=== PATIENT | female | born 1995 | race Caucasian/White ===

== ENCOUNTER 2022-11-15 11:16 | Outpatient (OUT) | payer OTHER, SELFPAY ==
--- NOTE | 2022-11-15 11:20 | US_ITS ---
The [address] [address] Patient Name: KRISSY LOPEZ MRN: [id number] date: 1995 Sex: F Assigned Patient Location: US Current Patient Location: US Accession/Order Number: [id number] Exam Date: 11/15/2022 11:25 Report Date: 11/19/2022 07:22 At the request of: MARY MARIE Procedure: US pelvis w/ transvaginal EXAMINATION: US pelvis w/ transvaginal HISTORY: Patient desires Z31.9 COMPARISON: No relevant comparison available. FINDINGS: The uterus is normal in size, contour and myometrial echotexture measuring 9.7 x 5.0 x 5.8 cm. Anteverted. No focal myometrial mass The endometrium measures 7 mm. Multiple dilated vessels identified in the left adnexa The right ovary measures 3.1 x 2.2 x 2.7 cm. Normal color and Doppler flow. Multiple subcentimeter areas of anechoic echogenicity distributed peripherally. Area of hypoechogenicity measuring 1.9 cm possibly a functional cyst The left ovary measures 3.2 x 2.7 x 1.9 cm. Normal color and Doppler flow. Multiple subcentimeter areas of anechoic echogenicity US/US pelvis w/ transvaginal IMPRESSION: Dilated left periuterine vessels consider uterine vein reflux/pelvic congestion syndrome Polycystic ovarian morphology Electronically authenticated by: HAMMAD FRAZIER Date: 11/19/2022 07:22
[2022-11-15 13:14] LABS: Estimated Average Glucose 97 mg/dL
[2022-11-15 13:21] LABS: Basophils Percent Auto 0.6 % (0.2-2.0); Eosinophils Absolute Auto 0.3 10^3/uL (0.0-0.7); Eosinophils Percent Auto 4.6 % (0.9-7.0); Hematocrit 36.5 % (36.0-48.0); Hemoglobin 12.1 g/dL (12.0-16.0); Immature Granulocytes Abs Auto 0.01 10^3/uL (0.00-0.03); Immature Granulocytes Pct Auto 0.2 % (0.0-0.5); Lymphocytes Absolute Auto 1.5 10^3/uL (1.2-3.8); Lymphocytes Percent Auto 28.2 % (20.5-60.0); Mean Corpuscular HGB Conc 33.2 g/dL (29.9-35.2); Mean Corpuscular Hemoglobin 27.3 pg (26.7-34.0); Mean Corpuscular Volume 82.4 fL (81.0-99.0); Mean Platelet Volume 9.9 fL (9.5-13.5); Monocytes Absolute Auto 0.7 10^3/uL (0.3-0.8); Monocytes Percent Auto 12.2 % (1.7-12.0); Neutrophils Absolute Auto 2.9 10^3/uL (1.4-6.5); Neutrophils Percent Auto 54.2 % (43.0-75.0); Platelet Count 286 10^3/uL (150-450); Red Blood Count 4.43 10^6/uL (4.20-5.40); Red Cell Distribution Width 13.2 % (11.0-15.0); White Blood Count 5.4 10^3/uL (4.0-11.0)
[2022-11-15 13:29] LABS: Free T4 0.84 ng/dL (0.76-1.46)
[2022-11-15 13:33] LABS: Thyroid Stimulating Hormone 4.621 uIU/mL (0.358-3.740)
[2022-11-17 12:07] LABS: Protein C-Functional 68 % (73-180); Protein S, Free 73 % (61-136); Protein S, Total 65 % (60-150)
== END 2022-11-15 11:17 | disposition home or self-care (01) ==
LOC: US 11:16
PROVIDERS: PCP Family Medicine; Visit Provider Obstetrics & Gynecology
DX: Z31.9 Encounter for procreative management, unspecified (principal)
CPT/HCPCS: 36415; 76830; 76856; 81241; 83036; 84155; 84439; 84443; 85025; 85300; 85301; 85303; 85305; 85306; 85613; 86146; 86147

== ENCOUNTER 2022-11-28 11:00 | Outpatient (RCR) | payer OTHER, SELFPAY ==
[2022-11-28 11:36] LABS: HCG Quantitative 572 mIU/mL
== END 2022-12-02 23:59 | disposition home or self-care (01) ==
LOC: LAB 11:00
PROVIDERS: PCP Family Medicine; Visit Provider Obstetrics & Gynecology
DX: N92.6 Irregular menstruation, unspecified (principal)
CPT/HCPCS: 36415; 84702

== ENCOUNTER 2022-12-04 12:17 | Outpatient (RCR) | payer OTHER, SELFPAY ==
[2022-12-04 13:48] LABS: HCG Quantitative 6386 mIU/mL
== END 2023-01-02 17:50 | disposition home or self-care (01) ==
LOC: LAB 12:17
PROVIDERS: PCP Family Medicine; Visit Provider Obstetrics & Gynecology
DX: Z01.419 Encounter for gynecological examination (general) (routine) without abnormal findings (principal); N92.6 Irregular menstruation, unspecified
CPT/HCPCS: 36415; 84702; G0145

== ENCOUNTER 2022-12-04 21:09 | Outpatient (REF) | payer OTHER, SELFPAY ==
[2022-12-10 15:10] LABS: Age Gdln ACOG Testing Note (.); IGP, rfx Aptima HPV ASCU Note (.)
== END 2022-12-04 21:10 | disposition home or self-care (01) ==
LOC: LAB 21:09
PROVIDERS: PCP Family Medicine; Visit Provider Obstetrics & Gynecology
DX: Z01.419 Encounter for gynecological examination (general) (routine) without abnormal findings (principal)
CPT/HCPCS: G0145

== ENCOUNTER 2023-01-03 11:14 | Outpatient (OUT) | payer OTHER, SELFPAY ==
--- NOTE | 2023-01-03 11:17 | US_ITS ---
[address] [address] Patient Name: KRISSY LOPEZ MRN: [id number] date: 1995 Sex: F Assigned Patient Location: US Current Patient Location: Accession/Order Number: [id number] Exam Date: 01/03/2023 11:34 Report Date: 01/04/2023 09:05 At the request of: MARY MARIE Procedure: US OB transvaginal PROCEDURE: US OB transvaginal HISTORY: Missed menses N92.6 COMPARISON: None. TECHNIQUE: Transabdominal sonographic examination was performed for obstetrical and evaluation. FINDINGS: Heart Rate: 175.3 bpm Number: 1.0 Gestational sac: 3.99 cm, 9 weeks 2 days CRL: 2.2 cm, 9 weeks 4 days Yolk sac: 3.8 mm The uterus is normal, anteverted The ovaries are normal in appearance Cervix: 4.1 cm, closed GESTATIONAL AGE: Clinical Age (by LMP): 9 weeks 6 days Clinical ADNE: 08/02/2023 Ultrasound Age: 9 weeks 4 days Ultrasound ADEN: 08/04/2023 US/US OB transvaginal IMPRESSION: Viable yepez intrauterine gestation measuring 9 weeks 4 days *Reference: [facility] Practice Guideline for the performance of Obstetric Ultrasound Examinations, February 02, 2007. Electronically authenticated by: HAMMAD FRAZIER Date: 01/04/2023 09:05
== END 2023-01-03 11:15 | disposition home or self-care (01) ==
LOC: US 11:14
PROVIDERS: PCP Family Medicine; Visit Provider Obstetrics & Gynecology
DX: Z34.91 Encounter for supervision of normal pregnancy, unspecified, first trimester (principal); N92.6 Irregular menstruation, unspecified
CPT/HCPCS: 76817

== ENCOUNTER 2023-02-05 09:29 | Outpatient (OUT) | payer OTHER, SELFPAY ==
[2023-02-05 09:59] LABS: BOX Test Sent Out Y
[2023-02-05 10:01] LABS: Basophils Percent Auto 0.4 % (0.2-2.0); Eosinophils Absolute Auto 0.2 10^3/uL (0.0-0.7); Eosinophils Percent Auto 2.8 % (0.9-7.0); Hematocrit 31.3 % (36.0-48.0); Hemoglobin 10.2 g/dL (12.0-16.0); Immature Granulocytes Abs Auto 0.02 10^3/uL (0.00-0.03); Immature Granulocytes Pct Auto 0.3 % (0.0-0.5); Lymphocytes Absolute Auto 1.5 10^3/uL (1.2-3.8); Lymphocytes Percent Auto 22.3 % (20.5-60.0); Mean Corpuscular HGB Conc 32.6 g/dL (29.9-35.2); Mean Platelet Volume 9.5 fL (9.5-13.5); Monocytes Absolute Auto 0.7 10^3/uL (0.3-0.8); Monocytes Percent Auto 10.9 % (1.7-12.0); Neutrophils Absolute Auto 4.2 10^3/uL (1.4-6.5); Neutrophils Percent Auto 63.3 % (43.0-75.0); Platelet Count 277 10^3/uL (150-450); Red Blood Count 3.64 10^6/uL (4.20-5.40); Red Cell Distribution Width 12.8 % (11.0-15.0); White Blood Count 6.7 10^3/uL (4.0-11.0)
[2023-02-05 10:15] LABS: Estimated Average Glucose 85 mg/dL; Glycohemoglobin A1C 4.6 % (4.5-6.2)
[2023-02-05 11:11] LABS: Thyroid Stimulating Hormone 6.722 uIU/mL (0.358-3.740)
[2023-02-06 06:09] LABS: HBsAg Screen Negative (Negative); HCV Ab Non Reactive (Non Reactive); HIV Ab/p24 Ag Screen Non Reactive (Non Reactive)
[2023-02-06 08:12] LABS: Rubella Antibodies, IgG 1.39 index (Immune >0.99)
[2023-02-06 12:09] LABS: Rapid Plasma Reagin, Quant Non Reactive titer (NonRea<1:1)
== END 2023-02-05 09:30 | disposition home or self-care (01) ==
LOC: LAB 09:30
PROVIDERS: PCP Family Medicine; Visit Provider Obstetrics & Gynecology
DX: Z34.80 Encounter for supervision of other normal pregnancy, unspecified trimester (principal)
CPT/HCPCS: 36415; 83036; 84443; 85025; 86592; 86762; 86803; 86850; 86900; 86901; 87086; 87340; 87389

== ENCOUNTER 2023-03-19 08:30 | Outpatient (OUT) | payer OTHER, SELFPAY ==
--- NOTE | 2023-03-19 08:33 | US_ITS ---
[address] [address] Patient Name: KRISSY LOPEZ MRN: [id number] date: 1995 Sex: F Assigned Patient Location: US Current Patient Location: CARD Accession/Order Number: [id number] Exam Date: 03/19/2023 08:34 Report Date: 03/19/2023 22:23 At the request of: MARY MARIE Procedure: US OB cervical length EXAMINATION: US OB anatomy, US OB cervical length HISTORY: ANATOMY COMPARISON: No relevant comparison available. TECHNIQUE: Transabdominal sonographic examination was performed for obstetrical and evaluation. FINDINGS: Number: 1 Heart Rate: 151.0 bpm H.B. /min Amniotic Fluid Volume: Subjectively normal Placental Location: ANT/FUND with lower margin 4.9 cm from os. Cervix Length: 6.4 cm; closed. ANATOMY: Normal Structures -cerebellum, choroid plexus, cisterna magna, lateral cerebral ventricles, orbits, midline falx, hard palate, four-chamber heart, RVOT, LVOT, stomach, kidneys, bladder, umbilical cord insertion into abdomen, three-vessel cord, cervical spine, thoracic spine, lumbar spine, sacral spine, right upper extremity, left upper extremity, right lower extremity, left lower extremity. SUBOPTIMALLY SEEN: None ABNORMALITIES: None BIOMETRY: BPD: 4.7 cm 20 weeks 1 days HC: 18.5 cm 20 weeks 6 days AC: 15.9 cm 21 weeks 0 days FL: 3.5 cm 21 weeks 1 days EFW:392.6 grams; ; 84% FL/AC: 22.2 FL/BPD: 74.9 HC/AC: 1.2 GESTATIONAL AGE: Age by EDC: 20 weeks 2 days ADEN by EDC: 08/04/2023 Age by current US: 20 weeks 6 days ADEN by current US: 07/31/2023 US/US OB cervical length IMPRESSION: 1. Single live intrauterine with growth detailed above. 2. Cisterna magna is borderline prominent, 7 mm. Electronically authenticated by: ERNST MURPHY Date: 03/19/2023 22:23
--- NOTE | 2023-03-19 08:33 | US_ITS ---
[address] [address] Patient Name: KRISSY LOPEZ MRN: [id number] date: 1995 Sex: F Assigned Patient Location: US Current Patient Location: CARD Accession/Order Number: [id number] Exam Date: 03/19/2023 08:34 Report Date: 03/19/2023 22:23 At the request of: MARY MARIE Procedure: US OB anatomy EXAMINATION: US OB anatomy, US OB cervical length HISTORY: ANATOMY COMPARISON: No relevant comparison available. TECHNIQUE: Transabdominal sonographic examination was performed for obstetrical and evaluation. FINDINGS: Number: 1 Heart Rate: 151.0 bpm H.B. /min Amniotic Fluid Volume: Subjectively normal Placental Location: ANT/FUND with lower margin 4.9 cm from os. Cervix Length: 6.4 cm; closed. ANATOMY: Normal Structures -cerebellum, choroid plexus, cisterna magna, lateral cerebral ventricles, orbits, midline falx, hard palate, four-chamber heart, RVOT, LVOT, stomach, kidneys, bladder, umbilical cord insertion into abdomen, three-vessel cord, cervical spine, thoracic spine, lumbar spine, sacral spine, right upper extremity, left upper extremity, right lower extremity, left lower extremity. SUBOPTIMALLY SEEN: None ABNORMALITIES: None BIOMETRY: BPD: 4.7 cm 20 weeks 1 days HC: 18.5 cm 20 weeks 6 days AC: 15.9 cm 21 weeks 0 days FL: 3.5 cm 21 weeks 1 days EFW:392.6 grams; ; 84% FL/AC: 22.2 FL/BPD: 74.9 HC/AC: 1.2 GESTATIONAL AGE: Age by EDC: 20 weeks 2 days ADEN by EDC: 08/04/2023 Age by current US: 20 weeks 6 days ADEN by current US: 07/31/2023 US/US OB anatomy IMPRESSION: 1. Single live intrauterine with growth detailed above. 2. Cisterna magna is borderline prominent, 7 mm. Electronically authenticated by: ERNST MURPHY Date: 03/19/2023 22:23
== END 2023-03-19 08:31 | disposition home or self-care (01) ==
LOC: US 08:31
PROVIDERS: PCP Family Medicine; Visit Provider Obstetrics & Gynecology
DX: O28.3 Abnormal ultrasonic finding on antenatal screening of mother (principal); Z3A.20 20 weeks gestation of pregnancy
CPT/HCPCS: 76805; 76817

== ENCOUNTER 2023-03-19 10:36 | Outpatient (OUT) | payer OTHER, SELFPAY ==
[2023-03-22 00:07] LABS: AFP Value 58.8 ng/mL (.); Gest. Age on Collection Date 20.3 weeks (.); Gestat. Age Based On As provided (.); Insulin Dep Diabetes No (.); Maternal Age At EDD 27.8 yr (.); OSBR Risk 1 IN See interpretation. (.); Results Report (.)
== END 2023-03-19 10:37 | disposition home or self-care (01) ==
LOC: LAB 10:36
PROVIDERS: PCP Family Medicine; Visit Provider Obstetrics & Gynecology
DX: Z34.92 Encounter for supervision of normal pregnancy, unspecified, second trimester (principal)
CPT/HCPCS: 36415; 82105

== ENCOUNTER 2023-03-19 10:36 | Outpatient (REF) | payer OTHER, SELFPAY ==
[2023-03-19 11:18] LABS: Thyroid Stimulating Hormone 3.369 uIU/mL (0.358-3.740)
== END 2023-03-19 10:37 | disposition home or self-care (01) ==
LOC: LAB 10:36
PROVIDERS: PCP Family Medicine; Visit Provider Physician Assistant
DX: E03.9 Hypothyroidism, unspecified (principal)
CPT/HCPCS: 36415; 84443

== ENCOUNTER 2023-03-19 12:27 | Outpatient (OUT) | payer OTHER, SELFPAY ==
--- NOTE | 2023-03-19 | ECG_ITS ---
The [facility] Test Date: 2023-03-19 Pat Name: KRISSY LOPEZ Department: Room: - Gender: Female Process Chemist: : 1995 Requested By: MARY MARIE Order Number: [id number] Reading MD: JEIMY MIMS Measurements Intervals [place] Rate: 99 P: 70 AR: 145 QRS: 71 QRSD: 91 T: 70 QT: 342 QTc: 439 Interpretive Statements SINUS RHYTHM POSSIBLE RIGHT VENTRICULAR CONDUCTION DELAY [RSR (QR) IN V1/V2] No previous ECG available for comparison Electronically Signed On 03-20-2023 6:56:48 EST by JEIMY MIMS
== END 2023-03-19 12:28 | disposition home or self-care (01) ==
LOC: CARD 12:28
PROVIDERS: PCP Family Medicine; Visit Provider Obstetrics & Gynecology
DX: Z34.92 Encounter for supervision of normal pregnancy, unspecified, second trimester (principal); O28.3 Abnormal ultrasonic finding on antenatal screening of mother; Z3A.20 20 weeks gestation of pregnancy; O99.282 Endocrine, nutritional and metabolic diseases complicating pregnancy, second trimester; E03.9 Hypothyroidism, unspecified; R00.2 Palpitations
CPT/HCPCS: 36415; 76805; 76817; 82105; 84443; 93005

== ENCOUNTER 2023-04-23 09:03 | Outpatient (OUT) | payer OTHER, SELFPAY ==
--- NOTE | 2023-04-23 09:08 | US_ITS ---
[address] [address] Patient Name: KRISSY LOPEZ MRN: [id number] date: 1995 Sex: F Assigned Patient Location: US Current Patient Location: LAB Accession/Order Number: [id number] Exam Date: 04/23/2023 09:09 Report Date: 04/23/2023 11:05 At the request of: MARY MARIE Procedure: US OB limited EXAMINATION: US OB limited HISTORY: PROMINENT CISTERNA MAGNA COMPARISON: No relevant comparison available. FINDINGS: Placenta: anterior Amniotic fluid: subjectively normal Cisterna Magna: 4.7 mm Heart rate: 155 bpm US/US OB limited IMPRESSION: Normal cisterna magna measuring 4.7mm Electronically authenticated by: HAMMAD FRAZIER Date: 04/23/2023 11:05
--- OUTSIDE RECORDS SUMMARY | 2023-04-23 09:31 | XMS_ITS | CCD ---
Author Name Unknown Address [facility] [address] [place] [address] Organization [employer] Care Team Providers Care Rubber Heel [employer] Sole Press Tender Name Role Phone FRANK, DR HERNANDEZ Admitting Unavailable FRANK, DR HERNANDEZ Attending Unavailable KARMA, DR LIZABETH Kauffman Primary Care Unavail able FRAKN, DR HERNANDEZ Admitting Unavailable FRANK, DR HERNANDEZ Attending Unavailable KARMA, DR LIZABETH Kauffman Primary Care Unavail able FRANK, DR HERNANDEZ Consulting Unavailable FRANK, DR HERNANDEZ Admitting Unavailable FRANK, DR HERNANDEZ Attending Unavailable KARMA, DR LIZABETH Kauffman Primary Care Unavail able FRANK, DR HERNANDEZ Consulting Unavailable FRANK, DR HERNANDEZ Admitting Unavailable FRANK, DR HERNANDEZ Attending Unavailable KARMA, DR LIZABETH Kauffman Primary Care Unavail able FRANK, DR HERNANDEZ Consulting Unavailable FRANK, DR HERNANDEZ Admitting Unavailable FRANK, DR HERNANDEZ Attending Unavailable KARMA, DR LIZABETH Kauffman Primary Care Unavail able FRANK, DR HERNANDEZ Consulting Unavailable FRANK, DR HERNANDEZ Admitting Unavailable FRANK, DR HERNANDEZ Attending Unavailable KARMA, DR LIZABETH Kauffman Primary Care Unavail able FRANK, DR HERNANDEZ Consulting Unavailable FRANK, DR HERNANDEZ Procedure Practitioner Unavailab TIM Bull Admitting Unavailable TIM YADAV Attending Unavailable KARMA, DR LIZABETH Kauffman Primary Care Unavail able TIM YADAV Consulting Unavailable FRANK, DR HERNANDEZ Admitting Unavailable FRANK, DR HERNANDEZ Attending Unavailable KARMA, DR LIZABETH Kauffman Primary Care Unavail able ALEXANDER GREER Attending Unavaila eusebio LAWLER, YOMAIRA GUILLEN Attending YOMAIRA Salvador Admitting UnavailYOMAIRA Ingram Attending UnavailYOMAIRA Ingram Consulting Unavailab JERRY Babin Attending Unavailable JERRY WALLS Attending Unavailable MARY MARIE Attending Unavailable Allergies Allergy Classification Reported Allergen(s) Allergy Type Date of Onset Reaction(s) Facility (2 sources) Latex; Translations: [LATEX] Drug allergy (disorder) 6 [facility] Repository (2 sources) Leucine; Translations: [NICKEL] Drug Allergy 7 [facility] Repository (2 sources) Penicillins; Translations: [PENICILLINS] Drug allergy (disorder) 7 [facility] Repository (1 source) Shellfish Drug allergy (disorder) 7 [facility] Repository (1 source) Iodine; Translations: [IODINE] Drug Allergy 3 [facility] Repository (1 source) SHELLFISH CONTAINING PRODUCTS; Translations: [SHELLFISH CONTAINING PRODUCTS] Propensity to adverse reactions to drug (disorder) 3 [facility] Repository (1 source) VENOM-HONEY BEE; Translations: [VENOM-HONEY BEE] Propensity to adverse reactions to drug (disorder) 3 [facility] Repository Problems Active Problems Problem Classification Problem Date Documented Date Episodic/Chronic Acute and chronic tonsillitis (2 sources) Chronic tonsillitis; Translations: [Chronic tonsillitis] Onset: 08-29-2022 Chronic Mood disorders (1 source) Mood disorders; Translations: [DEPRESSION UNSPECIFIED] Onset: 08-30-2021 Other nervous system disorders (2 sources) Other acute postprocedural pain; Translations: [Other acute postprocedural pain] Onset: 11-19-2022 Episodic Other screening for suspected conditions (not mental disorders or infectious disease) (13 sources) Encounter for screening for malignant neoplasm of cervix; Translations: [Abnormal cytological findings in specimens from other female genital organs] Onset: 06-19-2021 Episodic Residual codes; unclassified (2 sources) Acquired absence of other organs; Translations: [Acquired absence of other organs] Onset: 12-10-2022 Episodic Unclassified (1 source) CONTACT W/AND (SUSP) EXPOS COVID-19; Translations: [CONTACT W/AND (SUSP) EXPOS COVID-19] Onset: 08-30-2021 Viral infection (1 source) Herpesviral infection of urogenital system, unspecified; Translations: [HERPESVIRAL INF UROGENITAL SYS UNS] Onset: 08-30-2021 Chronic Past or Other Problems Problem Classification Problem Date Documented Date Episodic/Chronic Acute and chronic tonsillitis (4 sources) Peritonsillar abscess; Translations: [Acute tonsillitis, unspecified] Onset: 08-08-2022 Episodic Cancer of cervix (1 source) Low grade squamous intraepithelial lesion on cytologic smear of cervix (LGSIL); Translations: [LGSIL ON CYTOLOGIC SMEAR OF CERVIX] Onset: 11-15-2021 Episodic Other complications of ; puerperium affecting management of mother (3 sources) Other infections with a predominantly sexual mode of transmission complicating childbirth; Translations: [OTH INF SEXL TRNSMS COMP CHILDBIRTH] Onset: 08-19-2021 Episodic Other complications of ; puerperium affecting management of mother (1 source) Other mental disorders complicating childbirth; Translations: [OTH MENTAL D/O COMP CHILDBIRTH] Onset: 08-30-2021 Episodic Other complications of (4 sources) Other specified related conditions, third trimester; Translations: [OTH SPEC PREG RELATED COND 3RD TRI] Onset: 06-28-2021 Episodic Other and delivery including normal (9 sources) Encounter for care and examination of lactating mother; Translations: [Encounter for routine follow-up] Onset: 08-27-2021 Episodic Other skin disorders (2 sources) Localized swelling, mass and lump, neck; Translations: [Localized swelling, mass and lump, neck] Onset: 08-19-2022 Episodic Residual codes; unclassified (1 source) 38 weeks gestation of ; Translations: [38 WEEKS GESTATION OF ] Onset: 08-30-2021 Episodic Residual codes; unclassified (1 source) 31 weeks gestation of ; Translations: [31 WEEKS GESTATION OF ] Onset: 07-03-2021 Episodic Residual codes; unclassified (2 sources) Other specified postprocedural states; Translations: [Other specified postprocedural states] Onset: 08-29-2022 Episodic Results Test Name Value Interpretation Reference Range Facil ity HCG, Urineon 11-19-2022 Beta HCG ( test) Ql (U) Negative Normal [facility] Comment on above: Order Comment: The c alculated GFR uses the (IDMS)-traceable creatinine MDRD equation and is reported in mL/min/1.73 square meters. This formula is not recommended for use with individuals with unstable creatinine concentrations, extremes in muscle mass and/or body size, or alternative diets and may not be suitable for all patient populations. Testing performed at [facility], [address] [place] [id number] Result Comment: Note : This test provides only a presumptive diagnosis for . If the HCG result is inconsistent with clinical evidence, results should be confirmed with an alternative method, such as a quantitative HCG. Basic Metabolic Profileon ANIO 11 mmol/L Low 12-20 [facility] Comment on above: Order Comment: Testi ng performed at [facility], [address] [place] [address] [id number] Calcium [Mass/Vol] 9.5 mg/dL Normal 8.4-10.2 [facility] Comment on above: Order Comment: Testi ng performed at [facility], [address] [place] [address] 48601 Chloride [Moles/Vol] 107 mmol/L Normal 98-107 [facility] Comment on above: Order Comment: Testi ng performed at [facility], [address] [place] [address] 78407 CO2 [Moles/Vol] 23.0 mmol/L Normal 22.0-30.0 [facility] Comment on above: Order Comment: Testi ng performed at [facility], [address] [place] [address] 39130 Creatinine [Mass/Vol] 0.7 mg/dL Normal 0.6-1.2 [facility] Comment on above: Order Comment: Testi ng performed at [facility], [address] [place] [address] Glucose [Mass/Vol] 118 mg/dL High 74-106 [facility] Comment on above: Order Comment: Testi ng performed at [facility], [address] [place] [address] Potassium [Moles/Vol] 4.1 mmol/L Normal 3.3-4.9 [facility] Comment on above: Order Comment: Testi ng performed at [facility], [address] [place] [address] Sodium [Moles/Vol] 137 mmol/L Normal 137-145 [facility] Comment on above: Order Comment: Testi ng performed at [facility], [address] [place] [address] 61666 Urea nitrogen [Mass/Vol] 14 mg/dL Normal 8-19 [facility] Comment on above: Order Comment: Testi ng performed at [facility], [address] [place] [address] 46495 CBC w/Auto Diffon 08-19-2022 Basophils (Bld) [#/Vol] 0.04 10*3/uL Normal 0.00-0.10 [facility] Comment on above: Order Comment: Immature Gran parameters reflect the combination of Metas, Myelos, and Promyelocytes and should be used in conjunction with other current indicators for the diagnosis of infection/inflammation. Bands are not included in the Immature Gran parameters. They are included with the Neutrophil parameters. Nucleated RBCs are counted separately from the WBCs. Corrected WBC is no longer indicated. Testing performed at [facility], [address] [place] [address] [id number] Eosinophils (Bld) [#/Vol] 0.05 10*3/uL Normal 0.00-0.4 0 [facility] Comment on above: Order Comment: Immature Gran parameters reflect the combination of Metas, Myelos, and Promyelocytes and should be used in conjunction with other current indicators for the diagnosis of infection/inflammation. Bands are not included in the Immature Gran parameters. They are included with the Neutrophil parameters. Nucleated RBCs are counted separately from the WBCs. Corrected WBC is no longer indicated. Testing performed at [facility], [facility], [facility] [place] [address] Erythrocyte distribution wid th (RBC) [Ratio] 13.3 % Normal 11.7-14.4 [facility] Comment on above: Order Comment: Immature Gran parameters reflect the combination of Metas, Myelos, and Promyelocytes and should be used in conjunction with other current indicators for the diagnosis of infection/inflammation. Bands are not included in the Immature Gran parameters. They are included with the Neutrophil parameters. Nucleated RBCs are counted separately from the WBCs. Corrected WBC is no longer indicated. Testing performed at [facility], [address] [place] [phone] Hematocrit (Bld) [Volume fraction] 36.1 % Normal 34.1-44.9 [facility] Comment on above: Order Comment: Immature Gran parameters reflect the combination of Metas, Myelos, and Promyelocytes and should be used in conjunction with other current indicators for the diagnosis of infection/inflammation. Bands are not included in the Immature Gran parameters. They are included with the Neutrophil parameters. Nucleated RBCs are counted separately from the WBCs. Corrected WBC is no longer indicated. Testing performed at [facility], [address] [place] [address] 41656 Hemoglobin (Bld) [Mass/Vol] 12.0 g/dL Normal 11.2-15. 7 [facility] Comment on above: Order Comment: Immature Gran parameters reflect the combination of Metas, Myelos, and Promyelocytes and should be used in conjunction with other current indicators for the diagnosis of infection/inflammation. Bands are not included in the Immature Gran parameters. They are included with the Neutrophil parameters. Nucleated RBCs are counted separately from the WBCs. Corrected WBC is no longer indicated. Testing performed at [facility], [address] [place] [address] [id number] IG % (B) 0.6 % High 0.0-0.4 [facility] Comment on above: Order Comment: Immature Gran parameters reflect the combination of Metas, Myelos, and Promyelocytes and should be used in conjunction with other current indicators for the diagnosis of infection/inflammation. Bands are not included in the Immature Gran parameters. They are included with the Neutrophil parameters. Nucleated RBCs are counted separately from the WBCs. Corrected WBC is no longer indicated. Testing performed at [facility], [address] [place] [address] [id number] IG# (B) 0.14 10*3/uL High 0.00-0.00 [facility] Comment on above: Order Comment: Immature Gran parameters reflect the combination of Metas, Myelos, and Promyelocytes and should be used in conjunction with other current indicators for the diagnosis of infection/inflammation. Bands are not included in the Immature Gran parameters. They are included with the Neutrophil parameters. Nucleated RBCs are counted separately from the WBCs. Corrected WBC is no longer indicated. Testing performed at [facility], [address] [place] [address] [id number] Lymphocytes (Bld) [#/Vol] 0.81 10*3/uL Low 1.20-3.7 0 [facility] Comment on above: Order Comment: Immature Gran parameters reflect the combination of Metas, Myelos, and Promyelocytes and should be used in conjunction with other current indicators for the diagnosis of infection/inflammation. Bands are not included in the Immature Gran parameters. They are included with the Neutrophil parameters. Nucleated RBCs are counted separately from the WBCs. Corrected WBC is no longer indicated. Testing performed at [facility], [address] [place] [address] [phone] MCH (RBC) [Entitic mass] 28.5 pg Normal 25.6-32.2 [facility] Comment on above: Order Comment: Immature Gran parameters reflect the combination of Metas, Myelos, and Promyelocytes and should be used in conjunction with other current indicators for the diagnosis of infection/inflammation. Bands are not included in the Immature Gran parameters. They are included with the Neutrophil parameters. Nucleated RBCs are counted separately from the WBCs. Corrected WBC is no longer indicated. Testing performed at [facility], [address] [place] [address] [phone] MCHC (RBC) [Mass/Vol] 33.2 g/dL Normal 32.2-35.5 [facility] Comment on above: Order Comment: Immature Gran parameters reflect the combination of Metas, Myelos, and Promyelocytes and should be used in conjunction with other current indicators for the diagnosis of infection/inflammation. Bands are not included in the Immature Gran parameters. They are included with the Neutrophil parameters. Nucleated RBCs are counted separately from the WBCs. Corrected WBC is no longer indicated. Testing performed at [facility], [address] [place] [address] [phone] MCV (RBC) [Entitic vol] 85.7 fL Normal 79.4-94.8 [facility] Comment on above: Order Comment: Immature Gran parameters reflect the combination of Metas, Myelos, and Promyelocytes and should be used in conjunction with other current indicators for the diagnosis of infection/inflammation. Bands are not included in the Immature Gran parameters. They are included with the Neutrophil parameters. Nucleated RBCs are counted separately from the WBCs. Corrected WBC is no longer indicated. Testing performed at [facility], [address] [place] [address] [id number] Monocytes (Bld) [#/Vol] 1.81 10*3/uL High 0.20-0.90 [facility] Comment on above: Order Comment: Immature Gran parameters reflect the combination of Metas, Myelos, and Promyelocytes and should be used in conjunction with other current indicators for the diagnosis of infection/inflammation. Bands are not included in the Immature Gran parameters. They are included with the Neutrophil parameters. Nucleated RBCs are counted separately from the WBCs. Corrected WBC is no longer indicated. Testing performed at [facility], [address] [place] [address] [phone] Neutrophils (Bld) [#/Vol] 20.04 10*3/uL High 1.60-6. 10 [facility] Comment on above: Order Comment: Immature Gran parameters reflect the combination of Metas, Myelos, and Promyelocytes and should be used in conjunction with other current indicators for the diagnosis of infection/inflammation. Bands are not included in the Immature Gran parameters. They are included with the Neutrophil parameters. Nucleated RBCs are counted separately from the WBCs. Corrected WBC is no longer indicated. Testing performed at [facility], [address] [place] [address] [phone] NRBC % (B) 0.0 /100{WBC} Normal 0.0-0.2 [facility] Comment on above: Order Comment: Immature Gran parameters reflect the combination of Metas, Myelos, and Promyelocytes and should be used in conjunction with other current indicators for the diagnosis of infection/inflammation. Bands are not included in the Immature Gran parameters. They are included with the Neutrophil parameters. Nucleated RBCs are counted separately from the WBCs. Corrected WBC is no longer indicated. Testing performed at [facility], [address] [place] [address] [id number] NRBC# (B) 0.00 10*3/uL Normal 0.00-0.00 [facility] Comment on above: Order Comment: Immature Gran parameters reflect the combination of Metas, Myelos, and Promyelocytes and should be used in conjunction with other current indicators for the diagnosis of infection/inflammation. Bands are not included in the Immature Gran parameters. They are included with the Neutrophil parameters. Nucleated RBCs are counted separately from the WBCs. Corrected WBC is no longer indicated. Testing performed at [facility], [address] [place] [address] [id number] Platelet mean volume (Bld) [Entitic vol] 9.9 fL Normal 9.4-12.3 [facility] Comment on above: Order Comment: Immature Gran parameters reflect the combination of Metas, Myelos, and Promyelocytes and should be used in conjunction with other current indicators for the diagnosis of infection/inflammation. Bands are not included in the Immature Gran parameters. They are included with the Neutrophil parameters. Nucleated RBCs are counted separately from the WBCs. Corrected WBC is no longer indicated. Testing performed at [facility], [address] [place] [address] [phone] Platelets (Bld) [#/Vol] 267 10*3/uL Normal 182-369 [facility] Comment on above: Order Comment: Immature Gran parameters reflect the combination of Metas, Myelos, and Promyelocytes and should be used in conjunction with other current indicators for the diagnosis of infection/inflammation. Bands are not included in the Immature Gran parameters. They are included with the Neutrophil parameters. Nucleated RBCs are counted separately from the WBCs. Corrected WBC is no longer indicated. Testing performed at [facility], [address] [place] [address] [id number] RBC (Bld) [#/Vol] 4.21 10*6/uL Normal 3.93-5.22 [facility] Comment on above: Order Comment: Immature Gran parameters reflect the combination of Metas, Myelos, and Promyelocytes and should be used in conjunction with other current indicators for the diagnosis of infection/inflammation. Bands are not included in the Immature Gran parameters. They are included with the Neutrophil parameters. Nucleated RBCs are counted separately from the WBCs. Corrected WBC is no longer indicated. Testing performed at [facility], [address] [place] [address] [id number] RDW-SD (B) 41.1 fL Normal 36.4-46.3 [facility] Comment on above: Order Comment: Immature Gran parameters reflect the combination of Metas, Myelos, and Promyelocytes and should be used in conjunction with other current indicators for the diagnosis of infection/inflammation. Bands are not included in the Immature Gran parameters. They are included with the Neutrophil parameters. Nucleated RBCs are counted separately from the WBCs. Corrected WBC is no longer indicated. Testing performed at [facility], [address] [place] [address] [phone] WBC (Bld) [#/Vol] 22.9 10*3/uL High 4.0-10.0 [facility] Comment on above: Order Comment: Immature Gran parameters reflect the combination of Metas, Myelos, and Promyelocytes and should be used in conjunction with other current indicators for the diagnosis of infection/inflammation. Bands are not included in the Immature Gran parameters. They are included with the Neutrophil parameters. Nucleated RBCs are counted separately from the WBCs. Corrected WBC is no longer indicated. Testing performed at [facility], [address] [place] [id number] NECK WITHOUT CONTRASTon 0 08-19-2022 CT NECK WITHOUT CONTRAST Patient Name: KRISSY LOPEZ Patient Patient : 1995 Examination: CT NECK WITHOUT CONTRAST Date of Exam: 08/19/2022 12:59 PM Ordering Provider: JERRY WALLS MD Comparison: 08/08/2022 Relevant Clinical Information: Recent dental procedure July 13, recent oral infections. Additional History: Neck swelling CONTRAST: None. TECHNIQUE: Axial imaging of the neck without intravenous contrast. Sagittal and coronal reformat reformats were performed. This CT exam was performed using one or more of the following dose reduction techniques: automated exposure control, adjustment of the mA and/or kV according to patient size, or use of iterative reconstruction technique. DISCUSSION: Examination is significantly limited without IV contrast. Again seen is marked enlargement of the right pharyngeal tonsil which is diffusely hypodense. There appears to be a focal lesion or collection within the tonsil which is centrally hypodense and shows a rim of soft tissue which measures approximately 22 x 18 mm (image 46, series 2). This has increased since recent prior study and results in mass effect upon the airway which also appears progressed. There are multiple prominent lymph nodes throughout the neck bilaterally, with a right jugulodigastric node measuring at least 15 mm in short axis (image 55, series 2). Index left jugulodigastric node measures at least 11 mm in short axis (image 51, series 2), not significantly changed. Submandibular and parotid glands are unremarkable for noncontrast technique. Globes, extraocular muscles, and retro-orbital spaces are preserved. Mild mucosal thickening of the right maxillary sinus. IMPRESSION: 1. Limited study without IV contrast. 2. Progressive asymmetric enlargement/thickening of the right pharyngeal tonsil with findings concerning for abscess versus phlegmon centrally. This is increased in size since recent prior and results in increased mass effect on the airway. 3. Bilateral cervical lymphadenopathy which may be reactive. Clinical correlation and follow-up recommended. 4. Other findings as above. Professional Interpretation by Radiology This report was generated entirely using voice recognition software. If you have any questions or concerns, please contact the facility radiology department. Electronically Signed By: Shu Salinas MD On: 08/19/2022 1:25 PM Normal [facility] EST Glomerular Filtration Ra jude 08-19-2022 EAGFR (B) >60 Normal >60 [facility] Comment on above: Order Comment: The c alculated GFR uses the (IDMS)-traceable creatinine MDRD equation and is reported in mL/min/1.73 square meters. This formula is not recommended for use with individuals with unstable creatinine concentrations, extremes in muscle mass and/or body size, or alternative diets and may not be suitable for all patient populations. Testing performed at [facility], [address] [place] [address] [id number] Result Comment: The reported eGFR is based on a non- patient, for Americans multiply the result by 1.212. HCG, Serumon 08-19-2022 HCGS Negative Normal [facility] Comment on above: Order Comment: Testi ng performed at [facility], [address] [place] [address] Result Comment: Note : This test provides only a presumptive diagnosis for . If the HCG result is inconsistent with clinical evidence, results should be confirmed with an alternative method, such as a quantitative HCG. Man Diffon 08-19-2022 Eos, Diff 2 % Normal 0-6 [facility] Comment on above: Order Comment: Testi ng performed at [facility], [address] [place] [address] Lymphocytes/100 WBC (Bld) 3 % Low 20-53 [facility] Comment on above: Order Comment: Testi ng performed at [facility], [address] [place] [address] [place], Diff 6 % Normal 5-12 [facility] Comment on above: Order Comment: Testi ng performed at [facility], [facility]ly [facility], [facility] [place] [address] Segs. Diff 89 % High 34-70 [facility] Comment on above: Order Comment: Testi ng performed at [facility], [address] [place] [address] Slide Scan Normal Normal Normal [facility] Comment on above: Order Comment: Testi ng performed at [facility], [address] [place] [address] Basic Metabolic Profileon ANIO 12 mmol/L Normal 12-20 [facility] Comment on above: Order Comment: Testi ng performed at [facility], [address] [place] [address] Calcium [Mass/Vol] 9.1 mg/dL Normal 8.4-10.2 [facility] Comment on above: Order Comment: Testi ng performed at [facility], [address] [place] [address] Chloride [Moles/Vol] 106 mmol/L Normal 98-107 [facility] Comment on above: Order Comment: [facility] [address] [place] [address] CO2 [Moles/Vol] 27.0 mmol/L Normal 22.0-30.0 [facility] Comment on above: Order Comment: [facility], [address] [place] [address] Creatinine [Mass/Vol] 0.6 mg/dL Normal 0.6-1.2 [facility] Comment on above: Order Comment: Testi ng performed at [facility], [address] [place] [address] Glucose [Mass/Vol] 95 mg/dL Normal 74-106 [facility] Comment on above: Order Comment: [facility], [facility], [facility] [place] [address] Potassium [Moles/Vol] 4.1 mmol/L Normal 3.3-4.9 [facility] Comment on above: Order Comment: [facility], [address] [place] [address] Sodium [Moles/Vol] 141 mmol/L Normal 137-145 [facility] Comment on above: Order Comment: [facility], [facility], [facility] [place] [address] Urea nitrogen [Mass/Vol] 9 mg/dL Normal 8-19 [facility] Comment on above: Order Comment: [facility], [address] [place] [address] CBC w/Auto Diffon 08-08-2022 Basophils (Bld) [#/Vol] 0.04 10*3/uL Normal 0.00-0.10 [facility] Comment on above: Order Comment: Immature Gran parameters reflect the combination of Metas, Myelos, and Promyelocytes and should be used in conjunction with other current indicators for the diagnosis of infection/inflammation. Bands are not included in the Immature Gran parameters. They are included with the Neutrophil parameters. Nucleated RBCs are counted separately from the WBCs. Corrected WBC is no longer indicated. Testing performed at [facility], [address] [place] [id number] Basophils/100 WBC (Bld) 0.4 % Normal 0.1-1.2 [facility] Comment on above: Order Comment: Immature Gran parameters reflect the combination of Metas, Myelos, and Promyelocytes and should be used in conjunction with other current indicators for the diagnosis of infection/inflammation. Bands are not included in the Immature Gran parameters. They are included with the Neutrophil parameters. Nucleated RBCs are counted separately from the WBCs. Corrected WBC is no longer indicated. Testing performed at [facility], [address] [place] [phone] Eosinophils (Bld) [#/Vol] 0.21 10*3/uL Normal 0.00-0.4 0 [facility] Comment on above: Order Comment: Immature Gran parameters reflect the combination of Metas, Myelos, and Promyelocytes and should be used in conjunction with other current indicators for the diagnosis of infection/inflammation. Bands are not included in the Immature Gran parameters. They are included with the Neutrophil parameters. Nucleated RBCs are counted separately from the WBCs. Corrected WBC is no longer indicated. Testing performed at [facility], [address] [place] [address] Eosinophils/100 WBC (Bld) 2.1 % Normal 0.7-5.8 [facility] Comment on above: Order Comment: Immature Gran parameters reflect the combination of Metas, Myelos, and Promyelocytes and should be used in conjunction with other current indicators for the diagnosis of infection/inflammation. Bands are not included in the Immature Gran parameters. They are included with the Neutrophil parameters. Nucleated RBCs are counted separately from the WBCs. Corrected WBC is no longer indicated. Testing performed at [facility], [address] [place] [address] Erythrocyte distribution wid th (RBC) [Ratio] 12.9 % Normal 11.7-14.4 [facility] Comment on above: Order Comment: Immature Gran parameters reflect the combination of Metas, Myelos, and Promyelocytes and should be used in conjunction with other current indicators for the diagnosis of infection/inflammation. Bands are not included in the Immature Gran parameters. They are included with the Neutrophil parameters. Nucleated RBCs are counted separately from the WBCs. Corrected WBC is no longer indicated. Testing performed at [facility], [address] [place] [address] Hematocrit (Bld) [Volume fraction] 35.4 % Normal 34.1-44.9 [facility] Comment on above: Order Comment: Immature Gran parameters reflect the combination of Metas, Myelos, and Promyelocytes and should be used in conjunction with other current indicators for the diagnosis of infection/inflammation. Bands are not included in the Immature Gran parameters. They are included with the Neutrophil parameters. Nucleated RBCs are counted separately from the WBCs. Corrected WBC is no longer indicated. Testing performed at [facility], [address] [place] [address] Hemoglobin (Bld) [Mass/Vol] 11.2 g/dL Normal 11.2-15. 7 [facility] Comment on above: Order Comment: Immature Gran parameters reflect the combination of Metas, Myelos, and Promyelocytes and should be used in conjunction with other current indicators for the diagnosis of infection/inflammation. Bands are not included in the Immature Gran parameters. They are included with the Neutrophil parameters. Nucleated RBCs are counted separately from the WBCs. Corrected WBC is no longer indicated. Testing performed at [facility], [address] [place] [address] IG % (B) 0.4 % Normal 0.0-0.4 [facility] Comment on above: Order Comment: Immature Gran parameters reflect the combination of Metas, Myelos, and Promyelocytes and should be used in conjunction with other current indicators for the diagnosis of infection/inflammation. Bands are not included in the Immature Gran parameters. They are included with the Neutrophil parameters. Nucleated RBCs are counted separately from the WBCs. Corrected WBC is no longer indicated. Testing performed at [facility], [address] [place] [id number] IG# (B) 0.04 10*3/uL High 0.00-0.00 [facility] Comment on above: Order Comment: Immature Gran parameters reflect the combination of Metas, Myelos, and Promyelocytes and should be used in conjunction with other current indicators for the diagnosis of infection/inflammation. Bands are not included in the Immature Gran parameters. They are included with the Neutrophil parameters. Nucleated RBCs are counted separately from the WBCs. Corrected WBC is no longer indicated. Testing performed at [facility], [address] [place] [address] Lymphocytes (Bld) [#/Vol] 1.60 10*3/uL Normal 1.20-3.7 0 [facility] Comment on above: Order Comment: Immature Gran parameters reflect the combination of Metas, Myelos, and Promyelocytes and should be used in conjunction with other current indicators for the diagnosis of infection/inflammation. Bands are not included in the Immature Gran parameters. They are included with the Neutrophil parameters. Nucleated RBCs are counted separately from the WBCs. Corrected WBC is no longer indicated. Testing performed at [facility], [address] [place] [address] Lymphocytes/100 WBC (Bld) 16.3 % Low 19.3-51.7 [facility] Comment on above: Order Comment: Immature Gran parameters reflect the combination of Metas, Myelos, and Promyelocytes and should be used in conjunction with other current indicators for the diagnosis of infection/inflammation. Bands are not included in the Immature Gran parameters. They are included with the Neutrophil parameters. Nucleated RBCs are counted separately from the WBCs. Corrected WBC is no longer indicated. Testing performed at [facility], [address] [place] [address] MCH (RBC) [Entitic mass] 27.7 pg Normal 25.6-32.2 [facility] Comment on above: Order Comment: Immature Gran parameters reflect the combination of Metas, Myelos, and Promyelocytes and should be used in conjunction with other current indicators for the diagnosis of infection/inflammation. Bands are not included in the Immature Gran parameters. They are included with the Neutrophil parameters. Nucleated RBCs are counted separately from the WBCs. Corrected WBC is no longer indicated. Testing performed at [facility], [address] [place] [address] MCHC (RBC) [Mass/Vol] 31.6 g/dL Low 32.2-35.5 [facility] Comment on above: Order Comment: Immature Gran parameters reflect the combination of Metas, Myelos, and Promyelocytes and should be used in conjunction with other current indicators for the diagnosis of infection/inflammation. Bands are not included in the Immature Gran parameters. They are included with the Neutrophil parameters. Nucleated RBCs are counted separately from the WBCs. Corrected WBC is no longer indicated. Testing performed at [facility], [address] [place] [address] MCV (RBC) [Entitic vol] 87.4 fL Normal 79.4-94.8 [facility] Comment on above: Order Comment: Immature Gran parameters reflect the combination of Metas, Myelos, and Promyelocytes and should be used in conjunction with other current indicators for the diagnosis of infection/inflammation. Bands are not included in the Immature Gran parameters. They are included with the Neutrophil parameters. Nucleated RBCs are counted separately from the WBCs. Corrected WBC is no longer indicated. Testing performed at [facility], [address] [place] [address] Monocytes (Bld) [#/Vol] 0.88 10*3/uL Normal 0.20-0.90 [facility] Comment on above: Order Comment: Immature Gran parameters reflect the combination of Metas, Myelos, and Promyelocytes and should be used in conjunction with other current indicators for the diagnosis of infection/inflammation. Bands are not included in the Immature Gran parameters. They are included with the Neutrophil parameters. Nucleated RBCs are counted separately from the WBCs. Corrected WBC is no longer indicated. Testing performed at [facility], [address] [place] [address] Monocytes/100 WBC (Bld) 8.9 % Normal 4.7-12.5 [facility] Comment on above: Order Comment: Immature Gran parameters reflect the combination of Metas, Myelos, and Promyelocytes and should be used in conjunction with other current indicators for the diagnosis of infection/inflammation. Bands are not included in the Immature Gran parameters. They are included with the Neutrophil parameters. Nucleated RBCs are counted separately from the WBCs. Corrected WBC is no longer indicated. Testing performed at [facility], [address] [place] [address] Neutrophils (Bld) [#/Vol] 7.07 10*3/uL High 1.60-6.1 0 [facility] Comment on above: Order Comment: Immature Gran parameters reflect the combination of Metas, Myelos, and Promyelocytes and should be used in conjunction with other current indicators for the diagnosis of infection/inflammation. Bands are not included in the Immature Gran parameters. They are included with the Neutrophil parameters. Nucleated RBCs are counted separately from the WBCs. Corrected WBC is no longer indicated. Testing performed at [facility], [address] [place] [address] Neutrophils/100 WBC (Bld) 71.9 % High 34.0-71.1 [facility] Comment on above: Order Comment: Immature Gran parameters reflect the combination of Metas, Myelos, and Promyelocytes and should be used in conjunction with other current indicators for the diagnosis of infection/inflammation. Bands are not included in the Immature Gran parameters. They are included with the Neutrophil parameters. Nucleated RBCs are counted separately from the WBCs. Corrected WBC is no longer indicated. Testing performed at [facility], [address] [place] [phone] NRBC % (B) 0.0 /100{WBC} Normal 0.0-0.2 [facility] Comment on above: Order Comment: Immature Gran parameters reflect the combination of Metas, Myelos, and Promyelocytes and should be used in conjunction with other current indicators for the diagnosis of infection/inflammation. Bands are not included in the Immature Gran parameters. They are included with the Neutrophil parameters. Nucleated RBCs are counted separately from the WBCs. Corrected WBC is no longer indicated. Testing performed at [facility], [address] [place] [phone] NRBC# (B) 0.00 10*3/uL Normal 0.00-0.00 [facility] Comment on above: Order Comment: Immature Gran parameters reflect the combination of Metas, Myelos, and Promyelocytes and should be used in conjunction with other current indicators for the diagnosis of infection/inflammation. Bands are not included in the Immature Gran parameters. They are included with the Neutrophil parameters. Nucleated RBCs are counted separately from the WBCs. Corrected WBC is no longer indicated. Testing performed at [facility], [address] [place] [id number] Platelet mean volume (Bld) [Entitic vol] 9.2 fL Low 9.4-12.3 [facility] Comment on above: Order Comment: Immature Gran parameters reflect the combination of Metas, Myelos, and Promyelocytes and should be used in conjunction with other current indicators for the diagnosis of infection/inflammation. Bands are not included in the Immature Gran parameters. They are included with the Neutrophil parameters. Nucleated RBCs are counted separately from the WBCs. Corrected WBC is no longer indicated. Testing performed at [facility], [address] [place] [id number] Platelets (Bld) [#/Vol] 315 10*3/uL Normal 182-369 [facility] Comment on above: Order Comment: Immature Gran parameters reflect the combination of Metas, Myelos, and Promyelocytes and should be used in conjunction with other current indicators for the diagnosis of infection/inflammation. Bands are not included in the Immature Gran parameters. They are included with the Neutrophil parameters. Nucleated RBCs are counted separately from the WBCs. Corrected WBC is no longer indicated. Testing performed at [facility], [address] [place] [id number] RBC (Bld) [#/Vol] 4.05 10*6/uL Normal 3.93-5.22 [facility] Comment on above: Order Comment: Immature Gran parameters reflect the combination of Metas, Myelos, and Promyelocytes and should be used in conjunction with other current indicators for the diagnosis of infection/inflammation. Bands are not included in the Immature Gran parameters. They are included with the Neutrophil parameters. Nucleated RBCs are counted separately from the WBCs. Corrected WBC is no longer indicated. Testing performed at [facility], [address] [place] [address]32 RDW-SD (B) 41.0 fL Normal 36.4-46.3 [facility] Comment on above: Order Comment: Immature Gran parameters reflect the combination of Metas, Myelos, and Promyelocytes and should be used in conjunction with other current indicators for the diagnosis of infection/inflammation. Bands are not included in the Immature Gran parameters. They are included with the Neutrophil parameters. Nucleated RBCs are counted separately from the WBCs. Corrected WBC is no longer indicated. Testing performed at [facility], [address] [place] [phone] WBC (Bld) [#/Vol] 9.8 10*3/uL Normal 4.0-10.0 [facility] Comment on above: Order Comment: Immature Gran parameters reflect the combination of Metas, Myelos, and Promyelocytes and should be used in conjunction with other current indicators for the diagnosis of infection/inflammation. Bands are not included in the Immature Gran parameters. They are included with the Neutrophil parameters. Nucleated RBCs are counted separately from the WBCs. Corrected WBC is no longer indicated. Testing performed at [facility], [address] [place] [id number] NECK WITHOUT CONTRASTon 0 08-08-2022 CT NECK WITHOUT CONTRAST Patient Name: KRISSY LOPEZ Patient Patient : 1995 Examination: CT NECK WITHOUT CONTRAST Date of Exam: 08/08/2022 3:05 PM Ordering Provider: JERRY WALLS MD Comparison: None Relevant Clinical Information: right sided swelling x 4 days Additional History: Tonsillitis CONTRAST: None. TECHNIQUE: Axial imaging of the neck without intravenous contrast. Sagittal and coronal reformat reformats were performed. This CT exam was performed using one or more of the following dose reduction techniques: automated exposure control, adjustment of the mA and/or kV according to patient size, or use of iterative reconstruction technique. DISCUSSION: Pharynx: There is asymmetric enlargement of right pharyngeal tonsil. There is an area of decreased attenuation within the right pharyngeal tonsil measuring 16 mm in diameter on axial image 34. Findings could represents phlegmon or developing abscess at this level. Evaluation is limited in the absence of intravenous contrast. There is some parapharyngeal edema as well. Larynx: Unremarkable. Proximal trachea: Unremarkable. Neck spaces: There is some loss of fat plane within the right parapharyngeal region which may be related to parapharyngeal edema. Thyroid gland: Normal. Lymph nodes: There are multiple bilateral cervical lymph nodes. Lymph nodes measure up to 11 mm in short axis on the right side. Lymph nodes measure up to 11 mm in short axis on the left side. Findings likely are present reactive adenopathy. Bones: Normal for age. Lung: Unremarkable visualized. Intracranial: Partially visualized intracranial contents and skull base unremarkable. Orbits: Unremarkable. Paranasal sinuses and mastoids: Clear. Vessels: Not well evaluated in the absence of intravenous contrast IMPRESSION: 1. Examination is limited in the absence of intravenous contrast. 2. There is asymmetric enlargement of the right pharyngeal tonsil. Within the region of the right pharyngeal tonsil there is an area of decreased attenuation measuring up to 16 mm in size. Findings may represent phlegmon or developing abscess in this region. This is not well evaluated in the absence of intravenous contrast. 3. Bilateral cervical adenopathy, likely reactive change. Professional Interpretation by Radiology This report was generated entirely using voice recognition software. If you have any questions or concerns, please contact the facility radiology department. Electronically Signed By: Agustin Schultz MD On: 08/08/2022 4:07 PM Normal [facility] EST Glomerular Filtration Ra jude 08-08-2022 EAGFR (B) >60 Normal >60 [facility] Comment on above: Order Comment: The c alculated GFR uses the (IDMS)-traceable creatinine MDRD equation and is reported in mL/min/1.73 square meters. This formula is not recommended for use with individuals with unstable creatinine concentrations, extremes in muscle mass and/or body size, or alternative diets and may not be suitable for all patient populations. Testing performed at [facility], [address] [place] [address] Result Comment: The reported eGFR is based on a non- patient, for Americans multiply the result by 1.212. Pap IG, rfx Aptima HPV, rfx 16/18,45on 06-11-2022 . . Normal [facility] Comment on above: Result Comment: Perf ormed at: WB Performed By: #### P APHR2A #### [facility] [address] [place] [address] Dr. [facility] DIAGNOSIS: Comment Normal [facility] Comment on above: Result Comment: NEGA TIVE FOR INTRAEPITHELIAL LESION OR MALIGNANCY. Performed at: WB Performed By: #### P APHR2A #### [facility] [address] [place] [address] Dr. Jose [facility] HPV Aptima Negative Normal Negative [facility] Comment on above: Result Comment: This nucleic acid amplification test detects fourteen high-risk HPV types (16,18,31,33,35,39,45,51,52,56,58,59,66,68) without differentiation. Performed at: =G Performed By: #### P APHR2A #### [facility] [address] [address] [address] [facility] HPV Genotype Reflex Comment Normal [facility] Comment on above: Result Comment: Crit erbarbie not met, HPV Genotype not performed. Performed at: WB Performed By: #### P APHR2A #### [facility] [address] [address] [address] Jose [facility] Methodology: Comment Normal [facility] Comment on above: Result Comment: This liquid based ThinPrep(R) pap test was screened with the use of an image guided system. Performed at: WB Performed By: #### P APHR2A #### [facility] [address] [address] [address] Jose [facility] Note: Comment Normal [facility] Comment on above: Result Comment: The Pap smear is a screening test designed to aid in the detection of premalignant and malignant conditions of the uterine cervix. It is not a diagnostic procedure and should not be used as the sole means of detecting cervical cancer. Both false-positive and false-negative reports do occur. . Performed at: WB Performed By: #### P APHR2A #### [facility] [address] [address] [address] Jose [facility] Performed by: Comment Normal [facility] Comment on above: Result Comment: Koffi Hutchinson, Plastics Patternmaker (ASCP) Performed at: WB Performed By: #### P APHR2A #### [facility] [address] [address] [address] [facility] Specimen adequacy: Comment Normal [facility] Comment on above: Result Comment: Sati sfactory for evaluation. Endocervical and/or squamous metaplastic cells (endocervical component) are present. Performed at: WB Performed By: #### P APHR2A #### [facility] [address] [place] [address] Dr. Jose [facility]as [facility] PAP ACOG PANEL 2: 21 to 29on 11-20-2021 . . Normal [facility] Comment on above: Performed By: #### [id number] #### [facility] [address] [place] [address] Dr. Jose [facility]as [facility] Age Gdln ACOG Testing - Normal [facility] Comment on above: Performed By: #### [id number] #### [facility] [address] [place] [address] Dr. Jose Elias Strong DIAGNOSIS: Comment Normal [facility] Comment on above: Result Comment: NEGA TIVE FOR INTRAEPITHELIAL LESION OR MALIGNANCY. REACTIVE CELLULAR CHANGES AND/OR REPAIR ARE PRESENT. Performed By: #### [id number] #### [facility] [address] [place] [address] Dr. Jose Elias Strong Electronically signed by: Comment Normal [facility] Comment on above: Result Comment: Melinda Patel MD, Pathologist Performed By: #### [id number] #### [facility] [address] [place] [address] Dr. Jose Elias Strong Methodology: Comment [facility] Comment on above: Result Comment: This liquid based ThinPrep(R) pap test was screened with the use of an image guided system. Performed By: #### [id number] #### [facility] [address] [place] [address] Dr. Jose Elias Strong Note: Comment Normal [facility] Comment on above: Result Comment: The Pap smear is a screening test designed to aid in the detection of premalignant and malignant conditions of the uterine cervix. It is not a diagnostic procedure and should not be used as the sole means of detecting cervical cancer. Both false-positive and false-negative reports do occur. . Performed By: #### [id number] #### [facility] [address] [place] [address] Dr. Jose Elias Strong Performed by: Comment Normal [facility] Comment on above: Result Comment: Lilian [employer] (ASCP) Performed By: #### [id number] #### [facility] [address] [place] [address] Dr. Jose Elias Strong Reflex Criteria: Comment Normal [facility] Comment on above: Result Comment: The HPV DNA reflex criteria were not met with this specimen result therefore, no HPV testing was performed. . Performed By: #### [id number] #### [facility] [address] [place] [address] Dr. Jose Elias Strong Specimen adequacy: Comment Normal [facility] Comment on above: Result Comment: Sati sfactory for evaluation. Endocervical and/or squamous metaplastic cells (endocervical component) are present. Performed By: #### [id number] #### [facility] [address] [place] [address] Dr. Jose Elias Strong CBC W MANUAL DIFFon 08-21-19 22 ANISOCYTOSIS 1+ Normal [facility] Comment on above: Performed By: #### T NS #### [facility] [address] [place] [address] Dr. Jose Elias Strong ATYPICAL LYMPH # Normal [facility] Comment on above: Performed By: #### T NS #### [facility] [address] [place] [address] Dr. Jose Elias Strong ATYPICAL LYMPH % Normal [facility] Comment on above: Performed By: #### T NS #### [facility] [address] [place] [address] Dr. Jose Elias Strong BAND # 0.2 103/ul Normal 0.0-0.3 [facility] Comment on above: Performed By: #### T NS #### [facility] [address] [place] [address] Dr. Jose Elias Strong BAND % 1 % Normal 0-5 [facility] Comment on above: Performed By: #### T NS #### [facility] [address] [place] [address] Dr. Jose Elias Strong BASOM # 0.00 103/ul Normal 0.00-0.10 [facility] Comment on above: Performed By: #### T NS #### [facility] [address] [place] [address] Dr. Jose Elias Strong BASOM % 0.0 % Critically low 0.2-2.0 [facility] Comment on above: Performed By: #### T NS #### [facility] [address] [place] [address] Dr. Jose Elias Strong BLAST # Normal [facility] Comment on above: Performed By: #### T NS #### [facility] [address] [place] [address] Dr. Jose Elias Strong BLAST % Normal [facility] Comment on above: Performed By: #### T NS #### [facility] [address] [place] [address] Dr. Jose Elias Strong CORRECTED WBC Normal 4.0-11.0 [facility] Comment on above: Performed By: #### T NS #### [facility] [address] [place] [address] Dr. Jose Elias Strong EOS # 0.00 103/ul Normal 0.00-0.70 [facility] Comment on above: Performed By: #### T NS #### [facility] [address] [place] [address] Dr. Jose Elias Strong EOS% 0.0 % Critically low 0.9-7.0 [facility] Comment on above: Performed By: #### T NS #### [facility] [address] [place] [address] Dr. Jose Elias Strong HCT 27.5 % Critically low 36.0-48.0 [facility] Comment on above: Performed By: #### T NS #### [facility] [address] [place] [address] Dr. Jose Elias Strong HGB 8.1 g/dl Critically low 12.0-16.0 [facility] Comment on above: Performed By: #### T NS #### [facility] [address] [place] [address] Dr. Jose Elias Strong LYMPHM # 1.62 103/ul Normal 1.20-3.80 [facility] Comment on above: Performed By: #### T NS #### [facility] [address] [address] [address] Jose Elias Strong LYMPHM% 9.0 % Critically low 20.5-60.0 [facility] Comment on above: Performed By: #### T NS #### [facility] [address] [address] [address] Jose Elias Strong MCH 22.2 pg Critically low 26.7-34.0 [facility] Comment on above: Performed By: #### T NS #### [facility] [address] [address] [address] Jose Elias Strong MCHC 29.5 g/dl Critically low 29.9-35.2 [facility] Comment on above: Performed By: #### T NS #### [facility] [address] [place] [address] Dr. Jose Elias Strong MCV 75.3 fL Critically low 81.0-99.0 [facility] Comment on above: Performed By: #### T NS #### [facility] [address] [place] [address] Dr. Jose Elias Strong METAMYELOCYTE # Normal [facility] Comment on above: Performed By: #### T NS #### [facility] [address] [place] [address] Dr. Jose Elias Strong METAMYELOCYTE % Normal [facility] Comment on above: Performed By: #### T NS #### [facility] [address] [address] [address] Jose Elias Strong MONOM# 1.62 103/ul Critically high 0.30-0.80 [facility] Comment on above: Performed By: #### T NS #### [facility] [address] [place] [address] Dr. Jose Elias Strong MONOM% 9.0 % Normal 1.7-12.0 [facility] Comment on above: Performed By: #### T NS #### [facility] [address] [place] [address] Dr. Jose Elias Strong MPV 9.6 fL Normal 9.5-13.5 [facility] Comment on above: Performed By: #### T NS #### [facility] [address] [place] [address] Dr. Jose Elias Strong MYELOCYTE # Normal [facility] Comment on above: Performed By: #### T NS #### [facility] [address] [place] [address] Dr. Jose Elias Strong MYELOCYTE % Normal [facility] Comment on above: Performed By: #### T NS #### [facility] [address] [place] [address] Dr. Jose Elias Strong NRBC Normal [facility] Comment on above: Performed By: #### T NS #### [facility] [address] [place] [address] Dr. Jose Elias Strong PLT 308 103/ul Normal 150-450 [facility] Comment on above: Performed By: #### T NS #### [facility] [address] [place] [address] Dr. Jose Elias Strong RBC 3.65 106/ul Critically low 4.20-5.40 [facility] Comment on above: Performed By: #### T NS #### [facility] [address] [place] [address] Dr. Jose Elias Strong RDW 15.7 % Critically high 11.0-15.0 [facility] Comment on above: Performed By: #### T NS #### [facility] [address] [place] [address] Dr. Jose Elias Strong SEG # 14.58 103/ul Critically high 1.40-6.50 [facility] Comment on above: Performed By: #### T NS #### [facility] [address] [place] [address] Dr. Jose Elias Strong SEG % 81.0 % Critically high 43.0-75.0 [facility] Comment on above: Performed By: #### T NS #### [facility] [address] [place] [address] Dr. Jose Elias Strong WBC 18.0 103/ul Critically high 4.0-11.0 [facility] Comment on above: Performed By: #### T NS #### [facility] [address] [place] [address] Dr. Jose Elias Strong DRUG SCREEN RAPID (URINE)on 08-20-2021 AMP Negative Normal NEGATIVE [facility] Comment on above: Performed By: #### T NS #### [facility] [address] [place] [address] Dr. Jose Elias Strong BAR Negative Normal NEGATIVE [facility] Comment on above: Performed By: #### T NS #### [facility] [address] [place] [address] Dr. Jose Elias Strong BUP Negative Normal NEGATIVE [facility] Comment on above: Performed By: #### T NS #### [facility] [address] [place] [address] Dr. Jose Elias Strong BZO Negative Normal NEGATIVE [facility] Comment on above: Performed By: #### T NS #### [facility] [address] [place] [address] Dr. Jose Elias Strong PAXTON Negative Normal NEGATIVE [facility] Comment on above: Performed By: #### T NS #### [facility] [address] [place] [address] Dr. Jose Elias Strong CUT-OFFS SEE BELOW Normal [facility] Comment on above: Result Comment: AMP (Amphetamine): 500ng/mL, BAR (Barbituates): 200 ng/mL, BZO (Benzodiazepines): 150 ng/mL, BUP (Buprenorphine): 10 ng/mL, PAXTON (Cocaine): 150 ng/mL, mAMP (Methamphetamine): 500 ng/mL, MTD (Methadone): 200 ng/mL, OPI (Opiates): 100 ng/mL, OXY (Oxycodone): 100 ng/mL, PCP (Phencyclidine): 25 ng/mL, PPX (Propoxyphene): 300 ng/mL, THC (Cannabinoids): 50 ng/mL, TCA (Trycyclic Antidepressants): 300 ng/mL Performed By: #### T NS #### [facility] [address] [place] [address] Dr. Jose Elias Strong DRUG CUT HEADER DRUG CLASS TEST SYST EM CUT-OFF CONCENTRATIONS ARE FOLLOWS: Normal [facility] Comment on above: Performed By: #### T NS #### [facility] [address] [place] [address] Dr. Jose Elias Strong mAMP Negative Normal NEGATIVE [facility] Comment on above: Performed By: #### T NS #### [facility] [address] [place] [address] Dr. Jose Elias Strong MTD Negative Normal NEGATIVE [facility] Comment on above: Performed By: #### T NS #### [facility] [address] [place] [address] Dr. Jose Elias Strong OPI Negative Normal NEGATIVE [facility] Comment on above: Performed By: #### T NS #### [facility] [address] [place] [address] Dr. Jose Elias Strong OXY Negative Normal NEGATIVE [facility] Comment on above: Performed By: #### T NS #### [facility] [address] [place] [address] Dr. Jose Elias Strong PCP Negative Normal NEGATIVE [facility] Comment on above: Performed By: #### T NS #### [facility] [address] [place] [address] Dr. Jose Elias Strong PPX Negative Normal NEGATIVE [facility] Comment on above: Performed By: #### T NS #### [facility] [address] [place] [address] Dr. Jose Elias Strong TCA Negative Normal NEGATIVE [facility] Comment on above: Performed By: #### T NS #### [facility] [address] [place] [address] Dr. Jose Elias Strong THC Negative Normal NEGATIVE [facility] Comment on above: Performed By: #### T NS #### [facility] [address] [place] [address] Dr. Jose Elias Strong UA (CLEAN/CATCH) BLOW MOLDER/MICRO I F IND.on 08-20-2021 Bilirubin Ql (U) Negative Normal NEGATIVE [facility] Comment on above: Performed By: #### U MICRO, UACSIND #### [facility] [address] [address] [address] Jose Elias Strong Clarity (U) SL CLOUDY Abnormal CLEAR [facility] Comment on above: Performed By: #### U MICRO, UACSIND #### [facility] [address] [address] [address] Jose Elias Strong Color (U) RED Abnormal YELLOW [facility] Comment on above: Performed By: #### U MICRO, UACSIND #### [facility] [address] [address] [address] Jose Elias Strong Glucose Ql (U) Negative Normal NEGATIVE [facility] Comment on above: Performed By: #### U MICRO, UACSIND #### [facility] [address] [place] [address] Dr. Jose Elias Strong Hemoglobin Ql (U) LARGE Abnormal NEGATIVE [facility] Comment on above: Performed By: #### U MICRO, UACSIND #### [facility] [address] [place] [address] Dr. Jose Elias Strong Ketones Ql (U) 15 mg/dl Abnormal NEGATIVE [facility] Comment on above: Performed By: #### U MICRO, UACSIND #### [facility] [address] [place] [address] Dr. Jose Elias Strong LEUKOCYTES TRACE Abnormal NEGATIVE [facility] Comment on above: Performed By: #### U MICRO, UACSIND #### [facility] [address] [place] [address] Dr. Jose Elias Strong Nitrite Ql (U) Negative Normal NEGATIVE [facility] Comment on above: Performed By: #### U MICRO, UACSIND #### [facility] [address] [place] [address] Dr. Jose Elias Strong pH (U) 7.0 [pH] Normal 5-9 [facility] Comment on above: Performed By: #### U MICRO, UACSIND #### [facility] [address] [address] [address] Jose Elias Strong SPEC GRAVITY 1.020 Normal 1.005-<=1.025 [facility] Comment on above: Performed By: #### U MICRO, UACSIND #### [facility] [address] [place] [address] Dr. Jose Elias Strong UA PROTEIN 30 mg/dl Abnormal NEGATIVE/ TRACE [facility] Comment on above: Performed By: #### U MICRO, UACSIND #### [facility] [address] [place] [address] Dr. Jose Elias Strong UR MICRO IND INDICATED Normal [facility] Comment on above: Performed By: #### U MICRO, UACSIND #### [facility] [address] [place] [address] Dr. Jose Elias Strong Urobilinogen Qn (U) 0.2 {Mago'U}/dL Normal 0.2 - 1. 0 [facility] Comment on above: Performed By: #### U MICRO, UACSIND #### [facility] [address] [place] [address] Dr. Jose Elias Strong URINE MICROSCOPIC ONLYon BACTERIA NONE SEEN Normal NONE SEEN [facility] Comment on above: Performed By: #### U MICRO, UACSIND #### [facility] [address] [place] [address] Dr. Jose Elias Strong Bacteria identified Cx Nom (U) NOT INDICATED Normal [facility] Comment on above: Performed By: #### U MICRO, UACSIND #### [facility] [address] [place] [address] Dr. Jose Elias Strong CAST NONE SEEN Normal NONE SEEN [facility] Comment on above: Performed By: #### U MICRO, UACSIND #### [facility] [address] [place] [address] Dr. Jose Elias Strong Crystals LM Nom (Urine sed) NONE SEEN Normal NONE SEE N [facility] Comment on above: Performed By: #### U MICRO, UACSIND #### [facility] [address] [place] [address] Dr. Jose Elias Strong Epithelial cells LM Ql (Urin e sed) NONE SEEN Normal NONE SEEN /RARE [facility]ital Comment on above: Performed By: #### U MICRO, UACSIND #### [facility] [address] [place] [address] Dr. Jose Elias Strong MUCOUS NONE SEEN Normal NONE SEEN [facility] Comment on above: Performed By: #### U MICRO, UACSIND #### [facility] [address] [place] [address] Dr. Jose Elias Strong RBC (U) [#/Vol] /uL Abnormal 0-2 [facility] Comment on above: Performed By: #### U MICRO, UACSIND #### [facility] [address] [place] [address] Dr. Jose Elias Strong WBC 0-2 Abnormal NONE SEEN [facility] Comment on above: Performed By: #### U MICRO, UACSIND #### [facility] [address] [place] [address] Dr. Jose Elias tSrong CBC AUTO DIFFon 08-19-2021 BASO # 0.0 103/ul Normal 0.0-0.1 [facility] Comment on above: Performed By: #### T NS #### [facility] [address] [place] [address] Dr. Jose Elias Strong Basophils/100 WBC (Bld) 0.2 % Normal 0.2-2.0 [facility] Comment on above: Performed By: #### T NS #### [facility] [address] [place] [address] Dr. Jose Elias Strong EO # 0.1 103/ul Normal 0.0-0.7 [facility] Comment on above: Performed By: #### T NS #### [facility] [address] [place] [address] Dr. Jose Elias Strong Eosinophils/100 WBC (Bld) 0.7 % Critically low 0.9-7. 0 [facility] Comment on above: Performed By: #### T NS #### [facility] [address] [place] [address] Dr. Jose Elias Strong Erythrocyte distribution wid th (RBC) [Ratio] 15.9 % Critically high 11.0-15.0 [facility] Comment on above: Performed By: #### T NS #### [facility] [address] [place] [address] Dr. Jose Elias Strong Hematocrit (Bld) [Volume fraction] 32.4 % Critically low 36.0-48.0 [facility] Comment on above: Performed By: #### T NS #### [facility] [address] [place] [address] Dr. Jose Elias Strong Hemoglobin (Bld) [Mass/Vol] 9.7 g/dL Critically low 12.0 -16.0 [facility] Comment on above: Performed By: #### T NS #### [facility] [address] [place] [address] Dr. Jose Elias Strong IG # 0.19 10e3/ul Critically high 0.00-0.03 [facility] Comment on above: Performed By: #### T NS #### [facility] [address] [place] [address] Dr. Jose Elias Strong IG % 1.4 % Critically high 0.0-0.5 [facility] Comment on above: Performed By: #### T NS #### [facility] [address] [place] [address] Dr. Jose Elias Strong LYMPH # 1.9 103/ul Normal 1.2-3.8 [facility] Comment on above: Performed By: #### T NS #### [facility] [address] [place] [address] Dr. Jose Elias Strong Lymphocytes/100 WBC (Bld) 14.4 % Critically low 20.5-6 0.0 [facility] Comment on above: Performed By: #### T NS #### [facility] [address] [place] [address] Dr. Jose Elias Strong MANUAL DIFF REQ NO Normal [facility] Comment on above: Performed By: #### T NS #### [facility] [address] [place] [address] Dr. Jose Elias Strong MCH (RBC) [Entitic mass] 22.3 pg Critically low 26.7-34 .0 [facility] Comment on above: Performed By: #### T NS #### [facility] [address] [address] [address] Jose Elias Strong MCHC (RBC) [Mass/Vol] 29.9 g/dL Normal 29.9-35.2 [facility] Comment on above: Performed By: #### T NS #### [facility] [address] [address] [address] Jose Elias Strong MCV (RBC) [Entitic vol] 74.5 fL Critically low 81.0-99. 0 [facility] Comment on above: Performed By: #### T NS #### [facility] [address] [place] [address] Dr. Jose Elias Strong MONO # 1.4 103/ul Critically high 0.3-0.8 [facility] Comment on above: Performed By: #### T NS #### [facility] [address] [place] [address] Dr. Jose Elias Strong Monocytes/100 WBC (Bld) 10.1 % Normal 1.7-12.0 [facility] Comment on above: Performed By: #### T NS #### [facility] [address] [place] [address] Dr. Jose Elias Strong NEUT # 9.8 103/ul Critically high 1.4-6.5 [facility] Comment on above: Performed By: #### T NS #### [facility] [address] [place] [address] Dr. Jose Elias Strong Neutrophils/100 WBC (Bld) 73.2 % Normal 43.0-75.0 [facility] Comment on above: Performed By: #### T NS #### [facility] [address] [place] [address] Dr. Jose Elias Strong Platelet mean volume (Bld) [ Entitic vol] 10.0 fL Normal 9.5-13.5 The [facility] Comment on above: Performed By: #### T NS #### [facility] [address] [address] [address] Jose Elias Strong PLT 337 103/ul Normal 150-450 The [facility]ital Comment on above: Performed By: #### T NS #### [facility] [address] [address] [address] Jose Elias Strong RBC 4.35 106/ul Normal 4.20-5.40 [facility] Comment on above: Performed By: #### T NS #### [facility] [address] [address] [address] Jose Elias Strong WBC 13.4 103/ul Critically high 4.0-11.0 The [facility] Comment on above: Performed By: #### T NS #### [facility] [address] [address] [address] Jose Elias Strong Covid-19 PCR (CVDTBH)on 08-03 SARS-CoV-2 (COVID-19) RNA HOUSTON+probe Ql (Unsp spec) Not detected Normal NOT DETECTED The [facility] Comment on above: Result Comment: When diagnostic testing is negative, the possibility of a false negative should be considered in the context of a patient's recent exposures and the presence of clinical signs and symptoms consistent with SARS-CoV-2. This test is not yet approved or cleared by the [place] FDA. When there are no FDA-approved or cleared tests available, and other criteria are met, FDA can make tests available under an emergency access mechanism called an Emergency Use Authorization (EUA). The EUA for this test is supported by the [place] of Health and Human Service's declaration that circumstances exist to justify the emergency use of in vitro diagnostics for the detection and/or diagnosis of the virus that causes COVID-19. This EUA will remain in effect for the duration of the COVID-19 declaration justifying emergency of IVDs, unless it is terminated or revoked by the FDA (after which the test may no longer be used). Performed By: #### C VDTBH #### [facility] [address] [place] [address] Dr. Jose Elias Strong TYPE AND SCREENon 08-19-2021 TYPE AND SCREEN Negative Normal [facility] Comment on above: Performed By: #### T NS #### [facility] [address] [place] [address] Dr. Jose Elias Strong GROUP B STREP CULTUREon 07-05 S. agalactiae Ag Ql (Unsp spec) Culture Observations: NEGATIVE FOR GROUP B STREPTOCOCCUS. Normal [facility] Comment on above: Performed By: #### G BSCX #### [facility] [address] [place] [address] Dr. Jose Elias Strong UA (CLEAN/CATCH) BLOW MOLDER/MICRO I F IND.on 06-28-2021 Bilirubin Ql (U) Negative Normal NEGATIVE The [facility] Comment on above: Performed By: #### U ACSIND, UMICRO #### [facility] [address] [place] [address] Dr. Jose Elias Strong Clarity (U) CLEAR Normal CLEAR [facility] Comment on above: Performed By: #### U ACSIND, UMICRO #### [facility] [address] [place] [address] Dr. Jose Elias Strong Color (U) LT. YELLOW Normal YELLOW [facility] Comment on above: Performed By: #### U ACSIND, UMICRO #### [facility] [address] [place] [address] Dr. Jose Elias Strong Glucose Ql (U) Negative Normal NEGATIVE The [facility] Comment on above: Performed By: #### U ACSIND, UMICRO #### [facility] [address] [place] [address] Dr. Jose Elias Strong Hemoglobin Ql (U) Negative Normal NEGATIVE [facility] Comment on above: Performed By: #### U ACSIND, UMICRO #### [facility] [address] [place] [address] Dr. Jose Elias Strong Ketones Ql (U) Negative Normal NEGATIVE [facility] Comment on above: Performed By: #### U ACSIND, UMICRO #### [facility] [address] [place] [address] Dr. Jose Elias Strong LEUKOCYTES TRACE Abnormal NEGATIVE [facility] Comment on above: Performed By: #### U ACSIND, UMICRO #### [facility] [address] [address] [address] Jose Elias Strong Nitrite Ql (U) Negative Normal NEGATIVE [facility] Comment on above: Performed By: #### U ACSMICHAEL, UMICRO #### [facility] [address] [address] [address] Jose Elias Strong pH (U) 6.5 [pH] Normal 5-9 [facility] Comment on above: Performed By: #### U ACSMICHAEL, UMICRO #### [facility] [address] [address] [address] Jose Elias Strong SPEC GRAVITY 1.015 Normal 1.005-<=1.025 [facility] Comment on above: Performed By: #### U ACSMICHAEL, UMICRO #### [facility] [address] [place] [address] Dr. Jose Elias Strong UA PROTEIN Negative Normal NEGATIVE/ TRACE [facility] Comment on above: Performed By: #### U ACSMICHAEL UMICRO #### [facility] [address] [address] [address] Jose Elias Strong UR MICRO IND INDICATED Normal [facility] Comment on above: Performed By: #### U LAURENT UMICRO #### [facility] [address] [address] [address] Jose Elias Strong Urobilinogen Qn (U) 0.2 {Mago'U}/dL Normal 0.2 - 1. 0 [facility] Comment on above: Performed By: #### U ACSMICHAEL, UMICRO #### [facility] [address] [address] [address] Jose Elias Strong URINE MICROSCOPIC ONLYon AMORPHOUS CRYSTALS FEW Normal The [facility] Comment on above: Performed By: #### U ACSMICHAEL, UMICRO #### [facility] [address] [address] [address] Jose Elias Strong BACTERIA TRACE Abnormal NONE SEEN [facility] Comment on above: Performed By: #### U ACSMICHAEL UMICRO #### [facility] [address] [place] [address] Dr. Jose Elias Strong Bacteria identified Cx Nom (U) NOT INDICATED Normal [facility] Comment on above: Performed By: #### U ACSMICHAEL, UMICRO #### [facility] [address] [place] [address] Dr. Jose Elias Strong CAST NONE SEEN Normal NONE SEEN [facility] Comment on above: Performed By: #### U ACSMICHAEL, UMICRO #### [facility] [address] [place] [address] Dr. Jose Elias Strong Crystals LM Nom (Urine sed) SEEN Abnormal NONE SEE N [facility] Comment on above: Performed By: #### U ACSMICHAEL UMICRO #### [facility] [address] [place] [address] Dr. Jose Elias Strong Epithelial cells LM Ql (Urine sed) RARE Normal N ONE SEEN /RARE [facility] Comment on above: Performed By: #### U ACSMICHAEL UMICRO #### [facility] [address] [place] [address] Dr. Jose Elias Strong MUCOUS TRACE Abnormal NONE SEEN [facility] Comment on above: Performed By: #### U LAURENT ICRO #### [facility] [address] [place] [address] Dr. Jose Elias Strong RBC 0-2 Normal 0-2 [facility] Comment on above: Performed By: #### U LAURENT UMICRO #### [facility] [address] [place] [address] Dr. Jose Elias Strong WBC 2-5 Abnormal NONE SEEN [facility] Comment on above: Performed By: #### U LAURENT UMICRO #### [facility] [address] [place] [address] Dr. Jose Elias Strong CBC AUTO DIFFon 06-19-2021 BASO # 0.0 103/ul Normal 0.0-0.1 [facility] Comment on above: Performed By: #### C BC #### [facility] [address] [place] [address] Dr. Jose Elias Strong Basophils/100 WBC (Bld) 0.3 % Normal 0.2-2.0 [facility] Comment on above: Performed By: #### C BC #### [facility] [address] [place] [address] Dr. Jose Elias Strong EO # 0.2 103/ul Normal 0.0-0.7 [facility] ostal Comment on above: Performed By: #### C BC #### [facility] [address] [place] [address] Dr. Jose Elias Strong Eosinophils/100 WBC (Bld) 2.0 % Normal 0.9-7.0 [facility] Comment on above: Performed By: #### C BC #### [facility] [address] [place] [address] Dr. Jose Elias Strong Erythrocyte distribution wid th (RBC) [Ratio] 13.6 % Normal 11.0-15.0 [facility] Comment on above: Performed By: #### C BC #### [facility] [address] [place] [address] Dr. Jose Elias Strong Hematocrit (Bld) [Volume fraction] 29.4 % Critically low 36.0-48.0 [facility] Comment on above: Performed By: #### C BC #### [facility] [address] [place] [address] Dr. Jose Elias Strong Hemoglobin (Bld) [Mass/Vol] 9.5 g/dL Critically low 12.0 -16.0 [facility] Comment on above: Performed By: #### C BC #### [facility] [address] [place] [address] Dr. Jose Elias Strong IG # 0.14 10e3/ul Critically high 0.00-0.03 [facility] Comment on above: Performed By: #### C BC #### [facility] [address] [place] [address] Dr. Jose Elias Strong IG % 1.4 % Critically high 0.0-0.5 [facility] Comment on above: Performed By: #### C BC #### [facility] [address] [address] [address] Jose Elias Srtong LYMPH # 1.6 103/ul Normal 1.2-3.8 The [facility] Comment on above: Performed By: #### C BC #### [facility] [address] [place] [address] Dr. Jose Elias Strong Lymphocytes/100 WBC (Bld) 15.5 % Critically low 20.5-6 0.0 [facility] Comment on above: Performed By: #### C BC #### [facility] [address] [place] [address] Dr. Jose Elias Strong MANUAL DIFF REQ NO Normal [facility] Comment on above: Performed By: #### C BC #### [facility] [address] [place] [address] Dr. Jose Elias Strong MCH (RBC) [Entitic mass] 26.8 pg Normal 26.7-34.0 [facility] Comment on above: Performed By: #### C BC #### [facility] [address] [place] [address] Dr. Jose Elias Strong MCHC (RBC) [Mass/Vol] 32.3 g/dL Normal 29.9-35.2 [facility] Comment on above: Performed By: #### C BC #### [facility] [address] [place] [address] Dr. Jose Elias Strong MCV (RBC) [Entitic vol] 82.8 fL Normal 81.0-99.0 [facility] Comment on above: Performed By: #### C BC #### [facility] [address] [place] [address] Dr. Jose Elias Strong MONO # 1.2 103/ul Critically high 0.3-0.8 [facility] Comment on above: Performed By: #### C BC #### [facility] [address] [place] [address] Dr. Jose Elisa Strong Monocytes/100 WBC (Bld) 12.2 % Critically high 1.7-12. 0 [facility] Comment on above: Performed By: #### C BC #### [facility] [address] [address] [address] Jose Elias Strong NEUT # 7.0 103/ul Critically high 1.4-6.5 [facility] Comment on above: Performed By: #### C BC #### [facility] [address] [address] [address] Jose Elias Strong Neutrophils/100 WBC (Bld) 68.6 % Normal 43.0-75.0 [facility] Comment on above: Performed By: #### C BC #### [facility] [address] [address] [address] Jose Elias Strong Platelet mean volume (Bld) [Entitic vol] 9.1 fL Critically low 9.5-13.5 [facility] Comment on above: Performed By: #### C BC #### [facility] [address] [address] [address] Jose Elias Strong PLT 309 103/ul Normal 150-450 [facility] Comment on above: Performed By: #### C BC #### [facility] [address] [address] [address] Jose Elias Strong RBC 3.55 106/ul Critically low 4.20-5.40 [facility] Comment on above: Performed By: #### C BC #### [facility] [address] [address] [address] Jose Elias Strong WBC 10.1 103/ul Normal 4.0-11.0 [facility] Comment on above: Performed By: #### C BC #### [facility] [address] [address] [address] Jose Elias Strong GLYCOHEMOGLOBIN A1Con 2021 ADA RECOMMENDATION ADA THERAPEUTIC TARG ET 6.0 - 7.0 ACTION SUGGESTED > 7.0 Normal [facility] Comment on above: Performed By: #### T NS #### [facility] [address] [place] [address] Dr. Jose Elias Strong Glucose [Mass/Vol] 97 mg/dL Normal [facility] Comment on above: Performed By: #### T NS #### [facility] [address] [address] [address] Jose Elias Strong HbA1c (Bld) [Mass fraction] 5.0 % Normal <=6.0 [facility] Comment on above: Performed By: #### T NS #### [facility] [address] [address] [address] Jose Elias Strong Consenton 10-24-2020 Consent [id number] :127 [facility] In office Testingon 10-25-19 21 In office Testing [id number]:127 [facility] Registrationon 10-24-2020 Registration [id number] CD:127 [facility] Registration [id number] CD:127 [facility] Encounters Encounter Date Encounter Type Care Provider Facility Start: 03-19-2023 End: 03-19-2023 ambulatory MARY MARIE Not Available Start: 12-10-[address] [facility] Start: 11-19-2022 End: 11-19-2022 ambulatory YOMAIRA [facility] Start: 10-28-2022 End: 10-29-[address] [facility] Start: 08-29-2022 ambulatory YOMAIRA [facility] Start: 08-19-2022 End: 08-19-2022 Emergency department patient visit YOMAIRA [facility] Start: 08-08-2022 End: 08-08-2022 Emergency department patient visit JERRY WALLS [facility] Start: 06-04-2022 End: 06-04-[address] MARY MARIE Facility:[facility] Start: 11-14-2021 End: 11-14-[address] MARY MARIE Facility:[facility] Start: 09-05-2021 End: 09-17-[address] MARY MARIE Facility:[facility] Start: 08-27-2021 End: 08-27-[address] MARY MARIE Facility:[facility] Start: 08-19-2021 End: 08-21-2021 Evaluation and management of inpatient DR MARY MARIE Facility:[facility] Start: 08-01-2021 End: 08-01-[address] MARY MARIE Facility:[facility] Start: 06-28-2021 End: 06-28-2021 ambulatory TIM YADAV Facility:[facility] Start: 06-19-2021 End: 06-20-[address] MARY MARIE Facility:[facility] Procedures Date Procedure Procedure Detail Performing Clinician Start: 08-19-2021 Delivery of Products of Conception, External Approach DR MARY MARIE Payers Date Payer Category Payer Medicaid [id number] 1995 Unknown [id number] 2.16.84 0.1.855040.3.579.2.593 1995 Unknown [id number] 2.16.84 0.1.902334.3.579.2.593 1995 Unknown [id number] 2.16.84 0.1.092810.3.579.2.593 1995 Unknown [id number] 2.16.84 0.1.965873.3.579.2.593 1995 Unknown [id number] 2.16.84 0.1.787786.3.579.2.593 1995 Unknown [id number] 2.16.84 0.1.905235.3.579.2.593 1995 Unknown [id number] 2.16.84 0.1.264184.3.579.2.593 1995 Unknown [id number] 2.16.84 0.1.341152.3.579.2.593 1995 Unknown [id number] 2.16.84 0.1.597410.3.579.2.1213 1995 Unknown [id number] 2.16.84 0.1.679522.3.579.2.1212 1995 Unknown [id number] 2.16.84 0.1.566005.3.579.2.1212 1995 Unknown [id number] 2.16.840 .1.482913.3.579.2.1212 1995 Unknown [id number] 2.16.840 .1.477628.3.579.2.1212 1995 Unknown [id number] 2.16.840 .1.865247.3.579.2.1212 1995 Unknown [id number] 2.16.840. 1.528978.3.579.2.1259 1959 Unknown [id number] Summary Purpose Family History No Family History Records FoundNo Family History Records FoundNo Family History Records FoundNo Family History Records Found Advance Directives No Advanced Directives Records FoundNo Advanced Directives Records FoundNo Advanced Directives Records FoundNo Advanced Directives Records Found Additional Source Comments INFORMATION SOURCE (unrecogn ized section and content) DATE CREATED AUTHOR 10/25/2020 [facility] DATE CREATED AUTHOR AUTHOR'S ORGANIZ ATION 06/11/2022 [facility] DATE CREATED AUTHOR AUTHOR'S ORGANIZ ATION 12/16/2022 [facility] DATE CREATED AUTHOR AUTHOR'S ORGANIZ ATION 03/20/2023 [facility] FOR RECORDS PERTAINING TO PATIENTS WHO ARE OR HAVE BEEN ENROLLED IN A CHEMICAL DEPENDENCY/SUBSTANCEABUSE PROGRAM, SOME INFORMATION MAY BE OMITTED. This clinical summary was aggregated from multiple sources. Caution should be exercised in using it in the provision of clinical care. This summary normalizes information from multiple sources, and as a consequence, information in this document may materially change the coding, format and clinical context of patient data. In addition, data may be omitted in some cases. CLINICAL DECISIONS SHOULD BE BASED ON THE PRIMARY CLINICAL RECORDS. [facility] [employer] [facility]. provides no warranty or guarantee of the accuracy or completeness of information in this document.
== END 2023-04-23 09:04 | disposition home or self-care (01) ==
LOC: US 09:03
PROVIDERS: PCP Family Medicine; Visit Provider Obstetrics & Gynecology
DX: Z34.92 Encounter for supervision of normal pregnancy, unspecified, second trimester (principal); Z36.2 Encounter for other antenatal screening follow-up
CPT/HCPCS: 36415; 76815; 82950; 85025

== ENCOUNTER 2023-04-23 10:46 | Outpatient (OUT) | payer OTHER, SELFPAY ==
--- OUTSIDE RECORDS SUMMARY | 2023-04-23 11:03 | XMS_ITS | CCD ---
Author Name Unknown Address [facility]ly [facility], [facility] [address] [place] [address] Organization [facility] Care Team Providers Care Nurse Office Name Role Phone FRANK, DR HERNANDEZ Admitting Unavailable FRANK, DR HERNANDEZ Attending Unavailable KARMA, DR LIZABETH Kauffman Primary [facility] Unavail able FRANK, DR HERNANDEZ Admitting Unavailable FRANK, DR [...] Translations: [LATEX] Drug allergy (disorder) 6 [facility] Repository (2 sources) Leucine; Translations: [NICKEL] Drug Allergy 7 [facility] Repository (2 sources) Penicillins; Translations: [PENICILLINS] Drug allergy (disorder) 7 [facility] Repository (1 source) Shellfish Drug allergy (disorder) 7 [facility] Repository (1 source) Iodine; Translations: [IODINE] Drug Allergy 3 [facility] Repository (1 source) SHELLFISH CONTAINING PRODUCTS; Translations: [SHELLFISH CONTAINING PRODUCTS] Propensity to adverse reactions to drug (disorder) 3 [facility] Repository (1 source) VENOM-HONEY BEE; Translations: [VENOM-HONEY BEE] Propensity to adverse reactions to drug (disorder) 3 [facility] Repository Problems Active Problems Problem Classification Problem [...] HCG ( test) Ql (U) Negative Normal [facility] Comment on above: Order Comment: The c alculated GFR uses the (IDMS)-traceable creatinine MDRD equation and is reported in mL/min/1.73 square meters. This formula is not recommended for use with individuals with unstable creatinine concentrations, extremes in muscle mass and/or body size, or alternative diets and may not be suitable for all patient populations. Testing performed at [facility], [address] [place] [address] [id number] Result Comment: Note : This test provides only a presumptive diagnosis for . If the HCG result is inconsistent with clinical evidence, results should be confirmed with an alternative method, such as a quantitative HCG. Basic Metabolic Profileon ANIO 11 mmol/L Low 12-20 [facility] Comment on above: Order Comment: Testi ng performed at [facility], [address] [place] [address] 04060 Calcium [Mass/Vol] 9.5 mg/dL Normal 8.4-10.2 [facility] Comment on above: Order Comment: Testi ng performed at [facility], [address] [place] [address] 55186 Chloride [Moles/Vol] 107 mmol/L Normal 98-107 [facility] Comment on above: Order Comment: Testi ng performed at [facility], [address] [place] [address] 16257 CO2 [Moles/Vol] 23.0 mmol/L Normal 22.0-30.0 [facility] Comment on above: Order Comment: Testi ng performed at [facility], [address] [place] [address] 12673 Creatinine [Mass/Vol] 0.7 mg/dL Normal 0.6-1.2 [facility] Comment on above: Order Comment: Testi ng performed at [facility], [address] [place] [address] Glucose [Mass/Vol] 118 mg/dL High 74-106 [facility] Comment on above: Order Comment: Testi ng performed at [facility], [address] [place] [address] Potassium [Moles/Vol] 4.1 mmol/L Normal 3.3-4.9 [facility] Comment on above: Order Comment: Testi ng performed at [facility], [address] [place] [address] Sodium [Moles/Vol] 137 mmol/L Normal 137-145 [facility] Comment on above: Order Comment: Testi ng performed at [facility], [address] [place] [address] 34346 Urea nitrogen [Mass/Vol] 14 mg/dL Normal 8-19 [facility] Comment on above: Order Comment: Testi ng performed at [facility], [address] [place] [address] 70400 CBC w/Auto Diffon 08-19-2022 Basophils (Bld) [#/Vol] 0.04 10*3/uL Normal 0.00-0.10 [facility] Comment on above: Order Comment: [...] is no longer indicated. Testing performed at [facility], [address] [place] [address] 97168 Eosinophils (Bld) [#/Vol] 0.05 10*3/uL Normal 0.00-0.4 0 [facility] Comment on above: Order Comment: [...] is no longer indicated. Testing performed at [facility], [place] [address] Erythrocyte distribution wid th (RBC) [Ratio] 13.3 % Normal 11.7-14.4 [facility] Comment on above: Order Comment: Immature Gran [...] is no longer indicated. Testing performed at [facility], [address] [place] [address] 02673 Hematocrit (Bld) [Volume fraction] 36.1 % Normal 34.1-44.9 [facility] Comment on above: Order Comment: Immature Gran [...] is no longer indicated. Testing performed at [facility], [address] [place] [address] 73583 Hemoglobin (Bld) [Mass/Vol] 12.0 g/dL Normal 11.2-15. 7 [facility] Comment on above: Order Comment: [...] is no longer indicated. Testing performed at [facility], [address] [place] [address] 03047 IG % (B) 0.6 % High 0.0-0.4 [facility] Comment on above: Order Comment: Immature [...] is no longer indicated. Testing performed at [facility], [address] [place] [address] 24630 IG# (B) 0.14 10*3/uL High 0.00-0.00 [facility] Comment on above: Order Comment: Immature [...] is no longer indicated. Testing performed at [facility], [address] [place] [address] 73170 Lymphocytes (Bld) [#/Vol] 0.81 10*3/uL Low 1.20-3.7 0 [facility] Comment on above: Order Comment: [...] is no longer indicated. Testing performed at [facility], [address] [place] [address] 59667 MCH (RBC) [Entitic mass] 28.5 pg Normal 25.6-32.2 [facility] Comment on above: Order Comment: [...] is no longer indicated. Testing performed at [facility], [address] [place] [address] 49715 MCHC (RBC) [Mass/Vol] 33.2 g/dL Normal 32.2-35.5 [facility] Comment on above: Order Comment: [...] is no longer indicated. Testing performed at [facility], [address] [place] [address] 11038 MCV (RBC) [Entitic vol] 85.7 fL Normal 79.4-94.8 [facility] Comment on above: Order Comment: [...] is no longer indicated. Testing performed at [facility], [address] [place] [address] 06149 Monocytes (Bld) [#/Vol] 1.81 10*3/uL High 0.20-0.90 [facility] Comment on above: Order Comment: [...] is no longer indicated. Testing performed at [facility], [address] [place] [address] 64800 Neutrophils (Bld) [#/Vol] 20.04 10*3/uL High 1.60-6. 10 [facility] Comment on above: Order Comment: [...] is no longer indicated. Testing performed at [facility], [address] [place] [address] 14002 NRBC % (B) 0.0 /100{WBC} Normal 0.0-0.2 [facility] Comment on above: Order Comment: Immature [...] is no longer indicated. Testing performed at [facility], [address] [place] [address] 92277 NRBC# (B) 0.00 10*3/uL Normal 0.00-0.00 [facility] Comment on above: Order Comment: Immature [...] is no longer indicated. Testing performed at [facility], [address] [place] [address] 24924 Platelet mean volume (Bld) [Entitic vol] 9.9 fL Normal 9.4-12.3 [facility] Comment on above: Order Comment: Immature Gran [...] is no longer indicated. Testing performed at [facility], [address] [place] [address] 10601 Platelets (Bld) [#/Vol] 267 10*3/uL Normal 182-369 [facility] Comment on above: Order Comment: [...] is no longer indicated. Testing performed at [facility], [address] [place] [address] 88993 RBC (Bld) [#/Vol] 4.21 10*6/uL Normal 3.93-5.22 [facility] Comment on above: Order Comment: Immature Gran [...] is no longer indicated. Testing performed at [facility], [address] [place] [address] 61838 RDW-SD (B) 41.1 fL Normal 36.4-46.3 [facility] Comment on above: Order Comment: Immature [...] is no longer indicated. Testing performed at [facility], [address] [place] [address] 85153 WBC (Bld) [#/Vol] 22.9 10*3/uL High 4.0-10.0 [facility] Comment on above: Order Comment: Immature Gran [...] is no longer indicated. Testing performed at [facility], [address] [place] [address] NECK WITHOUT CONTRASTon 0 08-19-2022 CT [...] 08/19/2022 1:25 PM Normal [facility] EST Glomerular Filtration Ra jude 08-19-2022 EAGFR (B) >60 Normal >60 [facility] Comment on above: Order Comment: The c alculated GFR uses the (IDMS)-traceable creatinine MDRD equation and is reported in mL/min/1.73 square meters. This formula is not recommended for use with individuals with unstable creatinine concentrations, extremes in muscle mass and/or body size, or alternative diets and may not be suitable for all patient populations. Testing performed at [facility], [address] [place] [address] 98820 Result Comment: The reported eGFR is based on a non- patient, for Americans multiply the result by 1.212. HCG, Serumon 08-19-2022 HCGS Negative Normal [facility] Comment on above: Order Comment: Testi ng performed at [facility], [address] [place] [place] [address] Result Comment: Note : This test provides only a presumptive diagnosis for . If the HCG result is inconsistent with clinical evidence, results should be confirmed with an alternative method, such as a quantitative HCG. Man Diffon 08-19-2022 Eos, Diff 2 % Normal 0-6 [facility] Comment on above: Order Comment: Testi ng performed at [facility], [address] [place] [address] Lymphocytes/100 WBC (Bld) 3 % Low 20-53 [facility] Comment on above: Order Comment: Testi ng performed at [facility], [address] [place] [address] [place], Diff 6 % Normal 5-12 [facility] Comment on above: Order Comment: Testi ng performed at [facility], [place] [address] Segs. Diff 89 % High 34-70 [facility] Comment on above: Order Comment: Testi ng performed at [facility], [address] [place] [place] [address] Slide Scan Normal Normal Normal [facility] Comment on above: Order Comment: Testi ng performed at [facility], [address] [facility] [place] [address] Basic Metabolic Profileon ANIO 12 mmol/L Normal 12-20 [facility] Comment on above: Order Comment: Testi ng performed at [facility], [address] [place] [address] Calcium [Mass/Vol] 9.1 mg/dL Normal 8.4-10.2 [facility] Comment on above: Order Comment: Testi ng performed at [facility], [address] [facility] [place] [address] Chloride [Moles/Vol] 106 mmol/L Normal 98-107 [facility] Comment on above: Order Comment: [facility], [address] [place] [address] CO2 [Moles/Vol] 27.0 mmol/L Normal 22.0-30.0 [facility] Comment on above: Order Comment: [facility], [address] [place] [address] Creatinine [Mass/Vol] 0.6 mg/dL Normal 0.6-1.2 [facility] Comment on above: Order Comment: Testi ng performed at [facility], [address] [place] [address] Glucose [Mass/Vol] 95 mg/dL Normal 74-106 [facility] Comment on above: Order Comment: [facility], [place] [address] Potassium [Moles/Vol] 4.1 mmol/L Normal 3.3-4.9 [facility] Comment on above: Order Comment: [facility], [address] [place] [address] Sodium [Moles/Vol] 141 mmol/L Normal 137-145 [facility] Comment on above: Order Comment: [facility] ng [facility], [place] [address] Urea nitrogen [Mass/Vol] 9 mg/dL Normal 8-19 [facility] Comment on above: Order Comment: [facility] ng [facility], [address] [place] [address] CBC w/Auto Diffon 08-08-2022 Basophils (Bld) [#/Vol] 0.04 10*3/uL Normal 0.00-0.10 [facility] Comment on above: Order Comment: [...] is no longer indicated. Testing performed at [facility], [address] [place] [address] 13911 Basophils/100 WBC (Bld) 0.4 % Normal 0.1-1.2 [facility] Comment on above: Order Comment: [...] is no longer indicated. Testing performed at [facility], [address] [place] [address] 56611 Eosinophils (Bld) [#/Vol] 0.21 10*3/uL Normal 0.00-0.4 0 [facility] Comment on above: Order Comment: [...] is no longer indicated. Testing performed at [facility], [address] [place] [address] 84134 Eosinophils/100 WBC (Bld) 2.1 % Normal 0.7-5.8 [facility] Comment on above: Order Comment: [...] is no longer indicated. Testing performed at [facility], [address] [place] [address] 93991 Erythrocyte distribution wid th (RBC) [Ratio] 12.9 % Normal 11.7-14.4 [facility] Comment on above: Order Comment: Immature Gran [...] is no longer indicated. Testing performed at [facility], [address] [place] [address] 35218 Hematocrit (Bld) [Volume fraction] 35.4 % Normal 34.1-44.9 [facility] Comment on above: Order Comment: Immature Gran [...] is no longer indicated. Testing performed at [facility], [address] [place] [address] 17377 Hemoglobin (Bld) [Mass/Vol] 11.2 g/dL Normal 11.2-15. 7 [facility] Comment on above: Order Comment: [...] is no longer indicated. Testing performed at [facility], [address] [place] [address] 36798 IG % (B) 0.4 % Normal 0.0-0.4 [facility] Comment on above: Order Comment: Immature [...] is no longer indicated. Testing performed at [facility], [address] [place] [address] 84361 IG# (B) 0.04 10*3/uL High 0.00-0.00 [facility] Comment on above: Order Comment: Immature [...] is no longer indicated. Testing performed at [facility], [address] [place] [address] 66424 Lymphocytes (Bld) [#/Vol] 1.60 10*3/uL Normal 1.20-3.7 0 [facility] Comment on above: Order Comment: [...] is no longer indicated. Testing performed at [facility], [address] [place] [address] 47884 Lymphocytes/100 WBC (Bld) 16.3 % Low 19.3-51.7 [facility] Comment on above: Order Comment: [...] is no longer indicated. Testing performed at [facility], [address] [place] [address] 57953 MCH (RBC) [Entitic mass] 27.7 pg Normal 25.6-32.2 [facility] Comment on above: Order Comment: [...] is no longer indicated. Testing performed at [facility], [address] [place] [address] 90863 MCHC (RBC) [Mass/Vol] 31.6 g/dL Low 32.2-35.5 [facility] Comment on above: Order Comment: [...] is no longer indicated. Testing performed at [facility], [address] [place] [address] 10364 MCV (RBC) [Entitic vol] 87.4 fL Normal 79.4-94.8 [facility] Comment on above: Order Comment: [...] is no longer indicated. Testing performed at [facility], [address] [place] [address] 72701 Monocytes (Bld) [#/Vol] 0.88 10*3/uL Normal 0.20-0.90 [facility] Comment on above: Order Comment: [...] is no longer indicated. Testing performed at [facility], [address] [place] [address] 61527 Monocytes/100 WBC (Bld) 8.9 % Normal 4.7-12.5 [facility] Comment on above: Order Comment: [...] is no longer indicated. Testing performed at [facility], [address] [place] [address] 62685 Neutrophils (Bld) [#/Vol] 7.07 10*3/uL High 1.60-6.1 0 [facility] Comment on above: Order Comment: [...] is no longer indicated. Testing performed at [facility], [address] [place] [address] 37111 Neutrophils/100 WBC (Bld) 71.9 % High 34.0-71.1 [facility] Comment on above: Order Comment: [...] is no longer indicated. Testing performed at [facility], [address] [place] [address] 84109 NRBC % (B) 0.0 /100{WBC} Normal 0.0-0.2 [facility] Comment on above: Order Comment: Immature [...] is no longer indicated. Testing performed at [facility], [address] [place] [address] 19899 NRBC# (B) 0.00 10*3/uL Normal 0.00-0.00 [facility] Comment on above: Order Comment: Immature [...] is no longer indicated. Testing performed at [facility], [address] [place] [address] 61236 Platelet mean volume (Bld) [Entitic vol] 9.2 fL Low 9.4-12.3 [facility] Comment on above: Order Comment: Immature Gran [...] is no longer indicated. Testing performed at [facility], [address] [place] [address] 57642 Platelets (Bld) [#/Vol] 315 10*3/uL Normal 182-369 [facility] Comment on above: Order Comment: [...] is no longer indicated. Testing performed at [facility], [address] [place] [address] 98877 RBC (Bld) [#/Vol] 4.05 10*6/uL Normal 3.93-5.22 [facility] Comment on above: Order Comment: Immature Gran [...] is no longer indicated. Testing performed at [facility], [address] [place] [address] 19771 RDW-SD (B) 41.0 fL Normal 36.4-46.3 [facility] Comment on above: Order Comment: Immature [...] is no longer indicated. Testing performed at [facility], [address] [place] [address] 91212 WBC (Bld) [#/Vol] 9.8 10*3/uL Normal 4.0-10.0 [facility] Comment on above: Order Comment: [...] is no longer indicated. Testing performed at [facility], [address] [place] [address] NECK WITHOUT CONTRASTon 0 08-08-2022 CT [...] Schultz MD On: 08/08/2022 4:07 PM Normal [facility] EST Glomerular Filtration Ra jude 08-08-2022 EAGFR (B) >60 Normal >60 [facility] Comment on above: Order Comment: The c alculated GFR uses the (IDMS)-traceable creatinine MDRD equation and is reported in mL/min/1.73 square meters. This formula is not recommended for use with individuals with unstable creatinine concentrations, extremes in muscle mass and/or body size, or alternative diets and may not be suitable for all patient populations. Testing performed at [facility], [address] [place] [address] Result Comment: The reported eGFR is based on a non- patient, for Americans multiply the result by 1.212. Pap IG, rfx Aptima HPV, rfx 16/18,45on 06-11-2022 . . Normal [facility]spital Comment on above: Result Comment: Perf ormed at: WB Performed By: #### P APHR2A #### [facility] [address] [place] [address] Dr. [facility] DIAGNOSIS: Comment Normal [facility] Comment on above: Result Comment: NEGA TIVE FOR INTRAEPITHELIAL LESION OR MALIGNANCY. Performed at: WB Performed By: #### P APHR2A #### [facility] [address] [place] [address] Dr. [facility] HPV Aptima Negative Normal Negative [facility] Comment on above: Result Comment: This nucleic acid amplification test detects fourteen high-risk HPV types (16,18,31,33,35,39,45,51,52,56,58,59,66,68) without differentiation. Performed at: =G Performed By: #### P APHR2A #### [facility] [address] [address] [address] [facility] HPV Genotype Reflex Comment Normal [facility] Comment on above: Result Comment: Crit erbarbie not met, HPV Genotype not performed. Performed at: WB Performed By: #### P APHR2A #### [facility] [address] [address] [address] [facility] Methodology: Comment Normal [facility] Comment on above: Result Comment: This liquid based ThinPrep(R) pap test was screened with the use of an image guided system. Performed at: WB Performed By: #### P APHR2A #### [facility] [address] [address] [address] [facility] Note: Comment Normal [facility] Comment on above: Result Comment: The Pap smear is a screening test designed to aid in the detection of premalignant and malignant conditions of the uterine cervix. It is not a diagnostic procedure and should not be used as the sole means of detecting cervical cancer. Both false-positive and false-negative reports do occur. . Performed at: WB Performed By: #### P APHR2A #### [facility] [address] [address] [address] [facility] Performed by: Comment Normal [facility] Comment on above: Result Comment: Koffi Hutchinson, Basin Cleaner (ASCP) Performed at: WB Performed By: #### P APHR2A #### [facility] [address] [address] [address] [facility] Specimen adequacy: Comment Normal [facility] Comment on above: Result Comment: Sati sfactory for evaluation. Endocervical and/or squamous metaplastic cells (endocervical component) are present. Performed at: WB Performed By: #### P APHR2A #### [facility] [address] [place] [address] Dr. [facility] PAP ACOG PANEL 2: 21 to 29on 11-20-2021 . . Normal [facility] Comment on above: Performed By: #### [id number] #### [facility] [address] [place] [address] Dr. Jose [facility] Age Gdln ACOG Testing - Normal [facility] Comment on above: Performed By: #### [id number] #### [facility] [address] [place] [address] Dr. [facility] DIAGNOSIS: Comment Normal [facility] Comment on above: Result Comment: NEGA TIVE FOR INTRAEPITHELIAL LESION OR MALIGNANCY. REACTIVE CELLULAR CHANGES AND/OR REPAIR ARE PRESENT. Performed By: #### [id number] #### [facility] [address] [place] [address] Dr. [facility] Electronically signed by: Comment Normal [place] [facility] Comment on above: Result Comment: Melinda Patel MD, Pathologist Performed By: #### [id number] #### [facility] [address] [place] [address] Dr. Jose Elias Strong Methodology: Comment [facility] Comment on above: Result Comment: This liquid based ThinPrep(R) pap test was screened with the use of an image guided system. Performed By: #### [id number] #### [facility] [address] [place] [address] Dr. Jose Elias Strong Note: Comment Normal [facility] Comment on above: Result Comment: The Pap smear is a screening test designed to aid in the detection of premalignant and malignant conditions of the uterine cervix. It is not a diagnostic procedure and should not be used as the sole means of detecting cervical cancer. Both false-positive and false-negative reports do occur. . Performed By: #### [id number] #### [facility] [address] [place] [address] Dr. Jose Elias Strong Performed by: Comment Normal [facility] Comment on above: Result Comment: Lilian Romero Basin Cleaner (ASCP) Performed By: #### [id number] #### [facility] [address] [place] [address] Dr. Jose Elias Strong Reflex Criteria: Comment Normal [facility] Comment on above: Result Comment: The HPV DNA reflex criteria were not met with this specimen result therefore, no HPV testing was performed. . Performed By: #### [id number] #### [facility] [address] [place] [address] Dr. Jose Elias Strong Specimen adequacy: Comment Normal [facility] Comment on above: Result Comment: Sati sfactory for evaluation. Endocervical and/or squamous metaplastic cells (endocervical component) are present. Performed By: #### [id number] #### [facility] [address] [place] [address] Dr. Jose Elias Strong CBC W MANUAL DIFFon 08-21-19 22 ANISOCYTOSIS 1+ Normal [facility] Comment on above: Performed By: #### T NS #### [facility] [address] [place] [address] Dr. Jose Elias Strong ATYPICAL LYMPH # Normal [facility] Comment on above: Performed By: #### T NS #### [facility] [address] [place] [address] Dr. Jose Elias Strong ATYPICAL LYMPH % Normal [facility] Comment on above: Performed By: #### T NS #### [facility] [address] [place] [address] Dr. Jose Elias Strong BAND # 0.2 103/ul Normal 0.0-0.3 [facility] Comment on above: Performed By: #### T NS #### [facility] [address] [place] [address] Dr. Jose Elias Strong BAND % 1 % Normal 0-5 [facility] Comment on above: Performed By: #### T NS #### [facility] [address] [place] [address] Dr. Jose Elias Strong BASOM # 0.00 103/ul Normal 0.00-0.10 [facility] Comment on above: Performed By: #### T NS #### [facility] [address] [place] [address] Dr. Jose Elias Strong BASOM % 0.0 % Critically low 0.2-2.0 [facility] Comment on above: Performed By: #### T NS #### [facility] [address] [place] [address] Dr. Jose Elias Strong BLAST # Normal [facility] Comment on above: Performed By: #### T NS #### [facility] [address] [place] [address] Dr. Jose Elias Strong BLAST % Normal [facility] Comment on above: Performed By: #### T NS #### [facility] [address] [place] [address] Dr. Jose Elias Strong CORRECTED WBC Normal 4.0-11.0 [facility] Comment on above: Performed By: #### T NS #### [facility] [address] [place] [address] Dr. Jose Elias Strong EOS # 0.00 103/ul Normal 0.00-0.70 [facility] Comment on above: Performed By: #### T NS #### [facility] [address] [place] [address] Dr. Jose Elias Strong EOS% 0.0 % Critically low 0.9-7.0 [facility] Comment on above: Performed By: #### T NS #### [facility] [address] [place] [address] Dr. Jose Elias Strong HCT 27.5 % Critically low 36.0-48.0 [facility] Comment on above: Performed By: #### T NS #### [facility] [address] [place] [address] Dr. Jose Elias Strong HGB 8.1 g/dl Critically low 12.0-16.0 [facility] Comment on above: Performed By: #### T NS #### [facility] [address] [place] [address] Dr. Jose Elias Strong LYMPHM # 1.62 103/ul Normal 1.20-3.80 [facility] Comment on above: Performed By: #### T NS #### [facility] [address] [address] [address] Jose Elias Strong LYMPHM% 9.0 % Critically low 20.5-60.0 [facility] Comment on above: Performed By: #### T NS #### [facility] [address] [address] [address] Jose Elias Strong MCH 22.2 pg Critically low 26.7-34.0 [facility] Comment on above: Performed By: #### T NS #### [facility] [address] [address] [address] Jose Elias Strong MCHC 29.5 g/dl Critically low 29.9-35.2 [facility] Comment on above: Performed By: #### T NS #### [facility] [address] [place] [address] Dr. Jose Elias Strong MCV 75.3 fL Critically low 81.0-99.0 [facility] Comment on above: Performed By: #### T NS #### [facility] [address] [place] [address] Dr. Jose Elias Strong METAMYELOCYTE # Normal [facility] Comment on above: Performed By: #### T NS #### [facility] [address] [place] [address] Dr. Jose Elias Strong METAMYELOCYTE % Normal [facility] Comment on above: Performed By: #### T NS #### [facility] [address] [address] [address] Jose Elias Strong MONOM# 1.62 103/ul Critically high 0.30-0.80 [facility] Comment on above: Performed By: #### T NS #### [facility] [address] [place] [address] Dr. Jose Elias Strong MONOM% 9.0 % Normal 1.7-12.0 [facility] Comment on above: Performed By: #### T NS #### [facility] [address] [place] [address] Dr. Jose Elias Strong MPV 9.6 fL Normal 9.5-13.5 [facility] Comment on above: Performed By: #### T NS #### [facility] [address] [place] [address] Dr. Jose Elias Strong MYELOCYTE # Normal [facility] Comment on above: Performed By: #### T NS #### [facility] [address] [place] [address] Dr. Jose Elias Strong MYELOCYTE % Normal [facility] Comment on above: Performed By: #### T NS #### [facility] [address] [place] [address] Dr. Jose Elias Strong NRBC Normal [facility] Comment on above: Performed By: #### T NS #### [facility] [address] [place] [address] Dr. Jose Elias Strong PLT 308 103/ul Normal 150-450 [facility] Comment on above: Performed By: #### T NS #### [facility] [address] [place] [address] Dr. Jose Elias Strong RBC 3.65 106/ul Critically low 4.20-5.40 [facility] Comment on above: Performed By: #### T NS #### [facility] [address] [place] [address] Dr. Jose Elias Strong RDW 15.7 % Critically high 11.0-15.0 [facility] Comment on above: Performed By: #### T NS #### [facility] [address] [place] [address] Dr. Jose Elias Strong SEG # 14.58 103/ul Critically high 1.40-6.50 [facility] Comment on above: Performed By: #### T NS #### [facility] [address] [place] [address] Dr. Jose Elias Strong SEG % 81.0 % Critically high 43.0-75.0 [facility] Comment on above: Performed By: #### T NS #### [facility] [address] [place] [address] Dr. Jose Elias Strong WBC 18.0 103/ul Critically high 4.0-11.0 [facility] Comment on above: Performed By: #### T NS #### [facility] [address] [place] [address] Dr. Jose Elias Strong DRUG SCREEN RAPID (URINE)on 08-20-2021 AMP Negative Normal NEGATIVE [facility] Comment on above: Performed By: #### T NS #### [facility] [address] [place] [address] Dr. Jose Elias Strong BAR Negative Normal NEGATIVE [facility] Comment on above: Performed By: #### T NS #### [facility] [address] [place] [address] Dr. Jose Elias Strong BUP Negative Normal NEGATIVE [facility] Comment on above: Performed By: #### T NS #### [facility] [address] [place] [address] Dr. Jose Elias Strong BZO Negative Normal NEGATIVE [facility] Comment on above: Performed By: #### T NS #### [facility] [address] [place] [address] Dr. Jose Elias Strong PAXTON Negative Normal NEGATIVE [facility] Comment on above: Performed By: #### T NS #### [facility] [address] [place] [address] Dr. Jose Elias Strong CUT-OFFS SEE BELOW Normal [facility] Comment on above: Result Comment: [...] ng/mL Performed By: #### T NS #### [facility] [address] [place] [address] Dr. Jose Elias Strong DRUG CUT HEADER DRUG CLASS TEST SYST EM CUT-OFF CONCENTRATIONS ARE FOLLOWS: Normal [facility] Comment on above: Performed By: #### T NS #### [facility] [address] [place] [address] Dr. Jose Elias Strong mAMP Negative Normal NEGATIVE [facility] Comment on above: Performed By: #### T NS #### [facility] [address] [place] [address] Dr. Jose Elias Strong MTD Negative Normal NEGATIVE [facility] Comment on above: Performed By: #### T NS #### [facility] [address] [place] [address] Dr. Jose Elias Strong OPI Negative Normal NEGATIVE [facility] Comment on above: Performed By: #### T NS #### [facility] [address] [place] [address] Dr. Jose Elias Strogn OXY Negative Normal NEGATIVE [facility] Comment on above: Performed By: #### T NS #### [facility] [address] [place] [address] Dr. Jose Elias Strong PCP Negative Normal NEGATIVE [facility] Comment on above: Performed By: #### T NS #### [facility] [address] [place] [address] Dr. Jose Elias Strong PPX Negative Normal NEGATIVE [facility] Comment on above: Performed By: #### T NS #### [facility] [address] [place] [address] Dr. Jose Elias Strong TCA Negative Normal NEGATIVE [facility] Comment on above: Performed By: #### T NS #### [facility] [address] [place] [address] Dr. Jose Elias Strong THC Negative Normal NEGATIVE [facility] Comment on above: Performed By: #### T NS #### [facility] [address] [place] [address] Dr. 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 Jose Elias Strong Clarity (U) SL CLOUDY Abnormal CLEAR [facility] Comment on above: Performed By: #### U MICRO, UACSIND #### [facility] [address] [address] [address] Jose Elias Strong Color (U) RED Abnormal YELLOW [facility] Comment on above: Performed By: #### U MICRO, UACSIND #### [facility] [address] [address] [address] Jose Elias Strong Glucose Ql (U) Negative Normal NEGATIVE [facility] Comment on above: Performed By: #### U MICRO, UACSIND #### [facility] [address] [place] [address] Dr. Jose Elias Strong Hemoglobin Ql (U) LARGE Abnormal NEGATIVE [facility] Comment on above: Performed By: #### U MICRO, UACSIND #### [facility] [address] [place] [address] Dr. Jose Elias Strong Ketones Ql (U) 15 mg/dl Abnormal NEGATIVE [facility] Comment on above: Performed By: #### U MICRO, UACSIND #### [facility] [address] [place] [address] Dr. Jose Elias Strong LEUKOCYTES TRACE Abnormal NEGATIVE [facility] Comment on above: Performed By: #### U MICRO, UACSIND #### [facility] [address] [place] [address] Dr. Jose Elias Strong Nitrite Ql (U) Negative Normal NEGATIVE [facility] Comment on above: Performed By: #### U MICRO, UACSIND #### [facility] [address] [place] [address] Dr. Jose Elias Strong pH (U) 7.0 [pH] Normal 5-9 [facility] Comment on above: Performed By: #### U MICRO, UACSIND #### [facility] [address] [address] [address] Jose Elias Strong SPEC GRAVITY 1.020 Normal 1.005-<=1.025 [facility] Comment on above: Performed By: #### U MICRO, UACSIND #### [facility] [address] [place] [address] Dr. Jose Elias Strong UA PROTEIN 30 mg/dl Abnormal NEGATIVE/ TRACE [facility] Comment on above: Performed By: #### U MICRO, UACSIND #### [facility] [address] [place] [address] Dr. Jose Elias Strong UR MICRO IND INDICATED Normal [facility] Comment on above: Performed By: #### U MICRO, UACSIND #### [facility] [address] [place] [address] Dr. Jose Elias Strong Urobilinogen Qn (U) 0.2 {Mago'U}/dL Normal 0.2 - 1. 0 [facility] Comment on above: Performed By: #### U MICRO, UACSIND #### [facility] [address] [place] [address] Dr. Jose Elias Strong URINE MICROSCOPIC ONLYon BACTERIA NONE SEEN Normal NONE SEEN [facility] Comment on above: Performed By: #### U MICRO, UACSIND #### [facility] [address] [place] [address] Dr. Jose Elias Strong Bacteria identified Cx Nom (U) NOT INDICATED Normal [facility] Comment on above: Performed By: #### U MICRO, UACSIND #### [facility] [address] [place] [address] Dr. Jose Elias Strong CAST NONE SEEN Normal NONE SEEN [facility] Comment on above: Performed By: #### U MICRO, UACSIND #### [facility] [address] [place] [address] Dr. Jose Elias Strong Crystals LM Nom (Urine sed) NONE SEEN Normal NONE SEE N [facility] Comment on above: Performed By: #### U MICRO, UACSIND #### [facility] [address] [place] [address] Dr. Jose Elias Strong Epithelial cells LM Ql (Urin e sed) NONE SEEN Normal NONE SEEN /RARE [facility] Comment on above: Performed By: #### U MICRO, UACSIND #### [facility] [address] [place] [address] Dr. Jose Elias Strong MUCOUS NONE SEEN Normal NONE SEEN [facility] Comment on above: Performed By: #### U MICRO, UACSIND #### [facility] [address] [place] [address] Dr. Jose Elias Strong RBC (U) [#/Vol] /uL Abnormal 0-2 [facility] Comment on above: Performed By: #### U MICRO, UACSIND #### [facility] [address] [place] [address] Dr. Jose Elias Strong WBC 0-2 Abnormal NONE SEEN [facility] Comment on above: Performed By: #### U MICRO, UACSIND #### [facility] [address] [place] [address] Dr. Jose Elias Strong CBC AUTO DIFFon 08-19-2021 BASO # 0.0 103/ul Normal 0.0-0.1 [facility] Comment on above: Performed By: #### T NS #### [facility] [address] [place] [address] Dr. Jose Elias Strong Basophils/100 WBC (Bld) 0.2 % Normal 0.2-2.0 [facility] Comment on above: Performed By: #### T NS #### [facility] [address] [place] [address] Dr. Jose Elias Strong EO # 0.1 103/ul Normal 0.0-0.7 [facility] Comment on above: Performed By: #### T NS #### [facility] [address] [place] [address] Dr. Jose Elias Strong Eosinophils/100 WBC (Bld) 0.7 % Critically low 0.9-7. 0 [facility] Comment on above: Performed By: #### T NS #### [facility] [address] [place] [address] Dr. Jose Elias Strong Erythrocyte distribution wid th (RBC) [Ratio] 15.9 % Critically high 11.0-15.[address] [facility] Comment on above: Performed By: #### T NS #### [facility] [address] [place] [address] Dr. Jose Elias Strong Hematocrit (Bld) [Volume fraction] 32.4 % Critically low 36.0-48.[address] [facility] Comment on above: Performed By: #### T NS #### [facility] [address] [place] [address] Dr. Jose Elias Strong Hemoglobin (Bld) [Mass/Vol] 9.7 g/dL Critically low 12.0 -16.0 [facility] Comment on above: Performed By: #### T NS #### [facility] [address] [place] [address] Dr. Jose Elias Strong IG # 0.19 10e3/ul Critically high 0.00-0.03 [facility] Comment on above: Performed By: #### T NS #### [facility] [address] [place] [address] Dr. Jose Elias Strong IG % 1.4 % Critically high 0.0-0.5 [facility] Comment on above: Performed By: #### T NS #### [facility] [address] [place] [address] Dr. Jose Elias Strong LYMPH # 1.9 103/ul Normal 1.2-3.8 [facility] Comment on above: Performed By: #### T NS #### [facility] [address] [place] [address] Dr. Jose Elias Strong Lymphocytes/100 WBC (Bld) 14.4 % Critically low 20.5-6 0.0 [facility] Comment on above: Performed By: #### T NS #### [facility] [address] [place] [address] Dr. Jose Elias Strong MANUAL DIFF REQ NO Normal [facility] Comment on above: Performed By: #### T NS #### [facility] [address] [place] [address] Dr. Jose Elias Strong MCH (RBC) [Entitic mass] 22.3 pg Critically low 26.7-34 .0 [facility] Comment on above: Performed By: #### T NS #### [facility] [address] [address] [address] Jose Elias Strong MCHC (RBC) [Mass/Vol] 29.9 g/dL Normal 29.9-35.2 [facility] Comment on above: Performed By: #### T NS #### [facility] [address] [address] [address] Jose Elias Strong MCV (RBC) [Entitic vol] 74.5 fL Critically low 81.0-99. 0 [facility] Comment on above: Performed By: #### T NS #### [facility] [address] [place] [address] Dr. Jose Elias Strong MONO # 1.4 103/ul Critically high 0.3-0.8 [facility] Comment on above: Performed By: #### T NS #### [facility] [address] [place] [address] Dr. Jose Elias Strong Monocytes/100 WBC (Bld) 10.1 % Normal 1.7-12.0 [facility] Comment on above: Performed By: #### T NS #### [facility] [address] [place] [address] Dr. Jose Elias Strong NEUT # 9.8 103/ul Critically high 1.4-6.5 [facility] Comment on above: Performed By: #### T NS #### [facility] [address] [place] [address] Dr. Jose Elias Strong Neutrophils/100 WBC (Bld) 73.2 % Normal 43.0-75.0 [facility] Comment on above: Performed By: #### T NS #### [facility] [address] [place] [address] Dr. Jose Elias Strong Platelet mean volume (Bld) [ Entitic vol] 10.0 fL Normal 9.5-13.[address] [facility] Comment on above: Performed By: #### T NS #### [facility] [address] [address] [address] Jose Elias Strong PLT 337 103/ul Normal 150-450 [facility] Comment on above: Performed By: #### T NS #### [facility] [address] [address] [address] Jose Elias Strong RBC 4.35 106/ul Normal 4.20-5.40 [facility] Comment on above: Performed By: #### T NS #### [facility] [address] [address] [address] Jose Elias Strong WBC 13.4 103/ul Critically high 4.0-11.0 [facility] Comment on above: Performed By: #### T NS #### [facility] [address] [address] [address] Jose Elias Strong Covid-19 PCR (CVDTBH)on 08-03 SARS-CoV-2 (COVID-19) RNA [place]+probe Ql (Unsp spec) Not detected Normal NOT DETECTED [facility] Comment on above: Result Comment: When [...] for this test is supported by the [place] of Health and Human Service's declaration that [...] used). Performed By: #### C VDTBH #### [facility] [address] [place] [address] Dr. Jose Elias Strong TYPE AND SCREENon 08-19-2021 TYPE AND SCREEN Negative Normal [facility] Comment on above: Performed By: #### T NS #### [facility] [address] [place] [address] Dr. Jose Elias Strong GROUP B STREP CULTUREon 07-05 S. agalactiae Ag Ql (Unsp spec) Culture Observations: NEGATIVE FOR GROUP B STREPTOCOCCUS. Normal The [facility] [place] [facility] Comment on above: Performed By: #### G BSCX #### [facility] [address] [place] [address] Dr. Jose Elias Strong UA (CLEAN/CATCH) PL[employer] FLOOR AUTOMATION MANAGER/MICRO I F IND.on 06-28-2021 Bilirubin Ql (U) Negative Normal NEGATIVE [facility] Comment on above: Performed By: #### U ACSIND, UMICRO #### [facility] [address] [place] [address] Dr. Jose Elias Strong Clarity (U) CLEAR Normal CLEAR [facility] Comment on above: Performed By: #### U ACSIND, UMICRO #### [facility] [address] [place] [address] Dr. Jose Elias Strong Color (U) LT. YELLOW Normal YELLOW [facility] Comment on above: Performed By: #### U ACSIND, UMICRO #### [facility] [address] [place] [address] Dr. Jose Elias Strong Glucose Ql (U) Negative Normal NEGATIVE [facility] Comment on above: Performed By: #### U ACSIND, UMICRO #### [facility] [address] [place] [address] Dr. Jose Elias Strong Hemoglobin Ql (U) Negative Normal NEGATIVE [facility] Comment on above: Performed By: #### U ACSIND, UMICRO #### [facility] [address] [place] [address] Dr. Jose Elias Strong Ketones Ql (U) Negative Normal NEGATIVE [facility] Comment on above: Performed By: #### U ACSIND, UMICRO #### [facility] [address] [place] [address] Dr. Jose Elias Strong LEUKOCYTES TRACE Abnormal NEGATIVE [facility] Comment on above: Performed By: #### U ACSIND, UMICRO #### [facility] [address] [address] [address] Jose Elias Strong Nitrite Ql (U) Negative Normal NEGATIVE [facility] Comment on above: Performed By: #### U ACSMICHAEL, UMICRO #### [facility] [address] [address] [address] Jose Elias Strong pH (U) 6.5 [pH] Normal 5-9 [facility] Comment on above: Performed By: #### U ACSMICHAEL, UMICRO #### [facility] [address] [address] [address] Jose Elias Strong SPEC GRAVITY 1.015 Normal 1.005-<=1.025 [facility] Comment on above: Performed By: #### U ACSMICHAEL, UMICRO #### [facility] [address] [place] [address] Dr. Jose Elias Strong UA PROTEIN Negative Normal NEGATIVE/ TRACE [facility] Comment on above: Performed By: #### U ACSMICHAEL UMICRO #### [facility] [address] [address] [address] Jose Elias Strong UR MICRO IND INDICATED Normal [facility] Comment on above: Performed By: #### U LAURENT UMICRO #### [facility] [address] [address] [address] Jose Elias Strong Urobilinogen Qn (U) 0.2 {Mago'U}/dL Normal 0.2 - 1. 0 [facility] Comment on above: Performed By: #### U ACSMICHAEL, UMICRO #### [facility] [address] [address] [address] Jose Elias Strong URINE MICROSCOPIC ONLYon AMORPHOUS CRYSTALS FEW Normal [facility] Comment on above: Performed By: #### U ACSMICHAEL, UMICRO #### [facility] [address] [address] [address] Jose Elias Strong BACTERIA TRACE Abnormal NONE SEEN [facility] Comment on above: Performed By: #### U ACSMICHAEL UMICRO #### [facility] [address] [place] [address] Dr. Jose Elias Strong Bacteria identified Cx Nom (U) NOT INDICATED Normal [facility] Comment on above: Performed By: #### U ACSMICHAEL, UMICRO #### [facility] [address] [place] [address] Dr. Jose Elias Strong CAST NONE SEEN Normal NONE SEEN [facility] Comment on above: Performed By: #### U ACSMICHAEL, UMICRO #### [facility] [address] [place] [address] Dr. Jose Elias tSrong Crystals LM Nom (Urine sed) SEEN Abnormal NONE SEE N [facility] Comment on above: Performed By: #### U ACSMICHAEL UMICRO #### [facility] [address] [place] [address] Dr. Jose Elias Strong Epithelial cells LM Ql (Urine sed) RARE Normal N ONE SEEN /RARE [facility] Comment on above: Performed By: #### U ACSMICHAEL UMICRO #### [facility] [address] [place] [address] Dr. Jose Elias Strong MUCOUS TRACE Abnormal NONE SEEN [facility] Comment on above: Performed By: #### U LAURENT ICRO #### [facility] [address] [place] [address] Dr. Jose Elias Strong RBC 0-2 Normal 0-2 [facility] Comment on above: Performed By: #### U LAURENT UMICRO #### [facility] [address] [place] [address] Dr. Jose Elias Strong WBC 2-5 Abnormal NONE SEEN [facility] Comment on above: Performed By: #### U LAURENT UMICRO #### [facility] [address] [place] [address] Dr. Jose Elias Strong CBC AUTO DIFFon 06-19-2021 BASO # 0.0 103/ul Normal 0.0-0.1 [facility] Comment on above: Performed By: #### C BC #### [facility] [address] [place] [address] Dr. Jose Elias Strong Basophils/100 WBC (Bld) 0.3 % Normal 0.2-2.0 [facility] Comment on above: Performed By: #### C BC #### [facility] [address] [place] [address] Dr. Jose Elias Strong EO # 0.2 103/ul Normal 0.0-0.7 [facility] Comment on above: Performed By: #### C BC #### [facility] [address] [place] [address] Dr. Jose Elias Strong Eosinophils/100 WBC (Bld) 2.0 % Normal 0.9-7.0 [facility] Comment on above: Performed By: #### C BC #### [facility] [address] [place] [address] Dr. Jose Elias Strong Erythrocyte distribution wid th (RBC) [Ratio] 13.6 % Normal 11.0-15.[address] [facility] Comment on above: Performed By: #### C BC #### [facility] [address] [place] [address] Dr. Jose Elias Strong Hematocrit (Bld) [Volume fraction] 29.4 % Critically low 36.0-48.[address] [facility] Comment on above: Performed By: #### C BC #### [facility] [address] [place] [address] Dr. Jose Elias Strong Hemoglobin (Bld) [Mass/Vol] 9.5 g/dL Critically low 12.0 -16.0 [facility] Comment on above: Performed By: #### C BC #### [facility] [address] [place] [address] Dr. Jose Elias Strong IG # 0.14 10e3/ul Critically high 0.00-0.03 [facility] Comment on above: Performed By: #### C BC #### [facility] [address] [place] [address] Dr. Jose Elias Strong IG % 1.4 % Critically high 0.0-0.5 [facility] Comment on above: Performed By: #### C BC #### [facility] [address] [address] [address] Jose Elias Strong LYMPH # 1.6 103/ul Normal 1.2-3.8 [facility] Comment on above: Performed By: #### C BC #### [facility] [address] [place] [address] Dr. Jose Elias Strong Lymphocytes/100 WBC (Bld) 15.5 % Critically low 20.5-6 0.0 [facility] Comment on above: Performed By: #### C BC #### [facility] [address] [place] [address] Dr. Jose Elias Strong MANUAL DIFF REQ NO Normal [facility] Comment on above: Performed By: #### C BC #### [facility] [address] [place] [address] Dr. Jose Elias Strong MCH (RBC) [Entitic mass] 26.8 pg Normal 26.7-34.0 [facility] Comment on above: Performed By: #### C BC #### [facility] [address] [place] [address] Dr. Jose Elias Strong MCHC (RBC) [Mass/Vol] 32.3 g/dL Normal 29.9-35.2 [facility] Comment on above: Performed By: #### C BC #### [facility] [address] [place] [address] Dr. Jose Elias Strong MCV (RBC) [Entitic vol] 82.8 fL Normal 81.0-99.0 [facility] Comment on above: Performed By: #### C BC #### [facility] [address] [place] [address] Dr. Jose Elias Strong MONO # 1.2 103/ul Critically high 0.3-0.8 [facility] Comment on above: Performed By: #### C BC #### [facility] [address] [place] [address] Dr. Jose Elias Strong Monocytes/100 WBC (Bld) 12.2 % Critically high 1.7-12. 0 [facility] Comment on above: Performed By: #### C BC #### [facility] [address] [address] [address] Jose Elias Strong NEUT # 7.0 103/ul Critically high 1.4-6.5 [facility] Comment on above: Performed By: #### C BC #### [facility] [address] [address] [address] Jose Elias Strong Neutrophils/100 WBC (Bld) 68.6 % Normal 43.0-75.0 [facility] Comment on above: Performed By: #### C BC #### [facility] [address] [address] [address] Jose Elias Strong Platelet mean volume (Bld) [Entitic vol] 9.1 fL Critically low 9.5-13.[address] [facility] Comment on above: Performed By: #### C BC #### [facility] [address] [address] [address] Jose Elias Strong PLT 309 103/ul Normal 150-450 [facility] Comment on above: Performed By: #### C BC #### [facility] [address] [address] [address] Jose Elias Strong RBC 3.55 106/ul Critically low 4.20-5.40 [facility] Comment on above: Performed By: #### C BC #### [facility] [address] [address] [address] Jose Elias Strong WBC 10.1 103/ul Normal 4.0-11.0 [facility] Comment on above: Performed By: #### C BC #### [facility] [address] [address] [address] Jose Elias Strong GLYCOHEMOGLOBIN A1Con 2021 ADA RECOMMENDATION ADA THERAPEUTIC TARG ET 6.0 - 7.0 ACTION SUGGESTED > 7.0 Normal [facility] Comment on above: Performed By: #### T NS #### [facility] [address] [place] [address] Dr. Jose Elias Strong Glucose [Mass/Vol] 97 mg/dL Normal [facility] Comment on above: Performed By: #### T NS #### [facility] [address] [address] [address] Jose Elias Strong HbA1c (Bld) [Mass fraction] 5.0 % Normal <=6.0 [facility] Comment on above: Performed By: #### T NS #### [facility] [address] [address] [address] Jose Elias Strong [place] 10-24-2020 Consent [id number] :127 [facility] In office Testingon 10-25-19 21 In office Testing [id number]:127 [facility] Registrationon 10-24-2020 Registration [id number] CD:127 [facility] Registration [id number] CD:127 [facility] Encounters Encounter Date Encounter Type Care Provider Facility Start: 03-19-2023 End: 03-19-2023 ambulatory MARY MARIE Not Available Start: 12-10-2022 ambulatory ALEXANDER Myers [facility] Start: 11-19-2022 End: 11-19-2022 ambulatory YOMAIRA [facility] Start: 10-28-2022 End: 10-29-2022 ambulatory ALEXANDER [facility] Start: 08-29-2022 ambulatory YOMAIRA [facility] Start: 08-19-2022 End: 08-19-2022 Emergency department patient visit YOMAIRA [facility] Start: 08-08-2022 End: 08-08-2022 Emergency department patient visit JERRY WALLS [facility] Start: 06-04-2022 End: 06-04-[address] MARY [...] MARIE Payers Date Payer Category Payer Medicaid [id number] 1995 Unknown [id number] 2.16.84 [id number] 1995 Unknown [id number] 2.16.84 0.1.907380.3.579.2.593 1995 Unknown [id number] 2.16.84 0.1.180147.3.579.2.593 1995 Unknown [id number] 2.16.84 0.1.241248.3.579.2.593 1995 Unknown [id number] 2.16.84 0.1.909831.3.579.2.593 1995 Unknown [id number] 2.16.84 0.1.049631.3.579.2.593 1995 Unknown [id number] 2.16.84 0.1.426039.3.579.2.593 1995 Unknown [id number] 2.16.84 0.1.824840.3.579.2.593 1995 Unknown [id number] 2.16.84 0.1.223510.3.579.2.1213 1995 Unknown [id number] 2.16.84 0.1.241628.3.579.2.1212 1995 Unknown [id number] 2.16.84 0.1.092105.3.579.2.1212 1995 Unknown [id number] 2.16.840 .1.724004.3.579.2.1212 1995 Unknown [id number] 2.16.840 .1.240036.3.579.2.1212 1995 Unknown [id number] 2.16.840 .1.981021.3.579.2.1212 1995 Unknown [id number] 2.16.840. 1.047315.3.579.2.1259 1959 Unknown [id number] Summary Purpose Family History No Family History Records FoundNo Family History Records FoundNo Family History Records FoundNo Family History Records Found Advance Directives No Advanced Directives Records FoundNo Advanced Directives Records FoundNo Advanced Directives Records FoundNo Advanced Directives Records Found Additional Source Comments INFORMATION SOURCE (unrecogn ized section and content) DATE CREATED AUTHOR 10/25/2020 [facility] DATE CREATED AUTHOR AUTHOR'S ORGANIZ ATION 06/11/[address] [facility] DATE CREATED AUTHOR AUTHOR'S ORGANIZ ATION 12/16/2022 [facility] DATE CREATED AUTHOR AUTHOR'S ORGANIZ ATION 03/20/2023 [facility] FOR RECORDS PERTAINING TO PATIENTS WHO ARE [...] BE BASED ON THE PRIMARY CLINICAL RECORDS. [facility] [employer] provides no warranty or guarantee of the accuracy or completeness of information in this document.
[2023-04-23 12:17] LABS: Glucose 1 Hour 127 mg/dL
[2023-04-23 12:25] LABS: Basophils Absolute Auto 0.1 10^3/uL (0.0-0.1); Basophils Percent Auto 0.4 % (0.2-2.0); Eosinophils Absolute Auto 0.2 10^3/uL (0.0-0.7); Eosinophils Percent Auto 1.8 % (0.9-7.0); Hemoglobin 8.3 g/dL (12.0-16.0); Immature Granulocytes Abs Auto 0.19 10^3/uL (0.00-0.03); Immature Granulocytes Pct Auto 1.7 % (0.0-0.5); Lymphocytes Absolute Auto 1.5 10^3/uL (1.2-3.8); Lymphocytes Percent Auto 12.9 % (20.5-60.0); Mean Corpuscular HGB Conc 29.6 g/dL (29.9-35.2); Mean Corpuscular Hemoglobin 24.5 pg (26.7-34.0); Mean Corpuscular Volume 82.6 fL (81.0-99.0); Mean Platelet Volume 9.4 fL (9.5-13.5); Monocytes Absolute Auto 0.9 10^3/uL (0.3-0.8); Monocytes Percent Auto 7.6 % (1.7-12.0); Neutrophils Absolute Auto 8.5 10^3/uL (1.4-6.5); Neutrophils Percent Auto 75.6 % (43.0-75.0); Platelet Count 282 10^3/uL (150-450); Red Blood Count 3.39 10^6/uL (4.20-5.40); White Blood Count 11.2 10^3/uL (4.0-11.0)
== END 2023-04-23 10:47 | disposition home or self-care (01) ==
LOC: LAB 10:49
PROVIDERS: PCP Family Medicine; Visit Provider Obstetrics & Gynecology
DX: Z34.92 Encounter for supervision of normal pregnancy, unspecified, second trimester (principal)
CPT/HCPCS: 36415; 82950; 85025

== ENCOUNTER 2023-04-30 07:42 | Outpatient (RCR) | payer OTHER, SELFPAY ==
[2023-04-30 14:55] VITALS: BP 116/74; PULSE 108; RESP 18; TEMP 37.2; O2SAT 96
--- NOTE | 2023-04-30 15:26 | PC.NURSE ---
Patient is here for injectafer, she denies any complaints. IV has good blood return and she is tolerating infusion well.
--- NOTE | 2023-04-30 15:44 | PC.NURSE ---
Patient tolerated infusion well without any s/s of reaction. IV was discontinued, and patient was discharged home ambulatory.
== END 2023-04-30 16:00 | disposition home or self-care (01) ==
LOC: INF 07:42
PROVIDERS: PCP Family Medicine; Visit Provider Obstetrics & Gynecology
DX: O99.019 Anemia complicating pregnancy, unspecified trimester (principal); D64.9 Anemia, unspecified; Z3A.00 Weeks of gestation of pregnancy not specified
CPT/HCPCS: 96365; J1439

== ENCOUNTER 2023-05-07 07:29 | Outpatient (RCR) | payer OTHER, SELFPAY ==
[2023-05-07 13:45] VITALS: BP 100/68; PULSE 104; RESP 16; TEMP 36.7; O2SAT 98
[2023-05-07] MEDS: FERRIC CARBOXYMALTOSE 750 MG in 0.9 % SODIUM CHLORIDE 250 ML 1060 MG IV (14:07)
== END 2023-06-04 23:59 | disposition home or self-care (01) ==
LOC: INF 07:29
PROVIDERS: PCP Family Medicine; Visit Provider Family Medicine
DX: O99.019 Anemia complicating pregnancy, unspecified trimester (principal); D64.9 Anemia, unspecified; Z3A.00 Weeks of gestation of pregnancy not specified
CPT/HCPCS: 96365; J1439

== ENCOUNTER 2023-06-03 07:20 | Outpatient (OUT) | payer OTHER, SELFPAY ==
--- OUTSIDE RECORDS SUMMARY | 2023-06-03 07:25 | XMS_ITS | CCD ---
Author Name Unknown Address [facility] [address] [place] [address] Organization [facility] Care Team Providers Care Airveyor Operator Name Role Phone FRANK, DR HERNANDEZ Admitting [...] FRANK, DR HERNANDEZ Attending Unavailable KARMA, DR LIZABEHT Kauffman [facility] Unavail able FRANK, DR [...] LAWLER, YOMAIRA GUILLEN Attending YOMAIRA Salvador Admitting Unavailab YOMAIRA Rocha Attending Unavailab YOMAIRA Rocha Consulting Unavailab adeline WALLS, ANAS Attending Unavailable ALZTJ, ANAS Attending Unavailable FRANK, MARY Attending Unavailable ROCIO, SHIVA Attending Unavailable FRANK, MARY Attending Unavailable Allergies Allergy Classification Reported Allergen(s) Allergy Type Date of Onset Reaction(s) Facility (2 sources) Latex; Translations: [LATEX] Drug allergy (disorder) 6 [facility] Repository (2 sources) Leucine; Translations: [NICKEL] Drug Allergy 7 [facility] Rep[facility] (2 sources) Penicillins; Translations: [PENICILLINS] Drug allergy (disorder) 7 [facility] Rep[facility] (1 source) Shellfish Drug allergy (disorder) 7 [facility] Rep[facility] (1 source) Iodine; Translations: [IODINE] Drug Allergy [address] [facility] Repository (1 source) SHELLFISH CONTAINING PRODUCTS; Translations: [SHELLFISH CONTAINING PRODUCTS] Propensity to adverse reactions to drug (disorder) [address] [facility] Repository (1 source) VENOM-HONEY BEE; Translations: [VENOM-HONEY BEE] Propensity to adverse reactions to drug (disorder) [address] [facility] Repository Problems Active Problems Problem [...] Results Test Name Value Interpretation Reference Range Facility HCG, Urineon 11-19-2022 Beta HCG ( test) Ql (U) Negative Normal [facility] Comment on above: Order Comment: The c alculated GFR uses the (IDMS)-traceable creatinine MDRD equation and is reported in mL/min/1.73 square meters. This formula is not recommended for use with individuals with unstable creatinine concentrations, extremes in muscle mass and/or body size, or alternative diets and may not be suitable for all patient populations. Testing performed at [facility], [address] [place] [address] 16478 Result Comment: Note : This test provides only a presumptive diagnosis for . If the HCG result is inconsistent with clinical evidence, results should be confirmed with an alternative method, such as a quantitative HCG. Basic Metabolic Profileon ANIO 11 mmol/L Low 12-[address] [facility] Comment on above: Order Comment: Testi ng performed at [facility], [address] [place] [address] 72753 Calcium [Mass/Vol] 9.5 mg/dL Normal 8.4-10.2 [facility] Comment on above: Order Comment: Testi ng performed at [facility], [address] [place] [address] 28784 Chloride [Moles/Vol] 107 mmol/L Normal 98-107 [facility] Comment on above: Order Comment: Testi ng performed at [facility], [address] [place] [address] 90026 CO2 [Moles/Vol] 23.0 mmol/L Normal 22.0-30.0 [facility] Comment on above: Order Comment: Testi ng performed at [facility], [address] [place] [address] 73801 Creatinine [Mass/Vol] 0.7 mg/dL Normal 0.6-1.[address] [facility] Comment on above: Order Comment: Testi ng performed at [facility], [address] [place] [address] Glucose [Mass/Vol] 118 mg/dL High 74-106 [facility] Comment on above: Order Comment: Testi ng performed at [facility], [address] [place] [address] 02755 Potassium [Moles/Vol] 4.1 mmol/L Normal 3.3-4.[address] [facility] Comment on above: Order Comment: Testi ng performed at [facility], [address] [place] [address] 01638 Sodium [Moles/Vol] 137 mmol/L Normal 137-145 [facility] Comment on above: Order Comment: Testi ng performed at [facility], [address] [place] [address] 92820 Urea nitrogen [Mass/Vol] 14 mg/dL Normal 8-[address] [facility] Comment on above: Order Comment: Testi ng performed at [facility], [address] [place] [address] 21495 CBC w/Auto Diffon 08-19-2022 Basophils (Bld) [#/Vol] 0.04 10*3/uL Normal 0.00-0.[address] [facility] Comment on above: Order Comment: [...] is no longer indicated. Testing performed at [facility], [address] [place] [address] 36597 Eosinophils (Bld) [#/Vol] 0.05 10*3/uL Normal 0.00-0.[address] [facility] Comment on above: Order Comment: [...] is no longer indicated. Testing performed at [facility], [address] [place] [address] 95257 Erythrocyte distribution width (RBC) [Ratio] 13.3 % Normal 11.7-14.[address] [facility] Comment on above: Order Comment: [...] is no longer indicated. Testing performed at [facility], [address] [place], [place] [id number] Hematocrit (Bld) [Volume fraction] 36.1 % Normal 34.1-44.[address] [facility] Comment on above: Order Comment: [...] is no longer indicated. Testing performed at [facility], [address] [place] [address] 47317 Hemoglobin (Bld) [Mass/Vol] 12.0 g/dL Normal 11.2-15.[address] [facility] Comment on above: Order Comment: [...] is no longer indicated. Testing performed at [facility], [address] [place] [address] 65544 IG % (B) 0.6 % High 0.0-0.[address] [facility] Comment on above: Order Comment: [...] is no longer indicated. Testing performed at [facility], [address] [place] [address] 12444 IG# (B) 0.14 10*3/uL High 0.00-0.[address] [facility] Comment on above: Order Comment: [...] is no longer indicated. Testing performed at [facility], [address] [place] [address] 31367 Lymphocytes (Bld) [#/Vol] 0.81 10*3/uL Low 1.20-3.[address] [facility] Comment on above: Order Comment: [...] is no longer indicated. Testing performed at [facility], [address] [place] [address] 89672 MCH (RBC) [Entitic mass] 28.5 pg Normal 25.6-32.[address] [facility] Comment on above: Order Comment: [...] is no longer indicated. Testing performed at [facility], [address] [place] [address] 95205 MCHC (RBC) [Mass/Vol] 33.2 g/dL Normal 32.2-35.[address] [facility] Comment on above: Order Comment: [...] is no longer indicated. Testing performed at [facility], [address] [place] [address] 48340 MCV (RBC) [Entitic vol] 85.7 fL Normal 79.4-94.[address] [facility] Comment on above: Order Comment: [...] is no longer indicated. Testing performed at [facility], [address] [place] [address] 99900 Monocytes (Bld) [#/Vol] 1.81 10*3/uL High 0.20-0.[address] [facility] Comment on above: Order Comment: [...] is no longer indicated. Testing performed at [facility], [address] [place] [address] 22552 Neutrophils (Bld) [#/Vol] 20.04 10*3/uL High 1.60-6.[address] [facility] Comment on above: Order Comment: [...] is no longer indicated. Testing performed at [facility], [address] [place] [address] 47686 NRBC % (B) 0.0 /100{WBC} Normal 0.0-0.[address] [facility] Comment on above: Order Comment: [...] is no longer indicated. Testing performed at [facility], [address] [place] [address] 94248 NRBC# (B) 0.00 10*3/uL Normal 0.00-0.[address] [facility] Comment on above: Order Comment: [...] is no longer indicated. Testing performed at [facility], [address] [place] [address] 36824 Platelet mean volume (Bld) [Entitic vol] 9.9 fL Normal 9.4-12.[address] [facility] Comment on above: Order Comment: [...] is no longer indicated. Testing performed at [facility], [address] [place] [address] 40109 Platelets (Bld) [#/Vol] 267 10*3/uL Normal 182-[address] [facility] Comment on above: Order Comment: [...] is no longer indicated. Testing performed at [facility], [address] [place] [address] 16733 RBC (Bld) [#/Vol] 4.21 10*6/uL Normal 3.93-5.22 [facility] Comment on above: Order Comment: Immature Gran [...] is no longer indicated. Testing performed at [facility], [address] [place] [address] 55761 RDW-SD (B) 41.1 fL Normal 36.4-46.[address] [facility] Comment on above: Order Comment: [...] is no longer indicated. Testing performed at [facility], [address] [place] [address] 82345 WBC (Bld) [#/Vol] 22.9 10*3/uL High 4.0-10.0 [facility] Comment on above: Order Comment: Immature Gran [...] is no longer indicated. Testing performed at [facility], [address] [place] [address] NECK WITHOUT CONTRASTon 0 08-19-2022 CT [...] study without IV contrast. 2. Progressive asymmetric enlargement/thickenin g of the right pharyngeal tonsil with findings [...] [place] MD On: 08/19/2022 1:[address] [facility] EST Glomerular Filtration Ra jude 08-19-2022 EAGFR (B) >60 Normal >[address] [facility] Comment on above: Order Comment: The c alculated GFR uses the (IDMS)-traceable creatinine MDRD equation and is reported in mL/min/1.73 square meters. This formula is not recommended for use with individuals with unstable creatinine concentrations, extremes in muscle mass and/or body size, or alternative diets and may not be suitable for all patient populations. Testing performed at [facility], [address] [place] [address] 09121 Result Comment: The reported eGFR is based on a non- patient, for Americans multiply the result by 1.212. HCG, Serumon 08-19-2022 HCGS Negative Normal [facility] Comment on above: Order Comment: Testi ng performed at [facility], [address] [place] [address] Result Comment: Note : This test provides only a presumptive diagnosis for . If the HCG result is inconsistent with clinical evidence, results should be confirmed with an alternative method, such as a quantitative HCG. Man Diffon 08-19-2022 Eos, Diff 2 % Normal 0-[address] [facility] Comment on above: Order Comment: Testi ng performed at [facility], [facility] [place] [address] Lymphocytes/100 WBC (Bld) 3 % Low 20-[address] [facility] Comment on above: Order Comment: Testi ng performed at [facility], [address] [place] [address] 30251 [place], Diff 6 % Normal 5-[address] [facility] Comment on above: Order Comment: Testi ng performed at [facility], [address] [place] [address] 24169 Segs. Diff 89 % High 34-[address] [facility] Comment on above: Order Comment: Testi ng performed at [facility], [address] [place] [address], [place] [address] Slide Scan Normal Normal Normal [facility] Comment on above: Order Comment: Testi ng performed at [facility], [facility] [place] [address] Basic Metabolic Profileon ANIO 12 mmol/L Normal 12-[address] [facility] Comment on above: Order Comment: Testi ng performed at [facility], [facility] [place] [address] Calcium [Mass/Vol] 9.1 mg/dL Normal 8.4-10.2 [facility] Comment on above: Order Comment: Testi ng performed at [facility], [address] [place] [address] Chloride [Moles/Vol] 106 mmol/L Normal 98-107 [facility] Comment on above: Order Comment: Testi ng performed at [facility], [facility] [place] [address] CO2 [Moles/Vol] 27.0 mmol/L Normal 22.0-30.0 [facility] Comment on above: Order Comment: [facility], [address] [place] [address] 74056 Creatinine [Mass/Vol] 0.6 mg/dL Normal 0.6-1.[address] [facility] Comment on above: Order Comment: Testi ng performed at [facility], [address] [place] [address] 09782 Glucose [Mass/Vol] 95 mg/dL Normal 74-106 [facility] Comment on above: Order Comment: Testi ng performed at [facility], [address] [place] [address] 43731 Potassium [Moles/Vol] 4.1 mmol/L Normal 3.3-4.[address] [facility] Comment on above: Order Comment: Testi ng performed at [facility], [address] [place] [address] 03198 Sodium [Moles/Vol] 141 mmol/L Normal 137-145 [facility] Comment on above: Order Comment: Testi ng performed at [facility], [address] [place] [address] 72446 Urea nitrogen [Mass/Vol] 9 mg/dL Normal 8-[address] [facility] Comment on above: Order Comment: Testi ng performed at [facility], [address] [place] [address] 37789 CBC w/Auto Diffon 08-08-2022 Basophils (Bld) [#/Vol] 0.04 10*3/uL Normal 0.00-0.[address] [facility] Comment on above: Order Comment: [...] is no longer indicated. Testing performed at [facility], [address] [place] [address] 94924 Basophils/100 WBC (Bld) 0.4 % Normal 0.1-1.[address] [facility] Comment on above: Order Comment: [...] is no longer indicated. Testing performed at [facility], [address] [place] [address] 44874 Eosinophils (Bld) [#/Vol] 0.21 10*3/uL Normal 0.00-0.[address] [facility] Comment on above: Order Comment: [...] is no longer indicated. Testing performed at [facility], [address] [place] [address] 62497 Eosinophils/100 WBC (Bld) 2.1 % Normal 0.7-5.[address] [facility] Comment on above: Order Comment: [...] is no longer indicated. Testing performed at [facility], [address] [place] [address] 08977 Erythrocyte distribution width (RBC) [Ratio] 12.9 % Normal 11.7-14.[address] [facility] Comment on above: Order Comment: [...] is no longer indicated. Testing performed at [facility] [employer], [address] [place] [address] 90219 Hematocrit (Bld) [Volume fraction] 35.4 % Normal 34.1-44.[address] [facility] Comment on above: Order Comment: [...] is no longer indicated. Testing performed at [facility], [address] [place] [address] Hemoglobin (Bld) [Mass/Vol] 11.2 g/dL Normal 11.2-15.[address] [facility] Comment on above: Order Comment: [...] is no longer indicated. Testing performed at [facility], [address] [place], [place] [phone] IG % (B) 0.4 % Normal 0.0-0.[address] [facility] Comment on above: Order Comment: [...] is no longer indicated. Testing performed at [facility], [address] [place], [place] [phone] IG# (B) 0.04 10*3/uL High 0.00-0.[address] [facility] Comment on above: Order Comment: [...] is no longer indicated. Testing performed at [facility], [address] [place] [address] 80972 Lymphocytes (Bld) [#/Vol] 1.60 10*3/uL Normal 1.20-3.[address] [facility] Comment on above: Order Comment: [...] is no longer indicated. Testing performed at [facility], [address] [place] [address] 99994 Lymphocytes/100 WBC (Bld) 16.3 % Low 19.3-51.[address] [facility] Comment on above: Order Comment: [...] is no longer indicated. Testing performed at [facility], [address] [place] [address] 02700 MCH (RBC) [Entitic mass] 27.7 pg Normal 25.6-32.[address] [facility] Comment on above: Order Comment: [...] is no longer indicated. Testing performed at [facility], [address] [place] [address] 19990 MCHC (RBC) [Mass/Vol] 31.6 g/dL Low 32.2-35.[address] [facility] Comment on above: Order Comment: [...] is no longer indicated. Testing performed at [facility], [address] [place] [address] 39145 MCV (RBC) [Entitic vol] 87.4 fL Normal 79.4-94.[address] [facility] Comment on above: Order Comment: [...] is no longer indicated. Testing performed at [facility], [address] [place] [address] 61457 Monocytes (Bld) [#/Vol] 0.88 10*3/uL Normal 0.20-0.[address] [facility] Comment on above: Order Comment: [...] is no longer indicated. Testing performed at [facility], [address] [place] [address] 94286 Monocytes/100 WBC (Bld) 8.9 % Normal 4.7-12.[address] [facility] Comment on above: Order Comment: [...] is no longer indicated. Testing performed at [facility], [address] [place] [address] 90557 Neutrophils (Bld) [#/Vol] 7.07 10*3/uL High 1.60-6.[address] [facility] Comment on above: Order Comment: [...] is no longer indicated. Testing performed at [facility], [address] [place] [address] 90632 Neutrophils/100 WBC (Bld) 71.9 % High 34.0-71.[address] [facility] Comment on above: Order Comment: [...] is no longer indicated. Testing performed at [facility], [address] [place] [address] 45013 NRBC % (B) 0.0 /100{WBC} Normal 0.0-0.[address] [facility] Comment on above: Order Comment: [...] is no longer indicated. Testing performed at [facility], [address] [place] [address] 95495 NRBC# (B) 0.00 10*3/uL Normal 0.00-0.[address] [facility] Comment on above: Order Comment: [...] is no longer indicated. Testing performed at [facility], [address] [place] [address] 65427 Platelet mean volume (Bld) [Entitic vol] 9.2 fL Low 9.4-12.[address] [facility] Comment on above: Order Comment: [...] is no longer indicated. Testing performed at [facility], [address] [place] [address] 77193 Platelets (Bld) [#/Vol] 315 10*3/uL Normal 182-[address] [facility] Comment on above: Order Comment: [...] is no longer indicated. Testing performed at [facility], [address] [place] [address] 19544 RBC (Bld) [#/Vol] 4.05 10*6/uL Normal 3.93-5.22 [facility] Comment on above: Order Comment: Immature Gran [...] is no longer indicated. Testing performed at [facility], [address] [place] [address] 08307 RDW-SD (B) 41.0 fL Normal 36.4-46.[address] [facility] Comment on above: Order Comment: [...] is no longer indicated. Testing performed at [facility], [address] [place] [address] 58493 WBC (Bld) [#/Vol] 9.8 10*3/uL Normal 4.0-10.0 [facility] Comment on above: Order Comment: Immature [...] is no longer indicated. Testing performed at [facility], [address] [place] [address] NECK WITHOUT CONTRASTon 0 08-08-2022 CT [...] Schultz MD On: 08/08/2022 4:[address] [facility] EST Glomerular Filtration Ra jude 08-08-2022 EAGFR (B) >60 Normal >[address] [facility] Comment on above: Order Comment: The c alculated GFR uses the (IDMS)-traceable creatinine MDRD equation and is reported in mL/min/1.73 square meters. This formula is not recommended for use with individuals with unstable creatinine concentrations, extremes in muscle mass and/or body size, or alternative diets and may not be suitable for all patient populations. Testing performed at [facility], [address] [place] [address] Result Comment: The reported eGFR is based on a non- patient, for Americans multiply the result by 1.212. Pap IG, rfx Aptima HPV, rfx 16/18,45on 06-11-2022 . . Normal [facility] Comment on above: Result Comment: Perf ormed at: WB Performed By: #### P APHR2A #### [facility] [address] [place] [address] Dr. Jose Elias Strong DIAGNOSIS: Comment Normal [facility] Comment on above: Result Comment: NEGA TIVE FOR INTRAEPITHELIAL LESION OR MALIGNANCY. Performed at: WB Performed By: #### P APHR2A #### [facility] [address] [address] [address] Jose Elias [facility] HPV Aptima Negative Normal Negative [facility] Comment on above: Result Comment: This nucleic acid amplification test detects fourteen high-risk HPV types (16,18,31,33,35,39,45,51,52,56,58,59,66,68) without differentiation. Performed at: =G Performed By: #### P APHR2A #### [facility] [address] [address] [address] Jose [facility] HPV Genotype Reflex Comment Normal [facility] Comment on above: Result Comment: Crit erbarbie not met, HPV Genotype not performed. Performed at: WB Performed By: #### P APHR2A #### [facility] [address] [address] [address] Jose [facility]as [facility] Methodology: Comment Normal [facility] Comment on above: Result Comment: This liquid based ThinPrep(R) pap test was screened with the use of an image guided system. Performed at: WB Performed By: #### P APHR2A #### [facility] [address] [place] [address] Dr. Jose Elias [facility] Note: Comment Normal [facility] Comment on above: Result Comment: The [...] WB Performed By: #### P APHR2A #### [facility] [address] [place] [address] Dr. Jose Elias [facility] Performed by: Comment Normal [facility] Comment on above: Result Comment: Koffi Hutchinson, Lpc (ASCP) Performed at: WB Performed By: #### P APHR2A #### [facility] [address] [place] [address] Dr. Jose Elias [facility] Specimen adequacy: Comment Normal [facility] Comment on above: Result Comment: Sati sfactory for evaluation. Endocervical and/or squamous metaplastic cells (endocervical component) are present. Performed at: WB Performed By: #### P APHR2A #### [facility] [address] [place] [address] Dr. Jose [facility]as [facility] PAP ACOG PANEL 2: 21 to 29on 11-20-2021 . . Normal [facility] Comment on above: Performed By: #### [id number] #### [facility] [address] [place] [address] Dr. Jose Elias Strong Age Gdln ACOG Testing 21-29 Normal [facility] Comment on above: Performed By: #### [id number] #### [facility] [address] [place] [address] Dr. Jose Elias Strong DIAGNOSIS: Comment [facility] Comment on above: Result Comment: NEGA TIVE FOR INTRAEPITHELIAL LESION OR MALIGNANCY. REACTIVE CELLULAR CHANGES AND/OR REPAIR ARE PRESENT. Performed By: #### [id number] #### [facility] [address] [place] [address] Dr. Jose Elias Strong Electronically signed by: Comment Normal [facility] [facility] Comment on above: Result Comment: Melinda Patel MD, Pathologist Performed By: #### [id number] #### [facility] [address] [place] [address] Dr. Jose Elias Strong Methodology: Comment [facility] Comment on above: Result Comment: This liquid based ThinPrep(R) pap test was screened with the use of an image guided system. Performed By: #### [id number] #### [facility] [address] [place] [address] Dr. Jose Elias Strong Note: Comment [facility] Comment on above: Result Comment: The Pap smear is a screening test designed to aid in the detection of premalignant and malignant conditions of the uterine cervix. It is not a diagnostic procedure and should not be used as the sole means of detecting cervical cancer. Both false-positive and false-negative reports do occur. . Performed By: #### [id number] #### [facility] [address] [place] [address] Dr. Jose Elias Strong Performed by: Comment Normal [facility] Comment on above: Result Comment: Lilian Romero Lpc (ASCP) Performed By: #### [id number] #### [facility] [address] [place] [address] Dr. Jose Elias Strong Reflex Criteria: Comment [facility] Comment on above: Result Comment: The HPV DNA reflex criteria were not met with this specimen result therefore, no HPV testing was performed. . Performed By: #### [id number] #### [facility] [address] [place] [address] Dr. Jose Elias Strogn Specimen adequacy: Comment Normal [facility] Comment on above: Result Comment: Sati sfactory for evaluation. Endocervical and/or squamous metaplastic cells (endocervical component) are present. Performed By: #### [id number] #### [facility] [address] [place] [address] Dr. Jose Elias Strong CBC W MANUAL DIFFon 08-21-19 22 ANISOCYTOSIS 1+ Normal [facility] Comment on above: Performed By: #### T NS #### [facility] [address] [place] [address] Dr. Jose Elias Strong ATYPICAL LYMPH # Normal [facility] Comment on above: Performed By: #### T NS #### [facility] [address] [place] [address] Dr. Jose Elias Strong ATYPICAL LYMPH % Normal [facility] Comment on above: Performed By: #### T NS #### [facility] [address] [place] [address] Dr. Jose Elias Strong BAND # 0.2 103/ul Normal 0.0-0.3 [facility] Comment on above: Performed By: #### T NS #### [facility] [address] [place] [address] Dr. Jose Elias Strong BAND % 1 % Normal 0-5 [facility] Comment on above: Performed By: #### T NS #### [facility] [address] [place] [address] Dr. Jose Elias Strong BASOM # 0.00 103/ul Normal 0.00-0.10 [facility] Comment on above: Performed By: #### T NS #### [facility] [address] [place] [address] Dr. Jose Elias Strong BASOM % 0.0 % Critically low 0.2-2.0 [facility] Comment on above: Performed By: #### T NS #### [facility] [address] [place] [address] Dr. Jose Elias Strong BLAST # Normal [facility] Comment on above: Performed By: #### T NS #### [facility] [address] [place] [address] Dr. Jose Elias Strong BLAST % Normal [facility] Comment on above: Performed By: #### T NS #### [facility] [address] [place] [address] Dr. Jose Elias Strong CORRECTED WBC Normal 4.0-11.0 [facility] Comment on above: Performed By: #### T NS #### [facility] [address] [place] [address] Dr. Jose Elias Strong EOS # 0.00 103/ul Normal 0.00-0.70 [facility] Comment on above: Performed By: #### T NS #### [facility] [address] [place] [address] Dr. Jose Elias Strong EOS% 0.0 % Critically low 0.9-7.0 [facility] Comment on above: Performed By: #### T NS #### [facility] [address] [place] [address] Dr. Jose Elias Strong HCT 27.5 % Critically low 36.0-48.0 [facility] Comment on above: Performed By: #### T NS #### [facility] [address] [place] [address] Dr. Jose Elias Strong HGB 8.1 g/dl Critically low 12.0-16.0 [facility] Comment on above: Performed By: #### T NS #### [facility] [address] [place] [address] Dr. Jose Elias Strong LYMPHM # 1.62 103/ul Normal 1.20-3.80 [facility] Comment on above: Performed By: #### T NS #### [facility] [address] [place] [address] Dr. Jose Elias Strong LYMPHM% 9.0 % Critically low 20.5-60.0 [facility] Comment on above: Performed By: #### T NS #### [facility] [address] [place] [address] Dr. Jose Elias Strong MCH 22.2 pg Critically low 26.7-34.0 [facility] Comment on above: Performed By: #### T NS #### [facility] [address] [address] [address] Jose Elias Strong MCHC 29.5 g/dl Critically low 29.9-35.2 [facility] Comment on above: Performed By: #### T NS #### [facility] [address] [address] [address] Jose Elias Strong MCV 75.3 fL Critically low 81.0-99.0 [facility] Comment on above: Performed By: #### T NS #### [facility] [address] [place] [address] Dr. Jose Elias Strong METAMYELOCYTE # Normal [facility] Comment on above: Performed By: #### T NS #### [facility] [address] [place] [address] Dr. Jose Elias Strong METAMYELOCYTE % Normal [facility] Comment on above: Performed By: #### T NS #### [facility] [address] [place] [address] Dr. Jose Elias Strong MONOM# 1.62 103/ul Critically high 0.30-0.80 [facility] Comment on above: Performed By: #### T NS #### [facility] [address] [place] [address] Dr. Jose Elias Strong MONOM% 9.0 % Normal 1.7-12.0 [facility] Comment on above: Performed By: #### T NS #### [facility] [address] [place] [address] Dr. Jose Elias Strong MPV 9.6 fL Normal 9.5-13.5 [facility] Comment on above: Performed By: #### T NS #### [facility] [address] [place] [address] Dr. Jose Elias Strong MYELOCYTE # Normal [facility] Comment on above: Performed By: #### T NS #### [facility] [address] [place] [address] Dr. Jose Elias Strong MYELOCYTE % Normal [facility] Comment on above: Performed By: #### T NS #### [facility] [address] [address] [address] Jose Elias Strong NRBC Normal [facility] Comment on above: Performed By: #### T NS #### [facility] [address] [address] [address] Jose Elias Strong PLT 308 103/ul Normal 150-450 [facility] Comment on above: Performed By: #### T NS #### [facility] [address] [address] [address] Jose Elias Strong RBC 3.65 106/ul Critically low 4.20-5.40 [facility] Comment on above: Performed By: #### T NS #### [facility] [address] [address] [address] Jose Elias Strong RDW 15.7 % Critically high 11.0-15.0 [facility] Comment on above: Performed By: #### T NS #### [facility] [address] [address] [address] Jose Elias Strong SEG # 14.58 103/ul Critically high 1.40-6.50 [facility] Comment on above: Performed By: #### T NS #### [facility] [address] [address] [address] Jose Elias Strong SEG % 81.0 % Critically high 43.0-75.0 [facility] Comment on above: Performed By: #### T NS #### [facility] [address] [address] [address] Jose Elias Strong WBC 18.0 103/ul Critically high 4.0-11.0 [facility] Comment on above: Performed By: #### T NS #### [facility] [address] [address] [address] Jose Elias Strong DRUG SCREEN RAPID (URINE)on 08-20-2021 AMP Negative Normal NEGATIVE [facility] Comment on above: Performed By: #### T NS #### [facility] [address] [address] [address] Jose Elias Strong BAR Negative Normal NEGATIVE [facility] Comment on above: Performed By: #### T NS #### [facility] [address] [place] [address] Dr. Jose Elias Strong BUP Negative Normal NEGATIVE [facility] Comment on above: Performed By: #### T NS #### [facility] [address] [place] [address] Dr. Jose Elias Strong BZO Negative Normal NEGATIVE [facility] Comment on above: Performed By: #### T NS #### [facility] [address] [place] [address] Dr. Jose Elias Strong PAXTON Negative Normal NEGATIVE [facility] Comment on above: Performed By: #### T NS #### [facility] [address] [place] [address] Dr. Jose Elias Strong CUT-OFFS SEE BELOW Normal [facility] Comment on above: Result Comment: AMP (Amphetamine): 500ng/mL, BAR (Barbituates): 200 ng/mL, BZO (Benzodiazepines): 150 ng/mL, BUP (Buprenorphine): 10 ng/mL, PAXTON (Cocaine): 150 ng/mL, mAMP (Methamphetamine): 500 ng/mL, MTD (Methadone): 200 ng/mL, OPI (Opiates): 100 ng/mL, OXY (Oxycodone): 100 ng/mL, PCP (Phencyclidine): 25 ng/mL, PPX (Propoxyphene): 300 ng/mL, THC (Cannabinoids): 50 ng/mL, TCA (Trycyclic Antidepressants): 300 ng/mL Performed By: #### T NS #### [facility] [address] [place] [address] Dr. Jose Elias Strong DRUG CUT HEADER DRUG CLASS TEST SYSTEM CUT-OFF CONCENTRATIONS ARE FOLLOWS: Normal [facility] Comment on above: Performed By: #### T NS #### [facility] [address] [place] [address] Dr. Jose Elias Strong mAMP Negative Normal NEGATIVE [facility] Comment on above: Performed By: #### T NS #### [facility] [address] [place] [address] Dr. Jose Elias Strong MTD Negative Normal NEGATIVE [facility] Comment on above: Performed By: #### T NS #### [facility] [address] [place] [address] Dr. Jose Elias Strong OPI Negative Normal NEGATIVE [facility] Comment on above: Performed By: #### T NS #### [facility] [address] [place] [address] Dr. Jose Elias Strong OXY Negative Normal NEGATIVE [facility] Comment on above: Performed By: #### T NS #### [facility] [address] [place] [address] Dr. Jose Elias Strong PCP Negative Normal NEGATIVE [facility] Comment on above: Performed By: #### T NS #### [facility] [address] [place] [address] Dr. Jose Elias Strong PPX Negative Normal NEGATIVE [facility] Comment on above: Performed By: #### T NS #### [facility] [address] [place] [address] Dr. Jose Elias Strong TCA Negative Normal NEGATIVE [facility] Comment on above: Performed By: #### T NS #### [facility] [address] [place] [address] Dr. Jose Elias Strong THC Negative Normal NEGATIVE [facility] Comment on above: Performed By: #### T NS #### [facility] [address] [place] [address] Dr. Jose Elias Strong UA (CLEAN/CATCH) SOFTWARE PRODUCT SPECIALIST/MICRO I F IND.on 08-20-2021 Bilirubin Ql (U) Negative Normal NEGATIVE [facility] Comment on above: Performed By: #### U MICRO, UACSIND #### [facility] [address] [place] [address] Dr. Jose Elias Strong Clarity (U) SL CLOUDY Abnormal CLEAR [facility] Comment on above: Performed By: #### U MICRO, UACSIND #### [facility] [address] [place] [address] Dr. Jose Elias Strong Color (U) RED Abnormal YELLOW [facility] Comment on above: Performed By: #### U MICRO, UACSIND #### [facility] [address] [place] [address] Dr. Jose Elias Strong Glucose Ql (U) Negative Normal NEGATIVE [facility] Comment on above: Performed By: #### U MICRO, UACSIND #### [facility] [address] [address] [address] Jose Elias Strong Hemoglobin Ql (U) LARGE Abnormal NEGATIVE [facility] Comment on above: Performed By: #### U MICRO, UACSIND #### [facility] [address] [address] [address] Jose Elias Strong Ketones Ql (U) 15 mg/dl Abnormal NEGATIVE [facility] Comment on above: Performed By: #### U MICRO, UACSIND #### [facility] [address] [address] [address] Jose Elias Strong LEUKOCYTES TRACE Abnormal NEGATIVE [facility] Comment on above: Performed By: #### U MICRO, UACSIND #### [facility] [address] [place] [address] Dr. Jose Elias Strong Nitrite Ql (U) Negative Normal NEGATIVE [facility] Comment on above: Performed By: #### U MICRO, UACSIND #### [facility] [address] [place] [address] Dr. Jose Elias Strong pH (U) 7.0 [pH] Normal 5-9 [facility] Comment on above: Performed By: #### U MICRO, UACSIND #### [facility] [address] [address] [address] Jose Elias Strong SPEC GRAVITY 1.020 Normal 1.005-<=1.025 [facility] Comment on above: Performed By: #### U MICRO, UACSIND #### [facility] [address] [address] [address] Jose Elias Strong UA PROTEIN 30 mg/dl Abnormal NEGATIVE/ TRACE [facility] Comment on above: Performed By: #### U MICRO, UACSIND #### [facility] [address] [place] [address] Dr. Jose Elias Strong UR MICRO IND INDICATED Normal [facility] Comment on above: Performed By: #### U MICRO, UACSIND #### [facility] [address] [address] [address] Jose Elias Strong Urobilinogen Qn (U) 0.2 {Mago'U}/dL Normal 0.2 - 1. 0 [facility] Comment on above: Performed By: #### U MICRO, UACSIND #### [facility] [address] [address] [address] Jose Elias Strong URINE MICROSCOPIC ONLYon BACTERIA NONE SEEN Normal NONE SEEN [facility] Comment on above: Performed By: #### U MICRO, UACSIND #### [facility] [address] [address] [address] Jose Elias Strong Bacteria identified Cx Nom (U) NOT INDICATED Normal [facility] Comment on above: Performed By: #### U MICRO, UACSIND #### [facility] [address] [address] [address] Jose Elias Strong CAST NONE SEEN Normal NONE SEEN [facility] Comment on above: Performed By: #### U MICRO, UACSIND #### [facility] [address] [address] [address] Jose Elias Strong Crystals LM Nom (Urine sed) NONE SEEN Normal NONE SEEN [facility] Comment on above: Performed By: #### U MICRO, UACSIND #### [facility] [address] [address] [address] Jose Elias Strong Epithelial cells LM Ql (Urine sed) NONE SEEN Normal NONE SEEN /RARE [facility] Comment on above: Performed By: #### U MICRO, UACSIND #### [facility] [address] [address] [address] Jose Elias Strong MUCOUS NONE SEEN Normal NONE SEEN [facility] Comment on above: Performed By: #### U MICRO, UACSIND #### [facility] [address] [address] [address] Jose Elias Strong RBC (U) [#/Vol] /uL Abnormal 0-2 [facility] Comment on above: Performed By: #### U MICRO, UACSIND #### [facility] [address] [address] [address] Jose Elias Strong WBC 0-2 Abnormal NONE SEEN [facility] Comment on above: Performed By: #### U MICRO, UACSIND #### [facility] [address] [place] [address] Dr. Jose Elias Strong CBC AUTO DIFFon 08-19-2021 BASO # 0.0 103/ul Normal 0.0-0.1 [facility] Comment on above: Performed By: #### T NS #### [facility] [address] [place] [address] Dr. Jose Elias Strong Basophils/100 WBC (Bld) 0.2 % Normal 0.2-2.0 [facility] Comment on above: Performed By: #### T NS #### [facility] [address] [place] [address] Dr. Jose Elias Strong EO # 0.1 103/ul Normal 0.0-0.7 [facility] Comment on above: Performed By: #### T NS #### [facility] [address] [place] [address] Dr. Jose Elias Strong Eosinophils/100 WBC (Bld) 0.7 % Critically low 0.9-7.0 [facility] Comment on above: Performed By: #### T NS #### [facility] [address] [place] [address] Dr. Jose Elias Strong Erythrocyte distribution width (RBC) [Ratio] 15.9 % Critically high 11.0-15.0 [facility] Comment on above: Performed By: #### T NS #### [facility] [address] [place] [address] Dr. Jose Elias Strong Hematocrit (Bld) [Volume fraction] 32.4 % Critically low 36.0-48.0 [facility] Comment on above: Performed By: #### T NS #### [facility] [address] [place] [address] Dr. Jose Elias Strong Hemoglobin (Bld) [Mass/Vol] 9.7 g/dL Critically low 12.0-16.0 [facility] Comment on above: Performed By: #### T NS #### [facility] [address] [place] [address] Dr. Jose Elias Strong IG # 0.19 10e3/ul Critically high 0.00-0.03 [facility] Comment on above: Performed By: #### T NS #### [facility] [address] [address] [address] Jose Elias Strong IG % 1.4 % Critically high 0.0-0.5 [facility] Comment on above: Performed By: #### T NS #### [facility] [address] [address] [address] Jose Elias Strong LYMPH # 1.9 103/ul Normal 1.2-3.8 [facility] Comment on above: Performed By: #### T NS #### [facility] [address] [place] [address] Dr. Jose Elias Strong Lymphocytes/100 WBC (Bld) 14.4 % Critically low 20.5-60.0 [facility] Comment on above: Performed By: #### T NS #### [facility] [address] [place] [address] Dr. Jose Elias Strong MANUAL DIFF REQ NO Normal [facility] Comment on above: Performed By: #### T NS #### [facility] [address] [place] [address] Dr. Jose Elias Strong MCH (RBC) [Entitic mass] 22.3 pg Critically low 26.7-34.0 [facility] Comment on above: Performed By: #### T NS #### [facility] [address] [place] [address] Dr. Jose Elias Strong MCHC (RBC) [Mass/Vol] 29.9 g/dL Normal 29.9-35.2 [facility] Comment on above: Performed By: #### T NS #### [facility] [address] [place] [address] Dr. Jose Elias Strong MCV (RBC) [Entitic vol] 74.5 fL Critically low 81.0-99.0 [facility] Comment on above: Performed By: #### T NS #### [facility] [address] [place] [address] Dr. Jose Elias Strong MONO # 1.4 103/ul Critically high 0.3-0.8 [facility] Comment on above: Performed By: #### T NS #### [facility] [address] [place] [address] Dr. Jose Elias Strong Monocytes/100 WBC (Bld) 10.1 % Normal 1.7-12.0 [facility] Comment on above: Performed By: #### T NS #### [facility] [address] [place] [address] Dr. Jose Elias Strong NEUT # 9.8 103/ul Critically high 1.4-6.5 [facility] Comment on above: Performed By: #### T NS #### [facility] [address] [place] [address] Dr. Jose Elias Strong Neutrophils/100 WBC (Bld) 73.2 % Normal 43.0-75.0 [facility] Comment on above: Performed By: #### T NS #### [facility] [address] [place] [address] Dr. Jose Elias Strong Platelet mean volume (Bld) [Entitic vol] 10.0 fL Normal 9.5-13.5 [facility] Comment on above: Performed By: #### T NS #### [facility] [address] [place] [address] Dr. Jose Elias Strong PLT 337 103/ul Normal 150-450 [facility] Comment on above: Performed By: #### T NS #### [facility] [address] [place] [address] Dr. Jose Elias Srtong RBC 4.35 106/ul Normal 4.20-5.40 [facility] Comment on above: Performed By: #### T NS #### [facility] [address] [place] [address] Dr. Jose Elias Strong WBC 13.4 103/ul Critically high 4.0-11.0 [facility] Comment on above: Performed By: #### T NS #### [facility] [address] [place] [address] Dr. Jose Elias Strong Covid-19 PCR ([facility])on 08-03 SARS-CoV-2 (COVID-19) RNA [place]+probe Ql (Unsp spec) Not detected Normal NOT DETECTED [facility] Comment on above: Result Comment: [...] for this test is supported by the [place] of [employer] and Human Service's declaration that [...] used). Performed By: #### C VDTBH #### [facility] [address] [place] [address] Dr. Jose Elias Strong TYPE AND SCREENon 08-19-2021 TYPE AND SCREEN Negative Normal [facility] Comment on above: Performed By: #### T NS #### [facility] [address] [place] [address] Dr. Jose Elias Strong GROUP B STREP CULTUREon 07-05 S. agalactiae Ag Ql (Unsp spec) Culture Observations: NEGATIVE FOR GROUP B STREPTOCOCCUS. Normal [facility] Comment on above: Performed By: #### G BSCX #### [facility] [address] [place] [address] Dr. Jose Elias Strong UA (CLEAN/CATCH) SOFTWARE PRODUCT SPECIALIST/MICRO I F IND.on 06-28-2021 Bilirubin Ql (U) Negative Normal NEGATIVE [facility] Comment on above: Performed By: #### U ACSIND UMICRO #### [facility] [address] [place] [address] Dr. Jose Elias Strong Clarity (U) CLEAR Normal CLEAR [facility] Comment on above: Performed By: #### U ACSIND, UMICRO #### [facility] [address] [address] [address] Jose Elias Strong Color (U) LT. YELLOW Normal YELLOW [facility] Comment on above: Performed By: #### U ACSIND, UMICRO #### [facility] [address] [address] [address] Jose Elias Strong Glucose Ql (U) Negative Normal NEGATIVE [facility] Comment on above: Performed By: #### U ACSIND, UMICRO #### [facility] [address] [address] [address] Jose Elias Strong Hemoglobin Ql (U) Negative Normal NEGATIVE [facility] Comment on above: Performed By: #### U ACSIND, UMICRO #### [facility] [address] [place] [address] Dr. Jose Elias Strong Ketones Ql (U) Negative Normal NEGATIVE [facility] Comment on above: Performed By: #### U ACSIND, UMICRO #### [facility] [address] [address] [address] Jose Elias Strong LEUKOCYTES TRACE Abnormal NEGATIVE [facility] Comment on above: Performed By: #### U ACSIND, UMICRO #### [facility] [address] [address] [address] Jose Elias Strong Nitrite Ql (U) Negative Normal NEGATIVE [facility] Comment on above: Performed By: #### U ACSIND, UMICRO #### [facility] [address] [address] [address] Jose Elias Strong pH (U) 6.5 [pH] Normal 5-9 [facility] Comment on above: Performed By: #### U ACSIND, UMICRO #### [facility] [address] [address] [address] Jose Elias Strong SPEC GRAVITY 1.015 Normal 1.005-<=1.025 [facility] Comment on above: Performed By: #### U ACSIND, UMICRO #### [facility] [address] [address] [address] Jose Elias Strong UA PROTEIN Negative Normal NEGATIVE/ TRACE [facility] Comment on above: Performed By: #### U ACSIND, UMICRO #### [facility] [address] [address] [address] Jose Elias Strong UR MICRO IND INDICATED Normal [facility] Comment on above: Performed By: #### U ACSIND, UMICRO #### [facility] [address] [address] [address] Jose Elias Strong Urobilinogen Qn (U) 0.2 {Mago'U}/dL Normal 0.2 - 1. 0 [facility] Comment on above: Performed By: #### U ACSIND, UMICRO #### [facility] [address] [address] [address] Jose Elias Strong URINE MICROSCOPIC ONLYon AMORPHOUS CRYSTALS FEW Normal [facility] Comment on above: Performed By: #### U ACSIND, UMICRO #### [facility] [address] [place] [address] Dr. Jose Elias Strong BACTERIA TRACE Abnormal NONE SEEN [facility] Comment on above: Performed By: #### U ACSIND, UMICRO #### [facility] [address] [place] [address] Dr. Jose Elias Strong Bacteria identified Cx Nom (U) NOT INDICATED Normal [facility] Comment on above: Performed By: #### U ACSIND, UMICRO #### [facility] [address] [place] [address] Dr. Jose Elias Strong CAST NONE SEEN Normal NONE SEEN [facility] Comment on above: Performed By: #### U ACSIND, UMICRO #### [facility] [address] [place] [address] Dr. Jose Elias Strong Crystals LM Nom (Urine sed) SEEN Abnormal NONE SEEN [facility] Comment on above: Performed By: #### U ACSIND, UMICRO #### [facility] [address] [place] [address] Dr. Jose Elias Strong Epithelial cells LM Ql (Urine sed) RARE Normal NONE SEEN /RARE [facility] Comment on above: Performed By: #### U ACSIND, UMICRO #### [facility] [address] [place] [address] Dr. Jose Elias Strong MUCOUS TRACE Abnormal NONE SEEN [facility] Comment on above: Performed By: #### U LAURENT LEDYRO #### [facility] [address] [place] [address] Dr. Jose Elias Strong RBC 0-2 Normal 0-2 [facility] Comment on above: Performed By: #### U BRODIE MANCILLARO #### [facility] [address] [place] [address] Dr. Jose Elias Strong WBC 2-5 Abnormal NONE SEEN [facility] Comment on above: Performed By: #### [facility] #### [facility] [address] [place] [address] Dr. Jose Elias Strong CBC AUTO DIFFon 06-19-2021 BASO # 0.0 103/ul Normal 0.0-0.1 [facility] Comment on above: Performed By: #### C BC #### [facility] [address] [place] [address] Dr. Jose Elias Strong Basophils/100 WBC (Bld) 0.3 % Normal 0.2-2.0 [facility] Comment on above: Performed By: #### C BC #### [facility] [address] [place] [address] Dr. Jose Elias Strong EO # 0.2 103/ul Normal 0.0-0.7 [facility] Comment on above: Performed By: #### C BC #### [facility] [address] [place] [address] Dr. Jose Elias Strong Eosinophils/100 WBC (Bld) 2.0 % Normal 0.9-7.0 [facility] Comment on above: Performed By: #### C BC #### [facility] [address] [place] [address] Dr. Jose Elias Strong Erythrocyte distribution width (RBC) [Ratio] 13.6 % Normal 11.0-15.0 [facility] Comment on above: Performed By: #### C BC #### [facility] [address] [place] [address] Dr. Jose Elias Strong Hematocrit (Bld) [Volume fraction] 29.4 % Critically low 36.0-48.0 [facility] Comment on above: Performed By: #### C BC #### [facility] [address] [place] [address] Dr. Jose Elias Strong Hemoglobin (Bld) [Mass/Vol] 9.5 g/dL Critically low 12.0-16.0 [facility] Comment on above: Performed By: #### C BC #### [facility] [address] [place] [address] Dr. Jose Elias Strong IG # 0.14 10e3/ul Critically high 0.00-0.03 [facility] Comment on above: Performed By: #### C BC #### [facility] [address] [place] [address] Dr. Jose Elias Strong IG % 1.4 % Critically high 0.0-0.5 [facility] Comment on above: Performed By: #### C BC #### [facility] [address] [place] [address] Dr. Jose Elias Strong LYMPH # 1.6 103/ul Normal 1.2-3.8 [facility] Comment on above: Performed By: #### C BC #### [facility] [address] [place] [address] Dr. Jose Elias Strong Lymphocytes/100 WBC (Bld) 15.5 % Critically low 20.5-60.0 [facility] Comment on above: Performed By: #### C BC #### [facility] [address] [place] [address] Dr. Jose Elias Strong MANUAL DIFF REQ NO Normal [facility] Comment on above: Performed By: #### C BC #### [facility] [address] [place] [address] Dr. Jose Elias Strong MCH (RBC) [Entitic mass] 26.8 pg Normal 26.7-34.0 [facility] Comment on above: Performed By: #### C BC #### [facility] [address] [place] [address] Dr. Jose Elias Strong MCHC (RBC) [Mass/Vol] 32.3 g/dL Normal 29.9-35.2 [facility] Comment on above: Performed By: #### C BC #### [facility] [address] [address] [address] Jose Elias Strong MCV (RBC) [Entitic vol] 82.8 fL Normal 81.0-99.0 [facility] Comment on above: Performed By: #### C BC #### [facility] [address] [address] [address] Jose Elias Strong MONO # 1.2 103/ul Critically high 0.3-0.8 [facility] Comment on above: Performed By: #### C BC #### [facility] [address] [place] [address] Dr. Jose Elias Strong Monocytes/100 WBC (Bld) 12.2 % Critically high 1.7-12.0 [facility] Comment on above: Performed By: #### C BC #### [facility] [address] [place] [address] Dr. Jose Elias Strong NEUT # 7.0 103/ul Critically high 1.4-6.5 [facility] Comment on above: Performed By: #### C BC #### [facility] [address] [place] [address] Dr. Jose Elias Strong Neutrophils/100 WBC (Bld) 68.6 % Normal 43.0-75.0 [facility] Comment on above: Performed By: #### C BC #### [facility] [address] [address] [address] Jose Elias Strong Platelet mean volume (Bld) [Entitic vol] 9.1 fL Critically low 9.5-13.5 [facility] Comment on above: Performed By: #### C BC #### [facility] [address] [place] [address] Dr. Jose Elias Strong PLT 309 103/ul Normal 150-450 [facility] Comment on above: Performed By: #### C BC #### [facility] [address] [place] [address] Dr. Jose Elias Strong RBC 3.55 106/ul Critically low 4.20-5.40 [facility] Comment on above: Performed By: #### C BC #### [facility] [address] [address] [address] Jose Elias Strong WBC 10.1 103/ul Normal 4.0-11.0 [facility] Comment on above: Performed By: #### C BC #### [facility] [address] [address] [address] Jose Elias Strong GLYCOHEMOGLOBIN A1Con 2021 ADA RECOMMENDATION ADA THERAPEUTIC TARGET 6.0 - 7.0 ACTION SUGGESTED > 7.0 Normal [facility] Comment on above: Performed By: #### T NS #### [facility] [address] [place] [address] Dr. Jose Elias Strong Glucose [Mass/Vol] 97 mg/dL Normal [facility] Comment on above: Performed By: #### T NS #### [facility] [address] [address] [address] Jose Elias Strong HbA1c (Bld) [Mass fraction] 5.0 % Normal <=6.0 [facility] Comment on above: Performed By: #### T NS #### [facility] [address] [place] [address] Dr. Jose Elias Strong Consenton 10-24-2020 Consent [id number] .00CD:127 Normal [facility] In office Testingon 10-25-19 21 In office Testing [id number]# 1.00CD:127 Normal [facility] Registrationon 10-24-2020 Registration [id number] .00CD:127 Normal [facility] Registration [id number] .00CD:127 Normal [facility] Encounters Encounter Date Encounter Type Care Provider Facility Start: 05-29-2023 End: 05-29-2023 ambulatory SHIVA CHAN Not Available Start: 04-23-2023 End: 04-23-2023 ambulatory MARY MARIE Not Available Start: 03-19-2023 End: 03-19-2023 ambulatory MARY MARIE Not Available Start: 12-10-2022 ambulatory ALEXANDER [facility] Start: 11-19-2022 End: 11-19-2022 ambulatory YOMAIRA [facility] Start: 10-28-2022 End: 10-29-2022 ambulatory ALEXANDER [facility] Start: 08-29-2022 ambulatory YOMAIRA GUILLEN [facility] Start: 08-19-2022 End: 08-19-2022 Emergency department patient visit YOMAIRA GUILLEN [facility] Start: 08-08-2022 End: 08-08-2022 Emergency department patient visit JERRY WALLS [facility] Start: 06-04-2022 End: 06-04-2022 ambulatory [...] MARIE Payers Date Payer Category Payer Medicaid [id number] 1995 Unknown [id number] 2.16.84 [id number] 1995 Unknown [id number] 2.16.84 0.1.747784.3.579.2.593 1995 Unknown [id number] 2.16.84 0.1.845450.3.579.2.593 1995 Unknown [id number] 2.16.84 0.1.918048.3.579.2.593 1995 Unknown [id number] 2.16.84 0.1.986702.3.579.2.593 1995 Unknown [id number] 2.16.84 0.1.307103.3.579.2.593 1995 Unknown [id number] 2.16.84 0.1.576158.3.579.2.593 1995 Unknown [id number] 2.16.84 0.1.465558.3.579.2.593 1995 Unknown [id number] 2.16.84 0.1.626007.3.579.2.1213 1995 Unknown [id number] 2.16.84 0.1.381070.3.579.2.1212 1995 Unknown [id number] 2.16.84 0.1.553773.3.579.2.1213 1995 Unknown [id number] 2.16.840 .1.838226.3.579.2.1212 1995 Unknown [id number] 2.16.840 .1.901499.3.579.2.1212 1995 Unknown [id number] 2.16.840 .1.482030.3.579.2.1212 1995 Unknown [id number] 2.16.84 0.1.715296.3.579.2.9 1995 Unknown [id number] 2.16.840 .1.232185.3.579.2.9 1995 Unknown [id number] 2.16.840. 1.616206.3.579.2.1259 1959 Unknown [id number] Summary Purpose Family History No Family History Records FoundNo Family History Records FoundNo Family History Records FoundNo Family History Records Found Advance Directives No Advanced Directives Records FoundNo Advanced Directives Records FoundNo Advanced Directives Records FoundNo Advanced Directives Records Found Additional Source Comments INFORMATION SOURCE (unrecogn ized section and content) DATE CREATED AUTHOR 10/25/2020 [facility] DATE CREATED AUTHOR AUTHOR'S ORGANIZ ATION 06/11/2022 [facility] DATE CREATED AUTHOR AUTHOR'S ORGANIZ ATION 12/16/2022 [facility] DATE CREATED AUTHOR AUTHOR'S ORGANIZ ATION 05/31/2023 [facility] FOR RECORDS PERTAINING TO PATIENTS WHO ARE [...] BE BASED ON THE PRIMARY CLINICAL RECORDS. [employer] provides no warranty or guarantee of the accuracy or completeness of information in this document.
--- NOTE | 2023-06-03 11:03 | US_ITS ---
[address] [address] Patient Name: KRISSY LOPEZ MRN: [id number] date: 1995 Sex: F Assigned Patient Location: [facility] Current Patient Location: [facility] Accession/Order Number: [id number] Exam Date: 06/03/2023 11:08 Report Date: 06/03/2023 11:51 At the request of: SHIVA CHAN Procedure: US OB BPP w non-stress EXAMINATION: US OB BPP w non-stress HISTORY: Excessive growth COMPARISON: No relevant comparison available. TECHNIQUE: Ultrasound biophysical profile was performed in the radiology department. non-reactive stress testing was performed by nursing staff in the birthing center. FINDINGS: BREATHING MOVEMENTS: 2.0 GROSS BODY MOVEMENTS: 2.0 TONE: 2.0 QUALITATIVE AMNIOTIC FLUID VOLUME: 2.0 PRESENTATION: CEPHALIC HEART RATE: 159.8 bpm H.B./min AMNIOTIC FLUID VOLUME: 24.2 cm cm GESTATIONAL AGE: 31 weeks 1 days CONCLUSION: Total biophysical profile score: 8.0 Electronically authenticated by: HAMMAD FRAZIER Date: 06/03/2023 11:51
[2023-06-03 11:35] VITALS: BP 107/64; PULSE 97
--- OUTSIDE RECORDS SUMMARY | 2023-06-06 08:02 | XMS_ITS | CCD ---
Author Name Unknown Address [facility] [address] [place] [address] Organization [facility] Care Team Providers Care Fleet Sales Associate Name Role Phone FRANK, DR HERNANDEZ Admitting [...] Translations: [LATEX] Drug allergy (disorder) 6 [facility] Repository (2 sources) Leucine; Translations: [NICKEL] Drug Allergy 7 [facility] (2 sources) Penicillins; Translations: [PENICILLINS] Drug allergy (disorder) 7 [facility] Repository (1 source) Shellfish Drug allergy (disorder) 7 [facility] Rep[facility] (1 source) Iodine; Translations: [IODINE] Drug Allergy 3 [facility] Repository (1 source) SHELLFISH CONTAINING PRODUCTS; Translations: [SHELLFISH CONTAINING PRODUCTS] Propensity to adverse reactions to drug (disorder) 3 [facility] Rep[facility] (1 source) VENOM-HONEY BEE; Translations: [VENOM-HONEY BEE] Propensity to adverse reactions to drug (disorder) 3 [facility] Problems Active Problems Problem Classification [...] HCG ( test) Ql (U) Negative Normal [facility] Comment on above: Order Comment: The c alculated GFR uses the (IDMS)-traceable creatinine MDRD equation and is reported in mL/min/1.73 square meters. This formula is not recommended for use with individuals with unstable creatinine concentrations, extremes in muscle mass and/or body size, or alternative diets and may not be suitable for all patient populations. Testing performed at [facility], [address] [place] [address] 00758 Result Comment: Note : This test provides only a presumptive diagnosis for . If the HCG result is inconsistent with clinical evidence, results should be confirmed with an alternative method, such as a quantitative HCG. Basic Metabolic Profileon ANIO 11 mmol/L Low 12-20 [facility] Comment on above: Order Comment: Testi ng performed at [facility], [address] [place] [address] 88231 Calcium [Mass/Vol] 9.5 mg/dL Normal 8.4-10.2 [facility] Comment on above: Order Comment: Testi ng performed at [facility], [address] [place] [address] 79854 Chloride [Moles/Vol] 107 mmol/L Normal 98-107 [facility] Comment on above: Order Comment: Testi ng performed at [facility], [address] [place] [address] 88059 CO2 [Moles/Vol] 23.0 mmol/L Normal 22.0-30.0 [facility] Comment on above: Order Comment: Testi ng performed at [facility], [address] [place] [address] 40235 Creatinine [Mass/Vol] 0.7 mg/dL Normal 0.6-1.2 [facility] Comment on above: Order Comment: Testi ng performed at [facility], [address] [place] [address] Glucose [Mass/Vol] 118 mg/dL High 74-106 [facility] Comment on above: Order Comment: Testi ng performed at [facility], [address] [place] [address] 43372 Potassium [Moles/Vol] 4.1 mmol/L Normal 3.3-4.9 [facility] Comment on above: Order Comment: Testi ng performed at [facility], [address] [place] [address] 37146 Sodium [Moles/Vol] 137 mmol/L Normal 137-145 [facility] Comment on above: Order Comment: Testi ng performed at [facility], [address] [place] [address] 51612 Urea nitrogen [Mass/Vol] 14 mg/dL Normal 8-19 [facility] Comment on above: Order Comment: Testi ng performed at [facility], [address] [place] [address] 38291 CBC w/Auto Diffon 08-19-2022 Basophils (Bld) [#/Vol] 0.04 10*3/uL Normal 0.00-0.10 [facility] Comment on above: Order [...] is no longer indicated. Testing performed at [facility], [address] [place] [address] 34514 Eosinophils (Bld) [#/Vol] 0.05 10*3/uL Normal 0.00-0.40 [facility] Comment on above: Order [...] is no longer indicated. Testing performed at [facility], [address] [place] [address] 46343 Erythrocyte distribution width (RBC) [Ratio] 13.3 % Normal 11.7-14.4 [facility] Comment on above: Order [...] is no longer indicated. Testing performed at [facility], [address] [place], [place] [id number] Hematocrit (Bld) [Volume fraction] 36.1 % Normal 34.1-44.9 [facility] Comment on above: Order [...] is no longer indicated. Testing performed at [facility], [address] [place] [address] 80312 Hemoglobin (Bld) [Mass/Vol] 12.0 g/dL Normal 11.2-15.7 [facility] Comment on above: Order [...] is no longer indicated. Testing performed at [facility], [address] [place] [address] 76882 IG % (B) 0.6 % High 0.0-0.4 [facility] Comment on above: Order [...] is no longer indicated. Testing performed at [facility], [address] [place] [address] 30001 IG# (B) 0.14 10*3/uL High 0.00-0.00 [facility] [...] is no longer indicated. Testing performed at [facility], [address] [place] [address] 17349 Lymphocytes (Bld) [#/Vol] 0.81 10*3/uL Low 1.20-3.70 [facility] Comment on above: Order [...] is no longer indicated. Testing performed at [facility], [address] [place] [address] 36796 MCH (RBC) [Entitic mass] 28.5 pg Normal 25.6-32.2 [facility] Comment on above: Order [...] is no longer indicated. Testing performed at [facility], [address] [place] [address] 21285 MCHC (RBC) [Mass/Vol] 33.2 g/dL Normal 32.2-35.5 [facility] Comment on above: Order [...] is no longer indicated. Testing performed at [facility], [address] [place] [address] 16877 MCV (RBC) [Entitic vol] 85.7 fL Normal 79.4-94.8 [facility] Comment on above: Order [...] is no longer indicated. Testing performed at [facility], [address] [place] [address] 52314 Monocytes (Bld) [#/Vol] 1.81 10*3/uL High 0.20-0.90 [facility] Comment on above: Order [...] is no longer indicated. Testing performed at [facility], [address] [place] [address] 77134 Neutrophils (Bld) [#/Vol] 20.04 10*3/uL High 1.60-6.10 [facility] Comment on above: Order [...] is no longer indicated. Testing performed at [facility], [address] [place] [address] 15455 NRBC % (B) 0.0 /100{WBC} Normal 0.0-0.2 [facility] Comment on above: Order [...] is no longer indicated. Testing performed at [facility], [address] [place] [address] 11106 NRBC# (B) 0.00 10*3/uL Normal 0.00-0.00 [facility] [...] is no longer indicated. Testing performed at [facility], [address] [place] [address] 96403 Platelet mean volume (Bld) [Entitic vol] 9.9 fL Normal 9.4-12.3 [facility] Comment on above: Order [...] is no longer indicated. Testing performed at [facility], [address] [place] [address] 69533 Platelets (Bld) [#/Vol] 267 10*3/uL Normal 182-369 [facility] Comment on above: Order [...] is no longer indicated. Testing performed at [facility], [address] [place] [address] 62962 RBC (Bld) [#/Vol] 4.21 10*6/uL Normal 3.93-5.22 [facility] Comment on above: Order Comment: Immature Gran [...] is no longer indicated. Testing performed at [facility], [address] [place] [address] 09545 RDW-SD (B) 41.1 fL Normal 36.4-46.3 [facility] Comment on above: Order [...] is no longer indicated. Testing performed at [facility], [address] [place] [address] 94139 WBC (Bld) [#/Vol] 22.9 10*3/uL High 4.0-10.0 [facility] Comment on above: Order Comment: Immature Gran [...] is no longer indicated. Testing performed at [facility], [address] [place] [address] NECK WITHOUT CONTRASTon 0 08-19-2022 CT [...] Salinas MD On: 08/19/2022 1:25 PM Normal [facility] EST Glomerular Filtration Ra jude 08-19-2022 EAGFR (B) >60 Normal >60 [facility] Comment on above: Order Comment: The c alculated GFR uses the (IDMS)-traceable creatinine MDRD equation and is reported in mL/min/1.73 square meters. This formula is not recommended for use with individuals with unstable creatinine concentrations, extremes in muscle mass and/or body size, or alternative diets and may not be suitable for all patient populations. Testing performed at [facility], [address] [place] [address] 02511 Result Comment: The reported eGFR is based on a non- patient, for Americans multiply the result by 1.212. HCG, Serumon 08-19-2022 HCGS Negative Normal [facility] Comment on above: Order Comment: Testi ng performed at [facility], [address] [place] [address] Result Comment: Note : This test provides only a presumptive diagnosis for . If the HCG result is inconsistent with clinical evidence, results should be confirmed with an alternative method, such as a quantitative HCG. Man Diffon 08-19-2022 Eos, Diff 2 % Normal 0-6 [facility] Comment on above: Order Comment: Testi ng performed at [facility], [facility] [place] [address] Lymphocytes/100 WBC (Bld) 3 % Low 20-53 [facility] Comment on above: Order Comment: Testi ng performed at [facility], [address] [place] [address] 56223 [place], Diff 6 % Normal 5-12 [facility] Comment on above: Order Comment: Testi ng performed at [facility], [address] [place] [address] 72394 Segs. Diff 89 % High 34-70 [facility] Comment on above: Order Comment: Testi ng performed at [facility], [address] [place] [address], [place] [address] Slide Scan Normal Normal Normal [facility] Comment on above: Order Comment: Testi ng performed at [facility], [facility] [place] [address] Basic Metabolic Profileon ANIO 12 mmol/L Normal 12-20 [facility] Comment on above: Order Comment: Testi ng performed at [facility], [facility] [place] [address] Calcium [Mass/Vol] 9.1 mg/dL Normal 8.4-10.2 [facility] Comment on above: Order Comment: Testi ng performed at [facility], [address] [place] [address] Chloride [Moles/Vol] 106 mmol/L Normal 98-107 [facility] Comment on above: Order Comment: Testi ng performed at [facility], [facility] [place] [address] CO2 [Moles/Vol] 27.0 mmol/L Normal 22.0-30.0 [facility] Comment on above: Order Comment: [facility], [address] [place] [address] 23830 Creatinine [Mass/Vol] 0.6 mg/dL Normal 0.6-1.2 [facility] Comment on above: Order Comment: Testi ng performed at [facility], [address] [place] [address] 22645 Glucose [Mass/Vol] 95 mg/dL Normal 74-106 [facility] Comment on above: Order Comment: Testi ng performed at [facility], [address] [place] [address] 04729 Potassium [Moles/Vol] 4.1 mmol/L Normal 3.3-4.9 [facility] Comment on above: Order Comment: Testi ng performed at [facility], [address] [place] [address] 08393 Sodium [Moles/Vol] 141 mmol/L Normal 137-145 [facility] Comment on above: Order Comment: Testi ng performed at [facility], [address] [place] [address] 65714 Urea nitrogen [Mass/Vol] 9 mg/dL Normal 8-19 [facility] Comment on above: Order Comment: Testi ng performed at [facility], [address] [place] [address] 58140 CBC w/Auto Diffon 08-08-2022 Basophils (Bld) [#/Vol] 0.04 10*3/uL Normal 0.00-0.10 [facility] Comment on above: Order [...] is no longer indicated. Testing performed at [facility], [address] [place] [address] 41518 Basophils/100 WBC (Bld) 0.4 % Normal 0.1-1.2 [facility] Comment on above: Order [...] is no longer indicated. Testing performed at [facility], [address] [place] [address] 85460 Eosinophils (Bld) [#/Vol] 0.21 10*3/uL Normal 0.00-0.40 [facility] Comment on above: Order [...] is no longer indicated. Testing performed at [facility], [address] [place] [address] 33594 Eosinophils/100 WBC (Bld) 2.1 % Normal 0.7-5.8 [facility] Comment on above: Order [...] is no longer indicated. Testing performed at [facility], [address] [place] [address] 53187 Erythrocyte distribution width (RBC) [Ratio] 12.9 % Normal 11.7-14.4 [facility] Comment on above: Order [...] is no longer indicated. Testing performed at [facility], [address] [place] [address] 08101 Hematocrit (Bld) [Volume fraction] 35.4 % Normal 34.1-44.9 [facility] Comment on above: Order [...] is no longer indicated. Testing performed at [facility], [address] [place] [address] Hemoglobin (Bld) [Mass/Vol] 11.2 g/dL Normal 11.2-15.7 [facility] Comment on above: Order [...] is no longer indicated. Testing performed at [facility], [address] [place], [place] [phone] IG % (B) 0.4 % Normal 0.0-0.4 [facility] Comment on above: Order [...] is no longer indicated. Testing performed at [facility], [address] [place], [place] [phone] IG# (B) 0.04 10*3/uL High 0.00-0.00 [facility] [...] is no longer indicated. Testing performed at [facility], [address] [place] [address] 40432 Lymphocytes (Bld) [#/Vol] 1.60 10*3/uL Normal 1.20-3.70 [facility] Comment on above: Order [...] is no longer indicated. Testing performed at [facility], [address] [place] [address] 62724 Lymphocytes/100 WBC (Bld) 16.3 % Low 19.3-51.7 [facility] Comment on above: Order [...] is no longer indicated. Testing performed at [facility], [address] [place] [address] 26333 MCH (RBC) [Entitic mass] 27.7 pg Normal 25.6-32.2 [facility] Comment on above: Order [...] is no longer indicated. Testing performed at [facility], [address] [place] [address] 82060 MCHC (RBC) [Mass/Vol] 31.6 g/dL Low 32.2-35.5 [facility] Comment on above: Order [...] is no longer indicated. Testing performed at [facility], [address] [place] [address] 31810 MCV (RBC) [Entitic vol] 87.4 fL Normal 79.4-94.8 [facility] Comment on above: Order [...] is no longer indicated. Testing performed at [facility], [address] [place] [address] 55857 Monocytes (Bld) [#/Vol] 0.88 10*3/uL Normal 0.20-0.90 [facility] Comment on above: Order [...] is no longer indicated. Testing performed at [facility], [address] [place] [address] 96326 Monocytes/100 WBC (Bld) 8.9 % Normal 4.7-12.5 [facility] Comment on above: Order [...] is no longer indicated. Testing performed at [facility], [address] [place] [address] 66756 Neutrophils (Bld) [#/Vol] 7.07 10*3/uL High 1.60-6.10 [facility] Comment on above: Order [...] is no longer indicated. Testing performed at [facility], [address] [place] [address] 21124 Neutrophils/100 WBC (Bld) 71.9 % High 34.0-71.1 [facility] Comment on above: Order [...] is no longer indicated. Testing performed at [facility], [address] [place] [address] 88719 NRBC % (B) 0.0 /100{WBC} Normal 0.0-0.2 [facility] Comment on above: Order [...] is no longer indicated. Testing performed at [facility], [address] [place] [address] 97230 NRBC# (B) 0.00 10*3/uL Normal 0.00-0.00 [facility] [...] is no longer indicated. Testing performed at [facility], [address] [place] [address] 82804 Platelet mean volume (Bld) [Entitic vol] 9.2 fL Low 9.4-12.3 [facility] Comment on above: Order [...] is no longer indicated. Testing performed at [facility], [address] [place] [address] 77452 Platelets (Bld) [#/Vol] 315 10*3/uL Normal 182-369 [facility] Comment on above: Order [...] is no longer indicated. Testing performed at [facility], [address] [place] [address] 50286 RBC (Bld) [#/Vol] 4.05 10*6/uL Normal 3.93-5.22 [facility] Comment on above: Order Comment: Immature Gran [...] is no longer indicated. Testing performed at [facility], [address] [place] [address] 24977 RDW-SD (B) 41.0 fL Normal 36.4-46.3 [facility] Comment on above: Order [...] is no longer indicated. Testing performed at [facility], [address] [place] [address] 52359 WBC (Bld) [#/Vol] 9.8 10*3/uL Normal 4.0-10.0 [facility] Comment on [...] is no longer indicated. Testing performed at [facility], [address] [place] [address] NECK WITHOUT CONTRASTon 0 08-08-2022 CT [...] Schultz MD On: 08/08/2022 4:07 PM Normal [facility] EST Glomerular Filtration Ra jude 08-08-2022 EAGFR (B) >60 Normal >60 [facility] Comment on above: Order Comment: The c alculated GFR uses the (IDMS)-traceable creatinine MDRD equation and is reported in mL/min/1.73 square meters. This formula is not recommended for use with individuals with unstable creatinine concentrations, extremes in muscle mass and/or body size, or alternative diets and may not be suitable for all patient populations. Testing performed at [facility], [address] [place] [address] Result Comment: The reported eGFR is based on a non- patient, for Americans multiply the result by 1.212. Pap IG, rfx Aptima HPV, rfx 16/18,45on 06-11-2022 . . Normal [facility] Comment on above: Result Comment: Perf ormed at: WB Performed By: #### P [id number] #### [facility] [address] [place] [address] Dr. Jose [facility] DIAGNOSIS: Comment Normal [facility] Comment on above: Result Comment: NEGA TIVE FOR INTRAEPITHELIAL LESION OR MALIGNANCY. Performed at: WB Performed By: #### P APHR2A #### [facility] [address] [address] [address] Jose [facility] HPV Aptima Negative Normal Negative [facility] Comment on above: Result Comment: This nucleic acid amplification test detects fourteen high-risk HPV types (16,18,31,33,35,39,45,51,52,56,58,59,66,68) without differentiation. Performed at: =G Performed By: #### P APHR2A #### [facility] [address] [address] [address] Jose [facility]as [facility] HPV Genotype Reflex Comment Normal [facility] Comment on above: Result Comment: Crit erbarbie not met, HPV Genotype not performed. Performed at: WB Performed By: #### P APHR2A #### [facility] [address] [address] [address] Jose Elias Strong Methodology: Comment Normal [facility] Comment on above: Result Comment: This liquid based ThinPrep(R) pap test was screened with the use of an image guided system. Performed at: WB Performed By: #### P APHR2A #### [facility] [address] [place] [address] Dr. Jose Elias Strong Note: Comment Normal [facility] Comment on above: Result Comment: The [...] WB Performed By: #### P APHR2A #### [facility] [address] [place] [address] Dr. Jose Elias Strong Performed by: Comment Normal [facility] Comment on above: Result Comment: Koffi Hutchinson, [employer] Member (ASCP) Performed at: WB Performed By: #### P APHR2A #### [facility] [address] [place] [address] Dr. Jose Elias Strong Specimen adequacy: Comment Normal [facility] Comment on above: Result Comment: Sati sfactory for evaluation. Endocervical and/or squamous metaplastic cells (endocervical component) are present. Performed at: WB Performed By: #### P APHR2A #### [facility] [address] [place] [address] Dr. Jose Elias Strong PAP ACOG PANEL 2: 21 to 29on 11-20-2021 . . Normal [facility] Comment on above: Performed By: #### [id number] #### [facility] [address] [place] [address] Dr. Jose Elias Strong Age Gdln ACOG Testing 21-[address] [facility] Comment on above: Performed By: #### [id number] #### [facility] [address] [place] [address] Dr. Jose Elias Strong DIAGNOSIS: Comment [facility] Comment on above: Result Comment: NEGA TIVE FOR INTRAEPITHELIAL LESION OR MALIGNANCY. REACTIVE CELLULAR CHANGES AND/OR REPAIR ARE PRESENT. Performed By: #### [id number] #### [facility] [address] [place] [address] Dr. Jose Elias Strong Electronically signed by: Comment Normal [facility] Comment on above: Result Comment: Melinda Patel MD, Pathologist Performed By: #### [id number] #### [facility] [address] [place] [address] Dr. Jose Elias Strong Methodology: Comment [facility] Comment on above: Result Comment: This liquid based ThinPrep(R) pap test was screened with the use of an image guided system. Performed By: #### [id number] #### [facility] [address] [place] [address] Dr. Jose Elias Strong Note: Comment [facility] Comment on above: Result Comment: The Pap smear is a screening test designed to aid in the detection of premalignant and malignant conditions of the uterine cervix. It is not a diagnostic procedure and should not be used as the sole means of detecting cervical cancer. Both false-positive and false-negative reports do occur. . Performed By: #### [id number] #### [facility] [address] [place] [address] Dr. Jose Elias Strong Performed by: Comment Normal [facility] Comment on above: Result Comment: Lilian Romero [employer] Member (ASCP) Performed By: #### [id number] #### [facility] [address] [place] [address] Dr. Jose Elias Strong Reflex Criteria: Comment [facility] Comment on above: Result Comment: The HPV DNA reflex criteria were not met with this specimen result therefore, no HPV testing was performed. . Performed By: #### [id number] #### [facility] [address] [place] [address] Dr. Jose Elias Strong Specimen adequacy: Comment Normal [facility] Comment on above: Result Comment: Sati sfactory for evaluation. Endocervical and/or squamous metaplastic cells (endocervical component) are present. Performed By: #### [id number] #### [facility] [address] [place] [address] Dr. Jose Elias Strong CBC W MANUAL DIFFon 08-21-19 22 ANISOCYTOSIS 1+ Normal [facility] Comment on above: Performed By: #### T NS #### [facility] [address] [place] [address] Dr. Jose Elias Strong ATYPICAL LYMPH # Normal [facility] Comment on above: Performed By: #### T NS #### [facility] [address] [place] [address] Dr. Jose Elias Strong ATYPICAL LYMPH % Normal [facility] Comment on above: Performed By: #### T NS #### [facility] [address] [place] [address] Dr. Jose Elias Strong BAND # 0.2 103/ul Normal 0.0-0.[address] [facility] Comment on above: Performed By: #### T NS #### [facility] [address] [place] [address] Dr. Jose Elias Strong BAND % 1 % Normal 0-[address] [facility] Comment on above: Performed By: #### T NS #### [facility] [address] [place] [address] Dr. Jose Elias Strong BASOM # 0.00 103/ul Normal 0.00-0.[address] [facility] Comment on above: Performed By: #### T NS #### [facility] [address] [place] [address] Dr. Jose Elias Strong BASOM % 0.0 % Critically low 0.2-2.0 [facility] Comment on above: Performed By: #### T NS #### [facility] [address] [place] [address] Dr. Jose Elias Strong BLAST # Normal [facility] Comment on above: Performed By: #### T NS #### [facility] [address] [place] [address] Dr. Jose Elias Strong BLAST % Normal [facility] Comment on above: Performed By: #### T NS #### [facility] [address] [place] [address] Dr. Jose Elias Strong CORRECTED WBC Normal 4.0-11.[address] [facility] Comment on above: Performed By: #### T NS #### [facility] [address] [place] [address] Dr. Jose Elias Strong EOS # 0.00 103/ul Normal 0.00-0.[address] [facility] Comment on above: Performed By: #### T NS #### [facility] [address] [place] [address] Dr. Jose Elias Strong EOS% 0.0 % Critically low 0.9-7.0 [facility] Comment on above: Performed By: #### T NS #### [facility] [address] [place] [address] Dr. Jose Elias Strong HCT 27.5 % Critically low 36.0-48.0 [facility] Comment on above: Performed By: #### T NS #### [facility] [address] [place] [address] Dr. Jose Elias Strong HGB 8.1 g/dl Critically low 12.0-16.0 [facility] Comment on above: Performed By: #### T NS #### [facility] [address] [place] [address] Dr. Jose Elias Strong LYMPHM # 1.62 103/ul Normal 1.20-3.[address] [facility] Comment on above: Performed By: #### T NS #### [facility] [address] [place] [address] Dr. Jose Elias Strong LYMPHM% 9.0 % Critically low 20.5-60.0 [facility] Comment on above: Performed By: #### T NS #### [facility] [address] [place] [address] Dr. Jose Elias Strong MCH 22.2 pg Critically low 26.7-34.0 [facility] Comment on above: Performed By: #### T NS #### [facility] [address] [address] [address] Jose Elias Strong MCHC 29.5 g/dl Critically low 29.9-35.2 [facility] Comment on above: Performed By: #### T NS #### [facility] [address] [address] [address] Jose Elias Strong MCV 75.3 fL Critically low 81.0-99.0 [facility] Comment on above: Performed By: #### T NS #### [facility] [address] [place] [address] Dr. Jose Elias Strong METAMYELOCYTE # Normal [facility] Comment on above: Performed By: #### T NS #### [facility] [address] [place] [address] Dr. Jose Elias Strong METAMYELOCYTE % Normal [facility] Comment on above: Performed By: #### T NS #### [facility] [address] [place] [address] Dr. Jose Elias Strong MONOM# 1.62 103/ul Critically high 0.30-0.80 [facility] Comment on above: Performed By: #### T NS #### [facility] [address] [place] [address] Dr. Jose Elias Strong MONOM% 9.0 % Normal 1.7-12.[address] [facility] Comment on above: Performed By: #### T NS #### [facility] [address] [place] [address] Dr. Jose Elias Strong MPV 9.6 fL Normal 9.5-13.[address] [facility] Comment on above: Performed By: #### T NS #### [facility] [address] [place] [address] Dr. Jose Elias Strong MYELOCYTE # Normal [facility] Comment on above: Performed By: #### T NS #### [facility] [address] [place] [address] Dr. Jose Elias Strong MYELOCYTE % Normal [facility] Comment on above: Performed By: #### T NS #### [facility] [address] [address] [address] Jose Elias Strong NRBC Normal [facility] Comment on above: Performed By: #### T NS #### [facility] [address] [address] [address] Jose Elias Strong PLT 308 103/ul Normal 150-[address] [facility] Comment on above: Performed By: #### T NS #### [facility] [address] [address] [address] Jose Elias Strong RBC 3.65 106/ul Critically low 4.20-5.40 [facility] Comment on above: Performed By: #### T NS #### [facility] [address] [address] [address] Jose Elias Strong RDW 15.7 % Critically high 11.0-15.0 [facility] Comment on above: Performed By: #### T NS #### [facility] [address] [address] [address] Jose Elias Strong SEG # 14.58 103/ul Critically high 1.40-6.50 [facility] Comment on above: Performed By: #### T NS #### [facility] [address] [address] [address] Jose Elias Strong SEG % 81.0 % Critically high 43.0-75.0 [facility] Comment on above: Performed By: #### T NS #### [facility] [address] [address] [address] Jose Elias Strong WBC 18.0 103/ul Critically high 4.0-11.0 [facility] Comment on above: Performed By: #### T NS #### [facility] [address] [address] [address] Jose Elias Strong DRUG SCREEN RAPID (URINE)on 08-20-2021 AMP Negative Normal NEGATIVE [facility] Comment on above: Performed By: #### T NS #### [facility] [address] [address] [address] Jose Elias Strong BAR Negative Normal NEGATIVE [facility] Comment on above: Performed By: #### T NS #### [facility] [address] [place] [address] Dr. Jose Elias Strong BUP Negative Normal NEGATIVE [facility] Comment on above: Performed By: #### T NS #### [facility] [address] [place] [address] Dr. Jose Elias Strong BZO Negative Normal NEGATIVE [facility] Comment on above: Performed By: #### T NS #### [facility] [address] [place] [address] Dr. Jose Elias Strong PAXTON Negative Normal NEGATIVE [facility] Comment on above: Performed By: #### T NS #### [facility] [address] [place] [address] Dr. Jose Elias Strong CUT-OFFS SEE BELOW Normal [facility] Comment on above: Result Comment: AMP [...] ng/mL Performed By: #### T NS #### [facility] [address] [place] [address] Dr. Jose Elias Strong DRUG CUT HEADER DRUG CLASS TEST SYSTEM CUT-OFF CONCENTRATIONS ARE FOLLOWS: Normal [facility] Comment on above: Performed By: #### T NS #### [facility] [address] [place] [address] Dr. Jose Elias Strong mAMP Negative Normal NEGATIVE [facility] Comment on above: Performed By: #### T NS #### [facility] [address] [place] [address] Dr. Jose Elias Strong MTD Negative Normal NEGATIVE [facility] Comment on above: Performed By: #### T NS #### [facility] [address] [place] [address] Dr. Jose Elias Strong OPI Negative Normal NEGATIVE [facility] Comment on above: Performed By: #### T NS #### [facility] [address] [place] [address] Dr. Jose Elias Strong OXY Negative Normal NEGATIVE [facility] Comment on above: Performed By: #### T NS #### [facility] [address] [place] [address] Dr. Jose Elias Strong PCP Negative Normal NEGATIVE [facility] Comment on above: Performed By: #### T NS #### [facility] [address] [place] [address] Dr. Jose Elias Strong PPX Negative Normal NEGATIVE [facility] Comment on above: Performed By: #### T NS #### [facility] [address] [place] [address] Dr. Jose Elias Strong TCA Negative Normal NEGATIVE [facility] Comment on above: Performed By: #### T NS #### [facility] [address] [place] [address] Dr. Jose Elias Strong THC Negative Normal NEGATIVE [facility] Comment on above: Performed By: #### T NS #### [facility] [address] [place] [address] Dr. Jose Elias Strong UA (CLEAN/CATCH) CUTTING AND SPLICING SUPERVISOR/MICRO I F IND.on 08-20-2021 Bilirubin Ql (U) Negative Normal NEGATIVE [facility] Comment on above: Performed By: #### U MICRO, UACSIND #### [facility] [address] [place] [address] Dr. Jose Elias Strong Clarity (U) SL CLOUDY Abnormal CLEAR [facility] Comment on above: Performed By: #### U MICRO, UACSIND #### [facility] [address] [place] [address] Dr. Jose Elias Strong Color (U) RED Abnormal YELLOW [facility] Comment on above: Performed By: #### U MICRO, UACSIND #### [facility] [address] [place] [address] Dr. Jose Elias Strong Glucose Ql (U) Negative Normal NEGATIVE [facility] Comment on above: Performed By: #### U MICRO, UACSIND #### [facility] [address] [address] [address] Jose Elias Strong Hemoglobin Ql (U) LARGE Abnormal NEGATIVE [facility] Comment on above: Performed By: #### U MICRO, UACSIND #### [facility] [address] [address] [address] Jose Elias Strong Ketones Ql (U) 15 mg/dl Abnormal NEGATIVE [facility] Comment on above: Performed By: #### U MICRO, UACSIND #### [facility] [address] [address] [address] Jose Elias Strong LEUKOCYTES TRACE Abnormal NEGATIVE [facility] Comment on above: Performed By: #### U MICRO, UACSIND #### [facility] [address] [place] [address] Dr. Jose Elias Strong Nitrite Ql (U) Negative Normal NEGATIVE [facility] Comment on above: Performed By: #### U MICRO, UACSIND #### [facility] [address] [place] [address] Dr. Jose Elias Strong pH (U) 7.0 [pH] Normal 5-[address] [facility] Comment on above: Performed By: #### U MICRO, UACSIND #### [facility] [address] [address] [address] Jose Elias Strong SPEC GRAVITY 1.020 Normal 1.005-<=1.025 [facility] Comment on above: Performed By: #### U MICRO, UACSIND #### [facility] [address] [address] [address] Jose Elias Strong UA PROTEIN 30 mg/dl Abnormal NEGATIVE/ TRACE [facility] Comment on above: Performed By: #### U MICRO, UACSIND #### [facility] [address] [place] [address] Dr. Jose Elias Strong UR MICRO IND INDICATED Normal [facility] Comment on above: Performed By: #### U MICRO, UACSIND #### [facility] [address] [address] [address] Jose Elias Strong Urobilinogen Qn (U) 0.2 {Mago'U}/dL Normal 0.2 - 1. 0 [facility] Comment on above: Performed By: #### U MICRO, UACSIND #### [facility] [address] [address] [address] Jose Elias Strong URINE MICROSCOPIC ONLYon BACTERIA NONE SEEN Normal NONE SEEN [facility] Comment on above: Performed By: #### U MICRO, UACSIND #### [facility] [address] [address] [address] Jose Elias Strong Bacteria identified Cx Nom (U) NOT INDICATED Normal [facility] Comment on above: Performed By: #### U MICRO, UACSIND #### [facility] [address] [address] [address] Jose Elias Strong CAST NONE SEEN Normal NONE SEEN [facility] Comment on above: Performed By: #### U MICRO, UACSIND #### [facility] [address] [address] [address] Jose Elias Strong Crystals LM Nom (Urine sed) NONE SEEN Normal NONE SEEN [facility] Comment on above: Performed By: #### U MICRO, UACSIND #### [facility] [address] [address] [address] Jose Elias Strong Epithelial cells LM Ql (Urine sed) NONE SEEN Normal NONE SEEN /RARE [facility] Comment on above: Performed By: #### U MICRO, UACSIND #### [facility] [address] [address] [address] Jose Elias Strong MUCOUS NONE SEEN Normal NONE SEEN [facility] Comment on above: Performed By: #### U MICRO, UACSIND #### [facility] [address] [address] [address] Jose Elias Strong RBC (U) [#/Vol] /uL Abnormal 0-2 [facility] Comment on above: Performed By: #### U MICRO, UACSIND #### [facility] [address] [address] [address] Jose Elias Strong WBC 0-2 Abnormal NONE SEEN [facility] Comment on above: Performed By: #### U MICRO, UACSIND #### [facility] [address] [place] [address] Dr. Jose Elias Strong CBC AUTO DIFFon 08-19-2021 BASO # 0.0 103/ul Normal 0.0-0.[address] [facility] Comment on above: Performed By: #### T NS #### [facility] [address] [place] [address] Dr. Jose Elias Strong Basophils/100 WBC (Bld) 0.2 % Normal 0.2-2.[address] [facility] Comment on above: Performed By: #### T NS #### [facility] [address] [place] [address] Dr. Jose Elias Strong EO # 0.1 103/ul Normal 0.0-0.[address] [facility] Comment on above: Performed By: #### T NS #### [facility] [address] [place] [address] Dr. Jose Elias Strong Eosinophils/100 WBC (Bld) 0.7 % Critically low 0.9-7.[address] [facility] Comment on above: Performed By: #### T NS #### [facility] [address] [place] [address] Dr. Jose Elias Strong Erythrocyte distribution width (RBC) [Ratio] 15.9 % Critically high 11.0-15.[address] [facility] Comment on above: Performed By: #### T NS #### [facility] [address] [place] [address] Dr. Jose Elias Strong Hematocrit (Bld) [Volume fraction] 32.4 % Critically low 36.0-48.[address] [facility] Comment on above: Performed By: #### T NS #### [facility] [address] [place] [address] Dr. Jose Elias Strong Hemoglobin (Bld) [Mass/Vol] 9.7 g/dL Critically low 12.0-16.[address] [facility] Comment on above: Performed By: #### T NS #### [facility] [address] [place] [address] Dr. Jose Elias Strong IG # 0.19 10e3/ul Critically high 0.00-0.03 [facility] Comment on above: Performed By: #### T NS #### [facility] [address] [address] [address] Jose Elias Strong IG % 1.4 % Critically high 0.0-0.5 [facility] Comment on above: Performed By: #### T NS #### [facility] [address] [address] [address] Jose Elias Strong LYMPH # 1.9 103/ul Normal 1.2-3.[address] [facility] Comment on above: Performed By: #### T NS #### [facility] [address] [place] [address] Dr. Jose Elias Strong Lymphocytes/100 WBC (Bld) 14.4 % Critically low 20.5-60.[address] [facility] Comment on above: Performed By: #### T NS #### [facility] [address] [place] [address] Dr. Jose Elias Strong MANUAL DIFF REQ NO Normal [facility] Comment on above: Performed By: #### T NS #### [facility] [address] [place] [address] Dr. Jose Elias Strong MCH (RBC) [Entitic mass] 22.3 pg Critically low 26.7-34.[address] [facility] Comment on above: Performed By: #### T NS #### [facility] [address] [place] [address] Dr. Jose Elias Strogn MCHC (RBC) [Mass/Vol] 29.9 g/dL Normal 29.9-35.[address] [facility] Comment on above: Performed By: #### T NS #### [facility] [address] [place] [address] Dr. Jose Elias Strong MCV (RBC) [Entitic vol] 74.5 fL Critically low 81.0-99.[address] [facility] Comment on above: Performed By: #### T NS #### [facility] [address] [place] [address] Dr. Jose Elias Strong MONO # 1.4 103/ul Critically high 0.3-0.8 [facility] Comment on above: Performed By: #### T NS #### [facility] [address] [place] [address] Dr. Jose Elias Strong Monocytes/100 WBC (Bld) 10.1 % Normal 1.7-12.[address] [facility] Comment on above: Performed By: #### T NS #### [facility] [address] [place] [address] Dr. Jose Elias Strong NEUT # 9.8 103/ul Critically high 1.4-6.5 [facility] Comment on above: Performed By: #### T NS #### [facility] [address] [place] [address] Dr. Jose Elias Strong Neutrophils/100 WBC (Bld) 73.2 % Normal 43.0-75.[address] [facility] Comment on above: Performed By: #### T NS #### [facility] [address] [place] [address] Dr. Jose Elias Strong Platelet mean volume (Bld) [Entitic vol] 10.0 fL Normal 9.5-13.[address] [facility] Comment on above: Performed By: #### T NS #### [facility] [address] [place] [address] Dr. Jose Elias Strong PLT 337 103/ul Normal 150-450 [facility] Comment on above: Performed By: #### T NS #### [facility] [address] [place] [address] Dr. Jose Elias Strong RBC 4.35 106/ul Normal 4.20-5.40 [facility] Comment on above: Performed By: #### T NS #### [facility] [address] [place] [address] Dr. Jose Elias Strong WBC 13.4 103/ul Critically high 4.0-11.0 [facility] Comment on above: Performed By: #### T NS #### [facility] [address] [place] [address] Dr. Jose Elias Strong Covid-19 PCR ([facility])on 08-03 SARS-CoV-2 (COVID-19) RNA [place]+probe Ql (Unsp spec) Not detected Normal NOT DETECTED [facility] Comment on above: Result Comment: When diagnostic [...] for this test is supported by the [place] of Health and Human Service's declaration that [...] used). Performed By: #### C VDTBH #### [facility] [address] [place] [address] Dr. Jose Elias Strong TYPE AND SCREENon 08-19-2021 TYPE AND SCREEN Negative Normal [facility] Comment on above: Performed By: #### T NS #### [facility] [address] [place] [address] Dr. Jose Elias Strong GROUP B STREP CULTUREon 07-05 S. agalactiae Ag Ql (Unsp spec) Culture Observations: NEGATIVE FOR GROUP B STREPTOCOCCUS. Normal [facility] Comment on above: Performed By: #### G BSCX #### [facility] [address] [place] [address] Dr. Jose Elias Strong UA (CLEAN/CATCH) CUTTING AND SPLICING SUPERVISOR/MICRO I F IND.on 06-28-2021 Bilirubin Ql (U) Negative Normal NEGATIVE [facility] Comment on above: Performed By: #### U ACSIND UMICRO #### [facility] [address] [place] [address] Dr. Jose Elias Strong Clarity (U) CLEAR Normal CLEAR [facility] Comment on above: Performed By: #### U ACSIND, UMICRO #### [facility] [address] [address] [address] Jose Elias Strong Color (U) LT. YELLOW Normal YELLOW [facility] Comment on above: Performed By: #### U ACSIND, UMICRO #### [facility] [address] [address] [address] Jose Elias Strong Glucose Ql (U) Negative Normal NEGATIVE [facility] Comment on above: Performed By: #### U ACSIND, UMICRO #### [facility] [address] [address] [address] Jose Elias Strong Hemoglobin Ql (U) Negative Normal NEGATIVE [facility] Comment on above: Performed By: #### U ACSIND, UMICRO #### [facility] [address] [place] [address] Dr. Jose Elias Strong Ketones Ql (U) Negative Normal NEGATIVE [facility] Comment on above: Performed By: #### U ACSIND, UMICRO #### [facility] [address] [address] [address] Jose Elias Strong LEUKOCYTES TRACE Abnormal NEGATIVE [facility] Comment on above: Performed By: #### U ACSIND, UMICRO #### [facility] [address] [address] [address] Jose Elias Strong Nitrite Ql (U) Negative Normal NEGATIVE [facility] Comment on above: Performed By: #### U ACSIND, UMICRO #### [facility] [address] [address] [address] Jose Elias Strong pH (U) 6.5 [pH] Normal 5-[address] [facility] Comment on above: Performed By: #### U ACSIND, UMICRO #### [facility] [address] [address] [address] Jose Elias Strong SPEC GRAVITY 1.015 Normal 1.005-<=1.025 [facility] Comment on above: Performed By: #### U ACSIND, UMICRO #### [facility] [address] [address] [address] Jose Elias Strong UA PROTEIN Negative Normal NEGATIVE/ TRACE [facility] Comment on above: Performed By: #### U ACSIND, UMICRO #### [facility] [address] [address] [address] Jose Elias Strong UR MICRO IND INDICATED Normal [facility] Comment on above: Performed By: #### U ACSIND, UMICRO #### [facility] [address] [address] [address] Jose Elias Strong Urobilinogen Qn (U) 0.2 {Mago'U}/dL Normal 0.2 - 1. [address] [facility] Comment on above: Performed By: #### U ACSIND, UMICRO #### [facility] [address] [address] [address] Jose Elias Strong URINE MICROSCOPIC ONLYon AMORPHOUS CRYSTALS FEW Normal [facility] Comment on above: Performed By: #### U ACSIND, UMICRO #### [facility] [address] [place] [address] Dr. Jose Elias Strong BACTERIA TRACE Abnormal NONE SEEN [facility] Comment on above: Performed By: #### U ACSIND, UMICRO #### [facility] [address] [place] [address] Dr. Jose Elias Strong Bacteria identified Cx Nom (U) NOT INDICATED Normal [facility] Comment on above: Performed By: #### U ACSIND, UMICRO #### [facility] [address] [place] [address] Dr. Jose Elias Strong CAST NONE SEEN Normal NONE SEEN [facility] Comment on above: Performed By: #### U ACSIND, UMICRO #### [facility] [address] [place] [address] Dr. Jose Elias Strong Crystals LM Nom (Urine sed) SEEN Abnormal NONE SEEN [facility] Comment on above: Performed By: #### U ACSIND, UMICRO #### [facility] [address] [place] [address] Dr. Jose Elias Strong Epithelial cells LM Ql (Urine sed) RARE Normal NONE SEEN /RARE [facility] Comment on above: Performed By: #### U ACSIND, UMICRO #### [facility] [address] [place] [address] Dr. Jose Elias Strong MUCOUS TRACE Abnormal NONE SEEN [facility] Comment on above: Performed By: #### U LAURENT LEDYRO #### [facility] [address] [place] [address] Dr. Jose Elias Strong RBC 0-2 Normal 0-[address] [facility] Comment on above: Performed By: #### U BRODIE MANCILLARO #### [facility] [address] [place] [address] Dr. Jose Elias Strong WBC 2-5 Abnormal NONE SEEN [facility] Comment on above: Performed By: #### [facility] #### [facility] [address] [place] [address] Dr. Jose Elias Strong CBC AUTO DIFFon 06-19-2021 BASO # 0.0 103/ul Normal 0.0-0.[address] [facility] Comment on above: Performed By: #### C BC #### [facility] [address] [place] [address] Dr. Jose Elias Strong Basophils/100 WBC (Bld) 0.3 % Normal 0.2-2.[address] [facility] Comment on above: Performed By: #### C BC #### [facility] [address] [place] [address] Dr. Jose Elias Strong EO # 0.2 103/ul Normal 0.0-0.[address] [facility] Comment on above: Performed By: #### C BC #### [facility] [address] [place] [address] Dr. Jose Elias Strong Eosinophils/100 WBC (Bld) 2.0 % Normal 0.9-7.[address] [facility] Comment on above: Performed By: #### C BC #### [facility] [address] [place] [address] Dr. Jose Elias Strong Erythrocyte distribution width (RBC) [Ratio] 13.6 % Normal 11.0-15.[address] [facility] Comment on above: Performed By: #### C BC #### [facility] [address] [place] [address] Dr. Jose Elias Strong Hematocrit (Bld) [Volume fraction] 29.4 % Critically low 36.0-48.[address] [facility] Comment on above: Performed By: #### C BC #### [facility] [address] [place] [address] Dr. Jose Elias Strong Hemoglobin (Bld) [Mass/Vol] 9.5 g/dL Critically low 12.0-16.0 [facility] Comment on above: Performed By: #### C BC #### [facility] [address] [place] [address] Dr. Jose Elias Strong IG # 0.14 10e3/ul Critically high 0.00-0.03 [facility] Comment on above: Performed By: #### C BC #### [facility] [address] [place] [address] Dr. Jose Elias Strong IG % 1.4 % Critically high 0.0-0.5 [facility] Comment on above: Performed By: #### C BC #### [facility] [address] [place] [address] Dr. Jose Elias Strong LYMPH # 1.6 103/ul Normal 1.2-3.[address] [facility] Comment on above: Performed By: #### C BC #### [facility] [address] [place] [address] Dr. Jose Elias Strong Lymphocytes/100 WBC (Bld) 15.5 % Critically low 20.5-60.0 [facility] Comment on above: Performed By: #### C BC #### [facility] [address] [place] [address] Dr. Jose Elias Strong MANUAL DIFF REQ NO Normal [facility] Comment on above: Performed By: #### C BC #### [facility] [address] [place] [address] Dr. Jose Elias Strong MCH (RBC) [Entitic mass] 26.8 pg Normal 26.7-34.[address] [facility] Comment on above: Performed By: #### C BC #### [facility] [address] [place] [address] Dr. Jose Elias Strong MCHC (RBC) [Mass/Vol] 32.3 g/dL Normal 29.9-35.[address] [facility] Comment on above: Performed By: #### C BC #### [facility] [address] [address] [address] Jose Elias Strong MCV (RBC) [Entitic vol] 82.8 fL Normal 81.0-99.[address] [facility] Comment on above: Performed By: #### C BC #### [facility] [address] [address] [address] Jose Elias Strong MONO # 1.2 103/ul Critically high 0.3-0.8 [facility] Comment on above: Performed By: #### C BC #### [facility] [address] [place] [address] Dr. Jose Elias Strong Monocytes/100 WBC (Bld) 12.2 % Critically high 1.7-12.[address] [facility] Comment on above: Performed By: #### C BC #### [facility] [address] [place] [address] Dr. Jose Elias Strong NEUT # 7.0 103/ul Critically high 1.4-6.5 [facility] Comment on above: Performed By: #### C BC #### [facility] [address] [place] [address] Dr. Jose Elias Strong Neutrophils/100 WBC (Bld) 68.6 % Normal 43.0-75.[address] [facility] Comment on above: Performed By: #### C BC #### [facility] [address] [address] [address] Jose Elias Strong Platelet mean volume (Bld) [Entitic vol] 9.1 fL Critically low 9.5-13.5 [facility] Comment on above: Performed By: #### C BC #### [facility] [address] [place] [address] Dr. Jose Elias Strong PLT 309 103/ul Normal 150-450 [facility] Comment on above: Performed By: #### C BC #### [facility] [address] [place] [address] Dr. Jose Elias Strong RBC 3.55 106/ul Critically low 4.20-5.40 [facility] Comment on above: Performed By: #### C BC #### [facility] [address] [address] [address] Jose Elias Strong WBC 10.1 103/ul Normal 4.0-11.[address] [facility] Comment on above: Performed By: #### C BC #### [facility] [address] [address] [address] Jose Elias Strong GLYCOHEMOGLOBIN A1Con 2021 ADA RECOMMENDATION ADA THERAPEUTIC TARGET 6.0 - 7.0 ACTION SUGGESTED > 7.[address] [facility] Comment on above: Performed By: #### T NS #### [facility] [address] [place] [address] Dr. Jose Elias Strong Glucose [Mass/Vol] 97 mg/dL Normal [facility] Comment on above: Performed By: #### T NS #### [facility] [address] [address] [address] Jose Elias Strong HbA1c (Bld) [Mass fraction] 5.0 % Normal <=6.[address] [facility] Comment on above: Performed By: #### T NS #### [facility] [address] [place] [address] Dr. Jose Elias Strong Consenton 10-24-2020 Consent [id number] .00CD:127 Normal [facility] In office Testingon 10-25-19 21 In office Testing [id number]# 1.00CD:127 Normal [facility] Registrationon 10-24-2020 Registration [id number] .00CD:127 Normal [facility] Registration [id number] .00CD:127 Normal [facility] Encounters Encounter Date Encounter Type Care Provider Facility Start: 05-29-2023 End: 05-29-2023 ambulatory SHIVA CHAN Not Available Start: 04-23-2023 End: 04-23-2023 ambulatory MARY MARIE Not Available Start: 03-19-2023 End: 03-19-2023 ambulatory MARY MARIE Not Available Start: 12-10-2022 ambulatory ALEXANDER Myers [facility] Start: 11-19-2022 End: 11-19-2022 ambulatory YOMAIRA [facility] Start: 10-28-2022 End: 10-29-2022 ambulatory ALEXANDER [facility] Start: 08-29-2022 ambulatory [facility]A [facility] Start: 08-19-2022 End: 08-19-2022 Emergency department patient visit YOMAIRA GUILLEN [facility] Start: 08-08-2022 End: 08-08-2022 Emergency department patient visit JERRY WALLS [facility] Start: 06-04-2022 End: 06-04-[address] [...] MARIE Payers Date Payer Category Payer Medicaid [id number] 1995 Unknown [id number] 2.16.84 0.1.686851.3.579.2.593 1995 Unknown [id number] 2.16.84 0.1.020248.3.579.2.593 1995 Unknown [id number] 2.16.84 0.1.128911.3.579.2.593 1995 Unknown [id number] 2.16.84 0.1.460192.3.579.2.593 1995 Unknown [id number] 2.16.84 0.1.631811.3.579.2.593 1995 Unknown [id number] 2.16.84 0.1.810436.3.579.2.593 1995 Unknown [id number] 2.16.84 0.1.340795.3.579.2.593 1995 Unknown [id number] 2.16.84 0.1.465513.3.579.2.593 1995 Unknown [id number] 2.16.84 0.1.175299.3.579.2.1213 1995 Unknown [id number] 2.16.84 0.1.868515.3.579.2.1212 1995 Unknown [id number] 2.16.84 0.1.943683.3.579.2.1213 1995 Unknown [id number] 2.16.840 .1.158715.3.579.2.1212 1995 Unknown [id number] 2.16.840 .1.620490.3.579.2.1212 1995 Unknown [id number] 2.16.840 .1.571542.3.579.2.1212 1995 Unknown [id number] 2.16.84 0.1.224539.3.579.2.9 1995 Unknown [id number] 2.16.840 .1.083075.3.579.2.9 1995 Unknown [id number] 2.16.840. 1.469517.3.579.2.1259 1959 Unknown [id number] Summary Purpose Family History No Family History Records FoundNo Family History Records FoundNo Family History Records FoundNo Family History Records Found Advance Directives No Advanced Directives Records FoundNo Advanced Directives Records FoundNo Advanced Directives Records FoundNo Advanced Directives Records Found Additional Source Comments INFORMATION SOURCE (unrecogn ized section and content) DATE CREATED AUTHOR 10/25/2020 [facility] DATE CREATED AUTHOR AUTHOR'S ORGANIZ ATION 06/11/2022 [facility] DATE CREATED AUTHOR AUTHOR'S ORGANIZ ATION 12/16/2022 [facility] DATE CREATED AUTHOR AUTHOR'S ORGANIZ ATION 05/31/2023 [facility] FOR RECORDS PERTAINING TO PATIENTS WHO ARE [...] BE BASED ON THE PRIMARY CLINICAL RECORDS. [employer] provides no warranty or guarantee of the accuracy or completeness of information in this document.
== END 2023-06-03 12:15 | disposition home or self-care (01) ==
LOC: US 07:23 → FBC 11:02
PROVIDERS: PCP Family Medicine; Visit Provider Physician Assistant
DX: O36.63X1 Maternal care for excessive fetal growth, third trimester, fetus 1 (principal); Z3A.31 31 weeks gestation of pregnancy
CPT/HCPCS: 76818

== ENCOUNTER 2023-06-10 07:14 | Outpatient (OUT) | payer OTHER, SELFPAY ==
--- OUTSIDE RECORDS SUMMARY | 2023-06-10 07:17 | XMS_ITS | CCD ---
Author Name Unknown Address [facility] [address] [place] [address] Organization [facility] Care Team Providers Care Accounting Policy Consultant Name Role Phone FRANK, DR HERNANDEZ Admitting Unavailable FRANK, DR HERNANDEZ Attending Unavailable KARMA, DR LIZABETH Kauffman Primary [facility] Unavail able FRANK, DR HENRANDEZ Admitting Unavailable FRANK, DR HERNANDEZ Attending Unavailable [...] Translations: [LATEX] Drug allergy (disorder) 6 [facility] (2 sources) Leucine; Translations: [NICKEL] Drug Allergy 7 [facility] (2 sources) Penicillins; Translations: [PENICILLINS] Drug allergy (disorder) 7 [facility] (1 source) Shellfish Drug allergy (disorder) 7 [facility] (1 source) Iodine; Translations: [IODINE] [...] for all patient populations. Testing performed at [facility] [employer], [address] [place] [address] 16763 Result Comment: Note : This test provides only a presumptive diagnosis for . If the HCG result is inconsistent with clinical evidence, results should be confirmed with an alternative method, such as a quantitative HCG. Basic Metabolic Profileon ANIO 11 mmol/L Low 12-20 [facility] Comment on above: Order Comment: Testi ng performed at [facility], [address] [place] [address] 88058 Calcium [Mass/Vol] 9.5 mg/dL Normal 8.4-10.2 [facility] Comment on above: Order Comment: Testi ng performed at [facility], [address] [place] [address] 43777 Chloride [Moles/Vol] 107 mmol/L Normal 98-107 [facility] Comment on above: Order Comment: Testi ng performed at [facility], [address] [place] [address] 63595 CO2 [Moles/Vol] 23.0 mmol/L Normal 22.0-30.0 [facility] Comment on above: Order Comment: Testi ng performed at [facility], [address] [place] [address] 74343 Creatinine [Mass/Vol] 0.7 mg/dL Normal 0.6-1.2 [facility] Comment on above: Order Comment: Testi ng performed at [facility], [address] [place] [address] Glucose [Mass/Vol] 118 mg/dL High 74-106 [facility] Comment on above: Order Comment: Testi ng performed at [facility], [address] [place] [address] 75290 Potassium [Moles/Vol] 4.1 mmol/L Normal 3.3-4.9 [facility] Comment on above: Order Comment: Testi ng performed at [facility], [address] [place] [address] 26296 Sodium [Moles/Vol] 137 mmol/L Normal 137-145 [facility] Comment on above: Order Comment: Testi ng performed at [facility], [address] [place] [address] 09799 Urea nitrogen [Mass/Vol] 14 mg/dL Normal 8-19 [facility] Comment on above: Order Comment: Testi ng performed at [facility], [address] [place] [address] 69009 CBC w/Auto Diffon 08-19-2022 Basophils (Bld) [#/Vol] [...] is no longer indicated. Testing performed at [facility], [address] [place] [address] 47344 Eosinophils (Bld) [#/Vol] 0.05 10*3/uL Normal 0.00-0.40 [...] is no longer indicated. Testing performed at [facility], [address] [place] [address] 07338 Erythrocyte distribution width (RBC) [Ratio] 13.3 % [...] is no longer indicated. Testing performed at [facility], [address] [place], [place] [id number] Hematocrit (Bld) [Volume fraction] 36.1 % Normal [...] is no longer indicated. Testing performed at [facility], [address] [place] [address] 17596 Hemoglobin (Bld) [Mass/Vol] 12.0 g/dL Normal 11.2-15.7 [...] is no longer indicated. Testing performed at [facility], [address] [place] [address] 83123 IG % (B) 0.6 % High 0.0-0.4 [...] is no longer indicated. Testing performed at [facility], [address] [place] [address] 91487 IG# (B) 0.14 10*3/uL High 0.00-0.00 [facility] [...] is no longer indicated. Testing performed at [facility], [address] [place] [address] 40066 Lymphocytes (Bld) [#/Vol] 0.81 10*3/uL Low 1.20-3.70 [...] is no longer indicated. Testing performed at [facility], [address] [place] [address] 36382 MCH (RBC) [Entitic mass] 28.5 pg Normal [...] is no longer indicated. Testing performed at [facility] [facility], [address] [place] [address] 77674 MCHC (RBC) [Mass/Vol] 33.2 g/dL Normal 32.2-35.5 [...] is no longer indicated. Testing performed at [facility], [address] [place] [address] 25240 MCV (RBC) [Entitic vol] 85.7 fL Normal [...] is no longer indicated. Testing performed at [facility], [address] [place] [address] 54469 Monocytes (Bld) [#/Vol] 1.81 10*3/uL High 0.20-0.90 [...] is no longer indicated. Testing performed at [facility], [address] [place] [address] 28024 Neutrophils (Bld) [#/Vol] 20.04 10*3/uL High 1.60-6.10 [...] is no longer indicated. Testing performed at [facility], [address] [place] [address] 69612 NRBC % (B) 0.0 /100{WBC} Normal 0.0-0.2 [...] is no longer indicated. Testing performed at [facility], [address] [place] [address] 54254 NRBC# (B) 0.00 10*3/uL Normal 0.00-0.00 [facility] [...] is no longer indicated. Testing performed at [facility], [address] [place] [address] 10010 Platelet mean volume (Bld) [Entitic vol] 9.9 [...] is no longer indicated. Testing performed at [facility], [address] [place] [address] 80768 Platelets (Bld) [#/Vol] 267 10*3/uL Normal 182-369 [...] is no longer indicated. Testing performed at [facility], [address] [place] [address] 29652 RBC (Bld) [#/Vol] 4.21 10*6/uL Normal 3.93-5.22 [facility] Comment on above: Order Comment: [...] is no longer indicated. Testing performed at [facility], [address] [place] [address] 04187 RDW-SD (B) 41.1 fL Normal 36.4-46.3 [facility] [...] is no longer indicated. Testing performed at [facility], [address] [place] [address] 14114 WBC (Bld) [#/Vol] 22.9 10*3/uL High 4.0-10.0 [facility] Comment on above: Order Comment: [...] is no longer indicated. Testing performed at [facility], [address] [place] [address] NECK WITHOUT CONTRASTon 0 08-19-2022 CT [...] for all patient populations. Testing performed at [facility], [address] [place] [address] 50885 Result Comment: The reported eGFR is based on a non- patient, for Americans multiply the result by 1.212. HCG, Serumon 08-19-2022 HCGS Negative Normal [facility] Comment on above: Order Comment: Testi ng performed at [facility], [address] [place] [address] Result Comment: Note : This test provides only a presumptive diagnosis for . If the HCG result is inconsistent with clinical evidence, results should be confirmed with an alternative method, such as a quantitative HCG. Man Diffon 08-19-2022 Eos, Diff 2 % Normal 0-6 [facility] Comment on above: Order Comment: Testi ng performed at [facility], [facility] [place] [address] Lymphocytes/100 WBC (Bld) 3 % Low 20-53 [facility] Comment on above: Order Comment: Testi ng performed at [facility], [address] [place] [address] 89199 [place], Diff 6 % Normal 5-12 [facility] Comment on above: Order Comment: Testi ng performed at [facility], [address] [place] [address] 37927 Segs. Diff 89 % High 34-70 [facility] Comment on above: Order Comment: Testi ng performed at [facility], [address] [place] [address], [place] [address] Slide Scan Normal Normal Normal [facility] Comment on above: Order Comment: Testi ng performed at [facility], [facility] [place] [address] Basic Metabolic Profileon ANIO 12 mmol/L Normal 12-20 [facility] Comment on above: Order Comment: Testi ng performed at [facility], [facility] [place] [address] Calcium [Mass/Vol] 9.1 mg/dL Normal 8.4-10.2 [facility] Comment on above: Order Comment: Testi ng performed at [facility], [address] [place] [address] Chloride [Moles/Vol] 106 mmol/L Normal 98-107 [facility] Comment on above: Order Comment: Testi ng performed at [facility], [facility] [place] [address] CO2 [Moles/Vol] 27.0 mmol/L Normal 22.0-30.0 [facility] Comment on above: Order Comment: Testi ng performed at [facility], [address] [place] [address] 17922 Creatinine [Mass/Vol] 0.6 mg/dL Normal 0.6-1.2 [facility] Comment on above: Order Comment: Testi ng performed at [facility], [address] [place] [address] 21691 Glucose [Mass/Vol] 95 mg/dL Normal 74-106 [facility] Comment on above: Order Comment: Testi ng performed at [facility], [address] [place] [address] 74598 Potassium [Moles/Vol] 4.1 mmol/L Normal 3.3-4.9 [facility] Comment on above: Order Comment: Testi ng performed at [facility], [address] [place] [address] 67662 Sodium [Moles/Vol] 141 mmol/L Normal 137-145 [facility] Comment on above: Order Comment: Testi ng performed at [facility], [address] [place] [address] 06032 Urea nitrogen [Mass/Vol] 9 mg/dL Normal 8-19 [facility] Comment on above: Order Comment: Testi ng performed at [facility], [address] [place] [address] 20809 CBC w/Auto Diffon 08-08-2022 Basophils (Bld) [#/Vol] [...] is no longer indicated. Testing performed at [facility], [address] [place] [address] 74188 Basophils/100 WBC (Bld) 0.4 % Normal 0.1-1.2 [...] is no longer indicated. Testing performed at [facility], [address] [place] [address] 77141 Eosinophils (Bld) [#/Vol] 0.21 10*3/uL Normal 0.00-0.40 [...] is no longer indicated. Testing performed at [facility], [address] [place] [address] 08934 Eosinophils/100 WBC (Bld) 2.1 % Normal 0.7-5.8 [...] is no longer indicated. Testing performed at [facility], [address] [place] [address] 74291 Erythrocyte distribution width (RBC) [Ratio] 12.9 % [...] is no longer indicated. Testing performed at [facility], [address] [place] [address] 89364 Hematocrit (Bld) [Volume fraction] 35.4 % Normal [...] is no longer indicated. Testing performed at [facility], [address] [place] [address] Hemoglobin (Bld) [Mass/Vol] 11.2 g/dL Normal 11.2-15.7 [...] is no longer indicated. Testing performed at [facility], [address] [place], [place] [phone] IG % (B) 0.4 % Normal 0.0-0.4 [...] is no longer indicated. Testing performed at [facility], [address] [place], [place] [phone] IG# (B) 0.04 10*3/uL High 0.00-0.00 [facility] [...] is no longer indicated. Testing performed at [facility], [address] [place] [address] 74405 Lymphocytes (Bld) [#/Vol] 1.60 10*3/uL Normal 1.20-3.70 [...] is no longer indicated. Testing performed at [facility], [address] [place] [address] 51034 Lymphocytes/100 WBC (Bld) 16.3 % Low 19.3-51.7 [...] is no longer indicated. Testing performed at [facility], [address] [place] [address] 76725 MCH (RBC) [Entitic mass] 27.7 pg Normal [...] is no longer indicated. Testing performed at [facility], [address] [place] [address] 69324 MCHC (RBC) [Mass/Vol] 31.6 g/dL Low 32.2-35.5 [...] is no longer indicated. Testing performed at [facility], [address] [place] [address] 16590 MCV (RBC) [Entitic vol] 87.4 fL Normal [...] is no longer indicated. Testing performed at [facility], [address] [place] [address] 99619 Monocytes (Bld) [#/Vol] 0.88 10*3/uL Normal 0.20-0.90 [...] is no longer indicated. Testing performed at [facility], [address] [place] [address] 57091 Monocytes/100 WBC (Bld) 8.9 % Normal 4.7-12.5 [...] is no longer indicated. Testing performed at [facility], [address] [place] [address] 80210 Neutrophils (Bld) [#/Vol] 7.07 10*3/uL High 1.60-6.10 [...] is no longer indicated. Testing performed at [facility], [address] [place] [address] 16014 Neutrophils/100 WBC (Bld) 71.9 % High 34.0-71.1 [...] is no longer indicated. Testing performed at [facility], [address] [place] [address] 14784 NRBC % (B) 0.0 /100{WBC} Normal 0.0-0.2 [...] is no longer indicated. Testing performed at [facility], [address] [place] [address] 87203 NRBC# (B) 0.00 10*3/uL Normal 0.00-0.00 [facility] [...] is no longer indicated. Testing performed at [facility], [address] [place] [address] 04283 Platelet mean volume (Bld) [Entitic vol] 9.2 [...] is no longer indicated. Testing performed at [facility], [address] [place] [address] 59888 Platelets (Bld) [#/Vol] 315 10*3/uL Normal 182-369 [...] is no longer indicated. Testing performed at [facility], [address] [place] [address] 97000 RBC (Bld) [#/Vol] 4.05 10*6/uL Normal 3.93-5.22 [facility] Comment on above: Order Comment: [...] is no longer indicated. Testing performed at [facility], [address] [place] [address] 20681 RDW-SD (B) 41.0 fL Normal 36.4-46.3 [facility] [...] is no longer indicated. Testing performed at [facility], [address] [place] [address] 67909 WBC (Bld) [#/Vol] 9.8 10*3/uL Normal 4.0-10.0 [facility] Comment on above: Order Comment: Immature [...] is no longer indicated. Testing performed at [facility], [address] [place] [address] NECK WITHOUT CONTRASTon 0 08-08-2022 CT [...] for all patient populations. Testing performed at [facility], [address] [place] [address] Result Comment: The reported eGFR is based on a non- patient, for Americans multiply the result by 1.212. Pap IG, rfx Aptima HPV, rfx 16/18,45on 06-11-2022 . . Normal [facility] Comment on above: Result Comment: Perf ormed at: WB Performed By: #### P [id number] #### [facility] [address] [place] [address] Dr. Jose [facility]as Strong DIAGNOSIS: Comment Normal [facility] Comment on above: Result Comment: NEGA TIVE FOR INTRAEPITHELIAL LESION OR MALIGNANCY. Performed at: WB Performed By: #### P APHR2A #### [facility] [address] [address] [address] Jose Elias Strong HPV Aptima Negative Normal Negative [facility] Comment on above: Result Comment: This nucleic acid amplification test detects fourteen high-risk HPV types (16,18,31,33,35,39,45,51,52,56,58,59,66,68) without differentiation. Performed at: =G Performed By: #### P APHR2A #### [facility] [address] [address] [address] Jose [facility]as [facility] HPV Genotype Reflex Comment Normal [facility] Comment on above: Result Comment: Crit erbarbie not met, HPV Genotype not performed. Performed at: WB Performed By: #### P APHR2A #### [facility] [address] [address] [address] Jose Elias Strong Methodology: Comment Normal [facility] Comment on above: Result Comment: This liquid based ThinPrep(R) pap test was screened with the use of an image guided system. Performed at: WB Performed By: #### P APHR2A #### [facility] [address] [place] [address] Dr. Jose Elias Strong Note: Comment Normal [facility] Comment on above: Result Comment: The Pap smear is a screening test designed to aid in the detection of premalignant and malignant conditions of the uterine cervix. It is not a diagnostic procedure and should not be used as the sole means of detecting cervical cancer. Both false-positive and false-negative reports do occur. . Performed at: WB Performed By: #### P APHR2A #### [facility] [address] [place] [address] Dr. Jose Elias Strong Performed by: Comment Normal [facility] Comment on above: Result Comment: Koffi Huthcinson, Oceanology Teacher (ASCP) Performed at: WB Performed By: #### P APHR2A #### [facility] [address] [place] [address] Dr. Jose Elias Strong Specimen adequacy: Comment Normal [facility] Comment on above: Result Comment: Sati sfactory for evaluation. Endocervical and/or squamous metaplastic cells (endocervical component) are present. Performed at: WB Performed By: #### P APHR2A #### [facility] [address] [place] [address] Dr. Jose Elias Strong PAP ACOG PANEL 2: 21 to 29on 11-20-2021 . . Normal [facility] Comment on above: Performed By: #### [id number] #### [facility] [address] [place] [address] Dr. Jose Elias Strong Age Gdln ACOG Testing 21-29 Normal [facility] Comment on above: Performed By: #### [id number] #### [facility] [address] [place] [address] Dr. Jose Elias Strong DIAGNOSIS: Comment [facility] Comment on above: Result Comment: NEGA TIVE FOR INTRAEPITHELIAL LESION OR MALIGNANCY. REACTIVE CELLULAR CHANGES AND/OR REPAIR ARE PRESENT. Performed By: #### [id number] #### [facility] [address] [place] [address] Dr. Jose Elias Strong Electronically signed by: Comment Normal [facility] Comment on above: Result Comment: Melinda Patel MD, Pathologist Performed By: #### [id number] #### [facility] [address] [place] [address] Dr. Jose Elias Strong Methodology: Comment [facility] Comment on above: Result Comment: This liquid based ThinPrep(R) pap test was screened with the use of an image guided system. Performed By: #### [id number] #### [facility] [address] [place] [address] Dr. Jose Elias Strong Note: Comment [facility] Comment on above: Result Comment: The Pap smear is a screening test designed to aid in the detection of premalignant and malignant conditions of the uterine cervix. It is not a diagnostic procedure and should not be used as the sole means of detecting cervical cancer. Both false-positive and false-negative reports do occur. . Performed By: #### [id number] #### [facility] [address] [place] [address] Dr. Jose Elias Strong Performed by: Comment Normal [facility] Comment on above: Result Comment: Lilian Romero Oceanology Teacher (ASCP) Performed By: #### [id number] #### [facility] [address] [place] [address] Dr. Jose Elias Strong Reflex Criteria: Comment [facility] Comment on above: Result Comment: The HPV DNA reflex criteria were not met with this specimen result therefore, no HPV testing was performed. . Performed By: #### [id number] #### [facility] [address] [place] [address] Dr. Jose Elias Strong Specimen adequacy: Comment Normal [facility] Comment on above: Result Comment: Sati sfactory for evaluation. Endocervical and/or squamous metaplastic cells (endocervical component) are present. Performed By: #### [id number] #### [facility] [address] [place] [address] Dr. Jose Elias Strong CBC W MANUAL DIFFon 08-21-19 22 ANISOCYTOSIS 1+ Normal [facility] Comment on above: Performed By: #### T NS #### [facility] [address] [place] [address] Dr. Jose Elias Strong ATYPICAL LYMPH # Normal [facility] Comment on above: Performed By: #### T NS #### [facility] [address] [place] [address] Dr. Jose Elias Strong ATYPICAL LYMPH % Normal [facility] Comment on above: Performed By: #### T NS #### [facility] [address] [place] [address] Dr. Jose Elias Strong BAND # 0.2 103/ul Normal 0.0-0.3 [facility] Comment on above: Performed By: #### T NS #### [facility] [address] [place] [address] Dr. Jose Elias [facility] BAND % 1 % Normal 0-5 [facility] Comment on above: Performed By: #### T NS #### [facility] [address] [place] [address] Dr. Jose Elias Strong BASOM # 0.00 103/ul Normal 0.00-0.10 [facility] Comment on above: Performed By: #### T NS #### [facility] [address] [place] [address] Dr. Jose Elias Strong BASOM % 0.0 % Critically low 0.2-2.0 [facility] Comment on above: Performed By: #### T NS #### [facility] [address] [place] [address] Dr. Jose Elias Strong BLAST # Normal [facility] Comment on above: Performed By: #### T NS #### [facility] [address] [place] [address] Dr. Jose Elias Strong BLAST % Normal [facility] Comment on above: Performed By: #### T NS #### [facility] [address] [place] [address] Dr. Jose Elias Strong CORRECTED WBC Normal 4.0-11.0 [facility] Comment on above: Performed By: #### T NS #### [facility] [address] [place] [address] Dr. Jose Elias Strong EOS # 0.00 103/ul Normal 0.00-0.70 [facility] Comment on above: Performed By: #### T NS #### [facility] [address] [place] [address] Dr. Jose Elias Strong EOS% 0.0 % Critically low 0.9-7.0 [facility] Comment on above: Performed By: #### T NS #### [facility] [address] [place] [address] Dr. Jose Elias Strong HCT 27.5 % Critically low 36.0-48.0 [facility] Comment on above: Performed By: #### T NS #### [facility] [address] [place] [address] Dr. Jose Elias Strong HGB 8.1 g/dl Critically low 12.0-16.0 [facility] Comment on above: Performed By: #### T NS #### [facility] [address] [place] [address] Dr. Jose Elias Strong LYMPHM # 1.62 103/ul Normal 1.20-3.80 [facility] [facility] Comment on above: Performed By: #### T NS #### [facility] [address] [place] [address] Dr. Jose Elias Strong LYMPHM% 9.0 % Critically low 20.5-60.0 [facility] Comment on above: Performed By: #### T NS #### [facility] [address] [place] [address] Dr. Jose Elias Strong MCH 22.2 pg Critically low 26.7-34.0 [facility] Comment on above: Performed By: #### T NS #### [facility] [address] [address] [address] Jose Elias Strong MCHC 29.5 g/dl Critically low 29.9-35.2 [facility] Comment on above: Performed By: #### T NS #### [facility] [address] [address] [address] Jose Elias Strong MCV 75.3 fL Critically low 81.0-99.0 [facility] Comment on above: Performed By: #### T NS #### [facility] [address] [place] [address] Dr. Jose Elias Strong METAMYELOCYTE # Normal [facility] Comment on above: Performed By: #### T NS #### [facility] [address] [place] [address] Dr. Jose Elias Strong METAMYELOCYTE % Normal [facility] Comment on above: Performed By: #### T NS #### [facility] [address] [place] [address] Dr. Jose Elias Strong MONOM# 1.62 103/ul Critically high 0.30-0.80 [facility] Comment on above: Performed By: #### T NS #### [facility] [address] [place] [address] Dr. Jose Elias Strong MONOM% 9.0 % Normal 1.7-12.0 [facility] Comment on above: Performed By: #### T NS #### [facility] [address] [place] [address] Dr. Jose Elias Strong MPV 9.6 fL Normal 9.5-13.5 [facility] Comment on above: Performed By: #### T NS #### [facility] [address] [place] [address] Dr. Jose Elias Strong MYELOCYTE # Normal [facility] Comment on above: Performed By: #### T NS #### [facility] [address] [place] [address] Dr. Jose Elias Strong MYELOCYTE % Normal [facility] Comment on above: Performed By: #### T NS #### [facility] [address] [address] [address] Jose Elias Strong NRBC Normal [facility] Comment on above: Performed By: #### T NS #### [facility] [address] [address] [address] Jose Elias Strong PLT 308 103/ul Normal 150-450 [facility] Comment on above: Performed By: #### T NS #### [facility] [address] [address] [address] Jose Elias Strong RBC 3.65 106/ul Critically low 4.20-5.40 [facility] Comment on above: Performed By: #### T NS #### [facility] [address] [address] [address] Jose Elias Strong RDW 15.7 % Critically high 11.0-15.0 [facility] Comment on above: Performed By: #### T NS #### [facility] [address] [address] [address] Jose Elias Strong SEG # 14.58 103/ul Critically high 1.40-6.50 [facility] Comment on above: Performed By: #### T NS #### [facility] [address] [address] [address] Jose Elias Strong SEG % 81.0 % Critically high 43.0-75.0 [facility] Comment on above: Performed By: #### T NS #### [facility] [address] [address] [address] Jose Elias Strong WBC 18.0 103/ul Critically high 4.0-11.0 [facility] Comment on above: Performed By: #### T NS #### [facility] [address] [address] [address] Jose Elias Strong DRUG SCREEN RAPID (URINE)on 08-20-2021 AMP Negative Normal NEGATIVE [facility] Comment on above: Performed By: #### T NS #### [facility] [address] [address] [address] Jose Elias Strong BAR Negative Normal NEGATIVE [facility] Comment on above: Performed By: #### T NS #### [facility] [address] [place] [address] Dr. Jose Elias Strong BUP Negative Normal NEGATIVE [facility] Comment on above: Performed By: #### T NS #### [facility] [address] [place] [address] Dr. Jose Elias Strong BZO Negative Normal NEGATIVE [facility] Comment on above: Performed By: #### T NS #### [facility] [address] [place] [address] Dr. Jose Elias Strong PAXTON Negative Normal NEGATIVE [facility] Comment on above: Performed By: #### T NS #### [facility] [address] [place] [address] Dr. Jose Elias Strong CUT-OFFS SEE BELOW Normal [facility] Comment on above: Result Comment: AMP (Amphetamine): 500ng/mL, BAR (Barbituates): 200 ng/mL, BZO (Benzodiazepines): 150 ng/mL, BUP (Buprenorphine): 10 ng/mL, PAXTON (Cocaine): 150 ng/mL, mAMP (Methamphetamine): 500 ng/mL, MTD (Methadone): 200 ng/mL, OPI (Opiates): 100 ng/mL, OXY (Oxycodone): 100 ng/mL, PCP (Phencyclidine): 25 ng/mL, PPX (Propoxyphene): 300 ng/mL, THC (Cannabinoids): 50 ng/mL, TCA (Trycyclic Antidepressants): 300 ng/mL Performed By: #### T NS #### [facility] [address] [place] [address] Dr. Jose Elias Strong DRUG CUT HEADER DRUG CLASS TEST SYSTEM CUT-OFF CONCENTRATIONS ARE FOLLOWS: Normal [facility] Comment on above: Performed By: #### T NS #### [facility] [address] [place] [address] Dr. Jose Elias Strong mAMP Negative Normal NEGATIVE [facility] Comment on above: Performed By: #### T NS #### [facility] [address] [place] [address] Dr. Jose Elias Strong MTD Negative Normal NEGATIVE [facility] Comment on above: Performed By: #### T NS #### [facility] [address] [place] [address] Dr. Jose Elias Strong OPI Negative Normal NEGATIVE [facility] Comment on above: Performed By: #### T NS #### [facility] [address] [place] [address] Dr. Jose Elias Strong OXY Negative Normal NEGATIVE [facility] Comment on above: Performed By: #### T NS #### [facility] [address] [place] [address] Dr. Jose Elias Strong PCP Negative Normal NEGATIVE [facility] Comment on above: Performed By: #### T NS #### [facility] [address] [place] [address] Dr. Jose Elias Strong PPX Negative Normal NEGATIVE [facility] Comment on above: Performed By: #### T NS #### [facility] [address] [place] [address] Dr. Jose Elias Strong TCA Negative Normal NEGATIVE [facility] Comment on above: Performed By: #### T NS #### [facility] [address] [place] [address] Dr. Jose Elias Strong THC Negative Normal NEGATIVE [facility] Comment on above: Performed By: #### T NS #### [facility] [address] [place] [address] Dr. Jose Elias Strong UA (CLEAN/CATCH) ENGINEER SOILS/MICRO I F IND.on 08-20-2021 Bilirubin Ql (U) Negative Normal NEGATIVE [facility] Comment on above: Performed By: #### U MICRO, UACSIND #### [facility] [address] [place] [address] Dr. Jose Elias Strong Clarity (U) SL CLOUDY Abnormal CLEAR [facility] Comment on above: Performed By: #### U MICRO, UACSIND #### [facility] [address] [place] [address] Dr. Jose Elias Strong Color (U) RED Abnormal YELLOW [facility] Comment on above: Performed By: #### U MICRO, UACSIND #### [facility] [address] [place] [address] Dr. Jose Elias Strong Glucose Ql (U) Negative Normal NEGATIVE [facility] Comment on above: Performed By: #### U MICRO, UACSIND #### [facility] [address] [address] [address] Jose Elias Strong Hemoglobin Ql (U) LARGE Abnormal NEGATIVE [facility] Comment on above: Performed By: #### U MICRO, UACSIND #### [facility] [address] [address] [address] Jose Elias Strong Ketones Ql (U) 15 mg/dl Abnormal NEGATIVE [facility] Comment on above: Performed By: #### U MICRO, UACSIND #### [facility] [address] [address] [address] Jose Elias Strong LEUKOCYTES TRACE Abnormal NEGATIVE [facility] Comment on above: Performed By: #### U MICRO, UACSIND #### [facility] [address] [place] [address] Dr. Jose Elias Strong Nitrite Ql (U) Negative Normal NEGATIVE [facility] Comment on above: Performed By: #### U MICRO, UACSIND #### [facility] [address] [place] [address] Dr. Jose Elias Strong pH (U) 7.0 [pH] Normal 5-9 [facility] Comment on above: Performed By: #### U MICRO, UACSIND #### [facility] [address] [address] [address] Jose Elias Strong SPEC GRAVITY 1.020 Normal 1.005-<=1.025 [facility] Comment on above: Performed By: #### U MICRO, UACSIND #### [facility] [address] [address] [address] Jose Elias Strong UA PROTEIN 30 mg/dl Abnormal NEGATIVE/ TRACE [facility] Comment on above: Performed By: #### U MICRO, UACSIND #### [facility] [address] [place] [address] Dr. Jose Elias Strong UR MICRO IND INDICATED Normal [facility] Comment on above: Performed By: #### U MICRO, UACSIND #### [facility] [address] [address] [address] Jose Elias Strong Urobilinogen Qn (U) 0.2 {Mago'U}/dL Normal 0.2 - 1. 0 [facility] Comment on above: Performed By: #### U MICRO, UACSIND #### [facility] [address] [address] [address] Jose Elias Strong URINE MICROSCOPIC ONLYon BACTERIA NONE SEEN Normal NONE SEEN [facility] Comment on above: Performed By: #### U MICRO, UACSIND #### [facility] [address] [address] [address] Jose Elias Strong Bacteria identified Cx Nom (U) NOT INDICATED Normal [facility] Comment on above: Performed By: #### U MICRO, UACSIND #### [facility] [address] [address] [address] Jose Elias Strong CAST NONE SEEN Normal NONE SEEN [facility] Comment on above: Performed By: #### U MICRO, UACSIND #### [facility] [address] [address] [address] Jose Elias Strong Crystals LM Nom (Urine sed) NONE SEEN Normal NONE SEEN [facility] Comment on above: Performed By: #### U MICRO, UACSIND #### [facility] [address] [address] [address] Jose Elias Strong Epithelial cells LM Ql (Urine sed) NONE SEEN Normal NONE SEEN /RARE [facility] Comment on above: Performed By: #### U MICRO, UACSIND #### [facility] [address] [address] [address] Jose Elias Strong MUCOUS NONE SEEN Normal NONE SEEN [facility] Comment on above: Performed By: #### U MICRO, UACSIND #### [facility] [address] [address] [address] Jose Elias Strong RBC (U) [#/Vol] /uL Abnormal 0-2 [facility] Comment on above: Performed By: #### U MICRO, UACSIND #### [facility] [address] [address] [address] Jose Elias Strong WBC 0-2 Abnormal NONE SEEN [facility] Comment on above: Performed By: #### U MICRO, UACSIND #### [facility] [address] [place] [address] Dr. Jose Elias Strong CBC AUTO DIFFon 08-19-2021 BASO # 0.0 103/ul Normal 0.0-0.1 [facility] Comment on above: Performed By: #### T NS #### [facility] [address] [place] [address] Dr. Jose Elias Strong Basophils/100 WBC (Bld) 0.2 % Normal 0.2-2.0 [facility] Comment on above: Performed By: #### T NS #### [facility] [address] [place] [address] Dr. Jose Elias Strong EO # 0.1 103/ul Normal 0.0-0.7 [facility] Comment on above: Performed By: #### T NS #### [facility] [address] [place] [address] Dr. Jose Elias Strong Eosinophils/100 WBC (Bld) 0.7 % Critically low 0.9-7.0 [facility] Comment on above: Performed By: #### T NS #### [facility] [address] [place] [address] Dr. Jose Elias Strong Erythrocyte distribution width (RBC) [Ratio] 15.9 % Critically high 11.0-15.0 [facility] Comment on above: Performed By: #### T NS #### [facility] [address] [place] [address] Dr. Jose Elias Strong Hematocrit (Bld) [Volume fraction] 32.4 % Critically low 36.0-48.0 [facility] Comment on above: Performed By: #### T NS #### [facility] [address] [place] [address] Dr. Jose Elias Strong Hemoglobin (Bld) [Mass/Vol] 9.7 g/dL Critically low 12.0-16.0 [facility] Comment on above: Performed By: #### T NS #### [facility] [address] [place] [address] Dr. Jose Elias Strong IG # 0.19 10e3/ul Critically high 0.00-0.03 [facility] Comment on above: Performed By: #### T NS #### [facility] [address] [address] [address] Jose Elias Strong IG % 1.4 % Critically high 0.0-0.5 [facility] Comment on above: Performed By: #### T NS #### [facility] [address] [address] [address] Jose Elias Strong LYMPH # 1.9 103/ul Normal 1.2-3.8 [facility] Comment on above: Performed By: #### T NS #### [facility] [address] [place] [address] Dr. Jose Elias Strong Lymphocytes/100 WBC (Bld) 14.4 % Critically low 20.5-60.0 [facility] Comment on above: Performed By: #### T NS #### [facility] [address] [place] [address] Dr. Jose Elias Strong MANUAL DIFF REQ NO Normal [facility] Comment on above: Performed By: #### T NS #### [facility] [address] [place] [address] Dr. Jose Elias Strong MCH (RBC) [Entitic mass] 22.3 pg Critically low 26.7-34.0 [facility] Comment on above: Performed By: #### T NS #### [facility] [address] [place] [address] Dr. Jose Elias Strong MCHC (RBC) [Mass/Vol] 29.9 g/dL Normal 29.9-35.2 [facility] Comment on above: Performed By: #### T NS #### [facility] [address] [place] [address] Dr. Jose Elias Strong MCV (RBC) [Entitic vol] 74.5 fL Critically low 81.0-99.0 [facility] Comment on above: Performed By: #### T NS #### [facility] [address] [place] [address] Dr. Jose Elias Strong MONO # 1.4 103/ul Critically high 0.3-0.8 [facility] Comment on above: Performed By: #### T NS #### [facility] [address] [place] [address] Dr. Jose Elias Strong Monocytes/100 WBC (Bld) 10.1 % Normal 1.7-12.0 [facility] Comment on above: Performed By: #### T NS #### [facility] [address] [place] [address] Dr. Jose Elias Strong NEUT # 9.8 103/ul Critically high 1.4-6.5 [facility] Comment on above: Performed By: #### T NS #### [facility] [address] [place] [address] Dr. Jose Elias Strong Neutrophils/100 WBC (Bld) 73.2 % Normal 43.0-75.0 [facility] Comment on above: Performed By: #### T NS #### [facility] [address] [place] [address] Dr. Jose Elias Strong Platelet mean volume (Bld) [Entitic vol] 10.0 fL Normal 9.5-13.5 [facility] Comment on above: Performed By: #### T NS #### [facility] [address] [place] [address] Dr. Jose Elias Strong PLT 337 103/ul Normal 150-450 [facility] Comment on above: Performed By: #### T NS #### [facility] [address] [place] [address] Dr. Jose Elias Strong RBC 4.35 106/ul Normal 4.20-5.40 [facility] Comment on above: Performed By: #### T NS #### [facility] [address] [place] [address] Dr. Jose Elias Strong WBC 13.4 103/ul Critically high 4.0-11.0 [facility] Comment on above: Performed By: #### T NS #### [facility] [address] [place] [address] Dr. Jose Elias Strong Covid-19 PCR ([facility])on 08-03 SARS-CoV-2 (COVID-19) RNA [place]+probe Ql (Unsp spec) Not detected Normal NOT DETECTED [facility] Comment on above: Result Comment: When [...] for this test is supported by the [place] of Health and Human Service's declaration that [...] used). Performed By: #### C VDTBH #### [facility] [address] [place] [address] Dr. Jose Elias Strong TYPE AND SCREENon 08-19-2021 TYPE AND SCREEN Negative Normal [facility] Comment on above: Performed By: #### T NS #### [facility] [address] [place] [address] Dr. Jose Elais Strong GROUP B STREP CULTUREon 07-05 S. agalactiae Ag Ql (Unsp spec) Culture Observations: NEGATIVE FOR GROUP B STREPTOCOCCUS. Normal [facility] Comment on above: Performed By: #### G BSCX #### [facility] [address] [place] [address] Dr. Jose Elias Strong UA (CLEAN/CATCH) ENGINEER SOILS/MICRO I F IND.on 06-28-2021 Bilirubin Ql (U) Negative Normal NEGATIVE [facility] Comment on above: Performed By: #### U ACSIND UMICRO #### [facility] [address] [place] [address] Dr. Jose Elias Strong Clarity (U) CLEAR Normal CLEAR [facility] Comment on above: Performed By: #### U ACSIND, UMICRO #### [facility] [address] [address] [address] Jose Elias Strong Color (U) LT. YELLOW Normal YELLOW [facility] Comment on above: Performed By: #### U ACSIND, UMICRO #### [facility] [address] [address] [address] Jose Elias Strong Glucose Ql (U) Negative Normal NEGATIVE [facility] Comment on above: Performed By: #### U ACSIND, UMICRO #### [facility] [address] [address] [address] Jose Elias Strong Hemoglobin Ql (U) Negative Normal NEGATIVE [facility] Comment on above: Performed By: #### U ACSIND, UMICRO #### [facility] [address] [place] [address] Dr. Jose Elias Strong Ketones Ql (U) Negative Normal NEGATIVE [facility] Comment on above: Performed By: #### U ACSIND, UMICRO #### [facility] [address] [address] [address] Jose Elias Strong LEUKOCYTES TRACE Abnormal NEGATIVE [facility] Comment on above: Performed By: #### U ACSIND, UMICRO #### [facility] [address] [address] [address] Jose Elias Strong Nitrite Ql (U) Negative Normal NEGATIVE [facility] Comment on above: Performed By: #### U ACSIND, UMICRO #### [facility] [address] [address] [address] Jose Elias Strong pH (U) 6.5 [pH] Normal 5-9 [facility] Comment on above: Performed By: #### U ACSIND, UMICRO #### [facility] [address] [address] [address] Jose Elias Strong SPEC GRAVITY 1.015 Normal 1.005-<=1.025 [facility] Comment on above: Performed By: #### U ACSIND, UMICRO #### [facility] [address] [address] [address] Jose Elias Strong UA PROTEIN Negative Normal NEGATIVE/ TRACE [facility] Comment on above: Performed By: #### U ACSIND, UMICRO #### [facility] [address] [address] [address] Jose Elias Strong UR MICRO IND INDICATED Normal [facility] Comment on above: Performed By: #### U ACSIND, UMICRO #### [facility] [address] [address] [address] Jose Elias Strong Urobilinogen Qn (U) 0.2 {Mago'U}/dL Normal 0.2 - 1. 0 [facility] Comment on above: Performed By: #### U ACSIND, UMICRO #### [facility] [address] [address] [address] Jose Elias Strong URINE MICROSCOPIC ONLYon AMORPHOUS CRYSTALS FEW Normal [facility] Comment on above: Performed By: #### U ACSIND, UMICRO #### [facility] [address] [place] [address] Dr. Jose Elias Strong BACTERIA TRACE Abnormal NONE SEEN [facility] Comment on above: Performed By: #### U ACSIND, UMICRO #### [facility] [address] [place] [address] Dr. Jose Elias Strong Bacteria identified Cx Nom (U) NOT INDICATED Normal [facility] Comment on above: Performed By: #### U ACSIND, UMICRO #### [facility] [address] [place] [address] Dr. Jose Elias Strong CAST NONE SEEN Normal NONE SEEN [facility] Comment on above: Performed By: #### U ACSIND, UMICRO #### [facility] [address] [place] [address] Dr. Jose Elias Strong Crystals LM Nom (Urine sed) SEEN Abnormal NONE SEEN [facility] Comment on above: Performed By: #### U ACSIND, UMICRO #### [facility] [address] [place] [address] Dr. Jose Elias Strong Epithelial cells LM Ql (Urine sed) RARE Normal NONE SEEN /RARE [facility] Comment on above: Performed By: #### U ACSIND, UMICRO #### [facility] [address] [place] [address] Dr. Jose Elias Strong MUCOUS TRACE Abnormal NONE SEEN [facility] Comment on above: Performed By: #### U LAURENT LEDYRO #### [facility] [address] [place] [address] Dr. Jose Elias Strong RBC 0-2 Normal 0-2 [facility] Comment on above: Performed By: #### U BRODIE MANCILLARO #### [facility] [address] [place] [address] Dr. Jose Elias Strong WBC 2-5 Abnormal NONE SEEN [facility] Comment on above: Performed By: #### [facility] #### [facility] [address] [place] [address] Dr. Jose Elias Strong CBC AUTO DIFFon 06-19-2021 BASO # 0.0 103/ul Normal 0.0-0.1 [facility] Comment on above: Performed By: #### C BC #### [facility] [address] [place] [address] Dr. Jose Elias Strong Basophils/100 WBC (Bld) 0.3 % Normal 0.2-2.0 [facility] Comment on above: Performed By: #### C BC #### [facility] [address] [place] [address] Dr. Jose Elias Strong EO # 0.2 103/ul Normal 0.0-0.7 [facility] Comment on above: Performed By: #### C BC #### [facility] [address] [place] [address] Dr. Jose Elias Strong Eosinophils/100 WBC (Bld) 2.0 % Normal 0.9-7.0 [facility] Comment on above: Performed By: #### C BC #### [facility] [address] [place] [address] Dr. Jose Elias Strong Erythrocyte distribution width (RBC) [Ratio] 13.6 % Normal 11.0-15.0 [facility] [facility] Comment on above: Performed By: #### C BC #### [facility] [address] [place] [address] Dr. Jose Elias Strong Hematocrit (Bld) [Volume fraction] 29.4 % Critically low 36.0-48.0 [facility] Comment on above: Performed By: #### C BC #### [facility] [address] [place] [address] Dr. Jose Elias Strong Hemoglobin (Bld) [Mass/Vol] 9.5 g/dL Critically low 12.0-16.0 [facility] Comment on above: Performed By: #### C BC #### [facility] [address] [place] [address] Dr. Jose Elias Strong IG # 0.14 10e3/ul Critically high 0.00-0.03 [facility] Comment on above: Performed By: #### C BC #### [facility] [address] [place] [address] Dr. Jose Elias Strong IG % 1.4 % Critically high 0.0-0.5 [facility] Comment on above: Performed By: #### C BC #### [facility] [address] [place] [address] Dr. Jose Elias Strong LYMPH # 1.6 103/ul Normal 1.2-3.8 [facility] Comment on above: Performed By: #### C BC #### [facility] [address] [place] [address] Dr. Jose Elias Strong Lymphocytes/100 WBC (Bld) 15.5 % Critically low 20.5-60.0 [facility] Comment on above: Performed By: #### C BC #### [facility] [address] [place] [address] Dr. Jose Elias Strong MANUAL DIFF REQ NO Normal [facility] Comment on above: Performed By: #### C BC #### [facility] [address] [place] [address] Dr. Jose Elias Strong MCH (RBC) [Entitic mass] 26.8 pg Normal 26.7-34.0 [facility] Comment on above: Performed By: #### C BC #### [facility] [address] [place] [address] Dr. Jose Elias Strong MCHC (RBC) [Mass/Vol] 32.3 g/dL Normal 29.9-35.2 [facility] Comment on above: Performed By: #### C BC #### [facility] [address] [address] [address] Jose Elias Strong MCV (RBC) [Entitic vol] 82.8 fL Normal 81.0-99.0 [facility] Comment on above: Performed By: #### C BC #### [facility] [address] [address] [address] Jose Elias Strong MONO # 1.2 103/ul Critically high 0.3-0.8 [facility] Comment on above: Performed By: #### C BC #### [facility] [address] [place] [address] Dr. Jose Elias Strong Monocytes/100 WBC (Bld) 12.2 % Critically high 1.7-12.0 [facility] Comment on above: Performed By: #### C BC #### [facility] [address] [place] [address] Dr. Jose Elias Strong NEUT # 7.0 103/ul Critically high 1.4-6.5 [facility] Comment on above: Performed By: #### C BC #### [facility] [address] [place] [address] Dr. Jose Elias Strong Neutrophils/100 WBC (Bld) 68.6 % Normal 43.0-75.0 [facility] Comment on above: Performed By: #### C BC #### [facility] [address] [address] [address] Jose Elias Strong Platelet mean volume (Bld) [Entitic vol] 9.1 fL Critically low 9.5-13.5 [facility] Comment on above: Performed By: #### C BC #### [facility] [address] [place] [address] Dr. Jose Elias Strong PLT 309 103/ul Normal 150-450 [facility] Comment on above: Performed By: #### C BC #### [facility] [address] [place] [address] Dr. Jose Elias Strong RBC 3.55 106/ul Critically low 4.20-5.40 [facility] Comment on above: Performed By: #### C BC #### [facility] [address] [address] [address] Jose Elias Strong WBC 10.1 103/ul Normal 4.0-11.0 [facility] Comment on above: Performed By: #### C BC #### [facility] [address] [address] [address] Jose Elias Strong GLYCOHEMOGLOBIN A1Con 2021 ADA RECOMMENDATION ADA THERAPEUTIC TARGET 6.0 - 7.0 ACTION SUGGESTED > 7.0 Normal [facility] Comment on above: Performed By: #### T NS #### [facility] [address] [place] [address] Dr. Jose Elias Strong Glucose [Mass/Vol] 97 mg/dL Normal [facility] Comment on above: Performed By: #### T NS #### [facility] [address] [address] [address] Jose Elias Strong HbA1c (Bld) [Mass fraction] 5.0 % Normal <=6.0 [facility] Comment on above: Performed By: #### T NS #### [facility] [address] [place] [address] Dr. Jose Elias Strong Consenton 10-24-2020 Consent [id number] .00CD:127 Normal [facility] In office Testingon 10-25-19 21 In office Testing [id number]# 1.00CD:127 Normal [facility] Registrationon 10-24-2020 Registration [id number]#1 .00CD:127 Normal [facility] Registration [id number]#1 .00CD:127 Normal [facility] Encounters Encounter Date Encounter Type Care Provider Facility Start: 05-29-2023 End: 05-29-2023 ambulatory SHIVA CHAN Not Available Start: 04-23-2023 End: 04-23-2023 ambulatory MARY MARIE Not Available Start: 03-19-2023 End: 03-19-2023 ambulatory MARY MARIE Not Available Start: 12-10-2022 ambulatory ALEXANDER Myers [facility] Start: 11-19-2022 End: 11-19-2022 ambulatory YOMAIRA [facility] Start: 10-28-2022 End: 10-29-2022 ambulatory ALEXANDER [facility] Start: 08-29-2022 ambulatory YOMAIRA GUILLEN [facility] Start: 08-19-2022 End: 08-19-2022 Emergency department patient visit YOMAIRA GUILLEN [facility] Start: 08-08-2022 End: 08-08-2022 Emergency department [...] MARIE Payers Date Payer Category Payer Medicaid [id number] 1995 Unknown [id number] 2.16.84 0.1.881418.3.579.2.593 1995 Unknown [id number] 2.16.84 0.1.723473.3.579.2.593 1995 Unknown [id number] 2.16.84 0.1.832021.3.579.2.593 1995 Unknown [id number] 2.16.84 0.1.985576.3.579.2.593 1995 Unknown [id number] 2.16.84 0.1.307594.3.579.2.593 1995 Unknown [id number] 2.16.84 0.1.728711.3.579.2.593 1995 Unknown [id number] 2.16.84 0.1.691435.3.579.2.593 1995 Unknown [id number] 2.16.84 0.1.494428.3.579.2.593 1995 Unknown [id number] 2.16.84 0.1.206441.3.579.2.1213 1995 Unknown [id number] 2.16.84 0.1.069285.3.579.2.1212 1995 Unknown [id number] 2.16.84 0.1.563185.3.579.2.1213 1995 Unknown [id number] 2.16.840 .1.317640.3.579.2.1212 1995 Unknown [id number] 2.16.840 .1.943956.3.579.2.1212 1995 Unknown [id number] 2.16.840 .1.568710.3.579.2.1212 1995 Unknown [id number] 2.16.84 0.1.609016.3.579.2.9 1995 Unknown [id number] 2.16.840 .1.097843.3.579.2.9 1995 Unknown [id number] 2.16.840. 1.029955.3.579.2.1259 1959 Unknown [id number] Summary Purpose Family History No Family History Records FoundNo Family History Records FoundNo Family History Records FoundNo Family History Records Found Advance Directives No Advanced Directives Records FoundNo Advanced Directives Records FoundNo Advanced Directives Records FoundNo Advanced Directives Records Found Additional Source Comments INFORMATION SOURCE (unrecogn ized section and content) DATE CREATED AUTHOR 10/25/2020 [facility] DATE CREATED AUTHOR AUTHOR'S ORGANIZ ATION 06/11/2022 [facility] DATE CREATED AUTHOR AUTHOR'S ORGANIZ ATION 12/16/2022 [facility] DATE CREATED AUTHOR AUTHOR'S ORGANIZ ATION 05/31/2023 [facility] FOR RECORDS PERTAINING TO PATIENTS [...] BE BASED ON THE PRIMARY CLINICAL RECORDS. [employer] provides no warranty or guarantee of the accuracy or completeness of information in this document.
--- NOTE | 2023-06-10 11:20 | US_ITS ---
[address] [address] Patient Name: KRISSY LOPEZ MRN: [facility]:[id number] date: 1995 Sex: F Assigned Patient Location: [facility] Current Patient Location: [facility] Accession/Order Number: [id number] Exam Date: 06/10/2023 11:21 Report Date: 06/10/2023 11:52 At the request of: MARY MARIE Procedure: US OB BPP w non-stress EXAMINATION: US OB BPP w non-stress HISTORY: EXCESSIVE GROWTH O36.63X1 COMPARISON: Ultrasound OB biophysical 06/03/2023 TECHNIQUE: Ultrasound biophysical profile was performed in the radiology department. BREATHING MOVEMENTS: 2.0 GROSS BODY MOVEMENTS: 2.0 TONE: 2.0 QUALITATIVE AMNIOTIC FLUID VOLUME: 2.0 PRESENTATION: BREECH HEART RATE: 150.8 bpm bpm. AMNIOTIC FLUID VOLUME: 27.2 cm (normal range <27.0 cm) GESTATIONAL AGE: 32 weeks 1 days CONCLUSION: 1. Total biophysical profile score 8.0. 2. Polyhydramnios. Electronically authenticated by: ERNST MURPHY Date: 06/10/2023 11:52
[2023-06-10 11:40] VITALS: BP 115/65; PULSE 90
--- NOTE | 2023-06-10 12:24 | PC.NURSE ---
dr cohen calls in and updated on ctx pattern and EZEKIEL
== END 2023-06-10 12:49 | disposition home or self-care (01) ==
LOC: US 07:16 → FBC 11:19
PROVIDERS: PCP Family Medicine; Visit Provider Obstetrics & Gynecology
DX: O36.63X1 Maternal care for excessive fetal growth, third trimester, fetus 1 (principal); Z3A.32 32 weeks gestation of pregnancy
CPT/HCPCS: 76818

== ENCOUNTER 2023-06-12 10:59 | Outpatient (OUT) | payer OTHER, SELFPAY ==
--- NOTE | 2023-06-12 10:28 | US_ITS ---
[address] [address] Patient Name: KRISSY LOPEZ MRN: [id number] date: 1995 Sex: F Assigned Patient Location: US Current Patient Location: [place] Accession/Order Number: [id number] Exam Date: 06/12/2023 10:29 Report Date: 06/12/2023 11:40 At the request of: SHIVA CHAN Procedure: US OB growth EXAMINATION: US OB growth HISTORY: SGA COMPARISON: No relevant comparison available. FINDINGS: Heart Rate: 151.0 bpm Amniotic Fluid Volume: 26.7 cm , polyhydramnios Number: 1.0 Position: CEPHALIC Maximum Vertical Pocket: 8.4 cm cm 5.5 cm cm 7.3 cm cm 5.4 cm cm BIOMETRY: BPD: 8.7 cm cm; 35 weeks 0 days; 96% HC: 31.8 cmcm; 35 weeks 6 days , 92% AC: 31.8 cm cm; 35 weeks 5 days, >97% FL: 6.5 cm cm; 33 weeks 3 days; 66.6 % % EFW: 2581.6 grams, 5lb 11oz, > 97% FL/AC: 20.4 FL/BPD: 74.9 HC/AC: 1.0 GESTATIONAL AGE: Age by EDC: 32 weeks 3 days ADEN by EDC: 08/04/2019 Age by US: 35 weeks 0 days ADEN by US: 07/17/23 US/US OB growth IMPRESSION: Large for gestational age, estimated weight 97th percentile Polyhydramnios Electronically authenticated by: HAMMAD FRAZIER Date: 06/12/2023 11:40
--- OUTSIDE RECORDS SUMMARY | 2023-06-16 11:01 | XMS_ITS | CCD ---
Author Name Unknown Address [facility] [address] [place] [address] Organization [facility] Care Team Providers Care Plant Utility Person Name Role Phone FRANK, DR HERNANDEZ Admitting [...] Attending Unavaila eusebio LAWLER, YOMAIRA GUILLEN Attending UnavailYOMAIRA Ingram Admitting Unavailab YMOAIRA Rocha Attending Unavailab YOMAIRA Rocha Consulting Unavailab le ALZTJ, ANAS Attending Unavailable ALZUHAILI, ANAS Attending Unavailable FRANK, MARY Attending Unavailable ROCIO SHIVA Attending Unavailable FRANK, MARY Attending Unavailable FRANK, MARY Attending Unavailable Allergies Allergy Classification Reported Allergen(s) Allergy Type Date of Onset Reaction(s) Facility (2 sources) Latex; Translations: [LATEX] Drug allergy (disorder) 6 [facility] Repository (2 sources) Leucine; Translations: [NICKEL] Drug Allergy 7 [facility] Repository (2 sources) Penicillins; Translations: [PENICILLINS] Drug allergy (disorder) 7 [facility] Repository (1 source) Shellfish Drug allergy (disorder) 7 [facility] Repository (1 source) Iodine; Translations: [IODINE] Drug Allergy 3 [facility] Repository (1 source) SHELLFISH CONTAINING PRODUCTS; Translations: [SHELLFISH CONTAINING PRODUCTS] Propensity to adverse reactions to drug (disorder) 3 [facility] Repository (1 source) VENOM-HONEY BEE; Translations: [VENOM-HONEY BEE] Propensity to adverse reactions to drug (disorder) 3 [facility] Repository Problems Active Problems Problem [...] sexual mode of transmission complicating childbirth; Translations: [OT INF SEXL TRNSMS COMP CHILDBIRTH] Onset: 08-19-2021 Episodic Other complications of ; puerperium affecting management of mother (1 source) Other mental disorders complicating childbirth; Translations: [OT MENTAL D/O COMP CHILDBIRTH] Onset: 08-30-2021 Episodic [...] HCG ( test) Ql (U) Negative Normal [facility] Comment on above: Order Comment: The c alculated GFR uses the (IDMS)-traceable creatinine MDRD equation and is reported in mL/min/1.73 square meters. This formula is not recommended for use with individuals with unstable creatinine concentrations, extremes in muscle mass and/or body size, or alternative diets and may not be suitable for all patient populations. Testing performed at [facility] [employer], [address] [place] [address] 78116 Result Comment: Note : This test provides only a presumptive diagnosis for . If the HCG result is inconsistent with clinical evidence, results should be confirmed with an alternative method, such as a quantitative HCG. Basic Metabolic Profileon ANIO 11 mmol/L Low 12-20 [facility] Comment on above: Order Comment: Testi ng performed at [facility], [address] [place] [address] 24237 Calcium [Mass/Vol] 9.5 mg/dL Normal 8.4-10.2 [facility] Comment on above: Order Comment: Testi ng performed at [facility], [address] [place] [address] 49999 Chloride [Moles/Vol] 107 mmol/L Normal 98-107 [facility] Comment on above: Order Comment: Testi ng performed at [facility], [address] [place] [address] 72157 CO2 [Moles/Vol] 23.0 mmol/L Normal 22.0-30.0 [facility] Comment on above: Order Comment: Testi ng performed at [facility], [address] [place] [address] 74441 Creatinine [Mass/Vol] 0.7 mg/dL Normal 0.6-1.2 [facility] Comment on above: Order Comment: Testi ng performed at [facility], [address] [place] [address] 73938 Glucose [Mass/Vol] 118 mg/dL High 74-106 [facility] Comment on above: Order Comment: Testi ng performed at [facility], [address] [place] [address] 69837 Potassium [Moles/Vol] 4.1 mmol/L Normal 3.3-4.9 [facility] Comment on above: Order Comment: Testi ng performed at [facility], [address] [place] [address] 45800 Sodium [Moles/Vol] 137 mmol/L Normal 137-145 [facility] Comment on above: Order Comment: Testi ng performed at [facility], [address] [place] [address] 94919 Urea nitrogen [Mass/Vol] 14 mg/dL Normal 8-19 [facility] Comment on above: Order Comment: Testi ng performed at [facility], [address] [place] [address] 72795 CBC w/Auto Diffon 08-19-2022 Basophils (Bld) [#/Vol] 0.04 10*3/uL Normal 0.00-0.10 [facility] Comment on above: Order Comment: [...] is no longer indicated. Testing performed at [facility], [address] [place] [address] 09678 Eosinophils (Bld) [#/Vol] 0.05 10*3/uL Normal 0.00-0.40 [facility] Comment on above: Order Comment: [...] is no longer indicated. Testing performed at [facility], [address] [place] [address] 06718 Erythrocyte distribution width (RBC) [Ratio] 13.3 % Normal 11.7-14.4 [facility] Comment on above: Order Comment: [...] is no longer indicated. Testing performed at [facility], [address] [place], [place] [id number] Hematocrit (Bld) [Volume fraction] 36.1 % Normal 34.1-44.9 [facility] Comment on above: Order Comment: [...] is no longer indicated. Testing performed at [facility], [address] [place] [address] 97073 Hemoglobin (Bld) [Mass/Vol] 12.0 g/dL Normal 11.2-15.7 [facility] Comment on above: Order Comment: [...] is no longer indicated. Testing performed at [facility], [address] [place] [address] 50235 IG % (B) 0.6 % High 0.0-0.4 [facility] Comment on above: Order Comment: [...] is no longer indicated. Testing performed at [facility] [employer], [address] [place] [address] 61924 IG# (B) 0.14 10*3/uL High 0.00-0.00 [facility] Comment on above: Order Comment: [...] is no longer indicated. Testing performed at [facility], [address] [place], [place] [phone] Lymphocytes (Bld) [#/Vol] 0.81 10*3/uL Low 1.20-3.70 [facility] Comment on above: Order Comment: [...] is no longer indicated. Testing performed at [facility], [address] [place] [address] 57582 MCH (RBC) [Entitic mass] 28.5 pg Normal 25.6-32.2 [facility] Comment on above: Order Comment: [...] is no longer indicated. Testing performed at [facility], [address] [place] [address] 76740 MCHC (RBC) [Mass/Vol] 33.2 g/dL Normal 32.2-35.5 [facility] Comment on above: Order Comment: [...] is no longer indicated. Testing performed at [facility], [address] [place] [address] 43367 MCV (RBC) [Entitic vol] 85.7 fL Normal 79.4-94.8 [facility] Comment on above: Order Comment: [...] is no longer indicated. Testing performed at [facility], [address] [place] [address] 22607 Monocytes (Bld) [#/Vol] 1.81 10*3/uL High 0.20-0.90 [facility] Comment on above: Order Comment: [...] is no longer indicated. Testing performed at [facility], [address] [place] [address] 55893 Neutrophils (Bld) [#/Vol] 20.04 10*3/uL High 1.60-6.10 [facility] Comment on above: Order Comment: [...] is no longer indicated. Testing performed at [facility], [address] [place] [address] 51906 NRBC % (B) 0.0 /100{WBC} Normal 0.0-0.2 [facility] Comment on above: Order Comment: [...] is no longer indicated. Testing performed at [facility], [address] [place] [address] 77449 NRBC# (B) 0.00 10*3/uL Normal 0.00-0.00 [facility] Comment on above: Order Comment: [...] is no longer indicated. Testing performed at [facility], [address] [place] [address] 70961 Platelet mean volume (Bld) [Entitic vol] 9.9 fL Normal 9.4-12.3 [facility] Comment on above: Order Comment: [...] is no longer indicated. Testing performed at [facility], [address] [place] [address] 93613 Platelets (Bld) [#/Vol] 267 10*3/uL Normal 182-369 [facility] Comment on above: Order Comment: [...] is no longer indicated. Testing performed at [facility], [address] [place] [address] 72245 RBC (Bld) [#/Vol] 4.21 10*6/uL Normal 3.93-5.22 [facility] Comment on above: Order Comment: [...] is no longer indicated. Testing performed at [facility], [address] [place] [address] 21901 RDW-SD (B) 41.1 fL Normal 36.4-46.3 [facility] Comment on above: Order Comment: [...] is no longer indicated. Testing performed at [facility], [address] [place], [place] [phone] WBC (Bld) [#/Vol] 22.9 10*3/uL High 4.0-10.0 [facility] Comment on above: Order Comment: [...] is no longer indicated. Testing performed at [facility], [address] [place] [address] NECK WITHOUT CONTRASTon 0 08-19-2022 CT [...] Salinas MD On: 08/19/2022 1:25 PM Normal [facility] EST Glomerular Filtration Ra jude 08-19-2022 EAGFR (B) >60 Normal >60 [facility] Comment on above: Order Comment: The c alculated GFR uses the (IDMS)-traceable creatinine MDRD equation and is reported in mL/min/1.73 square meters. This formula is not recommended for use with individuals with unstable creatinine concentrations, extremes in muscle mass and/or body size, or alternative diets and may not be suitable for all patient populations. Testing performed at [facility], [address] [place] [address] 96448 Result Comment: The reported eGFR is based on a non- patient, for Americans multiply the result by 1.212. HCG, Serumon 08-19-2022 HCGS Negative Normal [facility] Comment on above: Order Comment: Testi ng performed at [facility], [address] [place] [address] Result Comment: Note : This test provides only a presumptive diagnosis for . If the HCG result is inconsistent with clinical evidence, results should be confirmed with an alternative method, such as a quantitative HCG. Man Diffon 08-19-2022 Eos, Diff 2 % Normal 0-6 [facility] Comment on above: Order Comment: Testi ng performed at [facility], [address] [place] [address], [place] [address] Lymphocytes/100 WBC (Bld) 3 % Low 20-53 [facility] Comment on above: Order Comment: Testi ng performed at [facility], [address] [place] [address] Duval, Diff 6 % Normal 5-12 [facility] Comment on above: Order Comment: Testi ng performed at [facility], [address] [place] [address] 71325 Segs. Diff 89 % High 34-70 [facility] Comment on above: Order Comment: Testi ng performed at [facility], [address] [place] [address] Slide Scan Normal Normal Normal [facility] Comment on above: Order Comment: Testi ng performed at [facility], [address] [place] [address] Basic Metabolic Profileon ANIO 12 mmol/L Normal 12-20 [facility] Comment on above: Order Comment: Testi ng performed at [facility], [facility] [place] [address] Calcium [Mass/Vol] 9.1 mg/dL Normal 8.4-10.2 [facility] Comment on above: Order Comment: Testi ng performed at [facility], [address] [place] [address] Chloride [Moles/Vol] 106 mmol/L Normal 98-107 [facility] Comment on above: Order Comment: Testi ng performed at [facility], [place] [address] CO2 [Moles/Vol] 27.0 mmol/L Normal 22.0-30.0 [facility] Comment on above: Order Comment: [facility], [address] [place] [address] 94445 Creatinine [Mass/Vol] 0.6 mg/dL Normal 0.6-1.2 [facility] Comment on above: Order Comment: Test[facility] performed [facility], [address] [place] [address] 17544 Glucose [Mass/Vol] 95 mg/dL Normal 74-106 [facility] Comment on above: Order Comment: Testi ng performed at [facility], [address] [place] [address] 72758 Potassium [Moles/Vol] 4.1 mmol/L Normal 3.3-4.9 [facility] Comment on above: Order Comment: Testi ng performed [facility], [address] [place] [address] 07114 Sodium [Moles/Vol] 141 mmol/L Normal 137-145 [facility] Comment on above: Order Comment: Testi ng performed at [facility], [address] [place] [address] 69778 Urea nitrogen [Mass/Vol] 9 mg/dL Normal 8-19 [facility] Comment on above: Order Comment: Testi ng performed [facility], [address] [place] [address] 78754 CBC w/Auto Diffon 08-08-2022 Basophils (Bld) [#/Vol] 0.04 10*3/uL Normal 0.00-0.10 [facility] Comment on above: Order Comment: [...] Testing performed [facility], [address] [place] [address] 78839 Basophils/100 WBC (Bld) 0.4 % Normal 0.1-1.2 [facility] Comment on above: Order Comment: [...] is no longer indicated. Testing performed at [facility], [address] [place] [address] 78693 Eosinophils (Bld) [#/Vol] 0.21 10*3/uL Normal 0.00-0.40 [facility] Comment on above: Order Comment: [...] is no longer indicated. Testing performed at [facility], [address] [place] [address] 53004 Eosinophils/100 WBC (Bld) 2.1 % Normal 0.7-5.8 [facility] Comment on above: Order Comment: [...] is no longer indicated. Testing performed at [facility] [employer], [address] [place] [address] 14846 Erythrocyte distribution width (RBC) [Ratio] 12.9 % Normal 11.7-14.4 [facility] Comment on above: Order Comment: [...] is no longer indicated. [facility], [address] [place] [address] 97836 Hematocrit (Bld) [Volume fraction] 35.4 % Normal 34.1-44.9 [facility] Comment on above: Order Comment: [...] is no longer indicated. Testing performed at [facility], [address] [place] [address] 15821 Hemoglobin (Bld) [Mass/Vol] 11.2 g/dL Normal 11.2-15.7 [facility] Comment on above: Order Comment: [...] is no longer indicated. Testing performed at [facility], [address] [place] [address] 05222 IG % (B) 0.4 % Normal 0.0-0.4 [facility] Comment on above: Order Comment: [...] is no longer indicated. Testing performed at [facility], [address] [place] [address] 34283 IG# (B) 0.04 10*3/uL High 0.00-0.00 [facility] Comment on above: Order Comment: [...] is no longer indicated. Testing performed at [facility], [address] [place] [address] 47349 Lymphocytes (Bld) [#/Vol] 1.60 10*3/uL Normal 1.20-3.70 [facility] Comment on above: Order Comment: [...] is no longer indicated. Testing performed at [facility], [address] [place] [address] 49045 Lymphocytes/100 WBC (Bld) 16.3 % Low 19.3-51.7 [facility] Comment on above: Order Comment: [...] is no longer indicated. Testing performed at [facility], [address] [place] [address] 79247 MCH (RBC) [Entitic mass] 27.7 pg Normal 25.6-32.2 [facility] Comment on above: Order Comment: [...] is no longer indicated. Testing performed at [facility], [address] [place] [address] 11283 MCHC (RBC) [Mass/Vol] 31.6 g/dL Low 32.2-35.5 [facility] Comment on above: Order Comment: [...] is no longer indicated. Testing performed at [facility], [address] [place] [address] 58216 MCV (RBC) [Entitic vol] 87.4 fL Normal 79.4-94.8 [facility] Comment on above: Order Comment: [...] is no longer indicated. Testing performed at [facility], [address] [place] [address] 84982 Monocytes (Bld) [#/Vol] 0.88 10*3/uL Normal 0.20-0.90 [facility] Comment on above: Order Comment: [...] is no longer indicated. Testing performed at [facility], [address] [place] [address] 27314 Monocytes/100 WBC (Bld) 8.9 % Normal 4.7-12.5 [facility] Comment on above: Order Comment: [...] is no longer indicated. Testing performed at [facility], [address] [place] [address] 93011 Neutrophils (Bld) [#/Vol] 7.07 10*3/uL High 1.60-6.10 [facility] Comment on above: Order Comment: [...] is no longer indicated. Testing performed at [facility], [address] [place] [address] 90237 Neutrophils/100 WBC (Bld) 71.9 % High 34.0-71.1 [facility] Comment on above: Order Comment: [...] is no longer indicated. Testing performed at [facility], [address] [place] [address] 54454 NRBC % (B) 0.0 /100{WBC} Normal 0.0-0.2 [facility] Comment on above: Order Comment: [...] is no longer indicated. Testing performed at [facility], [address] [place] [address] 13341 NRBC# (B) 0.00 10*3/uL Normal 0.00-0.00 [facility] Comment on above: Order Comment: [...] is no longer indicated. Testing performed at [facility], [address] [place] [address] 73621 Platelet mean volume (Bld) [Entitic vol] 9.2 fL Low 9.4-12.3 [facility] Comment on above: Order Comment: [...] is no longer indicated. Testing performed at [facility], [address] [place] [address] 36742 Platelets (Bld) [#/Vol] 315 10*3/uL Normal 182-369 [facility] Comment on above: Order Comment: [...] is no longer indicated. Testing performed at [facility], [address] [place] [address] 82041 RBC (Bld) [#/Vol] 4.05 10*6/uL Normal 3.93-5.22 [facility] Comment on above: Order Comment: [...] is no longer indicated. Testing performed at [facility], [address] [place] [address] 87476 RDW-SD (B) 41.0 fL Normal 36.4-46.3 [facility] Comment on above: Order Comment: [...] is no longer indicated. Testing performed at [facility], [address] [place] [address] 64652 WBC (Bld) [#/Vol] 9.8 10*3/uL Normal 4.0-10.0 [facility] Comment on above: Order Comment: Immature Gran [...] is no longer indicated. Testing performed at [facility], [address] [place] [address] NECK WITHOUT CONTRASTon 0 08-08-2022 CT [...] Schultz MD On: 08/08/2022 4:07 PM Normal [facility] EST Glomerular Filtration Ra jude 08-08-2022 EAGFR (B) >60 Normal >60 [facility] Comment on above: Order Comment: The c alculated GFR uses the (IDMS)-traceable creatinine MDRD equation and is reported in mL/min/1.73 square meters. This formula is not recommended for use with individuals with unstable creatinine concentrations, extremes in muscle mass and/or body size, or alternative diets and may not be suitable for all patient populations. Testing performed at [facility], [address] [place] [address] Result Comment: The reported eGFR is based on a non- patient, for Americans multiply the result by 1.212. Pap IG, rfx Aptima HPV, rfx 16/18,45on 06-11-2022 . . Normal [facility] Comment on above: Result Comment: Perf ormed at: WB Performed By: #### P APHR2A #### [facility] [address] [place] [address] Dr. Jose Elias Strong DIAGNOSIS: Comment Normal [facility] Comment on above: Result Comment: NEGA TIVE FOR INTRAEPITHELIAL LESION OR MALIGNANCY. Performed at: WB Performed By: #### P APHR2A #### [facility] [address] [address] [address] Jose Elias Strong HPV Aptima Negative Normal Negative [facility] Comment on above: Result Comment: This nucleic acid amplification test detects fourteen high-risk HPV types (16,18,31,33,35,39,45,51,52,56,58,59,66,68) without differentiation. Performed at: =G Performed By: #### P APHR2A #### [facility] [address] [place] [address] Dr. JoseE lias Strong HPV Genotype Reflex Comment Normal [facility] Comment on above: Result Comment: Crit eria not met, HPV Genotype not performed. Performed at: WB Performed By: #### P APHR2A #### [facility] [address] [place] [address] Dr. Jose Elias Strong Methodology: Comment [facility] Comment on above: Result Comment: This liquid based ThinPrep(R) pap test was screened with the use of an image guided system. Performed at: WB Performed By: #### P APHR2A #### [facility] [address] [place] [address] Dr. Jose Elias Strong Note: Comment [facility] Comment on above: Result Comment: [...] WB Performed By: #### P APHR2A #### [facility] [address] [place] [address] Dr. Jose Elias Strong Performed by: Comment Normal [facility] Comment on above: Result Comment: Koffi Hutchinson, Commercial Announcer (ASCP) Performed at: WB Performed By: #### P APHR2A #### [facility] [address] [place] [address] Dr. Jose Elias Strong Specimen adequacy: Comment Normal [facility] Comment on above: Result Comment: Sati sfactory for evaluation. Endocervical and/or squamous metaplastic cells (endocervical component) are present. Performed at: WB Performed By: #### P APHR2A #### [facility] [address] [place] [address] Dr. Jose Elias Strong PAP ACOG PANEL 2: 21 to 29on 11-20-2021 . . Normal [facility] Comment on above: Performed By: #### [id number] #### [facility] [address] [place] [address] Dr. Jose Elias Strong Age Gdln ACOG Testing 21-29 Normal [facility] Comment on above: Performed By: #### [id number] #### [facility] [address] [address] [address] Jose Elias Strong DIAGNOSIS: Comment [facility] Comment on above: Result Comment: NEGA TIVE FOR INTRAEPITHELIAL LESION OR MALIGNANCY. REACTIVE CELLULAR CHANGES AND/OR REPAIR ARE PRESENT. Performed By: #### [id number] #### [facility] [address] [address] [address] Jose Elias Strong Electronically signed by: Comment Normal [facility] Comment on above: Result Comment: Melinda Patel MD, Pathologist Performed By: #### [id number] #### [facility] [address] [place] [address] Dr. Jose Elias Strong Methodology: Comment [facility] Comment on above: Result Comment: This liquid based ThinPrep(R) pap test was screened with the use of an image guided system. Performed By: #### [id number] #### [facility] [address] [place] [address] Dr. Jose Elias Strong Note: Comment [facility] Comment on above: Result Comment: The Pap smear is a screening test designed to aid in the detection of premalignant and malignant conditions of the uterine cervix. It is not a diagnostic procedure and should not be used as the sole means of detecting cervical cancer. Both false-positive and false-negative reports do occur. . Performed By: #### [id number] #### [facility] [address] [place] [address] Dr. Jose Elias Strong Performed by: Comment Normal [facility] Comment on above: Result Comment: Lilian Romero Commercial Announcer (ASCP) Performed By: #### [id number] #### [facility] [address] [place] [address] Dr. Jose Elias Strong Reflex Criteria: Comment [facility] Comment on above: Result Comment: The HPV DNA reflex criteria were not met with this specimen result therefore, no HPV testing was performed. . Performed By: #### [id number] #### [facility] [address] [place] [address] Dr. Jose Elias Strong Specimen adequacy: Comment Normal [facility] Comment on above: Result Comment: Sati sfactory for evaluation. Endocervical and/or squamous metaplastic cells (endocervical component) are present. Performed By: #### [id number] #### [facility] [address] [place] [address] Dr. Jose Elias Strong CBC W MANUAL DIFFon 08-21-19 22 ANISOCYTOSIS 1+ Normal [facility] Comment on above: Performed By: #### T NS #### [facility] [address] [place] [address] Dr. Jose Elias Strong ATYPICAL LYMPH # Normal [facility] Comment on above: Performed By: #### T NS #### [facility] [address] [place] [address] Dr. Jose Elias Strong ATYPICAL LYMPH % Normal [facility] Comment on above: Performed By: #### T NS #### [facility] [address] [place] [address] Dr. Jose Elias Strong BAND # 0.2 103/ul Normal 0.0-0.3 [facility] Comment on above: Performed By: #### T NS #### [facility] [address] [place] [address] Dr. Jose Elias Strong BAND % 1 % Normal 0-5 [facility] Comment on above: Performed By: #### T NS #### [facility] [address] [place] [address] Dr. Jose Elias Strong BASOM # 0.00 103/ul Normal 0.00-0.10 [facility] Comment on above: Performed By: #### T NS #### [facility] [address] [place] [address] Dr. Jose Elias Strong BASOM % 0.0 % Critically low 0.2-2.0 [facility] Comment on above: Performed By: #### T NS #### [facility] [address] [place] [address] Dr. Jose Elias Strong BLAST # Normal [facility] Comment on above: Performed By: #### T NS #### [facility] [address] [address] [address] Jose Elias Strong BLAST % Normal [facility] Comment on above: Performed By: #### T NS #### [facility] [address] [place] [address] Dr. Jose Elias Strong CORRECTED WBC Normal 4.0-11.0 [facility] Comment on above: Performed By: #### T NS #### [facility] [address] [place] [address] Dr. Jose Elias Strong EOS # 0.00 103/ul Normal 0.00-0.70 [facility] Comment on above: Performed By: #### T NS #### [facility] [address] [place] [address] Dr. Jose Elias Strong EOS% 0.0 % Critically low 0.9-7.0 [facility] Comment on above: Performed By: #### T NS #### [facility] [address] [place] [address] Dr. Jose Elias Strong HCT 27.5 % Critically low 36.0-48.0 [facility] Comment on above: Performed By: #### T NS #### [facility] [address] [place] [address] Dr. Jose Elias Strong HGB 8.1 g/dl Critically low 12.0-16.0 [facility] Comment on above: Performed By: #### T NS #### [facility] [address] [place] [address] Dr. Jose Elias Strong LYMPHM # 1.62 103/ul Normal 1.20-3.80 [facility] Comment on above: Performed By: #### T NS #### [facility] [address] [place] [address] Dr. Jose Elias Strong LYMPHM% 9.0 % Critically low 20.5-60.0 [facility] Comment on above: Performed By: #### T NS #### [facility] [address] [place] [address] Dr. Jose Elias Strong MCH 22.2 pg Critically low 26.7-34.0 [facility] Comment on above: Performed By: #### T NS #### [facility] [address] [place] [address] Dr. Jose Elias Strong MCHC 29.5 g/dl Critically low 29.9-35.2 [facility] Comment on above: Performed By: #### T NS #### [facility] [address] [place] [address] Dr. Jose Elias Strong MCV 75.3 fL Critically low 81.0-99.0 [facility] Comment on above: Performed By: #### T NS #### [facility] [address] [place] [address] Dr. Jose Elias Strong METAMYELOCYTE # Normal [facility] Comment on above: Performed By: #### T NS #### [facility] [address] [place] [address] Dr. Jose Elias Strong METAMYELOCYTE % Normal [facility] Comment on above: Performed By: #### T NS #### [facility] [address] [place] [address] Dr. Jose Elias Strong MONOM# 1.62 103/ul Critically high 0.30-0.80 [facility] Comment on above: Performed By: #### T NS #### [facility] [address] [place] [address] Dr. Jose Elias Strong MONOM% 9.0 % Normal 1.7-12.0 [facility] Comment on above: Performed By: #### T NS #### [facility] [address] [place] [address] Dr. Jose Elias Strong MPV 9.6 fL Normal 9.5-13.5 [facility] Comment on above: Performed By: #### T NS #### [facility] [address] [place] [address] Dr. Jose Elias Strong MYELOCYTE # Normal [facility] Comment on above: Performed By: #### T NS #### [facility] [address] [place] [address] Dr. Jose Elias Strong MYELOCYTE % Normal [facility] Comment on above: Performed By: #### T NS #### [facility] [address] [address] [address] Jose Elias Strong NRBC Normal [facility] Comment on above: Performed By: #### T NS #### [facility] [address] [address] [address] Jose Elias Strong PLT 308 103/ul Normal 150-450 [facility] Comment on above: Performed By: #### T NS #### [facility] [address] [address] [address] Jose Elias Strong RBC 3.65 106/ul Critically low 4.20-5.40 [facility] Comment on above: Performed By: #### T NS #### [facility] [address] [address] [address] Jose Elias Strong RDW 15.7 % Critically high 11.0-15.0 [facility] Comment on above: Performed By: #### T NS #### [facility] [address] [address] [address] Jose Elias Strong SEG # 14.58 103/ul Critically high 1.40-6.50 [facility] Comment on above: Performed By: #### T NS #### [facility] [address] [address] [address] Jose Elias Strong SEG % 81.0 % Critically high 43.0-75.0 [facility] Comment on above: Performed By: #### T NS #### [facility] [address] [address] [address] Jose Elias Strong WBC 18.0 103/ul Critically high 4.0-11.0 [facility] Comment on above: Performed By: #### T NS #### [facility] [address] [address] [address] Jose Elias Strong DRUG SCREEN RAPID (URINE)on 08-20-2021 AMP Negative Normal NEGATIVE [facility] Comment on above: Performed By: #### T NS #### [facility] [address] [address] [address] Jose Elias Strong BAR Negative Normal NEGATIVE [facility] Comment on above: Performed By: #### T NS #### [facility] [address] [place] [address] Dr. Jose Elias Strong BUP Negative Normal NEGATIVE [facility] Comment on above: Performed By: #### T NS #### [facility] [address] [place] [address] Dr. Jose Elias Strong BZO Negative Normal NEGATIVE [facility] Comment on above: Performed By: #### T NS #### [facility] [address] [place] [address] Dr. Jose Elias Strong PAXTON Negative Normal NEGATIVE [facility] Comment on above: Performed By: #### T NS #### [facility] [address] [place] [address] Dr. Jose Elias Strong CUT-OFFS SEE BELOW Normal [facility] Comment on above: Result Comment: AMP [...] ng/mL Performed By: #### T NS #### [facility] [address] [place] [address] Dr. Jose Elias Strong DRUG CUT HEADER DRUG CLASS TEST SYSTEM CUT-OFF CONCENTRATIONS ARE FOLLOWS: Normal [facility] Comment on above: Performed By: #### T NS #### [facility] [address] [place] [address] Dr. Jose Elias Strong mAMP Negative Normal NEGATIVE [facility] Comment on above: Performed By: #### T NS #### [facility] [address] [place] [address] Dr. Jose Elias Strong MTD Negative Normal NEGATIVE [facility] Comment on above: Performed By: #### T NS #### [facility] [address] [address] [address] Jose Elias Strong OPI Negative Normal NEGATIVE [facility] Comment on above: Performed By: #### T NS #### [facility] [address] [place] [address] Dr. Jose Elias Strong OXY Negative Normal NEGATIVE [facility] Comment on above: Performed By: #### T NS #### [facility] [address] [place] [address] Dr. Jose Elias Strong PCP Negative Normal NEGATIVE [facility] Comment on above: Performed By: #### T NS #### [facility] [address] [place] [address] Dr. Jose Elias Strong PPX Negative Normal NEGATIVE [facility] Comment on above: Performed By: #### T NS #### [facility] [address] [place] [address] Dr. Jose Elias Strong TCA Negative Normal NEGATIVE [facility] Comment on above: Performed By: #### T NS #### [facility] [address] [place] [address] Dr. Jose Elias Strong THC Negative Normal NEGATIVE [facility] Comment on above: Performed By: #### T NS #### [facility] [address] [place] [address] Dr. Jose Elias Strong UA (CLEAN/CATCH) ORDER ANALYST/MICRO I F IND.on 08-20-2021 Bilirubin Ql (U) Negative Normal NEGATIVE [facility] Comment on above: Performed By: #### U MICRO, UACSIND #### [facility] [address] [place] [address] Dr. Jose Elias Strong Clarity (U) SL CLOUDY Abnormal CLEAR [facility] Comment on above: Performed By: #### U MICRO, UACSIND #### [facility] [address] [place] [address] Dr. Jose Elias Strong Color (U) RED Abnormal YELLOW [facility] Comment on above: Performed By: #### U MICRO, UACSIND #### [facility] [address] [place] [address] Dr. Jose Elias Strong Glucose Ql (U) Negative Normal NEGATIVE [facility] Comment on above: Performed By: #### U MICRO, UACSIND #### [facility] [address] [address] [address] Jose Elias Strong Hemoglobin Ql (U) LARGE Abnormal NEGATIVE [facility] Comment on above: Performed By: #### U MICRO, UACSIND #### [facility] [address] [address] [address] Jose Elias Strong Ketones Ql (U) 15 mg/dl Abnormal NEGATIVE [facility] Comment on above: Performed By: #### U MICRO, UACSIND #### [facility] [address] [address] [address] Jose Elias Strong LEUKOCYTES TRACE Abnormal NEGATIVE [facility] Comment on above: Performed By: #### U MICRO, UACSIND #### [facility] [address] [address] [address] Jose Elias Strong Nitrite Ql (U) Negative Normal NEGATIVE [facility] Comment on above: Performed By: #### U MICRO, UACSIND #### [facility] [address] [address] [address] Jose Elias Strong pH (U) 7.0 [pH] Normal 5-9 [facility] Comment on above: Performed By: #### U MICRO, UACSIND #### [facility] [address] [address] [address] Jose Elias Strong SPEC GRAVITY 1.020 Normal 1.005-<=1.025 [facility] Comment on above: Performed By: #### U MICRO, UACSIND #### [facility] [address] [address] [address] Jose Elias Strong UA PROTEIN 30 mg/dl Abnormal NEGATIVE/ TRACE [facility] Comment on above: Performed By: #### U MICRO, UACSIND #### [facility] [address] [address] [address] Jose Elias Strong UR MICRO IND INDICATED Normal [facility] Comment on above: Performed By: #### U MICRO, UACSIND #### [facility] [address] [address] [address] Jose Elias Strong Urobilinogen Qn (U) 0.2 {Mago'U}/dL Normal 0.2 - 1. 0 [facility] Comment on above: Performed By: #### U MICRO, UACSIND #### [facility] [address] [place] [address] Dr. Jose Elias Strong URINE MICROSCOPIC ONLYon BACTERIA NONE SEEN Normal NONE SEEN The [facility] Comment on above: Performed By: #### U MICRO, UACSIND #### [facility] [address] [place] [address] Dr. Jose Elias Strong Bacteria identified Cx Nom (U) NOT INDICATED Normal [facility] Comment on above: Performed By: #### U MICRO, UACSIND #### [facility] [address] [place] [address] Dr. Jose Elias Strong CAST NONE SEEN Normal NONE SEEN [facility] Comment on above: Performed By: #### U MICRO, UACSIND #### [facility] [address] [place] [address] Dr. Jose Elias Strong Crystals LM Nom (Urine sed) NONE SEEN Normal NONE SEEN [facility] Comment on above: Performed By: #### U MICRO, UACSIND #### [facility] [address] [place] [address] Dr. Jose Elias Strong Epithelial cells LM Ql (Urine sed) NONE SEEN Normal NONE SEEN /RARE [facility] Comment on above: Performed By: #### U MICRO, UACSIND #### [facility] [address] [place] [address] Dr. Jose Elias Strong MUCOUS NONE SEEN Normal NONE SEEN [facility] Comment on above: Performed By: #### U MICRO, UACSIND #### [facility] [address] [place] [address] Dr. Jose Elias Strong RBC (U) [#/Vol] /uL Abnormal 0-2 [facility] Comment on above: Performed By: #### U MICRO, UACSIND #### [facility] [address] [place] [address] Dr. Jose Elias Strong WBC 0-2 Abnormal NONE SEEN The [facility] Comment on above: Performed By: #### U MICRO, UACSIND #### [facility] [address] [place] [address] Dr. Jose Elias Strong CBC AUTO DIFFon 08-19-2021 BASO # 0.0 103/ul Normal 0.0-0.1 [facility] Comment on above: Performed By: #### T NS #### [facility] [address] [place] [address] Dr. Jose Elias Strong Basophils/100 WBC (Bld) 0.2 % Normal 0.2-2.0 [facility] Comment on above: Performed By: #### T NS #### [facility] [address] [place] [address] Dr. Jose Elias Strong EO # 0.1 103/ul Normal 0.0-0.7 [facility] Comment on above: Performed By: #### T NS #### [facility] [address] [place] [address] Dr. Jose Elias Strong Eosinophils/100 WBC (Bld) 0.7 % Critically low 0.9-7.0 [facility] Comment on above: Performed By: #### T NS #### [facility] [address] [place] [address] Dr. Jose Elias Strong Erythrocyte distribution width (RBC) [Ratio] 15.9 % Critically high 11.0-15.0 [facility] Comment on above: Performed By: #### T NS #### [facility] [address] [place] [address] Dr. Jose Elias Strong Hematocrit (Bld) [Volume fraction] 32.4 % Critically low 36.0-48.0 [facility] Comment on above: Performed By: #### T NS #### [facility] [address] [place] [address] Dr. Jose lEias Strong Hemoglobin (Bld) [Mass/Vol] 9.7 g/dL Critically low 12.0-16.0 [facility] Comment on above: Performed By: #### T NS #### [facility] [address] [place], [place] [id number] Dr. Jose Elias Strong IG # 0.19 10e3/ul Critically high 0.00-0.03 [facility] Comment on above: Performed By: #### T NS #### [facility] [address] [place] [address] Dr. Jose Elias Strong IG % 1.4 % Critically high 0.0-0.5 [facility] Comment on above: Performed By: #### T NS #### [facility] [address] [place] [address] Dr. Jose Elias Strong LYMPH # 1.9 103/ul Normal 1.2-3.8 [facility] Comment on above: Performed By: #### T NS #### [facility] [address] [place] [address] Dr. Jose Elias Strong Lymphocytes/100 WBC (Bld) 14.4 % Critically low 20.5-60.0 [facility] Comment on above: Performed By: #### T NS #### [facility] [address] [place] [address] Dr. Jose Elias Strong MANUAL DIFF REQ NO Normal [facility] Comment on above: Performed By: #### T NS #### [facility] [address] [place] [address] Dr. Jose Elias Strong MCH (RBC) [Entitic mass] 22.3 pg Critically low 26.7-34.0 [facility] Comment on above: Performed By: #### T NS #### [facility] [address] [place] [address] Dr. Jose Elias Strong MCHC (RBC) [Mass/Vol] 29.9 g/dL Normal 29.9-35.2 [facility] Comment on above: Performed By: #### T NS #### [facility] [address] [place] [address] Dr. Jose Elias Strong MCV (RBC) [Entitic vol] 74.5 fL Critically low 81.0-99.0 [facility] Comment on above: Performed By: #### T NS #### [facility] [address] [place] [address] Dr. Jose Elias Strong MONO # 1.4 103/ul Critically high 0.3-0.8 [facility] Comment on above: Performed By: #### T NS #### [facility] [address] [place] [address] Dr. Jose Elias Strong Monocytes/100 WBC (Bld) 10.1 % Normal 1.7-12.0 [facility] Comment on above: Performed By: #### T NS #### [facility] [address] [place] [address] Dr. Jose Elias Strong NEUT # 9.8 103/ul Critically high 1.4-6.5 [facility] Comment on above: Performed By: #### T NS #### [facility] [address] [place] [address] Dr. Jose Elias Strong Neutrophils/100 WBC (Bld) 73.2 % Normal 43.0-75.0 [facility] Comment on above: Performed By: #### T NS #### [facility] [address] [place] [address] Dr. Jose Elias Strong Platelet mean volume (Bld) [Entitic vol] 10.0 fL Normal 9.5-13.5 [facility] Comment on above: Performed By: #### T NS #### [facility] [address] [place] [address] Dr. Jose Elias Strong PLT 337 103/ul Normal 150-450 [facility] Comment on above: Performed By: #### T NS #### [facility] [address] [place] [address] Dr. Jose Elias Strong RBC 4.35 106/ul Normal 4.20-5.40 [facility] Comment on above: Performed By: #### T NS #### [facility] [address] [place] [address] Dr. Jose Elias Strong WBC 13.4 103/ul Critically high 4.0-11.0 [facility] Comment on above: Performed By: #### T NS #### [facility] [address] [place] [address] Dr. Jose Elias Strong [facility]on 08-03 SARS-CoV-2 (COVID-19) RNA [place]+probe Ql (Unsp spec) Not detected Normal NOT DETECTED [facility] Comment on above: Result Comment: When [...] for this test is supported by the [place] of [employer] and Human Service's declaration that [...] used). Performed By: #### C VDTBH #### [facility] [address] [place] [address] Dr. Jose Elias Strong TYPE AND SCREENon 08-19-2021 TYPE AND SCREEN Negative Normal [facility] Comment on above: Performed By: #### T NS #### [facility] [address] [place] [address] Dr. Jose Elias Strong GROUP B STREP CULTUREon 07-05 S. agalactiae Ag Ql (Unsp spec) Culture Observations: NEGATIVE FOR GROUP B STREPTOCOCCUS. Normal [facility] Comment on above: Performed By: #### G BSCX #### [facility] [facility] [address] [place] [address] Dr. Jose Elias Strong UA (CLEAN/CATCH) ORDER ANALYST/MICRO I F IND.on 06-28-2021 Bilirubin Ql (U) Negative Normal NEGATIVE [facility] Comment on above: Performed By: #### U ACSIND, UMICRO #### [facility] [address] [place] [address] Dr. Jose Elias Strong Clarity (U) CLEAR Normal CLEAR [facility] Comment on above: Performed By: #### U ACSIND, UMICRO #### [facility] [address] [address] [address] Jose Elias Strong Color (U) LT. YELLOW Normal YELLOW [facility] Comment on above: Performed By: #### U ACSIND, UMICRO #### [facility] [address] [address] [address] Jose Elias Strong Glucose Ql (U) Negative Normal NEGATIVE The [facility] Comment on above: Performed By: #### U ACSIND, UMICRO #### [facility] [address] [address] [address] Jose Elias Strong Hemoglobin Ql (U) Negative Normal NEGATIVE [facility] Comment on above: Performed By: #### U ACSIND, UMICRO #### [facility] [address] [place] [address] Dr. Jose Elias Strong Ketones Ql (U) Negative Normal NEGATIVE [facility] Comment on above: Performed By: #### U ACSIND, UMICRO #### [facility] [address] [place] [address] Dr. Jose Elias Strong LEUKOCYTES TRACE Abnormal NEGATIVE [facility] Comment on above: Performed By: #### U ACSIND, UMICRO #### [facility] [address] [address] [address] Jose Elias Strong Nitrite Ql (U) Negative Normal NEGATIVE [facility] Comment on above: Performed By: #### U ACSIND, UMICRO #### [facility] [address] [address] [address] Jose Elias Strong pH (U) 6.5 [pH] Normal 5-9 [facility] Comment on above: Performed By: #### U ACSIND, UMICRO #### [facility] [address] [address] [address] Jose Elias Strong SPEC GRAVITY 1.015 Normal 1.005-<=1.025 [facility] Comment on above: Performed By: #### U ACSIND, UMICRO #### [facility] [address] [address] [address] Jose Elias Strong UA PROTEIN Negative Normal NEGATIVE/ TRACE The [facility] Comment on above: Performed By: #### U ACSIND, UMICRO #### [facility] [address] [place] [address] Dr. Jose Elias Strong UR MICRO IND INDICATED Normal [facility] Comment on above: Performed By: #### U ACSIND, UMICRO #### [facility] [address] [address] [address] Jose Elias Strong Urobilinogen Qn (U) 0.2 {Mago'U}/dL Normal 0.2 - 1. 0 [facility] Comment on above: Performed By: #### U ACSIND, UMICRO #### [facility] [address] [place] [address] Dr. Jose Elias Strong URINE MICROSCOPIC ONLYon AMORPHOUS CRYSTALS FEW Normal [facility] Comment on above: Performed By: #### U ACSIND, UMICRO #### [facility] [address] [place] [address] Dr. Jose Elias Strong BACTERIA TRACE Abnormal NONE SEEN [facility] Comment on above: Performed By: #### U ACSIND, UMICRO #### [facility] [address] [place] [address] Dr. Jose Elias Strong Bacteria identified Cx Nom (U) NOT INDICATED Normal [facility] Comment on above: Performed By: #### U ACSIND, UMICRO #### [facility] [address] [place] [address] Dr. Jose Elias Strong CAST NONE SEEN Normal NONE SEEN The [facility] Comment on above: Performed By: #### U ACSIND, UMICRO #### [facility] [address] [place] [address] Dr. Jose Elias Strong Crystals LM Nom (Urine sed) SEEN Abnormal NONE SEEN [facility] Comment on above: Performed By: #### U ACSIND, UMICRO #### [facility] [address] [place] [address] Dr. Jose Elias Strong Epithelial cells LM Ql (Urine sed) RARE Normal NONE SEEN /RARE The [facility] Comment on above: Performed By: #### U ACSIND, UMICRO #### [facility] [address] [place] [address] Dr. Jose Elias Strong MUCOUS TRACE Abnormal NONE SEEN The [facility] Comment on above: Performed By: #### U LAURENT ICRO #### [facility] [address] [place] [address] Dr. Jose Elias Strong RBC 0-2 Normal 0-2 [facility] Comment on above: Performed By: #### U LAURENT LEDYRO #### [facility] [address] [place] [address] Dr. Jose Elias Strong WBC 2-5 Abnormal NONE SEEN [facility] Comment on above: Performed By: #### [facility] #### [facility] [address] [place] [address] Dr. Jose Elias Strong CBC AUTO DIFFon 06-19-2021 BASO # 0.0 103/ul Normal 0.0-0.1 [facility] Comment on above: Performed By: #### C BC #### [facility] [address] [place] [address] Dr. Jose Elias Strong Basophils/100 WBC (Bld) 0.3 % Normal 0.2-2.0 [facility] Comment on above: Performed By: #### C BC #### [facility] [address] [place] [address] Dr. Jose Elias Strong EO # 0.2 103/ul Normal 0.0-0.7 [facility] Comment on above: Performed By: #### C BC #### [facility] [address] [place] [address] Dr. Jose Elias Strong Eosinophils/100 WBC (Bld) 2.0 % Normal 0.9-7.0 [facility] Comment on above: Performed By: #### C BC #### [facility] [address] [place] [address] Dr. Jose Elias Strong Erythrocyte distribution width (RBC) [Ratio] 13.6 % Normal 11.0-15.0 [facility] Comment on above: Performed By: #### C BC #### [facility] [address] [place] [address] Dr. Jose Elias Strong Hematocrit (Bld) [Volume fraction] 29.4 % Critically low 36.0-48.0 [facility] Comment on above: Performed By: #### C BC #### [facility] [address] [place] [address] Dr. Jose Elias Strong Hemoglobin (Bld) [Mass/Vol] 9.5 g/dL Critically low 12.0-16.0 [facility] Comment on above: Performed By: #### C BC #### [facility] [address] [place] [address] Dr. Jose Elias Strong IG # 0.14 10e3/ul Critically high 0.00-0.03 [facility] Comment on above: Performed By: #### C BC #### [facility] [address] [place] [address] Dr. Jose Elias Strong IG % 1.4 % Critically high 0.0-0.5 [facility] Comment on above: Performed By: #### C BC #### [facility] [address] [place] [address] Dr. Jose Elias Strong LYMPH # 1.6 103/ul Normal 1.2-3.8 [facility] Comment on above: Performed By: #### C BC #### [facility] [address] [place] [address] Dr. Jose Elias Strong Lymphocytes/100 WBC (Bld) 15.5 % Critically low 20.5-60.0 [facility] Comment on above: Performed By: #### C BC #### [facility] [address] [place] [address] Dr. Jose Elias Strong MANUAL DIFF REQ NO Normal [facility] Comment on above: Performed By: #### C BC #### [facility] [address] [place] [address] Dr. Jose Elias Strong MCH (RBC) [Entitic mass] 26.8 pg Normal 26.7-34.0 [facility] Comment on above: Performed By: #### C BC #### [facility] [address] [place] [address] Dr. Jose Elias Strong MCHC (RBC) [Mass/Vol] 32.3 g/dL Normal 29.9-35.2 [facility] Comment on above: Performed By: #### C BC #### [facility] [address] [address] [address] Jose Elias Strong MCV (RBC) [Entitic vol] 82.8 fL Normal 81.0-99.0 [facility] Comment on above: Performed By: #### C BC #### [facility] [address] [address] [address] Jose Elias Strong MONO # 1.2 103/ul Critically high 0.3-0.8 [facility] Comment on above: Performed By: #### C BC #### [facility] [address] [place] [address] Dr. Jose Elias Strong Monocytes/100 WBC (Bld) 12.2 % Critically high 1.7-12.0 [facility] Comment on above: Performed By: #### C BC #### [facility] [address] [place] [address] Dr. Jose Elias Strong NEUT # 7.0 103/ul Critically high 1.4-6.5 [facility] Comment on above: Performed By: #### C BC #### [facility] [address] [place] [address] Dr. Jose Elias Strong Neutrophils/100 WBC (Bld) 68.6 % Normal 43.0-75.0 [facility] Comment on above: Performed By: #### C BC #### [facility] [address] [place] [address] Dr. Jose Elias Strong Platelet mean volume (Bld) [Entitic vol] 9.1 fL Critically low 9.5-13.5 [facility] Comment on above: Performed By: #### C BC #### [facility] [address] [place] [address] Dr. Jose Elias Strong PLT 309 103/ul Normal 150-450 [facility] Comment on above: Performed By: #### C BC #### [facility] [address] [place] [address] Dr. Jose Elias Strong RBC 3.55 106/ul Critically low 4.20-5.40 [facility] Comment on above: Performed By: #### C BC #### [facility] [address] [address] [address] Jose Elias Strong WBC 10.1 103/ul Normal 4.0-11.0 [facility] Comment on above: Performed By: #### C BC #### [facility] [address] [address] [address] Jose Elias Strong GLYCOHEMOGLOBIN A1Con 2021 ADA RECOMMENDATION ADA THERAPEUTIC TARGET 6.0 - 7.0 ACTION SUGGESTED > 7.0 Normal [facility] Comment on above: Performed By: #### T NS #### [facility] [address] [place] [address] Dr. Jose Elias Strong Glucose [Mass/Vol] 97 mg/dL Normal [facility] Comment on above: Performed By: #### T NS #### [facility] [address] [address] [address] Jose Elias Strong HbA1c (Bld) [Mass fraction] 5.0 % Normal <=6.0 [facility] Comment on above: Performed By: #### T NS #### [facility] [address] [address] [address] Jose Elias Strong Consenton 10-24-2020 Consent [id number] .00CD:127 Normal [facility] In office Testingon 10-25-19 21 In office Testing [id number]# 1.00CD:127 Normal [facility] Registrationon 10-24-2020 Registration [id number] .00CD:127 [facility] Registration [id number] .00CD:127 [facility] Encounters Encounter Date Encounter Type Care Provider Facility Start: 06-12-2023 End: 06-12-2023 ambulatory MARY FRANK Not Available Start: 05-29-2023 End: 05-29-2023 ambulatory SHIVA CHAN Not Available Start: 04-23-2023 End: 04-23-2023 ambulatory MARY MARIE Not Available Start: 03-19-2023 End: 03-19-2023 ambulatory MARY MARIE Not Available Start: 12-10-2022 ambulatory [facility] Start: 11-19-2022 End: 11-19-2022 ambulatory YOMAIRA MINDY [facility] Start: 10-28-2022 End: 10-29-2022 ambulatory [facility] Start: 08-29-2022 ambulatory YOMAIRA MINDY [facility] Start: 08-19-2022 End: 08-19-2022 Emergency department patient visit Y[facility]IRA MINDY [facility] Start: 08-08-2022 End: 08-08-2022 [facility] Start: 06-04-2022 End: 06-04-[address] [...] MARIE Payers Date Payer Category Payer Medicaid [id number] 1995 Unknown [id number] 2.16.84 0.1.871107.3.579.2.593 1995 Unknown [id number] 2.16.84 0.1.563239.3.579.2.593 1995 Unknown [id number] 2.16.84 0.1.468268.3.579.2.593 1995 Unknown [id number] 2.16.84 0.1.160113.3.579.2.593 1995 Unknown [id number] 2.16.84 0.1.123899.3.579.2.593 1995 Unknown [id number] 2.16.84 0.1.835791.3.579.2.593 1995 Unknown [id number] 2.16.84 0.1.467510.3.579.2.593 1995 Unknown [id number] 2.16.84 0.1.092830.3.579.2.593 1995 Unknown [id number] 2.16.84 0.1.464467.3.579.2.1213 1995 Unknown [id number] 2.16.84 0.1.953579.3.579.2.1213 1995 Unknown [id number] 2.16.84 0.1.419553.3.579.2.121 1995 Unknown [id number] 2.16.840 .1.504402.3.579.2.121 1995 Unknown [id number] 2.16.840 .1.319974.3.579.2.1212 1995 Unknown [id number] 2.16.840 .1.958829.3.579.2.1212 1995 Unknown [id number] 2.16.84 0.1.660985.3.579.2.1259 1995 Unknown [id number] 2.16.84 0.1.424731.3.579.2.1259 1995 Unknown [id number] 2.16.840 .1.785221.3.579.2.1259 1995 Unknown [id number] 2.16.840. 1.133093.3.579.2.1259 1959 Unknown [id number] Summary Purpose Family History No Family History Records FoundNo Family History Records FoundNo Family History Records FoundNo Family History Records Found Advance Directives No Advanced Directives Records FoundNo Advanced Directives Records FoundNo Advanced Directives Records FoundNo Advanced Directives Records Found Additional Source Comments INFORMATION SOURCE (unrecogn ized section and content) DATE CREATED AUTHOR 10/25/2020 [facility] DATE CREATED AUTHOR AUTHOR'S ORGANIZ ATION 06/11/[address] [facility] DATE CREATED AUTHOR AUTHOR'S ORGANIZ ATION 12/16/2022 [facility] DATE CREATED AUTHOR AUTHOR'S ORGANIZ ATION 06/13/2023 [facility] FOR RECORDS PERTAINING TO PATIENTS WHO [...] BE BASED ON THE PRIMARY CLINICAL RECORDS. [employer] provides no warranty or guarantee of the accuracy or completeness of information in this document.
== END 2023-06-12 11:00 | disposition home or self-care (01) ==
LOC: US 06-16 10:59
PROVIDERS: PCP Family Medicine; Visit Provider Physician Assistant
DX: O36.63X1 Maternal care for excessive fetal growth, third trimester, fetus 1 (principal); Z3A.32 32 weeks gestation of pregnancy
CPT/HCPCS: 76816

== ENCOUNTER 2023-06-13 07:25 | Outpatient (OUT) | payer OTHER, SELFPAY ==
--- OUTSIDE RECORDS SUMMARY | 2023-06-13 07:28 | XMS_ITS | CCD ---
Author Name Unknown Address [facility] [address] [place] [address] Organization [facility] Care Team Providers Care Customer Marketing Assistant Name Role Phone FRANK, DR HERNANDEZ Admitting [...] Translations: [LATEX] Drug allergy (disorder) 6 [facility] Repository (2 sources) Leucine; Translations: [NICKEL] Drug Allergy 7 [facility] Repository (2 sources) Penicillins; Translations: [PENICILLINS] Drug allergy (disorder) 7 [facility] Repository (1 source) Shellfish Drug allergy (disorder) 7 [facility] Repository (1 source) Iodine; Translations: [IODINE] Drug Allergy 3 [facility] Repository (1 source) SHELLFISH CONTAINING PRODUCTS; Translations: [SHELLFISH CONTAINING PRODUCTS] Propensity to adverse reactions to drug (disorder) 3 [facility] Repository (1 source) VENOM-HONEY BEE; Translations: [VENOM-HONEY BEE] Propensity to adverse reactions to drug (disorder) 3 [facility] Repository Problems Active Problems Problem [...] HCG ( test) Ql (U) Negative Normal [facility] Comment on above: Order Comment: The c alculated GFR uses the (IDMS)-traceable creatinine MDRD equation and is reported in mL/min/1.73 square meters. This formula is not recommended for use with individuals with unstable creatinine concentrations, extremes in muscle mass and/or body size, or alternative diets and may not be suitable for all patient populations. Testing performed at [facility] [employer], [address] [place] [address] 96003 Result Comment: Note : This test provides only a presumptive diagnosis for . If the HCG result is inconsistent with clinical evidence, results should be confirmed with an alternative method, such as a quantitative HCG. Basic Metabolic Profileon ANIO 11 mmol/L Low 12-20 [facility] Comment on above: Order Comment: Testi ng performed at [facility], [address] [place] [address] 03860 Calcium [Mass/Vol] 9.5 mg/dL Normal 8.4-10.2 [facility] Comment on above: Order Comment: Testi ng performed at [facility], [address] [place] [address] 13745 Chloride [Moles/Vol] 107 mmol/L Normal 98-107 [facility] Comment on above: Order Comment: Testi ng performed at [facility], [address] [place] [address] 47426 CO2 [Moles/Vol] 23.0 mmol/L Normal 22.0-30.0 [facility] Comment on above: Order Comment: Testi ng performed at [facility], [address] [place] [address] 42624 Creatinine [Mass/Vol] 0.7 mg/dL Normal 0.6-1.2 [facility] Comment on above: Order Comment: Testi ng performed at [facility], [address] [place] [address] Glucose [Mass/Vol] 118 mg/dL High 74-106 [facility] Comment on above: Order Comment: Testi ng performed at [facility], [address] [place] [address] 10077 Potassium [Moles/Vol] 4.1 mmol/L Normal 3.3-4.9 [facility] Comment on above: Order Comment: Testi ng performed at [facility], [address] [place] [address] 71587 Sodium [Moles/Vol] 137 mmol/L Normal 137-145 [facility] Comment on above: Order Comment: Testi ng performed at [facility], [address] [place] [address] 53396 Urea nitrogen [Mass/Vol] 14 mg/dL Normal 8-19 [facility] Comment on above: Order Comment: Testi ng performed at [facility], [address] [place] [address] 54398 CBC w/Auto Diffon 08-19-2022 Basophils (Bld) [#/Vol] 0.04 10*3/uL Normal 0.00-0.10 [facility] Comment on above: [...] is no longer indicated. Testing performed at [facility], [address] [place] [address] 95659 Eosinophils (Bld) [#/Vol] 0.05 10*3/uL Normal 0.00-0.40 [facility] Comment on above: [...] is no longer indicated. Testing performed at [facility], [address] [place] [address] 72376 Erythrocyte distribution width (RBC) [Ratio] 13.3 % Normal 11.7-14.4 [facility] Comment on above: [...] no longer indicated. Testing performed at [facility], [address] [place], [place] [phone] Hematocrit (Bld) [Volume fraction] 36.1 % Normal 34.1-44.9 [facility] Comment on above: [...] no longer indicated. Testing performed at [facility], [address] [place] [address] 50048 Hemoglobin (Bld) [Mass/Vol] 12.0 g/dL Normal 11.2-15.7 [facility] Comment on above: [...] no longer indicated. Testing performed at [facility], [address] [place] [address] 28884 IG % (B) 0.6 % High 0.0-0.4 [facility] Comment on above: [...] no longer indicated. Testing performed at [facility], [address] [place] [address] 68087 IG# (B) 0.14 10*3/uL High 0.00-0.00 [facility] Comment on above: [...] no longer indicated. Testing performed at [facility], [address] [place] [address] 13948 Lymphocytes (Bld) [#/Vol] 0.81 10*3/uL Low 1.20-3.70 [facility] Comment on above: [...] no longer indicated. Testing performed at [facility], [address] [place] [address] 65728 MCH (RBC) [Entitic mass] 28.5 pg Normal 25.6-32.2 [facility] Comment on above: [...] is no longer indicated. Testing performed at [facility] [employer], [address] [place] [address] 87809 MCHC (RBC) [Mass/Vol] 33.2 g/dL Normal 32.2-35.5 [facility] Comment on above: [...] no longer indicated. Testing performed at [facility], [address] [place] [address] 67796 MCV (RBC) [Entitic vol] 85.7 fL Normal 79.4-94.8 [facility] Comment on above: [...] no longer indicated. Testing performed at [facility], [address] [place] [address] 94903 Monocytes (Bld) [#/Vol] 1.81 10*3/uL High 0.20-0.90 [facility] Comment on above: [...] no longer indicated. Testing performed at [facility], [address] [place] [address] 68785 Neutrophils (Bld) [#/Vol] 20.04 10*3/uL High 1.60-6.10 [facility] Comment on above: [...] no longer indicated. Testing performed at [facility], [address] [place] [address] 73794 NRBC % (B) 0.0 /100{WBC} Normal 0.0-0.2 [facility] Comment on above: [...] no longer indicated. Testing performed at [facility], [address] [place] [address] 72236 NRBC# (B) 0.00 10*3/uL Normal 0.00-0.00 [facility] Comment on above: [...] no longer indicated. Testing performed at [facility], [address] [place] [address] 38754 Platelet mean volume (Bld) [Entitic vol] 9.9 fL Normal 9.4-12.3 [facility] Comment on above: [...] no longer indicated. Testing performed at [facility], [address] [place] [address] 96019 Platelets (Bld) [#/Vol] 267 10*3/uL Normal 182-369 [facility] Comment on above: [...] is no longer indicated. Testing performed at [facility], [address] [place] [address] 13204 RBC (Bld) [#/Vol] 4.21 10*6/uL Normal 3.93-5.22 [facility] Comment on above: Order Comment: Immature [...] no longer indicated. Testing performed at [facility], [address] [place] [address] 18022 RDW-SD (B) 41.1 fL Normal 36.4-46.3 [facility] Comment on above: [...] no longer indicated. Testing performed at [facility], [address] [place] [address] 44373 WBC (Bld) [#/Vol] 22.9 10*3/uL High 4.0-10.0 [facility] Comment on above: Order Comment: Immature [...] no longer indicated. Testing performed at [facility], [address] [place] [address] NECK WITHOUT CONTRASTon 0 08-19-2022 CT [...] Salinas MD On: 08/19/2022 1:25 PM Normal [facility] EST Glomerular Filtration Ra jude 08-19-2022 EAGFR (B) >60 Normal >60 [facility] Comment on above: Order Comment: The c alculated GFR uses the (IDMS)-traceable creatinine MDRD equation and is reported in mL/min/1.73 square meters. This formula is not recommended for use with individuals with unstable creatinine concentrations, extremes in muscle mass and/or body size, or alternative diets and may not be suitable for all patient populations. Testing performed at [facility], [address] [place] [address] 45438 Result Comment: The reported eGFR is based on a non- patient, for Americans multiply the result by 1.212. HCG, Serumon 08-19-2022 HCGS Negative Normal [facility] Comment on above: Order Comment: Testi ng performed at [facility], [address] [place] [address] Result Comment: Note : This test provides only a presumptive diagnosis for . If the HCG result is inconsistent with clinical evidence, results should be confirmed with an alternative method, such as a quantitative HCG. Man Diffon 08-19-2022 Eos, Diff 2 % Normal 0-6 [facility] Comment on above: Order Comment: Testi ng performed at [facility], [facility] [place] [address] Lymphocytes/100 WBC (Bld) 3 % Low 20-53 [facility] Comment on above: Order Comment: Testi ng performed at [facility], [address] [place] [address] 99448 [place], Diff 6 % Normal 5-12 [facility] Comment on above: Order Comment: Testi ng performed at [facility], [address] [place] [address] 64848 Segs. Diff 89 % High 34-70 [facility] Comment on above: Order Comment: Testi ng performed at [facility], [address] [place] [address], [place] [address] Slide Scan Normal Normal Normal [facility] Comment on above: Order Comment: Testi ng performed at [facility], [facility] [place] [address] Basic Metabolic Profileon ANIO 12 mmol/L Normal 12-20 [facility] Comment on above: Order Comment: Testi ng performed at [facility], [facility] [place] [address] Calcium [Mass/Vol] 9.1 mg/dL Normal 8.4-10.2 [facility] Comment on above: Order Comment: Testi ng performed at [facility], [address] [place] [address] Chloride [Moles/Vol] 106 mmol/L Normal 98-107 [facility] Comment on above: Order Comment: Testi ng performed at [facility], [facility] [place] [address] CO2 [Moles/Vol] 27.0 mmol/L Normal 22.0-30.0 [facility] Comment on above: Order Comment: Testi ng performed [facility], [address] [place] [address] 38226 Creatinine [Mass/Vol] 0.6 mg/dL Normal 0.6-1.2 [facility] Comment on above: Order Comment: Testi ng performed at [facility], [address] [place] [address] 03020 Glucose [Mass/Vol] 95 mg/dL Normal 74-106 [facility] Comment on above: Order Comment: Testi ng performed at [facility], [address] [place] [address] 23274 Potassium [Moles/Vol] 4.1 mmol/L Normal 3.3-4.9 [facility] Comment on above: Order Comment: Testi ng performed at [facility], [address] [place] [address] 07249 Sodium [Moles/Vol] 141 mmol/L Normal 137-145 [facility] Comment on above: Order Comment: Testi ng performed at [facility], [address] [place] [address] 60274 Urea nitrogen [Mass/Vol] 9 mg/dL Normal 8-19 [facility] Comment on above: Order Comment: Testi ng performed at [facility], [address] [place] [address] 04599 CBC w/Auto Diffon 08-08-2022 Basophils (Bld) [#/Vol] 0.04 10*3/uL Normal 0.00-0.10 [facility] Comment on above: [...] is no longer indicated. Testing performed at [facility], [address] [place] [address] 80718 Basophils/100 WBC (Bld) 0.4 % Normal 0.1-1.2 [facility] Comment on above: [...] no longer indicated. Testing performed at [facility], [address] [place] [address] 68843 Eosinophils (Bld) [#/Vol] 0.21 10*3/uL Normal 0.00-0.40 [facility] Comment on above: [...] no longer indicated. Testing performed at [facility], [address] [place] [address] 55641 Eosinophils/100 WBC (Bld) 2.1 % Normal 0.7-5.8 [facility] Comment on above: [...] no longer indicated. Testing performed at [facility], [address] [place] [address] 40838 Erythrocyte distribution width (RBC) [Ratio] 12.9 % Normal 11.7-14.4 [facility] Comment on above: [...] is no longer indicated. Testing performed at [facility] [employer], [address] [place] [address] 46393 Hematocrit (Bld) [Volume fraction] 35.4 % Normal 34.1-44.9 [facility] Comment on above: [...] no longer indicated. Testing performed at [facility], [address] [place] [address] Hemoglobin (Bld) [Mass/Vol] 11.2 g/dL Normal 11.2-15.7 [facility] Comment on above: [...] no longer indicated. Testing performed at [facility], [address] [place], [place] [phone] IG % (B) 0.4 % Normal 0.0-0.4 [facility] Comment on above: [...] no longer indicated. Testing performed at [facility], [address] [place], [place] [phone] IG# (B) 0.04 10*3/uL High 0.00-0.00 [facility] Comment on above: [...] no longer indicated. Testing performed at [facility], [address] [place] [address] 45762 Lymphocytes (Bld) [#/Vol] 1.60 10*3/uL Normal 1.20-3.70 [facility] Comment on above: [...] no longer indicated. Testing performed at [facility], [address] [place] [address] 80574 Lymphocytes/100 WBC (Bld) 16.3 % Low 19.3-51.7 [facility] Comment on above: [...] is no longer indicated. Testing performed at [facility], [address] [place] [address] 79102 MCH (RBC) [Entitic mass] 27.7 pg Normal 25.6-32.2 [facility] Comment on above: [...] is no longer indicated. Testing performed at [facility], [address] [place] [address] 84664 MCHC (RBC) [Mass/Vol] 31.6 g/dL Low 32.2-35.5 [facility] Comment on above: [...] is no longer indicated. Testing performed at [facility], [address] [place] [address] 39368 MCV (RBC) [Entitic vol] 87.4 fL Normal 79.4-94.8 [facility] Comment on above: [...] no longer indicated. Testing performed at [facility], [address] [place] [address] 67497 Monocytes (Bld) [#/Vol] 0.88 10*3/uL Normal 0.20-0.90 [facility] Comment on above: [...] no longer indicated. Testing performed at [facility], [address] [place] [address] 03782 Monocytes/100 WBC (Bld) 8.9 % Normal 4.7-12.5 [facility] Comment on above: [...] is no longer indicated. Testing performed at [facility], [address] [place] [address] 35913 Neutrophils (Bld) [#/Vol] 7.07 10*3/uL High 1.60-6.10 [facility] Comment on above: [...] no longer indicated. Testing performed at [facility], [address] [place] [address] 93379 Neutrophils/100 WBC (Bld) 71.9 % High 34.0-71.1 [facility] Comment on above: [...] no longer indicated. Testing performed at [facility], [address] [place] [address] 85039 NRBC % (B) 0.0 /100{WBC} Normal 0.0-0.2 [facility] Comment on above: [...] no longer indicated. Testing performed at [facility], [address] [place] [address] 26378 NRBC# (B) 0.00 10*3/uL Normal 0.00-0.00 [facility] Comment on above: [...] no longer indicated. Testing performed at [facility], [address] [place] [address] 01700 Platelet mean volume (Bld) [Entitic vol] 9.2 fL Low 9.4-12.3 [facility] Comment on above: [...] no longer indicated. Testing performed at [facility], [address] [place] [address] 06647 Platelets (Bld) [#/Vol] 315 10*3/uL Normal 182-369 [facility] Comment on above: [...] no longer indicated. Testing performed at [facility], [address] [place] [address] 07514 RBC (Bld) [#/Vol] 4.05 10*6/uL Normal 3.93-5.22 [facility] Comment on above: Order Comment: Immature [...] no longer indicated. Testing performed at [facility], [address] [place] [address] 23467 RDW-SD (B) 41.0 fL Normal 36.4-46.3 [facility] Comment on above: [...] is no longer indicated. Testing performed at [facility], [address] [place] [address] 86742 WBC (Bld) [#/Vol] 9.8 10*3/uL Normal 4.0-10.0 [facility] Comment on above: Order Comment: [...] no longer indicated. Testing performed at [facility], [address] [place] [address] NECK WITHOUT CONTRASTon 0 08-08-2022 CT [...] Schultz MD On: 08/08/2022 4:07 PM Normal [facility] EST Glomerular Filtration Ra jude 08-08-2022 EAGFR (B) >60 Normal >60 [facility] Comment on above: Order Comment: The c alculated GFR uses the (IDMS)-traceable creatinine MDRD equation and is reported in mL/min/1.73 square meters. This formula is not recommended for use with individuals with unstable creatinine concentrations, extremes in muscle mass and/or body size, or alternative diets and may not be suitable for all patient populations. Testing performed at [facility], [address] [place] [address] Result Comment: The reported eGFR is based on a non- patient, for Americans multiply the result by 1.212. Pap IG, rfx Aptima HPV, rfx 16/18,45on 06-11-2022 . . Normal [facility] Comment on above: Result Comment: Perf ormed at: WB Performed By: #### P [id number] #### [facility] [address] [place] [address] Dr. [facility] DIAGNOSIS: Comment Normal [facility] Comment on above: Result Comment: NEGA TIVE FOR INTRAEPITHELIAL LESION OR MALIGNANCY. Performed at: WB Performed By: #### P APHR2A #### [facility] [address] [address] [address] Jose [facility] HPV Aptima Negative Normal Negative [facility] Comment on above: Result Comment: This nucleic acid amplification test detects fourteen high-risk HPV types (16,18,31,33,35,39,45,51,52,56,58,59,66,68) without differentiation. Performed at: =G Performed By: #### P [id number] #### [facility] [address] [address] [address] Jose [facility] HPV Genotype Reflex Comment Normal [facility] Comment on above: Result Comment: Crit erbarbie not met, HPV Genotype not performed. Performed at: WB Performed By: #### P [id number] #### [facility] [address] [address] [address] Jose [facility]as Strong Methodology: Comment Normal [facility] Comment on above: Result Comment: This liquid based ThinPrep(R) pap test was screened with the use of an image guided system. Performed at: WB Performed By: #### P APHR2A #### [facility] [address] [place] [address] Dr. Jose [facility]as Strong Note: Comment Normal [facility] Comment on above: Result Comment: The Pap smear is a screening test designed to aid in the detection of premalignant and malignant conditions of the uterine cervix. It is not a diagnostic procedure and should not be used as the sole means of detecting cervical cancer. Both false-positive and false-negative reports do occur. . Performed at: WB Performed By: #### P [id number] #### [facility] [address] [place] [address] Dr. Jose Elias Strong Performed by: Comment Normal [facility] Comment on above: Result Comment: Koffi Hutchinson, Confidential Secretary (ASCP) Performed at: WB Performed By: #### P [id number] #### [facility] [address] [place] [address] Dr. Jose [facility]as Strong Specimen adequacy: Comment Normal [facility] Comment on above: Result Comment: Sati sfactory for evaluation. Endocervical and/or squamous metaplastic cells (endocervical component) are present. Performed at: WB Performed By: #### P APHR2A #### [facility] [address] [place] [address] Dr. Jose Elias Strong PAP ACOG PANEL 2: 21 to 29on 11-20-2021 . . Normal [facility] Comment on above: Performed By: #### [id number] #### [facility] [address] [place] [address] Dr. Jose [facility]as Strong Age Gdln ACOG Testing 21-[address] [facility] Comment on above: Performed By: #### [id number] #### [facility] [address] [place] [address] Dr. Jose Elias Strong DIAGNOSIS: Comment [facility] Comment on above: Result Comment: NEGA TIVE FOR INTRAEPITHELIAL LESION OR MALIGNANCY. REACTIVE CELLULAR CHANGES AND/OR REPAIR ARE PRESENT. Performed By: #### [id number] #### [facility] [address] [place] [address] Dr. Jose Elias Strong Electronically signed by: Comment Normal [facility] Comment on above: Result Comment: Melinda Patel MD, Pathologist Performed By: #### [id number] #### [facility] [address] [place] [address] Dr. Jose Elias Strong Methodology: Comment [facility] Comment on above: Result Comment: This liquid based ThinPrep(R) pap test was screened with the use of an image guided system. Performed By: #### [id number] #### [facility] [address] [place] [address] Dr. Jose Elias Strong Note: Comment [facility] Comment on above: Result Comment: The Pap smear is a screening test designed to aid in the detection of premalignant and malignant conditions of the uterine cervix. It is not a diagnostic procedure and should not be used as the sole means of detecting cervical cancer. Both false-positive and false-negative reports do occur. . Performed By: #### [id number] #### [facility] [address] [place] [address] Dr. Jose Elias Strong Performed by: Comment Normal [facility] Comment on above: Result Comment: Lilian Romero Confidential Secretary (ASCP) Performed By: #### [id number] #### [facility] [address] [place] [address] Dr. Jose Elias Strong Reflex Criteria: Comment [facility] Comment on above: Result Comment: The HPV DNA reflex criteria were not met with this specimen result therefore, no HPV testing was performed. . Performed By: #### [id number] #### [facility] [address] [place] [address] Dr. Jose Elias Strong Specimen adequacy: Comment Normal [facility] Comment on above: Result Comment: Sati sfactory for evaluation. Endocervical and/or squamous metaplastic cells (endocervical component) are present. Performed By: #### [id number] #### [facility] [address] [place] [address] Dr. Jose Elias Strong CBC W MANUAL DIFFon 08-21-19 22 ANISOCYTOSIS 1+ Normal [facility] Comment on above: Performed By: #### T NS #### [facility] [address] [place] [address] Dr. Jose Elias Strong ATYPICAL LYMPH # Normal [facility] Comment on above: Performed By: #### T NS #### [facility] [address] [place] [address] Dr. Jose Elias Strong ATYPICAL LYMPH % Normal [facility] Comment on above: Performed By: #### T NS #### [facility] [address] [place] [address] Dr. Jose Elias Strong BAND # 0.2 103/ul Normal 0.0-0.[address] [facility] Comment on above: Performed By: #### T NS #### [facility] [address] [place] [address] Dr. Jose Elias Strong BAND % 1 % Normal 0-[address] [facility] Comment on above: Performed By: #### T NS #### [facility] [address] [place] [address] Dr. Jose Elias Strong BASOM # 0.00 103/ul Normal 0.00-0.[address] [facility] Comment on above: Performed By: #### T NS #### [facility] [address] [place] [address] Dr. Jose Elias Strong BASOM % 0.0 % Critically low 0.2-2.0 [facility] Comment on above: Performed By: #### T NS #### [facility] [address] [place] [address] Dr. Jose Elias Strong BLAST # Normal [facility] Comment on above: Performed By: #### T NS #### [facility] [address] [place] [address] Dr. Jose Elias Strong BLAST % Normal [facility] Comment on above: Performed By: #### T NS #### [facility] [address] [place] [address] Dr. Jose Elias Strong CORRECTED WBC Normal 4.0-11.0 [facility] Comment on above: Performed By: #### T NS #### [facility] [address] [place] [address] Dr. Jose Elias Strong EOS # 0.00 103/ul Normal 0.00-0.[address] [facility] Comment on above: Performed By: #### T NS #### [facility] [address] [place] [address] Dr. Jose Elias Strong EOS% 0.0 % Critically low 0.9-7.0 [facility] Comment on above: Performed By: #### T NS #### [facility] [address] [place] [address] Dr. Jose Elias Strong HCT 27.5 % Critically low 36.0-48.0 [facility] Comment on above: Performed By: #### T NS #### [facility] [address] [place] [address] Dr. Jose Elias Strong HGB 8.1 g/dl Critically low 12.0-16.0 [facility] Comment on above: Performed By: #### T NS #### [facility] [address] [place] [address] Dr. Jose Elias Strong LYMPHM # 1.62 103/ul Normal 1.20-3.[address] [facility] Comment on above: Performed By: #### T NS #### [facility] [address] [place] [address] Dr. Jose Elias Strong LYMPHM% 9.0 % Critically low 20.5-60.0 [facility] Comment on above: Performed By: #### T NS #### [facility] [address] [place] [address] Dr. Jose Elias Strong MCH 22.2 pg Critically low 26.7-34.0 [facility] Comment on above: Performed By: #### T NS #### [facility] [address] [address] [address] Jose Elias Strong MCHC 29.5 g/dl Critically low 29.9-35.2 [facility] Comment on above: Performed By: #### T NS #### [facility] [address] [address] [address] Jose Elias Strong MCV 75.3 fL Critically low 81.0-99.0 [facility] Comment on above: Performed By: #### T NS #### [facility] [address] [place] [address] Dr. Jose Elias Strong METAMYELOCYTE # Normal [facility] Comment on above: Performed By: #### T NS #### [facility] [address] [place] [address] Dr. Jose Elias Strong METAMYELOCYTE % Normal [facility] Comment on above: Performed By: #### T NS #### [facility] [address] [place] [address] Dr. Jose Elias Strong MONOM# 1.62 103/ul Critically high 0.30-0.80 [facility] Comment on above: Performed By: #### T NS #### [facility] [address] [place] [address] Dr. Jose Elias Strong MONOM% 9.0 % Normal 1.7-12.[address] [facility] Comment on above: Performed By: #### T NS #### [facility] [address] [place] [address] Dr. Jose Elias Strong MPV 9.6 fL Normal 9.5-13.[address] [facility] Comment on above: Performed By: #### T NS #### [facility] [address] [place] [address] Dr. Jose Elias Strong MYELOCYTE # Normal [facility] Comment on above: Performed By: #### T NS #### [facility] [address] [place] [address] Dr. Jose Elias Strong MYELOCYTE % Normal [facility] Comment on above: Performed By: #### T NS #### [facility] [address] [address] [address] Jose Elias Strong NRBC Normal [facility] Comment on above: Performed By: #### T NS #### [facility] [address] [address] [address] Jose Elias Strong PLT 308 103/ul Normal 150-[address] [facility] Comment on above: Performed By: #### T NS #### [facility] [address] [address] [address] Jose Elias Strong RBC 3.65 106/ul Critically low 4.20-5.40 [facility] Comment on above: Performed By: #### T NS #### [facility] [address] [address] [address] Jose Elias Strong RDW 15.7 % Critically high 11.0-15.0 [facility] Comment on above: Performed By: #### T NS #### [facility] [address] [address] [address] Jose Elias Strong SEG # 14.58 103/ul Critically high 1.40-6.50 [facility] Comment on above: Performed By: #### T NS #### [facility] [address] [address] [address] Jose Elias Strong SEG % 81.0 % Critically high 43.0-75.0 [facility] Comment on above: Performed By: #### T NS #### [facility] [address] [address] [address] Jose Elias Strong WBC 18.0 103/ul Critically high 4.0-11.0 [facility] Comment on above: Performed By: #### T NS #### [facility] [address] [address] [address] Jose Elias Strong DRUG SCREEN RAPID (URINE)on 08-20-2021 AMP Negative Normal NEGATIVE [facility] Comment on above: Performed By: #### T NS #### [facility] [address] [address] [address] Jose Elias Strong BAR Negative Normal NEGATIVE [facility] Comment on above: Performed By: #### T NS #### [facility] [address] [place] [address] Dr. Jose Elias Strong BUP Negative Normal NEGATIVE [facility] Comment on above: Performed By: #### T NS #### [facility] [address] [place] [address] Dr. Jose Elias Strong BZO Negative Normal NEGATIVE [facility] Comment on above: Performed By: #### T NS #### [facility] [address] [place] [address] Dr. Jose Elias Strong PAXTON Negative Normal NEGATIVE [facility] Comment on above: Performed By: #### T NS #### [facility] [address] [place] [address] Dr. Jose Elias Strong CUT-OFFS SEE BELOW Normal [facility] Comment on above: Result Comment: AMP (Amphetamine): 500ng/mL, BAR (Barbituates): 200 ng/mL, BZO (Benzodiazepines): 150 ng/mL, BUP (Buprenorphine): 10 ng/mL, PAXTON (Cocaine): 150 ng/mL, mAMP (Methamphetamine): 500 ng/mL, MTD (Methadone): 200 ng/mL, OPI (Opiates): 100 ng/mL, OXY (Oxycodone): 100 ng/mL, PCP (Phencyclidine): 25 ng/mL, PPX (Propoxyphene): 300 ng/mL, THC (Cannabinoids): 50 ng/mL, TCA (Trycyclic Antidepressants): 300 ng/mL Performed By: #### T NS #### [facility] [address] [place] [address] Dr. Jose Elias Strong DRUG CUT HEADER DRUG CLASS TEST SYSTEM CUT-OFF CONCENTRATIONS ARE FOLLOWS: Normal [facility] Comment on above: Performed By: #### T NS #### [facility] [address] [place] [address] Dr. Jose Elias Strong mAMP Negative Normal NEGATIVE [facility] Comment on above: Performed By: #### T NS #### [facility] [address] [place] [address] Dr. Jose Elias Strong MTD Negative Normal NEGATIVE [facility] Comment on above: Performed By: #### T NS #### [facility] [address] [place] [address] Dr. Jose Elias Strong OPI Negative Normal NEGATIVE [facility] Comment on above: Performed By: #### T NS #### [facility] [address] [place] [address] Dr. Jose Elias Strong OXY Negative Normal NEGATIVE [facility] Comment on above: Performed By: #### T NS #### [facility] [address] [place] [address] Dr. Jose Elias Strong PCP Negative Normal NEGATIVE [facility] Comment on above: Performed By: #### T NS #### [facility] [address] [place] [address] Dr. Jose Elias Strong PPX Negative Normal NEGATIVE [facility] Comment on above: Performed By: #### T NS #### [facility] [address] [place] [address] Dr. Jose Elias Strong TCA Negative Normal NEGATIVE [facility] Comment on above: Performed By: #### T NS #### [facility] [address] [place] [address] Dr. Jose Elias Strong THC Negative Normal NEGATIVE [facility] Comment on above: Performed By: #### T NS #### [facility] [address] [place] [address] Dr. Jose Elias Strong UA (CLEAN/CATCH) WAREHOUSE INCENTIVE SELECTOR/MICRO I F IND.on 08-20-2021 Bilirubin Ql (U) Negative Normal NEGATIVE [facility] Comment on above: Performed By: #### U MICRO, UACSIND #### [facility] [address] [place] [address] Dr. Jose Elias Strong Clarity (U) SL CLOUDY Abnormal CLEAR [facility] Comment on above: Performed By: #### U MICRO, UACSIND #### [facility] [address] [place] [address] Dr. Jose Elias Strong Color (U) RED Abnormal YELLOW [facility] Comment on above: Performed By: #### U MICRO, UACSIND #### [facility] [address] [place] [address] Dr. Jose Elias Strong Glucose Ql (U) Negative Normal NEGATIVE [facility] Comment on above: Performed By: #### U MICRO, UACSIND #### [facility] [address] [address] [address] Jose Elias Strong Hemoglobin Ql (U) LARGE Abnormal NEGATIVE [facility] Comment on above: Performed By: #### U MICRO, UACSIND #### [facility] [address] [address] [address] Jose Elias Strong Ketones Ql (U) 15 mg/dl Abnormal NEGATIVE [facility] Comment on above: Performed By: #### U MICRO, UACSIND #### [facility] [address] [address] [address] Jose Elias Strong LEUKOCYTES TRACE Abnormal NEGATIVE [facility] Comment on above: Performed By: #### U MICRO, UACSIND #### [facility] [address] [place] [address] Dr. Jose Elias Strong Nitrite Ql (U) Negative Normal NEGATIVE [facility] Comment on above: Performed By: #### U MICRO, UACSIND #### [facility] [address] [place] [address] Dr. Jose Elias Strong pH (U) 7.0 [pH] Normal 5-[address] [facility] Comment on above: Performed By: #### U MICRO, UACSIND #### [facility] [address] [address] [address] Jose Elias Strong SPEC GRAVITY 1.020 Normal 1.005-<=1.025 [facility] Comment on above: Performed By: #### U MICRO, UACSIND #### [facility] [address] [address] [address] Jose Elias Strong UA PROTEIN 30 mg/dl Abnormal NEGATIVE/ TRACE [facility] Comment on above: Performed By: #### U MICRO, UACSIND #### [facility] [address] [place] [address] Dr. Jose Elias Strong UR MICRO IND INDICATED Normal [facility] Comment on above: Performed By: #### U MICRO, UACSIND #### [facility] [address] [address] [address] Jose Elias Strong Urobilinogen Qn (U) 0.2 {Mago'U}/dL Normal 0.2 - 1. 0 [facility] Comment on above: Performed By: #### U MICRO, UACSIND #### [facility] [address] [address] [address] Jose Elias Strong URINE MICROSCOPIC ONLYon BACTERIA NONE SEEN Normal NONE SEEN [facility] Comment on above: Performed By: #### U MICRO, UACSIND #### [facility] [address] [address] [address] Jose Elias Strong Bacteria identified Cx Nom (U) NOT INDICATED Normal [facility] Comment on above: Performed By: #### U MICRO, UACSIND #### [facility] [address] [address] [address] Jose Elias Strong CAST NONE SEEN Normal NONE SEEN [facility] Comment on above: Performed By: #### U MICRO, UACSIND #### [facility] [address] [address] [address] Jose Elias Strong Crystals LM Nom (Urine sed) NONE SEEN Normal NONE SEEN [facility] Comment on above: Performed By: #### U MICRO, UACSIND #### [facility] [address] [address] [address] Jose Elias Strong Epithelial cells LM Ql (Urine sed) NONE SEEN Normal NONE SEEN /RARE [facility] Comment on above: Performed By: #### U MICRO, UACSIND #### [facility] [address] [address] [address] Jose Elias Strong MUCOUS NONE SEEN Normal NONE SEEN [facility] Comment on above: Performed By: #### U MICRO, UACSIND #### [facility] [address] [address] [address] Jose Elias Strong RBC (U) [#/Vol] /uL Abnormal 0-2 [facility] Comment on above: Performed By: #### U MICRO, UACSIND #### [facility] [address] [address] [address] Jose Elias Strong WBC 0-2 Abnormal NONE SEEN [facility] Comment on above: Performed By: #### U MICRO, UACSIND #### [facility] [address] [place] [address] Dr. Jose Elias Strong CBC AUTO DIFFon 08-19-2021 BASO # 0.0 103/ul Normal 0.0-0.[address] [facility] Comment on above: Performed By: #### T NS #### [facility] [address] [place] [address] Dr. Jose Elias Strong Basophils/100 WBC (Bld) 0.2 % Normal 0.2-2.[address] [facility] Comment on above: Performed By: #### T NS #### [facility] [address] [place] [address] Dr. Jose Elias Strong EO # 0.1 103/ul Normal 0.0-0.[address] [facility] Comment on above: Performed By: #### T NS #### [facility] [address] [place] [address] Dr. Jose Elias Strong Eosinophils/100 WBC (Bld) 0.7 % Critically low 0.9-7.[address] [facility] Comment on above: Performed By: #### T NS #### [facility] [address] [place] [address] Dr. Jose Elias Strong Erythrocyte distribution width (RBC) [Ratio] 15.9 % Critically high 11.0-15.[address] [facility] Comment on above: Performed By: #### T NS #### [facility] [address] [place] [address] Dr. Jose Elias Strong Hematocrit (Bld) [Volume fraction] 32.4 % Critically low 36.0-48.[address] [facility] Comment on above: Performed By: #### T NS #### [facility] [address] [place] [address] Dr. Jose Elias Strong Hemoglobin (Bld) [Mass/Vol] 9.7 g/dL Critically low 12.0-16.[address] [facility] Comment on above: Performed By: #### T NS #### [facility] [address] [place] [address] Dr. Jose Elias Strong IG # 0.19 10e3/ul Critically high 0.00-0.03 [facility] Comment on above: Performed By: #### T NS #### [facility] [address] [address] [address] Jose Elias Strong IG % 1.4 % Critically high 0.0-0.5 [facility] Comment on above: Performed By: #### T NS #### [facility] [address] [address] [address] Jose Elias Strong LYMPH # 1.9 103/ul Normal 1.2-3.[address] [facility] Comment on above: Performed By: #### T NS #### [facility] [address] [place] [address] Dr. Jose Elias Strong Lymphocytes/100 WBC (Bld) 14.4 % Critically low 20.5-60.[address] [facility] Comment on above: Performed By: #### T NS #### [facility] [address] [place] [address] Dr. Jose Elias Strong MANUAL DIFF REQ NO Normal [facility] Comment on above: Performed By: #### T NS #### [facility] [address] [place] [address] Dr. Jose Elias Strong MCH (RBC) [Entitic mass] 22.3 pg Critically low 26.7-34.[address] [facility] Comment on above: Performed By: #### T NS #### [facility] [address] [place] [address] Dr. Jose Elias Strong MCHC (RBC) [Mass/Vol] 29.9 g/dL Normal 29.9-35.[address] [facility] Comment on above: Performed By: #### T NS #### [facility] [address] [place] [address] Dr. Jose Elias Strong MCV (RBC) [Entitic vol] 74.5 fL Critically low 81.0-99.[address] [facility] Comment on above: Performed By: #### T NS #### [facility] [address] [place] [address] Dr. Jose Elias Strong MONO # 1.4 103/ul Critically high 0.3-0.8 [facility] Comment on above: Performed By: #### T NS #### [facility] [address] [place] [address] Dr. Jose Elias Strong Monocytes/100 WBC (Bld) 10.1 % Normal 1.7-12.[address] [facility] Comment on above: Performed By: #### T NS #### [facility] [address] [place] [address] Dr. Jose Elias Strong NEUT # 9.8 103/ul Critically high 1.4-6.5 [facility] Comment on above: Performed By: #### T NS #### [facility] [address] [place] [address] Dr. Jose Elias Strong Neutrophils/100 WBC (Bld) 73.2 % Normal 43.0-75.[address] [facility] Comment on above: Performed By: #### T NS #### [facility] [address] [place] [address] Dr. Jose Elias Strong Platelet mean volume (Bld) [Entitic vol] 10.0 fL Normal 9.5-13.[address] [facility] Comment on above: Performed By: #### T NS #### [facility] [address] [place] [address] Dr. Jose Elias Strong PLT 337 103/ul Normal 150-450 [facility] Comment on above: Performed By: #### T NS #### [facility] [address] [place] [address] Dr. Jose Elias Strong RBC 4.35 106/ul Normal 4.20-5.40 [facility] Comment on above: Performed By: #### T NS #### [facility] [address] [place] [address] Dr. Jose Elias Strong WBC 13.4 103/ul Critically high 4.0-11.0 [facility] Comment on above: Performed By: #### T NS #### [facility] [address] [place] [address] Dr. Jose Elias Strong Covid-19 PCR ([facility])on 08-03 SARS-CoV-2 (COVID-19) RNA [place]+probe Ql (Unsp spec) Not detected Normal NOT DETECTED [facility] Comment on above: Result Comment: When diagnostic [...] for this test is supported by the [place] of Health and Human Service's declaration that [...] used). Performed By: #### C VDTBH #### [facility] [address] [place] [address] Dr. Jose Elias Strong TYPE AND SCREENon 08-19-2021 TYPE AND SCREEN Negative Normal [facility] Comment on above: Performed By: #### T NS #### [facility] [address] [place] [address] Dr. Jose Elias Strong GROUP B STREP CULTUREon 07-05 S. agalactiae Ag Ql (Unsp spec) Culture Observations: NEGATIVE FOR GROUP B STREPTOCOCCUS. Normal [facility] Comment on above: Performed By: #### G BSCX #### [facility] [address] [place] [address] Dr. Jose Elias Strong UA (CLEAN/CATCH) WAREHOUSE INCENTIVE SELECTOR/MICRO I F IND.on 06-28-2021 Bilirubin Ql (U) Negative Normal NEGATIVE [facility] Comment on above: Performed By: #### U ACSIND UMICRO #### [facility] [address] [place] [address] Dr. Jose Elias Strong Clarity (U) CLEAR Normal CLEAR [facility] Comment on above: Performed By: #### U ACSIND, UMICRO #### [facility] [address] [address] [address] Jose Elias Strong Color (U) LT. YELLOW Normal YELLOW [facility] Comment on above: Performed By: #### U ACSIND, UMICRO #### [facility] [address] [address] [address] Jose Elias Strong Glucose Ql (U) Negative Normal NEGATIVE [facility] Comment on above: Performed By: #### U ACSIND, UMICRO #### [facility] [address] [address] [address] Jose Elias Strong Hemoglobin Ql (U) Negative Normal NEGATIVE [facility] Comment on above: Performed By: #### U ACSIND, UMICRO #### [facility] [address] [place] [address] Dr. Jose Elias Strong Ketones Ql (U) Negative Normal NEGATIVE [facility] Comment on above: Performed By: #### U ACSIND, UMICRO #### [facility] [address] [address] [address] Jose Elias Strong LEUKOCYTES TRACE Abnormal NEGATIVE [facility] Comment on above: Performed By: #### U ACSIND, UMICRO #### [facility] [address] [address] [address] Jose Elias Strong Nitrite Ql (U) Negative Normal NEGATIVE [facility] Comment on above: Performed By: #### U ACSIND, UMICRO #### [facility] [address] [address] [address] Jose Elias Strong pH (U) 6.5 [pH] Normal 5-[address] [facility] Comment on above: Performed By: #### U ACSIND, UMICRO #### [facility] [address] [address] [address] Jose Elias Strong SPEC GRAVITY 1.015 Normal 1.005-<=1.025 [facility] Comment on above: Performed By: #### U ACSIND, UMICRO #### [facility] [address] [address] [address] Jose Elias Strong UA PROTEIN Negative Normal NEGATIVE/ TRACE [facility] Comment on above: Performed By: #### U ACSIND, UMICRO #### [facility] [address] [address] [address] Jose Elias Strong UR MICRO IND INDICATED Normal [facility] Comment on above: Performed By: #### U ACSIND, UMICRO #### [facility] [address] [address] [address] Jose Elias Strong Urobilinogen Qn (U) 0.2 {Mago'U}/dL Normal 0.2 - 1. [address] [facility] Comment on above: Performed By: #### U ACSIND, UMICRO #### [facility] [address] [address] [address] Jose Elias Strong URINE MICROSCOPIC ONLYon AMORPHOUS CRYSTALS FEW Normal [facility] Comment on above: Performed By: #### U ACSIND, UMICRO #### [facility] [address] [place] [address] Dr. Jose Elias Strong BACTERIA TRACE Abnormal NONE SEEN [facility] Comment on above: Performed By: #### U ACSIND, UMICRO #### [facility] [address] [place] [address] Dr. Jose Elias Strong Bacteria identified Cx Nom (U) NOT INDICATED Normal [facility] Comment on above: Performed By: #### U ACSIND, UMICRO #### [facility] [address] [place] [address] Dr. Jose Elias Strong CAST NONE SEEN Normal NONE SEEN [facility] Comment on above: Performed By: #### U ACSIND, UMICRO #### [facility] [address] [place] [address] Dr. Jose Elias Strong Crystals LM Nom (Urine sed) SEEN Abnormal NONE SEEN [facility] Comment on above: Performed By: #### U ACSIND, UMICRO #### [facility] [address] [place] [address] Dr. Jose Elias Strong Epithelial cells LM Ql (Urine sed) RARE Normal NONE SEEN /RARE [facility] Comment on above: Performed By: #### U ACSIND, UMICRO #### [facility] [address] [place] [address] Dr. Jose Elias Strong MUCOUS TRACE Abnormal NONE SEEN [facility] Comment on above: Performed By: #### U LAURENT LEDYRO #### [facility] [address] [place] [address] Dr. Jose Elias Strong RBC 0-2 Normal 0-[address] [facility] Comment on above: Performed By: #### U BRODIE MANCILLARO #### [facility] [address] [place] [address] Dr. Jose Elias Strong WBC 2-5 Abnormal NONE SEEN [facility] Comment on above: Performed By: #### U [facility] #### [facility] [address] [place] [address] Dr. Jose Elias Strong CBC AUTO DIFFon 06-19-2021 BASO # 0.0 103/ul Normal 0.0-0.[address] [facility] Comment on above: Performed By: #### C BC #### [facility] [address] [place] [address] Dr. Jose Elias Strong Basophils/100 WBC (Bld) 0.3 % Normal 0.2-2.[address] [facility] Comment on above: Performed By: #### C BC #### [facility] [address] [place] [address] Dr. Jose Elias Strong EO # 0.2 103/ul Normal 0.0-0.[address] [facility] Comment on above: Performed By: #### C BC #### [facility] [address] [place] [address] Dr. Jose Elias Strong Eosinophils/100 WBC (Bld) 2.0 % Normal 0.9-7.[address] [facility] Comment on above: Performed By: #### C BC #### [facility] [address] [place] [address] Dr. Jose Elias Strong Erythrocyte distribution width (RBC) [Ratio] 13.6 % Normal 11.0-15.[address] [facility] Comment on above: Performed By: #### C BC #### [facility] [address] [place] [address] Dr. Jose Elias Strong Hematocrit (Bld) [Volume fraction] 29.4 % Critically low 36.0-48.[address] [facility] Comment on above: Performed By: #### C BC #### [facility] [address] [place] [address] Dr. Jose Elias Strong Hemoglobin (Bld) [Mass/Vol] 9.5 g/dL Critically low 12.0-16.0 [facility] Comment on above: Performed By: #### C BC #### [facility] [address] [place] [address] Dr. Jose Elias Strong IG # 0.14 10e3/ul Critically high 0.00-0.03 [facility] Comment on above: Performed By: #### C BC #### [facility] [address] [place] [address] Dr. Jose Elias Strong IG % 1.4 % Critically high 0.0-0.5 [facility] Comment on above: Performed By: #### C BC #### [facility] [address] [place] [address] Dr. Jose Elias Strong LYMPH # 1.6 103/ul Normal 1.2-3.[address] [facility] Comment on above: Performed By: #### C BC #### [facility] [address] [place] [address] Dr. Jose Elias Strong Lymphocytes/100 WBC (Bld) 15.5 % Critically low 20.5-60.0 [facility] Comment on above: Performed By: #### C BC #### [facility] [address] [place] [address] Dr. Jose Elias Strong MANUAL DIFF REQ NO Normal [facility] Comment on above: Performed By: #### C BC #### [facility] [address] [place] [address] Dr. Jose Elias Strong MCH (RBC) [Entitic mass] 26.8 pg Normal 26.7-34.[address] [facility] Comment on above: Performed By: #### C BC #### [facility] [address] [place] [address] Dr. Jose Elias Strong MCHC (RBC) [Mass/Vol] 32.3 g/dL Normal 29.9-35.[address] [facility] Comment on above: Performed By: #### C BC #### [facility] [address] [address] [address] Jose Elias Strong MCV (RBC) [Entitic vol] 82.8 fL Normal 81.0-99.[address] [facility] Comment on above: Performed By: #### C BC #### [facility] [address] [address] [address] Jose Elias Strong MONO # 1.2 103/ul Critically high 0.3-0.8 [facility] Comment on above: Performed By: #### C BC #### [facility] [address] [place] [address] Dr. Jose Elias Strong Monocytes/100 WBC (Bld) 12.2 % Critically high 1.7-12.[address] [facility] Comment on above: Performed By: #### C BC #### [facility] [address] [place] [address] Dr. Jose Elias Strong NEUT # 7.0 103/ul Critically high 1.4-6.5 [facility] Comment on above: Performed By: #### C BC #### [facility] [address] [place] [address] Dr. Jose Elias Strong Neutrophils/100 WBC (Bld) 68.6 % Normal 43.0-75.[address] [facility] Comment on above: Performed By: #### C BC #### [facility] [address] [address] [address] Jose Elias Strong Platelet mean volume (Bld) [Entitic vol] 9.1 fL Critically low 9.5-13.5 [facility] Comment on above: Performed By: #### C BC #### [facility] [address] [place] [address] Dr. Jose Elias Strong PLT 309 103/ul Normal 150-450 [facility] Comment on above: Performed By: #### C BC #### [facility] [address] [place] [address] Dr. Jose Elias Strong RBC 3.55 106/ul Critically low 4.20-5.40 [facility] Comment on above: Performed By: #### C BC #### [facility] [address] [address] [address] Jose Elias Strong WBC 10.1 103/ul Normal 4.0-11.[address] [facility] Comment on above: Performed By: #### C BC #### [facility] [address] [address] [address] Jose Elias Strong GLYCOHEMOGLOBIN A1Con 2021 ADA RECOMMENDATION ADA THERAPEUTIC TARGET 6.0 - 7.0 ACTION SUGGESTED > 7.[address] [facility] Comment on above: Performed By: #### T NS #### [facility] [address] [place] [address] Dr. Jose Elias Strong Glucose [Mass/Vol] 97 mg/dL Normal [facility] Comment on above: Performed By: #### T NS #### [facility] [address] [address] [address] Jose Elias Strong HbA1c (Bld) [Mass fraction] 5.0 % Normal <=6.[address] [facility] Comment on above: Performed By: #### T NS #### [facility] [address] [place] [address] Dr. Jose Elias Strong Consenton 10-24-2020 Consent [id number] .00CD:127 Normal [facility] In office Testingon 10-25-19 21 In office Testing [id number] 1.00CD:127 Normal [facility] Registrationon 10-24-2020 Registration [id number] .00CD:127 Normal [facility] Registration [id number] .00CD:127 Normal [facility] Encounters Encounter Date Encounter Type Care Provider Facility Start: 05-29-2023 End: 05-29-2023 ambulatory SHIVA CHAN Not Available Start: 04-23-2023 End: 04-23-2023 ambulatory MARY MARIE Not Available Start: 03-19-2023 End: 03-19-2023 ambulatory MARY MARIE Not Available Start: 12-10-2022 ambulatory [facility] Start: 11-19-2022 End: 11-19-2022 ambulatory Y[facility]IRA [facility] Start: 10-28-2022 End: 10-29-2022 ambulatory [facility] Start: 08-29-2022 ambulatory [facility]IRA [facility] Start: 08-19-2022 End: 08-19-2022 Emergency department patient visit YOMAIRA GUILLEN [facility] Start: 08-08-2022 End: 08-08-2022 Emergency department patient visit JERRY WALLS [facility] Start: 06-04-2022 End: 06-04-2022 ambulatory [...] MARIE Payers Date Payer Category Payer Medicaid [id number] 1995 Unknown [id number] 2.16.84 0.1.112050.3.579.2.593 1995 Unknown [id number] 2.16.84 0.1.442077.3.579.2.593 1995 Unknown [id number] 2.16.84 0.1.221807.3.579.2.593 1995 Unknown [id number] 2.16.84 0.1.136416.3.579.2.593 1995 Unknown [id number] 2.16.84 0.1.609531.3.579.2.593 1995 Unknown [id number] 2.16.84 0.1.983207.3.579.2.593 1995 Unknown [id number] 2.16.84 0.1.404300.3.579.2.593 1995 Unknown [id number] 2.16.84 0.1.900176.3.579.2.593 1995 Unknown [id number] 2.16.84 0.1.976836.3.579.2.1213 1995 Unknown [id number] 2.16.84 0.1.144498.3.579.2.1212 1995 Unknown [id number] 2.16.84 0.1.805999.3.579.2.1213 1995 Unknown [id number] 2.16.840 .1.935446.3.579.2.1212 1995 Unknown [id number] 2.16.840 .1.563425.3.579.2.1212 1995 Unknown [id number] 2.16.840 .1.393896.3.579.2.1212 1995 Unknown [id number] 2.16.84 0.1.388188.3.579.2.9 1995 Unknown [id number] 2.16.840 .1.033070.3.579.2.9 1995 Unknown [id number] 2.16.840. 1.259024.3.579.2.1259 1959 Unknown [id number] Summary Purpose Family History No Family History Records FoundNo Family History Records FoundNo Family History Records FoundNo Family History Records Found Advance Directives No Advanced Directives Records FoundNo Advanced Directives Records FoundNo Advanced Directives Records FoundNo Advanced Directives Records Found Additional Source Comments INFORMATION SOURCE (unrecogn ized section and content) DATE CREATED AUTHOR [facility] DATE CREATED AUTHOR AUTHOR'S ORGANIZ ATION 06/11/2022 [facility] DATE CREATED AUTHOR AUTHOR'S ORGANIZ ATION 12/16/2022 [facility] DATE CREATED AUTHOR AUTHOR'S ORGANIZ ATION 05/31/2023 [facility] FOR RECORDS PERTAINING TO PATIENTS [...] BE BASED ON THE PRIMARY CLINICAL RECORDS. [employer] provides no warranty or guarantee of the accuracy or completeness of information in this document.
[2023-06-13 21:07] VITALS: BP 114/64; PULSE 84
== END 2023-06-13 21:09 | disposition home or self-care (01) ==
LOC: FBCO 07:25 → FBC 20:08
PROVIDERS: PCP Family Medicine; Visit Provider Obstetrics & Gynecology
DX: O36.60X1 Maternal care for excessive fetal growth, unspecified trimester, fetus 1 (principal); N92.6 Irregular menstruation, unspecified
CPT/HCPCS: 59025

== ENCOUNTER 2023-06-17 07:05 | Outpatient (OUT) | payer OTHER, SELFPAY ==
--- NOTE | 2023-06-17 | US_ITS ---
[address] [address] Patient Name: KRISSY LOPEZ MRN: [id number] date: 1995 Sex: F Assigned Patient Location: US Current Patient Location: US Accession/Order Number: [id number] Exam Date: 06/17/2023 11:30 Report Date: 06/17/2023 12:30 At the request of: MARY MARIE Procedure: US OB BPP w non-stress EXAMINATION: US OB BPP w non-stress HISTORY: EXCESSIVE GROWTH COMPARISON: No relevant comparison available. TECHNIQUE: Ultrasound biophysical profile was performed in the radiology department. FINDINGS: BREATHING MOVEMENTS: 2.0 GROSS BODY MOVEMENTS: 2.0 TONE: 2.0 QUALITATIVE AMNIOTIC FLUID VOLUME: 2.0 PRESENTATION: TRANS RT HEART RATE: 148.4 bpm H.B./min AMNIOTIC FLUID VOLUME: 24.4 cm cm GESTATIONAL AGE: 33 weeks 1 days CONCLUSION: Total biophysical profile score: 8.0 Electronically authenticated by: HAMMAD FRAZIER Date: 06/17/2023 12:30
--- OUTSIDE RECORDS SUMMARY | 2023-06-17 07:16 | XMS_ITS | CCD ---
Author Name Unknown Address [address] [place] [address] Organization [facility] Care Team Providers Care Call Center Professional Name Role Phone VENKAT, DR HERNANDEZ Admitting Unavailable VENKAT, DR HERNANDEZ Attending Unavailable KARMA, DR LIZABETH Kauffman Primary Care Unavail able VENKAT, DR HERNANDEZ Admitting Unavailable VENKAT, DR HERNANDEZ Attending Unavailable KARMA, DR LIZABETH Kauffman Primary Care Unavail able VENKAT, DR HERNANDEZ Consulting Unavailable VENKAT, DR HERNANDEZ Admitting Unavailable VENKAT, DR HERNANDEZ Attending Unavailable KARMA, DR LIZABETH Kauffman Primary Care Unavail able VENKAT, DR HERNANDEZ Consulting Unavailable VENKAT, DR HERNANDEZ Admitting Unavailable VENKAT, DR HERNANDEZ Attending Unavailable KARMA, DR LIZABETH Kauffman Primary Care Unavail able VENKAT, DR HERNANDEZ Consulting Unavailable VENKAT, DR HERNANDEZ Admitting Unavailable VENKAT, DR HERNANDEZ Attending Unavailable KARMA, DR LIZABETH Kauffman Primary Care Unavail able VENKAT, DR HERNANDEZ Consulting Unavailable VENKAT, DR HERNANDEZ Admitting Unavailable VENKAT, DR HERNANDEZ Attending Unavailable KARMA, DR LIZABETH Kauffman Primary Care Unavail able VENKAT, DR HERNANDEZ Consulting Unavailable VENKAT, DR HERNANDEZ Procedure Practitioner Unavailab TIM Bull Admitting Unavailable TIM YADAV Attending Unavailable KARMA, DR LIZABETH Kauffman Primary Care Unavail able TIM YADAV Consulting Unavailable VENKAT, DR HERNANDEZ Admitting Unavailable VENKAT, DR HERNANDEZ Attending Unavailable KARMA, DR LIZABETH Kauffman Primary Care Unavail able ALEXANDER GREER Attending Unavaila ble NOSANOV, YOMAIRA GUILLEN Attending Unavailab le NOSANOV, YOMAIRA GUILLEN Admitting Unavailab le NOSANOV, YOMAIRA GUILLEN Attending Unavailab le NOSANOV, YOMAIRA GUILLEN Consulting Unavailab le ALZUHAILI, ANAS Attending Unavailable ALZUHAILI, ANAS Attending Unavailable VENKAT, MARY Attending Unavailable ROCIO, ERIKA Attending Unavailable VENKAT, MARY Attending Unavailable VENKAT, MARY Attending Unavailable Unavailable Primary Care Provider Unavailabl e Allergies Allergy Classification Reported Allergen(s) Allergy Type Date of Onset Reaction(s) Facility (2 sources) Latex; Translations: [LATEX] Drug allergy (disorder) 6 [facility]ository (2 sources) Leucine; Translations: [NICKEL] Drug Allergy 7 [facility] (2 sources) Penicillins; Translations: [PENICILLINS] Drug allergy (disorder) 7 [facility] (1 source) Shellfish Drug allergy (disorder) 7 [facility] (2 sources) Iodine; Translations: [IODINE] Drug Allergy 3 [facility] Repository (1 source) SHELLFISH CONTAINING PRODUCTS; Translations: [SHELLFISH CONTAINING PRODUCTS] Propensity to adverse reactions to drug (disorder) 3 [facility] Repository (1 source) VENOM-HONEY BEE; Translations: [VENOM-HONEY BEE] Propensity to adverse reactions to drug (disorder) 3 [facility] Repository (1 source) Amoxicillin Drug Allergy 3 Unknown [facility] (1 source) Bee pollen Allergy to substance 3 Unknown [facility] (1 source) Honey bee venom Propensity to adverse reactions 3 [facility] (1 source) Latex Allergy to substance 3 Unknown [facility] (1 source) nickel sulfate Drug Allergy 3 [facility] (1 source) Penicillin G Drug Allergy 3 Unknown [facility] (1 source) Shellfish-Derive d Products Drug Allergy 3 Unknown [facility] Medications Current Medications Medication Drug Class(es) Dates Sig (Normalized) Sig (Original) [id number] 200 actuat albuterol 0.09 mg/actuat metered dose inhaler (1 source) beta2-Adrenergic Agonist Start: 09-02-2022 take 2 puff(s) by mouth every four hours Ventolin HFA 108 (90 Base) MCG/ACT inhaler inhale 2 puffs by mouth and INTO THE LUNGS every 4 hours if needed 0 09/02/2022 Active citalopram 40 mg oral tablet (2 sources) Serotonin Reuptake Inhibitor Start: 03-07-2023 take 1 tablet by mouth in the morning citalopram (CeleXA) 40 MG tablet Take 40 mg by mouth in the morning. 0 03/07/2023 Active Start: 01-22-2023 End: 01-22-2024 take 1 tablet by mouth in the morning citalopram (CeleXA) 20 MG tablet Indications: Anxiety, generalized (CMS/HCC) Take 1 tablet (20 mg) by mouth in the morning. 30 tablet 11 01/22/2023 01/22/2024 Active 60 actuat fluticasone propionate 0.1 mg/actuat / salmeterol 0.05 mg/actuat dry powder inhaler (1 source) Corticosteroid, beta2-Adrenergic Agonist Start: 10-03-2022 take 1 puff(s) by mouth once daily Advair Diskus 100-50 MCG/ACT aerosol powder inhale 1 puff by mouth and INTO THE LUNGS once daily Rinse mouth after use 0 10/03/2022 Active levothyroxine sodium 0.025 mg oral tablet (1 source) l-Thyroxine Start: 02-06-2023 End: 02-06-2024 take 1 tablet by mouth before mealtime levothyroxine (Synthroid) 25 MCG tablet Indications: Hypothyroidism (acquired) (CMS/HCC) Take 1 tablet (25 mcg) by mouth in the morning. Take before meals. 30 tablet 11 02/06/2023 02/06/2024 Active multivitamin () 27-0.8 MG tablet (1 source) Start: 12-04-2022 take 1 tablet by mouth in the morning multivitamin () 27-0.8 MG tablet Take 1 tablet by mouth in the morning. 0 12/04/2022 Active Vit-Fe Fumarate-FA ( Plus/Iron) 27-1 MG tablet (1 source) Start: 12-04-2022 End: 12-04-2023 take 1 tablet by mouth in the morning Vit-Fe Fumarate-FA ( Plus/Iron) 27-1 MG tablet Indications: Missed menses Take 1 tablet by mouth in the morning. 30 tablet 0 12/04/2022 12/04/2023 Active Problems Active Problems Problem Classification Problem Date Documented Date Episodic/Chronic Acute and chronic tonsillitis (2 sources) Chronic tonsillitis; Translations: [Chronic tonsillitis] Onset: 08-29-2022 Chronic Asthma (1 source) Exacerbation of asthma; Translations: [Unspecified asthma, uncomplicated] Onset: 12-03-2022 12-03-2022 Chronic Mood disorders (1 source) Mood disorders; Translations: [DEPRESSION UNSPECIFIED] Onset: 08-30-2021 Other nervous system disorders (2 sources) Other acute postprocedural pain; Translations: [Other acute postprocedural pain] Onset: 11-19-2022 Episodic Other and delivery including normal (10 sources) Encounter for care and examination of lactating mother; Translations: [Encounter for routine follow-up] Onset: 08-27-2021 Episodic Residual codes; unclassified (2 sources) Acquired absence of other organs; Translations: [Acquired absence of other organs] Onset: 12-10-2022 Episodic Schizophrenia and other psychotic disorders (1 source) Schizoaffective disorder; Translations: [Schizoaffective disorder, unspecified] Onset: 12-03-2022 12-03-2022 Chronic Unclassified (1 source) CONTACT W/AND (SUSP) EXPOS [...] sexual mode of transmission complicating childbirth; Translations: [[facility] INF SEXL TRNSMS COMP CHILDBIRTH] Onset: 08-19-2021 Episodic Other complications of ; puerperium affecting management of mother (1 source) Other mental disorders complicating childbirth; Translations: [[facility] MENTAL D/O COMP CHILDBIRTH] Onset: 08-30-2021 Episodic Other complications of (4 sources) Other specified related conditions, third trimester; Translations: [[facility] SPEC PREG RELATED COND 3RD TRI] Onset: 06-28-2021 Episodic Other screening for suspected conditions (not mental disorders or infectious disease) (14 sources) Encounter for screening for malignant neoplasm of cervix; Translations: [Abnormal cytological findings in specimens from other female genital organs] Onset: 06-19-2021 Episodic Other skin disorders (2 sources) Localized swelling, mass and lump, neck; Translations: [Localized swelling, mass and lump, neck] Onset: 08-19-2022 Episodic Other skin disorders (1 source) Neck swelling; Translations: [Localized swelling, mass and lump, neck] Onset: 08-19-2022 12-03-2022 Episodic Residual codes; unclassified (1 source) 38 [...] Test Name Value Interpretation Reference Range Facility Urinalysis macro (dipstick) panel (U)on 06-12-2023 Bilirubin, UA Negative Negative - 4(70) +++ mg/dL [facility] Blood, UA Negative Negative - 50 Yovany/mcL [facility] Clarity, UA Clear [facility] Color, UA Yellow [facility] Glucose, UA Negative Negative - 2000(110) ++++ mg/dL [facility] Interpretation and review of laboratory results Abnormal [facility] Ketones, UA Negative Negative - 160(16) ++++ mg/dL [facility] Leukocytes, UA Positive Negative - 500+++ Jamey/mcL [facility] Nitrite, UA Negative Negative - Positive [facility] pH, UA 5.5 5 - 9 [facility] Protein, UA Positive Negative - 2000(20) ++++ mg/dL [facility] Spec Grav, UA 1.020 1 - 1.03 [facility] Urobilinogen, UA 1.0 0.2 - 12 mg/dL [facility] HCG, Urineon 11-19-2022 Beta HCG ( test) Ql (U) Negative Normal [facility] Comment on above: Order Comment: The c alculated GFR uses the (IDMS)-traceable creatinine MDRD equation and is reported in mL/min/1.73 square meters. This formula is not recommended for use with individuals with unstable creatinine concentrations, extremes in muscle mass and/or body size, or alternative diets and may not be suitable for all patient populations. Testing performed at [facility], [address] [place] [address] [id number] Result Comment: Note : This test provides only a presumptive diagnosis for . If the HCG result is inconsistent with clinical evidence, results should be confirmed with an alternative method, such as a quantitative HCG. Basic Metabolic Profileon ANIO 11 mmol/L Low 12-20 [facility] Comment on above: Order Comment: Testi ng performed at [facility], [address] [place] [address] 44777 Calcium [Mass/Vol] 9.5 mg/dL Normal 8.4-10.2 [facility] Comment on above: Order Comment: Testi ng performed at [facility], [address] [place] [address] 37512 Chloride [Moles/Vol] 107 mmol/L Normal 98-107 [facility] Comment on above: Order Comment: Testi ng performed at [facility], [address] [place] [address] 56694 CO2 [Moles/Vol] 23.0 mmol/L Normal 22.0-30.0 [facility] Comment on above: Order Comment: Testi ng performed at [facility], [address] [place] [address] 16218 Creatinine [Mass/Vol] 0.7 mg/dL Normal 0.6-1.2 [facility] Comment on above: Order Comment: Testi ng performed at [facility], [address] [place] [address] 39944 Glucose [Mass/Vol] 118 mg/dL High 74-106 [facility] Comment on above: Order Comment: Testi ng performed at [facility], [address] [place] [address] 22993 Potassium [Moles/Vol] 4.1 mmol/L Normal 3.3-4.9 [facility] Comment on above: Order Comment: Testi ng performed at [facility], [address] [place] [address] 53207 Sodium [Moles/Vol] 137 mmol/L Normal 137-145 [facility] Comment on above: Order Comment: Testi ng performed at [facility], [address] [place] [address] 08601 Urea nitrogen [Mass/Vol] 14 mg/dL Normal 8-19 [facility] Comment on above: Order Comment: Testi ng performed at [facility], [address] [place] [address] 70723 CBC w/Auto Diffon 08-19-2022 Basophils (Bld) [#/Vol] 0.04 10*3/uL Normal 0.00-0.10 [facility] Comment on above: Order Comment: [...] is no longer indicated. Testing performed at [facility], [address] [place] [address] 13620 Eosinophils (Bld) [#/Vol] 0.05 10*3/uL Normal 0.00-0.40 [facility] Comment on above: Order Comment: [...] is no longer indicated. Testing performed at [facility], [address] [place] [address] 24786 Erythrocyte distribution width (RBC) [Ratio] 13.3 % Normal 11.7-14.4 [facility] Comment on above: Order Comment: [...] is no longer indicated. Testing performed at [facility], [address] [place] [address] 19186 Hematocrit (Bld) [Volume fraction] 36.1 % Normal 34.1-44.9 [facility] Comment on above: Order Comment: [...] is no longer indicated. Testing performed at [facility], [address] [place] [address] 10080 Hemoglobin (Bld) [Mass/Vol] 12.0 g/dL Normal 11.2-15.7 [facility] Comment on above: Order Comment: [...] is no longer indicated. Testing performed at [facility], [address] [place] [address] 78449 IG % (B) 0.6 % High 0.0-0.4 [facility] Comment on above: Order Comment: [...] is no longer indicated. Testing performed at [facility], [address] [place] [address] 42352 IG# (B) 0.14 10*3/uL High 0.00-0.00 [facility] Comment on above: Order Comment: [...] is no longer indicated. Testing performed at [facility], [address] [place] [address] 49920 Lymphocytes (Bld) [#/Vol] 0.81 10*3/uL Low 1.20-3.70 [facility] Comment on above: Order Comment: [...] is no longer indicated. Testing performed at [facility], [address] [place] [address] 51285 MCH (RBC) [Entitic mass] 28.5 pg Normal 25.6-32.2 [facility] Comment on above: Order Comment: [...] is no longer indicated. Testing performed at [facility], [address] [place] [address] 88952 MCHC (RBC) [Mass/Vol] 33.2 g/dL Normal 32.2-35.5 [facility] Comment on above: Order Comment: [...] is no longer indicated. Testing performed at [facility], [address] [place] [address] 50467 MCV (RBC) [Entitic vol] 85.7 fL Normal 79.4-94.8 [facility] Comment on above: Order Comment: [...] is no longer indicated. Testing performed at [facility], [address] [place] [address] 91951 Monocytes (Bld) [#/Vol] 1.81 10*3/uL High 0.20-0.90 [facility] Comment on above: Order Comment: [...] is no longer indicated. Testing performed at [facility], [address] [place] [address] 73165 Neutrophils (Bld) [#/Vol] 20.04 10*3/uL High 1.60-6.10 [facility] Comment on above: Order Comment: [...] is no longer indicated. Testing performed at [facility], [address] [place] [address] 66595 NRBC % (B) 0.0 /100{WBC} Normal 0.0-0.2 [facility] Comment on above: Order Comment: [...] is no longer indicated. Testing performed at [facility], [address] [place] [address] 11328 NRBC# (B) 0.00 10*3/uL Normal 0.00-0.00 [facility] Comment on above: Order Comment: [...] is no longer indicated. Testing performed at [facility], [address] [place] [address] 22677 Platelet mean volume (Bld) [Entitic vol] 9.9 fL Normal 9.4-12.3 [facility] Comment on above: Order Comment: [...] is no longer indicated. Testing performed at [facility], [address] [place] [address] 00589 Platelets (Bld) [#/Vol] 267 10*3/uL Normal 182-369 [facility] Comment on above: Order Comment: [...] is no longer indicated. Testing performed at [facility], [address] [place] [address] 73643 RBC (Bld) [#/Vol] 4.21 10*6/uL Normal 3.93-5.22 [facility] Comment on above: Order Comment: [...] is no longer indicated. Testing performed at [facility], [address] [place] [address] 55991 RDW-SD (B) 41.1 fL Normal 36.4-46.3 [facility] Comment on above: Order Comment: [...] is no longer indicated. Testing performed at [facility], [address] [place] [address] 57178 WBC (Bld) [#/Vol] 22.9 10*3/uL High 4.0-10.0 [facility] Comment on above: Order Comment: [...] is no longer indicated. Testing performed at [facility], [address] [place] [address] NECK WITHOUT CONTRASTon 0 08-19-2022 CT NECK WITHOUT CONTRAST Patient Name: JOJO HACKETT Patient Patient : 1995 Examination: CT NECK [...] Salinas MD On: 08/19/2022 1:25 PM Normal [facility] EST Glomerular Filtration Ra jude 08-19-2022 EAGFR (B) >60 Normal >60 [facility] Comment on above: Order Comment: The c alculated GFR uses the (IDMS)-traceable creatinine MDRD equation and is reported in mL/min/1.73 square meters. This formula is not recommended for use with individuals with unstable creatinine concentrations, extremes in muscle mass and/or body size, or alternative diets and may not be suitable for all patient populations. Testing performed at [facility], [address] [place] [address] Result Comment: The reported eGFR is based on a non- patient, for Americans multiply the result by 1.212. HCG, Serumon 08-19-2022 HCGS Negative Normal [facility] Comment on above: Order Comment: Testi ng performed at [facility], [address] [place] [address] Result Comment: Note : This test provides only a presumptive diagnosis for . If the HCG result is inconsistent with clinical evidence, results should be confirmed with an alternative method, such as a quantitative HCG. Man Diffon 08-19-2022 Eos, Diff 2 % Normal 0-6 [facility] Comment on above: Order Comment: Testi ng performed at [facility], [place] [address] Lymphocytes/100 WBC (Bld) 3 % Low 20-53 [facility] Comment on above: Order Comment: Testi ng performed at [facility], [address] [place] [address] Hughes, Diff 6 % Normal 5-12 [facility] Comment on above: Order Comment: Testi ng performed at [facility], [address] [place] [address] Segs. Diff 89 % High 34-70 [facility] Comment on above: Order Comment: Testi ng performed at [facility], [address] [place] [address] Slide Scan Normal Normal Normal [facility] Comment on above: Order Comment: Testi ng performed at [facility], [address] [facility] [place] [place] [address] Basic Metabolic Profileon ANIO 12 mmol/L Normal 12-20 [facility] Comment on above: Order Comment: Testi ng performed at [facility], [address] [facility] [place] [address] Calcium [Mass/Vol] 9.1 mg/dL Normal 8.4-10.2 [facility] Comment on above: Order Comment: [facility], [address] [place] [address] Chloride [Moles/Vol] 106 mmol/L Normal 98-107 [facility] Comment on above: Order Comment: [facility], [address] [place] [address] CO2 [Moles/Vol] 27.0 mmol/L Normal 22.0-30.0 [facility] Comment on above: Order Comment: [facility], [address] [place] [address] Creatinine [Mass/Vol] 0.6 mg/dL Normal 0.6-1.2 [facility] Comment on above: Order Comment: Testi ng performed at [facility], [address] [place] [address] Glucose [Mass/Vol] 95 mg/dL Normal 74-106 [facility] Comment on above: Order Comment: [facility], [address] [place] [address] Potassium [Moles/Vol] 4.1 mmol/L Normal 3.3-4.9 [facility] Comment on above: Order Comment: Testi ng performed at [facility], [address] [place] [address] Sodium [Moles/Vol] 141 mmol/L Normal 137-145 [facility] Comment on above: Order Comment: Testi ng performed at [facility], [address] [place] [address] Urea nitrogen [Mass/Vol] 9 mg/dL Normal 8-19 [facility] Comment on above: Order Comment: Testi ng performed at [facility], [address] [place] [address] CBC w/Auto Diffon 08-08-2022 Basophils (Bld) [#/Vol] 0.04 10*3/uL Normal 0.00-0.10 [facility] Comment on above: Order Comment: [...] is no longer indicated. Testing performed at [facility], [address] [place] [address] 63083 Basophils/100 WBC (Bld) 0.4 % Normal 0.1-1.2 [facility] Comment on above: Order Comment: [...] is no longer indicated. Testing performed at [facility], [address] [place] [address] 24291 Eosinophils (Bld) [#/Vol] 0.21 10*3/uL Normal 0.00-0.40 [facility] Comment on above: Order Comment: [...] is no longer indicated. Testing performed at [facility], [address] [place] [address] 30239 Eosinophils/100 WBC (Bld) 2.1 % Normal 0.7-5.8 [facility] Comment on above: Order Comment: [...] is no longer indicated. Testing performed at [facility], [address] [place] [address] 62630 Erythrocyte distribution width (RBC) [Ratio] 12.9 % Normal 11.7-14.4 [facility] Comment on above: Order Comment: [...] is no longer indicated. Testing performed at [facility], [address] [place] [address] 20219 Hematocrit (Bld) [Volume fraction] 35.4 % Normal 34.1-44.9 [facility] Comment on above: Order Comment: [...] is no longer indicated. Testing performed at [facility], [address] [place] [address] 52805 Hemoglobin (Bld) [Mass/Vol] 11.2 g/dL Normal 11.2-15.7 [facility] Comment on above: Order Comment: [...] is no longer indicated. Testing performed at [facility], [address] [place] [address] 26496 IG % (B) 0.4 % Normal 0.0-0.4 [facility] Comment on above: Order Comment: [...] is no longer indicated. Testing performed at [facility], [address] [place] [address] 79659 IG# (B) 0.04 10*3/uL High 0.00-0.00 [facility] Comment on above: Order Comment: [...] is no longer indicated. Testing performed at [facility], [address] [place] [address] 66365 Lymphocytes (Bld) [#/Vol] 1.60 10*3/uL Normal 1.20-3.70 [facility] Comment on above: Order Comment: [...] is no longer indicated. Testing performed at [facility], [address] [place] [address] 77970 Lymphocytes/100 WBC (Bld) 16.3 % Low 19.3-51.7 [facility] Comment on above: Order Comment: [...] is no longer indicated. Testing performed at [facility], [address] [place] [address] 42611 MCH (RBC) [Entitic mass] 27.7 pg Normal 25.6-32.2 [facility] Comment on above: Order Comment: [...] is no longer indicated. Testing performed at [facility], [address] [place] [address] 41804 MCHC (RBC) [Mass/Vol] 31.6 g/dL Low 32.2-35.5 [facility] Comment on above: Order Comment: [...] is no longer indicated. Testing performed at [facility], [address] [place] [address] [id number] MCV (RBC) [Entitic vol] 87.4 fL Normal 79.4-94.8 [facility] Comment on above: Order Comment: [...] is no longer indicated. Testing performed at [facility], [address] [place] [address] 37669 Monocytes (Bld) [#/Vol] 0.88 10*3/uL Normal 0.20-0.90 [facility] Comment on above: Order Comment: [...] is no longer indicated. Testing performed at [address] [address] Monocytes/100 WBC (Bld) 8.9 % Normal 4.7-12.5 [facility] Comment on above: Order Comment: [...] is no longer indicated. Testing performed at [facility], [address] [place] [address] 91259 Neutrophils (Bld) [#/Vol] 7.07 10*3/uL High 1.60-6.10 [facility] Comment on above: Order Comment: [...] is no longer indicated. Testing performed at [facility], [address] [place] [address] 76735 Neutrophils/100 WBC (Bld) 71.9 % High 34.0-71.1 [facility] Comment on above: Order Comment: [...] is no longer indicated. Testing performed at [facility], [address] [place] [address] 41815 NRBC % (B) 0.0 /100{WBC} Normal 0.0-0.2 [facility] Comment on above: Order Comment: [...] is no longer indicated. Testing performed at [facility], [address] [place] [address] 85948 NRBC# (B) 0.00 10*3/uL Normal 0.00-0.00 [facility] Comment on above: Order Comment: [...] is no longer indicated. Testing performed at [facility], [address] [place] [address] 83312 Platelet mean volume (Bld) [Entitic vol] 9.2 fL Low 9.4-12.3 [facility] Comment on above: Order Comment: [...] is no longer indicated. Testing performed at [facility], [address] [place] [address] 73839 Platelets (Bld) [#/Vol] 315 10*3/uL Normal 182-369 [facility] Comment on above: Order Comment: [...] is no longer indicated. Testing performed at [facility], [address] [place] [address] 40148 RBC (Bld) [#/Vol] 4.05 10*6/uL Normal 3.93-5.22 [facility] Comment on above: Order Comment: [...] is no longer indicated. Testing performed at [facility], [address] [place] [address] 83863 RDW-SD (B) 41.0 fL Normal 36.4-46.3 [facility] Comment on above: Order Comment: [...] is no longer indicated. Testing performed at [facility], [address] [place] [address] 34496 WBC (Bld) [#/Vol] 9.8 10*3/uL Normal 4.0-10.0 [facility] Comment on above: Order Comment: Immature [...] is no longer indicated. Testing performed at [facility], [address] [place] [address] NECK WITHOUT CONTRASTon 0 08-08-2022 CT NECK WITHOUT CONTRAST Patient Name: JOJO HACKETT Patient Patient : 1995 Examination: CT NECK [...] Schultz MD On: 08/08/2022 4:07 PM Normal [facility] EST Glomerular Filtration Ra jude 08-08-2022 EAGFR (B) >60 Normal >60 [facility] Comment on above: Order Comment: The c alculated GFR uses the (IDMS)-traceable creatinine MDRD equation and is reported in mL/min/1.73 square meters. This formula is not recommended for use with individuals with unstable creatinine concentrations, extremes in muscle mass and/or body size, or alternative diets and may not be suitable for all patient populations. Testing performed at [facility], [address] [place] [address] 0[address] Result Comment: The reported eGFR is based on a non- patient, for Americans multiply the result by 1.212. Pap IG, rfx Aptima HPV, rfx 16/18,45on 06-11-2022 . . Normal [facility] Comment on above: Result Comment: Perf ormed at: WB Performed By: #### P APHR2A #### [facility] [address] [address] [address] Jose Elias Strong DIAGNOSIS: Comment Normal [facility] Comment on above: Result Comment: NEGA TIVE FOR INTRAEPITHELIAL LESION OR MALIGNANCY. Performed at: WB Performed By: #### P APHR2A #### [facility] [address] [address] [address] Jose Elias Strong HPV Aptima Negative Normal Negative [facility] Comment on above: Result Comment: This nucleic acid amplification test detects fourteen high-risk HPV types (16,18,31,33,35,39,45,51,52,56,58,59,66,68) without differentiation. Performed at: =G Performed By: #### P APHR2A #### [facility] [address] [address] [address] Jose Elias Strong HPV Genotype Reflex Comment Normal [facility] Comment on above: Result Comment: Crit eria not met, HPV Genotype not performed. Performed at: WB Performed By: #### P APHR2A #### [facility] [address] [address] [address] Jose Elias Strong Methodology: Comment Normal [facility] Comment on above: Result Comment: This liquid based ThinPrep(R) pap test was screened with the use of an image guided system. Performed at: WB Performed By: #### P APHR2A #### [facility] [address] [address] [address] Jose Elias Strong Note: Comment Normal [facility] Comment on above: Result Comment: [...] WB Performed By: #### P APHR2A #### [facility] [address] [address] [address] Jose Elias Strong Performed by: Comment Normal [facility] Comment on above: Result Comment: Koffi Hutchinson, Lawn Sprinkler Servicer (ASCP) Performed at: WB Performed By: #### P APHR2A #### [facility] [address] [address] [address] Jose Elias Strong Specimen adequacy: Comment Normal [facility] Comment on above: Result Comment: Sati sfactory for evaluation. Endocervical and/or squamous metaplastic cells (endocervical component) are present. Performed at: WB Performed By: #### P APHR2A #### [facility] [address] [place] [address] Dr. Jose Elias Strong PAP ACOG PANEL 2: 21 to 29on 11-20-2021 . . Normal [facility] Comment on above: Performed By: #### [id number] #### [facility] [address] [place] [address] Dr. Jose Elias Strong Age Gdln ACOG Testing - Normal [facility] Comment on above: Performed By: #### [id number] #### [facility] [address] [place] [address] Dr. Jose Elias Strong DIAGNOSIS: Comment [facility] Comment on above: Result Comment: NEGA TIVE FOR INTRAEPITHELIAL LESION OR MALIGNANCY. REACTIVE CELLULAR CHANGES AND/OR REPAIR ARE PRESENT. Performed By: #### [id number] #### [facility] [address] [place] [address] Dr. Jose Elias Strong Electronically signed by: Comment Normal [facility] Comment on above: Result Comment: Melinda Patel MD, Pathologist Performed By: #### [id number] #### [facility] [address] [place] [address] Dr. Jose Elias Strong Methodology: Comment [facility] Comment on above: Result Comment: This liquid based ThinPrep(R) pap test was screened with the use of an image guided system. Performed By: #### [id number] #### [facility] [address] [place] [address] Dr. Jose Elias Strong Note: Comment [facility] Comment on above: Result Comment: The Pap smear is a screening test designed to aid in the detection of premalignant and malignant conditions of the uterine cervix. It is not a diagnostic procedure and should not be used as the sole means of detecting cervical cancer. Both false-positive and false-negative reports do occur. . Performed By: #### [id number] #### [facility] [address] [place] [address] Dr. Jose Elias Strong Performed by: Comment Normal [facility] Comment on above: Result Comment: Bruc e Den Romero, Lawn Sprinkler Servicer (ASCP) Performed By: #### [id number] #### [facility] [address] [place] [address] Dr. Jose Elias Strong Reflex Criteria: Comment Normal [facility] Comment on above: Result Comment: The HPV DNA reflex criteria were not met with this specimen result therefore, no HPV testing was performed. . Performed By: #### [id number] #### [facility] [address] [place] [address] Dr. Jose Elias Strong Specimen adequacy: Comment Normal [facility] Comment on above: Result Comment: Sati sfactory for evaluation. Endocervical and/or squamous metaplastic cells (endocervical component) are present. Performed By: #### [id number] #### [facility] [address] [place] [address] Dr. Jose Elias Strong CBC W MANUAL DIFFon 08-21-19 22 ANISOCYTOSIS 1+ Normal [facility] Comment on above: Performed By: #### T NS #### [facility] [address] [place] [address] Dr. Jose Elias Strong ATYPICAL LYMPH # Normal [facility] Comment on above: Performed By: #### T NS #### [facility] [address] [place] [address] Dr. Jose Elias Strong ATYPICAL LYMPH % Normal [facility] Comment on above: Performed By: #### T NS #### [facility] [address] [place] [address] Dr. Jose Elias Strong BAND # 0.2 103/ul Normal 0.0-0.3 [facility] Comment on above: Performed By: #### T NS #### [facility] [address] [place] [address] Dr. Jose Elias Strong BAND % 1 % Normal 0-5 [facility] Comment on above: Performed By: #### T NS #### [facility] [address] [place] [address] Dr. Jose Elias Strong BASOM # 0.00 103/ul Normal 0.00-0.10 [facility] Comment on above: Performed By: #### T NS #### [facility] [address] [address] [address] Jose Elias Strong BASOM % 0.0 % Critically low 0.2-2.0 [facility] Comment on above: Performed By: #### T NS #### [facility] [address] [address] [address] Jose Elias Strong BLAST # Normal [facility] Comment on above: Performed By: #### T NS #### [facility] [address] [address] [address] Jose Elias Strong BLAST % Normal [facility] Comment on above: Performed By: #### T NS #### [facility] [address] [address] [address] Jose Elias Strong CORRECTED WBC Normal 4.0-11.0 [facility] Comment on above: Performed By: #### T NS #### [facility] [address] [place] [address] Dr. Jose Elias Strong EOS # 0.00 103/ul Normal 0.00-0.70 [facility] Comment on above: Performed By: #### T NS #### [facility] [address] [address] [address] Jose Elias Strong EOS% 0.0 % Critically low 0.9-7.0 [facility] Comment on above: Performed By: #### T NS #### [facility] [address] [place] [address] Dr. Jose Elias Strong HCT 27.5 % Critically low 36.0-48.0 [facility] Comment on above: Performed By: #### T NS #### [facility] [address] [place] [address] Dr. Jose Elias Strong HGB 8.1 g/dl Critically low 12.0-16.0 [facility] Comment on above: Performed By: #### T NS #### [facility] [address] [place] [address] Dr. Jose Elias Strong LYMPHM # 1.62 103/ul Normal 1.20-3.80 [facility] Comment on above: Performed By: #### T NS #### [facility] [address] [address] [address] Jose Elias Strong LYMPHM% 9.0 % Critically low 20.5-60.0 [facility] Comment on above: Performed By: #### T NS #### [facility] [address] [place] [address] Dr. Jose Elias Strong MCH 22.2 pg Critically low 26.7-34.0 [facility] Comment on above: Performed By: #### T NS #### [facility] [address] [place] [address] Dr. Jose Elias Strong MCHC 29.5 g/dl Critically low 29.9-35.2 [facility] Comment on above: Performed By: #### T NS #### [facility] [address] [place] [address] Dr. Jose Elias Strong MCV 75.3 fL Critically low 81.0-99.0 [facility] Comment on above: Performed By: #### T NS #### [facility] [address] [place] [address] Dr. Jose Elias Strong METAMYELOCYTE # Normal [facility] Comment on above: Performed By: #### T NS #### [facility] [address] [place] [address] Dr. Jose Elias Strong METAMYELOCYTE % Normal [facility] Comment on above: Performed By: #### T NS #### [facility] [address] [place] [address] Dr. Jose Elias Strong MONOM# 1.62 103/ul Critically high 0.30-0.80 [facility] Comment on above: Performed By: #### T NS #### [facility] [address] [place] [address] Dr. Jose Elias Strong MONOM% 9.0 % Normal 1.7-12.0 [facility] Comment on above: Performed By: #### T NS #### [facility] [address] [place] [address] Dr. Jose Elias Strong MPV 9.6 fL Normal 9.5-13.5 [facility] Comment on above: Performed By: #### T NS #### [facility] [address] [address] [address] Jose Elias Strong MYELOCYTE # Normal [facility] Comment on above: Performed By: #### T NS #### [facility] [address] [address] [address] Jose Elias Strong MYELOCYTE % Normal [facility] Comment on above: Performed By: #### T NS #### [facility] [address] [address] [address] Jose Elias Strong NRBC Normal [facility] Comment on above: Performed By: #### T NS #### [facility] [address] [address] [address] Jose Elias Strong PLT 308 103/ul Normal 150-450 [facility] Comment on above: Performed By: #### T NS #### [facility] [address] [address] [address] Jose Elias Strong RBC 3.65 106/ul Critically low 4.20-5.40 [facility] Comment on above: Performed By: #### T NS #### [facility] [address] [address] [address] Jose Elias Strong RDW 15.7 % Critically high 11.0-15.0 [facility] Comment on above: Performed By: #### T NS #### [facility] [address] [address] [address] Jose Elias Strong SEG # 14.58 103/ul Critically high 1.40-6.50 [facility] Comment on above: Performed By: #### T NS #### [facility] [address] [address] [address] Jose Elias Strong SEG % 81.0 % Critically high 43.0-75.0 [facility] Comment on above: Performed By: #### T NS #### [facility] [address] [address] [address] Jose Elias Strong WBC 18.0 103/ul Critically high 4.0-11.0 [facility] Comment on above: Performed By: #### T NS #### [facility] [address] [address] [address] Jose Elias Strong DRUG SCREEN RAPID (URINE)on 08-20-2021 AMP Negative Normal NEGATIVE [facility] Comment on above: Performed By: #### T NS #### [facility] [address] [address] [address] Jose Elias Strong BAR Negative Normal NEGATIVE [facility] Comment on above: Performed By: #### T NS #### [facility] [address] [address] [address] Jose Elias Strong BUP Negative Normal NEGATIVE [facility] Comment on above: Performed By: #### T NS #### [facility] [address] [place] [address] Dr. Jose Elias Strong BZO Negative Normal NEGATIVE [facility] Comment on above: Performed By: #### T NS #### [facility] [address] [place] [address] Dr. Jose Elias Strong PAXTON Negative Normal NEGATIVE [facility] Comment on above: Performed By: #### T NS #### [facility] [address] [place] [address] Dr. Jose Elias Strong CUT-OFFS SEE BELOW Normal [facility] Comment on above: Result Comment: [...] ng/mL Performed By: #### T NS #### [facility] [address] [place] [address] Dr. Jose Elias Strong DRUG CUT HEADER DRUG CLASS TEST SYSTEM CUT-OFF CONCENTRATIONS ARE FOLLOWS: Normal [facility] Comment on above: Performed By: #### T NS #### [facility] [address] [place] [address] Dr. Jose Elias Strong mAMP Negative Normal NEGATIVE [facility] Comment on above: Performed By: #### T NS #### [facility] [address] [place] [address] Dr. Jose Elias Strong MTD Negative Normal NEGATIVE [facility] Comment on above: Performed By: #### T NS #### [facility] [address] [place] [address] Dr. Jose Elias Strong OPI Negative Normal NEGATIVE [facility] Comment on above: Performed By: #### T NS #### [facility] [address] [place] [address] Dr. Jose Elias Strong OXY Negative Normal NEGATIVE [facility] Comment on above: Performed By: #### T NS #### [facility] [address] [place] [address] Dr. Jose Elias Strong PCP Negative Normal NEGATIVE [facility] Comment on above: Performed By: #### T NS #### [facility] [address] [place] [address] Dr. Jose Elias Strong PPX Negative Normal NEGATIVE [facility] Comment on above: Performed By: #### T NS #### [facility] [address] [place] [address] Dr. Jose Elias Strong TCA Negative Normal NEGATIVE [facility] Comment on above: Performed By: #### T NS #### [facility] [address] [place] [address] Dr. Jose Elias Strong THC Negative Normal NEGATIVE [facility] Comment on above: Performed By: #### T NS #### [facility] [address] [place] [address] Dr. Jose Elias Strong UA (CLEAN/CATCH) IT ADMINISTRATIVE ASSISTANT/MICRO I F IND.on 08-20-2021 Bilirubin Ql (U) Negative Normal NEGATIVE [facility] Comment on above: Performed By: #### U MICRO, UACSIND #### [facility] [address] [place] [address] Dr. Jose Elias Strong Clarity (U) SL CLOUDY Abnormal CLEAR [facility] Comment on above: Performed By: #### U MICRO, UACSIND #### [facility] [address] [address] [address] Jose Elias Strong Color (U) RED Abnormal YELLOW [facility] Comment on above: Performed By: #### U MICRO, UACSIND #### [facility] [address] [address] [address] Jose Elias Strong Glucose Ql (U) Negative Normal NEGATIVE [facility] Comment on above: Performed By: #### U MICRO, UACSIND #### [facility] [address] [address] [address] Jose Elias Strong Hemoglobin Ql (U) LARGE Abnormal NEGATIVE [facility] Comment on above: Performed By: #### U MICRO, UACSIND #### [facility] [address] [address] [address] Jose Elias Strong Ketones Ql (U) 15 mg/dl Abnormal NEGATIVE [facility] Comment on above: Performed By: #### U MICRO, UACSIND #### [facility] [address] [address] [address] Jose Elias Strong LEUKOCYTES TRACE Abnormal NEGATIVE [facility] Comment on above: Performed By: #### U MICRO, UACSIND #### [facility] [address] [address] [address] Jose Elias Strong Nitrite Ql (U) Negative Normal NEGATIVE [facility] Comment on above: Performed By: #### U MICRO, UACSIND #### [facility] [address] [address] [address] Jose Elias Strong pH (U) 7.0 [pH] Normal 5-9 [facility] Comment on above: Performed By: #### U MICRO, UACSIND #### [facility] [address] [address] [address] Jose Elias Strong SPEC GRAVITY 1.020 Normal 1.005-<=1.025 [facility] Comment on above: Performed By: #### U MICRO, UACSIND #### [facility] [address] [address] [address] Jose Elias Strong UA PROTEIN 30 mg/dl Abnormal NEGATIVE/ TRACE [facility] Comment on above: Performed By: #### U MICRO, UACSIND #### [facility] [address] [place] [address] Dr. Jose Elias Strong UR MICRO IND INDICATED Normal [facility] Comment on above: Performed By: #### U MICRO, UACSIND #### [facility] [address] [place] [address] Dr. Jose Elias Strong Urobilinogen Qn (U) 0.2 {Mago'U}/dL Normal 0.2 - 1. 0 [facility] Comment on above: Performed By: #### U MICRO, UACSIND #### [facility] [address] [place] [address] Dr. Jose Elias Strong URINE MICROSCOPIC ONLYon BACTERIA NONE SEEN Normal NONE SEEN [facility] Comment on above: Performed By: #### U MICRO, UACSIND #### [facility] [address] [place] [address] Dr. Jose Elias Strong Bacteria identified Cx Nom (U) NOT INDICATED Normal [facility] Comment on above: Performed By: #### U MICRO, UACSIND #### [facility] [address] [place] [address] Dr. Jose Elias Strong CAST NONE SEEN Normal NONE SEEN [facility] Comment on above: Performed By: #### U MICRO, UACSIND #### [facility] [address] [place] [address] Dr. Jose Elias Strong Crystals LM Nom (Urine sed) NONE SEEN Normal NONE SEEN [facility] Comment on above: Performed By: #### U MICRO, UACSIND #### [facility] [address] [place] [address] Dr. Jose Elias Strong Epithelial cells LM Ql (Urine sed) NONE SEEN Normal NONE SEEN /RARE [facility] Comment on above: Performed By: #### U MICRO, UACSIND #### [facility] [address] [place] [address] Dr. Jose Elias Strong MUCOUS NONE SEEN Normal NONE SEEN [facility] Comment on above: Performed By: #### U MICRO, UACSIND #### [facility] [address] [address] [address] Jose Elias Strong RBC (U) [#/Vol] /uL Abnormal 0-2 [facility] Comment on above: Performed By: #### U MICRO, UACSIND #### [facility] [address] [address] [address] Jose Elias Strong WBC 0-2 Abnormal NONE SEEN [facility] Comment on above: Performed By: #### U MICRO, UACSIND #### [facility] [address] [address] [address] Jose Elias Strong CBC AUTO DIFFon 08-19-2021 BASO # 0.0 103/ul Normal 0.0-0.1 [facility] Comment on above: Performed By: #### T NS #### [facility] [address] [address] [address] Jose Elias Strong Basophils/100 WBC (Bld) 0.2 % Normal 0.2-2.0 [facility] Comment on above: Performed By: #### T NS #### [facility] [address] [address] [address] Jose Elias Strong EO # 0.1 103/ul Normal 0.0-0.7 [facility] Comment on above: Performed By: #### T NS #### [facility] [address] [address] [address] Jose Elias Strong Eosinophils/100 WBC (Bld) 0.7 % Critically low 0.9-7.0 [facility] Comment on above: Performed By: #### T NS #### [facility] [address] [address] [address] Jose Elias Strong Erythrocyte distribution width (RBC) [Ratio] 15.9 % Critically high 11.0-15.0 [facility] Comment on above: Performed By: #### T NS #### [facility] [address] [address] [address] Jose Elias Strong Hematocrit (Bld) [Volume fraction] 32.4 % Critically low 36.0-48.0 [facility] Comment on above: Performed By: #### T NS #### [facility] [address] [address] [address] Jose Elias Strong Hemoglobin (Bld) [Mass/Vol] 9.7 g/dL Critically low 12.0-16.0 [facility] [facility] Comment on above: Performed By: #### T NS #### [facility] [address] [place] [address] Dr. Jose Elias Strong IG # 0.19 10e3/ul Critically high 0.00-0.03 [facility] Comment on above: Performed By: #### T NS #### [facility] [address] [place] [address] Dr. Jose Elias Strong IG % 1.4 % Critically high 0.0-0.5 [facility] Comment on above: Performed By: #### T NS #### [facility] [address] [place] [address] Dr. Jose Elias Strong LYMPH # 1.9 103/ul Normal 1.2-3.8 [facility] Comment on above: Performed By: #### T NS #### [facility] [address] [place] [address] Dr. Jose Elias Strong Lymphocytes/100 WBC (Bld) 14.4 % Critically low 20.5-60.0 [facility] Comment on above: Performed By: #### T NS #### [facility] [address] [place] [address] Dr. Jose Elias Strong MANUAL DIFF REQ NO Normal [facility] Comment on above: Performed By: #### T NS #### [facility] [address] [place] [address] Dr. Jose Elias Strong MCH (RBC) [Entitic mass] 22.3 pg Critically low 26.7-34.0 [facility] Comment on above: Performed By: #### T NS #### [facility] [address] [place] [address] Dr. Jose Elias Strong MCHC (RBC) [Mass/Vol] 29.9 g/dL Normal 29.9-35.2 [facility] Comment on above: Performed By: #### T NS #### [facility] [address] [address] [address] Jose Elias Strong MCV (RBC) [Entitic vol] 74.5 fL Critically low 81.0-99.0 [facility] Comment on above: Performed By: #### T NS #### [facility] [address] [address] [address] Jose Elias Strong MONO # 1.4 103/ul Critically high 0.3-0.8 [facility] Comment on above: Performed By: #### T NS #### [facility] [address] [place] [address] Dr. Jose Elias Strong Monocytes/100 WBC (Bld) 10.1 % Normal 1.7-12.0 [facility] Comment on above: Performed By: #### T NS #### [facility] [address] [place] [address] Dr. Jose Elias Strong NEUT # 9.8 103/ul Critically high 1.4-6.5 [facility] Comment on above: Performed By: #### T NS #### [facility] [address] [place] [address] Dr. Jose Elias Strong Neutrophils/100 WBC (Bld) 73.2 % Normal 43.0-75.0 [facility] Comment on above: Performed By: #### T NS #### [facility] [address] [place] [address] Dr. Jose Elias Strong Platelet mean volume (Bld) [Entitic vol] 10.0 fL Normal 9.5-13.5 [facility] Comment on above: Performed By: #### T NS #### [facility] [address] [place] [address] Dr. Jose Elias Strong PLT 337 103/ul Normal 150-450 [facility] Comment on above: Performed By: #### T NS #### [facility] [address] [place] [address] Dr. Jose Elias Strong RBC 4.35 106/ul Normal 4.20-5.40 [facility] Comment on above: Performed By: #### T NS #### [facility] [address] [address] [address] Jose Elias Strong WBC 13.4 103/ul Critically high 4.0-11.0 [facility] Comment on above: Performed By: #### T NS #### [facility] [address] [place] [address] Dr. Jose Elias Strong Covid-19 PCR (CVDTB)on 08-03 SARS-CoV-2 (COVID-19) RNA [place]STON+probe Ql (Unsp spec) Not detected Normal NOT DETECTED [facility] Comment on above: Result Comment: When [...] for this test is supported by the [place] of Health and Human Service's declaration that [...] used). Performed By: #### C VDTBH #### [facility] [address] [place] [address] Dr. Jose Elias Strong TYPE AND SCREENon 08-19-2021 TYPE AND SCREEN Negative Normal [facility] Comment on above: Performed By: #### T NS #### [facility] [address] [place] [address] Dr. Jose Elias Strong GROUP B STREP CULTUREon 07-05 S. agalactiae Ag Ql (Unsp spec) Culture Observations: NEGATIVE FOR GROUP B STREPTOCOCCUS. Normal [facility] Comment on above: Performed By: #### G BSCX #### [facility] [address] [place] [address] Dr. Jose Elias Strong UA (CLEAN/CATCH) IT ADMINISTRATIVE ASSISTANT/MICRO I F IND.on 06-28-2021 Bilirubin Ql (U) Negative Normal NEGATIVE [facility] Comment on above: Performed By: #### U ACSIND, UMICRO #### [facility] [address] [address] [address] Jose Elias Strong Clarity (U) CLEAR Normal CLEAR [facility] Comment on above: Performed By: #### U ACSIND, UMICRO #### [facility] [address] [address] [address] Jose Elias Strong Color (U) LT. YELLOW Normal YELLOW [facility] Comment on above: Performed By: #### U ACSIND, UMICRO #### [facility] [address] [place] [address] Dr. Jose Elias Strong Glucose Ql (U) Negative Normal NEGATIVE [facility] Comment on above: Performed By: #### U ACSIND, UMICRO #### [facility] [address] [place] [address] Dr. Jose Elias Strong Hemoglobin Ql (U) Negative Normal NEGATIVE [facility] Comment on above: Performed By: #### U ACSIND, UMICRO #### [facility] [address] [place] [address] Dr. Jose Elias Strong Ketones Ql (U) Negative Normal NEGATIVE [facility] Comment on above: Performed By: #### U ACSIND, UMICRO #### [facility] [address] [place] [address] Dr. Jose Elias Strong LEUKOCYTES TRACE Abnormal NEGATIVE [facility] Comment on above: Performed By: #### U ACSIND, UMICRO #### [facility] [address] [place] [address] Dr. Jose Elias Strong Nitrite Ql (U) Negative Normal NEGATIVE [facility] Comment on above: Performed By: #### U ACSIND, UMICRO #### [facility] [address] [place] [address] Dr. Jose Elias Strong pH (U) 6.5 [pH] Normal 5-9 [facility] Comment on above: Performed By: #### U ACSIND, UMICRO #### [facility] [address] [address] [address] Jose Elias Strong SPEC GRAVITY 1.015 Normal 1.005-<=1.025 [facility] Comment on above: Performed By: #### U ACSMICHAEL UMICRO #### [facility] [address] [address] [address] Jose Elias Strong UA PROTEIN Negative Normal NEGATIVE/ TRACE [facility] Comment on above: Performed By: #### U ACSMICHAEL UMICRO #### [facility] [address] [place] [address] Dr. Jose Elias Strong UR MICRO IND INDICATED Normal [facility] Comment on above: Performed By: #### U ACSMICHAEL UMICRO #### [facility] [address] [place] [address] Dr. Jose Elias Strong Urobilinogen Qn (U) 0.2 {Mago'U}/dL Normal 0.2 - 1. 0 [facility] Comment on above: Performed By: #### U ACSMICHAEL UMICRO #### [facility] [address] [place] [address] Dr. Jose Elias Strong URINE MICROSCOPIC ONLYon AMORPHOUS CRYSTALS FEW Normal [facility] Comment on above: Performed By: #### U ACSMICHAEL UMICRO #### [facility] [address] [place] [address] Dr. Jose Elias Strong BACTERIA TRACE Abnormal NONE SEEN [facility] Comment on above: Performed By: #### U ACSMICHAEL UMICRO #### [facility] [address] [place] [address] Dr. Jose Elias Strong Bacteria identified Cx Nom (U) NOT INDICATED Normal [facility] Comment on above: Performed By: #### U ACSMICHAEL UMICRO #### [facility] [address] [place] [address] Dr. Jose Elias Strong CAST NONE SEEN Normal NONE SEEN [facility] Comment on above: Performed By: #### U ACSMICHAEL UMICRO #### [facility] [address] [place] [address] Dr. Jose Elias Strong Crystals LM Nom (Urine sed) SEEN Abnormal NONE SEEN [facility] Comment on above: Performed By: #### U ACSIND, UMICRO #### [facility] [address] [place] [address] Dr. Jose Elias Strong Epithelial cells LM Ql (Urine sed) RARE Normal NONE SEEN /RARE [facility] Comment on above: Performed By: #### U ACSIND, UMICRO #### [facility] [address] [place] [address] Dr. JoseE lias Strong MUCOUS TRACE Abnormal NONE SEEN [facility] Comment on above: Performed By: #### U ACSIND, UMICRO #### [facility] [address] [place] [address] Dr. Jose Elias Strong RBC 0-2 Normal 0-2 [facility] Comment on above: Performed By: #### U ACSMICHAEL, UMICRO #### [facility] [address] [place] [address] Dr. Jose Elias Strong WBC 2-5 Abnormal NONE SEEN [facility] Comment on above: Performed By: #### U ACSMICHAEL, UMICRO #### [facility] [address] [place] [address] Dr. Jose Elias Strong CBC AUTO DIFFon 06-19-2021 BASO # 0.0 103/ul Normal 0.0-0.1 [facility] Comment on above: Performed By: #### C BC #### [facility] [address] [place] [address] Dr. Jose Elias Strong Basophils/100 WBC (Bld) 0.3 % Normal 0.2-2.0 [facility] Comment on above: Performed By: #### C BC #### [facility] [address] [place] [address] Dr. Jose Elias Strong EO # 0.2 103/ul Normal 0.0-0.7 [facility] Comment on above: Performed By: #### C BC #### [facility] [address] [place] [address] Dr. Jose Elias Strong Eosinophils/100 WBC (Bld) 2.0 % Normal 0.9-7.0 [facility] Comment on above: Performed By: #### C BC #### [facility] [address] [address] [address] Jose Elias Strong Erythrocyte distribution width (RBC) [Ratio] 13.6 % Normal 11.0-15.0 [facility] Comment on above: Performed By: #### C BC #### [facility] [address] [place] [address] Dr. Jose Elias Strong Hematocrit (Bld) [Volume fraction] 29.4 % Critically low 36.0-48.0 [facility] Comment on above: Performed By: #### C BC #### [facility] [address] [place] [address] Dr. Jose Elias Strong Hemoglobin (Bld) [Mass/Vol] 9.5 g/dL Critically low 12.0-16.0 [facility] Comment on above: Performed By: #### C BC #### [facility] [address] [place] [address] Dr. Jose Elias Strong IG # 0.14 10e3/ul Critically high 0.00-0.03 [facility] Comment on above: Performed By: #### C BC #### [facility] [address] [place] [address] Dr. Jose Elias Strong IG % 1.4 % Critically high 0.0-0.5 [facility] Comment on above: Performed By: #### C BC #### [facility] [address] [place] [address] Dr. Jose Elias Strong LYMPH # 1.6 103/ul Normal 1.2-3.8 [facility] Comment on above: Performed By: #### C BC #### [facility] [address] [place] [address] Dr. Jose Elias Strong Lymphocytes/100 WBC (Bld) 15.5 % Critically low 20.5-60.0 [facility] Comment on above: Performed By: #### C BC #### [facility] [address] [place] [address] Dr. Jose Elias Strong MANUAL DIFF REQ NO Normal [facility] Comment on above: Performed By: #### C BC #### [facility] [address] [address] [address] Jose Elias Strong MCH (RBC) [Entitic mass] 26.8 pg Normal 26.7-34.0 [facility] Comment on above: Performed By: #### C BC #### [facility] [address] [address] [address] Jose Elias Strong MCHC (RBC) [Mass/Vol] 32.3 g/dL Normal 29.9-35.2 [facility] Comment on above: Performed By: #### C BC #### [facility] [address] [address] [address] Jose Elias Strong MCV (RBC) [Entitic vol] 82.8 fL Normal 81.0-99.0 [facility] Comment on above: Performed By: #### C BC #### [facility] [address] [place] [address] Dr. Jose Elias Strong MONO # 1.2 103/ul Critically high 0.3-0.8 [facility] Comment on above: Performed By: #### C BC #### [facility] [address] [address] [address] Jose Elias Strong Monocytes/100 WBC (Bld) 12.2 % Critically high 1.7-12.0 [facility] Comment on above: Performed By: #### C BC #### [facility] [address] [place] [address] Dr. Jose Elias Strong NEUT # 7.0 103/ul Critically high 1.4-6.5 [facility] Comment on above: Performed By: #### C BC #### [facility] [address] [place] [address] Dr. Jose Elias Strong Neutrophils/100 WBC (Bld) 68.6 % Normal 43.0-75.0 [facility] Comment on above: Performed By: #### C BC #### [facility] [address] [place] [address] Dr. Jose Elias Strong Platelet mean volume (Bld) [Entitic vol] 9.1 fL Critically low 9.5-13.5 [facility] Comment on above: Performed By: #### C BC #### [facility] [address] [address] [address] Jose Elias Strong PLT 309 103/ul Normal 150-450 [facility] Comment on above: Performed By: #### C BC #### [facility] [address] [address] [address] Jose Elias Strong RBC 3.55 106/ul Critically low 4.20-5.40 [facility] Comment on above: Performed By: #### C BC #### [facility] [address] [address] [address] Jose Elias Strong WBC 10.1 103/ul Normal 4.0-11.0 [facility] Comment on above: Performed By: #### C BC #### [facility] [address] [address] [address] Jose Elias Strong GLYCOHEMOGLOBIN A1Con 2021 ADA RECOMMENDATION ADA THERAPEUTIC TARGET 6.0 - 7.0 ACTION SUGGESTED > 7.0 Normal [facility] Comment on above: Performed By: #### T NS #### [facility] [address] [address] [address] Jose Elias Strong Glucose [Mass/Vol] 97 mg/dL Normal [facility] Comment on above: Performed By: #### T NS #### [facility] [address] [address] [address] Jose Elias Strong HbA1c (Bld) [Mass fraction] 5.0 % Normal <=6.0 [facility] Comment on above: Performed By: #### T NS #### [facility] [address] [address] [address] Jose Elias Strong Consenton 10-24-2020 Consent [id number] .[id number]:127 Normal [facility] In office Testingon 10-25-19 21 In office Testing [id number] 1.00CD:127 Normal [facility] Registrationon 10-24-2020 Registration [id number] .00CD:127 [facility] Registration [id number] .00CD:127 [facility] Vital Signs Date Time Vital Sign Value Performing Clinician Leslie garrett 06-12-2023 11:020500 Body mass index (BMI) [Ratio] 30.26 kg/m2 Mary Venkat DO Work Phone: [facility] 06-12-2023 11:02-050 Body weight 77.47 kg Mary Venkat DO Work Phone: [facility] 06-12-2023 11:02-0500 Diastolic blood pressure 70 mm[Hg] Mary Venkat DO Work Phone: [facility] 06-12-2023 11:02-0500 Systolic blood pressure 118 mm[Hg] Mary Venkat DO Work Phone: [facility] Encounters Encounter Date Encounter Type Care Provider Facility Start: 06-12-2023 End: 06-12-2023 ambulatory MARY VENKAT Not Available Start: 06-12-2023 End: 06-12-2023 Office outpatient visit 15 minutes Mary Venkat DO Work Phone: [facility] Comment on above: Third trimester preg jun Start: 05-29-2023 End: 05-29-2023 ambulatory ERIKA CHAN Not Available Start: 04-23-2023 End: 04-23-2023 ambulatory MARY VENKAT Not Available Start: 03-19-2023 End: 03-19-2023 ambulatory MARY VENKAT Not Available Start: 12-10-2022 ambulatory ALEXANDER Myers [facility] Start: 11-19-2022 End: 11-19-2022 ambulatory YOMAIRA LAWLER [facility] Start: 10-28-2022 End: 10-29-20[facility] Start: 08-29-2022 ambulatory YOMAIRA LAWLER [facility] Start: 08-19-2022 End: 08-19-2022 Emergency department patient visit YOMAIRA LAWLER [facility] Start: 08-08-2022 End: 08-08-2022 Emergency department patient visit JERRY WALLS [facility] Start: 06-04-2022 End: 06-04-[address] MARY ROBLEDO Facility: Start: 11-14-2021 End: 11-14-[address] MARY ROBLEDO Facility: Start: 09-05-2021 End: 09-17-[address] MARY ROBLEDO Facility: Start: 08-27-2021 End: 08-27-[address] MARY ROBLEDO Facility: Start: 08-19-2021 End: 08-21-2021 Evaluation and management of inpatient DR MARY ROBLEDO Facility:[facility] Start: 08-01-2021 End: 08-01-[address] MARY ROBLEDO Facility: Start: 06-28-2021 End: 06-28-2021 ambulatory TIM LEIF Facility:[facility] Start: 06-19-2021 End: 06-20-[address] AMRY ROBLEDO Facility:[facility] Procedures Date Procedure Procedure Detail Performing Clinician Start: 06-12-2023 Urnls dip stick/tabl et rgnt non-auto w/o micrscp Mary Robledo DO Work Phone: Start: 08-19-2021 Delivery of Products of Conception, External Approach DR MARY ROBLEDO Plan of Treatment Date Care Activity Detail Author Start: 06-24-2023 End: 06-24-2023 Patient encounter procedure 06/24/2023 1:00 PM EST Routine [facility] [address] [place] [id number] Erika Chan PA [address] [place] [address] [facility] Payers Date Payer Category Payer Medicaid [id number] 2022 Medicaid [employer] [place] [id number] 2022-Present [address] [place] [address] [id number] 1995 Unknown [id number] [id number] 1995 Unknown [id number] 2.16.840.1.863277.3.579.2.593 1995 Unknown [id number] 2.16.840.1.385871.3.579.2.593 1995 Unknown [id number] 2.16.840.1.767099.3.579.2.593 1995 Unknown [id number] 2.16.840.1.012415.3.579.2.593 1995 Unknown [id number] 2.16.840.1.096387.3.579.2.593 1995 Unknown [id number] 2.16.840.1.529595.3.579.2.593 1995 Unknown [id number] 2.16.840.1.174005.3.579.2.593 1995 Unknown [id number] 2.16.840.1.290240.3.579.2.121 1995 Unknown [id number] 2.16.840.1.142427.3.579.2.1212 1995 Unknown [id number] 2.16.840.1.809227.3.579.2.121 1995 Unknown [id number] 2.16.840.1.095853.3.579.2.1212 1995 Unknown [id number] 2.16.840.1.738038.3.579.2.1212 1995 Unknown [id number] 2.16.840.1.077510.3.579.2.1213 1995 Unknown [id number] 2.16.840.1.948367.3.579.2.9 1995 Unknown [id number] 2.16.840.1.586146.3.579.2.9 1995 Unknown [id number] 2.16.840.1.823837.3.579.2.9 1995 Unknown [id number] 2.16.840.1.171969.3.579.2.1259 1959 Unknown [id number] Social History Date Type Detail Facility Start: 10-21-2022 Tobacco smoking stat [facility] Never smoked tobacco [facility] Start: 10-21-2022 Tobacco use and exposure Smoke less tobacco non-user [facility] Start: 06-12-2023 Alcohol intake Lifetime non-d deborah (finding) [facility] Start: 10-21-2022 History of Social function [facility] Start: 10-21-2022 Tobacco use panel [facility] Start: 11-11-2022 [facility] Start: 1995 Sex Assigned At Female [facility] Start: 10-20-2022 Gender identity Identifies as female gender (finding) [facility] Start: 10-20-2022 Sexual orientation Bisexual (finding ) [facility] History of Present illness Narrative 06-12-2023 Mary Robledo DO - 06/12/2023 10:40 AM EST Note Date & Type Note Facility 06-12-2023 History of Presen t illness Narrative Reason for Appointment: Patient ID: Jojo Hackett is a 27 y.o. female who presents for Routine Visit Patient presents today for Return OB appointment. Current Medications: has a current medication list which includes the following prescription(s): advair diskus, citalopram, citalopram, levothyroxine, multivitamin, plus/iron, and ventolin hfa. Medical History: Active Ambulatory Problems Diagnosis Date Noted Acute asthma ([facility]) 12/03/2022 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 12/03/2022 Neck swelling 08/19/2022 Schizoaffective disorder ([facility]) 12/03/2022 Resolved Ambulatory Problems Diagnosis Date Noted No Resolved Ambulatory Problems Past Medical History: Diagnosis Date BMI 24.0-24.9, adult Depot contraception Encounter for IUD insertion Encounter for Papanicolaou cervical smear to confirm findings of recent normal smear following initial abnormal smear Intrauterine device surveillance Schizo-affective psychosis ([facility]) Urine test negative Family History Problem Relation Name Age of Onset Heart disease Mother Mental illness Mother COPD Mother Multiple sclerosis Mother Multiple sclerosis Maternal Grandmother Social History Tobacco Use Smoking status: Never Smokeless tobacco: Never Substance Use Topics Alcohol use: Never Drug use: Never Past Surgical History: Procedure Laterality Date PAP SMEAR 11/14/2021 negative TONSILLECTOMY 11/19/2022 Allergies Allergen Reactions Bee Venom Hives Iodine Hives Nickel Hives Amoxicillin Unknown Bee Pollen Unknown Latex Unknown Penicillin G Unknown Shellfish-Derived Products Unknown Review of Systems: Review of Systems Constitutional: Negative. HENT: Negative. Eyes: Negative. Respiratory: Negative. Cardiovascular: Negative. Gastrointestinal: Negative. Genitourinary: Negative. Musculoskeletal: Negative. Skin: Negative. Neurological: Negative. All other systems reviewed and are negative. Hematological: Negative. Endocrine: Negative. Allergic/Immunologic: Negative. Objective Physical Exam Constitutional: Appearance: Normal appearance. She is well-developed. Cardiovascular: Rate and Rhythm: Normal rate and regular rhythm. Pulmonary: Effort: Pulmonary effort is normal. Breath sounds: Normal breath sounds. Abdominal: General: Bowel sounds are normal. There is no distension. Palpations: Abdomen is soft. Tenderness: There is no abdominal tenderness. There is no guarding or rebound. Musculoskeletal: General: No swelling. Normal range of motion. Right lower leg: No edema. Left lower leg: No edema. Neurological: Mental Status: She is alert and oriented to person, place, and time. Skin: General: Skin is warm and dry. Psychiatric: Mood and Affect: Mood normal. Behavior: Behavior normal. Vitals and nursing note reviewed. Exam conducted with a application release manager present. Vitals: Estimated body mass index is 30.26 kg/m as calculated from the following: Height as of 06/04/22: 5' 3 . Weight as of this encounter: 170 lb 12.8 oz. BP: 118/70 Patient's last menstrual period was 11/25/2022. Assessment/Plan Encounter Diagnosis Name Primary? Third trimester Patient presents today for a routine obstetrics appointment. Patient is currently 33w0d . Patient states she is doing well but has complaints of being tired due to current . Patient has verbalizes frequent movement. labor precautions was discussed/given and patient was instructed to perform kick counts three times a day. Follow Up: Patient is to return to office in 2 week for routine OB appointment. Documented by Mary Robledo DO on behalf of: Mary Robledo DO documented in this encounter [facility] Evaluation note Note Date & Type Note Facility Evaluation note Diagnosis Third trimester state, incidental documented in this encounter [facility] Summary Purpose Family History No Family History Records FoundNo Family History Records FoundNo Family History Records FoundNo Family History Records Found Advance Directives No Advanced Directives Records FoundNo Advanced Directives Records FoundNo Advanced Directives Records FoundNo Advanced Directives Records Found Additional Source Comments INFORMATION SOURCE (unrecogn ized section and content) DATE CREATED AUTHOR 10/25/2020 [facility] DATE CREATED AUTHOR AUTHOR'S ORGANIZ ATION 06/11/2022 [facility] DATE CREATED AUTHOR AUTHOR'S ORGANIZ ATION 12/16/2022 [facility] DATE CREATED AUTHOR AUTHOR'S ORGANIZ ATION 06/13/[address] [facility] EPIC Reason for Visit (unrecogniz ed section and content) Reason Comments Routine Visit FOR RECORDS PERTAINING TO PATIENTS WHO ARE [...] BE BASED ON THE PRIMARY CLINICAL RECORDS. [employer] provides no warranty or guarantee of the accuracy or completeness of information in this document.
== END 2023-06-17 12:35 | disposition home or self-care (01) ==
LOC: US 07:11 → FBC 12:10
PROVIDERS: PCP Family Medicine; Visit Provider Obstetrics & Gynecology
DX: O36.63X1 Maternal care for excessive fetal growth, third trimester, fetus 1 (principal); Z3A.33 33 weeks gestation of pregnancy
CPT/HCPCS: 76818

== ENCOUNTER 2023-06-20 07:45 | Outpatient (OUT) | payer OTHER, SELFPAY ==
--- OUTSIDE RECORDS SUMMARY | 2023-06-20 07:48 | XMS_ITS | CCD ---
Author Name Unknown Address [address] [place] [address] Organization [facility] Care Team Providers Care Coat Joiner Name Role Phone VENKAT, DR HERNANDEZ Admitting [...] Translations: [LATEX] Drug allergy (disorder) 6 [facility] Repository (2 sources) Leucine; Translations: [NICKEL] Drug Allergy 7 [facility] Repository (2 sources) Penicillins; Translations: [PENICILLINS] Drug allergy (disorder) 7 [facility] Repository (1 source) Shellfish Drug allergy (disorder) 7 [facility] Repository (2 sources) Iodine; Translations: [IODINE] Drug Allergy 3 [facility] Repository (1 source) SHELLFISH CONTAINING PRODUCTS; Translations: [SHELLFISH CONTAINING PRODUCTS] Propensity to adverse reactions to drug (disorder) 3 [facility] Repository (1 source) VENOM-HONEY BEE; Translations: [VENOM-HONEY BEE] Propensity to adverse reactions to drug (disorder) 3 [facility] Repository (1 source) Amoxicillin Drug Allergy 3 Unknown [facility] Healthcare (1 source) Bee pollen Allergy to substance 3 Unknown [facility] Healthcare (1 source) Honey bee venom Propensity to adverse reactions 3 [facility] Healthcare (1 source) Latex Allergy to substance 3 Unknown [facility] Healthcare (1 source) nickel sulfate Drug Allergy 3 [facility] Healthcare (1 source) Penicillin G Drug Allergy 3 Unknown [facility] (1 source) Shellfish-Derive d Products Drug Allergy 3 Unknown [facility] Healthcare Medications Current Medications Medication Drug Class(es) Dates Sig (Normalized) Sig (Original) [id number] 200 actuat albuterol 0.09 mg/actuat metered dose [...] sexual mode of transmission complicating childbirth; Translations: [[facility] INF SEXL TRNSMS COMP CHILDBIRTH] Onset: 08-19-2021 Episodic Other complications of ; puerperium affecting management of mother (1 source) Other mental disorders complicating childbirth; Translations: [[facility] MENTAL D/O COMP CHILDBIRTH] Onset: 08-30-2021 Episodic Other complications of (4 sources) Other specified related conditions, third trimester; Translations: [[facility] SPEC PREG RELATED COND 3RD TRI] Onset: [...] UA Negative Negative - 4(70) +++ mg/dL [facility] Blood, UA Negative Negative - 50 Yovany/mcL [facility] Clarity, UA Clear [facility] Color, UA Yellow [facility] Glucose, UA Negative Negative - 2000(110) ++++ mg/dL [facility] Interpretation and review of laboratory results Abnormal [facility] Ketones, UA Negative Negative - 160(16) ++++ mg/dL [facility] Leukocytes, UA Positive Negative - 500+++ Jamey/mcL [facility] Nitrite, UA Negative Negative - Positive [facility] pH, UA 5.5 5 - 9 [facility] Protein, UA Positive Negative - 2000(20) ++++ mg/dL [facility] Spec Grav, UA 1.020 1 - 1.03 [facility] Urobilinogen, UA 1.0 0.2 - 12 mg/dL [facility] HCG, Urineon 11-19-2022 Beta HCG ( test) Ql (U) Negative Normal [facility] Comment on above: Order Comment: The c alculated GFR uses the (IDMS)-traceable creatinine MDRD equation and is reported in mL/min/1.73 square meters. This formula is not recommended for use with individuals with unstable creatinine concentrations, extremes in muscle mass and/or body size, or alternative diets and may not be suitable for all patient populations. Testing performed at [facility] Elias [facility], [address] [place] [address] [id number] Result Comment: Note : This test provides only a presumptive diagnosis for . If the HCG result is inconsistent with clinical evidence, results should be confirmed with an alternative method, such as a quantitative HCG. Basic Metabolic Profileon ANIO 11 mmol/L Low 12-20 [facility] Comment on above: Order Comment: Testi ng performed at [facility], [address] [place] [address] 50818 Calcium [Mass/Vol] 9.5 mg/dL Normal 8.4-10.2 [facility] Comment on above: Order Comment: Testi ng performed at [facility], [address] [place] [address] 26850 Chloride [Moles/Vol] 107 mmol/L Normal 98-107 [facility] Comment on above: Order Comment: Testi ng performed at [facility], [address] [place] [address] 82481 CO2 [Moles/Vol] 23.0 mmol/L Normal 22.0-30.0 [facility] Comment on above: Order Comment: Testi ng performed at [facility], [address] [place] [address] 70515 Creatinine [Mass/Vol] 0.7 mg/dL Normal 0.6-1.2 [facility] Comment on above: Order Comment: Testi ng performed at [facility], [address] [place] [address] 58062 Glucose [Mass/Vol] 118 mg/dL High 74-106 [facility] Comment on above: Order Comment: Testi ng performed at [facility], [address] [place] [address] 60129 Potassium [Moles/Vol] 4.1 mmol/L Normal 3.3-4.9 [facility] Comment on above: Order Comment: Testi ng performed at [facility], [address] [place] [address] 30419 Sodium [Moles/Vol] 137 mmol/L Normal 137-145 [facility] Comment on above: Order Comment: Testi ng performed at [facility], [address] [place] [address] 72220 Urea nitrogen [Mass/Vol] 14 mg/dL Normal 8-19 [facility] Comment on above: Order Comment: Testi ng performed at [facility], [address] [place] [address] 00209 CBC w/Auto Diffon 08-19-2022 Basophils (Bld) [#/Vol] 0.04 10*3/uL Normal 0.00-0.10 [facility] Comment on above: Order Comment: [...] is no longer indicated. Testing performed at [facility], [address] [place] [address] 54122 Eosinophils (Bld) [#/Vol] 0.05 10*3/uL Normal 0.00-0.40 [facility] Comment on above: Order Comment: [...] is no longer indicated. Testing performed at [facility], [address] [place] [address] 69242 Erythrocyte distribution width (RBC) [Ratio] 13.3 % Normal 11.7-14.4 [facility] Comment on above: Order Comment: [...] is no longer indicated. Testing performed at [facility], [address] [place] [address] 80434 Hematocrit (Bld) [Volume fraction] 36.1 % Normal 34.1-44.9 [facility] Comment on above: Order Comment: [...] is no longer indicated. Testing performed at [facility], [address] [place] [address] 46394 Hemoglobin (Bld) [Mass/Vol] 12.0 g/dL Normal 11.2-15.7 [facility] Comment on above: Order Comment: [...] is no longer indicated. Testing performed at [facility], [address] [place] [address] 12293 IG % (B) 0.6 % High 0.0-0.4 [facility] Comment on above: Order Comment: [...] is no longer indicated. Testing performed at [facility], [address] [place] [address] 38156 IG# (B) 0.14 10*3/uL High 0.00-0.00 [facility] Comment on above: Order Comment: [...] is no longer indicated. Testing performed at [facility], [address] [place] [address] 45117 Lymphocytes (Bld) [#/Vol] 0.81 10*3/uL Low 1.20-3.70 [facility] Comment on above: Order Comment: [...] is no longer indicated. Testing performed at [facility], [address] [place] [address] 15692 MCH (RBC) [Entitic mass] 28.5 pg Normal 25.6-32.2 [facility] Comment on above: Order Comment: [...] is no longer indicated. Testing performed at [facility], [address] [place] [address] 23435 MCHC (RBC) [Mass/Vol] 33.2 g/dL Normal 32.2-35.5 [facility] Comment on above: Order Comment: [...] is no longer indicated. Testing performed at [facility], [address] [place] [address] 98986 MCV (RBC) [Entitic vol] 85.7 fL Normal 79.4-94.8 [facility] Comment on above: Order Comment: [...] is no longer indicated. Testing performed at [facility], [address] [place] [address] 50869 Monocytes (Bld) [#/Vol] 1.81 10*3/uL High 0.20-0.90 [facility] Comment on above: Order Comment: [...] is no longer indicated. Testing performed at [facility], [address] [place] [address] 32902 Neutrophils (Bld) [#/Vol] 20.04 10*3/uL High 1.60-6.10 [facility] Comment on above: Order Comment: [...] is no longer indicated. Testing performed at [facility], [address] [place] [address] 89561 NRBC % (B) 0.0 /100{WBC} Normal 0.0-0.2 [facility] Comment on above: Order Comment: [...] is no longer indicated. Testing performed at [facility], [address] [place] [address] 46924 NRBC# (B) 0.00 10*3/uL Normal 0.00-0.00 [facility] Comment on above: Order Comment: [...] is no longer indicated. Testing performed at [facility], [address] [place] [address] 15146 Platelet mean volume (Bld) [Entitic vol] 9.9 fL Normal 9.4-12.3 [facility] Comment on above: Order Comment: [...] is no longer indicated. Testing performed at [facility], [address] [place] [address] 38919 Platelets (Bld) [#/Vol] 267 10*3/uL Normal 182-369 [facility] Comment on above: Order Comment: [...] is no longer indicated. Testing performed at [facility], [address] [place] [address] 43179 RBC (Bld) [#/Vol] 4.21 10*6/uL Normal 3.93-5.22 [facility] Comment on above: Order Comment: Immature [...] is no longer indicated. Testing performed at [facility], [address] [place] [address] 00184 RDW-SD (B) 41.1 fL Normal 36.4-46.3 [facility] Comment on above: Order Comment: [...] is no longer indicated. Testing performed at [facility], [address] [place] [address] 27638 WBC (Bld) [#/Vol] 22.9 10*3/uL High 4.0-10.0 [facility] Comment on above: Order Comment: Immature [...] is no longer indicated. Testing performed at [facility], [address] [place] [address] NECK WITHOUT CONTRASTon 0 08-19-2022 CT [...] Salinas MD On: 08/19/2022 1:25 PM Normal [facility] EST Glomerular Filtration Ra jude 08-19-2022 EAGFR (B) >60 Normal >60 [facility] Comment on above: Order Comment: The c alculated GFR uses the (IDMS)-traceable creatinine MDRD equation and is reported in mL/min/1.73 square meters. This formula is not recommended for use with individuals with unstable creatinine concentrations, extremes in muscle mass and/or body size, or alternative diets and may not be suitable for all patient populations. Testing performed at [facility], [address] [place] [address] Result Comment: The reported eGFR is based on a non- patient, for Americans multiply the result by 1.212. HCG, Serumon 08-19-2022 HCGS Negative Normal [facility] Comment on above: Order Comment: Testi ng performed at [facility], [address] [place] [address] Result Comment: Note : This test provides only a presumptive diagnosis for . If the HCG result is inconsistent with clinical evidence, results should be confirmed with an alternative method, such as a quantitative HCG. Man Diffon 08-19-2022 Eos, Diff 2 % Normal 0-6 [facility] Comment on above: Order Comment: Testi ng performed at [facility], [facility] [place] [address] Lymphocytes/100 WBC (Bld) 3 % Low 20-53 [facility] Comment on above: Order Comment: Testi ng performed at [facility], [address] [place] [address] Kay, Diff 6 % Normal 5-12 [facility] Comment on above: Order Comment: Testi ng performed at [facility], [address] [place] [place] [address] Segs. Diff 89 % High 34-70 [facility] Comment on above: Order Comment: Testi ng performed at [facility], [address] [place] [address] Slide Scan Normal Normal Normal [facility] Comment on above: Order Comment: Testi ng performed at [facility], [address] [facility] [place] [address] Basic Metabolic Profileon ANIO 12 mmol/L Normal 12-20 [facility] Comment on above: Order Comment: Testi ng performed at [facility], [address] [place] [place] [address] Calcium [Mass/Vol] 9.1 mg/dL Normal 8.4-10.2 [facility] Comment on above: Order Comment: [facility], [address] [place] [address] Chloride [Moles/Vol] 106 mmol/L Normal 98-107 [facility] Comment on above: Order Comment: Testi ng [facility], [address] [place] [address] CO2 [Moles/Vol] 27.0 mmol/L Normal 22.0-30.0 [facility] Comment on above: Order Comment: Testi ng performed at [facility], [address] [place] [address] Creatinine [Mass/Vol] 0.6 mg/dL Normal 0.6-1.2 [facility] Comment on above: Order Comment: Testi ng performed at [facility], [address] [place] [address] Glucose [Mass/Vol] 95 mg/dL Normal 74-106 [facility] Comment on above: Order Comment: Testi ng performed at [facility], [address] [place] [address] Potassium [Moles/Vol] 4.1 mmol/L Normal 3.3-4.9 [facility] Comment on above: Order Comment: Testi ng performed at [facility], [address] [place] [address] Sodium [Moles/Vol] 141 mmol/L Normal 137-145 [facility] Comment on above: Order Comment: Testi ng performed at [facility], [address] [place] [address] Urea nitrogen [Mass/Vol] 9 mg/dL Normal 8-19 [facility] Comment on above: Order Comment: Testi ng performed at [facility], [address] [place] [address] CBC w/Auto Diffon 08-08-2022 Basophils (Bld) [#/Vol] 0.04 10*3/uL Normal 0.00-0.10 [facility] Comment on above: Order Comment: [...] is no longer indicated. Testing performed at [facility], [address] [place] [address] 05291 Basophils/100 WBC (Bld) 0.4 % Normal 0.1-1.2 [facility] Comment on above: Order Comment: [...] is no longer indicated. Testing performed at [facility], [address] [place] [address] 26930 Eosinophils (Bld) [#/Vol] 0.21 10*3/uL Normal 0.00-0.40 [facility] Comment on above: Order Comment: [...] is no longer indicated. Testing performed at [facility], [address] [place] [address] 60269 Eosinophils/100 WBC (Bld) 2.1 % Normal 0.7-5.8 [facility] Comment on above: Order Comment: [...] is no longer indicated. Testing performed at [facility], [address] [place] [address] 74159 Erythrocyte distribution width (RBC) [Ratio] 12.9 % Normal 11.7-14.4 [facility] Comment on above: Order Comment: [...] is no longer indicated. Testing performed at [facility], [address] [place] [address] 73646 Hematocrit (Bld) [Volume fraction] 35.4 % Normal 34.1-44.9 [facility] Comment on above: Order Comment: [...] is no longer indicated. Testing performed at [facility], [address] [place] [address] 21350 Hemoglobin (Bld) [Mass/Vol] 11.2 g/dL Normal 11.2-15.7 [facility] Comment on above: Order Comment: [...] is no longer indicated. Testing performed at [facility], [address] [place] [address] 19579 IG % (B) 0.4 % Normal 0.0-0.4 [facility] Comment on above: Order Comment: [...] is no longer indicated. Testing performed at [facility], [address] [place] [address] 90766 IG# (B) 0.04 10*3/uL High 0.00-0.00 [facility] Comment on above: Order Comment: [...] is no longer indicated. Testing performed at [facility], [address] [place] [address] 72540 Lymphocytes (Bld) [#/Vol] 1.60 10*3/uL Normal 1.20-3.70 [facility] Comment on above: Order Comment: [...] is no longer indicated. Testing performed at [facility], [address] [place] [address] 22598 Lymphocytes/100 WBC (Bld) 16.3 % Low 19.3-51.7 [facility] Comment on above: Order Comment: [...] is no longer indicated. Testing performed at [facility], [address] [place] [address] 91698 MCH (RBC) [Entitic mass] 27.7 pg Normal 25.6-32.2 [facility] Comment on above: Order Comment: [...] is no longer indicated. Testing performed at [facility], [address] [place] [address] 80069 MCHC (RBC) [Mass/Vol] 31.6 g/dL Low 32.2-35.5 [facility] Comment on above: Order Comment: [...] is no longer indicated. Testing performed at [facility], [address] [place] [address] 80118 MCV (RBC) [Entitic vol] 87.4 fL Normal 79.4-94.8 [facility] Comment on above: Order Comment: [...] is no longer indicated. Testing performed at [facility], [address] [place] [address] 02421 Monocytes (Bld) [#/Vol] 0.88 10*3/uL Normal 0.20-0.90 [facility] Comment on above: Order Comment: [...] is no longer indicated. Testing performed at [address] [address] Monocytes/100 WBC (Bld) 8.9 % Normal 4.7-12.5 [facility] Comment on above: Order Comment: [...] is no longer indicated. Testing performed at [facility], [address] [place] [address] 43333 Neutrophils (Bld) [#/Vol] 7.07 10*3/uL High 1.60-6.10 [facility] Comment on above: Order Comment: [...] is no longer indicated. Testing performed at [facility], [address] [place] [address] 09278 Neutrophils/100 WBC (Bld) 71.9 % High 34.0-71.1 [facility] Comment on above: Order Comment: [...] is no longer indicated. Testing performed at [facility], [address] [place] [address] 59567 NRBC % (B) 0.0 /100{WBC} Normal 0.0-0.2 [facility] Comment on above: Order Comment: [...] is no longer indicated. Testing performed at [facility], [address] [place] [address] 23065 NRBC# (B) 0.00 10*3/uL Normal 0.00-0.00 [facility] Comment on above: Order Comment: [...] is no longer indicated. Testing performed at [facility], [address] [place] [address] 85232 Platelet mean volume (Bld) [Entitic vol] 9.2 fL Low 9.4-12.3 [facility] Comment on above: Order Comment: [...] is no longer indicated. Testing performed at [facility], [address] [place] [address] 34827 Platelets (Bld) [#/Vol] 315 10*3/uL Normal 182-369 [facility] Comment on above: Order Comment: [...] is no longer indicated. Testing performed at [facility], [address] [place] [address] 76599 RBC (Bld) [#/Vol] 4.05 10*6/uL Normal 3.93-5.22 [facility] Comment on above: Order Comment: Immature [...] is no longer indicated. Testing performed at [facility], [address] [place] [address] 24209 RDW-SD (B) 41.0 fL Normal 36.4-46.3 [facility] Comment on above: Order Comment: [...] is no longer indicated. Testing performed at [facility], [address] [place] [address] 78006 WBC (Bld) [#/Vol] 9.8 10*3/uL Normal 4.0-10.0 [facility] Comment on above: Order Comment: Immature [...] is no longer indicated. Testing performed at [facility], [address] [place] [address] NECK WITHOUT CONTRASTon 0 08-08-2022 CT [...] Schultz MD On: 08/08/2022 4:07 PM Normal [facility] EST Glomerular Filtration Ra jude 08-08-2022 EAGFR (B) >60 Normal >60 [facility] Comment on above: Order Comment: The c alculated GFR uses the (IDMS)-traceable creatinine MDRD equation and is reported in mL/min/1.73 square meters. This formula is not recommended for use with individuals with unstable creatinine concentrations, extremes in muscle mass and/or body size, or alternative diets and may not be suitable for all patient populations. Testing performed at [facility], [address] [place] [address] 85037 Result Comment: The reported eGFR is based on a non- patient, for Americans multiply the result by 1.212. Pap IG, rfx Aptima HPV, rfx 16/18,45on 06-11-2022 . . Normal [facility] Comment on above: Result Comment: Perf ormed at: WB Performed By: #### P APHR2A #### [facility] [address] [address] [address] Jose Elias Strong DIAGNOSIS: Comment Normal [facility] Comment on above: Result Comment: NEGA TIVE FOR INTRAEPITHELIAL LESION OR MALIGNANCY. Performed at: WB Performed By: #### P APHR2A #### [facility] [address] [address] [address] Jose Elias [facility] HPV Aptima Negative Normal Negative [facility] Comment on above: Result Comment: This nucleic acid amplification test detects fourteen high-risk HPV types (16,18,31,33,35,39,45,51,52,56,58,59,66,68) without differentiation. Performed at: =G Performed By: #### P APHR2A #### [facility] [address] [address] [address] Jose [facility]as [facility] HPV Genotype Reflex Comment Normal [facility] Comment on above: Result Comment: Crit eria not met, HPV Genotype not performed. Performed at: WB Performed By: #### P APHR2A #### [facility] [address] [address] [address] Jose Elias Strong Methodology: Comment Normal [facility] Comment on above: Result Comment: This liquid based ThinPrep(R) pap test was screened with the use of an image guided system. Performed at: WB Performed By: #### P APHR2A #### [facility] [address] [address] [address] Jose Elias Strong Note: Comment Normal [facility] Comment on above: Result Comment: The Pap smear is a screening test designed to aid in the detection of premalignant and malignant conditions of the uterine cervix. It is not a diagnostic procedure and should not be used as the sole means of detecting cervical cancer. Both false-positive and false-negative reports do occur. . Performed at: WB Performed By: #### P APHR2A #### [facility] [address] [address] [address] Jose Elias Strong Performed by: Comment Normal [facility] Comment on above: Result Comment: Koffi Hutchinson, Put In Beat Adjuster (ASCP) Performed at: WB Performed By: #### P APHR2A #### [facility] [address] [address] [address] Jose Elias Strong Specimen adequacy: Comment Normal [facility] Comment on above: Result Comment: Sati sfactory for evaluation. Endocervical and/or squamous metaplastic cells (endocervical component) are present. Performed at: [facility] Performed By: #### P [id number] #### [facility] [address] [place] [address] Dr. Jose Elias Strong PAP ACOG PANEL 2: 21 to 29on 11-20-2021 . . Normal [facility] Comment on above: Performed By: #### [id number] #### [facility] [address] [place] [address] Dr. Jose Elias Strong Age Gdln ACOG Testing - Normal [facility] Comment on above: Performed By: #### [id number] #### [facility] [address] [place] [address] Dr. Jose Elias Strong DIAGNOSIS: Comment [facility] Comment on above: Result Comment: NEGA TIVE FOR INTRAEPITHELIAL LESION OR MALIGNANCY. REACTIVE CELLULAR CHANGES AND/OR REPAIR ARE PRESENT. Performed By: #### [id number] #### [facility] [address] [place] [address] Dr. Jose Elias Strong Electronically signed by: Comment Normal [facility] Comment on above: Result Comment: Melinda Patel MD, Pathologist Performed By: #### [id number] #### [facility] [address] [place] [address] Dr. Jose Elias Strong Methodology: Comment [facility] Comment on above: Result Comment: This liquid based ThinPrep(R) pap test was screened with the use of an image guided system. Performed By: #### [id number] #### [facility] [address] [place] [address] Dr. Jose Elias Strong Note: Comment [facility] Comment on above: Result Comment: The Pap smear is a screening test designed to aid in the detection of premalignant and malignant conditions of the uterine cervix. It is not a diagnostic procedure and should not be used as the sole means of detecting cervical cancer. Both false-positive and false-negative reports do occur. . Performed By: #### [id number] #### [facility] [address] [place] [address] Dr. Jose Elias Strong Performed by: Comment Normal [facility] Comment on above: Result Comment: Bruc e Den Romero, Put In Beat Adjuster (ASCP) Performed By: #### [id number] #### [facility] [address] [place] [address] Dr. Jose Elias Strong Reflex Criteria: Comment Normal [facility] Comment on above: Result Comment: The HPV DNA reflex criteria were not met with this specimen result therefore, no HPV testing was performed. . Performed By: #### [id number] #### [facility] [address] [place] [address] Dr. Jose Elias Strong Specimen adequacy: Comment Normal [facility] Comment on above: Result Comment: Sati sfactory for evaluation. Endocervical and/or squamous metaplastic cells (endocervical component) are present. Performed By: #### [id number] #### [facility] [address] [place] [address] Dr. Jose Elias Strong CBC W MANUAL DIFFon 08-21-19 22 ANISOCYTOSIS 1+ Normal [facility] Comment on above: Performed By: #### T NS #### [facility] [address] [place] [address] Dr. Jose Elias Strong ATYPICAL LYMPH # Normal [facility] Comment on above: Performed By: #### T NS #### [facility] [address] [place] [address] Dr. Jose Elias Strong ATYPICAL LYMPH % Normal [facility] Comment on above: Performed By: #### T NS #### [facility] [address] [place] [address] Dr. Jose Elias Strong BAND # 0.2 103/ul Normal 0.0-0.3 [facility] Comment on above: Performed By: #### T NS #### [facility] [address] [place] [address] Dr. Jose Elias Strong BAND % 1 % Normal 0-5 [facility] Comment on above: Performed By: #### T NS #### [facility] [address] [place] [address] Dr. Jose Elias Strong BASOM # 0.00 103/ul Normal 0.00-0.10 [facility] Comment on above: Performed By: #### T NS #### [facility] [address] [address] [address] Jose Elias Strong BASOM % 0.0 % Critically low 0.2-2.0 [facility] Comment on above: Performed By: #### T NS #### [facility] [address] [address] [address] Jose Elias Strong BLAST # Normal [facility] Comment on above: Performed By: #### T NS #### [facility] [address] [address] [address] Jose Elias Strong BLAST % Normal [facility] Comment on above: Performed By: #### T NS #### [facility] [address] [address] [address] Jose Elias Strong CORRECTED WBC Normal 4.0-11.0 [facility] Comment on above: Performed By: #### T NS #### [facility] [address] [place] [address] Dr. Jose Elias Strong EOS # 0.00 103/ul Normal 0.00-0.70 [facility] Comment on above: Performed By: #### T NS #### [facility] [address] [address] [address] Jose Elias Strong EOS% 0.0 % Critically low 0.9-7.0 [facility] Comment on above: Performed By: #### T NS #### [facility] [address] [place] [address] Dr. Jose Elias Strong HCT 27.5 % Critically low 36.0-48.0 [facility] Comment on above: Performed By: #### T NS #### [facility] [address] [place] [address] Dr. Jose Elias Strong HGB 8.1 g/dl Critically low 12.0-16.0 [facility] Comment on above: Performed By: #### T NS #### [facility] [address] [place] [address] Dr. Jose Elias Strong LYMPHM # 1.62 103/ul Normal 1.20-3.80 [facility] Comment on above: Performed By: #### T NS #### [facility] [address] [address] [address] Jose Elias Strong LYMPHM% 9.0 % Critically low 20.5-60.0 [facility] Comment on above: Performed By: #### T NS #### [facility] [address] [place] [address] Dr. Jose Elias Strong MCH 22.2 pg Critically low 26.7-34.0 [facility] Comment on above: Performed By: #### T NS #### [facility] [address] [place] [address] Dr. Jose Elias Strong MCHC 29.5 g/dl Critically low 29.9-35.2 [facility] Comment on above: Performed By: #### T NS #### [facility] [address] [place] [address] Dr. Jose Elias Strong MCV 75.3 fL Critically low 81.0-99.0 [facility] Comment on above: Performed By: #### T NS #### [facility] [address] [place] [address] Dr. Jose Elias Strong METAMYELOCYTE # Normal [facility] Comment on above: Performed By: #### T NS #### [facility] [address] [place] [address] Dr. Jose Elias Strong METAMYELOCYTE % Normal [facility] Comment on above: Performed By: #### T NS #### [facility] [address] [place] [address] Dr. Jose Elias Strong MONOM# 1.62 103/ul Critically high 0.30-0.80 [facility] Comment on above: Performed By: #### T NS #### [facility] [address] [place] [address] Dr. Jose Elias Strong MONOM% 9.0 % Normal 1.7-12.0 [facility] Comment on above: Performed By: #### T NS #### [facility] [address] [place] [address] Dr. Jose Elias Strong MPV 9.6 fL Normal 9.5-13.5 [facility] Comment on above: Performed By: #### T NS #### [facility] [address] [address] [address] Jose Elias Strong MYELOCYTE # Normal [facility] Comment on above: Performed By: #### T NS #### [facility] [address] [address] [address] Jose Elias Strong MYELOCYTE % Normal [facility] Comment on above: Performed By: #### T NS #### [facility] [address] [address] [address] Jose Elias Strong NRBC Normal [facility] Comment on above: Performed By: #### T NS #### [facility] [address] [address] [address] Jose Elias Strong PLT 308 103/ul Normal 150-450 [facility] Comment on above: Performed By: #### T NS #### [facility] [address] [address] [address] Jose Elias Strong RBC 3.65 106/ul Critically low 4.20-5.40 [facility] Comment on above: Performed By: #### T NS #### [facility] [address] [address] [address] Jose Elias Strong RDW 15.7 % Critically high 11.0-15.0 [facility] Comment on above: Performed By: #### T NS #### [facility] [address] [address] [address] Jose Elias Strong SEG # 14.58 103/ul Critically high 1.40-6.50 [facility] Comment on above: Performed By: #### T NS #### [facility] [address] [address] [address] Jose Elias Strong SEG % 81.0 % Critically high 43.0-75.0 [facility] Comment on above: Performed By: #### T NS #### [facility] [address] [address] [address] Jose Elias Strong WBC 18.0 103/ul Critically high 4.0-11.0 [facility] Comment on above: Performed By: #### T NS #### [facility] [address] [address] [address] Jose Elias Strong DRUG SCREEN RAPID (URINE)on 08-20-2021 AMP Negative Normal NEGATIVE [facility] Comment on above: Performed By: #### T NS #### [facility] [address] [address] [address] Jose Elias Strong BAR Negative Normal NEGATIVE [facility] Comment on above: Performed By: #### T NS #### [facility] [address] [address] [address] Jose Elias Strong BUP Negative Normal NEGATIVE [facility] Comment on above: Performed By: #### T NS #### [facility] [address] [place] [address] Dr. Jose Elias Strong BZO Negative Normal NEGATIVE [facility] Comment on above: Performed By: #### T NS #### [facility] [address] [place] [address] Dr. Jose Elias Strong PAXTON Negative Normal NEGATIVE [facility] Comment on above: Performed By: #### T NS #### [facility] [address] [place] [address] Dr. Jose Elias Strong CUT-OFFS SEE BELOW Normal [facility] Comment on above: Result Comment: AMP (Amphetamine): 500ng/mL, BAR (Barbituates): 200 ng/mL, BZO (Benzodiazepines): 150 ng/mL, BUP (Buprenorphine): 10 ng/mL, PAXTON (Cocaine): 150 ng/mL, mAMP (Methamphetamine): 500 ng/mL, MTD (Methadone): 200 ng/mL, OPI (Opiates): 100 ng/mL, OXY (Oxycodone): 100 ng/mL, PCP (Phencyclidine): 25 ng/mL, PPX (Propoxyphene): 300 ng/mL, THC (Cannabinoids): 50 ng/mL, TCA (Trycyclic Antidepressants): 300 ng/mL Performed By: #### T NS #### [facility] [address] [place] [address] Dr. Jose Elias Strong DRUG CUT HEADER DRUG CLASS TEST SYSTEM CUT-OFF CONCENTRATIONS ARE FOLLOWS: Normal [facility] Comment on above: Performed By: #### T NS #### [facility] [address] [place] [address] Dr. Jose Elias Strong mAMP Negative Normal NEGATIVE [facility] Comment on above: Performed By: #### T NS #### [facility] [address] [place] [address] Dr. Jose Elias Strong MTD Negative Normal NEGATIVE [facility] Comment on above: Performed By: #### T NS #### [facility] [address] [place] [address] Dr. Jose Elias Strong OPI Negative Normal NEGATIVE [facility] Comment on above: Performed By: #### T NS #### [facility] [address] [place] [address] Dr. Jose Elias Strong OXY Negative Normal NEGATIVE [facility] Comment on above: Performed By: #### T NS #### [facility] [address] [place] [address] Dr. Jose Elias Strong PCP Negative Normal NEGATIVE [facility] Comment on above: Performed By: #### T NS #### [facility] [address] [place] [address] Dr. Jose Elias Strong PPX Negative Normal NEGATIVE [facility] Comment on above: Performed By: #### T NS #### [facility] [address] [place] [address] Dr. Jose Elias Strong TCA Negative Normal NEGATIVE [facility] Comment on above: Performed By: #### T NS #### [facility] [address] [place] [address] Dr. Jose Elias Strong THC Negative Normal NEGATIVE [facility] Comment on above: Performed By: #### T NS #### [facility] [address] [place] [address] Dr. Jose Elias Strong UA (CLEAN/CATCH) ACID DUMPER/MICRO I F IND.on 08-20-2021 Bilirubin Ql (U) Negative Normal NEGATIVE [facility] Comment on above: Performed By: #### U MICRO, UACSIND #### [facility] [address] [place] [address] Dr. Jose Elias Strong Clarity (U) SL CLOUDY Abnormal CLEAR [facility] Comment on above: Performed By: #### U MICRO, UACSIND #### [facility] [address] [address] [address] Jose Elias Strong Color (U) RED Abnormal YELLOW [facility] Comment on above: Performed By: #### U MICRO, UACSIND #### [facility] [address] [address] [address] Jose Elias Strong Glucose Ql (U) Negative Normal NEGATIVE [facility] Comment on above: Performed By: #### U MICRO, UACSIND #### [facility] [address] [address] [address] Jose Elias Strong Hemoglobin Ql (U) LARGE Abnormal NEGATIVE [facility] Comment on above: Performed By: #### U MICRO, UACSIND #### [facility] [address] [address] [address] Jose Elias Strong Ketones Ql (U) 15 mg/dl Abnormal NEGATIVE [facility] Comment on above: Performed By: #### U MICRO, UACSIND #### [facility] [address] [address] [address] Jose Elias Strong LEUKOCYTES TRACE Abnormal NEGATIVE [facility] Comment on above: Performed By: #### U MICRO, UACSIND #### [facility] [address] [address] [address] Jose Elias Strong Nitrite Ql (U) Negative Normal NEGATIVE [facility] Comment on above: Performed By: #### U MICRO, UACSIND #### [facility] [address] [address] [address] Jose Elias Strong pH (U) 7.0 [pH] Normal 5-9 [facility] Comment on above: Performed By: #### U MICRO, UACSIND #### [facility] [address] [address] [address] Jose Elias Strong SPEC GRAVITY 1.020 Normal 1.005-<=1.025 [facility] Comment on above: Performed By: #### U MICRO, UACSIND #### [facility] [address] [address] [address] Jose Elias Strong UA PROTEIN 30 mg/dl Abnormal NEGATIVE/ TRACE [facility] Comment on above: Performed By: #### U MICRO, UACSIND #### [facility] [address] [place] [address] Dr. Jose Elias Strong UR MICRO IND INDICATED Normal [facility] Comment on above: Performed By: #### U MICRO, UACSIND #### [facility] [address] [place] [address] Dr. Jose Elias Strong Urobilinogen Qn (U) 0.2 {Mago'U}/dL Normal 0.2 - 1. 0 [facility] Comment on above: Performed By: #### U MICRO, UACSIND #### [facility] [address] [place] [address] Dr. Jose Elias Strong URINE MICROSCOPIC ONLYon BACTERIA NONE SEEN Normal NONE SEEN [facility] Comment on above: Performed By: #### U MICRO, UACSIND #### [facility] [address] [place] [address] Dr. Jose Elias Strong Bacteria identified Cx Nom (U) NOT INDICATED Normal [facility] Comment on above: Performed By: #### U MICRO, UACSIND #### [facility] [address] [place] [address] Dr. Jose Elias Strong CAST NONE SEEN Normal NONE SEEN [facility] Comment on above: Performed By: #### U MICRO, UACSIND #### [facility] [address] [place] [address] Dr. Jose Elias Strong Crystals LM Nom (Urine sed) NONE SEEN Normal NONE SEEN [facility] Comment on above: Performed By: #### U MICRO, UACSIND #### [facility] [address] [place] [address] Dr. Jose Elias Strong Epithelial cells LM Ql (Urine sed) NONE SEEN Normal NONE SEEN /RARE [facility] Comment on above: Performed By: #### U MICRO, UACSIND #### [facility] [address] [place] [address] Dr. Jose Elias Strong MUCOUS NONE SEEN Normal NONE SEEN [facility] Comment on above: Performed By: #### U MICRO, UACSIND #### [facility] [address] [address] [address] Jose Elias Strong RBC (U) [#/Vol] /uL Abnormal 0-2 [facility] Comment on above: Performed By: #### U MICRO, UACSIND #### [facility] [address] [address] [address] Jose Elias Strong WBC 0-2 Abnormal NONE SEEN [facility] Comment on above: Performed By: #### U MICRO, UACSIND #### [facility] [address] [address] [address] Jose Elias Strong CBC AUTO DIFFon 08-19-2021 BASO # 0.0 103/ul Normal 0.0-0.1 [facility] Comment on above: Performed By: #### T NS #### [facility] [address] [address] [address] Jose Elias Strong Basophils/100 WBC (Bld) 0.2 % Normal 0.2-2.0 [facility] Comment on above: Performed By: #### T NS #### [facility] [address] [address] [address] Jose Elias Strong EO # 0.1 103/ul Normal 0.0-0.7 [facility] Comment on above: Performed By: #### T NS #### [facility] [address] [address] [address] Jose Elias Strong Eosinophils/100 WBC (Bld) 0.7 % Critically low 0.9-7.0 [facility] Comment on above: Performed By: #### T NS #### [facility] [address] [address] [address] Jose Elias Strong Erythrocyte distribution width (RBC) [Ratio] 15.9 % Critically high 11.0-15.0 [facility] Comment on above: Performed By: #### T NS #### [facility] [address] [address] [address] Jose Elias Strong Hematocrit (Bld) [Volume fraction] 32.4 % Critically low 36.0-48.0 [facility] Comment on above: Performed By: #### T NS #### [facility] [address] [address] [address] Jose Elias Strong Hemoglobin (Bld) [Mass/Vol] 9.7 g/dL Critically low 12.0-16.0 [facility] Comment on above: Performed By: #### T NS #### [facility] [address] [place] [address] Dr. Jose Elias Strong IG # 0.19 10e3/ul Critically high 0.00-0.03 [facility] Comment on above: Performed By: #### T NS #### [facility] [address] [place] [address] Dr. Jose Elias Strong IG % 1.4 % Critically high 0.0-0.5 [facility] Comment on above: Performed By: #### T NS #### [facility] [address] [place] [address] Dr. Jose Elias Strong LYMPH # 1.9 103/ul Normal 1.2-3.8 [facility] Comment on above: Performed By: #### T NS #### [facility] [address] [place] [address] Dr. Jose Elias Strong Lymphocytes/100 WBC (Bld) 14.4 % Critically low 20.5-60.0 [facility] Comment on above: Performed By: #### T NS #### [facility] [address] [place] [address] Dr. Jose Elias Strong MANUAL DIFF REQ NO Normal [facility] Comment on above: Performed By: #### T NS #### [facility] [address] [place] [address] Dr. Jose Elias Strong MCH (RBC) [Entitic mass] 22.3 pg Critically low 26.7-34.0 [facility] Comment on above: Performed By: #### T NS #### [facility] [address] [place] [address] Dr. Jose Elias Strong MCHC (RBC) [Mass/Vol] 29.9 g/dL Normal 29.9-35.2 [facility] Comment on above: Performed By: #### T NS #### [facility] [address] [address] [address] Jose Elias Strong MCV (RBC) [Entitic vol] 74.5 fL Critically low 81.0-99.0 [facility] Comment on above: Performed By: #### T NS #### [facility] [address] [address] [address] Jose Elias Strong MONO # 1.4 103/ul Critically high 0.3-0.8 [facility] Comment on above: Performed By: #### T NS #### [facility] [address] [place] [address] Dr. Jose Elias Strong Monocytes/100 WBC (Bld) 10.1 % Normal 1.7-12.0 [facility] Comment on above: Performed By: #### T NS #### [facility] [address] [place] [address] Dr. Jose Elias Strong NEUT # 9.8 103/ul Critically high 1.4-6.5 [facility] Comment on above: Performed By: #### T NS #### [facility] [address] [place] [address] Dr. Jose Elias Strong Neutrophils/100 WBC (Bld) 73.2 % Normal 43.0-75.0 [facility] Comment on above: Performed By: #### T NS #### [facility] [address] [place] [address] Dr. Jose Elias Strong Platelet mean volume (Bld) [Entitic vol] 10.0 fL Normal 9.5-13.5 [facility] Comment on above: Performed By: #### T NS #### [facility] [address] [place] [address] Dr. Jose Elias Strong PLT 337 103/ul Normal 150-450 [facility] Comment on above: Performed By: #### T NS #### [facility] [address] [place] [address] Dr. Jose Elias Strong RBC 4.35 106/ul Normal 4.20-5.40 [facility] Comment on above: Performed By: #### T NS #### [facility] Laboratory [address] [address] [address] Jose Elias Strong WBC 13.4 103/ul Critically high 4.0-11.0 [facility] Comment on above: Performed By: #### T NS #### [facility] [address] [place] [address] Dr. Jose Elias Strong Covid-19 PCR (CVDTB)on 08-03 SARS-CoV-2 (COVID-19) RNA [place]+probe Ql (Unsp spec) Not detected Normal NOT DETECTED [facility] Comment on above: Result Comment: When [...] for this test is supported by the [place] of Health and Human Service's declaration that [...] used). Performed By: #### C VDTBH #### [facility] [address] [place] [address] Dr. Jose Elias Strong TYPE AND SCREENon 08-19-2021 TYPE AND SCREEN Negative Normal [facility] Comment on above: Performed By: #### T NS #### [facility] [address] [place] [address] Dr. Jose Elias Strong GROUP B STREP CULTUREon 07-05 S. agalactiae Ag Ql (Unsp spec) Culture Observations: NEGATIVE FOR GROUP B STREPTOCOCCUS. Normal [facility] Comment on above: Performed By: #### G BSCX #### [facility] [address] [place] [address] Dr. Jose Elias Strong UA (CLEAN/CATCH) ACID DUMPER/MICRO I F IND.on 06-28-2021 Bilirubin Ql (U) Negative Normal NEGATIVE [facility] Comment on above: Performed By: #### U ACSIND, UMICRO #### [facility] [address] [address] [address] Jose Elias Strong Clarity (U) CLEAR Normal CLEAR [facility] Comment on above: Performed By: #### U ACSIND, UMICRO #### [facility] [address] [address] [address] Jose Elias Strong Color (U) LT. YELLOW Normal YELLOW [facility] Comment on above: Performed By: #### U ACSIND, UMICRO #### [facility] [address] [place] [address] Dr. Jose Elias Strong Glucose Ql (U) Negative Normal NEGATIVE [facility] Comment on above: Performed By: #### U ACSIND, UMICRO #### [facility] [address] [place] [address] Dr. Jose Elias Strong Hemoglobin Ql (U) Negative Normal NEGATIVE [facility] Comment on above: Performed By: #### U ACSIND, UMICRO #### [facility] [address] [place] [address] Dr. Jose Elias Strong Ketones Ql (U) Negative Normal NEGATIVE [facility] Comment on above: Performed By: #### U ACSIND, UMICRO #### [facility] [address] [place] [address] Dr. Jose Elias Strong LEUKOCYTES TRACE Abnormal NEGATIVE [facility] Comment on above: Performed By: #### U ACSIND, UMICRO #### [facility] [address] [place] [address] Dr. Jose Elias Strong Nitrite Ql (U) Negative Normal NEGATIVE [facility] Comment on above: Performed By: #### U ACSIND, UMICRO #### [facility] [address] [place] [address] Dr. Jose Elias Strong pH (U) 6.5 [pH] Normal 5-9 [facility] Comment on above: Performed By: #### U ACSIND, UMICRO #### [facility] [address] [address] [address] Jose Elias Strong SPEC GRAVITY 1.015 Normal 1.005-<=1.025 [facility] Comment on above: Performed By: #### U ACSMICHAEL UMICRO #### [facility] [address] [address] [address] Jose Elias Strong UA PROTEIN Negative Normal NEGATIVE/ TRACE [facility] Comment on above: Performed By: #### U ACSMICHAEL UMICRO #### [facility] [address] [place] [address] Dr. Jose Elias Strong UR MICRO IND INDICATED Normal [facility] Comment on above: Performed By: #### U ACSMICHAEL UMICRO #### [facility] [address] [place] [address] Dr. Jose Elias Strong Urobilinogen Qn (U) 0.2 {Mago'U}/dL Normal 0.2 - 1. 0 [facility] Comment on above: Performed By: #### U ACSMICHAEL UMICRO #### [facility] [address] [place] [address] Dr. Jose Elias Strong URINE MICROSCOPIC ONLYon AMORPHOUS CRYSTALS FEW Normal [facility] Comment on above: Performed By: #### U ACSMICHAEL UMICRO #### [facility] [address] [place] [address] Dr. Jose Elias Strong BACTERIA TRACE Abnormal NONE SEEN [facility] Comment on above: Performed By: #### U ACSMICHAEL UMICRO #### [facility] [address] [place] [address] Dr. Jose Elias Strong Bacteria identified Cx Nom (U) NOT INDICATED Normal [facility] Comment on above: Performed By: #### U ACSMICHAEL UMICRO #### [facility] [address] [place] [address] Dr. Jose Elias Strong CAST NONE SEEN Normal NONE SEEN [facility] Comment on above: Performed By: #### U ACSMICHAEL UMICRO #### [facility] [address] [place] [address] Dr. Jose Elias Strong Crystals LM Nom (Urine sed) SEEN Abnormal NONE SEEN [facility] Comment on above: Performed By: #### U ACSIND, UMICRO #### [facility] [address] [place] [address] Dr. Jose Elias Strong Epithelial cells LM Ql (Urine sed) RARE Normal NONE SEEN /RARE [facility] Comment on above: Performed By: #### U ACSIND, UMICRO #### [facility] [address] [place] [address] Dr. Jose Elias Strong MUCOUS TRACE Abnormal NONE SEEN [facility] Comment on above: Performed By: #### U ACSIND, UMICRO #### [facility] [address] [place] [address] Dr. Jose Elias Strong RBC 0-2 Normal 0-2 [facility] Comment on above: Performed By: #### U ACSMICHAEL, UMICRO #### [facility] [address] [place] [address] Dr. Jose Elias Strong WBC 2-5 Abnormal NONE SEEN [facility] Comment on above: Performed By: #### U ACSMICHAEL, UMICRO #### [facility] [address] [place] [address] Dr. Jose Elias Strong CBC AUTO DIFFon 06-19-2021 BASO # 0.0 103/ul Normal 0.0-0.1 [facility] Comment on above: Performed By: #### C BC #### [facility] [address] [place] [address] Dr. Jose Elias Strong Basophils/100 WBC (Bld) 0.3 % Normal 0.2-2.0 [facility] Comment on above: Performed By: #### C BC #### [facility] [address] [place] [address] Dr. JoseE lias Strong EO # 0.2 103/ul Normal 0.0-0.7 [facility] Comment on above: Performed By: #### C BC #### [facility] [address] [place] [address] Dr. Jose Elias Strong Eosinophils/100 WBC (Bld) 2.0 % Normal 0.9-7.0 [facility] Comment on above: Performed By: #### C BC #### [facility] [address] [address] [address] Jose Elias Strong Erythrocyte distribution width (RBC) [Ratio] 13.6 % Normal 11.0-15.0 [facility] Comment on above: Performed By: #### C BC #### [facility] [address] [place] [address] Dr. Jose Elias Strong Hematocrit (Bld) [Volume fraction] 29.4 % Critically low 36.0-48.0 [facility] Comment on above: Performed By: #### C BC #### [facility] [address] [place] [address] Dr. Jose Elias Strong Hemoglobin (Bld) [Mass/Vol] 9.5 g/dL Critically low 12.0-16.0 [facility] Comment on above: Performed By: #### C BC #### [facility] [address] [place] [address] Dr. Jose Elias Strong IG # 0.14 10e3/ul Critically high 0.00-0.03 [facility] Comment on above: Performed By: #### C BC #### [facility] [address] [place] [address] Dr. Jose Elias Strong IG % 1.4 % Critically high 0.0-0.5 [facility] Comment on above: Performed By: #### C BC #### [facility] [address] [place] [address] Dr. Jose Elias Strong LYMPH # 1.6 103/ul Normal 1.2-3.8 [facility] Comment on above: Performed By: #### C BC #### [facility] [address] [place] [address] Dr. Jose Elias Strong Lymphocytes/100 WBC (Bld) 15.5 % Critically low 20.5-60.0 [facility] Comment on above: Performed By: #### C BC #### [facility] [address] [place] [address] Dr. Jose Elias Strong MANUAL DIFF REQ NO Normal [facility] Comment on above: Performed By: #### C BC #### [facility] [address] [address] [address] Jose Elias Strong MCH (RBC) [Entitic mass] 26.8 pg Normal 26.7-34.0 [facility] Comment on above: Performed By: #### C BC #### [facility] [address] [address] [address] Jose Elias Strong MCHC (RBC) [Mass/Vol] 32.3 g/dL Normal 29.9-35.2 [facility] Comment on above: Performed By: #### C BC #### [facility] [address] [address] [address] Jose Elias Strong MCV (RBC) [Entitic vol] 82.8 fL Normal 81.0-99.0 [facility] Comment on above: Performed By: #### C BC #### [facility] [address] [place] [address] Dr. Jose Elias Strong MONO # 1.2 103/ul Critically high 0.3-0.8 [facility] Comment on above: Performed By: #### C BC #### [facility] [address] [address] [address] Jose Elias Strong Monocytes/100 WBC (Bld) 12.2 % Critically high 1.7-12.0 [facility] Comment on above: Performed By: #### C BC #### [facility] [address] [place] [address] Dr. Jose Elias Strong NEUT # 7.0 103/ul Critically high 1.4-6.5 [facility] Comment on above: Performed By: #### C BC #### [facility] [address] [place] [address] Dr. Jose Elias Strong Neutrophils/100 WBC (Bld) 68.6 % Normal 43.0-75.0 [facility] Comment on above: Performed By: #### C BC #### [facility] [address] [place] [address] Dr. Jose Elias Strong Platelet mean volume (Bld) [Entitic vol] 9.1 fL Critically low 9.5-13.5 [facility] Comment on above: Performed By: #### C BC #### [facility] [address] [address] [address] Jose Elias Strong PLT 309 103/ul Normal 150-450 [facility] Comment on above: Performed By: #### C BC #### [facility] [address] [address] [address] Jose Elias Strong RBC 3.55 106/ul Critically low 4.20-5.40 [facility] Comment on above: Performed By: #### C BC #### [facility] [address] [address] [address] Jose Elias Strong WBC 10.1 103/ul Normal 4.0-11.0 [facility] Comment on above: Performed By: #### C BC #### [facility] [address] [address] [address] Jose Elias Strong GLYCOHEMOGLOBIN A1Con 2021 ADA RECOMMENDATION ADA THERAPEUTIC TARGET 6.0 - 7.0 ACTION SUGGESTED > 7.0 Normal [facility] Comment on above: Performed By: #### T NS #### [facility] [address] [address] [address] Jose Elias Strong Glucose [Mass/Vol] 97 mg/dL Normal [facility] Comment on above: Performed By: #### T NS #### [facility] [address] [address] [address] Jose Elias Strong HbA1c (Bld) [Mass fraction] 5.0 % Normal <=6.0 [facility] Comment on above: Performed By: #### T NS #### [facility] [address] [address] [address] Jose Elias Strong Consenton 10-24-2020 Consent [id number] .00CD:127 Normal [facility] In office Testingon 10-25-19 21 In office Testing [id number] 1.00CD:127 Normal [facility] Registrationon 10-24-2020 Registration [id number] .00CD:127 [facility] Registration [id number] .00CD:127 [facility] Vital Signs Date Time Vital Sign Value Performing Clinician Leslie garrett 06-12-2023 11:020500 Body mass index (BMI) [Ratio] 30.26 kg/m2 Mary Venkat DO Work Phone: [facility] 06-12-2023 11:02-050 Body weight 77.47 kg Mary Venkat DO Work Phone: [facility] 06-12-2023 11:02-0500 Diastolic blood pressure 70 mm[Hg] Mary Venkat DO Work Phone: [facility] 06-12-2023 11:02-0500 Systolic blood pressure 118 mm[Hg] Mary Venkat DO Work Phone: [facility] Encounters Encounter Date Encounter Type Care Provider Facility Start: 06-12-2023 End: 06-12-2023 ambulatory MARY VENKAT Not Available Start: 06-12-2023 End: 06-12-2023 Office outpatient visit 15 minutes Mary Venkat DO Work Phone: [facility] Comment on above: Third trimester preg jun Start: 05-29-2023 End: 05-29-2023 ambulatory ERIKA CHAN Not Available Start: 04-23-2023 End: 04-23-2023 ambulatory MARY VENKAT Not Available Start: 03-19-2023 End: 03-19-2023 ambulatory MARY VENKAT Not Available Start: 12-10-2022 ambulatory ALEXANDER Myers [facility] Start: 11-19-2022 End: 11-19-2022 ambulatory YOMAIRA LAWLER [facility] Start: 10-28-2022 End: 10-29-20[facility] Start: 08-29-2022 ambulatory YOMAIRA LAWLER [facility] Start: 08-19-2022 End: 08-19-2022 Emergency department patient visit YOMAIRA LAWLER [facility] Start: 08-08-2022 End: 08-08-2022 Emergency department patient visit JERRY WALLS [facility] Start: 06-04-2022 End: 06-04-2022 ambulatory [...] Start: 06-19-2021 End: 06-20-[address] MARY ROBLEDO Facility:[facility] Procedures Date Procedure Procedure Detail Performing Clinician Start: 06-12-2023 Urnls dip stick/tabl et rgnt non-auto w/o micrscp Mary Robledo DO Work Phone: Start: 08-19-2021 Delivery of Products of Conception, External Approach DR MARY ROBLEDO Plan of Treatment Date Care Activity Detail Author Start: 06-24-2023 End: 06-24-2023 Patient encounter procedure 06/24/2023 1:00 PM EST Routine [facility] [address] [place] [id number] Erika Chan PA [address] [place] [address] [facility] Payers Date Payer Category Payer Medicaid [id number] 2022 Medicaid [employer] [place] [id number] 2022-Present [address] [place] [address] [id number] 1995 Unknown [id number] 2.16.840.1.002299.3.579.2.593 1995 Unknown [id number] 2.16.840.1.487982.3.579.2.593 1995 Unknown [id number] 2.16.840.1.979856.3.579.2.593 1995 Unknown [id number] 2.16.840.1.962642.3.579.2.593 1995 Unknown [id number] 2.16.840.1.244542.3.579.2.593 1995 Unknown [id number] 2.16.840.1.822394.3.579.2.593 1995 Unknown [id number] 2.16.840.1.128123.3.579.2.593 1995 Unknown [id number] 2.16.840.1.215707.3.579.2.593 1995 Unknown [id number] 2.16.840.1.683596.3.579.2.121 1995 Unknown [id number] 2.16.840.1.953910.3.579.2.1212 1995 Unknown [id number] 2.16.840.1.920982.3.579.2.121 1995 Unknown [id number] 2.16.840.1.577066.3.579.2.1212 1995 Unknown [id number] 2.16.840.1.241667.3.579.2.1212 1995 Unknown [id number] 2.16.840.1.625951.3.579.2.1213 1995 Unknown [id number] 2.16.840.1.736487.3.579.2.9 1995 Unknown [id number] 2.16.840.1.621350.3.579.2.9 1995 Unknown [id number] 2.16.840.1.755597.3.579.2.9 1995 Unknown [id number] 2.16.840.1.427411.3.579.2.1259 1959 Unknown [id number] Social History Date Type Detail Facility Start: 10-21-2022 Tobacco smoking stat [facility] Never smoked tobacco [facility] Start: 10-21-2022 [...] Ambulatory Problems Diagnosis Date Noted Acute asthma ([facility]) 12/03/2022 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 12/03/2022 Neck swelling 08/19/2022 Schizoaffective disorder ([facility]) 12/03/2022 Resolved Ambulatory Problems Diagnosis Date Noted No Resolved Ambulatory Problems Past Medical History: Diagnosis Date BMI 24.0-24.9, adult Depot contraception Encounter for IUD insertion Encounter for Papanicolaou cervical smear to confirm findings of recent normal smear following initial abnormal smear Intrauterine device surveillance Schizo-affective psychosis ([facility]) Urine test negative Family History Problem Relation [...] nursing note reviewed. Exam conducted with a associate professor of law present. Vitals: Estimated body mass index is [...] section and content) DATE CREATED AUTHOR 10/25/2020 [facility] DATE CREATED AUTHOR AUTHOR'S ORGANIZ ATION 06/11/2022 [facility] DATE CREATED AUTHOR AUTHOR'S ORGANIZ ATION 12/16/2022 [facility] DATE CREATED AUTHOR AUTHOR'S ORGANIZ ATION 06/13/2023 [facility] EPIC Reason for Visit [...] BE BASED ON THE PRIMARY CLINICAL RECORDS. [employer] provides no warranty or guarantee of the accuracy or completeness of information in this document.
[2023-06-20 16:53] VITALS: BP 114/69; PULSE 97
== END 2023-06-20 17:30 | disposition home or self-care (01) ==
LOC: FBCO 07:45 → FBC 16:48
PROVIDERS: PCP Family Medicine; Visit Provider Obstetrics & Gynecology
DX: O36.63X1 Maternal care for excessive fetal growth, third trimester, fetus 1 (principal)
CPT/HCPCS: 59025

== ENCOUNTER 2023-06-24 07:48 | Outpatient (OUT) | payer OTHER, SELFPAY ==
--- NOTE | 2023-06-24 | US_ITS ---
[address] [address] Patient Name: KRISSY LOPEZ MRN: [id number] date: 1995 Sex: F Assigned Patient Location: [facility] Current Patient Location: Accession/Order Number: [id number] Exam Date: 06/24/2023 11:20 Report Date: 06/24/2023 12:07 At the request of: MARY MARIE Procedure: US OB BPP w non-stress EXAMINATION: US OB BPP w non-stress HISTORY: EXCESSIVE GROWTH [id number] COMPARISON: Ultrasound OB biophysical 06/17/2023 TECHNIQUE: Ultrasound biophysical profile was performed in the radiology department. BREATHING MOVEMENTS: 2.0 GROSS BODY MOVEMENTS: 2.0 TONE: 2.0 QUALITATIVE AMNIOTIC FLUID VOLUME: 2.0 PRESENTATION: TRANSVERSE HEART RATE: 135.0 bpm bpm. AMNIOTIC FLUID VOLUME: 27.1 cm (95th percentile is 24.8 cm) GESTATIONAL AGE: 34 weeks 1 days CONCLUSION: 1. Total biophysical profile score 8.0. 2. Polyhydramnios. Electronically authenticated by: ERNST MURPHY Date: 06/24/2023 12:07
--- OUTSIDE RECORDS SUMMARY | 2023-06-24 07:52 | XMS_ITS | CCD ---
Author Name Unknown Address [address] [facility] [address] [facility] [address] [place] [address] Organization [facility] Care Team Providers Care Rehabilitation Case Coordinator Name Role Phone VENKAT, DR HERNANDEZ Admitting [...] Translations: [LATEX] Drug allergy (disorder) [address] [facility] Repository (2 sources) Leucine; Translations: [NICKEL] Drug Allergy [address] [facility] Repository (2 sources) Penicillins; Translations: [PENICILLINS] Drug allergy (disorder) [address] [facility] Repository (1 source) Shellfish Drug allergy (disorder) [address] [facility] Repository (2 sources) Iodine; Translations: [IODINE] Drug Allergy 3 [facility] Repository (1 source) SHELLFISH CONTAINING PRODUCTS; Translations: [SHELLFISH CONTAINING PRODUCTS] Propensity to adverse reactions to drug (disorder) 3 [facility] Repository (1 source) VENOM-HONEY BEE; Translations: [VENOM-HONEY BEE] Propensity to adverse reactions to drug (disorder) 3 [facility] Repository (1 source) Amoxicillin Drug Allergy 3 Unknown [facility] (1 source) Bee pollen Allergy to substance 3 Unknown [facility] (1 source) Honey bee venom Propensity to adverse reactions 3 [facility] (1 source) Latex Allergy to substance 3 Unknown [facility] (1 source) nickel sulfate Drug Allergy 3 [facility] (1 source) Penicillin G Drug Allergy 3 Unknown [facility] (1 source) Shellfish-Derive d Products Drug Allergy 3 Unknown [facility] Medications Current Medications Medication Drug Class(es) Dates Sig (Normalized) Sig (Original) [id number] 200 actuat albuterol 0.09 mg/actuat metered dose [...] sexual mode of transmission complicating childbirth; Translations: [[facility] INF SEXL TRNSMS COMP CHILDBIRTH] Onset: 08-19-2021 Episodic Other complications of ; puerperium affecting management of mother (1 source) Other mental disorders complicating childbirth; Translations: [[facility] MENTAL D/O COMP CHILDBIRTH] Onset: 08-30-2021 Episodic Other complications of (4 sources) Other specified related conditions, third trimester; Translations: [[facility] SPEC PREG RELATED COND 3RD TRI] Onset: [...] UA Negative Negative - 4(70) +++ mg/dL [facility] Blood, UA Negative Negative - 50 Yovany/mcL [facility] Clarity, UA Clear [facility] Color, UA Yellow [facility] Glucose, UA Negative Negative - 2000(110) ++++ mg/dL [facility] Interpretation and review of laboratory results Abnormal [facility] Ketones, UA Negative Negative - 160(16) ++++ mg/dL [facility] Leukocytes, UA Positive Negative - 500+++ Jamey/mcL [facility] Nitrite, UA Negative Negative - Positive [facility] pH, UA 5.5 5 - 9 [facility] Protein, UA Positive Negative - 2000(20) ++++ mg/dL [facility] Spec Grav, UA 1.020 1 - 1.03 [facility] Urobilinogen, UA 1.0 0.2 - 12 mg/dL [facility] HCG, Urineon 11-19-2022 Beta HCG ( test) Ql (U) Negative Normal [facility] Comment on above: Order Comment: The c alculated GFR uses the (IDMS)-traceable creatinine MDRD equation and is reported in mL/min/1.73 square meters. This formula is not recommended for use with individuals with unstable creatinine concentrations, extremes in muscle mass and/or body size, or alternative diets and may not be suitable for all patient populations. Testing performed at [facility] Jose Elias [facility], [address] [place] [address] 05071 Result Comment: Note : This test provides only a presumptive diagnosis for . If the HCG result is inconsistent with clinical evidence, results should be confirmed with an alternative method, such as a quantitative HCG. Basic Metabolic Profileon ANIO 11 mmol/L Low 12-20 [facility] Comment on above: Order Comment: Testi ng performed at [facility], [address] [place] [address] 98592 Calcium [Mass/Vol] 9.5 mg/dL Normal 8.4-10.2 [facility] Comment on above: Order Comment: Testi ng performed at [facility], [address] [place] [address] 62557 Chloride [Moles/Vol] 107 mmol/L Normal 98-107 [facility] Comment on above: Order Comment: Testi ng performed at [facility], [address] [place] [address] 72877 CO2 [Moles/Vol] 23.0 mmol/L Normal 22.0-30.0 [facility] Comment on above: Order Comment: Testi ng performed at [facility], [address] [place] [address] 35642 Creatinine [Mass/Vol] 0.7 mg/dL Normal 0.6-1.2 [facility] Comment on above: Order Comment: Testi ng performed at [facility], [address] [place] [address] 35654 Glucose [Mass/Vol] 118 mg/dL High 74-106 [facility] Comment on above: Order Comment: Testi ng performed at [facility], [address] [place] [address] 07959 Potassium [Moles/Vol] 4.1 mmol/L Normal 3.3-4.9 [facility] Comment on above: Order Comment: Testi ng performed at [facility], [address] [place] [address] 13745 Sodium [Moles/Vol] 137 mmol/L Normal 137-145 [facility] Comment on above: Order Comment: Testi ng performed at [facility], [address] [place] [address] 67362 Urea nitrogen [Mass/Vol] 14 mg/dL Normal 8-19 [facility] Comment on above: Order Comment: Testi ng performed at [facility], [address] [place] [address] 11924 CBC w/Auto Diffon 08-19-2022 Basophils (Bld) [#/Vol] 0.04 10*3/uL Normal 0.00-0.10 [facility] Comment on above: Order Comment: Immature [...] is no longer indicated. Testing performed at [facility], [address] [place] [address] 09055 Eosinophils (Bld) [#/Vol] 0.05 10*3/uL Normal 0.00-0.40 [facility] Comment on above: Order Comment: Immature [...] is no longer indicated. Testing performed at [facility], [address] [place] [address] 07289 Erythrocyte distribution width (RBC) [Ratio] 13.3 % Normal 11.7-14.4 [facility] Comment on above: Order Comment: Immature [...] is no longer indicated. Testing performed at [facility], [address] [place] [address] 50233 Hematocrit (Bld) [Volume fraction] 36.1 % Normal 34.1-44.9 [facility] Comment on above: Order Comment: Immature [...] is no longer indicated. Testing performed at [facility], [address] [place] [address] 06688 Hemoglobin (Bld) [Mass/Vol] 12.0 g/dL Normal 11.2-15.7 [facility] Comment on above: Order Comment: Immature [...] is no longer indicated. Testing performed at [facility], [address] [place] [address] 74324 IG % (B) 0.6 % High 0.0-0.4 [facility] Comment on above: Order Comment: Immature [...] is no longer indicated. Testing performed at [facility], [address] [place] [address] 32952 IG# (B) 0.14 10*3/uL High 0.00-0.00 [facility] Comment on above: Order Comment: Immature [...] is no longer indicated. Testing performed at [facility], [address] [place] [address] 54269 Lymphocytes (Bld) [#/Vol] 0.81 10*3/uL Low 1.20-3.70 [facility] Comment on above: Order Comment: Immature [...] is no longer indicated. Testing performed at [facility], [address] [place] [address] 66121 MCH (RBC) [Entitic mass] 28.5 pg Normal 25.6-32.2 [facility] Comment on above: Order Comment: Immature [...] is no longer indicated. Testing performed at [facility], [address] [place] [address] 94040 MCHC (RBC) [Mass/Vol] 33.2 g/dL Normal 32.2-35.5 [facility] Comment on above: Order Comment: Immature [...] is no longer indicated. Testing performed at [facility], [address] [place] [address] 29530 MCV (RBC) [Entitic vol] 85.7 fL Normal 79.4-94.8 [facility] Comment on above: Order Comment: Immature [...] is no longer indicated. Testing performed at [facility], [address] [place] [address] 24508 Monocytes (Bld) [#/Vol] 1.81 10*3/uL High 0.20-0.90 [facility] Comment on above: Order Comment: Immature [...] is no longer indicated. Testing performed at [facility], [address] [place] [address] 92428 Neutrophils (Bld) [#/Vol] 20.04 10*3/uL High 1.60-6.10 [facility] Comment on above: Order Comment: Immature [...] is no longer indicated. Testing performed at [facility], [address] [place] [address] 39792 NRBC % (B) 0.0 /100{WBC} Normal 0.0-0.2 [facility] Comment on above: Order Comment: Immature [...] is no longer indicated. Testing performed at [facility], [address] [place] [address] 83070 NRBC# (B) 0.00 10*3/uL Normal 0.00-0.00 [facility] Comment on above: Order Comment: Immature [...] is no longer indicated. Testing performed at [facility], [address] [place] [address] 64930 Platelet mean volume (Bld) [Entitic vol] 9.9 fL Normal 9.4-12.3 [facility] Comment on above: Order Comment: Immature [...] is no longer indicated. Testing performed at [facility], [address] [place] [address] 75623 Platelets (Bld) [#/Vol] 267 10*3/uL Normal 182-369 [facility] Comment on above: Order Comment: Immature [...] is no longer indicated. Testing performed at [facility], [address] [place] [address] 54431 RBC (Bld) [#/Vol] 4.21 10*6/uL Normal 3.93-5.22 [facility] Comment on above: [...] is no longer indicated. Testing performed at [facility], [address] [place] [address] 13563 RDW-SD (B) 41.1 fL Normal 36.4-46.3 [facility] Comment on above: Order Comment: Immature [...] is no longer indicated. Testing performed at [facility], [address] [place] [address] 83091 WBC (Bld) [#/Vol] 22.9 10*3/uL High 4.0-10.0 [facility] Comment on [...] is no longer indicated. Testing performed at [facility], [address] [place] [address] NECK WITHOUT CONTRASTon 0 08-19-2022 CT [...] Salinas MD On: 08/19/2022 1:25 PM Normal [facility] EST Glomerular Filtration Ra jude 08-19-2022 EAGFR (B) >60 Normal >60 [facility] Comment on above: Order Comment: The c alculated GFR uses the (IDMS)-traceable creatinine MDRD equation and is reported in mL/min/1.73 square meters. This formula is not recommended for use with individuals with unstable creatinine concentrations, extremes in muscle mass and/or body size, or alternative diets and may not be suitable for all patient populations. Testing performed at [facility], [address] [place] [address] Result Comment: The reported eGFR is based on a non- patient, for Americans multiply the result by 1.212. HCG, Serumon 08-19-2022 HCGS Negative Normal [facility] Comment on above: Order Comment: Testi ng performed at [facility], [address] [place] [address] Result Comment: Note : This test provides only a presumptive diagnosis for . If the HCG result is inconsistent with clinical evidence, results should be confirmed with an alternative method, such as a quantitative HCG. Man Diffon 08-19-2022 Eos, Diff 2 % Normal 0-6 [facility] Comment on above: Order Comment: Testi ng performed at [facility], [facility] [place] [address] Lymphocytes/100 WBC (Bld) 3 % Low 20-53 [facility] Comment on above: Order Comment: Testi ng performed at [facility], [address] [place] [address] [place], Diff 6 % Normal 5-12 [facility] Comment on above: Order Comment: Testi ng performed at [facility], [address] [facility] [place] [address] Segs. Diff 89 % High 34-70 [facility] Comment on above: Order Comment: Testi ng performed at [facility], [address] [place] [address] Slide Scan Normal Normal Normal [facility] Comment on above: Order Comment: Testi ng performed at [facility], [address] [place] [address] Basic Metabolic Profileon ANIO 12 mmol/L Normal 12-20 [facility] Comment on above: Order Comment: Testi ng performed at [facility], [address] [place] [address] Calcium [Mass/Vol] 9.1 mg/dL Normal 8.4-10.2 [facility] Comment on above: Order Comment: [facility], [address] [place] [address] Chloride [Moles/Vol] 106 mmol/L Normal 98-107 [facility] Comment on above: Order Comment: Testi ng performed at [facility], [address] [place] [address] CO2 [Moles/Vol] 27.0 mmol/L Normal 22.0-30.0 [facility] Comment on above: Order Comment: Testi ng performed at [facility], [address] [place] [address] Creatinine [Mass/Vol] 0.6 mg/dL Normal 0.6-1.2 [facility] Comment on above: Order Comment: Testi ng performed at [facility], [address] [place] [address] Glucose [Mass/Vol] 95 mg/dL Normal 74-106 [facility] Comment on above: Order Comment: Testi ng performed at [facility], [address] [place] [address] Potassium [Moles/Vol] 4.1 mmol/L Normal 3.3-4.9 [facility] Comment on above: Order Comment: Testi ng performed at [facility], [address] [place] [address] Sodium [Moles/Vol] 141 mmol/L Normal 137-145 [facility] Comment on above: Order Comment: Testi ng performed at [facility], [address] [place] [address] Urea nitrogen [Mass/Vol] 9 mg/dL Normal 8-19 [facility] Comment on above: Order Comment: Testi ng performed at [facility], [address] [place] [address] CBC w/Auto Diffon 08-08-2022 Basophils (Bld) [#/Vol] 0.04 10*3/uL Normal 0.00-0.10 [facility] Comment on above: Order Comment: Immature [...] is no longer indicated. Testing performed at [facility], [address] [place] [address] 48868 Basophils/100 WBC (Bld) 0.4 % Normal 0.1-1.2 [facility] Comment on above: Order Comment: Immature [...] is no longer indicated. Testing performed at [facility], [address] [place] [address] 10221 Eosinophils (Bld) [#/Vol] 0.21 10*3/uL Normal 0.00-0.40 [facility] Comment on above: Order Comment: Immature [...] is no longer indicated. Testing performed at [facility], [address] [place] [address] 39223 Eosinophils/100 WBC (Bld) 2.1 % Normal 0.7-5.8 [facility] Comment on above: Order Comment: Immature [...] is no longer indicated. Testing performed at [facility], [address] [place] [address] 80763 Erythrocyte distribution width (RBC) [Ratio] 12.9 % Normal 11.7-14.4 [facility] Comment on above: Order Comment: Immature [...] is no longer indicated. Testing performed at [facility], [address] [place] [address] 81668 Hematocrit (Bld) [Volume fraction] 35.4 % Normal 34.1-44.9 [facility] Comment on above: Order Comment: Immature [...] is no longer indicated. Testing performed at [facility], [address] [place] [address] 33547 Hemoglobin (Bld) [Mass/Vol] 11.2 g/dL Normal 11.2-15.7 [facility] Comment on above: Order Comment: Immature [...] is no longer indicated. Testing performed at [facility], [address] [place] [address] 87309 IG % (B) 0.4 % Normal 0.0-0.4 [facility] Comment on above: Order Comment: Immature [...] is no longer indicated. Testing performed at [facility], [address] [place] [address] 03827 IG# (B) 0.04 10*3/uL High 0.00-0.00 [facility] Comment on above: Order Comment: Immature [...] is no longer indicated. Testing performed at [facility], [address] [place] [address] 32580 Lymphocytes (Bld) [#/Vol] 1.60 10*3/uL Normal 1.20-3.70 [facility] Comment on above: Order Comment: Immature [...] is no longer indicated. Testing performed at [facility], [address] [place] [address] 18003 Lymphocytes/100 WBC (Bld) 16.3 % Low 19.3-51.7 [facility] Comment on above: Order Comment: Immature [...] is no longer indicated. Testing performed at [facility], [address] [place] [address] 92143 MCH (RBC) [Entitic mass] 27.7 pg Normal 25.6-32.2 [facility] Comment on above: Order Comment: Immature [...] is no longer indicated. Testing performed at [facility], [address] [place] [address] 50473 MCHC (RBC) [Mass/Vol] 31.6 g/dL Low 32.2-35.5 [facility] Comment on above: Order Comment: Immature [...] is no longer indicated. Testing performed at [facility], [address] [place] [address] 80763 MCV (RBC) [Entitic vol] 87.4 fL Normal 79.4-94.8 [facility] Comment on above: Order Comment: Immature [...] is no longer indicated. Testing performed at [facility], [address] [place] [address] 11331 Monocytes (Bld) [#/Vol] 0.88 10*3/uL Normal 0.20-0.90 [facility] Comment on above: Order Comment: Immature [...] is no longer indicated. Testing performed at [address] [address] Monocytes/100 WBC (Bld) 8.9 % Normal 4.7-12.5 [facility] Comment on above: Order Comment: Immature [...] is no longer indicated. Testing performed at [facility], [address] [place] [address] 73134 Neutrophils (Bld) [#/Vol] 7.07 10*3/uL High 1.60-6.10 [facility] Comment on above: Order Comment: Immature [...] is no longer indicated. Testing performed at [facility], [address] [place] [address] 90350 Neutrophils/100 WBC (Bld) 71.9 % High 34.0-71.1 [facility] Comment on above: Order Comment: Immature [...] is no longer indicated. Testing performed at [facility], [address] [place] [address] 79546 NRBC % (B) 0.0 /100{WBC} Normal 0.0-0.2 [facility] Comment on above: Order Comment: Immature [...] is no longer indicated. Testing performed at [facility], [address] [place] [address] 71463 NRBC# (B) 0.00 10*3/uL Normal 0.00-0.00 [facility] Comment on above: Order Comment: Immature [...] is no longer indicated. Testing performed at [facility], [address] [place] [address] 41343 Platelet mean volume (Bld) [Entitic vol] 9.2 fL Low 9.4-12.3 [facility] Comment on above: Order Comment: Immature [...] is no longer indicated. Testing performed at [facility], [address] [place] [address] 27250 Platelets (Bld) [#/Vol] 315 10*3/uL Normal 182-369 [facility] Comment on above: Order Comment: Immature [...] is no longer indicated. Testing performed at [facility], [address] [place] [address] 55008 RBC (Bld) [#/Vol] 4.05 10*6/uL Normal 3.93-5.22 [facility] Comment on above: [...] is no longer indicated. Testing performed at [facility], [address] [place] [address] 50276 RDW-SD (B) 41.0 fL Normal 36.4-46.3 [facility] Comment on above: Order Comment: Immature [...] is no longer indicated. Testing performed at [facility], [address] [place] [address] 92682 WBC (Bld) [#/Vol] 9.8 10*3/uL Normal 4.0-10.0 [facility] Comment on above: Order Comment: [...] is no longer indicated. Testing performed at [facility], [address] [place] [address] NECK WITHOUT CONTRASTon 0 08-08-2022 CT [...] Schultz MD On: 08/08/2022 4:07 PM Normal [facility] EST Glomerular Filtration Ra jude 08-08-2022 EAGFR (B) >60 Normal >60 [facility] Comment on above: Order Comment: The c alculated GFR uses the (IDMS)-traceable creatinine MDRD equation and is reported in mL/min/1.73 square meters. This formula is not recommended for use with individuals with unstable creatinine concentrations, extremes in muscle mass and/or body size, or alternative diets and may not be suitable for all patient populations. Testing performed at [facility], [address] [place] [address] 85754 Result Comment: The reported eGFR is based on a non- patient, for Americans multiply the result by 1.212. Pap IG, rfx Aptima HPV, rfx 16/18,45on 06-11-2022 . . Normal [facility] Comment on above: Result Comment: Perf ormed at: WB Performed By: #### P APHR2A #### [facility] [address] [address] [address] Jose Elias Strong DIAGNOSIS: Comment Normal [facility] Comment on above: Result Comment: NEGA TIVE FOR INTRAEPITHELIAL LESION OR MALIGNANCY. Performed at: WB Performed By: #### P APHR2A #### [facility] [address] [address] [address] Jose Elias Strong HPV Aptima Negative Normal Negative [facility] Comment on above: Result Comment: This nucleic acid amplification test detects fourteen high-risk HPV types (16,18,31,33,35,39,45,51,52,56,58,59,66,68) without differentiation. Performed at: =G Performed By: #### P APHR2A #### [facility] [address] [address] [address] Jose Elias Strong HPV Genotype Reflex Comment Normal [facility] Comment on above: Result Comment: Crit eria not met, HPV Genotype not performed. Performed at: WB Performed By: #### P APHR2A #### [facility] [address] [address] [address] Jose Elias Strong Methodology: Comment Normal [facility] Comment on above: Result Comment: This liquid based ThinPrep(R) pap test was screened with the use of an image guided system. Performed at: WB Performed By: #### P APHR2A #### [facility] [address] [address] [address] Jose Elias Strong Note: Comment Normal [facility] Comment on above: Result [...] WB Performed By: #### P APHR2A #### [facility] [address] [address] [address] Jose Elias Strong Performed by: Comment Normal [facility] Comment on above: Result Comment: Koffi Hutchinson, Hopper Attendant (ASCP) Performed at: WB Performed By: #### P APHR2A #### [facility] [address] [address] [address] Jose Elias Strong Specimen adequacy: Comment Normal [place] Comment on above: Result Comment: Sati sfactory for evaluation. Endocervical and/or squamous metaplastic cells (endocervical component) are present. Performed at: WB Performed By: #### P APHR2A #### [facility] [address] [place] [address] Dr. Jose Elias Strong PAP ACOG PANEL 2: 21 to 29on 11-20-2021 . . Normal [facility] Comment on above: Performed By: #### [id number] #### [facility] [address] [place] [address] Dr. Jose Elias Strong Age Gdln ACOG Testing - Normal [facility] Comment on above: Performed By: #### [id number] #### [facility] [address] [place] [address] Dr. Jose Elias Strong DIAGNOSIS: Comment [place] [facility] Comment on above: Result Comment: NEGA TIVE FOR INTRAEPITHELIAL LESION OR MALIGNANCY. REACTIVE CELLULAR CHANGES AND/OR REPAIR ARE PRESENT. Performed By: #### [id number] #### [facility] [address] [place] [address] Dr. Jose Elias Strong Electronically signed by: Comment Normal [facility] Comment on above: Result Comment: Melinda Patel MD, Pathologist Performed By: #### [id number] #### [facility] [address] [place] [address] Dr. Jose Elias Strong Methodology: Comment [facility] Comment on above: Result Comment: This liquid based ThinPrep(R) pap test was screened with the use of an image guided system. Performed By: #### [id number] #### [facility] [address] [place] [address] Dr. Jose Elias Strong Note: Comment [facility] Comment on above: Result Comment: The Pap smear is a screening test designed to aid in the detection of premalignant and malignant conditions of the uterine cervix. It is not a diagnostic procedure and should not be used as the sole means of detecting cervical cancer. Both false-positive and false-negative reports do occur. . Performed By: #### [id number] #### [facility] [address] [place] [address] Dr. Jose Elias Strong Performed by: Comment Normal [facility] Comment on above: Result Comment: Bruc e Den Romero, Hopper Attendant (ASCP) Performed By: #### [id number] #### [facility] [address] [place] [address] Dr. Jose Elias Strong Reflex Criteria: Comment Normal [facility] Comment on above: Result Comment: The HPV DNA reflex criteria were not met with this specimen result therefore, no HPV testing was performed. . Performed By: #### [id number] #### [facility] [address] [place] [address] Dr. Jose Elias Strong Specimen adequacy: Comment Normal [facility] Comment on above: Result Comment: Sati sfactory for evaluation. Endocervical and/or squamous metaplastic cells (endocervical component) are present. Performed By: #### [id number] #### [facility] [address] [place] [address] Dr. Jose Elias Strong CBC W MANUAL DIFFon 08-21-19 22 ANISOCYTOSIS 1+ Normal [facility] Comment on above: Performed By: #### T NS #### [facility] [address] [place] [address] Dr. Jose Elias Strong ATYPICAL LYMPH # Normal [facility] Comment on above: Performed By: #### T NS #### [facility] [address] [place] [address] Dr. Jose Elias Strong ATYPICAL LYMPH % Normal [facility] Comment on above: Performed By: #### T NS #### [facility] [address] [place] [address] Dr. Jose Elias Strong BAND # 0.2 103/ul Normal 0.0-0.3 [facility] Comment on above: Performed By: #### T NS #### [facility] [address] [place] [address] Dr. Jose Elias Strong BAND % 1 % Normal 0-[address] [facility] Comment on above: Performed By: #### T NS #### [facility] [address] [place] [address] Dr. Jose Elias Strong BASOM # 0.00 103/ul Normal 0.00-0.10 [facility] Comment on above: Performed By: #### T NS #### [facility] [address] [address] [address] Jose Elias Strong BASOM % 0.0 % Critically low 0.2-2.0 [facility] Comment on above: Performed By: #### T NS #### [facility] [address] [address] [address] Jose Elias Strong BLAST # Normal [facility] Comment on above: Performed By: #### T NS #### [facility] [address] [address] [address] Jose Elias Strong BLAST % Normal [facility] Comment on above: Performed By: #### T NS #### [facility] [address] [address] [address] Jose Elias Strong CORRECTED WBC Normal 4.0-11.0 [facility] Comment on above: Performed By: #### T NS #### [facility] [address] [place] [address] Dr. Jose Elias Strong EOS # 0.00 103/ul Normal 0.00-0.70 [facility] Comment on above: Performed By: #### T NS #### [facility] [address] [address] [address] Jose Elias Strong EOS% 0.0 % Critically low 0.9-7.0 [facility] Comment on above: Performed By: #### T NS #### [facility] [address] [place] [address] Dr. Jose Elias Strong HCT 27.5 % Critically low 36.0-48.0 [facility] Comment on above: Performed By: #### T NS #### [facility] [address] [place] [address] Dr. Jose Elias Strong HGB 8.1 g/dl Critically low 12.0-16.0 [facility] Comment on above: Performed By: #### T NS #### [facility] [address] [place] [address] Dr. Jose Elias Strong LYMPHM # 1.62 103/ul Normal 1.20-3.80 [facility] Comment on above: Performed By: #### T NS #### [facility] [address] [address] [address] Jose Elias Strong LYMPHM% 9.0 % Critically low 20.5-60.0 [facility] Comment on above: Performed By: #### T NS #### [facility] [address] [place] [address] Dr. Jose Elias Strong MCH 22.2 pg Critically low 26.7-34.0 [facility] Comment on above: Performed By: #### T NS #### [facility] [address] [place] [address] Dr. Jose Elias Strong MCHC 29.5 g/dl Critically low 29.9-35.2 [facility] Comment on above: Performed By: #### T NS #### [facility] [address] [place] [address] Dr. Jose Elias Strong MCV 75.3 fL Critically low 81.0-99.0 [facility] Comment on above: Performed By: #### T NS #### [facility] [address] [place] [address] Dr. Jose Elias Strong METAMYELOCYTE # Normal [facility] Comment on above: Performed By: #### T NS #### [facility] [address] [place] [address] Dr. Jose Elias Strong METAMYELOCYTE % Normal [facility] Comment on above: Performed By: #### T NS #### [facility] [address] [place] [address] Dr. Jose Elias Strong MONOM# 1.62 103/ul Critically high 0.30-0.80 [facility] Comment on above: Performed By: #### T NS #### [facility] [address] [place] [address] Dr. Jose Elias Strong MONOM% 9.0 % Normal 1.7-12.0 [facility] Comment on above: Performed By: #### T NS #### [facility] [address] [place] [address] Dr. Jose Elias Strong MPV 9.6 fL Normal 9.5-13.5 [facility] Comment on above: Performed By: #### T NS #### [facility] [address] [address] [address] Jose Elias Strong MYELOCYTE # Normal [facility] Comment on above: Performed By: #### T NS #### [facility] [address] [address] [address] Jose Elias Strong MYELOCYTE % Normal [facility] Comment on above: Performed By: #### T NS #### [facility] [address] [address] [address] Jose Elias Strong NRBC Normal [facility] Comment on above: Performed By: #### T NS #### [facility] [address] [address] [address] Jose Elias Strong PLT 308 103/ul Normal 150-450 [facility] Comment on above: Performed By: #### T NS #### [facility] [address] [address] [address] Jose Elias Strong RBC 3.65 106/ul Critically low 4.20-5.40 [facility] Comment on above: Performed By: #### T NS #### [facility] [address] [address] [address] Jose Elias Strong RDW 15.7 % Critically high 11.0-15.0 [facility] Comment on above: Performed By: #### T NS #### [facility] [address] [address] [address] Jose Elias Strong SEG # 14.58 103/ul Critically high 1.40-6.50 [facility] Comment on above: Performed By: #### T NS #### [facility] [address] [address] [address] Jose Elias Strong SEG % 81.0 % Critically high 43.0-75.0 [facility] Comment on above: Performed By: #### T NS #### [facility] [address] [address] [address] Jose Elias Strong WBC 18.0 103/ul Critically high 4.0-11.0 [facility] Comment on above: Performed By: #### T NS #### [facility] [address] [address] [address] Jose Elias Strong DRUG SCREEN RAPID (URINE)on 08-20-2021 AMP Negative Normal NEGATIVE [facility] Comment on above: Performed By: #### T NS #### [facility] [address] [address] [address] Jose Elias Strong BAR Negative Normal NEGATIVE [facility] Comment on above: Performed By: #### T NS #### [facility] [address] [address] [address] Jose Elias Strong BUP Negative Normal NEGATIVE [facility] Comment on above: Performed By: #### T NS #### [facility] [address] [place] [address] Dr. Jose Elias Strong BZO Negative Normal NEGATIVE [facility] Comment on above: Performed By: #### T NS #### [facility] [address] [place] [address] Dr. Jose Elias Strong PAXTON Negative Normal NEGATIVE [facility] Comment on above: Performed By: #### T NS #### [facility] [address] [place] [address] Dr. Jose Elias Strong CUT-OFFS SEE BELOW Normal [facility] Comment on above: Result [...] ng/mL Performed By: #### T NS #### [facility] [address] [place] [address] Dr. Jose Elias Strong DRUG CUT HEADER DRUG CLASS TEST SYSTEM CUT-OFF CONCENTRATIONS ARE FOLLOWS: Normal [facility] Comment on above: Performed By: #### T NS #### [facility] [address] [place] [address] Dr. Jose Elias Strong mAMP Negative Normal NEGATIVE [facility] Comment on above: Performed By: #### T NS #### [facility] [address] [place] [address] Dr. Jose Elias Strong MTD Negative Normal NEGATIVE [facility] Comment on above: Performed By: #### T NS #### [facility] [address] [place] [address] Dr. Jose Elias Strong OPI Negative Normal NEGATIVE [facility] Comment on above: Performed By: #### T NS #### [facility] [address] [place] [address] Dr. Jose Elias Strong OXY Negative Normal NEGATIVE [facility] Comment on above: Performed By: #### T NS #### [facility] [address] [place] [address] Dr. Jose Elias Strong PCP Negative Normal NEGATIVE [facility] Comment on above: Performed By: #### T NS #### [facility] [address] [place] [address] Dr. Jose Elias Strong PPX Negative Normal NEGATIVE [facility] Comment on above: Performed By: #### T NS #### [facility] [address] [place] [address] Dr. Jose Elias Strong TCA Negative Normal NEGATIVE [facility] Comment on above: Performed By: #### T NS #### [facility] [address] [place] [address] Dr. Jose Elias Strong THC Negative Normal NEGATIVE [facility] Comment on above: Performed By: #### T NS #### [facility] [address] [place] [address] Dr. Jose Elias Strong UA (CLEAN/CATCH) BACKEND TESTER/MICRO I F IND.on 08-20-2021 Bilirubin Ql (U) Negative Normal NEGATIVE [facility] Comment on above: Performed By: #### U MICRO, UACSIND #### [facility] [address] [place] [address] Dr. Jose Elias Strong Clarity (U) SL CLOUDY Abnormal CLEAR [facility] Comment on above: Performed By: #### U MICRO, UACSIND #### [facility] [address] [address] [address] Jose Elias Strong Color (U) RED Abnormal YELLOW [facility] Comment on above: Performed By: #### U MICRO, UACSIND #### [facility] [address] [address] [address] Jose Elias Strong Glucose Ql (U) Negative Normal NEGATIVE [facility] Comment on above: Performed By: #### U MICRO, UACSIND #### [facility] [address] [address] [address] Jose Elias Strong Hemoglobin Ql (U) LARGE Abnormal NEGATIVE [facility] Comment on above: Performed By: #### U MICRO, UACSIND #### [facility] [address] [address] [address] Jose Elias Strong Ketones Ql (U) 15 mg/dl Abnormal NEGATIVE [facility] Comment on above: Performed By: #### U MICRO, UACSIND #### [facility] [address] [address] [address] Jose Elias Strong LEUKOCYTES TRACE Abnormal NEGATIVE [facility] Comment on above: Performed By: #### U MICRO, UACSIND #### [facility] [address] [address] [address] Jose Elias Strong Nitrite Ql (U) Negative Normal NEGATIVE [facility] Comment on above: Performed By: #### U MICRO, UACSIND #### [facility] [address] [address] [address] Jose Elias Strong pH (U) 7.0 [pH] Normal 5-9 [facility] Comment on above: Performed By: #### U MICRO, UACSIND #### [facility] [address] [address] [address] Jose Elias Strong SPEC GRAVITY 1.020 Normal 1.005-<=1.025 [facility] Comment on above: Performed By: #### U MICRO, UACSIND #### [facility] [address] [address] [address] Jose Elias Strong UA PROTEIN 30 mg/dl Abnormal NEGATIVE/ TRACE [facility] Comment on above: Performed By: #### U MICRO, UACSIND #### [facility] [address] [place] [address] Dr. Jose Elias Strong UR MICRO IND INDICATED Normal [facility] Comment on above: Performed By: #### U MICRO, UACSIND #### [facility] [address] [place] [address] Dr. Jose Elias Strong Urobilinogen Qn (U) 0.2 {Mago'U}/dL Normal 0.2 - 1. [address] [facility] Comment on above: Performed By: #### U MICRO, UACSIND #### [facility] [address] [place] [address] Dr. Jose Elias Strong URINE MICROSCOPIC ONLYon BACTERIA NONE SEEN Normal NONE SEEN [facility] Comment on above: Performed By: #### U MICRO, UACSIND #### [facility] [address] [place] [address] Dr. Jose Elias Strong Bacteria identified Cx Nom (U) NOT INDICATED Normal [facility] Comment on above: Performed By: #### U MICRO, UACSIND #### [facility] [address] [place] [address] Dr. Jose Elias Strong CAST NONE SEEN Normal NONE SEEN [facility] Comment on above: Performed By: #### U MICRO, UACSIND #### [facility] [address] [place] [address] Dr. Jose Elias Strong Crystals LM Nom (Urine sed) NONE SEEN Normal NONE SEEN [facility] Comment on above: Performed By: #### U MICRO, UACSIND #### [facility] [address] [place] [address] Dr. Jose Elias Strong Epithelial cells LM Ql (Urine sed) NONE SEEN Normal NONE SEEN /RARE [facility] Comment on above: Performed By: #### U MICRO, UACSIND #### [facility] [address] [place] [address] Dr. Jose Elias Strong MUCOUS NONE SEEN Normal NONE SEEN [facility] Comment on above: Performed By: #### U MICRO, UACSIND #### [facility] [address] [address] [address] Jose Elias Strong RBC (U) [#/Vol] /uL Abnormal 0-2 [facility] Comment on above: Performed By: #### U MICRO, UACSIND #### [facility] [address] [address] [address] Jose Elias Strong WBC 0-2 Abnormal NONE SEEN [facility] Comment on above: Performed By: #### U MICRO, UACSIND #### [facility] [address] [address] [address] Jose Elias Strong CBC AUTO DIFFon 08-19-2021 BASO # 0.0 103/ul Normal 0.0-0.1 [facility] Comment on above: Performed By: #### T NS #### [facility] [address] [address] [address] Jose Elias Strong Basophils/100 WBC (Bld) 0.2 % Normal 0.2-2.0 [facility] Comment on above: Performed By: #### T NS #### [facility] [address] [address] [address] Jose Elias Strong EO # 0.1 103/ul Normal 0.0-0.7 [facility] Comment on above: Performed By: #### T NS #### [facility] [address] [address] [address] Jose Elias Strong Eosinophils/100 WBC (Bld) 0.7 % Critically low 0.9-7.[address] [facility] Comment on above: Performed By: #### T NS #### [facility] [address] [address] [address] Jose Elias Strong Erythrocyte distribution width (RBC) [Ratio] 15.9 % Critically high 11.0-15.[address] [facility] Comment on above: Performed By: #### T NS #### [facility] [address] [address] [address] Jose Elias Strong Hematocrit (Bld) [Volume fraction] 32.4 % Critically low 36.0-48.0 [facility] Comment on above: Performed By: #### T NS #### [facility] [address] [address] [address] Jose Elias Strong Hemoglobin (Bld) [Mass/Vol] 9.7 g/dL Critically low 12.0-16.0 [facility] Comment on above: Performed By: #### T NS #### [facility] [address] [place] [address] Dr. Jose Elias Strong IG # 0.19 10e3/ul Critically high 0.00-0.03 [facility] Comment on above: Performed By: #### T NS #### [facility] [address] [place] [address] Dr. Jose Elias Strong IG % 1.4 % Critically high 0.0-0.5 [facility] Comment on above: Performed By: #### T NS #### [facility] [address] [place] [address] Dr. Jose Elias Strong LYMPH # 1.9 103/ul Normal 1.2-3.[address] [facility] Comment on above: Performed By: #### T NS #### [facility] [address] [place] [address] Dr. Jose Elias Strong Lymphocytes/100 WBC (Bld) 14.4 % Critically low 20.5-60.0 [facility] Comment on above: Performed By: #### T NS #### [facility] [address] [place] [address] Dr. Jose Elias Strong MANUAL DIFF REQ NO Normal [facility] Comment on above: Performed By: #### T NS #### [facility] [address] [place] [address] Dr. Jose Elias Strong MCH (RBC) [Entitic mass] 22.3 pg Critically low 26.7-34.[address] [facility] Comment on above: Performed By: #### T NS #### [facility] [address] [place] [address] Dr. Jose Elias Strong MCHC (RBC) [Mass/Vol] 29.9 g/dL Normal 29.9-35.[address] [facility] Comment on above: Performed By: #### T NS #### [facility] [address] [address] [address] Jose Elias Strong MCV (RBC) [Entitic vol] 74.5 fL Critically low 81.0-99.0 [facility] Comment on above: Performed By: #### T NS #### [facility] [address] [address] [address] Jose Elias Strong MONO # 1.4 103/ul Critically high 0.3-0.8 [facility] Comment on above: Performed By: #### T NS #### [facility] [address] [place] [address] Dr. Jose Elias Strong Monocytes/100 WBC (Bld) 10.1 % Normal 1.7-12.0 [facility] Comment on above: Performed By: #### T NS #### [facility] [address] [place] [address] Dr. Jose Elias Strong NEUT # 9.8 103/ul Critically high 1.4-6.5 [facility] Comment on above: Performed By: #### T NS #### [facility] [address] [place] [address] Dr. Jose Elias Strong Neutrophils/100 WBC (Bld) 73.2 % Normal 43.0-75.0 [facility] Comment on above: Performed By: #### T NS #### [facility] [address] [place] [address] Dr. Jose Elias Strong Platelet mean volume (Bld) [Entitic vol] 10.0 fL Normal 9.5-13.[address] [facility] Comment on above: Performed By: #### T NS #### [facility] [address] [place] [address] Dr. Jose Elias Strong PLT 337 103/ul Normal 150-[address] [facility] Comment on above: Performed By: #### T NS #### [facility] [address] [place] [address] Dr. Jose Elias Strong RBC 4.35 106/ul Normal 4.20-5.[address] [facility] Comment on above: Performed By: #### T NS #### [facility] [address] [address] [address] Jose Elias Strong WBC 13.4 103/ul Critically high 4.0-11.0 [facility] Comment on above: Performed By: #### T NS #### [facility] [address] [place] [address] Dr. Jose Elias Strong Covid-19 PCR (CVDTB)on 08-03 SARS-CoV-2 (COVID-19) RNA [place]+probe Ql (Unsp spec) Not detected Normal NOT DETECTED [facility] Comment on above: Result Comment: When [...] for this test is supported by the [place] of [employer] and Human Service's declaration that [...] used). Performed By: #### C VDTBH #### [facility] [address] [place] [address] Dr. Jose Elias Strong TYPE AND SCREENon 08-19-2021 TYPE AND SCREEN Negative Normal [facility] Comment on above: Performed By: #### T NS #### [facility] [address] [place] [address] Dr. Jose Elias Strong GROUP B STREP CULTUREon 07-05 S. agalactiae Ag Ql (Unsp spec) Culture Observations: NEGATIVE FOR GROUP B STREPTOCOCCUS. Normal [facility] Comment on above: Performed By: #### G BSCX #### [facility] [address] [place] [address] Dr. Jose Elias Strong UA (CLEAN/CATCH) BACKEND TESTER/MICRO I F IND.on 06-28-2021 Bilirubin Ql (U) Negative Normal NEGATIVE [facility] Comment on above: Performed By: #### U ACSIND, UMICRO #### [facility] [address] [address] [address] Jose Elias Strong Clarity (U) CLEAR Normal CLEAR [facility] Comment on above: Performed By: #### U ACSIND, UMICRO #### [facility] [address] [address] [address] Jose Elias Strong Color (U) LT. YELLOW Normal YELLOW [facility] Comment on above: Performed By: #### U ACSIND, UMICRO #### [facility] [address] [place] [address] Dr. Jose Elias Strong Glucose Ql (U) Negative Normal NEGATIVE [facility] Comment on above: Performed By: #### U ACSIND, UMICRO #### [facility] [address] [place] [address] Dr. Jose Elias Strong Hemoglobin Ql (U) Negative Normal NEGATIVE [facility] Comment on above: Performed By: #### U ACSIND, UMICRO #### [facility] [address] [place] [address] Dr. Jose Elias Strong Ketones Ql (U) Negative Normal NEGATIVE [facility] Comment on above: Performed By: #### U ACSIND, UMICRO #### [facility] [address] [place] [address] Dr. Jose Elias Strong LEUKOCYTES TRACE Abnormal NEGATIVE [facility] Comment on above: Performed By: #### U ACSIND, UMICRO #### [facility] [address] [place] [address] Dr. Jose Elias Strong Nitrite Ql (U) Negative Normal NEGATIVE [facility] Comment on above: Performed By: #### U ACSIND, UMICRO #### [facility] [address] [place] [address] Dr. Jose Elias Strong pH (U) 6.5 [pH] Normal 5-9 [facility] Comment on above: Performed By: #### U ACSIND, UMICRO #### [facility] [address] [address] [address] Jose Elias Strong SPEC GRAVITY 1.015 Normal 1.005-<=1.025 [facility] Comment on above: Performed By: #### U ACSMICHAEL UMICRO #### [facility] [address] [address] [address] Jose Elias Strong UA PROTEIN Negative Normal NEGATIVE/ TRACE [facility] Comment on above: Performed By: #### U ACSMICHAEL UMICRO #### [facility] [address] [place] [address] Dr. Jose Elias Strong UR MICRO IND INDICATED Normal [facility] Comment on above: Performed By: #### U ACSMICHAEL UMICRO #### [facility] [address] [place] [address] Dr. Jose Elias Strong Urobilinogen Qn (U) 0.2 {Mago'U}/dL Normal 0.2 - 1. [address] [facility] Comment on above: Performed By: #### U ACSMICHAEL UMICRO #### [facility] [address] [place] [address] Dr. Jose Elias Strong URINE MICROSCOPIC ONLYon AMORPHOUS CRYSTALS FEW Normal [facility] Comment on above: Performed By: #### U ACSMICHAEL UMICRO #### [facility] [address] [place] [address] Dr. Jose Elias Strong BACTERIA TRACE Abnormal NONE SEEN [facility] Comment on above: Performed By: #### U ACSMICHAEL UMICRO #### [facility] [address] [place] [address] Dr. Jose Elias Strong Bacteria identified Cx Nom (U) NOT INDICATED Normal [facility] Comment on above: Performed By: #### U ACSMICHAEL UMICRO #### [facility] [address] [place] [address] Dr. Jose Elias Strong CAST NONE SEEN Normal NONE SEEN [facility] Comment on above: Performed By: #### U ACSMICHAEL UMICRO #### [facility] [address] [place] [address] Dr. Jose Elias Strong Crystals LM Nom (Urine sed) SEEN Abnormal NONE SEEN [facility] Comment on above: Performed By: #### U ACSIND, UMICRO #### [facility] [address] [place] [address] Dr. Jose Elias Strong Epithelial cells LM Ql (Urine sed) RARE Normal NONE SEEN /RARE [facility] Comment on above: Performed By: #### U ACSIND, UMICRO #### [facility] [address] [place] [address] Dr. Jose Elias Strong MUCOUS TRACE Abnormal NONE SEEN [facility] Comment on above: Performed By: #### U ACSIND, UMICRO #### [facility] [address] [place] [address] Dr. Jose Elias Strong RBC 0-2 Normal 0-2 [facility] Comment on above: Performed By: #### U ACSMICHAEL, UMICRO #### [facility] [address] [place] [address] Dr. Jose Elias Strong WBC 2-5 Abnormal NONE SEEN [facility] Comment on above: Performed By: #### U ACSMICHAEL, UMICRO #### [facility] [address] [place] [address] Dr. Jose Elias Strong CBC AUTO DIFFon 06-19-2021 BASO # 0.0 103/ul Normal 0.0-0.1 [facility] Comment on above: Performed By: #### C BC #### [facility] [address] [place] [address] Dr. Jose Elias Strong Basophils/100 WBC (Bld) 0.3 % Normal 0.2-2.[address] [facility] Comment on above: Performed By: #### C BC #### [facility] [address] [place] [address] Dr. Jose Elias Strong EO # 0.2 103/ul Normal 0.0-0.[address] [facility] Comment on above: Performed By: #### C BC #### [facility] [address] [place] [address] Dr. Jose Elias Strong Eosinophils/100 WBC (Bld) 2.0 % Normal 0.9-7.[address] [facility] Comment on above: Performed By: #### C BC #### [facility] [address] [address] [address] Jose Elias Strong Erythrocyte distribution width (RBC) [Ratio] 13.6 % Normal 11.0-15.0 [facility] Comment on above: Performed By: #### C BC #### [facility] [address] [place] [address] Dr. Jose Elias Strong Hematocrit (Bld) [Volume fraction] 29.4 % Critically low 36.0-48.0 [facility] Comment on above: Performed By: #### C BC #### [facility] [address] [place] [address] Dr. Jose Elias Strong Hemoglobin (Bld) [Mass/Vol] 9.5 g/dL Critically low 12.0-16.0 [facility] Comment on above: Performed By: #### C BC #### [facility] [address] [place] [address] Dr. Jose Elias Strong IG # 0.14 10e3/ul Critically high 0.00-0.03 [facility] Comment on above: Performed By: #### C BC #### [facility] [address] [place] [address] Dr. Jose Elias Strong IG % 1.4 % Critically high 0.0-0.5 [facility] Comment on above: Performed By: #### C BC #### [facility] [address] [place] [address] Dr. Jose Elias Strong LYMPH # 1.6 103/ul Normal 1.2-3.8 [facility] Comment on above: Performed By: #### C BC #### [facility] [address] [place] [address] Dr. Jose Elias Strong Lymphocytes/100 WBC (Bld) 15.5 % Critically low 20.5-60.0 [facility] Comment on above: Performed By: #### C BC #### [facility] [address] [place] [address] Dr. Jose Elias Strong MANUAL DIFF REQ NO Normal [facility] Comment on above: Performed By: #### C BC #### [facility] [address] [address] [address] Jose Elias Strong MCH (RBC) [Entitic mass] 26.8 pg Normal 26.7-34.0 [facility] Comment on above: Performed By: #### C BC #### [facility] [address] [address] [address] Jose Elias Strong MCHC (RBC) [Mass/Vol] 32.3 g/dL Normal 29.9-35.[address] [facility] Comment on above: Performed By: #### C BC #### [facility] [address] [address] [address] Jose Elias Strong MCV (RBC) [Entitic vol] 82.8 fL Normal 81.0-99.[address] [facility] Comment on above: Performed By: #### C BC #### [facility] [address] [place] [address] Dr. Jose Elias Strong MONO # 1.2 103/ul Critically high 0.3-0.8 [facility] Comment on above: Performed By: #### C BC #### [facility] [address] [address] [address] Jose Elias Strong Monocytes/100 WBC (Bld) 12.2 % Critically high 1.7-12.0 [facility] Comment on above: Performed By: #### C BC #### [facility] [address] [place] [address] Dr. Jose Elias Strong NEUT # 7.0 103/ul Critically high 1.4-6.5 [facility] Comment on above: Performed By: #### C BC #### [facility] [address] [place] [address] Dr. Jose Elias Strong Neutrophils/100 WBC (Bld) 68.6 % Normal 43.0-75.[address] [facility] Comment on above: Performed By: #### C BC #### [facility] [address] [place] [address] Dr. Jose Elias Strong Platelet mean volume (Bld) [Entitic vol] 9.1 fL Critically low 9.5-13.[address] [facility] Comment on above: Performed By: #### C BC #### [facility] [address] [address] [address] Jose Elias Strong PLT 309 103/ul Normal 150-450 [facility] Comment on above: Performed By: #### C BC #### [facility] [address] [address] [address] Jose Elias Strong RBC 3.55 106/ul Critically low 4.20-5.40 [facility] Comment on above: Performed By: #### C BC #### [facility] [address] [address] [address] Jose Elias Strong WBC 10.1 103/ul Normal 4.0-11.0 [facility] Comment on above: Performed By: #### C BC #### [facility] [address] [address] [address] Jose Elias Strong GLYCOHEMOGLOBIN A1Con 2021 ADA RECOMMENDATION ADA THERAPEUTIC TARGET 6.0 - 7.0 ACTION SUGGESTED > 7.0 Normal [facility] Comment on above: Performed By: #### T NS #### [facility] [address] [address] [address] Jose Elias Strong Glucose [Mass/Vol] 97 mg/dL Normal [place] Comment on above: Performed By: #### T NS #### [facility] [address] [address] [address] Jose Elias Strong HbA1c (Bld) [Mass fraction] 5.0 % Normal <=6.0 [facility] Comment on above: Performed By: #### T NS #### [facility] [address] [address] [address] Jose Elias Strong Consenton 10-24-2020 Consent [id number] .00CD:127 Normal [facility] In office Testingon 10-25-19 21 In office Testing [id number]# 1.00CD:127 Normal [facility] Registrationon 10-24-2020 Registration [id number] .00CD:127 [facility] Registration [id number] .00CD:127 [facility] Vital Signs Date Time Vital Sign Value Performing Clinician Leslie garrett 06-12-2023 11:020500 Body mass index (BMI) [Ratio] 30.26 kg/m2 Mary Venkat DO Work Phone: [facility] 06-12-2023 11:02-050 Body weight 77.47 kg Mary Venkat DO Work Phone: [facility] 06-12-2023 11:02-0500 Diastolic blood pressure 70 mm[Hg] Mary Venkat DO Work Phone: [facility] 06-12-2023 11:02-0500 Systolic blood pressure 118 mm[Hg] Mary Venkat DO Work Phone: [facility] Encounters Encounter Date Encounter Type Care Provider Facility Start: 06-12-2023 End: 06-12-2023 ambulatory MARY VENKAT Not Available Start: 06-12-2023 End: 06-12-2023 Office outpatient visit 15 minutes Mary Venkat DO Work Phone: [facility] Comment on above: Third trimester preg jun Start: 05-29-2023 End: 05-29-2023 ambulatory ERIKA CHAN Not Available Start: 04-23-2023 End: 04-23-2023 ambulatory MARY VENKAT Not Available Start: 03-19-2023 End: 03-19-2023 ambulatory MARY VENKAT Not Available Start: 12-10-[address] [facility] Start: 11-19-2022 End: 11-19-2022 ambulatory YOMAIRA LAWLER [facility] Start: 10-28-2022 End: 10-29-2022 [facility] Start: 08-29-2022 ambulatory YOMAIRA LAWLER [facility] Start: 08-19-2022 End: 08-19-2022 Emergency department patient visit YOMAIRA LAWLER [facility] Start: 08-08-2022 End: 08-08-2022 Emergency department patient visit JERRY WALLS [facility] Start: 06-04-2022 End: 06-04-[address] [...] Routine [facility] [address] [place] [id number] Erika Chan PA [address] [place] [address] [facility] Payers Date Payer Category Payer Medicaid [id number] 2022 Medicaid [employer] [place] [id number] 2022-Present [address] [place] [address] [id number] 1995 Unknown [id number] 2.16.840.1.199190.3.579.2.593 1995 Unknown [id number] 2.16.840.1.665842.3.579.2.593 1995 Unknown [id number] 2.16.840.1.926315.3.579.2.593 1995 Unknown [id number] 2.16.840.1.461459.3.579.2.593 1995 Unknown [id number] 2.16.840.1.975991.3.579.2.593 1995 Unknown [id number] 2.16.840.1.019501.3.579.2.593 1995 Unknown [id number] 2.16.840.1.818224.3.579.2.593 1995 Unknown [id number] 2.16.840.1.341582.3.579.2.593 1995 Unknown [id number] 2.16.840.1.944022.3.579.2.121 1995 Unknown [id number] 2.16.840.1.989879.3.579.2.1212 1995 Unknown [id number] 2.16.840.1.276694.3.579.2.121 1995 Unknown [id number] 2.16.840.1.783009.3.579.2.1212 1995 Unknown [id number] 2.16.840.1.350565.3.579.2.1212 1995 Unknown [id number] 2.16.840.1.114845.3.579.2.1213 1995 Unknown [id number] 2.16.840.1.459754.3.579.2.9 1995 Unknown [id number] 2.16.840.1.856470.3.579.2.9 1995 Unknown [id number] 2.16.840.1.269483.3.579.2.9 1995 Unknown [id number] 2.16.840.1.287587.3.579.2.1259 1959 Unknown [id number] Social History Date Type Detail Facility Start: 10-21-[address] [facility] Never smoked tobacco [facility] Start: [...] Ambulatory Problems Diagnosis Date Noted Acute asthma ([facility]) 12/03/2022 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 12/03/2022 Neck swelling 08/19/2022 Schizoaffective disorder ([facility]) 12/03/2022 Resolved Ambulatory Problems Diagnosis Date Noted No Resolved Ambulatory Problems Past Medical History: Diagnosis Date BMI 24.0-24.9, adult Depot contraception Encounter for IUD insertion Encounter for Papanicolaou cervical smear to confirm findings of recent normal smear following initial abnormal smear Intrauterine device surveillance Schizo-affective psychosis ([facility]) Urine test negative Family History Problem Relation [...] nursing note reviewed. Exam conducted with a medical professionals present. Vitals: Estimated body mass index is [...] section and content) DATE CREATED AUTHOR 10/25/2020 [facility] DATE CREATED AUTHOR AUTHOR'S ORGANIZ ATION 06/11/2022 [facility] DATE CREATED AUTHOR AUTHOR'S ORGANIZ ATION 12/16/2022 [facility] DATE CREATED AUTHOR AUTHOR'S ORGANIZ ATION 06/13/2023 [facility] EPIC Reason for Visit [...] BE BASED ON THE PRIMARY CLINICAL RECORDS. [employer] provides no warranty or guarantee of the accuracy or completeness of information in this document.
[2023-06-24 11:06] VITALS: BP 106/58; PULSE 97
== END 2023-06-24 11:51 | disposition home or self-care (01) ==
LOC: US 07:48 → FBC 11:02
PROVIDERS: PCP Family Medicine; Visit Provider Obstetrics & Gynecology
DX: O36.63X1 Maternal care for excessive fetal growth, third trimester, fetus 1 (principal); Z3A.34 34 weeks gestation of pregnancy
CPT/HCPCS: 76818

== ENCOUNTER 2023-06-27 08:03 | Outpatient (OUT) | payer OTHER, SELFPAY ==
--- OUTSIDE RECORDS SUMMARY | 2023-06-27 08:07 | XMS_ITS | CCD ---
Author Name Unknown Address [address] [facility] [address] [place] [address] Organization [facility] Care Team Providers Care Marriage Counselor Minister Name Role Phone VENKAT, DR HERNANDEZ Admitting [...] Unavail able VENKAT, DR HERNANDEZ Consulting Unavailable VENAKT, DR HERNANDEZ Admitting Unavailable VENKAT, DR HERNANDEZ [...] Translations: [LATEX] Drug allergy (disorder) 6 [facility] (2 sources) Leucine; Translations: [NICKEL] Drug Allergy 7 [facility] (2 sources) Penicillins; Translations: [PENICILLINS] Drug allergy (disorder) 7 [facility] (1 source) Shellfish Drug allergy (disorder) 7 [facility] (2 sources) Iodine; Translations: [IODINE] Drug Allergy 3 [facility] Repository (1 source) SHELLFISH CONTAINING PRODUCTS; Translations: [SHELLFISH CONTAINING PRODUCTS] Propensity to adverse reactions to drug (disorder) 3 [facility] Repository (1 source) VENOM-HONEY BEE; Translations: [VENOM-HONEY BEE] Propensity to adverse reactions to drug (disorder) 3 [facility] Repository (1 source) Amoxicillin Drug Allergy 3 Unknown [facility] Healthcare (1 source) Bee pollen Allergy to substance 3 Unknown [facility] (1 source) Honey bee venom Propensity to adverse reactions 3 [facility] (1 source) Latex Allergy to substance 3 Unknown [facility] (1 source) nickel sulfate Drug Allergy 3 [facility] (1 source) Penicillin G Drug Allergy 3 Unknown [facility] (1 source) Shellfish-Derive d Products Drug Allergy 3 Unknown [facility] Medications Current Medications Medication Drug Class(es) Dates Sig (Normalized) Sig (Original) [id number] actuat albuterol 0.09 mg/actuat metered dose [...] sexual mode of transmission complicating childbirth; Translations: [[facility] INF SEXL TRNSMS COMP CHILDBIRTH] Onset: 08-19-2021 Episodic Other complications of ; puerperium affecting management of mother (1 source) Other mental disorders complicating childbirth; Translations: [[facility] MENTAL D/O COMP CHILDBIRTH] Onset: 08-30-2021 Episodic Other complications of (4 sources) Other specified related conditions, third trimester; Translations: [[facility] SPEC PREG RELATED COND 3RD TRI] [...] UA Negative Negative - 4(70) +++ mg/dL [facility] Blood, UA Negative Negative - 50 Yovany/mcL [facility] Clarity, UA Clear [facility] Color, UA Yellow [facility] Glucose, UA Negative Negative - 2000(110) ++++ mg/dL [facility] Interpretation and review of laboratory results Abnormal [facility] Ketones, UA Negative Negative - 160(16) ++++ mg/dL [facility] Leukocytes, UA Positive Negative - 500+++ Jamey/mcL [facility] Nitrite, UA Negative Negative - Positive [facility] pH, UA 5.5 5 - 9 [facility] Protein, UA Positive Negative - 2000(20) ++++ mg/dL [facility] Spec Grav, UA 1.020 1 - 1.03 [facility] Urobilinogen, UA 1.0 0.2 - 12 mg/dL [facility] HCG, Urineon 11-19-2022 Beta HCG ( test) Ql (U) Negative Normal [facility] Comment on above: Order Comment: The c alculated GFR uses the (IDMS)-traceable creatinine MDRD equation and is reported in mL/min/1.73 square meters. This formula is not recommended for use with individuals with unstable creatinine concentrations, extremes in muscle mass and/or body size, or alternative diets and may not be suitable for all patient populations. Testing performed at [facility] Jose Elias [facility], [address] [place] [phone] Result Comment: Note : This test provides only a presumptive diagnosis for . If the HCG result is inconsistent with clinical evidence, results should be confirmed with an alternative method, such as a quantitative HCG. Basic Metabolic Profileon ANIO 11 mmol/L Low 12-20 [facility] Comment on above: Order Comment: Testi ng performed at [facility], [address] [place] [address] 66916 Calcium [Mass/Vol] 9.5 mg/dL Normal 8.4-10.2 [facility] Comment on above: Order Comment: Testi ng performed at [facility], [address] [place] [address] 99545 Chloride [Moles/Vol] 107 mmol/L Normal 98-107 [facility] Comment on above: Order Comment: Testi ng performed at [facility], [address] [place] [address] 89483 CO2 [Moles/Vol] 23.0 mmol/L Normal 22.0-30.0 [facility] Comment on above: Order Comment: Testi ng performed at [facility], [address] [place] [address] 29274 Creatinine [Mass/Vol] 0.7 mg/dL Normal 0.6-1.2 [facility] Comment on above: Order Comment: Testi ng performed at [facility], [address] [place] [address] 84687 Glucose [Mass/Vol] 118 mg/dL High 74-106 [facility] Comment on above: Order Comment: Testi ng performed at [facility], [address] [place] [address] 90480 Potassium [Moles/Vol] 4.1 mmol/L Normal 3.3-4.9 [facility] Comment on above: Order Comment: Testi ng performed at [facility], [address] [place] [address] 92014 Sodium [Moles/Vol] 137 mmol/L Normal 137-145 [facility] Comment on above: Order Comment: Testi ng performed at [facility], [address] [place] [address] 13334 Urea nitrogen [Mass/Vol] 14 mg/dL Normal 8-19 [facility] Comment on above: Order Comment: Testi ng performed at [facility], [address] [place] [address] 04019 CBC w/Auto Diffon 08-19-2022 Basophils (Bld) [#/Vol] 0.04 10*3/uL Normal 0.00-0.10 [facility] Comment on above: Order Comment: [...] is no longer indicated. Testing performed at [facility], [address] [place] [address] 73840 Eosinophils (Bld) [#/Vol] 0.05 10*3/uL Normal 0.00-0.40 [facility] Comment on above: Order Comment: [...] no longer indicated. Testing performed at [facility], [address] [place] [address] 47537 Erythrocyte distribution width (RBC) [Ratio] 13.3 % Normal 11.7-14.4 [facility] Comment on above: Order Comment: [...] no longer indicated. Testing performed at [facility], [address] [place] [address] 91663 Hematocrit (Bld) [Volume fraction] 36.1 % Normal 34.1-44.9 [facility] Comment on above: Order Comment: [...] no longer indicated. Testing performed at [facility], [address] [place] [address] 00128 Hemoglobin (Bld) [Mass/Vol] 12.0 g/dL Normal 11.2-15.7 [facility] Comment on above: Order Comment: [...] is no longer indicated. Testing performed at [facility], [address] [place] [address] 04000 IG % (B) 0.6 % High 0.0-0.4 [facility] Comment on above: Order Comment: [...] no longer indicated. Testing performed at [facility], [address] [place] [address] 84180 IG# (B) 0.14 10*3/uL High 0.00-0.00 [facility] Comment on above: Order Comment: [...] no longer indicated. Testing performed at [facility], [address] [place] [address] 48174 Lymphocytes (Bld) [#/Vol] 0.81 10*3/uL Low 1.20-3.70 [facility] Comment on above: Order Comment: [...] no longer indicated. Testing performed at [facility], [address] [place] [address] 98609 MCH (RBC) [Entitic mass] 28.5 pg Normal 25.6-32.2 [facility] Comment on above: Order Comment: [...] no longer indicated. Testing performed at [facility], [address] [place] [address] 93243 MCHC (RBC) [Mass/Vol] 33.2 g/dL Normal 32.2-35.5 [facility] Comment on above: Order Comment: [...] no longer indicated. Testing performed at [facility], [address] [place] [address] 51863 MCV (RBC) [Entitic vol] 85.7 fL Normal 79.4-94.8 [facility] Comment on above: Order Comment: [...] no longer indicated. Testing performed at [facility], [address] [place] [address] 32796 Monocytes (Bld) [#/Vol] 1.81 10*3/uL High 0.20-0.90 [facility] Comment on above: Order Comment: [...] is no longer indicated. Testing performed at [facility], [address] [place] [address] 48175 Neutrophils (Bld) [#/Vol] 20.04 10*3/uL High 1.60-6.10 [facility] Comment on above: Order Comment: [...] is no longer indicated. Testing performed at [facility], [address] [place] [address] 83079 NRBC % (B) 0.0 /100{WBC} Normal 0.0-0.2 [facility] Comment on above: Order Comment: [...] no longer indicated. Testing performed at [facility], [address] [place] [address] 39035 NRBC# (B) 0.00 10*3/uL Normal 0.00-0.00 [facility] Comment on above: Order Comment: [...] no longer indicated. Testing performed at [facility], [address] [place] [address] 66490 Platelet mean volume (Bld) [Entitic vol] 9.9 fL Normal 9.4-12.3 [facility] Comment on above: Order Comment: [...] no longer indicated. Testing performed at [facility], [address] [place] [address] 20105 Platelets (Bld) [#/Vol] 267 10*3/uL Normal 182-369 [facility] Comment on above: Order Comment: [...] is no longer indicated. Testing performed at [facility], [address] [place] [address] 18317 RBC (Bld) [#/Vol] 4.21 10*6/uL Normal 3.93-5.22 [facility] Comment on above: Order [...] no longer indicated. Testing performed at [facility], [address] [place] [address] 84032 RDW-SD (B) 41.1 fL Normal 36.4-46.3 [facility] Comment on above: Order Comment: [...] is no longer indicated. Testing performed at [facility], [address] [place] [address] 91262 WBC (Bld) [#/Vol] 22.9 10*3/uL High 4.0-10.0 [facility] Comment on above: Order [...] is no longer indicated. Testing performed at [facility], [address] [place] [address] NECK WITHOUT CONTRASTon 0 08-19-2022 CT [...] Salinas MD On: 08/19/2022 1:25 PM Normal [facility] EST Glomerular Filtration Ra jude 08-19-2022 EAGFR (B) >60 Normal >60 [facility] Comment on above: Order Comment: The c alculated GFR uses the (IDMS)-traceable creatinine MDRD equation and is reported in mL/min/1.73 square meters. This formula is not recommended for use with individuals with unstable creatinine concentrations, extremes in muscle mass and/or body size, or alternative diets and may not be suitable for all patient populations. Testing performed at [facility], [address] [place] [address] Result Comment: The reported eGFR is based on a non- patient, for Americans multiply the result by 1.212. HCG, Serumon 08-19-2022 HCGS Negative Normal [facility] Comment on above: Order Comment: Testi ng performed at [facility], [address] [place] [address] Result Comment: Note : This test provides only a presumptive diagnosis for . If the HCG result is inconsistent with clinical evidence, results should be confirmed with an alternative method, such as a quantitative HCG. Man Diffon 08-19-2022 Eos, Diff 2 % Normal 0-6 [facility] Comment on above: Order Comment: Testi ng performed at [facility], [facility] [place] [address] Lymphocytes/100 WBC (Bld) 3 % Low 20-53 [facility] Comment on above: Order Comment: Testi ng performed at [facility], [address] [place] [address] Christian, Diff 6 % Normal 5-12 [facility] Comment on above: Order Comment: Testi ng performed at [facility], [address] [facility] [place] [address] Segs. Diff 89 % High 34-70 [facility] Comment on above: Order Comment: Testi ng performed at [facility], [address] [place] [address] Slide Scan Normal Normal Normal [facility] Comment on above: Order Comment: Testi ng performed at [facility], [address] [place] [address] Basic Metabolic Profileon ANIO 12 mmol/L Normal 12-20 [facility] Comment on above: Order Comment: Testi ng performed at [facility], [address] [place] [address] Calcium [Mass/Vol] 9.1 mg/dL Normal 8.4-10.2 [facility] Comment on above: Order Comment: [facility], [address] [place] [address] Chloride [Moles/Vol] 106 mmol/L Normal 98-107 [facility] Comment on above: Order Comment: [facility], [address] [place] [address] CO2 [Moles/Vol] 27.0 mmol/L Normal 22.0-30.0 [facility] Comment on above: Order Comment: [facility], [address] [place] [address] Creatinine [Mass/Vol] 0.6 mg/dL Normal 0.6-1.2 [facility] Comment on above: Order Comment: Testi ng performed at [facility], [address] [place] [address] Glucose [Mass/Vol] 95 mg/dL Normal 74-106 [facility] Comment on above: Order Comment: [facility], [address] [place] [address] Potassium [Moles/Vol] 4.1 mmol/L Normal 3.3-4.9 [facility] Comment on above: Order Comment: Testi ng performed at [facility], [address] [place] [address] Sodium [Moles/Vol] 141 mmol/L Normal 137-145 [facility] Comment on above: Order Comment: Testi ng performed at [facility], [address] [place] [address] Urea nitrogen [Mass/Vol] 9 mg/dL Normal 8-19 [facility] Comment on above: Order Comment: Testi ng performed at [facility], [address] [place] [address] CBC w/Auto Diffon 08-08-2022 Basophils (Bld) [#/Vol] 0.04 10*3/uL Normal 0.00-0.10 [facility] Comment on above: Order Comment: [...] is no longer indicated. Testing performed at [facility], [address] [place] [address] 26534 Basophils/100 WBC (Bld) 0.4 % Normal 0.1-1.2 [facility] Comment on above: Order Comment: [...] no longer indicated. Testing performed at [facility], [address] [place] [address] 07086 Eosinophils (Bld) [#/Vol] 0.21 10*3/uL Normal 0.00-0.40 [facility] Comment on above: Order Comment: [...] no longer indicated. Testing performed at [facility], [address] [place] [address] 06883 Eosinophils/100 WBC (Bld) 2.1 % Normal 0.7-5.8 [facility] Comment on above: Order Comment: [...] is no longer indicated. Testing performed at [facility], [address] [place] [address] 66102 Erythrocyte distribution width (RBC) [Ratio] 12.9 % Normal 11.7-14.4 [facility] Comment on above: Order Comment: [...] no longer indicated. Testing performed at [facility], [address] [place] [address] 57702 Hematocrit (Bld) [Volume fraction] 35.4 % Normal 34.1-44.9 [facility] Comment on above: Order Comment: [...] no longer indicated. Testing performed at [facility], [address] [place] [address] 35420 Hemoglobin (Bld) [Mass/Vol] 11.2 g/dL Normal 11.2-15.7 [facility] Comment on above: Order Comment: [...] no longer indicated. Testing performed at [facility], [address] [place] [address] 48482 IG % (B) 0.4 % Normal 0.0-0.4 [facility] Comment on above: Order Comment: [...] no longer indicated. Testing performed at [facility], [address] [place] [address] 48949 IG# (B) 0.04 10*3/uL High 0.00-0.00 [facility] Comment on above: Order Comment: [...] no longer indicated. Testing performed at [facility], [address] [place] [address] 99436 Lymphocytes (Bld) [#/Vol] 1.60 10*3/uL Normal 1.20-3.70 [facility] Comment on above: Order Comment: [...] no longer indicated. Testing performed at [facility], [address] [place] [address] 81049 Lymphocytes/100 WBC (Bld) 16.3 % Low 19.3-51.7 [facility] Comment on above: Order Comment: [...] no longer indicated. Testing performed at [facility], [address] [place] [address] 74122 MCH (RBC) [Entitic mass] 27.7 pg Normal 25.6-32.2 [facility] Comment on above: Order Comment: [...] no longer indicated. Testing performed at [facility], [address] [place] [address] 31118 MCHC (RBC) [Mass/Vol] 31.6 g/dL Low 32.2-35.5 [facility] Comment on above: Order Comment: [...] no longer indicated. Testing performed at [facility], [address] [place] [address] 98953 MCV (RBC) [Entitic vol] 87.4 fL Normal 79.4-94.8 [facility] Comment on above: Order Comment: [...] no longer indicated. Testing performed at [facility], [address] [place] [address] 12075 Monocytes (Bld) [#/Vol] 0.88 10*3/uL Normal 0.20-0.90 [facility] Comment on above: Order Comment: [...] is no longer indicated. Testing performed at [address] [address] Monocytes/100 WBC (Bld) 8.9 % Normal 4.7-12.5 [facility] Comment on above: Order Comment: [...] no longer indicated. Testing performed at [facility], [address] [place] [address] 79906 Neutrophils (Bld) [#/Vol] 7.07 10*3/uL High 1.60-6.10 [facility] Comment on above: Order Comment: [...] no longer indicated. Testing performed at [facility], [address] [place] [address] 09732 Neutrophils/100 WBC (Bld) 71.9 % High 34.0-71.1 [facility] Comment on above: Order Comment: [...] no longer indicated. Testing performed at [facility], [address] [place] [address] 32671 NRBC % (B) 0.0 /100{WBC} Normal 0.0-0.2 [facility] Comment on above: Order Comment: [...] is no longer indicated. Testing performed at [facility], [address] [place] [address] 43381 NRBC# (B) 0.00 10*3/uL Normal 0.00-0.00 [facility] Comment on above: Order Comment: [...] no longer indicated. Testing performed at [facility], [address] [place] [address] 96417 Platelet mean volume (Bld) [Entitic vol] 9.2 fL Low 9.4-12.3 [facility] Comment on above: Order Comment: [...] no longer indicated. Testing performed at [facility], [address] [place] [address] 79770 Platelets (Bld) [#/Vol] 315 10*3/uL Normal 182-369 [facility] Comment on above: Order Comment: [...] no longer indicated. Testing performed at [facility], [address] [place] [address] 91044 RBC (Bld) [#/Vol] 4.05 10*6/uL Normal 3.93-5.22 [facility] Comment on above: Order [...] no longer indicated. Testing performed at [facility], [address] [place] [address] 46228 RDW-SD (B) 41.0 fL Normal 36.4-46.3 [facility] Comment on above: Order Comment: [...] no longer indicated. Testing performed at [facility], [address] [place] [address] 01820 WBC (Bld) [#/Vol] 9.8 10*3/uL Normal 4.0-10.0 [facility] Comment on above: Order Comment: [...] no longer indicated. Testing performed at [facility], [address] [place] [address] NECK WITHOUT CONTRASTon 0 08-08-2022 CT [...] Schultz MD On: 08/08/2022 4:07 PM Normal [facility] EST Glomerular Filtration Ra jude 08-08-2022 EAGFR (B) >60 Normal >60 [facility] Comment on above: Order Comment: The c alculated GFR uses the (IDMS)-traceable creatinine MDRD equation and is reported in mL/min/1.73 square meters. This formula is not recommended for use with individuals with unstable creatinine concentrations, extremes in muscle mass and/or body size, or alternative diets and may not be suitable for all patient populations. Testing performed at [facility], [address] [place] [address] 79817 Result Comment: The reported eGFR is based on a non- patient, for Americans multiply the result by 1.212. Pap IG, rfx Aptima HPV, rfx 16/18,45on 06-11-2022 . . Normal [facility] Comment on above: Result Comment: Perf ormed at: WB Performed By: #### P APHR2A #### Laboratory [address] [address] [address] Jose Elias Strong DIAGNOSIS: Comment Normal [facility] Comment on above: Result Comment: NEGA TIVE FOR INTRAEPITHELIAL LESION OR MALIGNANCY. Performed at: WB Performed By: #### P APHR2A #### Laboratory [address] [address] [address] Jose Elias Strong HPV Aptima Negative Normal Negative [facility] Comment on above: Result Comment: This nucleic acid amplification test detects fourteen high-risk HPV types (16,18,31,33,35,39,45,51,52,56,58,59,66,68) without differentiation. Performed at: =G Performed By: #### P APHR2A #### Laboratory [address] [address] [address] Jose Elias Strong HPV Genotype Reflex Comment Normal [facility] Comment on above: Result Comment: Crit eria not met, HPV Genotype not performed. Performed at: WB Performed By: #### P APHR2A #### Laboratory [address] [address] [address] Jose Elias Strong Methodology: Comment Normal [facility] Comment on above: Result Comment: This liquid based ThinPrep(R) pap test was screened with the use of an image guided system. Performed at: WB Performed By: #### P APHR2A #### Laboratory [address] [address] [address] Jose Elias Strong Note: Comment Normal [facility] Comment on above: Result Comment: [...] WB Performed By: #### P APHR2A #### Laboratory [address] [address] [address] Jose Elias Strong Performed by: Comment Normal [facility] Comment on above: Result Comment: Koffi Hutchinson, Home Therapy Clinician (ASCP) Performed at: WB Performed By: #### P APHR2A #### Laboratory [address] [address] [address] Jose Elias Strong Specimen adequacy: Comment Normal [facility] Comment on above: Result Comment: Sati sfactory for evaluation. Endocervical and/or squamous metaplastic cells (endocervical component) are present. Performed at: WB Performed By: #### P APHR2A #### Laboratory [address] [place] [address] Dr. Jose Elias Strong PAP ACOG PANEL 2: 21 to 29on 11-20-2021 . . Normal [facility] Comment on above: Performed By: #### [id number] #### Laboratory [address] [place] [address] Dr. Jose Elias Strong Age Gdln ACOG Testing - Normal [facility] Comment on above: Performed By: #### [id number] #### Laboratory [address] [place] [address] Dr. Jose Elias Strong DIAGNOSIS: Comment [facility] Comment on above: Result Comment: NEGA TIVE FOR INTRAEPITHELIAL LESION OR MALIGNANCY. REACTIVE CELLULAR CHANGES AND/OR REPAIR ARE PRESENT. Performed By: #### [id number] #### Laboratory [address] [place] [address] Dr. Jose Elias Strong Electronically signed by: Comment Normal [facility] Comment on above: Result Comment: Melinda Patel MD, Pathologist Performed By: #### [id number] #### Laboratory [address] [place] [address] Dr. Jose Elias Strong Methodology: Comment [facility] Comment on above: Result Comment: This liquid based ThinPrep(R) pap test was screened with the use of an image guided system. Performed By: #### [id number] #### Laboratory [address] [place] [address] Dr. Jose Elias Strong Note: Comment [facility] Comment on above: Result Comment: The Pap smear is a screening test designed to aid in the detection of premalignant and malignant conditions of the uterine cervix. It is not a diagnostic procedure and should not be used as the sole means of detecting cervical cancer. Both false-positive and false-negative reports do occur. . Performed By: #### [id number] #### Laboratory [address] [place] [address] Dr. Jose Elias Strong Performed by: Comment Normal [facility] Comment on above: Result Comment: Bruc e Den Romero, Home Therapy Clinician (ASCP) Performed By: #### [id number] #### Laboratory [address] [place] [address] Dr. Jose Elias Strong Reflex Criteria: Comment Normal [facility] Comment on above: Result Comment: The HPV DNA reflex criteria were not met with this specimen result therefore, no HPV testing was performed. . Performed By: #### [id number] #### Laboratory [address] [place] [address] Dr. Jose Elias Strong Specimen adequacy: Comment Normal [facility] Comment on above: Result Comment: Sati sfactory for evaluation. Endocervical and/or squamous metaplastic cells (endocervical component) are present. Performed By: #### [id number] #### Laboratory [address] [place] [address] Dr. Jose Elias Strong CBC W MANUAL DIFFon 08-21-19 22 ANISOCYTOSIS 1+ Normal [facility] Comment on above: Performed By: #### T NS #### Laboratory [address] [place] [address] Dr. Jose Elias Strong ATYPICAL LYMPH # Normal [facility] Comment on above: Performed By: #### T NS #### Laboratory [address] [place] [address] Dr. Jose Elias Strong ATYPICAL LYMPH % Normal [facility] Comment on above: Performed By: #### T NS #### Laboratory [address] [place] [address] Dr. Jose Elias Strong BAND # 0.2 103/ul Normal 0.0-0.[address] [facility] Comment on above: Performed By: #### T NS #### Laboratory [address] [place] [address] Dr. Jose Elias Strong BAND % 1 % Normal 0-5 The Comment on above: Performed By: #### T NS #### Laboratory [address] [place] [address] Dr. Jose Elias Strong BASOM # 0.00 103/ul Normal 0.00-0.[address] [facility] Comment on above: Performed By: #### T NS #### Laboratory [address] [address] [address] Jose Elias Strong BASOM % 0.0 % Critically low 0.2-2.0 [facility] Comment on above: Performed By: #### T NS #### Laboratory [address] [address] [address] Jose Elias Strong BLAST # Normal [facility] Comment on above: Performed By: #### T NS #### Laboratory [address] [address] [address] Jose Elias Strong BLAST % Normal [facility] Comment on above: Performed By: #### T NS #### Laboratory [address] [address] [address] Jose Elias Strong CORRECTED WBC Normal 4.0-11.0 [facility] Comment on above: Performed By: #### T NS #### Laboratory [address] [place] [address] Dr. Jose Elias Strong EOS # 0.00 103/ul Normal 0.00-0.[address] [facility] Comment on above: Performed By: #### T NS #### Laboratory [address] [address] [address] Jose Elias Strong EOS% 0.0 % Critically low 0.9-7.0 [facility] Comment on above: Performed By: #### T NS #### Laboratory [address] [place] [address] Dr. Jose Elias Strong HCT 27.5 % Critically low 36.0-48.0 [facility] Comment on above: Performed By: #### T NS #### Laboratory [address] [place] [address] Dr. Jose Elias Strong HGB 8.1 g/dl Critically low 12.0-16.0 [facility] Comment on above: Performed By: #### T NS #### Laboratory [address] [place] [address] Dr. Jose Elias Strong LYMPHM # 1.62 103/ul Normal 1.20-3.[address] [facility] Comment on above: Performed By: #### T NS #### Laboratory [address] [address] [address] Jose Elias Strong LYMPHM% 9.0 % Critically low 20.5-60.0 [facility] Comment on above: Performed By: #### T NS #### Laboratory [address] [place] [address] Dr. Jose Elias Strong MCH 22.2 pg Critically low 26.7-34.0 [facility] Comment on above: Performed By: #### T NS #### Laboratory [address] [place] [address] Dr. Jose Elias Strong MCHC 29.5 g/dl Critically low 29.9-35.2 [facility] Comment on above: Performed By: #### T NS #### Laboratory [address] [place] [address] Dr. Jose Elias Strong MCV 75.3 fL Critically low 81.0-99.0 [facility] Comment on above: Performed By: #### T NS #### Laboratory [address] [place] [address] Dr. Jose Elias Strong METAMYELOCYTE # Normal [facility] Comment on above: Performed By: #### T NS #### Laboratory [address] [place] [address] Dr. Jose Elias Strong METAMYELOCYTE % Normal [facility] Comment on above: Performed By: #### T NS #### Laboratory [address] [place] [address] Dr. Jose Elias Strong MONOM# 1.62 103/ul Critically high 0.30-0.80 [facility] Comment on above: Performed By: #### T NS #### Laboratory [address] [place] [address] Dr. Jose Elias Strong MONOM% 9.0 % Normal 1.7-12.[address] [facility] Comment on above: Performed By: #### T NS #### Laboratory [address] [place] [address] Dr. Jose Elias Strong MPV 9.6 fL Normal 9.5-13.[address] [facility] Comment on above: Performed By: #### T NS #### Laboratory [address] [address] [address] Jose Elias Strong MYELOCYTE # Normal [facility] Comment on above: Performed By: #### T NS #### Laboratory [address] [address] [address] Jose Elias Strong MYELOCYTE % Normal [facility] Comment on above: Performed By: #### T NS #### Laboratory [address] [address] [address] Jose Elias Strong NRBC Normal [facility] Comment on above: Performed By: #### T NS #### Laboratory [address] [address] [address] Jose Elias Strong PLT 308 103/ul Normal 150-[address] [facility] Comment on above: Performed By: #### T NS #### Laboratory [address] [address] [address] Jose Elias Strong RBC 3.65 106/ul Critically low 4.20-5.40 [facility] Comment on above: Performed By: #### T NS #### Laboratory [address] [address] [address] Jose Elias Strong RDW 15.7 % Critically high 11.0-15.0 [facility] Comment on above: Performed By: #### T NS #### Laboratory [address] [address] [address] Jose Elias Strong SEG # 14.58 103/ul Critically high 1.40-6.50 [facility] Comment on above: Performed By: #### T NS #### Laboratory [address] [address] [address] Jose Elias Strong SEG % 81.0 % Critically high 43.0-75.0 [facility] Comment on above: Performed By: #### T NS #### Laboratory [address] [address] [address] Jose Elias Strong WBC 18.0 103/ul Critically high 4.0-11.0 [facility] Comment on above: Performed By: #### T NS #### Laboratory [address] [address] [address] Jose Elias Strong DRUG SCREEN RAPID (URINE)on 08-20-2021 AMP Negative Normal NEGATIVE [facility] Comment on above: Performed By: #### T NS #### Laboratory [address] [address] [address] Jose Elias Strong BAR Negative Normal NEGATIVE [facility] Comment on above: Performed By: #### T NS #### Laboratory [address] [address] [address] Jose Elias Strong BUP Negative Normal NEGATIVE [facility] Comment on above: Performed By: #### T NS #### Laboratory [address] [place] [address] Dr. Jose Elias Strong BZO Negative Normal NEGATIVE [facility] Comment on above: Performed By: #### T NS #### Laboratory [address] [place] [address] Dr. Jose Elias Strong PAXTON Negative Normal NEGATIVE [facility] Comment on above: Performed By: #### T NS #### Laboratory [address] [place] [address] Dr. Jose Elias Strong CUT-OFFS SEE BELOW Normal [facility] Comment on above: Result Comment: [...] ng/mL Performed By: #### T NS #### Laboratory [address] [place] [address] Dr. Jose Elias Strong DRUG CUT HEADER DRUG CLASS TEST SYSTEM CUT-OFF CONCENTRATIONS ARE FOLLOWS: Normal [facility] Comment on above: Performed By: #### T NS #### Laboratory [address] [place] [address] Dr. Jose Elias Strong mAMP Negative Normal NEGATIVE [facility] Comment on above: Performed By: #### T NS #### Laboratory [address] [place] [address] Dr. Jose Elias Strong MTD Negative Normal NEGATIVE [facility] Comment on above: Performed By: #### T NS #### Laboratory [address] [place] [address] Dr. Jose Elias Strong OPI Negative Normal NEGATIVE [facility] Comment on above: Performed By: #### T NS #### Laboratory [address] [place] [address] Dr. Jose Elias Strong OXY Negative Normal NEGATIVE [facility] Comment on above: Performed By: #### T NS #### Laboratory [address] [place] [address] Dr. Jose Elias Strong PCP Negative Normal NEGATIVE [facility] Comment on above: Performed By: #### T NS #### Laboratory [address] [place] [address] Dr. Jose Elias Strong PPX Negative Normal NEGATIVE [facility] Comment on above: Performed By: #### T NS #### Laboratory [address] [place] [address] Dr. Jose Elias Strong TCA Negative Normal NEGATIVE [facility] Comment on above: Performed By: #### T NS #### Laboratory [address] [place] [address] Dr. Jose Elias Strong THC Negative Normal NEGATIVE [facility] Comment on above: Performed By: #### T NS #### Laboratory [address] [place] [address] Dr. Jose Elias Strong UA (CLEAN/CATCH) PLANT ENGINEER/MICRO I F IND.on 08-20-2021 Bilirubin Ql (U) Negative Normal NEGATIVE [facility] Comment on above: Performed By: #### U MICRO, UACSIND #### Laboratory [address] [place] [address] Dr. Jose Elias Strong Clarity (U) SL CLOUDY Abnormal CLEAR [facility] Comment on above: Performed By: #### U MICRO, UACSIND #### Laboratory [address] [address] [address] Jose Elias Strong Color (U) RED Abnormal YELLOW The Comment on above: Performed By: #### U MICRO, UACSIND #### Laboratory [address] [address] [address] Jose Elias Strong Glucose Ql (U) Negative Normal NEGATIVE [facility] Comment on above: Performed By: #### U MICRO, UACSIND #### Laboratory [address] [address] [address] Jose Elias Strong Hemoglobin Ql (U) LARGE Abnormal NEGATIVE [facility] Comment on above: Performed By: #### U MICRO, UACSIND #### Laboratory [address] [address] [address] Jose Elias Strong Ketones Ql (U) 15 mg/dl Abnormal NEGATIVE [facility] Comment on above: Performed By: #### U MICRO, UACSIND #### Laboratory [address] [address] [address] Jose Elias Strong LEUKOCYTES TRACE Abnormal NEGATIVE [facility] Comment on above: Performed By: #### U MICRO, UACSIND #### Laboratory [address] [address] [address] Jose Elias Strong Nitrite Ql (U) Negative Normal NEGATIVE [facility] Comment on above: Performed By: #### U MICRO, UACSIND #### Laboratory [address] [address] [address] Jose Elias Strong pH (U) 7.0 [pH] Normal 5-[address] [facility] Comment on above: Performed By: #### U MICRO, UACSIND #### Laboratory [address] [address] [address] Jose Elias Strong SPEC GRAVITY 1.020 Normal 1.005-<=1.025 [facility] Comment on above: Performed By: #### U MICRO, UACSIND #### Laboratory [address] [address] [address] Jose Elias Strong UA PROTEIN 30 mg/dl Abnormal NEGATIVE/ TRACE The Comment on above: Performed By: #### U MICRO, UACSIND #### Laboratory [address] [place] [address] Dr. Jose Elias Strong UR MICRO IND INDICATED Normal The Comment on above: Performed By: #### U MICRO, UACSIND #### Laboratory [address] [place] [address] Dr. Jose Elias Strong Urobilinogen Qn (U) 0.2 {Maog'U}/dL Normal 0.2 - 1. 0 The Comment on above: Performed By: #### U MICRO, UACSIND #### Laboratory [address] [place] [address] Dr. Jose Elias Strong URINE MICROSCOPIC ONLYon BACTERIA NONE SEEN Normal NONE SEEN [facility] Comment on above: Performed By: #### U MICRO, UACSIND #### Laboratory [address] [place] [address] Dr. Jose Elias Strong Bacteria identified Cx Nom (U) NOT INDICATED Normal The Comment on above: Performed By: #### U MICRO, UACSIND #### Laboratory [address] [place] [address] Dr. Jose Elias Strong CAST NONE SEEN Normal NONE SEEN The Comment on above: Performed By: #### U MICRO, UACSIND #### Laboratory [address] [place] [address] Dr. Jose Elias Strong Crystals LM Nom (Urine sed) NONE SEEN Normal NONE SEEN The Comment on above: Performed By: #### U MICRO, UACSIND #### Laboratory [address] [place] [address] Dr. Jose Elias Strong Epithelial cells LM Ql (Urine sed) NONE SEEN Normal NONE SEEN /RARE The Comment on above: Performed By: #### U MICRO, UACSIND #### Laboratory [address] [place] [address] Dr. Jose Elias Strong MUCOUS NONE SEEN Normal NONE SEEN The Comment on above: Performed By: #### U MICRO, UACSIND #### Laboratory [address] [address] [address] Jose Elias Strong RBC (U) [#/Vol] /uL Abnormal 0-2 [facility] Comment on above: Performed By: #### U MICRO, UACSIND #### Laboratory [address] [address] [address] Jose Elias Strong WBC 0-2 Abnormal NONE SEEN The Comment on above: Performed By: #### U MICRO, UACSIND #### Laboratory [address] [address] [address] Jose Elias Strong CBC AUTO DIFFon 08-19-2021 BASO # 0.0 103/ul Normal 0.0-0.[address] [facility] Comment on above: Performed By: #### T NS #### Laboratory [address] [address] [address] Jose Elias Strong Basophils/100 WBC (Bld) 0.2 % Normal 0.2-2.[address] [facility] Comment on above: Performed By: #### T NS #### Laboratory [address] [address] [address] Jose Elias Strong EO # 0.1 103/ul Normal 0.0-0.[address] [facility] Comment on above: Performed By: #### T NS #### Laboratory [address] [address] [address] Jose Elias Strong Eosinophils/100 WBC (Bld) 0.7 % Critically low 0.9-7.0 The Comment on above: Performed By: #### T NS #### Laboratory [address] [address] [address] Jose Elias Strong Erythrocyte distribution width (RBC) [Ratio] 15.9 % Critically high 11.0-15.0 The Comment on above: Performed By: #### T NS #### Laboratory [address] [address] [address] Jose Elias Strong Hematocrit (Bld) [Volume fraction] 32.4 % Critically low 36.0-48.[address] [facility] Comment on above: Performed By: #### T NS #### Laboratory [address] [address] [address] Jose Elias Strong Hemoglobin (Bld) [Mass/Vol] 9.7 g/dL Critically low 12.0-16.[address] [facility] Comment on above: Performed By: #### T NS #### Laboratory [address] [place] [address] Dr. Jose Elias Strong IG # 0.19 10e3/ul Critically high 0.00-0.03 [facility] Comment on above: Performed By: #### T NS #### Laboratory [address] [place] [address] Dr. Jose Elias Strong IG % 1.4 % Critically high 0.0-0.5 [facility] Comment on above: Performed By: #### T NS #### Laboratory [address] [place] [address] Dr. Jose Elias Strong LYMPH # 1.9 103/ul Normal 1.2-3.8 The Comment on above: Performed By: #### T NS #### Laboratory [address] [place] [address] Dr. Jose Elias Strong Lymphocytes/100 WBC (Bld) 14.4 % Critically low 20.5-60.[address] [facility] Comment on above: Performed By: #### T NS #### Laboratory [address] [place] [address] Dr. Jose Elias Strong MANUAL DIFF REQ NO Normal [facility] Comment on above: Performed By: #### T NS #### Laboratory [address] [place] [address] Dr. Jose Elias Strong MCH (RBC) [Entitic mass] 22.3 pg Critically low 26.7-34.0 The Comment on above: Performed By: #### T NS #### Laboratory [address] [place] [address] Dr. Jose Elias Strong MCHC (RBC) [Mass/Vol] 29.9 g/dL Normal 29.9-35.2 The Comment on above: Performed By: #### T NS #### Laboratory [address] [address] [address] Jose Elias Strong MCV (RBC) [Entitic vol] 74.5 fL Critically low 81.0-99.[address] [facility] Comment on above: Performed By: #### T NS #### Laboratory [address] [address] [address] Jose Elias Strong MONO # 1.4 103/ul Critically high 0.3-0.8 [facility] Comment on above: Performed By: #### T NS #### Laboratory [address] [place] [address] Dr. Jose Elias Strong Monocytes/100 WBC (Bld) 10.1 % Normal 1.7-12.[address] [facility] Comment on above: Performed By: #### T NS #### Laboratory [address] [place] [address] Dr. Jose Elias Strong NEUT # 9.8 103/ul Critically high 1.4-6.5 [facility] Comment on above: Performed By: #### T NS #### Laboratory [address] [place] [address] Dr. Jose Elias Strong Neutrophils/100 WBC (Bld) 73.2 % Normal 43.0-75.[address] [facility] Comment on above: Performed By: #### T NS #### Laboratory [address] [place] [address] Dr. Jose Elias Strong Platelet mean volume (Bld) [Entitic vol] 10.0 fL Normal 9.5-13.5 The Comment on above: Performed By: #### T NS #### Laboratory [address] [place] [address] Dr. Jose Elias Strong PLT 337 103/ul Normal 150-450 The Comment on above: Performed By: #### T NS #### Laboratory [address] [place] [address] Dr. Jose Elias Strong RBC 4.35 106/ul Normal 4.20-5.40 The Comment on above: Performed By: #### T NS #### Laboratory [address] [address] [address] Jose Elias Strong WBC 13.4 103/ul Critically high 4.0-11.0 [facility] Comment on above: Performed By: #### T NS #### Laboratory [address] [place] [address] Dr. Jose Elias Strong Covid-19 PCR (CVDTB)on 08-03 SARS-CoV-2 (COVID-19) RNA [place]+probe Ql (Unsp spec) Not detected Normal NOT DETECTED The Comment on above: Result Comment: When diagnostic [...] for this test is supported by the [place] of [employer] and Human Service's declaration that [...] used). Performed By: #### C VDTBH #### Laboratory [address] [place] [address] Dr. Jose Elias Strong TYPE AND SCREENon 08-19-2021 TYPE AND SCREEN Negative Normal [facility] Comment on above: Performed By: #### T NS #### Laboratory [address] [place] [address] Dr. Jose Elias Strong GROUP B STREP CULTUREon 07-05 S. agalactiae Ag Ql (Unsp spec) Culture Observations: NEGATIVE FOR GROUP B STREPTOCOCCUS. Normal The Comment on above: Performed By: #### G BSCX #### Laboratory [address] [place] [address] Dr. Jose Elias Strong UA (CLEAN/CATCH) PLANT ENGINEER/MICRO I F IND.on 06-28-2021 Bilirubin Ql (U) Negative Normal NEGATIVE [facility] Comment on above: Performed By: #### U ACSIND, UMICRO #### Laboratory [address] [address] [address] Jose Elias Strong Clarity (U) CLEAR Normal CLEAR The Comment on above: Performed By: #### U ACSIND, UMICRO #### Laboratory [address] [address] [address] Jose Elias Strong Color (U) LT. YELLOW Normal YELLOW [facility] Comment on above: Performed By: #### U ACSIND, UMICRO #### Laboratory [address] [place] [address] Dr. Jose Elias Strong Glucose Ql (U) Negative Normal NEGATIVE [facility] Comment on above: Performed By: #### U ACSIND, UMICRO #### Laboratory [address] [place] [address] Dr. Jose Elias Strong Hemoglobin Ql (U) Negative Normal NEGATIVE [facility] Comment on above: Performed By: #### U ACSIND, UMICRO #### Laboratory [address] [place] [address] Dr. Jose Elias Strong Ketones Ql (U) Negative Normal NEGATIVE [facility] Comment on above: Performed By: #### U ACSIND, UMICRO #### Laboratory [address] [place] [address] Dr. Jose Elias Strong LEUKOCYTES TRACE Abnormal NEGATIVE The Comment on above: Performed By: #### U ACSIND, UMICRO #### Laboratory [address] [place] [address] Dr. Jose Elias Strong Nitrite Ql (U) Negative Normal NEGATIVE [facility] Comment on above: Performed By: #### U ACSIND, UMICRO #### Laboratory [address] [place] [address] Dr. Jose Elias Strong pH (U) 6.5 [pH] Normal 5-[address] [facility] Comment on above: Performed By: #### U ACSIND, UMICRO #### Laboratory [address] [address] [address] Jose Elias Strong SPEC GRAVITY 1.015 Normal 1.005-<=1.025 [facility] Comment on above: Performed By: #### U ACSMICHAEL UMICRO #### Laboratory [address] [address] [address] Jose Elias Strong UA PROTEIN Negative Normal NEGATIVE/ TRACE The Comment on above: Performed By: #### U ACSMICHAEL UMICRO #### Laboratory [address] [place] [address] Dr. Jose Elias Strong UR MICRO IND INDICATED Normal The Comment on above: Performed By: #### U ACSMICHAEL UMICRO #### Laboratory [address] [place] [address] Dr. Jose lEias Strong Urobilinogen Qn (U) 0.2 {Mago'U}/dL Normal 0.2 - 1. 0 The Comment on above: Performed By: #### U ACSMICHAEL UMICRO #### Laboratory [address] [place] [address] Dr. Jose Elias Strong URINE MICROSCOPIC ONLYon AMORPHOUS CRYSTALS FEW Normal [facility] Comment on above: Performed By: #### U ACSMICHAEL UMICRO #### Laboratory [address] [place] [address] Dr. Jose Elias Strong BACTERIA TRACE Abnormal NONE SEEN [facility] Comment on above: Performed By: #### U ACSMICHAEL UMICRO #### Laboratory [address] [place] [address] Dr. Jose Elias Strong Bacteria identified Cx Nom (U) NOT INDICATED Normal The Comment on above: Performed By: #### U ACSMICHAEL UMICRO #### Laboratory [address] [place] [address] Dr. Jose Elias Strong CAST NONE SEEN Normal NONE SEEN [facility] Comment on above: Performed By: #### U ACSMICHAEL UMICRO #### Laboratory [address] [place] [address] Dr. Jose Elias Strong Crystals LM Nom (Urine sed) SEEN Abnormal NONE SEEN The Comment on above: Performed By: #### U ACSIND, UMICRO #### Laboratory [address] [place] [address] Dr. Jose Elias Strong Epithelial cells LM Ql (Urine sed) RARE Normal NONE SEEN /RARE The Comment on above: Performed By: #### U ACSIND, UMICRO #### Laboratory [address] [place] [address] Dr. Jose Elias Strong MUCOUS TRACE Abnormal NONE SEEN The Comment on above: Performed By: #### U ACSIND, UMICRO #### Laboratory [address] [place] [address] Dr. Jose Elias Strong RBC 0-2 Normal 0-[address] [facility] Comment on above: Performed By: #### U ACSMICHAEL, UMICRO #### Laboratory [address] [place] [address] Dr. Jose Elias Strong WBC 2-5 Abnormal NONE SEEN The Comment on above: Performed By: #### U ACSMICHAEL, UMICRO #### Laboratory [address] [place] [address] Dr. Jose Elias Strogn CBC AUTO DIFFon 06-19-2021 BASO # 0.0 103/ul Normal 0.0-0.[address] [facility] Comment on above: Performed By: #### C BC #### Laboratory [address] [place] [address] Dr. Jose Elias Strong Basophils/100 WBC (Bld) 0.3 % Normal 0.2-2.0 The Comment on above: Performed By: #### C BC #### Laboratory [address] [place] [address] Dr. Jose Elias Strong EO # 0.2 103/ul Normal 0.0-0.7 The Comment on above: Performed By: #### C BC #### Laboratory [address] [place] [address] Dr. Jose Elias Strong Eosinophils/100 WBC (Bld) 2.0 % Normal 0.9-7.0 The Comment on above: Performed By: #### C BC #### Laboratory [address] [address] [address] Jose Elias Strong Erythrocyte distribution width (RBC) [Ratio] 13.6 % Normal 11.0-15.[address] [facility] Comment on above: Performed By: #### C BC #### Laboratory [address] [place] [address] Dr. Jose Elias Strong Hematocrit (Bld) [Volume fraction] 29.4 % Critically low 36.0-48.[address] [facility] Comment on above: Performed By: #### C BC #### Laboratory [address] [place] [address] Dr. Jose Elias Strong Hemoglobin (Bld) [Mass/Vol] 9.5 g/dL Critically low 12.0-16.[address] [facility] Comment on above: Performed By: #### C BC #### Laboratory [address] [place] [address] Dr. Jose Elias Strong IG # 0.14 10e3/ul Critically high 0.00-0.03 [facility] Comment on above: Performed By: #### C BC #### Laboratory [address] [place] [address] Dr. Jose Elias Strong IG % 1.4 % Critically high 0.0-0.5 [facility] Comment on above: Performed By: #### C BC #### Laboratory [address] [place] [address] Dr. Jose Elias Strong LYMPH # 1.6 103/ul Normal 1.2-3.[address] [facility] Comment on above: Performed By: #### C BC #### Laboratory [address] [place] [address] Dr. Jose Elias Strong Lymphocytes/100 WBC (Bld) 15.5 % Critically low 20.5-60.[address] [facility] Comment on above: Performed By: #### C BC #### Laboratory [address] [place] [address] Dr. Jose Elias Strong MANUAL DIFF REQ NO Normal [facility] Comment on above: Performed By: #### C BC #### Laboratory [address] [address] [address] Jose Elias Strong MCH (RBC) [Entitic mass] 26.8 pg Normal 26.7-34.[address] [facility] Comment on above: Performed By: #### C BC #### Laboratory [address] [address] [address] Jose Elias Strong MCHC (RBC) [Mass/Vol] 32.3 g/dL Normal 29.9-35.2 The Comment on above: Performed By: #### C BC #### Laboratory [address] [address] [address] Jose Elias Strong MCV (RBC) [Entitic vol] 82.8 fL Normal 81.0-99.0 The Comment on above: Performed By: #### C BC #### Laboratory [address] [place] [address] Dr. Jose Elias Strong MONO # 1.2 103/ul Critically high 0.3-0.8 [facility] Comment on above: Performed By: #### C BC #### Laboratory [address] [address] [address] Jose Elias Strong Monocytes/100 WBC (Bld) 12.2 % Critically high 1.7-12.[address] [facility] Comment on above: Performed By: #### C BC #### Laboratory [address] [place] [address] Dr. Jose Elias Strong NEUT # 7.0 103/ul Critically high 1.4-6.5 [facility] Comment on above: Performed By: #### C BC #### Laboratory [address] [place] [address] Dr. Jose Elias Strong Neutrophils/100 WBC (Bld) 68.6 % Normal 43.0-75.0 The Comment on above: Performed By: #### C BC #### Laboratory [address] [place] [address] Dr. Jose Elias Strong Platelet mean volume (Bld) [Entitic vol] 9.1 fL Critically low 9.5-13.5 The Comment on above: Performed By: #### C BC #### Laboratory [address] [address] [address] Jose Elias Strong PLT 309 103/ul Normal 150-[address] [facility] Comment on above: Performed By: #### C BC #### Laboratory [address] [address] [address] Jose Elias Strong RBC 3.55 106/ul Critically low 4.20-5.40 [facility] Comment on above: Performed By: #### C BC #### Laboratory [address] [address] [address] Jose Elias Strong WBC 10.1 103/ul Normal 4.0-11.[address] [facility] Comment on above: Performed By: #### C BC #### Laboratory [address] [address] [address] Jose Elias Strong GLYCOHEMOGLOBIN A1Con 2021 ADA RECOMMENDATION ADA THERAPEUTIC TARGET 6.0 - 7.0 ACTION SUGGESTED > 7.[address] [facility] Comment on above: Performed By: #### T NS #### Laboratory [address] [address] [address] Jose Elias Strong Glucose [Mass/Vol] 97 mg/dL Normal [facility] Comment on above: Performed By: #### T NS #### Laboratory [address] [address] [address] Jose Elias Strong HbA1c (Bld) [Mass fraction] 5.0 % Normal <=6.[address] [facility] Comment on above: Performed By: #### T NS #### Laboratory [address] [address] [address] Jose Elias Strong Consenton 10-24-2020 Consent [id number] .00CD:127 Normal [facility] In office Testingon 10-25-19 21 In office Testing [id number] 1.00CD:127 Normal [facility] Registrationon 10-24-2020 Registration [id number] .00CD:[address] [facility] Registration [id number] .00CD:[address] [facility] Vital Signs Date Time Vital Sign Value Performing Clinician Leslie garrett 06-12-2023 11:020500 Body mass index (BMI) [Ratio] 30.26 kg/m2 Mary Venkat DO Work Phone: [facility] 06-12-2023 11:02-050 Body weight 77.47 kg Mary Venkat DO Work Phone: [facility] 06-12-2023 11:02-0500 Diastolic blood pressure 70 mm[Hg] Mary Venkat DO Work Phone: [facility] 06-12-2023 11:02-0500 Systolic blood pressure 118 mm[Hg] Mary Venkat DO Work Phone: [facility] Encounters Encounter Date Encounter Type Care Provider Facility Start: 06-12-2023 End: 06-12-2023 ambulatory MARY VENKAT Not Available Start: 06-12-2023 End: 06-12-2023 Office outpatient visit 15 minutes Mary Venkat DO Work Phone: [facility] Comment on above: Third trimester preg jun Start: 05-29-2023 End: 05-29-2023 ambulatory ERIKA CHAN Not Available Start: 04-23-2023 End: 04-23-2023 ambulatory MARY VENKAT Not Available Start: 03-19-2023 End: 03-19-2023 ambulatory MARY VENKAT Not Available Start: 12-10-2022 ambulatory ALEXANDER Myers [facility] Start: 11-19-2022 End: 11-19-2022 ambulatory YOMAIRA LAWLER [facility] Start: 10-28-2022 End: 10-29[facility]: 08-29-2022 ambulatory Y[facility]IRA LAWLER [facility] Start: 08-19-2022 End: 08-19-2022 Emergency department patient visit YOMAIRA LAWLER [facility] Start: 08-08-2022 End: 08-08-2022 Emergency department patient visit JERRY WALLS [facility] Start: 06-04-2022 End: 06-04-2022 ambulatory [...] Routine [facility] [address] [place] [id number] Erika Chan PA [address] [place] [address] [facility] Payers Date Payer Category Payer Medicaid [id number] 2022 Medicaid [employer] [place] [id number] 2022-Present [address] [place] [address] [id number] 1995 Unknown [id number] 2.16.840.1.974494.3.579.2.593 1995 Unknown [id number] 2.16.840.1.065235.3.579.2.593 1995 Unknown [id number] 2.16.840.1.720340.3.579.2.593 1995 Unknown [id number] 2.16.840.1.012464.3.579.2.593 1995 Unknown [id number] 2.16.840.1.347249.3.579.2.593 1995 Unknown [id number] 2.16.840.1.344633.3.579.2.593 1995 Unknown [id number] 2.16.840.1.647232.3.579.2.593 1995 Unknown [id number] 2.16.840.1.149548.3.579.2.593 1995 Unknown [id number] 2.16.840.1.967346.3.579.2.121 1995 Unknown [id number] 2.16.840.1.353898.3.579.2.1212 1995 Unknown [id number] 2.16.840.1.697246.3.579.2.121 1995 Unknown [id number] 2.16.840.1.718936.3.579.2.1212 1995 Unknown [id number] 2.16.840.1.796647.3.579.2.1212 1995 Unknown [id number] 2.16.840.1.548950.3.579.2.1213 1995 Unknown [id number] 2.16.840.1.296085.3.579.2.9 1995 Unknown [id number] 2.16.840.1.412655.3.579.2.9 1995 Unknown [id number] 2.16.840.1.075487.3.579.2.9 1995 Unknown [id number] 2.16.840.1.380689.3.579.2.1259 1959 Unknown [id number] Social History Date Type Detail Facility Start: 10-21-2022 Tobacco smoking stat [facility] Never smoked tobacco [facility] Start: [...] Ambulatory Problems Diagnosis Date Noted Acute asthma ([facility]) 12/03/2022 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 12/03/2022 Neck swelling 08/19/2022 Schizoaffective disorder ([facility]) 12/03/2022 Resolved Ambulatory Problems Diagnosis Date Noted No Resolved Ambulatory Problems Past Medical History: Diagnosis Date BMI 24.0-24.9, adult Depot contraception Encounter for IUD insertion Encounter for Papanicolaou cervical smear to confirm findings of recent normal smear following initial abnormal smear Intrauterine device surveillance Schizo-affective psychosis ([facility]) Urine test negative Family History Problem Relation [...] nursing note reviewed. Exam conducted with a music therapy teacher present. Vitals: Estimated body mass index is [...] section and content) DATE CREATED AUTHOR 10/25/2020 [facility] DATE CREATED AUTHOR AUTHOR'S ORGANIZ ATION 06/11/2022 [facility] DATE CREATED AUTHOR AUTHOR'S ORGANIZ ATION 12/16/2022 [facility] DATE CREATED AUTHOR AUTHOR'S ORGANIZ ATION 06/13/2023 [facility] EPIC Reason for Visit [...] BE BASED ON THE PRIMARY CLINICAL RECORDS. [employer] provides no warranty or guarantee of the accuracy or completeness of information in this document.
[2023-06-27 19:04] VITALS: BP 97/60; PULSE 95
--- OUTSIDE RECORDS SUMMARY | 2023-07-04 07:43 | XMS_ITS | CCD ---
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 Name Role Phone VENKAT, DR HERNANDEZ Admitting [...] Unavail able ALEXANDER GREER Attending Unavaila ble NOSANODaniel, YOMAIRA GUILLEN Attending Unavailab le NOSANOV, YOMAIRA GUILLEN Admitting Unavailab le NOSANOV, YOMAIRA GUILLEN Attending Unavailab le NOSANOV, YOMAIRA GUILLEN Consulting Unavailab le ALZUHAILI, ANAS Attending Unavailable ALZUHAILI, ANAS Attending Unavailable Unavailable Primary Care Provider Unavailabl e VENKAT, MARY Attending Unavailable ROCIO, ERIKA Attending Unavailable VENKAT, MARY Attending Unavailable ROCIO, ERIKA Attending Unavailable VENKAT, MARY Attending Unavailable Allergies Allergy Classification Reported Allergen(s) Allergy Type Date of Onset Reaction(s) Facility (2 sources) Latex; Translations: [LATEX] Drug allergy (disorder) 6 [facility] Repository (2 sources) Leucine; Translations: [NICKEL] Drug Allergy 7 [facility] (2 sources) Penicillins; Translations: [PENICILLINS] Drug allergy (disorder) 7 [facility] Repository (1 source) Shellfish Drug allergy (disorder) 7 [facility] (2 sources) Iodine; Translations: [IODINE] Drug Allergy 3 [facility] Repository (1 source) SHELLFISH CONTAINING PRODUCTS; Translations: [SHELLFISH CONTAINING PRODUCTS] Propensity to adverse reactions to drug (disorder) 3 [facility] Repository (1 source) VENOM-HONEY BEE; Translations: [VENOM-HONEY BEE] Propensity to adverse reactions to drug (disorder) 3 [facility]ository (1 source) Amoxicillin Drug Allergy 3 Unknown [facility] (1 source) Bee pollen Allergy to substance 3 Unknown [facility] (1 source) Honey bee venom Propensity to adverse reactions 3 [facility] (1 source) Latex Allergy to substance 3 Unknown [facility] (1 source) nickel sulfate Drug Allergy 3 [facility] (1 source) Penicillin G Drug Allergy 3 Unknown [facility] (1 source) Shellfish-Derive d Products Drug Allergy 3 Unknown [facility] Medications Current Medications Medication Drug Class(es) Dates Sig (Normalized) Sig (Original) [id number] 200 actuat albuterol 0.09 mg/actuat metered dose [...] sexual mode of transmission complicating childbirth; Translations: [[facility] INF SEXL TRNSMS COMP CHILDBIRTH] Onset: 08-19-2021 Episodic Other complications of ; puerperium affecting management of mother (1 source) Other mental disorders complicating childbirth; Translations: [[facility] MENTAL D/O COMP CHILDBIRTH] Onset: 08-30-2021 Episodic Other complications of (4 sources) Other specified related conditions, third trimester; Translations: [[facility] SPEC PREG RELATED COND 3RD TRI] [...] UA Negative Negative - 4(70) +++ mg/dL [facility] Blood, UA Negative Negative - 50 Yovany/mcL [facility] Clarity, UA Clear [facility] Color, UA Yellow [facility] Glucose, UA Negative Negative - 2000(110) ++++ mg/dL [facility] Interpretation and review of laboratory results Abnormal [facility] Ketones, UA Negative Negative - 160(16) ++++ mg/dL [facility] Leukocytes, UA Positive Negative - 500+++ Jamey/mcL [facility] Nitrite, UA Negative Negative - Positive [facility] pH, UA 5.5 5 - 9 [facility] Protein, UA Positive Negative - 2000(20) ++++ mg/dL [facility] Spec Grav, UA 1.020 1 - 1.03 [facility] Urobilinogen, UA 1.0 0.2 - 12 mg/dL [facility] HCG, Urineon 11-19-2022 Beta HCG ( test) [...] for all patient populations. Testing performed at [facility], [address] [place] [address] 79123 Result Comment: Note : This test provides only a presumptive diagnosis for . If the HCG result is inconsistent with clinical evidence, results should be confirmed with an alternative method, such as a quantitative HCG. Basic Metabolic Profileon ANIO 11 mmol/L Low 12-20 [facility] Comment on above: Order Comment: Testi ng performed at [facility], [address] [place] [address] 82369 Calcium [Mass/Vol] 9.5 mg/dL Normal 8.4-10.2 [facility] Comment on above: Order Comment: Testi ng performed at [facility], [address] [place] [address] 65698 Chloride [Moles/Vol] 107 mmol/L Normal 98-107 [facility] Comment on above: Order Comment: Testi ng performed at [facility], [address] [place] [address] 43665 CO2 [Moles/Vol] 23.0 mmol/L Normal 22.0-30.0 [facility] Comment on above: Order Comment: Testi ng performed at [facility], [address] [place] [address] 20652 Creatinine [Mass/Vol] 0.7 mg/dL Normal 0.6-1.2 [facility] Comment on above: Order Comment: Testi ng performed at [facility], [address] [place] [address] 75034 Glucose [Mass/Vol] 118 mg/dL High 74-106 [facility] Comment on above: Order Comment: Testi ng performed at [facility], [address] [place] [address] 30959 Potassium [Moles/Vol] 4.1 mmol/L Normal 3.3-4.9 [facility] Comment on above: Order Comment: Testi ng performed at [facility], [address] [place] [address] 69060 Sodium [Moles/Vol] 137 mmol/L Normal 137-145 [facility] Comment on above: Order Comment: Testi ng performed at [facility], [address] [place] [address] 57626 Urea nitrogen [Mass/Vol] 14 mg/dL Normal 8-19 [facility] Comment on above: Order Comment: Testi ng performed at [facility], [address] [place] [address] 82040 CBC w/Auto Diffon 08-19-2022 Basophils (Bld) [#/Vol] [...] is no longer indicated. Testing performed at [facility], [address] [place] [address] 55487 Eosinophils (Bld) [#/Vol] 0.05 10*3/uL Normal 0.00-0.40 [...] is no longer indicated. Testing performed at [facility], [address] [place] [address] 81394 Erythrocyte distribution width (RBC) [Ratio] 13.3 % [...] is no longer indicated. Testing performed at [facility], [address] [place] [address] 44330 Hematocrit (Bld) [Volume fraction] 36.1 % Normal [...] no longer indicated. Testing performed at [facility], [address] [place] [address] 12274 Hemoglobin (Bld) [Mass/Vol] 12.0 g/dL Normal 11.2-15.7 [...] is no longer indicated. Testing performed at [facility], [address] [place] [address] 81859 IG % (B) 0.6 % High 0.0-0.4 [...] no longer indicated. Testing performed at [facility], [address] [place] [address] 74429 IG# (B) 0.14 10*3/uL High 0.00-0.00 [facility] [...] no longer indicated. Testing performed at [facility], [address] [place], [place] [phone] Lymphocytes (Bld) [#/Vol] 0.81 10*3/uL Low 1.20-3.70 [...] no longer indicated. Testing performed at [facility], [address] [place] [address] 70014 MCH (RBC) [Entitic mass] 28.5 pg Normal [...] no longer indicated. Testing performed at [facility], [address] [place] [address] 80961 MCHC (RBC) [Mass/Vol] 33.2 g/dL Normal 32.2-35.5 [...] no longer indicated. Testing performed at [facility], [address] [place] [address] 58365 MCV (RBC) [Entitic vol] 85.7 fL Normal [...] no longer indicated. Testing performed at [facility], [address] [place] [address] 26778 Monocytes (Bld) [#/Vol] 1.81 10*3/uL High 0.20-0.90 [...] is no longer indicated. Testing performed at [facility], [address] [place] [address] 43813 Neutrophils (Bld) [#/Vol] 20.04 10*3/uL High 1.60-6.10 [...] is no longer indicated. Testing performed at [facility], [address] [place] [address] 09399 NRBC % (B) 0.0 /100{WBC} Normal 0.0-0.2 [...] no longer indicated. Testing performed at [facility], [address] [place] [address] 24355 NRBC# (B) 0.00 10*3/uL Normal 0.00-0.00 [facility] [...] no longer indicated. Testing performed at [facility], [address] [place] [address] 71125 Platelet mean volume (Bld) [Entitic vol] 9.9 [...] no longer indicated. Testing performed at [facility], [address] [place] [address] 36922 Platelets (Bld) [#/Vol] 267 10*3/uL Normal 182-369 [...] is no longer indicated. Testing performed at [facility], [address] [place] [address] 32818 RBC (Bld) [#/Vol] 4.21 10*6/uL Normal 3.93-5.22 [facility] Comment on above: Order Comment: Immature Gran [...] no longer indicated. Testing performed at [facility], [address] [place] [address] 36734 RDW-SD (B) 41.1 fL Normal 36.4-46.3 [facility] [...] is no longer indicated. Testing performed at [facility], [address] [place] [address] 63258 WBC (Bld) [#/Vol] 22.9 10*3/uL High 4.0-10.0 [facility] Comment on above: Order Comment: Immature Gran [...] is no longer indicated. Testing performed at [facility], [address] [place] [address] NECK WITHOUT CONTRASTon 0 08-19-2022 CT [...] all patient populations. Testing performed at [facility], [address] [place] [address] 50465 Result Comment: The reported eGFR is based on a non- patient, for Americans multiply the result by 1.212. HCG, Serumon 08-19-2022 HCGS Negative Normal [facility] Comment on above: Order Comment: Testi ng performed at [facility], [address] [place] [address] 63700 Result Comment: Note : This test provides only a presumptive diagnosis for . If the HCG result is inconsistent with clinical evidence, results should be confirmed with an alternative method, such as a quantitative HCG. Man Diffon 08-19-2022 Eos, Diff 2 % Normal 0-6 [facility] Comment on above: Order Comment: Testi ng performed at [facility], [address] [place] [address] 51763 Lymphocytes/100 WBC (Bld) 3 % Low 20-53 [facility] Comment on above: Order Comment: Testi ng performed at [facility], [address] [place] [address] 92816 [place], Diff 6 % Normal 5-12 [facility] Comment on above: Order Comment: Testi ng performed at [facility], [address] [place] [address] 49351 Segs. Diff 89 % High 34-70 [facility] Comment on above: Order Comment: Testi ng performed at [facility], [place] [address] Slide Scan Normal Normal Normal [facility] Comment on above: Order Comment: Testi ng performed at [facility], [address] [place] [address] Basic Metabolic Profileon ANIO 12 mmol/L Normal 12-20 [facility] Comment on above: Order Comment: Testi ng performed at [facility], [place] [address] Calcium [Mass/Vol] 9.1 mg/dL Normal 8.4-10.2 [facility] Comment on above: Order Comment: [facility], [address] [place] [address] Chloride [Moles/Vol] 106 mmol/L Normal 98-107 [facility] Comment on above: Order Comment: [facility], [address] [place] [address] CO2 [Moles/Vol] 27.0 mmol/L Normal 22.0-30.0 [facility] Comment on above: Order Comment: Testi ng performed at [facility], [place] [address] Creatinine [Mass/Vol] 0.6 mg/dL Normal 0.6-1.2 [facility] Comment on above: Order Comment: Testi ng performed at [facility], [place] [address] Glucose [Mass/Vol] 95 mg/dL Normal 74-106 [facility] Comment on above: Order Comment: Testi ng performed at [facility], [address] [place] [address] Potassium [Moles/Vol] 4.1 mmol/L Normal 3.3-4.9 [facility] Comment on above: Order Comment: Testi ng performed at [facility], [address] [place] [address] Sodium [Moles/Vol] 141 mmol/L Normal 137-145 [facility] Comment on above: Order Comment: Testi ng performed at [facility], [place] [address] Urea nitrogen [Mass/Vol] 9 mg/dL Normal 8-19 [facility] Comment on above: Order Comment: Testi ng performed at [facility], [address] [place] [address] CBC w/Auto Diffon 08-08-2022 Basophils (Bld) [#/Vol] [...] is no longer indicated. Testing performed at [facility], [address] [place] [address] 67648 Basophils/100 WBC (Bld) 0.4 % Normal 0.1-1.2 [...] no longer indicated. Testing performed at [facility], [address] [place] [address] 27331 Eosinophils (Bld) [#/Vol] 0.21 10*3/uL Normal 0.00-0.40 [...] no longer indicated. Testing performed at [facility], [address] [place] [address] 80345 Eosinophils/100 WBC (Bld) 2.1 % Normal 0.7-5.8 [...] is no longer indicated. Testing performed at [facility], [address] [place] [address] 64630 Erythrocyte distribution width (RBC) [Ratio] 12.9 % [...] no longer indicated. Testing performed at [facility], [address] [place] [address] Hematocrit (Bld) [Volume fraction] 35.4 % Normal [...] no longer indicated. Testing performed at [facility], [address] [place], [place] [address] Hemoglobin (Bld) [Mass/Vol] 11.2 g/dL Normal 11.2-15.7 [...] no longer indicated. Testing performed at [facility], [address] [place] [address] 97280 IG % (B) 0.4 % Normal 0.0-0.4 [...] no longer indicated. Testing performed at [facility], [address] [place] [address] 20560 IG# (B) 0.04 10*3/uL High 0.00-0.00 [facility] [...] no longer indicated. Testing performed at [facility], [address] [place] [address] 60636 Lymphocytes (Bld) [#/Vol] 1.60 10*3/uL Normal 1.20-3.70 [...] no longer indicated. Testing performed at [facility], [address] [place] [address] 51313 Lymphocytes/100 WBC (Bld) 16.3 % Low 19.3-51.7 [...] is no longer indicated. Testing performed at [facility], [address] [place] [address] 64441 MCH (RBC) [Entitic mass] 27.7 pg Normal [...] is no longer indicated. Testing performed at [facility], [address] [place] [address] 20276 MCHC (RBC) [Mass/Vol] 31.6 g/dL Low 32.2-35.5 [...] no longer indicated. Testing performed at [facility], [address] [place] [address] 77779 MCV (RBC) [Entitic vol] 87.4 fL Normal [...] no longer indicated. Testing performed at [facility], [address] [place] [address] 80439 Monocytes (Bld) [#/Vol] 0.88 10*3/uL Normal 0.20-0.90 [...] no longer indicated. Testing performed at [facility], [address] [place] [address] 66822 Monocytes/100 WBC (Bld) 8.9 % Normal 4.7-12.5 [...] is no longer indicated. Testing performed at [facility], [address] [place] [address] 01958 Neutrophils (Bld) [#/Vol] 7.07 10*3/uL High 1.60-6.10 [...] no longer indicated. Testing performed at [facility], [address] [place] [address] 58729 Neutrophils/100 WBC (Bld) 71.9 % High 34.0-71.1 [...] no longer indicated. Testing performed at [facility], [address] [place] [address] 52009 NRBC % (B) 0.0 /100{WBC} Normal 0.0-0.2 [...] is no longer indicated. Testing performed at [facility], [address] [place] [address] 78185 NRBC# (B) 0.00 10*3/uL Normal 0.00-0.00 [facility] [...] no longer indicated. Testing performed at [facility], [address] [place] [address] 59298 Platelet mean volume (Bld) [Entitic vol] 9.2 [...] no longer indicated. Testing performed at [facility], [address] [place] [address] 97510 Platelets (Bld) [#/Vol] 315 10*3/uL Normal 182-369 [...] no longer indicated. Testing performed at [facility], [address] [place] [address] 11074 RBC (Bld) [#/Vol] 4.05 10*6/uL Normal 3.93-5.22 [facility] Comment on above: Order Comment: Immature Gran [...] no longer indicated. Testing performed at [facility], [address] [place] [address] 38718 RDW-SD (B) 41.0 fL Normal 36.4-46.3 [facility] [...] no longer indicated. Testing performed at [facility], [address] [place] [address] 98676 WBC (Bld) [#/Vol] 9.8 10*3/uL Normal 4.0-10.0 [facility] Comment on above: Order Comment: [...] no longer indicated. Testing performed at [facility], [address] [place] [address] NECK WITHOUT CONTRASTon 0 08-08-2022 CT [...] all patient populations. Testing performed at [facility], [address] [place] [address] 54537 Result Comment: The reported eGFR is based on a non- patient, for Americans multiply the result by 1.212. Pap IG, rfx Aptima HPV, rfx 16/18,45on 06-11-2022 . . Normal [facility] Comment on above: Result Comment: Perf ormed at: WB Performed By: #### P APHR2A #### [facility] [address] [place], [place] [address] Dr. [facility] DIAGNOSIS: Comment Normal [facility] Comment on above: Result Comment: NEGA TIVE FOR INTRAEPITHELIAL LESION OR MALIGNANCY. Performed at: WB Performed By: #### P APHR2A #### [facility] [address] [place] [address] Dr. [facility] HPV Aptima Negative Normal Negative [facility] Comment on above: Result Comment: This nucleic acid amplification test detects fourteen high-risk HPV types (16,18,31,33,35,39,45,51,52,56,58,59,66,68) without differentiation. Performed at: =G Performed By: #### P APHR2A #### [facility] [address] [place] [address] [address] [facility] HPV Genotype Reflex Comment Normal [facility] Comment on above: Result Comment: Crit eria not met, HPV Genotype not performed. Performed at: WB Performed By: #### P APHR2A #### [facility] [address] [place] [address] Dr. Jose [facility] Methodology: Comment Normal [facility] Comment on above: Result Comment: This liquid based ThinPrep(R) pap test was screened with the use of an image guided system. Performed at: WB Performed By: #### P APHR2A #### [facility] [address] [place] [address] Dr. Jose [facility]as [facility] Note: Comment Normal [facility] Comment on above: Result Comment: The [...] WB Performed By: #### P APHR2A #### [facility] [address] [place] [address] Dr. Jose [facility]as [facility] Performed by: Comment Normal [facility] Comment on above: Result Comment: Koffi Hutchinson, Specialty Therapist (ASCP) Performed at: WB Performed By: #### P APHR2A #### [facility] [address] [place] [address] Dr. [facility] Specimen adequacy: Comment Normal [facility] Comment on above: Result Comment: Sati sfactory for evaluation. Endocervical and/or squamous metaplastic cells (endocervical component) are present. Performed at: WB Performed By: #### P APHR2A #### [facility] [address] [place] [address] Dr. Jose [facility] PAP ACOG PANEL 2: 21 to 29on 11-20-2021 . . Normal [facility] Comment on above: Performed By: #### [id number] #### [facility] [address] [place] [address] Dr. Jose [facility]as Strong Age Gdln ACOG Testing - [facility] Comment on above: Performed By: #### [id number] #### [facility] [address] [place] [address] Dr. Jose [facility] DIAGNOSIS: Comment [facility] Comment on above: Result Comment: NEGA TIVE FOR INTRAEPITHELIAL LESION OR MALIGNANCY. REACTIVE CELLULAR CHANGES AND/OR REPAIR ARE PRESENT. Performed By: #### [id number] #### [facility] [address] [place] [address] Dr. Jose [facility]as [facility] Electronically signed by: Comment Normal [facility] Comment on above: Result Comment: Melinda Patel MD, Pathologist Performed By: #### [id number] #### [facility] [address] [place] [address] Dr. Jose [facility]as [facility] Methodology: Comment [facility] Comment on above: Result Comment: This liquid based ThinPrep(R) pap test was screened with the use of an image guided system. Performed By: #### [id number] #### [facility] [address] [place] [address] Dr. Jose Elias Strong Note: Comment [facility] Comment on above: Result Comment: The Pap smear is a screening test designed to aid in the detection of premalignant and malignant conditions of the uterine cervix. It is not a diagnostic procedure and should not be used as the sole means of detecting cervical cancer. Both false-positive and false-negative reports do occur. . Performed By: #### [id number] #### [facility] [address] [place] [address] Dr. Jose Elias Strong Performed by: Comment Normal [facility] Comment on above: Result Comment: Bruc e Den Romero, Specialty Therapist (ASCP) Performed By: #### [id number] #### [facility] [address] [place] [address] Dr. Jose Elias [facility] Reflex Criteria: Comment Normal [facility] Comment on above: Result Comment: The HPV DNA reflex criteria were not met with this specimen result therefore, no HPV testing was performed. . Performed By: #### [id number] #### [facility] [address] [place] [address] Dr. Jose Elias Strong Specimen adequacy: Comment Normal [facility] Comment on above: Result Comment: Sati sfactory for evaluation. Endocervical and/or squamous metaplastic cells (endocervical component) are present. Performed By: #### 4 [id number] #### [facility] [address] [place] [address] Dr. Jose [facility]as [facility] CBC W MANUAL DIFFon 08-21-19 22 ANISOCYTOSIS 1+ Normal [facility] Comment on above: Performed By: #### T NS #### [facility] [address] [place] [address] Dr. Jose [facility] ATYPICAL LYMPH # Normal [facility] Comment on above: Performed By: #### T NS #### [facility] [address] [place] [address] Dr. Jose Elias [facility] ATYPICAL LYMPH % Normal [facility] Comment on above: Performed By: #### T NS #### [facility] [address] [place] [address] Dr. Jose [facility]as [facility] BAND # 0.2 103/ul Normal 0.0-0.3 [facility] Comment on above: Performed By: #### T NS #### [facility] Laboratory [address] [place] [address] Dr. Jose Elias Strong BAND % 1 % Normal 0-5 [facility] Comment on above: Performed By: #### T NS #### [facility] [address] [place] [address] Dr. Jose Elias Strong BASOM # 0.00 103/ul Normal 0.00-0.10 [facility] Comment on above: Performed By: #### T NS #### [facility] [address] [place] [address] Dr. Jose Elias Strong BASOM % 0.0 % Critically low 0.2-2.0 [facility] Comment on above: Performed By: #### T NS #### [facility] [address] [place] [address] Dr. Jose Elias Strong BLAST # Normal [facility] Comment on above: Performed By: #### T NS #### [facility] [address] [address] [address] Jose Elias Strong BLAST % Normal [facility] Comment on above: Performed By: #### T NS #### [facility] [address] [place] [address] Dr. Jose Elias Strong CORRECTED WBC Normal 4.0-11.0 [facility] Comment on above: Performed By: #### T NS #### [facility] [address] [place] [address] Dr. Jose Elias Strong EOS # 0.00 103/ul Normal 0.00-0.70 [facility] Comment on above: Performed By: #### T NS #### [facility] [address] [place] [address] Dr. Jose Elias Strong EOS% 0.0 % Critically low 0.9-7.0 [facility] Comment on above: Performed By: #### T NS #### [facility] [address] [place] [address] Dr. Jose Elias Strong HCT 27.5 % Critically low 36.0-48.0 [facility] Comment on above: Performed By: #### T NS #### [facility] [address] [place] [address] Dr. Jose Elias Strong HGB 8.1 g/dl Critically low 12.0-16.0 [facility] Comment on above: Performed By: #### T NS #### [facility] [address] [place] [address] Dr. Jose Elias Strong LYMPHM # 1.62 103/ul Normal 1.20-3.80 [facility] Comment on above: Performed By: #### T NS #### [facility] [address] [address] [address] Jose Elias Strong LYMPHM% 9.0 % Critically low 20.5-60.0 [facility] Comment on above: Performed By: #### T NS #### [facility] [address] [address] [address] Jose Elias Strong MCH 22.2 pg Critically low 26.7-34.0 [facility] Comment on above: Performed By: #### T NS #### [facility] [address] [address] [address] Jose Elias Strong MCHC 29.5 g/dl Critically low 29.9-35.2 [facility] Comment on above: Performed By: #### T NS #### [facility] [address] [place] [address] Dr. Jose Elias Strong MCV 75.3 fL Critically low 81.0-99.0 [facility] Comment on above: Performed By: #### T NS #### [facility] [address] [place] [address] Dr. Jose Elias Strong METAMYELOCYTE # Normal [facility] Comment on above: Performed By: #### T NS #### [facility] [address] [place] [address] Dr. Jose Elias Strong METAMYELOCYTE % Normal [facility] Comment on above: Performed By: #### T NS #### [facility] [address] [address] [address] Jose Elias Strong MONOM# 1.62 103/ul Critically high 0.30-0.80 [facility] Comment on above: Performed By: #### T NS #### [facility] [address] [address] [address] Jose Elias Strong MONOM% 9.0 % Normal 1.7-12.0 [facility] Comment on above: Performed By: #### T NS #### [facility] [address] [place] [address] Dr. Jose Elias Strong MPV 9.6 fL Normal 9.5-13.5 [facility] Comment on above: Performed By: #### T NS #### [facility] [address] [address] [address] Jose Elias Strong MYELOCYTE # Normal [facility] Comment on above: Performed By: #### T NS #### [facility] [address] [address] [address] Jose Elias Strong MYELOCYTE % Normal [facility] Comment on above: Performed By: #### T NS #### [facility] [address] [address] [address] Jose Elias Strong NRBC Normal [facility] Comment on above: Performed By: #### T NS #### [facility] [address] [address] [address] Jose Elias Strong PLT 308 103/ul Normal 150-450 [facility] Comment on above: Performed By: #### T NS #### [facility] [address] [address] [address] Jose Elias Strong RBC 3.65 106/ul Critically low 4.20-5.40 [facility] Comment on above: Performed By: #### T NS #### [facility] [address] [address] [address] Jose Elias Strong RDW 15.7 % Critically high 11.0-15.0 [facility] Comment on above: Performed By: #### T NS #### [facility] [address] [address] [address] Jose Elias Strogn SEG # 14.58 103/ul Critically high 1.40-6.50 [facility] Comment on above: Performed By: #### T NS #### [facility] [address] [address] [address] Jose Elias Strong SEG % 81.0 % Critically high 43.0-75.0 [facility] Comment on above: Performed By: #### T NS #### [facility] [address] [address] [address] Jose Elias Strong WBC 18.0 103/ul Critically high 4.0-11.0 [facility] Comment on above: Performed By: #### T NS #### [facility] [address] [address] [address] Jose Elias Strong DRUG SCREEN RAPID (URINE)on 08-20-2021 AMP Negative Normal NEGATIVE [facility] Comment on above: Performed By: #### T NS #### [facility] [address] [address] [address] Jose Elias Strong BAR Negative Normal NEGATIVE [facility] Comment on above: Performed By: #### T NS #### [facility] [address] [address] [address] Jose Elias Strong BUP Negative Normal NEGATIVE [facility] Comment on above: Performed By: #### T NS #### [facility] [address] [place] [address] Dr. Jose Elias Strong BZO Negative Normal NEGATIVE [facility] Comment on above: Performed By: #### T NS #### [facility] [address] [place] [address] Dr. Jose Elias Strong PAXTON Negative Normal NEGATIVE [facility] Comment on above: Performed By: #### T NS #### [facility] [address] [place] [address] Dr. Jose Elias Strong CUT-OFFS SEE BELOW Normal [facility] Comment on above: Result Comment: AMP [...] ng/mL Performed By: #### T NS #### [facility] [address] [place] [address] Dr. Jose Elias Strong DRUG CUT HEADER DRUG CLASS TEST SYSTEM CUT-OFF CONCENTRATIONS ARE FOLLOWS: Normal [facility] Comment on above: Performed By: #### T NS #### [facility] [address] [address] [address] Jose Elias Strong mAMP Negative Normal NEGATIVE [facility] Comment on above: Performed By: #### T NS #### [facility] [address] [address] [address] Jose Elias Strong MTD Negative Normal NEGATIVE [facility] Comment on above: Performed By: #### T NS #### [facility] [address] [address] [address] Jose Elias Strong OPI Negative Normal NEGATIVE [facility] Comment on above: Performed By: #### T NS #### [facility] [address] [place] [address] Dr. Jose Elias Strong OXY Negative Normal NEGATIVE [facility] Comment on above: Performed By: #### T NS #### [facility] [address] [place] [address] Dr. Jose Elias Strong PCP Negative Normal NEGATIVE [facility] Comment on above: Performed By: #### T NS #### [facility] [address] [address] [address] Jose Elias Strong PPX Negative Normal NEGATIVE [facility] Comment on above: Performed By: #### T NS #### [facility] [address] [place] [address] Dr. Jose Elias Strong TCA Negative Normal NEGATIVE [facility] Comment on above: Performed By: #### T NS #### [facility] [address] [place] [address] Dr. Jose Elias Strong THC Negative Normal NEGATIVE [facility] Comment on above: Performed By: #### T NS #### [facility] [address] [place] [address] Dr. Jose Elias Strong UA (CLEAN/CATCH) DOCTOR OF MEDICINE/MICRO I F IND.on 08-20-2021 Bilirubin Ql (U) Negative Normal NEGATIVE [facility] Comment on above: Performed By: #### U MICRO, UACSIND #### [facility] [address] [place] [address] Dr. Jose Elias Strong Clarity (U) SL CLOUDY Abnormal CLEAR [facility] Comment on above: Performed By: #### U MICRO, UACSIND #### [facility] [address] [address] [address] Jose Elias Strong Color (U) RED Abnormal YELLOW [facility] Comment on above: Performed By: #### U MICRO, UACSIND #### [facility] [address] [address] [address] Jose Elias Strong Glucose Ql (U) Negative Normal NEGATIVE [facility] Comment on above: Performed By: #### U MICRO, UACSIND #### [facility] [address] [address] [address] Jose Elias Strong Hemoglobin Ql (U) LARGE Abnormal NEGATIVE [facility] Comment on above: Performed By: #### U MICRO, UACSIND #### [facility] [address] [place] [address] Dr. Jose Elias Strong Ketones Ql (U) 15 mg/dl Abnormal NEGATIVE [facility] Comment on above: Performed By: #### U MICRO, UACSIND #### [facility] [address] [place] [address] Dr. Jose Elias Strong LEUKOCYTES TRACE Abnormal NEGATIVE [facility] Comment on above: Performed By: #### U MICRO, UACSIND #### [facility] [address] [place] [address] Dr. Jose Elias Strong Nitrite Ql (U) Negative Normal NEGATIVE [facility] Comment on above: Performed By: #### U MICRO, UACSIND #### [facility] [address] [address] [address] Jose Elias Strong pH (U) 7.0 [pH] Normal 5-9 [facility] Comment on above: Performed By: #### U MICRO, UACSIND #### [facility] [address] [place] [address] Dr. Jose Elias Strong SPEC GRAVITY 1.020 Normal 1.005-<=1.025 [facility] Comment on above: Performed By: #### U MICRO, UACSIND #### [facility] [address] [place] [address] Dr. Jose Elias Strong UA PROTEIN 30 mg/dl Abnormal NEGATIVE/ TRACE [facility] Comment on above: Performed By: #### U MICRO, UACSIND #### [facility] [address] [place] [address] Dr. Jose Elias Strong UR MICRO IND INDICATED Normal [facility] Comment on above: Performed By: #### U MICRO, UACSIND #### [facility] [address] [place] [address] Dr. Jose Elias Strong Urobilinogen Qn (U) 0.2 {Mago'U}/dL Normal 0.2 - 1. 0 [facility] Comment on above: Performed By: #### U MICRO, UACSIND #### [facility] [address] [place] [address] Dr. Jose Elias Strong URINE MICROSCOPIC ONLYon BACTERIA NONE SEEN Normal NONE SEEN [facility] Comment on above: Performed By: #### U MICRO, UACSIND #### [facility] [address] [place] [address] Dr. Jose Elias Strong Bacteria identified Cx Nom (U) NOT INDICATED Normal [facility] Comment on above: Performed By: #### U MICRO, UACSIND #### [facility] [address] [place] [address] Dr. Jose Elias Strong CAST NONE SEEN Normal NONE SEEN [facility] Comment on above: Performed By: #### U MICRO, UACSIND #### [facility] [address] [place] [address] Dr. Jose Elias Strong Crystals LM Nom (Urine sed) NONE SEEN Normal NONE SEEN [facility] Comment on above: Performed By: #### U MICRO, UACSIND #### [facility] [address] [place] [address] Dr. Jose Elias Strong Epithelial cells LM Ql (Urine sed) NONE SEEN Normal NONE SEEN /RARE [facility] Comment on above: Performed By: #### U MICRO, UACSIND #### [facility] [address] [place] [address] Dr. Jose Elias Strong MUCOUS NONE SEEN Normal NONE SEEN [facility] Comment on above: Performed By: #### U MICRO, UACSIND #### [facility] [address] [address] [address] Jose Elias Strong RBC (U) [#/Vol] /uL Abnormal 0-2 [facility] Comment on above: Performed By: #### U MICRO, UACSIND #### [facility] [address] [address] [address] Jose Elias Strong WBC 0-2 Abnormal NONE SEEN [facility] Comment on above: Performed By: #### U MICRO, UACSIND #### [facility] [address] [address] [address] Jose Elias Strong CBC AUTO DIFFon 08-19-2021 BASO # 0.0 103/ul Normal 0.0-0.1 [facility] Comment on above: Performed By: #### T NS #### [facility] [address] [place] [address] Dr. Jose Elias Strong Basophils/100 WBC (Bld) 0.2 % Normal 0.2-2.0 [facility] Comment on above: Performed By: #### T NS #### [facility] [address] [address] [address] Jose Elias Strong EO # 0.1 103/ul Normal 0.0-0.7 [facility] Comment on above: Performed By: #### T NS #### [facility] [address] [place] [address] Dr. Jose Elias Strong Eosinophils/100 WBC (Bld) 0.7 % Critically low 0.9-7.0 [facility] Comment on above: Performed By: #### T NS #### [facility] [address] [address] [address] Jose Elias Strong Erythrocyte distribution width (RBC) [Ratio] 15.9 % Critically high 11.0-15.0 [facility] Comment on above: Performed By: #### T NS #### [facility] [address] [place] [address] Dr. Jose Elias Strong Hematocrit (Bld) [Volume fraction] 32.4 % Critically low 36.0-48.0 [facility] Comment on above: Performed By: #### T NS #### [facility] [address] [address] [address] Jose Elias Strong Hemoglobin (Bld) [Mass/Vol] 9.7 g/dL Critically low 12.0-16.0 [facility] Comment on above: Performed By: #### T NS #### [facility] [address] [address] [address] Jose Elias Strong IG # 0.19 10e3/ul Critically high 0.00-0.03 [facility] Comment on above: Performed By: #### T NS #### [facility] [address] [address] [address] Jose Elias Strong IG % 1.4 % Critically high 0.0-0.5 [facility] Comment on above: Performed By: #### T NS #### [facility] [address] [address] [address] Jose Elias Strong LYMPH # 1.9 103/ul Normal 1.2-3.8 [facility] Comment on above: Performed By: #### T NS #### [facility] [address] [place] [address] Dr. Jose Elias Strong Lymphocytes/100 WBC (Bld) 14.4 % Critically low 20.5-60.0 [facility] Comment on above: Performed By: #### T NS #### [facility] [address] [place] [address] Dr. Jose Elias Strong MANUAL DIFF REQ NO Normal [facility] Comment on above: Performed By: #### T NS #### [facility] [address] [address] [address] Jose Elias Strong MCH (RBC) [Entitic mass] 22.3 pg Critically low 26.7-34.0 [facility] Comment on above: Performed By: #### T NS #### [facility] [address] [address] [address] Jose Elias Strong MCHC (RBC) [Mass/Vol] 29.9 g/dL Normal 29.9-35.2 [facility] Comment on above: Performed By: #### T NS #### [facility] [address] [address] [address] Jose Elias Strong MCV (RBC) [Entitic vol] 74.5 fL Critically low 81.0-99.0 [facility] Comment on above: Performed By: #### T NS #### [facility] [address] [address] [address] Jose Elias Strong MONO # 1.4 103/ul Critically high 0.3-0.8 [facility] Comment on above: Performed By: #### T NS #### [facility] [address] [address] [address] Jose Elias Strong Monocytes/100 WBC (Bld) 10.1 % Normal 1.7-12.0 [facility] Comment on above: Performed By: #### T NS #### [facility] [address] [place] [address] Dr. Jose Elias Strong NEUT # 9.8 103/ul Critically high 1.4-6.5 [facility] Comment on above: Performed By: #### T NS #### [facility] [address] [place] [address] Dr. Jose Elias Strong Neutrophils/100 WBC (Bld) 73.2 % Normal 43.0-75.0 [facility] Comment on above: Performed By: #### T NS #### [facility] [address] [place] [address] Dr. Jose Elias Strong Platelet mean volume (Bld) [Entitic vol] 10.0 fL Normal 9.5-13.5 [facility] Comment on above: Performed By: #### T NS #### [facility] [address] [place] [address] Dr. Jose Elias Strong PLT 337 103/ul Normal 150-450 [facility] Comment on above: Performed By: #### T NS #### [facility] [address] [place] [address] Dr. Jose Elias Strong RBC 4.35 106/ul Normal 4.20-5.40 [facility] Comment on above: Performed By: #### T NS #### [facility] [address] [place] [address] Dr. Jose Elias Strong WBC 13.4 103/ul Critically high 4.0-11.0 [facility] Comment on above: Performed By: #### T NS #### [facility] [address] [place] [address] Dr. Jose Elias Strong Covid-19 PCR ([facility])on 08-03 SARS-CoV-2 (COVID-19) RNA [place]+probe Ql (Unsp spec) Not detected Normal NOT DETECTED [facility] Comment on above: Result Comment: [...] for this test is supported by the [place] of Health and Human Service's declaration that [...] used). Performed By: #### C VDTBH #### [facility] [address] [place] [address] Dr. Jose Elias Strong TYPE AND SCREENon 08-19-2021 TYPE AND SCREEN Negative Normal [facility] Comment on above: Performed By: #### T NS #### [facility] [address] [place] [address] Dr. Jose Elias Strong GROUP B STREP CULTUREon 07-05 S. agalactiae Ag Ql (Unsp spec) Culture Observations: NEGATIVE FOR GROUP B STREPTOCOCCUS. Normal [facility] Comment on above: Performed By: #### G BSCX #### [facility] [address] [place] [address] Dr. Jose Elias Strong UA (CLEAN/CATCH) DOCTOR OF MEDICINE/MICRO I F IND.on 06-28-2021 Bilirubin Ql (U) Negative Normal NEGATIVE [facility] Comment on above: Performed By: #### U ACSIND, UMICRO #### [facility] [address] [place] [address] Dr. Jose Elias Strong Clarity (U) CLEAR Normal CLEAR [facility] Comment on above: Performed By: #### U ACSIND, UMICRO #### [facility] [address] [address] [address] Jose Elias Strong Color (U) LT. YELLOW Normal YELLOW [facility] Comment on above: Performed By: #### U ACSIND, UMICRO #### [facility] [address] [place] [address] Dr. Jose Elias Strong Glucose Ql (U) Negative Normal NEGATIVE [facility] Comment on above: Performed By: #### U ACSIND, UMICRO #### [facility] [address] [place] [address] Dr. Jose Elias Strong Hemoglobin Ql (U) Negative Normal NEGATIVE [facility] Comment on above: Performed By: #### U ACSIND, UMICRO #### [facility] [address] [place] [address] Dr. Jose Elias Strong Ketones Ql (U) Negative Normal NEGATIVE [facility] Comment on above: Performed By: #### U ACSIND, UMICRO #### [facility] [address] [address] [address] Jose Elias Strong LEUKOCYTES TRACE Abnormal NEGATIVE [facility] Comment on above: Performed By: #### U ACSIND, UMICRO #### [facility] [address] [place] [address] Dr. Jose Elias Strong Nitrite Ql (U) Negative Normal NEGATIVE [facility] Comment on above: Performed By: #### U ACSIND, UMICRO #### [facility] [address] [place] [address] Dr. Jose Elias Strong pH (U) 6.5 [pH] Normal 5-9 [facility] Comment on above: Performed By: #### U ACSIND, UMICRO #### [facility] [address] [address] [address] Jose Elias Strong SPEC GRAVITY 1.015 Normal 1.005-<=1.025 [facility] Comment on above: Performed By: #### U ACSIND, UMICRO #### [facility] [address] [address] [address] Jose Elias Strong UA PROTEIN Negative Normal NEGATIVE/ TRACE [facility] Comment on above: Performed By: #### U ACSIND, UMICRO #### [facility] [address] [address] [address] Jose Elias Strong UR MICRO IND INDICATED Normal [facility] Comment on above: Performed By: #### U ACSIND, UMICRO #### [facility] [address] [place] [address] Dr. Jose Elias Strong Urobilinogen Qn (U) 0.2 {Mago'U}/dL Normal 0.2 - 1. 0 [facility] Comment on above: Performed By: #### U ACSIND, UMICRO #### [facility] [address] [place] [address] Dr. Jose Elias Strong URINE MICROSCOPIC ONLYon AMORPHOUS CRYSTALS FEW Normal [facility] Comment on above: Performed By: #### U ACSIND, UMICRO #### [facility] [address] [place] [address] Dr. Jose Elias Strong BACTERIA TRACE Abnormal NONE SEEN [facility] Comment on above: Performed By: #### U ACSIND, UMICRO #### [facility] [address] [place] [address] Dr. Jose Elias Strong Bacteria identified Cx Nom (U) NOT INDICATED Normal [facility] Comment on above: Performed By: #### U ACSIND, UMICRO #### [facility] [address] [address] [address] Jose Elias Strong CAST NONE SEEN Normal NONE SEEN [facility] Comment on above: Performed By: #### U ACSIND, UMICRO #### [facility] [address] [address] [address] Jose Elias Strong Crystals LM Nom (Urine sed) SEEN Abnormal NONE SEEN [facility] Comment on above: Performed By: #### U ACSIND, UMICRO #### [facility] [address] [place] [address] Dr. Jose Elias Strong Epithelial cells LM Ql (Urine sed) RARE Normal NONE SEEN /RARE [facility] Comment on above: Performed By: #### U ACSIND, UMICRO #### [facility] [address] [place] [address] Dr. Jose Elias Strong MUCOUS TRACE Abnormal NONE SEEN [facility] Comment on above: Performed By: #### U ACSIND, UMICRO #### [facility] [address] [place] [address] Dr. Jose Elias Strong RBC 0-2 Normal 0-2 [facility] [facility] Comment on above: Performed By: #### U ACSMICHAEL, UMICRO #### [facility] [address] [place] [address] Dr. Jose Elias Strong WBC 2-5 Abnormal NONE SEEN [facility] Comment on above: Performed By: #### U ACSMICHAEL, UMICRO #### [facility] [address] [place] [address] Dr. Jose Elias Strong CBC AUTO DIFFon 06-19-2021 BASO # 0.0 103/ul Normal 0.0-0.1 [facility] Comment on above: Performed By: #### C BC #### [facility] [address] [place] [address] Dr. Jose Elias Strong Basophils/100 WBC (Bld) 0.3 % Normal 0.2-2.0 [facility] Comment on above: Performed By: #### C BC #### [facility] [address] [place] [address] Dr. Jose Elias Strong EO # 0.2 103/ul Normal 0.0-0.7 [facility] Comment on above: Performed By: #### C BC #### [facility] [address] [place] [address] Dr. Jose Elias Strong Eosinophils/100 WBC (Bld) 2.0 % Normal 0.9-7.0 [facility] Comment on above: Performed By: #### C BC #### [facility] [address] [place] [address] Dr. Jose Elias Strong Erythrocyte distribution width (RBC) [Ratio] 13.6 % Normal 11.0-15.0 [facility] Comment on above: Performed By: #### C BC #### [facility] [address] [place] [address] Dr. Jose Elias Strong Hematocrit (Bld) [Volume fraction] 29.4 % Critically low 36.0-48.0 [facility] Comment on above: Performed By: #### C BC #### [facility] [address] [place] [address] Dr. Jose Elias Storng Hemoglobin (Bld) [Mass/Vol] 9.5 g/dL Critically low 12.0-16.0 [facility] Comment on above: Performed By: #### C BC #### [facility] [address] [place] [address] Dr. Jose Elias Strong IG # 0.14 10e3/ul Critically high 0.00-0.03 [facility] Comment on above: Performed By: #### C BC #### [facility] [address] [place] [address] Dr. Jose Elias Strong IG % 1.4 % Critically high 0.0-0.5 [facility] Comment on above: Performed By: #### C BC #### [facility] [address] [place] [address] Dr. Jose Elias Strong LYMPH # 1.6 103/ul Normal 1.2-3.8 [facility] Comment on above: Performed By: #### C BC #### [facility] [address] [place] [address] Dr. Jose Elias Strong Lymphocytes/100 WBC (Bld) 15.5 % Critically low 20.5-60.0 [facility] Comment on above: Performed By: #### C BC #### [facility] [address] [place] [address] Dr. Jose Elias Strong MANUAL DIFF REQ NO Normal [facility] Comment on above: Performed By: #### C BC #### [facility] [address] [address] [address] Jose Elias Strong MCH (RBC) [Entitic mass] 26.8 pg Normal 26.7-34.0 [facility] Comment on above: Performed By: #### C BC #### [facility] [address] [address] [address] Jose Elias Strong MCHC (RBC) [Mass/Vol] 32.3 g/dL Normal 29.9-35.2 [facility] Comment on above: Performed By: #### C BC #### [facility] [address] [address] [address] Jose Elias Strong MCV (RBC) [Entitic vol] 82.8 fL Normal 81.0-99.0 [facility] Comment on above: Performed By: #### C BC #### [facility] [address] [place] [address] Dr. Jose Elias Strong MONO # 1.2 103/ul Critically high 0.3-0.8 [facility] Comment on above: Performed By: #### C BC #### [facility] [address] [address] [address] Jose Elias Strong Monocytes/100 WBC (Bld) 12.2 % Critically high 1.7-12.0 [facility] Comment on above: Performed By: #### C BC #### [facility] [address] [address] [address] Jose Elias Strong NEUT # 7.0 103/ul Critically high 1.4-6.5 [facility] Comment on above: Performed By: #### C BC #### [facility] [address] [address] [address] Jose Elias Strong Neutrophils/100 WBC (Bld) 68.6 % Normal 43.0-75.0 [facility] Comment on above: Performed By: #### C BC #### [facility] [address] [place] [address] Dr. Jose Elias Strong Platelet mean volume (Bld) [Entitic vol] 9.1 fL Critically low 9.5-13.5 [facility] Comment on above: Performed By: #### C BC #### [facility] [address] [address] [address] Jose Elias Strong PLT 309 103/ul Normal 150-450 [facility] Comment on above: Performed By: #### C BC #### [facility] [address] [address] [address] Jose Elias Strong RBC 3.55 106/ul Critically low 4.20-5.40 [facility] Comment on above: Performed By: #### C BC #### [facility] [address] [address] [address] Jose Elias Strong WBC 10.1 103/ul Normal 4.0-11.0 [facility] Comment on above: Performed By: #### C BC #### [facility] [address] [address] [address] Jose Elias Strong GLYCOHEMOGLOBIN A1Con 2021 ADA RECOMMENDATION ADA THERAPEUTIC TARGET 6.0 - 7.0 ACTION SUGGESTED > 7.0 Normal [facility] Comment on above: Performed By: #### T NS #### [facility] [address] [address] [address] Jose Elias Strong Glucose [Mass/Vol] 97 mg/dL Normal [facility] Comment on above: Performed By: #### T NS #### [facility] [address] [address] [address] Jose Elias Strong HbA1c (Bld) [Mass fraction] 5.0 % Normal <=6.0 [facility] Comment on above: Performed By: #### T NS #### [facility] [address] [address] [address] Jose Elias Strong Consenton 10-24-2020 Consent [id number] .00CD:127 Normal [facility] In office Testingon 10-25-19 In office Testing [id number]# 1.00CD:127 Normal [facility] Registrationon 10-24-2020 Registration [id number] .00CD:127 [facility] Registration [id number] .00CD:127 [facility] Vital Signs Date Time Vital Sign Value Performing Clinician Leslie garrett 06-12-2023 11:02-0500 Body mass index (BMI) [Ratio] 30.26 kg/m2 Mary Venkat DO Work Phone: [facility] 06-12-2023 11:02-050 Body weight 77.47 kg Mary Venkat DO Work Phone: [facility] 06-12-2023 11:02-0500 Diastolic blood pressure 70 mm[Hg] Mary Venkat DO Work Phone: [facility] 06-12-2023 11:02-0500 Systolic blood pressure 118 mm[Hg] Mary Venkat DO Work Phone: [facility] Encounters Encounter Date Encounter Type Care Provider Facility Start: 06-24-2023 End: 06-24-2023 ambulatory ERIKA ROCIO Not Available Start: 06-12-2023 End: 06-12-2023 ambulatory MARY VENKAT Not Available Start: 06-12-2023 End: 06-12-2023 Office outpatient visit 15 minutes Mary Venkat DO Work Phone: [facility] Comment on above: Third trimester preg jun Start: 05-29-2023 End: 05-29-2023 ambulatory ERIKA ROCIO Not Available Start: 04-23-2023 End: 04-23-2023 ambulatory MARY VENKAT Not Available Start: 03-19-2023 End: 03-19-2023 ambulatory MARY VENKAT Not Available Start: 12-10-2022 ambulatory [facility] Start: 11-19-2022 End: 11-19-2022 ambulatory YOMAIRA LAWLER [facility] Start: 10-28-2022 End: 10-29-2022 ambulatory [facility] Start: 08-29-2022 ambulatory YOMAIRA LAWLER [facility] Start: 08-19-2022 End: 08-19-2022 Emergency department patient visit YOMAIRA LAWLER [facility] Start: 08-08-2022 End: 08-08-2022 Emergency department [...] 08-01-2021 End: 08-01-[address] MARY ROBLEDO Facility:[facility] Start: 06-28-2021 End: 06-28-2021 ambulatory TIM LEIF Facility:[facility] Start: 06-19-2021 End: 06-20-[address] MARY ROBLEDO Facility: Procedures Date Procedure Procedure Detail Performing Clinician Start: 06-12-2023 Urnls dip stick/tabl et rgnt non-auto w/o micrscp Mary Robledo DO Work Phone: Start: 08-19-2021 Delivery of Products of Conception, External Approach DR MARY ROBLEDO Plan of Treatment Date Care Activity Detail Author Start: 06-24-2023 End: 06-24-2023 Patient encounter procedure 06/24/2023 1:00 PM EST Routine [facility] [address] [place] [id number] Erika Keith PA [address] [place] [address] [facility] Payers Date Payer Category Payer Medicaid [id number] 2022 Medicaid [employer] [place] [id number] 2022-Present [address] [place] [address] [id number] 1995 Unknown [id number] 2.16.840.1.641401.3.579.2.593 1995 Unknown [id number] 2.16.840.1.568551.3.579.2.593 1995 Unknown [id number] 2.16.840.1.671636.3.579.2.593 1995 Unknown [id number] 2.16.840.1.674428.3.579.2.593 1995 Unknown [id number] 2.16.840.1.484823.3.579.2.593 1995 Unknown [id number] 2.16.840.1.727003.3.579.2.593 1995 Unknown [id number] 2.16.840.1.495428.3.579.2.593 1995 Unknown [id number] 2.16.840.1.508169.3.579.2.593 1995 Unknown [id number] 2.16.840.1.922013.3.579.2.121 1995 Unknown [id number] 2.16.840.1.744883.3.579.2.121 1995 Unknown [id number] 2.16.840.1.630054.3.579.2.121 1995 Unknown [id number] 2.16.840.1.875517.3.579.2.1213 1995 Unknown [id number] 2.16.840.1.438618.3.579.2.1212 1995 Unknown [id number] 2.16.840.1.519654.3.579.2.1212 1995 Unknown [id number] 2.16.840.1.032310.3.579.2.1258 1995 Unknown [id number] 2.16.840.1.528557.3.579.2.1258 1995 Unknown [id number] 2.16.840.1.622154.3.579.2.1258 1995 Unknown [id number] 2.16.840.1.946761.3.579.2.1258 1995 Unknown [id number] 2.16.840.1.575502.3.579.2.9 1959 Unknown [id number] Social History Date Type Detail Facility Start: 10-21-2022 Tobacco smoking stat [facility] Never smoked tobacco [facility] [...] Ambulatory Problems Diagnosis Date Noted Acute asthma ([facility]) 12/03/2022 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 12/03/2022 Neck swelling 08/19/2022 Schizoaffective disorder ([facility]) 12/03/2022 Resolved Ambulatory Problems Diagnosis Date Noted No Resolved Ambulatory Problems Past Medical History: Diagnosis Date BMI 24.0-24.9, adult Depot contraception Encounter for IUD insertion Encounter for Papanicolaou cervical smear to confirm findings of recent normal smear following initial abnormal smear Intrauterine device surveillance Schizo-affective psychosis ([facility]) Urine test negative Family History Problem Relation [...] nursing note reviewed. Exam conducted with a filling station equipment mechanic present. Vitals: Estimated body mass index is [...] DATE CREATED AUTHOR 10/25/2020 [facility] DATE CREATED AUTHOR AUTHOR'S ORGANIZ ATION 06/11/2022 [facility] DATE CREATED AUTHOR AUTHOR'S ORGANIZ ATION 12/16/2022 [facility] [place] [facility] DATE CREATED AUTHOR AUTHOR'S ORGANIZ ATION 07/01/2023 [facility] EPIC Reason for Visit (unrecogniz ed [...] BE BASED ON THE PRIMARY CLINICAL RECORDS. [facility] [employer] [facility] provides no warranty or guarantee of the accuracy or completeness of information in this document.
== END 2023-06-27 19:39 | disposition home or self-care (01) ==
LOC: FBCO 08:05 → FBC 19:02
PROVIDERS: PCP Family Medicine; Visit Provider Obstetrics & Gynecology
DX: O36.63X0 Maternal care for excessive fetal growth, third trimester, not applicable or unspecified (principal)
CPT/HCPCS: 59025

== ENCOUNTER 2023-07-01 07:00 | Outpatient (OUT) | payer OTHER, SELFPAY ==
--- NOTE | 2023-07-01 | US_ITS ---
[address] [address] Patient Name: KRISSY LOPEZ MRN: [facility]:[id number] date: 1995 Sex: F Assigned Patient Location: [facility] Current Patient Location: [facility] Accession/Order Number: [id number] Exam Date: 07/01/2023 11:46 Report Date: 07/01/2023 12:10 At the request of: MARY MARIE Procedure: US OB BPP w non-stress EXAMINATION: US OB BPP w non-stress HISTORY: EXCESSIVE GROWTH COMPARISON: No relevant comparison available. TECHNIQUE: Ultrasound biophysical profile was performed in the radiology department. FINDINGS: BREATHING MOVEMENTS: 2.0 GROSS BODY MOVEMENTS: 2.0 TONE: 2.0 QUALITATIVE AMNIOTIC FLUID VOLUME: 2.0 PRESENTATION: TRANSVERSE HEART RATE: 136.4 bpm H.B./min AMNIOTIC FLUID VOLUME: 30.7 cm cm GESTATIONAL AGE: 35 weeks 1 days CONCLUSION: Total biophysical profile score: 8.0 Polyhydramnios Electronically authenticated by: HAMMAD FRAZIER Date: 07/01/2023 12:10
--- OUTSIDE RECORDS SUMMARY | 2023-07-01 07:02 | XMS_ITS | CCD ---
Author Name Unknown Address [address] [place] [address] Organization [facility] Care Team Providers Care Management Supervisor Name Role Phone VENKAT, DR HERNANDEZ Admitting [...] [LATEX] Drug allergy (disorder) 6 [facility] (2 sources) Leucine; Translations: [NICKEL] Drug Allergy 7 [facility] (2 sources) Penicillins; Translations: [PENICILLINS] Drug allergy (disorder) 7 [facility] (1 source) Shellfish Drug allergy (disorder) 7 [facility] (2 sources) Iodine; Translations: [IODINE] Drug Allergy 3 [facility] Repository (1 source) SHELLFISH CONTAINING PRODUCTS; Translations: [SHELLFISH CONTAINING PRODUCTS] Propensity to adverse reactions to drug (disorder) 3 [facility] Repository (1 source) VENOM-HONEY BEE; Translations: [VENOM-HONEY BEE] Propensity to adverse reactions to drug (disorder) 3 [facility] Repository (1 source) Amoxicillin Drug Allergy 3 Unknown [facility] (1 source) Bee pollen Allergy to substance 3 Unknown [facility] (1 source) Honey bee venom Propensity to adverse reactions 3 [facility] (1 source) Latex Allergy to substance 3 Unknown [facility] (1 source) nickel sulfate Drug Allergy 3 [facility] (1 source) Penicillin G Drug Allergy [address] [facility] (1 source) Shellfish-Derive d Products Drug Allergy 3 Unknown [facility] Medications Current Medications Medication Drug Class(es) Dates Sig (Normalized) Sig (Original) [id number] 200 actuat albuterol 0.09 mg/actuat metered dose [...] sexual mode of transmission complicating childbirth; Translations: [[facility] INF SEXL TRNSMS COMP CHILDBIRTH] Onset: 08-19-2021 Episodic Other complications of ; puerperium affecting management of mother (1 source) Other mental disorders complicating childbirth; Translations: [[facility] MENTAL D/O COMP CHILDBIRTH] Onset: 08-30-2021 Episodic Other complications of (4 sources) Other specified related conditions, third trimester; Translations: [[facility] SPEC PREG RELATED COND 3RD TRI] [...] UA Negative Negative - 4(70) +++ mg/dL [facility] Blood, UA Negative Negative - 50 Yovany/mcL [facility] Clarity, UA Clear [facility] Color, UA Yellow [facility] Glucose, UA Negative Negative - 2000(110) ++++ mg/dL [facility] Interpretation and review of laboratory results Abnormal [facility] Ketones, UA Negative Negative - 160(16) ++++ mg/dL [facility] Leukocytes, UA Positive Negative - 500+++ Jamey/mcL [facility] Nitrite, UA Negative Negative - Positive [facility] pH, UA 5.5 5 - 9 [facility] Protein, UA Positive Negative - 2000(20) ++++ mg/dL [facility] Spec Grav, UA 1.020 1 - 1.03 [facility] Urobilinogen, UA 1.0 0.2 - 12 mg/dL [facility] HCG, Urineon 11-19-2022 Beta HCG ( test) Ql (U) Negative Normal [facility] Comment on above: Order Comment: The c alculated GFR uses the (IDMS)-traceable creatinine MDRD equation and is reported in mL/min/1.73 square meters. This formula is not recommended for use with individuals with unstable creatinine concentrations, extremes in muscle mass and/or body size, or alternative diets and may not be suitable for all patient populations. Testing performed at [facility] Jose Elias [facility], [address] [place] [address]3951 Result Comment: Note : This test provides only a presumptive diagnosis for . If the HCG result is inconsistent with clinical evidence, results should be confirmed with an alternative method, such as a quantitative HCG. Basic Metabolic Profileon ANIO 11 mmol/L Low 12-20 [facility] Comment on above: Order Comment: Testi ng performed at [facility], [address] [place] [address] 11248 Calcium [Mass/Vol] 9.5 mg/dL Normal 8.4-10.2 [facility] Comment on above: Order Comment: Testi ng performed at [facility], [address] [place] [address] 41621 Chloride [Moles/Vol] 107 mmol/L Normal 98-107 [facility] Comment on above: Order Comment: Testi ng performed at [facility], [address] [place] [address] 49295 CO2 [Moles/Vol] 23.0 mmol/L Normal 22.0-30.0 [facility] Comment on above: Order Comment: Testi ng performed at [facility], [address] [place] [address] 83033 Creatinine [Mass/Vol] 0.7 mg/dL Normal 0.6-1.2 [facility] Comment on above: Order Comment: Testi ng performed at [facility], [address] [place] [address] 12224 Glucose [Mass/Vol] 118 mg/dL High 74-106 [facility] Comment on above: Order Comment: Testi ng performed at [facility], [address] [place] [address] 17160 Potassium [Moles/Vol] 4.1 mmol/L Normal 3.3-4.9 [facility] Comment on above: Order Comment: Testi ng performed at [facility], [address] [place] [address] 53500 Sodium [Moles/Vol] 137 mmol/L Normal 137-145 [facility] Comment on above: Order Comment: Testi ng performed at [facility], [address] [place] [address] 23530 Urea nitrogen [Mass/Vol] 14 mg/dL Normal 8-19 [facility] Comment on above: Order Comment: Testi ng performed at [facility], [address] [place] [address] 39079 CBC w/Auto Diffon 08-19-2022 Basophils (Bld) [#/Vol] 0.04 10*3/uL Normal 0.00-0.10 [facility] Comment on above: Order [...] is no longer indicated. Testing performed at [facility], [address] [place] [address] 50532 Eosinophils (Bld) [#/Vol] 0.05 10*3/uL Normal 0.00-0.40 [facility] Comment on above: Order [...] is no longer indicated. Testing performed at [facility], [address] [place] [address] 09352 Erythrocyte distribution width (RBC) [Ratio] 13.3 % Normal 11.7-14.4 [facility] Comment on above: Order [...] is no longer indicated. Testing performed at [facility], [address] [place] [address] 57575 Hematocrit (Bld) [Volume fraction] 36.1 % Normal 34.1-44.9 [facility] Comment on above: Order [...] is no longer indicated. Testing performed at [facility], [address] [place] [address] 53958 Hemoglobin (Bld) [Mass/Vol] 12.0 g/dL Normal 11.2-15.7 [facility] Comment on above: Order [...] is no longer indicated. Testing performed at [facility], [address] [place] [address] 54530 IG % (B) 0.6 % High 0.0-0.4 [facility] Comment on above: Order [...] is no longer indicated. Testing performed at [facility], [address] [place] [address] 25628 IG# (B) 0.14 10*3/uL High 0.00-0.00 [facility] Comment on above: Order [...] is no longer indicated. Testing performed at [facility], [address] [place] [address] 03954 Lymphocytes (Bld) [#/Vol] 0.81 10*3/uL Low 1.20-3.70 [facility] Comment on above: Order [...] is no longer indicated. Testing performed at [facility], [address] [place] [address] 56987 MCH (RBC) [Entitic mass] 28.5 pg Normal 25.6-32.2 [facility] Comment on above: Order [...] is no longer indicated. Testing performed at [facility], [address] [place] [address] 59484 MCHC (RBC) [Mass/Vol] 33.2 g/dL Normal 32.2-35.5 [facility] Comment on above: Order [...] is no longer indicated. Testing performed at [facility], [address] [place] [address] 59248 MCV (RBC) [Entitic vol] 85.7 fL Normal 79.4-94.8 [facility] Comment on above: Order [...] is no longer indicated. Testing performed at [facility], [address] [place] [address] 22299 Monocytes (Bld) [#/Vol] 1.81 10*3/uL High 0.20-0.90 [facility] Comment on above: Order [...] is no longer indicated. Testing performed at [facility], [address] [place] [address] 38523 Neutrophils (Bld) [#/Vol] 20.04 10*3/uL High 1.60-6.10 [facility] Comment on above: Order [...] is no longer indicated. Testing performed at [facility], [address] [place] [address] 19989 NRBC % (B) 0.0 /100{WBC} Normal 0.0-0.2 [facility] Comment on above: Order [...] is no longer indicated. Testing performed at [facility], [address] [place] [address] 13081 NRBC# (B) 0.00 10*3/uL Normal 0.00-0.00 [facility] Comment on above: Order [...] is no longer indicated. Testing performed at [facility], [address] [place] [address] 56133 Platelet mean volume (Bld) [Entitic vol] 9.9 fL Normal 9.4-12.3 [facility] Comment on above: Order [...] is no longer indicated. Testing performed at [facility], [address] [place] [address] 05540 Platelets (Bld) [#/Vol] 267 10*3/uL Normal 182-369 [facility] Comment on above: Order [...] is no longer indicated. Testing performed at [facility], [address] [place] [address] 80910 RBC (Bld) [#/Vol] 4.21 10*6/uL Normal 3.93-5.22 [facility] Comment on above: [...] is no longer indicated. Testing performed at [facility], [address] [place] [address] 53237 RDW-SD (B) 41.1 fL Normal 36.4-46.3 [facility] Comment on above: Order [...] is no longer indicated. Testing performed at [facility], [address] [place] [address] 05343 WBC (Bld) [#/Vol] 22.9 10*3/uL High 4.0-10.0 [facility] Comment on above: [...] is no longer indicated. Testing performed at [facility], [address] [place] [address] NECK WITHOUT CONTRASTon 0 08-19-2022 CT [...] Salinas MD On: 08/19/2022 1:25 PM Normal [facility] EST Glomerular Filtration Ra jude 08-19-2022 EAGFR (B) >60 Normal >60 [facility] Comment on above: Order Comment: The c alculated GFR uses the (IDMS)-traceable creatinine MDRD equation and is reported in mL/min/1.73 square meters. This formula is not recommended for use with individuals with unstable creatinine concentrations, extremes in muscle mass and/or body size, or alternative diets and may not be suitable for all patient populations. Testing performed at [facility], [address] [place] [address] Result Comment: The reported eGFR is based on a non- patient, for Americans multiply the result by 1.212. HCG, Serumon 08-19-2022 HCGS Negative Normal [facility] Comment on above: Order Comment: Testi ng performed at [facility], [address] [place] [address] Result Comment: Note : This test provides only a presumptive diagnosis for . If the HCG result is inconsistent with clinical evidence, results should be confirmed with an alternative method, such as a quantitative HCG. Man Diffon 08-19-2022 Eos, Diff 2 % Normal 0-6 [facility] Comment on above: Order Comment: Testi ng performed at [facility], [place] [address] Lymphocytes/100 WBC (Bld) 3 % Low 20-53 [facility] Comment on above: Order Comment: Testi ng performed at [facility], [address] [place] [address] [place], Diff 6 % Normal 5-12 [facility] Comment on above: Order Comment: Testi ng performed at [facility], [address] [place] [address] Segs. Diff 89 % High 34-70 [facility] Comment on above: Order Comment: Testi ng performed at [facility], [address] [place] [address] Slide Scan Normal Normal Normal [facility] Comment on above: Order Comment: Testi ng performed at [facility], [address] [place] [address] Basic Metabolic Profileon ANIO 12 mmol/L Normal 12-20 [facility] Comment on above: Order Comment: Testi ng performed at [facility], [address] [place] [address] Calcium [Mass/Vol] 9.1 mg/dL Normal 8.4-10.2 [facility] Comment on above: Order Comment: [facility], [address] [place] [address] Chloride [Moles/Vol] 106 mmol/L Normal 98-107 [facility] Comment on above: Order Comment: Testi ng [facility], [address] [place] [address] CO2 [Moles/Vol] 27.0 mmol/L Normal 22.0-30.0 [facility] Comment on above: Order Comment: Testi ng [facility] at [facility], [address] [place] [address] Creatinine [Mass/Vol] 0.6 mg/dL Normal 0.6-1.2 [facility] Comment on above: Order Comment: Testi ng performed at [facility], [address] [place] [address] Glucose [Mass/Vol] 95 mg/dL Normal 74-106 [facility] Comment on above: Order Comment: Test[facility], [address] [place] [address] Potassium [Moles/Vol] 4.1 mmol/L Normal 3.3-4.9 [facility] Comment on above: Order Comment: Testi ng performed at [facility], [address] [place] [address] Sodium [Moles/Vol] 141 mmol/L Normal 137-145 [facility] Comment on above: Order Comment: Testi ng performed at [facility], [address] [place] [address] Urea nitrogen [Mass/Vol] 9 mg/dL Normal 8-19 [facility] Comment on above: Order Comment: Testi ng performed at [facility], [address] [place] [address] CBC w/Auto Diffon 08-08-2022 Basophils (Bld) [#/Vol] 0.04 10*3/uL Normal 0.00-0.10 [facility] Comment on above: Order [...] is no longer indicated. Testing performed at [facility], [address] [place] [address] 22497 Basophils/100 WBC (Bld) 0.4 % Normal 0.1-1.2 [facility] Comment on above: Order [...] is no longer indicated. Testing performed at [facility], [address] [place] [address] 71407 Eosinophils (Bld) [#/Vol] 0.21 10*3/uL Normal 0.00-0.40 [facility] Comment on above: Order [...] is no longer indicated. Testing performed at [facility], [address] [place] [address] 43092 Eosinophils/100 WBC (Bld) 2.1 % Normal 0.7-5.8 [facility] Comment on above: Order [...] is no longer indicated. Testing performed at [facility], [address] [place] [address] 99597 Erythrocyte distribution width (RBC) [Ratio] 12.9 % Normal 11.7-14.4 [facility] Comment on above: Order [...] is no longer indicated. Testing performed at [facility], [address] [place] [address] 96152 Hematocrit (Bld) [Volume fraction] 35.4 % Normal 34.1-44.9 [facility] Comment on above: Order [...] is no longer indicated. Testing performed at [facility], [address] [place] [address] 03640 Hemoglobin (Bld) [Mass/Vol] 11.2 g/dL Normal 11.2-15.7 [facility] Comment on above: Order [...] is no longer indicated. Testing performed at [facility], [address] [place] [address] 41987 IG % (B) 0.4 % Normal 0.0-0.4 [facility] Comment on above: Order [...] is no longer indicated. Testing performed at [facility], [address] [place] [address] 91681 IG# (B) 0.04 10*3/uL High 0.00-0.00 [facility] Comment on above: Order [...] is no longer indicated. Testing performed at [facility], [address] [place] [address] 13073 Lymphocytes (Bld) [#/Vol] 1.60 10*3/uL Normal 1.20-3.70 [facility] Comment on above: Order [...] is no longer indicated. Testing performed at [facility], [address] [place] [address] 89832 Lymphocytes/100 WBC (Bld) 16.3 % Low 19.3-51.7 [facility] Comment on above: Order [...] is no longer indicated. Testing performed at [facility], [address] [place] [address] 14066 MCH (RBC) [Entitic mass] 27.7 pg Normal 25.6-32.2 [facility] Comment on above: Order [...] is no longer indicated. Testing performed at [facility], [address] [place] [address] 57013 MCHC (RBC) [Mass/Vol] 31.6 g/dL Low 32.2-35.5 [facility] Comment on above: Order [...] is no longer indicated. Testing performed at [facility], [address] [place] [address] 89403 MCV (RBC) [Entitic vol] 87.4 fL Normal 79.4-94.8 [facility] Comment on above: Order [...] is no longer indicated. Testing performed at [facility], [address] [place] [address] 60554 Monocytes (Bld) [#/Vol] 0.88 10*3/uL Normal 0.20-0.90 [facility] Comment on above: Order [...] is no longer indicated. Testing performed at [address] [address] Monocytes/100 WBC (Bld) 8.9 % Normal 4.7-12.5 [facility] Comment on above: Order [...] is no longer indicated. Testing performed at [facility], [address] [place] [address] 48499 Neutrophils (Bld) [#/Vol] 7.07 10*3/uL High 1.60-6.10 [facility] Comment on above: Order [...] is no longer indicated. Testing performed at [facility], [address] [place] [address] 34463 Neutrophils/100 WBC (Bld) 71.9 % High 34.0-71.1 [facility] Comment on above: Order [...] is no longer indicated. Testing performed at [facility], [address] [place] [address] 48234 NRBC % (B) 0.0 /100{WBC} Normal 0.0-0.2 [facility] Comment on above: Order [...] is no longer indicated. Testing performed at [facility], [address] [place] [address] 78131 NRBC# (B) 0.00 10*3/uL Normal 0.00-0.00 [facility] Comment on above: Order [...] is no longer indicated. Testing performed at [facility], [address] [place] [address] 90882 Platelet mean volume (Bld) [Entitic vol] 9.2 fL Low 9.4-12.3 [facility] Comment on above: Order [...] is no longer indicated. Testing performed at [facility], [address] [place] [address] 18307 Platelets (Bld) [#/Vol] 315 10*3/uL Normal 182-369 [facility] Comment on above: Order [...] is no longer indicated. Testing performed at [facility], [address] [place] [address] 94909 RBC (Bld) [#/Vol] 4.05 10*6/uL Normal 3.93-5.22 [facility] Comment on above: [...] is no longer indicated. Testing performed at [facility], [address] [place] [address] 15601 RDW-SD (B) 41.0 fL Normal 36.4-46.3 [facility] Comment on above: Order [...] is no longer indicated. Testing performed at [facility], [address] [place] [address] 87423 WBC (Bld) [#/Vol] 9.8 10*3/uL Normal 4.0-10.0 [facility] Comment on above: Order Comment: [...] is no longer indicated. Testing performed at [facility], [address] [place] [address] NECK WITHOUT CONTRASTon 0 08-08-2022 CT [...] Schultz MD On: 08/08/2022 4:07 PM Normal [facility] EST Glomerular Filtration Ra jude 08-08-2022 EAGFR (B) >60 Normal >60 [facility] Comment on above: Order Comment: The c alculated GFR uses the (IDMS)-traceable creatinine MDRD equation and is reported in mL/min/1.73 square meters. This formula is not recommended for use with individuals with unstable creatinine concentrations, extremes in muscle mass and/or body size, or alternative diets and may not be suitable for all patient populations. Testing performed at [facility], [address] [place] [address] 90918 Result Comment: The reported eGFR is based on a non- patient, for Americans multiply the result by 1.212. Pap IG, rfx Aptima HPV, rfx 16/18,45on 06-11-2022 . . Normal [facility] Comment on above: Result Comment: Perf ormed at: WB Performed By: #### P APHR2A #### [facility] [address] [address] [address] Jose Elias Strong DIAGNOSIS: Comment Normal [facility] Comment on above: Result Comment: NEGA TIVE FOR INTRAEPITHELIAL LESION OR MALIGNANCY. Performed at: WB Performed By: #### P APHR2A #### [facility] [address] [address] [address] Jose Elias Strong HPV Aptima Negative Normal Negative [facility] Comment on above: Result Comment: This nucleic acid amplification test detects fourteen high-risk HPV types (16,18,31,33,35,39,45,51,52,56,58,59,66,68) without differentiation. Performed at: =G Performed By: #### P APHR2A #### [facility] [address] [address] [address] Jose Elias Strong HPV Genotype Reflex Comment Normal [facility] Comment on above: Result Comment: Crit eria not met, HPV Genotype not performed. Performed at: WB Performed By: #### P APHR2A #### [facility] [address] [address] [address] Jose Elias Strong Methodology: Comment Normal [facility] Comment on above: Result Comment: This liquid based ThinPrep(R) pap test was screened with the use of an image guided system. Performed at: WB Performed By: #### P [id number] #### [facility] [address] [address] [address] Jose Elias Strong Note: Comment Normal [facility] Comment on above: Result Comment: The [...] Performed By: #### P APHR2A #### [facility] [address] [address] [address] Jose Elias Strong Performed by: Comment Normal [facility] Comment on above: Result Comment: Koffi Hutchinson, Contract Lead (ASCP) Performed at: WB Performed By: #### P APHR2A #### [facility] [address] [address] [address] Jose Elias Strong Specimen adequacy: Comment Normal [facility] Comment on above: Result Comment: Sati sfactory for evaluation. Endocervical and/or squamous metaplastic cells (endocervical component) are present. Performed at: WB Performed By: #### P APHR2A #### [facility] [address] [place] [address] Dr. Jose Elias Strong PAP ACOG PANEL 2: 21 to 29on 11-20-2021 . . Normal [facility] Comment on above: Performed By: #### [id number] #### [facility] [address] [place] [address] Dr. Jose Elias Strong Age Gdln ACOG Testing - Normal [facility] Comment on above: Performed By: #### [id number] #### [facility] [address] [place] [address] Dr. Jose Elias Strong DIAGNOSIS: Comment [facility] Comment on above: Result Comment: NEGA TIVE FOR INTRAEPITHELIAL LESION OR MALIGNANCY. REACTIVE CELLULAR CHANGES AND/OR REPAIR ARE PRESENT. Performed By: #### [id number] #### [facility] [address] [place] [address] Dr. Jose Elias Strong Electronically signed by: Comment Normal [facility] Comment on above: Result Comment: Melinda Patel MD, Pathologist Performed By: #### [id number] #### [facility] [address] [place] [address] Dr. Jose Elias Strong Methodology: Comment [facility] Comment on above: Result Comment: This liquid based ThinPrep(R) pap test was screened with the use of an image guided system. Performed By: #### [id number] #### [facility] [address] [place] [address] Dr. Jose Elias Strong Note: Comment [facility] Comment on above: Result Comment: The Pap smear is a screening test designed to aid in the detection of premalignant and malignant conditions of the uterine cervix. It is not a diagnostic procedure and should not be used as the sole means of detecting cervical cancer. Both false-positive and false-negative reports do occur. . Performed By: #### [id number] #### [facility] [address] [place] [address] Dr. Jose Elias Strong Performed by: Comment Normal [facility] Comment on above: Result Comment: Bruc e Den Romero, Contract Lead (ASCP) Performed By: #### [id number] #### [facility] [address] [place] [address] Dr. Jose Elias Strong Reflex Criteria: Comment Normal [facility] Comment on above: Result Comment: The HPV DNA reflex criteria were not met with this specimen result therefore, no HPV testing was performed. . Performed By: #### [id number] #### [facility] [address] [place] [address] Dr. Jose Elias Strong Specimen adequacy: Comment Normal [facility] Comment on above: Result Comment: Sati sfactory for evaluation. Endocervical and/or squamous metaplastic cells (endocervical component) are present. Performed By: #### [id number] #### [facility] [address] [place] [address] Dr. Jose Elias Strong CBC W MANUAL DIFFon 08-21-19 22 ANISOCYTOSIS 1+ Normal [facility] Comment on above: Performed By: #### T NS #### [facility] [address] [place] [address] Dr. Jose Elias Strong ATYPICAL LYMPH # Normal [facility] Comment on above: Performed By: #### T NS #### [facility] [address] [place] [address] Dr. Jose Elias Strong ATYPICAL LYMPH % Normal [facility] Comment on above: Performed By: #### T NS #### [facility] [address] [place] [address] Dr. Jose Elias Strong BAND # 0.2 103/ul Normal 0.0-0.3 [facility] Comment on above: Performed By: #### T NS #### [facility] [address] [place] [address] Dr. Jose Elias Strong BAND % 1 % Normal 0-5 [facility] Comment on above: Performed By: #### T NS #### [facility] [address] [place] [address] Dr. Jose Elias Strong BASOM # 0.00 103/ul Normal 0.00-0.10 [facility] Comment on above: Performed By: #### T NS #### [facility] [address] [address] [address] Jose Elias Strong BASOM % 0.0 % Critically low 0.2-2.0 [facility] Comment on above: Performed By: #### T NS #### [facility] [address] [address] [address] Jose Elias Strong BLAST # Normal [facility] Comment on above: Performed By: #### T NS #### [facility] [address] [address] [address] Jose Elias Strong BLAST % Normal [facility] Comment on above: Performed By: #### T NS #### [facility] [address] [address] [address] Jose Elias Strong CORRECTED WBC Normal 4.0-11.0 [facility] Comment on above: Performed By: #### T NS #### [facility] [address] [place] [address] Dr. Jose Elias Strong EOS # 0.00 103/ul Normal 0.00-0.70 [facility] Comment on above: Performed By: #### T NS #### [facility] [address] [address] [address] Jose Elias Strong EOS% 0.0 % Critically low 0.9-7.0 [facility] Comment on above: Performed By: #### T NS #### [facility] [address] [place] [address] Dr. Jose Elias Strong HCT 27.5 % Critically low 36.0-48.0 [facility] Comment on above: Performed By: #### T NS #### [facility] [address] [place] [address] Dr. Jose Elias Strong HGB 8.1 g/dl Critically low 12.0-16.0 [facility] Comment on above: Performed By: #### T NS #### [facility] [address] [place] [address] Dr. Jose Elias Strong LYMPHM # 1.62 103/ul Normal 1.20-3.80 [facility] Comment on above: Performed By: #### T NS #### [facility] [address] [address] [address] Jose Elias Strong LYMPHM% 9.0 % Critically low 20.5-60.0 [facility] Comment on above: Performed By: #### T NS #### [facility] [address] [place] [address] Dr. Jose Elias Strong MCH 22.2 pg Critically low 26.7-34.0 [facility] Comment on above: Performed By: #### T NS #### [facility] [address] [place] [address] Dr. Jose Elias Strong MCHC 29.5 g/dl Critically low 29.9-35.2 [facility] Comment on above: Performed By: #### T NS #### [facility] [address] [place] [address] Dr. Jose Elias Strong MCV 75.3 fL Critically low 81.0-99.0 [facility] Comment on above: Performed By: #### T NS #### [facility] [address] [place] [address] Dr. Jose Elias Strong METAMYELOCYTE # Normal [facility] Comment on above: Performed By: #### T NS #### [facility] [address] [place] [address] Dr. Jose Elias Strong METAMYELOCYTE % Normal [facility] Comment on above: Performed By: #### T NS #### [facility] [address] [place] [address] Dr. Jose Elias Strong MONOM# 1.62 103/ul Critically high 0.30-0.80 [facility] Comment on above: Performed By: #### T NS #### [facility] [address] [place] [address] Dr. Jose Elias Strong MONOM% 9.0 % Normal 1.7-12.0 [facility] Comment on above: Performed By: #### T NS #### [facility] [address] [place] [address] Dr. Jose Elias Strong MPV 9.6 fL Normal 9.5-13.5 [facility] Comment on above: Performed By: #### T NS #### [facility] [address] [address] [address] Jose Elias Strong MYELOCYTE # Normal [facility] Comment on above: Performed By: #### T NS #### [facility] [address] [address] [address] Jose Elias Strong MYELOCYTE % Normal [facility] Comment on above: Performed By: #### T NS #### [facility] [address] [address] [address] Jose Elias Strong NRBC Normal [facility] Comment on above: Performed By: #### T NS #### [facility] [address] [address] [address] Jose Elias Strong PLT 308 103/ul Normal 150-450 [facility] Comment on above: Performed By: #### T NS #### [facility] [address] [address] [address] Jose Elias Strong RBC 3.65 106/ul Critically low 4.20-5.40 [facility] Comment on above: Performed By: #### T NS #### [facility] [address] [address] [address] Jose Elias Strong RDW 15.7 % Critically high 11.0-15.0 [facility] Comment on above: Performed By: #### T NS #### [facility] [address] [address] [address] Jose Elias Strong SEG # 14.58 103/ul Critically high 1.40-6.50 [facility] Comment on above: Performed By: #### T NS #### [facility] [address] [address] [address] Jose Elias Strong SEG % 81.0 % Critically high 43.0-75.0 [facility] Comment on above: Performed By: #### T NS #### [facility] [address] [address] [address] Jose Elias Strong WBC 18.0 103/ul Critically high 4.0-11.0 [facility] Comment on above: Performed By: #### T NS #### [facility] [address] [address] [address] Jose Elias Strong DRUG SCREEN RAPID (URINE)on 08-20-2021 AMP Negative Normal NEGATIVE [facility] Comment on above: Performed By: #### T NS #### [facility] [address] [address] [address] Jose Elias Strong BAR Negative Normal NEGATIVE [facility] Comment on above: Performed By: #### T NS #### [facility] [address] [address] [address] Jose Elias Strong BUP Negative Normal NEGATIVE [facility] Comment on above: Performed By: #### T NS #### [facility] [address] [place] [address] Dr. Jose Elias Strong BZO Negative Normal NEGATIVE [facility] Comment on above: Performed By: #### T NS #### [facility] [address] [place] [address] Dr. Jose Elias Strong PAXTON Negative Normal NEGATIVE [facility] Comment on above: Performed By: #### T NS #### [facility] [address] [place] [address] Dr. Jose Elias Strong CUT-OFFS SEE BELOW Normal [facility] Comment on above: Result Comment: AMP [...] Performed By: #### T NS #### [facility] [address] [place] [address] Dr. Jose Elias Strong DRUG CUT HEADER DRUG CLASS TEST SYSTEM CUT-OFF CONCENTRATIONS ARE FOLLOWS: Normal [facility] Comment on above: Performed By: #### T NS #### [facility] [address] [place] [address] Dr. Jose Elias Strong mAMP Negative Normal NEGATIVE [facility] Comment on above: Performed By: #### T NS #### [facility] [address] [place] [address] Dr. Jose Elias Strong MTD Negative Normal NEGATIVE [facility] Comment on above: Performed By: #### T NS #### [facility] [address] [place] [address] Dr. Jose Elias Strong OPI Negative Normal NEGATIVE [facility] Comment on above: Performed By: #### T NS #### [facility] [address] [place] [address] Dr. Jose Elias Strong OXY Negative Normal NEGATIVE [facility] Comment on above: Performed By: #### T NS #### [facility] [address] [place] [address] Dr. Jose Elias Strong PCP Negative Normal NEGATIVE [facility] Comment on above: Performed By: #### T NS #### [facility] [address] [place] [address] Dr. Jose Elias Strong PPX Negative Normal NEGATIVE [facility] Comment on above: Performed By: #### T NS #### [facility] [address] [place] [address] Dr. Jose Elias Strong TCA Negative Normal NEGATIVE [facility] Comment on above: Performed By: #### T NS #### [facility] [address] [place] [address] Dr. Jose Elias Strong THC Negative Normal NEGATIVE [facility] Comment on above: Performed By: #### T NS #### [facility] [address] [place] [address] Dr. Jose Elias Strong UA (CLEAN/CATCH) COMMERCIAL HVAC TECHNICIAN/MICRO I F IND.on 08-20-2021 Bilirubin Ql (U) Negative Normal NEGATIVE [facility] Comment on above: Performed By: #### U MICRO, UACSIND #### [facility] [address] [place] [address] Dr. Jose Elias Strong Clarity (U) SL CLOUDY Abnormal CLEAR [facility] Comment on above: Performed By: #### U MICRO, UACSIND #### [facility] [address] [address] [address] Jose Elias Strong Color (U) RED Abnormal YELLOW [facility] Comment on above: Performed By: #### U MICRO, UACSIND #### [facility] [address] [address] [address] Jose Elias Strong Glucose Ql (U) Negative Normal NEGATIVE [facility] Comment on above: Performed By: #### U MICRO, UACSIND #### [facility] [address] [address] [address] Jose Elias Strong Hemoglobin Ql (U) LARGE Abnormal NEGATIVE [facility] Comment on above: Performed By: #### U MICRO, UACSIND #### [facility] [address] [address] [address] Jose Elias Strong Ketones Ql (U) 15 mg/dl Abnormal NEGATIVE [facility] Comment on above: Performed By: #### U MICRO, UACSIND #### [facility] [address] [address] [address] Jose Elias Strong LEUKOCYTES TRACE Abnormal NEGATIVE [facility] Comment on above: Performed By: #### U MICRO, UACSIND #### [facility] [address] [address] [address] Jose Elias Strong Nitrite Ql (U) Negative Normal NEGATIVE [facility] Comment on above: Performed By: #### U MICRO, UACSIND #### [facility] [address] [address] [address] Jose Elias Strong pH (U) 7.0 [pH] Normal 5-9 [facility] Comment on above: Performed By: #### U MICRO, UACSIND #### [facility] [address] [address] [address] Jose Elias Strong SPEC GRAVITY 1.020 Normal 1.005-<=1.025 [facility] Comment on above: Performed By: #### U MICRO, UACSIND #### [facility] [address] [address] [address] Jose Elias Strong UA PROTEIN 30 mg/dl Abnormal NEGATIVE/ TRACE [facility] Comment on above: Performed By: #### U MICRO, UACSIND #### [facility] [address] [place] [address] Dr. Jose Elias Strong UR MICRO IND INDICATED Normal [facility] Comment on above: Performed By: #### U MICRO, UACSIND #### [facility] [address] [place] [address] Dr. Jose Elias Strong Urobilinogen Qn (U) 0.2 {Mago'U}/dL Normal 0.2 - 1. 0 [facility] Comment on above: Performed By: #### U MICRO, UACSIND #### [facility] [address] [place] [address] Dr. Jose Elias Strong URINE MICROSCOPIC ONLYon BACTERIA NONE SEEN Normal NONE SEEN [facility] Comment on above: Performed By: #### U MICRO, UACSIND #### [facility] [address] [place] [address] Dr. Jose Elias Strong Bacteria identified Cx Nom (U) NOT INDICATED Normal [facility] Comment on above: Performed By: #### U MICRO, UACSIND #### [facility] [address] [place] [address] Dr. Jose Elias Strong CAST NONE SEEN Normal NONE SEEN [facility] Comment on above: Performed By: #### U MICRO, UACSIND #### [facility] [address] [place] [address] Dr. Jose Elias Strong Crystals LM Nom (Urine sed) NONE SEEN Normal NONE SEEN [facility] Comment on above: Performed By: #### U MICRO, UACSIND #### [facility] [address] [place] [address] Dr. Jose Elias Strong Epithelial cells LM Ql (Urine sed) NONE SEEN Normal NONE SEEN /RARE [facility] Comment on above: Performed By: #### U MICRO, UACSIND #### [facility] [address] [place] [address] Dr. Jose Elias Strong MUCOUS NONE SEEN Normal NONE SEEN [facility] Comment on above: Performed By: #### U MICRO, UACSIND #### [facility] [address] [address] [address] Jose Elias Strong RBC (U) [#/Vol] /uL Abnormal 0-2 [facility] Comment on above: Performed By: #### U MICRO, UACSIND #### [facility] [address] [address] [address] Jose Elias Strong WBC 0-2 Abnormal NONE SEEN [facility] Comment on above: Performed By: #### U MICRO, UACSIND #### [facility] [address] [address] [address] Jose Elias Strong CBC AUTO DIFFon 08-19-2021 BASO # 0.0 103/ul Normal 0.0-0.1 [facility] Comment on above: Performed By: #### T NS #### [facility] [address] [address] [address] Jose Elias Strong Basophils/100 WBC (Bld) 0.2 % Normal 0.2-2.0 [facility] Comment on above: Performed By: #### T NS #### [facility] [address] [address] [address] Jose Elias Strong EO # 0.1 103/ul Normal 0.0-0.7 [facility] Comment on above: Performed By: #### T NS #### [facility] [address] [address] [address] Jose Elias Strong Eosinophils/100 WBC (Bld) 0.7 % Critically low 0.9-7.0 [facility] Comment on above: Performed By: #### T NS #### [facility] [address] [address] [address] Jose Elias Strong Erythrocyte distribution width (RBC) [Ratio] 15.9 % Critically high 11.0-15.0 [facility] Comment on above: Performed By: #### T NS #### [facility] [address] [address] [address] Jose Elias Strong Hematocrit (Bld) [Volume fraction] 32.4 % Critically low 36.0-48.0 [facility] Comment on above: Performed By: #### T NS #### [facility] [address] [address] [address] Jose Elias Strong Hemoglobin (Bld) [Mass/Vol] 9.7 g/dL Critically low 12.0-16.0 [facility] Comment on above: Performed By: #### T NS #### [facility] [address] [place] [address] Dr. Jose Elias Strong IG # 0.19 10e3/ul Critically high 0.00-0.03 [facility] Comment on above: Performed By: #### T NS #### [facility] [address] [place] [address] Dr. Jose Elias Strong IG % 1.4 % Critically high 0.0-0.5 [facility] Comment on above: Performed By: #### T NS #### [facility] [address] [place] [address] Dr. Jose Elias Strong LYMPH # 1.9 103/ul Normal 1.2-3.8 [facility] Comment on above: Performed By: #### T NS #### [facility] [address] [place] [address] Dr. Jose Elias Strong Lymphocytes/100 WBC (Bld) 14.4 % Critically low 20.5-60.0 [facility] Comment on above: Performed By: #### T NS #### [facility] [address] [place] [address] Dr. Jose Elias Strong MANUAL DIFF REQ NO Normal [facility] Comment on above: Performed By: #### T NS #### [facility] [address] [place] [address] Dr. Jose Elias Strong MCH (RBC) [Entitic mass] 22.3 pg Critically low 26.7-34.0 [facility] Comment on above: Performed By: #### T NS #### [facility] [address] [place] [address] Dr. Jose Elias Strong MCHC (RBC) [Mass/Vol] 29.9 g/dL Normal 29.9-35.2 [facility] Comment on above: Performed By: #### T NS #### [facility] [address] [address] [address] Jose Elias Strong MCV (RBC) [Entitic vol] 74.5 fL Critically low 81.0-99.0 [facility] Comment on above: Performed By: #### T NS #### [facility] [address] [address] [address] Jose Elias Strong MONO # 1.4 103/ul Critically high 0.3-0.8 [facility] Comment on above: Performed By: #### T NS #### [facility] [address] [place] [address] Dr. Jose Elias Strong Monocytes/100 WBC (Bld) 10.1 % Normal 1.7-12.0 [facility] Comment on above: Performed By: #### T NS #### [facility] [address] [place] [address] Dr. Jose Elias Strong NEUT # 9.8 103/ul Critically high 1.4-6.5 [facility] Comment on above: Performed By: #### T NS #### [facility] [address] [place] [address] Dr. Jsoe Elias Strong Neutrophils/100 WBC (Bld) 73.2 % Normal 43.0-75.0 [facility] Comment on above: Performed By: #### T NS #### [facility] [address] [place] [address] Dr. Jose Elias Strong Platelet mean volume (Bld) [Entitic vol] 10.0 fL Normal 9.5-13.5 [facility] Comment on above: Performed By: #### T NS #### [facility] [address] [place] [address] Dr. Jose Elias Strong PLT 337 103/ul Normal 150-450 [facility] Comment on above: Performed By: #### T NS #### [facility] [address] [place] [address] Dr. Jose Elias Strong RBC 4.35 106/ul Normal 4.20-5.40 [facility] Comment on above: Performed By: #### T NS #### [facility] [address] [address] [address] Jose Elias Strong WBC 13.4 103/ul Critically high 4.0-11.0 [facility] Comment on above: Performed By: #### T NS #### [facility] [address] [place] [address] Dr. Jose Elias Strong Covid-19 PCR (CVDTB)on 08-03 SARS-CoV-2 (COVID-19) RNA [place]+probe Ql (Unsp spec) Not detected Normal NOT DETECTED [facility] Comment on above: Result Comment: [...] for this test is supported by the [place] of [employer] and Human Service's declaration that [...] Performed By: #### C VDTBH #### [facility] [address] [place] [address] Dr. Jose Elias Strong TYPE AND SCREENon 08-19-2021 TYPE AND SCREEN Negative Normal [facility] Comment on above: Performed By: #### T NS #### [facility] [address] [place] [address] Dr. Jose Elias Strong GROUP B STREP CULTUREon 07-05 S. agalactiae Ag Ql (Unsp spec) Culture Observations: NEGATIVE FOR GROUP B STREPTOCOCCUS. Normal [facility] Comment on above: Performed By: #### G BSCX #### [facility] [address] [place] [address] Dr. Jose Elias Strong UA (CLEAN/CATCH) COMMERCIAL HVAC TECHNICIAN/MICRO I F IND.on 06-28-2021 Bilirubin Ql (U) Negative Normal NEGATIVE [facility] Comment on above: Performed By: #### U ACSIND, UMICRO #### [facility] [address] [address] [address] Jose Elias Strong Clarity (U) CLEAR Normal CLEAR [facility] Comment on above: Performed By: #### U ACSIND, UMICRO #### [facility] [address] [address] [address] Jose Elias Strong Color (U) LT. YELLOW Normal YELLOW [facility] Comment on above: Performed By: #### U ACSIND, UMICRO #### [facility] [address] [place] [address] Dr. Jose Elias Strong Glucose Ql (U) Negative Normal NEGATIVE [facility] Comment on above: Performed By: #### U ACSIND, UMICRO #### [facility] [address] [place] [address] Dr. Jose Elias Strong Hemoglobin Ql (U) Negative Normal NEGATIVE [facility] Comment on above: Performed By: #### U ACSIND, UMICRO #### [facility] [address] [place] [address] Dr. Jose Elias Strong Ketones Ql (U) Negative Normal NEGATIVE [facility] Comment on above: Performed By: #### U ACSIND, UMICRO #### [facility] [address] [place] [address] Dr. Jose Elias Strong LEUKOCYTES TRACE Abnormal NEGATIVE [facility] Comment on above: Performed By: #### U ACSIND, UMICRO #### [facility] [address] [place] [address] Dr. Jose Elias Strong Nitrite Ql (U) Negative Normal NEGATIVE [facility] Comment on above: Performed By: #### U ACSIND, UMICRO #### [facility] [address] [place] [address] Dr. Jose Elias Strong pH (U) 6.5 [pH] Normal 5-9 [facility] Comment on above: Performed By: #### U ACSIND, UMICRO #### [facility] [address] [address] [address] Jose Elias Strong SPEC GRAVITY 1.015 Normal 1.005-<=1.025 [facility] Comment on above: Performed By: #### U ACSMICHAEL UMICRO #### [facility] [address] [address] [address] Jose Elias Strong UA PROTEIN Negative Normal NEGATIVE/ TRACE [facility] Comment on above: Performed By: #### U ACSMICHAEL UMICRO #### [facility] [address] [place] [address] Dr. Jose Elias Strong UR MICRO IND INDICATED Normal [facility] Comment on above: Performed By: #### U ACSMICHAEL UMICRO #### [facility] [address] [place] [address] Dr. Jose Elias Strong Urobilinogen Qn (U) 0.2 {Mago'U}/dL Normal 0.2 - 1. 0 [facility] Comment on above: Performed By: #### U ACSMICHAEL UMICRO #### [facility] [address] [place] [address] Dr. Jose Elias Strong URINE MICROSCOPIC ONLYon AMORPHOUS CRYSTALS FEW Normal [facility] Comment on above: Performed By: #### U ACSMICHAEL UMICRO #### [facility] [address] [place] [address] Dr. Jose Elias Strong BACTERIA TRACE Abnormal NONE SEEN [facility] Comment on above: Performed By: #### U ACSMICHAEL UMICRO #### [facility] [address] [place] [address] Dr. Jose Elias Strong Bacteria identified Cx Nom (U) NOT INDICATED Normal [facility] Comment on above: Performed By: #### U ACSMICHAEL UMICRO #### [facility] [address] [place] [address] Dr. Jose Elias Strong CAST NONE SEEN Normal NONE SEEN [facility] Comment on above: Performed By: #### U ACSMICHAEL UMICRO #### [facility] [address] [place] [address] Dr. Jose Elias Strong Crystals LM Nom (Urine sed) SEEN Abnormal NONE SEEN [facility] Comment on above: Performed By: #### U ACSIND, UMICRO #### [facility] [address] [place] [address] Dr. Jose Elias Strong Epithelial cells LM Ql (Urine sed) RARE Normal NONE SEEN /RARE [facility] Comment on above: Performed By: #### U ACSIND, UMICRO #### [facility] [address] [place] [address] Dr. Jose Elias Strong MUCOUS TRACE Abnormal NONE SEEN [facility] Comment on above: Performed By: #### U ACSIND, UMICRO #### [facility] [address] [place] [address] Dr. Jose Elias Strong RBC 0-2 Normal 0-2 [facility] Comment on above: Performed By: #### U ACSMICHAEL, UMICRO #### [facility] [address] [place] [address] Dr. Jose Elias Strong WBC 2-5 Abnormal NONE SEEN [facility] Comment on above: Performed By: #### U ACSMICHAEL, UMICRO #### [facility] [address] [place] [address] Dr. Jose Elias Strong CBC AUTO DIFFon 06-19-2021 BASO # 0.0 103/ul Normal 0.0-0.1 [facility] Comment on above: Performed By: #### C BC #### [facility] [address] [place] [address] Dr. Jose Elias Strong Basophils/100 WBC (Bld) 0.3 % Normal 0.2-2.0 [facility] Comment on above: Performed By: #### C BC #### [facility] [address] [place] [address] Dr. Jose Elias Strong EO # 0.2 103/ul Normal 0.0-0.7 [facility] Comment on above: Performed By: #### C BC #### [facility] [address] [place] [address] Dr. Jose Elias Strong Eosinophils/100 WBC (Bld) 2.0 % Normal 0.9-7.0 [facility] Comment on above: Performed By: #### C BC #### [facility] [address] [address] [address] Jose Elias Strong Erythrocyte distribution width (RBC) [Ratio] 13.6 % Normal 11.0-15.0 [facility] Comment on above: Performed By: #### C BC #### [facility] [address] [place] [address] Dr. Jose Elias Strong Hematocrit (Bld) [Volume fraction] 29.4 % Critically low 36.0-48.0 [facility] Comment on above: Performed By: #### C BC #### [facility] [address] [place] [address] Dr. Jose Elias Strong Hemoglobin (Bld) [Mass/Vol] 9.5 g/dL Critically low 12.0-16.0 [facility] Comment on above: Performed By: #### C BC #### [facility] [address] [place] [address] Dr. Jose Elias Strong IG # 0.14 10e3/ul Critically high 0.00-0.03 [facility] Comment on above: Performed By: #### C BC #### [facility] [address] [place] [address] Dr. Jose Elias Strong IG % 1.4 % Critically high 0.0-0.5 [facility] Comment on above: Performed By: #### C BC #### [facility] [address] [place] [address] Dr. Jose Elias Strong LYMPH # 1.6 103/ul Normal 1.2-3.8 [facility] Comment on above: Performed By: #### C BC #### [facility] [address] [place] [address] Dr. Jose Elias Strong Lymphocytes/100 WBC (Bld) 15.5 % Critically low 20.5-60.0 [facility] Comment on above: Performed By: #### C BC #### [facility] [address] [place] [address] Dr. Jose Elias Strong MANUAL DIFF REQ NO Normal [facility] Comment on above: Performed By: #### C BC #### [facility] [address] [address] [address] Jose Elias Strong MCH (RBC) [Entitic mass] 26.8 pg Normal 26.7-34.0 [facility] Comment on above: Performed By: #### C BC #### [facility] [address] [address] [address] Jose Elias Strong MCHC (RBC) [Mass/Vol] 32.3 g/dL Normal 29.9-35.2 [facility] Comment on above: Performed By: #### C BC #### [facility] [address] [address] [address] Jose Elias Strong MCV (RBC) [Entitic vol] 82.8 fL Normal 81.0-99.0 [facility] Comment on above: Performed By: #### C BC #### [facility] [address] [place] [address] Dr. Jose Elias Strong MONO # 1.2 103/ul Critically high 0.3-0.8 [facility] Comment on above: Performed By: #### C BC #### [facility] [address] [address] [address] Jose Elias Strong Monocytes/100 WBC (Bld) 12.2 % Critically high 1.7-12.0 [facility] Comment on above: Performed By: #### C BC #### [facility] [address] [place] [address] Dr. Jose Elias Strong NEUT # 7.0 103/ul Critically high 1.4-6.5 [facility] Comment on above: Performed By: #### C BC #### [facility] [address] [place] [address] Dr. Jose Elias Strong Neutrophils/100 WBC (Bld) 68.6 % Normal 43.0-75.0 [facility] Comment on above: Performed By: #### C BC #### [facility] [address] [place] [address] Dr. Jose Elias Strong Platelet mean volume (Bld) [Entitic vol] 9.1 fL Critically low 9.5-13.5 [facility] Comment on above: Performed By: #### C BC #### [facility] [address] [address] [address] Jose Elias Strong PLT 309 103/ul Normal 150-450 [facility] Comment on above: Performed By: #### C BC #### [facility] [address] [address] [address] Jose Elias Strong RBC 3.55 106/ul Critically low 4.20-5.40 [facility] Comment on above: Performed By: #### C BC #### [facility] [address] [address] [address] Jose Elias Strong WBC 10.1 103/ul Normal 4.0-11.0 [facility] Comment on above: Performed By: #### C BC #### [facility] [address] [address] [address] Jose Elias Strong GLYCOHEMOGLOBIN A1Con 2021 ADA RECOMMENDATION ADA THERAPEUTIC TARGET 6.0 - 7.0 ACTION SUGGESTED > 7.0 Normal [facility] Comment on above: Performed By: #### T NS #### [facility] [address] [address] [address] Jose Elias Strong Glucose [Mass/Vol] 97 mg/dL Normal [facility] Comment on above: Performed By: #### T NS #### [facility] [address] [address] [address] Jose Elias Strong HbA1c (Bld) [Mass fraction] 5.0 % Normal <=6.0 [facility] Comment on above: Performed By: #### T NS #### [facility] [address] [address] [address] Jose Elias Strong Consenton 10-24-2020 Consent [id number] .00CD:127 Normal [facility] In office Testingon 10-25-19 21 In office Testing [id number] 1.00CD:127 Normal [facility] Registrationon 10-24-2020 Registration [id number] .00CD:127 [facility] Registration [id number] .00CD:127 [facility] Vital Signs Date Time Vital Sign Value Performing Clinician Leslie garrett 06-12-2023 11:020500 Body mass index (BMI) [Ratio] 30.26 kg/m2 Mary Venkat DO Work Phone: [facility] 06-12-2023 11:02-050 Body weight 77.47 kg Mary Venkat DO Work Phone: [facility] 06-12-2023 11:02-0500 Diastolic blood pressure 70 mm[Hg] Mary Venkat DO Work Phone: [facility] 06-12-2023 11:02-0500 Systolic blood pressure 118 mm[Hg] Mary Venkat DO Work Phone: [facility] Encounters Encounter Date Encounter Type Care Provider Facility Start: 06-12-2023 End: 06-12-2023 ambulatory MARY VENKAT Not Available Start: 06-12-2023 End: 06-12-2023 Office outpatient visit 15 minutes Mary Venkat DO Work Phone: [facility] Comment on above: Third trimester preg jun Start: 05-29-2023 End: 05-29-2023 ambulatory ERIKA CHAN Not Available Start: 04-23-2023 End: 04-23-2023 ambulatory MARY VENKAT Not Available Start: 03-19-2023 End: 03-19-2023 ambulatory MARY VENKAT Not Available Start: 12-10-2022 ambulatory ALEXANDER Myers [facility] Start: 11-19-2022 End: 11-19-2022 ambulatory YOMAIRA LAWLER [facility] Start: 10-28-2022 End: 10-29[facility]: 08-29-[facility]22 amb[facility] Start: 08-19-2022 End: 08-19-2022 Emergency department patient visit YOMAIRA LAWLER [facility] Start: 08-08-2022 End: 08-08-2022 Emergency department patient visit JERRY WALLS [facility] Start: 06-04-2022 End: 06-04-2022 ambulatory [...] Routine [facility] [address] [place] [id number] Erika Chan PA [address] [place] [address] [facility] Payers Date Payer Category Payer Medicaid [id number] 2022 Medicaid [employer] [place] [id number] 2022-Present [address] [place] [address] [id number] 1995 Unknown [id number] 2.16.840.1.380715.3.579.2.593 1995 Unknown [id number] 2.16.840.1.877915.3.579.2.593 1995 Unknown [id number] 2.16.840.1.998001.3.579.2.593 1995 Unknown [id number] 2.16.840.1.043641.3.579.2.593 1995 Unknown [id number] 2.16.840.1.592452.3.579.2.593 1995 Unknown [id number] 2.16.840.1.254885.3.579.2.593 1995 Unknown [id number] 2.16.840.1.804502.3.579.2.593 1995 Unknown [id number] 2.16.840.1.400753.3.579.2.593 1995 Unknown [id number] 2.16.840.1.119319.3.579.2.121 1995 Unknown [id number] 2.16.840.1.563956.3.579.2.1212 1995 Unknown [id number] 2.16.840.1.936237.3.579.2.121 1995 Unknown [id number] 2.16.840.1.869519.3.579.2.1212 1995 Unknown [id number] 2.16.840.1.671982.3.579.2.1212 1995 Unknown [id number] 2.16.840.1.551742.3.579.2.1213 1995 Unknown [id number] 2.16.840.1.320352.3.579.2.9 1995 Unknown [id number] 2.16.840.1.654863.3.579.2.9 1995 Unknown [id number] 2.16.840.1.179056.3.579.2.9 1995 Unknown [id number] 2.16.840.1.069969.3.579.2.1259 1959 Unknown [id number] Social History Date Type Detail Facility Start: 10-21-2022 Tobacco smoking stat [facility] Never smoked tobacco [facility] Start: 10-21-2022 [...] Ambulatory Problems Diagnosis Date Noted Acute asthma ([facility]) 12/03/2022 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 12/03/2022 Neck swelling 08/19/2022 Schizoaffective disorder ([facility]) 12/03/2022 Resolved Ambulatory Problems Diagnosis Date Noted No Resolved Ambulatory Problems Past Medical History: Diagnosis Date BMI 24.0-24.9, adult Depot contraception Encounter for IUD insertion Encounter for Papanicolaou cervical smear to confirm findings of recent normal smear following initial abnormal smear Intrauterine device surveillance Schizo-affective psychosis ([facility]) Urine test negative Family History Problem Relation [...] nursing note reviewed. Exam conducted with a photolith operator present. Vitals: Estimated body mass index is [...] section and content) DATE CREATED AUTHOR 10/25/2020 [facility] DATE CREATED AUTHOR AUTHOR'S ORGANIZ ATION 06/11/2022 [facility] DATE CREATED AUTHOR AUTHOR'S ORGANIZ ATION 12/16/2022 [facility] DATE CREATED AUTHOR AUTHOR'S ORGANIZ ATION 06/13/2023 [facility] EPIC Reason for Visit (unrecogniz [...] BE BASED ON THE PRIMARY CLINICAL RECORDS. [employer] provides no warranty or guarantee of the accuracy or completeness of information in this document.
[2023-07-01 12:07] VITALS: BP 102/63; PULSE 94
== END 2023-07-01 13:00 | disposition home or self-care (01) ==
LOC: US 07:00 → FBC 11:33
PROVIDERS: PCP Family Medicine; Visit Provider Obstetrics & Gynecology
DX: O36.63X0 Maternal care for excessive fetal growth, third trimester, not applicable or unspecified (principal); Z3A.35 35 weeks gestation of pregnancy
CPT/HCPCS: 76818

== ENCOUNTER 2023-07-08 07:40 | Outpatient (OUT) | payer OTHER, SELFPAY ==
--- OUTSIDE RECORDS SUMMARY | 2023-07-08 08:14 | XMS_ITS | CCD ---
Author Name Unknown Address [address] [place] [address] Organization [facility] Care Team Providers Care Rampman Name Role Phone VENKAT, DR HERNANDEZ Admitting [...] [facility] Unavail able VENKAT, DR EHRNANDEZ Consulting Unavailable VENKAT, DR HERNANDEZ Admitting Unavailable [...] Translations: [LATEX] Drug allergy (disorder) 6 [facility] Repository (2 sources) Leucine; Translations: [NICKEL] Drug Allergy 7 [facility] Rep[facility] (2 sources) Penicillins; Translations: [PENICILLINS] Drug allergy (disorder) 7 [facility] Repository (1 source) Shellfish Drug allergy (disorder) 7 [facility] Repository (2 sources) Iodine; Translations: [IODINE] Drug Allergy 3 [facility] Repository (1 source) SHELLFISH CONTAINING PRODUCTS; Translations: [SHELLFISH CONTAINING PRODUCTS] Propensity to adverse reactions to drug (disorder) 3 [facility] Repository (1 source) VENOM-HONEY BEE; Translations: [VENOM-HONEY BEE] Propensity to adverse reactions to drug (disorder) 3 [facility] Repository (1 source) Amoxicillin Drug Allergy 3 Unknown [facility] (1 source) Bee pollen Allergy to substance 3 Unknown [facility] (1 source) Honey bee venom Propensity to adverse reactions 3 [facility] (1 source) Latex Allergy to substance 3 Unknown [facility] (1 source) nickel sulfate Drug Allergy 3 [facility] (1 source) Penicillin G Drug Allergy 3 Unknown [facility] (1 source) Shellfish-Derive d Products Drug Allergy 3 Unknown [facility] Medications Current Medications Medication Drug Class(es) Dates Sig (Normalized) Sig (Original) [id number] 200 actuat albuterol 0.09 mg/actuat metered dose [...] sexual mode of transmission complicating childbirth; Translations: [[facility] INF SEXL TRNSMS COMP CHILDBIRTH] Onset: 08-19-2021 Episodic Other complications of ; puerperium affecting management of mother (1 source) Other mental disorders complicating childbirth; Translations: [[facility] MENTAL D/O COMP CHILDBIRTH] Onset: 08-30-2021 Episodic Other complications of (4 sources) Other specified related conditions, third trimester; Translations: [[facility] SPEC PREG RELATED COND 3RD TRI] Onset: [...] Negative Negative - 4(70) +++ mg/dL [facility] Blood, UA Negative Negative - 50 Yovany/mcL [facility] Clarity, UA Clear [facility] Color, UA Yellow [facility] Glucose, UA Negative Negative - 2000(110) ++++ mg/dL [facility] Interpretation and review of laboratory results Abnormal [facility] Ketones, UA Negative Negative - 160(16) ++++ mg/dL [facility] Leukocytes, UA Positive Negative - 500+++ Jamey/mcL [facility] Nitrite, UA Negative Negative - Positive [facility] pH, UA 5.5 5 - 9 [facility] Protein, UA Positive Negative - 2000(20) ++++ mg/dL [facility] Spec Grav, UA 1.020 1 - 1.03 [facility] Urobilinogen, UA 1.0 0.2 - 12 mg/dL [facility] HCG, Urineon 11-19-2022 Beta HCG ( test) Ql (U) Negative Normal [facility] Comment on above: Order Comment: The c alculated GFR uses the (IDMS)-traceable creatinine MDRD equation and is reported in mL/min/1.73 square meters. This formula is not recommended for use with individuals with unstable creatinine concentrations, extremes in muscle mass and/or body size, or alternative diets and may not be suitable for all patient populations. Testing performed at [facility], [address] [place] [address] 65927 Result Comment: Note : This test provides only a presumptive diagnosis for . If the HCG result is inconsistent with clinical evidence, results should be confirmed with an alternative method, such as a quantitative HCG. Basic Metabolic Profileon ANIO 11 mmol/L Low 12-20 [facility] Comment on above: Order Comment: Testi ng performed at [facility], [address] [place] [address] 80524 Calcium [Mass/Vol] 9.5 mg/dL Normal 8.4-10.2 [facility] Comment on above: Order Comment: Testi ng performed at [facility], [address] [place] [address] 67102 Chloride [Moles/Vol] 107 mmol/L Normal 98-107 [facility] Comment on above: Order Comment: Testi ng performed at [facility], [address] [place] [address] 68100 CO2 [Moles/Vol] 23.0 mmol/L Normal 22.0-30.0 [facility] Comment on above: Order Comment: Testi ng performed at [facility], [address] [place] [address] 92585 Creatinine [Mass/Vol] 0.7 mg/dL Normal 0.6-1.2 [facility] Comment on above: Order Comment: Testi ng performed at [facility], [address] [place] [address] 45978 Glucose [Mass/Vol] 118 mg/dL High 74-106 [facility] Comment on above: Order Comment: Testi ng performed at [facility], [address] [place] [address] 91526 Potassium [Moles/Vol] 4.1 mmol/L Normal 3.3-4.9 [facility] Comment on above: Order Comment: Testi ng performed at [facility], [address] [place] [address] 11506 Sodium [Moles/Vol] 137 mmol/L Normal 137-145 [facility] Comment on above: Order Comment: Testi ng performed at [facility], [address] [place] [address] 18333 Urea nitrogen [Mass/Vol] 14 mg/dL Normal 8-19 [facility] Comment on above: Order Comment: Testi ng performed at [facility], [address] [place] [address] 77908 CBC w/Auto Diffon 08-19-2022 Basophils (Bld) [#/Vol] 0.04 10*3/uL Normal 0.00-0.10 [facility] Comment on above: Order Comment: [...] no longer indicated. Testing performed at [facility], [address] [place] [address] 32039 Eosinophils (Bld) [#/Vol] 0.05 10*3/uL Normal 0.00-0.40 [facility] Comment on above: Order Comment: [...] no longer indicated. Testing performed at [facility], [address] [place] [address] 77414 Erythrocyte distribution width (RBC) [Ratio] 13.3 % Normal 11.7-14.4 [facility] Comment on above: Order Comment: [...] no longer indicated. Testing performed at [facility], [address] [place] [address] 41024 Hematocrit (Bld) [Volume fraction] 36.1 % Normal 34.1-44.9 [facility] Comment on above: Order Comment: [...] longer indicated. Testing performed at [facility], [address] [place] [address] 76916 Hemoglobin (Bld) [Mass/Vol] 12.0 g/dL Normal 11.2-15.7 [facility] Comment on above: Order Comment: [...] no longer indicated. Testing performed at [facility], [address] [place] [address] 47336 IG % (B) 0.6 % High 0.0-0.4 [...] longer indicated. Testing performed at [facility], [address] [place] [address] 35616 IG# (B) 0.14 10*3/uL High 0.00-0.00 [facility] Comment on above: Order Comment: [...] longer indicated. Testing performed at [facility], [address] [place], [place] [phone] Lymphocytes (Bld) [#/Vol] 0.81 10*3/uL Low 1.20-3.70 [facility] Comment on above: Order Comment: [...] longer indicated. Testing performed at [facility], [address] [place] [address] 65488 MCH (RBC) [Entitic mass] 28.5 pg Normal 25.6-32.2 [facility] Comment on above: Order Comment: [...] longer indicated. Testing performed at [facility], [address] [place] [address] 54042 MCHC (RBC) [Mass/Vol] 33.2 g/dL Normal 32.2-35.5 [facility] Comment on above: Order Comment: [...] longer indicated. Testing performed at [facility], [address] [place] [address] 51753 MCV (RBC) [Entitic vol] 85.7 fL Normal 79.4-94.8 [facility] Comment on above: Order Comment: [...] longer indicated. Testing performed at [facility], [address] [place] [address] 87255 Monocytes (Bld) [#/Vol] 1.81 10*3/uL High 0.20-0.90 [facility] Comment on above: Order Comment: [...] no longer indicated. Testing performed at [facility], [address] [place] [address] 04883 Neutrophils (Bld) [#/Vol] 20.04 10*3/uL High 1.60-6.10 [facility] Comment on above: Order Comment: [...] no longer indicated. Testing performed at [facility], [address] [place] [address] 26040 NRBC % (B) 0.0 /100{WBC} Normal 0.0-0.2 [facility] Comment on above: Order Comment: [...] longer indicated. Testing performed at [facility], [address] [place] [address] 41798 NRBC# (B) 0.00 10*3/uL Normal 0.00-0.00 [facility] Comment on above: Order Comment: [...] longer indicated. Testing performed at [facility], [address] [place] [address] 22726 Platelet mean volume (Bld) [Entitic vol] 9.9 fL Normal 9.4-12.3 [facility] Comment on above: Order Comment: [...] longer indicated. Testing performed at [facility], [address] [place] [address] 73158 Platelets (Bld) [#/Vol] 267 10*3/uL Normal 182-369 [facility] Comment on above: Order Comment: [...] no longer indicated. Testing performed at [facility], [address] [place] [address] 50912 RBC (Bld) [#/Vol] 4.21 10*6/uL Normal 3.93-5.22 [...] longer indicated. Testing performed at [facility], [address] [place] [address] 10514 RDW-SD (B) 41.1 fL Normal 36.4-46.3 [facility] [...] no longer indicated. Testing performed at [facility], [address] [place] [address] 55258 WBC (Bld) [#/Vol] 22.9 10*3/uL High 4.0-10.0 [...] no longer indicated. Testing performed at [facility], [address] [place] [address] NECK WITHOUT CONTRASTon 0 08-19-2022 CT [...] facility radiology department. Electronically Signed By: Shu Slainas MD On: 08/19/2022 1:25 PM Normal [facility] EST Glomerular Filtration Ra jude 08-19-2022 EAGFR (B) >60 Normal >60 [facility] [...] patient populations. Testing performed at [facility], [address] [place] [address] 31683 Result Comment: The reported eGFR is based on a non- patient, for Americans multiply the result by 1.212. HCG, Serumon 08-19-2022 HCGS Negative Normal [facility] Comment on above: Order Comment: Testi ng performed at [facility], [address] [place] [address] 70018 Result Comment: Note : This test provides only a presumptive diagnosis for . If the HCG result is inconsistent with clinical evidence, results should be confirmed with an alternative method, such as a quantitative HCG. Man Diffon 08-19-2022 Eos, Diff 2 % Normal 0-6 [facility] Comment on above: Order Comment: Testi ng performed at [facility], [address] [place] [address] 05357 Lymphocytes/100 WBC (Bld) 3 % Low 20-53 [facility] Comment on above: Order Comment: Testi ng performed at [facility], [address] [place] [address] 47299 Dewey, Diff 6 % Normal 5-12 [facility] Comment on above: Order Comment: Testi ng performed at [facility], [address] [place] [address] 46353 Segs. Diff 89 % High 34-70 [facility] Comment on above: Order Comment: Testi ng performed at [facility], [place] [place] [address] Slide Scan Normal Normal Normal [facility] Comment on above: Order Comment: Testi ng performed at [facility], [address] [place] [address] Basic Metabolic Profileon ANIO 12 mmol/L Normal 12-20 [facility] Comment on above: Order Comment: Testi ng performed at [facility], [place] [address] Calcium [Mass/Vol] 9.1 mg/dL Normal 8.4-10.2 [facility] Comment on above: Order Comment: [facility], [address] [place] [address] Chloride [Moles/Vol] 106 mmol/L Normal 98-107 [facility] Comment on above: Order Comment: [facility], [address] [place] [address] CO2 [Moles/Vol] 27.0 mmol/L Normal 22.0-30.0 [facility] Comment on above: Order Comment: Testi ng performed at [facility], [place] [place] [address] Creatinine [Mass/Vol] 0.6 mg/dL Normal 0.6-1.2 [facility] Comment on above: Order Comment: Testi ng performed at [facility], [place] [place] [address] Glucose [Mass/Vol] 95 mg/dL Normal 74-106 [facility] Comment on above: Order Comment: Testi ng performed at [facility], [address] [place] [address] Potassium [Moles/Vol] 4.1 mmol/L Normal 3.3-4.9 [facility] Comment on above: Order Comment: Testi ng performed at [facility], [address] [place] [address] Sodium [Moles/Vol] 141 mmol/L Normal 137-145 [facility] Comment on above: Order Comment: Testi ng performed at [facility], [place] [place] [address] Urea nitrogen [Mass/Vol] 9 mg/dL Normal 8-19 [facility] Comment on above: Order Comment: Testi ng performed at [facility], [address] [place] [address] CBC w/Auto Diffon 08-08-2022 Basophils (Bld) [#/Vol] 0.04 10*3/uL Normal 0.00-0.10 [facility] Comment on above: Order Comment: [...] no longer indicated. Testing performed at [facility], [address] [place] [address] 04763 Basophils/100 WBC (Bld) 0.4 % Normal 0.1-1.2 [facility] Comment on above: Order Comment: [...] longer indicated. Testing performed at [facility], [address] [place] [address] 67735 Eosinophils (Bld) [#/Vol] 0.21 10*3/uL Normal 0.00-0.40 [facility] Comment on above: Order Comment: [...] longer indicated. Testing performed at [facility], [address] [place] [address] 22520 Eosinophils/100 WBC (Bld) 2.1 % Normal 0.7-5.8 [facility] Comment on above: Order Comment: [...] no longer indicated. Testing performed at [facility], [address] [place] [address] 90554 Erythrocyte distribution width (RBC) [Ratio] 12.9 % Normal 11.7-14.4 [facility] Comment on above: Order Comment: [...] longer indicated. Testing performed at [facility], [address] [place] [address] Hematocrit (Bld) [Volume fraction] 35.4 % Normal 34.1-44.9 [facility] Comment on above: Order Comment: [...] longer indicated. Testing performed at [facility], [address] [place], [place] [address] Hemoglobin (Bld) [Mass/Vol] 11.2 g/dL Normal 11.2-15.7 [facility] Comment on above: Order Comment: [...] longer indicated. Testing performed at [facility], [address] [place] [address] 86859 IG % (B) 0.4 % Normal 0.0-0.4 [...] longer indicated. Testing performed at [facility], [address] [place] [address] 19644 IG# (B) 0.04 10*3/uL High 0.00-0.00 [facility] Comment on above: Order Comment: [...] longer indicated. Testing performed at [facility], [address] [place] [address] 96447 Lymphocytes (Bld) [#/Vol] 1.60 10*3/uL Normal 1.20-3.70 [facility] Comment on above: Order Comment: [...] longer indicated. Testing performed at [facility], [address] [place] [address] 77302 Lymphocytes/100 WBC (Bld) 16.3 % Low 19.3-51.7 [facility] Comment on above: Order Comment: [...] no longer indicated. Testing performed at [facility], [address] [place] [address] 37164 MCH (RBC) [Entitic mass] 27.7 pg Normal 25.6-32.2 [facility] Comment on above: Order Comment: [...] no longer indicated. Testing performed at [facility], [address] [place] [address] 53346 MCHC (RBC) [Mass/Vol] 31.6 g/dL Low 32.2-35.5 [facility] Comment on above: Order Comment: [...] longer indicated. Testing performed at [facility], [address] [place] [address] 49302 MCV (RBC) [Entitic vol] 87.4 fL Normal 79.4-94.8 [facility] Comment on above: Order Comment: [...] longer indicated. Testing performed at [facility], [address] [place] [address] 76121 Monocytes (Bld) [#/Vol] 0.88 10*3/uL Normal 0.20-0.90 [facility] Comment on above: Order Comment: [...] longer indicated. Testing performed at [facility], [address] [place] [address] 72879 Monocytes/100 WBC (Bld) 8.9 % Normal 4.7-12.5 [facility] Comment on above: Order Comment: [...] no longer indicated. Testing performed at [facility], [address] [place] [address] 71382 Neutrophils (Bld) [#/Vol] 7.07 10*3/uL High 1.60-6.10 [facility] Comment on above: Order Comment: [...] longer indicated. Testing performed at [facility], [address] [place] [address] 76917 Neutrophils/100 WBC (Bld) 71.9 % High 34.0-71.1 [facility] Comment on above: Order Comment: [...] longer indicated. Testing performed at [facility], [address] [place] [address] 34628 NRBC % (B) 0.0 /100{WBC} Normal 0.0-0.2 [facility] Comment on above: Order Comment: [...] no longer indicated. Testing performed at [facility], [address] [place] [address] 97583 NRBC# (B) 0.00 10*3/uL Normal 0.00-0.00 [facility] Comment on above: Order Comment: [...] longer indicated. Testing performed at [facility], [address] [place] [address] 52842 Platelet mean volume (Bld) [Entitic vol] 9.2 fL Low 9.4-12.3 [facility] Comment on above: Order Comment: [...] longer indicated. Testing performed at [facility], [address] [place] [address] 13292 Platelets (Bld) [#/Vol] 315 10*3/uL Normal 182-369 [facility] Comment on above: Order Comment: [...] longer indicated. Testing performed at [facility], [address] [place] [address] 77688 RBC (Bld) [#/Vol] 4.05 10*6/uL Normal 3.93-5.22 [...] longer indicated. Testing performed at [facility], [address] [place] [address] 62079 RDW-SD (B) 41.0 fL Normal 36.4-46.3 [facility] [...] longer indicated. Testing performed at [facility], [address] [place] [address] 25873 WBC (Bld) [#/Vol] 9.8 10*3/uL Normal 4.0-10.0 [facility] Comment on above: Order [...] longer indicated. Testing performed at [facility], [address] [place] [address] NECK WITHOUT CONTRASTon 0 08-08-2022 CT [...] Schultz MD On: 08/08/2022 4:07 PM Normal [facility] EST Glomerular Filtration Ra jude 08-08-2022 [...] patient populations. Testing performed at [facility], [address] [place] [address] 87528 Result Comment: The reported eGFR is based on a non- patient, for Americans multiply the result by 1.212. Pap IG, rfx Aptima HPV, rfx 16/18,45on 06-11-2022 . . Normal [facility] Comment on above: Result Comment: Perf ormed at: WB Performed By: #### P [id number] #### [facility] [address] [place], [place] [address] Dr. [facility] DIAGNOSIS: Comment Normal [facility] Comment on above: Result Comment: NEGA TIVE FOR INTRAEPITHELIAL LESION OR MALIGNANCY. Performed at: WB Performed By: #### P [id number] #### [facility] [address] [place] [address] Dr. [facility] HPV Aptima Negative Normal Negative [facility] Comment on above: Result Comment: This nucleic acid amplification test detects fourteen high-risk HPV types (16,18,31,33,35,39,45,51,52,56,58,59,66,68) without differentiation. Performed at: =G Performed By: #### P [id number] #### [facility] [address] [place] [address] [address] [facility] HPV Genotype Reflex Comment Normal [facility] Comment on above: Result Comment: Crit eria not met, HPV Genotype not performed. Performed at: WB Performed By: #### P [id number] #### [facility] [address] [place] [address] Dr. [facility] Methodology: Comment Normal [facility] Comment on above: Result Comment: This liquid based ThinPrep(R) pap test was screened with the use of an image guided system. Performed at: WB Performed By: #### P [id number] #### [facility] [address] [place] [address] Dr. [facility] Note: Comment Normal [facility] Comment on above: Result Comment: The [...] WB Performed By: #### P [id number] #### [facility] [address] [place] [address] Dr. [facility] Performed by: Comment Normal [facility] Comment on above: Result Comment: Koffi Hutchinson, Tester Operator (ASCP) Performed at: WB Performed By: #### P [id number] #### [facility] [address] [place] [address] Dr. [facility] Specimen adequacy: Comment Normal [facility] Comment on above: Result Comment: Sati sfactory for evaluation. Endocervical and/or squamous metaplastic cells (endocervical component) are present. Performed at: WB Performed By: #### P APHR2A #### [facility] [address] [place] [address] Dr. [facility] PAP ACOG PANEL 2: 21 to 29on 11-20-2021 . . Normal [facility] Comment on above: Performed By: #### [id number] #### [facility] [address] [place] [address] Dr. Jose [facility] Strong Age Gdln ACOG Testing - [facility] Comment on above: Performed By: #### [id number] #### [facility] [address] [place] [address] Dr. [facility] DIAGNOSIS: Comment [facility] Comment on above: Result Comment: NEGA TIVE FOR INTRAEPITHELIAL LESION OR MALIGNANCY. REACTIVE CELLULAR CHANGES AND/OR REPAIR ARE PRESENT. Performed By: #### [id number] #### [facility] [address] [place] [address] Dr. [facility] Electronically signed by: Comment Normal [facility] Comment on above: Result Comment: Melinda Patel MD, Pathologist Performed By: #### [id number] #### [facility] [address] [place] [address] Dr. [facility] Methodology: Comment [facility] Comment on above: Result Comment: This liquid based ThinPrep(R) pap test was screened with the use of an image guided system. Performed By: #### [id number] #### [facility] [address] [place] [address] Dr. [facility] Note: Comment [facility] [...] do occur. . Performed By: #### [id number] #### [facility] [address] [place] [address] Dr. [facility] Performed by: Comment Normal [facility] Comment on above: Result Comment: Bruc e Den Romero, Tester Operator (ASCP) Performed By: #### [id number] #### [facility] [address] [place] [address] Dr. Jose Elias Strong Reflex Criteria: Comment Normal [facility] Comment on above: Result Comment: The HPV DNA reflex criteria were not met with this specimen result therefore, no HPV testing was performed. . Performed By: #### [id number] #### [facility] [address] [place] [address] Dr. Jose Elias Strong Specimen adequacy: Comment Normal [facility] Comment on above: Result Comment: Sati sfactory for evaluation. Endocervical and/or squamous metaplastic cells (endocervical component) are present. Performed By: #### [id number] #### [facility] [address] [place] [address] Dr. Jose Elias Strong CBC W MANUAL DIFFon 08-21-19 22 ANISOCYTOSIS 1+ Normal [facility] Comment on above: Performed By: #### T NS #### [facility] [address] [place] [address] Dr. Jose Elias Strong ATYPICAL LYMPH # Normal [facility] Comment on above: Performed By: #### T NS #### [facility] [address] [place] [address] Dr. Jose Elias Strong ATYPICAL LYMPH % Normal [facility] Comment on above: Performed By: #### T NS #### [facility] [address] [place] [address] Dr. Jose Elias Strong BAND # 0.2 103/ul Normal 0.0-0.3 [facility] Comment on above: Performed By: #### T NS #### [facility] [address] [place] [address] Dr. Jose Elias Strong BAND % 1 % Normal 0-5 [facility] Comment on above: Performed By: #### T NS #### [facility] [address] [place] [address] Dr. Jose Elias Strong BASOM # 0.00 103/ul Normal 0.00-0.10 [facility] Comment on above: Performed By: #### T NS #### [facility] [address] [place] [address] Dr. Jose Elias Strong BASOM % 0.0 % Critically low 0.2-2.0 [facility] Comment on above: Performed By: #### T NS #### [facility] [address] [place] [address] Dr. Jose Elias Strong BLAST # Normal [facility] Comment on above: Performed By: #### T NS #### [facility] [address] [address] [address] Jose Elias Strong BLAST % Normal [facility] Comment on above: Performed By: #### T NS #### [facility] [address] [place] [address] Dr. Jose Elias Strong CORRECTED WBC Normal 4.0-11.0 [facility] Comment on above: Performed By: #### T NS #### [facility] [address] [place] [address] Dr. Jose Elias Strong EOS # 0.00 103/ul Normal 0.00-0.70 [facility] Comment on above: Performed By: #### T NS #### [facility] [address] [place] [address] Dr. Jose Elias Strong EOS% 0.0 % Critically low 0.9-7.0 [facility] Comment on above: Performed By: #### T NS #### [facility] [address] [place] [address] Dr. Jose Elias Strong HCT 27.5 % Critically low 36.0-48.0 [facility] Comment on above: Performed By: #### T NS #### [facility] [address] [place] [address] Dr. Jose Elias Strong HGB 8.1 g/dl Critically low 12.0-16.0 [facility] Comment on above: Performed By: #### T NS #### [facility] [address] [place] [address] Dr. Jose Elias Strong LYMPHM # 1.62 103/ul Normal 1.20-3.80 [facility] Comment on above: Performed By: #### T NS #### [facility] [address] [address] [address] Jose Elias Strong LYMPHM% 9.0 % Critically low 20.5-60.0 [facility] Comment on above: Performed By: #### T NS #### [facility] [address] [address] [address] Jose Elias Strong MCH 22.2 pg Critically low 26.7-34.0 [facility] Comment on above: Performed By: #### T NS #### [facility] [address] [address] [address] Jose Elias Strong MCHC 29.5 g/dl Critically low 29.9-35.2 [facility] Comment on above: Performed By: #### T NS #### [facility] [address] [place] [address] Dr. Jose Elias Strong MCV 75.3 fL Critically low 81.0-99.0 [facility] Comment on above: Performed By: #### T NS #### [facility] [address] [place] [address] Dr. Jose Elias Strong METAMYELOCYTE # Normal [facility] Comment on above: Performed By: #### T NS #### [facility] [address] [place] [address] Dr. Jose Elias Strong METAMYELOCYTE % Normal [facility] Comment on above: Performed By: #### T NS #### [facility] [address] [address] [address] Jose Elias Strong MONOM# 1.62 103/ul Critically high 0.30-0.80 [facility] Comment on above: Performed By: #### T NS #### [facility] [address] [address] [address] Jose Elias Strong MONOM% 9.0 % Normal 1.7-12.0 [facility] Comment on above: Performed By: #### T NS #### [facility] [address] [place] [address] Dr. Jose Elias Strong MPV 9.6 fL Normal 9.5-13.5 [facility] Comment on above: Performed By: #### T NS #### [facility] [address] [address] [address] Jose Elias Strong MYELOCYTE # Normal [facility] Comment on above: Performed By: #### T NS #### [facility] [address] [address] [address] Jose Elias Strong MYELOCYTE % Normal [facility] Comment on above: Performed By: #### T NS #### [facility] [address] [address] [address] Jose Elias Strong NRBC Normal [facility] Comment on above: Performed By: #### T NS #### [facility] [address] [address] [address] Jose Elias Strong PLT 308 103/ul Normal 150-450 [facility] Comment on above: Performed By: #### T NS #### [facility] [address] [address] [address] Jose Elias Strong RBC 3.65 106/ul Critically low 4.20-5.40 [facility] Comment on above: Performed By: #### T NS #### [facility] [address] [address] [address] Jose Elias Strong RDW 15.7 % Critically high 11.0-15.0 [facility] Comment on above: Performed By: #### T NS #### [facility] [address] [address] [address] Jose Elias Strong SEG # 14.58 103/ul Critically high 1.40-6.50 [facility] Comment on above: Performed By: #### T NS #### [facility] [address] [address] [address] Jose Elias Strong SEG % 81.0 % Critically high 43.0-75.0 [facility] Comment on above: Performed By: #### T NS #### [facility] [address] [address] [address] Jose Elias Strong WBC 18.0 103/ul Critically high 4.0-11.0 [facility] Comment on above: Performed By: #### T NS #### [facility] [address] [address] [address] Jose Elias Strong DRUG SCREEN RAPID (URINE)on 08-20-2021 AMP Negative Normal NEGATIVE [facility] Comment on above: Performed By: #### T NS #### [facility] [address] [address] [address] Jose Elias Strong BAR Negative Normal NEGATIVE [facility] Comment on above: Performed By: #### T NS #### [facility] [address] [address] [address] Jose Elias Strong BUP Negative Normal NEGATIVE [facility] Comment on above: Performed By: #### T NS #### [facility] [address] [place] [address] Dr. Jose Elias Strong BZO Negative Normal NEGATIVE [facility] Comment on above: Performed By: #### T NS #### [facility] [address] [place] [address] Dr. Jose Elias Strong PAXTON Negative Normal NEGATIVE [facility] Comment on above: Performed By: #### T NS #### [facility] [address] [place] [address] Dr. Jose Elias Strong CUT-OFFS SEE BELOW Normal [facility] Comment on above: Result Comment: AMP [...] ng/mL Performed By: #### T NS #### [facility] [address] [place] [address] Dr. Jose Elias Strong DRUG CUT HEADER DRUG CLASS TEST SYSTEM CUT-OFF CONCENTRATIONS ARE FOLLOWS: Normal [facility] Comment on above: Performed By: #### T NS #### [facility] [address] [address] [address] Jose Elias Strong mAMP Negative Normal NEGATIVE [facility] Comment on above: Performed By: #### T NS #### [facility] [address] [address] [address] Jose Elias Strong MTD Negative Normal NEGATIVE [facility] Comment on above: Performed By: #### T NS #### [facility] [address] [address] [address] Jose Elias Strong OPI Negative Normal NEGATIVE [facility] Comment on above: Performed By: #### T NS #### [facility] [address] [place] [address] Dr. Jose Elias Strong OXY Negative Normal NEGATIVE [facility] Comment on above: Performed By: #### T NS #### [facility] [address] [place] [address] Dr. Jose Elias Strong PCP Negative Normal NEGATIVE [facility] Comment on above: Performed By: #### T NS #### [facility] [address] [address] [address] Jose Elias Strong PPX Negative Normal NEGATIVE [facility] Comment on above: Performed By: #### T NS #### [facility] [address] [place] [address] Dr. Jose Elias Strong TCA Negative Normal NEGATIVE [facility] Comment on above: Performed By: #### T NS #### [facility] [address] [place] [address] Dr. Jose Elias Strong THC Negative Normal NEGATIVE [facility] Comment on above: Performed By: #### T NS #### [facility] [address] [place] [address] Dr. Jose Elias Strong UA (CLEAN/CATCH) SMELTING ENGINEER/MICRO I F IND.on 08-20-2021 Bilirubin Ql (U) Negative Normal NEGATIVE [facility] Comment on above: Performed By: #### U MICRO, UACSIND #### [facility] [address] [place] [address] Dr. Jose Elias Strong Clarity (U) SL CLOUDY Abnormal CLEAR [facility] Comment on above: Performed By: #### U MICRO, UACSIND #### [facility] [address] [address] [address] Jose Elias Strong Color (U) RED Abnormal YELLOW [facility] Comment on above: Performed By: #### U MICRO, UACSIND #### [facility] [address] [address] [address] Jose Elias Strong Glucose Ql (U) Negative Normal NEGATIVE [facility] Comment on above: Performed By: #### U MICRO, UACSIND #### [facility] [address] [address] [address] Jose Elias Strong Hemoglobin Ql (U) LARGE Abnormal NEGATIVE [facility] Comment on above: Performed By: #### U MICRO, UACSIND #### [facility] [address] [place] [address] Dr. Jose Elias Strong Ketones Ql (U) 15 mg/dl Abnormal NEGATIVE [facility] Comment on above: Performed By: #### U MICRO, UACSIND #### [facility] [address] [place] [address] Dr. Jose Elias Strong LEUKOCYTES TRACE Abnormal NEGATIVE [facility] Comment on above: Performed By: #### U MICRO, UACSIND #### [facility] [address] [place] [address] Dr. Jose Elias Strong Nitrite Ql (U) Negative Normal NEGATIVE [facility] Comment on above: Performed By: #### U MICRO, UACSIND #### [facility] [address] [address] [address] Jose Elias Strong pH (U) 7.0 [pH] Normal 5-9 [facility] Comment on above: Performed By: #### U MICRO, UACSIND #### [facility] [address] [place] [address] Dr. Jose Elias Strong SPEC GRAVITY 1.020 Normal 1.005-<=1.025 [facility] Comment on above: Performed By: #### U MICRO, UACSIND #### [facility] [address] [place] [address] Dr. Jose Elias Strong UA PROTEIN 30 mg/dl Abnormal NEGATIVE/ TRACE [facility] Comment on above: Performed By: #### U MICRO, UACSIND #### [facility] [address] [place] [address] Dr. Jose Elias Strong UR MICRO IND INDICATED Normal [facility] Comment on above: Performed By: #### U MICRO, UACSIND #### [facility] [address] [place] [address] Dr. Jose Elias Strong Urobilinogen Qn (U) 0.2 {Mago'U}/dL Normal 0.2 - 1. 0 [facility] Comment on above: Performed By: #### U MICRO, UACSIND #### [facility] [address] [place] [address] Dr. Jose Elias Strong URINE MICROSCOPIC ONLYon BACTERIA NONE SEEN Normal NONE SEEN [facility] Comment on above: Performed By: #### U MICRO, UACSIND #### [facility] [address] [place] [address] Dr. Jose Elias Strong Bacteria identified Cx Nom (U) NOT INDICATED Normal [facility] Comment on above: Performed By: #### U MICRO, UACSIND #### [facility] [address] [place] [address] Dr. Jose Elias Strong CAST NONE SEEN Normal NONE SEEN [facility] Comment on above: Performed By: #### U MICRO, UACSIND #### [facility] [address] [place] [address] Dr. Jose Elias Strong Crystals LM Nom (Urine sed) NONE SEEN Normal NONE SEEN [facility] Comment on above: Performed By: #### U MICRO, UACSIND #### [facility] [address] [place] [address] Dr. Jose Elias Strong Epithelial cells LM Ql (Urine sed) NONE SEEN Normal NONE SEEN /RARE [facility] Comment on above: Performed By: #### U MICRO, UACSIND #### [facility] [address] [place] [address] Dr. Jose Elias Strong MUCOUS NONE SEEN Normal NONE SEEN [facility] Comment on above: Performed By: #### U MICRO, UACSIND #### [facility] [address] [address] [address] Jose Elias Strong RBC (U) [#/Vol] /uL Abnormal 0-2 [facility] Comment on above: Performed By: #### U MICRO, UACSIND #### [facility] [address] [address] [address] Jose Elias Strong WBC 0-2 Abnormal NONE SEEN [facility] Comment on above: Performed By: #### U MICRO, UACSIND #### [facility] [address] [address] [address] Jose Elias Strong CBC AUTO DIFFon 08-19-2021 BASO # 0.0 103/ul Normal 0.0-0.1 [facility] Comment on above: Performed By: #### T NS #### [facility] [address] [place] [address] Dr. Jose Elias Strong Basophils/100 WBC (Bld) 0.2 % Normal 0.2-2.0 [facility] Comment on above: Performed By: #### T NS #### [facility] [address] [address] [address] Jose Elias Strong EO # 0.1 103/ul Normal 0.0-0.7 [facility] Comment on above: Performed By: #### T NS #### [facility] [address] [place] [address] Dr. Jose Elias Strong Eosinophils/100 WBC (Bld) 0.7 % Critically low 0.9-7.0 [facility] Comment on above: Performed By: #### T NS #### [facility] [address] [address] [address] Jose Elias Strong Erythrocyte distribution width (RBC) [Ratio] 15.9 % Critically high 11.0-15.0 [facility] Comment on above: Performed By: #### T NS #### [facility] [address] [place] [address] Dr. Jose Elias Strong Hematocrit (Bld) [Volume fraction] 32.4 % Critically low 36.0-48.0 [facility] Comment on above: Performed By: #### T NS #### [facility] [address] [address] [address] Jose Elias Strong Hemoglobin (Bld) [Mass/Vol] 9.7 g/dL Critically low 12.0-16.0 [facility] Comment on above: Performed By: #### T NS #### [facility] [address] [address] [address] Jose Elias Strong IG # 0.19 10e3/ul Critically high 0.00-0.03 [facility] Comment on above: Performed By: #### T NS #### [facility] [address] [address] [address] Jose Elias Strong IG % 1.4 % Critically high 0.0-0.5 [facility] Comment on above: Performed By: #### T NS #### [facility] [address] [address] [address] Jose Elias Strong LYMPH # 1.9 103/ul Normal 1.2-3.8 [facility] Comment on above: Performed By: #### T NS #### [facility] [address] [place] [address] Dr. Jose Elias Strong Lymphocytes/100 WBC (Bld) 14.4 % Critically low 20.5-60.0 [facility] Comment on above: Performed By: #### T NS #### [facility] [address] [place] [address] Dr. Jose Elias Strong MANUAL DIFF REQ NO Normal [facility] Comment on above: Performed By: #### T NS #### [facility] [address] [address] [address] Jose Elias Strong MCH (RBC) [Entitic mass] 22.3 pg Critically low 26.7-34.0 [facility] Comment on above: Performed By: #### T NS #### [facility] [address] [address] [address] Jose Elias Strong MCHC (RBC) [Mass/Vol] 29.9 g/dL Normal 29.9-35.2 [facility] Comment on above: Performed By: #### T NS #### [facility] [address] [address] [address] Jose Elias Strong MCV (RBC) [Entitic vol] 74.5 fL Critically low 81.0-99.0 [facility] Comment on above: Performed By: #### T NS #### [facility] [address] [address] [address] Jose Elias Strong MONO # 1.4 103/ul Critically high 0.3-0.8 [facility] Comment on above: Performed By: #### T NS #### [facility] [address] [address] [address] Jose Elias Strong Monocytes/100 WBC (Bld) 10.1 % Normal 1.7-12.0 [facility] Comment on above: Performed By: #### T NS #### [facility] [address] [place] [address] Dr. Jose Elias Strong NEUT # 9.8 103/ul Critically high 1.4-6.5 [facility] Comment on above: Performed By: #### T NS #### [facility] [address] [place] [address] Dr. Jose Elias Strong Neutrophils/100 WBC (Bld) 73.2 % Normal 43.0-75.0 [facility] Comment on above: Performed By: #### T NS #### [facility] [address] [place] [address] Dr. Jose Elias Strong Platelet mean volume (Bld) [Entitic vol] 10.0 fL Normal 9.5-13.5 [facility] Comment on above: Performed By: #### T NS #### [facility] [address] [place] [address] Dr. Jose Elias Strong PLT 337 103/ul Normal 150-450 [facility] Comment on above: Performed By: #### T NS #### [facility] [address] [place] [address] Dr. Jose Elias Strong RBC 4.35 106/ul Normal 4.20-5.40 [facility] Comment on above: Performed By: #### T NS #### [facility] [address] [place] [address] Dr. Jose Elias Strong WBC 13.4 103/ul Critically high 4.0-11.0 [facility] Comment on above: Performed By: #### T NS #### [facility] [address] [place] [address] Dr. Jose Elias Strong Covid-19 PCR ([facility])on 08-03 SARS-CoV-2 (COVID-19) RNA [place]+probe Ql (Unsp spec) Not detected Normal NOT DETECTED [facility] Comment on above: Result [...] for this test is supported by the [place] and [employer]'s declaration that [...] used). Performed By: #### C VDTBH #### [facility] [address] [place] [address] Dr. Jose Elias Strong TYPE AND SCREENon 08-19-2021 TYPE AND SCREEN Negative Normal [facility] Comment on above: Performed By: #### T NS #### [facility] [address] [place] [address] Dr. Jose Elias Strong GROUP B STREP CULTUREon 07-05 S. agalactiae Ag Ql (Unsp spec) Culture Observations: NEGATIVE FOR GROUP B STREPTOCOCCUS. Normal [facility] Comment on above: Performed By: #### G BSCX #### [facility] [address] [place] [address] Dr. Jose Elias Strong UA (CLEAN/CATCH) SMELTING ENGINEER/MICRO I F IND.on 06-28-2021 Bilirubin Ql (U) Negative Normal NEGATIVE [facility] Comment on above: Performed By: #### U ACSIND, UMICRO #### [facility] [address] [place] [address] Dr. Jose Elias Strong Clarity (U) CLEAR Normal CLEAR [facility] Comment on above: Performed By: #### U ACSIND, UMICRO #### [facility] [address] [address] [address] Jose Elias Strong Color (U) LT. YELLOW Normal YELLOW The [facility] Comment on above: Performed By: #### U ACSIND, UMICRO #### [facility] [address] [place] [address] Dr. Jose Elias Strong Glucose Ql (U) Negative Normal NEGATIVE The [facility] Comment on above: Performed By: #### U ACSIND, UMICRO #### [facility] [address] [place] [address] Dr. Jose Elias Strong Hemoglobin Ql (U) Negative Normal NEGATIVE [facility] Comment on above: Performed By: #### U ACSIND, UMICRO #### [facility] [address] [place] [address] Dr. Jose Elias Strong Ketones Ql (U) Negative Normal NEGATIVE The [facility] Comment on above: Performed By: #### U ACSIND, UMICRO #### [facility] [address] [address] [address] Jose Elias Strong LEUKOCYTES TRACE Abnormal NEGATIVE The [facility] Comment on above: Performed By: #### U ACSIND, UMICRO #### [facility] [address] [place] [address] Dr. Jose Elias Strong Nitrite Ql (U) Negative Normal NEGATIVE The [facility] Comment on above: Performed By: #### U ACSIND, UMICRO #### [facility] [address] [place] [address] Dr. Jose Elias Strong pH (U) 6.5 [pH] Normal 5-9 The [facility] Comment on above: Performed By: #### U ACSIND, UMICRO #### [facility] [address] [address] [address] Jose Elias Strong SPEC GRAVITY 1.015 Normal 1.005-<=1.025 The [facility] Comment on above: Performed By: #### U ACSIND, UMICRO #### [facility] [address] [address] [address] Jose Elias Strong UA PROTEIN Negative Normal NEGATIVE/ TRACE The [facility] Comment on above: Performed By: #### U ACSIND, UMICRO #### [facility] [address] [address] [address] Jose Elias Strong UR MICRO IND INDICATED Normal The [facility] Comment on above: Performed By: #### U ACSIND, UMICRO #### [facility] [address] [place] [address] Dr. Jose Elias Strong Urobilinogen Qn (U) 0.2 {Mago'U}/dL Normal 0.2 - 1. 0 [facility] Comment on above: Performed By: #### U ACSIND, UMICRO #### [facility] [address] [place] [address] Dr. Jose Elias Strong URINE MICROSCOPIC ONLYon AMORPHOUS CRYSTALS FEW Normal The [facility] Comment on above: Performed By: #### U ACSIND, UMICRO #### [facility] [address] [place] [address] Dr. Jose Elias Strong BACTERIA TRACE Abnormal NONE SEEN The [facility] Comment on above: Performed By: #### U ACSIND, UMICRO #### [facility] [address] [place] [address] Dr. Jose Elias Strong Bacteria identified Cx Nom (U) NOT INDICATED Normal The [facility] Comment on above: Performed By: #### U ACSIND, UMICRO #### [facility] [address] [address] [address] Jose Elias Strong CAST NONE SEEN Normal NONE SEEN [facility] Comment on above: Performed By: #### U ACSIND, UMICRO #### [facility] [address] [address] [address] Jose Elias Strong Crystals LM Nom (Urine sed) SEEN Abnormal NONE SEEN The [facility] Comment on above: Performed By: #### U ACSIND, UMICRO #### [facility] [address] [place] [address] Dr. Jose Elias Strong Epithelial cells LM Ql (Urine sed) RARE Normal NONE SEEN /RARE The [facility] Comment on above: Performed By: #### U ACSIND, UMICRO #### [facility] [address] [place] [address] Dr. Jose Elias Strong MUCOUS TRACE Abnormal NONE SEEN The [facility] Comment on above: Performed By: #### U ACSIND, UMICRO #### [facility] [address] [place] [address] Dr. Jose Elias Strong RBC 0-2 Normal 0-2 [facility] Comment on above: Performed By: #### U ACSMICHAEL, UMICRO #### [facility] [address] [place] [address] Dr. Jose Elias Strong WBC 2-5 Abnormal NONE SEEN The [facility] Comment on above: Performed By: #### U ACSMICHAEL, UMICRO #### [facility] [address] [place] [address] Dr. Jose Elias Strong CBC AUTO DIFFon 06-19-2021 BASO # 0.0 103/ul Normal 0.0-0.1 [facility] Comment on above: Performed By: #### C BC #### [facility] [address] [place] [address] Dr. Jose Elias Strong Basophils/100 WBC (Bld) 0.3 % Normal 0.2-2.0 The [facility] Comment on above: Performed By: #### C BC #### [facility] [address] [place] [address] Dr. Jose Elias Strong EO # 0.2 103/ul Normal 0.0-0.7 The [facility] Comment on above: Performed By: #### C BC #### [facility] [address] [place] [address] Dr. Jose Elias Strong Eosinophils/100 WBC (Bld) 2.0 % Normal 0.9-7.0 The [facility] Comment on above: Performed By: #### C BC #### [facility] [address] [place] [address] Dr. Jose Elias Strong Erythrocyte distribution width (RBC) [Ratio] 13.6 % Normal 11.0-15.0 [facility] Comment on above: Performed By: #### C BC #### [facility] [address] [place] [address] Dr. Jose Elias Strong Hematocrit (Bld) [Volume fraction] 29.4 % Critically low 36.0-48.0 [facility] Comment on above: Performed By: #### C BC #### [facility] [address] [place] [address] Dr. Jose Elias Strong Hemoglobin (Bld) [Mass/Vol] 9.5 g/dL Critically low 12.0-16.0 [facility] Comment on above: Performed By: #### C BC #### [facility] [address] [place] [address] Dr. Jose Elias Strong IG # 0.14 10e3/ul Critically high 0.00-0.03 [facility] Comment on above: Performed By: #### C BC #### [facility] [address] [place] [address] Dr. Jose Elias Strong IG % 1.4 % Critically high 0.0-0.5 [facility] Comment on above: Performed By: #### C BC #### [facility] [address] [place] [address] Dr. Jose Elias Strong LYMPH # 1.6 103/ul Normal 1.2-3.8 [facility] Comment on above: Performed By: #### C BC #### [facility] [address] [place] [address] Dr. Jose Elias Strong Lymphocytes/100 WBC (Bld) 15.5 % Critically low 20.5-60.0 [facility] Comment on above: Performed By: #### C BC #### [facility] [address] [place] [address] Dr. Jose Elias Strong MANUAL DIFF REQ NO Normal [facility] Comment on above: Performed By: #### C BC #### [facility] [address] [address] [address] Jose Elias Strong MCH (RBC) [Entitic mass] 26.8 pg Normal 26.7-34.0 [facility] Comment on above: Performed By: #### C BC #### [facility] [address] [address] [address] Jose Elias Strong MCHC (RBC) [Mass/Vol] 32.3 g/dL Normal 29.9-35.2 [facility] Comment on above: Performed By: #### C BC #### [facility] [address] [address] [address] Jose Elias Strong MCV (RBC) [Entitic vol] 82.8 fL Normal 81.0-99.0 [facility] Comment on above: Performed By: #### C BC #### [facility] [address] [place] [address] Dr. Jose Elias Strong MONO # 1.2 103/ul Critically high 0.3-0.8 [facility] Comment on above: Performed By: #### C BC #### [facility] [address] [address] [address] Jose Elias Strong Monocytes/100 WBC (Bld) 12.2 % Critically high 1.7-12.0 [facility] Comment on above: Performed By: #### C BC #### [facility] [address] [address] [address] Jose Elias Strong NEUT # 7.0 103/ul Critically high 1.4-6.5 [facility] Comment on above: Performed By: #### C BC #### [facility] [address] [address] [address] Jose Elias Strong Neutrophils/100 WBC (Bld) 68.6 % Normal 43.0-75.0 [facility] Comment on above: Performed By: #### C BC #### [facility] [address] [place] [address] Dr. Jose Elias Strong Platelet mean volume (Bld) [Entitic vol] 9.1 fL Critically low 9.5-13.5 [facility] Comment on above: Performed By: #### C BC #### [facility] [address] [address] [address] Jose Elias Strong PLT 309 103/ul Normal 150-450 [facility] Comment on above: Performed By: #### C BC #### [facility] [address] [address] [address] Jose Elias Strong RBC 3.55 106/ul Critically low 4.20-5.40 [facility] Comment on above: Performed By: #### C BC #### [facility] [address] [address] [address] Jose Elias Strong WBC 10.1 103/ul Normal 4.0-11.0 [facility] Comment on above: Performed By: #### C BC #### [facility] [address] [address] [address] Jose Elias Strong GLYCOHEMOGLOBIN A1Con 2021 ADA RECOMMENDATION ADA THERAPEUTIC TARGET 6.0 - 7.0 ACTION SUGGESTED > 7.0 Normal [facility] Comment on above: Performed By: #### T NS #### [facility] [address] [address] [address] Jose Elias Strong Glucose [Mass/Vol] 97 mg/dL Normal [facility] Comment on above: Performed By: #### T NS #### [facility] [address] [address] [address] Jose Elias Strong HbA1c (Bld) [Mass fraction] 5.0 % Normal <=6.0 [facility] Comment on above: Performed By: #### T NS #### [facility] [address] [address] [address] Jose Elias Strong Consenton 10-24-2020 Consent [id number] .00CD:127 Normal [facility] In office Testingon 10-25-19 In office Testing [id number] 1.00CD:127 Normal [facility] Registrationon 10-24-2020 Registration [id number] .00CD:127 [facility] Registration [id number] .00CD:127 [facility] Vital Signs Date Time Vital Sign Value Performing Clinician Leslie garrett 06-12-2023 11:02-0500 Body mass index (BMI) [Ratio] 30.26 kg/m2 Mary Venkat DO Work Phone: [facility] 06-12-2023 11:02-050 Body weight 77.47 kg Mary Venkat DO Work Phone: [facility] 06-12-2023 11:02-0500 Diastolic blood pressure 70 mm[Hg] Mary Venkat DO Work Phone: [facility] 06-12-2023 11:02-0500 Systolic blood pressure 118 mm[Hg] Mary Venkat DO Work Phone: [facility] Encounters Encounter Date Encounter Type Care Provider Facility Start: 06-24-2023 End: 06-24-2023 ambulatory ERIKA ROCIO Not Available Start: 06-12-2023 End: 06-12-2023 ambulatory MARY VENKAT Not Available Start: 06-12-2023 End: 06-12-2023 Office outpatient visit 15 minutes Mary Venkat DO Work Phone: [facility] Comment on above: Third trimester preg jun Start: 05-29-2023 End: 05-29-2023 ambulatory ERIKA ROCIO Not Available Start: 04-23-2023 End: 04-23-2023 ambulatory MARY VENKAT Not Available Start: 03-19-2023 End: 03-19-2023 ambulatory MARY VENKAT Not Available Start: 12-10-2022 ambulatory ALEXANDER Lucia [facility] Start: 11-19-2022 End: 11-19-2022 ambulatory YOMAIRA LAWLER [facility] Start: 10-28-2022 End: 10-29-2022 ambulatory ALEXANDER [facility] Start: 08-29-2022 ambulatory YOMAIRA LAWLER [facility] Start: 08-19-2022 End: 08-19-2022 Emergency department patient visit YOMAIRA LAWLER [facility] Start: 08-08-2022 End: 08-08-2022 Emergency department patient visit JERRY WALLS [facility] Start: 06-04-2022 End: 06-04-[address] [...] Routine [facility] [address] [place] [id number] Erika Keith PA [address] [place] [address] [facility] Payers Date Payer Category Payer Medicaid [id number] 2022 Medicaid [employer] [place] [id number] 2022-Present [address] [place] [address] [id number] 1995 Unknown [id number] 2.16.840.1.944989.3.579.2.593 1995 Unknown [id number] 2.16.840.1.007477.3.579.2.593 1995 Unknown [id number] 2.16.840.1.255397.3.579.2.593 1995 Unknown [id number] 2.16.840.1.247762.3.579.2.593 1995 Unknown [id number] 2.16.840.1.768262.3.579.2.593 1995 Unknown [id number] 2.16.840.1.031177.3.579.2.593 1995 Unknown [id number] 2.16.840.1.326619.3.579.2.593 1995 Unknown [id number] 2.16.840.1.186973.3.579.2.593 1995 Unknown [id number] 2.16.840.1.498839.3.579.2.121 1995 Unknown [id number] 2.16.840.1.807198.3.579.2.121 1995 Unknown [id number] 2.16.840.1.889745.3.579.2.121 1995 Unknown [id number] 2.16.840.1.371098.3.579.2.1213 1995 Unknown [id number] 2.16.840.1.976432.3.579.2.1212 1995 Unknown [id number] 2.16.840.1.369441.3.579.2.1212 1995 Unknown [id number] 2.16.840.1.358579.3.579.2.1258 1995 Unknown [id number] 2.16.840.1.066891.3.579.2.1258 1995 Unknown [id number] 2.16.840.1.249267.3.579.2.1258 1995 Unknown [id number] 2.16.840.1.442086.3.579.2.1258 1995 Unknown [id number] 2.16.840.1.994993.3.579.2.9 1959 Unknown [id number] Social History Date Type Detail Facility Start: 10-21-2022 Tobacco smoking stat [facility] Never smoked tobacco [facility] Start: [...] Ambulatory Problems Diagnosis Date Noted Acute asthma (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) 12/03/2022 Resolved Ambulatory Problems Diagnosis Date Noted No Resolved Ambulatory Problems Past Medical History: Diagnosis Date BMI 24.0-24.9, adult Depot contraception Encounter for IUD insertion Encounter for Papanicolaou cervical smear to confirm findings of recent normal smear following initial abnormal smear Intrauterine device surveillance Schizo-affective psychosis ([facility]) Urine test negative Family History Problem [...] nursing note reviewed. Exam conducted with a woodworking belt sander present. Vitals: Estimated body mass index is [...] section and content) DATE CREATED AUTHOR 10/25/2020 [facility] DATE CREATED AUTHOR AUTHOR'S ORGANIZ ATION 06/11/2022 [facility] DATE CREATED AUTHOR AUTHOR'S ORGANIZ ATION 12/16/2022 [facility] DATE CREATED AUTHOR AUTHOR'S ORGANIZ ATION 07/01/2023 [facility] EPIC Reason for Visit (unrecogniz ed [...] BE BASED ON THE PRIMARY CLINICAL RECORDS. [facility] [employer] [facility]. provides no warranty or guarantee of the accuracy or completeness of information in this document.
[2023-07-08 11:28] VITALS: BP 115/80; PULSE 114
--- OUTSIDE RECORDS SUMMARY | 2023-07-15 07:40 | XMS_ITS | CCD ---
Author Name Unknown Address [address] [place] [address] Organization [facility] Care Team Providers Care Plugger Name Role Phone VENKAT, DR HERNANDEZ Admitting [...] Translations: [LATEX] Drug allergy (disorder) 6 [facility] Repository (2 sources) Leucine; Translations: [NICKEL] Drug Allergy 7 [facility] Repository (2 sources) Penicillins; Translations: [PENICILLINS] Drug allergy (disorder) 7 [facility] Repository (1 source) Shellfish Drug allergy (disorder) 7 [facility] Repository (2 sources) Iodine; Translations: [IODINE] Drug Allergy 3 [facility] Repository (1 source) SHELLFISH CONTAINING PRODUCTS; Translations: [SHELLFISH CONTAINING PRODUCTS] Propensity to adverse reactions to drug (disorder) 3 [facility] Repository (1 source) VENOM-HONEY BEE; Translations: [VENOM-HONEY BEE] Propensity to adverse reactions to drug (disorder) 3 [facility] Repository (1 source) Amoxicillin Drug Allergy 3 Unknown [facility] (1 source) Bee pollen Allergy to substance 3 Unknown [facility] (1 source) Honey bee venom Propensity to adverse reactions 3 [facility] (1 source) Latex Allergy to substance 3 Unknown [facility] (1 source) nickel sulfate Drug Allergy 3 [facility] (1 source) Penicillin G Drug Allergy 3 Unknown [facility] (1 source) Shellfish-Derive d Products Drug Allergy 3 Unknown [facility] Medications Current Medications Medication Drug Class(es) Dates Sig (Normalized) Sig (Original) [id number] 200 actuat albuterol 0.09 mg/actuat metered dose [...] sexual mode of transmission complicating childbirth; Translations: [[facility] INF SEXL TRNSMS COMP CHILDBIRTH] Onset: 08-19-2021 Episodic Other complications of ; puerperium affecting management of mother (1 source) Other mental disorders complicating childbirth; Translations: [[facility] MENTAL D/O COMP CHILDBIRTH] Onset: 08-30-2021 Episodic Other complications of (4 sources) Other specified related conditions, third trimester; Translations: [[facility] SPEC PREG RELATED COND 3RD TRI] [...] UA Negative Negative - 4(70) +++ mg/dL [facility] Blood, UA Negative Negative - 50 Yovany/mcL [facility] Clarity, UA Clear [facility] Color, UA Yellow [facility] Glucose, UA Negative Negative - 2000(110) ++++ mg/dL [facility] Interpretation and review of laboratory results Abnormal [facility] Ketones, UA Negative Negative - 160(16) ++++ mg/dL [facility] Leukocytes, UA Positive Negative - 500+++ Jamey/mcL [facility] Nitrite, UA Negative Negative - Positive [facility] pH, UA 5.5 5 - 9 [facility] Protein, UA Positive Negative - 2000(20) ++++ mg/dL [facility] Spec Grav, UA 1.020 1 - 1.03 [facility] Urobilinogen, UA 1.0 0.2 - 12 mg/dL [facility] HCG, Urineon 11-19-2022 Beta HCG ( test) Ql (U) Negative Normal [facility] Comment on above: Order Comment: The c alculated GFR uses the (IDMS)-traceable creatinine MDRD equation and is reported in mL/min/1.73 square meters. This formula is not recommended for use with individuals with unstable creatinine concentrations, extremes in muscle mass and/or body size, or alternative diets and may not be suitable for all patient populations. Testing performed at [facility], [address] [place] [address] 15757 Result Comment: Note : This test provides only a presumptive diagnosis for . If the HCG result is inconsistent with clinical evidence, results should be confirmed with an alternative method, such as a quantitative HCG. Basic Metabolic Profileon ANIO 11 mmol/L Low 12-20 [facility] Comment on above: Order Comment: Testi ng performed at [facility], [address] [place] [address] 80229 Calcium [Mass/Vol] 9.5 mg/dL Normal 8.4-10.2 [facility] Comment on above: Order Comment: Testi ng performed at [facility], [address] [place] [address] 28745 Chloride [Moles/Vol] 107 mmol/L Normal 98-107 [facility] Comment on above: Order Comment: Testi ng performed at [facility], [address] [place] [address] 96208 CO2 [Moles/Vol] 23.0 mmol/L Normal 22.0-30.0 [facility] Comment on above: Order Comment: Testi ng performed at [facility], [address] [place] [address] 85969 Creatinine [Mass/Vol] 0.7 mg/dL Normal 0.6-1.2 [facility] Comment on above: Order Comment: Testi ng performed at [facility], [address] [place] [address] 94854 Glucose [Mass/Vol] 118 mg/dL High 74-106 [facility] Comment on above: Order Comment: Testi ng performed at [facility], [address] [place] [address] 53129 Potassium [Moles/Vol] 4.1 mmol/L Normal 3.3-4.9 [facility] Comment on above: Order Comment: Testi ng performed at [facility], [address] [place] [address] 19111 Sodium [Moles/Vol] 137 mmol/L Normal 137-145 [facility] Comment on above: Order Comment: Testi ng performed at [facility], [address] [place] [address] 49868 Urea nitrogen [Mass/Vol] 14 mg/dL Normal 8-19 [facility] Comment on above: Order Comment: Testi ng performed at [facility], [address] [place] [address] 14300 CBC w/Auto Diffon 08-19-2022 Basophils (Bld) [#/Vol] 0.04 10*3/uL Normal 0.00-0.10 [facility] Comment on above: [...] is no longer indicated. Testing performed at [facility], [address] [place] [address] 62404 Eosinophils (Bld) [#/Vol] 0.05 10*3/uL Normal 0.00-0.40 [facility] Comment on above: [...] is no longer indicated. Testing performed at [facility], [address] [place] [address] 48829 Erythrocyte distribution width (RBC) [Ratio] 13.3 % Normal 11.7-14.4 [facility] Comment on above: [...] is no longer indicated. Testing performed at [facility], [address] [place] [address] [phone] Hematocrit (Bld) [Volume fraction] 36.1 % Normal 34.1-44.9 [facility] Comment on above: [...] is no longer indicated. Testing performed at [facility], [address] [place] [address] 57182 Hemoglobin (Bld) [Mass/Vol] 12.0 g/dL Normal 11.2-15.7 [facility] Comment on above: [...] is no longer indicated. Testing performed at [facility], [address] [place] [address] 72783 IG % (B) 0.6 % High 0.0-0.4 [facility] Comment on above: [...] is no longer indicated. Testing performed at [facility], [address] [place] [address] 08475 IG# (B) 0.14 10*3/uL High 0.00-0.00 [facility] Comment on above: [...] is no longer indicated. Testing performed at [facility], [address] [place], [place] [phone] Lymphocytes (Bld) [#/Vol] 0.81 10*3/uL Low 1.20-3.70 [facility] Comment on above: [...] is no longer indicated. Testing performed at [facility], [address] [place] [address] 62099 MCH (RBC) [Entitic mass] 28.5 pg Normal 25.6-32.2 [facility] Comment on above: [...] is no longer indicated. Testing performed at [facility], [address] [place] [address] 50079 MCHC (RBC) [Mass/Vol] 33.2 g/dL Normal 32.2-35.5 [facility] Comment on above: [...] is no longer indicated. Testing performed at [facility], [address] [place] [address] 61627 MCV (RBC) [Entitic vol] 85.7 fL Normal 79.4-94.8 [facility] Comment on above: [...] is no longer indicated. Testing performed at [facility], [address] [place] [address] 13273 Monocytes (Bld) [#/Vol] 1.81 10*3/uL High 0.20-0.90 [facility] Comment on above: [...] is no longer indicated. Testing performed at [facility], [address] [place] [address] 86617 Neutrophils (Bld) [#/Vol] 20.04 10*3/uL High 1.60-6.10 [facility] Comment on above: [...] is no longer indicated. Testing performed at [facility], [address] [place] [address] 78372 NRBC % (B) 0.0 /100{WBC} Normal 0.0-0.2 [facility] Comment on above: [...] is no longer indicated. Testing performed at [facility], [address] [place] [address] 28858 NRBC# (B) 0.00 10*3/uL Normal 0.00-0.00 [facility] Comment on above: [...] is no longer indicated. Testing performed at [facility], [address] [place] [address] 18002 Platelet mean volume (Bld) [Entitic vol] 9.9 fL Normal 9.4-12.3 [facility] Comment on above: [...] is no longer indicated. Testing performed at [facility], [address] [place] [address] 02686 Platelets (Bld) [#/Vol] 267 10*3/uL Normal 182-369 [facility] Comment on above: [...] is no longer indicated. Testing performed at [facility], [address] [place] [address] 23718 RBC (Bld) [#/Vol] 4.21 10*6/uL Normal 3.93-5.22 [facility] Comment on above: Order Comment: [...] is no longer indicated. Testing performed at [facility], [address] [place] [address] 75359 RDW-SD (B) 41.1 fL Normal 36.4-46.3 [facility] Comment on above: [...] is no longer indicated. Testing performed at [facility], [address] [place] [address] 60696 WBC (Bld) [#/Vol] 22.9 10*3/uL High 4.0-10.0 [facility] Comment on above: Order Comment: [...] is no longer indicated. Testing performed at [facility], [address] [place] [address] NECK WITHOUT CONTRASTon 0 08-19-2022 CT [...] [place] MD On: 08/19/2022 1:[address] [facility] EST Glomerular Filtration Ra jude 08-19-2022 EAGFR (B) >60 Normal >60 [facility] Comment on above: Order Comment: The c alculated GFR uses the (IDMS)-traceable creatinine MDRD equation and is reported in mL/min/1.73 square meters. This formula is not recommended for use with individuals with unstable creatinine concentrations, extremes in muscle mass and/or body size, or alternative diets and may not be suitable for all patient populations. Testing performed at [facility], [address] [place] [address] 61157 Result Comment: The reported eGFR is based on a non- patient, for Americans multiply the result by 1.212. HCG, Serumon 08-19-[address] [facility] Comment on above: Order Comment: Testi ng performed at [facility], [address] [place] [address] 19402 Result Comment: Note : This test provides only a presumptive diagnosis for . If the HCG result is inconsistent with clinical evidence, results should be confirmed with an alternative method, such as a quantitative HCG. Man Diffon 08-19-2022 Eos, Diff 2 % Normal 0-6 [facility] Comment on above: Order Comment: Testi ng performed at [facility], [address] [place] [address] 26402 Lymphocytes/100 WBC (Bld) 3 % Low 20-53 [facility] Comment on above: Order Comment: Testi ng performed at [facility], [address] [place] [address] 60831 Jerome, Diff 6 % Normal 5-12 [facility] Comment on above: Order Comment: Testi ng performed at [facility], [address] [place] [address] 54489 Segs. Diff 89 % High 34-70 [facility] Comment on above: Order Comment: Testi ng performed at [facility], [place] [address] Slide Scan Normal Normal Normal [facility] Comment on above: Order Comment: Testi ng performed at [facility], [address] [place] [address] Basic Metabolic Profileon ANIO 12 mmol/L Normal 12-20 [facility] Comment on above: Order Comment: Testi ng performed at [facility], [place] [address] Calcium [Mass/Vol] 9.1 mg/dL Normal 8.4-10.2 [facility] Comment on above: Order Comment: Testi ng performed at [facility], [address] [place] [address] Chloride [Moles/Vol] 106 mmol/L Normal 98-107 [facility] Comment on above: Order Comment: Testi ng performed at [facility], [address] [place] [address] CO2 [Moles/Vol] 27.0 mmol/L Normal 22.0-30.0 [facility] Comment on above: Order Comment: Testi ng performed at [facility], [place] [address] Creatinine [Mass/Vol] 0.6 mg/dL Normal 0.6-1.2 [facility] Comment on above: Order Comment: Testi ng performed at [facility], [place] [address] Glucose [Mass/Vol] 95 mg/dL Normal 74-106 [facility] Comment on above: Order Comment: Testi ng performed at [facility], [address] [place] [address] Potassium [Moles/Vol] 4.1 mmol/L Normal 3.3-4.9 [facility] Comment on above: Order Comment: Testi ng performed at [facility], [address] [place] [address] Sodium [Moles/Vol] 141 mmol/L Normal 137-145 [facility] Comment on above: Order Comment: Testi ng performed at [facility], [place] [address] Urea nitrogen [Mass/Vol] 9 mg/dL Normal 8-19 [facility] Comment on above: Order Comment: Testi ng performed at [facility], [address] [place] [address] CBC w/Auto Diffon 08-08-2022 Basophils (Bld) [#/Vol] 0.04 10*3/uL Normal 0.00-0.10 [facility] Comment on above: [...] is no longer indicated. Testing performed at [facility], [address] [place] [address] 65744 Basophils/100 WBC (Bld) 0.4 % Normal 0.1-1.2 [facility] Comment on above: [...] is no longer indicated. Testing performed at [facility], [address] [place] [address] 26104 Eosinophils (Bld) [#/Vol] 0.21 10*3/uL Normal 0.00-0.40 [facility] Comment on above: [...] is no longer indicated. Testing performed at [facility], [address] [place] [address] 94098 Eosinophils/100 WBC (Bld) 2.1 % Normal 0.7-5.8 [facility] Comment on above: [...] is no longer indicated. Testing performed at [facility], [address] [place] [address] 28128 Erythrocyte distribution width (RBC) [Ratio] 12.9 % Normal 11.7-14.4 [facility] Comment on above: [...] is no longer indicated. Testing performed at [facility], [address] [place] [address] Hematocrit (Bld) [Volume fraction] 35.4 % Normal 34.1-44.9 [facility] Comment on above: [...] is no longer indicated. Testing performed at [facility], [address] [place], [place] [phone] Hemoglobin (Bld) [Mass/Vol] 11.2 g/dL Normal 11.2-15.7 [facility] Comment on above: [...] is no longer indicated. Testing performed at [facility], [address] [place] [address] 75186 IG % (B) 0.4 % Normal 0.0-0.4 [facility] Comment on above: [...] is no longer indicated. Testing performed at [facility], [address] [place] [address] 03784 IG# (B) 0.04 10*3/uL High 0.00-0.00 [facility] Comment on above: [...] is no longer indicated. Testing performed at [facility], [address] [place] [address] 57242 Lymphocytes (Bld) [#/Vol] 1.60 10*3/uL Normal 1.20-3.70 [facility] Comment on above: [...] is no longer indicated. Testing performed at [facility], [address] [place] [address] 44261 Lymphocytes/100 WBC (Bld) 16.3 % Low 19.3-51.7 [facility] Comment on above: [...] is no longer indicated. Testing performed at [facility], [address] [place] [address] 83808 MCH (RBC) [Entitic mass] 27.7 pg Normal 25.6-32.2 [facility] Comment on above: [...] is no longer indicated. Testing performed at [facility], [address] [place] [address] 53357 MCHC (RBC) [Mass/Vol] 31.6 g/dL Low 32.2-35.5 [facility] Comment on above: [...] is no longer indicated. Testing performed at [facility], [address] [place] [address] 51992 MCV (RBC) [Entitic vol] 87.4 fL Normal 79.4-94.8 [facility] Comment on above: [...] is no longer indicated. Testing performed at [facility], [address] [place] [address] 93958 Monocytes (Bld) [#/Vol] 0.88 10*3/uL Normal 0.20-0.90 [facility] Comment on above: [...] is no longer indicated. Testing performed at [facility], [address] [place] [address] 99383 Monocytes/100 WBC (Bld) 8.9 % Normal 4.7-12.5 [facility] Comment on above: [...] is no longer indicated. Testing performed at [facility], [address] [place] [address] 87701 Neutrophils (Bld) [#/Vol] 7.07 10*3/uL High 1.60-6.10 [facility] Comment on above: [...] is no longer indicated. Testing performed at [facility], [address] [place] [address] 83266 Neutrophils/100 WBC (Bld) 71.9 % High 34.0-71.1 [facility] Comment on above: [...] is no longer indicated. Testing performed at [facility], [address] [place] [address] 31714 NRBC % (B) 0.0 /100{WBC} Normal 0.0-0.2 [facility] Comment on above: [...] is no longer indicated. Testing performed at [facility], [address] [place] [address] 26293 NRBC# (B) 0.00 10*3/uL Normal 0.00-0.00 [facility] Comment on above: [...] is no longer indicated. Testing performed at [facility], [address] [place] [address] 20420 Platelet mean volume (Bld) [Entitic vol] 9.2 fL Low 9.4-12.3 [facility] Comment on above: [...] is no longer indicated. Testing performed at [facility], [address] [place] [address] 27161 Platelets (Bld) [#/Vol] 315 10*3/uL Normal 182-369 [facility] Comment on above: [...] is no longer indicated. Testing performed at [facility], [address] [place] [address] 90303 RBC (Bld) [#/Vol] 4.05 10*6/uL Normal 3.93-5.22 [facility] Comment on above: Order Comment: [...] is no longer indicated. Testing performed at [facility], [address] [place] [address] 17312 RDW-SD (B) 41.0 fL Normal 36.4-46.3 [facility] Comment on above: [...] is no longer indicated. Testing performed at [facility], [address] [place] [address] 13665 WBC (Bld) [#/Vol] 9.8 10*3/uL Normal 4.0-10.0 [facility] Comment on above: Order Comment: Immature [...] is no longer indicated. Testing performed at [facility], [address] [place] [address] NECK WITHOUT CONTRASTon 0 08-08-2022 CT [...] [place] MD On: 08/08/2022 4:[address] [facility] EST Glomerular Filtration Ra jude 08-08-2022 EAGFR (B) >60 Normal >60 [facility] Comment on above: Order Comment: The c alculated GFR uses the (IDMS)-traceable creatinine MDRD equation and is reported in mL/min/1.73 square meters. This formula is not recommended for use with individuals with unstable creatinine concentrations, extremes in muscle mass and/or body size, or alternative diets and may not be suitable for all patient populations. Testing performed at [facility], [address] [place] [address] 27808 Result Comment: The reported eGFR is based on a non- patient, for Americans multiply the result by 1.212. Pap IG, rfx Aptima HPV, rfx 16/18,45on 06-11-2022 . . Normal [facility] Comment on above: Result Comment: Perf ormed at: WB Performed By: #### P [id number] #### [facility] [address] [place], [place] [address] Dr. [facility] DIAGNOSIS: Comment Normal [facility] Comment on above: Result Comment: NEGA TIVE FOR INTRAEPITHELIAL LESION OR MALIGNANCY. Performed at: WB Performed By: #### P APHR2A #### [facility] [address] [place] [address] Dr. [facility] HPV Aptima Negative Normal Negative [facility] Comment on above: Result Comment: This nucleic acid amplification test detects fourteen high-risk HPV types (16,18,31,33,35,39,45,51,52,56,58,59,66,68) without differentiation. Performed at: =G Performed By: #### P APHR2A #### [facility] [address] [place] [address] [address] [facility] HPV Genotype Reflex Comment Normal [facility] Comment on above: Result Comment: Crit eria not met, HPV Genotype not performed. Performed at: WB Performed By: #### P APHR2A #### [facility] [address] [place] [address] Dr. Jose [facility] Methodology: Comment Normal [facility] Comment on above: Result Comment: This liquid based ThinPrep(R) pap test was screened with the use of an image guided system. Performed at: WB Performed By: #### P APHR2A #### [facility] [address] [place] [address] Dr. Jose [facility] Note: Comment Normal [facility] [...] WB Performed By: #### P APHR2A #### [facility] [address] [place] [address] Dr. Jose [facility] Performed by: Comment Normal [facility] Comment on above: Result Comment: Koffi Hutchinson, Talent Manager (ASCP) Performed at: WB Performed By: #### P APHR2A #### [facility] [address] [place] [address] Dr. [facility] Specimen adequacy: Comment Normal [facility] Comment on above: Result Comment: Sati sfactory for evaluation. Endocervical and/or squamous metaplastic cells (endocervical component) are present. Performed at: WB Performed By: #### P APHR2A #### [facility] [address] [place] [address] Dr. [facility] PAP ACOG PANEL 2: 21 to 29on 11-20-2021 . . Normal [facility] Comment on above: Performed By: #### [id number] #### [facility] [address] [place] [address] Dr. Jose [facility] Strong Age Gdln ACOG Testing - [facility] Comment on above: Performed By: #### [id number] #### [facility] [facility] [address] [place] [address] Dr. Jose Elias Strong DIAGNOSIS: Comment [facility] Comment on above: Result Comment: NEGA TIVE FOR INTRAEPITHELIAL LESION OR MALIGNANCY. REACTIVE CELLULAR CHANGES AND/OR REPAIR ARE PRESENT. Performed By: #### [id number] #### [facility] [address] [place] [address] Dr. Jose Elias Strong Electronically signed by: Comment Normal [facility] Comment on above: Result Comment: Melinda Patel MD, Pathologist Performed By: #### [id number] #### [facility] [address] [place] [address] Dr. Jose Elias Strong Methodology: Comment [facility] Comment on above: Result Comment: This liquid based ThinPrep(R) pap test was screened with the use of an image guided system. Performed By: #### [id number] #### [facility] [address] [place] [address] Dr. Jose Elias Strong Note: Comment [facility] Comment on above: Result Comment: The Pap smear is a screening test designed to aid in the detection of premalignant and malignant conditions of the uterine cervix. It is not a diagnostic procedure and should not be used as the sole means of detecting cervical cancer. Both false-positive and false-negative reports do occur. . Performed By: #### [id number] #### [facility] [address] [place] [address] Dr. Jose Elias Strong Performed by: Comment Normal [facility] Comment on above: Result Comment: Bruc e Den Romero, Talent Manager (ASCP) Performed By: #### [id number] #### [facility] [address] [place] [address] Dr. Jose Elias Strong Reflex Criteria: Comment Normal [facility] Comment on above: Result Comment: The HPV DNA reflex criteria were not met with this specimen result therefore, no HPV testing was performed. . Performed By: #### [id number] #### [facility] [address] [place] [address] Dr. Jose Elias Strong Specimen adequacy: Comment Normal [facility] Comment on above: Result Comment: Sati sfactory for evaluation. Endocervical and/or squamous metaplastic cells (endocervical component) are present. Performed By: #### [id number] #### [facility] [address] [place] [address] Dr. Jose Elias Strong CBC W MANUAL DIFFon 08-21-19 22 ANISOCYTOSIS 1+ Normal [facility] Comment on above: Performed By: #### T NS #### [facility] [address] [place] [address] Dr. Jose Elias Strong ATYPICAL LYMPH # Normal [facility] Comment on above: Performed By: #### T NS #### [facility] [address] [place] [address] Dr. Jose Elias Strong ATYPICAL LYMPH % Normal [facility] Comment on above: Performed By: #### T NS #### [facility] [address] [place] [address] Dr. Jose Elias Strong BAND # 0.2 103/ul Normal 0.0-0.3 [facility] Comment on above: Performed By: #### T NS #### [facility] [address] [place] [address] Dr. Jose Elias Strong BAND % 1 % Normal 0-5 [facility] Comment on above: Performed By: #### T NS #### [facility] [address] [place] [address] Dr. Jose Elias Strong BASOM # 0.00 103/ul Normal 0.00-0.10 [facility] Comment on above: Performed By: #### T NS #### [facility] [address] [place] [address] Dr. Jose Elias Strong BASOM % 0.0 % Critically low 0.2-2.0 [facility] Comment on above: Performed By: #### T NS #### [facility] [address] [place] [address] Dr. Jose Elias Strong BLAST # Normal [facility] Comment on above: Performed By: #### T NS #### [facility] [address] [address] [address] Jose Elias Strong BLAST % Normal [facility] Comment on above: Performed By: #### T NS #### [facility] [address] [place] [address] Dr. Jose Elias Strong CORRECTED WBC Normal 4.0-11.0 [facility] Comment on above: Performed By: #### T NS #### [facility] [address] [place] [address] Dr. Jose Elias Strong EOS # 0.00 103/ul Normal 0.00-0.70 [facility] Comment on above: Performed By: #### T NS #### [facility] [address] [place] [address] Dr. Jose Elias Strong EOS% 0.0 % Critically low 0.9-7.0 [facility] Comment on above: Performed By: #### T NS #### [facility] [address] [place] [address] Dr. Jose Elias Strong HCT 27.5 % Critically low 36.0-48.0 [facility] Comment on above: Performed By: #### T NS #### [facility] [address] [place] [address] Dr. Jose Elias Strong HGB 8.1 g/dl Critically low 12.0-16.0 [facility] Comment on above: Performed By: #### T NS #### [facility] [address] [place] [address] Dr. Jose Elias Strong LYMPHM # 1.62 103/ul Normal 1.20-3.80 [facility] Comment on above: Performed By: #### T NS #### [facility] [address] [address] [address] Jose Elias Strong LYMPHM% 9.0 % Critically low 20.5-60.0 [facility] Comment on above: Performed By: #### T NS #### [facility] [address] [address] [address] Jose Elias Strong MCH 22.2 pg Critically low 26.7-34.0 [facility] Comment on above: Performed By: #### T NS #### [facility] [address] [address] [address] Jose Elias Strong MCHC 29.5 g/dl Critically low 29.9-35.2 [facility] Comment on above: Performed By: #### T NS #### [facility] [address] [place] [address] Dr. Jose Elias Strong MCV 75.3 fL Critically low 81.0-99.0 [facility] Comment on above: Performed By: #### T NS #### [facility] [address] [place] [address] Dr. Jose Elias Strong METAMYELOCYTE # Normal [facility] Comment on above: Performed By: #### T NS #### [facility] [address] [place] [address] Dr. Jose Elias Strong METAMYELOCYTE % Normal [facility] Comment on above: Performed By: #### T NS #### [facility] [address] [address] [address] Jose Elias Strong MONOM# 1.62 103/ul Critically high 0.30-0.80 [facility] Comment on above: Performed By: #### T NS #### [facility] [address] [address] [address] Jose Elias Strong MONOM% 9.0 % Normal 1.7-12.0 [facility] Comment on above: Performed By: #### T NS #### [facility] [address] [place] [address] Dr. Jose Elias Strong MPV 9.6 fL Normal 9.5-13.5 [facility] Comment on above: Performed By: #### T NS #### [facility] [address] [address] [address] Jose Elias Strong MYELOCYTE # Normal [facility] Comment on above: Performed By: #### T NS #### [facility] [address] [address] [address] Jose Elias Strong MYELOCYTE % Normal [facility] Comment on above: Performed By: #### T NS #### [facility] [address] [address] [address] Jose Elias Strong NRBC Normal [facility] Comment on above: Performed By: #### T NS #### [facility] [address] [address] [address] Jose Elias Strong PLT 308 103/ul Normal 150-450 [facility] Comment on above: Performed By: #### T NS #### [facility] [address] [address] [address] Jose Elias Strong RBC 3.65 106/ul Critically low 4.20-5.40 [facility] Comment on above: Performed By: #### T NS #### [facility] [address] [address] [address] Jose Elias Strong RDW 15.7 % Critically high 11.0-15.0 [facility] Comment on above: Performed By: #### T NS #### [facility] [address] [address] [address] Jose Elias Strong SEG # 14.58 103/ul Critically high 1.40-6.50 [facility] Comment on above: Performed By: #### T NS #### [facility] [address] [address] [address] Jose Elias Strong SEG % 81.0 % Critically high 43.0-75.0 [facility] Comment on above: Performed By: #### T NS #### [facility] [address] [address] [address] Jose Elias Strong WBC 18.0 103/ul Critically high 4.0-11.0 [facility] Comment on above: Performed By: #### T NS #### [facility] [address] [address] [address] Jose Elias Strong DRUG SCREEN RAPID (URINE)on 08-20-2021 AMP Negative Normal NEGATIVE [facility] Comment on above: Performed By: #### T NS #### [facility] [address] [address] [address] Jose Elias Strong BAR Negative Normal NEGATIVE [facility] Comment on above: Performed By: #### T NS #### [facility] [address] [address] [address] Jose Elias Strong BUP Negative Normal NEGATIVE [facility] Comment on above: Performed By: #### T NS #### [facility] [address] [place] [address] Dr. Jose Elias Strong BZO Negative Normal NEGATIVE [facility] Comment on above: Performed By: #### T NS #### [facility] [address] [place] [address] Dr. Jose Elias Strong PAXTON Negative Normal NEGATIVE [facility] Comment on above: Performed By: #### T NS #### [facility] [address] [place] [address] Dr. Jose Elias Strong CUT-OFFS SEE BELOW Normal [facility] Comment [...] ng/mL Performed By: #### T NS #### [facility] [address] [place] [address] Dr. Jose Elias Strong DRUG CUT HEADER DRUG CLASS TEST SYSTEM CUT-OFF CONCENTRATIONS ARE FOLLOWS: Normal [facility] Comment on above: Performed By: #### T NS #### [facility] [address] [address] [address] Jose Elias Strong mAMP Negative Normal NEGATIVE [facility] Comment on above: Performed By: #### T NS #### [facility] [address] [address] [address] Jose Elias Strong MTD Negative Normal NEGATIVE [facility] Comment on above: Performed By: #### T NS #### [facility] [address] [address] [address] Jose Elias Strong OPI Negative Normal NEGATIVE [facility] Comment on above: Performed By: #### T NS #### [facility] [address] [place] [address] Dr. Jose Elias Strong OXY Negative Normal NEGATIVE [facility] Comment on above: Performed By: #### T NS #### [facility] [address] [place] [address] Dr. Jose Elias Strong PCP Negative Normal NEGATIVE [facility] Comment on above: Performed By: #### T NS #### [facility] [address] [address] [address] Jose Elias Strong PPX Negative Normal NEGATIVE [facility] Comment on above: Performed By: #### T NS #### [facility] [address] [place] [address] Dr. Jose Elias Strong TCA Negative Normal NEGATIVE [facility] Comment on above: Performed By: #### T NS #### [facility] [address] [place] [address] Dr. Jose Elias Strong THC Negative Normal NEGATIVE [facility] Comment on above: Performed By: #### T NS #### [facility] [address] [place] [address] Dr. Jose Elias Strong UA (CLEAN/CATCH) PRODUCT DEVELOPMENT/MICRO I F IND.on 08-20-2021 Bilirubin Ql (U) Negative Normal NEGATIVE [facility] Comment on above: Performed By: #### U MICRO, UACSIND #### [facility] [address] [place] [address] Dr. Jose Elias Strong Clarity (U) SL CLOUDY Abnormal CLEAR [facility] Comment on above: Performed By: #### U MICRO, UACSIND #### [facility] [address] [address] [address] Jose Elias Strong Color (U) RED Abnormal YELLOW [facility] Comment on above: Performed By: #### U MICRO, UACSIND #### [facility] [address] [address] [address] Jose Elias Strong Glucose Ql (U) Negative Normal NEGATIVE [facility] Comment on above: Performed By: #### U MICRO, UACSIND #### [facility] [address] [address] [address] Jose Elias Strong Hemoglobin Ql (U) LARGE Abnormal NEGATIVE [facility] Comment on above: Performed By: #### U MICRO, UACSIND #### [facility] [address] [place] [address] Dr. Jose Elias Strong Ketones Ql (U) 15 mg/dl Abnormal NEGATIVE [facility] Comment on above: Performed By: #### U MICRO, UACSIND #### [facility] [address] [place] [address] Dr. Jose Elias Strong LEUKOCYTES TRACE Abnormal NEGATIVE [facility] Comment on above: Performed By: #### U MICRO, UACSIND #### [facility] [address] [place] [address] Dr. Jose Elias Strong Nitrite Ql (U) Negative Normal NEGATIVE [facility] Comment on above: Performed By: #### U MICRO, UACSIND #### [facility] [address] [address] [address] Jose Elias Strong pH (U) 7.0 [pH] Normal 5-9 [facility] Comment on above: Performed By: #### U MICRO, UACSIND #### [facility] [address] [place] [address] Dr. Jose Elias Strong SPEC GRAVITY 1.020 Normal 1.005-<=1.025 [facility] Comment on above: Performed By: #### U MICRO, UACSIND #### [facility] [address] [place] [address] Dr. Jose Elias Strong UA PROTEIN 30 mg/dl Abnormal NEGATIVE/ TRACE [facility] Comment on above: Performed By: #### U MICRO, UACSIND #### [facility] [address] [place] [address] Dr. Jose Elias Strong UR MICRO IND INDICATED Normal [facility] Comment on above: Performed By: #### U MICRO, UACSIND #### [facility] [address] [place] [address] Dr. Jose Elias Strong Urobilinogen Qn (U) 0.2 {Mago'U}/dL Normal 0.2 - 1. 0 [facility] Comment on above: Performed By: #### U MICRO, UACSIND #### [facility] [address] [place] [address] Dr. Jose Elias Strong URINE MICROSCOPIC ONLYon BACTERIA NONE SEEN Normal NONE SEEN [facility] Comment on above: Performed By: #### U MICRO, UACSIND #### [facility] [address] [place] [address] Dr. Jose Elias Strong Bacteria identified Cx Nom (U) NOT INDICATED Normal [facility] Comment on above: Performed By: #### U MICRO, UACSIND #### [facility] [address] [place] [address] Dr. Jose Elias Strong CAST NONE SEEN Normal NONE SEEN [facility] Comment on above: Performed By: #### U MICRO, UACSIND #### [facility] [address] [place] [address] Dr. Jose Elias Strong Crystals LM Nom (Urine sed) NONE SEEN Normal NONE SEEN [facility] Comment on above: Performed By: #### U MICRO, UACSIND #### [facility] [address] [place] [address] Dr. Jose Elias Strong Epithelial cells LM Ql (Urine sed) NONE SEEN Normal NONE SEEN /RARE [facility] Comment on above: Performed By: #### U MICRO, UACSIND #### [facility] [address] [place] [address] Dr. Jose Elias Strong MUCOUS NONE SEEN Normal NONE SEEN [facility] Comment on above: Performed By: #### U MICRO, UACSIND #### [facility] [address] [address] [address] Jose Elias Strong RBC (U) [#/Vol] /uL Abnormal 0-2 [facility] Comment on above: Performed By: #### U MICRO, UACSIND #### [facility] [address] [address] [address] Jose Elias Strong WBC 0-2 Abnormal NONE SEEN [facility] Comment on above: Performed By: #### U MICRO, UACSIND #### [facility] [address] [address] [address] Jose Elias Strong CBC AUTO DIFFon 08-19-2021 BASO # 0.0 103/ul Normal 0.0-0.1 [facility] Comment on above: Performed By: #### T NS #### [facility] [address] [place] [address] Dr. Jose Elias Strong Basophils/100 WBC (Bld) 0.2 % Normal 0.2-2.0 [facility] Comment on above: Performed By: #### T NS #### [facility] [address] [address] [address] Jose Elias Strong EO # 0.1 103/ul Normal 0.0-0.7 [facility] Comment on above: Performed By: #### T NS #### [facility] [address] [place] [address] Dr. Jose Elias Strong Eosinophils/100 WBC (Bld) 0.7 % Critically low 0.9-7.0 [facility] Comment on above: Performed By: #### T NS #### [facility] [address] [address] [address] Jose Elias Strong Erythrocyte distribution width (RBC) [Ratio] 15.9 % Critically high 11.0-15.0 [facility] Comment on above: Performed By: #### T NS #### [facility] [address] [place] [address] Dr. Jose Elias Strong Hematocrit (Bld) [Volume fraction] 32.4 % Critically low 36.0-48.0 [facility] Comment on above: Performed By: #### T NS #### [facility] [address] [address] [address] Jose Elias Strong Hemoglobin (Bld) [Mass/Vol] 9.7 g/dL Critically low 12.0-16.0 [facility] Comment on above: Performed By: #### T NS #### [facility] [address] [address] [address] Jose Elias Strong IG # 0.19 10e3/ul Critically high 0.00-0.03 [facility] Comment on above: Performed By: #### T NS #### [facility] [address] [address] [address] Jose Elias Strong IG % 1.4 % Critically high 0.0-0.5 [facility] Comment on above: Performed By: #### T NS #### [facility] [address] [address] [address] Jose Elias Strong LYMPH # 1.9 103/ul Normal 1.2-3.8 [facility] Comment on above: Performed By: #### T NS #### [facility] [address] [place] [address] Dr. Jose Elias Strong Lymphocytes/100 WBC (Bld) 14.4 % Critically low 20.5-60.0 [facility] Comment on above: Performed By: #### T NS #### [facility] [address] [place] [address] Dr. Jose Elias Strong MANUAL DIFF REQ NO Normal [facility] Comment on above: Performed By: #### T NS #### [facility] [address] [address] [address] Jose Elias Strong MCH (RBC) [Entitic mass] 22.3 pg Critically low 26.7-34.0 [facility] Comment on above: Performed By: #### T NS #### [facility] [address] [address] [address] Jose Elias Strong MCHC (RBC) [Mass/Vol] 29.9 g/dL Normal 29.9-35.2 [facility] Comment on above: Performed By: #### T NS #### [facility] [address] [address] [address] Jose Elias Strong MCV (RBC) [Entitic vol] 74.5 fL Critically low 81.0-99.0 [facility] Comment on above: Performed By: #### T NS #### [facility] [address] [address] [address] Jose Elias Strong MONO # 1.4 103/ul Critically high 0.3-0.8 [facility] Comment on above: Performed By: #### T NS #### [facility] [address] [address] [address] Jose Elias Strong Monocytes/100 WBC (Bld) 10.1 % Normal 1.7-12.0 [facility] Comment on above: Performed By: #### T NS #### [facility] [address] [place] [address] Dr. Jose Elias Strong NEUT # 9.8 103/ul Critically high 1.4-6.5 [facility] Comment on above: Performed By: #### T NS #### [facility] [address] [place] [address] Dr. Jose Elias Strong Neutrophils/100 WBC (Bld) 73.2 % Normal 43.0-75.0 [facility] Comment on above: Performed By: #### T NS #### [facility] [address] [place] [address] Dr. Jose Elias Strong Platelet mean volume (Bld) [Entitic vol] 10.0 fL Normal 9.5-13.5 [facility] Comment on above: Performed By: #### T NS #### [facility] [address] [place] [address] Dr. Jose Elias Strong PLT 337 103/ul Normal 150-450 [facility] Comment on above: Performed By: #### T NS #### [facility] [address] [place] [address] Dr. Jose Elias Strong RBC 4.35 106/ul Normal 4.20-5.40 [facility] Comment on above: Performed By: #### T NS #### [facility] [address] [place] [address] Dr. Jose Elias Strong WBC 13.4 103/ul Critically high 4.0-11.0 [facility] Comment on above: Performed By: #### T NS #### [facility] [address] [place] [address] Dr. Jose Elias Strong Covid-19 PCR ([facility])on 08-03 SARS-CoV-2 (COVID-19) RNA [place]STON+probe Ql (Unsp spec) Not detected Normal NOT DETECTED The [facility] Comment on above: Result Comment: When diagnostic [...] for this test is supported by the [place] of Health and Human Service's declaration that [...] used). Performed By: #### C VDTBH #### [facility] [address] [place] [address] Dr. Jose Elias Strong TYPE AND SCREENon 08-19-2021 TYPE AND SCREEN Negative Normal [facility] Comment on above: Performed By: #### T NS #### [facility] [address] [place] [address] Dr. Jose Elias Strong GROUP B STREP CULTUREon 07-05 S. agalactiae Ag Ql (Unsp spec) Culture Observations: NEGATIVE FOR GROUP B STREPTOCOCCUS. Normal The [facility] Comment on above: Performed By: #### G BSCX #### [facility] [address] [place] [address] Dr. Jose Elias Strong UA (CLEAN/CATCH) PRODUCT DEVELOPMENT/MICRO I F IND.on 06-28-2021 Bilirubin Ql (U) Negative Normal NEGATIVE [facility] Comment on above: Performed By: #### U ACSIND, UMICRO #### [facility] [address] [place] [address] Dr. Jose Elias Strong Clarity (U) CLEAR Normal CLEAR The [facility] Comment on above: Performed By: #### U ACSIND, UMICRO #### [facility] [address] [address] [address] Jose Elias Strong Color (U) LT. YELLOW Normal YELLOW The [facility] Comment on above: Performed By: #### U ACSIND, UMICRO #### [facility] [address] [place] [address] Dr. Jose Elias Strong Glucose Ql (U) Negative Normal NEGATIVE The [facility] Comment on above: Performed By: #### U ACSIND, UMICRO #### [facility] [address] [place] [address] Dr. Jose Elias Strong Hemoglobin Ql (U) Negative Normal NEGATIVE [facility] Comment on above: Performed By: #### U ACSIND, UMICRO #### [facility] [address] [place] [address] Dr. Jose Elias Strong Ketones Ql (U) Negative Normal NEGATIVE The [facility] Comment on above: Performed By: #### U ACSIND, UMICRO #### [facility] [address] [address] [address] Jose Elias Strong LEUKOCYTES TRACE Abnormal NEGATIVE The [facility] Comment on above: Performed By: #### U ACSIND, UMICRO #### [facility] [address] [place] [address] Dr. Jose Elias Strong Nitrite Ql (U) Negative Normal NEGATIVE The [facility] Comment on above: Performed By: #### U ACSIND, UMICRO #### [facility] [address] [place] [address] Dr. Jose Elias Strong pH (U) 6.5 [pH] Normal 5-9 The [facility] Comment on above: Performed By: #### U ACSIND, UMICRO #### [facility] [address] [address] [address] Jose Elias Strong SPEC GRAVITY 1.015 Normal 1.005-<=1.025 [facility] Comment on above: Performed By: #### U ACSIND, UMICRO #### [facility] [address] [address] [address] Jose Elias Strong UA PROTEIN Negative Normal NEGATIVE/ TRACE The [facility] Comment on above: Performed By: #### U ACSIND, UMICRO #### [facility] [address] [address] [address] Jose Elias Strong UR MICRO IND INDICATED Normal The [facility] Comment on above: Performed By: #### U ACSIND, UMICRO #### [facility] [address] [place] [address] Dr. Jose Elias Strong Urobilinogen Qn (U) 0.2 {Mago'U}/dL Normal 0.2 - 1. 0 [facility] Comment on above: Performed By: #### U ACSIND, UMICRO #### [facility] [address] [place] [address] Dr. Jose Elias Strong URINE MICROSCOPIC ONLYon AMORPHOUS CRYSTALS FEW Normal The [facility] Comment on above: Performed By: #### U ACSIND, UMICRO #### [facility] [address] [place] [address] Dr. Jose Elias Strong BACTERIA TRACE Abnormal NONE SEEN The [facility] Comment on above: Performed By: #### U ACSIND, UMICRO #### [facility] [address] [place] [address] Dr. Jose Elias Strong Bacteria identified Cx Nom (U) NOT INDICATED Normal The [facility] Comment on above: Performed By: #### U ACSIND, UMICRO #### [facility] [address] [address] [address] Jose Elias Strong CAST NONE SEEN Normal NONE SEEN [facility] Comment on above: Performed By: #### U ACSIND, UMICRO #### [facility] [address] [address] [address] Jose Elias Strong Crystals LM Nom (Urine sed) SEEN Abnormal NONE SEEN The [facility] Comment on above: Performed By: #### U ACSIND, UMICRO #### [facility] [address] [place] [address] Dr. Jose Elias Strong Epithelial cells LM Ql (Urine sed) RARE Normal NONE SEEN /RARE The [facility] Comment on above: Performed By: #### U ACSIND, UMICRO #### [facility] [address] [place] [address] Dr. Jose Elias Strong MUCOUS TRACE Abnormal NONE SEEN The [facility] Comment on above: Performed By: #### U ACSIND, UMICRO #### [facility] [address] [place] [address] Dr. Jose Elias Strong RBC 0-2 Normal 0-2 [facility] Comment on above: Performed By: #### U ACSMICHAEL, UMICRO #### [facility] [address] [place] [address] Dr. Jose Elias Strong WBC 2-5 Abnormal NONE SEEN The [facility] Comment on above: Performed By: #### U ACSMICHAEL, UMICRO #### [facility] [address] [place] [address] Dr. Jose Elias Strong CBC AUTO DIFFon 06-19-2021 BASO # 0.0 103/ul Normal 0.0-0.1 [facility] Comment on above: Performed By: #### C BC #### [facility] [address] [place] [address] Dr. Jose Elias Strong Basophils/100 WBC (Bld) 0.3 % Normal 0.2-2.0 The [facility] Comment on above: Performed By: #### C BC #### [facility] [address] [place] [address] Dr. Jose Elias Strong EO # 0.2 103/ul Normal 0.0-0.7 The [facility] Comment on above: Performed By: #### C BC #### [facility] [address] [place] [address] Dr. Jose Elias Strong Eosinophils/100 WBC (Bld) 2.0 % Normal 0.9-7.0 The [facility] Comment on above: Performed By: #### C BC #### [facility] [address] [place] [address] Dr. Jose Elias Strong Erythrocyte distribution width (RBC) [Ratio] 13.6 % Normal 11.0-15.0 [facility] Comment on above: Performed By: #### C BC #### [facility] [address] [place] [address] Dr. Jose Elias Strong Hematocrit (Bld) [Volume fraction] 29.4 % Critically low 36.0-48.0 [facility] Comment on above: Performed By: #### C BC #### [facility] [address] [place] [address] Dr. Jose Elias Strong Hemoglobin (Bld) [Mass/Vol] 9.5 g/dL Critically low 12.0-16.0 [facility] Comment on above: Performed By: #### C BC #### [facility] [address] [place] [address] Dr. Jose Elias Strong IG # 0.14 10e3/ul Critically high 0.00-0.03 [facility] Comment on above: Performed By: #### C BC #### [facility] [address] [place] [address] Dr. Jose Elias Strong IG % 1.4 % Critically high 0.0-0.5 [facility] Comment on above: Performed By: #### C BC #### [facility] [address] [place] [address] Dr. Jose Elias Strong LYMPH # 1.6 103/ul Normal 1.2-3.8 [facility] Comment on above: Performed By: #### C BC #### [facility] [address] [place] [address] Dr. Jose Elias Strong Lymphocytes/100 WBC (Bld) 15.5 % Critically low 20.5-60.0 [facility] Comment on above: Performed By: #### C BC #### [facility] [address] [place] [address] Dr. Jose Elias Strong MANUAL DIFF REQ NO Normal [facility] Comment on above: Performed By: #### C BC #### [facility] [address] [address] [address] Jose Eilas Strong MCH (RBC) [Entitic mass] 26.8 pg Normal 26.7-34.0 [facility] Comment on above: Performed By: #### C BC #### [facility] [address] [address] [address] Jose Elias Strong MCHC (RBC) [Mass/Vol] 32.3 g/dL Normal 29.9-35.2 [facility] Comment on above: Performed By: #### C BC #### [facility] [address] [address] [address] Jose Elias Strong MCV (RBC) [Entitic vol] 82.8 fL Normal 81.0-99.0 [facility] Comment on above: Performed By: #### C BC #### [facility] [address] [place] [address] Dr. Jose Elias Strong MONO # 1.2 103/ul Critically high 0.3-0.8 [facility] Comment on above: Performed By: #### C BC #### [facility] [address] [address] [address] Jose Elias Strong Monocytes/100 WBC (Bld) 12.2 % Critically high 1.7-12.0 [facility] Comment on above: Performed By: #### C BC #### [facility] [address] [address] [address] Jose Elias Strong NEUT # 7.0 103/ul Critically high 1.4-6.5 [facility] Comment on above: Performed By: #### C BC #### [facility] [address] [address] [address] Jose Elias Strong Neutrophils/100 WBC (Bld) 68.6 % Normal 43.0-75.0 [facility] Comment on above: Performed By: #### C BC #### [facility] [address] [place] [address] Dr. Jose Elias Strong Platelet mean volume (Bld) [Entitic vol] 9.1 fL Critically low 9.5-13.5 [facility] Comment on above: Performed By: #### C BC #### [facility] [address] [address] [address] Jose Elias Strong PLT 309 103/ul Normal 150-450 [facility] Comment on above: Performed By: #### C BC #### [facility] [address] [address] [address] Jose Elias Strong RBC 3.55 106/ul Critically low 4.20-5.40 [facility] Comment on above: Performed By: #### C BC #### [facility] [address] [address] [address] Jose Elias Strong WBC 10.1 103/ul Normal 4.0-11.0 [facility] Comment on above: Performed By: #### C BC #### [facility] [address] [address] [address] Jose Elias Strong GLYCOHEMOGLOBIN A1Con 2021 ADA RECOMMENDATION ADA THERAPEUTIC TARGET 6.0 - 7.0 ACTION SUGGESTED > 7.0 Normal [facility] Comment on above: Performed By: #### T NS #### [facility] [address] [address] [address] Jose Elias Storng Glucose [Mass/Vol] 97 mg/dL Normal [facility] Comment on above: Performed By: #### T NS #### [facility] [address] [address] [address] Jose Elias Strong HbA1c (Bld) [Mass fraction] 5.0 % Normal <=6.0 [facility] Comment on above: Performed By: #### T NS #### [facility] [address] [address] [address] Jose Elias Strong Consenton 10-24-2020 Consent [id number] .00CD:127 Normal [facility] In office Testingon 10-25-19 In office Testing [id number] 1.00CD:127 Normal [facility] Registrationon 10-24-2020 Registration [id number] .00CD:127 [facility] Registration [id number] .00CD:127 [facility] Vital Signs Date Time Vital Sign Value Performing Clinician Leslie garrett 06-12-2023 11:02-0500 Body mass index (BMI) [Ratio] 30.26 kg/m2 Mary Venkat DO Work Phone: [facility] 06-12-2023 11:02-050 Body weight 77.47 kg Mary Venkat DO Work Phone: [facility] 06-12-2023 11:02-0500 Diastolic blood pressure 70 mm[Hg] Mary Venkat DO Work Phone: [facility] 06-12-2023 11:02-0500 Systolic blood pressure 118 mm[Hg] Mary Venkat DO Work Phone: [facility] Encounters Encounter Date Encounter Type Care Provider Facility Start: 06-24-2023 End: 06-24-2023 ambulatory ERIKA ROCIO Not Available Start: 06-12-2023 End: 06-12-2023 ambulatory MARY VENKAT Not Available Start: 06-12-2023 End: 06-12-2023 Office outpatient visit 15 minutes Mary Venkat DO Work Phone: [facility] Comment on above: Third trimester preg jun Start: 05-29-2023 End: 05-29-2023 ambulatory ERIKA ROCIO Not Available Start: 04-23-2023 End: 04-23-2023 ambulatory MARY VENKAT Not Available Start: 03-19-2023 End: 03-19-2023 ambulatory MARY VENKAT Not Available Start: 12-10-2022 ambulatory ALEXANDER Lucia [facility] Start: 11-19-2022 End: 11-19-2022 ambulatory YOMAIRA LAWLER [facility] Start: 10-28-2022 End: 10-29-2022 ambulatory ALEXANDER [facility] Start: 08-29-2022 ambulatory YOMAIRA LAWLER [facility] Start: 08-19-2022 End: 08-19-2022 Emergency department patient visit YOMAIRA LAWLER [facility] Start: 08-08-2022 End: 08-08-2022 Emergency department patient visit JERRY WALLS [facility] Start: 06-04-2022 End: 06-04-[address] [...] Routine [facility] [address] [place] [id number] Erika Keith PA [address] [place] [address] [facility] Payers Date Payer Category Payer Medicaid [id number] 2022 Medicaid [employer] [place] [id number] 2022-Present [address] [place] [address] [id number] 1995 Unknown [id number] [id number]3 1995 Unknown [id number] 2.16.840.1.573557.3.579.2.593 1995 Unknown [id number] 2.16.840.1.395926.3.579.2.593 1995 Unknown [id number] 2.16.840.1.831169.3.579.2.593 1995 Unknown [id number] 2.16.840.1.968962.3.579.2.593 1995 Unknown [id number] 2.16.840.1.598847.3.579.2.593 1995 Unknown [id number] 2.16.840.1.640435.3.579.2.593 1995 Unknown [id number] 2.16.840.1.010212.3.579.2.593 1995 Unknown [id number] 2.16.840.1.207051.3.579.2.121 1995 Unknown [id number] 2.16.840.1.621803.3.579.2.121 1995 Unknown [id number] 2.16.840.1.797397.3.579.2.121 1995 Unknown [id number] 2.16.840.1.733879.3.579.2.1213 1995 Unknown [id number] 2.16.840.1.171082.3.579.2.1212 1995 Unknown [id number] 2.16.840.1.428770.3.579.2.1212 1995 Unknown [id number] 2.16.840.1.543956.3.579.2.1258 1995 Unknown [id number] 2.16.840.1.718974.3.579.2.1258 1995 Unknown [id number] 2.16.840.1.426086.3.579.2.1258 1995 Unknown [id number] 2.16.840.1.961190.3.579.2.1258 1995 Unknown [id number] 2.16.840.1.235246.3.579.2.9 1959 Unknown [id number] Social History Date Type Detail Facility Start: 10-21-2022 Tobacco smoking stat [facility] Never smoked tobacco [facility] Start: 10-21-2022 [...] Ambulatory Problems Diagnosis Date Noted Acute asthma ([facility]) 12/03/2022 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 12/03/2022 Neck swelling 08/19/2022 Schizoaffective disorder ([facility]) 12/03/2022 Resolved Ambulatory Problems Diagnosis Date Noted No Resolved Ambulatory Problems Past Medical History: Diagnosis Date BMI 24.0-24.9, adult Depot contraception Encounter for IUD insertion Encounter for Papanicolaou cervical smear to confirm findings of recent normal smear following initial abnormal smear Intrauterine device surveillance Schizo-affective psychosis ([facility]) Urine test negative [...] nursing note reviewed. Exam conducted with a powder core tester present. Vitals: Estimated body mass index is [...] section and content) DATE CREATED AUTHOR 10/25/2020 [facility] DATE CREATED AUTHOR AUTHOR'S ORGANIZ ATION 06/11/2022 [facility] DATE CREATED AUTHOR AUTHOR'S ORGANIZ ATION 12/16/2022 [facility] DATE CREATED AUTHOR AUTHOR'S ORGANIZ ATION 07/01/2023 [facility] EPIC Reason for Visit (unrecogniz ed [...] PRIMARY CLINICAL RECORDS. [facility] [employer] [facility]. provides no warranty or guarantee of the accuracy or completeness of information in this document.
== END 2023-07-08 12:00 | disposition home or self-care (01) ==
LOC: US 08:11 → FBC 11:25
PROVIDERS: PCP Family Medicine; Visit Provider Obstetrics & Gynecology
DX: O36.63X0 Maternal care for excessive fetal growth, third trimester, not applicable or unspecified (principal); Z3A.00 Weeks of gestation of pregnancy not specified

== ENCOUNTER 2023-07-08 10:03 | Outpatient (OUT) | payer OTHER, SELFPAY ==
--- NOTE | 2023-07-08 10:06 | US_ITS ---
[address] [address] Patient Name: KRISSY LOPEZ MRN: [id number] date: 1995 Sex: F Assigned Patient Location: [facility] Current Patient Location: [facility] Accession/Order Number: [id number] Exam Date: 07/08/2023 10:07 Report Date: 07/08/2023 10:53 At the request of: MARY MARIE Procedure: US OB growth EXAMINATION: US OB growth HISTORY: LGA COMPARISON: 06/12/2023 FINDINGS: Heart Rate: 147.0 bpm Amniotic Fluid Volume: 24.7 cm , polyhydramnios Number: 1.0 Position: Transverse lie Maximum Vertical Pocket: 11.3 cm cm 1.6 cm cm 5.1 cm cm 6.7 cm cm BIOMETRY: BPD: 9.5 cm cm; 38 weeks 6 days; >97% HC: 33.9 cmcm; 39 weeks 0 days , 86% AC: 36.5 cm cm; 40 weeks 3 days, >97% FL: 7.2 cm cm; 37 weeks 0 days; 69.0 % % EFW: 3764.8 grams, 8 lbs. 5 oz., >97% FL/AC: 19.8 FL/BPD: 76.0 HC/AC: 0.9 GESTATIONAL AGE: Age by EDC: 36 weeks 1 days ADEN by EDC: 08/04/2023 Age by US: 38 weeks 6 days ADEN by US: 07/16/2023 US/US OB growth IMPRESSION: Large for gestational age Polyhydramnios Electronically authenticated by: AHMMAD FRAZIER Date: 07/08/2023 10:53
--- OUTSIDE RECORDS SUMMARY | 2023-07-08 10:07 | XMS_ITS | CCD ---
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 Name Role Phone VENKAT, DR HERNANDEZ Admitting [...] Translations: [LATEX] Drug allergy (disorder) 6 [facility] (2 sources) Leucine; Translations: [NICKEL] Drug Allergy 7 [facility] (2 sources) Penicillins; Translations: [PENICILLINS] Drug allergy (disorder) 7 [facility] (1 source) Shellfish Drug allergy (disorder) 7 [facility] (2 sources) Iodine; Translations: [IODINE] Drug Allergy 3 [facility] (1 source) SHELLFISH CONTAINING PRODUCTS; Translations: [SHELLFISH CONTAINING PRODUCTS] Propensity to adverse reactions to drug (disorder) 3 [facility] (1 source) VENOM-HONEY BEE; Translations: [VENOM-HONEY BEE] Propensity to adverse reactions to drug (disorder) 3 [facility] (1 source) Amoxicillin Drug Allergy 3 Unknown [facility] (1 source) Bee pollen Allergy to substance 3 Unknown [facility] (1 source) Honey bee venom Propensity to adverse reactions [address] [facility] (1 source) Latex Allergy to substance 3 Unknown [facility] (1 source) nickel sulfate Drug Allergy [address] [facility] (1 source) Penicillin G Drug Allergy 3 Unknown [facility] (1 source) Shellfish-Derive d Products Drug Allergy 3 Unknown [facility] Medications Current Medications Medication Drug Class(es) Dates Sig (Normalized) Sig (Original) [id number] 200 actuat albuterol 0.09 mg/actuat metered dose [...] sexual mode of transmission complicating childbirth; Translations: [[facility] INF SEXL TRNSMS COMP CHILDBIRTH] Onset: 08-19-2021 Episodic Other complications of ; puerperium affecting management of mother (1 source) Other mental disorders complicating childbirth; Translations: [[facility] MENTAL D/O COMP CHILDBIRTH] Onset: 08-30-2021 Episodic Other complications of (4 sources) Other specified related conditions, third trimester; Translations: [[facility] SPEC PREG RELATED COND 3RD TRI] [...] UA Negative Negative - 4(70) +++ mg/dL [facility] Blood, UA Negative Negative - 50 Yovany/mcL [facility] Clarity, UA Clear [facility] Color, UA Yellow [facility] Glucose, UA Negative Negative - 2000(110) ++++ mg/dL [facility] Interpretation and review of laboratory results Abnormal [facility] Ketones, UA Negative Negative - 160(16) ++++ mg/dL [facility] Leukocytes, UA Positive Negative - 500+++ Jamey/mcL [facility] Nitrite, UA Negative Negative - Positive [facility] pH, UA 5.5 5 - 9 [facility] Protein, UA Positive Negative - 2000(20) ++++ mg/dL [facility] Spec Grav, UA 1.020 1 - 1.03 [facility] Urobilinogen, UA 1.0 0.2 - 12 mg/dL [facility] HCG, Urineon 11-19-2022 Beta HCG ( test) Ql (U) Negative Normal [facility] Comment on above: Order Comment: The c alculated GFR uses the (IDMS)-traceable creatinine MDRD equation and is reported in mL/min/1.73 square meters. This formula is not recommended for use with individuals with unstable creatinine concentrations, extremes in muscle mass and/or body size, or alternative diets and may not be suitable for all patient populations. Testing performed at [facility], [address] [place] [address] 23681 Result Comment: Note : This test provides only a presumptive diagnosis for . If the HCG result is inconsistent with clinical evidence, results should be confirmed with an alternative method, such as a quantitative HCG. Basic Metabolic Profileon ANIO 11 mmol/L Low 12-20 [facility] Comment on above: Order Comment: Testi ng performed at [facility], [address] [place] [address] 24348 Calcium [Mass/Vol] 9.5 mg/dL Normal 8.4-10.2 [facility] Comment on above: Order Comment: Testi ng performed at [facility], [address] [place] [address] 57885 Chloride [Moles/Vol] 107 mmol/L Normal 98-107 [facility] Comment on above: Order Comment: Testi ng performed at [facility], [address] [place] [address] 32104 CO2 [Moles/Vol] 23.0 mmol/L Normal 22.0-30.0 [facility] Comment on above: Order Comment: Testi ng performed at [facility], [address] [place] [address] 85316 Creatinine [Mass/Vol] 0.7 mg/dL Normal 0.6-1.2 [facility] Comment on above: Order Comment: Testi ng performed at [facility], [address] [place] [address] 95704 Glucose [Mass/Vol] 118 mg/dL High 74-106 [facility] Comment on above: Order Comment: Testi ng performed at [facility], [address] [place] [address] 79975 Potassium [Moles/Vol] 4.1 mmol/L Normal 3.3-4.9 [facility] Comment on above: Order Comment: Testi ng performed at [facility], [address] [place] [address] 25154 Sodium [Moles/Vol] 137 mmol/L Normal 137-145 [facility] Comment on above: Order Comment: Testi ng performed at [facility], [address] [place] [address] 85613 Urea nitrogen [Mass/Vol] 14 mg/dL Normal 8-19 [facility] Comment on above: Order Comment: Testi ng performed at [facility], [address] [place] [address] 83144 CBC w/Auto Diffon 08-19-2022 Basophils (Bld) [#/Vol] 0.04 10*3/uL Normal 0.00-0.10 [facility] Comment on above: Order Comment: [...] is no longer indicated. Testing performed at [facility], [address] [place] [address] 80107 Eosinophils (Bld) [#/Vol] 0.05 10*3/uL Normal 0.00-0.40 [facility] Comment on above: Order Comment: [...] is no longer indicated. Testing performed at [facility], [address] [place] [address] 39526 Erythrocyte distribution width (RBC) [Ratio] 13.3 % Normal 11.7-14.4 [facility] Comment on above: Order Comment: [...] is no longer indicated. Testing performed at [facility], [address] [place] [address] 62600 Hematocrit (Bld) [Volume fraction] 36.1 % Normal 34.1-44.9 [facility] Comment on above: Order Comment: [...] no longer indicated. Testing performed at [facility], [address] [place] [address] 02141 Hemoglobin (Bld) [Mass/Vol] 12.0 g/dL Normal 11.2-15.7 [facility] Comment on above: Order Comment: [...] is no longer indicated. Testing performed at [facility], [address] [place] [address] 41458 IG % (B) 0.6 % High 0.0-0.4 [facility] Comment on above: Order Comment: [...] no longer indicated. Testing performed at [facility], [address] [place] [address] 23027 IG# (B) 0.14 10*3/uL High 0.00-0.00 [facility] Comment on above: Order Comment: [...] no longer indicated. Testing performed at [facility], [address] [place], [place] [phone] Lymphocytes (Bld) [#/Vol] 0.81 10*3/uL Low 1.20-3.70 [facility] Comment on above: Order Comment: [...] no longer indicated. Testing performed at [facility], [address] [place] [address] 12283 MCH (RBC) [Entitic mass] 28.5 pg Normal 25.6-32.2 [facility] Comment on above: Order Comment: [...] no longer indicated. Testing performed at [facility], [address] [place] [address] 97113 MCHC (RBC) [Mass/Vol] 33.2 g/dL Normal 32.2-35.5 [facility] Comment on above: Order Comment: [...] no longer indicated. Testing performed at [facility], [address] [place] [address] 48303 MCV (RBC) [Entitic vol] 85.7 fL Normal 79.4-94.8 [facility] Comment on above: Order Comment: [...] no longer indicated. Testing performed at [facility], [address] [place] [address] 46743 Monocytes (Bld) [#/Vol] 1.81 10*3/uL High 0.20-0.90 [facility] Comment on above: Order Comment: [...] is no longer indicated. Testing performed at [facility], [address] [place] [address] 25481 Neutrophils (Bld) [#/Vol] 20.04 10*3/uL High 1.60-6.10 [facility] Comment on above: Order Comment: [...] is no longer indicated. Testing performed at [facility], [address] [place] [address] 68089 NRBC % (B) 0.0 /100{WBC} Normal 0.0-0.2 [facility] Comment on above: Order Comment: [...] no longer indicated. Testing performed at [facility], [address] [place] [address] 33402 NRBC# (B) 0.00 10*3/uL Normal 0.00-0.00 [facility] Comment on above: Order Comment: [...] no longer indicated. Testing performed at [facility], [address] [place] [address] 27598 Platelet mean volume (Bld) [Entitic vol] 9.9 fL Normal 9.4-12.3 [facility] Comment on above: Order Comment: [...] no longer indicated. Testing performed at [facility], [address] [place] [address] 22868 Platelets (Bld) [#/Vol] 267 10*3/uL Normal 182-369 [facility] Comment on above: Order Comment: [...] is no longer indicated. Testing performed at [facility], [address] [place] [address] 54416 RBC (Bld) [#/Vol] 4.21 10*6/uL Normal 3.93-5.22 [facility] Comment on above: Order Comment: [...] no longer indicated. Testing performed at [facility], [address] [place] [address] 87232 RDW-SD (B) 41.1 fL Normal 36.4-46.3 [facility] Comment on above: Order Comment: [...] is no longer indicated. Testing performed at [facility], [address] [place] [address] 36358 WBC (Bld) [#/Vol] 22.9 10*3/uL High 4.0-10.0 [facility] Comment on above: Order Comment: [...] is no longer indicated. Testing performed at [facility], [address] [place] [address] NECK WITHOUT CONTRASTon 0 08-19-2022 CT [...] Salinas MD On: 08/19/2022 1:25 PM Normal [facility] EST Glomerular Filtration Ra jude 08-19-2022 EAGFR (B) >60 Normal >60 [facility] Comment on above: Order Comment: The c alculated GFR uses the (IDMS)-traceable creatinine MDRD equation and is reported in mL/min/1.73 square meters. This formula is not recommended for use with individuals with unstable creatinine concentrations, extremes in muscle mass and/or body size, or alternative diets and may not be suitable for all patient populations. Testing performed at [facility], [address] [place] [address] 45680 Result Comment: The reported eGFR is based on a non- patient, for Americans multiply the result by 1.212. HCG, Serumon 08-19-2022 HCGS Negative Normal [facility] Comment on above: Order Comment: Testi ng performed at [facility], [address] [place] [address] 39654 Result Comment: Note : This test provides only a presumptive diagnosis for . If the HCG result is inconsistent with clinical evidence, results should be confirmed with an alternative method, such as a quantitative HCG. Man Diffon 08-19-2022 Eos, Diff 2 % Normal 0-6 [facility] Comment on above: Order Comment: Testi ng performed at [facility], [address] [place] [address] 68483 Lymphocytes/100 WBC (Bld) 3 % Low 20-53 [facility] Comment on above: Order Comment: Testi ng performed at [facility], [address] [place] [address] 50440 Frederick, Diff 6 % Normal 5-12 [facility] Comment on above: Order Comment: Testi ng performed at [facility], [address] [place] [address] 32418 Segs. Diff 89 % High 34-70 [facility] Comment on above: Order Comment: Testi ng performed at [facility], [facility] [place] [address] Slide Scan Normal Normal Normal [facility] Comment on above: Order Comment: Testi ng performed at [facility], [address] [place] [address] Basic Metabolic Profileon ANIO 12 mmol/L Normal 12-20 [facility] Comment on above: Order Comment: Testi ng performed at [facility], [facility] [place] [address] Calcium [Mass/Vol] 9.1 mg/dL Normal 8.4-10.2 [facility] Comment on above: Order Comment: [facility], [address] [place] [address] Chloride [Moles/Vol] 106 mmol/L Normal 98-107 [facility] Comment on above: Order Comment: [facility], [address] [place] [address] CO2 [Moles/Vol] 27.0 mmol/L Normal 22.0-30.0 [facility] Comment on above: Order Comment: Testi ng performed at [facility], [facility] [place] [address] Creatinine [Mass/Vol] 0.6 mg/dL Normal 0.6-1.2 [facility] Comment on above: Order Comment: Testi ng performed at [facility], [facility] [place] [address] Glucose [Mass/Vol] 95 mg/dL Normal 74-106 [facility] Comment on above: Order Comment: Testi ng performed at [facility], [address] [place] [address] Potassium [Moles/Vol] 4.1 mmol/L Normal 3.3-4.9 [facility] Comment on above: Order Comment: Testi ng performed at [facility], [address] [place] [address] Sodium [Moles/Vol] 141 mmol/L Normal 137-145 [facility] Comment on above: Order Comment: Testi ng performed at [facility], [facility] [place] [address] Urea nitrogen [Mass/Vol] 9 mg/dL Normal 8-19 [facility] Comment on above: Order Comment: Testi ng performed at [facility], [address] [place] [address] CBC w/Auto Diffon 08-08-2022 Basophils (Bld) [#/Vol] 0.04 10*3/uL Normal 0.00-0.10 [facility] Comment on above: Order Comment: [...] is no longer indicated. Testing performed at [facility], [address] [place] [address] 32892 Basophils/100 WBC (Bld) 0.4 % Normal 0.1-1.2 [facility] Comment on above: Order Comment: [...] no longer indicated. Testing performed at [facility], [address] [place] [address] 21399 Eosinophils (Bld) [#/Vol] 0.21 10*3/uL Normal 0.00-0.40 [facility] Comment on above: Order Comment: [...] no longer indicated. Testing performed at [facility], [address] [place] [address] 12292 Eosinophils/100 WBC (Bld) 2.1 % Normal 0.7-5.8 [facility] Comment on above: Order Comment: [...] is no longer indicated. Testing performed at [facility], [address] [place] [address] 27465 Erythrocyte distribution width (RBC) [Ratio] 12.9 % Normal 11.7-14.4 [facility] Comment on above: Order Comment: [...] no longer indicated. Testing performed at [facility], [address] [place] [address] Hematocrit (Bld) [Volume fraction] 35.4 % Normal 34.1-44.9 [facility] Comment on above: Order Comment: [...] no longer indicated. Testing performed at [facility], [address] [place], [place] [phone] Hemoglobin (Bld) [Mass/Vol] 11.2 g/dL Normal 11.2-15.7 [facility] Comment on above: Order Comment: [...] no longer indicated. Testing performed at [facility], [address] [place] [address] 27228 IG % (B) 0.4 % Normal 0.0-0.4 [facility] Comment on above: Order Comment: [...] no longer indicated. Testing performed at [facility], [address] [place] [address] 48020 IG# (B) 0.04 10*3/uL High 0.00-0.00 [facility] Comment on above: Order Comment: [...] no longer indicated. Testing performed at [facility], [address] [place] [address] 03610 Lymphocytes (Bld) [#/Vol] 1.60 10*3/uL Normal 1.20-3.70 [facility] Comment on above: Order Comment: [...] no longer indicated. Testing performed at [facility], [address] [place] [address] 71930 Lymphocytes/100 WBC (Bld) 16.3 % Low 19.3-51.7 [facility] Comment on above: Order Comment: [...] is no longer indicated. Testing performed at [facility], [address] [place] [address] 91979 MCH (RBC) [Entitic mass] 27.7 pg Normal 25.6-32.2 [facility] Comment on above: Order Comment: [...] is no longer indicated. Testing performed at [facility], [address] [place] [address] 27776 MCHC (RBC) [Mass/Vol] 31.6 g/dL Low 32.2-35.5 [facility] Comment on above: Order Comment: [...] no longer indicated. Testing performed at [facility], [address] [place] [address] 92676 MCV (RBC) [Entitic vol] 87.4 fL Normal 79.4-94.8 [facility] Comment on above: Order Comment: [...] no longer indicated. Testing performed at [facility], [address] [place] [address] 69660 Monocytes (Bld) [#/Vol] 0.88 10*3/uL Normal 0.20-0.90 [facility] Comment on above: Order Comment: [...] no longer indicated. Testing performed at [facility], [address] [place] [address] 80619 Monocytes/100 WBC (Bld) 8.9 % Normal 4.7-12.5 [facility] Comment on above: Order Comment: [...] is no longer indicated. Testing performed at [facility], [address] [place] [address] 29501 Neutrophils (Bld) [#/Vol] 7.07 10*3/uL High 1.60-6.10 [facility] Comment on above: Order Comment: [...] no longer indicated. Testing performed at [facility], [address] [place] [address] 96431 Neutrophils/100 WBC (Bld) 71.9 % High 34.0-71.1 [facility] Comment on above: Order Comment: [...] no longer indicated. Testing performed at [facility], [address] [place] [address] 82510 NRBC % (B) 0.0 /100{WBC} Normal 0.0-0.2 [facility] Comment on above: Order Comment: [...] is no longer indicated. Testing performed at [facility], [address] [place] [address] 01158 NRBC# (B) 0.00 10*3/uL Normal 0.00-0.00 [facility] Comment on above: Order Comment: [...] no longer indicated. Testing performed at [facility], [address] [place] [address] 05036 Platelet mean volume (Bld) [Entitic vol] 9.2 fL Low 9.4-12.3 [facility] Comment on above: Order Comment: [...] no longer indicated. Testing performed at [facility], [address] [place] [address] 49504 Platelets (Bld) [#/Vol] 315 10*3/uL Normal 182-369 [facility] Comment on above: Order Comment: [...] no longer indicated. Testing performed at [facility], [address] [place] [address] 16150 RBC (Bld) [#/Vol] 4.05 10*6/uL Normal 3.93-5.22 [facility] Comment on above: Order Comment: [...] no longer indicated. Testing performed at [facility], [address] [place] [address] 58386 RDW-SD (B) 41.0 fL Normal 36.4-46.3 [facility] Comment on above: Order Comment: [...] no longer indicated. Testing performed at [facility], [address] [place] [address] 31234 WBC (Bld) [#/Vol] 9.8 10*3/uL Normal 4.0-10.0 [facility] Comment on above: Order Comment: [...] no longer indicated. Testing performed at [facility], [address] [place] [address] NECK WITHOUT CONTRASTon 0 08-08-2022 CT [...] Schultz MD On: 08/08/2022 4:07 PM Normal [facility] EST Glomerular Filtration Ra jude 08-08-2022 EAGFR (B) >60 Normal >60 [facility] Comment on above: Order Comment: The c alculated GFR uses the (IDMS)-traceable creatinine MDRD equation and is reported in mL/min/1.73 square meters. This formula is not recommended for use with individuals with unstable creatinine concentrations, extremes in muscle mass and/or body size, or alternative diets and may not be suitable for all patient populations. Testing performed at [facility], [address] [place] [address] 38891 Result Comment: The reported eGFR is based on a non- patient, for Americans multiply the result by 1.212. Pap IG, rfx Aptima HPV, rfx 16/18,45on 06-11-2022 . . Normal [facility] Comment on above: Result Comment: Perf ormed at: WB Performed By: #### P APHR2A #### [facility] [address] [place], [place] [address] Dr. [facility] DIAGNOSIS: Comment Normal [facility] Comment on above: Result Comment: NEGA TIVE FOR INTRAEPITHELIAL LESION OR MALIGNANCY. Performed at: WB Performed By: #### P APHR2A #### [facility] [address] [place] [address] Dr. [facility] HPV Aptima Negative Normal Negative [facility] Comment on above: Result Comment: This nucleic acid amplification test detects fourteen high-risk HPV types (16,18,31,33,35,39,45,51,52,56,58,59,66,68) without differentiation. Performed at: =G Performed By: #### P APHR2A #### [facility] [address] [place] [address] [address] [facility] HPV Genotype Reflex Comment Normal [facility] Comment on above: Result Comment: Crit eria not met, HPV Genotype not performed. Performed at: WB Performed By: #### P APHR2A #### [facility] [address] [place] [address] Dr. [facility] Methodology: Comment Normal [facility] Comment on above: Result Comment: This liquid based ThinPrep(R) pap test was screened with the use of an image guided system. Performed at: WB Performed By: #### P APHR2A #### [facility] [address] [place] [address] Dr. [facility] Note: Comment Normal [facility] Comment [...] WB Performed By: #### P APHR2A #### [facility] [address] [place] [address] Dr. Jose [facility] Performed by: Comment Normal [facility] Comment on above: Result Comment: Koffi Hutchinson, Dining Room Maid (ASCP) Performed at: WB Performed By: #### P APHR2A #### [facility] [address] [place] [address] Dr. [facility] Specimen adequacy: Comment Normal [facility] Comment on above: Result Comment: Sati sfactory for evaluation. Endocervical and/or squamous metaplastic cells (endocervical component) are present. Performed at: WB Performed By: #### P APHR2A #### [facility] [address] [place] [address] Dr. Jose [facility] PAP ACOG PANEL 2: 21 to 29on 11-20-2021 . . Normal [facility] Comment on above: Performed By: #### [id number] #### [facility] [address] [place] [address] Dr. Jose Elias Strong Age Gdln ACOG Testing - [facility] Comment on above: Performed By: #### [id number] #### [facility] [address] [place] [address] Dr. Jose Elias Strong DIAGNOSIS: Comment [facility] Comment on above: Result Comment: NEGA TIVE FOR INTRAEPITHELIAL LESION OR MALIGNANCY. REACTIVE CELLULAR CHANGES AND/OR REPAIR ARE PRESENT. Performed By: #### [id number] #### [facility] [address] [place] [address] Dr. Jose Elias Strong Electronically signed by: Comment Normal [facility] Comment on above: Result Comment: Melinda Patel MD, Pathologist Performed By: #### [id number] #### [facility] [address] [place] [address] Dr. Jose Elias Strong Methodology: Comment [facility] Comment on above: Result Comment: This liquid based ThinPrep(R) pap test was screened with the use of an image guided system. Performed By: #### [id number] #### [facility] [address] [place] [address] Dr. Jose Elias Strong Note: Comment [facility] Comment on above: Result Comment: The Pap smear is a screening test designed to aid in the detection of premalignant and malignant conditions of the uterine cervix. It is not a diagnostic procedure and should not be used as the sole means of detecting cervical cancer. Both false-positive and false-negative reports do occur. . Performed By: #### [id number] #### [facility] [address] [place] [address] Dr. Jose Elias Strong Performed by: Comment Normal [facility] Comment on above: Result Comment: Bruc e Den Romero, Dining Room Maid (ASCP) Performed By: #### [id number] #### [facility] [address] [place] [address] Dr. Jose Elias Strong Reflex Criteria: Comment Normal [facility] Comment on above: Result Comment: The HPV DNA reflex criteria were not met with this specimen result therefore, no HPV testing was performed. . Performed By: #### [id number] #### [facility] [address] [place] [address] Dr. Jose Elias Strong Specimen adequacy: Comment Normal [facility] Comment on above: Result Comment: Sati sfactory for evaluation. Endocervical and/or squamous metaplastic cells (endocervical component) are present. Performed By: #### [id number] #### [facility] [address] [place] [address] Dr. Jose Elias Strong CBC W MANUAL DIFFon 08-21-19 22 ANISOCYTOSIS 1+ Normal [facility] Comment on above: Performed By: #### T NS #### [facility] [address] [place] [address] Dr. Jose Elias Strong ATYPICAL LYMPH # Normal [facility] Comment on above: Performed By: #### T NS #### [facility] [address] [place] [address] Dr. Jose Elias Strong ATYPICAL LYMPH % Normal [facility] Comment on above: Performed By: #### T NS #### [facility] [address] [place] [address] Dr. Jose Elias Strong BAND # 0.2 103/ul Normal 0.0-0.3 [facility] Comment on above: Performed By: #### T NS #### [facility] [address] [place] [address] Dr. Jose Elias Strong BAND % 1 % Normal 0-5 [facility] Comment on above: Performed By: #### T NS #### [facility] [address] [place] [address] Dr. Jose Elias Strong BASOM # 0.00 103/ul Normal 0.00-0.10 [facility] Comment on above: Performed By: #### T NS #### [facility] [address] [place] [address] Dr. Jose Elias Strong BASOM % 0.0 % Critically low 0.2-2.0 [facility] Comment on above: Performed By: #### T NS #### [facility] [address] [place] [address] Dr. Jose Elias Strong BLAST # Normal [facility] Comment on above: Performed By: #### T NS #### [facility] [address] [address] [address] Jose Elias Strong BLAST % Normal [facility] Comment on above: Performed By: #### T NS #### [facility] [address] [place] [address] Dr. Jose Elias Strong CORRECTED WBC Normal 4.0-11.0 [facility] Comment on above: Performed By: #### T NS #### [facility] [address] [place] [address] Dr. Jose Elias Strong EOS # 0.00 103/ul Normal 0.00-0.70 [facility] Comment on above: Performed By: #### T NS #### [facility] [address] [place] [address] Dr. Jose Elias Strong EOS% 0.0 % Critically low 0.9-7.0 [facility] Comment on above: Performed By: #### T NS #### [facility] [address] [place] [address] Dr. Jose Elias Strong HCT 27.5 % Critically low 36.0-48.0 [facility] Comment on above: Performed By: #### T NS #### [facility] [address] [place] [address] Dr. Jose Elias Strong HGB 8.1 g/dl Critically low 12.0-16.0 [facility] Comment on above: Performed By: #### T NS #### [facility] [address] [place] [address] Dr. Jose Elias Strong LYMPHM # 1.62 103/ul Normal 1.20-3.80 [facility] Comment on above: Performed By: #### T NS #### [facility] [address] [address] [address] Jose Elias Strong LYMPHM% 9.0 % Critically low 20.5-60.0 [facility] Comment on above: Performed By: #### T NS #### [facility] [address] [address] [address] Jose Elias Strong MCH 22.2 pg Critically low 26.7-34.0 [facility] Comment on above: Performed By: #### T NS #### [facility] [address] [address] [address] Jose Elias Strong MCHC 29.5 g/dl Critically low 29.9-35.2 [facility] Comment on above: Performed By: #### T NS #### [facility] [address] [place] [address] Dr. Jose Elias Strong MCV 75.3 fL Critically low 81.0-99.0 [facility] Comment on above: Performed By: #### T NS #### [facility] [address] [place] [address] Dr. Jose Elias Strong METAMYELOCYTE # Normal [facility] Comment on above: Performed By: #### T NS #### [facility] [address] [place] [address] Dr. Jose Elias Strong METAMYELOCYTE % Normal [facility] Comment on above: Performed By: #### T NS #### [facility] [address] [address] [address] Jose Elias Strong MONOM# 1.62 103/ul Critically high 0.30-0.80 [facility] Comment on above: Performed By: #### T NS #### [facility] [address] [address] [address] Jose Elias Strong MONOM% 9.0 % Normal 1.7-12.0 [facility] Comment on above: Performed By: #### T NS #### [facility] [address] [place] [address] Dr. Jose Elias Strong MPV 9.6 fL Normal 9.5-13.5 [facility] Comment on above: Performed By: #### T NS #### [facility] [address] [address] [address] Jose Elias Strong MYELOCYTE # Normal [facility] Comment on above: Performed By: #### T NS #### [facility] [address] [address] [address] Jose Elias Strong MYELOCYTE % Normal [facility] Comment on above: Performed By: #### T NS #### [facility] [address] [address] [address] Jose Elias Strong NRBC Normal [facility] Comment on above: Performed By: #### T NS #### [facility] [address] [address] [address] Jose Elias Strong PLT 308 103/ul Normal 150-450 [facility] Comment on above: Performed By: #### T NS #### [facility] [address] [address] [address] Jose Elias Strong RBC 3.65 106/ul Critically low 4.20-5.40 [facility] Comment on above: Performed By: #### T NS #### [facility] [address] [address] [address] Jose Elias Strong RDW 15.7 % Critically high 11.0-15.0 [facility] Comment on above: Performed By: #### T NS #### [facility] [address] [address] [address] Jose Elias Strong SEG # 14.58 103/ul Critically high 1.40-6.50 [facility] Comment on above: Performed By: #### T NS #### [facility] [address] [address] [address] Jose Elias Strong SEG % 81.0 % Critically high 43.0-75.0 [facility] Comment on above: Performed By: #### T NS #### [facility] [address] [address] [address] Jose Elias Strong WBC 18.0 103/ul Critically high 4.0-11.0 [facility] Comment on above: Performed By: #### T NS #### [facility] [address] [address] [address] Jose Elias Strong DRUG SCREEN RAPID (URINE)on 08-20-2021 AMP Negative Normal NEGATIVE [facility] Comment on above: Performed By: #### T NS #### [facility] [address] [address] [address] Jose Elias Strong BAR Negative Normal NEGATIVE [facility] Comment on above: Performed By: #### T NS #### [facility] [address] [address] [address] Jose Elias Strong BUP Negative Normal NEGATIVE [facility] Comment on above: Performed By: #### T NS #### [facility] [address] [place] [address] Dr. Jose Elias Strong BZO Negative Normal NEGATIVE [facility] Comment on above: Performed By: #### T NS #### [facility] [address] [place] [address] Dr. Jose Elias Strong PAXTON Negative Normal NEGATIVE [facility] Comment on above: Performed By: #### T NS #### [facility] [address] [place] [address] Dr. Jose Elias Strong CUT-OFFS SEE BELOW Normal [facility] Comment on above: Result Comment: AMP [...] ng/mL Performed By: #### T NS #### [facility] [address] [place] [address] Dr. Jose Elias Strong DRUG CUT HEADER DRUG CLASS TEST SYSTEM CUT-OFF CONCENTRATIONS ARE FOLLOWS: Normal [facility] Comment on above: Performed By: #### T NS #### [facility] [address] [address] [address] Jose Elias Strong mAMP Negative Normal NEGATIVE [facility] Comment on above: Performed By: #### T NS #### [facility] [address] [address] [address] Jose Elias Strong MTD Negative Normal NEGATIVE [facility] Comment on above: Performed By: #### T NS #### [facility] [address] [address] [address] Jose Elias Strong OPI Negative Normal NEGATIVE [facility] Comment on above: Performed By: #### T NS #### [facility] [address] [place] [address] Dr. Jose Elias Strong OXY Negative Normal NEGATIVE [facility] Comment on above: Performed By: #### T NS #### [facility] [address] [place] [address] Dr. Jose Elias Strong PCP Negative Normal NEGATIVE [facility] Comment on above: Performed By: #### T NS #### [facility] [address] [address] [address] Jose Elias Strong PPX Negative Normal NEGATIVE [facility] Comment on above: Performed By: #### T NS #### [facility] [address] [place] [address] Dr. Jose Elias Strong TCA Negative Normal NEGATIVE [facility] Comment on above: Performed By: #### T NS #### [facility] [address] [place] [address] Dr. Jose Elias Strong THC Negative Normal NEGATIVE [facility] Comment on above: Performed By: #### T NS #### [facility] [address] [place] [address] Dr. Jose Elias Strong UA (CLEAN/CATCH) TYPEWRITER ASSEMBLY AND PARTS INSPECTOR/MICRO I F IND.on 08-20-2021 Bilirubin Ql (U) Negative Normal NEGATIVE [facility] Comment on above: Performed By: #### U MICRO, UACSIND #### [facility] [address] [place] [address] Dr. Jose Elias Strong Clarity (U) SL CLOUDY Abnormal CLEAR [facility] Comment on above: Performed By: #### U MICRO, UACSIND #### [facility] [address] [address] [address] Jose Elias Strong Color (U) RED Abnormal YELLOW [facility] Comment on above: Performed By: #### U MICRO, UACSIND #### [facility] [address] [address] [address] Jose Elias Strong Glucose Ql (U) Negative Normal NEGATIVE [facility] Comment on above: Performed By: #### U MICRO, UACSIND #### [facility] [address] [address] [address] Jose Elias Strong Hemoglobin Ql (U) LARGE Abnormal NEGATIVE [facility] Comment on above: Performed By: #### U MICRO, UACSIND #### [facility] [address] [place] [address] Dr. Jose Elias Strong Ketones Ql (U) 15 mg/dl Abnormal NEGATIVE [facility] Comment on above: Performed By: #### U MICRO, UACSIND #### [facility] [address] [place] [address] Dr. Jose Elias Strong LEUKOCYTES TRACE Abnormal NEGATIVE [facility] Comment on above: Performed By: #### U MICRO, UACSIND #### [facility] [address] [place] [address] Dr. Jose Elias Strong Nitrite Ql (U) Negative Normal NEGATIVE [facility] Comment on above: Performed By: #### U MICRO, UACSIND #### [facility] [address] [address] [address] Jose Elias Strong pH (U) 7.0 [pH] Normal 5-9 [facility] Comment on above: Performed By: #### U MICRO, UACSIND #### [facility] [address] [place] [address] Dr. Jose Elias Strong SPEC GRAVITY 1.020 Normal 1.005-<=1.025 [facility] Comment on above: Performed By: #### U MICRO, UACSIND #### [facility] [address] [place] [address] Dr. Jose Elias Strong UA PROTEIN 30 mg/dl Abnormal NEGATIVE/ TRACE [facility] Comment on above: Performed By: #### U MICRO, UACSIND #### [facility] [address] [place] [address] Dr. Jose Elias Strong UR MICRO IND INDICATED Normal [facility] Comment on above: Performed By: #### U MICRO, UACSIND #### [facility] [address] [place] [address] Dr. Jose Elias Strong Urobilinogen Qn (U) 0.2 {Mago'U}/dL Normal 0.2 - 1. 0 [facility] Comment on above: Performed By: #### U MICRO, UACSIND #### [facility] [address] [place] [address] Dr. Jose Elias Strong URINE MICROSCOPIC ONLYon BACTERIA NONE SEEN Normal NONE SEEN [facility] Comment on above: Performed By: #### U MICRO, UACSIND #### [facility] [address] [place] [address] Dr. Jose Elias Strong Bacteria identified Cx Nom (U) NOT INDICATED Normal [facility] Comment on above: Performed By: #### U MICRO, UACSIND #### [facility] [address] [place] [address] Dr. Jose Elias Strong CAST NONE SEEN Normal NONE SEEN [facility] Comment on above: Performed By: #### U MICRO, UACSIND #### [facility] [address] [place] [address] Dr. Jose Elias Strong Crystals LM Nom (Urine sed) NONE SEEN Normal NONE SEEN [facility] Comment on above: Performed By: #### U MICRO, UACSIND #### [facility] [address] [place] [address] Dr. Jose Elias Strong Epithelial cells LM Ql (Urine sed) NONE SEEN Normal NONE SEEN /RARE [facility] Comment on above: Performed By: #### U MICRO, UACSIND #### [facility] [address] [place] [address] Dr. Jose Elias Strong MUCOUS NONE SEEN Normal NONE SEEN [facility] Comment on above: Performed By: #### U MICRO, UACSIND #### [facility] [address] [address] [address] Jose Elias Strong RBC (U) [#/Vol] /uL Abnormal 0-2 [facility] Comment on above: Performed By: #### U MICRO, UACSIND #### [facility] [address] [address] [address] Jose Elias Strong WBC 0-2 Abnormal NONE SEEN [facility] Comment on above: Performed By: #### U MICRO, UACSIND #### [facility] [address] [address] [address] Jose Elias Strong CBC AUTO DIFFon 08-19-2021 BASO # 0.0 103/ul Normal 0.0-0.1 [facility] Comment on above: Performed By: #### T NS #### [facility] [address] [place] [address] Dr. Jose Elias Strong Basophils/100 WBC (Bld) 0.2 % Normal 0.2-2.0 [facility] Comment on above: Performed By: #### T NS #### [facility] [address] [address] [address] Jose Elias Strong EO # 0.1 103/ul Normal 0.0-0.7 [facility] Comment on above: Performed By: #### T NS #### [facility] [address] [place] [address] Dr. Jose Elias Strong Eosinophils/100 WBC (Bld) 0.7 % Critically low 0.9-7.0 [facility] Comment on above: Performed By: #### T NS #### [facility] [address] [address] [address] Jose Elias Strong Erythrocyte distribution width (RBC) [Ratio] 15.9 % Critically high 11.0-15.0 [facility] Comment on above: Performed By: #### T NS #### [facility] [address] [place] [address] Dr. Jose Elias Strong Hematocrit (Bld) [Volume fraction] 32.4 % Critically low 36.0-48.0 [facility] Comment on above: Performed By: #### T NS #### [facility] [address] [address] [address] Jose Elias Strong Hemoglobin (Bld) [Mass/Vol] 9.7 g/dL Critically low 12.0-16.0 [facility] Comment on above: Performed By: #### T NS #### [facility] [address] [address] [address] Jose Elias Strong IG # 0.19 10e3/ul Critically high 0.00-0.03 [facility] Comment on above: Performed By: #### T NS #### [facility] [address] [address] [address] Jose Elias Strong IG % 1.4 % Critically high 0.0-0.5 [facility] Comment on above: Performed By: #### T NS #### [facility] [address] [address] [address] Jose Elias Strong LYMPH # 1.9 103/ul Normal 1.2-3.8 [facility] Comment on above: Performed By: #### T NS #### [facility] [address] [place] [address] Dr. Jose Elias Strong Lymphocytes/100 WBC (Bld) 14.4 % Critically low 20.5-60.0 [facility] Comment on above: Performed By: #### T NS #### [facility] [address] [place] [address] Dr. Jose Elias Strong MANUAL DIFF REQ NO Normal [facility] Comment on above: Performed By: #### T NS #### [facility] [address] [address] [address] Jose Elias Strong MCH (RBC) [Entitic mass] 22.3 pg Critically low 26.7-34.0 [facility] Comment on above: Performed By: #### T NS #### [facility] [address] [address] [address] Jose Elias Strong MCHC (RBC) [Mass/Vol] 29.9 g/dL Normal 29.9-35.2 [facility] Comment on above: Performed By: #### T NS #### [facility] [address] [address] [address] Jose Elias Strong MCV (RBC) [Entitic vol] 74.5 fL Critically low 81.0-99.0 [facility] Comment on above: Performed By: #### T NS #### [facility] [address] [address] [address] Jose Elias Strong MONO # 1.4 103/ul Critically high 0.3-0.8 [facility] Comment on above: Performed By: #### T NS #### [facility] [address] [address] [address] Jose Elias Strong Monocytes/100 WBC (Bld) 10.1 % Normal 1.7-12.0 [facility] Comment on above: Performed By: #### T NS #### [facility] [address] [place] [address] Dr. Jose Elias Strong NEUT # 9.8 103/ul Critically high 1.4-6.5 [facility] Comment on above: Performed By: #### T NS #### [facility] [address] [place] [address] Dr. Jose Elias Strong Neutrophils/100 WBC (Bld) 73.2 % Normal 43.0-75.0 [facility] Comment on above: Performed By: #### T NS #### [facility] [address] [place] [address] Dr. Jose Elias Strong Platelet mean volume (Bld) [Entitic vol] 10.0 fL Normal 9.5-13.5 [facility] Comment on above: Performed By: #### T NS #### [facility] [address] [place] [address] Dr. Jose Elias Strong PLT 337 103/ul Normal 150-450 [facility] Comment on above: Performed By: #### T NS #### [facility] [address] [place] [address] Dr. Jose Elias Strong RBC 4.35 106/ul Normal 4.20-5.40 [facility] Comment on above: Performed By: #### T NS #### [facility] [address] [place] [address] Dr. Jose Elias Strong WBC 13.4 103/ul Critically high 4.0-11.0 [facility] Comment on above: Performed By: #### T NS #### [facility] [address] [place] [address] Dr. Jose Elias Strong Covid-19 PCR ([facility])on 08-03 SARS-CoV-2 (COVID-19) RNA [place]+probe Ql (Unsp spec) Not detected Normal NOT DETECTED [facility] Comment on above: Result Comment: When diagnostic [...] for this test is supported by the [place] of Health and Human Service's declaration that [...] used). Performed By: #### C VDTBH #### [facility] [address] [place] [address] Dr. Jose Elias Strong TYPE AND SCREENon 08-19-2021 TYPE AND SCREEN Negative Normal [facility] Comment on above: Performed By: #### T NS #### [facility] [address] [place] [address] Dr. Jose Elias Strong GROUP B STREP CULTUREon 07-05 S. agalactiae Ag Ql (Unsp spec) Culture Observations: NEGATIVE FOR GROUP B STREPTOCOCCUS. Normal [facility] Comment on above: Performed By: #### G BSCX #### [facility] [address] [place] [address] Dr. Jose Elias Strong UA (CLEAN/CATCH) TYPEWRITER ASSEMBLY AND PARTS INSPECTOR/MICRO I F IND.on 06-28-2021 Bilirubin Ql (U) Negative Normal NEGATIVE [facility] Comment on above: Performed By: #### U ACSIND, UMICRO #### [facility] [address] [place] [address] Dr. Jose Elias Strong Clarity (U) CLEAR Normal CLEAR [facility] Comment on above: Performed By: #### U ACSIND, UMICRO #### [facility] [address] [address] [address] Jose Elias Strong Color (U) LT. YELLOW Normal YELLOW [facility] Comment on above: Performed By: #### U ACSIND, UMICRO #### [facility] [address] [place] [address] Dr. Jose Elias Strong Glucose Ql (U) Negative Normal NEGATIVE [facility] Comment on above: Performed By: #### U ACSIND, UMICRO #### [facility] [address] [place] [address] Dr. Jose Elias Strong Hemoglobin Ql (U) Negative Normal NEGATIVE [facility] Comment on above: Performed By: #### U ACSIND, UMICRO #### [facility] [address] [place] [address] Dr. Jose Elias Strong Ketones Ql (U) Negative Normal NEGATIVE [facility] Comment on above: Performed By: #### U ACSIND, UMICRO #### [facility] [address] [address] [address] Jose Elias Strong LEUKOCYTES TRACE Abnormal NEGATIVE [facility] Comment on above: Performed By: #### U ACSIND, UMICRO #### [facility] [address] [place] [address] Dr. Jose Elias Strong Nitrite Ql (U) Negative Normal NEGATIVE [facility] [facility] Comment on above: Performed By: #### U ACSIND, UMICRO #### [facility] [address] [place] [address] Dr. Jose Elias Strong pH (U) 6.5 [pH] Normal 5-9 [facility] Comment on above: Performed By: #### U ACSIND, UMICRO #### [facility] [address] [address] [address] Jose Elias Strong SPEC GRAVITY 1.015 Normal 1.005-<=1.025 [facility] Comment on above: Performed By: #### U ACSIND, UMICRO #### [facility] [address] [address] [address] Jose Elias Strong UA PROTEIN Negative Normal NEGATIVE/ TRACE [facility] Comment on above: Performed By: #### U ACSIND, UMICRO #### [facility] [address] [address] [address] Jose Elias Strong UR MICRO IND INDICATED Normal [facility] Comment on above: Performed By: #### U ACSIND, UMICRO #### [facility] [address] [place] [address] Dr. Jose Elias Strong Urobilinogen Qn (U) 0.2 {Mago'U}/dL Normal 0.2 - 1. 0 [facility] Comment on above: Performed By: #### U ACSIND, UMICRO #### [facility] [address] [place] [address] Dr. Jose Elias Strong URINE MICROSCOPIC ONLYon AMORPHOUS CRYSTALS FEW Normal [facility] Comment on above: Performed By: #### U ACSIND, UMICRO #### [facility] [address] [place] [address] Dr. Jose Elias Strong BACTERIA TRACE Abnormal NONE SEEN [facility] Comment on above: Performed By: #### U ACSIND, UMICRO #### [facility] [address] [place] [address] Dr. Jose Elias Strong Bacteria identified Cx Nom (U) NOT INDICATED Normal [facility] Comment on above: Performed By: #### U ACSIND, UMICRO #### [facility] [address] [address] [address] Jose Elias Strong CAST NONE SEEN Normal NONE SEEN [facility] Comment on above: Performed By: #### U ACSIND, UMICRO #### [facility] [address] [address] [address] Jose Elias Strong Crystals LM Nom (Urine sed) SEEN Abnormal NONE SEEN [facility] Comment on above: Performed By: #### U ACSIND, UMICRO #### [facility] [address] [place] [address] Dr. Jose Elias Strong Epithelial cells LM Ql (Urine sed) RARE Normal NONE SEEN /RARE [facility] Comment on above: Performed By: #### U ACSIND, UMICRO #### [facility] [address] [place] [address] Dr. Jose Elias Strong MUCOUS TRACE Abnormal NONE SEEN [facility] Comment on above: Performed By: #### U ACSIND, UMICRO #### [facility] [address] [place] [address] Dr. Jose Elias Strong RBC 0-2 Normal 0-2 [facility] Comment on above: Performed By: #### U ACSMICHAEL, UMICRO #### [facility] [address] [place] [address] Dr. Jose Elias Strong WBC 2-5 Abnormal NONE SEEN [facility] Comment on above: Performed By: #### U ACSMICHAEL, UMICRO #### [facility] [address] [place] [address] Dr. Jose Elias Strong CBC AUTO DIFFon 06-19-2021 BASO # 0.0 103/ul Normal 0.0-0.1 [facility] Comment on above: Performed By: #### C BC #### [facility] [address] [place] [address] Dr. Jose Elias Strong Basophils/100 WBC (Bld) 0.3 % Normal 0.2-2.0 [facility] Comment on above: Performed By: #### C BC #### [facility] [address] [place] [address] Dr. Jose Elias Strong EO # 0.2 103/ul Normal 0.0-0.7 [facility] Comment on above: Performed By: #### C BC #### [facility] [address] [place] [address] Dr. Jose Elias Strong Eosinophils/100 WBC (Bld) 2.0 % Normal 0.9-7.0 [facility] Comment on above: Performed By: #### C BC #### [facility] [address] [place] [address] Dr. Jose Elias Strong Erythrocyte distribution width (RBC) [Ratio] 13.6 % Normal 11.0-15.0 [facility] Comment on above: Performed By: #### C BC #### [facility] [address] [place] [address] Dr. Jose Elias Strong Hematocrit (Bld) [Volume fraction] 29.4 % Critically low 36.0-48.0 [facility] Comment on above: Performed By: #### C BC #### [facility] [address] [place] [address] Dr. Jose Elias Strong Hemoglobin (Bld) [Mass/Vol] 9.5 g/dL Critically low 12.0-16.0 [facility] Comment on above: Performed By: #### C BC #### [facility] [address] [place] [address] Dr. Jose Elias Strong IG # 0.14 10e3/ul Critically high 0.00-0.03 [facility] Comment on above: Performed By: #### C BC #### [facility] [address] [place] [address] Dr. Jose Elias Strong IG % 1.4 % Critically high 0.0-0.5 [facility] Comment on above: Performed By: #### C BC #### [facility] [address] [place] [address] Dr. Jose Elias Strong LYMPH # 1.6 103/ul Normal 1.2-3.8 [facility] Comment on above: Performed By: #### C BC #### [facility] [address] [place] [address] Dr. Jose Elias Strong Lymphocytes/100 WBC (Bld) 15.5 % Critically low 20.5-60.0 [facility] Comment on above: Performed By: #### C BC #### [facility] [address] [place] [address] Dr. Jose Elias Strong MANUAL DIFF REQ NO Normal [facility] Comment on above: Performed By: #### C BC #### [facility] [address] [address] [address] Jose Elias Strong MCH (RBC) [Entitic mass] 26.8 pg Normal 26.7-34.0 [facility] Comment on above: Performed By: #### C BC #### [facility] [address] [address] [address] Jose Elias Strong MCHC (RBC) [Mass/Vol] 32.3 g/dL Normal 29.9-35.2 [facility] Comment on above: Performed By: #### C BC #### [facility] [address] [address] [address] Jose Elias Strong MCV (RBC) [Entitic vol] 82.8 fL Normal 81.0-99.0 [facility] Comment on above: Performed By: #### C BC #### [facility] [address] [place] [address] Dr. Jose Elias Strong MONO # 1.2 103/ul Critically high 0.3-0.8 [facility] Comment on above: Performed By: #### C BC #### [facility] [address] [address] [address] Jose Elias Strong Monocytes/100 WBC (Bld) 12.2 % Critically high 1.7-12.0 [facility] Comment on above: Performed By: #### C BC #### [facility] [address] [address] [address] Jose Elias Strong NEUT # 7.0 103/ul Critically high 1.4-6.5 [facility] Comment on above: Performed By: #### C BC #### [facility] [address] [address] [address] Jose Elias Strong Neutrophils/100 WBC (Bld) 68.6 % Normal 43.0-75.0 [facility] Comment on above: Performed By: #### C BC #### [facility] [address] [place] [address] Dr. Jose Elias Strong Platelet mean volume (Bld) [Entitic vol] 9.1 fL Critically low 9.5-13.5 [facility] Comment on above: Performed By: #### C BC #### [facility] [address] [address] [address] Jose Elias Strong PLT 309 103/ul Normal 150-450 [facility] Comment on above: Performed By: #### C BC #### [facility] [address] [address] [address] Jose Elias Strong RBC 3.55 106/ul Critically low 4.20-5.40 [facility] Comment on above: Performed By: #### C BC #### [facility] [address] [address] [address] Jose Elias Strong WBC 10.1 103/ul Normal 4.0-11.0 [facility] Comment on above: Performed By: #### C BC #### [facility] [address] [address] [address] Jose Elias Strong GLYCOHEMOGLOBIN A1Con 2021 ADA RECOMMENDATION ADA THERAPEUTIC TARGET 6.0 - 7.0 ACTION SUGGESTED > 7.0 Normal [facility] Comment on above: Performed By: #### T NS #### [facility] [address] [address] [address] Jose Elias Strong Glucose [Mass/Vol] 97 mg/dL Normal [facility] Comment on above: Performed By: #### T NS #### [facility] [address] [address] [address] Jose Elias Strong HbA1c (Bld) [Mass fraction] 5.0 % Normal <=6.0 [facility] Comment on above: Performed By: #### T NS #### [facility] [address] [address] [address] Jose Elias Strong Consenton 10-24-2020 Consent [id number] .00CD:127 Normal [facility] In office Testingon 10-25-19 In office Testing [id number] 1.00CD:127 Normal [facility] Registrationon 10-24-2020 Registration [id number] .00CD:127 [facility] Registration [id number] .00CD:127 [facility] Vital Signs Date Time Vital Sign Value Performing Clinician Leslie garrett 06-12-2023 11:02-0500 Body mass index (BMI) [Ratio] 30.26 kg/m2 Mary Venkat DO Work Phone: [facility] 06-12-2023 11:02-050 Body weight 77.47 kg Mary Venkat DO Work Phone: [facility] 06-12-2023 11:02-0500 Diastolic blood pressure 70 mm[Hg] Mary Venkat DO Work Phone: [facility] 06-12-2023 11:02-0500 Systolic blood pressure 118 mm[Hg] Mary Venkat DO Work Phone: [facility] Encounters Encounter Date Encounter Type Care Provider Facility Start: 06-24-2023 End: 06-24-2023 ambulatory ERIKA ROCIO Not Available Start: 06-12-2023 End: 06-12-2023 ambulatory MARY VENKAT Not Available Start: 06-12-2023 End: 06-12-2023 Office outpatient visit 15 minutes Mary Venkat DO Work Phone: [facility] Comment on above: Third trimester preg jun Start: 05-29-2023 End: 05-29-2023 ambulatory ERIKA ROCIO Not Available Start: 04-23-2023 End: 04-23-2023 ambulatory MARY VENKAT Not Available Start: 03-19-2023 End: 03-19-2023 ambulatory MARY VENKAT Not Available Start: 12-10-2022 ambulatory ALEXANDER Lucia [facility] Start: 11-19-2022 End: 11-19-2022 ambulatory YOMAIRA LAWLER [facility] Start: 10-28-2022 End: 10-29-2022 ambulatory ALEXANDER [facility] Start: 08-29-2022 ambulatory YOMAIRA LAWLER [facility] Start: 08-19-2022 End: 08-19-2022 Emergency department patient visit YOMAIRA LAWLER [facility] Start: 08-08-2022 End: 08-08-2022 Emergency department patient visit JERRY WALLS [facility] Start: 06-04-2022 End: 06-04-2022 ambulatory [...] Routine [facility] [address] [place] [id number] Erika Keith PA [address] [place] [address] [facility] Payers Date Payer Category Payer Medicaid [id number] 2022 Medicaid [employer] [place] [id number] 2022-Present [address] [place] [address] [id number] 1995 Unknown [id number] 2.16.840.1.183625.3.579.2.593 1995 Unknown [id number] 2.16.840.1.830535.3.579.2.593 1995 Unknown [id number] 2.16.840.1.947542.3.579.2.593 1995 Unknown [id number] 2.16.840.1.723958.3.579.2.593 1995 Unknown [id number] 2.16.840.1.383321.3.579.2.593 1995 Unknown [id number] 2.16.840.1.935370.3.579.2.593 1995 Unknown [id number] 2.16.840.1.579427.3.579.2.593 1995 Unknown [id number] 2.16.840.1.119811.3.579.2.593 1995 Unknown [id number] 2.16.840.1.679932.3.579.2.121 1995 Unknown [id number] 2.16.840.1.079318.3.579.2.121 1995 Unknown [id number] 2.16.840.1.668882.3.579.2.121 1995 Unknown [id number] 2.16.840.1.970845.3.579.2.1213 1995 Unknown [id number] 2.16.840.1.432050.3.579.2.1212 1995 Unknown [id number] 2.16.840.1.122939.3.579.2.1212 1995 Unknown [id number] 2.16.840.1.399426.3.579.2.1258 1995 Unknown [id number] 2.16.840.1.473037.3.579.2.1258 1995 Unknown [id number] 2.16.840.1.299582.3.579.2.1258 1995 Unknown [id number] 2.16.840.1.942900.3.579.2.1258 1995 Unknown [id number] 2.16.840.1.649382.3.579.2.9 1959 Unknown [id number] Social History Date Type Detail Facility Start: 10-21-2022 Tobacco smoking stat [facility] Never smoked tobacco [facility] [...] Ambulatory Problems Diagnosis Date Noted Acute asthma ([facility]) 12/03/2022 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 12/03/2022 Neck swelling 08/19/2022 Schizoaffective disorder ([facility]) 12/03/2022 Resolved Ambulatory Problems Diagnosis Date Noted No Resolved Ambulatory Problems Past Medical History: Diagnosis Date BMI 24.0-24.9, adult Depot contraception Encounter for IUD insertion Encounter for Papanicolaou cervical smear to confirm findings of recent normal smear following initial abnormal smear Intrauterine device surveillance Schizo-affective psychosis ([facility]) Urine test [...] nursing note reviewed. Exam conducted with a paving stone installer present. Vitals: Estimated body mass index is [...] content) DATE CREATED AUTHOR 10/25/2020 [facility] DATE CREATED AUTHOR AUTHOR'S ORGANIZ ATION 06/11/2022 [facility] DATE CREATED AUTHOR AUTHOR'S ORGANIZ ATION 12/16/2022 [facility] DATE CREATED AUTHOR AUTHOR'S ORGANIZ ATION 07/01/2023 [facility] EPIC Reason for Visit (unrecogniz ed [...] BE BASED ON THE PRIMARY CLINICAL RECORDS. [facility] [employer] [facility]. provides no warranty or guarantee of the accuracy or completeness of information in this document.
--- NOTE | 2023-07-08 11:00 | US_ITS ---
[address] [address] Patient Name: KRISSY LOPEZ MRN: [id number] date: 1995 Sex: F Assigned Patient Location: [facility] Current Patient Location: [facility] Accession/Order Number: [id number] Exam Date: 07/08/2023 10:07 Report Date: 07/08/2023 10:56 At the request of: MARY MARIE Procedure: US OB BPP w non-stress EXAMINATION: US OB BPP w non-stress HISTORY: LGA COMPARISON: No relevant comparison available. TECHNIQUE: Ultrasound biophysical profile was performed in the radiology department. non-reactive stress testing was performed by nursing staff in the birthing center. FINDINGS: BREATHING MOVEMENTS: 2 GROSS BODY MOVEMENTS: 2 TONE: 2 QUALITATIVE AMNIOTIC FLUID VOLUME: 2 PRESENTATION: TRANSVERSE HEART RATE: 147.0 bpm H.B./min AMNIOTIC FLUID VOLUME: 24.7 cm cm GESTATIONAL AGE: 36 weeks 1 days Polyhydramnios CONCLUSION: Total biophysical profile score: 8/8 Electronically authenticated by: HAMMAD FRAZIER Date: 07/08/2023 10:56
== END 2023-07-08 10:04 | disposition home or self-care (01) ==
LOC: NOMS 10:04
PROVIDERS: PCP Family Medicine; Visit Provider Obstetrics & Gynecology
DX: O36.63X0 Maternal care for excessive fetal growth, third trimester, not applicable or unspecified (principal); Z3A.38 38 weeks gestation of pregnancy; O40.3XX0 Polyhydramnios, third trimester, not applicable or unspecified
CPT/HCPCS: 76816; 76818; 87081

== ENCOUNTER 2023-07-08 19:51 | Outpatient (REF) | payer OTHER, SELFPAY ==
--- OUTSIDE RECORDS SUMMARY | 2023-07-08 20:03 | XMS_ITS | CCD ---
Author Name Unknown Address [address] [place] [address] Organization [facility] Care Team Providers Care Registry Nurse Name Role Phone VENKAT, DR HERNANDEZ Admitting [...] [LATEX] Drug allergy (disorder) 6 [facility] Repository (2 sources) Leucine; Translations: [NICKEL] Drug Allergy 7 [facility] Repository (2 sources) Penicillins; Translations: [PENICILLINS] Drug allergy (disorder) 7 [facility] Repository (1 source) Shellfish Drug allergy (disorder) 7 [facility] Repository (2 sources) Iodine; Translations: [IODINE] Drug Allergy 3 [facility] Repository (1 source) SHELLFISH CONTAINING PRODUCTS; Translations: [SHELLFISH CONTAINING PRODUCTS] Propensity to adverse reactions to drug (disorder) 3 [facility] Repository (1 source) VENOM-HONEY BEE; Translations: [VENOM-HONEY BEE] Propensity to adverse reactions to drug (disorder) 3 [facility] Repository (1 source) Amoxicillin Drug Allergy 3 Unknown [facility] (1 source) Bee pollen Allergy to substance 3 Unknown [facility] (1 source) Honey bee venom Propensity to adverse reactions [address] [facility] (1 source) Latex Allergy to substance 3 Unknown [facility] (1 source) nickel sulfate Drug Allergy [address] [facility] (1 source) Penicillin G Drug Allergy 3 Unknown [facility] (1 source) Shellfish-Derive d Products Drug Allergy 3 Unknown [facility] Medications Current Medications Medication Drug Class(es) Dates Sig (Normalized) Sig (Original) [id number] 200 actuat albuterol 0.09 mg/actuat metered dose [...] sexual mode of transmission complicating childbirth; Translations: [[facility] INF SEXL TRNSMS COMP CHILDBIRTH] Onset: 08-19-2021 Episodic Other complications of ; puerperium affecting management of mother (1 source) Other mental disorders complicating childbirth; Translations: [[facility] MENTAL D/O COMP CHILDBIRTH] Onset: 08-30-2021 Episodic Other complications of (4 sources) Other specified related conditions, third trimester; Translations: [[facility] SPEC PREG RELATED COND 3RD TRI] [...] UA Negative Negative - 4(70) +++ mg/dL [facility] Blood, UA Negative Negative - 50 Yovany/mcL [facility] Clarity, UA Clear [facility] Color, UA Yellow [facility] Glucose, UA Negative Negative - 2000(110) ++++ mg/dL [facility] Interpretation and review of laboratory results Abnormal [facility] Ketones, UA Negative Negative - 160(16) ++++ mg/dL [facility] Leukocytes, UA Positive Negative - 500+++ Jamey/mcL [facility] Nitrite, UA Negative Negative - Positive [facility] pH, UA 5.5 5 - 9 [facility] Protein, UA Positive Negative - 2000(20) ++++ mg/dL [facility] Spec Grav, UA 1.020 1 - 1.03 [facility] Urobilinogen, UA 1.0 0.2 - 12 mg/dL [facility] HCG, Urineon 11-19-2022 Beta HCG ( test) [...] for all patient populations. Testing performed at [facility], [address] [place] [address] 63895 Result Comment: Note : This test provides only a presumptive diagnosis for . If the HCG result is inconsistent with clinical evidence, results should be confirmed with an alternative method, such as a quantitative HCG. Basic Metabolic Profileon ANIO 11 mmol/L Low 12-20 [facility] Comment on above: Order Comment: Testi ng performed at [facility], [address] [place] [address] 35743 Calcium [Mass/Vol] 9.5 mg/dL Normal 8.4-10.2 [facility] Comment on above: Order Comment: Testi ng performed at [facility], [address] [place] [address] 67066 Chloride [Moles/Vol] 107 mmol/L Normal 98-107 [facility] Comment on above: Order Comment: Testi ng performed at [facility], [address] [place] [address] 72393 CO2 [Moles/Vol] 23.0 mmol/L Normal 22.0-30.0 [facility] Comment on above: Order Comment: Testi ng performed at [facility], [address] [place] [address] 92057 Creatinine [Mass/Vol] 0.7 mg/dL Normal 0.6-1.2 [facility] Comment on above: Order Comment: Testi ng performed at [facility], [address] [place] [address] 33929 Glucose [Mass/Vol] 118 mg/dL High 74-106 [facility] Comment on above: Order Comment: Testi ng performed at [facility], [address] [place] [address] 93042 Potassium [Moles/Vol] 4.1 mmol/L Normal 3.3-4.9 [facility] Comment on above: Order Comment: Testi ng performed at [facility], [address] [place] [address] 43027 Sodium [Moles/Vol] 137 mmol/L Normal 137-145 [facility] Comment on above: Order Comment: Testi ng performed at [facility], [address] [place] [address] 45997 Urea nitrogen [Mass/Vol] 14 mg/dL Normal 8-19 [facility] Comment on above: Order Comment: Testi ng performed at [facility], [address] [place] [address] 28187 CBC w/Auto Diffon 08-19-2022 Basophils (Bld) [#/Vol] [...] no longer indicated. Testing performed at [facility], [address] [place] [address] 03721 Eosinophils (Bld) [#/Vol] 0.05 10*3/uL Normal 0.00-0.40 [...] no longer indicated. Testing performed at [facility], [address] [place] [address] 28396 Erythrocyte distribution width (RBC) [Ratio] 13.3 % [...] no longer indicated. Testing performed at [facility], [address] [place] [address] 01294 Hematocrit (Bld) [Volume fraction] 36.1 % Normal [...] is no longer indicated. Testing performed at [facility], [address] [place] [address] 94520 Hemoglobin (Bld) [Mass/Vol] 12.0 g/dL Normal 11.2-15.7 [...] no longer indicated. Testing performed at [facility], [address] [place] [address] 27907 IG % (B) 0.6 % High 0.0-0.4 [...] is no longer indicated. Testing performed at [facility], [address] [place] [address] 45542 IG# (B) 0.14 10*3/uL High 0.00-0.00 [facility] [...] is no longer indicated. Testing performed at [facility], [address] [place], [place] [address] Lymphocytes (Bld) [#/Vol] 0.81 10*3/uL Low 1.20-3.70 [...] is no longer indicated. Testing performed at [facility], [address] [place] [address] 36395 MCH (RBC) [Entitic mass] 28.5 pg Normal [...] is no longer indicated. Testing performed at [facility], [address] [place] [address] 96065 MCHC (RBC) [Mass/Vol] 33.2 g/dL Normal 32.2-35.5 [...] is no longer indicated. Testing performed at [facility], [address] [place] [address] 85432 MCV (RBC) [Entitic vol] 85.7 fL Normal [...] is no longer indicated. Testing performed at [facility], [address] [place] [address] 58698 Monocytes (Bld) [#/Vol] 1.81 10*3/uL High 0.20-0.90 [...] no longer indicated. Testing performed at [facility], [address] [place] [address] 84766 Neutrophils (Bld) [#/Vol] 20.04 10*3/uL High 1.60-6.10 [...] no longer indicated. Testing performed at [facility], [address] [place] [address] 14058 NRBC % (B) 0.0 /100{WBC} Normal 0.0-0.2 [...] is no longer indicated. Testing performed at [facility], [address] [place] [address] 65146 NRBC# (B) 0.00 10*3/uL Normal 0.00-0.00 [facility] [...] is no longer indicated. Testing performed at [facility], [address] [place] [address] 92342 Platelet mean volume (Bld) [Entitic vol] 9.9 [...] is no longer indicated. Testing performed at [facility], [address] [place] [address] 11246 Platelets (Bld) [#/Vol] 267 10*3/uL Normal 182-369 [...] no longer indicated. Testing performed at [facility], [address] [place] [address] 66958 RBC (Bld) [#/Vol] 4.21 10*6/uL Normal 3.93-5.22 [facility] Comment on above: Order Comment: Immature [...] is no longer indicated. Testing performed at [facility], [address] [place] [address] 36340 RDW-SD (B) 41.1 fL Normal 36.4-46.3 [facility] [...] no longer indicated. Testing performed at [facility], [address] [place] [address] 33377 WBC (Bld) [#/Vol] 22.9 10*3/uL High 4.0-10.0 [facility] Comment on above: Order Comment: Immature [...] no longer indicated. Testing performed at [facility], [address] [place] [address] NECK WITHOUT CONTRASTon 0 08-19-2022 CT [...] for all patient populations. Testing performed at [facility], [address] [place] [address] 94953 Result Comment: The reported eGFR is based on a non- patient, for Americans multiply the result by 1.212. HCG, Serumon 08-19-2022 HCGS Negative Normal [facility] Comment on above: Order Comment: Testi ng performed at [facility], [address] [place] [address] 32428 Result Comment: Note : This test provides only a presumptive diagnosis for . If the HCG result is inconsistent with clinical evidence, results should be confirmed with an alternative method, such as a quantitative HCG. Man Diffon 08-19-2022 Eos, Diff 2 % Normal 0-6 [facility] Comment on above: Order Comment: Testi ng performed at [facility], [address] [place] [address] 83283 Lymphocytes/100 WBC (Bld) 3 % Low 20-53 [facility] Comment on above: Order Comment: Testi ng performed at [facility], [address] [place] [address] 08702 [place], Diff 6 % Normal 5-12 [facility] Comment on above: Order Comment: Testi ng performed at [facility], [address] [place] [address] 09610 Segs. Diff 89 % High 34-70 [facility] Comment on above: Order Comment: Testi ng performed at [facility], [facility] [place] [address] Slide Scan Normal Normal Normal [facility] Comment on above: Order Comment: Testi ng performed at [facility], [address] [place] [address] Basic Metabolic Profileon ANIO 12 mmol/L Normal 12-20 [facility] Comment on above: Order Comment: Testi ng performed at [facility], [facility] [place] [address] Calcium [Mass/Vol] 9.1 mg/dL Normal 8.4-10.2 [facility] Comment on above: Order Comment: Testi ng [facility] at [facility], [address] [place] [address] Chloride [Moles/Vol] 106 mmol/L Normal 98-107 [facility] Comment on above: Order Comment: [facility], [address] [place] [address] CO2 [Moles/Vol] 27.0 mmol/L Normal 22.0-30.0 [facility] Comment on above: Order Comment: Testi ng performed at [facility], [facility] [place] [address] Creatinine [Mass/Vol] 0.6 mg/dL Normal 0.6-1.2 [facility] Comment on above: Order Comment: Testi ng performed at [facility], [facility] [place] [address] Glucose [Mass/Vol] 95 mg/dL Normal 74-106 [facility] Comment on above: Order Comment: Testi ng performed at [facility], [address] [place] [address] Potassium [Moles/Vol] 4.1 mmol/L Normal 3.3-4.9 [facility] Comment on above: Order Comment: Testi ng performed at [facility], [address] [place] [address] Sodium [Moles/Vol] 141 mmol/L Normal 137-145 [facility] Comment on above: Order Comment: Testi ng performed at [facility], [facility] [place] [address] Urea nitrogen [Mass/Vol] 9 mg/dL Normal 8-19 [facility] Comment on above: Order Comment: Testi ng performed at [facility], [address] [place] [address] CBC w/Auto Diffon 08-08-2022 Basophils (Bld) [#/Vol] [...] no longer indicated. Testing performed at [facility], [address] [place] [address] 94068 Basophils/100 WBC (Bld) 0.4 % Normal 0.1-1.2 [...] is no longer indicated. Testing performed at [facility], [address] [place] [address] 92347 Eosinophils (Bld) [#/Vol] 0.21 10*3/uL Normal 0.00-0.40 [...] is no longer indicated. Testing performed at [facility], [address] [place] [address] 71051 Eosinophils/100 WBC (Bld) 2.1 % Normal 0.7-5.8 [...] no longer indicated. Testing performed at [facility], [address] [place] [address] 24498 Erythrocyte distribution width (RBC) [Ratio] 12.9 % [...] is no longer indicated. Testing performed at [facility], [address] [place] [address] Hematocrit (Bld) [Volume fraction] 35.4 % Normal [...] is no longer indicated. Testing performed at [facility], [address] [place], [place] [address] Hemoglobin (Bld) [Mass/Vol] 11.2 g/dL Normal 11.2-15.7 [...] is no longer indicated. Testing performed at [facility], [address] [place] [address] 42815 IG % (B) 0.4 % Normal 0.0-0.4 [...] is no longer indicated. Testing performed at [facility], [address] [place] [address] 79661 IG# (B) 0.04 10*3/uL High 0.00-0.00 [facility] [...] is no longer indicated. Testing performed at [facility], [address] [place] [address] 82730 Lymphocytes (Bld) [#/Vol] 1.60 10*3/uL Normal 1.20-3.70 [...] is no longer indicated. Testing performed at [facility], [address] [place] [address] 75761 Lymphocytes/100 WBC (Bld) 16.3 % Low 19.3-51.7 [...] no longer indicated. Testing performed at [facility], [address] [place] [address] 92314 MCH (RBC) [Entitic mass] 27.7 pg Normal [...] no longer indicated. Testing performed at [facility], [address] [place] [address] 05714 MCHC (RBC) [Mass/Vol] 31.6 g/dL Low 32.2-35.5 [...] is no longer indicated. Testing performed at [facility], [address] [place] [address] 82762 MCV (RBC) [Entitic vol] 87.4 fL Normal [...] is no longer indicated. Testing performed at [facility], [address] [place] [address] 87207 Monocytes (Bld) [#/Vol] 0.88 10*3/uL Normal 0.20-0.90 [...] is no longer indicated. Testing performed at [facility], [address] [place] [address] 46859 Monocytes/100 WBC (Bld) 8.9 % Normal 4.7-12.5 [...] no longer indicated. Testing performed at [facility], [address] [place] [address] 90993 Neutrophils (Bld) [#/Vol] 7.07 10*3/uL High 1.60-6.10 [...] is no longer indicated. Testing performed at [facility], [address] [place] [address] 70512 Neutrophils/100 WBC (Bld) 71.9 % High 34.0-71.1 [...] is no longer indicated. Testing performed at [facility], [address] [place] [address] 11339 NRBC % (B) 0.0 /100{WBC} Normal 0.0-0.2 [...] no longer indicated. Testing performed at [facility], [address] [place] [address] 58185 NRBC# (B) 0.00 10*3/uL Normal 0.00-0.00 [facility] [...] is no longer indicated. Testing performed at [facility], [address] [place] [address] 54096 Platelet mean volume (Bld) [Entitic vol] 9.2 [...] is no longer indicated. Testing performed at [facility], [address] [place] [address] 58859 Platelets (Bld) [#/Vol] 315 10*3/uL Normal 182-369 [...] is no longer indicated. Testing performed at [facility], [address] [place] [address] 34085 RBC (Bld) [#/Vol] 4.05 10*6/uL Normal 3.93-5.22 [facility] Comment on above: Order Comment: Immature [...] is no longer indicated. Testing performed at [facility], [address] [place] [address] 23927 RDW-SD (B) 41.0 fL Normal 36.4-46.3 [facility] [...] is no longer indicated. Testing performed at [facility], [address] [place] [address] 21734 WBC (Bld) [#/Vol] 9.8 10*3/uL Normal 4.0-10.0 [facility] Comment on above: Order Comment: Immature [...] is no longer indicated. Testing performed at [facility], [address] [place] [address] NECK WITHOUT CONTRASTon 0 08-08-2022 CT [...] for all patient populations. Testing performed at [facility], [address] [place] [address] 86568 Result Comment: The reported eGFR is based on a non- patient, for Americans multiply the result by 1.212. Pap IG, rfx Aptima HPV, rfx 16/18,45on 06-11-2022 . . Normal [facility] Comment on above: Result Comment: Perf ormed at: WB Performed By: #### P APHR2A #### [facility] [address] [place], [place] [address] Dr. [facility] DIAGNOSIS: Comment Normal [facility] Comment on above: Result Comment: NEGA TIVE FOR INTRAEPITHELIAL LESION OR MALIGNANCY. Performed at: WB Performed By: #### P APHR2A #### [facility] [address] [place] [address] Dr. [facility] HPV Aptima Negative Normal Negative [facility] Comment on above: Result Comment: This nucleic acid amplification test detects fourteen high-risk HPV types (16,18,31,33,35,39,45,51,52,56,58,59,66,68) without differentiation. Performed at: =G Performed By: #### P APHR2A #### [facility] [address] [place] [address] [address] [facility] HPV Genotype Reflex Comment Normal [facility] Comment on above: Result Comment: Crit eria not met, HPV Genotype not performed. Performed at: WB Performed By: #### P APHR2A #### [facility] [address] [place] [address] Dr. [facility] Methodology: Comment Normal [facility] Comment on above: Result Comment: This liquid based ThinPrep(R) pap test was screened with the use of an image guided system. Performed at: WB Performed By: #### P APHR2A #### [facility] [address] [place] [address] Dr. [facility] Note: Comment Normal [facility] Comment on above: Result Comment: The [...] Performed By: #### P APHR2A #### [facility] [address] [place] [address] Dr. [facility] Performed by: Comment Normal [facility] Comment on above: Result Comment: Koffi Hutchinson, Employee Health Nurse (ASCP) Performed at: WB Performed By: #### P APHR2A #### [facility] [address] [place] [address] Dr. [facility] Specimen adequacy: Comment Normal [facility] Comment on above: Result Comment: Sati sfactory for evaluation. Endocervical and/or squamous metaplastic cells (endocervical component) are present. Performed at: WB Performed By: #### P APHR2A #### [facility] [address] [place] [address] Dr. [facility] PAP ACOG PANEL 2: 21 to 29on 11-20-2021 . . Normal [facility] Comment on above: Performed By: #### [id number] #### [facility] [address] [place] [address] Dr. [facility] Age Gdln ACOG Testing - [facility] Comment on above: Performed By: #### [id number] #### [facility] [address] [place] [address] Dr. [facility] DIAGNOSIS: Comment [facility] Comment on above: Result Comment: NEGA TIVE FOR INTRAEPITHELIAL LESION OR MALIGNANCY. REACTIVE CELLULAR CHANGES AND/OR REPAIR ARE PRESENT. Performed By: #### [id number] #### [facility] [address] [place] [address] Dr. [facility] Electronically signed by: Comment Normal [facility] Comment on above: Result Comment: Melinda Patel MD, Pathologist Performed By: #### [id number] #### [facility] [address] [place] [address] Dr. [facility] Methodology: Comment [facility] Comment on above: Result Comment: This liquid based ThinPrep(R) pap test was screened with the use of an image guided system. Performed By: #### [id number] #### [facility] [address] [place] [address] Dr. [facility] Note: Comment [facility] Comment on above: Result Comment: The Pap smear is a screening test designed to aid in the detection of premalignant and malignant conditions of the uterine cervix. It is not a diagnostic procedure and should not be used as the sole means of detecting cervical cancer. Both false-positive and false-negative reports do occur. . Performed By: #### [id number] #### [facility] [address] [place] [address] Dr. [facility] Performed by: Comment Normal [facility] Comment on above: Result Comment: Bruc e Den Romero, Employee Health Nurse (ASCP) Performed By: #### [id number] #### [facility] [address] [place] [address] Dr. [facility] Reflex Criteria: Comment Normal [facility] Comment on above: Result Comment: The HPV DNA reflex criteria were not met with this specimen result therefore, no HPV testing was performed. . Performed By: #### [id number] #### [facility] [address] [place] [address] Dr. [facility] Specimen adequacy: Comment Normal [facility] Comment on above: Result Comment: Sati sfactory for evaluation. Endocervical and/or squamous metaplastic cells (endocervical component) are present. Performed By: #### [id number] #### [facility] [address] [place] [address] Dr. [facility] CBC W MANUAL DIFFon 08-21-19 22 ANISOCYTOSIS 1+ Normal [facility] Comment on above: Performed By: #### T NS #### [facility] [address] [place] [address] Dr. [facility] ATYPICAL LYMPH # Normal [facility] Comment on above: Performed By: #### T NS #### [facility] [address] [place] [address] Dr. [facility] ATYPICAL LYMPH % Normal [facility] Comment on above: Performed By: #### T NS #### [facility] [address] [place] [address] Dr. [facility] BAND # 0.2 103/ul Normal 0.0-0.3 [facility] Comment on above: Performed By: #### T NS #### [facility] [address] [place] [address] Dr. [facility] BAND % 1 % Normal 0-5 [facility] Comment on above: Performed By: #### T NS #### [facility] [address] [place] [address] Dr. Jose [facility] BASOM # 0.00 103/ul Normal 0.00-0.10 [facility] Comment on above: Performed By: #### T NS #### [facility] [facility] [address] [place] [address] Dr. Jose Elias Strong BASOM % 0.0 % Critically low 0.2-2.0 [facility] Comment on above: Performed By: #### T NS #### [facility] [address] [place] [address] Dr. Jose Elias Strong BLAST # Normal [facility] Comment on above: Performed By: #### T NS #### [facility] [address] [address] [address] Jose Elias Strong BLAST % Normal [facility] Comment on above: Performed By: #### T NS #### [facility] [address] [place] [address] Dr. Jose Elias Strong CORRECTED WBC Normal 4.0-11.0 [facility] Comment on above: Performed By: #### T NS #### [facility] [address] [place] [address] Dr. Jose Elias Strong EOS # 0.00 103/ul Normal 0.00-0.70 [facility] Comment on above: Performed By: #### T NS #### [facility] [address] [place] [address] Dr. Jose Elias Strong EOS% 0.0 % Critically low 0.9-7.0 [facility] Comment on above: Performed By: #### T NS #### [facility] [address] [place] [address] Dr. Jose Elias Strong HCT 27.5 % Critically low 36.0-48.0 [facility] Comment on above: Performed By: #### T NS #### [facility] [address] [place] [address] Dr. Jose Elias Strong HGB 8.1 g/dl Critically low 12.0-16.0 [facility] Comment on above: Performed By: #### T NS #### [facility] [address] [place] [address] Dr. Jose Elias Strong LYMPHM # 1.62 103/ul Normal 1.20-3.80 [facility] Comment on above: Performed By: #### T NS #### [facility] [address] [address] [address] Jose Elias Strong LYMPHM% 9.0 % Critically low 20.5-60.0 [facility] Comment on above: Performed By: #### T NS #### [facility] [address] [address] [address] Jose Elias Strong MCH 22.2 pg Critically low 26.7-34.0 [facility] Comment on above: Performed By: #### T NS #### [facility] [address] [address] [address] Jose Elias Strong MCHC 29.5 g/dl Critically low 29.9-35.2 [facility] Comment on above: Performed By: #### T NS #### [facility] [address] [place] [address] Dr. Jose Elias Strong MCV 75.3 fL Critically low 81.0-99.0 [facility] Comment on above: Performed By: #### T NS #### [facility] [address] [place] [address] Dr. Jose Elias Srtong METAMYELOCYTE # Normal [facility] Comment on above: Performed By: #### T NS #### [facility] [address] [place] [address] Dr. Jose Elias Strong METAMYELOCYTE % Normal [facility] Comment on above: Performed By: #### T NS #### [facility] [address] [address] [address] Jose Elias Strong MONOM# 1.62 103/ul Critically high 0.30-0.80 [facility] Comment on above: Performed By: #### T NS #### [facility] [address] [address] [address] Jose Elias Strong MONOM% 9.0 % Normal 1.7-12.0 [facility] Comment on above: Performed By: #### T NS #### [facility] [address] [place] [address] Dr. Jose Elias Strong MPV 9.6 fL Normal 9.5-13.5 [facility] Comment on above: Performed By: #### T NS #### [facility] [address] [address] [address] Jose Elias Strong MYELOCYTE # Normal [facility] Comment on above: Performed By: #### T NS #### [facility] [address] [address] [address] Jose Elias Strong MYELOCYTE % Normal [facility] Comment on above: Performed By: #### T NS #### [facility] [address] [address] [address] Jose Elias Strong NRBC Normal [facility] Comment on above: Performed By: #### T NS #### [facility] [address] [address] [address] Jose Elias Strong PLT 308 103/ul Normal 150-450 [facility] Comment on above: Performed By: #### T NS #### [facility] [address] [address] [address] Jose Elias Strong RBC 3.65 106/ul Critically low 4.20-5.40 [facility] Comment on above: Performed By: #### T NS #### [facility] [address] [address] [address] Jose Elias Strong RDW 15.7 % Critically high 11.0-15.0 [facility] Comment on above: Performed By: #### T NS #### [facility] [address] [address] [address] Jose Elias Strong SEG # 14.58 103/ul Critically high 1.40-6.50 [facility] Comment on above: Performed By: #### T NS #### [facility] [address] [address] [address] Jose Elias Strong SEG % 81.0 % Critically high 43.0-75.0 [facility] Comment on above: Performed By: #### T NS #### [facility] [address] [address] [address] Jose Elias Strong WBC 18.0 103/ul Critically high 4.0-11.0 [facility] Comment on above: Performed By: #### T NS #### [facility] [address] [address] [address] Jose Elias Strong DRUG SCREEN RAPID (URINE)on 08-20-2021 AMP Negative Normal NEGATIVE [facility] Comment on above: Performed By: #### T NS #### [facility] [address] [address] [address] Jose Elias Strong BAR Negative Normal NEGATIVE [facility] Comment on above: Performed By: #### T NS #### [facility] [address] [address] [address] Jose Elias Strong BUP Negative Normal NEGATIVE [facility] Comment on above: Performed By: #### T NS #### [facility] [address] [place] [address] Dr. Jose Elias Strong BZO Negative Normal NEGATIVE [facility] Comment on above: Performed By: #### T NS #### [facility] [address] [place] [address] Dr. Jose Elias Strong PAXTON Negative Normal NEGATIVE [facility] Comment on above: Performed By: #### T NS #### [facility] [address] [place] [address] Dr. Jose Elias Strong CUT-OFFS SEE BELOW Normal [facility] Comment on above: Result Comment: AMP [...] Performed By: #### T NS #### [facility] [address] [place] [address] Dr. Jose Elias Strong DRUG CUT HEADER DRUG CLASS TEST SYSTEM CUT-OFF CONCENTRATIONS ARE FOLLOWS: Normal [facility] Comment on above: Performed By: #### T NS #### [facility] [address] [address] [address] Jose Elias Strong mAMP Negative Normal NEGATIVE [facility] Comment on above: Performed By: #### T NS #### [facility] [address] [address] [address] Jose Elias Strong MTD Negative Normal NEGATIVE [facility] Comment on above: Performed By: #### T NS #### [facility] [address] [address] [address] Jose Elias Strong OPI Negative Normal NEGATIVE [facility] Comment on above: Performed By: #### T NS #### [facility] [address] [place] [address] Dr. Jose Elias Strong OXY Negative Normal NEGATIVE [facility] Comment on above: Performed By: #### T NS #### [facility] [address] [place] [address] Dr. Jose Elias Strong PCP Negative Normal NEGATIVE [facility] Comment on above: Performed By: #### T NS #### [facility] [address] [address] [address] Jose Elias Strong PPX Negative Normal NEGATIVE [facility] Comment on above: Performed By: #### T NS #### [facility] [address] [place] [address] Dr. Jose Elias Strong TCA Negative Normal NEGATIVE [facility] Comment on above: Performed By: #### T NS #### [facility] [address] [place] [address] Dr. Jose Elias Strong THC Negative Normal NEGATIVE [facility] Comment on above: Performed By: #### T NS #### [facility] [address] [place] [address] Dr. Jose Elias Strnog UA (CLEAN/CATCH) PHARMACY ORDER ENTRY TECHNICIAN/MICRO I F IND.on 08-20-2021 Bilirubin Ql (U) Negative Normal NEGATIVE [facility] Comment on above: Performed By: #### U MICRO, UACSIND #### [facility] [address] [place] [address] Dr. Jose Elias Strong Clarity (U) SL CLOUDY Abnormal CLEAR [facility] Comment on above: Performed By: #### U MICRO, UACSIND #### [facility] [address] [address] [address] Jose Elias Strong Color (U) RED Abnormal YELLOW [facility] Comment on above: Performed By: #### U MICRO, UACSIND #### [facility] [address] [address] [address] Jose lEias Strong Glucose Ql (U) Negative Normal NEGATIVE [facility] Comment on above: Performed By: #### U MICRO, UACSIND #### [facility] [address] [address] [address] Jose Elias Strong Hemoglobin Ql (U) LARGE Abnormal NEGATIVE [facility] Comment on above: Performed By: #### U MICRO, UACSIND #### [facility] [address] [place] [address] Dr. Jose Elias Strong Ketones Ql (U) 15 mg/dl Abnormal NEGATIVE [facility] Comment on above: Performed By: #### U MICRO, UACSIND #### [facility] [address] [place] [address] Dr. Jose Elias Strong LEUKOCYTES TRACE Abnormal NEGATIVE [facility] Comment on above: Performed By: #### U MICRO, UACSIND #### [facility] [address] [place] [address] Dr. Jose Elias Strong Nitrite Ql (U) Negative Normal NEGATIVE [facility] Comment on above: Performed By: #### U MICRO, UACSIND #### [facility] [address] [address] [address] Jose Elias Strong pH (U) 7.0 [pH] Normal 5-9 [facility] Comment on above: Performed By: #### U MICRO, UACSIND #### [facility] [address] [place] [address] Dr. Jose Elias Strong SPEC GRAVITY 1.020 Normal 1.005-<=1.025 [facility] Comment on above: Performed By: #### U MICRO, UACSIND #### [facility] [address] [place] [address] Dr. Jose Elias Strong UA PROTEIN 30 mg/dl Abnormal NEGATIVE/ TRACE [facility] Comment on above: Performed By: #### U MICRO, UACSIND #### [facility] [address] [place] [address] Dr. Jose Elias Strong UR MICRO IND INDICATED Normal [facility] Comment on above: Performed By: #### U MICRO, UACSIND #### [facility] [address] [place] [address] Dr. Jose Elias Strong Urobilinogen Qn (U) 0.2 {Mago'U}/dL Normal 0.2 - 1. 0 [facility] Comment on above: Performed By: #### U MICRO, UACSIND #### [facility] [address] [place] [address] Dr. Jose Elias Strong URINE MICROSCOPIC ONLYon BACTERIA NONE SEEN Normal NONE SEEN [facility] Comment on above: Performed By: #### U MICRO, UACSIND #### [facility] [address] [place] [address] Dr. Jose Elias Strong Bacteria identified Cx Nom (U) NOT INDICATED Normal [facility] Comment on above: Performed By: #### U MICRO, UACSIND #### [facility] [address] [place] [address] Dr. Jose Elias Strong CAST NONE SEEN Normal NONE SEEN [facility] Comment on above: Performed By: #### U MICRO, UACSIND #### [facility] [address] [place] [address] Dr. Jose Elias Strong Crystals LM Nom (Urine sed) NONE SEEN Normal NONE SEEN [facility] Comment on above: Performed By: #### U MICRO, UACSIND #### [facility] [address] [place] [address] Dr. Jose Elias Strong Epithelial cells LM Ql (Urine sed) NONE SEEN Normal NONE SEEN /RARE [facility] Comment on above: Performed By: #### U MICRO, UACSIND #### [facility] [address] [place] [address] Dr. Jose Elias Strong MUCOUS NONE SEEN Normal NONE SEEN [facility] Comment on above: Performed By: #### U MICRO, UACSIND #### [facility] [address] [address] [address] Jose Elias Strong RBC (U) [#/Vol] /uL Abnormal 0-2 [facility] Comment on above: Performed By: #### U MICRO, UACSIND #### [facility] [address] [address] [address] Jose Elias Strong WBC 0-2 Abnormal NONE SEEN [facility] Comment on above: Performed By: #### U MICRO, UACSIND #### [facility] [address] [address] [address] Jose Elias Strong CBC AUTO DIFFon 08-19-2021 BASO # 0.0 103/ul Normal 0.0-0.1 [facility] Comment on above: Performed By: #### T NS #### [facility] [address] [place] [address] Dr. Jose Elias Strong Basophils/100 WBC (Bld) 0.2 % Normal 0.2-2.0 [facility] Comment on above: Performed By: #### T NS #### [facility] [address] [address] [address] Jose Elias Strong EO # 0.1 103/ul Normal 0.0-0.7 [facility] Comment on above: Performed By: #### T NS #### [facility] [address] [place] [address] Dr. Jose Elias Strong Eosinophils/100 WBC (Bld) 0.7 % Critically low 0.9-7.0 [facility] Comment on above: Performed By: #### T NS #### [facility] [address] [address] [address] Jose Elias Strong Erythrocyte distribution width (RBC) [Ratio] 15.9 % Critically high 11.0-15.0 [facility] Comment on above: Performed By: #### T NS #### [facility] [address] [place] [address] Dr. Jose Elias Strong Hematocrit (Bld) [Volume fraction] 32.4 % Critically low 36.0-48.0 [facility] Comment on above: Performed By: #### T NS #### [facility] [address] [address] [address] Jose Elias Strong Hemoglobin (Bld) [Mass/Vol] 9.7 g/dL Critically low 12.0-16.0 [facility] Comment on above: Performed By: #### T NS #### [facility] [address] [address] [address] Jose Elias Strong IG # 0.19 10e3/ul Critically high 0.00-0.03 [facility] Comment on above: Performed By: #### T NS #### [facility] [address] [address] [address] Jose Elias Strong IG % 1.4 % Critically high 0.0-0.5 [facility] Comment on above: Performed By: #### T NS #### [facility] [address] [address] [address] Jose Elias Strong LYMPH # 1.9 103/ul Normal 1.2-3.8 [facility] Comment on above: Performed By: #### T NS #### [facility] [address] [place] [address] Dr. Jose Elias Strong Lymphocytes/100 WBC (Bld) 14.4 % Critically low 20.5-60.0 [facility] Comment on above: Performed By: #### T NS #### [facility] [address] [place] [address] Dr. Jose Elias Strong MANUAL DIFF REQ NO Normal [facility] Comment on above: Performed By: #### T NS #### [facility] [address] [address] [address] Jose Elias Strong MCH (RBC) [Entitic mass] 22.3 pg Critically low 26.7-34.0 [facility] Comment on above: Performed By: #### T NS #### [facility] [address] [address] [address] Jose Elias Strong MCHC (RBC) [Mass/Vol] 29.9 g/dL Normal 29.9-35.2 [facility] Comment on above: Performed By: #### T NS #### [facility] [address] [address] [address] Jose Elias Strong MCV (RBC) [Entitic vol] 74.5 fL Critically low 81.0-99.0 [facility] Comment on above: Performed By: #### T NS #### [facility] [address] [address] [address] Jose Elias Strong MONO # 1.4 103/ul Critically high 0.3-0.8 [facility] Comment on above: Performed By: #### T NS #### [facility] [address] [address] [address] Jose Elias Strong Monocytes/100 WBC (Bld) 10.1 % Normal 1.7-12.0 [facility] Comment on above: Performed By: #### T NS #### [facility] [address] [place] [address] Dr. Jose Elias Strong NEUT # 9.8 103/ul Critically high 1.4-6.5 [facility] Comment on above: Performed By: #### T NS #### [facility] [address] [place] [address] Dr. Jose Elias Strong Neutrophils/100 WBC (Bld) 73.2 % Normal 43.0-75.0 [facility] Comment on above: Performed By: #### T NS #### [facility] [address] [place] [address] Dr. Jose Elias Strong Platelet mean volume (Bld) [Entitic vol] 10.0 fL Normal 9.5-13.5 [facility] Comment on above: Performed By: #### T NS #### [facility] [address] [place] [address] Dr. Jose Elias Strong PLT 337 103/ul Normal 150-450 [facility] Comment on above: Performed By: #### T NS #### [facility] [address] [place] [address] Dr. Jose Elias Strong RBC 4.35 106/ul Normal 4.20-5.40 [facility] Comment on above: Performed By: #### T NS #### [facility] [address] [place] [address] Dr. Jose Elias Strong WBC 13.4 103/ul Critically high 4.0-11.0 [facility] Comment on above: Performed By: #### T NS #### [facility] [address] [place] [address] Dr. Jose Elias Strong Covid-19 PCR ([facility])on 08-03 SARS-CoV-2 (COVID-19) RNA [place]+probe Ql (Unsp spec) Not detected Normal NOT DETECTED [facility] Comment on above: Result Comment: When [...] for this test is supported by the [place] of Health and Human Service's declaration that [...] Performed By: #### C VDTBH #### [facility] [address] [place] [address] Dr. Jose Elias Strong TYPE AND SCREENon 08-19-2021 TYPE AND SCREEN Negative Normal [facility] Comment on above: Performed By: #### T NS #### [facility] [address] [place] [address] Dr. Jose Elias Strong GROUP B STREP CULTUREon 07-05 S. agalactiae Ag Ql (Unsp spec) Culture Observations: NEGATIVE FOR GROUP B STREPTOCOCCUS. Normal [facility] Comment on above: Performed By: #### G BSCX #### [facility] [address] [place] [address] Dr. Jose Elias Strong UA (CLEAN/CATCH) PHARMACY ORDER ENTRY TECHNICIAN/MICRO I F IND.on 06-28-2021 Bilirubin Ql (U) Negative Normal NEGATIVE [facility] Comment on above: Performed By: #### U ACSIND, UMICRO #### [facility] [address] [place] [address] Dr. Jose Elias Strong Clarity (U) CLEAR Normal CLEAR [facility] Comment on above: Performed By: #### U ACSIND, UMICRO #### [facility] [address] [address] [address] Jose Elias Strong Color (U) LT. YELLOW Normal YELLOW [facility] Comment on above: Performed By: #### U ACSIND, UMICRO #### [facility] [address] [place] [address] Dr. Jose Elias Strong Glucose Ql (U) Negative Normal NEGATIVE [facility] Comment on above: Performed By: #### U ACSIND, UMICRO #### [facility] [address] [place] [address] Dr. Jose Elias Strong Hemoglobin Ql (U) Negative Normal NEGATIVE [facility] Comment on above: Performed By: #### U ACSIND, UMICRO #### [facility] [address] [place] [address] Dr. Jose Elias Strong Ketones Ql (U) Negative Normal NEGATIVE [facility] Comment on above: Performed By: #### U ACSIND, UMICRO #### [facility] [address] [address] [address] Jose Elias Strong LEUKOCYTES TRACE Abnormal NEGATIVE [facility] Comment on above: Performed By: #### U ACSIND, UMICRO #### [facility] [address] [place] [address] Dr. Jose Elias Strong Nitrite Ql (U) Negative Normal NEGATIVE [facility] Comment on above: Performed By: #### U ACSIND, UMICRO #### [facility] [address] [place] [address] Dr. Jose Elias Strong pH (U) 6.5 [pH] Normal 5-9 [facility] Comment on above: Performed By: #### U ACSIND, UMICRO #### [facility] [address] [address] [address] Jose Elias Strong SPEC GRAVITY 1.015 Normal 1.005-<=1.025 [facility] Comment on above: Performed By: #### U ACSIND, UMICRO #### [facility] [address] [address] [address] Jose Elias Strong UA PROTEIN Negative Normal NEGATIVE/ TRACE [facility] Comment on above: Performed By: #### U ACSIND, UMICRO #### [facility] [address] [address] [address] Jose Elias Strong UR MICRO IND INDICATED Normal [facility] Comment on above: Performed By: #### U ACSIND, UMICRO #### [facility] [address] [place] [address] Dr. Jose Elias Strong Urobilinogen Qn (U) 0.2 {Mago'U}/dL Normal 0.2 - 1. 0 [facility] Comment on above: Performed By: #### U ACSIND, UMICRO #### [facility] [address] [place] [address] Dr. Jose Elias Strong URINE MICROSCOPIC ONLYon AMORPHOUS CRYSTALS FEW Normal [facility] Comment on above: Performed By: #### U ACSIND, UMICRO #### [facility] [address] [place] [address] Dr. Jose Elias Strong BACTERIA TRACE Abnormal NONE SEEN [facility] Comment on above: Performed By: #### U ACSIND, UMICRO #### [facility] [address] [place] [address] Dr. Jose Elias Strong Bacteria identified Cx Nom (U) NOT INDICATED Normal [facility] Comment on above: Performed By: #### U ACSIND, UMICRO #### [facility] [address] [address] [address] Jose Elias Strong CAST NONE SEEN Normal NONE SEEN [facility] Comment on above: Performed By: #### U ACSIND, UMICRO #### [facility] [address] [address] [address] Jose Elias Strong Crystals LM Nom (Urine sed) SEEN Abnormal NONE SEEN [facility] Comment on above: Performed By: #### U ACSIND, UMICRO #### [facility] [address] [place] [address] Dr. Jose Elias Strong Epithelial cells LM Ql (Urine sed) RARE Normal NONE SEEN /RARE [facility] Comment on above: Performed By: #### U ACSIND, UMICRO #### [facility] [address] [place] [address] Dr. Jose Elias Strong MUCOUS TRACE Abnormal NONE SEEN [facility] Comment on above: Performed By: #### U ACSIND, UMICRO #### [facility] [address] [place] [address] Dr. Jose Elias Strong RBC 0-2 Normal 0-2 [facility] Comment on above: Performed By: #### U ACSMICHAEL, UMICRO #### [facility] [address] [place] [address] Dr. Jose Elias Strong WBC 2-5 Abnormal NONE SEEN [facility] Comment on above: Performed By: #### U ACSMICHAEL, UMICRO #### [facility] [address] [place] [address] Dr. Jose Elias Strong CBC AUTO DIFFon 06-19-2021 BASO # 0.0 103/ul Normal 0.0-0.1 [facility] Comment on above: Performed By: #### C BC #### [facility] [address] [place] [address] Dr. Jose Elias Strong Basophils/100 WBC (Bld) 0.3 % Normal 0.2-2.0 [facility] Comment on above: Performed By: #### C BC #### [facility] [address] [place] [address] Dr. Jose Elias Strong EO # 0.2 103/ul Normal 0.0-0.7 [facility] Comment on above: Performed By: #### C BC #### [facility] [address] [place] [address] Dr. Jose Elias Strong Eosinophils/100 WBC (Bld) 2.0 % Normal 0.9-7.0 [facility] Comment on above: Performed By: #### C BC #### [facility] [address] [place] [address] Dr. Jose Elias tSrong Erythrocyte distribution width (RBC) [Ratio] 13.6 % Normal 11.0-15.0 [facility] Comment on above: Performed By: #### C BC #### [facility] [address] [place] [address] Dr. Jose Elias Strong Hematocrit (Bld) [Volume fraction] 29.4 % Critically low 36.0-48.0 [facility] Comment on above: Performed By: #### C BC #### [facility] [address] [place] [address] Dr. Jose Elias Strong Hemoglobin (Bld) [Mass/Vol] 9.5 g/dL Critically low 12.0-16.0 [facility] Comment on above: Performed By: #### C BC #### [facility] [address] [place] [address] Dr. Jose Elias Strong IG # 0.14 10e3/ul Critically high 0.00-0.03 [facility] Comment on above: Performed By: #### C BC #### [facility] [address] [place] [address] Dr. Jose Elias Strong IG % 1.4 % Critically high 0.0-0.5 [facility] Comment on above: Performed By: #### C BC #### [facility] [address] [place] [address] Dr. Jose Elias Strong LYMPH # 1.6 103/ul Normal 1.2-3.8 [facility] Comment on above: Performed By: #### C BC #### [facility] [address] [place] [address] Dr. Jose Elias Strong Lymphocytes/100 WBC (Bld) 15.5 % Critically low 20.5-60.0 [facility] Comment on above: Performed By: #### C BC #### [facility] [address] [place] [address] Dr. Jose Elias Strong MANUAL DIFF REQ NO Normal [facility] Comment on above: Performed By: #### C BC #### [facility] [address] [address] [address] Jose Elias Strong MCH (RBC) [Entitic mass] 26.8 pg Normal 26.7-34.0 [facility] Comment on above: Performed By: #### C BC #### [facility] [address] [address] [address] Jose Elias Strong MCHC (RBC) [Mass/Vol] 32.3 g/dL Normal 29.9-35.2 [facility] Comment on above: Performed By: #### C BC #### [facility] [address] [address] [address] Jose Elias Strong MCV (RBC) [Entitic vol] 82.8 fL Normal 81.0-99.0 [facility] Comment on above: Performed By: #### C BC #### [facility] [address] [place] [address] Dr. Jose Elias Strong MONO # 1.2 103/ul Critically high 0.3-0.8 [facility] Comment on above: Performed By: #### C BC #### [facility] [address] [address] [address] Jose Elias Strong Monocytes/100 WBC (Bld) 12.2 % Critically high 1.7-12.0 [facility] Comment on above: Performed By: #### C BC #### [facility] [address] [address] [address] Jose Elias Strong NEUT # 7.0 103/ul Critically high 1.4-6.5 [facility] Comment on above: Performed By: #### C BC #### [facility] [address] [address] [address] Jose Elias Strong Neutrophils/100 WBC (Bld) 68.6 % Normal 43.0-75.0 [facility] Comment on above: Performed By: #### C BC #### [facility] [address] [place] [address] Dr. Jose Elias Strong Platelet mean volume (Bld) [Entitic vol] 9.1 fL Critically low 9.5-13.5 [facility] Comment on above: Performed By: #### C BC #### [facility] [address] [address] [address] Jose Elias Strong PLT 309 103/ul Normal 150-450 [facility] Comment on above: Performed By: #### C BC #### [facility] [address] [address] [address] Jose Elias Strong RBC 3.55 106/ul Critically low 4.20-5.40 [facility] Comment on above: Performed By: #### C BC #### [facility] [address] [address] [address] Jose Elias Strong WBC 10.1 103/ul Normal 4.0-11.0 [facility] Comment on above: Performed By: #### C BC #### [facility] [address] [address] [address] Jose Elias Strong GLYCOHEMOGLOBIN A1Con 2021 ADA RECOMMENDATION ADA THERAPEUTIC TARGET 6.0 - 7.0 ACTION SUGGESTED > 7.0 Normal [facility] Comment on above: Performed By: #### T NS #### [facility] [address] [address] [address] Jose Elias Strong Glucose [Mass/Vol] 97 mg/dL Normal [facility] Comment on above: Performed By: #### T NS #### [facility] [address] [address] [address] Jose Elias Strong HbA1c (Bld) [Mass fraction] 5.0 % Normal <=6.0 [facility] Comment on above: Performed By: #### T NS #### [facility] [address] [address] [address] Jose Elias Strong Consenton 10-24-2020 Consent [id number] .00CD:127 Normal [facility] In office Testingon 10-25-19 In office Testing [id number] 1.00CD:127 Normal [facility] Registrationon 10-24-2020 Registration [id number] .00CD:127 [facility] Registration [id number] .00CD:127 [facility] Vital Signs Date Time Vital Sign Value Performing Clinician Leslie garrett 06-12-2023 11:02-0500 Body mass index (BMI) [Ratio] 30.26 kg/m2 Mary Venkat DO Work Phone: [facility] 06-12-2023 11:02-050 Body weight 77.47 kg Mary Venkat DO Work Phone: [facility] 06-12-2023 11:02-0500 Diastolic blood pressure 70 mm[Hg] Mary Venkat DO Work Phone: [facility] 06-12-2023 11:02-0500 Systolic blood pressure 118 mm[Hg] Mary Venkat DO Work Phone: [facility] Encounters Encounter Date Encounter Type Care Provider Facility Start: 06-24-2023 End: 06-24-2023 ambulatory ERIKA ROCIO Not Available Start: 06-12-2023 End: 06-12-2023 ambulatory MARY VENKAT Not Available Start: 06-12-2023 End: 06-12-2023 Office outpatient visit 15 minutes Mary Venkat DO Work Phone: [facility] Comment on above: Third trimester preg jun Start: 05-29-2023 End: 05-29-2023 ambulatory ERIKA ROCIO Not Available Start: 04-23-2023 End: 04-23-2023 ambulatory MARY VENKAT Not Available Start: 03-19-2023 End: 03-19-2023 ambulatory MARY VENKAT Not Available Start: 12-10-2022 ambulatory ALEXANDER Lucia [facility] Start: 11-19-2022 End: 11-19-2022 ambulatory YOMAIRA LAWLER [facility] Start: 10-28-2022 End: 10-29-2022 ambulatory ALEXANDER [facility] Start: 08-29-2022 ambulatory YOMAIRA LAWLER [facility] Start: 08-19-2022 End: 08-19-2022 Emergency [...] [facility] [address] [place] [id number] Erika Keith PA [address] [place] [address] [facility] Payers Date Payer Category Payer Medicaid [id number] 2022 Medicaid [employer] [place] [id number] 2022-Present [address] [place] [address] [id number] 1995 Unknown [id number] 2.16.840.1.405669.3.579.2.593 1995 Unknown [id number] 2.16.840.1.189413.3.579.2.593 1995 Unknown [id number] 2.16.840.1.798480.3.579.2.593 1995 Unknown [id number] 2.16.840.1.146426.3.579.2.593 1995 Unknown [id number] 2.16.840.1.376275.3.579.2.593 1995 Unknown [id number] 2.16.840.1.637885.3.579.2.593 1995 Unknown [id number] 2.16.840.1.289067.3.579.2.593 1995 Unknown [id number] 2.16.840.1.456405.3.579.2.593 1995 Unknown [id number] 2.16.840.1.372279.3.579.2.121 1995 Unknown [id number] 2.16.840.1.647043.3.579.2.121 1995 Unknown [id number] 2.16.840.1.970093.3.579.2.121 1995 Unknown [id number] 2.16.840.1.327801.3.579.2.1213 1995 Unknown [id number] 2.16.840.1.289644.3.579.2.1212 1995 Unknown [id number] 2.16.840.1.792424.3.579.2.1212 1995 Unknown [id number] 2.16.840.1.195487.3.579.2.1258 1995 Unknown [id number] 2.16.840.1.877803.3.579.2.1258 1995 Unknown [id number] 2.16.840.1.308903.3.579.2.1258 1995 Unknown [id number] 2.16.840.1.037975.3.579.2.1258 1995 Unknown [id number] 2.16.840.1.303110.3.579.2.9 1959 Unknown [id number] Social History Date Type Detail Facility Start: 10-21-2022 Tobacco smoking stat [facility] Never smoked tobacco [facility] [...] Acute asthma ([facility]) 12/03/2022 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 12/03/2022 Neck swelling 08/19/2022 Schizoaffective disorder ([facility]) 12/03/2022 Resolved Ambulatory Problems Diagnosis Date Noted No Resolved Ambulatory Problems Past Medical History: Diagnosis Date BMI 24.0-24.9, adult Depot contraception Encounter for IUD insertion Encounter for Papanicolaou cervical smear to confirm findings of recent normal smear following initial abnormal smear Intrauterine device surveillance Schizo-affective psychosis ([facility]) Urine test negative Family History Problem Relation [...] nursing note reviewed. Exam conducted with a corporate concierge present. Vitals: Estimated body mass index is [...] section and content) DATE CREATED AUTHOR 10/25/2020 [facility] DATE CREATED AUTHOR AUTHOR'S ORGANIZ ATION 06/11/2022 [facility] DATE CREATED AUTHOR AUTHOR'S ORGANIZ ATION 12/16/2022 [facility] DATE CREATED AUTHOR AUTHOR'S ORGANIZ ATION 07/01/2023 [facility] EPIC Reason for Visit (unrecogniz ed [...] BE BASED ON THE PRIMARY CLINICAL RECORDS. [facility] [employer] [facility]. provides no warranty or guarantee of the accuracy or completeness of information in this document.
== END 2023-07-08 19:52 | disposition home or self-care (01) ==
LOC: LAB 19:51
PROVIDERS: PCP Family Medicine; Visit Provider Obstetrics & Gynecology
DX: Z34.93 Encounter for supervision of normal pregnancy, unspecified, third trimester (principal)
CPT/HCPCS: 87081

== ENCOUNTER 2023-07-11 07:25 | Outpatient (OUT) | payer OTHER, SELFPAY ==
--- OUTSIDE RECORDS SUMMARY | 2023-07-11 07:35 | XMS_ITS | CCD ---
Author Name Unknown Address [address] [facility] [facility], [place] [address] [place] [address] Organization [facility] Care Team Providers Care Fern Cutter Name Role Phone VENKAT, DR HERNANDEZ Admitting Unavailable VENKAT, DR HERNANDEZ Attending Unavailable KARMA, DR LIZABETH Kauffman Primary Care Unavail able VENKAT, DR HERNANDEZ Admitting Unavailable VENKAT, DR HERNANDEZ Attending Unavailable KARMA, DR LIZABETH Kauffman Primary Care Unavail able VENKAT, DR HERNANDEZ Consulting Unavailable VENKAT, DR HERNANDEZ Admitting Unavailable VENKAT, DR HERNANDEZ Attending Unavailable KARMA, DR LIZABETH Kauffman Primary Care Unavail able EVNKAT, DR HERNANDEZ Consulting Unavailable VENKAT, DR HERNANDEZ [...] Attending Unavailable ROCIO, ERIKA Attending Unavailable VENKAT, AMRY Attending Unavailable Allergies Allergy Classification Reported Allergen(s) Allergy Type Date of Onset Reaction(s) Facility (2 sources) Latex; Translations: [LATEX] Drug allergy (disorder) 6 [facility] Repository (2 sources) Leucine; Translations: [NICKEL] Drug Allergy 7 [facility] Repository (2 sources) Penicillins; Translations: [PENICILLINS] Drug allergy (disorder) 7 [facility] Repository (1 source) Shellfish Drug allergy (disorder) 7 [facility] Repository (2 sources) Iodine; Translations: [IODINE] Drug Allergy 3 [facility] Repository (1 source) SHELLFISH CONTAINING PRODUCTS; Translations: [SHELLFISH CONTAINING PRODUCTS] Propensity to adverse reactions to drug (disorder) 3 [facility] Repository (1 source) VENOM-HONEY BEE; Translations: [VENOM-HONEY BEE] Propensity to adverse reactions to drug (disorder) 3 [facility] Repository (1 source) Amoxicillin Drug Allergy 3 Unknown [facility] Healthcare (1 source) Bee pollen Allergy to substance 3 Unknown [facility] Healthcare (1 source) Honey bee venom Propensity to adverse reactions 3 [facility] (1 source) Latex Allergy to substance 3 Unknown [facility] Healthcare (1 source) nickel sulfate Drug Allergy 3 [facility] (1 source) Penicillin G Drug Allergy 3 Unknown [facility] Healthcare (1 source) Shellfish-Derive d Products Drug Allergy 3 Unknown [facility] Medications Current Medications Medication Drug Class(es) Dates Sig (Normalized) Sig (Original) [id number] 200 actuat albuterol 0.09 mg/actuat metered dose [...] sexual mode of transmission complicating childbirth; Translations: [[facility] INF SEXL TRNSMS COMP CHILDBIRTH] Onset: 08-19-2021 Episodic Other complications of ; puerperium affecting management of mother (1 source) Other mental disorders complicating childbirth; Translations: [[facility] MENTAL D/O COMP CHILDBIRTH] Onset: 08-30-2021 Episodic Other complications of (4 sources) Other specified related conditions, third trimester; Translations: [[facility] SPEC PREG RELATED COND 3RD TRI] Onset: [...] UA Negative Negative - 4(70) +++ mg/dL [facility] Blood, UA Negative Negative - 50 Yovany/mcL [facility] Clarity, UA Clear [facility] Color, UA Yellow [facility] Glucose, UA Negative Negative - 2000(110) ++++ mg/dL [facility] Interpretation and review of laboratory results Abnormal [facility] Ketones, UA Negative Negative - 160(16) ++++ mg/dL [facility] Leukocytes, UA Positive Negative - 500+++ Jamey/mcL [facility] Nitrite, UA Negative Negative - Positive [facility] pH, UA 5.5 5 - 9 [facility] Protein, UA Positive Negative - 2000(20) ++++ mg/dL [facility] Spec Grav, UA 1.020 1 - 1.03 [facility] Urobilinogen, UA 1.0 0.2 - 12 mg/dL [facility] HCG, Urineon 11-19-2022 Beta HCG ( [...] for all patient populations. Testing performed at [facility], [address] [place] [address] 11371 Result Comment: Note : This test provides only a presumptive diagnosis for . If the HCG result is inconsistent with clinical evidence, results should be confirmed with an alternative method, such as a quantitative HCG. Basic Metabolic Profileon ANIO 11 mmol/L Low 12-20 [facility] Comment on above: Order Comment: Testi ng performed at [facility], [address] [place] [address] 04896 Calcium [Mass/Vol] 9.5 mg/dL Normal 8.4-10.2 [facility] Comment on above: Order Comment: Testi ng performed at [facility], [address] [place] [address] 15134 Chloride [Moles/Vol] 107 mmol/L Normal 98-107 [facility] Comment on above: Order Comment: Testi ng performed at [facility], [address] [place] [address] 68657 CO2 [Moles/Vol] 23.0 mmol/L Normal 22.0-30.0 [facility] Comment on above: Order Comment: Testi ng performed at [facility], [address] [place] [address] 62634 Creatinine [Mass/Vol] 0.7 mg/dL Normal 0.6-1.2 [facility] Comment on above: Order Comment: Testi ng performed at [facility], [address] [place] [address] 19547 Glucose [Mass/Vol] 118 mg/dL High 74-106 [facility] Comment on above: Order Comment: Testi ng performed at [facility], [address] [place] [address] 02378 Potassium [Moles/Vol] 4.1 mmol/L Normal 3.3-4.9 [facility] Comment on above: Order Comment: Testi ng performed at [facility], [address] [place] [address] 26720 Sodium [Moles/Vol] 137 mmol/L Normal 137-145 [facility] Comment on above: Order Comment: Testi ng performed at [facility], [address] [place] [address] 58833 Urea nitrogen [Mass/Vol] 14 mg/dL Normal 8-19 [facility] Comment on above: Order Comment: Testi ng performed at [facility], [address] [place] [address] 23199 CBC w/Auto Diffon 08-19-2022 Basophils (Bld) [#/Vol] [...] is no longer indicated. Testing performed at [facility], [address] [place] [address] 47835 Eosinophils (Bld) [#/Vol] 0.05 10*3/uL Normal 0.00-0.40 [...] is no longer indicated. Testing performed at [facility], [address] [place] [address] 75863 Erythrocyte distribution width (RBC) [Ratio] 13.3 % [...] is no longer indicated. Testing performed at [facility], [address] [place] [address] 82074 Hematocrit (Bld) [Volume fraction] 36.1 % Normal [...] is no longer indicated. Testing performed at [facility], [address] [place] [address] 55213 Hemoglobin (Bld) [Mass/Vol] 12.0 g/dL Normal 11.2-15.7 [...] is no longer indicated. Testing performed at [facility], [address] [place] [address] 19737 IG % (B) 0.6 % High 0.0-0.4 [...] is no longer indicated. Testing performed at [facility], [address] [place] [address] 46832 IG# (B) 0.14 10*3/uL High 0.00-0.00 [facility] [...] is no longer indicated. Testing performed at [facility], [address] [place], [place] [phone] Lymphocytes (Bld) [#/Vol] 0.81 10*3/uL Low 1.20-3.70 [...] is no longer indicated. Testing performed at [facility], [address] [place] [address] 88982 MCH (RBC) [Entitic mass] 28.5 pg Normal [...] is no longer indicated. Testing performed at [facility], [address] [place] [address] 57429 MCHC (RBC) [Mass/Vol] 33.2 g/dL Normal 32.2-35.5 [...] is no longer indicated. Testing performed at [facility], [address] [place] [address] 63390 MCV (RBC) [Entitic vol] 85.7 fL Normal [...] is no longer indicated. Testing performed at [facility], [address] [place] [address] 59883 Monocytes (Bld) [#/Vol] 1.81 10*3/uL High 0.20-0.90 [...] is no longer indicated. Testing performed at [facility], [address] [place] [address] 42372 Neutrophils (Bld) [#/Vol] 20.04 10*3/uL High 1.60-6.10 [...] is no longer indicated. Testing performed at [facility], [address] [place] [address] 21534 NRBC % (B) 0.0 /100{WBC} Normal 0.0-0.2 [...] is no longer indicated. Testing performed at [facility], [address] [place] [address] 15036 NRBC# (B) 0.00 10*3/uL Normal 0.00-0.00 [facility] [...] is no longer indicated. Testing performed at [facility], [address] [place] [address] 41817 Platelet mean volume (Bld) [Entitic vol] 9.9 [...] is no longer indicated. Testing performed at [facility], [address] [place] [address] 73114 Platelets (Bld) [#/Vol] 267 10*3/uL Normal 182-369 [...] is no longer indicated. Testing performed at [facility], [address] [place] [address] 30885 RBC (Bld) [#/Vol] 4.21 10*6/uL Normal 3.93-5.22 [facility] Comment on above: Order Comment: Immature [...] is no longer indicated. Testing performed at [facility], [address] [place] [address] 98262 RDW-SD (B) 41.1 fL Normal 36.4-46.3 [facility] [...] is no longer indicated. Testing performed at [facility], [address] [place] [address] 64834 WBC (Bld) [#/Vol] 22.9 10*3/uL High 4.0-10.0 [facility] Comment on above: Order Comment: Immature [...] is no longer indicated. Testing performed at [facility], [address] [place] [address] NECK WITHOUT CONTRASTon 0 08-19-2022 CT [...] for all patient populations. Testing performed at [facility], [address] [place] [address] 71755 Result Comment: The reported eGFR is based on a non- patient, for Americans multiply the result by 1.212. HCG, Serumon 08-19-2022 HCGS Negative Normal [facility] Comment on above: Order Comment: Testi ng performed at [facility], [address] [place] [address] 03146 Result Comment: Note : This test provides only a presumptive diagnosis for . If the HCG result is inconsistent with clinical evidence, results should be confirmed with an alternative method, such as a quantitative HCG. Man Diffon 08-19-2022 Eos, Diff 2 % Normal 0-6 [facility] Comment on above: Order Comment: Testi ng performed at [facility], [address] [place] [address] 87589 Lymphocytes/100 WBC (Bld) 3 % Low 20-53 [facility] Comment on above: Order Comment: Testi ng performed at [facility], [address] [place] [address] 67408 [place], Diff 6 % Normal 5-12 [facility] Comment on above: Order Comment: Testi ng performed at [facility], [address] [place] [address] 04803 Segs. Diff 89 % High 34-70 [facility] Comment on above: Order Comment: Testi ng performed at [facility], [place] [address] Slide Scan Normal Normal Normal [facility] Comment on above: Order Comment: Testi ng performed at [facility], [address] [place] [address] Basic Metabolic Profileon ANIO 12 mmol/L Normal 12-20 [facility] Comment on above: Order Comment: Testi ng performed at [facility], [place] [address] Calcium [Mass/Vol] 9.1 mg/dL Normal 8.4-10.2 [facility] Comment on above: Order Comment: Testi ng performed at [facility], [address] [place] [address] Chloride [Moles/Vol] 106 mmol/L Normal 98-107 [facility] Comment on above: Order Comment: Testi ng performed at [facility], [address] [place] [address] CO2 [Moles/Vol] 27.0 mmol/L Normal 22.0-30.0 [facility] Comment on above: Order Comment: Testi ng performed at [facility], [place] [address] Creatinine [Mass/Vol] 0.6 mg/dL Normal 0.6-1.2 [facility] Comment on above: Order Comment: Testi ng performed at [facility], [place] [address] Glucose [Mass/Vol] 95 mg/dL Normal 74-106 [facility] Comment on above: Order Comment: Testi ng performed at [facility], [address] [place] [address] Potassium [Moles/Vol] 4.1 mmol/L Normal 3.3-4.9 [facility] Comment on above: Order Comment: Testi ng performed at [facility], [address] [place] [address] Sodium [Moles/Vol] 141 mmol/L Normal 137-145 [facility] Comment on above: Order Comment: Testi ng performed at [facility], [place] [address] Urea nitrogen [Mass/Vol] 9 mg/dL Normal 8-19 [facility] Comment on above: Order Comment: Testi ng performed at [facility], [address] [place] [address] CBC w/Auto Diffon 08-08-2022 Basophils (Bld) [#/Vol] [...] is no longer indicated. Testing performed at [facility], [address] [place] [address] 05744 Basophils/100 WBC (Bld) 0.4 % Normal 0.1-1.2 [...] is no longer indicated. Testing performed at [facility], [address] [place] [address] 00601 Eosinophils (Bld) [#/Vol] 0.21 10*3/uL Normal 0.00-0.40 [...] is no longer indicated. Testing performed at [facility], [address] [place] [address] 35699 Eosinophils/100 WBC (Bld) 2.1 % Normal 0.7-5.8 [...] is no longer indicated. Testing performed at [facility], [address] [place] [address] 45394 Erythrocyte distribution width (RBC) [Ratio] 12.9 % [...] is no longer indicated. Testing performed at [facility], [address] [place] [address] Hematocrit (Bld) [Volume fraction] 35.4 % Normal [...] is no longer indicated. Testing performed at [facility], [address] [place], [place] [phone] Hemoglobin (Bld) [Mass/Vol] 11.2 g/dL Normal 11.2-15.7 [...] is no longer indicated. Testing performed at [facility], [address] [place] [address] 28960 IG % (B) 0.4 % Normal 0.0-0.4 [...] is no longer indicated. Testing performed at [facility], [address] [place] [address] 52378 IG# (B) 0.04 10*3/uL High 0.00-0.00 [facility] [...] is no longer indicated. Testing performed at [facility], [address] [place] [address] 81409 Lymphocytes (Bld) [#/Vol] 1.60 10*3/uL Normal 1.20-3.70 [...] is no longer indicated. Testing performed at [facility], [address] [place] [address] 93434 Lymphocytes/100 WBC (Bld) 16.3 % Low 19.3-51.7 [...] is no longer indicated. Testing performed at [facility], [address] [place] [address] 51161 MCH (RBC) [Entitic mass] 27.7 pg Normal [...] is no longer indicated. Testing performed at [facility], [address] [place] [address] 75224 MCHC (RBC) [Mass/Vol] 31.6 g/dL Low 32.2-35.5 [...] is no longer indicated. Testing performed at [facility], [address] [place] [address] 23212 MCV (RBC) [Entitic vol] 87.4 fL Normal [...] is no longer indicated. Testing performed at [facility], [address] [place] [address] 71665 Monocytes (Bld) [#/Vol] 0.88 10*3/uL Normal 0.20-0.90 [...] is no longer indicated. Testing performed at [facility], [address] [place] [address] 10941 Monocytes/100 WBC (Bld) 8.9 % Normal 4.7-12.5 [...] is no longer indicated. Testing performed at [facility], [address] [place] [address] 56417 Neutrophils (Bld) [#/Vol] 7.07 10*3/uL High 1.60-6.10 [...] is no longer indicated. Testing performed at [facility], [address] [place] [address] 52302 Neutrophils/100 WBC (Bld) 71.9 % High 34.0-71.1 [...] is no longer indicated. Testing performed at [facility], [address] [place] [address] 67311 NRBC % (B) 0.0 /100{WBC} Normal 0.0-0.2 [...] is no longer indicated. Testing performed at [facility], [address] [place] [address] 78206 NRBC# (B) 0.00 10*3/uL Normal 0.00-0.00 [facility] [...] is no longer indicated. Testing performed at [facility], [address] [place] [address] 25407 Platelet mean volume (Bld) [Entitic vol] 9.2 [...] is no longer indicated. Testing performed at [facility], [address] [place] [address] 03892 Platelets (Bld) [#/Vol] 315 10*3/uL Normal 182-369 [...] is no longer indicated. Testing performed at [facility], [address] [place] [address] 33103 RBC (Bld) [#/Vol] 4.05 10*6/uL Normal 3.93-5.22 [facility] Comment on above: Order Comment: Immature [...] is no longer indicated. Testing performed at [facility], [address] [place] [address] 92457 RDW-SD (B) 41.0 fL Normal 36.4-46.3 [facility] [...] is no longer indicated. Testing performed at [facility], [address] [place] [address] 92051 WBC (Bld) [#/Vol] 9.8 10*3/uL Normal 4.0-10.0 [facility] Comment on above: [...] is no longer indicated. Testing performed at [facility], [address] [place] [address] NECK WITHOUT CONTRASTon 0 08-08-2022 CT [...] for all patient populations. Testing performed at [facility], [address] [place] [address] 67315 Result Comment: The reported eGFR is based on a non- patient, for Americans multiply the result by 1.212. Pap IG, rfx Aptima HPV, rfx 16/18,45on 06-11-2022 . . Normal [facility] Comment on above: Result Comment: Perf ormed at: WB Performed By: #### P [id number] #### [facility] [address] [place], [place] [address] Dr. [facility] DIAGNOSIS: Comment Normal [facility] Comment on above: Result Comment: NEGA TIVE FOR INTRAEPITHELIAL LESION OR MALIGNANCY. Performed at: WB Performed By: #### P APHR2A #### [facility] [address] [place] [address] Dr. [facility] HPV Aptima Negative Normal Negative [facility] Comment on above: Result Comment: This nucleic acid amplification test detects fourteen high-risk HPV types (16,18,31,33,35,39,45,51,52,56,58,59,66,68) without differentiation. Performed at: =G Performed By: #### P APHR2A #### [facility] [address] [place] [address] [address] [facility] HPV Genotype Reflex Comment Normal [facility] Comment on above: Result Comment: Crit eria not met, HPV Genotype not performed. Performed at: WB Performed By: #### P APHR2A #### [facility] [address] [place] [address] Dr. [facility] Methodology: Comment Normal [facility] Comment on above: Result Comment: This liquid based ThinPrep(R) pap test was screened with the use of an image guided system. Performed at: WB Performed By: #### P APHR2A #### [facility] [address] [place] [address] Dr. [facility] Note: Comment Normal [facility] Comment on above: Result Comment: The [...] WB Performed By: #### P APHR2A #### [facility] [address] [place] [address] Dr. [facility] Performed by: Comment Normal [facility] Comment on above: Result Comment: Koffi Hutchinson, Field Reporter (ASCP) Performed at: WB Performed By: #### P APHR2A #### [facility] [address] [place] [address] Dr. [facility] Specimen adequacy: Comment Normal [facility] Comment on above: Result Comment: Sati sfactory for evaluation. Endocervical and/or squamous metaplastic cells (endocervical component) are present. Performed at: WB Performed By: #### P APHR2A #### [facility] [address] [place] [address] Dr. [facility] PAP ACOG PANEL 2: 21 to 29on 11-20-2021 . . Normal [facility] Comment on above: Performed By: #### [id number] #### [facility] [address] [place] [address] Dr. [facility] Age Gdln ACOG Testing - [facility] [place] [facility] Comment on above: Performed By: #### [id number] #### [facility] [address] [place] [address] Dr. [facility] DIAGNOSIS: Comment [facility] [place] [facility] Comment on above: Result Comment: NEGA TIVE FOR INTRAEPITHELIAL LESION OR MALIGNANCY. REACTIVE CELLULAR CHANGES AND/OR REPAIR ARE PRESENT. Performed By: #### [id number] #### [facility] [address] [place] [address] Dr. [facility] Electronically signed by: Comment Normal [facility] Comment on above: Result Comment: Melinda Patel MD, Pathologist Performed By: #### [id number] #### [facility] [address] [place] [address] Dr. [facility] Methodology: Comment [facility] [place] [facility] Comment on above: Result Comment: This liquid based ThinPrep(R) pap test was screened with the use of an image guided system. Performed By: #### [id number] #### [facility] [address] [place] [address] Dr. [facility] Note: Comment [facility] [place] [facility] Comment on above: Result Comment: The Pap smear is a screening test designed to aid in the detection of premalignant and malignant conditions of the uterine cervix. It is not a diagnostic procedure and should not be used as the sole means of detecting cervical cancer. Both false-positive and false-negative reports do occur. . Performed By: #### 4 [id number] #### [facility] [address] [place] [address] Dr. [facility] Performed by: Comment Normal [facility] Comment on above: Result Comment: Bruc e Den Romero, Field Reporter (ASCP) Performed By: #### [id number] #### [facility] [address] [place] [address] Dr. [facility] Reflex Criteria: Comment Normal [facility] Comment on above: Result Comment: The HPV DNA reflex criteria were not met with this specimen result therefore, no HPV testing was performed. . Performed By: #### [id number] #### [facility] [address] [place] [address] Dr. [facility] Specimen adequacy: Comment Normal [facility] Comment on above: Result Comment: Sati sfactory for evaluation. Endocervical and/or squamous metaplastic cells (endocervical component) are present. Performed By: #### 4 [id number] #### [facility] [address] [place] [address] Dr. [facility] CBC W MANUAL DIFFon 08-21-19 22 ANISOCYTOSIS 1+ Normal [facility] Comment on above: Performed By: #### T NS #### [facility] [address] [place] [address] Dr. [facility] ATYPICAL LYMPH # Normal [facility] Comment on above: Performed By: #### T NS #### [facility] [address] [place] [address] Dr. Jose Elias Strong ATYPICAL LYMPH % Normal [facility] Comment on above: Performed By: #### T NS #### [facility] [address] [place] [address] Dr. Jose Elias Strong BAND # 0.2 103/ul Normal 0.0-0.3 [facility] Comment on above: Performed By: #### T NS #### [facility] [address] [place] [address] Dr. Jose Elias Strong BAND % 1 % Normal 0-5 [facility] Comment on above: Performed By: #### T NS #### [facility] [address] [place] [address] Dr. Jose Elias Strong BASOM # 0.00 103/ul Normal 0.00-0.10 [facility] Comment on above: Performed By: #### T NS #### [facility] [address] [place] [address] Dr. Jose Elias Strong BASOM % 0.0 % Critically low 0.2-2.0 [facility] Comment on above: Performed By: #### T NS #### [facility] [address] [place] [address] Dr. Jose Elias Strong BLAST # Normal [facility] Comment on above: Performed By: #### T NS #### [facility] [address] [address] [address] Jose Elias Strong BLAST % Normal [facility] Comment on above: Performed By: #### T NS #### [facility] [address] [place] [address] Dr. Jose Elias Strong CORRECTED WBC Normal 4.0-11.0 [facility] Comment on above: Performed By: #### T NS #### [facility] [address] [place] [address] Dr. Jose Elias Strong EOS # 0.00 103/ul Normal 0.00-0.70 [facility] Comment on above: Performed By: #### T NS #### [facility] [address] [place] [address] Dr. Jose Elias Strong EOS% 0.0 % Critically low 0.9-7.0 [facility] Comment on above: Performed By: #### T NS #### [facility] [address] [place] [address] Dr. Jose Elias Strong HCT 27.5 % Critically low 36.0-48.0 [facility] Comment on above: Performed By: #### T NS #### [facility] [address] [place] [address] Dr. Jose Elias Strong HGB 8.1 g/dl Critically low 12.0-16.0 [facility] Comment on above: Performed By: #### T NS #### [facility] [address] [place] [address] Dr. Jose Elias Strong LYMPHM # 1.62 103/ul Normal 1.20-3.80 [facility] Comment on above: Performed By: #### T NS #### [facility] [address] [address] [address] Jose Elias Strong LYMPHM% 9.0 % Critically low 20.5-60.0 [facility] Comment on above: Performed By: #### T NS #### [facility] [address] [address] [address] Jose Elias Strong MCH 22.2 pg Critically low 26.7-34.0 [facility] Comment on above: Performed By: #### T NS #### [facility] [address] [address] [address] Jose Elias Strong MCHC 29.5 g/dl Critically low 29.9-35.2 [facility] Comment on above: Performed By: #### T NS #### [facility] [address] [place] [address] Dr. Jose Elias Strong MCV 75.3 fL Critically low 81.0-99.0 [facility] Comment on above: Performed By: #### T NS #### [facility] [address] [place] [address] Dr. Jose Elias Strong METAMYELOCYTE # Normal [facility] Comment on above: Performed By: #### T NS #### [facility] [address] [place] [address] Dr. Jose Elias Strong METAMYELOCYTE % Normal [facility] Comment on above: Performed By: #### T NS #### [facility] [address] [address] [address] Jose Elias Strong MONOM# 1.62 103/ul Critically high 0.30-0.80 [facility] Comment on above: Performed By: #### T NS #### [facility] [address] [address] [address] Jose Elias Strong MONOM% 9.0 % Normal 1.7-12.0 [facility] Comment on above: Performed By: #### T NS #### [facility] [address] [place] [address] Dr. Jose Elias Strong MPV 9.6 fL Normal 9.5-13.5 [facility] Comment on above: Performed By: #### T NS #### [facility] [address] [address] [address] Jose Elias Strong MYELOCYTE # Normal [facility] Comment on above: Performed By: #### T NS #### [facility] [address] [address] [address] Jose Elias Strong MYELOCYTE % Normal [facility] Comment on above: Performed By: #### T NS #### [facility] [address] [address] [address] Jose Elias Strong NRBC Normal [facility] Comment on above: Performed By: #### T NS #### [facility] [address] [address] [address] Jose Elias Strong PLT 308 103/ul Normal 150-450 [facility] Comment on above: Performed By: #### T NS #### [facility] [address] [address] [address] Jose Elias Strong RBC 3.65 106/ul Critically low 4.20-5.40 [facility] Comment on above: Performed By: #### T NS #### [facility] [address] [address] [address] Jose Elias Strong RDW 15.7 % Critically high 11.0-15.0 [facility] Comment on above: Performed By: #### T NS #### [facility] [address] [address] [address] Jose Elias Strong SEG # 14.58 103/ul Critically high 1.40-6.50 [facility] Comment on above: Performed By: #### T NS #### [facility] [address] [address] [address] Jose Elias Strong SEG % 81.0 % Critically high 43.0-75.0 [facility] Comment on above: Performed By: #### T NS #### [facility] [address] [address] [address] Jose Elias Strong WBC 18.0 103/ul Critically high 4.0-11.0 [facility] Comment on above: Performed By: #### T NS #### [facility] [address] [address] [address] Jose Elias Strong DRUG SCREEN RAPID (URINE)on 08-20-2021 AMP Negative Normal NEGATIVE [facility] Comment on above: Performed By: #### T NS #### [facility] [address] [address] [address] Jose Elias Strong BAR Negative Normal NEGATIVE [facility] Comment on above: Performed By: #### T NS #### [facility] [address] [address] [address] Jose Elias Strong BUP Negative Normal NEGATIVE [facility] Comment on above: Performed By: #### T NS #### [facility] [address] [place] [address] Dr. Jose Elias Strong BZO Negative Normal NEGATIVE [facility] Comment on above: Performed By: #### T NS #### [facility] [address] [place] [address] Dr. Jose Elias Strong PAXTON Negative Normal NEGATIVE [facility] Comment on above: Performed By: #### T NS #### [facility] [address] [place] [address] Dr. Jose Elias Strong CUT-OFFS SEE BELOW Normal [facility] Comment on above: Result Comment: AMP [...] ng/mL Performed By: #### T NS #### [facility] [address] [place] [address] Dr. Jose Elias Strong DRUG CUT HEADER DRUG CLASS TEST SYSTEM CUT-OFF CONCENTRATIONS ARE FOLLOWS: Normal [facility] Comment on above: Performed By: #### T NS #### [facility] [address] [address] [address] Jose Elias Strong mAMP Negative Normal NEGATIVE [facility] Comment on above: Performed By: #### T NS #### [facility] [address] [address] [address] Jose Elias Strong MTD Negative Normal NEGATIVE [facility] Comment on above: Performed By: #### T NS #### [facility] [address] [address] [address] Jose Elias Strong OPI Negative Normal NEGATIVE [facility] Comment on above: Performed By: #### T NS #### [facility] [address] [place] [address] Dr. Jose Elias Strong OXY Negative Normal NEGATIVE [facility] Comment on above: Performed By: #### T NS #### [facility] [address] [place] [address] Dr. Jose Elias Strong PCP Negative Normal NEGATIVE [facility] Comment on above: Performed By: #### T NS #### [facility] [address] [address] [address] Jose Elias Strong PPX Negative Normal NEGATIVE [facility] Comment on above: Performed By: #### T NS #### [facility] [address] [place] [address] Dr. Jose Elias Strong TCA Negative Normal NEGATIVE [facility] Comment on above: Performed By: #### T NS #### [facility] [address] [place] [address] Dr. Jose Elias Strong THC Negative Normal NEGATIVE [facility] Comment on above: Performed By: #### T NS #### [facility] [address] [place] [address] Dr. Jose Elais Strong UA (CLEAN/CATCH) R[employer] CROSSING SUPERVISOR/MICRO I F IND.on 08-20-2021 Bilirubin Ql (U) Negative Normal NEGATIVE [facility] Comment on above: Performed By: #### U MICRO, UACSIND #### [facility] [address] [place] [address] Dr. Jose Elias Strong Clarity (U) SL CLOUDY Abnormal CLEAR [facility] Comment on above: Performed By: #### U MICRO, UACSIND #### [facility] [address] [address] [address] Jose Elias Strong Color (U) RED Abnormal YELLOW [facility] Comment on above: Performed By: #### U MICRO, UACSIND #### [facility] [address] [address] [address] Jose Elias Strong Glucose Ql (U) Negative Normal NEGATIVE [facility] Comment on above: Performed By: #### U MICRO, UACSIND #### [facility] [address] [address] [address] Jose Elias Strong Hemoglobin Ql (U) LARGE Abnormal NEGATIVE [facility] Comment on above: Performed By: #### U MICRO, UACSIND #### [facility] [address] [place] [address] Dr. Jose Elias Strong Ketones Ql (U) 15 mg/dl Abnormal NEGATIVE [facility] Comment on above: Performed By: #### U MICRO, UACSIND #### [facility] [address] [place] [address] Dr. Jose Elias Strong LEUKOCYTES TRACE Abnormal NEGATIVE [facility] Comment on above: Performed By: #### U MICRO, UACSIND #### [facility] [address] [place] [address] Dr. Jose Elias Strong Nitrite Ql (U) Negative Normal NEGATIVE [facility] Comment on above: Performed By: #### U MICRO, UACSIND #### [facility] [address] [address] [address] Jose Elias Strong pH (U) 7.0 [pH] Normal 5-9 [facility] Comment on above: Performed By: #### U MICRO, UACSIND #### [facility] [address] [place] [address] Dr. Jose Elias Strong SPEC GRAVITY 1.020 Normal 1.005-<=1.025 [facility] Comment on above: Performed By: #### U MICRO, UACSIND #### [facility] [address] [place] [address] Dr. Jose Elias Strong UA PROTEIN 30 mg/dl Abnormal NEGATIVE/ TRACE [facility] Comment on above: Performed By: #### U MICRO, UACSIND #### [facility] [address] [place] [address] Dr. Jose Elias Strong UR MICRO IND INDICATED Normal [facility] Comment on above: Performed By: #### U MICRO, UACSIND #### [facility] [address] [place] [address] Dr. Jose Elias Strong Urobilinogen Qn (U) 0.2 {Mago'U}/dL Normal 0.2 - 1. 0 [facility] Comment on above: Performed By: #### U MICRO, UACSIND #### [facility] [address] [place] [address] Dr. Jose Elias Strong URINE MICROSCOPIC ONLYon BACTERIA NONE SEEN Normal NONE SEEN [facility] Comment on above: Performed By: #### U MICRO, UACSIND #### [facility] [address] [place] [address] Dr. Jose Elias Strong Bacteria identified Cx Nom (U) NOT INDICATED Normal [facility] Comment on above: Performed By: #### U MICRO, UACSIND #### [facility] [address] [place] [address] Dr. Jose Elias Strong CAST NONE SEEN Normal NONE SEEN [facility] Comment on above: Performed By: #### U MICRO, UACSIND #### [facility] [address] [place] [address] Dr. Jose Elias Strong Crystals LM Nom (Urine sed) NONE SEEN Normal NONE SEEN [facility] Comment on above: Performed By: #### U MICRO, UACSIND #### [facility] [address] [place] [address] Dr. Jose Elias Strong Epithelial cells LM Ql (Urine sed) NONE SEEN Normal NONE SEEN /RARE [facility] Comment on above: Performed By: #### U MICRO, UACSIND #### [facility] [address] [place] [address] Dr. Jose Elias Strong MUCOUS NONE SEEN Normal NONE SEEN [facility] Comment on above: Performed By: #### U MICRO, UACSIND #### [facility] [address] [address] [address] Jose Elias Strong RBC (U) [#/Vol] /uL Abnormal 0-2 [facility] Comment on above: Performed By: #### U MICRO, UACSIND #### [facility] [address] [address] [address] Jose Elias Strong WBC 0-2 Abnormal NONE SEEN [facility] Comment on above: Performed By: #### U MICRO, UACSIND #### [facility] [address] [address] [address] Jose Elias Strong CBC AUTO DIFFon 08-19-2021 BASO # 0.0 103/ul Normal 0.0-0.1 [facility] Comment on above: Performed By: #### T NS #### [facility] [address] [place] [address] Dr. Jose Elias Strong Basophils/100 WBC (Bld) 0.2 % Normal 0.2-2.0 [facility] Comment on above: Performed By: #### T NS #### [facility] [address] [address] [address] Jose Elias Strong EO # 0.1 103/ul Normal 0.0-0.7 [facility] Comment on above: Performed By: #### T NS #### [facility] [address] [place] [address] Dr. Jose Elias Strong Eosinophils/100 WBC (Bld) 0.7 % Critically low 0.9-7.0 [facility] Comment on above: Performed By: #### T NS #### [facility] [address] [address] [address] Jose Elias Strong Erythrocyte distribution width (RBC) [Ratio] 15.9 % Critically high 11.0-15.0 [facility] Comment on above: Performed By: #### T NS #### [facility] [address] [place] [address] Dr. Jose Elias Strong Hematocrit (Bld) [Volume fraction] 32.4 % Critically low 36.0-48.0 [facility] Comment on above: Performed By: #### T NS #### [facility] [address] [address] [address] Jose Elias Strong Hemoglobin (Bld) [Mass/Vol] 9.7 g/dL Critically low 12.0-16.0 [facility] Comment on above: Performed By: #### T NS #### [facility] [address] [address] [address] Jose Elias Strong IG # 0.19 10e3/ul Critically high 0.00-0.03 [facility] Comment on above: Performed By: #### T NS #### [facility] [address] [address] [address] Jose Elias Strong IG % 1.4 % Critically high 0.0-0.5 [facility] Comment on above: Performed By: #### T NS #### [facility] [address] [address] [address] Jose Elias Strong LYMPH # 1.9 103/ul Normal 1.2-3.8 [facility] Comment on above: Performed By: #### T NS #### [facility] [address] [place] [address] Dr. Jose Elias Strong Lymphocytes/100 WBC (Bld) 14.4 % Critically low 20.5-60.0 [facility] Comment on above: Performed By: #### T NS #### [facility] [address] [place] [address] Dr. Jose Elias Strong MANUAL DIFF REQ NO Normal [facility] Comment on above: Performed By: #### T NS #### [facility] [address] [address] [address] Jose Elias Strong MCH (RBC) [Entitic mass] 22.3 pg Critically low 26.7-34.0 [facility] Comment on above: Performed By: #### T NS #### [facility] [address] [address] [address] Jose Elias Strong MCHC (RBC) [Mass/Vol] 29.9 g/dL Normal 29.9-35.2 [facility] Comment on above: Performed By: #### T NS #### [facility] [address] [address] [address] Jose Elias Strong MCV (RBC) [Entitic vol] 74.5 fL Critically low 81.0-99.0 [facility] Comment on above: Performed By: #### T NS #### [facility] [address] [address] [address] Jose Elias Strong MONO # 1.4 103/ul Critically high 0.3-0.8 [facility] Comment on above: Performed By: #### T NS #### [facility] [address] [address] [address] Jose Elias Strong Monocytes/100 WBC (Bld) 10.1 % Normal 1.7-12.0 [facility] Comment on above: Performed By: #### T NS #### [facility] [address] [place] [address] Dr. Jose Elias Strong NEUT # 9.8 103/ul Critically high 1.4-6.5 [facility] Comment on above: Performed By: #### T NS #### [facility] [address] [place] [address] Dr. Jose Elias Strong Neutrophils/100 WBC (Bld) 73.2 % Normal 43.0-75.0 [facility] Comment on above: Performed By: #### T NS #### [facility] [address] [place] [address] Dr. Jose Elias Strong Platelet mean volume (Bld) [Entitic vol] 10.0 fL Normal 9.5-13.5 [facility] Comment on above: Performed By: #### T NS #### [facility] [address] [place] [address] Dr. Jose Elias Strong PLT 337 103/ul Normal 150-450 [facility] Comment on above: Performed By: #### T NS #### [facility] [address] [place] [address] Dr. Jose Elias Strong RBC 4.35 106/ul Normal 4.20-5.40 [facility] Comment on above: Performed By: #### T NS #### [facility] [address] [place] [address] Dr. Jose Elias Strong WBC 13.4 103/ul Critically high 4.0-11.[address] [facility] Comment on above: Performed By: #### T NS #### [facility] [address] [place] [address] Dr. Jose Elias Strong Covid-19 PCR ([facility])on 08-03 SARS-CoV-2 (COVID-19) RNA [place]+probe Ql (Unsp spec) Not detected Normal NOT DETECTED [facility] Comment on above: Result Comment: When [...] for this test is supported by the [place] of [employer] and [employer] Service's declaration that [...] used). Performed By: #### C VDTBH #### [facility] [address] [place] [address] Dr. Jose Elias Strong TYPE AND SCREENon 08-19-2021 TYPE AND SCREEN Negative Normal [facility] Comment on above: Performed By: #### T NS #### [facility] [address] [place] [address] Dr. Jose Elias Strong GROUP B STREP CULTUREon 07-05 S. agalactiae Ag Ql (Unsp spec) Culture Observations: NEGATIVE FOR GROUP B STREPTOCOCCUS. Normal [facility] Comment on above: Performed By: #### G BSCX #### [facility] [address] [place] [address] Dr. Jose Elias Strong UA (CLEAN/CATCH) RIVER CROSSING SUPERVISOR/MICRO I F IND.on 06-28-2021 Bilirubin Ql (U) Negative Normal NEGATIVE [facility] Comment on above: Performed By: #### U ACSIND, UMICRO #### [facility] [address] [place] [address] Dr. Jose Elias Strong Clarity (U) CLEAR Normal CLEAR [facility] Comment on above: Performed By: #### U ACSIND, UMICRO #### [facility] [address] [address] [address] Jose Elias Strong Color (U) LT. YELLOW Normal YELLOW [facility] Comment on above: Performed By: #### U ACSIND, UMICRO #### [facility] [address] [place] [address] Dr. Jose Elias Strong Glucose Ql (U) Negative Normal NEGATIVE [facility] Comment on above: Performed By: #### U ACSIND, UMICRO #### [facility] [address] [place] [address] Dr. Jose Elias Strong Hemoglobin Ql (U) Negative Normal NEGATIVE [facility] Comment on above: Performed By: #### U ACSIND, UMICRO #### [facility] [address] [place] [address] Dr. Jose Elias Strong Ketones Ql (U) Negative Normal NEGATIVE [facility] Comment on above: Performed By: #### U ACSIND, UMICRO #### [facility] [address] [address] [address] Jose Elias Strong LEUKOCYTES TRACE Abnormal NEGATIVE [facility] Comment on above: Performed By: #### U ACSIND, UMICRO #### [facility] [address] [place] [address] Dr. Jose Elias Strong Nitrite Ql (U) Negative Normal NEGATIVE [facility] Comment on above: Performed By: #### U ACSIND, UMICRO #### [facility] [address] [place] [address] Dr. Jose Elias Strong pH (U) 6.5 [pH] Normal 5-9 [facility] Comment on above: Performed By: #### U ACSIND, UMICRO #### [facility] [address] [address] [address] Jose Elias Strong SPEC GRAVITY 1.015 Normal 1.005-<=1.025 [facility] Comment on above: Performed By: #### U ACSIND, UMICRO #### [facility] [address] [address] [address] Jose Elias Strong UA PROTEIN Negative Normal NEGATIVE/ TRACE [facility] Comment on above: Performed By: #### U ACSIND, UMICRO #### [facility] [address] [address] [address] Jose Elias Strong UR MICRO IND INDICATED Normal [facility] Comment on above: Performed By: #### U ACSIND, UMICRO #### [facility] [address] [place] [address] Dr. Jose Elias Strong Urobilinogen Qn (U) 0.2 {Mago'U}/dL Normal 0.2 - 1. 0 [facility] Comment on above: Performed By: #### U ACSIND, UMICRO #### [facility] [address] [place] [address] Dr. Jose Elias Strong URINE MICROSCOPIC ONLYon AMORPHOUS CRYSTALS FEW Normal [facility] Comment on above: Performed By: #### U ACSIND, UMICRO #### [facility] [address] [place] [address] Dr. Jose Elias Strong BACTERIA TRACE Abnormal NONE SEEN [facility] Comment on above: Performed By: #### U ACSIND, UMICRO #### [facility] [address] [place] [address] Dr. Jose Elias Strong Bacteria identified Cx Nom (U) NOT INDICATED Normal [facility] Comment on above: Performed By: #### U ACSIND, UMICRO #### [facility] [address] [address] [address] Jose Elias Strong CAST NONE SEEN Normal NONE SEEN [facility] Comment on above: Performed By: #### U ACSIND, UMICRO #### [facility] [address] [address] [address] Jose Elias Strong Crystals LM Nom (Urine sed) SEEN Abnormal NONE SEEN [facility] Comment on above: Performed By: #### U ACSIND, UMICRO #### [facility] [address] [place] [address] Dr. Jose Elias Strong Epithelial cells LM Ql (Urine sed) RARE Normal NONE SEEN /RARE [facility] Comment on above: Performed By: #### U ACSIND, UMICRO #### [facility] [address] [place] [address] Dr. Jose Elias Strong MUCOUS TRACE Abnormal NONE SEEN [facility] Comment on above: Performed By: #### U ACSIND, UMICRO #### [facility] [address] [place] [address] Dr. Jose Elias Strong RBC 0-2 Normal 0-2 [facility] Comment on above: Performed By: #### U ACSMICHAEL, UMICRO #### [facility] [address] [place] [address] Dr. Jose Elias Strong WBC 2-5 Abnormal NONE SEEN [facility] Comment on above: Performed By: #### U ACSMICHAEL, UMICRO #### [facility] [address] [place] [address] Dr. Jose Elias Strong CBC AUTO DIFFon 06-19-2021 BASO # 0.0 103/ul Normal 0.0-0.1 [facility] Comment on above: Performed By: #### C BC #### [facility] [address] [place] [address] Dr. Jose Elias Strong Basophils/100 WBC (Bld) 0.3 % Normal 0.2-2.0 [facility] Comment on above: Performed By: #### C BC #### [facility] [address] [place] [address] Dr. Jose Elias Strong EO # 0.2 103/ul Normal 0.0-0.7 [facility] Comment on above: Performed By: #### C BC #### [facility] [address] [place] [address] Dr. Jose Elias Strong Eosinophils/100 WBC (Bld) 2.0 % Normal 0.9-7.0 [facility] Comment on above: Performed By: #### C BC #### [facility] [address] [place] [address] Dr. Jose Elias Strong Erythrocyte distribution width (RBC) [Ratio] 13.6 % Normal 11.0-15.0 [facility] Comment on above: Performed By: #### C BC #### [facility] [address] [place] [address] Dr. Jose Elias Strong Hematocrit (Bld) [Volume fraction] 29.4 % Critically low 36.0-48.0 [facility] Comment on above: Performed By: #### C BC #### [facility] [address] [place] [address] Dr. Jose Elias Strong Hemoglobin (Bld) [Mass/Vol] 9.5 g/dL Critically low 12.0-16.0 [facility] Comment on above: Performed By: #### C BC #### [facility] [address] [place] [address] Dr. Jose Elias Strong IG # 0.14 10e3/ul Critically high 0.00-0.03 [facility] Comment on above: Performed By: #### C BC #### [facility] [address] [place] [address] Dr. Jose Elias Strong IG % 1.4 % Critically high 0.0-0.5 [facility] Comment on above: Performed By: #### C BC #### [facility] [address] [place] [address] Dr. Jose Elias Strong LYMPH # 1.6 103/ul Normal 1.2-3.8 [facility] Comment on above: Performed By: #### C BC #### [facility] [address] [place] [address] Dr. Jose Elias Strong Lymphocytes/100 WBC (Bld) 15.5 % Critically low 20.5-60.0 [facility] Comment on above: Performed By: #### C BC #### [facility] [address] [place] [address] Dr. Jose Elias Strong MANUAL DIFF REQ NO Normal [facility] Comment on above: Performed By: #### C BC #### [facility] [address] [address] [address] Jose Elias Strong MCH (RBC) [Entitic mass] 26.8 pg Normal 26.7-34.0 [facility] Comment on above: Performed By: #### C BC #### [facility] [address] [address] [address] Jose Elias Strong MCHC (RBC) [Mass/Vol] 32.3 g/dL Normal 29.9-35.2 [facility] Comment on above: Performed By: #### C BC #### [facility] [address] [address] [address] Jose Elias Strong MCV (RBC) [Entitic vol] 82.8 fL Normal 81.0-99.0 [facility] Comment on above: Performed By: #### C BC #### [facility] [address] [place] [address] Dr. Jose Elias Strong MONO # 1.2 103/ul Critically high 0.3-0.8 [facility] Comment on above: Performed By: #### C BC #### [facility] [address] [address] [address] Jose Elias Strong Monocytes/100 WBC (Bld) 12.2 % Critically high 1.7-12.0 [facility] Comment on above: Performed By: #### C BC #### [facility] [address] [address] [address] Jose Elias Strong NEUT # 7.0 103/ul Critically high 1.4-6.5 [facility] Comment on above: Performed By: #### C BC #### [facility] [address] [address] [address] Jose Elias Strong Neutrophils/100 WBC (Bld) 68.6 % Normal 43.0-75.0 [facility] Comment on above: Performed By: #### C BC #### [facility] [address] [place] [address] Dr. Jose Elias Strong Platelet mean volume (Bld) [Entitic vol] 9.1 fL Critically low 9.5-13.5 [facility] Comment on above: Performed By: #### C BC #### [facility] [address] [address] [address] Jose Elias Strong PLT 309 103/ul Normal 150-450 [facility] Comment on above: Performed By: #### C BC #### [facility] [address] [address] [address] Jose Elias Strong RBC 3.55 106/ul Critically low 4.20-5.40 [facility] Comment on above: Performed By: #### C BC #### [facility] [address] [address] [address] Jose Elias Strong WBC 10.1 103/ul Normal 4.0-11.0 [facility] Comment on above: Performed By: #### C BC #### [facility] [address] [address] [address] Jose Elias Strong GLYCOHEMOGLOBIN A1Con 2021 ADA RECOMMENDATION ADA THERAPEUTIC TARGET 6.0 - 7.0 ACTION SUGGESTED > 7.0 Normal [facility] Comment on above: Performed By: #### T NS #### [facility] [address] [address] [address] Jose Elias Strong Glucose [Mass/Vol] 97 mg/dL Normal [facility] Comment on above: Performed By: #### T NS #### [facility] [address] [address] [address] Jose Elias Strong HbA1c (Bld) [Mass fraction] 5.0 % Normal <=6.0 [facility] Comment on above: Performed By: #### T NS #### [facility] [address] [address] [address] Jose Elias Strong Consenton 10-24-2020 Consent [id number] .00CD:127 Normal [facility] In office Testingon 10-25-19 In office Testing [id number]# 1.00CD:127 Normal [facility] Registrationon 10-24-2020 Registration [id number] .00CD:127 [facility] Registration [id number] .00CD:127 [facility] Vital Signs Date Time Vital Sign Value Performing Clinician Leslie garrett 06-12-2023 11:02-0500 Body mass index (BMI) [Ratio] 30.26 kg/m2 Mary Venkat DO Work Phone: [facility] 06-12-2023 11:02-050 Body weight 77.47 kg Mary Venkat DO Work Phone: [facility] 06-12-2023 11:02-0500 Diastolic blood pressure 70 mm[Hg] Mary Venkat DO Work Phone: [facility] 06-12-2023 11:02-0500 Systolic blood pressure 118 mm[Hg] Mary Venkat DO Work Phone: [facility] Healthcare Encounters Encounter Date Encounter Type Care Provider Facility Start: 06-24-2023 End: 06-24-2023 ambulatory ERIKA ROCIO Not Available Start: 06-12-2023 End: 06-12-2023 ambulatory MARY VENKAT Not Available Start: 06-12-2023 End: 06-12-2023 Office outpatient visit 15 minutes Mary Venkat DO Work Phone: [facility] Comment on above: Third trimester preg jun Start: 05-29-2023 End: 05-29-2023 ambulatory ERIKA ROCIO Not Available Start: 04-23-2023 End: 04-23-2023 ambulatory MARY VENKAT Not Available Start: 03-19-2023 End: 03-19-2023 ambulatory MARY VENKAT Not Available Start: 12-10-2022 ambulatory ALEXANDER Lucia [facility] Start: 11-19-2022 End: 11-19-2022 ambulatory YOMAIRA LAWLER [facility] Start: 10-28-2022 End: 10-29-2022 ambulatory ALEXANDER [facility] Start: 08-29-2022 ambulatory YOMAIRA LAWLER [facility] Start: 08-19-2022 End: 08-19-2022 Emergency department patient [...] Routine [facility] [address] [place] [id number] Erika Keith PA [address] [place] [address] [facility] Payers Date Payer Category Payer Medicaid [id number] 2022 Medicaid [employer] [place] [id number] 2022-Present [address] [place] [address] [id number] 1995 Unknown [id number] 2.16.840.1.204562.3.579.2.593 1995 Unknown [id number] 2.16.840.1.469607.3.579.2.593 1995 Unknown [id number] 2.16.840.1.468478.3.579.2.593 1995 Unknown [id number] 2.16.840.1.461055.3.579.2.593 1995 Unknown [id number] 2.16.840.1.853017.3.579.2.593 1995 Unknown [id number] 2.16.840.1.709175.3.579.2.593 1995 Unknown [id number] 2.16.840.1.811514.3.579.2.593 1995 Unknown [id number] 2.16.840.1.282530.3.579.2.593 1995 Unknown [id number] 2.16.840.1.684942.3.579.2.121 1995 Unknown [id number] 2.16.840.1.044850.3.579.2.121 1995 Unknown [id number] 2.16.840.1.930420.3.579.2.121 1995 Unknown [id number] 2.16.840.1.032129.3.579.2.1213 1995 Unknown [id number] 2.16.840.1.891356.3.579.2.1212 1995 Unknown [id number] 2.16.840.1.369600.3.579.2.1212 1995 Unknown [id number] 2.16.840.1.378892.3.579.2.1258 1995 Unknown [id number] 2.16.840.1.748936.3.579.2.1258 1995 Unknown [id number] 2.16.840.1.555618.3.579.2.1258 1995 Unknown [id number] 2.16.840.1.989064.3.579.2.1258 1995 Unknown [id number] 2.16.840.1.979706.3.579.2.9 1959 Unknown [id number] Social History Date Type Detail Facility Start: 10-21-2022 Tobacco smoking stat [facility] Never smoked tobacco [facility] [...] asthma ([facility]) 12/03/2022 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 12/03/2022 Neck swelling 08/19/2022 Schizoaffective disorder ([facility]) 12/03/2022 Resolved Ambulatory Problems Diagnosis Date Noted No Resolved Ambulatory Problems Past Medical History: Diagnosis Date BMI 24.0-24.9, adult Depot contraception Encounter for IUD insertion Encounter for Papanicolaou cervical smear to confirm findings of recent normal smear following initial abnormal smear Intrauterine device surveillance Schizo-affective psychosis ([facility]) Urine test negative Family History Problem Relation [...] nursing note reviewed. Exam conducted with a tanker truck driver present. Vitals: Estimated body mass index is [...] content) DATE CREATED AUTHOR 10/25/2020 [facility] DATE CREATED AUTHOR AUTHOR'S ORGANIZ ATION 06/11/2022 [facility] DATE CREATED AUTHOR AUTHOR'S ORGANIZ ATION 12/16/2022 [facility] DATE CREATED AUTHOR AUTHOR'S ORGANIZ ATION 07/01/2023 [facility] EPIC Reason for Visit (unrecogniz ed [...] BE BASED ON THE PRIMARY CLINICAL RECORDS. [facility]. provides no warranty or guarantee of the accuracy or completeness of information in this document.
[2023-07-11 20:35] VITALS: BP 122/79; PULSE 100; RESP 16; TEMP 36.1
== END 2023-07-11 21:00 | disposition home or self-care (01) ==
LOC: FBCO 20:32 → FBC 20:33
PROVIDERS: PCP Family Medicine; Visit Provider Obstetrics & Gynecology
DX: O36.63X0 Maternal care for excessive fetal growth, third trimester, not applicable or unspecified (principal); Z3A.00 Weeks of gestation of pregnancy not specified
CPT/HCPCS: 59025

== ENCOUNTER 2023-07-15 06:52 | Inpatient (IN) | payer OTHER, SELFPAY ==
[2023-07-15] VITALS (56 sets, daily range): BP systolic 80–124; BP diastolic 51–88; PULSE 61–107; RESP 8–31; TEMP 36.3–36.9; O2SAT 95–98
--- OUTSIDE RECORDS SUMMARY | 2023-07-15 06:56 | XMS_ITS | CCD ---
Author Name Unknown Address [address] [place] [address] Organization [facility] Care Team Providers Care Boom Master Name Role Phone VENKAT, DR HERNANDEZ Admitting [...] VENKAT, DR HERNANDEZ Admitting Unavailable VENKAT, DR HERNANEDZ Attending Unavailable KARMA, DR LIZABETH Kauffman Primary [...] Translations: [LATEX] Drug allergy (disorder) 6 [facility] Repository (2 sources) Leucine; Translations: [NICKEL] Drug Allergy 7 [facility] (2 sources) Penicillins; Translations: [PENICILLINS] Drug allergy (disorder) 7 [facility] (1 source) Shellfish Drug allergy (disorder) 7 [facility] (2 sources) Iodine; Translations: [IODINE] Drug Allergy 3 [facility] Repository (1 source) SHELLFISH CONTAINING PRODUCTS; Translations: [SHELLFISH CONTAINING PRODUCTS] Propensity to adverse reactions to drug (disorder) 3 [facility] Repository (1 source) VENOM-HONEY BEE; Translations: [VENOM-HONEY BEE] Propensity to adverse reactions to drug (disorder) 3 [facility] Repository (1 source) Amoxicillin Drug Allergy 3 Unknown [facility] (1 source) Bee pollen Allergy to substance 3 Unknown [facility] (1 source) Honey bee venom Propensity to adverse reactions 3 [facility] (1 source) Latex Allergy to substance 3 Unknown [facility] (1 source) nickel sulfate Drug Allergy 3 [facility] (1 source) Penicillin G Drug Allergy 3 Unknown [facility] (1 source) Shellfish-Derive d Products Drug Allergy 3 Unknown [facility] Medications Current Medications Medication Drug Class(es) Dates Sig (Normalized) Sig (Original) [id number] 200 actuat albuterol 0.09 mg/actuat metered dose [...] sexual mode of transmission complicating childbirth; Translations: [[facility] INF SEXL TRNSMS COMP CHILDBIRTH] Onset: 08-19-2021 Episodic Other complications of ; puerperium affecting management of mother (1 source) Other mental disorders complicating childbirth; Translations: [[facility] MENTAL D/O COMP CHILDBIRTH] Onset: 08-30-2021 Episodic Other complications of (4 sources) Other specified related conditions, third trimester; Translations: [[facility] SPEC PREG RELATED COND [...] Urobilinogen, UA 1.0 0.2 - 12 mg/dL [facility] HCG, Urineon 11-19-2022 Beta HCG ( test) Ql (U) Negative Normal [facility] Comment on above: Order Comment: [...] at [facility], [address] [place] [address] [id number] Result Comment: Note : This test provides only a presumptive diagnosis for . If the HCG result is inconsistent with clinical evidence, results should be confirmed with an alternative method, such as a quantitative HCG. Basic Metabolic Profileon ANIO 11 mmol/L Low 12-20 [facility] Comment on above: Order Comment: Testi ng performed at [facility], [address] [place] [address] 97309 Calcium [Mass/Vol] 9.5 mg/dL Normal 8.4-10.2 [facility] Comment on above: Order Comment: Testi ng performed at [facility], [address] [place] [address] 45556 Chloride [Moles/Vol] 107 mmol/L Normal 98-107 [facility] Comment on above: Order Comment: Testi ng performed at [facility], [address] [place] [address] 02906 CO2 [Moles/Vol] 23.0 mmol/L Normal 22.0-30.0 [facility] Comment on above: Order Comment: Testi ng performed at [facility], [address] [place] [address] 87627 Creatinine [Mass/Vol] 0.7 mg/dL Normal 0.6-1.2 [facility] Comment on above: Order Comment: Testi ng performed at [facility], [address] [place] [address] 53600 Glucose [Mass/Vol] 118 mg/dL High 74-106 [facility] Comment on above: Order Comment: Testi ng performed at [facility], [address] [place] [address] 30536 Potassium [Moles/Vol] 4.1 mmol/L Normal 3.3-4.9 [facility] Comment on above: Order Comment: Testi ng performed at [facility], [address] [place] [address] 88171 Sodium [Moles/Vol] 137 mmol/L Normal 137-145 [facility] Comment on above: Order Comment: Testi ng performed at [facility], [address] [place] [address] 52102 Urea nitrogen [Mass/Vol] 14 mg/dL Normal 8-19 [facility] Comment on above: Order Comment: Testi ng performed at [facility], [address] [place] [address] 35579 CBC w/Auto Diffon 08-19-2022 Basophils (Bld) [#/Vol] 0.04 10*3/uL Normal 0.00-0.10 [facility] Comment on above: Order Comment: [...] is no longer indicated. Testing performed at [facility], [address] [place] [address] 46250 Eosinophils (Bld) [#/Vol] 0.05 10*3/uL Normal 0.00-0.40 [facility] Comment on above: Order Comment: [...] is no longer indicated. Testing performed at [facility], [address] [place] [address] 33547 Erythrocyte distribution width (RBC) [Ratio] 13.3 % Normal 11.7-14.4 [facility] Comment on above: Order Comment: [...] is no longer indicated. Testing performed at [facility], [address] [place] [address] 32542 Hematocrit (Bld) [Volume fraction] 36.1 % Normal 34.1-44.9 [facility] Comment on above: Order Comment: [...] no longer indicated. Testing performed at [facility], [address] [place] [address] 62142 Hemoglobin (Bld) [Mass/Vol] 12.0 g/dL Normal 11.2-15.7 [facility] Comment on above: Order Comment: [...] is no longer indicated. Testing performed at [facility], [address] [place] [address] 50803 IG % (B) 0.6 % High 0.0-0.4 [facility] Comment on above: Order Comment: [...] no longer indicated. Testing performed at [facility], [address] [place] [address] 77833 IG# (B) 0.14 10*3/uL High 0.00-0.00 [facility] Comment on above: Order Comment: [...] no longer indicated. Testing performed at [facility], [address] [place], [place] [phone] Lymphocytes (Bld) [#/Vol] 0.81 10*3/uL Low 1.20-3.70 [facility] Comment on above: Order Comment: [...] no longer indicated. Testing performed at [facility], [address] [place] [address] 42785 MCH (RBC) [Entitic mass] 28.5 pg Normal 25.6-32.2 [facility] Comment on above: Order Comment: [...] no longer indicated. Testing performed at [facility], [address] [place] [address] 74407 MCHC (RBC) [Mass/Vol] 33.2 g/dL Normal 32.2-35.5 [facility] Comment on above: Order Comment: [...] no longer indicated. Testing performed at [facility], [address] [place] [address] 50754 MCV (RBC) [Entitic vol] 85.7 fL Normal 79.4-94.8 [facility] Comment on above: Order Comment: [...] no longer indicated. Testing performed at [facility], [address] [place] [address] 15182 Monocytes (Bld) [#/Vol] 1.81 10*3/uL High 0.20-0.90 [facility] Comment on above: Order Comment: [...] is no longer indicated. Testing performed at [facility], [address] [place] [address] 25492 Neutrophils (Bld) [#/Vol] 20.04 10*3/uL High 1.60-6.10 [facility] Comment on above: Order Comment: [...] is no longer indicated. Testing performed at [facility], [address] [place] [address] 23475 NRBC % (B) 0.0 /100{WBC} Normal 0.0-0.2 [facility] Comment on above: Order Comment: [...] no longer indicated. Testing performed at [facility], [address] [place] [address] 24016 NRBC# (B) 0.00 10*3/uL Normal 0.00-0.00 [facility] Comment on above: Order Comment: [...] no longer indicated. Testing performed at [facility], [address] [place] [address] 20976 Platelet mean volume (Bld) [Entitic vol] 9.9 fL Normal 9.4-12.3 [facility] Comment on above: Order Comment: [...] no longer indicated. Testing performed at [facility], [address] [place] [address] 96486 Platelets (Bld) [#/Vol] 267 10*3/uL Normal 182-369 [facility] Comment on above: Order Comment: [...] is no longer indicated. Testing performed at [facility], [address] [place] [address] 62515 RBC (Bld) [#/Vol] 4.21 10*6/uL Normal 3.93-5.22 [facility] Comment on above: Order [...] no longer indicated. Testing performed at [facility], [address] [place] [address] 28663 RDW-SD (B) 41.1 fL Normal 36.4-46.3 [facility] Comment on above: Order Comment: [...] is no longer indicated. Testing performed at [facility], [address] [place] [address] 45325 WBC (Bld) [#/Vol] 22.9 10*3/uL High 4.0-10.0 [facility] Comment on above: Order [...] is no longer indicated. Testing performed at [facility], [address] [place] [address] NECK WITHOUT CONTRASTon 0 08-19-2022 CT [...] Salinas MD On: 08/19/2022 1:25 PM Normal [facility] EST Glomerular Filtration Ra jude 08-19-2022 EAGFR (B) >60 Normal >60 [facility] Comment on above: Order Comment: The c alculated GFR uses the (IDMS)-traceable creatinine MDRD equation and is reported in mL/min/1.73 square meters. This formula is not recommended for use with individuals with unstable creatinine concentrations, extremes in muscle mass and/or body size, or alternative diets and may not be suitable for all patient populations. Testing performed at [facility], [address] [place] [address] 84245 Result Comment: The reported eGFR is based on a non- patient, for Americans multiply the result by 1.212. HCG, Serumon 08-19-2022 HCGS Negative Normal [facility] Comment on above: Order Comment: Testi ng performed at [facility], [address] [place] [address] 56187 Result Comment: Note : This test provides only a presumptive diagnosis for . If the HCG result is inconsistent with clinical evidence, results should be confirmed with an alternative method, such as a quantitative HCG. Man Diffon 08-19-2022 Eos, Diff 2 % Normal 0-6 [facility] Comment on above: Order Comment: Testi ng performed at [facility], [address] [place] [address] 18100 Lymphocytes/100 WBC (Bld) 3 % Low 20-53 [facility] Comment on above: Order Comment: Testi ng performed at [facility], [address] [place] [address] 88045 [place], Diff 6 % Normal 5-12 [facility] Comment on above: Order Comment: Testi ng performed at [facility], [address] [place] [address] 05941 Segs. Diff 89 % High 34-70 [facility] Comment on above: Order Comment: Testi ng performed at [facility], [place] [address] Slide Scan Normal Normal Normal [facility] Comment on above: Order Comment: Testi ng performed at [facility], [address] [place] [address] Basic Metabolic Profileon ANIO 12 mmol/L Normal 12-20 [facility] Comment on above: Order Comment: Testi ng performed at [facility], [place] [address] Calcium [Mass/Vol] 9.1 mg/dL Normal 8.4-10.2 [facility] Comment on above: Order Comment: [facility], [address] [place] [address] Chloride [Moles/Vol] 106 mmol/L Normal 98-107 [facility] Comment on above: Order Comment: [facility], [address] [place] [address] CO2 [Moles/Vol] 27.0 mmol/L Normal 22.0-30.0 [facility] Comment on above: Order Comment: Testi ng performed at [facility], [place] [address] Creatinine [Mass/Vol] 0.6 mg/dL Normal 0.6-1.2 [facility] Comment on above: Order Comment: Testi ng performed at [facility], [place] [address] Glucose [Mass/Vol] 95 mg/dL Normal 74-106 [facility] Comment on above: Order Comment: Testi ng performed at [facility], [address] [place] [address] Potassium [Moles/Vol] 4.1 mmol/L Normal 3.3-4.9 [facility] Comment on above: Order Comment: Testi ng performed at [facility], [address] [place] [address] Sodium [Moles/Vol] 141 mmol/L Normal 137-145 [facility] Comment on above: Order Comment: Testi ng performed at [facility], [place] [address] Urea nitrogen [Mass/Vol] 9 mg/dL Normal 8-19 [facility] Comment on above: Order Comment: Testi ng performed at [facility], [address] [place] [address] CBC w/Auto Diffon 08-08-2022 Basophils (Bld) [#/Vol] 0.04 10*3/uL Normal 0.00-0.10 [facility] Comment on above: Order Comment: [...] is no longer indicated. Testing performed at [facility], [address] [place] [address] 29635 Basophils/100 WBC (Bld) 0.4 % Normal 0.1-1.2 [facility] Comment on above: Order Comment: [...] no longer indicated. Testing performed at [facility], [address] [place] [address] 85854 Eosinophils (Bld) [#/Vol] 0.21 10*3/uL Normal 0.00-0.40 [facility] Comment on above: Order Comment: [...] no longer indicated. Testing performed at [facility], [address] [place] [address] 29525 Eosinophils/100 WBC (Bld) 2.1 % Normal 0.7-5.8 [facility] Comment on above: Order Comment: [...] is no longer indicated. Testing performed at [facility], [address] [place] [address] 20069 Erythrocyte distribution width (RBC) [Ratio] 12.9 % Normal 11.7-14.4 [facility] Comment on above: Order Comment: [...] no longer indicated. Testing performed at [facility], [address] [place] [address] Hematocrit (Bld) [Volume fraction] 35.4 % Normal 34.1-44.9 [facility] Comment on above: Order Comment: [...] no longer indicated. Testing performed at [facility], [address] [place], [place] [phone] Hemoglobin (Bld) [Mass/Vol] 11.2 g/dL Normal 11.2-15.7 [facility] Comment on above: Order Comment: [...] no longer indicated. Testing performed at [facility], [address] [place] [address] 62310 IG % (B) 0.4 % Normal 0.0-0.4 [facility] Comment on above: Order Comment: [...] no longer indicated. Testing performed at [facility], [address] [place] [address] 30199 IG# (B) 0.04 10*3/uL High 0.00-0.00 [facility] Comment on above: Order Comment: [...] no longer indicated. Testing performed at [facility], [address] [place] [address] 24786 Lymphocytes (Bld) [#/Vol] 1.60 10*3/uL Normal 1.20-3.70 [facility] Comment on above: Order Comment: [...] no longer indicated. Testing performed at [facility], [address] [place] [address] 63503 Lymphocytes/100 WBC (Bld) 16.3 % Low 19.3-51.7 [facility] Comment on above: Order Comment: [...] is no longer indicated. Testing performed at [facility], [address] [place] [address] 24273 MCH (RBC) [Entitic mass] 27.7 pg Normal 25.6-32.2 [facility] Comment on above: Order Comment: [...] is no longer indicated. Testing performed at [facility], [address] [place] [address] 96193 MCHC (RBC) [Mass/Vol] 31.6 g/dL Low 32.2-35.5 [facility] Comment on above: Order Comment: [...] no longer indicated. Testing performed at [facility], [address] [place] [address] 35905 MCV (RBC) [Entitic vol] 87.4 fL Normal 79.4-94.8 [facility] Comment on above: Order Comment: [...] no longer indicated. Testing performed at [facility], [address] [place] [address] 23760 Monocytes (Bld) [#/Vol] 0.88 10*3/uL Normal 0.20-0.90 [facility] Comment on above: Order Comment: [...] no longer indicated. Testing performed at [facility], [address] [place] [address] 52635 Monocytes/100 WBC (Bld) 8.9 % Normal 4.7-12.5 [facility] Comment on above: Order Comment: [...] is no longer indicated. Testing performed at [facility], [address] [place] [address] 10112 Neutrophils (Bld) [#/Vol] 7.07 10*3/uL High 1.60-6.10 [facility] Comment on above: Order Comment: [...] no longer indicated. Testing performed at [facility], [address] [place] [address] 54774 Neutrophils/100 WBC (Bld) 71.9 % High 34.0-71.1 [facility] Comment on above: Order Comment: [...] no longer indicated. Testing performed at [facility], [address] [place] [address] 75100 NRBC % (B) 0.0 /100{WBC} Normal 0.0-0.2 [facility] Comment on above: Order Comment: [...] is no longer indicated. Testing performed at [facility], [address] [place] [address] 33172 NRBC# (B) 0.00 10*3/uL Normal 0.00-0.00 [facility] Comment on above: Order Comment: [...] no longer indicated. Testing performed at [facility], [address] [place] [address] 46753 Platelet mean volume (Bld) [Entitic vol] 9.2 fL Low 9.4-12.3 [facility] Comment on above: Order Comment: [...] no longer indicated. Testing performed at [facility], [address] [place] [address] 72077 Platelets (Bld) [#/Vol] 315 10*3/uL Normal 182-369 [facility] Comment on above: Order Comment: [...] no longer indicated. Testing performed at [facility], [address] [place] [address] 32779 RBC (Bld) [#/Vol] 4.05 10*6/uL Normal 3.93-5.22 [facility] Comment on above: Order [...] no longer indicated. Testing performed at [facility], [address] [place] [address] 17375 RDW-SD (B) 41.0 fL Normal 36.4-46.3 [facility] Comment on above: Order Comment: [...] no longer indicated. Testing performed at [facility], [address] [place] [address] 81910 WBC (Bld) [#/Vol] 9.8 10*3/uL Normal 4.0-10.0 [facility] Comment on above: Order Comment: Immature [...] no longer indicated. Testing performed at [facility], [address] [place] [address] NECK WITHOUT CONTRASTon 0 08-08-2022 CT [...] Schultz MD On: 08/08/2022 4:07 PM Normal [facility] EST Glomerular Filtration Ra jude 08-08-2022 EAGFR (B) >60 Normal >60 [facility] Comment on above: Order Comment: The c alculated GFR uses the (IDMS)-traceable creatinine MDRD equation and is reported in mL/min/1.73 square meters. This formula is not recommended for use with individuals with unstable creatinine concentrations, extremes in muscle mass and/or body size, or alternative diets and may not be suitable for all patient populations. Testing performed at [facility], [address] [place] [address] 76246 Result Comment: The reported eGFR is based on a non- patient, for Americans multiply the result by 1.212. Pap IG, rfx Aptima HPV, rfx 16/18,45on 06-11-2022 . . Normal [facility] Comment on above: Result Comment: Perf ormed at: WB Performed By: #### P APHR2A #### [facility] [address] [place], [place] [address] Dr. [facility] DIAGNOSIS: Comment Normal [facility] Comment on above: Result Comment: NEGA TIVE FOR INTRAEPITHELIAL LESION OR MALIGNANCY. Performed at: WB Performed By: #### P APHR2A #### [facility] [address] [place] [address] Dr. [facility] HPV Aptima Negative Normal Negative [facility] Comment on above: Result Comment: This nucleic acid amplification test detects fourteen high-risk HPV types (16,18,31,33,35,39,45,51,52,56,58,59,66,68) without differentiation. Performed at: =G Performed By: #### P APHR2A #### [facility] [address] [place] [address] [address] [facility] HPV Genotype Reflex Comment Normal [facility] Comment on above: Result Comment: Crit eria not met, HPV Genotype not performed. Performed at: WB Performed By: #### P APHR2A #### [facility] [address] [place] [address] Dr. [facility] Methodology: Comment Normal [facility] Comment on above: Result Comment: This liquid based ThinPrep(R) pap test was screened with the use of an image guided system. Performed at: WB Performed By: #### P APHR2A #### [facility] [address] [place] [address] Dr. Jose [facility] Note: Comment Normal [facility] Comment on above: Result Comment: The [...] WB Performed By: #### P APHR2A #### [facility] [address] [place] [address] Dr. Jose [facility] Performed by: Comment Normal [facility] Comment on above: Result Comment: Koffi Hutchinson, Solder Sprayer (ASCP) Performed at: WB Performed By: #### P APHR2A #### [facility] [address] [place] [address] Dr. Jose [facility] Specimen adequacy: Comment Normal [facility] Comment on above: Result Comment: Sati sfactory for evaluation. Endocervical and/or squamous metaplastic cells (endocervical component) are present. Performed at: WB Performed By: #### P APHR2A #### [facility] [address] [place] [address] Dr. Jose [facility]as [facility] PAP ACOG PANEL 2: 21 to 29on 11-20-2021 . . Normal [facility] Comment on above: Performed By: #### [id number] #### [facility] [address] [place] [address] Dr. Jose Elias Strong Age Gdln ACOG Testing - [facility] Comment on above: Performed By: #### [id number] #### [facility] [address] [place] [address] Dr. Jose Elias Strong DIAGNOSIS: Comment [facility] Comment on above: Result Comment: NEGA TIVE FOR INTRAEPITHELIAL LESION OR MALIGNANCY. REACTIVE CELLULAR CHANGES AND/OR REPAIR ARE PRESENT. Performed By: #### [id number] #### [facility] [address] [place] [address] Dr. Jose Elias Strong Electronically signed by: Comment Normal [facility] Comment on above: Result Comment: Melinda Patel MD, Pathologist Performed By: #### [id number] #### [facility] [address] [place] [address] Dr. Jose Elias Strong Methodology: Comment [facility] Comment on above: Result Comment: This liquid based ThinPrep(R) pap test was screened with the use of an image guided system. Performed By: #### [id number] #### [facility] [address] [place] [address] Dr. Jose Elias Strong Note: Comment [facility] Comment on above: Result Comment: The Pap smear is a screening test designed to aid in the detection of premalignant and malignant conditions of the uterine cervix. It is not a diagnostic procedure and should not be used as the sole means of detecting cervical cancer. Both false-positive and false-negative reports do occur. . Performed By: #### [id number] #### [facility] [address] [place] [address] Dr. Jose Elias Strong Performed by: Comment Normal [facility] Comment on above: Result Comment: Bruc e Den Romero, Solder Sprayer (ASCP) Performed By: #### [id number] #### [facility] [address] [place] [address] Dr. Jose Elias Strong Reflex Criteria: Comment Normal [facility] Comment on above: Result Comment: The HPV DNA reflex criteria were not met with this specimen result therefore, no HPV testing was performed. . Performed By: #### [id number] #### [facility] [address] [place] [address] Dr. Jose Elias Strong Specimen adequacy: Comment Normal [facility] Comment on above: Result Comment: Sati sfactory for evaluation. Endocervical and/or squamous metaplastic cells (endocervical component) are present. Performed By: #### [id number] #### [facility] [address] [place] [address] Dr. Jose Elias Strong CBC W MANUAL DIFFon 08-21-19 22 ANISOCYTOSIS 1+ Normal [facility] Comment on above: Performed By: #### T NS #### [facility] [address] [place] [address] Dr. Jose Elias Strong ATYPICAL LYMPH # Normal [facility] Comment on above: Performed By: #### T NS #### [facility] [address] [place] [address] Dr. Jose Elias Strong ATYPICAL LYMPH % Normal [facility] Comment on above: Performed By: #### T NS #### [facility] [address] [place] [address] Dr. Jose Elias Strong BAND # 0.2 103/ul Normal 0.0-0.[address] [facility] Comment on above: Performed By: #### T NS #### [facility] [address] [place] [address] Dr. Jose Elias Strong BAND % 1 % Normal 0-[address] [facility] Comment on above: Performed By: #### T NS #### [facility] [address] [place] [address] Dr. Jose Elias Strong BASOM # 0.00 103/ul Normal 0.00-0.[address] [facility] Comment on above: Performed By: #### T NS #### [facility] [address] [place] [address] Dr. Jose Elias Strong BASOM % 0.0 % Critically low 0.2-2.0 [facility] Comment on above: Performed By: #### T NS #### [facility] [address] [place] [address] Dr. Jose Elias Strong BLAST # Normal [facility] Comment on above: Performed By: #### T NS #### [facility] [address] [address] [address] Jose Elias Strong BLAST % Normal [facility] Comment on above: Performed By: #### T NS #### [facility] [address] [place] [address] Dr. Jose Elias Strong CORRECTED WBC Normal 4.0-11.[address] [facility] Comment on above: Performed By: #### T NS #### [facility] [address] [place] [address] Dr. Jose Elias Strong EOS # 0.00 103/ul Normal 0.00-0.[address] [facility] Comment on above: Performed By: #### T NS #### [facility] [address] [place] [address] Dr. Jose Elias Strong EOS% 0.0 % Critically low 0.9-7.0 [facility] Comment on above: Performed By: #### T NS #### [facility] [address] [place] [address] Dr. Jose Elias Strong HCT 27.5 % Critically low 36.0-48.0 [facility] Comment on above: Performed By: #### T NS #### [facility] [address] [place] [address] Dr. Jose Elias Strong HGB 8.1 g/dl Critically low 12.0-16.0 [facility] Comment on above: Performed By: #### T NS #### [facility] [address] [place] [address] Dr. Jose Elias Strong LYMPHM # 1.62 103/ul Normal 1.20-3.[address] [facility] Comment on above: Performed By: #### T NS #### [facility] [address] [address] [address] Jose Elias Strong LYMPHM% 9.0 % Critically low 20.5-60.0 [facility] Comment on above: Performed By: #### T NS #### [facility] [address] [address] [address] Jose Elias Strong MCH 22.2 pg Critically low 26.7-34.0 [facility] Comment on above: Performed By: #### T NS #### [facility] [address] [address] [address] Jose Elias Strong MCHC 29.5 g/dl Critically low 29.9-35.2 [facility] Comment on above: Performed By: #### T NS #### [facility] [address] [place] [address] Dr. Jose Elias Strong MCV 75.3 fL Critically low 81.0-99.0 [facility] Comment on above: Performed By: #### T NS #### [facility] [address] [place] [address] Dr. Jose Elias Strong METAMYELOCYTE # Normal [facility] Comment on above: Performed By: #### T NS #### [facility] [address] [place] [address] Dr. Jose Elias Strong METAMYELOCYTE % Normal [facility] Comment on above: Performed By: #### T NS #### [facility] [address] [address] [address] Jose Elias Strong MONOM# 1.62 103/ul Critically high 0.30-0.80 [facility] Comment on above: Performed By: #### T NS #### [facility] [address] [address] [address] Jose Elias Strong MONOM% 9.0 % Normal 1.7-12.[address] [facility] Comment on above: Performed By: #### T NS #### [facility] [address] [place] [address] Dr. Jose Elias Strong MPV 9.6 fL Normal 9.5-13.5 [facility] Comment on above: Performed By: #### T NS #### [facility] [address] [address] [address] Jose Elias Strong MYELOCYTE # Normal [facility] Comment on above: Performed By: #### T NS #### [facility] [address] [address] [address] Jose Elias Strong MYELOCYTE % Normal [facility] Comment on above: Performed By: #### T NS #### [facility] [address] [address] [address] Jose Elias Strong NRBC Normal [facility] Comment on above: Performed By: #### T NS #### [facility] [address] [address] [address] Jose Elias Strong PLT 308 103/ul Normal 150-[address] [facility] Comment on above: Performed By: #### T NS #### [facility] [address] [address] [address] Jose Elias Strong RBC 3.65 106/ul Critically low 4.20-5.40 [facility] Comment on above: Performed By: #### T NS #### [facility] [address] [address] [address] Jose Elias Strong RDW 15.7 % Critically high 11.0-15.0 [facility] Comment on above: Performed By: #### T NS #### [facility] [address] [address] [address] Jose Elias Strong SEG # 14.58 103/ul Critically high 1.40-6.50 [facility] Comment on above: Performed By: #### T NS #### [facility] [address] [address] [address] Jose Elias Strong SEG % 81.0 % Critically high 43.0-75.0 [facility] Comment on above: Performed By: #### T NS #### [facility] [address] [address] [address] Jose Elias Strong WBC 18.0 103/ul Critically high 4.0-11.0 [facility] Comment on above: Performed By: #### T NS #### [facility] [address] [address] [address] Jose Elias Strong DRUG SCREEN RAPID (URINE)on 08-20-2021 AMP Negative Normal NEGATIVE [facility] Comment on above: Performed By: #### T NS #### [facility] [address] [address] [address] Jose Elias Strong BAR Negative Normal NEGATIVE [facility] Comment on above: Performed By: #### T NS #### [facility] [address] [address] [address] Jose Elias Strong BUP Negative Normal NEGATIVE [facility] Comment on above: Performed By: #### T NS #### [facility] [address] [place] [address] Dr. Jose Elias Strong BZO Negative Normal NEGATIVE [facility] Comment on above: Performed By: #### T NS #### [facility] [address] [place] [address] Dr. Jose Elias Strong PAXTON Negative Normal NEGATIVE [facility] Comment on above: Performed By: #### T NS #### [facility] [address] [place] [address] Dr. Jose Elias Strong CUT-OFFS SEE BELOW Normal [facility] Comment on above: Result Comment: AMP [...] ng/mL Performed By: #### T NS #### [facility] [address] [place] [address] Dr. Jose Elias Strong DRUG CUT HEADER DRUG CLASS TEST SYSTEM CUT-OFF CONCENTRATIONS ARE FOLLOWS: Normal [facility] Comment on above: Performed By: #### T NS #### [facility] [address] [address] [address] Jose Elias Strong mAMP Negative Normal NEGATIVE [facility] Comment on above: Performed By: #### T NS #### [facility] [address] [address] [address] Jose Elias Strong MTD Negative Normal NEGATIVE [facility] Comment on above: Performed By: #### T NS #### [facility] [address] [address] [address] Jose Elias Strong OPI Negative Normal NEGATIVE [facility] Comment on above: Performed By: #### T NS #### [facility] [address] [place] [address] Dr. Jose Elias Strong OXY Negative Normal NEGATIVE [facility] Comment on above: Performed By: #### T NS #### [facility] [address] [place] [address] Dr. Jose Elias Strong PCP Negative Normal NEGATIVE [facility] Comment on above: Performed By: #### T NS #### [facility] [address] [address] [address] Jose Elias Strong PPX Negative Normal NEGATIVE [facility] Comment on above: Performed By: #### T NS #### [facility] [address] [place] [address] Dr. Jose Elias Strong TCA Negative Normal NEGATIVE [facility] Comment on above: Performed By: #### T NS #### [facility] [address] [place] [address] Dr. Jose Elias Strong THC Negative Normal NEGATIVE [facility] Comment on above: Performed By: #### T NS #### [facility] [address] [place] [address] Dr. Jose Elias Strong UA (CLEAN/CATCH) [employer] CARETAKER/MICRO I F IND.on 08-20-2021 Bilirubin Ql (U) Negative Normal NEGATIVE [facility] Comment on above: Performed By: #### U MICRO, UACSIND #### [facility] [address] [place] [address] Dr. Jose Elias Strong Clarity (U) SL CLOUDY Abnormal CLEAR [facility] Comment on above: Performed By: #### U MICRO, UACSIND #### [facility] [address] [address] [address] Jose Elias Strong Color (U) RED Abnormal YELLOW [facility] Comment on above: Performed By: #### U MICRO, UACSIND #### [facility] [address] [address] [address] Jose Elias Strong Glucose Ql (U) Negative Normal NEGATIVE [facility] Comment on above: Performed By: #### U MICRO, UACSIND #### [facility] [address] [address] [address] Jose Elias Strong Hemoglobin Ql (U) LARGE Abnormal NEGATIVE [facility] Comment on above: Performed By: #### U MICRO, UACSIND #### [facility] [address] [place] [address] Dr. Jose Elias Strong Ketones Ql (U) 15 mg/dl Abnormal NEGATIVE [facility] Comment on above: Performed By: #### U MICRO, UACSIND #### [facility] [address] [place] [address] Dr. Jose Elias Strong LEUKOCYTES TRACE Abnormal NEGATIVE [facility] Comment on above: Performed By: #### U MICRO, UACSIND #### [facility] [address] [place] [address] Dr. Jose Elias Strong Nitrite Ql (U) Negative Normal NEGATIVE [facility] Comment on above: Performed By: #### U MICRO, UACSIND #### [facility] [address] [address] [address] Jose Elias Strong pH (U) 7.0 [pH] Normal 5-9 [facility] Comment on above: Performed By: #### U MICRO, UACSIND #### [facility] [address] [place] [address] Dr. Jose Elias Strong SPEC GRAVITY 1.020 Normal 1.005-<=1.025 [facility] Comment on above: Performed By: #### U MICRO, UACSIND #### [facility] [address] [place] [address] Dr. Jose Elias Strong UA PROTEIN 30 mg/dl Abnormal NEGATIVE/ TRACE [facility] Comment on above: Performed By: #### U MICRO, UACSIND #### [facility] [address] [place] [address] Dr. Jose Elias Strong UR MICRO IND INDICATED Normal [facility] Comment on above: Performed By: #### U MICRO, UACSIND #### [facility] [address] [place] [address] Dr. Jose Elias Strong Urobilinogen Qn (U) 0.2 {Mago'U}/dL Normal 0.2 - 1. 0 [facility] Comment on above: Performed By: #### U MICRO, UACSIND #### [facility] [address] [place] [address] Dr. Jose Elias Strong URINE MICROSCOPIC ONLYon BACTERIA NONE SEEN Normal NONE SEEN [facility] Comment on above: Performed By: #### U MICRO, UACSIND #### [facility] [address] [place] [address] Dr. Jose Elias Strong Bacteria identified Cx Nom (U) NOT INDICATED Normal [facility] Comment on above: Performed By: #### U MICRO, UACSIND #### [facility] [address] [place] [address] Dr. Jose Elias Strong CAST NONE SEEN Normal NONE SEEN [facility] Comment on above: Performed By: #### U MICRO, UACSIND #### [facility] [address] [place] [address] Dr. Jose Elias Strong Crystals LM Nom (Urine sed) NONE SEEN Normal NONE SEEN [facility] Comment on above: Performed By: #### U MICRO, UACSIND #### [facility] [address] [place] [address] Dr. Jose Elias Strong Epithelial cells LM Ql (Urine sed) NONE SEEN Normal NONE SEEN /RARE [facility] Comment on above: Performed By: #### U MICRO, UACSIND #### [facility] [address] [place] [address] Dr. Jose Elias Strong MUCOUS NONE SEEN Normal NONE SEEN [facility] Comment on above: Performed By: #### U MICRO, UACSIND #### [facility] [address] [address] [address] Jose Elias Strong RBC (U) [#/Vol] /uL Abnormal 0-2 [facility] Comment on above: Performed By: #### U MICRO, UACSIND #### [facility] [address] [address] [address] Jose Elias Strong WBC 0-2 Abnormal NONE SEEN [facility] Comment on above: Performed By: #### U MICRO, UACSIND #### [facility] [address] [address] [address] Jose Elias Strong CBC AUTO DIFFon 08-19-2021 BASO # 0.0 103/ul Normal 0.0-0.[address] [facility] Comment on above: Performed By: #### T NS #### [facility] [address] [place] [address] Dr. Jose Elias Strong Basophils/100 WBC (Bld) 0.2 % Normal 0.2-2.[address] [facility] Comment on above: Performed By: #### T NS #### [facility] [address] [address] [address] Jose Elias Strong EO # 0.1 103/ul Normal 0.0-0.[address] [facility] Comment on above: Performed By: #### T NS #### [facility] [address] [place] [address] Dr. Jose Elias Strong Eosinophils/100 WBC (Bld) 0.7 % Critically low 0.9-7.0 [facility] Comment on above: Performed By: #### T NS #### [facility] [address] [address] [address] Jose Elias Strong Erythrocyte distribution width (RBC) [Ratio] 15.9 % Critically high 11.0-15.[address] [facility] Comment on above: Performed By: #### T NS #### [facility] [address] [place] [address] Dr. Jose Elias Strong Hematocrit (Bld) [Volume fraction] 32.4 % Critically low 36.0-48.[address] [facility] Comment on above: Performed By: #### T NS #### [facility] [address] [address] [address] Jose Elias Strong Hemoglobin (Bld) [Mass/Vol] 9.7 g/dL Critically low 12.0-16.[address] [facility] Comment on above: Performed By: #### T NS #### [facility] [address] [address] [address] Jose Elias Strong IG # 0.19 10e3/ul Critically high 0.00-0.03 [facility] Comment on above: Performed By: #### T NS #### [facility] [address] [address] [address] Jose Elias Strong IG % 1.4 % Critically high 0.0-0.5 [facility] Comment on above: Performed By: #### T NS #### [facility] [address] [address] [address] Jose Elias Strong LYMPH # 1.9 103/ul Normal 1.2-3.[address] [facility] Comment on above: Performed By: #### T NS #### [facility] [address] [place] [address] Dr. Jose Elias Strong Lymphocytes/100 WBC (Bld) 14.4 % Critically low 20.5-60.[address] [facility] Comment on above: Performed By: #### T NS #### [facility] [address] [place] [address] Dr. Jose Elias Strong MANUAL DIFF REQ NO Normal [facility] Comment on above: Performed By: #### T NS #### [facility] [address] [address] [address] Jose Elias Strong MCH (RBC) [Entitic mass] 22.3 pg Critically low 26.7-34.[address] [facility] Comment on above: Performed By: #### T NS #### [facility] [address] [address] [address] Jose Elias Strong MCHC (RBC) [Mass/Vol] 29.9 g/dL Normal 29.9-35.2 [facility] Comment on above: Performed By: #### T NS #### [facility] [address] [address] [address] Jose Elias Strong MCV (RBC) [Entitic vol] 74.5 fL Critically low 81.0-99.[address] [facility] Comment on above: Performed By: #### T NS #### [facility] [address] [address] [address] Jose Elias Strong MONO # 1.4 103/ul Critically high 0.3-0.8 [facility] Comment on above: Performed By: #### T NS #### [facility] [address] [address] [address] Jose Elias tSrong Monocytes/100 WBC (Bld) 10.1 % Normal 1.7-12.[address] [facility] Comment on above: Performed By: #### T NS #### [facility] [address] [place] [address] Dr. Jose Elias Strong NEUT # 9.8 103/ul Critically high 1.4-6.5 [facility] Comment on above: Performed By: #### T NS #### [facility] [address] [place] [address] Dr. Jose Elias Strong Neutrophils/100 WBC (Bld) 73.2 % Normal 43.0-75.[address] [facility] Comment on above: Performed By: #### T NS #### [facility] [address] [place] [address] Dr. Jose Elias Strong Platelet mean volume (Bld) [Entitic vol] 10.0 fL Normal 9.5-13.5 [facility] Comment on above: Performed By: #### T NS #### [facility] [address] [place] [address] Dr. Jose Elias Strong PLT 337 103/ul Normal 150-450 [facility] Comment on above: Performed By: #### T NS #### [facility] [address] [place] [address] Dr. Jose Elias Strong RBC 4.35 106/ul Normal 4.20-5.40 [facility] Comment on above: Performed By: #### T NS #### [facility] [address] [place] [address] Dr. Jose Elias Strong WBC 13.4 103/ul Critically high 4.0-11.0 [facility] Comment on above: Performed By: #### T NS #### [facility] [address] [place] [address] Dr. Jose Elias Strong Covid-19 PCR ([facility])on 08-03 SARS-CoV-2 (COVID-19) RNA [place]+probe Ql (Unsp spec) Not detected Normal NOT DETECTED [facility] Comment on above: Result Comment: [...] for this test is supported by the [place] of [employer] and [employer] Service's declaration that [...] used). Performed By: #### C VDTBH #### [facility] [address] [place] [address] Dr. Jose Elias Strong TYPE AND SCREENon 08-19-2021 TYPE AND SCREEN Negative Normal [facility] Comment on above: Performed By: #### T NS #### [facility] [address] [place] [address] Dr. Jose Elias Strong GROUP B STREP CULTUREon 07-05 S. agalactiae Ag Ql (Unsp spec) Culture Observations: NEGATIVE FOR GROUP B STREPTOCOCCUS. Normal [facility] Comment on above: Performed By: #### G BSCX #### [facility] [address] [place] [address] Dr. Jose Elias Strong UA (CLEAN/CATCH) [employer] CARETAKER/MICRO I F IND.on 06-28-2021 Bilirubin Ql (U) Negative Normal NEGATIVE [facility] Comment on above: Performed By: #### U ACSIND, UMICRO #### [facility] [address] [place] [address] Dr. Jose Elias Strong Clarity (U) CLEAR Normal CLEAR [facility] Comment on above: Performed By: #### U ACSIND, UMICRO #### [facility] [address] [address] [address] Jose Elias Strong Color (U) LT. YELLOW Normal YELLOW [facility] Comment on above: Performed By: #### U ACSIND, UMICRO #### [facility] [address] [place] [address] Dr. Jose Elias Strong Glucose Ql (U) Negative Normal NEGATIVE [facility] Comment on above: Performed By: #### U ACSIND, UMICRO #### [facility] [address] [place] [address] Dr. Jose Elias Strong Hemoglobin Ql (U) Negative Normal NEGATIVE [facility] Comment on above: Performed By: #### U ACSIND, UMICRO #### [facility] [address] [place] [address] Dr. Jose Elias Strong Ketones Ql (U) Negative Normal NEGATIVE [facility] Comment on above: Performed By: #### U ACSIND, UMICRO #### [facility] [address] [address] [address] Jose Elias Strong LEUKOCYTES TRACE Abnormal NEGATIVE [facility] Comment on above: Performed By: #### U ACSIND, UMICRO #### [facility] [address] [place] [address] Dr. Jose Elias Strong Nitrite Ql (U) Negative Normal NEGATIVE [facility] Comment on above: Performed By: #### U ACSIND, UMICRO #### [facility] [address] [place] [address] Dr. Jose Elias Strong pH (U) 6.5 [pH] Normal 5-9 [facility] Comment on above: Performed By: #### U ACSIND, UMICRO #### [facility] [address] [address] [address] Jose Elias Strong SPEC GRAVITY 1.015 Normal 1.005-<=1.025 [facility] Comment on above: Performed By: #### U ACSIND, UMICRO #### [facility] [address] [address] [address] Jose Elias Strong UA PROTEIN Negative Normal NEGATIVE/ TRACE [facility] Comment on above: Performed By: #### U ACSIND, UMICRO #### [facility] [address] [address] [address] Jose Elias Strong UR MICRO IND INDICATED Normal [facility] Comment on above: Performed By: #### U ACSIND, UMICRO #### [facility] [address] [place] [address] Dr. Jose Elias Storng Urobilinogen Qn (U) 0.2 {Mago'U}/dL Normal 0.2 - 1. [address] [facility] Comment on above: Performed By: #### U ACSIND, UMICRO #### [facility] [address] [place] [address] Dr. Jose Elias Strong URINE MICROSCOPIC ONLYon AMORPHOUS CRYSTALS FEW Normal [facility] Comment on above: Performed By: #### U ACSIND, UMICRO #### [facility] [address] [place] [address] Dr. Jose Elias Storng BACTERIA TRACE Abnormal NONE SEEN [facility] Comment on above: Performed By: #### U ACSIND, UMICRO #### [facility] [address] [place] [address] Dr. Jose Elias Strong Bacteria identified Cx Nom (U) NOT INDICATED Normal [facility] Comment on above: Performed By: #### U ACSIND, UMICRO #### [facility] [address] [address] [address] Jose Elias Strong CAST NONE SEEN Normal NONE SEEN [facility] Comment on above: Performed By: #### U ACSIND, UMICRO #### [facility] [address] [address] [address] Jose Elias Strong Crystals LM Nom (Urine sed) SEEN Abnormal NONE SEEN [facility] Comment on above: Performed By: #### U ACSIND, UMICRO #### [facility] [address] [place] [address] Dr. Jose Elias Strong Epithelial cells LM Ql (Urine sed) RARE Normal NONE SEEN /RARE [facility] Comment on above: Performed By: #### U ACSIND, UMICRO #### [facility] [address] [place] [address] Dr. Jose Elias Strong MUCOUS TRACE Abnormal NONE SEEN [facility] Comment on above: Performed By: #### U ACSIND, UMICRO #### [facility] [address] [place] [address] Dr. Jose Elias Strong RBC 0-2 Normal 0-[address] [facility] Comment on above: Performed By: #### U ACSMICHAEL, UMICRO #### [facility] [address] [place] [address] Dr. Jose Elias Strong WBC 2-5 Abnormal NONE SEEN [facility] Comment on above: Performed By: #### U ACSMICHAEL, UMICRO #### [facility] [address] [place] [address] Dr. Jose Elias Strong CBC AUTO DIFFon 06-19-2021 BASO # 0.0 103/ul Normal 0.0-0.[address] [facility] Comment on above: Performed By: #### C BC #### [facility] [address] [place] [address] Dr. Jose Elias Strong Basophils/100 WBC (Bld) 0.3 % Normal 0.2-2.0 [facility] Comment on above: Performed By: #### C BC #### [facility] [address] [place] [address] Dr. Jose Elias Strong EO # 0.2 103/ul Normal 0.0-0.7 [facility] Comment on above: Performed By: #### C BC #### [facility] [address] [place] [address] Dr. Jose Elias Strong Eosinophils/100 WBC (Bld) 2.0 % Normal 0.9-7.0 [facility] Comment on above: Performed By: #### C BC #### [facility] [address] [place] [address] Dr. Jose Elias Strong Erythrocyte distribution width (RBC) [Ratio] 13.6 % Normal 11.0-15.[address] [facility] Comment on above: Performed By: #### C BC #### [facility] [address] [place] [address] Dr. Jose Elias Strong Hematocrit (Bld) [Volume fraction] 29.4 % Critically low 36.0-48.[address] [facility] Comment on above: Performed By: #### C BC #### [facility] [address] [place] [address] Dr. Jose Elias Strong Hemoglobin (Bld) [Mass/Vol] 9.5 g/dL Critically low 12.0-16.[address] [facility] Comment on above: Performed By: #### C BC #### [facility] [address] [place] [address] Dr. Jose Elias Strong IG # 0.14 10e3/ul Critically high 0.00-0.03 [facility] Comment on above: Performed By: #### C BC #### [facility] [address] [place] [address] Dr. Jose Elias Strong IG % 1.4 % Critically high 0.0-0.5 [facility] Comment on above: Performed By: #### C BC #### [facility] [address] [place] [address] Dr. Jose Elias Strong LYMPH # 1.6 103/ul Normal 1.2-3.[address] [facility] Comment on above: Performed By: #### C BC #### [facility] [address] [place] [address] Dr. Jose Elias Strong Lymphocytes/100 WBC (Bld) 15.5 % Critically low 20.5-60.[address] [facility] Comment on above: Performed By: #### C BC #### [facility] [address] [place] [address] Dr. Jose Elias Strong MANUAL DIFF REQ NO Normal [facility] Comment on above: Performed By: #### C BC #### [facility] [address] [address] [address] Jose Elias Strong MCH (RBC) [Entitic mass] 26.8 pg Normal 26.7-34.[address] [facility] Comment on above: Performed By: #### C BC #### [facility] [address] [address] [address] Jose Elias Strong MCHC (RBC) [Mass/Vol] 32.3 g/dL Normal 29.9-35.[address] [facility] Comment on above: Performed By: #### C BC #### [facility] [address] [address] [address] Jose Elias Strong MCV (RBC) [Entitic vol] 82.8 fL Normal 81.0-99.[address] [facility] Comment on above: Performed By: #### C BC #### [facility] [address] [place] [address] Dr. Jose Elias Strong MONO # 1.2 103/ul Critically high 0.3-0.8 [facility] Comment on above: Performed By: #### C BC #### [facility] [address] [address] [address] Jose Elias Strong Monocytes/100 WBC (Bld) 12.2 % Critically high 1.7-12.[address] [facility] Comment on above: Performed By: #### C BC #### [facility] [address] [address] [address] Jose Elias Strong NEUT # 7.0 103/ul Critically high 1.4-6.5 [facility] Comment on above: Performed By: #### C BC #### [facility] [address] [address] [address] Jose Elias Strong Neutrophils/100 WBC (Bld) 68.6 % Normal 43.0-75.0 [facility] Comment on above: Performed By: #### C BC #### [facility] [address] [place] [address] Dr. Jose Elias Strong Platelet mean volume (Bld) [Entitic vol] 9.1 fL Critically low 9.5-13.[address] [facility] Comment on above: Performed By: #### C BC #### [facility] [address] [address] [address] Jose Elias Strong PLT 309 103/ul Normal 150-[address] [facility] Comment on above: Performed By: #### C BC #### [facility] [address] [address] [address] Jose Elias Strong RBC 3.55 106/ul Critically low 4.20-5.40 [facility] Comment on above: Performed By: #### C BC #### [facility] [address] [address] [address] Jose Elias Strong WBC 10.1 103/ul Normal 4.0-11.[address] [facility] Comment on above: Performed By: #### C BC #### [facility] [address] [address] [address] Jose Elias Strong GLYCOHEMOGLOBIN A1Con 2021 ADA RECOMMENDATION ADA THERAPEUTIC TARGET 6.0 - 7.0 ACTION SUGGESTED > 7.[address] [facility] Comment on above: Performed By: #### T NS #### [facility] [address] [address] [address] Jose Elias Strong Glucose [Mass/Vol] 97 mg/dL Normal [facility] Comment on above: Performed By: #### T NS #### [facility] [address] [address] [address] Jose Elias Strong HbA1c (Bld) [Mass fraction] 5.0 % Normal <=6.[address] [facility] Comment on above: Performed By: #### T NS #### [facility] [address] [address] [address] Jose Elias Strong Consenton 10-24-2020 Consent [id number] .00CD:127 Normal [facility] In office Testingon 10-25-19 In office Testing [id number] 1.00CD:127 Normal [facility] Registrationon 10-24-2020 Registration [id number] .00CD:127 [facility] Registration [id number] .00CD:127 [facility] Vital Signs Date Time Vital Sign Value Performing Clinician Leslie garrett 06-12-2023 11:02-0500 Body mass index (BMI) [Ratio] 30.26 kg/m2 Mary Venkat DO Work Phone: [facility] 06-12-2023 11:02-050 Body weight 77.47 kg Mary Venkat DO Work Phone: [facility] 06-12-2023 11:02-0500 Diastolic blood pressure 70 mm[Hg] Mary Venkat DO Work Phone: [facility] 06-12-2023 11:02-0500 Systolic blood pressure 118 mm[Hg] Mary Venkat DO Work Phone: [facility] Encounters Encounter Date Encounter Type Care Provider Facility Start: 06-24-2023 End: 06-24-2023 ambulatory ERIKA ROCIO Not Available Start: 06-12-2023 End: 06-12-2023 ambulatory MARY VENKAT Not Available Start: 06-12-2023 End: 06-12-2023 Office outpatient visit 15 minutes Mary Venkat DO Work Phone: [facility] Comment on above: Third trimester preg jun Start: 05-29-2023 End: 05-29-2023 ambulatory ERIKA ROCIO Not Available Start: 04-23-2023 End: 04-23-2023 ambulatory MARY VENKAT Not Available Start: 03-19-2023 End: 03-19-2023 ambulatory MARY VENKAT Not Available Start: 12-10-2022 ambulatory ALEXANDER Lucia [facility] Start: 11-19-2022 End: 11-19-2022 ambulatory YOMAIRA LAWLER [facility] Start: 10-28-2022 End: 10-29-2022 ambulatory ALEXANDER [facility] Start: 08-29-2022 ambulatory YOMAIRA LAWLER [facility] Start: 08-19-2022 End: 08-19-2022 Emergency department patient visit YOMAIRA LAWLER [facility] Start: 08-08-2022 End: 08-08-2022 Emergency department patient visit JERRY WALLS [facility] Start: 06-04-2022 End: 06-04-2022 ambulatory [...] Routine [facility] [address] [place] [id number] Erika Keith PA [address] [place] [address] [facility] Payers Date Payer Category Payer Medicaid [id number] 2022 Medicaid [employer] [place] [id number] 2022-Present [address] [place] [address] [id number] 1995 Unknown [id number] 2.16.840.1.343106.3.579.2.593 1995 Unknown [id number] 2.16.840.1.959572.3.579.2.593 1995 Unknown [id number] 2.16.840.1.123187.3.579.2.593 1995 Unknown [id number] 2.16.840.1.284361.3.579.2.593 1995 Unknown [id number] 2.16.840.1.231212.3.579.2.593 1995 Unknown [id number] 2.16.840.1.281565.3.579.2.593 1995 Unknown [id number] 2.16.840.1.102519.3.579.2.593 1995 Unknown [id number] 2.16.840.1.598073.3.579.2.593 1995 Unknown [id number] 2.16.840.1.282507.3.579.2.121 1995 Unknown [id number] 2.16.840.1.467548.3.579.2.121 1995 Unknown [id number] 2.16.840.1.524322.3.579.2.121 1995 Unknown [id number] 2.16.840.1.625158.3.579.2.1213 1995 Unknown [id number] 2.16.840.1.866710.3.579.2.1212 1995 Unknown [id number] 2.16.840.1.469447.3.579.2.1212 1995 Unknown [id number] 2.16.840.1.630306.3.579.2.1258 1995 Unknown [id number] 2.16.840.1.777126.3.579.2.1258 1995 Unknown [id number] 2.16.840.1.042555.3.579.2.1258 1995 Unknown [id number] 2.16.840.1.449666.3.579.2.1258 1995 Unknown [id number] 2.16.840.1.104995.3.579.2.9 1959 Unknown [id number] Social History Date Type Detail Facility Start: 10-21-2022 Tobacco smoking stat [facility] Never smoked tobacco [facility] Start: [...] Ambulatory Problems Diagnosis Date Noted Acute asthma ([facility]) 12/03/2022 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 12/03/2022 Neck swelling 08/19/2022 Schizoaffective disorder ([facility]) 12/03/2022 Resolved Ambulatory Problems Diagnosis Date Noted No Resolved Ambulatory Problems Past Medical History: Diagnosis Date BMI 24.0-24.9, adult Depot contraception Encounter for IUD insertion Encounter for Papanicolaou cervical smear to confirm findings of recent normal smear following initial abnormal smear Intrauterine device surveillance Schizo-affective psychosis ([facility]) Urine test negative Family History [...] nursing note reviewed. Exam conducted with a marketing sales consultant present. Vitals: Estimated body mass index is [...] section and content) DATE CREATED AUTHOR 10/25/2020 [facility] DATE CREATED AUTHOR AUTHOR'S ORGANIZ ATION 06/11/2022 [facility] DATE CREATED AUTHOR AUTHOR'S ORGANIZ ATION 12/16/2022 [facility] DATE CREATED AUTHOR AUTHOR'S ORGANIZ ATION 07/01/2023 [facility] EPIC Reason for Visit (unrecogniz ed [...] BE BASED ON THE PRIMARY CLINICAL RECORDS. [facility] [employer] [facility]. provides no warranty or guarantee of the accuracy or completeness of information in this document.
[2023-07-15 09:14] LABS: Hematocrit 34.1 % (36.0-48.0); Hemoglobin 11.3 g/dL (12.0-16.0); Mean Corpuscular HGB Conc 33.1 g/dL (29.9-35.2); Mean Corpuscular Hemoglobin 30.1 pg (26.7-34.0); Mean Corpuscular Volume 90.9 fL (81.0-99.0); Mean Platelet Volume 9.7 fL (9.5-13.5); Platelet Count 230 10^3/uL (150-450); Red Blood Count 3.75 10^6/uL (4.20-5.40); Red Cell Distribution Width 17.1 % (11.0-15.0); White Blood Count 8.8 10^3/uL (4.0-11.0)
[2023-07-15] MEDS: 0.9 % SODIUM CHLORIDE 1,000 ML 125 ML IV (09:34)
[2023-07-15] MEDS: OXYTOCIN/0.9 % SODIUM CHLORIDE 10 UNITS/500 ML PLAST..BAG 6 UNIT IV (09:35)
[2023-07-15] MEDS: FAMOTIDINE/PF 20 MG/2 ML VIAL IV (16:07)
[2023-07-15] MEDS: CLINDAMYCIN PHOSPHATE/D5W 900 MG/50 ML PIGGYBACK 100 MG IV (16:07)
[2023-07-15] MEDS: METOCLOPRAMIDE HCL 10 MG/2 ML VIAL IVP (16:07)
[2023-07-15] MEDS: CITRIC ACID/SODIUM CITRATE 30 ML SOLUTION ORACIT SHOHL'S SOLN PO (16:07)
[2023-07-15] MEDS: 0.9 % SODIUM CHLORIDE 1,000 ML 75 ML IV (16:48)
--- NOTE | 2023-07-15 16:50 | PM.ONB ---
Brief Operative Note Date of procedure: 07/15/23 Pre-op diagnosis: iup at 38wks, unstable lie after ecv and rom Post-op diagnosis: same as pre-op Procedure: NAME OF PROCEDURE: [ section ] PROCEDURE: Patient was taken back to the Operating Room where she was given a spinal anesthesia with Duramorph without difficulty. She was prepped and draped in the normal sterile fashion. A Pfannenstiel skin incision was then made 2 cm above the symphysis pubis and carried down to underlying rectus fascia using a Bovie. The fascia was incised in the midline and extended laterally using Castaneda scissors. Two Cuco clamps were placed on the superior aspect of the fascia and dissected off the underlying rectus muscles. The same was performed on the inferior aspect as well. The muscles were then in the midline. Peritoneum was identified and entered bluntly. The peritoneum was then extended superiorly and inferiorly with good visualization of the bladder. The bladder blade was inserted. A low transverse incision was made on the patient's uterus and extended laterally digitally. The infant was then delivered atraumatically after the bladder blade was removed in the cephalic position. The cord was clamped and cut. Cord blood was obtained. The infant was handed off to awaiting team. The patient's placenta was spontaneously delivered. The uterus was then exteriorized. The uterus was cleared of all clots and debris. The bladder blade was reinserted. The patient's uterine incision was closed using #0 Vicryl in a running lock fashion. Excellent hemostasis was assured. The uterus was then returned to the patient's abdomen. The patient's abdomen was copiously irrigated using warm saline. Peritoneal gutters were cleared of all clots and debris. Again excellent hemostasis was assured. The patient's peritoneum was closed using 3-0 Vicryl in a running fashion. The patient's fascia was closed using #0 Vicryl in a running fashion. The patient's skin was closed using 4-0 Vicryl subcuticularly. The patient tolerated the procedure well. Sponge, lap, and needle counts were correct x2. The patient was taken to the Recovery Room in stable condition. Anesthesia: spinal Surgeon: Sarbjit Robledo Sueding Machine Operator: Angelica Tapia Estimated blood loss (mL): 600 Pathology: none sent Condition: stable Disposition: floor Urinary Catheter Management Urinary Catheter Management Urethral: Cath placed during this visit: no
--- NOTE | 2023-07-15 16:51 | PM.OBPRCCS ---
Procedure Pre-op/Post-op diagnoses: Pre-Op/Post-Op Diagnoses Operation Date: 07/15/23 15:00 <No data on this case meets the specified criteria> Procedure: Procedures Operation Date: 07/15/23 15:00 Actual Procedure Side Surgeon p , Breech Presentation Not Applicable Sarbjit Robledo DO Filter Tank Tender Helper Head: Angelica Tapia Estimated blood loss (mL): 600 Disposition: floor Anesthesia type: Spinal
[2023-07-15] MEDS: OXYTOCIN/0.9 % SODIUM CHLORIDE 20 UNITS/1,000 ML PLAST..BAG 125 UNIT IV (17:31)
[2023-07-15] MEDS: ONDANSETRON PF 4 MG/2 ML VIAL IV (22:10)
[2023-07-16] VITALS (13 sets, daily range): BP systolic 100–126; BP diastolic 67–83; PULSE 77–95; RESP 14–24; TEMP 36.4–36.8; O2SAT 97–100
[2023-07-16] MEDS: KETOROLAC TROMETHAMINE 30 MG/ML VIAL IVP ×3 (02:56→20:57)
[2023-07-16] MEDS: ENOXAPARIN SODIUM 40 MG/0.4 ML SYRINGE SUBQ (04:16)
[2023-07-16 06:03] LABS: Hemoglobin 10.1 g/dL (12.0-16.0); Mean Corpuscular HGB Conc 31.6 g/dL (29.9-35.2); Mean Corpuscular Hemoglobin 29.3 pg (26.7-34.0); Mean Corpuscular Volume 92.8 fL (81.0-99.0); Mean Platelet Volume 9.9 fL (9.5-13.5); Platelet Count 267 10^3/uL (150-450); Red Blood Count 3.45 10^6/uL (4.20-5.40); Red Cell Distribution Width 16.6 % (11.0-15.0); White Blood Count 17.3 10^3/uL (4.0-11.0)
[2023-07-16 06:21] LABS: Lymphocytes Absolute Manual 0.69 10^3/uL (1.20-3.80); Monocytes Absolute Manual 1.55 10^3/uL (0.30-0.80); Segmented Neut Absolute Manual 15.05 10^3/uL (1.4-6.5)
--- NOTE | 2023-07-16 07:28 | P.OBPN_ITS ---
OB - PN: Subj Subjective Patient comments: no complaints and pain well controlled [place] status: doing well Exam Constitutional Vital Signs, click to edit/add: Last Vital Signs Temp 98.1 F 07/16/23 04:15 Pulse 93 H 07/15/23 22:06 Resp 21 07/15/23 22:06 BP 119/70 07/16/23 04:15 Pulse Ox 97 07/15/23 17:40 O2 Del Method Room Air 07/16/23 00:52 Documenting provider has reviewed patient's vital signs: yes Common normals: no apparent distress Respiratory Common normals: normal respiratory effort and clear to auscultation bilaterally Cardio Common normals: regular rate and regular rhythm GI Common normals: Normal to inspection, nondistended, normoactive bowel sounds present Extremity Common normals: no clubbing, cyanosis or edema and no calf tenderness Results Labs Labs: Short CBC 07/15/23 07/16/23 Range/Units 09:05 05:36 WBC 8.8 17.3 H (4.0-11.0) 10^3/uL Hgb 11.3 L 10.1 L (12.0-16.0) g/dL Hct 34.1 L 32.0 L (36.0-48.0) % Plt Count 230 267 (150-450) 10^3/uL Urinary Catheter Management Urinary Catheter Management Urethral: Cath placed during this visit: no OB - PN: A/P Plan - day: 1 Plan: routine postop care Time Spent with Patient Time: Total time spent is greater than 50% in coordination of care (as documented) at patient's floor/unit and/or counseling patient: Total time spent with greater than 50% in coordination of care (as documented) at patient's floor/unit and/or counseling patient: less than 15 minutes
[2023-07-16] MEDS: ONDANSETRON PF 4 MG/2 ML VIAL IV (08:04)
[2023-07-16] MEDS: 0.9 % SODIUM CHLORIDE 1,000 ML 125 ML IV (08:04)
[2023-07-16] MEDS: CLINDAMYCIN PHOSPHATE/D5W 900 MG/50 ML PIGGYBACK 100 MG IV (08:04)
[2023-07-16] MEDS: DOCUSATE SODIUM 100 MG CAPSULE PO ×2 (10:01→20:58)
--- NOTE | 2023-07-16 11:04 | PC.NURSE ---
Urine flow in catheter appears sock lining stitcher, emptied for 160 ml, removed, iv discontinued and pt up to BR. Pericare reviewed and pt up in room.,then into shower.
--- NOTE | 2023-07-16 11:45 | PC.NURSE ---
incision clean and dry with steristrips intact and binder placed
[2023-07-16] MEDS: GLYCERIN/WITCH HAZEL PADS 1 PAD TOPICAL (18:57)
[2023-07-17] VITALS (15 sets, daily range): BP systolic 106–136; BP diastolic 57–95; PULSE 83–101; RESP 16–19; TEMP 36.6–36.7; O2SAT 96–97
[2023-07-17] MEDS: KETOROLAC TROMETHAMINE 30 MG/ML VIAL IVP (08:32)
[2023-07-17] MEDS: DOCUSATE SODIUM 100 MG CAPSULE PO (08:33)
--- NOTE | 2023-07-17 08:40 | PC.NURSE ---
The imported vital signs from 07/16/2023-2348 until 07/16/2022 are not this patient's vital signs, it is incorrect due to a technical error-
--- NOTE | 2023-07-17 09:01 | W.PC.ACHO ---
Registration Status: ADM IN Primary Language: [place]an Preferred Language: [place]an report given at 0700. Active Medications Generic Name Dose Route Start Last Admin Trade Name Freq PRN Reason Stop Dose Admin Al Hydroxide/Mg Hydroxide 2,400 mg 07/15/23 16:51 Magnesium Hydroxide 2,400 Mg/10 Ml Oral.Susp PO Q6H PRN Dyspepsia Diphtheria/Pertussis/Tetanus Vacc 0.5 ml 07/17/23 09:00 Adacel Diph,Pertuss(Acell),Tet Vac/Pf 0.5 Ml Adult Syringe IM 07/17/23 09:01 .ONCE ONE Docusate Sodium 100 mg 07/16/23 09:00 07/17/23 08:33 Docusate Sodium 100 Mg Capsule PO 100 mg BID CAT Administration Enoxaparin Sodium 40 mg 07/16/23 04:00 07/16/23 04:16 Enoxaparin Sodium 40 Mg/0.4 Ml Syringe SUBQ 40 mg Q24H CAT Administration Sodium Chloride 1,000 mls @ 125 mls/hr 07/15/23 17:00 07/16/23 08:04 Sodium Chloride 0.9% 1,000 Ml IV 125 mls/hr .Q8H CAT Administration Promethazine HCl 25 mg/ Sodium 51 mls @ 204 mls/hr 07/15/23 16:51 Chloride IV Q6H PRN Nausea And Vomiting Ibuprofen 800 mg 07/15/23 16:51 Ibuprofen 400 Mg Tablet PO Q8H PRN Pain Ketorolac Tromethamine 30 mg 07/15/23 16:51 07/17/23 08:32 Ketorolac Tromethamine 30 Mg/Ml Vial IVP 07/17/23 16:52 30 mg Q6H PRN Administration Pain Measles/Mumps/Rubella Vaccine Live 0.5 ml 07/17/23 09:00 Measles,Mumps,Rubella Vacc/Pf 0.5 Ml Vial SQ 07/17/23 09:01 .ONCE ONE Ondansetron HCl 4 mg 07/15/23 08:53 Ondansetron 4 Mg Rapdis Tablet SL Q6H PRN Nausea And Vomiting Ondansetron HCl 4 mg 07/15/23 16:51 07/16/23 08:04 Ondansetron Pf 4 Mg/2 Ml Vial IV 4 mg Q6H PRN Administration Nausea And Vomiting Oxycodone/Acetaminophen 1 tab 07/15/23 16:51 Oxycodone Hcl/Acetaminophen 5mg/325mg PO Q4H PRN Pain Scale 4-6 Oxycodone/Acetaminophen 2 tab 07/15/23 16:51 Oxycodone Hcl/Acetaminophen 5mg/325mg PO Q4H PRN Pain Scale 7-10 Senna 17.2 mg 07/15/23 20:00 Sennosides 8.6 Mg Tablet PO QHS PRN Constipation Simethicone 80 mg 07/15/23 16:51 Simethicone 80 Mg Tab.Chew PO QID PRN Abdominal Distention Witch Freya/Glycerin 1 pad 07/16/23 10:16 07/16/23 18:57 Glycerin/Witch Freya Pads TOPICAL 1 pad Q2H PRN Administration Pain Respiratory Pulse Oximetry 97 Pulse Oximetry 96 Pulse Oximetry 97 Pulse Oximetry 98 Pulse Oximetry 97 Pulse Oximetry 98 Pulse Oximetry 100 Pulse Oximetry 97 Oxygen Delivery Method Room Air Oxygen Delivery Method Room Air Oxygen Delivery Method Room Air Oxygen Delivery Method Room Air Oxygen Delivery Method Room Air Cardiology Heart Sounds Strong,Regular Renal Bladder Pattern Continent Bladder Pattern Continent
--- NOTE | 2023-07-17 11:43 | PM.OBDS ---
DS: Providers Provider Date of admission: 07/15/23 08:53 Primary care physician: Jesu Santiago MD Admitting clinician: Sarbjit Robledo Discharging clinician: Shu Merritt Anticipated date of discharge: 07/17/23 DS: Diagnosis Discharge Diagnosis (1) delivery indicated due to breech presentation: Assessment and plan: condition good, requesting discharge Plan s/p primary cs for breech, instructions given, stated understanding, scripts provided for colace, percocet and ibuprofen, needs to see Dr. Robledo in on week for incision check OB - DS: Summary Hospital Course Hospital Course: uncomplicated Time spent discussing smoking cessation with patient: 3 to 10 minutes Peripartum Data - Procedures: Procedures Operation Date: 07/15/23 15:00 Actual Procedure Side Surgeon p , Breech Presentation Not Applicable Sarbjit Robledo DO Peripartum Data - Vaginal Delivery Procedures: Procedures Operation Date: 07/15/23 15:00 Actual Procedure Side Surgeon p , Breech Presentation Not Applicable Sarbjit Robledo DO Complications complications: none Infant Delivery method: section Gender: female Discharge plan: home Status at Discharge Cognitive/behavioral status at discharge: wnl Functional status at discharge: independent ambulation Overall status at discharge: patient is progressing back to baseline Time Spent with Patient Time attestation: Total time spent providing and/or coordinating discharge services: Time spent: less than 30 minutes Exam Narrative Exam Narrative: voices no complaints Constitutional Vital Signs, click to edit/add: Last Vital Signs Temp 98.1 F 07/17/23 08:30 Pulse 88 07/17/23 08:23 Resp 16 07/17/23 08:30 BP 118/69 07/17/23 08:23 Pulse Ox 97 07/17/23 00:11 O2 Del Method Room Air 07/17/23 06:15 Documenting provider has reviewed patient's vital signs: yes Common normals: no apparent distress General appearance: cooperative and comfortable Orientation/consciousness: Yes awake, Yes oriented to person, Yes oriented to place and Yes oriented to time HENMT Common normals: normocephalic and head/scalp atraumatic Eye Common normals: PERRL Pupil: accommodation reflex normal Neck & C-Spine Common normals: full ROM and supple Chest Common normals: inspection of chest normal Respiratory Common normals: normal respiratory effort and clear to auscultation bilaterally Cardio Common normals: regular rate and regular rhythm GI Common normals: Normal to inspection, nondistended, normoactive bowel sounds present, soft to palpation and non-tender Inspection: normal to inspection (incision dry and intact) Auscultation: normoactive bowel sounds Palpation: soft Common normals: no CVA tenderness Back & Pelvis Common normals: thoracic and lumbar spine normal to inspection and no thoracic nor lumbar tenderness Extremity Common normals: normal to inspection, full ROM and no calf tenderness Neuro Common normals: oriented x3, CN's II-XII intact bilaterally, no focal motor deficits and no sensory deficits noted Psych Common normals: mental status grossly normal, thought process normal, affect normal and speech normal Discharge Plan Discharge Disposition: Home, Self-Care Condition: Good Assessment: condition good, ok for discharge Health Concerns: none Plan of Treatment: discharge to home Activity: increase activity as tolerated Activity Detail: no sex 6 weeks, no driving 4 weeks, only lift baby, may climb stairs, no bathtub 4 weeks may shower Diet: regular diet Activity Restrictions/Additional Instructions: only exercise is walking for six weeks Forms: Portal Instructions Follow Up Appointments: incision check in one week Discharge location: home
== END 2023-07-17 14:44 | disposition home or self-care (01) | DRG 540 ==
PROVIDERS: Admitting Provider Obstetrics & Gynecology; PCP Family Medicine; Visit Provider Obstetrics & Gynecology
PROC: 10D00Z1 Extraction of Products of Conception, Low, Open Approach (ICD-10-PCS; CPT 59514; principal; 2023-07-15 15:00)
DX: O32.1XX0 Maternal care for breech presentation, not applicable or unspecified (principal); O32.0XX0 Maternal care for unstable lie, not applicable or unspecified; O99.284 Endocrine, nutritional and metabolic diseases complicating childbirth; E03.9 Hypothyroidism, unspecified; O99.52 Diseases of the respiratory system complicating childbirth; Z37.0 Single live birth; J45.909 Unspecified asthma, uncomplicated; Z3A.37 37 weeks gestation of pregnancy
CPT/HCPCS: 36415; 59025; 59050; 59412; 80307; 85007; 85027; 86850; 86900; 86901; 94667; 94668; 96372; 96374; 96375; 96376; J1094

== ENCOUNTER 2023-10-23 12:16 | Outpatient (OUT) | payer OTHER, SELFPAY ==
[2023-10-24 06:09] LABS: Hepatitis B Surf Ab Quant >1000.0 mIU/mL (Immunity>9.9)
[2023-10-24 14:10] LABS: Varicella-Zoster V Ab, IgG 563 index (Immune >165)
[2023-10-25 08:13] LABS: QuantiFERON-TB Gold Plus Negative (Negative)
[2023-10-25 13:10] LABS: Measles Antibodies, IgG 14.2 AU/mL (Immune >16.4); Mumps Abs, IgG <9.0 AU/mL (Immune >10.9); Rubella Antibodies, IgG 1.42 index (Immune >0.99)
== END 2023-10-23 12:17 | disposition home or self-care (01) ==
LOC: LAB 12:18
PROVIDERS: PCP Family Medicine; Visit Provider Family Medicine
DX: Z02.1 Encounter for pre-employment examination (principal)
CPT/HCPCS: 36415; 86317; 86480; 86735; 86762; 86765; 86787

== ENCOUNTER 2024-01-21 14:14 | Outpatient (OUT) | payer OTHER, SELFPAY ==
--- OUTSIDE RECORDS SUMMARY | 2024-01-21 14:33 | XMS_ITS | CCD ---
Author Organization [facility] Care Team Providers Care Ct Tech Name Role Phone VENKAT, DR HERNANDEZ Admitting [...] NOSANOV, YOMAIRA GUILLEN Consulting Unavailab le ALZUHAILI, ANADarrian Attending Unavailable ALZUHAILI, ANAS Attending Unavailable Unavailable Primary Care Provider Unavailabl e MARY ROBLEDO Attending Unavailable ROCIO, ERIKA Attending Unavailable VENKAT, MARY Attending Unavailable ROCIO, ERIKA Attending Unavailable VENKAT, MARY Attending Unavailable ROCIO, ERIKA Attending Unavailable VENKAT, MARY Attending Unavailable ROCIO, ERIKA Attending Unavailable JOANN Aguilar Attending Provider Allergies Allergy Classification Reported Allergen(s) Allergy Type Date of Onset Reaction(s) Facility (2 sources) Latex; Translations: [LATEX] Drug allergy (disorder) 6 [facility] Repository (2 sources) Leucine; Translations: [NICKEL] Drug Allergy 7 [facility] Repository (2 sources) Penicillins; Translations: [PENICILLINS] Drug allergy (disorder) 7 [facility]ository (1 source) Shellfish Drug allergy (disorder) 7 [facility]ository (2 sources) Iodine; Translations: [IODINE] Drug Allergy 3 [facility] Repository (1 source) SHELLFISH CONTAINING PRODUCTS; Translations: [SHELLFISH CONTAINING PRODUCTS] Propensity to adverse reactions to drug (disorder) 3 [facility] Repository (1 source) VENOM-HONEY BEE; Translations: [VENOM-HONEY BEE] Propensity to adverse reactions to drug (disorder) 3 [facility] Repository (1 source) Amoxicillin Drug Allergy 3 Unknown [facility] Healthcare (1 source) Bee pollen Allergy to substance 3 Unknown [facility] Healthcare (1 source) Honey bee venom Propensity to adverse reactions 3 [facility] (1 source) Latex Allergy to substance 3 Unknown [facility] Healthcare (1 source) nickel sulfate Drug Allergy 3 [facility] (1 source) Penicillin G Drug Allergy 3 Unknown [facility] Healthcare (1 source) Shellfish-Derive d Products Drug Allergy 3 Unknown [facility] Healthcare (1 source) Penicillins Propensity to adverse reactions 4 [facility] (1 source) Shellfish Allergy to substance 4 [facility] Medications Current Medications Medication Drug Class(es) Dates Sig (Normalized) Sig (Original) [id number] 200 actuat albuterol 0.09 mg/actuat metered dose [...] Rinse mouth after use 0 10/03/2022 Active ibuprofen 800 mg oral tablet (1 source) Nonsteroidal Anti-inflammatory Drug Start: 11-27-2023 take 800 mg by mouth every six hours Ibuprofen Active 800 MG PO Q6H November 27, 2023 12:00am levothyroxine sodium 0.025 mg oral tablet (1 [...] morning. 30 tablet 0 12/04/2022 12/04/2023 Active QUEtiapine 50 mg oral tablet (1 source) Atypical Antipsychotic Start: 11-27-2023 take 50 mg by mouth at bedtime Quetiapine Active 50 MG PO bedtime November 27, 2023 12:00am sertraline 50 mg oral tablet (1 source) Serotonin Reuptake Inhibitor Start: 11-27-2023 take 50 mg by mouth once daily Sertraline Active 50 MG PO Daily November 27, 2023 12:00am Problems Active Problems Problem Classification Problem Date [...] UA Negative Negative - 4(70) +++ mg/dL [facility] Blood, UA Negative Negative - 50 Yovany/mcL [facility] Clarity, UA Clear [facility] Color, UA Yellow [facility] Glucose, UA Negative Negative - 2000(110) ++++ mg/dL [facility] Interpretation and review of laboratory results Abnormal [facility] Ketones, UA Negative Negative - 160(16) ++++ mg/dL [facility] Leukocytes, UA Positive Negative - 500+++ Jamey/mcL [facility] Nitrite, UA Negative Negative - Positive [facility] pH, UA 5.5 5 - 9 [facility] Protein, UA Positive Negative - 2000(20) ++++ mg/dL [facility] Spec Grav, UA 1.020 1 - 1.03 [facility] Urobilinogen, UA 1.0 0.2 - 12 mg/dL [facility] HCG, Urineon 11-19-2022 Beta HCG ( test) Ql (U) Negative Normal [facility] Comment on above: Order Comment: The c alculated GFR uses the (IDMS)-traceable creatinine MDRD equation and is reported in mL/min/1.73 square meters. This formula is not recommended for use with individuals with unstable creatinine concentrations, extremes in muscle mass and/or body size, or alternative diets and may not be suitable for all patient populations. Testing performed at [facility], [address] [place] [address] 45467 Result Comment: Note : This test provides only a presumptive diagnosis for . If the HCG result is inconsistent with clinical evidence, results should be confirmed with an alternative method, such as a quantitative HCG. Basic Metabolic Profileon ANIO 11 mmol/L Low 12-20 [facility] Comment on above: Order Comment: Testi ng performed at [facility], [address] [place] [address] 49389 Calcium [Mass/Vol] 9.5 mg/dL Normal 8.4-10.2 [facility] Comment on above: Order Comment: Testi ng performed at [facility], [address] [place] [address] 39189 Chloride [Moles/Vol] 107 mmol/L Normal 98-107 [facility] Comment on above: Order Comment: Testi ng performed at [facility], [address] [place] [address] 14647 CO2 [Moles/Vol] 23.0 mmol/L Normal 22.0-30.0 [facility] Comment on above: Order Comment: Testi ng performed at [facility], [address] [place] [address] 43253 Creatinine [Mass/Vol] 0.7 mg/dL Normal 0.6-1.2 [facility] Comment on above: Order Comment: Testi ng performed at [facility], [address] [place] [address] 62595 Glucose [Mass/Vol] 118 mg/dL High 74-106 [facility] Comment on above: Order Comment: Testi ng performed at [facility], [address] [place] [address] 06948 Potassium [Moles/Vol] 4.1 mmol/L Normal 3.3-4.9 [facility] Comment on above: Order Comment: Testi ng performed at [facility], [address] [place] [address] 37999 Sodium [Moles/Vol] 137 mmol/L Normal 137-145 [facility] Comment on above: Order Comment: Testi ng performed at [facility], [address] [place] [address] 38341 Urea nitrogen [Mass/Vol] 14 mg/dL Normal 8-19 [facility] Comment on above: Order Comment: Testi ng performed at [facility], [address] [place] [address] 28876 CBC w/Auto Diffon 08-19-2022 Basophils (Bld) [#/Vol] 0.04 10*3/uL Normal 0.00-0.10 [facility] Comment on above: [...] no longer indicated. Testing performed at [facility], [address] [place] [address] 82741 Eosinophils (Bld) [#/Vol] 0.05 10*3/uL Normal 0.00-0.40 [facility] Comment on above: [...] no longer indicated. Testing performed at [facility], [address] [place] [address] 54440 Erythrocyte distribution width (RBC) [Ratio] 13.3 % Normal 11.7-14.4 [facility] Comment on above: [...] no longer indicated. Testing performed at [facility], [address] [place] [address] 70259 Hematocrit (Bld) [Volume fraction] 36.1 % Normal 34.1-44.9 [facility] Comment on above: [...] indicated. Testing performed at [facility] [employer], [address] [place] [address] 85691 Hemoglobin (Bld) [Mass/Vol] 12.0 g/dL Normal 11.2-15.7 [facility] Comment on above: [...] indicated. Testing performed at [facility] [employer], [address] [place], [place] [id number] IG % (B) 0.6 % High 0.0-0.4 [facility] Comment on above: [...] no longer indicated. Testing performed at [facility], [address] [place] [address] 28170 IG# (B) 0.14 10*3/uL High 0.00-0.00 [facility] Comment on above: [...] Testing performed at [facility], [address] [place] [address] 33920 Lymphocytes (Bld) [#/Vol] 0.81 10*3/uL Low 1.20-3.70 [facility] Comment on above: [...] no longer indicated. Testing performed at [facility], [address] [place] [address] 55440 MCH (RBC) [Entitic mass] 28.5 pg Normal 25.6-32.2 [facility] Comment on above: [...] no longer indicated. Testing performed at [facility], [address] [place] [address] 70005 MCHC (RBC) [Mass/Vol] 33.2 g/dL Normal 32.2-35.5 [facility] Comment on above: [...] no longer indicated. Testing performed at [facility], [address] [place] [address] 57892 MCV (RBC) [Entitic vol] 85.7 fL Normal 79.4-94.8 [facility] Comment on above: [...] no longer indicated. Testing performed at [facility], [address] [place] [address] 99535 Monocytes (Bld) [#/Vol] 1.81 10*3/uL High 0.20-0.90 [facility] Comment on above: [...] no longer indicated. Testing performed at [facility], [address] [place] [address] 05640 Neutrophils (Bld) [#/Vol] 20.04 10*3/uL High 1.60-6.10 [facility] Comment on above: [...] no longer indicated. Testing performed at [facility], [address] [place] [address] 56618 NRBC % (B) 0.0 /100{WBC} Normal 0.0-0.2 [facility] Comment on above: [...] no longer indicated. Testing performed at [facility], [address] [place] [address] 66024 NRBC# (B) 0.00 10*3/uL Normal 0.00-0.00 [facility] Comment on above: [...] no longer indicated. Testing performed at [facility], [address] [place] [address] 98726 Platelet mean volume (Bld) [Entitic vol] 9.9 fL Normal 9.4-12.3 [facility] Comment on above: [...] no longer indicated. Testing performed at [facility], [address] [place] [address] 51140 Platelets (Bld) [#/Vol] 267 10*3/uL Normal 182-369 [facility] Comment on above: [...] no longer indicated. Testing performed at [facility], [address] [place] [address] 57646 RBC (Bld) [#/Vol] 4.21 10*6/uL Normal 3.93-5.22 [facility] Comment on above: Order Comment: Immature Gran [...] no longer indicated. Testing performed at [facility], [address] [place] [address] 50401 RDW-SD (B) 41.1 fL Normal 36.4-46.3 [facility] Comment on above: [...] no longer indicated. Testing performed at [facility], [address] [place] [address] 38822 WBC (Bld) [#/Vol] 22.9 10*3/uL High 4.0-10.0 [facility] Comment on above: Order Comment: Immature Gran [...] no longer indicated. Testing performed at [facility], [address] [place] [address] NECK WITHOUT CONTRASTon 0 08-19-2022 CT [...] Salinas MD On: 08/19/2022 1:25 PM Normal [facility] EST Glomerular Filtration Ra jude 08-19-2022 EAGFR (B) >60 Normal >60 [facility] Comment on above: Order Comment: The c alculated GFR uses the (IDMS)-traceable creatinine MDRD equation and is reported in mL/min/1.73 square meters. This formula is not recommended for use with individuals with unstable creatinine concentrations, extremes in muscle mass and/or body size, or alternative diets and may not be suitable for all patient populations. Testing performed at [facility], [address] [place] [address] Result Comment: The reported eGFR is based on a non- patient, for Americans multiply the result by 1.212. HCG, Serumon 08-19-2022 HCGS Negative Normal [facility] Comment on above: Order Comment: Testi ng performed at [facility], [address] [place] [address] 87270 Result Comment: Note : This test provides only a presumptive diagnosis for . If the HCG result is inconsistent with clinical evidence, results should be confirmed with an alternative method, such as a quantitative HCG. Man Diffon 08-19-2022 Eos, Diff 2 % Normal 0-6 [facility] Comment on above: Order Comment: Testi ng performed at [facility], [address] [place] [address] 10783 Lymphocytes/100 WBC (Bld) 3 % Low 20-53 [facility] Comment on above: Order Comment: Testi ng performed at [facility], [address] [place] [address] 90501 Kerr, Diff 6 % Normal 5-12 [facility] Comment on above: Order Comment: Testi ng performed at [facility], [address] [place] [address] 66711 Segs. Diff 89 % High 34-70 [facility] Comment on above: Order Comment: Testi ng performed at [facility], [address] [place] [address] Slide Scan Normal Normal Normal [facility] Comment on above: Order Comment: Testi ng performed at [facility], [address] [facility] [place] [address] Basic Metabolic Profileon ANIO 12 mmol/L Normal 12-20 [facility] Comment on above: Order Comment: Testi ng performed at [facility], [address] [place] [address] Calcium [Mass/Vol] 9.1 mg/dL Normal 8.4-10.2 [facility] Comment on above: Order Comment: Testi ng performed at [facility], [address] [place] [address] Chloride [Moles/Vol] 106 mmol/L Normal 98-107 [facility] Comment on above: Order Comment: Testi ng performed at [facility], [facility] [place] [address] CO2 [Moles/Vol] 27.0 mmol/L Normal 22.0-30.0 [facility] Comment on above: Order Comment: Testi ng performed at [facility], [address] [place] [address] Creatinine [Mass/Vol] 0.6 mg/dL Normal 0.6-1.2 [facility] Comment on above: Order Comment: Testi ng performed at [facility], [address] [place] [address] Glucose [Mass/Vol] 95 mg/dL Normal 74-106 [facility] Comment on above: Order Comment: Testi ng performed at [facility], [address] [place] [address] Potassium [Moles/Vol] 4.1 mmol/L Normal 3.3-4.9 [facility] Comment on above: Order Comment: Testi ng performed at [facility], [address] [place] [address] Sodium [Moles/Vol] 141 mmol/L Normal 137-145 [facility] Comment on above: Order Comment: Testi ng performed at [facility], [address] [place] [address] 73913 Urea nitrogen [Mass/Vol] 9 mg/dL Normal 8-19 [facility] Comment on above: Order Comment: Testi ng performed at [facility], [address] [place] [address] 21451 CBC w/Auto Diffon 08-08-2022 Basophils (Bld) [#/Vol] 0.04 10*3/uL Normal 0.00-0.10 [facility] Comment on above: [...] no longer indicated. Testing performed at [facility], [address] [place] [address] 39708 Basophils/100 WBC (Bld) 0.4 % Normal 0.1-1.2 [facility] Comment on above: [...] no longer indicated. Testing performed at [facility], [address] [place] [address] 92564 Eosinophils (Bld) [#/Vol] 0.21 10*3/uL Normal 0.00-0.40 [facility] Comment on above: [...] is no longer indicated. [facility], [address] [place] [address] 28281 Eosinophils/100 WBC (Bld) 2.1 % Normal 0.7-5.8 [facility] Comment on above: [...] no longer indicated. Testing performed at [facility], [address] [place] [address] 29721 Erythrocyte distribution width (RBC) [Ratio] 12.9 % Normal 11.7-14.4 [facility] Comment on above: [...] no longer indicated. Testing performed at [facility], [address] [place] [address] 60557 Hematocrit (Bld) [Volume fraction] 35.4 % Normal 34.1-44.9 [facility] Comment on above: [...] no longer indicated. Testing performed at [facility], [address] [place] [address] 26508 Hemoglobin (Bld) [Mass/Vol] 11.2 g/dL Normal 11.2-15.7 [facility] Comment on above: [...] no longer indicated. Testing performed at [facility], [address] [place] [address] 54104 IG % (B) 0.4 % Normal 0.0-0.4 [facility] Comment on above: [...] no longer indicated. Testing performed at [facility], [address] [place] [address] 88869 IG# (B) 0.04 10*3/uL High 0.00-0.00 [facility] Comment on above: [...] no longer indicated. Testing performed at [facility], [address] [place] [address] 61120 Lymphocytes (Bld) [#/Vol] 1.60 10*3/uL Normal 1.20-3.70 [facility] Comment on above: [...] Testing performed at [facility], [address] [place] [address] 36268 Lymphocytes/100 WBC (Bld) 16.3 % Low 19.3-51.7 [facility] Comment on above: [...] no longer indicated. Testing performed at [facility], [address] [place] [address] 74697 MCH (RBC) [Entitic mass] 27.7 pg Normal 25.6-32.2 [facility] Comment on above: [...] no longer indicated. Testing performed at [facility], [address] [place] [address] 52743 MCHC (RBC) [Mass/Vol] 31.6 g/dL Low 32.2-35.5 [facility] Comment on above: [...] no longer indicated. Testing performed at [facility], [address] [place] [address] 99059 MCV (RBC) [Entitic vol] 87.4 fL Normal 79.4-94.8 [facility] Comment on above: [...] no longer indicated. Testing performed at [facility], [address] [place] [address] 16946 Monocytes (Bld) [#/Vol] 0.88 10*3/uL Normal 0.20-0.90 [facility] Comment on above: [...] no longer indicated. Testing performed at [facility], [address] [place] [address] 48277 Monocytes/100 WBC (Bld) 8.9 % Normal 4.7-12.5 [facility] Comment on above: [...] no longer indicated. Testing performed at [facility], [address] [place] [address] 50805 Neutrophils (Bld) [#/Vol] 7.07 10*3/uL High 1.60-6.10 [facility] Comment on above: [...] no longer indicated. Testing performed at [facility], [address] [place] [address] 33285 Neutrophils/100 WBC (Bld) 71.9 % High 34.0-71.1 [facility] Comment on above: [...] indicated. Testing performed at [facility] [employer], [address] [place] [address] 74238 NRBC % (B) 0.0 /100{WBC} Normal 0.0-0.2 [facility] Comment on above: [...] no longer indicated. Testing performed at [facility], [address] [place] [address] 09955 NRBC# (B) 0.00 10*3/uL Normal 0.00-0.00 [facility] Comment on above: [...] no longer indicated. Testing performed at [facility], [address] [place] [address] 63460 Platelet mean volume (Bld) [Entitic vol] 9.2 fL Low 9.4-12.3 [facility] Comment on above: [...] no longer indicated. Testing performed at [facility], [address] [place] [address] 33623 Platelets (Bld) [#/Vol] 315 10*3/uL Normal 182-369 [facility] Comment on above: [...] Testing performed at [facility], [address] [place] [address] 44625 RBC (Bld) [#/Vol] 4.05 10*6/uL Normal 3.93-5.22 [facility] Comment on above: Order Comment: Immature Gran [...] no longer indicated. Testing performed at [facility], [address] [place] [address] 61922 RDW-SD (B) 41.0 fL Normal 36.4-46.3 [facility] Comment on above: [...] no longer indicated. Testing performed at [facility], [address] [place] [address] 17341 WBC (Bld) [#/Vol] 9.8 10*3/uL Normal 4.0-10.0 [facility] Comment on above: Order Comment: Immature [...] no longer indicated. Testing performed at [facility], [address] [place] [address] NECK WITHOUT CONTRASTon 0 08-08-2022 CT [...] Schultz MD On: 08/08/2022 4:07 PM Normal [facility] EST Glomerular Filtration Ra jude 08-08-2022 EAGFR (B) >60 Normal >60 [facility] Comment on above: Order Comment: The c alculated GFR uses the (IDMS)-traceable creatinine MDRD equation and is reported in mL/min/1.73 square meters. This formula is not recommended for use with individuals with unstable creatinine concentrations, extremes in muscle mass and/or body size, or alternative diets and may not be suitable for all patient populations. Testing performed at [facility], [address] [place], [place] [id number] Result Comment: The reported eGFR is based on a non- patient, for Americans multiply the result by 1.212. Pap IG, rfx Aptima HPV, rfx 16/18,45on 06-11-2022 . . Normal [facility] Comment on above: Result Comment: Perf ormed at: WB Performed By: #### P APHR2A #### [facility] [address] [place] [address] Dr. [facility] DIAGNOSIS: Comment Normal [facility] Comment on above: Result Comment: NEGA TIVE FOR INTRAEPITHELIAL LESION OR MALIGNANCY. Performed at: WB Performed By: #### P APHR2A #### [facility] [address] [place] [address] Dr. [facility] HPV Aptima Negative Normal Negative [facility] Comment on above: Result Comment: This nucleic acid amplification test detects fourteen high-risk HPV types (16,18,31,33,35,39,45,51,52,56,58,59,66,68) without differentiation. Performed at: =G Performed By: #### P APHR2A #### [facility] [address] [place] [address] Dr. [facility] HPV Genotype Reflex Comment Normal [facility] Comment on above: Result Comment: Crit eria not met, HPV Genotype not performed. Performed at: WB Performed By: #### P APHR2A #### [facility] [address] [place] [address] Dr. [facility] Methodology: Comment Normal [facility] Comment on above: Result Comment: This liquid based ThinPrep(R) pap test was screened with the use of an image guided system. Performed at: WB Performed By: #### P APHR2A #### [facility] [address] [place] [address] Dr. [facility] Strong Note: Comment Normal [facility] Comment on above: Result [...] WB Performed By: #### P [id number] #### [facility] [address] [place] [address] Dr. Jose Elias Strong Performed by: Comment Normal [facility] Comment on above: Result Comment: Koffi Hutchinson, Oracle Database Architect (ASCP) Performed at: WB Performed By: #### P [id number] #### [facility] [address] [place] [address] Dr. Jose Elias Strong Specimen adequacy: Comment Normal [facility] Comment on above: Result Comment: Sati sfactory for evaluation. Endocervical and/or squamous metaplastic cells (endocervical component) are present. Performed at: WB Performed By: #### P [id number] #### [facility] [address] [place] [address] Dr. Jose Elias Strong PAP ACOG PANEL 2: 21 to 29on 11-20-2021 . . Normal [facility] Comment on above: Performed By: #### [id number] #### [facility] [address] [place] [address] Dr. Jose Elias Strong Age Gdln ACOG Testing - [facility] Comment on above: Performed By: #### [id number] #### [facility] [address] [place] [address] Dr. Jose Elias Strong DIAGNOSIS: Comment [facility] Comment on above: Result Comment: NEGA TIVE FOR INTRAEPITHELIAL LESION OR MALIGNANCY. REACTIVE CELLULAR CHANGES AND/OR REPAIR ARE PRESENT. Performed By: #### [id number] #### [facility] [address] [place] [address] Dr. Jose Elias Strong Electronically signed by: Comment [facility] Comment on above: Result Comment: Melinda Patel MD, Pathologist Performed By: #### [id number] #### [facility] [address] [place] [address] Dr. Jose Elias Strong Methodology: Comment [facility] Comment on above: Result Comment: This liquid based ThinPrep(R) pap test was screened with the use of an image guided system. Performed By: #### [id number] #### [facility] [address] [place] [address] Dr. Jose Elias Strong Note: Comment Normal [facility] Comment on above: Result Comment: The Pap smear is a screening test designed to aid in the detection of premalignant and malignant conditions of the uterine cervix. It is not a diagnostic procedure and should not be used as the sole means of detecting cervical cancer. Both false-positive and false-negative reports do occur. . Performed By: #### [id number] #### [facility] [address] [place] [address] Dr. Jose Elias Strong Performed by: Comment Normal [facility] Comment on above: Result Comment: Lilian Romero Oracle Database Architect (ASCP) Performed By: #### [id number] #### [facility] [address] [place] [address] Dr. Jose Elias Strong Reflex Criteria: Comment Normal [facility] Comment on above: Result Comment: The HPV DNA reflex criteria were not met with this specimen result therefore, no HPV testing was performed. . Performed By: #### [id number] #### [facility] [address] [place] [address] Dr. Jose Elias Strong Specimen adequacy: Comment Normal [facility] Comment on above: Result Comment: Sati sfactory for evaluation. Endocervical and/or squamous metaplastic cells (endocervical component) are present. Performed By: #### [id number] #### [facility] [address] [place] [address] Dr. Jose Elias Strong CBC W MANUAL DIFFon 08-21-19 22 ANISOCYTOSIS 1+ Normal [facility] Comment on above: Performed By: #### T NS #### [facility] [address] [place] [address] Dr. Jose Elias Strong ATYPICAL LYMPH # Normal [facility] Comment on above: Performed By: #### T NS #### [facility] [address] [place] [address] Dr. Jose Elias Strong ATYPICAL LYMPH % Normal [facility] Comment on above: Performed By: #### T NS #### [facility] [address] [place] [address] Dr. Jose Elias Strong BAND # 0.2 103/ul Normal 0.0-0.3 [facility] Comment on above: Performed By: #### T NS #### [facility] [address] [place] [address] Dr. Jose Elias Strong BAND % 1 % Normal 0-5 [facility] Comment on above: Performed By: #### T NS #### [facility] [address] [place] [address] Dr. Jose Elias Strong BASOM # 0.00 103/ul Normal 0.00-0.10 [facility] Comment on above: Performed By: #### T NS #### [facility] [address] [place] [address] Dr. Jose Elias Strong BASOM % 0.0 % Critically low 0.2-2.0 [facility] Comment on above: Performed By: #### T NS #### [facility] [address] [place] [address] Dr. Jose Elias Strong BLAST # Normal [facility] Comment on above: Performed By: #### T NS #### [facility] [address] [place] [address] Dr. Jose Elias Strong BLAST % Normal [facility] Comment on above: Performed By: #### T NS #### [facility] [address] [place] [address] Dr. Jose Elias Strong CORRECTED WBC Normal 4.0-11.0 [facility] Comment on above: Performed By: #### T NS #### [facility] [address] [place] [address] Dr. Jose Elias Strong EOS # 0.00 103/ul Normal 0.00-0.70 [facility] Comment on above: Performed By: #### T NS #### [facility] [address] [place] [address] Dr. Jose Elias Strong EOS% 0.0 % Critically low 0.9-7.0 [facility] Comment on above: Performed By: #### T NS #### [facility] [address] [address] [address] Jose Elias Strong HCT 27.5 % Critically low 36.0-48.0 [facility] Comment on above: Performed By: #### T NS #### [facility] [address] [address] [address] Jose Elias Strong HGB 8.1 g/dl Critically low 12.0-16.0 [facility] Comment on above: Performed By: #### T NS #### [facility] [address] [address] [address] Jose Elias Strong LYMPHM # 1.62 103/ul Normal 1.20-3.80 [facility] Comment on above: Performed By: #### T NS #### [facility] [address] [place] [address] Dr. Jose Elias Strong LYMPHM% 9.0 % Critically low 20.5-60.0 [facility] Comment on above: Performed By: #### T NS #### [facility] [address] [place] [address] Dr. Jose Elias Strong MCH 22.2 pg Critically low 26.7-34.0 [facility] Comment on above: Performed By: #### T NS #### [facility] [address] [place] [address] Dr. Jose Elias Strong MCHC 29.5 g/dl Critically low 29.9-35.2 [facility] Comment on above: Performed By: #### T NS #### [facility] [address] [place] [address] Dr. Jose Elias Strong MCV 75.3 fL Critically low 81.0-99.0 [facility] Comment on above: Performed By: #### T NS #### [facility] [address] [place] [address] Dr. Jose Elias Strong METAMYELOCYTE # Normal [facility] Comment on above: Performed By: #### T NS #### [facility] [address] [place] [address] Dr. Jose Elias Strong METAMYELOCYTE % Normal [facility] Comment on above: Performed By: #### T NS #### [facility] [address] [address] [address] Jose Elias Strong MONOM# 1.62 103/ul Critically high 0.30-0.80 [facility] Comment on above: Performed By: #### T NS #### [facility] [address] [address] [address] Jose Elias Strong MONOM% 9.0 % Normal 1.7-12.0 [facility] Comment on above: Performed By: #### T NS #### [facility] [address] [place] [address] Dr. Jose Elias Strong MPV 9.6 fL Normal 9.5-13.5 [facility] Comment on above: Performed By: #### T NS #### [facility] [address] [place] [address] Dr. Jose Elias Strong MYELOCYTE # Normal [facility] Comment on above: Performed By: #### T NS #### [facility] [address] [place] [address] Dr. Jose Elias Strong MYELOCYTE % Normal [facility] Comment on above: Performed By: #### T NS #### [facility] [address] [place] [address] Dr. Jose Elias Strong NRBC Normal [facility] Comment on above: Performed By: #### T NS #### [facility] [address] [place] [address] Dr. Jose Elias Strong PLT 308 103/ul Normal 150-450 [facility] Comment on above: Performed By: #### T NS #### [facility] [address] [place] [address] Dr. Jose Elias Strong RBC 3.65 106/ul Critically low 4.20-5.40 [facility] Comment on above: Performed By: #### T NS #### [facility] [address] [place] [address] Dr. Jose Elias Strong RDW 15.7 % Critically high 11.0-15.0 [facility] Comment on above: Performed By: #### T NS #### [facility] [address] [address] [address] Jose Elias Strong SEG # 14.58 103/ul Critically high 1.40-6.50 [facility] Comment on above: Performed By: #### T NS #### [facility] [address] [place] [address] Dr. Jose Elias Strong SEG % 81.0 % Critically high 43.0-75.0 [facility] Comment on above: Performed By: #### T NS #### [facility] [address] [place] [address] Dr. Jose Elias Strong WBC 18.0 103/ul Critically high 4.0-11.0 [facility] Comment on above: Performed By: #### T NS #### [facility] [address] [place] [address] Dr. Jose Elias Strong DRUG SCREEN RAPID (URINE)on 08-20-2021 AMP Negative Normal NEGATIVE [facility] Comment on above: Performed By: #### T NS #### [facility] [address] [place] [address] Dr. Jose Elias Strong BAR Negative Normal NEGATIVE [facility] Comment on above: Performed By: #### T NS #### [facility] [address] [place] [address] Dr. Jose Elias Strong BUP Negative Normal NEGATIVE [facility] Comment on above: Performed By: #### T NS #### [facility] [address] [place] [address] Dr. Jose Elias Strong BZO Negative Normal NEGATIVE [facility] Comment on above: Performed By: #### T NS #### [facility] [address] [place] [address] Dr. Jose Elias Strong PAXTON Negative Normal NEGATIVE [facility] Comment on above: Performed By: #### T NS #### [facility] [address] [place] [address] Dr. Jose Elias Strong CUT-OFFS SEE BELOW Normal [facility] Comment on above: Result [...] ng/mL Performed By: #### T NS #### [facility] [address] [place] [address] Dr. Jose Elias Strong DRUG CUT HEADER DRUG CLASS TEST SYSTEM CUT-OFF CONCENTRATIONS ARE FOLLOWS: Normal [facility] Comment on above: Performed By: #### T NS #### [facility] [address] [place] [address] Dr. Jose Elias Strong mAMP Negative Normal NEGATIVE [facility] Comment on above: Performed By: #### T NS #### [facility] [address] [place] [address] Dr. Jose Elias Strong MTD Negative Normal NEGATIVE [facility] Comment on above: Performed By: #### T NS #### [facility] [address] [place] [address] Dr. Jose Elias Strong OPI Negative Normal NEGATIVE [facility] Comment on above: Performed By: #### T NS #### [facility] [address] [place] [address] Dr. Jose Elias Strong OXY Negative Normal NEGATIVE [facility] Comment on above: Performed By: #### T NS #### [facility] [address] [place] [address] Dr. Jose Elias Strong PCP Negative Normal NEGATIVE [facility] Comment on above: Performed By: #### T NS #### [facility] [address] [place] [address] Dr. Jose Elias Strong PPX Negative Normal NEGATIVE [facility] Comment on above: Performed By: #### T NS #### [facility] [address] [place] [address] Dr. Jose Elias Strong TCA Negative Normal NEGATIVE [facility] Comment on above: Performed By: #### T NS #### [facility] [address] [place] [address] Dr. Jose Elias Strong THC Negative Normal NEGATIVE [facility] Comment on above: Performed By: #### T NS #### [facility] [address] [place] [address] Dr. Jose Elias Strong UA (CLEAN/CATCH) SWITCHGEAR REPAIRER/MICRO I F IND.on 08-20-2021 Bilirubin Ql (U) Negative Normal NEGATIVE [facility] Comment on above: Performed By: #### U MICRO, UACSIND #### [facility] [address] [place] [address] Dr. Jose Elias Strong Clarity (U) SL CLOUDY Abnormal CLEAR [facility] Comment on above: Performed By: #### U MICRO, UACSIND #### [facility] [address] [place] [address] Dr. Jose Elias Strong Color (U) RED Abnormal YELLOW [facility] Comment on above: Performed By: #### U MICRO, UACSIND #### [facility] [address] [place] [address] Dr. Jose Elias Strong Glucose Ql (U) Negative Normal NEGATIVE [facility] Comment on above: Performed By: #### U MICRO, UACSIND #### [facility] [address] [place] [address] Dr. Jose Elias Strong Hemoglobin Ql (U) LARGE Abnormal NEGATIVE [facility] Comment on above: Performed By: #### U MICRO, UACSIND #### [facility] [address] [place] [address] Dr. Jose Elias Strong Ketones Ql (U) 15 mg/dl Abnormal NEGATIVE [facility] Comment on above: Performed By: #### U MICRO, UACSIND #### [facility] [address] [place] [address] Dr. Jose Elias Strong LEUKOCYTES TRACE Abnormal NEGATIVE [facility] Comment on above: Performed By: #### U MICRO, UACSIND #### [facility] [address] [place] [address] Dr. Jose Elias Strong Nitrite Ql (U) Negative Normal NEGATIVE [facility] Comment on above: Performed By: #### U MICRO, UACSIND #### [facility] [address] [address] [address] Jose Elias Strong pH (U) 7.0 [pH] Normal 5-9 [facility] Comment on above: Performed By: #### U MICRO, UACSIND #### [facility] [address] [address] [address] Jose Elias Strong SPEC GRAVITY 1.020 Normal 1.005-<=1.025 [facility] Comment on above: Performed By: #### U MICRO, UACSIND #### [facility] [address] [address] [address] Jose Elias Strong UA PROTEIN 30 mg/dl Abnormal NEGATIVE/ TRACE [facility] Comment on above: Performed By: #### U MICRO, UACSIND #### [facility] [address] [place] [address] Dr. Jose Elias Strong UR MICRO IND INDICATED Normal [facility] Comment on above: Performed By: #### U MICRO, UACSIND #### [facility] [address] [address] [address] Jose Elias Strong Urobilinogen Qn (U) 0.2 {Mago'U}/dL Normal 0.2 - 1. 0 [facility] Comment on above: Performed By: #### U MICRO, UACSIND #### [facility] [address] [address] [address] Jose Elias Strong URINE MICROSCOPIC ONLYon BACTERIA NONE SEEN Normal NONE SEEN [facility] Comment on above: Performed By: #### U MICRO, UACSIND #### [facility] [address] [address] [address] Jose Elias Strong Bacteria identified Cx Nom (U) NOT INDICATED Normal [facility] Comment on above: Performed By: #### U MICRO, UACSIND #### [facility] [address] [address] [address] Jose Elias Strong CAST NONE SEEN Normal NONE SEEN [facility] Comment on above: Performed By: #### U MICRO, UACSIND #### [facility] [address] [place] [address] Dr. Jose Elias Strong Crystals LM Nom (Urine sed) NONE SEEN Normal NONE SEEN [facility] Comment on above: Performed By: #### U MICRO, UACSIND #### [facility] [address] [place] [address] Dr. Jose Elias Strong Epithelial cells LM Ql (Urine sed) NONE SEEN Normal NONE SEEN /RARE [facility] Comment on above: Performed By: #### U MICRO, UACSIND #### [facility] [address] [place] [address] Dr. Jose Elias Strong MUCOUS NONE SEEN Normal NONE SEEN [facility] Comment on above: Performed By: #### U MICRO, UACSIND #### [facility] [address] [place] [address] Dr. Jose Elias Strong RBC (U) [#/Vol] /uL Abnormal 0-2 [facility] Comment on above: Performed By: #### U MICRO, UACSIND #### [facility] [address] [place] [address] Dr. Jose Elias Strong WBC 0-2 Abnormal NONE SEEN [facility] Comment on above: Performed By: #### U MICRO, UACSIND #### [facility] [address] [place] [address] Dr. Jose Elias Strong CBC AUTO DIFFon 08-19-2021 BASO # 0.0 103/ul Normal 0.0-0.1 [facility] Comment on above: Performed By: #### T NS #### [facility] [address] [place] [address] Dr. Jose Elias Strong Basophils/100 WBC (Bld) 0.2 % Normal 0.2-2.0 [facility] Comment on above: Performed By: #### T NS #### [facility] [address] [place] [address] Dr. Jose Elias Strong EO # 0.1 103/ul Normal 0.0-0.7 [facility] Comment on above: Performed By: #### T NS #### [facility] [address] [place] [address] Dr. Jose Elias Strong Eosinophils/100 WBC (Bld) 0.7 % Critically low 0.9-7.0 [facility] Comment on above: Performed By: #### T NS #### [facility] [address] [place] [address] Dr. Jose Elias Strong Erythrocyte distribution width (RBC) [Ratio] 15.9 % Critically high 11.0-15.0 [facility] Comment on above: Performed By: #### T NS #### [facility] [address] [place] [address] Dr. Jose Elias Strong Hematocrit (Bld) [Volume fraction] 32.4 % Critically low 36.0-48.0 [facility] Comment on above: Performed By: #### T NS #### [facility] [address] [place] [address] Dr. Jose Elias Strong Hemoglobin (Bld) [Mass/Vol] 9.7 g/dL Critically low 12.0-16.0 [facility] Comment on above: Performed By: #### T NS #### [facility] [address] [place] [address] Dr. Jose Elias Strong IG # 0.19 10e3/ul Critically high 0.00-0.03 [facility] Comment on above: Performed By: #### T NS #### [facility] [address] [place] [address] Dr. Jose Elias Strong IG % 1.4 % Critically high 0.0-0.5 [facility] Comment on above: Performed By: #### T NS #### [facility] [address] [place] [address] Dr. Jose Elias Strong LYMPH # 1.9 103/ul Normal 1.2-3.8 [facility] Comment on above: Performed By: #### T NS #### [facility] [address] [place] [address] Dr. Jose Elias Strong Lymphocytes/100 WBC (Bld) 14.4 % Critically low 20.5-60.0 [facility] Comment on above: Performed By: #### T NS #### [facility] [address] [place] [address] Dr. Jose Elias Strong MANUAL DIFF REQ NO Normal [facility] Comment on above: Performed By: #### T NS #### [facility] [address] [place] [address] Dr. Jose Elias Strong MCH (RBC) [Entitic mass] 22.3 pg Critically low 26.7-34.0 [facility] Comment on above: Performed By: #### T NS #### [facility] [address] [place] [address] Dr. Jose Elias Strong MCHC (RBC) [Mass/Vol] 29.9 g/dL Normal 29.9-35.2 [facility] Comment on above: Performed By: #### T NS #### [facility] [address] [place] [address] Dr. Jose Elias Strong MCV (RBC) [Entitic vol] 74.5 fL Critically low 81.0-99.0 [facility] Comment on above: Performed By: #### T NS #### [facility] [address] [place] [address] Dr. Jose Elias Strong MONO # 1.4 103/ul Critically high 0.3-0.8 [facility] Comment on above: Performed By: #### T NS #### [facility] [address] [place] [address] Dr. Joes Elias Strong Monocytes/100 WBC (Bld) 10.1 % Normal 1.7-12.0 [facility] Comment on above: Performed By: #### T NS #### [facility] [address] [place] [address] Dr. Jose Elias Strong NEUT # 9.8 103/ul Critically high 1.4-6.5 [facility] Comment on above: Performed By: #### T NS #### [facility] [address] [place] [address] Dr. Jose Elias Strong Neutrophils/100 WBC (Bld) 73.2 % Normal 43.0-75.0 [facility] Comment on above: Performed By: #### T NS #### [facility] [address] [place] [address] Dr. Jose Elias Strong Platelet mean volume (Bld) [Entitic vol] 10.0 fL Normal 9.5-13.5 [facility] Comment on above: Performed By: #### T NS #### [facility] [address] [place] [address] Dr. Jose Elias Strong PLT 337 103/ul Normal 150-450 [facility] Comment on above: Performed By: #### T NS #### [facility] [address] [place] [address] Dr. Jose Elias Strong RBC 4.35 106/ul Normal 4.20-5.40 [facility] Comment on above: Performed By: #### T NS #### [facility] [address] [place] [address] Dr. Jose Elias Strong WBC 13.4 103/ul Critically high 4.0-11.0 [facility] Comment on above: Performed By: #### T NS #### [facility] [address] [place] [address] Dr. Jose Elias Strong Covid-19 PCR ([facility])on 08-03 SARS-CoV-2 (COVID-19) RNA [place]+probe Ql (Unsp spec) Not detected Normal NOT DETECTED [facility] Comment on above: Result Comment: When [...] for this test is supported by the Medical Records Clerk of Health and Human Service's declaration that [...] used). Performed By: #### C VDTBH #### [facility] [address] [address] [address] Jose Elias Strong TYPE AND SCREENon 08-19-2021 TYPE AND SCREEN Negative Normal [facility] Comment on above: Performed By: #### T NS #### [facility] [address] [place] [address] Dr. Jose Elias Strong GROUP B STREP CULTUREon 07-05 S. agalactiae Ag Ql (Unsp spec) Culture Observations: NEGATIVE FOR GROUP B STREPTOCOCCUS. Normal [facility] Comment on above: Performed By: #### G BSCX #### [facility] [address] [place] [address] Dr. Jose Elias Strong UA (CLEAN/CATCH) SWITCHGEAR REPAIRER/MICRO I F IND.on 06-28-2021 Bilirubin Ql (U) Negative Normal NEGATIVE [facility] Comment on above: Performed By: #### U ACSIND, UMICRO #### [facility] [address] [place] [address] Dr. Jose Elias Strong Clarity (U) CLEAR Normal CLEAR [facility] Comment on above: Performed By: #### U ACSIND, UMICRO #### [facility] [address] [address] [address] Jose Elias Strong Color (U) LT. YELLOW Normal YELLOW [facility] Comment on above: Performed By: #### U ACSIND, UMICRO #### [facility] [address] [place] [address] Dr. Jose Elias Strong Glucose Ql (U) Negative Normal NEGATIVE [facility] Comment on above: Performed By: #### U ACSIND, UMICRO #### [facility] [address] [place] [address] Dr. Jose Elias Strong Hemoglobin Ql (U) Negative Normal NEGATIVE [facility] Comment on above: Performed By: #### U ACSIND, UMICRO #### [facility] [address] [place] [address] Dr. Jose Elias Strong Ketones Ql (U) Negative Normal NEGATIVE [facility] Comment on above: Performed By: #### U ACSIND, UMICRO #### [facility] [address] [place] [address] Dr. Jose Elias Strong LEUKOCYTES TRACE Abnormal NEGATIVE [facility] Comment on above: Performed By: #### U ACSMICHAEL UMICRO #### [facility] [address] [address] [address] Jose Elias Strong Nitrite Ql (U) Negative Normal NEGATIVE [facility] Comment on above: Performed By: #### U ACSMICHAEL UMICRO #### [facility] [address] [address] [address] Jose Elias Strong pH (U) 6.5 [pH] Normal 5-9 [facility] Comment on above: Performed By: #### U RODOLFO MANCILLAICRO #### [facility] [address] [place] [address] Dr. Jose Elias Strong SPEC GRAVITY 1.015 Normal 1.005-<=1.025 [facility] Comment on above: Performed By: #### U LAURENT UMICRO #### [facility] [address] [place] [address] Dr. Jose Elias Strong UA PROTEIN Negative Normal NEGATIVE/ TRACE [facility] Comment on above: Performed By: #### U RODOLFO MANCILLAICRO #### [facility] [address] [place] [address] Dr. Jose Elias Strong UR MICRO IND INDICATED Normal [facility] Comment on above: Performed By: #### U LAURENT UMICRO #### [facility] [address] [place] [address] Dr. Jose Elias Strong Urobilinogen Qn (U) 0.2 {Mago'U}/dL Normal 0.2 - 1. 0 [facility] Comment on above: Performed By: #### U LAURENT UMICRO #### [facility] [address] [place] [address] Dr. Jose Elias Strong URINE MICROSCOPIC ONLYon AMORPHOUS CRYSTALS FEW Normal [facility] Comment on above: Performed By: #### U ACSMICHAEL UMICRO #### [facility] [address] [place] [address] Dr. Jose Elias Strong BACTERIA TRACE Abnormal NONE SEEN [facility] Comment on above: Performed By: #### U ACSIND, UMICRO #### [facility] [address] [place] [address] Dr. Jos eElias Strong Bacteria identified Cx Nom (U) NOT INDICATED Normal [facility] Comment on above: Performed By: #### U ACSIND, UMICRO #### [facility] [address] [place] [address] Dr. Jose Elias Strong CAST NONE SEEN Normal NONE SEEN [facility] Comment on above: Performed By: #### U ACSIND, UMICRO #### [facility] [address] [place] [address] Dr. Jose Elias Strong Crystals LM Nom (Urine sed) SEEN Abnormal NONE SEEN [facility] Comment on above: Performed By: #### U ACSIND, UMICRO #### [facility] [address] [place] [address] Dr. Jose Elias Strong Epithelial cells LM Ql (Urine sed) RARE Normal NONE SEEN /RARE [facility] Comment on above: Performed By: #### U ACSIND, UMICRO #### [facility] [address] [place] [address] Dr. Jose Elias Strong MUCOUS TRACE Abnormal NONE SEEN [facility] Comment on above: Performed By: #### U ACSIND, UMICRO #### [facility] [address] [place] [address] Dr. Jose Elias Strong RBC 0-2 Normal 0-2 [facility] Comment on above: Performed By: #### U ACSIND, UMICRO #### [facility] [address] [place] [address] Dr. Jose Elias Strong WBC 2-5 Abnormal NONE SEEN [facility] Comment on above: Performed By: #### U ACSIND, UMICRO #### [facility] [address] [place] [address] Dr. Jose Elias Strong CBC AUTO DIFFon 06-19-2021 BASO # 0.0 103/ul Normal 0.0-0.1 [facility] Comment on above: Performed By: #### C BC #### [facility] [address] [address] [address] Jose Elias Strong Basophils/100 WBC (Bld) 0.3 % Normal 0.2-2.0 [facility] Comment on above: Performed By: #### C BC #### [facility] [address] [address] [address] Jose Elias Strong EO # 0.2 103/ul Normal 0.0-0.7 [facility] Comment on above: Performed By: #### C BC #### [facility] [address] [address] [address] Jose Elias Strong Eosinophils/100 WBC (Bld) 2.0 % Normal 0.9-7.0 [facility] Comment on above: Performed By: #### C BC #### [facility] [address] [place] [address] Dr. Jose Elias Strong Erythrocyte distribution width (RBC) [Ratio] 13.6 % Normal 11.0-15.0 [facility] Comment on above: Performed By: #### C BC #### [facility] [address] [address] [address] Jose Elias Strong Hematocrit (Bld) [Volume fraction] 29.4 % Critically low 36.0-48.0 [facility] Comment on above: Performed By: #### C BC #### [facility] [address] [place] [address] Dr. Jose Elias Strong Hemoglobin (Bld) [Mass/Vol] 9.5 g/dL Critically low 12.0-16.0 [facility] Comment on above: Performed By: #### C BC #### [facility] [address] [address] [address] Jose Elias Strong IG # 0.14 10e3/ul Critically high 0.00-0.03 [facility] Comment on above: Performed By: #### C BC #### [facility] [address] [address] [address] Jose Elias Strong IG % 1.4 % Critically high 0.0-0.5 [facility] Comment on above: Performed By: #### C BC #### [facility] [address] [address] [address] Jose Elias Strong LYMPH # 1.6 103/ul Normal 1.2-3.8 [facility] Comment on above: Performed By: #### C BC #### [facility] [address] [address] [address] Jose Elias Strong Lymphocytes/100 WBC (Bld) 15.5 % Critically low 20.5-60.0 [facility] Comment on above: Performed By: #### C BC #### [facility] [address] [place] [address] Dr. Jose Elias Strong MANUAL DIFF REQ NO Normal [facility] Comment on above: Performed By: #### C BC #### [facility] [address] [place] [address] Dr. Jose Elias Strong MCH (RBC) [Entitic mass] 26.8 pg Normal 26.7-34.0 [facility] Comment on above: Performed By: #### C BC #### [facility] [address] [place] [address] Dr. Jose Elias Strong MCHC (RBC) [Mass/Vol] 32.3 g/dL Normal 29.9-35.2 [facility] Comment on above: Performed By: #### C BC #### [facility] [address] [place] [address] Dr. Jose Elias Strong MCV (RBC) [Entitic vol] 82.8 fL Normal 81.0-99.0 [facility] Comment on above: Performed By: #### C BC #### [facility] [address] [place] [address] Dr. Jose Elias Strong MONO # 1.2 103/ul Critically high 0.3-0.8 [facility] Comment on above: Performed By: #### C BC #### [facility] [address] [place] [address] Dr. Jose Elias Strong Monocytes/100 WBC (Bld) 12.2 % Critically high 1.7-12.0 [facility] Comment on above: Performed By: #### C BC #### [facility] [address] [address] [address] Jose Elias Strong NEUT # 7.0 103/ul Critically high 1.4-6.5 [facility] Comment on above: Performed By: #### C BC #### [facility] [address] [address] [address] Jose Elias Strong Neutrophils/100 WBC (Bld) 68.6 % Normal 43.0-75.0 [facility] Comment on above: Performed By: #### C BC #### [facility] [address] [address] [address] Jose Elias Strong Platelet mean volume (Bld) [Entitic vol] 9.1 fL Critically low 9.5-13.5 [facility] Comment on above: Performed By: #### C BC #### [facility] [address] [address] [address] Jose Elias Strong PLT 309 103/ul Normal 150-450 [facility] Comment on above: Performed By: #### C BC #### [facility] [address] [address] [address] Jose Elias Strong RBC 3.55 106/ul Critically low 4.20-5.40 [facility] Comment on above: Performed By: #### C BC #### [facility] [address] [place] [address] Dr. Jose Elias Strong WBC 10.1 103/ul Normal 4.0-11.0 [facility] Comment on above: Performed By: #### C BC #### [facility] [address] [address] [address] Jose Elias Strong GLYCOHEMOGLOBIN A1Con 2021 ADA RECOMMENDATION ADA THERAPEUTIC TARGET 6.0 - 7.0 ACTION SUGGESTED > 7.0 Normal [facility] Comment on above: Performed By: #### T NS #### [facility] [address] [place] [address] Dr. Jose Elias Strong Glucose [Mass/Vol] 97 mg/dL Normal [facility] Comment on above: Performed By: #### T NS #### [facility] [address] [place] [address] Dr. Jose Elias Strong HbA1c (Bld) [Mass fraction] 5.0 % Normal <=6.0 [facility] Comment on above: Performed By: #### T NS #### [facility] [id number] Jose Elias Strong Consenton 10-24-2020 Consent [id number] .00CD:127 [facility] In office Testingon 10-25-19 21 In office Testing [id number] 1.00CD:127 [facility] Registrationon 10-24-2020 Registration [id number] .00CD:127 [facility] Registration [id number] .00CD:127 [facility] Vital Signs Date Time Vital Sign Value Performing Clinician Facility 11-27-2023 14:39-0400 Body height 165.1 cm [facility] Aguilar Work Phone: [facility] 11-27-2023 14:39-0400 Body mass index (BMI) [Ratio] 24 kg/m2 [facility] Agu[facility] Work Phone: [facility] 11-27-2023 14:39-0400 Body temperature 98 [degF] [facility] Arpita Jeff Work Phone: [facility] 11-27-2023 14:39-0400 Body weight 65.4 kg [facility] Arpita Aguilar Work Phone: [facility] 11-27-2023 14:39-0400 Diastolic blood pressure 68 mm[Hg] [facility] Arpita Aguilar Work Phone: [facility] 11-27-2023 14:39-0400 Heart rate 87 /min [facility] Arpita Aguilar Work Phone: [facility] 11-27-2023 14:39-0400 Respiratory rate 18 /min [facility]-C Arpita Aguilar Work Phone: [facility] 11-27-2023 14:39-0400 SaO2% (BldA) [Mass fraction] 97 % [facility] Arpita Aguilar Work Phone: [facility] 11-27-2023 14:39-0400 Systolic blood pressure 98 mm[Hg] [facility]-C Arpita Aguilar Work Phone: [facility] 06-12-2023 11:02-0500 Body mass index (BMI) [Ratio] 30.26 kg/m2 Mary Venkat DO Work Phone: [facility] 06-12-2023 11:02-0500 Body weight 77.47 kg Mary Venkat DO Work Phone: [facility] 06-12-2023 11:02-0500 Diastolic blood pressure 70 mm[Hg] Mary Venkat DO Work Phone: [facility] 06-12-2023 11:02-0500 Systolic blood pressure 118 mm[Hg] Mary Venkat DO Work Phone: [facility] Encounters Encounter Date Encounter Type Care Provider Facility Start: 11-27-2023 End: 11-27-2023 ambulatory CASTING ROOM OPERATOR-C Arpita Aguilar Work Phone: [facility] Work Phone: Start: 11-27-2023 End: 11-27-2023 Patient encounter procedure CASTING ROOM OPERATOR-C Arpita Aguilar Work Phone: [facility] Work Phone: Start: 09-10-2023 End: 09-10-2023 ambulatory ERIKA ROCIO Not Available Start: 07-23-2023 End: 07-23-2023 ambulatory ERIKA ROCIO Not Available Start: 07-08-2023 End: 07-08-2023 ambulatory MARY VENKAT Not Available Start: 06-24-2023 End: 06-24-2023 ambulatory ERIKA ROCIO Not Available Start: 06-12-2023 End: 06-12-2023 ambulatory MARY VENKAT Not Available Start: 06-12-2023 End: 06-12-2023 Office outpatient visit 15 minutes Mary Robledo DO Work Phone: [facility] Comment on above: Third trimester preg jun Start: 05-29-2023 End: 05-29-2023 ambulatory ERIKA CHAN Not Available Start: 04-23-2023 End: 04-23-2023 ambulatory MARY VENKAT Not Available Start: 03-19-2023 End: 03-19-2023 ambulatory MARY VENKAT Not Available Start: 12-10-2022 ambulatory ALEXANDER [facility] Start: 11-19-2022 End: 11-19-2022 ambulatory YOMAIRA [facility] Start: 10-28-2022 End: 10-29-2022 ambulatory ALEXANDER [facility] Start: 08-29-2022 ambulatory YOMAIRA [facility] Start: 08-19-2022 End: 08-19-2022 Emergency department patient visit YOMAIRA GUILLEN [facility] Start: 08-08-2022 End: 08-08-2022 Emergency department patient visit JERRY WALLS [facility] Start: 06-04-2022 End: 06-04-[address] MARY ROBLEDO Facility:[facility] Start: 11-14-2021 End: 11-14-[address] MARY ROBLEDO Facility:[facility] Start: 09-05-2021 End: 09-17-[address] MARY ROBLEDO Facility:[facility] Start: 08-27-2021 End: 08-27-[address] MARY ROBLEDO Facility:[facility] Start: 08-19-2021 End: 08-21-2021 Evaluation and management of inpatient DR MARY ROBLEDO Facility:[facility] Start: 08-01-2021 End: 08-01-[address] MARY ROBLEDO Facility:[facility] Start: 06-28-2021 End: 06-28-2021 ambulatory TIM YADAV Facility:[facility] Start: 06-19-2021 End: 06-20-[address] MARY ORBLEDO Facility:[facility] Procedures Date Procedure Procedure Detail Performing Clinician Start: 06-12-2023 Urnls dip stick/tabl et rgnt non-auto w/o micrscp Mary Robledo DO Work Phone: Start: 08-19-2021 Delivery of Products of Conception, External Approach DR MARY ROBLEDO Plan of Treatment Date Care Activity Detail Author Start: 06-24-2023 End: 06-24-2023 Patient encounter procedure 06/24/2023 1:00 PM EST Routine [facility] [address] [place] [id number] Erika Chan PA [address] [place] [address] [facility] Payers Date Payer Category Payer Medicaid [id number] 2022 Medicaid [employer] [place] [id number] 2022-Present [address] [place] [address] [id number] 1995 Unknown [id number] 1995 Unknown [id number] 2.840.1.130979.3.579.2.593 1995 Unknown [id number] 2.840.1.354216.3.579.2.593 1995 Unknown [id number] 2.840.1.470628.3.579.2.593 1995 Unknown [id number] 2.840.1.321732.3.579.2.593 1995 Unknown [id number] 2.840.1.204285.3.579.2.593 1995 Unknown [id number] 2.16.840.1.758175.3.579.2.593 1995 Unknown [id number] 2.16.840.1.364726.3.579.2.593 1995 Unknown [id number] 2.16.840.1.384351.3.579.2.1212 1995 Unknown [id number] 2.16.840.1.520070.3.579.2.1212 1995 Unknown [id number] 2.16.840.1.803151.3.579.2.1212 1995 Unknown [id number] 2.16.840.1.183963.3.579.2.1212 1995 Unknown [id number] 2.16.840.1.979011.3.579.2.1212 1995 Unknown [id number] 2.16.840.1.486143.3.579.2.1212 1995 Unknown [id number] 2.16.840.1.409202.3.579.2.1258 1995 Unknown [id number] 2.16.840.1.705550.3.579.2.1258 1995 Unknown [id number] 2.16.840.1.336278.3.579.2.1258 1995 Unknown [id number] 2.16.840.1.519167.3.579.2.1258 1995 Unknown [id number] 2.16.840.1.873625.3.579.2.1258 1995 Unknown [id number] 2.16.840.1.804508.3.579.2.1258 1995 Unknown [id number] 2.16.840.1.201084.3.579.2.1258 1995 Unknown [id number] 2.16.840.1.372218.3.579.2.1259 1959 Unknown [id number] Social History Date Type Detail Facility Start: 10-21-2022 End: 11-27-2023 Tobacco smoking status NHIS Never smoked tobacco [facility] Start: 10-21-2022 Tobacco use and exposure Smoke less tobacco non-user [facility] Start: 06-12-2023 Alcohol intake Lifetime non-d deborah (finding) [facility] Start: 10-21-2022 History of Social function [facility] Start: 10-21-2022 Tobacco use panel [facility] Start: 11-11-2022 [facility] Start: 1995 Sex Assigned At Female [facility] Start: 10-20-2022 Gender identity Identifies as female gender (finding) [facility] Start: 10-20-2022 Sexual orientation Bisexual (finding ) [facility] Start: 11-27-2023 With Spouse/Significant Other [facility] Start: 11-27-2023 0 [facility] Start: 11-27-2023 Denies Use [facility] History of Present illness Narrative 06-12-2023 Mary [...] Ambulatory Problems Diagnosis Date Noted Acute asthma ([facility]) 12/03/2022 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 12/03/2022 Neck swelling 08/19/2022 Schizoaffective disorder ([facility]) 12/03/2022 Resolved Ambulatory Problems Diagnosis Date Noted No Resolved Ambulatory Problems Past Medical History: Diagnosis Date BMI 24.0-24.9, adult Depot contraception Encounter for IUD insertion Encounter for Papanicolaou cervical smear to confirm findings of recent normal smear following initial abnormal smear Intrauterine device surveillance Schizo-affective psychosis (CMS/HCC) Urine test negative Family History Problem Relation [...] nursing note reviewed. Exam conducted with a chief deputy coroner present. Vitals: Estimated body mass index is [...] incidental documented in this encounter [facility] Evaluation note Note Date & Type Note Facility Evaluation note No assessment information availa [facility] [employer] Work Phone: Summary Purpose Family History No Family History Records FoundNo Family History Records FoundNo Family History Records FoundNo Family History Records Found Advance Directives No Advanced Directives Records FoundNo Advanced Directives Records FoundNo Advanced Directives Records FoundNo Advanced Directives Records Found Chief Complaint and Reason for Visit Chief Complaint fairlawary px Additional Source Comments INFORMATION SOURCE (unrecogn ized section and content) DATE CREATED AUTHOR 10/25/2020 [place] [facility] DATE CREATED AUTHOR AUTHOR'S ORGANIZ ATION 06/11/2022 [facility] DATE CREATED AUTHOR AUTHOR'S ORGANIZ ATION 12/16/2022 [facility] DATE CREATED AUTHOR AUTHOR'S ORGANIZ ATION 09/12/2023 [facility] [employer] Reason for Visit (unrecogniz ed section and content) Reason Comments Routine Visit Care Teams (unrecognized sec tion and content) Team Status: Inactive Member Role Status Dates JOANN Vicente Attending Provider Active Sta rt: November 27, 2023 End: November 27, 2023 Goals (unrecognized section and content) Goals may be documented in a n alternate section FOR RECORDS PERTAINING TO PATIENTS WHO ARE [...] BE BASED ON THE PRIMARY CLINICAL RECORDS. [facility] [employer] [facility]. provides no warranty or guarantee of the accuracy or completeness of information in this document.
[2024-01-21 14:47] LABS: Basophils Percent Auto 0.8 % (0.2-2.0); Eosinophils Absolute Auto 0.2 10^3/uL (0.0-0.7); Eosinophils Percent Auto 4.3 % (0.9-7.0); Hematocrit 35.3 % (36.0-48.0); Hemoglobin 11.7 g/dL (12.0-16.0); Lymphocytes Absolute Auto 1.3 10^3/uL (1.2-3.8); Lymphocytes Percent Auto 35.8 % (20.5-60.0); Mean Corpuscular HGB Conc 33.1 g/dL (29.9-35.2); Mean Corpuscular Hemoglobin 30.2 pg (26.7-34.0); Mean Corpuscular Volume 91.2 fL (81.0-99.0); Mean Platelet Volume 10.2 fL (9.5-13.5); Monocytes Absolute Auto 0.4 10^3/uL (0.3-0.8); Monocytes Percent Auto 11.8 % (1.7-12.0); Neutrophils Absolute Auto 1.8 10^3/uL (1.4-6.5); Neutrophils Percent Auto 47.3 % (43.0-75.0); Platelet Count 279 10^3/uL (150-450); Red Blood Count 3.87 10^6/uL (4.20-5.40); Red Cell Distribution Width 12.2 % (11.0-15.0); White Blood Count 3.7 10^3/uL (4.0-11.0)
[2024-01-21 15:29] LABS: Free T4 0.62 ng/dL (0.76-1.46)
[2024-01-21 15:38] LABS: Alanine Aminotransferase 15 U/L (14-59); Albumin Globulin Ratio 1.1; Alkaline Phosphatase 79 U/L (46-116); Anion Gap 5.6; Aspartate Amino Transferase 9 U/L (15-37); BUN Creatinine Ratio 13.2; Bilirubin Total 0.7 mg/dL (0.2-1.0); Calcium 8.8 mg/dL (8.5-10.1); Carbon Dioxide 31.7 mmol/L (21.0-32.0); Chloride 104 mmol/L (98-107); Estimated GFR (African America >60 (>=60); Estimated GFR (Non-African Ame >60 (>=60); Globulin 3.6 g/dL; Glucose 88 mg/dL (74-106); Potassium 3.3 mmol/L (3.5-5.1); Sodium 138 mmol/L (136-145); Thyroid Stimulating Hormone 24.798 uIU/mL (0.358-3.740); Total Protein 7.6 g/dL (6.4-8.2)
[2024-01-21 15:40] LABS: HCG Quantitative 8 mIU/mL
== END 2024-01-21 14:15 | disposition home or self-care (01) ==
LOC: LAB 14:15
PROVIDERS: PCP Family Medicine; Visit Provider Family Medicine
DX: Z32.01 Encounter for pregnancy test, result positive (principal)
CPT/HCPCS: 36415; 80053; 80307; 84439; 84443; 84702; 85025

== ENCOUNTER 2024-01-26 11:08 | Outpatient (OUT) | payer OTHER, SELFPAY ==
--- OUTSIDE RECORDS SUMMARY | 2024-01-26 11:27 | XMS_ITS | CCD ---
Author Organization [facility] Care Team Providers Care Data Processing Supervisor Name Role Phone VENKAT, DR HERNANDEZ [...] ERIKA Attending Unavailable JOANN Aguilar Attending Provider [phone] Allergies Allergy Classification Reported Allergen(s) Allergy Type Date of Onset Reaction(s) Facility (2 sources) Latex; Translations: [LATEX] Drug allergy (disorder) [address] [facility] Repository (2 sources) Leucine; Translations: [NICKEL] Drug Allergy [address] [facility] Repository (2 sources) Penicillins; Translations: [PENICILLINS] Drug allergy (disorder) [address] [facility] Repository (1 source) Shellfish Drug allergy (disorder) [address] [facility] Repository (2 sources) Iodine; Translations: [IODINE] Drug Allergy 3 [facility] Repository (1 source) SHELLFISH CONTAINING PRODUCTS; Translations: [SHELLFISH CONTAINING PRODUCTS] Propensity to adverse reactions to drug (disorder) 3 [facility] Repository (1 source) VENOM-HONEY BEE; Translations: [VENOM-HONEY BEE] Propensity to adverse reactions to drug (disorder) 3 [facility] Repository (1 source) Amoxicillin Drug Allergy 3 Unknown [facility] Healthcare (1 source) Bee pollen Allergy to substance 3 Unknown [facility] Healthcare (1 source) Honey bee venom Propensity to adverse reactions 3 [facility] (1 source) Latex Allergy to substance 3 Unknown [facility] Healthcare (1 source) nickel sulfate Drug Allergy 3 [facility] (1 source) Penicillin G Drug Allergy 3 Unknown [facility] Healthcare (1 source) Shellfish-Derive d Products Drug Allergy 3 Unknown [facility] Healthcare (1 source) Penicillins Propensity to adverse reactions 4 [facility] (1 source) Shellfish Allergy to substance 4 Hives [facility] Medications Current Medications Medication Drug Class(es) Dates Sig (Normalized) Sig (Original) [id number] 200 actuat albuterol 0.09 mg/actuat metered dose [...] UA Negative Negative - 4(70) +++ mg/dL [facility] Blood, UA Negative Negative - 50 Yovany/mcL [facility] Clarity, UA Clear [facility] Color, UA Yellow [facility] Glucose, UA Negative Negative - 2000(110) ++++ mg/dL [facility] Interpretation and review of laboratory results Abnormal [facility] Ketones, UA Negative Negative - 160(16) ++++ mg/dL [facility] Leukocytes, UA Positive Negative - 500+++ Jamey/mcL [facility] Nitrite, UA Negative Negative - Positive [facility] pH, UA 5.5 5 - 9 [facility] Protein, UA Positive Negative - 2000(20) ++++ mg/dL [facility] Spec Grav, UA 1.020 1 - 1.03 [facility] Urobilinogen, UA 1.0 0.2 - 12 mg/dL [facility] HCG, Urineon 11-19-2022 Beta HCG ( test) Ql (U) Negative Normal [facility] Comment on above: Order Comment: The c alculated GFR uses the (IDMS)-traceable creatinine MDRD equation and is reported in mL/min/1.73 square meters. This formula is not recommended for use with individuals with unstable creatinine concentrations, extremes in muscle mass and/or body size, or alternative diets and may not be suitable for all patient populations. Testing performed at [facility], [address] [place] [address] 99085 Result Comment: Note : This test provides only a presumptive diagnosis for . If the HCG result is inconsistent with clinical evidence, results should be confirmed with an alternative method, such as a quantitative HCG. Basic Metabolic Profileon ANIO 11 mmol/L Low 12-20 [facility] Comment on above: Order Comment: Testi ng performed at [facility], [address] [place] [address] 21858 Calcium [Mass/Vol] 9.5 mg/dL Normal 8.4-10.2 [facility] Comment on above: Order Comment: Testi ng performed at [facility], [address] [place] [address] 82746 Chloride [Moles/Vol] 107 mmol/L Normal 98-107 [facility] Comment on above: Order Comment: Testi ng performed at [facility], [address] [place] [address] 73292 CO2 [Moles/Vol] 23.0 mmol/L Normal 22.0-30.0 [facility] Comment on above: Order Comment: Testi ng performed at [facility], [address] [place] [address] 45952 Creatinine [Mass/Vol] 0.7 mg/dL Normal 0.6-1.2 [facility] Comment on above: Order Comment: Testi ng performed at [facility], [address] [place] [address] 20773 Glucose [Mass/Vol] 118 mg/dL High 74-106 [facility] Comment on above: Order Comment: Testi ng performed at [facility], [address] [place] [address] 60166 Potassium [Moles/Vol] 4.1 mmol/L Normal 3.3-4.9 [facility] Comment on above: Order Comment: Testi ng performed at [facility], [address] [place] [address] 66855 Sodium [Moles/Vol] 137 mmol/L Normal 137-145 [facility] Comment on above: Order Comment: Testi ng performed at [facility], [address] [place] [address] 75308 Urea nitrogen [Mass/Vol] 14 mg/dL Normal 8-19 [facility] Comment on above: Order Comment: Testi ng performed at [facility], [address] [place] [address] 28064 CBC w/Auto Diffon 08-19-2022 Basophils (Bld) [#/Vol] 0.04 10*3/uL Normal 0.00-0.10 [facility] Comment on above: Order [...] no longer indicated. Testing performed at [facility], [address] [place] [address] 80201 Eosinophils (Bld) [#/Vol] 0.05 10*3/uL Normal 0.00-0.40 [facility] Comment on above: Order [...] no longer indicated. Testing performed at [facility], [address] [place] [address] 55755 Erythrocyte distribution width (RBC) [Ratio] 13.3 % Normal 11.7-14.4 [facility] Comment on above: Order [...] no longer indicated. Testing performed at [facility], [address] [place] [address] 56576 Hematocrit (Bld) [Volume fraction] 36.1 % Normal 34.1-44.9 [facility] Comment on above: Order [...] longer indicated. Testing performed at [facility], [address] [place] [address] 07895 Hemoglobin (Bld) [Mass/Vol] 12.0 g/dL Normal 11.2-15.7 [facility] Comment on above: Order [...] longer indicated. Testing performed at [facility], [address] [place], [place] [phone] IG % (B) 0.6 % High 0.0-0.4 [facility] Comment on above: Order [...] no longer indicated. Testing performed at [facility], [address] [place] [address] 31919 IG# (B) 0.14 10*3/uL High 0.00-0.00 [facility] Comment on above: Order [...] longer indicated. Testing performed at [facility], [address] [place] [address] 86100 Lymphocytes (Bld) [#/Vol] 0.81 10*3/uL Low 1.20-3.70 [facility] Comment on above: Order [...] no longer indicated. Testing performed at [facility], [address] [place] [address] 49553 MCH (RBC) [Entitic mass] 28.5 pg Normal 25.6-32.2 [facility] Comment on above: Order [...] no longer indicated. Testing performed at [facility], [address] [place] [address] 92397 MCHC (RBC) [Mass/Vol] 33.2 g/dL Normal 32.2-35.5 [facility] Comment on above: Order [...] no longer indicated. Testing performed at [facility], [address] [place] [address] 70468 MCV (RBC) [Entitic vol] 85.7 fL Normal 79.4-94.8 [facility] Comment on above: Order [...] no longer indicated. Testing performed at [facility], [address] [place] [address] 35940 Monocytes (Bld) [#/Vol] 1.81 10*3/uL High 0.20-0.90 [facility] Comment on above: Order [...] no longer indicated. Testing performed at [facility], [address] [place] [address] 14137 Neutrophils (Bld) [#/Vol] 20.04 10*3/uL High 1.60-6.10 [facility] Comment on above: Order [...] no longer indicated. Testing performed at [facility], [address] [place] [address] 03891 NRBC % (B) 0.0 /100{WBC} Normal 0.0-0.2 [facility] Comment on above: Order [...] no longer indicated. Testing performed at [facility], [address] [place] [address] 77825 NRBC# (B) 0.00 10*3/uL Normal 0.00-0.00 [facility] Comment on above: Order [...] no longer indicated. Testing performed at [facility], [address] [place] [address] 91618 Platelet mean volume (Bld) [Entitic vol] 9.9 fL Normal 9.4-12.3 [facility] Comment on above: Order [...] no longer indicated. Testing performed at [facility], [address] [place] [address] 35417 Platelets (Bld) [#/Vol] 267 10*3/uL Normal 182-369 [facility] Comment on above: Order [...] no longer indicated. Testing performed at [facility], [address] [place] [address] 15759 RBC (Bld) [#/Vol] 4.21 10*6/uL Normal 3.93-5.22 [facility] Comment on above: Order Comment: Immature [...] no longer indicated. Testing performed at [facility], [address] [place] [address] 34930 RDW-SD (B) 41.1 fL Normal 36.4-46.3 [facility] Comment on above: Order [...] no longer indicated. Testing performed at [facility], [address] [place] [address] 95173 WBC (Bld) [#/Vol] 22.9 10*3/uL High 4.0-10.0 [facility] Comment on above: Order Comment: Immature [...] no longer indicated. Testing performed at [facility], [address] [place] [address] NECK WITHOUT CONTRASTon 0 08-19-2022 CT [...] Salinas MD On: 08/19/2022 1:25 PM Normal [facility] EST Glomerular Filtration Ra jude 08-19-2022 EAGFR (B) >60 Normal >60 [facility] Comment on above: Order Comment: The c alculated GFR uses the (IDMS)-traceable creatinine MDRD equation and is reported in mL/min/1.73 square meters. This formula is not recommended for use with individuals with unstable creatinine concentrations, extremes in muscle mass and/or body size, or alternative diets and may not be suitable for all patient populations. Testing performed at [facility], [address] [place] [address] Result Comment: The reported eGFR is based on a non- patient, for Americans multiply the result by 1.212. HCG, Serumon 08-19-2022 HCGS Negative Normal [facility] Comment on above: Order Comment: Testi ng performed at [facility], [address] [place] [address] 05442 Result Comment: Note : This test provides only a presumptive diagnosis for . If the HCG result is inconsistent with clinical evidence, results should be confirmed with an alternative method, such as a quantitative HCG. Man Diffon 08-19-2022 Eos, Diff 2 % Normal 0-6 [facility] Comment on above: Order Comment: Testi ng performed at [facility], [address] [place] [address] 94749 Lymphocytes/100 WBC (Bld) 3 % Low 20-53 [facility] Comment on above: Order Comment: Testi ng performed at [facility], [address] [place] [address] 53004 Bibb, Diff 6 % Normal 5-12 [facility] Comment on above: Order Comment: Testi ng performed at [facility], [address] [place] [address] 13428 Segs. Diff 89 % High 34-70 [facility] Comment on above: Order Comment: Testi ng performed at [facility], [address] [place] [address] Slide Scan Normal Normal Normal [facility] Comment on above: Order Comment: Testi ng performed at [facility], [address] [facility] [place] [address] Basic Metabolic Profileon ANIO 12 mmol/L Normal 12-20 [facility] Comment on above: Order Comment: Testi ng performed at [facility], [address] [place] [address] Calcium [Mass/Vol] 9.1 mg/dL Normal 8.4-10.2 [facility] Comment on above: Order Comment: Testi ng performed at [facility], [address] [place] [address] Chloride [Moles/Vol] 106 mmol/L Normal 98-107 [facility] Comment on above: Order Comment: Testi ng performed at [facility], [facility] [place] [address] CO2 [Moles/Vol] 27.0 mmol/L Normal 22.0-30.0 [facility] Comment on above: Order Comment: Testi ng performed at [facility], [address] [place] [address] Creatinine [Mass/Vol] 0.6 mg/dL Normal 0.6-1.2 [facility] Comment on above: Order Comment: Testi ng performed at [facility], [address] [place] [address] Glucose [Mass/Vol] 95 mg/dL Normal 74-106 [facility] Comment on above: Order Comment: Testi ng performed at [facility], [address] [place] [address] Potassium [Moles/Vol] 4.1 mmol/L Normal 3.3-4.9 [facility] Comment on above: Order Comment: Testi ng performed at [facility], [address] [place] [address] Sodium [Moles/Vol] 141 mmol/L Normal 137-145 [facility] Comment on above: Order Comment: Testi ng performed at [facility], [address] [place] [address] 31928 Urea nitrogen [Mass/Vol] 9 mg/dL Normal 8-19 [facility] Comment on above: Order Comment: Testi ng performed at [facility], [address] [place] [address] 39396 CBC w/Auto Diffon 08-08-2022 Basophils (Bld) [#/Vol] 0.04 10*3/uL Normal 0.00-0.10 [facility] Comment on above: Order [...] no longer indicated. Testing performed at [facility], [address] [place] [address] 19286 Basophils/100 WBC (Bld) 0.4 % Normal 0.1-1.2 [facility] Comment on above: Order [...] no longer indicated. Testing performed at [facility], [address] [place] [address] 89328 Eosinophils (Bld) [#/Vol] 0.21 10*3/uL Normal 0.00-0.40 [facility] Comment on above: Order [...] is no longer indicated. Testing performed at [facility], [address] [place] [address] 88672 Eosinophils/100 WBC (Bld) 2.1 % Normal 0.7-5.8 [facility] Comment on above: Order [...] no longer indicated. Testing performed at [facility], [address] [place] [address] 65613 Erythrocyte distribution width (RBC) [Ratio] 12.9 % Normal 11.7-14.4 [facility] Comment on above: Order [...] no longer indicated. Testing performed at [facility], [address] [place] [address] 38973 Hematocrit (Bld) [Volume fraction] 35.4 % Normal 34.1-44.9 [facility] Comment on above: Order [...] no longer indicated. Testing performed at [facility], [address] [place] [address] 12132 Hemoglobin (Bld) [Mass/Vol] 11.2 g/dL Normal 11.2-15.7 [facility] Comment on above: Order [...] no longer indicated. Testing performed at [facility], [address] [place] [address] 20770 IG % (B) 0.4 % Normal 0.0-0.4 [facility] Comment on above: Order [...] no longer indicated. Testing performed at [facility], [address] [place] [address] 19470 IG# (B) 0.04 10*3/uL High 0.00-0.00 [facility] Comment on above: Order [...] no longer indicated. Testing performed at [facility], [address] [place] [address] 16550 Lymphocytes (Bld) [#/Vol] 1.60 10*3/uL Normal 1.20-3.70 [facility] Comment on above: Order [...] longer indicated. Testing performed at [facility], [address] [place] [address] 14871 Lymphocytes/100 WBC (Bld) 16.3 % Low 19.3-51.7 [facility] Comment on above: Order [...] no longer indicated. Testing performed at [facility], [address] [place] [address] 69971 MCH (RBC) [Entitic mass] 27.7 pg Normal 25.6-32.2 [facility] Comment on above: Order [...] no longer indicated. Testing performed at [facility], [address] [place] [address] 41294 MCHC (RBC) [Mass/Vol] 31.6 g/dL Low 32.2-35.5 [facility] Comment on above: Order [...] no longer indicated. Testing performed at [facility], [address] [place] [address] 46628 MCV (RBC) [Entitic vol] 87.4 fL Normal 79.4-94.8 [facility] Comment on above: Order [...] no longer indicated. Testing performed at [facility], [address] [place] [address] 89045 Monocytes (Bld) [#/Vol] 0.88 10*3/uL Normal 0.20-0.90 [facility] Comment on above: Order [...] no longer indicated. Testing performed at [facility], [address] [place] [address] 09485 Monocytes/100 WBC (Bld) 8.9 % Normal 4.7-12.5 [facility] Comment on above: Order [...] no longer indicated. Testing performed at [facility], [address] [place] [address] 49847 Neutrophils (Bld) [#/Vol] 7.07 10*3/uL High 1.60-6.10 [facility] Comment on above: Order [...] no longer indicated. Testing performed at [facility], [address] [place] [address] 67984 Neutrophils/100 WBC (Bld) 71.9 % High 34.0-71.1 [facility] Comment on above: Order [...] longer indicated. Testing performed at [facility] [employer], [address] [place] [address] 94660 NRBC % (B) 0.0 /100{WBC} Normal 0.0-0.2 [facility] Comment on above: Order [...] no longer indicated. Testing performed at [facility], [address] [place] [address] 89683 NRBC# (B) 0.00 10*3/uL Normal 0.00-0.00 [facility] Comment on above: Order [...] no longer indicated. Testing performed at [facility], [address] [place] [address] 73191 Platelet mean volume (Bld) [Entitic vol] 9.2 fL Low 9.4-12.3 [facility] Comment on above: Order [...] no longer indicated. Testing performed at [facility], [address] [place] [address] 14150 Platelets (Bld) [#/Vol] 315 10*3/uL Normal 182-369 [facility] Comment on above: Order [...] longer indicated. Testing performed at [facility], [address] [place] [address] 16413 RBC (Bld) [#/Vol] 4.05 10*6/uL Normal 3.93-5.22 [facility] Comment on above: Order Comment: Immature [...] no longer indicated. Testing performed at [facility], [address] [place] [address] 59529 RDW-SD (B) 41.0 fL Normal 36.4-46.3 [facility] Comment on above: Order [...] no longer indicated. Testing performed at [facility], [address] [place] [address] 58196 WBC (Bld) [#/Vol] 9.8 10*3/uL Normal 4.0-10.0 [facility] Comment on above: Order Comment: [...] no longer indicated. Testing performed at [facility], [address] [place] [address] NECK WITHOUT CONTRASTon 0 08-08-2022 CT [...] Schultz MD On: 08/08/2022 4:07 PM Normal [facility] EST Glomerular Filtration Ra jude 08-08-2022 EAGFR (B) >60 Normal >60 [facility] Comment on above: Order Comment: The c alculated GFR uses the (IDMS)-traceable creatinine MDRD equation and is reported in mL/min/1.73 square meters. This formula is not recommended for use with individuals with unstable creatinine concentrations, extremes in muscle mass and/or body size, or alternative diets and may not be suitable for all patient populations. Testing performed at [facility], [address] [place], [place] [id number] Result Comment: The reported eGFR is based on a non- patient, for Americans multiply the result by 1.212. Pap IG, rfx Aptima HPV, rfx 16/18,45on 06-11-2022 . . Normal [facility] Comment on above: Result Comment: Perf ormed at: WB Performed By: #### P APHR2A #### [facility] [address] [place] [address] Dr. [facility] DIAGNOSIS: Comment Normal [facility] Comment on above: Result Comment: NEGA TIVE FOR INTRAEPITHELIAL LESION OR MALIGNANCY. Performed at: WB Performed By: #### P APHR2A #### [facility] [address] [place] [address] Dr. [facility] Strong HPV Aptima Negative Normal Negative [facility] Comment on above: Result Comment: This nucleic acid amplification test detects fourteen high-risk HPV types (16,18,31,33,35,39,45,51,52,56,58,59,66,68) without differentiation. Performed at: =G Performed By: #### P APHR2A #### [facility] [address] [place] [address] Dr. Jose [facility] HPV Genotype Reflex Comment Normal [facility] Comment on above: Result Comment: Crit eria not met, HPV Genotype not performed. Performed at: WB Performed By: #### P APHR2A #### [facility] [address] [place] [address] Dr. Jose [facility] Strong Methodology: Comment Normal [facility] Comment on above: Result Comment: This liquid based ThinPrep(R) pap test was screened with the use of an image guided system. Performed at: WB Performed By: #### P APHR2A #### [facility] [address] [place] [address] Dr. Jose [facility] Strong Note: Comment Normal [facility] Comment on above: Result Comment: The [...] WB Performed By: #### P APHR2A #### [facility] [address] [place] [address] Dr. Jose [facility] Strong Performed by: Comment Normal [facility] Comment on above: Result Comment: Koffi Hutchinson, Wardrobe Coordinator (ASCP) Performed at: WB Performed By: #### P APHR2A #### [facility] [address] [place] [address] Dr. Jose [facility] Strong Specimen adequacy: Comment Normal [facility] Comment on above: Result Comment: Sati sfactory for evaluation. Endocervical and/or squamous metaplastic cells (endocervical component) are present. Performed at: WB Performed By: #### P APHR2A #### [facility] [address] [place] [address] Dr. Jose [facility] PAP ACOG PANEL 2: 21 to 29on 11-20-2021 . . Normal [facility] Comment on above: Performed By: #### [id number] #### [facility] [address] [place] [address] Dr. Jose Elias Strong Age Gdln ACOG Testing - [facility] Comment on above: Performed By: #### [id number] #### [facility] [address] [place] [place] [address] Dr. Jose Elias Strong DIAGNOSIS: Comment [facility] Comment on above: Result Comment: NEGA TIVE FOR INTRAEPITHELIAL LESION OR MALIGNANCY. REACTIVE CELLULAR CHANGES AND/OR REPAIR ARE PRESENT. Performed By: #### [id number] #### [facility] [address] [place] [address] Dr. Jose Elias Strong Electronically signed by: Comment [facility] Comment on above: Result Comment: Melinda Patel MD, Pathologist Performed By: #### [id number] #### [facility] [address] [place] [address] Dr. Jose Elias Strong Methodology: Comment [facility] Comment on above: Result Comment: This liquid based ThinPrep(R) pap test was screened with the use of an image guided system. Performed By: #### [id number] #### [facility] [address] [place] [address] Dr. Jose Elias Strong Note: Comment Normal [facility] Comment on above: Result Comment: The Pap smear is a screening test designed to aid in the detection of premalignant and malignant conditions of the uterine cervix. It is not a diagnostic procedure and should not be used as the sole means of detecting cervical cancer. Both false-positive and false-negative reports do occur. . Performed By: #### [id number] #### [facility] [address] [place] [address] Dr. Jose Elias Strong Performed by: Comment Normal [facility] Comment on above: Result Comment: Lilian Romero Wardrobe Coordinator (ASCP) Performed By: #### [id number] #### [facility] [address] [place] [address] Dr. Jose Elias Strong Reflex Criteria: Comment Normal [facility] Comment on above: Result Comment: The HPV DNA reflex criteria were not met with this specimen result therefore, no HPV testing was performed. . Performed By: #### [id number] #### [facility] [address] [place] [address] Dr. Jose Elias Strong Specimen adequacy: Comment Normal [facility] Comment on above: Result Comment: Sati sfactory for evaluation. Endocervical and/or squamous metaplastic cells (endocervical component) are present. Performed By: #### [id number] #### [facility] [address] [place] [address] Dr. Jose Elias Strong CBC W MANUAL DIFFon 08-21-19 22 ANISOCYTOSIS 1+ Normal [facility] Comment on above: Performed By: #### T NS #### [facility] [address] [place] [address] Dr. Jose Elias Strong ATYPICAL LYMPH # Normal [facility] Comment on above: Performed By: #### T NS #### [facility] [address] [place] [address] Dr. Jose Elias Strong ATYPICAL LYMPH % Normal [facility] Comment on above: Performed By: #### T NS #### [facility] [address] [place] [address] Dr. Jose Elias Strong BAND # 0.2 103/ul Normal 0.0-0.[address] [facility] Comment on above: Performed By: #### T NS #### [facility] [address] [place] [address] Dr. Jose Elias Strong BAND % 1 % Normal 0-[address] [facility] Comment on above: Performed By: #### T NS #### [facility] [address] [place] [address] Dr. Jose Elias Strong BASOM # 0.00 103/ul Normal 0.00-0.10 [facility] Comment on above: Performed By: #### T NS #### [facility] [address] [place] [address] Dr. Jose Elias Strong BASOM % 0.0 % Critically low 0.2-2.0 [facility] Comment on above: Performed By: #### T NS #### [facility] [address] [place] [address] Dr. Jose Elias Strong BLAST # Normal [facility] Comment on above: Performed By: #### T NS #### [facility] [address] [place] [address] Dr. Jose Elias Strong BLAST % Normal [facility] Comment on above: Performed By: #### T NS #### [facility] [address] [place] [address] Dr. Jose Elias Strong CORRECTED WBC Normal 4.0-11.0 [facility] Comment on above: Performed By: #### T NS #### [facility] [address] [place] [address] Dr. Jose Elias Strong EOS # 0.00 103/ul Normal 0.00-0.[address] [facility] Comment on above: Performed By: #### T NS #### [facility] [address] [place] [address] Dr. Jose Elias Strong EOS% 0.0 % Critically low 0.9-7.0 [facility] Comment on above: Performed By: #### T NS #### [facility] [address] [address] [address] Jose Elias Strong HCT 27.5 % Critically low 36.0-48.0 [facility] Comment on above: Performed By: #### T NS #### [facility] [address] [address] [address] Jose Elias Strong HGB 8.1 g/dl Critically low 12.0-16.0 [facility] Comment on above: Performed By: #### T NS #### [facility] [address] [address] [address] Jose Elias Strong LYMPHM # 1.62 103/ul Normal 1.20-3.80 [facility] Comment on above: Performed By: #### T NS #### [facility] [address] [place] [address] Dr. Jose Elias Strong LYMPHM% 9.0 % Critically low 20.5-60.0 [facility] Comment on above: Performed By: #### T NS #### [facility] [address] [place] [address] Dr. Jose Elias Strong MCH 22.2 pg Critically low 26.7-34.0 [facility] Comment on above: Performed By: #### T NS #### [facility] [address] [place] [address] Dr. Jose Elias Strong MCHC 29.5 g/dl Critically low 29.9-35.2 [facility] Comment on above: Performed By: #### T NS #### [facility] [address] [place] [address] Dr. Jose Elias Strong MCV 75.3 fL Critically low 81.0-99.0 [facility] Comment on above: Performed By: #### T NS #### [facility] [address] [place] [address] Dr. Jose Elias Strong METAMYELOCYTE # Normal [facility] Comment on above: Performed By: #### T NS #### [facility] [address] [place] [address] Dr. Jose Elias Strong METAMYELOCYTE % Normal [facility] Comment on above: Performed By: #### T NS #### [facility] [address] [address] [address] Jose Elias Strong MONOM# 1.62 103/ul Critically high 0.30-0.80 [facility] Comment on above: Performed By: #### T NS #### [facility] [address] [address] [address] Jose Elias Strong MONOM% 9.0 % Normal 1.7-12.0 [facility] Comment on above: Performed By: #### T NS #### [facility] [address] [place] [address] Dr. Jose Elias Strong MPV 9.6 fL Normal 9.5-13.5 [facility] Comment on above: Performed By: #### T NS #### [facility] [address] [place] [address] Dr. Jose Elias Strong MYELOCYTE # Normal [facility] Comment on above: Performed By: #### T NS #### [facility] [address] [place] [address] Dr. Jose Elias Strong MYELOCYTE % Normal [facility] Comment on above: Performed By: #### T NS #### [facility] [address] [place] [address] Dr. Jose Elias Strong NRBC Normal [facility] Comment on above: Performed By: #### T NS #### [facility] [address] [place] [address] Dr. Jose Elias Strong PLT 308 103/ul Normal 150-[address] [facility] Comment on above: Performed By: #### T NS #### [facility] [address] [place] [address] Dr. Jose Elias Strong RBC 3.65 106/ul Critically low 4.20-5.40 [facility] Comment on above: Performed By: #### T NS #### [facility] [address] [place] [address] Dr. Jose Elias Strong RDW 15.7 % Critically high 11.0-15.0 [facility] Comment on above: Performed By: #### T NS #### [facility] [address] [address] [address] Jose Elias Strong SEG # 14.58 103/ul Critically high 1.40-6.50 [facility] Comment on above: Performed By: #### T NS #### [facility] [address] [place] [address] Dr. Jose Elias Strong SEG % 81.0 % Critically high 43.0-75.0 [facility] Comment on above: Performed By: #### T NS #### [facility] [address] [place] [address] Dr. Jose Elias Strong WBC 18.0 103/ul Critically high 4.0-11.0 [facility] Comment on above: Performed By: #### T NS #### [facility] [address] [place] [address] Dr. Jose Elias Strong DRUG SCREEN RAPID (URINE)on 08-20-2021 AMP Negative Normal NEGATIVE [facility] Comment on above: Performed By: #### T NS #### [facility] [address] [place] [address] Dr. Jose Elias Strong BAR Negative Normal NEGATIVE [facility] Comment on above: Performed By: #### T NS #### [facility] [address] [place] [address] Dr. Jose Elias Strong BUP Negative Normal NEGATIVE [facility] Comment on above: Performed By: #### T NS #### [facility] [address] [place] [address] Dr. Jose Elias Strong BZO Negative Normal NEGATIVE [facility] Comment on above: Performed By: #### T NS #### [facility] [address] [place] [address] Dr. Jose Elias Strong PAXTON Negative Normal NEGATIVE [facility] Comment on above: Performed By: #### T NS #### [facility] [address] [place] [address] Dr. Jose Elias Strong CUT-OFFS SEE BELOW Normal [facility] Comment on above: Result Comment: AMP [...] ng/mL Performed By: #### T NS #### [facility] [address] [place] [address] Dr. Jose Elias Strong DRUG CUT HEADER DRUG CLASS TEST SYSTEM CUT-OFF CONCENTRATIONS ARE FOLLOWS: Normal [facility] Comment on above: Performed By: #### T NS #### [facility] [address] [place] [address] Dr. Jose Elias Strong mAMP Negative Normal NEGATIVE [facility] Comment on above: Performed By: #### T NS #### [facility] [address] [place] [address] Dr. Jose Elias Strong MTD Negative Normal NEGATIVE [facility] Comment on above: Performed By: #### T NS #### [facility] [address] [place] [address] Dr. Jose Elias Strong OPI Negative Normal NEGATIVE [facility] Comment on above: Performed By: #### T NS #### [facility] [address] [place] [address] Dr. Jose Elias Strong OXY Negative Normal NEGATIVE [facility] Comment on above: Performed By: #### T NS #### [facility] [address] [place] [address] Dr. Jose Elias Strong PCP Negative Normal NEGATIVE [facility] Comment on above: Performed By: #### T NS #### [facility] [address] [place] [address] Dr. Jose Elias Strong PPX Negative Normal NEGATIVE [facility] Comment on above: Performed By: #### T NS #### [facility] [address] [place] [address] Dr. Jose Elias Strong TCA Negative Normal NEGATIVE [facility] Comment on above: Performed By: #### T NS #### [facility] [address] [place] [address] Dr. Jose Elias Strong THC Negative Normal NEGATIVE [facility] Comment on above: Performed By: #### T NS #### [facility] [address] [place] [address] Dr. Jose Elias Strong UA (CLEAN/CATCH) GOSPEL SINGER/MICRO I F IND.on 08-20-2021 Bilirubin Ql (U) Negative Normal NEGATIVE [facility] Comment on above: Performed By: #### U MICRO, UACSIND #### [facility] [address] [place] [address] Dr. Jose Elias Strong Clarity (U) SL CLOUDY Abnormal CLEAR [facility] Comment on above: Performed By: #### U MICRO, UACSIND #### [facility] [address] [place] [address] Dr. Jose Elias Strong Color (U) RED Abnormal YELLOW [facility] Comment on above: Performed By: #### U MICRO, UACSIND #### [facility] [address] [place] [address] Dr. Jose Elias Strong Glucose Ql (U) Negative Normal NEGATIVE [facility] Comment on above: Performed By: #### U MICRO, UACSIND #### [facility] [address] [place] [address] Dr. Jose Elias Strong Hemoglobin Ql (U) LARGE Abnormal NEGATIVE [facility] Comment on above: Performed By: #### U MICRO, UACSIND #### [facility] [address] [place] [address] Dr. Jose Elias Strong Ketones Ql (U) 15 mg/dl Abnormal NEGATIVE [facility] Comment on above: Performed By: #### U MICRO, UACSIND #### [facility] [address] [place] [address] Dr. Jose Elias Strong LEUKOCYTES TRACE Abnormal NEGATIVE [facility] Comment on above: Performed By: #### U MICRO, UACSIND #### [facility] [address] [place] [address] Dr. Jose Elias Strong Nitrite Ql (U) Negative Normal NEGATIVE [facility] Comment on above: Performed By: #### U MICRO, UACSIND #### [facility] [address] [address] [address] Jose Elias Strong pH (U) 7.0 [pH] Normal 5-9 [facility] Comment on above: Performed By: #### U MICRO, UACSIND #### [facility] [address] [address] [address] Jose Elias Strong SPEC GRAVITY 1.020 Normal 1.005-<=1.025 [facility] Comment on above: Performed By: #### U MICRO, UACSIND #### [facility] [address] [address] [address] Jose Elias Strong UA PROTEIN 30 mg/dl Abnormal NEGATIVE/ TRACE [facility] Comment on above: Performed By: #### U MICRO, UACSIND #### [facility] [address] [place] [address] Dr. Jose Elias Strong UR MICRO IND INDICATED Normal [facility] Comment on above: Performed By: #### U MICRO, UACSIND #### [facility] [address] [address] [address] Jose Elias Strong Urobilinogen Qn (U) 0.2 {Mago'U}/dL Normal 0.2 - 1. 0 [facility] Comment on above: Performed By: #### U MICRO, UACSIND #### [facility] [address] [address] [address] Jose Elias Strong URINE MICROSCOPIC ONLYon BACTERIA NONE SEEN Normal NONE SEEN [facility] Comment on above: Performed By: #### U MICRO, UACSIND #### [facility] [address] [address] [address] Jose Elias Strong Bacteria identified Cx Nom (U) NOT INDICATED Normal [facility] Comment on above: Performed By: #### U MICRO, UACSIND #### [facility] [address] [address] [address] Jose Elias Strong CAST NONE SEEN Normal NONE SEEN [facility] Comment on above: Performed By: #### U MICRO, UACSIND #### [facility] [address] [place] [address] Dr. Jose Elias Strong Crystals LM Nom (Urine sed) NONE SEEN Normal NONE SEEN [facility] Comment on above: Performed By: #### U MICRO, UACSIND #### [facility] [address] [place] [address] Dr. Jose Elias Strong Epithelial cells LM Ql (Urine sed) NONE SEEN Normal NONE SEEN /RARE [facility] Comment on above: Performed By: #### U MICRO, UACSIND #### [facility] [address] [place] [address] Dr. Jose Elias Strong MUCOUS NONE SEEN Normal NONE SEEN [facility] Comment on above: Performed By: #### U MICRO, UACSIND #### [facility] [address] [place] [address] Dr. Jose Elias Strong RBC (U) [#/Vol] /uL Abnormal 0-2 [facility] Comment on above: Performed By: #### U MICRO, UACSIND #### [facility] [address] [place] [address] Dr. Jose Elias Strong WBC 0-2 Abnormal NONE SEEN [facility] Comment on above: Performed By: #### U MICRO, UACSIND #### [facility] [address] [place] [address] Dr. Jose Elias Strong CBC AUTO DIFFon 08-19-2021 BASO # 0.0 103/ul Normal 0.0-0.1 [facility] Comment on above: Performed By: #### T NS #### [facility] [address] [place] [address] Dr. Jose Elias Strong Basophils/100 WBC (Bld) 0.2 % Normal 0.2-2.[address] [facility] Comment on above: Performed By: #### T NS #### [facility] [address] [place] [address] Dr. Jose Elias Strong EO # 0.1 103/ul Normal 0.0-0.7 [facility] Comment on above: Performed By: #### T NS #### [facility] [address] [place] [address] Dr. Jose Elias Strong Eosinophils/100 WBC (Bld) 0.7 % Critically low 0.9-7.0 [facility] Comment on above: Performed By: #### T NS #### [facility] [address] [place] [address] Dr. Jose Elias Strong Erythrocyte distribution width (RBC) [Ratio] 15.9 % Critically high 11.0-15.0 [facility] Comment on above: Performed By: #### T NS #### [facility] [address] [place] [address] Dr. Jose Elias Strong Hematocrit (Bld) [Volume fraction] 32.4 % Critically low 36.0-48.0 [facility] Comment on above: Performed By: #### T NS #### [facility] [address] [place] [address] Dr. Jose Elias Strong Hemoglobin (Bld) [Mass/Vol] 9.7 g/dL Critically low 12.0-16.0 [facility] Comment on above: Performed By: #### T NS #### [facility] [address] [place] [address] Dr. Jose Elias Strong IG # 0.19 10e3/ul Critically high 0.00-0.03 [facility] Comment on above: Performed By: #### T NS #### [facility] [address] [place] [address] Dr. Jose Elias Strong IG % 1.4 % Critically high 0.0-0.5 [facility] Comment on above: Performed By: #### T NS #### [facility] [address] [place] [address] Dr. Jose Elias Strong LYMPH # 1.9 103/ul Normal 1.2-3.[address] [facility] Comment on above: Performed By: #### T NS #### [facility] [address] [place] [address] Dr. Jose Elias Strong Lymphocytes/100 WBC (Bld) 14.4 % Critically low 20.5-60.0 [facility] Comment on above: Performed By: #### T NS #### [facility] [address] [place] [address] Dr. Jose Elias Strong MANUAL DIFF REQ NO Normal [facility] Comment on above: Performed By: #### T NS #### [facility] [address] [place] [address] Dr. Jose Elias Strong MCH (RBC) [Entitic mass] 22.3 pg Critically low 26.7-34.0 [facility] Comment on above: Performed By: #### T NS #### [facility] [address] [place] [address] Dr. Jose Elias Strong MCHC (RBC) [Mass/Vol] 29.9 g/dL Normal 29.9-35.2 [facility] Comment on above: Performed By: #### T NS #### [facility] [address] [place] [address] Dr. Jose Elias Strong MCV (RBC) [Entitic vol] 74.5 fL Critically low 81.0-99.0 [facility] Comment on above: Performed By: #### T NS #### [facility] [address] [place] [address] Dr. Jose Elias Strong MONO # 1.4 103/ul Critically high 0.3-0.8 [facility] Comment on above: Performed By: #### T NS #### [facility] [address] [place] [address] Dr. Jose Elias Strong Monocytes/100 WBC (Bld) 10.1 % Normal 1.7-12.0 [facility] Comment on above: Performed By: #### T NS #### [facility] [address] [place] [address] Dr. Jose Elias Strong NEUT # 9.8 103/ul Critically high 1.4-6.5 [facility] Comment on above: Performed By: #### T NS #### [facility] [address] [place] [address] Dr. Jose Elias Strong Neutrophils/100 WBC (Bld) 73.2 % Normal 43.0-75.0 [facility] Comment on above: Performed By: #### T NS #### [facility] [address] [place] [address] Dr. Jose Elias Strong Platelet mean volume (Bld) [Entitic vol] 10.0 fL Normal 9.5-13.[address] [facility] Comment on above: Performed By: #### T NS #### [facility] [address] [place] [address] Dr. Jose Elias Strong PLT 337 103/ul Normal 150-[address] [facility] [address] [facility] Comment on above: Performed By: #### T NS #### [facility] [address] [place] [address] Dr. Jose Elias Strong RBC 4.35 106/ul Normal 4.20-5.[address] [facility] Comment on above: Performed By: #### T NS #### [facility] [address] [place] [address] Dr. Jose Elias Strong WBC 13.4 103/ul Critically high 4.0-11.0 [facility] Comment on above: Performed By: #### T NS #### [facility] [address] [place] [address] Dr. Jose Elias Strong Covid-19 PCR ([facility])on 08-03 SARS-CoV-2 (COVID-19) RNA [place]+probe Ql (Unsp spec) Not detected Normal NOT DETECTED [facility] Comment on above: Result Comment: When [...] for this test is supported by the [place] Inspector of Health and Human Service's declaration that [...] used). Performed By: #### C VDTBH #### [facility] [address] [address] [address] Jose Elias Strong TYPE AND SCREENon 08-19-2021 TYPE AND SCREEN Negative Normal [facility] Comment on above: Performed By: #### T NS #### [facility] [address] [place] [address] Dr. Jose Elias Strong GROUP B STREP CULTUREon 07-05 S. agalactiae Ag Ql (Unsp spec) Culture Observations: NEGATIVE FOR GROUP B STREPTOCOCCUS. Normal [facility] Comment on above: Performed By: #### G BSCX #### [facility] [address] [place] [address] Dr. Jose Elias Strong UA (CLEAN/CATCH) GOSPEL SINGER/MICRO I F IND.on 06-28-2021 Bilirubin Ql (U) Negative Normal NEGATIVE [facility] Comment on above: Performed By: #### U ACSIND, UMICRO #### [facility] [address] [place] [address] Dr. Jose Elias Strong Clarity (U) CLEAR Normal CLEAR [facility] Comment on above: Performed By: #### U ACSIND, UMICRO #### [facility] [address] [address] [address] Jose Elias Strong Color (U) LT. YELLOW Normal YELLOW [facility] Comment on above: Performed By: #### U ACSIND, UMICRO #### [facility] [address] [place] [address] Dr. Jose Elisa Strong Glucose Ql (U) Negative Normal NEGATIVE [facility] Comment on above: Performed By: #### U ACSIND, UMICRO #### [facility] [address] [place] [address] Dr. Jose Elias Strong Hemoglobin Ql (U) Negative Normal NEGATIVE [facility] Comment on above: Performed By: #### U ACSIND, UMICRO #### [facility] [address] [place] [address] Dr. Jose Elias Strong Ketones Ql (U) Negative Normal NEGATIVE [facility] Comment on above: Performed By: #### U ACSIND, UMICRO #### [facility] [address] [place] [address] Dr. Jose Elias Strong LEUKOCYTES TRACE Abnormal NEGATIVE [facility] Comment on above: Performed By: #### U ACSMICHAEL UMICRO #### [facility] [address] [address] [address] Jose Elias Strong Nitrite Ql (U) Negative Normal NEGATIVE [facility] Comment on above: Performed By: #### U ACSMICHAEL UMICRO #### [facility] [address] [address] [address] Jose Elias Strong pH (U) 6.5 [pH] Normal 5-9 [facility] Comment on above: Performed By: #### U RODOLFO MANCILLAICRO #### [facility] [address] [place] [address] Dr. Jose Elias Strong SPEC GRAVITY 1.015 Normal 1.005-<=1.025 [facility] Comment on above: Performed By: #### U LAURENT UMICRO #### [facility] [address] [place] [address] Dr. Jose Elias Strong UA PROTEIN Negative Normal NEGATIVE/ TRACE [facility] Comment on above: Performed By: #### U RODOLFO MANCILLAICRO #### [facility] [address] [place] [address] Dr. Jose Elias Strong UR MICRO IND INDICATED Normal [facility] Comment on above: Performed By: #### U LAURENT UMICRO #### [facility] [address] [place] [address] Dr. Jose Elias Strong Urobilinogen Qn (U) 0.2 {Mago'U}/dL Normal 0.2 - 1. 0 [facility] Comment on above: Performed By: #### U LAURENT UMICRO #### [facility] [address] [place] [address] Dr. Jose Elias Strong URINE MICROSCOPIC ONLYon AMORPHOUS CRYSTALS FEW Normal [facility] Comment on above: Performed By: #### U ACSMICHAEL UMICRO #### [facility] [address] [place] [address] Dr. Jose Elias Strong BACTERIA TRACE Abnormal NONE SEEN [facility] Comment on above: Performed By: #### U ACSIND, UMICRO #### [facility] [address] [place] [address] Dr. Jose Elias Strong Bacteria identified Cx Nom (U) NOT INDICATED Normal [facility] Comment on above: Performed By: #### U ACSIND, UMICRO #### [facility] [address] [place] [address] Dr. Jose Elias Strong CAST NONE SEEN Normal NONE SEEN [facility] Comment on above: Performed By: #### U ACSIND, UMICRO #### [facility] [address] [place] [address] Dr. Jose Elias Strong Crystals LM Nom (Urine sed) SEEN Abnormal NONE SEEN The [facility] Comment on above: Performed By: #### U ACSIND, UMICRO #### [facility] [address] [place] [address] Dr. Jose Elias Strong Epithelial cells LM Ql (Urine sed) RARE Normal NONE SEEN /RARE [facility] Comment on above: Performed By: #### U ACSIND, UMICRO #### [facility] [address] [place] [address] Dr. Jose Elias Strong MUCOUS TRACE Abnormal NONE SEEN The [facility] Comment on above: Performed By: #### U ACSIND, UMICRO #### [facility] [address] [place] [address] Dr. Jose Elias Strong RBC 0-2 Normal 0-[address] [facility] Comment on above: Performed By: #### U ACSIND, UMICRO #### [facility] [address] [place] [address] Dr. Jose Elias Strong WBC 2-5 Abnormal NONE SEEN The [facility] Comment on above: Performed By: #### U ACSIND, UMICRO #### [facility] [address] [place] [address] Dr. Jose Elias Strong CBC AUTO DIFFon 06-19-2021 BASO # 0.0 103/ul Normal 0.0-0.[address] [facility] Comment on above: Performed By: #### C BC #### [facility] [address] [address] [address] Jose Elias Strong Basophils/100 WBC (Bld) 0.3 % Normal 0.2-2.0 [facility] Comment on above: Performed By: #### C BC #### [facility] [address] [address] [address] Jose Elias Strong EO # 0.2 103/ul Normal 0.0-0.[address] [facility] Comment on above: Performed By: #### C BC #### [facility] [address] [address] [address] Jose Elias Strong Eosinophils/100 WBC (Bld) 2.0 % Normal 0.9-7.0 [facility] Comment on above: Performed By: #### C BC #### [facility] [address] [place] [address] Dr. Jose Elias Strong Erythrocyte distribution width (RBC) [Ratio] 13.6 % Normal 11.0-15.0 [facility] Comment on above: Performed By: #### C BC #### [facility] [address] [address] [address] Jose Elias Strong Hematocrit (Bld) [Volume fraction] 29.4 % Critically low 36.0-48.0 [facility] Comment on above: Performed By: #### C BC #### [facility] [address] [place] [address] Dr. Jose Elias Strong Hemoglobin (Bld) [Mass/Vol] 9.5 g/dL Critically low 12.0-16.0 [facility] Comment on above: Performed By: #### C BC #### [facility] [address] [address] [address] Jose Elias Strong IG # 0.14 10e3/ul Critically high 0.00-0.03 [facility] Comment on above: Performed By: #### C BC #### [facility] [address] [address] [address] Jose Elias Strong IG % 1.4 % Critically high 0.0-0.5 [facility] Comment on above: Performed By: #### C BC #### [facility] [address] [address] [address] Jose Elias Strong LYMPH # 1.6 103/ul Normal 1.2-3.[address] [facility] Comment on above: Performed By: #### C BC #### [facility] [address] [address] [address] Jose Elias Strong Lymphocytes/100 WBC (Bld) 15.5 % Critically low 20.5-60.[address] [facility] Comment on above: Performed By: #### C BC #### [facility] [address] [place] [address] Dr. Jose Elias Strong MANUAL DIFF REQ NO Normal [facility] Comment on above: Performed By: #### C BC #### [facility] [address] [place] [address] Dr. Jose Elias Strong MCH (RBC) [Entitic mass] 26.8 pg Normal 26.7-34.0 [facility] Comment on above: Performed By: #### C BC #### [facility] [address] [place] [address] Dr. Jose Elias Strong MCHC (RBC) [Mass/Vol] 32.3 g/dL Normal 29.9-35.[address] [facility] Comment on above: Performed By: #### C BC #### [facility] [address] [place] [address] Dr. Jose Elias Strong MCV (RBC) [Entitic vol] 82.8 fL Normal 81.0-99.[address] [facility] Comment on above: Performed By: #### C BC #### [facility] [address] [place] [address] Dr. Jose Elias Strong MONO # 1.2 103/ul Critically high 0.3-0.8 [facility] Comment on above: Performed By: #### C BC #### [facility] [address] [place] [address] Dr. Jose Elias Strong Monocytes/100 WBC (Bld) 12.2 % Critically high 1.7-12.[address] [facility] Comment on above: Performed By: #### C BC #### [facility] [address] [address] [address] Jose Elias Strong NEUT # 7.0 103/ul Critically high 1.4-6.5 [facility] Comment on above: Performed By: #### C BC #### [facility] [address] [address] [address] Jose Elias Strong Neutrophils/100 WBC (Bld) 68.6 % Normal 43.0-75.[address] [facility] Comment on above: Performed By: #### C BC #### [facility] [address] [address] [address] Jose Elias Strong Platelet mean volume (Bld) [Entitic vol] 9.1 fL Critically low 9.5-13.[address] [facility] Comment on above: Performed By: #### C BC #### [facility] [address] [address] [address] Jose Elias Strong PLT 309 103/ul Normal 150-[address] [facility] Comment on above: Performed By: #### C BC #### [facility] [address] [address] [address] Jose Elias Strong RBC 3.55 106/ul Critically low 4.20-5.40 [facility] Comment on above: Performed By: #### C BC #### [facility] [address] [place] [address] Dr. Jose Elias Strong WBC 10.1 103/ul Normal 4.0-11.0 [facility] Comment on above: Performed By: #### C BC #### [facility] [address] [address] [address] Jose Elias Strong GLYCOHEMOGLOBIN A1Con 2021 ADA RECOMMENDATION ADA THERAPEUTIC TARGET 6.0 - 7.0 ACTION SUGGESTED > 7.0 Normal [facility] Comment on above: Performed By: #### T NS #### [facility] [address] [place] [address] Dr. Jose Elias Strong Glucose [Mass/Vol] 97 mg/dL Normal [facility] Comment on above: Performed By: #### T NS #### [facility] [address] [place] [address] Dr. Jose Elias Strong HbA1c (Bld) [Mass fraction] 5.0 % Normal <=6.[address] [facility] Comment on above: Performed By: #### T NS #### [facility] [id number] Jose Elias Strong Consenton 10-24-2020 Consent [id number] .00CD:127 [facility] In office Testingon 10-25-19 21 In office Testing [id number] 1.00CD:127 [facility] Registrationon 10-24-2020 Registration [id number] .00CD:127 [facility] Registration [id number] .00CD:127 [facility] Vital Signs Date Time Vital Sign Value Performing Clinician Facility 11-27-2023 14:39-0400 Body height 165.[address] [facility] Work Phone: [facility] 11-27-2023 14:39-0400 Body mass index (BMI) [Ratio] 24 kg/m2 [facility] Work Phone: [facility] 11-27-2023 14:39-0400 Body temperature 98 [degF] [facility] Arpita Jeff Work Phone: [facility] 11-27-2023 14:39-0400 Body weight 65.[address] [facility] Arpita Aguilar Work Phone: [facility] 11-27-2023 14:39-0400 Diastolic blood pressure 68 mm[Hg] [facility] Arpita Aguilar Work Phone: [facility] 11-27-2023 14:39-0400 Heart rate 87 /min [facility] Arpita Aguilar Work Phone: [facility] 11-27-2023 14:39-0400 Respiratory rate 18 /min [employer] Arpita Aguilar Work Phone: [facility] 11-27-2023 14:39-0400 SaO2% (BldA) [Mass fraction] 97 % [employer] Arpita Aguilar Work Phone: [facility] 11-27-2023 14:39-0400 Systolic blood pressure 98 mm[Hg] [employer] Arpita Aguilar Work Phone: [facility] 06-12-2023 11:02-0500 Body mass index (BMI) [Ratio] 30.26 kg/m2 Mary Venkat DO Work Phone: [facility] 06-12-2023 11:02-0500 Body weight 77.47 kg Mary Venkat DO Work Phone: [facility] 06-12-2023 11:02-0500 Diastolic blood pressure 70 mm[Hg] Mary Venkat DO Work Phone: [facility] 06-12-2023 11:02-0500 Systolic blood pressure 118 mm[Hg] Mary Venkat DO Work Phone: [facility] Encounters Encounter Date Encounter Type Care Provider Facility Start: 11-27-2023 End: 11-27-2023 ambulatory [employer]-C Arpita Aguilar Work Phone: [facility] Work Phone: Start: 11-27-2023 End: 11-27-2023 Patient encounter procedure [employer] ACC[employer]-C Arpita Aguilar Work Phone: [facility] Work Phone: Start: 09-10-2023 End: [...] Not Available Start: 12-10-2022 ambulatory ALEXANDER [facility] Start: 11-19-2022 End: 11-19-2022 ambulatory YOMAIRA [facility] Start: 10-28-2022 End: 10-29-2022 ambulatory ALEXANDER [facility] Start: 08-29-2022 ambulatory YOMAIRA [facility] Start: 08-19-2022 End: 08-19-2022 Emergency department patient visit YOMAIRA GUILLEN [facility] Start: 08-08-2022 End: 08-08-2022 Emergency department patient visit JERRY WALLS [facility] Start: 06-04-2022 End: 06-04-[address] [...] PM EST Routine [facility] [address] [place] [id number] Erika Chan PA [address] [place] [address] [facility] Payers Date Payer Category Payer Medicaid [id number] 2022 Medicaid [employer] [place] [id number] 2022-Present [address] [place] [address] [id number] 1995 Unknown [id number] 1995 Unknown [id number] 2.840.1.614621.3.579.2.593 1995 Unknown [id number] 2.840.1.600224.3.579.2.593 1995 Unknown [id number] 2.840.1.049937.3.579.2.593 1995 Unknown [id number] 2.840.1.550719.3.579.2.593 1995 Unknown [id number] 2.840.1.527325.3.579.2.593 1995 Unknown [id number] 2.16.840.1.969428.3.579.2.593 1995 Unknown [id number] 2.16.840.1.215772.3.579.2.593 1995 Unknown [id number] 2.16.840.1.330052.3.579.2.1212 1995 Unknown [id number] 2.16.840.1.772005.3.579.2.1212 1995 Unknown [id number] 2.16.840.1.313695.3.579.2.1212 1995 Unknown [id number] 2.16.840.1.822805.3.579.2.1212 1995 Unknown [id number] 2.16.840.1.042818.3.579.2.1212 1995 Unknown [id number] 2.16.840.1.178342.3.579.2.1212 1995 Unknown [id number] 2.16.840.1.659754.3.579.2.1258 1995 Unknown [id number] 2.16.840.1.816742.3.579.2.1258 1995 Unknown [id number] 2.16.840.1.485917.3.579.2.1258 1995 Unknown [id number] 2.16.840.1.380130.3.579.2.1258 1995 Unknown [id number] 2.16.840.1.197483.3.579.2.1258 1995 Unknown [id number] 2.16.840.1.536705.3.579.2.1258 1995 Unknown [id number] 2.16.840.1.379525.3.579.2.1258 1995 Unknown [id number] 2.16.840.1.892321.3.579.2.1259 1959 Unknown [id number] Social History Date Type Detail Facility Start: 10-21-2022 End: 11-27-2023 Tobacco smoking status NHIS Never smoked tobacco [facility] Start: 10-21-2022 Tobacco use and exposure Smoke less tobacco non-user [facility] Start: 06-12-2023 Alcohol intake Lifetime non-d deborah (finding) [facility] Start: 10-21-2022 History of Social function [facility] Start: 10-21-2022 Tobacco use panel [facility] Start: 11-11-2022 [facility] Start: 1995 Sex Assigned At Female [facility] Start: 10-20-2022 Gender identity Identifies as female gender (finding) [facility] Start: 10-20-2022 Sexual orientation Bisexual (finding ) [facility] Start: 11-27-2023 With Spouse/Significant Other [facility] Start: 11-27-2023 0 [facility] Start: 11-27-2023 Denies Use [facility] History of Present illness Narrative 06-12-2023 Mary [...] Ambulatory Problems Diagnosis Date Noted Acute asthma ([facility]) 12/03/2022 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 12/03/2022 Neck swelling 08/19/2022 Schizoaffective disorder ([facility]) 12/03/2022 Resolved Ambulatory Problems Diagnosis Date [...] nursing note reviewed. Exam conducted with a moulder operator present. Vitals: Estimated body mass index [...] Facility Evaluation note No assessment information availa [facility] [employer] Work Phone: Summary Purpose Family History No [...] section and content) DATE CREATED AUTHOR 10/25/2020 [place] Abdullahi [facility] DATE CREATED AUTHOR AUTHOR'S ORGANIZ ATION 06/11/2022 [facility] DATE CREATED AUTHOR AUTHOR'S ORGANIZ ATION 12/16/2022 [facility] DATE CREATED AUTHOR AUTHOR'S ORGANIZ ATION 09/12/2023 [facility] EPIC Reason for Visit [...] BE BASED ON THE PRIMARY CLINICAL RECORDS. [facility]. provides no warranty or guarantee of the accuracy or completeness of information in this document.
[2024-01-26 12:36] LABS: HCG Quantitative <1 mIU/mL
[2024-01-26 12:51] LABS: Amphetamine Screen Urine NEGATIVE (NEGATIVE); Barbiturates Screen Urine NEGATIVE (NEGATIVE); Benzodiazepines Screen Urine NEGATIVE (NEGATIVE); Buprenorphine Screen Urine NEGATIVE (NEGATIVE); Cannabinoid Screen Urine NEGATIVE (NEGATIVE); Cocaine Screen Urine NEGATIVE (NEGATIVE); Methadone Screen Urine NEGATIVE (NEGATIVE); Methamphetamines Screen Urine NEGATIVE (NEGATIVE); Opiate Screen Urine NEGATIVE (NEGATIVE); Oxycodone Screen Urine NEGATIVE (NEGATIVE); Phencyclidine Screen Urine NEGATIVE (NEGATIVE); Tricyclic Antidepressant Urine NEGATIVE (NEGATIVE)
== END 2024-01-26 11:09 | disposition home or self-care (01) ==
LOC: LAB 11:10
PROVIDERS: PCP Family Medicine; Visit Provider Family Medicine
DX: Z32.01 Encounter for pregnancy test, result positive (principal)
CPT/HCPCS: 36415; 80307; 84702

== ENCOUNTER 2024-05-14 10:26 | Outpatient (OUT) | payer OTHER, SELFPAY ==
--- OUTSIDE RECORDS SUMMARY | 2024-05-14 10:37 | XMS_ITS | CCD ---
Author Organization [facility] Care Team Providers Care Clinical Support Manager Name Role Phone VENKAT, DR HERNANDEZ Admitting [...] Translations: [LATEX] Drug allergy (disorder) 6 [facility] Repository (2 sources) Leucine; Translations: [NICKEL] Drug Allergy 7 [facility] Repository (2 sources) Penicillins; Translations: [PENICILLINS] Drug allergy (disorder) 7 [facility] Repository (1 source) Shellfish Drug allergy (disorder) 7 [facility] Repository (2 sources) Iodine; Translations: [IODINE] Drug Allergy 3 [facility] Repository (1 source) SHELLFISH CONTAINING PRODUCTS; Translations: [SHELLFISH CONTAINING PRODUCTS] Propensity to adverse reactions to drug (disorder) 3 [facility] Repository (1 source) VENOM-HONEY BEE; Translations: [VENOM-HONEY BEE] Propensity to adverse reactions to drug (disorder) 3 [facility] Repository (1 source) Amoxicillin Drug Allergy 3 Unknown [facility] (1 source) Bee pollen Allergy to substance 3 Unknown [facility] Healthcare (1 source) Honey bee venom Propensity to adverse reactions 3 [facility] (1 source) Latex Allergy to substance 3 Unknown [facility] Healthcare (1 source) nickel sulfate Drug Allergy 3 [facility] (1 source) Penicillin G Drug Allergy 3 Unknown [facility] Healthcare (1 source) Shellfish-Derive d Products Drug Allergy 3 Unknown [facility] Healthcare (1 source) Penicillins Propensity to adverse reactions 4 [facility] (1 source) Shellfish Allergy to substance [address] [facility] Medications Current Medications Medication Drug Class(es) Dates Sig (Normalized) Sig (Original) [id number] 200 actuat albuterol 0.09 mg/actuat metered dose [...] UA Negative Negative - 4(70) +++ mg/dL [facility] Blood, UA Negative Negative - 50 Yovany/mcL [facility] Clarity, UA Clear [facility] Color, UA Yellow [facility] Glucose, UA Negative Negative - 2000(110) ++++ mg/dL [facility] Interpretation and review of laboratory results Abnormal [facility] Ketones, UA Negative Negative - 160(16) ++++ mg/dL [facility] Leukocytes, UA Positive Negative - 500+++ Jamey/mcL [facility] Nitrite, UA Negative Negative - Positive [facility] pH, UA 5.5 5 - 9 [facility] Protein, UA Positive Negative - 2000(20) ++++ mg/dL [facility] Spec Grav, UA 1.020 1 - 1.03 [facility] Urobilinogen, UA 1.0 0.2 - 12 mg/dL [facility] HCG, Urineon 11-19-2022 Beta HCG ( test) Ql (U) Negative Normal [facility] Comment on above: Order Comment: The c alculated GFR uses the (IDMS)-traceable creatinine MDRD equation and is reported in mL/min/1.73 square meters. This formula is not recommended for use with individuals with unstable creatinine concentrations, extremes in muscle mass and/or body size, or alternative diets and may not be suitable for all patient populations. Testing performed at [facility] [employer], [address] [place] [address] 47271 Result Comment: Note : This test provides only a presumptive diagnosis for . If the HCG result is inconsistent with clinical evidence, results should be confirmed with an alternative method, such as a quantitative HCG. Basic Metabolic Profileon ANIO 11 mmol/L Low 12-20 [facility] Comment on above: Order Comment: Testi ng performed at [facility], [address] [place] [address] 81331 Calcium [Mass/Vol] 9.5 mg/dL Normal 8.4-10.2 [facility] Comment on above: Order Comment: Testi ng performed at [facility], [address] [place] [address] 26900 Chloride [Moles/Vol] 107 mmol/L Normal 98-107 [facility] Comment on above: Order Comment: Testi ng performed at [facility], [address] [place] [address] 20324 CO2 [Moles/Vol] 23.0 mmol/L Normal 22.0-30.0 [facility] Comment on above: Order Comment: Testi ng performed at [facility], [address] [place] [address] 58842 Creatinine [Mass/Vol] 0.7 mg/dL Normal 0.6-1.2 [facility] Comment on above: Order Comment: Testi ng performed at [facility], [address] [place] [address] 98850 Glucose [Mass/Vol] 118 mg/dL High 74-106 [facility] Comment on above: Order Comment: Testi ng performed at [facility], [address] [place] [address] 47420 Potassium [Moles/Vol] 4.1 mmol/L Normal 3.3-4.9 [facility] Comment on above: Order Comment: Testi ng performed at [facility], [address] [place] [address] 70933 Sodium [Moles/Vol] 137 mmol/L Normal 137-145 [facility] Comment on above: Order Comment: Testi ng performed at [facility], [address] [place] [address] 97007 Urea nitrogen [Mass/Vol] 14 mg/dL Normal 8-19 [facility] Comment on above: Order Comment: Testi ng performed at [facility], [address] [place] [address] 64466 CBC w/Auto Diffon 08-19-2022 Basophils (Bld) [#/Vol] 0.04 10*3/uL Normal 0.00-0.10 [facility] Comment on above: Order Comment: Immature [...] no longer indicated. Testing performed at [facility], [address] [place] [address] 77025 Eosinophils (Bld) [#/Vol] 0.05 10*3/uL Normal 0.00-0.40 [facility] Comment on above: Order Comment: Immature [...] no longer indicated. Testing performed at [facility], [address] [place] [address] 46992 Erythrocyte distribution width (RBC) [Ratio] 13.3 % Normal 11.7-14.4 [facility] Comment on above: Order Comment: Immature [...] no longer indicated. Testing performed at [facility], [address] [place] [address] 35575 Hematocrit (Bld) [Volume fraction] 36.1 % Normal 34.1-44.9 [facility] Comment on above: Order Comment: Immature [...] is no longer indicated. Testing performed at [facility], [address] [place] [address] 78010 Hemoglobin (Bld) [Mass/Vol] 12.0 g/dL Normal 11.2-15.7 [facility] Comment on above: Order Comment: Immature [...] is no longer indicated. Testing performed at [facility], [address] [place], [place] [phone] IG % (B) 0.6 % High 0.0-0.4 [facility] Comment on above: Order Comment: Immature [...] no longer indicated. Testing performed at [facility], [address] [place] [address] 26198 IG# (B) 0.14 10*3/uL High 0.00-0.00 [facility] Comment on above: Order Comment: Immature [...] is no longer indicated. Testing performed at [facility], [address] [place] [address] 30461 Lymphocytes (Bld) [#/Vol] 0.81 10*3/uL Low 1.20-3.70 [facility] Comment on above: Order Comment: Immature [...] no longer indicated. Testing performed at [facility], [address] [place] [address] 38264 MCH (RBC) [Entitic mass] 28.5 pg Normal 25.6-32.2 [facility] Comment on above: Order Comment: Immature [...] no longer indicated. Testing performed at [facility], [address] [place] [address] 24043 MCHC (RBC) [Mass/Vol] 33.2 g/dL Normal 32.2-35.5 [facility] Comment on above: Order Comment: Immature [...] no longer indicated. Testing performed at [facility], [address] [place] [address] 49832 MCV (RBC) [Entitic vol] 85.7 fL Normal 79.4-94.8 [facility] Comment on above: Order Comment: Immature [...] no longer indicated. Testing performed at [facility], [address] [place] [address] 41502 Monocytes (Bld) [#/Vol] 1.81 10*3/uL High 0.20-0.90 [facility] Comment on above: Order Comment: Immature [...] no longer indicated. Testing performed at [facility], [address] [place] [address] 12129 Neutrophils (Bld) [#/Vol] 20.04 10*3/uL High 1.60-6.10 [facility] Comment on above: Order Comment: Immature [...] no longer indicated. Testing performed at [facility], [address] [place] [address] 00884 NRBC % (B) 0.0 /100{WBC} Normal 0.0-0.2 [facility] Comment on above: Order Comment: Immature [...] no longer indicated. Testing performed at [facility], [address] [place] [address] 01470 NRBC# (B) 0.00 10*3/uL Normal 0.00-0.00 [facility] Comment on above: Order Comment: Immature [...] no longer indicated. Testing performed at [facility], [address] [place] [address] 62786 Platelet mean volume (Bld) [Entitic vol] 9.9 fL Normal 9.4-12.3 [facility] Comment on above: Order Comment: Immature [...] no longer indicated. Testing performed at [facility], [address] [place] [address] 66003 Platelets (Bld) [#/Vol] 267 10*3/uL Normal 182-369 [facility] Comment on above: Order Comment: Immature [...] no longer indicated. Testing performed at [facility], [address] [place] [address] 92559 RBC (Bld) [#/Vol] 4.21 10*6/uL Normal 3.93-5.22 [facility] Comment on above: Order Comment: Immature [...] no longer indicated. Testing performed at [facility], [address] [place] [address] 45858 RDW-SD (B) 41.1 fL Normal 36.4-46.3 [facility] Comment on above: Order Comment: Immature [...] no longer indicated. Testing performed at [facility], [address] [place] [address] 93023 WBC (Bld) [#/Vol] 22.9 10*3/uL High 4.0-10.0 [facility] Comment on above: Order Comment: Immature [...] no longer indicated. Testing performed at [facility], [address] [place] [address] NECK WITHOUT CONTRASTon 0 08-19-2022 CT [...] Salinas MD On: 08/19/2022 1:25 PM Normal [facility] EST Glomerular Filtration Ra jude 08-19-2022 EAGFR (B) >60 Normal >60 [facility] Comment on above: Order Comment: The c alculated GFR uses the (IDMS)-traceable creatinine MDRD equation and is reported in mL/min/1.73 square meters. This formula is not recommended for use with individuals with unstable creatinine concentrations, extremes in muscle mass and/or body size, or alternative diets and may not be suitable for all patient populations. [facility] performed [facility], [address] [place] [address] Result Comment: The reported eGFR is based on a non- patient, for Americans multiply the result by 1.212. HCG, Serumon 08-19-2022 HCGS Negative Normal [facility] Comment on above: Order Comment: Testi ng performed at [facility], [address] [place] [address] 66445 Result Comment: Note : This test provides only a presumptive diagnosis for . If the HCG result is inconsistent with clinical evidence, results should be confirmed with an alternative method, such as a quantitative HCG. Man Diffon 08-19-2022 Eos, Diff 2 % Normal 0-6 [facility] Comment on above: Order Comment: Testi ng performed at [facility], [address] [place] [address] 22289 Lymphocytes/100 WBC (Bld) 3 % Low 20-53 [facility] Comment on above: Order Comment: Testi ng performed at [facility], [address] [place] [address] 65215 [place], Diff 6 % Normal 5-12 [facility] Comment on above: Order Comment: Testi ng performed at [facility] [employer], [address] [place] [address] 11229 Segs. Diff 89 % High 34-70 [facility] Comment on above: Order Comment: Testi ng performed at [facility], [address] [facility] [place] [address] Slide Scan Normal Normal Normal [facility] Comment on above: Order Comment: Testi ng performed at [facility], [address] [place] [place] [address] Basic Metabolic Profileon ANIO 12 mmol/L Normal 12-20 [facility] Comment on above: Order Comment: Testi ng performed at [facility], [address] [facility] [facility] [place] [address] Calcium [Mass/Vol] 9.1 mg/dL Normal 8.4-10.2 [facility] Comment on above: Order Comment: Testi ng performed at [facility], [address] [facility] [facility] [place] [address] Chloride [Moles/Vol] 106 mmol/L Normal 98-107 [facility] Comment on above: Order Comment: Testi ng performed at [facility], [facility] [place] [address] CO2 [Moles/Vol] 27.0 mmol/L Normal 22.0-30.0 [facility] Comment on above: Order Comment: Testi ng performed at [facility], [address] [facility] [facility] [place] [address] Creatinine [Mass/Vol] 0.6 mg/dL Normal 0.6-1.2 [facility] Comment on above: Order Comment: Testi ng performed at [facility], [address] [facility] [facility] [place] [address] Glucose [Mass/Vol] 95 mg/dL Normal 74-106 [facility] Comment on above: Order Comment: Testi ng performed at [facility], [address] [facility] [facility] [place] [address] Potassium [Moles/Vol] 4.1 mmol/L Normal 3.3-4.9 [facility] Comment on above: Order Comment: Testi ng performed at [facility], [address] [facility] [facility] [place] [address] Sodium [Moles/Vol] 141 mmol/L Normal 137-145 [facility] Comment on above: Order Comment: Testi ng performed at [facility], [address] [place] [address] 07048 Urea nitrogen [Mass/Vol] 9 mg/dL Normal 8-19 [facility] Comment on above: Order Comment: Testi ng performed at [facility], [address] [place] [address] 20626 CBC w/Auto Diffon 08-08-2022 Basophils (Bld) [#/Vol] 0.04 10*3/uL Normal 0.00-0.10 [facility] Comment on above: Order Comment: Immature [...] no longer indicated. Testing performed at [facility], [address] [place] [address] 70161 Basophils/100 WBC (Bld) 0.4 % Normal 0.1-1.2 [facility] Comment on above: Order Comment: Immature [...] no longer indicated. Testing performed at [facility], [address] [place] [address] 94687 Eosinophils (Bld) [#/Vol] 0.21 10*3/uL Normal 0.00-0.40 [facility] Comment on above: Order Comment: Immature [...] is no longer indicated. [facility], [address] [place] [address] 78188 Eosinophils/100 WBC (Bld) 2.1 % Normal 0.7-5.8 [facility] Comment on above: Order Comment: Immature [...] no longer indicated. Testing performed at [facility], [address] [place] [address] 18558 Erythrocyte distribution width (RBC) [Ratio] 12.9 % Normal 11.7-14.4 [facility] Comment on above: Order Comment: Immature [...] no longer indicated. Testing performed at [facility], [address] [place] [address] 52882 Hematocrit (Bld) [Volume fraction] 35.4 % Normal 34.1-44.9 [facility] Comment on above: Order Comment: Immature [...] no longer indicated. Testing performed at [facility], [address] [place] [address] 11304 Hemoglobin (Bld) [Mass/Vol] 11.2 g/dL Normal 11.2-15.7 [facility] Comment on above: Order Comment: Immature [...] no longer indicated. Testing performed at [facility], [address] [place] [address] 76149 IG % (B) 0.4 % Normal 0.0-0.4 [facility] Comment on above: Order Comment: Immature [...] no longer indicated. Testing performed at [facility], [address] [place] [address] 59912 IG# (B) 0.04 10*3/uL High 0.00-0.00 [facility] Comment on above: Order Comment: Immature [...] no longer indicated. Testing performed at [facility], [address] [place] [address] 72442 Lymphocytes (Bld) [#/Vol] 1.60 10*3/uL Normal 1.20-3.70 [facility] Comment on above: Order Comment: Immature [...] is no longer indicated. Testing performed at [facility], [address] [place] [address] 42225 Lymphocytes/100 WBC (Bld) 16.3 % Low 19.3-51.7 [facility] Comment on above: Order Comment: Immature [...] no longer indicated. Testing performed at [facility], [address] [place] [address] 44871 MCH (RBC) [Entitic mass] 27.7 pg Normal 25.6-32.2 [facility] Comment on above: Order Comment: Immature [...] no longer indicated. Testing performed at [facility], [address] [place] [address] 20718 MCHC (RBC) [Mass/Vol] 31.6 g/dL Low 32.2-35.5 [facility] Comment on above: Order Comment: Immature [...] no longer indicated. Testing performed at [facility], [address] [place] [address] 74721 MCV (RBC) [Entitic vol] 87.4 fL Normal 79.4-94.8 [facility] Comment on above: Order Comment: Immature [...] no longer indicated. Testing performed at [facility], [address] [place] [address] 54791 Monocytes (Bld) [#/Vol] 0.88 10*3/uL Normal 0.20-0.90 [facility] Comment on above: Order Comment: Immature [...] no longer indicated. Testing performed at [facility], [address] [place] [address] 96155 Monocytes/100 WBC (Bld) 8.9 % Normal 4.7-12.5 [facility] Comment on above: Order Comment: Immature [...] no longer indicated. Testing performed at [facility], [address] [place] [address] 41042 Neutrophils (Bld) [#/Vol] 7.07 10*3/uL High 1.60-6.10 [facility] Comment on above: Order Comment: Immature [...] no longer indicated. Testing performed at [facility], [address] [place] [address] 29838 Neutrophils/100 WBC (Bld) 71.9 % High 34.0-71.1 [facility] Comment on above: Order Comment: Immature [...] is no longer indicated. Testing performed at [facility], [address] [place] [address] 50052 NRBC % (B) 0.0 /100{WBC} Normal 0.0-0.2 [facility] Comment on above: Order Comment: Immature [...] no longer indicated. Testing performed at [facility], [address] [place] [address] 54531 NRBC# (B) 0.00 10*3/uL Normal 0.00-0.00 [facility] Comment on above: Order Comment: Immature [...] no longer indicated. Testing performed at [facility], [address] [place] [address] 17275 Platelet mean volume (Bld) [Entitic vol] 9.2 fL Low 9.4-12.3 [facility] Comment on above: Order Comment: Immature [...] no longer indicated. Testing performed at [facility], [address] [place] [address] 25855 Platelets (Bld) [#/Vol] 315 10*3/uL Normal 182-369 [facility] Comment on above: Order Comment: Immature [...] is no longer indicated. Testing performed at [facility], [address] [place] [address] 74046 RBC (Bld) [#/Vol] 4.05 10*6/uL Normal 3.93-5.22 [facility] Comment on above: Order Comment: Immature [...] no longer indicated. Testing performed at [facility], [address] [place] [address] 10150 RDW-SD (B) 41.0 fL Normal 36.4-46.3 [facility] Comment on above: Order Comment: Immature [...] no longer indicated. Testing performed at [facility], [address] [place] [address] 95234 WBC (Bld) [#/Vol] 9.8 10*3/uL Normal 4.0-10.0 [facility] Comment on above: Order Comment: [...] no longer indicated. Testing performed at [facility], [address] [place] [address] NECK WITHOUT CONTRASTon 0 08-08-2022 CT [...] Schultz MD On: 08/08/2022 4:07 PM Normal [facility] EST Glomerular Filtration Ra jude 08-08-2022 EAGFR (B) >60 Normal >60 [facility] Comment on above: Order Comment: The c alculated GFR uses the (IDMS)-traceable creatinine MDRD equation and is reported in mL/min/1.73 square meters. This formula is not recommended for use with individuals with unstable creatinine concentrations, extremes in muscle mass and/or body size, or alternative diets and may not be suitable for all patient populations. Testing performed at [facility], [address] [place], [place] [phone] Result Comment: The reported eGFR is based on a non- patient, for Americans multiply the result by 1.212. Pap IG, rfx Aptima HPV, rfx 16/18,45on 06-11-2022 . . Normal [facility] Comment on above: Result Comment: Perf ormed at: WB Performed By: #### P APHR2A #### [facility] [address] [place] [address] Dr. [facility] DIAGNOSIS: Comment Normal [facility] Comment on above: Result Comment: NEGA TIVE FOR INTRAEPITHELIAL LESION OR MALIGNANCY. Performed at: WB Performed By: #### P APHR2A #### [facility] [address] [place] [address] Dr. [facility] HPV Aptima Negative Normal Negative [facility] Comment on above: Result Comment: This nucleic acid amplification test detects fourteen high-risk HPV types (16,18,31,33,35,39,45,51,52,56,58,59,66,68) without differentiation. Performed at: =G Performed By: #### P APHR2A #### [facility] [address] [place] [address] Dr. [facility] HPV Genotype Reflex Comment Normal [facility] Comment on above: Result Comment: Crit eria not met, HPV Genotype not performed. Performed at: WB Performed By: #### P APHR2A #### [facility] [address] [place] [address] Dr. [facility] Methodology: Comment Normal [facility] Comment on above: Result Comment: This liquid based ThinPrep(R) pap test was screened with the use of an image guided system. Performed at: WB Performed By: #### P APHR2A #### [facility] [address] [place] [address] Dr. [facility] Note: Comment Normal [facility] Comment on above: Result Comment: The [...] WB Performed By: #### P APHR2A #### [facility] [address] [place] [address] Dr. Jose [facility] Strong Performed by: Comment Normal [facility] Comment on above: Result Comment: Koffi Hutchinson, [employer] Breast Fabricator (ASCP) Performed at: WB Performed By: #### P [id number] #### [facility] [address] [place] [address] Dr. Jose Elias Strong Specimen adequacy: Comment Normal [facility] Comment on above: Result Comment: Sati sfactory for evaluation. Endocervical and/or squamous metaplastic cells (endocervical component) are present. Performed at: WB Performed By: #### P [id number] #### [facility] [address] [place] [address] Dr. Jose Elias Strong PAP ACOG PANEL 2: 21 to 29on 11-20-2021 . . Normal [facility] Comment on above: Performed By: #### [id number] #### [facility] [address] [place] [address] Dr. Jose Elias Strong Age Gdln ACOG Testing - [facility] Comment on above: Performed By: #### [id number] #### [facility] [address] [place] [address] Dr. Jose Elias Strong DIAGNOSIS: Comment [facility] Comment on above: Result Comment: NEGA TIVE FOR INTRAEPITHELIAL LESION OR MALIGNANCY. REACTIVE CELLULAR CHANGES AND/OR REPAIR ARE PRESENT. Performed By: #### [id number] #### [facility] [address] [place] [address] Dr. Jose Elias Strong Electronically signed by: Comment [facility] Comment on above: Result Comment: Melinda Patel MD, Pathologist Performed By: #### [id number] #### [facility] [address] [place] [address] Dr. Jose Elias Strong Methodology: Comment [facility] Comment on above: Result Comment: This liquid based ThinPrep(R) pap test was screened with the use of an image guided system. Performed By: #### [id number] #### [facility] [address] [place] [address] Dr. Jose Elias Strong Note: Comment Normal [facility] Comment on above: Result Comment: The Pap smear is a screening test designed to aid in the detection of premalignant and malignant conditions of the uterine cervix. It is not a diagnostic procedure and should not be used as the sole means of detecting cervical cancer. Both false-positive and false-negative reports do occur. . Performed By: #### [id number] #### [facility] [address] [place] [address] Dr. Jose Elias Strong Performed by: Comment Normal [facility] Comment on above: Result Comment: Lilian Romero Artificial Breast Fabricator (ASCP) Performed By: #### [id number] #### [facility] [address] [place] [address] Dr. Jose Elias Strong Reflex Criteria: Comment Normal [facility] Comment on above: Result Comment: The HPV DNA reflex criteria were not met with this specimen result therefore, no HPV testing was performed. . Performed By: #### [id number] #### [facility] [address] [place] [address] Dr. Jose Elias Strong Specimen adequacy: Comment Normal [facility] Comment on above: Result Comment: Sati sfactory for evaluation. Endocervical and/or squamous metaplastic cells (endocervical component) are present. Performed By: #### [id number] #### [facility] [address] [place] [address] Dr. Jose Elias Strong CBC W MANUAL DIFFon 08-21-19 22 ANISOCYTOSIS 1+ Normal [facility] Comment on above: Performed By: #### T NS #### [facility] [address] [place] [address] Dr. Jose Elias Strong ATYPICAL LYMPH # Normal [facility] Comment on above: Performed By: #### T NS #### [facility] [address] [place] [address] Dr. Jose Elias Strong ATYPICAL LYMPH % Normal [facility] Comment on above: Performed By: #### T NS #### [facility] [address] [place] [address] Dr. Jose Elias Strong BAND # 0.2 103/ul Normal 0.0-0.3 [facility] Comment on above: Performed By: #### T NS #### [facility] [address] [place] [address] Dr. Jose Elias Strong BAND % 1 % Normal 0-5 [facility] Comment on above: Performed By: #### T NS #### [facility] [address] [place] [address] Dr. Jose Elias Strong BASOM # 0.00 103/ul Normal 0.00-0.10 [facility] Comment on above: Performed By: #### T NS #### [facility] [address] [place] [address] Dr. Jsoe Elias Strong BASOM % 0.0 % Critically low 0.2-2.0 [facility] Comment on above: Performed By: #### T NS #### [facility] [address] [place] [address] Dr. Jose Elias Strong BLAST # Normal [facility] Comment on above: Performed By: #### T NS #### [facility] [address] [place] [address] Dr. Jose Elias Strong BLAST % Normal [facility] Comment on above: Performed By: #### T NS #### [facility] [address] [place] [address] Dr. Jose Elias Strong CORRECTED WBC Normal 4.0-11.0 [facility] Comment on above: Performed By: #### T NS #### [facility] [address] [place] [address] Dr. Jose Elias Strong EOS # 0.00 103/ul Normal 0.00-0.70 [facility] Comment on above: Performed By: #### T NS #### [facility] [address] [place] [address] Dr. Jose Elias Strong EOS% 0.0 % Critically low 0.9-7.0 [facility] Comment on above: Performed By: #### T NS #### [facility] [address] [address] [address] Jose Elias Strong HCT 27.5 % Critically low 36.0-48.0 [facility] Comment on above: Performed By: #### T NS #### [facility] [address] [address] [address] Jose Elias Strong HGB 8.1 g/dl Critically low 12.0-16.0 [facility] Comment on above: Performed By: #### T NS #### [facility] [address] [address] [address] Jose Elias Strong LYMPHM # 1.62 103/ul Normal 1.20-3.80 [facility] Comment on above: Performed By: #### T NS #### [facility] [address] [place] [address] Dr. Jose Elias Strong LYMPHM% 9.0 % Critically low 20.5-60.0 [facility] Comment on above: Performed By: #### T NS #### [facility] [address] [place] [address] Dr. Jose Elias Strong MCH 22.2 pg Critically low 26.7-34.0 [facility] Comment on above: Performed By: #### T NS #### [facility] [address] [place] [address] Dr. Jose Elias Strong MCHC 29.5 g/dl Critically low 29.9-35.2 [facility] Comment on above: Performed By: #### T NS #### [facility] [address] [place] [address] Dr. Jose Elias Strong MCV 75.3 fL Critically low 81.0-99.0 [facility] Comment on above: Performed By: #### T NS #### [facility] [address] [place] [address] Dr. Jose Elias Strong METAMYELOCYTE # Normal [facility] Comment on above: Performed By: #### T NS #### [facility] [address] [place] [address] Dr. Jose Elias Strong METAMYELOCYTE % Normal [facility] [place] Comment on above: Performed By: #### T NS #### [facility] [address] [address] [address] Jose Elias Strong MONOM# 1.62 103/ul Critically high 0.30-0.80 [facility] Comment on above: Performed By: #### T NS #### [facility] [address] [address] [address] Jose Elias Strong MONOM% 9.0 % Normal 1.7-12.0 [facility] Comment on above: Performed By: #### T NS #### [facility] [address] [place] [address] Dr. Jose Elias Strong MPV 9.6 fL Normal 9.5-13.5 [facility] Comment on above: Performed By: #### T NS #### [facility] [address] [place] [address] Dr. Jose Elias Strong MYELOCYTE # Normal [facility] Comment on above: Performed By: #### T NS #### [facility] [address] [place] [address] Dr. Jose Elias Strong MYELOCYTE % Normal [facility] Comment on above: Performed By: #### T NS #### [facility] [address] [place] [address] Dr. Jose Elias Strong NRBC Normal [facility] Comment on above: Performed By: #### T NS #### [facility] [address] [place] [address] Dr. Jose Elias Strong PLT 308 103/ul Normal 150-450 [facility] Comment on above: Performed By: #### T NS #### [facility] [address] [place] [address] Dr. Jose Elias Strong RBC 3.65 106/ul Critically low 4.20-5.40 [facility] [place] Comment on above: Performed By: #### T NS #### [facility] [address] [place] [address] Dr. Jose Elias Strong RDW 15.7 % Critically high 11.0-15.0 [facility] Comment on above: Performed By: #### T NS #### [facility] [address] [address] [address] Jose Elias Strong SEG # 14.58 103/ul Critically high 1.40-6.50 [facility] Comment on above: Performed By: #### T NS #### [facility] [address] [place] [address] Dr. Jose Elias Strong SEG % 81.0 % Critically high 43.0-75.0 [facility] Comment on above: Performed By: #### T NS #### [facility] [address] [place] [address] Dr. Jose Elias Strong WBC 18.0 103/ul Critically high 4.0-11.0 [facility] Comment on above: Performed By: #### T NS #### [facility] [address] [place] [address] Dr. Jose Elias Strong DRUG SCREEN RAPID (URINE)on 08-20-2021 AMP Negative Normal NEGATIVE [facility] Comment on above: Performed By: #### T NS #### [facility] [address] [place] [address] Dr. Jose Elias Strong BAR Negative Normal NEGATIVE [facility] Comment on above: Performed By: #### T NS #### [facility] [address] [place] [address] Dr. Jose Elias Strong BUP Negative Normal NEGATIVE [facility] Comment on above: Performed By: #### T NS #### [facility] [address] [place] [address] Dr. Jose Elias Strong BZO Negative Normal NEGATIVE [facility] Comment on above: Performed By: #### T NS #### [facility] [address] [place] [address] Dr. Jose Elias Strong PAXTON Negative Normal NEGATIVE [facility] Comment on above: Performed By: #### T NS #### [facility] [address] [place] [address] Dr. Jose Elias Strong CUT-OFFS SEE BELOW Normal [facility] Comment on above: Result Comment: AMP [...] ng/mL Performed By: #### T NS #### [facility] [address] [place] [address] Dr. Jose Elias Strong DRUG CUT HEADER DRUG CLASS TEST SYSTEM CUT-OFF CONCENTRATIONS ARE FOLLOWS: Normal [facility] Comment on above: Performed By: #### T NS #### [facility] [address] [place] [address] Dr. Jose Elias Strong mAMP Negative Normal NEGATIVE [facility] Comment on above: Performed By: #### T NS #### [facility] [address] [place] [address] Dr. Jose Elias Strong MTD Negative Normal NEGATIVE [facility] Comment on above: Performed By: #### T NS #### [facility] [address] [place] [address] Dr. Jose Elias Strong OPI Negative Normal NEGATIVE [facility] Comment on above: Performed By: #### T NS #### [facility] [address] [place] [address] Dr. Jose Elias Strong OXY Negative Normal NEGATIVE [facility] Comment on above: Performed By: #### T NS #### [facility] [address] [place] [address] Dr. Jose Elias Strong PCP Negative Normal NEGATIVE [facility] Comment on above: Performed By: #### T NS #### [facility] [address] [place] [address] Dr. Jose Elias Strong PPX Negative Normal NEGATIVE [facility] Comment on above: Performed By: #### T NS #### [facility] [address] [place] [address] Dr. Jose Elias Strong TCA Negative Normal NEGATIVE [facility] Comment on above: Performed By: #### T NS #### [facility] [address] [place] [address] Dr. Jose Elias Strong THC Negative Normal NEGATIVE [facility] Comment on above: Performed By: #### T NS #### [facility] [address] [place] [address] Dr. Jose Elias Strong UA (CLEAN/CATCH) SALES REPRESENTATIVE MALT LIQUORS/MICRO I F IND.on 08-20-2021 Bilirubin Ql (U) Negative Normal NEGATIVE [facility] Comment on above: Performed By: #### U MICRO, UACSIND #### [facility] [address] [place] [address] Dr. Jose Elias Strong Clarity (U) SL CLOUDY Abnormal CLEAR [facility] Comment on above: Performed By: #### U MICRO, UACSIND #### [facility] [address] [place] [address] Dr. Jose Elias Strong Color (U) RED Abnormal YELLOW [facility] Comment on above: Performed By: #### U MICRO, UACSIND #### [facility] [address] [place] [address] Dr. Jose Elias Strong Glucose Ql (U) Negative Normal NEGATIVE [facility] Comment on above: Performed By: #### U MICRO, UACSIND #### [facility] [address] [place] [address] Dr. Jose Elias Strong Hemoglobin Ql (U) LARGE Abnormal NEGATIVE [facility] Comment on above: Performed By: #### U MICRO, UACSIND #### [facility] [address] [place] [address] Dr. Jose Elias Strong Ketones Ql (U) 15 mg/dl Abnormal NEGATIVE [facility] Comment on above: Performed By: #### U MICRO, UACSIND #### [facility] [address] [place] [address] Dr. Jose Elias Strong LEUKOCYTES TRACE Abnormal NEGATIVE [facility] Comment on above: Performed By: #### U MICRO, UACSIND #### [facility] [address] [place] [address] Dr. Jose Elias Strong Nitrite Ql (U) Negative Normal NEGATIVE [facility] Comment on above: Performed By: #### U MICRO, UACSIND #### [facility] [address] [address] [address] Jose Elias Strong pH (U) 7.0 [pH] Normal 5-9 [facility] Comment on above: Performed By: #### U MICRO, UACSIND #### [facility] [address] [address] [address] Jose Elias Strong SPEC GRAVITY 1.020 Normal 1.005-<=1.025 [facility] [place] Comment on above: Performed By: #### U MICRO, UACSIND #### [facility] [address] [address] [address] Jose Elias Strong UA PROTEIN 30 mg/dl Abnormal NEGATIVE/ TRACE [facility] Comment on above: Performed By: #### U MICRO, UACSIND #### [facility] [address] [place] [address] Dr. Jose Elias Strong UR MICRO IND INDICATED Normal [facility] Comment on above: Performed By: #### U MICRO, UACSIND #### [facility] [address] [address] [address] Jose Elias Strong Urobilinogen Qn (U) 0.2 {Mago'U}/dL Normal 0.2 - 1. 0 [facility] Comment on above: Performed By: #### U MICRO, UACSIND #### [facility] [address] [address] [address] Jose Elias Strong URINE MICROSCOPIC ONLYon BACTERIA NONE SEEN Normal NONE SEEN [facility] Comment on above: Performed By: #### U MICRO, UACSIND #### [facility] [address] [address] [address] Jose Elias Strong Bacteria identified Cx Nom (U) NOT INDICATED Normal [facility] Comment on above: Performed By: #### U MICRO, UACSIND #### [facility] [address] [address] [address] Jose Elias Strong CAST NONE SEEN Normal NONE SEEN [facility] Comment on above: Performed By: #### U MICRO, UACSIND #### [facility] [address] [place] [address] Dr. Jose Elias Strong Crystals LM Nom (Urine sed) NONE SEEN Normal NONE SEEN [facility] Comment on above: Performed By: #### U MICRO, UACSIND #### [facility] [address] [place] [address] Dr. Jose Elias Strong Epithelial cells LM Ql (Urine sed) NONE SEEN Normal NONE SEEN /RARE [facility] Comment on above: Performed By: #### U MICRO, UACSIND #### [facility] [address] [place] [address] Dr. Jose Elias Strong MUCOUS NONE SEEN Normal NONE SEEN [facility] Comment on above: Performed By: #### U MICRO, UACSIND #### [facility] [address] [place] [address] Dr. Jose Elias Strong RBC (U) [#/Vol] /uL Abnormal 0-2 [facility] [place] Comment on above: Performed By: #### U MICRO, UACSIND #### [facility] [address] [place] [address] Dr. Jose Elias Strong WBC 0-2 Abnormal NONE SEEN [facility] Comment on above: Performed By: #### U MICRO, UACSIND #### [facility] [address] [place] [address] Dr. Jose Elias Strong CBC AUTO DIFFon 08-19-2021 BASO # 0.0 103/ul Normal 0.0-0.1 [facility] Comment on above: Performed By: #### T NS #### [facility] [address] [place] [address] Dr. Jose Elias Strong Basophils/100 WBC (Bld) 0.2 % Normal 0.2-2.0 [facility] Comment on above: Performed By: #### T NS #### [facility] [address] [place] [address] Dr. Jose Elias Strong EO # 0.1 103/ul Normal 0.0-0.7 [facility] Comment on above: Performed By: #### T NS #### [facility] [address] [place] [address] Dr. Jose Elias Strong Eosinophils/100 WBC (Bld) 0.7 % Critically low 0.9-7.0 [facility] Comment on above: Performed By: #### T NS #### [facility] [address] [place] [address] Dr. Jose Elias Strong Erythrocyte distribution width (RBC) [Ratio] 15.9 % Critically high 11.0-15.0 [facility] Comment on above: Performed By: #### T NS #### [facility] [address] [place] [address] Dr. Jose Elias Strong Hematocrit (Bld) [Volume fraction] 32.4 % Critically low 36.0-48.0 [facility] Comment on above: Performed By: #### T NS #### [facility] [address] [place] [address] Dr. Jose Elias Strong Hemoglobin (Bld) [Mass/Vol] 9.7 g/dL Critically low 12.0-16.0 [facility] Comment on above: Performed By: #### T NS #### [facility] [address] [place] [address] Dr. Jose Elias Strong IG # 0.19 10e3/ul Critically high 0.00-0.03 [facility] Comment on above: Performed By: #### T NS #### [facility] [address] [place] [address] Dr. Jose Elias Strong IG % 1.4 % Critically high 0.0-0.5 [facility] [place] Comment on above: Performed By: #### T NS #### [facility] [address] [place] [address] Dr. Jose Elias Strong LYMPH # 1.9 103/ul Normal 1.2-3.8 [facility] Comment on above: Performed By: #### T NS #### [facility] [address] [place] [address] Dr. Jose Elias Strong Lymphocytes/100 WBC (Bld) 14.4 % Critically low 20.5-60.0 [facility] Comment on above: Performed By: #### T NS #### [facility] [address] [place] [address] Dr. Jose Elias Strong MANUAL DIFF REQ NO Normal [facility] [place] Comment on above: Performed By: #### T NS #### [facility] [address] [place] [address] Dr. Jose Elias Strong MCH (RBC) [Entitic mass] 22.3 pg Critically low 26.7-34.0 [facility] Comment on above: Performed By: #### T NS #### [facility] [address] [place] [address] Dr. Jose Elias Strong MCHC (RBC) [Mass/Vol] 29.9 g/dL Normal 29.9-35.2 [facility] Comment on above: Performed By: #### T NS #### [facility] [address] [place] [address] Dr. Jose Elias Strong MCV (RBC) [Entitic vol] 74.5 fL Critically low 81.0-99.0 [facility] Comment on above: Performed By: #### T NS #### [facility] [address] [place] [address] Dr. Jose Elias Strong MONO # 1.4 103/ul Critically high 0.3-0.8 [facility] Comment on above: Performed By: #### T NS #### [facility] [address] [place] [address] Dr. Jose Elias Strong Monocytes/100 WBC (Bld) 10.1 % Normal 1.7-12.0 [facility] Comment on above: Performed By: #### T NS #### [facility] [address] [place] [address] Dr. Jose Elias Strong NEUT # 9.8 103/ul Critically high 1.4-6.5 [facility] [place] Comment on above: Performed By: #### T NS #### [facility] [address] [place] [address] Dr. Jose Elias Strong Neutrophils/100 WBC (Bld) 73.2 % Normal 43.0-75.0 [facility] Comment on above: Performed By: #### T NS #### [facility] [address] [place] [address] Dr. Jose Elias Strong Platelet mean volume (Bld) [Entitic vol] 10.0 fL Normal 9.5-13.5 [facility] Comment on above: Performed By: #### T NS #### [facility] [address] [place] [address] Dr. Jose Elias Strong PLT 337 103/ul Normal 150-450 [facility] Comment on above: Performed By: #### T NS #### [facility] [facility] [address] [place] [address] Dr. Jose Elias Strong RBC 4.35 106/ul Normal 4.20-5.40 [facility] Comment on above: Performed By: #### T NS #### [facility] [address] [place] [address] Dr. Jose Elias Strong WBC 13.4 103/ul Critically high 4.0-11.0 [facility] Comment on above: Performed By: #### T NS #### [facility] [address] [place] [address] Dr. Jose Elias Strong Covid-19 PCR ([facility])on 08-03 SARS-CoV-2 (COVID-19) RNA [place]+probe Ql (Unsp spec) Not detected Normal NOT DETECTED [facility] Comment on above: Result [...] for this test is supported by the [place] of Health and Human Service's declaration that [...] used). Performed By: #### C VDTBH #### [facility] [address] [address] [address] Jose Elias Strong TYPE AND SCREENon 08-19-2021 TYPE AND SCREEN Negative Normal [facility] Comment on above: Performed By: #### T NS #### [facility] [address] [place] [address] Dr. Jose Elias Strong GROUP B STREP CULTUREon 07-05 S. agalactiae Ag Ql (Unsp spec) Culture Observations: NEGATIVE FOR GROUP B STREPTOCOCCUS. Normal [facility] Comment on above: Performed By: #### G BSCX #### [facility] [address] [place] [address] Dr. Jose Elias Strong UA (CLEAN/CATCH) SALES REPRESENTATIVE MALT LIQUORS/MICRO I F IND.on 06-28-2021 Bilirubin Ql (U) Negative Normal NEGATIVE [facility] Comment on above: Performed By: #### U ACSIND, UMICRO #### [facility] [address] [place] [address] Dr. Jose Elias Strong Clarity (U) CLEAR Normal CLEAR [facility] Comment on above: Performed By: #### U ACSIND, UMICRO #### [facility] [address] [address] [address] Jose Elias Strong Color (U) LT. YELLOW Normal YELLOW [facility] Comment on above: Performed By: #### U ACSIND, UMICRO #### [facility] [address] [place] [address] Dr. Jose Elias Strong Glucose Ql (U) Negative Normal NEGATIVE [facility] Comment on above: Performed By: #### U ACSIND, UMICRO #### [facility] [address] [place] [address] Dr. Jose Elias Strong Hemoglobin Ql (U) Negative Normal NEGATIVE [facility] Comment on above: Performed By: #### U ACSIND, UMICRO #### [facility] [address] [place] [address] Dr. Jose Elias Strong Ketones Ql (U) Negative Normal NEGATIVE [facility] Comment on above: Performed By: #### U ACSIND, UMICRO #### [facility] [address] [place] [address] Dr. Jose Elias Strong LEUKOCYTES TRACE Abnormal NEGATIVE [facility] Comment on above: Performed By: #### U ACSMICHAEL UMICRO #### [facility] [address] [address] [address] Jose Elias Strong Nitrite Ql (U) Negative Normal NEGATIVE [facility] Comment on above: Performed By: #### U ACSMICHAEL UMICRO #### [facility] [address] [address] [address] JoseE lias Strong pH (U) 6.5 [pH] Normal 5-9 [facility] Comment on above: Performed By: #### U RODOLFO MANCILLAICRO #### [facility] [address] [place] [address] Dr. Jose Elias Strong SPEC GRAVITY 1.015 Normal 1.005-<=1.025 [facility] Comment on above: Performed By: #### U LAURENT UMICRO #### [facility] [address] [place] [address] Dr. Jose Elias Strong UA PROTEIN Negative Normal NEGATIVE/ TRACE [facility] Comment on above: Performed By: #### U RODOLFO MANCILLAICRO #### [facility] [address] [place] [address] Dr. Jose Elias Strong UR MICRO IND INDICATED Normal [facility] Comment on above: Performed By: #### U LAURENT UMICRO #### [facility] [address] [place] [address] Dr. Jose Elias Strong Urobilinogen Qn (U) 0.2 {Mago'U}/dL Normal 0.2 - 1. 0 [facility] Comment on above: Performed By: #### U LAURENT UMICRO #### [facility] [address] [place] [address] Dr. Jose Elias Strong URINE MICROSCOPIC ONLYon AMORPHOUS CRYSTALS FEW Normal [facility] Comment on above: Performed By: #### U ACSMICHAEL UMICRO #### [facility] [address] [place] [address] Dr. Jose Elias Strong BACTERIA TRACE Abnormal NONE SEEN [facility] Comment on above: Performed By: #### U ACSIND, UMICRO #### [facility] [address] [place] [address] Dr. Jose Elias Strong Bacteria identified Cx Nom (U) NOT INDICATED Normal [facility] Comment on above: Performed By: #### U ACSIND, UMICRO #### [facility] [address] [place] [address] Dr. Jose Elias Strong CAST NONE SEEN Normal NONE SEEN [facility] Comment on above: Performed By: #### U ACSIND, UMICRO #### [facility] [address] [place] [address] Dr. Jose Elias Strong Crystals LM Nom (Urine sed) SEEN Abnormal NONE SEEN [facility] Comment on above: Performed By: #### U ACSIND, UMICRO #### [facility] [address] [place] [address] Dr. Jose Elias Strong Epithelial cells LM Ql (Urine sed) RARE Normal NONE SEEN /RARE [facility] Comment on above: Performed By: #### U ACSIND, UMICRO #### [facility] [address] [place] [address] Dr. Jose Elias Strong MUCOUS TRACE Abnormal NONE SEEN [facility] Comment on above: Performed By: #### U ACSIND, UMICRO #### [facility] [address] [place] [address] Dr. Jose Elias Strong RBC 0-2 Normal 0-2 [facility] Comment on above: Performed By: #### U ACSIND, UMICRO #### [facility] [address] [place] [address] Dr. Jose Elias Strong WBC 2-5 Abnormal NONE SEEN [facility] Comment on above: Performed By: #### U ACSIND, UMICRO #### [facility] [address] [place] [address] Dr. Jose Elias Strong CBC AUTO DIFFon 06-19-2021 BASO # 0.0 103/ul Normal 0.0-0.1 [facility] Comment on above: Performed By: #### C BC #### [facility] [address] [address] [address] Jose Elias Strong Basophils/100 WBC (Bld) 0.3 % Normal 0.2-2.0 [facility] Comment on above: Performed By: #### C BC #### [facility] [address] [address] [address] Jose Elias Strong EO # 0.2 103/ul Normal 0.0-0.7 [facility] Comment on above: Performed By: #### C BC #### [facility] [address] [address] [address] Jose Elias Strong Eosinophils/100 WBC (Bld) 2.0 % Normal 0.9-7.0 [facility] Comment on above: Performed By: #### C BC #### [facility] [address] [place] [address] Dr. Jose Elias Strong Erythrocyte distribution width (RBC) [Ratio] 13.6 % Normal 11.0-15.0 [facility] Comment on above: Performed By: #### C BC #### [facility] [address] [address] [address] Jose Elias Strong Hematocrit (Bld) [Volume fraction] 29.4 % Critically low 36.0-48.0 [facility] Comment on above: Performed By: #### C BC #### [facility] [address] [place] [address] Dr. Jose Elias Strong Hemoglobin (Bld) [Mass/Vol] 9.5 g/dL Critically low 12.0-16.0 [facility] Comment on above: Performed By: #### C BC #### [facility] [address] [address] [address] Jose Elias Strong IG # 0.14 10e3/ul Critically high 0.00-0.03 [facility] Comment on above: Performed By: #### C BC #### [facility] [address] [address] [address] Jose Elias Strong IG % 1.4 % Critically high 0.0-0.5 [facility] [place] Comment on above: Performed By: #### C BC #### [facility] [address] [address] [address] Jose Elias Strong LYMPH # 1.6 103/ul Normal 1.2-3.8 [facility] Comment on above: Performed By: #### C BC #### [facility] [address] [address] [address] Jose Elias Strong Lymphocytes/100 WBC (Bld) 15.5 % Critically low 20.5-60.0 [facility] Comment on above: Performed By: #### C BC #### [facility] [address] [place] [address] Dr. Jose Elias Strong MANUAL DIFF REQ NO Normal [facility] [place] Comment on above: Performed By: #### C BC #### [facility] [address] [place] [address] Dr. Jose Elias Strong MCH (RBC) [Entitic mass] 26.8 pg Normal 26.7-34.0 [facility] Comment on above: Performed By: #### C BC #### [facility] [address] [place] [address] Dr. Jose Elias Strong MCHC (RBC) [Mass/Vol] 32.3 g/dL Normal 29.9-35.2 [facility] Comment on above: Performed By: #### C BC #### [facility] [address] [place] [address] Dr. Jose Elias Strong MCV (RBC) [Entitic vol] 82.8 fL Normal 81.0-99.0 [facility] Comment on above: Performed By: #### C BC #### [facility] [address] [place] [address] Dr. Jose Elias Strong MONO # 1.2 103/ul Critically high 0.3-0.8 [facility] [place] Comment on above: Performed By: #### C BC #### [facility] [address] [place] [address] Dr. Jose Elias Strong Monocytes/100 WBC (Bld) 12.2 % Critically high 1.7-12.0 [facility] Comment on above: Performed By: #### C BC #### [facility] [address] [address] [address] Jose Elias Strong NEUT # 7.0 103/ul Critically high 1.4-6.5 [facility] [place] Comment on above: Performed By: #### C BC #### [facility] [address] [address] [address] Jose Elias Strong Neutrophils/100 WBC (Bld) 68.6 % Normal 43.0-75.0 [facility] Comment on above: Performed By: #### C BC #### [facility] [address] [address] [address] Jose Elias Strong Platelet mean volume (Bld) [Entitic vol] 9.1 fL Critically low 9.5-13.5 [facility] Comment on above: Performed By: #### C BC #### [facility] [address] [address] [address] Jose Elias Strong PLT 309 103/ul Normal 150-450 [facility] Comment on above: Performed By: #### C BC #### [facility] [address] [address] [address] Jose Elias Strong RBC 3.55 106/ul Critically low 4.20-5.40 [facility] [place] Comment on above: Performed By: #### C BC #### [facility] [address] [place] [address] Dr. Jose Elias Strong WBC 10.1 103/ul Normal 4.0-11.0 [facility] Comment on above: Performed By: #### C BC #### [facility] [address] [address] [address] Jose Elias Strong GLYCOHEMOGLOBIN A1Con 2021 ADA RECOMMENDATION ADA THERAPEUTIC TARGET 6.0 - 7.0 ACTION SUGGESTED > 7.0 Normal [facility] Comment on above: Performed By: #### T NS #### [facility] [address] [place] [address] Dr. Jose Elias Strong Glucose [Mass/Vol] 97 mg/dL Normal [facility] Comment on above: Performed By: #### T NS #### [facility] [address] [place] [address] Dr. Jose Elias Strong HbA1c (Bld) [Mass fraction] 5.0 % Normal <=6.0 [facility] Comment on above: Performed By: #### T NS #### [facility] [id number] Jose Elias Strong Consenton 10-24-2020 Consent [id number] .[id number]:127 [facility] In office Testingon 10-25-19 21 In office Testing [id number] 1.00CD:127 [facility] Registrationon 10-24-2020 Registration [id number] .00CD:127 [facility] Registration [id number] .[id number]:127 [facility] Vital Signs Date Time Vital Sign Value Performing Clinician Facility 11-27-2023 14:39-0400 Body height 165.1 cm [facility] Aguilar Work Phone: [facility] 11-27-2023 14:39-0400 Body mass index (BMI) [Ratio] 24 kg/m2 [facility] Agu[facility] Work Phone: [facility] 11-27-2023 14:39-0400 Body temperature 98 [degF] [facility] Arpita Jeff Work Phone: [facility] 11-27-2023 14:39-0400 Body weight 65.4 kg [facility] Arpita Aguilar Work Phone: [facility] 11-27-2023 14:39-0400 Diastolic blood pressure 68 mm[Hg] [facility] Arpita Aguilar Work Phone: [facility] 11-27-2023 14:39-0400 Heart rate 87 /min [facility] Arpita Aguilar Work Phone: [facility] 11-27-2023 14:39-0400 Respiratory rate 18 /min [employer]PARATION ANALYST-C Arpita Aguilar Work Phone: [facility] 11-27-2023 14:39-0400 SaO2% (BldA) [Mass fraction] 97 % ORGANIC PREPARATION ANALYST-C Arpita Aguilar Work Phone: [facility] 11-27-2023 14:39-0400 Systolic blood pressure 98 mm[Hg] ORGANIC PREPARATION ANALYST-C Arpita Aguilar Work Phone: [facility] 06-12-2023 11:02-0500 Body mass index (BMI) [Ratio] 30.26 kg/m2 Mary Venkat DO Work Phone: [facility] 06-12-2023 11:02-0500 Body weight 77.47 kg Mary Venkat DO Work Phone: [facility] 06-12-2023 11:02-0500 Diastolic blood pressure 70 mm[Hg] Mary Venkat DO Work Phone: [facility] 06-12-2023 11:02-0500 Systolic blood pressure 118 mm[Hg] Mary Venkat DO Work Phone: [facility] Encounters Encounter Date Encounter Type Care Provider Facility Start: 11-27-2023 End: 11-27-2023 ambulatory ORGANIC PREPARATION ANALYST-C Arpita Aguilar Work Phone: [facility] Work Phone: Start: 11-27-2023 End: 11-27-2023 Patient encounter procedure ORGANIC PREPARATION ANALYST-C Arpita Aguilar Work Phone: [facility] Work Phone: Start: 09-10-2023 End: [...] Not Available Start: 12-10-2022 ambulatory [facility] Start: 11-19-2022 End: 11-19-2022 ambulatory [facility] Start: 10-28-2022 End: 10-29-2022 ambulatory [facility] Start: 08-29-2022 ambulatory [facility] Start: 08-19-2022 End: 08-19-2022 Emergency department patient visit YOMAIRA GUILLEN [facility] Start: 08-08-2022 End: 08-08-2022 Emergency department patient visit JERRY WALLS [facility] Start: 06-04-2022 End: 06-04-[address] [...] PM EST Routine [facility] [address] [id number] Erika Chan PA [address] [place] [address] [facility] Payers Date Payer Category Payer Medicaid [id number] 2022 Medicaid [employer] [place] [id number] 2022-Present [address] [place] [address] [id number] 1995 Unknown [id number] 1995 Unknown [id number] 2.840.1.973532.3.579.2.593 1995 Unknown [id number] 2.840.1.131423.3.579.2.593 1995 Unknown [id number] 2.840.1.319121.3.579.2.593 1995 Unknown [id number] 2.840.1.353115.3.579.2.593 1995 Unknown [id number] 2.840.1.397326.3.579.2.593 1995 Unknown [id number] 2.16.840.1.960507.3.579.2.593 1995 Unknown [id number] 2.16.840.1.524131.3.579.2.593 1995 Unknown [id number] 2.16.840.1.335921.3.579.2.1212 1995 Unknown [id number] 2.16.840.1.183888.3.579.2.1212 1995 Unknown [id number] 2.16.840.1.348971.3.579.2.1212 1995 Unknown [id number] 2.16.840.1.179647.3.579.2.1212 1995 Unknown [id number] 2.16.840.1.463208.3.579.2.1212 1995 Unknown [id number] 2.16.840.1.355195.3.579.2.1212 1995 Unknown [id number] 2.16.840.1.438563.3.579.2.1258 1995 Unknown [id number] 2.16.840.1.447188.3.579.2.1258 1995 Unknown [id number] 2.16.840.1.831502.3.579.2.1258 1995 Unknown [id number] 2.16.840.1.415994.3.579.2.1258 1995 Unknown [id number] 2.16.840.1.218255.3.579.2.1258 1995 Unknown [id number] 2.16.840.1.253197.3.579.2.1258 1995 Unknown [id number] 2.16.840.1.349623.3.579.2.1258 1995 Unknown [id number] 2.16.840.1.593545.3.579.2.1259 1959 Unknown [id number] Social History Date Type Detail Facility Start: 10-21-2022 End: 11-27-2023 Tobacco smoking status NHIS Never smoked tobacco [facility] Start: 10-21-2022 Tobacco use and exposure Smoke less tobacco non-user [facility] Start: 06-12-2023 Alcohol intake Lifetime non-d deborah (finding) [facility] Start: 10-21-2022 History of Social function [facility] Start: 10-21-2022 Tobacco use panel [facility] Start: 11-11-2022 [facility] Start: 1995 Sex Assigned At Female [facility] Start: 10-20-2022 Gender identity Identifies as female gender (finding) [facility] Start: 10-20-2022 Sexual orientation Bisexual (finding ) [facility] Start: 11-27-2023 With Spouse/Significant Other [facility] Start: 11-27-2023 0 [facility] Start: 11-27-2023 Denies Use [facility] History of Present illness Narrative 06-12-2023 [...] Noted Acute asthma ([facility]) 12/03/2022 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 12/03/2022 Neck swelling 08/19/2022 Schizoaffective disorder ([facility]) 12/03/2022 Resolved Ambulatory Problems Diagnosis [...] nursing note reviewed. Exam conducted with a airplane patroller present. Vitals: Estimated body mass index is [...] Facility Evaluation note No assessment information availa [facility] [employer] Work Phone: Summary Purpose Family History No [...] section and content) DATE CREATED AUTHOR 10/25/2020 [place] [facility] DATE CREATED AUTHOR AUTHOR'S ORGANIZ ATION 06/11/2022 [facility] DATE CREATED AUTHOR AUTHOR'S ORGANIZ ATION 12/16/2022 [facility] DATE CREATED AUTHOR AUTHOR'S ORGANIZ ATION 09/12/2023 [facility] EPIC Reason for Visit (unrecogniz [...] BE BASED ON THE PRIMARY CLINICAL RECORDS. [facility] [employer] [facility]. provides no warranty or guarantee of the accuracy or completeness of information in this document.
[2024-05-14 10:57] LABS: Basophils Percent Auto 0.3 % (0.2-2.0); Eosinophils Absolute Auto 0.2 10^3/uL (0.0-0.7); Eosinophils Percent Auto 3.2 % (0.9-7.0); Hematocrit 36.2 % (36.0-48.0); Hemoglobin 12.4 g/dL (12.0-16.0); Immature Granulocytes Abs Auto 0.02 10^3/uL (0.00-0.03); Immature Granulocytes Pct Auto 0.3 % (0.0-0.5); Lymphocytes Absolute Auto 1.3 10^3/uL (1.2-3.8); Lymphocytes Percent Auto 22.7 % (20.5-60.0); Mean Corpuscular HGB Conc 34.3 g/dL (29.9-35.2); Mean Corpuscular Hemoglobin 30.1 pg (26.7-34.0); Mean Corpuscular Volume 87.9 fL (81.0-99.0); Mean Platelet Volume 9.7 fL (9.5-13.5); Monocytes Absolute Auto 0.7 10^3/uL (0.3-0.8); Monocytes Percent Auto 12.1 % (1.7-12.0); Neutrophils Absolute Auto 3.6 10^3/uL (1.4-6.5); Neutrophils Percent Auto 61.4 % (43.0-75.0); Platelet Count 263 10^3/uL (150-450); Red Blood Count 4.12 10^6/uL (4.20-5.40); Red Cell Distribution Width 12.8 % (11.0-15.0); White Blood Count 5.9 10^3/uL (4.0-11.0)
[2024-05-14 11:26] LABS: Estimated Average Glucose 91 mg/dL; Glycohemoglobin A1C 4.8 % (4.5-6.2)
[2024-05-14 12:01] LABS: HCG Quantitative 111272 mIU/mL
[2024-05-14 14:38] LABS: Alanine Aminotransferase 12 U/L (14-59); Albumin Globulin Ratio 1.1; Albumin Level 3.9 g/dL (3.4-5.0); Alkaline Phosphatase 51 U/L (46-116); Anion Gap 12.4; Aspartate Amino Transferase 10 U/L (15-37); BUN Creatinine Ratio 8.6; Calcium 9.1 mg/dL (8.5-10.1); Carbon Dioxide 28.4 mmol/L (21.0-32.0); Chloride 102 mmol/L (98-107); Chol HDL Ratio 3.2; Cholesterol 143 mg/dL (<=200); Estimated GFR (African America >60 (>=60 mL/min/1.73m^2); Estimated GFR (Non-African Ame >60 (>=60 mL/min/1.73m^2); Free T3 2.51 pg/mL (2.18-3.98); Globulin 3.6 g/dL; Glucose 88 mg/dL (74-106); HDL Cholesterol 45 mg/dL (40-60); LDL Cholesterol Calculated 90.8 mg/dL; Potassium 3.8 mmol/L (3.5-5.1); Sodium 139 mmol/L (136-145); Thyroid Stimulating Hormone 9.326 uIU/mL (0.358-3.740); Total Protein 7.5 g/dL (6.4-8.2); Triglycerides 36 mg/dL (<=150); Troponin I High Sensitivity <4.0 pg/mL (4.0-51.3); VLDL CHOLESTEROL 7.2 mg/dL
[2024-05-15 09:07] LABS: Insulin 4.4 uIU/mL (2.6-24.9)
[2024-05-15 22:50] LABS: Bilirubin Total 0.6 mg/dL (0.2-1.0)
== END 2024-05-14 10:27 | disposition home or self-care (01) ==
LOC: LAB 10:29
PROVIDERS: PCP Family Medicine; Visit Provider Family Medicine
DX: Z00.00 Encounter for general adult medical examination without abnormal findings (principal); R00.2 Palpitations; R55 Syncope and collapse
CPT/HCPCS: 36415; 80053; 80061; 82306; 83036; 83525; 83540; 83880; 84436; 84443; 84481; 84484; 84702; 85025

== ENCOUNTER 2024-05-27 11:40 | Outpatient (OUT) | payer OTHER, SELFPAY ==
--- OUTSIDE RECORDS SUMMARY | 2024-05-27 11:59 | XMS_ITS | CCD ---
Author Organization [facility] Care Team Providers Care Awning Erector Name Role Phone VENKAT, DR HERNANDEZ Admitting [...] Admitting Unavailable VENKAT, DR HERNANDEZ Attending Unavailable AKRMA, DR LIZABETH Kauffman Primary Care Unavail able [...] [LATEX] Drug allergy (disorder) 6 [facility] (2 sources) Leucine; Translations: [NICKEL] Drug Allergy 7 [facility] (2 sources) Penicillins; Translations: [PENICILLINS] Drug allergy (disorder) 7 [facility] (1 source) Shellfish Drug allergy (disorder) 7 [facility] (2 sources) Iodine; Translations: [IODINE] Drug Allergy 3 [facility] Repository (1 source) SHELLFISH CONTAINING PRODUCTS; Translations: [SHELLFISH CONTAINING PRODUCTS] Propensity to adverse reactions to drug (disorder) 3 [facility] Repository (1 source) VENOM-HONEY BEE; Translations: [VENOM-HONEY BEE] Propensity to adverse reactions to drug (disorder) 3 [facility] (1 source) Amoxicillin Drug Allergy 3 Unknown [facility] (1 source) Bee pollen Allergy to substance 3 [facility] (1 source) Honey bee venom Propensity to adverse reactions 3 [facility] (1 source) Latex Allergy to substance 3 [facility] (1 source) nickel sulfate Drug Allergy 3 [facility] (1 source) Penicillin G Drug Allergy 3 Unknown [facility] (1 source) Shellfish-Derive d Products Drug Allergy 3 Unknown [facility] (1 source) Penicillins Propensity to adverse reactions 4 [facility] (1 source) Shellfish Allergy to substance 4 Hives [facility] Medications Current Medications Medication Drug Class(es) Dates Sig (Normalized) Sig (Original) [id number] 200 actuat albuterol 0.09 mg/actuat metered dose [...] 1.0 0.2 - 12 mg/dL [facility] HCG, Urineon 11-19-2022 Beta HCG ( test) Ql (U) Negative Normal [facility] Comment on above: Order Comment: The c alculated GFR uses the (IDMS)-traceable creatinine MDRD equation and is reported in mL/min/1.73 square meters. This formula is not recommended for use with individuals with unstable creatinine concentrations, extremes in muscle mass and/or body size, or alternative diets and may not be suitable for all patient populations. Testing performed at [facility], [address] [place] [address] [phone] Result Comment: Note : This test provides only a presumptive diagnosis for . If the HCG result is inconsistent with clinical evidence, results should be confirmed with an alternative method, such as a quantitative HCG. Basic Metabolic Profileon ANIO 11 mmol/L Low 12-20 [facility] Comment on above: Order Comment: Testi ng performed at [facility], [address] [place] [address] 49218 Calcium [Mass/Vol] 9.5 mg/dL Normal 8.4-10.2 [facility] Comment on above: Order Comment: Testi ng performed at [facility], [address] [place] [address] 60468 Chloride [Moles/Vol] 107 mmol/L Normal 98-107 [facility] Comment on above: Order Comment: Testi ng performed at [facility], [address] [place] [address] 83684 CO2 [Moles/Vol] 23.0 mmol/L Normal 22.0-30.0 [facility] Comment on above: Order Comment: Testi ng performed at [facility], [address] [place] [address] 62808 Creatinine [Mass/Vol] 0.7 mg/dL Normal 0.6-1.2 [facility] Comment on above: Order Comment: Testi ng performed at [facility], [address] [place] [address] 79847 Glucose [Mass/Vol] 118 mg/dL High 74-106 [facility] Comment on above: Order Comment: Testi ng performed at [facility], [address] [place] [address] 11072 Potassium [Moles/Vol] 4.1 mmol/L Normal 3.3-4.9 [facility] Comment on above: Order Comment: Testi ng performed at [facility], [address] [place] [address] 15980 Sodium [Moles/Vol] 137 mmol/L Normal 137-145 [facility] Comment on above: Order Comment: Testi ng performed at [facility], [address] [place] [address] 06560 Urea nitrogen [Mass/Vol] 14 mg/dL Normal 8-19 [facility] Comment on above: Order Comment: Testi ng performed at [facility], [address] [place] [address] 39199 CBC w/Auto Diffon 08-19-2022 Basophils (Bld) [#/Vol] 0.04 10*3/uL Normal 0.00-0.10 [facility] Comment on above: Order Comment: Immature [...] is no longer indicated. Testing performed at [facility], [address] [place] [address] 35910 Eosinophils (Bld) [#/Vol] 0.05 10*3/uL Normal 0.00-0.40 [facility] Comment on above: Order Comment: Immature [...] is no longer indicated. Testing performed at [facility], [address] [place] [address] 04441 Erythrocyte distribution width (RBC) [Ratio] 13.3 % Normal 11.7-14.4 [facility] Comment on above: Order Comment: Immature [...] is no longer indicated. Testing performed at [facility], [address] [place] [address] 19033 Hematocrit (Bld) [Volume fraction] 36.1 % Normal 34.1-44.9 [facility] Comment on above: Order Comment: Immature [...] is no longer indicated. Testing performed at [facility], [address] [place] [address] 81613 Hemoglobin (Bld) [Mass/Vol] 12.0 g/dL Normal 11.2-15.7 [facility] Comment on above: Order Comment: Immature [...] is no longer indicated. Testing performed at [facility], [address] [place], [place] [id number] IG % (B) 0.6 % High 0.0-0.4 [facility] Comment on above: Order Comment: Immature [...] is no longer indicated. Testing performed at [facility], [address] [place] [address] 47968 IG# (B) 0.14 10*3/uL High 0.00-0.00 [facility] Comment on above: Order Comment: Immature [...] is no longer indicated. Testing performed at [facility], [address] [place] [address] 55270 Lymphocytes (Bld) [#/Vol] 0.81 10*3/uL Low 1.20-3.70 [facility] Comment on above: Order Comment: Immature [...] is no longer indicated. Testing performed at [facility], [address] [place] [address] 93375 MCH (RBC) [Entitic mass] 28.5 pg Normal 25.6-32.2 [facility] Comment on above: Order Comment: Immature [...] is no longer indicated. Testing performed at [facility], [address] [place] [address] 28826 MCHC (RBC) [Mass/Vol] 33.2 g/dL Normal 32.2-35.5 [facility] Comment on above: Order Comment: Immature [...] is no longer indicated. Testing performed at [facility], [address] [place] [address] 44386 MCV (RBC) [Entitic vol] 85.7 fL Normal 79.4-94.8 [facility] Comment on above: Order Comment: Immature [...] is no longer indicated. Testing performed at [facility], [address] [place] [address] 69554 Monocytes (Bld) [#/Vol] 1.81 10*3/uL High 0.20-0.90 [facility] Comment on above: Order Comment: Immature [...] is no longer indicated. Testing performed at [facility], [address] [place] [address] 93500 Neutrophils (Bld) [#/Vol] 20.04 10*3/uL High 1.60-6.10 [facility] Comment on above: Order Comment: Immature [...] is no longer indicated. Testing performed at [facility], [address] [place] [address] 66215 NRBC % (B) 0.0 /100{WBC} Normal 0.0-0.2 [facility] Comment on above: Order Comment: Immature [...] is no longer indicated. Testing performed at [facility], [address] [place] [address] 21136 NRBC# (B) 0.00 10*3/uL Normal 0.00-0.00 [facility] Comment on above: Order Comment: Immature [...] is no longer indicated. Testing performed at [facility], [address] [place] [address] 76563 Platelet mean volume (Bld) [Entitic vol] 9.9 fL Normal 9.4-12.3 [facility] Comment on above: Order Comment: Immature [...] is no longer indicated. Testing performed at [facility], [address] [place] [address] 11525 Platelets (Bld) [#/Vol] 267 10*3/uL Normal 182-369 [facility] Comment on above: Order Comment: Immature [...] is no longer indicated. Testing performed at [facility], [address] [place] [address] 15383 RBC (Bld) [#/Vol] 4.21 10*6/uL Normal 3.93-5.22 [facility] Comment on above: Order [...] is no longer indicated. Testing performed at [facility], [address] [place] [address] 67152 RDW-SD (B) 41.1 fL Normal 36.4-46.3 [facility] Comment on above: Order Comment: Immature [...] is no longer indicated. Testing performed at [facility], [address] [place] [address] 31786 WBC (Bld) [#/Vol] 22.9 10*3/uL High 4.0-10.0 [facility] Comment on above: Order [...] is no longer indicated. Testing performed at [facility], [address] [place] [address] NECK WITHOUT CONTRASTon 0 08-19-2022 CT [...] Salinas MD On: 08/19/2022 1:25 PM Normal [facility] EST Glomerular Filtration Ra jude 08-19-2022 EAGFR (B) >60 Normal >60 [facility] Comment on above: Order Comment: The c alculated GFR uses the (IDMS)-traceable creatinine MDRD equation and is reported in mL/min/1.73 square meters. This formula is not recommended for use with individuals with unstable creatinine concentrations, extremes in muscle mass and/or body size, or alternative diets and may not be suitable for all patient populations. [facility], [address] [place] [address] Result Comment: The reported eGFR is based on a non- patient, for Americans multiply the result by 1.212. HCG, Serumon 08-19-2022 HCGS Negative Normal [facility] Comment on above: Order Comment: Testi ng performed at [facility], [address] [place] [address] 29694 Result Comment: Note : This test provides only a presumptive diagnosis for . If the HCG result is inconsistent with clinical evidence, results should be confirmed with an alternative method, such as a quantitative HCG. Man Diffon 08-19-2022 Eos, Diff 2 % Normal 0-6 [facility] Comment on above: Order Comment: Testi ng performed at [facility], [address] [place] [address] 99702 Lymphocytes/100 WBC (Bld) 3 % Low 20-53 [facility] Comment on above: Order Comment: Testi ng performed at [facility], [address] [place] [address] 79834 [place], Diff 6 % Normal 5-12 [facility] Comment on above: Order Comment: Testi ng performed at [facility], [address] [place] [address] 52313 Segs. Diff 89 % High 34-70 [facility] Comment on above: Order Comment: Testi ng performed at [facility], [address] [place] [address] Slide Scan Normal Normal Normal [facility] Comment on above: Order Comment: Testi ng performed at [facility], [address] [place] [place] [address] Basic Metabolic Profileon ANIO 12 mmol/L Normal 12-20 [facility] Comment on above: Order Comment: Testi ng performed at [facility], [address] [place] [address] Calcium [Mass/Vol] 9.1 mg/dL Normal 8.4-10.2 [facility] Comment on above: Order Comment: Testi ng performed at [facility], [address] [place] [address] Chloride [Moles/Vol] 106 mmol/L Normal 98-107 [facility] Comment on above: Order Comment: Testi ng performed at [facility], [facility] [address] [place] [address] CO2 [Moles/Vol] 27.0 mmol/L Normal 22.0-30.0 [facility] Comment on above: Order Comment: Testi ng performed at [facility], [address] [place] [address] Creatinine [Mass/Vol] 0.6 mg/dL Normal 0.6-1.2 [facility] Comment on above: Order Comment: Testi ng performed at [facility], [address] [place] [address] Glucose [Mass/Vol] 95 mg/dL Normal 74-106 [facility] Comment on above: Order Comment: Testi ng performed at [facility], [address] [place] [address] Potassium [Moles/Vol] 4.1 mmol/L Normal 3.3-4.9 [facility] Comment on above: Order Comment: Testi ng performed at [facility], [address] [place] [address] Sodium [Moles/Vol] 141 mmol/L Normal 137-145 [facility] Comment on above: Order Comment: Testi ng performed at [facility], [address] [place] [address] 27073 Urea nitrogen [Mass/Vol] 9 mg/dL Normal 8-19 [facility] Comment on above: Order Comment: Testi ng performed at [facility], [address] [place] [address] 26436 CBC w/Auto Diffon 08-08-2022 Basophils (Bld) [#/Vol] 0.04 10*3/uL Normal 0.00-0.10 [facility] Comment on above: Order Comment: Immature [...] is no longer indicated. Testing performed at [facility], [address] [place] [address] 38984 Basophils/100 WBC (Bld) 0.4 % Normal 0.1-1.2 [facility] Comment on above: Order Comment: Immature [...] is no longer indicated. Testing performed at [facility], [address] [place] [address] 55987 Eosinophils (Bld) [#/Vol] 0.21 10*3/uL Normal 0.00-0.40 [facility] Comment on above: Order Comment: Immature [...] is no longer indicated. [facility], [address] [place] [address] 96734 Eosinophils/100 WBC (Bld) 2.1 % Normal 0.7-5.8 [facility] Comment on above: Order Comment: Immature [...] is no longer indicated. Testing performed at [facility], [address] [place] [address] 01897 Erythrocyte distribution width (RBC) [Ratio] 12.9 % Normal 11.7-14.4 [facility] Comment on above: Order Comment: Immature [...] is no longer indicated. Testing performed at [facility], [address] [place] [address] 83186 Hematocrit (Bld) [Volume fraction] 35.4 % Normal 34.1-44.9 [facility] Comment on above: Order Comment: Immature [...] is no longer indicated. Testing performed at [facility], [address] [place] [address] 17237 Hemoglobin (Bld) [Mass/Vol] 11.2 g/dL Normal 11.2-15.7 [facility] Comment on above: Order Comment: Immature [...] is no longer indicated. Testing performed at [facility], [address] [place] [address] 18893 IG % (B) 0.4 % Normal 0.0-0.4 [facility] Comment on above: Order Comment: Immature [...] is no longer indicated. Testing performed at [facility], [address] [place] [address] 96376 IG# (B) 0.04 10*3/uL High 0.00-0.00 [facility] Comment on above: Order Comment: Immature [...] is no longer indicated. Testing performed at [facility], [address] [place] [address] 90569 Lymphocytes (Bld) [#/Vol] 1.60 10*3/uL Normal 1.20-3.70 [facility] Comment on above: Order Comment: Immature [...] is no longer indicated. Testing performed at [facility], [address] [place] [address] 88073 Lymphocytes/100 WBC (Bld) 16.3 % Low 19.3-51.7 [facility] Comment on above: Order Comment: Immature [...] is no longer indicated. Testing performed at [facility], [address] [place] [address] 21831 MCH (RBC) [Entitic mass] 27.7 pg Normal 25.6-32.2 [facility] Comment on above: Order Comment: Immature [...] is no longer indicated. Testing performed at [facility], [address] [place] [address] 64771 MCHC (RBC) [Mass/Vol] 31.6 g/dL Low 32.2-35.5 [facility] Comment on above: Order Comment: Immature [...] is no longer indicated. Testing performed at [facility], [address] [place] [address] 26060 MCV (RBC) [Entitic vol] 87.4 fL Normal 79.4-94.8 [facility] Comment on above: Order Comment: Immature [...] is no longer indicated. Testing performed at [facility], [address] [place] [address] 56800 Monocytes (Bld) [#/Vol] 0.88 10*3/uL Normal 0.20-0.90 [facility] Comment on above: Order Comment: Immature [...] is no longer indicated. Testing performed at [facility], [address] [place] [address] 22745 Monocytes/100 WBC (Bld) 8.9 % Normal 4.7-12.5 [facility] Comment on above: Order Comment: Immature [...] is no longer indicated. Testing performed at [facility], [address] [place] [address] 94280 Neutrophils (Bld) [#/Vol] 7.07 10*3/uL High 1.60-6.10 [facility] Comment on above: Order Comment: Immature [...] is no longer indicated. Testing performed at [facility], [address] [place] [address] 01626 Neutrophils/100 WBC (Bld) 71.9 % High 34.0-71.1 [facility] Comment on above: Order Comment: Immature [...] is no longer indicated. Testing performed at [facility], [address] [place] [address] 07918 NRBC % (B) 0.0 /100{WBC} Normal 0.0-0.2 [facility] Comment on above: Order Comment: Immature [...] is no longer indicated. Testing performed at [facility], [address] [place] [address] 14407 NRBC# (B) 0.00 10*3/uL Normal 0.00-0.00 [facility] Comment on above: Order Comment: Immature [...] is no longer indicated. Testing performed at [facility], [address] [place] [address] 08270 Platelet mean volume (Bld) [Entitic vol] 9.2 fL Low 9.4-12.3 [facility] Comment on above: Order Comment: Immature [...] is no longer indicated. Testing performed at [facility], [address] [place] [address] 12769 Platelets (Bld) [#/Vol] 315 10*3/uL Normal 182-369 [facility] Comment on above: Order Comment: Immature [...] is no longer indicated. Testing performed at [facility], [address] [place] [address] 60199 RBC (Bld) [#/Vol] 4.05 10*6/uL Normal 3.93-5.22 [facility] Comment on above: Order [...] is no longer indicated. Testing performed at [facility], [address] [place] [address] 24631 RDW-SD (B) 41.0 fL Normal 36.4-46.3 [facility] Comment on above: Order Comment: Immature [...] is no longer indicated. Testing performed at [facility], [address] [place] [address] 07348 WBC (Bld) [#/Vol] 9.8 10*3/uL Normal 4.0-10.0 [facility] Comment on above: Order Comment: Immature Gran [...] is no longer indicated. Testing performed at [facility], [address] [place] [address] NECK WITHOUT CONTRASTon 0 08-08-2022 CT [...] Schultz MD On: 08/08/2022 4:07 PM Normal [facility] EST Glomerular Filtration Ra jude 08-08-2022 EAGFR (B) >60 Normal >60 [facility] Comment on above: Order Comment: The c alculated GFR uses the (IDMS)-traceable creatinine MDRD equation and is reported in mL/min/1.73 square meters. This formula is not recommended for use with individuals with unstable creatinine concentrations, extremes in muscle mass and/or body size, or alternative diets and may not be suitable for all patient populations. Testing performed at [facility], [address] [place], [place] [id number] Result Comment: The reported eGFR is based on a non- patient, for Americans multiply the result by 1.212. Pap IG, rfx Aptima HPV, rfx 16/18,45on 06-11-2022 . . Normal [facility] Comment on above: Result Comment: Perf ormed at: WB Performed By: #### P APHR2A #### [facility] [address] [place] [address] Dr. [place] Strong DIAGNOSIS: Comment Normal [facility] Comment on above: Result Comment: NEGA TIVE FOR INTRAEPITHELIAL LESION OR MALIGNANCY. Performed at: WB Performed By: #### P APHR2A #### [facility] [address] [place] [address] Dr. [place] Strong HPV Aptima Negative Normal Negative [facility] Comment on above: Result Comment: This nucleic acid amplification test detects fourteen high-risk HPV types (16,18,31,33,35,39,45,51,52,56,58,59,66,68) without differentiation. Performed at: =G Performed By: #### P APHR2A #### [facility] [address] [place] [address] Dr. Jose [facility] Strong HPV Genotype Reflex Comment Normal [facility] Comment on above: Result Comment: Crit eria not met, HPV Genotype not performed. Performed at: WB Performed By: #### P APHR2A #### [facility] [address] [place] [address] Dr. [place] Strong Methodology: Comment Normal [facility] Comment on above: Result Comment: This liquid based ThinPrep(R) pap test was screened with the use of an image guided system. Performed at: WB Performed By: #### P APHR2A #### [facility] [address] [place] [address] Dr. Jose [place] Strong Note: Comment Normal [facility] Comment on above: Result Comment: [...] Performed By: #### P APHR2A #### [facility] [address] [place] [address] Dr. Jose [facility]as Strong Performed by: Comment Normal [facility] Comment on above: Result Comment: Koffi Hutchinson, Motorboat Mechanic Inboard (ASCP) Performed at: WB Performed By: #### P APHR2A #### [facility] [address] [place] [address] Dr. [place] Strong Specimen adequacy: Comment Normal [facility] Comment on above: Result Comment: Sati sfactory for evaluation. Endocervical and/or squamous metaplastic cells (endocervical component) are present. Performed at: WB Performed By: #### P [id number] #### [facility] [address] [place] [address] Dr. Jose Elias Strong PAP ACOG PANEL 2: 21 to 29on 11-20-2021 . . Normal [facility] Comment on above: Performed By: #### [id number] #### [facility] [address] [place] [address] Dr. Jose Elias Strong Age Gdln ACOG Testing - [facility] Comment on above: Performed By: #### [id number] #### [facility] [address] [place] [address] Dr. Jose Elias Strong DIAGNOSIS: Comment [facility] Comment on above: Result Comment: NEGA TIVE FOR INTRAEPITHELIAL LESION OR MALIGNANCY. REACTIVE CELLULAR CHANGES AND/OR REPAIR ARE PRESENT. Performed By: #### [id number] #### [facility] [address] [place] [address] Dr. Jose Elias Strong Electronically signed by: Comment [facility] Comment on above: Result Comment: Melinda Patel MD, Pathologist Performed By: #### [id number] #### [facility] [address] [place] [address] Dr. Jose Elias Strong Methodology: Comment [facility] Comment on above: Result Comment: This liquid based ThinPrep(R) pap test was screened with the use of an image guided system. Performed By: #### [id number] #### [facility] [address] [place] [address] Dr. Jose Elias Srtong Note: Comment Normal [facility] Comment on above: Result Comment: The Pap smear is a screening test designed to aid in the detection of premalignant and malignant conditions of the uterine cervix. It is not a diagnostic procedure and should not be used as the sole means of detecting cervical cancer. Both false-positive and false-negative reports do occur. . Performed By: #### [id number] #### [facility] [address] [place] [address] Dr. Jose Elias Strong Performed by: Comment Normal [facility] Comment on above: Result Comment: Lilian Romero Motorboat Mechanic Inboard (ASCP) Performed By: #### [id number] #### [facility] [address] [place] [address] Dr. Jose Elias Strong Reflex Criteria: Comment Normal [facility] Comment on above: Result Comment: The HPV DNA reflex criteria were not met with this specimen result therefore, no HPV testing was performed. . Performed By: #### [id number] #### [facility] [address] [place] [address] Dr. Jose Elias Strong Specimen adequacy: Comment Normal [facility] Comment on above: Result Comment: Sati sfactory for evaluation. Endocervical and/or squamous metaplastic cells (endocervical component) are present. Performed By: #### [id number] #### [facility] [address] [place] [address] Dr. Jose Elias Strong CBC W MANUAL DIFFon 08-21-19 22 ANISOCYTOSIS 1+ Normal [facility] Comment on above: Performed By: #### T NS #### [facility] [address] [place] [address] Dr. Jose Elias Strong ATYPICAL LYMPH # Normal [facility] Comment on above: Performed By: #### T NS #### [facility] [address] [place] [address] Dr. Jose Elias Strong ATYPICAL LYMPH % Normal [facility] Comment on above: Performed By: #### T NS #### [facility] [address] [place] [address] Dr. Jose Elias Strong BAND # 0.2 103/ul Normal 0.0-0.3 [facility] Comment on above: Performed By: #### T NS #### [facility] [address] [place] [address] Dr. Jose Elias Strong BAND % 1 % Normal 0-5 [facility] Comment on above: Performed By: #### T NS #### [facility] [address] [place] [address] Dr. Jose Elias Strong BASOM # 0.00 103/ul Normal 0.00-0.10 [facility] Comment on above: Performed By: #### T NS #### [facility] [address] [place] [address] Dr. Jose Elias Strong BASOM % 0.0 % Critically low 0.2-2.0 [facility] Comment on above: Performed By: #### T NS #### [facility] [address] [place] [address] Dr. Jose Elias Strong BLAST # Normal [facility] Comment on above: Performed By: #### T NS #### [facility] [address] [place] [address] Dr. Jose Elias Strong BLAST % Normal [facility] Comment on above: Performed By: #### T NS #### [facility] [address] [place] [address] Dr. Jose Elias Strong CORRECTED WBC Normal 4.0-11.0 [facility] Comment on above: Performed By: #### T NS #### [facility] [address] [place] [address] Dr. Jose Elias Strong EOS # 0.00 103/ul Normal 0.00-0.70 [facility] Comment on above: Performed By: #### T NS #### [facility] [address] [place] [address] Dr. Jose Elias Strong EOS% 0.0 % Critically low 0.9-7.0 [facility] Comment on above: Performed By: #### T NS #### [facility] [address] [address] [address] Jose Elias Strong HCT 27.5 % Critically low 36.0-48.0 [facility] Comment on above: Performed By: #### T NS #### [facility] [address] [address] [address] Jose Elias Strong HGB 8.1 g/dl Critically low 12.0-16.0 [facility] Comment on above: Performed By: #### T NS #### [facility] [address] [address] [address] Jose Elias Strong LYMPHM # 1.62 103/ul Normal 1.20-3.80 [facility] Comment on above: Performed By: #### T NS #### [facility] [address] [place] [address] Dr. Jose Elias Strong LYMPHM% 9.0 % Critically low 20.5-60.0 [facility] Comment on above: Performed By: #### T NS #### [facility] [address] [place] [address] Dr. Jose Elias Strong MCH 22.2 pg Critically low 26.7-34.0 [facility] Comment on above: Performed By: #### T NS #### [facility] [address] [place] [address] Dr. Jose Elias Strong MCHC 29.5 g/dl Critically low 29.9-35.2 [facility] Comment on above: Performed By: #### T NS #### [facility] [address] [place] [address] Dr. Jose Elias Strong MCV 75.3 fL Critically low 81.0-99.0 [facility] Comment on above: Performed By: #### T NS #### [facility] [address] [place] [address] Dr. Jose Elias Strong METAMYELOCYTE # Normal [facility] Comment on above: Performed By: #### T NS #### [facility] [address] [place] [address] Dr. Jose Elias Strong METAMYELOCYTE % Normal [facility] Comment on above: Performed By: #### T NS #### [facility] [address] [address] [address] Jose Elias Strong MONOM# 1.62 103/ul Critically high 0.30-0.80 [facility] Comment on above: Performed By: #### T NS #### [facility] [address] [address] [address] Jose Elias Strong MONOM% 9.0 % Normal 1.7-12.0 [facility] Comment on above: Performed By: #### T NS #### [facility] [address] [place] [address] Dr. Jose Elias Strong MPV 9.6 fL Normal 9.5-13.5 [facility] Comment on above: Performed By: #### T NS #### [facility] [address] [place] [address] Dr. Jose Elias Strong MYELOCYTE # Normal [facility] Comment on above: Performed By: #### T NS #### [facility] [address] [place] [address] Dr. Jose Elias Strong MYELOCYTE % Normal [facility] Comment on above: Performed By: #### T NS #### [facility] [address] [place] [address] Dr. Jose Elias Strong NRBC Normal [facility] Comment on above: Performed By: #### T NS #### [facility] [address] [place] [address] Dr. Jose Elias Strong PLT 308 103/ul Normal 150-450 [facility] Comment on above: Performed By: #### T NS #### [facility] [address] [place] [address] Dr. Jose Elias Strong RBC 3.65 106/ul Critically low 4.20-5.40 [facility] Comment on above: Performed By: #### T NS #### [facility] [address] [place] [address] Dr. Jose Elias Strong RDW 15.7 % Critically high 11.0-15.0 [facility] Comment on above: Performed By: #### T NS #### [facility] [address] [address] [address] Jose Elias Strong SEG # 14.58 103/ul Critically high 1.40-6.50 [facility] Comment on above: Performed By: #### T NS #### [facility] [address] [place] [address] Dr. Jose Elias Strong SEG % 81.0 % Critically high 43.0-75.0 [facility] Comment on above: Performed By: #### T NS #### [facility] [address] [place] [address] Dr. Jose Elias Strong WBC 18.0 103/ul Critically high 4.0-11.0 [facility] Comment on above: Performed By: #### T NS #### [facility] [address] [place] [address] Dr. Jose Elias Strong DRUG SCREEN RAPID (URINE)on 08-20-2021 AMP Negative Normal NEGATIVE [facility] Comment on above: Performed By: #### T NS #### [facility] [address] [place] [address] Dr. Jose Elias Strong BAR Negative Normal NEGATIVE [facility] Comment on above: Performed By: #### T NS #### [facility] [address] [place] [address] Dr. Jose Elias Strong BUP Negative Normal NEGATIVE [facility] Comment on above: Performed By: #### T NS #### [facility] [address] [place] [address] Dr. Jose Elias Strong BZO Negative Normal NEGATIVE [facility] Comment on above: Performed By: #### T NS #### [facility] [address] [place] [address] Dr. Jose Elias Strong PAXTON Negative Normal NEGATIVE [facility] Comment on above: Performed By: #### T NS #### [facility] [address] [place] [address] Dr. Jose Elias Strong CUT-OFFS SEE BELOW Normal [facility] Comment on above: Result Comment: [...] Performed By: #### T NS #### [facility] [address] [place] [address] Dr. Jose Elias Strong DRUG CUT HEADER DRUG CLASS TEST SYSTEM CUT-OFF CONCENTRATIONS ARE FOLLOWS: Normal [facility] Comment on above: Performed By: #### T NS #### [facility] [address] [place] [address] Dr. Jose Elias Strong mAMP Negative Normal NEGATIVE [facility] Comment on above: Performed By: #### T NS #### [facility] [address] [place] [address] Dr. Jose Elias Strong MTD Negative Normal NEGATIVE [facility] Comment on above: Performed By: #### T NS #### [facility] [address] [place] [address] Dr. Jose Elias Strong OPI Negative Normal NEGATIVE [facility] Comment on above: Performed By: #### T NS #### [facility] [address] [place] [address] Dr. Jose Elias Strong OXY Negative Normal NEGATIVE [facility] Comment on above: Performed By: #### T NS #### [facility] [address] [place] [address] Dr. Jose Elias Strong PCP Negative Normal NEGATIVE [facility] Comment on above: Performed By: #### T NS #### [facility] [address] [place] [address] Dr. Jose Elias Strong PPX Negative Normal NEGATIVE [facility] Comment on above: Performed By: #### T NS #### [facility] [address] [place] [address] Dr. Jose Elias Strong TCA Negative Normal NEGATIVE [facility] Comment on above: Performed By: #### T NS #### [facility] [address] [place] [address] Dr. Jose Elias Strong THC Negative Normal NEGATIVE [facility] Comment on above: Performed By: #### T NS #### [facility] [address] [place] [address] Dr. Jose Elias Strong UA (CLEAN/CATCH) INTERMEDIATE FRAME TENDER/MICRO I F IND.on 08-20-2021 Bilirubin Ql (U) Negative Normal NEGATIVE [facility] Comment on above: Performed By: #### U MICRO, UACSIND #### [facility] [address] [place] [address] Dr. Jose Elias Strong Clarity (U) SL CLOUDY Abnormal CLEAR [facility] Comment on above: Performed By: #### U MICRO, UACSIND #### [facility] [address] [place] [address] Dr. Jose Elias Strong Color (U) RED Abnormal YELLOW [facility] Comment on above: Performed By: #### U MICRO, UACSIND #### [facility] [address] [place] [address] Dr. Jose Elias Strong Glucose Ql (U) Negative Normal NEGATIVE [facility] Comment on above: Performed By: #### U MICRO, UACSIND #### [facility] [address] [place] [address] Dr. Jose Elias Strong Hemoglobin Ql (U) LARGE Abnormal NEGATIVE [facility] Comment on above: Performed By: #### U MICRO, UACSIND #### [facility] [address] [place] [address] Dr. Jose Elias Strong Ketones Ql (U) 15 mg/dl Abnormal NEGATIVE [facility] Comment on above: Performed By: #### U MICRO, UACSIND #### [facility] [address] [place] [address] Dr. Jose Elias Strong LEUKOCYTES TRACE Abnormal NEGATIVE [facility] Comment on above: Performed By: #### U MICRO, UACSIND #### [facility] [address] [place] [address] Dr. Jose Elias Strong Nitrite Ql (U) Negative Normal NEGATIVE [facility] Comment on above: Performed By: #### U MICRO, UACSIND #### [facility] [address] [address] [address] Jose Elias Strong pH (U) 7.0 [pH] Normal 5-9 [facility] Comment on above: Performed By: #### U MICRO, UACSIND #### [facility] [address] [address] [address] Jose Elias Strong SPEC GRAVITY 1.020 Normal 1.005-<=1.025 [facility] Comment on above: Performed By: #### U MICRO, UACSIND #### [facility] [address] [address] [address] Jose Elias Strong UA PROTEIN 30 mg/dl Abnormal NEGATIVE/ TRACE [facility] Comment on above: Performed By: #### U MICRO, UACSIND #### [facility] [address] [place] [address] Dr. Jose Elias Strong UR MICRO IND INDICATED Normal [facility] Comment on above: Performed By: #### U MICRO, UACSIND #### [facility] [address] [address] [address] Jose Elias Strong Urobilinogen Qn (U) 0.2 {Mago'U}/dL Normal 0.2 - 1. 0 [facility] Comment on above: Performed By: #### U MICRO, UACSIND #### [facility] [address] [address] [address] Jose Elias Strong URINE MICROSCOPIC ONLYon BACTERIA NONE SEEN Normal NONE SEEN [facility] Comment on above: Performed By: #### U MICRO, UACSIND #### [facility] [address] [address] [address] Jose Elias Strong Bacteria identified Cx Nom (U) NOT INDICATED Normal [facility] Comment on above: Performed By: #### U MICRO, UACSIND #### [facility] [address] [address] [address] Jose Elias Strong CAST NONE SEEN Normal NONE SEEN [facility] Comment on above: Performed By: #### U MICRO, UACSIND #### [facility] [address] [place] [address] Dr. Jose Elias Strong Crystals LM Nom (Urine sed) NONE SEEN Normal NONE SEEN [facility] Comment on above: Performed By: #### U MICRO, UACSIND #### [facility] [address] [place] [address] Dr. Jose Elias Strong Epithelial cells LM Ql (Urine sed) NONE SEEN Normal NONE SEEN /RARE [facility] Comment on above: Performed By: #### U MICRO, UACSIND #### [facility] [address] [place] [address] Dr. Jose Elias Strong MUCOUS NONE SEEN Normal NONE SEEN [facility] Comment on above: Performed By: #### U MICRO, UACSIND #### [facility] [address] [place] [address] Dr. Jose Elias Strong RBC (U) [#/Vol] /uL Abnormal 0-2 [facility] Comment on above: Performed By: #### U MICRO, UACSIND #### [facility] [address] [place] [address] Dr. Jose Elias Strong WBC 0-2 Abnormal NONE SEEN [facility] Comment on above: Performed By: #### U MICRO, UACSIND #### [facility] [address] [place] [address] Dr. Jose Elias Strong CBC AUTO DIFFon 08-19-2021 BASO # 0.0 103/ul Normal 0.0-0.1 [facility] Comment on above: Performed By: #### T NS #### [facility] [address] [place] [address] Dr. Jose Elias Strong Basophils/100 WBC (Bld) 0.2 % Normal 0.2-2.0 [facility] Comment on above: Performed By: #### T NS #### [facility] [address] [place] [address] Dr. Jose Elias Strong EO # 0.1 103/ul Normal 0.0-0.7 [facility] Comment on above: Performed By: #### T NS #### [facility] [address] [place] [address] Dr. Jose Elias Strong Eosinophils/100 WBC (Bld) 0.7 % Critically low 0.9-7.0 [facility] Comment on above: Performed By: #### T NS #### [facility] [address] [place] [address] Dr. Jose Elias Strong Erythrocyte distribution width (RBC) [Ratio] 15.9 % Critically high 11.0-15.0 [facility] Comment on above: Performed By: #### T NS #### [facility] [address] [place] [address] Dr. Jose Elias Strong Hematocrit (Bld) [Volume fraction] 32.4 % Critically low 36.0-48.0 [facility] Comment on above: Performed By: #### T NS #### [facility] [address] [place] [address] Dr. Jose Elias Strong Hemoglobin (Bld) [Mass/Vol] 9.7 g/dL Critically low 12.0-16.0 [facility] Comment on above: Performed By: #### T NS #### [facility] [address] [place] [address] Dr. Jose Elias Strong IG # 0.19 10e3/ul Critically high 0.00-0.03 [facility] Comment on above: Performed By: #### T NS #### [facility] [address] [place] [address] Dr. Jose Elias Strong IG % 1.4 % Critically high 0.0-0.5 [facility] Comment on above: Performed By: #### T NS #### [facility] [address] [place] [address] Dr. Jose Elias Strong LYMPH # 1.9 103/ul Normal 1.2-3.8 [facility] Comment on above: Performed By: #### T NS #### [facility] [address] [place] [address] Dr. Jose Elias Strong Lymphocytes/100 WBC (Bld) 14.4 % Critically low 20.5-60.0 [facility] Comment on above: Performed By: #### T NS #### [facility] [address] [place] [address] Dr. Jose Elias Strong MANUAL DIFF REQ NO Normal [facility] Comment on above: Performed By: #### T NS #### [facility] [address] [place] [address] Dr. Jose Elias Strong MCH (RBC) [Entitic mass] 22.3 pg Critically low 26.7-34.0 [facility] Comment on above: Performed By: #### T NS #### [facility] [address] [place] [address] Dr. Jose Elias Strong MCHC (RBC) [Mass/Vol] 29.9 g/dL Normal 29.9-35.2 [facility] Comment on above: Performed By: #### T NS #### [facility] [address] [place] [address] Dr. Jose Elias Strong MCV (RBC) [Entitic vol] 74.5 fL Critically low 81.0-99.0 [facility] Comment on above: Performed By: #### T NS #### [facility] [address] [place] [address] Dr. Jose Elias Strong MONO # 1.4 103/ul Critically high 0.3-0.8 [facility] Comment on above: Performed By: #### T NS #### [facility] [address] [place] [address] Dr. Jose Elias Strong Monocytes/100 WBC (Bld) 10.1 % Normal 1.7-12.0 [facility] Comment on above: Performed By: #### T NS #### [facility] [address] [place] [address] Dr. Jose Elias Strong NEUT # 9.8 103/ul Critically high 1.4-6.5 [facility] Comment on above: Performed By: #### T NS #### [facility] [address] [place] [address] Dr. Jose Elias Strong Neutrophils/100 WBC (Bld) 73.2 % Normal 43.0-75.0 [facility] Comment on above: Performed By: #### T NS #### [facility] [address] [place] [address] Dr. Jose Elias Strong Platelet mean volume (Bld) [Entitic vol] 10.0 fL Normal 9.5-13.5 [facility] Comment on above: Performed By: #### T NS #### [facility] [address] [place] [address] Dr. Jose Elias Strong PLT 337 103/ul Normal 150-450 [facility] Comment on above: Performed By: #### T NS #### [facility] [address] [place] [address] Dr. Jose Elias Strong RBC 4.35 106/ul Normal 4.20-5.40 [facility] Comment on above: Performed By: #### T NS #### [facility] [address] [place] [address] Dr. Jose Elias Strong WBC 13.4 103/ul Critically high 4.0-11.0 [facility] Comment on above: Performed By: #### T NS #### [facility] [address] [place] [address] Dr. Jose Elias Strong Covid-19 PCR ([facility])on 08-03 SARS-CoV-2 (COVID-19) RNA [place]+probe Ql (Unsp spec) Not detected Normal NOT DETECTED [facility] Comment on above: Result Comment: [...] for this test is supported by the [place] of Health and Human Service's declaration that [...] Performed By: #### C VDTBH #### [facility] [address] [address] [address] Jose Elias Strong TYPE AND SCREENon 08-19-2021 TYPE AND SCREEN Negative Normal [facility] Comment on above: Performed By: #### T NS #### [facility] [address] [place] [address] Dr. Jose Elias Strong GROUP B STREP CULTUREon 07-05 S. agalactiae Ag Ql (Unsp spec) Culture Observations: NEGATIVE FOR GROUP B STREPTOCOCCUS. Normal [facility] Comment on above: Performed By: #### G BSCX #### [facility] [address] [place] [address] Dr. Jose Elias Strong UA (CLEAN/CATCH) INTERMEDIATE FRAME TENDER/MICRO I F IND.on 06-28-2021 Bilirubin Ql (U) Negative Normal NEGATIVE [facility] Comment on above: Performed By: #### U ACSIND, UMICRO #### [facility] [address] [place] [address] Dr. Jose Elias Strong Clarity (U) CLEAR Normal CLEAR [facility] Comment on above: Performed By: #### U ACSIND, UMICRO #### [facility] [address] [address] [address] Jose Elias Strong Color (U) LT. YELLOW Normal YELLOW [facility] Comment on above: Performed By: #### U ACSIND, UMICRO #### [facility] [address] [place] [address] Dr. Jose Elias Strong Glucose Ql (U) Negative Normal NEGATIVE [facility] Comment on above: Performed By: #### U ACSIND, UMICRO #### [facility] [address] [place] [address] Dr. Jose Elias Strong Hemoglobin Ql (U) Negative Normal NEGATIVE [facility] Comment on above: Performed By: #### U ACSIND, UMICRO #### [facility] [address] [place] [address] Dr. Jose Elias Strong Ketones Ql (U) Negative Normal NEGATIVE [facility] Comment on above: Performed By: #### U ACSIND, UMICRO #### [facility] [address] [place] [address] Dr. Jose Elias Strong LEUKOCYTES TRACE Abnormal NEGATIVE [facility] Comment on above: Performed By: #### U ACSMICHAEL UMICRO #### [facility] [address] [address] [address] Jose Elias Strong Nitrite Ql (U) Negative Normal NEGATIVE [facility] Comment on above: Performed By: #### U ACSMICHAEL UMICRO #### [facility] [address] [address] [address] Jose Elias Strong pH (U) 6.5 [pH] Normal 5-9 [facility] Comment on above: Performed By: #### U RODOLFO MANCILLAICRO #### [facility] [address] [place] [address] Dr. Jose Elias Strong SPEC GRAVITY 1.015 Normal 1.005-<=1.025 [facility] Comment on above: Performed By: #### U LAURENT UMICRO #### [facility] [address] [place] [address] Dr. Jose Elias Strong UA PROTEIN Negative Normal NEGATIVE/ TRACE [facility] Comment on above: Performed By: #### U RODOLFO MANCILLAICRO #### [facility] [address] [place] [address] Dr. Jose Elias Strong UR MICRO IND INDICATED Normal [facility] Comment on above: Performed By: #### U LAURENT UMICRO #### [facility] [address] [place] [address] Dr. Jose Elias Strong Urobilinogen Qn (U) 0.2 {Mago'U}/dL Normal 0.2 - 1. 0 [facility] Comment on above: Performed By: #### U LAURENT UMICRO #### [facility] [address] [place] [address] Dr. Jose Elias Strong URINE MICROSCOPIC ONLYon AMORPHOUS CRYSTALS FEW Normal [facility] Comment on above: Performed By: #### U ACSMICHAEL UMICRO #### [facility] [address] [place] [address] Dr. Jose Elias Strong BACTERIA TRACE Abnormal NONE SEEN [facility] Comment on above: Performed By: #### U ACSIND, UMICRO #### [facility] [address] [place] [address] Dr. Jose Elias Strong Bacteria identified Cx Nom (U) NOT INDICATED Normal [facility] Comment on above: Performed By: #### U ACSIND, UMICRO #### [facility] [address] [place] [address] Dr. Jose Elias Strong CAST NONE SEEN Normal NONE SEEN [facility] Comment on above: Performed By: #### U ACSIND, UMICRO #### [facility] [address] [place] [address] Dr. Jose Elias Strong Crystals LM Nom (Urine sed) SEEN Abnormal NONE SEEN [facility] Comment on above: Performed By: #### U ACSIND, UMICRO #### [facility] [address] [place] [address] Dr. Jose Elias Strong Epithelial cells LM Ql (Urine sed) RARE Normal NONE SEEN /RARE [facility] Comment on above: Performed By: #### U ACSIND, UMICRO #### [facility] [address] [place] [address] Dr. Jose Elias Strong MUCOUS TRACE Abnormal NONE SEEN [facility] Comment on above: Performed By: #### U ACSIND, UMICRO #### [facility] [address] [place] [address] Dr. Jose Elias Strong RBC 0-2 Normal 0-2 [facility] Comment on above: Performed By: #### U ACSIND, UMICRO #### [facility] [address] [place] [address] Dr. Jose Elias Strong WBC 2-5 Abnormal NONE SEEN [facility] Comment on above: Performed By: #### U ACSIND, UMICRO #### [facility] [address] [place] [address] Dr. Jose Elias Strong CBC AUTO DIFFon 06-19-2021 BASO # 0.0 103/ul Normal 0.0-0.1 [facility] Comment on above: Performed By: #### C BC #### [facility] [address] [address] [address] Jose Elias Strong Basophils/100 WBC (Bld) 0.3 % Normal 0.2-2.0 [facility] Comment on above: Performed By: #### C BC #### [facility] [address] [address] [address] Jose Elias Strong EO # 0.2 103/ul Normal 0.0-0.7 [facility] Comment on above: Performed By: #### C BC #### [facility] [address] [address] [address] Jose Elias Strong Eosinophils/100 WBC (Bld) 2.0 % Normal 0.9-7.0 [facility] Comment on above: Performed By: #### C BC #### [facility] [address] [place] [address] Dr. Jose Elias Strong Erythrocyte distribution width (RBC) [Ratio] 13.6 % Normal 11.0-15.0 [facility] Comment on above: Performed By: #### C BC #### [facility] [address] [address] [address] Jose Elias Strong Hematocrit (Bld) [Volume fraction] 29.4 % Critically low 36.0-48.0 [facility] Comment on above: Performed By: #### C BC #### [facility] [address] [place] [address] Dr. Jose Elias Strong Hemoglobin (Bld) [Mass/Vol] 9.5 g/dL Critically low 12.0-16.0 [facility] Comment on above: Performed By: #### C BC #### [facility] [address] [address] [address] Jose Elias Strong IG # 0.14 10e3/ul Critically high 0.00-0.03 [facility] Comment on above: Performed By: #### C BC #### [facility] [address] [address] [address] Jose Elias Strong IG % 1.4 % Critically high 0.0-0.5 [facility] Comment on above: Performed By: #### C BC #### [facility] [address] [address] [address] Jose Elias Strong LYMPH # 1.6 103/ul Normal 1.2-3.8 [facility] Comment on above: Performed By: #### C BC #### [facility] [address] [address] [address] Jose Elias Strong Lymphocytes/100 WBC (Bld) 15.5 % Critically low 20.5-60.0 [facility] Comment on above: Performed By: #### C BC #### [facility] [address] [place] [address] Dr. Jose Elias Strong MANUAL DIFF REQ NO Normal [facility] Comment on above: Performed By: #### C BC #### [facility] [address] [place] [address] Dr. Jose Elias Strong MCH (RBC) [Entitic mass] 26.8 pg Normal 26.7-34.0 [facility] Comment on above: Performed By: #### C BC #### [facility] [address] [place] [address] Dr. Jose Elias Strong MCHC (RBC) [Mass/Vol] 32.3 g/dL Normal 29.9-35.2 [facility] Comment on above: Performed By: #### C BC #### [facility] [address] [place] [address] Dr. Jose Elias Strong MCV (RBC) [Entitic vol] 82.8 fL Normal 81.0-99.0 [facility] Comment on above: Performed By: #### C BC #### [facility] [address] [place] [address] Dr. Jose Elias Strong MONO # 1.2 103/ul Critically high 0.3-0.8 [facility] Comment on above: Performed By: #### C BC #### [facility] [address] [place] [address] Dr. Jose Elias Strong Monocytes/100 WBC (Bld) 12.2 % Critically high 1.7-12.0 [facility] Comment on above: Performed By: #### C BC #### [facility] [address] [address] [address] Jose Elias Strong NEUT # 7.0 103/ul Critically high 1.4-6.5 [facility] Comment on above: Performed By: #### C BC #### [facility] [address] [address] [address] Jose Elias Strong Neutrophils/100 WBC (Bld) 68.6 % Normal 43.0-75.0 [facility] Comment on above: Performed By: #### C BC #### [facility] [address] [address] [address] Jose Elias Strong Platelet mean volume (Bld) [Entitic vol] 9.1 fL Critically low 9.5-13.5 [facility] Comment on above: Performed By: #### C BC #### [facility] [address] [address] [address] Jose Elias Strong PLT 309 103/ul Normal 150-450 [facility] Comment on above: Performed By: #### C BC #### [facility] [address] [address] [address] Jose Elias Strong RBC 3.55 106/ul Critically low 4.20-5.40 [facility] Comment on above: Performed By: #### C BC #### [facility] [address] [place] [address] Dr. Jose Elias Strong WBC 10.1 103/ul Normal 4.0-11.0 [facility] Comment on above: Performed By: #### C BC #### [facility] [address] [address] [address] Jose Elias Strong GLYCOHEMOGLOBIN A1Con 2021 ADA RECOMMENDATION ADA THERAPEUTIC TARGET 6.0 - 7.0 ACTION SUGGESTED > 7.0 Normal [facility] Comment on above: Performed By: #### T NS #### [facility] [address] [place] [address] Dr. Jose Elias Strong Glucose [Mass/Vol] 97 mg/dL Normal [facility] Comment on above: Performed By: #### T NS #### [facility] [address] [place] [address] Dr. Jose Elias Strong HbA1c (Bld) [Mass fraction] 5.0 % Normal <=6.0 [facility] Comment on above: Performed By: #### T NS #### [facility] [id number] Jose Elias Strong Consenton 10-24-2020 Consent [id number] .00CD:127 [facility] In office Testingon 10-25-19 21 In office Testing [id number] 1.00CD:127 [facility] Registrationon 10-24-2020 Registration [id number] .00CD:127 [facility] Registration [id number] .00CD:127 [facility] Vital Signs Date Time Vital Sign Value Performing Clinician Facility 11-27-2023 14:39-0400 Body height 165.1 cm [facility] Aguilar Work Phone: [facility] 11-27-2023 14:39-0400 Body mass index (BMI) [Ratio] 24 kg/m2 [facility] Agu[facility] Work Phone: [facility] 11-27-2023 14:39-0400 Body temperature 98 [degF] [facility] Arpita Jeff Work Phone: [facility] 11-27-2023 14:39-0400 Body weight 65.4 kg [facility] Arpita Aguilar Work Phone: [facility] 11-27-2023 14:39-0400 Diastolic blood pressure 68 mm[Hg] [facility] Arpita Aguilar Work Phone: [facility] 11-27-2023 14:39-0400 Heart rate 87 /min [facility] Arpita Aguilar Work Phone: [facility] 11-27-2023 14:39-0400 Respiratory rate 18 /min [facility] Arpita Aguilar Work Phone: [facility] 11-27-2023 14:39-0400 SaO2% (BldA) [Mass fraction] 97 % [facility] Arpita Aguilar Work Phone: [facility] 11-27-2023 14:39-0400 Systolic blood pressure 98 mm[Hg] [facility] Arpita Aguilar Work Phone: [facility] 06-12-2023 11:02-0500 Body mass index (BMI) [Ratio] 30.26 kg/m2 Mary Venkat DO Work Phone: [facility] 06-12-2023 11:02-0500 Body weight 77.47 kg Mary Venkat DO Work Phone: [facility] 06-12-2023 11:02-0500 Diastolic blood pressure 70 mm[Hg] Mary Venkat DO Work Phone: [facility] 06-12-2023 11:02-0500 Systolic blood pressure 118 mm[Hg] Mayr Venkat DO Work Phone: [facility] Encounters Encounter Date Encounter Type Care Provider Facility Start: 11-27-2023 End: 11-27-2023 ambulatory [facility] Arpita Aguilar Work Phone: [facility] Work Phone: Start: 11-27-2023 End: 11-27-2023 Patient encounter procedure [facility] Arpita Aguilar Work Phone: [facility] Work Phone: Start: 09-10-2023 [...] Not Available Start: 12-10-2022 ambulatory ALEXANDER Myers [facility] Start: 11-19-2022 End: 11-19-2022 ambulatory YOMAIRA [facility] Start: 10-28-2022 End: 10-29-2022 ambulatory ALEXANDER [facility] Start: 08-29-2022 ambulatory YOMAIRA [facility] Start: 08-19-2022 End: 08-19-2022 Emergency department patient visit [facility] Start: 08-08-2022 End: 08-08-2022 Emergency department patient visit JERRY WALLS [facility] Start: 06-04-2022 End: 06-04-[address] [...] PM EST Routine [facility] [address] [place] [id number] Erika Chan PA [address] [place] [address] [facility] Payers Date Payer Category Payer Medicaid [id number] 2022 Medicaid [employer] [place] [id number] 2022-Present [address] [place] [address] [id number] 1995 Unknown [id number] 1995 Unknown [id number] 2.840.1.613298.3.579.2.593 1995 Unknown [id number] 2.840.1.456330.3.579.2.593 1995 Unknown [id number] 2.840.1.978433.3.579.2.593 1995 Unknown [id number] 2.840.1.573328.3.579.2.593 1995 Unknown [id number] 2.840.1.366602.3.579.2.593 1995 Unknown [id number] 2.16.840.1.759081.3.579.2.593 1995 Unknown [id number] 2.16.840.1.495247.3.579.2.593 1995 Unknown [id number] 2.16.840.1.516662.3.579.2.1212 1995 Unknown [id number] 2.16.840.1.446706.3.579.2.1212 1995 Unknown [id number] 2.16.840.1.201905.3.579.2.1212 1995 Unknown [id number] 2.16.840.1.617145.3.579.2.1212 1995 Unknown [id number] 2.16.840.1.714905.3.579.2.1212 1995 Unknown [id number] 2.16.840.1.267839.3.579.2.1212 1995 Unknown [id number] 2.16.840.1.248351.3.579.2.1258 1995 Unknown [id number] 2.16.840.1.574564.3.579.2.1258 1995 Unknown [id number] 2.16.840.1.567317.3.579.2.1258 1995 Unknown [id number] 2.16.840.1.446696.3.579.2.1258 1995 Unknown [id number] 2.16.840.1.631131.3.579.2.1258 1995 Unknown [id number] 2.16.840.1.260182.3.579.2.1258 1995 Unknown [id number] 2.16.840.1.129135.3.579.2.1258 1995 Unknown [id number] 2.16.840.1.206228.3.579.2.1259 1959 Unknown [id number] Social History Date Type Detail Facility Start: 10-21-2022 End: 11-27-2023 Tobacco smoking status NHIS Never smoked tobacco [facility] Start: 10-21-2022 Tobacco use and exposure Smoke less tobacco non-user [facility] Start: 06-12-2023 Alcohol intake Lifetime non-d deborah (finding) [facility] Start: 10-21-2022 History of Social function [facility] Start: 10-21-2022 Tobacco use panel [facility] Start: 11-11-2022 [facility] Start: 1995 Sex Assigned At Female [facility] Start: 10-20-2022 Gender identity Identifies as female gender (finding) [facility] Start: 10-20-2022 Sexual orientation Bisexual (finding ) [facility] Start: 11-27-2023 With Spouse/Significant Other [facility] Start: 11-27-2023 0 [facility] Start: 11-27-2023 Denies Use [facility] History of Present illness Narrative 06-12-2023 [...] Ambulatory Problems Diagnosis Date Noted Acute asthma ([facility]) 12/03/2022 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 Exam conducted with a zoogler present. Vitals: Estimated body mass index is [...] Facility Evaluation note No assessment information availa [facility] [employer] Work Phone: Summary Purpose Family History No [...] section and content) DATE CREATED AUTHOR 10/25/2020 [place] [facility] DATE CREATED AUTHOR AUTHOR'S ORGANIZ ATION 06/11/2022 [facility] DATE CREATED AUTHOR AUTHOR'S ORGANIZ ATION 12/16/2022 [facility] DATE CREATED AUTHOR AUTHOR'S ORGANIZ ATION 09/12/2023 [facility] EPIC Reason for Visit [...] BE BASED ON THE PRIMARY CLINICAL RECORDS. [facility] [employer] [facility]. provides no warranty or guarantee of the accuracy or completeness of information in this document.
[2024-05-27 13:19] LABS: Basophils Percent Auto 0.4 % (0.2-2.0); Eosinophils Absolute Auto 0.2 10^3/uL (0.0-0.7); Eosinophils Percent Auto 2.7 % (0.9-7.0); Hematocrit 34.1 % (36.0-48.0); Hemoglobin 11.5 g/dL (12.0-16.0); Immature Granulocytes Abs Auto 0.02 10^3/uL (0.00-0.03); Immature Granulocytes Pct Auto 0.4 % (0.0-0.5); Lymphocytes Absolute Auto 1.1 10^3/uL (1.2-3.8); Lymphocytes Percent Auto 19.8 % (20.5-60.0); Mean Corpuscular HGB Conc 33.7 g/dL (29.9-35.2); Mean Corpuscular Hemoglobin 30.3 pg (26.7-34.0); Mean Platelet Volume 9.7 fL (9.5-13.5); Monocytes Absolute Auto 0.6 10^3/uL (0.3-0.8); Monocytes Percent Auto 9.7 % (1.7-12.0); Neutrophils Absolute Auto 3.8 10^3/uL (1.4-6.5); Platelet Count 242 10^3/uL (150-450); Red Blood Count 3.79 10^6/uL (4.20-5.40); Red Cell Distribution Width 13.2 % (11.0-15.0); White Blood Count 5.7 10^3/uL (4.0-11.0)
[2024-05-27 13:37] LABS: BOX Test Reference Lab UNITY; BOX Test Sent Out UNITY
[2024-05-27 13:47] LABS: Amphetamine Screen Urine NEGATIVE (NEGATIVE); Barbiturates Screen Urine NEGATIVE (NEGATIVE); Benzodiazepines Screen Urine NEGATIVE (NEGATIVE); Buprenorphine Screen Urine NEGATIVE (NEGATIVE); Cannabinoid Screen Urine NEGATIVE (NEGATIVE); Cocaine Screen Urine NEGATIVE (NEGATIVE); Methadone Screen Urine NEGATIVE (NEGATIVE); Methamphetamines Screen Urine NEGATIVE (NEGATIVE); Opiate Screen Urine NEGATIVE (NEGATIVE); Oxycodone Screen Urine NEGATIVE (NEGATIVE); Phencyclidine Screen Urine NEGATIVE (NEGATIVE); Tricyclic Antidepressant Urine NEGATIVE (NEGATIVE)
[2024-05-27 14:00] LABS: Estimated Average Glucose 91 mg/dL; Glycohemoglobin A1C 4.8 % (4.5-6.2)
[2024-05-27 14:20] LABS: Glucose 1 Hour 83 mg/dL (<130); Thyroid Stimulating Hormone 7.047 uIU/mL (0.358-3.740)
[2024-05-28 06:08] LABS: HBsAg Screen Negative (Negative); HCV Ab Non Reactive (Non Reactive); HIV Ab/p24 Ag Screen Non Reactive (Non Reactive); Rubella Antibodies, IgG 1.25 index (Immune >0.99)
[2024-05-28 13:09] LABS: Rapid Plasma Reagin, Quant Non Reactive titer (NonRea<1:1)
== END 2024-05-27 11:41 | disposition home or self-care (01) ==
LOC: LAB 11:40
PROVIDERS: PCP Family Medicine; Visit Provider Obstetrics & Gynecology
DX: Z34.01 Encounter for supervision of normal first pregnancy, first trimester (principal); Z36.0 Encounter for antenatal screening for chromosomal anomalies; N91.2 Amenorrhea, unspecified; N92.6 Irregular menstruation, unspecified
CPT/HCPCS: 36415; 80307; 82728; 82950; 83036; 84443; 85025; 86592; 86762; 86803; 86850; 86900; 86901; 87086; 87340; 87389

== ENCOUNTER 2024-08-04 10:04 | Outpatient (OUT) | payer OTHER, SELFPAY ==
[2024-08-07 05:10] LABS: QuantiFERON-TB Gold Plus Negative (Negative)
== END 2024-08-04 10:05 | disposition home or self-care (01) ==
LOC: LAB 08-09 10:05
PROVIDERS: Obstetrics & Gynecology; PCP Family Medicine; Visit Provider Family Medicine
DX: Z00.00 Encounter for general adult medical examination without abnormal findings (principal)
CPT/HCPCS: 86480

== ENCOUNTER 2024-08-04 13:06 | Outpatient (OUT) | payer OTHER, SELFPAY ==
--- NOTE | 2024-08-04 13:11 | US_ITS ---
The [address] [address] Patient Name: KRISSY LOPEZ MRN: [id number] date: 1995 Sex: F Assigned Patient Location: Current Patient Location: US Accession/Order Number: [id number] Exam Date: 08/04/2024 14:32 Report Date: 08/04/2024 14:36 At the request of: MARY MARIE DO Procedure: US OB growth Ultrasound obstetrical growth examination HISTORY: Inconsistent size and with dates. Atrophy is of the cephalic presentation. The lie is longitudinal. The amniotic fluid is subjectively normal. The heart rate is 158 bpm. The aspirated weight is 648 g with weight percentile of 47%. The biparietal diameter 5.7 cm consistent with 23 weeks 3 days. Head circumference 21.4 cm consistent with 23 weeks 3 days. Abdominal circumference 19.7 cm consistent with 24 weeks 2 days. Femur length 4.2 cm consistent with 23 weeks 5 days. The average gestational age with ultrasound is 23 weeks 5 days. US/US OB growth IMPRESSION: Single live intrauterine gestation 23 weeks 5 days. Impression dictated by: Rhett Maurer M.D.08/04/2024 2:36 PM Dictation Location: [place] [address] Electronically authenticated by: [id number] Y Date: 08/04/2024 14:36
== END 2024-08-04 13:07 | disposition home or self-care (01) ==
LOC: US 13:07
PROVIDERS: PCP Family Medicine; Visit Provider Obstetrics & Gynecology
DX: O36.63X0 Maternal care for excessive fetal growth, third trimester, not applicable or unspecified (principal); O26.843 Uterine size-date discrepancy, third trimester; Z3A.23 23 weeks gestation of pregnancy; O99.282 Endocrine, nutritional and metabolic diseases complicating pregnancy, second trimester; Z36.1 Encounter for antenatal screening for raised alphafetoprotein level; E07.9 Disorder of thyroid, unspecified
CPT/HCPCS: 36415; 76816; 80307; 82105; 84443; 86480; 88175

== ENCOUNTER 2024-08-04 15:54 | Outpatient (OUT) | payer OTHER, SELFPAY ==
[2024-08-04 16:58] LABS: Thyroid Stimulating Hormone 2.735 uIU/mL (0.358-3.740)
[2024-08-04 17:11] LABS: Amphetamine Screen Urine NEGATIVE (NEGATIVE); Barbiturates Screen Urine NEGATIVE (NEGATIVE); Benzodiazepines Screen Urine NEGATIVE (NEGATIVE); Buprenorphine Screen Urine NEGATIVE (NEGATIVE); Cannabinoid Screen Urine NEGATIVE (NEGATIVE); Cocaine Screen Urine NEGATIVE (NEGATIVE); Methadone Screen Urine NEGATIVE (NEGATIVE); Methamphetamines Screen Urine NEGATIVE (NEGATIVE); Opiate Screen Urine NEGATIVE (NEGATIVE); Oxycodone Screen Urine NEGATIVE (NEGATIVE); Phencyclidine Screen Urine NEGATIVE (NEGATIVE); Tricyclic Antidepressant Urine NEGATIVE (NEGATIVE)
[2024-08-07 02:07] LABS: AFP Value 81.3 ng/mL (.); Gest. Age on Collection Date 23.9 weeks (.); Gestat. Age Based On Ultrasound (.); Insulin Dep Diabetes No (.); Maternal Age At EDD 29.1 yr (.); OSBR Risk 1 IN 10000 (.); Results Report (.)
== END 2024-08-04 15:55 | disposition home or self-care (01) ==
LOC: LAB 15:57
PROVIDERS: PCP Family Medicine; Visit Provider Obstetrics & Gynecology
DX: O99.282 Endocrine, nutritional and metabolic diseases complicating pregnancy, second trimester (principal); Z36.1 Encounter for antenatal screening for raised alphafetoprotein level; E07.9 Disorder of thyroid, unspecified
CPT/HCPCS: 36415; 80307; 82105; 84443; 86480

== ENCOUNTER 2024-08-04 18:05 | Outpatient (REF) | payer OTHER, SELFPAY | END 2024-08-04 18:06 | disposition home or self-care (01) | LOC: LAB 18:05 | PROVIDERS: PCP Family Medicine; Visit Provider Obstetrics & Gynecology | DX: Z01.419 Encounter for gynecological examination (general) (routine) without abnormal findings (principal) | CPT/HCPCS: 88175 ==

== ENCOUNTER 2024-09-08 14:55 | Outpatient (OUT) | payer OTHER, SELFPAY ==
[2024-09-08 16:04] LABS: Basophils Percent Auto 0.3 % (0.2-2.0); Eosinophils Absolute Auto 0.2 10^3/uL (0.0-0.7); Hematocrit 29.9 % (36.0-48.0); Hemoglobin 9.9 g/dL (12.0-16.0); Immature Granulocytes Abs Auto 0.28 10^3/uL (0.00-0.03); Immature Granulocytes Pct Auto 2.7 % (0.0-0.5); Lymphocytes Absolute Auto 1.3 10^3/uL (1.2-3.8); Lymphocytes Percent Auto 12.9 % (20.5-60.0); Mean Corpuscular HGB Conc 33.1 g/dL (29.9-35.2); Mean Corpuscular Hemoglobin 29.7 pg (26.7-34.0); Mean Corpuscular Volume 89.8 fL (81.0-99.0); Mean Platelet Volume 9.3 fL (9.5-13.5); Monocytes Absolute Auto 0.9 10^3/uL (0.3-0.8); Neutrophils Absolute Auto 7.6 10^3/uL (1.4-6.5); Neutrophils Percent Auto 73.1 % (43.0-75.0); Platelet Count 238 10^3/uL (150-450); Red Blood Count 3.33 10^6/uL (4.20-5.40); Red Cell Distribution Width 13.8 % (11.0-15.0); White Blood Count 10.4 10^3/uL (4.0-11.0)
[2024-09-08 16:11] LABS: Glucose 1 Hour 145 mg/dL (<130)
== END 2024-09-08 14:56 | disposition home or self-care (01) ==
LOC: LAB 14:56
PROVIDERS: PCP Family Medicine; Visit Provider Obstetrics & Gynecology
DX: Z13.1 Encounter for screening for diabetes mellitus (principal)
CPT/HCPCS: 36415; 82950; 85025

== ENCOUNTER 2024-09-27 08:56 | Observation (INO) | payer OTHER, SELFPAY ==
--- OUTSIDE RECORDS SUMMARY | 2024-09-21 15:02 | XMS_ITS ---
Author Name Auto Generated Organization OH[facility] Care Team Providers Care [employer]inist Name Role Phone MARY MARIE Attending Unavailable MARY MARIE Referring Unavailable MARY MARIE Attending Unavailable MARY MARIE Attending Unavailable MARY MARIE Attending Unavailable MARY MARIE Referring Unavailable SHIVA CHAN Attending Unavailable PROBLEMS DATE TYPE CONDITION / CODE ATTENDING STATUS [facility] 08/30/2024 Admitting Diagnosis Pain in left foot / M79.672(ICD-10) NA Active [facility] PROCEDURES No Procedure Records Found RESULTS US OB FOLLOW UP TRANSABDOMINAL APPROACH Observed: 2024 2:38 PM Status: F Source: [facility] EPIC Order Comment: US OB SCAN FO R GROWTH Estimated Date of Delivery: 11/25/24 Gestational Age as of 09/08/2024: 28w6d EXAM: US OB FOLLOW UP TRANSA BDOMINAL APPROACH HISTORY: No indication given. COMPARISON: Ob ultrasound 07/07/2024. TECHNIQUE: Two-dimensional transabdominal grayscale ultrasound imaging of the pelvis was performed. FINDINGS: Gestation: Single Presentation: Cephalic Cardiac Activity: 136 beats per minute Placental Location: Anterior with no sonographic abnormalities identified. Amniotic Fluid Index: 17.7 cm MEASUREMENTS: BPD: 7.6 cm EGA: 30 weeks 2 days HC: 28.3 cm EGA: 31 weeks 0 days AC: 28.3 cm EGA: 32 weeks 2 days FL: 6.0 cm EGA: 31 weeks 2 days HC/AC Ratio: 1.00 The gestational age by today's ultrasound is 31 weeks 2 days (+/- 15 days gestation). Estimated Weight: 1822 grams, +/- 273 grams ( 4 lb 0 oz). Weight Percentile for gestational age: 72 % IMPRESSION: 1. Single, live intrauterine gestation 30 weeks, 5 days by LMP. Today's ultrasound measurements correlate with a gestational age of 31 weeks 2 days. Estimated weight is 1822 grams, +/- 273 grams ( 4 lb 0 oz) which correlates to 72 %. ADEN is 11/21/2024. Interpreted by: Electronically signed by FARHEEN VELA II, MD, PHD at 21-Sep-2024 11:00:15 PM [facility] XRAY FOOT MINIMUM 3 VIEWS LEFT Observed: 08/30/2024 3:58 PM Status: F Source: [facility] Report EXAM INFORMATION: Examination: XRAY FOOT MINIMUM 3 VIEWS LEFT Date of Exam: 08/30/2024 3:59 pm Diagnosis/Reason for Exam: L calcaneal pain; fell down stairs recently Additional History: Fell down stairs a week ago. Medial plantar pain Number of Views: 3 Comparison: None. DISCUSSION: Minimal hallux valgus. No fracture identified. No dislocation. Chronic appearing dorsal ossification at the talonavicular joint. No focal soft tissue swelling. No radiopaque foreign body. IMPRESSION No acute finding. Interpretation by Markie Mckenzie M.D. Professional Interpretation by Radiology Reading US OB 14+ WEEKS ANATOMY SCAN Observed: 0 07/07/2024 2:31 PM Status: F Source: [facility] EPIC Order Comment: US OB ANATOMY SINGLE W US OB CERVICAL LENGTH Estimated Date of Delivery: 11/25/24 Gestational Age as of 06/10/2024: 16w0d EXAM: US OB 14+ WEEKS ANATOM Y SCAN HISTORY: anatomy. TECHNIQUE: Two-dimensional transabdominal grayscale ultrasound imaging of the pelvis was performed. FINDINGS: Gestation: Single Presentation: Variable Cardiac Activity: 156 beats per minute Placental Location: Anterior with no sonographic abnormalities identified. Distance from Placental Tip to Cervix: 5.3 cm Cervical Length: 5.6 cm Amniotic Fluid: Appears adequate MEASUREMENTS: BPD: 4.2 cm EGA: 18 weeks 6 days HC: 16.1 cm EGA: 18 weeks 6 days AC: 15.4 cm EGA: 20 weeks 4 days FL: 3.2 cm EGA: 19 weeks 6 days HC/AC Ratio: 1.04 The gestational age by today's ultrasound is 19 weeks 4 days (+/- 10 days gestation). Estimated Weight: 331 grams, +/- 50 grams ( 0 lb 12 oz). Weight Percentile for gestational age: 58 % ANATOMY C-Spine: Unremarkable T-Spine: Unremarkable L-Spine: Unremarkable Sacrum: Unremarkable Four Chamber Heart: Unremarkable LVOT: Unremarkable RVOT: Unremarkable Stomach: Unremarkable Kidneys: Unremarkable Bladder: Unremarkable Diaphragm: Unremarkable Cord insertion: Unremarkable Cord vessels: Three Lateral Ventricles: Unremarkable Cerebellum: Unremarkable Cisterna Magna: Unremarkable Posterior Fossa: Unremarkable Right Femur: Unremarkable Left Femur: Unremarkable Right Tib/Fib: Unremarkable Left Tib/Fib: Unremarkable Right Rad/Ulnar: Unremarkable Left Rad/Ulnar: Unremarkable Right Humerus: Unremarkable Left Humerus: Unremarkable Nose/Lips: Unremarkable Profile: Unremarkable Orbits: Unremarkable IMPRESSION: 1. Single, live intrauterine gestation 19 weeks, 6 days by LMP. Today's ultrasound measurements correlate with a gestational age of 19 weeks 4 days. Estimated weight is 331 grams, +/- 50 grams ( 0 lb 12 oz) which correlates to 58 %. ADEN is 11/27/2024. 2. Unremarkable ultrasound of the anatomy. Electronically Signed:Electronically signed by FARHEEN VELA II, MD, PHD at 08-Jul-2024 10:38:23 AM [facility] US OB < 14 WEEKS EARLY Observed: 025 10:01 AM Status: F Source: [facility] EPIC Order Comment: US OB TRANSVA GINAL No LMP recorded. TITLE OF EXAM: OB Ultrasound : REASON FOR EXAM: Viability. COMPARISON: None TECHNIQUE: Grayscale and M-mode Doppler imaging is performed. FINDINGS: heart rate: 158 bpm BPD: 2.4 cm HC: 9.1 cm AC: 8.2 cm FL: 1.2 cm GA for sonogram: 14.1 wk (12.7-15.4) Weight Estimate: Weight: 89 gm / 0 lbs, 3 oz (76-102 gm) Hadlock Normal: 126 gm (104-147 gm) Hadlock Wt%: 1% for 15.3 wks Anatomy Observed: Gestational Sac: Visualized Yolk Sac: Not Visualized Pole: Visualized Cardiac Activity: Visualized 158 bpm Uterus: Normal Uterine Position: Anteverted, anteflexed Right Ovary: Not Visualized Left Ovary: 3.4 x 1.7 x 3.5 cm Volume: 10.7 cc Normal IMPRESSION: Single viable intrauterine with an estimated ultrasound age of 14 weeks. Dictated and transcribed 05/27/24/bartolo This report has been electronically signed and approved by the interpreting radiologistGulshan SHAY Observed: 11/27/2023 2:34 PM Status: F Source: [facility] [address] [place] [address] Office Visit Report Signed Patient Name: Jojo Lopez Medical Record #: [id number] Date of : 1995 Age/Sex: 28 / F Date of Service: Location: [facility] Attending physician: Arpita DAVID Intake Vital Signs 11/27/23 14:39 Height 5 ft 5 in Weight (kg) 144 lb 3 oz BMI 24.0 BP 98/68 L BP Location Left Brachial BP Position Sitting BP Cuff Size Adult BP Source Manual Cuff Respiration 18 Pulse 87 Pulse Source Monitor Temp 98.0 F Temp Source Temporal Artery Scan Pulse Oximetry (%) 97 Oxygen Delivery Method Room Air Intake Visit Reasons: [place] px Allergies Allergy/AdvReac Type Severity Reaction Status Date / Time shellfish derived Allergy Intermediate Hives Verified 11/27/23 14:36 Penicillins AdvReac Intermediate Hives Verified 11/27/23 14:36 Current Medication List - Last Reconciled 11/27/23 by Iris Barid ibuprofen 800 mg tablet 800 mg PO Q6H PRN quetiapine 50 mg tablet 50 mg PO BEDTIME sertraline 50 mg tablet 50 mg PO DAILY Is patient having pain: No Is last menstrual period known: Yes Patient : Yes (a chance) Do you need a note to return to daycare/school/sports/work: No Nurse's Note: Patient presents for work physical [facility] [facility] Medical History (Updated 11/27/23 @ 14:38 by Iris Baird) ADHD Autism Surgical History (Updated 11/27/23 @ 14:39 by Iris Baird) H/O section History of tonsillectomy Urgent Care Social History Social History History Provided by: Patient Living Situation History Usual Living Arrangement: With Spouse/Significant Other Tobacco History Smoking Status: Never Smoker AUDIT-C How Often do you Have a Drink Containing Alcohol: Never AUDIT-C Alcohol Total Score: 0 Substance Use History Caffeine Use: Yes Non-Prescribed Substance Use: Denies Use HPI narinder monteiro HPI Details Type he sees Nessa nurse HPI Comments History of Present Illness Details 28-year-old female presents with request for [employer] work physical. 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 She has a history of ADHD and autism but denies any other chronic medical problems. She denies any chest pain, shortness of breath, back pain, knee pain. Physical Exam Constitutional Common normals: no acute distress, average body habitus, patient oriented x3, no limitations, healthy appearing, alert and well nourished General appearance: well kempt and well hydrated Orientation/consciousness: Yes awake, Yes oriented to person, Yes oriented to place and Yes oriented to time HENT Common normals: normocephalic, atraumatic, hearing grossly normal bilaterally, external ears normal, EAC's normal, TM's normal bilaterally, Normal external nose present, Normal nasal mucous membranes and turbinates present, moist oral mucous membranes, Normal oral and palatal mucosa present, oropharynx normal, dentition normal and gingiva normal Head and scalp: normocephalic and atraumatic Face and sinus: normal facial exam and face symmetric Nose: Normal external nose present and Normal nasal mucous membranes and turbinates present External ear: external ears normal External auditory canal: EAC's normal Tympanic membrane: TM's normal bilaterally Mouth: Normal oral and palatal mucosa present Throat: posterior oropharynx normal and uvula midline Eye Common normals: Equal, round and reactive pupils present, EOMs intact bilaterally, conjunctivae normal and no scleral icterus Conjunctiva: conjunctivae normal Pupil: Equal, round and reactive pupils present Neck C-Spine Common normals: full ROM, no lymphadenopathy, supple, soft and no JVD Respiratory Common normals: normal respiratory effort, Normal inspection, No retractions, No use of accessory muscles, clear to auscultation bilaterally, Good bilateral breath sounds, good inspiratory effort and good expiratory effort Auscultation: clear to auscultation bilaterally Cardio Common normals: no JVD, regular rate, regular rhythm, S1 normal heart sound present, S2 normal heart sound present, No gallops present (Cardio), No clicks present (Cardio), No murmurs present (Cardio), No rub (Cardio) and Peripheral pulses 2+ throughout Rate: regular rate Rhythm: regular rhythm Heart sounds: S1 normal heart sound present and S2 normal heart sound present Pulses: Yes Peripheral pulses 2+ throughout GI Common normals: Normal to inspection, nondistended, normoactive bowel sounds present Back Pelvis Common normals: thoracic and lumbar spine normal to inspection and thoraco- lumbar ROM normal Neuro Common normals: alert and patient oriented x3 Sensorium/orientation: Yes awake, Yes alert, Yes oriented to person, Yes oriented to place and Yes oriented to time Psych Common normals: mental status grossly normal and speech normal Appearance: Yes well kempt Speech: Yes normal speech Skin Common normals: warm, normal color, no rashes or lesions noted, no wounds, turgor normal, no jaundice, no petechiae and no mottling General skin exam: no rashes or lesions noted and turgor normal Assessment Plan Assessment Plan (1) Pre-employment examination: Code(s): Z02.1 - Encounter for pre-employment examination Plan: 28-year-old female presents with request for [employer] work physical. 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 She has a history of ADHD and autism but denies any other chronic medical problems. She denies any chest pain, shortness of breath, back pain, knee pain. Physical exam reveals heart tones are regular lung sounds are clear throughout. No murmurs present. Overall physical exam is unremarkable. Patient is physically cleared for employment without restriction. Patient Instructions: physically cleared for employment without restriction Dictated By: JOANN Vicente 11/27/23 1434 Signed By: <Electronically signed by JOANN Aguilar> 11/27/23 1613 Cosigned By (if applicable): [id number] cc: JOANN Vicente ALLERGIES DATE TYPE / CODE NAME / CODE REACTION SEVERITY SOURCE 10/28/2022 DRUG INGREDI/1700923 03(SNOMED CT) NICKEL [facility] 08/08/2022 DRUG INGREDI/[id number] 03(SNOMED CT) IODINE [facility] 08/08/2022 Drug Class/[id number] (SNOMED CT) SHELLFISH CONTAINING PRODUCTS [facility] 08/08/2022 DRUG INGREDI/[id number] 03(SNOMED CT) VENOM-HONEY BEE [facility] 10/03/2015 DRUG INGREDI/[id number] 03(SNOMED CT) LATEX [facility] and [facility] 06/06/1996 Drug Class/[id number] (SNOMED CT) PENICILLINS Unknown [facility] ENCOUNTERS ADMIT/DISCHARGE ACCOUNT NUMBER ADMITTING ENCOUNTER CLASS LOCATION SOURCE 09/21/2024/ 5 [id number] Ambulatory Building:[facility] 09/21/2024/ 5 [id number] Ambulatory Building:[facility] 09/08/2024/ 5 [id number] Ambulatory Building:[facility] 08/30/2024/ 5 [id number] Emergency Building:[facility] HEDRoom: ZQ39Wag: ED05 [facility] 08/04/2024/ 5 [id number] Ambulatory Building:[facility] EPIC 07/07/2024/ 5 [id number] Ambulatory Building:[facility] 07/07/2024/ 5 [id number] Ambulatory Building:[facility] 06/10/2024/ 5 [id number] Ambulatory Building:[facility] EP[facility] 05/27/2024/ 5 [id number] Ambulatory Building:[facility] EPIC 05/27/2024/ 5 [id number] Ambulatory Building:[facility] EPIC PAYERS ENCOUNTER GUARANTOR PAYER SUBSCRIBER SOURCE 2024 ALEIACaitlyn GELDINEDOB: [address] [address]Jti: (HP) Primary [facility] [place] MED[place]Policy Number: [id number] Date:2022-01-14 ALEIACaitlyn GELDINEDOB: [id number] [address] [place] [address] [facility] EPIC 2024 JOJO GELDINEDOB: [address] [address]Ueg: (HP) Primary Insurance:[facility] [place]Policy Number: [id number] Date:2022-01-14 FREDAIACaitlyn GELDINEDOB: [id number] [place] [address] [facility] EPIC 09/08/2024 ALEIACaitlyn GELDINEDOB: [address] [address]Itd: (HP) Primary Insurance:[facility] [place] [place]Policy Number: [id number] Date:2022-01-14 ALEIACaitlyn GELDINEDOB: [id number] [address] [address] [facility] EPIC 08/30/2024 JOJO BURGESSB: [address] [place] [address]Wtx: (HP) Primary Insurance:MEDICAID OUT OF STATEPolicy Number: [id number] Date:2022-08-08 JOJO R GELDINEDOB: [id number] [address] [place] [address] [facility] 08/04/2024 ALEKATHLEEN GELDINEDOB: [address] [address]Cqe: (HP) Primary Insurance[place] [place] [place]Policy Number: [id number] Date:2022-01-14 ALEIAH GELDINEDOB: [id number] [address] [address] [facility] EPIC 07/07/2024 ALEKATHLEEN GELDINEDOB: [address] [address]Psm: (HP) Primary Insurance:[facility] [place] [place]Policy Number: [id number] Date:2022-01-14 FREDAIACaitlyn GELDINEDOB: [id number] [address] [address] [facility] EPIC 07/07/2024 ALEIAH GELDINEDOB: [address] [address]Aeh: (HP) Primary Insurance:[employer] MEDICAIDPolicy Number: [id number] Date:2022-01-14 ALEIAH GELDINEDOB: [id number] [address] [address] [facility] EPIC 06/10/2024 ALEIAH GELDINEDOB: [address] [address]Bhu: (HP) Primary Insurance:[employer] MEDICAIDPolicy Number: [id number] Date:2022-01-14 ALEIAH GELDINEDOB: [id number] [address] [address] [facility] EPIC 05/27/2024 JOJO LOPEZDOB: [id number] [address] [address]Ckk: () Primary Insurance:[employer] MEDICAIDPolicy Number: [id number] Date:2022-01-14 JOJO LOPEZDOB: [id number] [address] [address] [facility] EPIC 05/27/2024 JOJO LOPEZDOB: [id number] [address] [address]Gdz: () Primary Insurance:[employer] MEDICAIDPolicy Number: [id number] Date:2022-01-14 JOJO BUTLERDINEDOB: [id number] [address] [address] [facility] EPIC
[2024-09-27 09:19] VITALS: BP 113/70; PULSE 115; TEMP 37.2
[2024-09-27 09:59] LABS: Bilirubin Urine NEGATIVE (NEGATIVE); Blood Urine NEGATIVE (NEGATIVE); Clarity Urine CLEAR (CLEAR); Color Urine LT. YELLOW (YELLOW); Glucose Urine UA NEGATIVE (NEGATIVE); Ketones Urine NEGATIVE (NEGATIVE); Leukocyte Esterase Urine NEGATIVE (NEGATIVE); Nitrite Urine NEGATIVE (NEGATIVE); Protein Urine NEGATIVE (NEG/TRACE); Urobilinogen Urine 0.2 EU/dL (0.2-1.0)
[2024-09-27 10:05] LABS: Urine Microscopic Indicated NO
[2024-09-27] MEDS: 0.9 % SODIUM CHLORIDE 1,000 ML 1000 ML IV ×2 (10:35→11:28)
[2024-09-27 10:46] LABS: Basophils Percent Auto 0.2 % (0.2-2.0); Eosinophils Absolute Auto 0.1 10^3/uL (0.0-0.7); Eosinophils Percent Auto 0.5 % (0.9-7.0); Hematocrit 29.6 % (36.0-48.0); Immature Granulocytes Abs Auto 0.25 10^3/uL (0.00-0.03); Immature Granulocytes Pct Auto 1.9 % (0.0-0.5); Lymphocytes Absolute Auto 1.3 10^3/uL (1.2-3.8); Lymphocytes Percent Auto 9.9 % (20.5-60.0); Mean Corpuscular HGB Conc 33.8 g/dL (29.9-35.2); Mean Corpuscular Hemoglobin 29.3 pg (26.7-34.0); Mean Corpuscular Volume 86.8 fL (81.0-99.0); Mean Platelet Volume 9.7 fL (9.5-13.5); Monocytes Absolute Auto 1.2 10^3/uL (0.3-0.8); Monocytes Percent Auto 9.1 % (1.7-12.0); Neutrophils Absolute Auto 10.1 10^3/uL (1.4-6.5); Neutrophils Percent Auto 78.4 % (43.0-75.0); Platelet Count 264 10^3/uL (150-450); Red Blood Count 3.41 10^6/uL (4.20-5.40); Red Cell Distribution Width 13.6 % (11.0-15.0); White Blood Count 12.8 10^3/uL (4.0-11.0)
[2024-09-27 11:02] LABS: Alanine Aminotransferase 13 U/L (14-59); Albumin Globulin Ratio 0.7; Albumin Level 2.8 g/dL (3.4-5.0); Alkaline Phosphatase 83 U/L (46-116); Anion Gap 16.2; Aspartate Amino Transferase 12 U/L (15-37); BUN Creatinine Ratio 26.1; Bilirubin Total 0.4 mg/dL (0.2-1.0); Carbon Dioxide 23.6 mmol/L (21.0-32.0); Chloride 103 mmol/L (98-107); Estimated GFR (African America >60 (>=60 mL/min/1.73m^2); Estimated GFR (Non-African Ame >60 (>=60 mL/min/1.73m^2); Globulin 4.1 g/dL; Glucose 96 mg/dL (74-106); Potassium 3.8 mmol/L (3.5-5.1); Sodium 139 mmol/L (136-145); Total Protein 6.9 g/dL (6.4-8.2)
[2024-09-27 11:05] LABS: Amylase 51 U/L (25-115)
[2024-09-27] MEDS: ACETAMINOPHEN 500 MG TABLET 1000 MG PO (11:27)
== END 2024-09-27 13:15 | disposition home or self-care (01) ==
PROVIDERS: Admitting Provider Obstetrics & Gynecology; PCP Family Medicine; Visit Provider Obstetrics & Gynecology
DX: O26.899 Other specified pregnancy related conditions, unspecified trimester (principal); R11.0 Nausea; R50.9 Fever, unspecified; Z3A.00 Weeks of gestation of pregnancy not specified
CPT/HCPCS: 36415; 76818; 80053; 81003; 82150; 83690; 85025; G0378; G0379

== ENCOUNTER 2024-10-25 21:33 | Outpatient (REF) | payer OTHER, SELFPAY ==
--- OUTSIDE RECORDS SUMMARY | 2024-10-25 21:40 | XMS_ITS | CCD ---
Author Organization [facility] Care Team Providers Care Wood Machinist Name Role Phone VENKAT, DR HERNANDEZ Admitting [...] DR LIZABETH Kauffman Primary Care Unavail able Unavailable Primary Care Provider JOANN Hutson Attending Provider Sagar PENA, Erika Unavailable MARY ROBLEDO Attending Unavailable VENKAT, MARY Referring Unavailable MARY ROBLEDO Attending Unavailable MARY ROBLEDO Attending Unavailable MARY ROBLEDO Attending Unavailable MARY ROBLEDO Referring Unavailable ERIKA CHAN Attending Unavailable MARY ROBLEDO Attending Unavailable Allergies Allergy Classification Reported Allergen(s) Allergy Type Date of Onset Reaction(s) Facility (2 sources) Latex; Translations: [LATEX] Drug allergy (disorder) 6 [facility] Repository (2 sources) Leucine; Translations: [NICKEL] Drug Allergy 7 [facility] (2 sources) Penicillins; Translations: [PENICILLINS] Drug allergy (disorder) 7 [facility] (1 source) Shellfish Drug allergy (disorder) 7 [facility] (20 sources) Amoxicillin Drug Allergy [address] [facility] (20 sources) Bee pollen Allergy to substance [address] [facility] (20 sources) Honey bee venom Propensity to adverse reactions [address] [facility] (20 sources) Iodine; Translations: [IODINE] Drug Allergy 3 [facility] (20 sources) Latex Allergy to substance [address] [facility] (20 sources) nickel sulfate Drug Allergy [address] [facility] (20 sources) Penicillin G Drug Allergy [address] [facility] (20 sources) Shellfish-Derive d Products Drug Allergy [address] [facility] (1 source) Penicillins Propensity to adverse reactions 4 [facility] (1 source) Shellfish Allergy to substance 4 [facility] (1 source) SHELLFISH CONTAINING PRODUCTS; Translations: [SHELLFISH CONTAINING PRODUCTS] Propensity to adverse reactions to drug (disorder) 3 [facility] Repository (1 source) VENOM-HONEY BEE; Translations: [VENOM-HONEY BEE] Propensity to adverse reactions to drug (disorder) 3 [facility] Repository Medications Current Medications Medication Drug Class(es) Dates Sig (Normalized) Sig (Original) [id number] 200 actuat albuterol 0.09 mg/actuat metered dose [...] after use 0 10/03/2022 Active levothyroxine sodium 0.1 mg oral tablet (20 sources) l-Thyroxine Start: 07-07-2024 End: 10-05-2024 take 1 tablet by mouth before mealtime levothyroxine (Synthroid) 100 MCG tablet Indications: Thyroid disease Take 1 tablet (100 mcg) by mouth in the morning. Take before meals. 90 tablet 07/07/2024 Active Start: 05-30-2024 End: 07-07-2024 take 1 tablet by mouth before mealtime levothyroxine (Synthroid, Levoxyl) 75 MCG tablet Take 75 mcg by mouth in the morning. Take before meals. 05/30/2024 07/07/2024 Discontinued (Therapy completed) Start: 02-06-2023 End: 06-10-2024 take 1 tablet by mouth before mealtime levothyroxine (Synthroid) 25 MCG tablet Indications: Hypothyroidism (acquired) ([facility]) Take 1 tablet (25 mcg) by mouth in the morning. Take before meals. 30 tablet 11 02/06/2023 06/10/2024 Discontinued metoclopramide 10 mg oral tablet (20 sources) Dopamine-2 Receptor Antagonist Start: 08-06-2024 take 1 tablet by mouth in the morning as needed for nausea metoclopramide (Reglan) 10 MG tablet Indications: Amenorrhea , Missed menses , , unspecified gestational age ([facility]) , Encounter for supervision of normal first in first trimester ([facility]) TAKE 1 TABLET BY MOUTH 30 MINUTES PRIOR TO MEALS IN THE MORNING, AT NOON, AND IN THE EVENING NEEDED FOR NAUSEA 90 tablet 08/06/2024 Active Start: 05-27-2024 End: 06-26-2024 metoclopramide (Reglan) 10 M G tablet Indications: Amenorrhea , Missed menses , , unspecified gestational age , Encounter for supervision of normal first in first trimester Take 1 tablet (10 mg) by mouth in the morning and 1 tablet (10 mg) at noon and 1 tablet (10 mg) in the evening. Take before meals. Take 1 tablet by mouth 30 minutes prior to meals 3 times daily as needed for nausea.. 90 tablet 05/27/2024 Active metroNIDAZOLE 500 mg oral tablet (4 sources) Nitroimidazole Antimicrobial Start: 09-03-2024 End: 09-10-2024 take 1 tablet by mouth in the morning metroNIDAZOLE (Flagyl) 500 MG tablet Indications: Trichomonas infection Take 1 tablet (500 mg) by mouth in the morning and 1 tablet (500 mg) before bedtime. Do all this for 7 days. Do not drink alcohol while taking this medication. 14 tablet 09/03/2024 09/10/2024 Active multivitamin () 27-0.8 MG tablet (1 source) Start: 12-04-2022 take 1 tablet by mouth in the morning multivitamin () 27-0.8 MG tablet Take 1 tablet by mouth in the morning. 0 12/04/2022 Active ondansetron 4 mg oral tablet (20 sources) Serotonin-3 Receptor Antagonist Start: 06-10-2024 take 1 tablet by mouth every six hours as needed for nausea and vomiting and nausea and nausea ondansetron (Zofran) 4 MG tablet Indications: Nausea Take 1 tablet (4 mg) by mouth every 6 (six) hours if needed for nausea or vomiting for up to 30 doses Take 1 tablet by mouth every 6 hours as needed for nausea. 30 tablet 3 06/10/2024 Active Start: 05-27-2024 End: 06-26-2024 take 1 tablet by mouth every six hours for nausea ondansetron ODT (Zofran-ODT) 4 MG disintegrating tablet Indications: Nausea and vomiting in Take 1 tablet (4 mg) by mouth every 6 (six) hours if needed for nausea or vomiting 30 tablet 2 05/27/2024 06/26/2024 Active polysaccharide iron complex 391 mg oral capsule (3 sources) Start: 06-10-2024 End: 07-10-2024 take 1 capsule by mouth once daily iron polysaccharides (ProFe) 391.3 (180 Fe) MG capsule Indications: 16 weeks gestation of Take 1 capsule (391.3 mg) by mouth Daily 30 capsule 3 06/10/2024 07/10/2024 Active Vit-Fe Fumarate-FA ( Plus/Iron) 27-1 MG tablet (1 source) Start: 12-04-2022 End: 12-04-2023 take 1 tablet by mouth in the morning Vit-Fe Fumarate-FA ( Plus/Iron) 27-1 MG tablet Indications: Missed menses Take 1 tablet by mouth in the morning. 30 tablet 0 12/04/2022 12/04/2023 Active Vit-Fe Fumarate-FA ( Vitamins) 28-0.8 MG tablet (19 sources) Start: 06-10-2024 End: 06-10-2025 take 1 tablet by mouth once daily Vit-Fe Fumarate-FA ( Vitamins) 28-0.8 MG tablet Indications: 16 weeks gestation of ([facility]) Take 1 tablet by mouth Daily 30 tablet 3 06/10/2024 06/10/2025 Active Start: 06-10-2024 End: 06-10-2025 take 1 tablet by mouth once daily Vit-Fe Fumarate-FA ( Vitamins) 28-0.8 MG tablet Indications: 16 weeks gestation of Take 1 tablet by mouth Daily 30 tablet 3 06/10/2024 06/10/2025 Active Progesterone 200 MG suppository (1 source) Start: 01-14-2024 End: 02-13-2024 Progesterone 200 MG suppository Indications: History of miscarriage Insert 200 mg into the vagina at bedtime Insert suppository vaginally every night at bedtime until 12 weeks gestation 30 suppository 01/14/2024 02/13/2024 Active QUEtiapine 50 mg oral tablet (1 source) Atypical Antipsychotic Start: 11-27-2023 take 50 mg by mouth at bedtime Quetiapine Active 50 MG PO bedtime November 27, 2023 12:00am sertraline 50 mg oral tablet (11 sources) Serotonin Reuptake Inhibitor Start: 10-06-2024 End: 04-04-2025 take 1 tablet by mouth once daily sertraline (Zoloft) 50 MG tablet Indications: Mood changes Take 1 tablet (50 mg) by mouth Daily 30 tablet 5 10/06/2024 04/04/2025 Active Start: 09-16-2023 End: 09-10-2024 take 1 tablet by mouth once daily sertraline (Zoloft) 50 MG tablet Indications: Anxiety, generalized (CMS/HCC) Take 1 tablet (50 mg) by mouth Daily 30 tablet 11 09/16/2023 06/10/2024 Discontinued valACYclovir 500 mg oral tablet (5 sources) Herpesvirus Nucleoside Analog DNA Polymerase Inhibitor, Herpes Simplex Virus Nucleoside Analog DNA Polymerase Inhibitor, Herpes Zoster Virus Nucleoside Analog DNA Polymerase Inhibitor Start: 10-06-2024 End: 01-04-2025 take 1 tablet by mouth once daily valACYclovir (Valtrex) 500 MG tablet Indications: Herpes simplex Take 1 tablet (500 mg) by mouth Daily 30 tablet 2 10/06/2024 01/04/2025 Active Completed/Discontinued Medications Medication Drug Class(es) Dates Sig (Normalized) Sig (Original) docusate sodium 100 mg oral capsule (5 sources) Start: 07-19-2023 End: 06-10-2024 take 1 capsule by mouth twice daily as needed for constipation docusate sodium (Colace) 100 MG capsule Take 100 mg by mouth 2 (two) times a day as needed for constipation 07/19/2023 06/10/2024 Discontinued ibuprofen 800 mg oral tablet (6 sources) Nonsteroidal Anti-inflammatory Drug Start: 07-19-2023 End: 06-10-2024 take 1 tablet by mouth every six hours as needed for pain and pain ibuprofen 800 MG tablet Take 800 mg by mouth every 6 (six) hours if needed for mild pain or moderate pain 07/19/2023 06/10/2024 Discontinued Problems Active Problems Problem Classification Problem Date Documented Date Episodic/Chronic Asthma (20 sources) Exacerbation of asthma; Translations: [Unspecified asthma, uncomplicated] Onset: 12-03-2022 12-03-2022 Chronic Menstrual disorders (4 sources) Amenorrhea; Translations: [Amenorrhea, unspecified] 05-27-2024 Chronic Mood disorders (2 sources) Disturbance in mood; Translations: [Emotional lability] 10-06-2024 Episodic Mood disorders (1 source) Mood disorders; Translations: [DEPRESSION UNSPECIFIED] Onset: 08-30-2021 Nausea and vomiting (1 source) Nausea; Translations: [Nausea] 06-10-2024 Episodic Other complications of (2 sources) Anemia of ; Translations: [Anemia complicating , unspecified trimester] 07-07-2024 Chronic Other complications of (2 sources) Vomiting of , unspecified; Translations: [Unspecified vomiting of , unspecified as to episode of care or not applicable] 05-27-2024 Episodic Other complications of (2 sources) size does not accord with dates; Translations: [Uterine size-date discrepancy, unspecified trimester] 09-08-2024 Episodic Other connective tissue disease (2 sources) Pain in left foot; Translations: [Pain in left foot] Onset: 08-30-2024 Episodic Other infections; including parasitic (2 sources) Infection by Trichomonas; Translations: [Trichomoniasis, unspecified] 2024 Episodic Other and delivery including normal (20 sources) Encounter for care and examination of lactating mother; Translations: [Encounter for routine follow-up] Onset: 08-27-2021 Episodic Residual codes; unclassified (1 source) Gestation period, 16 weeks; Translations: [16 weeks gestation of ] 06-10-2024 Episodic Residual codes; unclassified (2 sources) Gestation period, 19 weeks; Translations: [19 weeks gestation of ] 07-07-2024 Episodic Residual codes; unclassified (2 sources) Gestation period, 28 weeks; Translations: [28 weeks gestation of ] 09-08-2024 Episodic Residual codes; unclassified (2 sources) Gestation period, 30 weeks; Translations: [30 weeks gestation of ] 2024 Episodic Residual codes; unclassified (2 sources) Gestation period, 32 weeks; Translations: [32 weeks gestation of ] 10-06-2024 Episodic Residual codes; unclassified (2 sources) Gestation period, 35 weeks; Translations: [35 weeks gestation of ] 10-25-2024 Episodic Schizophrenia and other psychotic disorders (20 sources) Schizoaffective disorder; Translations: [Schizoaffective disorder, unspecified] Onset: 12-03-2022 12-03-2022 Chronic Thyroid disorders (2 sources) Hypothyroidism; Translations: [Other specified hypothyroidism] 2024 Chronic Thyroid disorders (4 sources) Disorder of thyroid gland; Translations: [Disorder of thyroid, unspecified] 07-07-2024 Episodic Unclassified (1 source) CONTACT W/AND (SUSP) EXPOS COVID-19; Translations: [CONTACT W/AND (SUSP) EXPOS COVID-19] Onset: 08-30-2021 Unclassified (18 sources) OB Reminders Onset: 06-10-2024 06-10-2024 Viral infection (1 source) Herpesviral infection of urogenital system, unspecified; Translations: [HERPESVIRAL INF UROGENITAL SYS UNS] Onset: 08-30-2021 Chronic Viral infection (2 sources) Herpes simplex; Translations: [Herpesviral infection, unspecified] 10-06-2024 Episodic Past or Other Problems Problem Classification Problem Date Documented Date Episodic/Chronic Cancer of cervix (1 source) Low grade [...] conditions (not mental disorders or infectious disease) (20 sources) Encounter for screening for malignant neoplasm of cervix; Translations: [Abnormal cytological findings in specimens from other female genital organs] Onset: 06-19-2021 Episodic Other skin disorders (20 sources) Neck swelling; Translations: [Localized swelling, mass and lump, neck] Onset: 08-19-2022 12-03-2022 Episodic Residual codes; unclassified (1 source) 38 weeks gestation of ; Translations: [38 WEEKS GESTATION OF ] Onset: 08-30-2021 Episodic Residual codes; unclassified (1 source) 31 weeks gestation of ; Translations: [31 WEEKS GESTATION OF ] Onset: 07-03-2021 Episodic Results Test Name Value Interpretation Reference Range Facility Urinalysis macro (dipstick) panel (U)on 10-25-2024 Bilirubin, UA Trace Negative - 4(70) +++ mg/dL [facility] Blood, UA Negative Negative - 50 Yovany/mcL [facility] Clarity, UA Clear [facility] Color, UA Yellow [facility] Glucose, UA Negative Negative - 1999(110) ++++ mg/dL [facility] Interpretation and review of laboratory results Abnormal [facility] Ketones, UA Negative Negative - 160(16) ++++ mg/dL [facility] Leukocytes, UA Positive Negative - 500+++ Jamey/mcL [facility] Comment on above: small Nitrite, UA Negative Negative - Positive [facility] pH, UA 7 5 - 9 [facility] Protein, UA Positive Negative - 1999(20) ++++ mg/dL [facility] Comment on above: 30mg Spec Grav, UA 1.02 1 - 1.03 [facility] Urobilinogen, UA 0.2 0.2 - 12 mg/dL Count includes the [facility] UA (CLEAN/CATCH) EDUCATION AND TRAINING COORDINATOR/ENRIQUE RO IF IND.on 09-27-2024 BILIRUBIN URINE Negative NEGATIVE [facility] BLOOD URINE Negative NEGATIVE [facility] Clarity (U) CLEAR CLEAR [facility] Color (U) LT. YELLOW YELLOW [facility] GLUCOSE URINE UA Negative NEGATIVE mg/dL [facility] Ketones Ql (U) Negative NEGATIVE mg/dL [facility] Leukocyte esterase Test strip Ql (U) Negative NEGATIVE [facility] NITRITE URINE Negative NEGATIVE [facility] pH (U) 7.0 [pH] 5.0 - 9.0 [facility] PROTEIN [facility] Negative NEG/TRACE mg/dL [facility] SPECIFIC GRAVITY URINE 1.010 1.005 - 1.025 [facility] URINE MICROSCOPIC INDICATED NO [facility] UROBILINOGEN URINE 0.2 EU/dL 0.2 - 1.0 EU/dL [facility] US OB FOLLOW UP TRANSABDOMIN AL APPROACHon 2024 US OB FOLLOW UP TRANSABDOMINAL APPROACH EXAM: US OB FOLLOW UP TRANSABDOMINAL APPROACH HISTORY: No indication given. COMPARISON: Ob [...] II, MD, PHD at 21-Sep-2024 11:00:15 PM [facility] Normal Not Available Comment on above: Order Comment: US OB SCAN FOR GROWTH Estimated Date of Delivery: 11/25/24 Gestational Age as of 09/08/2024: 28w6d Urinalysis macro (dipstick) panel (U)on 2024 Bilirubin, UA Negative Negative - 4(70) +++ mg/dL [facility] Blood, UA Negative Negative - 50 Yovany/mcL [facility] Clarity, UA Cloudy [facility] Color, UA Yellow [facility] Glucose, UA Negative Negative - 1999(110) ++++ mg/dL [facility] Interpretation and review of laboratory results Abnormal [facility] Ketones, UA Negative Negative - 160(16) ++++ mg/dL [facility] Leukocytes, UA Negative Negative - 500+++ Jamey/mcL [facility] Nitrite, UA Negative Negative - Positive [facility] pH, UA 6 5 - 9 [facility] Protein, UA Positive Negative - 2000(20) ++++ mg/dL [facility] Comment on above: 30mg/dL Spec Grav, UA 1.02 1 - 1.03 [facility] Urobilinogen, UA 0.2 0.2 - 12 mg/dL Count includes the [facility] ALL CBC WITH AUTO DIFFon BASOPHILS ABSOLUTE AUTO 0 [facility] Basophils/100 WBC (Bld) 0.3 % 0.2 - 2.0 % [facility] Eosinophils/100 WBC (Bld) 2 % 0.9 - 7.0 % [facility] Erythrocyte distribution width (RBC) [Ratio] 13.8 % 11.0 - 15.0 % [facility] Hematocrit (Bld) [Volume fraction] 29.9 % Low 36.0 - 48.0 % [facility] Hemoglobin (Bld) [Mass/Vol] 9.9 g/dL Low 12.0 - 16.0 g/dL [facility] IMMATURE GRANULOCYTES ABS AUTO 0.28 High [facility] Immature granulocytes/100 WBC (Bld) 2.7 % High 0.0 - 0.5 % [facility] Interpretation and review of laboratory results Abnormal [facility] LYMPHOCYTES ABSOLUTE AUTO 1.3 [facility] Lymphocytes/100 WBC (Bld) 12.9 % Low 20.5 - 60.0 % [facility] MCH (RBC) [Entitic mass] 29.7 pg 26.7 - 34.0 pg [facility] MCHC (RBC) [Mass/Vol] 33.1 g/dL 29.9 - 35.2 g/dL [facility] MCV (RBC) [Entitic vol] 89.8 fL 81.0 - 99.0 fL [facility] MONOCYTES ABSOLUTE AUTO 0.9 High [facility] Monocytes/100 WBC (Bld) 9 % 1.7 - 12.0 % [facility] NEUTROPHILS ABSOLUTE AUTO 7.6 High [facility] Neutrophils/100 WBC (Bld) 73.1 % 43.0 - 75.0 % [facility] Platelet mean volume (Bld) [Entitic vol] 9.3 fL Low 9.5 - 13.5 fL [facility]H EO # 0.2 [facility] TB PLT 238 [facility] TB RBC 3.33 Low [facility] WBC 10.4 [facility] XRAY FOOT MINIMUM 3 VIEWS LE FTon 08-30-2024 XRAY FOOT MINIMUM 3 VIEWS LEFT [facility] Diagnostic Imaging Report EXAM INFORMATION: Examination: [...] Mckenzie M.D. Professional Interpretation by Radiology Reading [facility] RECURRENT VAGINITIS (HTRX)on 08-06-2024 ATOPOBIUM VAGINAE 0 [facility] ATOPOBIUM VAGINAE Not detected [facility] BVAB 2,3 (BACTERIAL VAGINOSIS ASSOCIATED BACTERIA 2, 3); MOBILUNCUS SPP 0 [facility] BVAB 2,3 (BACTERIAL VAGINOSIS ASSOCIATED BACTERIA 2, 3); MOBILUNCUS SPP Not detected [facility] LISA ALBICANS, PARAPSILOSIS, TROPICALIS 0 [facility] LISA ALBICANS, PARAPSILOSIS, TROPICALIS Not detected [facility] LISA GLABRATA 0 [facility] LISA GLABRATA Not detected [facility] LISA KRUSEI 0 [facility] LISA KRUSEI Not detected [facility] CHLAMYDIA TRACHOMATIS 0 [facility] CHLAMYDIA TRACHOMATIS Not detected [facility] GARDNERELLA VAGINALIS 0 [facility] GARDNERELLA VAGINALIS Not detected [facility] Interpretation and review of laboratory results Abnormal [facility] MEGASPHAERA (TYPES 1, 2) 16.791 Abnormal [facility] MEGASPHAERA (TYPES 1, 2) Detected Abnormal [facility] MYCOPLASMA GENITALIUM 0 [facility] MYCOPLASMA GENITALIUM Not detected [facility] NEISSERIA GONORRHOEAE 0 [facility] NEISSERIA GONORRHOEAE Not detected [facility] TRICHOMONAS VAGINALIS 28.349 Abnormal [facility] TRICHOMONAS VAGINALIS Detected Abnormal [facility] US OB GROWTHon 08-04-2024 [place] [address] Ultrasound Report Signed Patient: JOJO HACKETT MR#: [id number] : 1995 Acct:[id number] Age/Sex: 28 / F ADM Date: 08/04/24 Loc: Attending Dr: Mary Robledo D.O. Ordering Physician: Mary Robledo D.O. Date of Service: 08/04/24 Procedure(s): US OB growth Accession Number(s): [id number] cc: Mary Robledo D.O.; Jesu Santiago M.D. [place] [address] Patient Name: JOJO HACKETT MRN: [id number] date: 1995 Sex: F Assigned Patient Location: Current Patient Location: US Accession/Order Number: [id number] Exam Date: 08/04/2024 14:32 Report Date: 08/04/2024 14:36 At the request of: MARY ROBLEDO DO Procedure: US OB growth Ultrasound obstetrical growth examination HISTORY: Inconsistent size and with dates. Atrophy is of the cephalic presentation. The lie is longitudinal. The amniotic fluid is subjectively normal. The heart rate is 158 bpm. The aspirated weight is 648 g with weight percentile of 47%. The biparietal diameter 5.7 cm consistent with 23 weeks 3 days. Head circumference 21.4 cm consistent with 23 weeks 3 days. Abdominal circumference 19.7 cm consistent with 24 weeks 2 days. Femur length 4.2 cm consistent with 23 weeks 5 days. The average gestational age with ultrasound is 23 weeks 5 days. US/US OB growth IMPRESSION: Single live intrauterine gestation 23 weeks 5 days. Impression dictated by: Rhett Maurer M.D.08/04/2024 2:36 PM Dictation Location[facility] Electronically authenticated by: [id number] Y Date: 08/04/2024 14:36 Dictated By: Rhett Maurer D.O. Signed By: 08/04/24 1439 DD/ 35 TD/TT: Evaluator Transfer Students: [facility] Radiology, Radiologist, - 08/04/2024 [place] [address] Ultrasound Report Signed Patient: JOJO HACKETT MR#: [id number] : 1995 Acct:[id number] Age/Sex: 28 / F ADM Date: 08/04/24 Loc: US Attending Dr: Mary Robledo D.O. Ordering Physician: Mary Robledo D.O. Date of Service: 08/04/24 Procedure(s): US OB growth Accession Number(s): [id number] cc: Mary Robledo D.O.; Jeus Santiago M.D. The [place] [address] Patient Name: JOJO HACKETT MRN: [facility]:[id number] date: 1995 Sex: F Assigned Patient Location: Current Patient Location: Accession/Order Number: [id number] Exam Date: 08/04/2024 14:32 Report Date: 08/04/2024 14:36 At the request of: MARY ROBLEDO DO Procedure: US OB growth Ultrasound obstetrical growth examination HISTORY: Inconsistent size and with dates. Atrophy is of the cephalic presentation. The lie is longitudinal. The amniotic fluid is subjectively normal. The heart rate is 158 bpm. The aspirated weight is 648 g with weight percentile of 47%. The biparietal diameter 5.7 cm consistent with 23 weeks 3 days. Head circumference 21.4 cm consistent with 23 weeks 3 days. Abdominal circumference 19.7 cm consistent with 24 weeks 2 days. Femur length 4.2 cm consistent with 23 weeks 5 days. The average gestational age with ultrasound is 23 weeks 5 days. US/US OB growth IMPRESSION: Single live intrauterine gestation 23 weeks 5 days. Impression dictated by: Rhett Maurer M.D.08/04/2024 2:36 PM Dictation Location[facility] Electronically authenticated by: [id number] Y Date: 08/04/2024 14:36 Dictated By: Rhett Maurer D.O. Signed By: 08/04/24 1439 DD/ 143 TD/TT: Evaluator Transfer Students: [facility] Radiology Study observation (narrative) [facility] US OB GROWTHOrdered By: Sarah ologist Radiology on 08-04-2024 [facility] Work Phone: US OB 14+ WEEKS ANATOMY SCAN on 07-07-2024 US OB 14+ WEEKS ANATOMY SCAN EXAM: US OB 14+ WEEKS ANATOMY SCAN HISTORY: anatomy. TECHNIQUE: Two-dimensional transabdominal grayscale [...] II, MD, PHD at 08-Jul-2024 10:38:23 AM [facility] Normal Not Available Comment on above: Order Comment: US OB ANATOMY SINGLE W US OB CERVICAL LENGTH Estimated Date of Delivery: 11/25/24 Gestational Age as of 06/10/2024: 16w0d Urinalysis macro (dipstick) panel (U)on 07-07-2024 Bilirubin, UA Negative Negative - 4(70) +++ mg/dL [facility] Blood, UA Negative Negative - 50 Yovany/mcL [facility] Clarity, UA Clear [facility] Color, UA Yellow [facility] Glucose, UA Negative Negative - 1999(110) ++++ mg/dL [facility] Interpretation and review of laboratory results Normal [facility] Ketones, UA Negative Negative - 160(16) ++++ mg/dL [facility] Leukocytes, UA Negative Negative - 500+++ Jamey/mcL [facility] Nitrite, UA Negative Negative - Positive [facility] pH, UA 7 5 - 9 [facility] Protein, UA Negative Negative - 2000(20) ++++ mg/dL [facility] Spec Grav, UA 1.02 1 - 1.03 [facility] Urobilinogen, UA 0.2 0.2 - 12 mg/dL [facility] Urinalysis macro (dipstick) panel (U)on 06-10-2024 Bilirubin, UA Negative Negative - 4(70) +++ mg/dL [facility] Blood, UA Negative Negative - 50 Yovany/mcL [facility] Clarity, UA Clear [facility] Color, UA Yellow [facility] Glucose, UA Negative Negative - 2000(110) ++++ mg/dL [facility] Interpretation and review of laboratory results Abnormal [facility] Ketones, UA Negative Negative - 160(16) ++++ mg/dL [facility] Leukocytes, UA Positive Negative - 500+++ Jamey/mcL [facility] Comment on above: small Nitrite, UA Negative Negative - Positive [facility] pH, UA 7 5 - 9 [facility] Protein, UA Trace Negative - 2000(20) ++++ mg/dL [facility] Spec Grav, UA 1.025 1 - 1.03 [facility] Urobilinogen, UA 1.0 0.2 - 12 mg/dL Count includes the [facility] ALL CBC WITH AUTO DIFFon BASOPHILS ABSOLUTE AUTO 0 [facility] Basophils/100 WBC (Bld) 0.4 % 0.2 - 2.0 % [facility] Eosinophils/100 WBC (Bld) 2.7 % 0.9 - 7.0 % [facility] Erythrocyte distribution width (RBC) [Ratio] 13.2 % 11.0 - 15.0 % [facility] Hematocrit (Bld) [Volume fraction] 34.1 % Low 36.0 - 48.0 % [facility] Hemoglobin (Bld) [Mass/Vol] 11.5 g/dL Low 12.0 - 16.0 g/dL [facility] IMMATURE GRANULOCYTES ABS AUTO 0.02 [facility] Immature granulocytes/100 WBC (Bld) 0.4 % 0.0 - 0.5 % [facility] Interpretation and review of laboratory results Abnormal [facility] LYMPHOCYTES ABSOLUTE AUTO 1.1 Low [facility] Lymphocytes/100 WBC (Bld) 19.8 % Low 20.5 - 60.0 % [facility] MCH (RBC) [Entitic mass] 30.3 pg 26.7 - 34.0 pg [facility] MCHC (RBC) [Mass/Vol] 33.7 g/dL 29.9 - 35.2 g/dL [facility] MCV (RBC) [Entitic vol] 90 fL 81.0 - 99.0 fL [facility] MONOCYTES ABSOLUTE AUTO 0.6 [facility] Monocytes/100 WBC (Bld) 9.7 % 1.7 - 12.0 % [facility] NEUTROPHILS ABSOLUTE AUTO 3.8 [facility] Neutrophils/100 WBC (Bld) 67 % 43.0 - 75.0 % [facility] Platelet mean volume (Bld) [Entitic vol] 9.7 fL 9.5 - 13.5 fL [facility] TBH EO # 0.2 [facility] TBH PLT 242 [facility] RBC 3.79 Low [facility] TB WBC 5.7 [facility] US OB < 14 WEEKS EARLYon US OB < 14 WEEKS EARLY TITLE OF EXAM: OB Ultrasound: REASON FOR EXAM: Viability. COMPARISON: None TECHNIQUE: [...] age of 14 weeks. Dictated and transcribed 05/27/24/dplima This report has been electronically signed and approved by the interpreting radiologist. Normal Not Available Comment on above: Order Comment: US OB TRANSVAGINAL No LMP recorded. Urinalysis macro (dipstick) panel (U)on 06-12-2023 Bilirubin, UA Negative Negative - 4(70) +++ mg/dL [facility] Blood, UA Negative Negative - 50 Yovany/mcL [facility] Clarity, UA Clear [facility] Color, UA Yellow [facility] Glucose, UA Negative Negative - 2000(110) ++++ mg/dL [facility] Interpretation and review of laboratory results Abnormal [facility] Ketones, UA Negative Negative - 160(16) ++++ mg/dL [facility] Leukocytes, UA Positive Negative - 500+++ Jamey/mcL [facility] Nitrite, UA Negative Negative - Positive [facility] pH, UA 5.5 5 - 9 [facility] Protein, UA Positive Negative - 2000(20) ++++ mg/dL [facility] Spec Grav, UA 1.020 1 - 1.03 [facility] Urobilinogen, UA 1.0 0.2 - 12 mg/dL Count includes the [facility] Pap IG, rfx Aptima HPV, rfx 16/18,45on 06-11-2022 . . Normal [facility] Comment on above: Result Comment: Perf ormed at: WB Performed By: #### P [id number] #### [facility] [address] [address] [address] Jose Elias Strong DIAGNOSIS: Comment Normal [facility] Comment on above: Result Comment: NEGA TIVE FOR INTRAEPITHELIAL LESION OR MALIGNANCY. Performed at: WB Performed By: #### P APHR2A #### [facility] [address] [address] [address] Jose Elias Strong HPV Aptima Negative Normal Negative [facility] Comment on above: Result Comment: This nucleic acid amplification test detects fourteen high-risk HPV types (16,18,31,33,35,39,45,51,52,56,58,59,66,68) without differentiation. Performed at: =G Performed By: #### P [id number] #### [facility] [address] [place] [address] Dr. Jose Elias Strong HPV Genotype Reflex Comment Normal [facility] Comment on above: Result Comment: Crit eria not met, HPV Genotype not performed. Performed at: WB Performed By: #### P APHR2A #### [facility] [address] [place] [address] Dr. Jose Elias Strong Methodology: Comment [facility] Comment on above: Result Comment: This liquid based ThinPrep(R) pap test was screened with the use of an image guided system. Performed at: WB Performed By: #### P APHR2A #### [facility] [address] [place] [address] Dr. Jose Elias Strong Note: Comment Normal [facility] Comment on above: Result Comment: The Pap [...] By: #### P APHR2A #### [facility] [address] [place] [address] Dr. Jose Elias Strong Performed by: Comment Normal [facility] Comment on above: Result Comment: Koffi Hutchinson, Trap Setter (ASCP) Performed at: WB Performed By: #### P APHR2A #### [facility] [address] [address] [address] Jose Elias Strong Specimen adequacy: Comment Normal [facility] Comment on above: Result Comment: Sati sfactory for evaluation. Endocervical and/or squamous metaplastic cells (endocervical component) are present. Performed at: WB Performed By: #### P APHR2A #### [facility] [address] [address] [address] Jose Elias Strong PAP ACOG PANEL 2: 21 to 29on 11-20-2021 . . Normal [facility] Comment on above: Performed By: #### [id number] #### [facility] [address] [place] [address] Dr. Jose Elias Strong Age Gdln ACOG Testing - Normal [facility] Comment on above: Performed By: #### [id number] #### [facility] [address] [place] [address] Dr. Jose Elias Strong DIAGNOSIS: Comment Normal [facility] Comment on above: Result Comment: NEGA TIVE FOR INTRAEPITHELIAL LESION OR MALIGNANCY. REACTIVE CELLULAR CHANGES AND/OR REPAIR ARE PRESENT. Performed By: #### [id number] #### [facility] [address] [place] [address] Dr. Jose Elias Strong Electronically signed by: Comment Normal [facility] Comment on above: Result Comment: Melinda Patel MD, Pathologist Performed By: #### [id number] #### [facility] [address] [place] [address] Dr. Jose Elias Strong Methodology: Comment Normal [facility] Comment on above: Result Comment: This liquid based ThinPrep(R) pap test was screened with the use of an image guided system. Performed By: #### [id number] #### [facility] [address] [place] [address] Dr. Jose Elias Strong Note: Comment Normal [facility] Comment on above: Result Comment: The Pap smear is a screening test designed to aid in the detection of premalignant and malignant conditions of the uterine cervix. It is not a diagnostic procedure and should not be used as the sole means of detecting cervical cancer. Both false-positive and false-negative reports do occur. . Performed By: #### [id number] #### [facility] [address] [place] [address] Dr. Jose Elias Strong Performed by: Comment Normal [facility] Comment on above: Result Comment: Lilian Romero Trap Setter (ASCP) Performed By: #### [id number] #### [facility] [address] [place] [address] Dr. Jose Elias Strong Reflex Criteria: Comment Normal [facility] Comment on above: Result Comment: The HPV DNA reflex criteria were not met with this specimen result therefore, no HPV testing was performed. . Performed By: #### [id number] #### [facility] [address] [place] [address] Dr. Jose Elias Strong Specimen adequacy: Comment Normal [facility] Comment on above: Result Comment: Sati sfactory for evaluation. Endocervical and/or squamous metaplastic cells (endocervical component) are present. Performed By: #### [id number] #### [facility] [address] [place] [address] Dr. Jose Elias Strong CBC W MANUAL DIFFon 08-21-19 22 ANISOCYTOSIS 1+ Normal [facility] Comment on above: Performed By: #### T NS #### [facility] [address] [place] [address] Dr. Jose Elias Strong ATYPICAL LYMPH # Normal [facility] Comment on above: Performed By: #### T NS #### [facility] [address] [place] [address] Dr. Jose Elias Strong ATYPICAL LYMPH % Normal [facility] Comment on above: Performed By: #### T NS #### [facility] [address] [place] [address] Dr. Jose Elias Strong BAND # 0.2 103/ul Normal 0.0-0.3 [facility] Comment on above: Performed By: #### T NS #### [facility] [address] [address] [address] Jose Elias Strong BAND % 1 % Normal 0-5 [facility] Comment on above: Performed By: #### T NS #### [facility] [address] [place] [address] Dr. Jose Elias Strong BASOM # 0.00 103/ul Normal 0.00-0.10 [facility] Comment on above: Performed By: #### T NS #### [facility] [address] [place] [address] Dr. Jose Elias Strong BASOM % 0.0 % Critically low 0.2-2.0 [facility] Comment on above: Performed By: #### T NS #### [facility] [address] [place] [address] Dr. Jose Elias Strong BLAST # Normal [facility] Comment on above: Performed By: #### T NS #### [facility] [address] [place] [address] Dr. Jose Elias Strong BLAST % Normal [facility] Comment on above: Performed By: #### T NS #### [facility] [address] [place] [address] Dr. Jose Elias Strong CORRECTED WBC Normal 4.0-11.0 [facility] Comment on above: Performed By: #### T NS #### [facility] [address] [place] [address] Dr. Jose Elias Strong EOS # 0.00 103/ul Normal 0.00-0.70 [facility] Comment on above: Performed By: #### T NS #### [facility] [address] [place] [address] Dr. Jose Elias Strong EOS% 0.0 % Critically low 0.9-7.0 [facility] Comment on above: Performed By: #### T NS #### [facility] [address] [place] [address] Dr. Jose Elias Strong HCT 27.5 % Critically low 36.0-48.0 [facility] Comment on above: Performed By: #### T NS #### [facility] [address] [address] [address] Jose Elias Strong HGB 8.1 g/dl Critically low 12.0-16.0 [facility] Comment on above: Performed By: #### T NS #### [facility] [address] [address] [address] Jose Elias Strong LYMPHM # 1.62 103/ul Normal 1.20-3.80 [facility] Comment on above: Performed By: #### T NS #### [facility] [address] [address] [address] Jose Elias Strong LYMPHM% 9.0 % Critically low 20.5-60.0 [facility] Comment on above: Performed By: #### T NS #### [facility] [address] [place] [address] Dr. Jose Elias Strong MCH 22.2 pg Critically low 26.7-34.0 [facility] Comment on above: Performed By: #### T NS #### [facility] [address] [place] [address] Dr. Jose Elias Strong MCHC 29.5 g/dl Critically low 29.9-35.2 [facility] Comment on above: Performed By: #### T NS #### [facility] [address] [place] [address] Dr. Jose Elias Strong MCV 75.3 fL Critically low 81.0-99.0 [facility] Comment on above: Performed By: #### T NS #### [facility] [address] [place] [address] Dr. Jose Elias Strong METAMYELOCYTE # Normal [facility] Comment on above: Performed By: #### T NS #### [facility] [address] [address] [address] Jose Elias Strong METAMYELOCYTE % Normal [facility] Comment on above: Performed By: #### T NS #### [facility] [address] [address] [address] Jose Elias Strong MONOM# 1.62 103/ul Critically high 0.30-0.80 [facility] Comment on above: Performed By: #### T NS #### [facility] [address] [place] [address] Dr. Jose Elias Strong MONOM% 9.0 % Normal 1.7-12.0 [facility] Comment on above: Performed By: #### T NS #### [facility] [address] [address] [address] Jose Elias Strong MPV 9.6 fL Normal 9.5-13.5 [facility] Comment on above: Performed By: #### T NS #### [facility] [address] [place] [address] Dr. Jose Elias Strong MYELOCYTE # Normal [facility] Comment on above: Performed By: #### T NS #### [facility] [address] [place] [address] Dr. Jose Elias Strong MYELOCYTE % Normal [facility] Comment on above: Performed By: #### T NS #### [facility] [address] [place] [address] Dr. Jose Elias Strong NRBC Normal [facility] Comment on above: Performed By: #### T NS #### [facility] [address] [place] [address] Dr. Jose Elias Strong PLT 308 103/ul Normal 150-450 [facility] Comment on above: Performed By: #### T NS #### [facility] [address] [place] [address] Dr. Jose Elias Strong RBC 3.65 106/ul Critically low 4.20-5.40 [facility] Comment on above: Performed By: #### T NS #### [facility] [address] [place] [address] Dr. Jose Elias Strong RDW 15.7 % Critically high 11.0-15.0 [facility] Comment on above: Performed By: #### T NS #### [facility] [address] [place] [address] Dr. Jose Elias Strong SEG # 14.58 103/ul Critically high 1.40-6.50 [facility] Comment on above: Performed By: #### T NS #### [facility] [address] [address] [address] Jose Elias Strong SEG % 81.0 % Critically high 43.0-75.0 [facility] Comment on above: Performed By: #### T NS #### [facility] [address] [address] [address] Jose Elias Strong WBC 18.0 103/ul Critically high 4.0-11.0 [facility] Comment on above: Performed By: #### T NS #### [facility] [address] [address] [address] Jose Elias Strong DRUG SCREEN RAPID (URINE)on 08-20-2021 AMP Negative Normal NEGATIVE [facility] Comment on above: Performed By: #### T NS #### [facility] [address] [place] [address] Dr. Jose Elias Strong BAR Negative Normal NEGATIVE [facility] Comment on above: Performed By: #### T NS #### [facility] [address] [address] [address] Jose Elias Strong BUP Negative Normal NEGATIVE [facility] Comment on above: Performed By: #### T NS #### [facility] [address] [address] [address] Jose Elias Strong BZO Negative Normal NEGATIVE [facility] Comment on above: Performed By: #### T NS #### [facility] [address] [place] [address] Dr. Jose Elias Strong PAXTON Negative Normal NEGATIVE [facility] Comment on above: Performed By: #### T NS #### [facility] [address] [place] [address] Dr. Jose Elias Strong CUT-OFFS SEE BELOW Normal [facility] Comment on above: Result Comment: AMP (Amphetamine): [...] By: #### T NS #### [facility] [address] [place] [address] Dr. Jose Elias Strong DRUG CUT HEADER DRUG CLASS TEST SYSTEM CUT-OFF CONCENTRATIONS ARE FOLLOWS: Normal [facility] Comment on above: Performed By: #### T NS #### [facility] [address] [place] [address] Dr. Jose Elias Strong mAMP Negative Normal NEGATIVE [facility] Comment on above: Performed By: #### T NS #### [facility] [address] [place] [address] Dr. Jose Elias Strong MTD Negative Normal NEGATIVE [facility] Comment on above: Performed By: #### T NS #### [facility] [address] [place] [address] Dr. Jose Elias Strong OPI Negative Normal NEGATIVE [facility] Comment on above: Performed By: #### T NS #### [facility] [address] [place] [address] Dr. Jose Elias Strong OXY Negative Normal NEGATIVE [facility] Comment on above: Performed By: #### T NS #### [facility] [address] [place] [address] Dr. Jose Elias Strong PCP Negative Normal NEGATIVE [facility] Comment on above: Performed By: #### T NS #### [facility] [address] [place] [address] Dr. Jose Elias Strong PPX Negative Normal NEGATIVE [facility] Comment on above: Performed By: #### T NS #### [facility] [address] [place] [address] Dr. Jose Elias Strong TCA Negative Normal NEGATIVE [facility] Comment on above: Performed By: #### T NS #### [facility] [address] [place] [address] Dr. Jose Elias Strong THC Negative Normal NEGATIVE [facility] Comment on above: Performed By: #### T NS #### [facility] [address] [address] [address] Jose Elias Strong UA (CLEAN/CATCH) EDUCATION AND TRAINING COORDINATOR/MICRO I F IND.on 08-20-2021 Bilirubin Ql (U) Negative Normal NEGATIVE [facility] Comment on above: Performed By: #### U MICRO, UACSIND #### [facility] [address] [address] [address] Jose Elias Strong Clarity (U) SL CLOUDY Abnormal CLEAR [facility] Comment on above: Performed By: #### U MICRO, UACSIND #### [facility] [address] [address] [address] Jose Elias Strong Color (U) RED Abnormal YELLOW [facility] Comment on above: Performed By: #### U MICRO, UACSIND #### [facility] [address] [place] [address] Dr. Jose Elias Strong Glucose Ql (U) Negative Normal NEGATIVE [facility] Comment on above: Performed By: #### U MICRO, UACSIND #### [facility] [address] [address] [address] Jose Elias Strong Hemoglobin Ql (U) LARGE Abnormal NEGATIVE [facility] Comment on above: Performed By: #### U MICRO, UACSIND #### [facility] [address] [place] [address] Dr. Jose Elias Strong Ketones Ql (U) 15 mg/dl Abnormal NEGATIVE [facility] Comment on above: Performed By: #### U MICRO, UACSIND #### [facility] [address] [address] [address] Jose Elias Strong LEUKOCYTES TRACE Abnormal NEGATIVE [facility] Comment on above: Performed By: #### U MICRO, UACSIND #### [facility] [address] [place] [address] Dr. Jose Elias Strong Nitrite Ql (U) Negative Normal NEGATIVE [facility] Comment on above: Performed By: #### U MICRO, UACSIND #### [facility] [address] [place] [address] Dr. Jose Elias Strong pH (U) 7.0 [pH] Normal 5-9 [facility] Comment on above: Performed By: #### U MICRO, UACSIND #### [facility] [address] [address] [address] Jose Elias Strong SPEC GRAVITY 1.020 Normal 1.005-<=1.025 [facility] Comment on above: Performed By: #### U MICRO, UACSIND #### [facility] [address] [address] [address] Jose Elias Strong UA PROTEIN 30 mg/dl Abnormal NEGATIVE/ TRACE [facility] Comment on above: Performed By: #### U MICRO, UACSIND #### [facility] [address] [address] [address] Jose Elias Strong UR MICRO IND INDICATED Normal [facility] Comment on above: Performed By: #### U MICRO, UACSIND #### [facility] [address] [place] [address] Dr. Jose Elias Strong Urobilinogen Qn (U) 0.2 {Mago'U}/dL Normal 0.2 - 1. 0 [facility] Comment on above: Performed By: #### U MICRO, UACSIND #### [facility] [address] [address] [address] Jose Elias Strong URINE MICROSCOPIC ONLYon BACTERIA NONE SEEN Normal NONE SEEN [facility] Comment on above: Performed By: #### U MICRO, UACSIND #### [facility] [address] [address] [address] Jose Elias Strong Bacteria identified Cx Nom (U) NOT INDICATED Normal The [facility] Comment on above: Performed By: #### U MICRO, UACSIND #### [facility] [address] [address] [address] Jose Elias Strong CAST NONE SEEN Normal NONE SEEN [facility] Comment on above: Performed By: #### U MICRO, UACSIND #### [facility] [address] [address] [address] Jose Elias Strong Crystals LM Nom (Urine sed) NONE SEEN Normal NONE SEEN [facility] Comment on above: Performed By: #### U MICRO, UACSIND #### [facility] [address] [address] [address] Jose Elias Strong Epithelial cells LM Ql (Urine sed) NONE SEEN Normal NONE SEEN /RARE The [facility] Comment on above: Performed By: #### U MICRO, UACSIND #### [facility] [address] [address] [address] Jose Elias Strong MUCOUS NONE SEEN Normal NONE SEEN The [facility] Comment on above: Performed By: #### U MICRO, UACSIND #### [facility] [address] [address] [address] Jose Elias Strong RBC (U) [#/Vol] /uL Abnormal 0-2 The [facility] Comment on above: Performed By: #### U MICRO, UACSIND #### [facility] [address] [place] [address] Dr. Jose Elias Strong WBC 0-2 Abnormal NONE SEEN The [facility] Comment on above: Performed By: #### U MICRO, UACSIND #### [facility] [address] [place] [address] Dr. Jose Elias Strong CBC AUTO DIFFon 08-19-2021 BASO # 0.0 103/ul Normal 0.0-0.1 [facility] Comment on above: Performed By: #### T NS #### [facility] [address] [place] [address] Dr. Jose Elias Strong Basophils/100 WBC (Bld) 0.2 % Normal 0.2-2.0 The [facility] Comment on above: Performed By: #### T NS #### [facility] [address] [place] [address] Dr. Jose Elias Strong EO # 0.1 103/ul Normal 0.0-0.7 The [facility] Comment on above: Performed By: #### T NS #### [facility] [address] [place] [address] Dr. Jose Elias Strong Eosinophils/100 WBC (Bld) 0.7 % Critically low 0.9-7.0 [facility] Comment on above: Performed By: #### T NS #### [facility] [address] [place] [address] Dr. Jose Elias Strong Erythrocyte distribution width (RBC) [Ratio] 15.9 % Critically high 11.0-15.0 [facility] Comment on above: Performed By: #### T NS #### [facility] [address] [place] [address] Dr. Jose Elias Strong Hematocrit (Bld) [Volume fraction] 32.4 % Critically low 36.0-48.0 [facility] Comment on above: Performed By: #### T NS #### [facility] [address] [place] [address] Dr. Jose Elias Strong Hemoglobin (Bld) [Mass/Vol] 9.7 g/dL Critically low 12.0-16.0 [facility] Comment on above: Performed By: #### T NS #### [facility] [address] [place] [address] Dr. Jose Elias Strong IG # 0.19 10e3/ul Critically high 0.00-0.03 [facility] Comment on above: Performed By: #### T NS #### [facility] [address] [place] [address] Dr. Jose Elias Strong IG % 1.4 % Critically high 0.0-0.5 [facility] Comment on above: Performed By: #### T NS #### [facility] [address] [place] [address] Dr. Jose Elias Strong LYMPH # 1.9 103/ul Normal 1.2-3.8 [facility] Comment on above: Performed By: #### T NS #### [facility] [address] [place] [address] Dr. Jose Elias Strong Lymphocytes/100 WBC (Bld) 14.4 % Critically low 20.5-60.0 [facility] Comment on above: Performed By: #### T NS #### [facility] [address] [place] [address] Dr. Jose Elias Strong MANUAL DIFF REQ NO Normal [facility] Comment on above: Performed By: #### T NS #### [facility] [address] [place] [address] Dr. Jose Elias Strong MCH (RBC) [Entitic mass] 22.3 pg Critically low 26.7-34.0 The [facility] Comment on above: Performed By: #### T NS #### [facility] [address] [address] [address] Jose Elias Strong MCHC (RBC) [Mass/Vol] 29.9 g/dL Normal 29.9-35.2 The [facility] Comment on above: Performed By: #### T NS #### [facility] [address] [address] [address] Joes Elias Strong MCV (RBC) [Entitic vol] 74.5 fL Critically low 81.0-99.0 The [facility] Comment on above: Performed By: #### T NS #### [facility] [address] [place] [address] Dr. Jose Elias Strong MONO # 1.4 103/ul Critically high 0.3-0.8 The [facility] Comment on above: Performed By: #### T NS #### [facility] [address] [place] [address] Dr. Jose Elias Strong Monocytes/100 WBC (Bld) 10.1 % Normal 1.7-12.0 The [facility] Comment on above: Performed By: #### T NS #### [facility] [address] [place] [address] Dr. Jose Elias Strong NEUT # 9.8 103/ul Critically high 1.4-6.5 The [facility] Comment on above: Performed By: #### T NS #### [facility] [address] [place] [address] Dr. Jose Elias Strong Neutrophils/100 WBC (Bld) 73.2 % Normal 43.0-75.0 The [facility] Comment on above: Performed By: #### T NS #### [facility] [address] [place] [address] Dr. Jose Elias Strong Platelet mean volume (Bld) [Entitic vol] 10.0 fL Normal 9.5-13.5 The [facility] Comment on above: Performed By: #### T NS #### [facility] [address] [address] [address] Jose Elias Strong PLT 337 103/ul Normal 150-450 The [facility] Comment on above: Performed By: #### T NS #### [facility] [address] [place] [address] Dr. Jose Elias Strong RBC 4.35 106/ul Normal 4.20-5.40 [facility] Comment on above: Performed By: #### T NS #### [facility] [address] [place] [address] Dr. Jose Elias Strong WBC 13.4 103/ul Critically high 4.0-11.0 [facility] Comment on above: Performed By: #### T NS #### [facility] [address] [place] [address] Dr. Jose Elias Strong Covid-19 PCR (CVDTB)on 08-03 SARS-CoV-2 (COVID-19) RNA [place]+probe Ql (Unsp spec) Not detected Normal NOT DETECTED The [facility] Comment on above: Result Comment: When diagnostic [...] for this test is supported by the [place] of Health and Human Service's declaration that [...] By: #### C VDTBH #### [facility] [address] [place] [address] Dr. Jose Elias Strong TYPE AND SCREENon 08-19-2021 TYPE AND SCREEN Negative Normal The [facility] Comment on above: Performed By: #### T NS #### [facility] [address] [address] [address] Jose Elias Strong GROUP B STREP CULTUREon 07-05 S. agalactiae Ag Ql (Unsp spec) Culture Observations: NEGATIVE FOR GROUP B STREPTOCOCCUS. Normal The [facility] Comment on above: Performed By: #### G BSCX #### [facility] [address] [address] [address] Jose Elias Strong UA (CLEAN/CATCH) EDUCATION AND TRAINING COORDINATOR/MICRO I F IND.on 06-28-2021 Bilirubin Ql (U) Negative Normal NEGATIVE The [facility] Comment on above: Performed By: #### U ACSIND, UMICRO #### [facility] [address] [address] [address] Jose Elias Strong Clarity (U) CLEAR Normal CLEAR [facility] Comment on above: Performed By: #### U ACSIND, UMICRO #### [facility] [address] [address] [address] Jose Elias Strong Color (U) LT. YELLOW Normal YELLOW The [facility] Comment on above: Performed By: #### U ACSIND, UMICRO #### [facility] [address] [address] [address] Jose Elias Strong Glucose Ql (U) Negative Normal NEGATIVE The [facility] Comment on above: Performed By: #### U ACSIND, UMICRO #### [facility] [address] [address] [address] Jose Elias Strong Hemoglobin Ql (U) Negative Normal NEGATIVE The [facility] Comment on above: Performed By: #### U ACSIND, UMICRO #### [facility] [address] [address] [address] Jose Elias Strong Ketones Ql (U) Negative Normal NEGATIVE The [facility] Comment on above: Performed By: #### U ACSIND, UMICRO #### [facility] [address] [address] [address] Jose Elias Strong LEUKOCYTES TRACE Abnormal NEGATIVE [facility] Comment on above: Performed By: #### U ACSIND, UMICRO #### [facility] [address] [place] [address] Dr. Jose Elias Strong Nitrite Ql (U) Negative Normal NEGATIVE The [facility] Comment on above: Performed By: #### U LAURENT UMICRO #### [facility] [address] [address] [address] Jose Elias Strong pH (U) 6.5 [pH] Normal 5-9 The [facility] Comment on above: Performed By: #### U LAURENT UMICRO #### [facility] [address] [place] [address] Dr. Jose Elias Strong SPEC GRAVITY 1.015 Normal 1.005-<=1.025 The [facility] Comment on above: Performed By: #### U LAURENT UMICRO #### [facility] [address] [place] [address] Dr. Jose Elias Strong UA PROTEIN Negative Normal NEGATIVE/ TRACE The [facility] Comment on above: Performed By: #### U RODOLFO MANCILLAICRO #### [facility] [address] [place] [address] Dr. Jose Elias Strong UR MICRO IND INDICATED Normal The [facility] Comment on above: Performed By: #### U RODOLFO MANCILLAICRO #### [facility] [address] [place] [address] Dr. Jose Elias Strong Urobilinogen Qn (U) 0.2 {Mago'U}/dL Normal 0.2 - 1. 0 The [facility] Comment on above: Performed By: #### U LAURENT UMICRO #### [facility] [address] [place] [address] Dr. Jose Elias Strong URINE MICROSCOPIC ONLYon AMORPHOUS CRYSTALS FEW Normal The [facility] Comment on above: Performed By: #### U LAURENT UMICRO #### [facility] [address] [place] [address] Dr. Jose Elias Strong BACTERIA TRACE Abnormal NONE SEEN The [facility] Comment on above: Performed By: #### U LAURENT UMICRO #### [facility] [address] [place] [address] Dr. Jose Elias Strong Bacteria identified Cx Nom (U) NOT INDICATED Normal The [facility] Comment on above: Performed By: #### U ACSIND, UMICRO #### [facility] [address] [place] [address] Dr. Jose Elias Strong CAST NONE SEEN Normal NONE SEEN The [facility] Comment on above: Performed By: #### U ACSIND, UMICRO #### [facility] [address] [address] [address] Jose Elias Strong Crystals LM Nom (Urine sed) SEEN Abnormal NONE SEEN The [facility] Comment on above: Performed By: #### U ACSIND, UMICRO #### [facility] [address] [place] [address] Dr. Jose Elias Strong Epithelial cells LM Ql (Urine sed) RARE Normal NONE SEEN /RARE The [facility] Comment on above: Performed By: #### U ACSIND, UMICRO #### [facility] [address] [place] [address] Dr. Jose Elias Strong MUCOUS TRACE Abnormal NONE SEEN The [facility] Comment on above: Performed By: #### U ACSIND, ICRO #### [facility] [address] [place] [address] Dr. Jose Elias Strong RBC 0-2 Normal 0-2 The [facility] Comment on above: Performed By: #### U ACSIND, UMICRO #### [facility] [address] [place] [address] Dr. Jose Elias Strong WBC 2-5 Abnormal NONE SEEN The [facility] Comment on above: Performed By: #### U ACSIND, ICRO #### [facility] [address] [place] [address] Dr. Jose Elias Strong CBC AUTO DIFFon 06-19-2021 BASO # 0.0 103/ul Normal 0.0-0.1 The [facility] Comment on above: Performed By: #### C BC #### [facility] [address] [place] [address] Dr. Jose Elias Strong Basophils/100 WBC (Bld) 0.3 % Normal 0.2-2.0 [facility] Comment on above: Performed By: #### C BC #### [facility] [address] [place] [address] Dr. Jose Elias Strong EO # 0.2 103/ul Normal 0.0-0.7 [facility] Comment on above: Performed By: #### C BC #### [facility] [address] [place] [address] Dr. Jose Elias Strong Eosinophils/100 WBC (Bld) 2.0 % Normal 0.9-7.0 [facility] Comment on above: Performed By: #### C BC #### [facility] [address] [place] [address] Dr. Jose Elias Strong Erythrocyte distribution width (RBC) [Ratio] 13.6 % Normal 11.0-15.0 [facility] Comment on above: Performed By: #### C BC #### [facility] [address] [place] [address] Dr. Jose Elias Strong Hematocrit (Bld) [Volume fraction] 29.4 % Critically low 36.0-48.0 [facility] Comment on above: Performed By: #### C BC #### [facility] [address] [place] [address] Dr. Jose Elias Strong Hemoglobin (Bld) [Mass/Vol] 9.5 g/dL Critically low 12.0-16.0 [facility] Comment on above: Performed By: #### C BC #### [facility] [address] [place] [address] Dr. Jose Elias Strong IG # 0.14 10e3/ul Critically high 0.00-0.03 [facility] Comment on above: Performed By: #### C BC #### [facility] [address] [place] [address] Dr. Jose Elias Strong IG % 1.4 % Critically high 0.0-0.5 [facility] Comment on above: Performed By: #### C BC #### [facility] [address] [place] [address] Dr. Jose Elias Strong LYMPH # 1.6 103/ul Normal 1.2-3.8 The [facility] Comment on above: Performed By: #### C BC #### [facility] [address] [address] [address] Jose Elias Strong Lymphocytes/100 WBC (Bld) 15.5 % Critically low 20.5-60.0 [facility] Comment on above: Performed By: #### C BC #### [facility] [address] [place] [address] Dr. Jose Elias Strong MANUAL DIFF REQ NO Normal The [facility] Comment on above: Performed By: #### C BC #### [facility] [address] [place] [address] Dr. Jose Elias Strong MCH (RBC) [Entitic mass] 26.8 pg Normal 26.7-34.0 The [facility] Comment on above: Performed By: #### C BC #### [facility] [address] [place] [address] Dr. Jose Elias Strong MCHC (RBC) [Mass/Vol] 32.3 g/dL Normal 29.9-35.2 The [facility] Comment on above: Performed By: #### C BC #### [facility] [address] [place] [address] Dr. Jose Elias Strong MCV (RBC) [Entitic vol] 82.8 fL Normal 81.0-99.0 [facility] Comment on above: Performed By: #### C BC #### [facility] [address] [place] [address] Dr. Jose Elias Strong MONO # 1.2 103/ul Critically high 0.3-0.8 The [facility] Comment on above: Performed By: #### C BC #### [facility] [address] [place] [address] Dr. Jose Elias Strong Monocytes/100 WBC (Bld) 12.2 % Critically high 1.7-12.0 The [facility] Comment on above: Performed By: #### C BC #### [facility] [address] [place] [address] Dr. Jose Elias Strong NEUT # 7.0 103/ul Critically high 1.4-6.5 The [facility] Comment on above: Performed By: #### C BC #### [facility] [address] [address] [address] Jose Elias Strong Neutrophils/100 WBC (Bld) 68.6 % Normal 43.0-75.0 [facility] Comment on above: Performed By: #### C BC #### [facility] [address] [address] [address] Jose Elias Strong Platelet mean volume (Bld) [Entitic vol] 9.1 fL Critically low 9.5-13.5 [facility] Comment on above: Performed By: #### C BC #### [facility] [address] [address] [address] Jose Elias Strong PLT 309 103/ul Normal 150-450 [facility] Comment on above: Performed By: #### C BC #### [facility] [address] [address] [address] Jose Elias Strong RBC 3.55 106/ul Critically low 4.20-5.40 [facility] Comment on above: Performed By: #### C BC #### [facility] [address] [address] [address] Jose Elias Strong WBC 10.1 103/ul Normal 4.0-11.0 [facility] Comment on above: Performed By: #### C BC #### [facility] [address] [address] [address] Jose Elias Strong GLYCOHEMOGLOBIN A1Con 2021 ADA RECOMMENDATION ADA THERAPEUTIC TARGET 6.0 - 7.0 ACTION SUGGESTED > 7.0 Normal [facility] Comment on above: Performed By: #### T NS #### [facility] [address] [address] [address] Jose Elias Strong Glucose [Mass/Vol] 97 mg/dL Normal [facility] Comment on above: Performed By: #### T NS #### [facility] [address] [address] [address] Jose Elias Strong HbA1c (Bld) [Mass fraction] 5.0 % Normal <=6.0 [facility] Comment on above: Performed By: #### T NS #### [facility] [address] [address] [address] Jose Elias Strong [place] 10-24-2020 Consent [id number] .00CD:127 [facility] In office Testingon 10-25-19 21 In office Testing [id number]# 1.00CD:127 [facility] Registrationon 10-24-2020 Registration [id number] .00CD:127 [facility] Registration [id number] .00CD:127 [facility] Vital Signs Date Time Vital Sign Value Performing Clinician Facility 10-25-2024 14:49-0400 Body mass index (BMI) [Ratio] 28.43 kg/m2 Erika PENA Work Phone: [facility] 10-25-2024 14:49-0400 Body weight 72.8 kg Erika PENA Work Phone: [facility] 10-25-2024 14:49-0400 Diastolic blood pressure 68 mm[Hg] Erika PENA Work Phone: [facility] 10-25-2024 14:49-0400 Systolic blood pressure 122 mm[Hg] Erika PENA Work Phone: [facility] 10-06-2024 15:02-0400 Body mass index (BMI) [Ratio] 28.9 kg/m2 Mary Venkat DO Work Phone: [facility] 10-06-2024 15:02-0400 Body weight 73.99 kg Mary Venkat DO Work Phone: [facility] 10-06-2024 15:02-0400 Diastolic blood pressure 68 mm[Hg] Mary Venkat DO Work Phone: [facility] 10-06-2024 15:02-0400 Systolic blood pressure 102 mm[Hg] Mary Venkat DO Work Phone: [facility] 2024 15:22-0400 Body mass index (BMI) [Ratio] 28.34 kg/m2 Erika Chan PA Work Phone: [facility] 2024 15:22-0400 Body weight 72.58 kg Erika Chan PA Work Phone: [facility] 2024 15:22-0400 Diastolic blood pressure 66 mm[Hg] Erika Chan PA Work Phone: [facility] 2024 15:22-0400 Systolic blood pressure 98 mm[Hg] Erika Chan PA Work Phone: [facility] 09-08-2024 14:03-0400 Body mass index (BMI) [Ratio] 28.41 kg/m2 Mary Venkat DO Work Phone: [facility] 09-08-2024 14:03-0400 Body weight 72.76 kg Mary Venkat DO Work Phone: [facility] 09-08-2024 14:03-0400 Diastolic blood pressure 70 mm[Hg] Mary Venkat DO Work Phone: [facility] 09-08-2024 14:03-0400 Systolic blood pressure 110 mm[Hg] Mary Venkat DO Work Phone: [facility] 07-07-2024 16:12-0500 Body mass index (BMI) [Ratio] 25.05 kg/m2 Mary Venkat DO Work Phone: [facility] 07-07-2024 16:12-0500 Body weight 64.14 kg Mary Venkat DO Work Phone: [facility] 07-07-2024 16:12-0500 Diastolic blood pressure 72 mm[Hg] Mary Venkat DO Work Phone: [facility] 07-07-2024 16:12-0500 Systolic blood pressure 110 mm[Hg] Mary Venkat DO Work Phone: [facility] 06-10-2024 14:23-0500 Body mass index (BMI) [Ratio] 24.34 kg/m2 Nom Nurse [facility] 06-10-2024 14:23-0500 Body weight 62.32 kg Nom Nurse [facility] 06-10-2024 14:23-0500 Diastolic blood pressure 70 mm[Hg] [facility] Nurse [facility] 06-10-2024 14:23-0500 Systolic blood pressure 110 mm[Hg] Nom Nurse [facility] 05-27-2024 11:01-0500 Body mass index (BMI) [Ratio] 24.09 kg/m2 Mary Venkat DO Work Phone: [facility] 05-27-2024 11:010500 Body weight 61.69 kg Mary Venkat DO Work Phone: [facility] 05-27-2024 11:01-0500 Diastolic blood pressure 72 mm[Hg] Mary Venkat DO Work Phone: [facility] 05-27-2024 11:01-0500 Systolic blood pressure 120 mm[Hg] Mary Venkat DO Work Phone: [facility] 11-27-2023 14:39-0400 Body height 165.1 cm [employer] Arpita Jeff Work Phone: [facility] 11-27-2023 14:39-0400 Body mass index (BMI) [Ratio] 24 kg/m2 [employer] Arpiat Jeff Work Phone: [facility] 11-27-2023 14:39-0400 Body temperature 98 [degF] [employer] Arpita Jeff Work Phone: [facility] 11-27-2023 14:39-0400 Body weight 65.4 kg [employer] Arpita Jeff Work Phone: [facility] 11-27-2023 14:39-0400 Diastolic blood pressure 68 mm[Hg] [employer] Arpita Jeff Work Phone: [facility] 11-27-2023 14:39-0400 Heart rate 87 /min [employer] Arpita Jeff Work Phone: [facility] 11-27-2023 14:39-0400 Respiratory rate 18 /min [employer] Arpita Aguilar Work Phone: [facility] 11-27-2023 14:39-0400 SaO2% (BldA) [Mass fraction] 97 % SLEEVE SEWER-C Arpita Aguilar Work Phone: [facility] 11-27-2023 14:39-0400 Systolic blood pressure 98 mm[Hg] SLEEVE SEWER-C Arpita Aguilar Work Phone: [facility] 06-12-2023 11:02-0500 Body mass index (BMI) [Ratio] 30.26 kg/m2 Mary Venkat DO Work Phone: [facility] 06-12-2023 11:02-0500 Body weight 77.47 kg Mary Venkat DO Work Phone: [facility] 06-12-2023 11:02-0500 Diastolic blood pressure 70 mm[Hg] Mary Venkat DO Work Phone: [facility] 06-12-2023 11:02-0500 Systolic blood pressure 118 mm[Hg] Mary Venkat DO Work Phone: [facility] Encounters Encounter Date Encounter Type Care Provider Facility Start: 10-25-2024 End: 10-25-2024 Office outpatient visit 15 minutes Erika PENA Work Phone: [facility] Comment on above: Third trimester preg jun ([facility]); 35 weeks gestation of ([facility]) Start: 10-25-2024 End: 10-25-2024 Bamboo flowsheet Erika PENA Work Phone: [facility] Start: 10-25-2024 End: 10-25-2024 Bamboo flowsheet Erika PENA Work Phone: [facility] Start: 10-06-2024 End: 10-06-2024 ambulatory MARY VENKAT Not Available Start: 10-06-2024 End: 10-06-2024 Bamboo flowsheet Mary Venkat DO Work Phone: [facility] Start: 10-06-2024 End: 10-06-2024 Bamboo flowsheet Mary Venkat DO Work Phone: [facility] Start: 10-06-2024 End: 10-06-2024 Office outpatient visit 15 minutes Mary Venkat DO Work Phone: [facility] Comment on above: Third trimester preg jun; 32 weeks gestation of ; Herpes simplex; Mood changes; Thyroid disease ([facility]/HCC) Start: 09-27-2024 End: 09-27-2024 Clinisync Result Encounter Mary Venkat DO Work Phone: [facility] Unsolicited Start: 09-27-2024 End: 09-27-2024 Clinisync Result Encounter Mary Venkat DO Work Phone: [facility] Unsolicited Start: 2024 End: 2024 Office outpatient visit 15 minutes Erika Chan PA Work Phone: [facility] Comment on above: 30 weeks gestation o f ; Third trimester ; Trichomonas infection; Other specified hypothyroidism Start: 2024 End: 2024 ambulatory ERIKA CHAN Not Available Start: 09-08-2024 End: 09-08-2024 Bamboo flowsheet Mary Venkat DO Work Phone: [facility] Start: 09-08-2024 End: 09-08-2024 Bamboo flowsheet Mary Venkat DO Work Phone: [facility] Start: 09-08-2024 End: 09-08-2024 Clinisync Result Encounter Mary Venkat DO Work Phone: [facility] Unsolicited Start: 09-08-2024 End: 09-08-2024 Office outpatient visit 15 minutes Mary Venkat DO Work Phone: [facility] Comment on above: Second trimester pre gnancy; 28 weeks gestation of ; Diabetes mellitus screening; size inconsistent with dates Start: 09-08-2024 End: 09-08-2024 ambulatory MARY VENKAT Not Available Start: 08-30-2024 End: 08-30-2024 Emergency department patient visit [facility] Start: 08-04-2024 End: 08-04-2024 Bamboo flowsheet Mary Venkat DO Work Phone: [facility] Start: 08-04-2024 End: 08-06-2024 Bamboo flowsheet Mary Venkat DO Work Phone: [facility] Start: 08-04-2024 End: 08-04-2024 Clinisync Result Encounter Mary Venkat DO Work Phone: [facility] Unsolicited Start: 08-04-2024 End: 08-06-2024 External Result Encounter Mary Venkat DO Work Phone: [facility] Unsolicited Start: 08-04-2024 End: 08-04-2024 ambulatory MARY VENKAT Not Available Start: 07-07-2024 End: 07-07-2024 ambulatory MARY VENKAT Not Available Start: 07-07-2024 End: 07-07-2024 Office outpatient visit 15 minutes Mary Venkat DO Work Phone: [facility] Comment on above: Second trimester pre gnancy; 19 weeks gestation of ; Thyroid disease (CMS/HCC); Antepartum anemia Start: 07-07-2024 End: 07-07-2024 ambulatory MARY VENKAT Not Available Start: 06-10-2024 End: 06-10-2024 Office outpatient visit 5 minutes [facility] Evnkat Nurse [facility] Comment on above: GA: 16w0d Start: 06-10-2024 End: 06-10-2024 ambulatory MARY VENKAT Not Available Start: 05-27-2024 End: 05-27-2024 Clinisync Result Encounter Mary Venkat DO Work Phone: [facility] Unsolicited Start: 05-27-2024 End: 05-27-2024 Clinisync Result Encounter Mary Venkat DO Work Phone: [facility] Unsolicited Start: 05-27-2024 End: 05-27-2024 Office outpatient visit 15 minutes Mary Venkat DO Work Phone: [facility] Comment on above: Amenorrhea; Nausea and vomiting in ; Missed menses; , unspecified gestational age; Encounter for supervision of normal first in first trimester Start: 05-27-2024 End: 05-27-2024 ambulatory MARY VENKAT Not Available Start: 01-22-2024 End: 01-25-2024 Telephone encounter Emy Reyes MA [facility] Start: 11-27-2023 End: 11-27-2023 ambulatory SLEEVE SEWER-C Arpita Jeff Work Phone: [employer] Work Phone: Start: 11-27-2023 End: 11-27-2023 Patient encounter procedure SLEEVE SEWER-C Arpita Jeff Work Phone: [facility] Work Phone: Start: 06-12-2023 End: 06-12-2023 Office outpatient visit 15 minutes Mary Venkat DO Work Phone: [facility] Comment on above: Third trimester preg jun Start: 06-04-2022 End: 06-04-[address] MARY [...] Date Procedure Procedure Detail Performing Clinician Start: 10-25-2024 Urnls dip stick/tabl et rgnt non-auto w/o micrscp Erika PENA Work Phone: Start: 09-27-2024 [facility] UA (CLEAN/CATCH) EDUCATION AND TRAINING COORDINATOR/MICRO IF IND. Mary Venkat DO Work Phone: Start: 2024 Urnls dip stick/tabl et rgnt non-auto w/o micrscp Erika PENA Work Phone: Start: 09-08-2024 ALL CBC WITH AUTO DIFF Mary Venkat DO Work Phone: Start: 08-04-2024 US OB GROWTH Mary Fazi o DO Work Phone: Start: 08-04-2024 RECURRENT VAGINITIS (HTRX) Mary Venkat DO Work Phone: Start: 07-07-2024 Urnls dip stick/tabl et rgnt non-auto w/o micrscp Amry Venkat DO Work Phone: Start: 06-10-2024 Urnls dip stick/tabl et rgnt non-auto w/o micrscp Mary Venkat DO Work Phone: Start: 05-27-2024 ALL CBC WITH AUTO DIFF Mary Venkat DO Work Phone: Start: 06-12-2023 Urnls dip stick/tabl et rgnt non-auto w/o micrscp Mary Venkat DO Work Phone: Start: 08-19-2021 Delivery of Products of Conception, External Approach DR MARY ROBLEDO Plan of Treatment Date Care Activity Detail Author Start: 01-03-2025 Influenza vaccination Influenz a Vaccine (Season Ended) [facility] Start: 10-25-2024 End: 06-23-2026 CULTURE, GROUP B STREP WITH SUSCEPTIBLITY CULTURE, GROUP B STREP WITH SUSCEPTIBLITY Lab Routine Third trimester ([facility]) Expected: 10/25/2024, Expires: 10/25/2025 [facility] Work Phone: Comment on above: Expected: 10/25/2024 , Expires: 10/25/2025 Start: 10-21-2024 End: 10-21-2024 Patient encounter procedure 10/21/2024 8:40 AM EDT Routine [facility] [address] [facility] [place] [id number] Erika Chan, PA [address] [place], [place] [id number] [facility] Start: 10-21-2024 End: 10-21-2024 Professional / ancillary services management 10/21/2024 8:00 AM EDT Ancillary Procedure [facility] [address] [facility] [place] [address] [facility] Start: 10-06-2024 End: 10-06-2024 Patient encounter procedure 10/06/2024 2:00 PM EDT Routine [facility] [address] [facility] [place] [address] Mary Robledo DO [address] [place] [address] [facility] Start: 2024 End: 2024 Patient encounter procedure 2024 2:40 PM EDT Routine [facility] [address] [facility] [place] [address] Erika Chan, PA [address] [place], [place] [address] [place], [place] [id number] [facility] Start: 2024 End: 2024 Professional / ancillary services management 2024 2:00 PM EDT Ancillary Procedure [facility] [address] [place] [address] [facility] Start: 2024 End: 03-24-2025 US biophysical profile w non stress test US biophysical profile w non stress test Imaging Routine 30 weeks gestation of Third trimester Other specified hypothyroidism Expected: 2024 (Approximate), Expires: 03/24/2025 [facility] Work Phone: Comment on above: Expected: 2024 (Approximate), Expires: 03/24/2025 Start: 09-08-2024 End: 09-08-2025 CBC panel - Blood by Automated count CBC Lab Routine Diabetes mellitus screening Expected: 09/08/2024 (Approximate), Expires: 09/08/2025 [facility] Work Phone: Comment on above: Expected: 09/08/2024 (Approximate), Expires: 09/08/2025 Start: 09-08-2024 End: 09-08-2025 Measurement of glucose 1 hour after glucose challenge for glucose tolerance test Glucose tolerance, 1 hour Lab Routine Diabetes mellitus screening Expected: 09/08/2024 (Approximate), Expires: 09/08/2025 [facility] Comment on above: Expected: 09/08/2024 (Approximate), Expires: 09/08/2025 Start: 09-08-2024 End: 01-09-2025 US for US OB follow up transabdominal approach Imaging Routine size inconsistent with dates Expected: 09/08/2024, Expires: 01/09/2025 [facility] Comment on above: Expected: 09/08/2024 , Expires: 01/09/2025 Start: 09-08-2024 End: 09-08-2024 Patient encounter procedure [facility] Comment on above: Arrived Start: 08-04-2024 End: 08-04-2024 Patient encounter procedure [facility] Comment on above: Arrived Start: 08-04-2024 End: 08-04-2024 Professional / ancillary services management 08/04/2024 1:00 PM EDT Ancillary Procedure [facility] [address] [place] [address] [facility] Start: 07-07-2024 End: 07-07-2024 Patient encounter procedure 07/07/2024 3:30 PM EST Routine [facility] [address] [id number] Mary Robledo, DO [address] [place] [address] [facility] Start: 07-07-2024 End: 07-07-2024 Professional / ancillary services management 07/07/2024 2:30 PM EST Ancillary Procedure [facility] [address] [facility] [phone] [facility] Start: 07-07-2024 End: 09-06-2024 Alpha fetoprotein, maternal Alpha fetoprotein, maternal Lab Routine Second trimester Expected: 07/07/2024 (Approximate), Expires: 09/06/2024 [facility] Work Phone: Comment on above: Expected: 07/07/2024 (Approximate), Expires: 09/06/2024 Start: 06-10-2024 End: 06-10-2024 ambulatory 06/10/2024 2:00 PM EST Initial [facility] [address] [place] [phone] [facility] Start: 06-10-2024 End: 06-10-2025 US for US OB 14+ weeks anatomy scan Imaging Routine Screening, , for anatomic survey Expected: 06/10/2024, Expires: 06/10/2025 [facility] Work Phone: Comment on above: Expected: 06/10/2024 , Expires: 06/10/2025 Start: 05-27-2024 End: 05-27-2025 ABO/Rh ABO/Rh Lab Routine Amenorrhea Missed menses , unspecified gestational age Encounter for supervision of normal first in first trimester Expected: 05/27/2024 (Approximate), Expires: 05/27/2025 [facility] Comment on above: Expected: 05/27/2024 (Approximate), Expires: 05/27/2025 Start: 05-27-2024 End: 05-27-2025 Blood type and Indirect antibody screen panel - Blood Type and screen Lab Routine Amenorrhea Missed menses , unspecified gestational age Encounter for supervision of normal first in first trimester Expected: 05/27/2024 (Approximate), Expires: 05/27/2025 [facility] Comment on above: Expected: 05/27/2024 (Approximate), Expires: 05/27/2025 Start: 05-27-2024 End: 05-27-2025 Drugs of abuse panel - Urine by Screen method Rapid drug screen, urine Lab Routine Amenorrhea Missed menses , unspecified gestational age Encounter for supervision of normal first in first trimester Expected: 05/27/2024 (Approximate), Expires: 05/27/2025 [facility] Comment on above: Expected: 05/27/2024 (Approximate), Expires: 05/27/2025 Start: 05-27-2024 End: 05-27-2025 Transferrin [Mass/volume] in Serum or Plasma Transferrin Lab Routine Amenorrhea Missed menses , unspecified gestational age Encounter for supervision of normal first in first trimester Expected: 05/27/2024 (Approximate), Expires: 05/27/2025 [facility] Comment on above: Expected: 05/27/2024 (Approximate), Expires: 05/27/2025 Start: 03-30-2024 End: 03-30-2024 Patient encounter procedure 03/30/2024 2:00 PM EST Office Visit [facility] [address] [phone] Mary Robledo DO [address] [place] [address] [place] [address] [facility] Start: 01-04-2024 Influenza vaccination Influenza Vacc ine (#1) [facility] Start: 06-24-2023 End: 06-24-2023 Patient encounter procedure 06/24/2023 1:00 PM EST Routine [facility] [address] [facility] [phone] Erika Chan PA [address] [place] [address] [place] [address] [facility] Bacteria identified in Urine by Culture Urine culture Microbiology Routine Amenorrhea Missed menses , unspecified gestational age Encounter for supervision of normal first in first trimester Ordered: 05/27/2024 [facility] Comment on above: Ordered: 05/27/2024 CBC W Auto Different ial panel - Blood CBC and differential Lab Routine Amenorrhea Missed menses , unspecified gestational age Encounter for supervision of normal first in first trimester Ordered: 05/27/2024 [facility] Comment on above: Ordered: 05/27/2024 CBC W Auto Different ial panel - Blood CBC and differential Lab Routine Antepartum anemia Ordered: 07/07/2024 [facility] Comment on above: Ordered: 07/07/2024 CHLAMYDIA TRACHOMATI S (GENITO/STI) CHLAMYDIA TRACHOMATIS (GENITO/STI) Lab Routine Trichomonas infection Ordered: 2024 [facility] Comment on above: Ordered: 2024 Ferritin [Mass/volum e] in Serum or Plasma Ferritin Lab Routine Amenorrhea Missed menses , unspecified gestational age Encounter for supervision of normal first in first trimester Ordered: 05/27/2024 [facility] Comment on above: Ordered: 05/27/2024 Hemoglobin A1c/Hemoglobin.total in Blood Hemoglobin A1c Lab Routine Amenorrhea Missed menses , unspecified gestational age Encounter for supervision of normal first in first trimester Ordered: 05/27/2024 [facility] Comment on above: Ordered: 05/27/2024 Hepatitis B virus surface Ag [Presence] in Serum or Plasma by Immunoassay Hepatitis B surface antigen Lab Routine Amenorrhea Missed menses , unspecified gestational age Encounter for supervision of normal first in first trimester Ordered: 05/27/2024 [facility] Comment on above: Ordered: 05/27/2024 Hepatitis C virus Ab [Presence] in Serum or Plasma by Immunoassay Hepatitis C antibody Lab Routine Amenorrhea Missed menses , unspecified gestational age Encounter for supervision of normal first in first trimester Ordered: 05/27/2024 [facility] Comment on above: Ordered: 05/27/2024 HIV-1/HIV-2 antigen/antibody combination immunoassay HIV-1 and HIV-2 antibodies Lab Routine Amenorrhea Missed menses , unspecified gestational age Encounter for supervision of normal first in first trimester Ordered: 05/27/2024 [facility] Comment on above: Ordered: 05/27/2024 Measurement of gluco se 1 hour after glucose challenge for glucose tolerance test GTT, 1 hour Lab Routine Amenorrhea Missed menses , unspecified gestational age Encounter for supervision of normal first in first trimester Ordered: 05/27/2024 [facility] Comment on above: Ordered: 05/27/2024 Neisseria gonorrhoea e DNA [Presence] in Unspecified specimen by [place] with probe detection Neisseria gonorrhea DNA probe, direct Lab Routine Trichomonas infection Ordered: 2024 [facility] Comment on above: Ordered: 2024 Reagin Ab [Presence] in Serum by RPR RPR Lab Routine Amenorrhea Missed menses , unspecified gestational age Encounter for supervision of normal first in first trimester Ordered: 05/27/2024 [facility] Comment on above: Ordered: 05/27/2024 Rubella antibody, IgG Rubella an tibody, IgG Lab Routine Amenorrhea Missed menses , unspecified gestational age Encounter for supervision of normal first in first trimester Ordered: 05/27/2024 [facility] Comment on above: Ordered: 05/27/2024 SURESWAB(R) ADVANCED VAGINITIS PLUS, TMA SURESWAB(R) ADVANCED VAGINITIS PLUS, TMA Pathology and Cytology Routine Trichomonas infection Ordered: 2024 [facility] Work Phone: Comment on above: Ordered: 2024 Thyrotropin [Units/volume] in Serum or Plasma TSH Lab Routine Amenorrhea Missed menses , unspecified gestational age Encounter for supervision of normal first in first trimester Ordered: 05/27/2024 [facility] Work Phone: Comment on above: Ordered: 05/27/2024 Thyrotropin [Units/volume] in Serum or Plasma TSH Lab Routine Thyroid disease (CMS/HCC) Ordered: 07/07/2024 [facility] Comment on above: Ordered: 07/07/2024 End: 01-06-2025 US for US OB follow up transabdominal approach Imaging Routine Thyroid disease (CMS/HCC) 2 Occurrences starting 10/06/2024 until 01/06/2025 [facility] Work Phone: Comment on above: 2 Occurrences starti ng 10/06/2024 until 01/06/2025 Immunizations Immunization Date Immunization Notes Care Provider Oanh marks 03-02-2015 influenza virus vacc ine, unspecified formulation Mary Robledo DO Work Phone: [facility] Payers Date Payer Category Payer Medicaid [employer] [place] [id number] 2022-Present [address] [place] [address] [id number] 2022 Private Health Insurance [facility] MEDICAID [id number] 2022 Medicaid [id number] 1995 Unknown [id number] 2..840.1.850342.3.579.2. 593 1995 Unknown [id number] 2.840.1.063156.3.579.2. 593 1995 Unknown [id number] 2..840.1.690759.3.579.2. 593 1995 Unknown [id number] 2.16840.1.180748.3.579.2. 593 1995 Unknown [id number] 2..840.1.481672.3.579.2. 593 1995 Unknown [id number] 2.16.840.1.451792.3.579.2. 593 1995 Unknown [id number] 2.16.840.1.666693.3.579.2. 593 1995 Unknown [id number] 2.16.840.1.981994.3.579.2. 593 1995 Unknown [id number] 2.16.840.1.711323.3.579.2. 1213 1995 Unknown [id number] 2.16.840.1.799068.3.579.2. 1259 1995 Unknown [id number] 2.16.840.1.577638.3.579.2. 1258 1995 Unknown [id number] 2.16.840.1.591343.3.579.2. 9 1995 Unknown [id number] 2.16.840.1.438664.3.579.2. 1258 1995 Unknown [id number] 2.16.840.1.365528.3.579.2. 9 1995 Unknown [id number] 2.16.840.1.532470.3.579.2. 1258 1995 Unknown [id number] 2.16.840.1.521094.3.579.2. 9 1995 Unknown [id number] 2.16.840.1.256300.3.579.2. 1258 1995 Unknown [id number] 2.16.840.1.479596.3.579.2. 1258 1995 Unknown [id number] 2.16.840.1.302774.3.579.2. 9 1959 Unknown [id number] Social History Date Type Detail Facility Start: 10-21-2022 End: 11-27-2023 Tobacco smoking status WIIS Never smoked tobacco [facility] Start: 10-21-2022 Tobacco use and exposure Smoke less tobacco non-user [facility] Start: 06-12-2023 End: 08-04-2024 Alcohol intake Lifetime non-drinker (finding) [facility] Start: 10-21-2022 End: 05-27-2024 History of [address] [facility] Start: 10-21-2022 End: 05-27-[address] [facility] Start: 11-11-2022 [facility] Start: 1995 Sex Assigned At Female [facility] Start: 10-20-2022 Gender identity Identifies as female gender (finding) [facility] Start: 10-20-2022 Sexual orientation Bisexual (finding ) [facility] Start: 11-27-2023 With Spouse/Significant Other [facility] Start: 11-27-2023 0 [facility] Start: 11-27-2023 Denies Use [facility] Goals Date Patient Goal Desired Activity /State Personal health goal Clinical Notes 06-12-2023 to 10-25-2024 BECKY Souza - 10/25/2024 2:20 PM Kirk Blair LPN - 10/06/2024 2:00 PM BECKY Ram - 2024 2:40 PM Kirk Blair LPN - 09/08/2024 1:50 PM Ruddy Segura LPN - 06/10/2024 2:00 PM EST Note Date & Type Note Facility 10-25-2024 History of Presen t illness Narrative Reason [...] Ambulatory Problems Diagnosis Date Noted Acute asthma ([facility]) 12/03/2022 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 12/03/2022 Neck swelling 08/19/2022 Schizoaffective disorder ([facility]) 12/03/2022 Resolved Ambulatory Problems Diagnosis Date Noted No Resolved Ambulatory Problems Past Medical History: Diagnosis Date BMI 24.0-24.9, adult Depot contraception Encounter for IUD insertion Encounter for Papanicolaou cervical smear to confirm findings of recent normal smear following initial abnormal smear Hypothyroidism (acquired) Intrauterine device surveillance Schizo-affective psychosis ([facility]) Urine test negative HISTORY PAST MEDICAL HISTORY SOCIAL HISTORY Past Medical History: Diagnosis Date Acute asthma ([facility]) BMI 24.0-24.9, adult Depot contraception Encounter for IUD insertion Encounter for Papanicolaou cervical smear to confirm findings of recent normal smear following initial abnormal smear Hypothyroidism (acquired) Intrauterine device surveillance 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 Weight as of this encounter: 160 lb 8 oz. BP: 122/68 Patient's last menstrual period was 02/10/2024. ASSESSMENT & PLAN ICD-10-CM 1. Third trimester ([facility]) Z34.93 CULTURE, GROUP B STREP WITH SUSCEPTIBLITY CULTURE, GROUP B STREP WITH SUSCEPTIBLITY POCT urinalysis dipstick manually resulted 2. 35 weeks gestation of ([facility]) Z3A.35 Return OB: Patient presents today [...] of: BECKY Souza documented in this encounter [facility] 10-06-2024 History of Presen t illness Narrative Reason [...] 28-0.8 MG tablet 1 tablet, Oral, Daily valACYclovir (VALTREX) 500 mg, Oral, Daily ALLERGIES Allergies Allergen Reactions Bee Venom Hives Iodine Hives Nickel Hives Amoxicillin Unknown Bee Pollen Unknown Latex Unknown Penicillin G Unknown Shellfish-Derived Products Unknown PROBLEMS Active Ambulatory Problems Diagnosis Date Noted Acute asthma ([facility]) 12/03/2022 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 12/03/2022 Neck swelling 08/19/2022 Schizoaffective disorder ([facility]) 12/03/2022 Resolved Ambulatory Problems Diagnosis Date Noted No Resolved Ambulatory Problems Past Medical History: Diagnosis Date BMI 24.0-24.9, adult Depot contraception Encounter for IUD insertion Encounter for Papanicolaou cervical smear to confirm findings of recent normal smear following initial abnormal smear Hypothyroidism (acquired) ([facility]) Intrauterine device surveillance Schizo-affective psychosis ([facility]) Urine test negative HISTORY PAST MEDICAL HISTORY SOCIAL HISTORY Past Medical History: Diagnosis Date Acute asthma ([facility]) BMI 24.0-24.9, adult Depot contraception Encounter for IUD insertion Encounter for Papanicolaou cervical smear to confirm findings of recent normal smear following initial abnormal smear Hypothyroidism (acquired) ([facility]) Intrauterine device surveillance 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 Exam conducted with a box finisher present. Vitals: Estimated body mass index is 28.9 kg/m as calculated from the following: Height as of 06/04/22: 5' 3 . Weight as of this encounter: 163 lb 1.9 oz. BP: 102/68 Patient's last menstrual period was 02/10/2024. ASSESSMENT & PLAN ICD-10-CM 1. Third trimester Z34.93 2. 32 weeks gestation of Z3A.32 3. Herpes simplex B00.9 valACYclovir (Valtrex) 500 MG tablet Return OB: Patient presents today for a routine obstetrics appointment. Patient is currently 32w6d . Patient states she is doing well but has complaints of being tired due to current . Patient has verbalizes frequent movement. labor precautions was discussed/given and patient was instructed to perform kick counts three times a day. Pt having stress and in tears- discussed medication with pt in detail. Discussed adding medication 2 weeks before delivery. No orders of the defined types were placed in this encounter. Follow Up: Patient is to return to office in 2 week for routine OB appointment. Documented by Kay Blair LPN on behalf of: Mary Robledo DO documented in this encounter [facility] 2024 History of Presen t illness Narrative Reason for Appointment: Patient ID: Jojo Hackett is a 29 y.o. female who presents for No chief complaint on file. Patient presents today for STD Check. and Return OB appointment. MEDICATIONS Current Outpatient Medications [...] 28-0.8 MG tablet 1 tablet, Oral, Daily ALLERGIES Allergies Allergen Reactions Bee Venom Hives Iodine Hives Nickel Hives Amoxicillin Unknown Bee Pollen Unknown Latex Unknown Penicillin G Unknown Shellfish-Derived Products Unknown PROBLEMS Active Ambulatory Problems Diagnosis Date Noted Acute asthma ([facility]) 12/03/2022 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 12/03/2022 Neck swelling 08/19/2022 Schizoaffective disorder ([facility]) 12/03/2022 Resolved Ambulatory Problems Diagnosis Date Noted No Resolved Ambulatory Problems Past Medical History: Diagnosis Date BMI 24.0-24.9, adult Depot contraception Encounter for IUD insertion Encounter for Papanicolaou cervical smear to confirm findings of recent normal smear following initial abnormal smear Hypothyroidism (acquired) ([facility]) Intrauterine device surveillance Schizo-affective psychosis ([facility]) Urine test negative HISTORY PAST MEDICAL HISTORY SOCIAL HISTORY Past Medical History: Diagnosis Date Acute asthma ([facility]) BMI 24.0-24.9, adult Depot contraception Encounter for IUD insertion Encounter for Papanicolaou cervical smear to confirm findings of recent normal smear following initial abnormal smear Hypothyroidism (acquired) ([facility]) Intrauterine device surveillance 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 She is well-developed. Genitourinary: Vulva normal. Cardiovascular: Rate and Rhythm: Normal rate and [...] nursing note reviewed. Exam conducted with a box finisher present. Vitals: Estimated body mass index is 28.34 kg/m as calculated from the following: Height as of 06/04/22: 5' 3 . Weight as of this encounter: 160 lb. BP: 98/66 Patient's last menstrual period was 02/10/2024. ASSESSMENT & PLAN ICD-10-CM 1. 30 weeks gestation of Z3A.30 US biophysical profile w non stress test POCT urinalysis dipstick manually resulted 2. Third trimester Z34.93 US biophysical profile w non stress test 3. Trichomonas infection A59.9 SURESWAB(R) ADVANCED VAGINITIS PLUS, TMA Neisseria gonorrhea DNA probe, direct CHLAMYDIA TRACHOMATIS (GENITO/STI) CANCELED: SURESWAB(R) ADVANCED VAGINITIS PLUS, TMA CANCELED: CHLAMYDIA TRACHOMATIS (GENITO/STI) CANCELED: Neisseria gonorrhea DNA probe, direct 4. Other specified hypothyroidism E03.8 US biophysical profile w non stress test Return OB: Patient presents today for a routine obstetrics appointment. Patient is currently 30w5d . Patient states she is doing well but has complaints of being tired due to current . Patient has verbalizes frequent movement. labor precautions was discussed/given and patient was instructed to perform kick counts three times a day. ALISIA obtained. Pt has 3 hour scheduled for tomorrow. Orders Placed This Encounter Procedures US biophysical profile w non stress test Neisseria gonorrhea DNA probe, direct CHLAMYDIA TRACHOMATIS (GENITO/STI) POCT urinalysis dipstick manually resulted Follow Up: Patient is to return to office in 2 week for routine OB appointment. Documented by Kay Blair LPN on behalf of: BECKY Souza documented in this encounter [facility] 09-08-2024 History of Presen t illness Narrative Reason for Appointment: Patient ID: Jojo Hackett is a 28 y.o. female who presents for Routine Visit Patient presents today for Return OB appointment. MEDICATIONS Current Outpatient Medications Medication Instructions levothyroxine (SYNTHROID) 100 mcg, Oral, Daily before breakfast metoclopramide (Reglan) 10 MG tablet TAKE 1 TABLET BY MOUTH 30 MINUTES PRIOR TO MEALS IN THE MORNING, AT NOON, AND IN THE EVENING NEEDED FOR NAUSEA metroNIDAZOLE (FLAGYL) 500 mg, Oral, 2 times daily, Do not drink alcohol while taking this medication ondansetron (ZOFRAN) 4 mg, Oral, Every 6 hours PRN, Take 1 tablet by mouth every 6 hours as needed for nausea. 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 12/03/2022 Neck swelling 08/19/2022 Schizoaffective disorder ([facility]) 12/03/2022 Resolved Ambulatory Problems Diagnosis Date Noted No Resolved Ambulatory Problems Past Medical History: Diagnosis Date BMI 24.0-24.9, adult Depot contraception Encounter for IUD insertion Encounter for Papanicolaou cervical smear to confirm findings of recent normal smear following initial abnormal smear Hypothyroidism (acquired) ([facility]) Intrauterine device surveillance Schizo-affective psychosis ([facility]) Urine test negative HISTORY PAST MEDICAL HISTORY SOCIAL HISTORY Past Medical History: Diagnosis Date Acute asthma ([facility]) BMI 24.0-24.9, adult Depot contraception Encounter for IUD insertion Encounter for Papanicolaou cervical smear to confirm findings of recent normal smear following initial abnormal smear Hypothyroidism (acquired) (CMS/HCC) Intrauterine device surveillance 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 Exam conducted with a box finisher present. Vitals: Estimated body mass index is 28.41 kg/m as calculated from the following: Height as of 06/04/22: 5' 3 . Weight as of this encounter: 160 lb 6.4 oz. BP: 110/70 Patient's last menstrual period was 02/10/2024. ASSESSMENT & PLAN ICD-10-CM 1. Second trimester Z34.92 2. 28 weeks gestation of Z3A.28 3. Diabetes mellitus screening Z13.1 CBC Glucose tolerance, 1 hour CBC Glucose tolerance, 1 hour 4. size inconsistent with dates O26.849 US OB follow up transabdominal approach Return OB: Patient presents today for a routine obstetrics appointment. Patient is currently 28w6d . Patient states she is doing well but has complaints of being tired due to current . Patient has verbalizes frequent movement. labor precautions was discussed/given and patient was instructed to perform kick counts three times a day. Orders Placed This Encounter Procedures US OB follow up transabdominal approach CBC Glucose tolerance, 1 hour Follow Up: Patient is to return to office in 2 week for routine OB appointment. Documented by Kay Blair LPN on behalf of: Mary Robledo DO documented in this encounter [facility] 07-07-2024 History of Presen t illness Narrative Reason for Appointment: Patient ID: Jojo Hackett is a 28 y.o. female who presents for Routine Visit Patient presents today for Return OB appointment. MEDICATIONS Current Outpatient Medications Medication Instructions iron polysaccharides (PROFE) 391.3 mg, Oral, Daily levothyroxine (SYNTHROID) 100 mcg, Oral, Daily before breakfast metoclopramide (REGLAN) 10 mg, Oral, 3 times daily before meals, Take 1 tablet by mouth 30 minutes prior to meals 3 times daily as needed for nausea. ondansetron (ZOFRAN) 4 mg, Oral, Every 6 hours PRN, Take 1 tablet by mouth every 6 hours as needed for nausea. 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 12/03/2022 Neck swelling 08/19/2022 Schizoaffective disorder ([facility]) 12/03/2022 Resolved Ambulatory Problems Diagnosis Date Noted No Resolved Ambulatory Problems Past Medical History: Diagnosis Date BMI 24.0-24.9, adult Depot contraception Encounter for IUD insertion Encounter for Papanicolaou cervical smear to confirm findings of recent normal smear following initial abnormal smear Hypothyroidism (acquired) ([facility]) Intrauterine device surveillance Schizo-affective psychosis ([facility]) Urine test negative HISTORY PAST MEDICAL HISTORY SOCIAL HISTORY Past Medical History: Diagnosis Date Acute asthma ([facility]) BMI 24.0-24.9, adult Depot contraception Encounter for IUD insertion Encounter for Papanicolaou cervical smear to confirm findings of recent normal smear following initial abnormal smear Hypothyroidism (acquired) ([facility]) Intrauterine device surveillance 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 Exam conducted with a box finisher present. Vitals: Estimated body mass index is 25.05 kg/m as calculated from the following: Height as of 06/04/22: 5' 3 . Weight as of this encounter: 141 lb 6.4 oz. BP: 110/72 Patient's last menstrual period was 02/10/2024. ASSESSMENT & PLAN ICD-10-CM 1. Second trimester Z34.92 POCT urinalysis dipstick manually resulted Alpha fetoprotein, maternal Alpha fetoprotein, maternal CANCELED: Alpha fetoprotein, maternal CANCELED: Alpha fetoprotein, maternal 2. 19 weeks gestation of Z3A.19 POCT urinalysis dipstick manually resulted CANCELED: Alpha fetoprotein, maternal CANCELED: Alpha fetoprotein, maternal 3. Thyroid disease (CMS/HCC) E07.9 TSH levothyroxine (Synthroid) 100 MCG tablet 4. Antepartum anemia O99.019 CBC and differential Return OB: Patient presents today for a routine obstetrics appointment. Patient is currently 19w6d . Patient states she is doing well but has complaints of being tired due to current . Patient has verbalizes frequent movement. labor precautions was discussed/given and patient was instructed to perform kick counts three times a day. Patient with history of hypothyroidism with TSH at 7.047. We will increase her TSH dose to 100 mcg and will repeat every 4 weeks. Patient is concerned with history of anemia in with 05/28 Hgb 11.5 Hematocrit 34.1 and a repeat CBC is ordered. Orders Placed This Encounter Procedures Alpha fetoprotein, maternal TSH CBC and differential POCT urinalysis dipstick manually resulted Follow Up: Patient is to return to office in 4 week for routine OB appointment. Documented by Mary Rdz NP on behalf of: Mary Robledo DO documented in this encounter [facility] 06-10-2024 History of Presen t illness Narrative Reason for Appointment: Patient ID: Jojo Hackett is a 28 y.o. female who presents for Amenorrhea Patient presents today for a Nurse OB Intake appointment. Patient is 16w0d with a Estimated Date of Delivery: 11/25/24 OB History Para Term AB Living 14 3 0 10 3 SAB IAB Ectopic Multiple Live Births 10 3 # Outcome Date GA Lbr Jamie/2nd Weight Sex Type Anes PTL Lv 14 Current 13 Para 07/15/23 F CS-Unspec N WONG 12 2023 11 SAB 2023 10 Para 08/19/21 M Vag-Spont N WONG 9 SAB 02/17/20 8 SAB 05/04/19 7 Para 06/05/16 7 lb F Vag-Spont WONG 6 SAB 10/2014 5 SAB 4 SAB 3 SAB 2 SAB 1 SAB Current Medications: has a current medication list which includes the following prescription(s): levothyroxine, metoclopramide, ondansetron odt, iron polysaccharides, ondansetron, and vitamins. 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 12/03/2022 Neck swelling 08/19/2022 Schizoaffective disorder ([facility]) 12/03/2022 Resolved Ambulatory Problems Diagnosis Date Noted No Resolved Ambulatory Problems Past Medical History: Diagnosis Date BMI 24.0-24.9, adult Depot contraception Encounter for IUD insertion Encounter for Papanicolaou cervical smear to confirm findings of recent normal smear following initial abnormal smear Hypothyroidism (acquired) ([facility]) Intrauterine device surveillance Schizo-affective psychosis ([facility]) Urine test negative Family History Problem Relation Name Age of Onset Heart disease Mother Mental illness Mother COPD Mother Multiple sclerosis Mother Multiple sclerosis Maternal Grandmother Social History Tobacco Use Smoking status: Never Smokeless tobacco: Never Substance Use Topics Alcohol use: Never Drug use: Never Past Surgical History: Procedure Laterality Date SECTION, LOW TRANSVERSE 07/15/2023 PAP SMEAR 11/14/2021 negative TONSILLECTOMY 11/19/2022 Allergies Allergen Reactions Bee Venom Hives Iodine Hives Nickel Hives Amoxicillin Unknown Bee Pollen Unknown Latex Unknown Penicillin G Unknown Shellfish-Derived Products Unknown Vitals: Estimated body mass index is 24.34 kg/m as calculated from the following: Height as of 06/04/22: 5' 3 . Weight as of this encounter: 137 lb 6.4 oz. BP: 110/70 Patient's last menstrual period was 02/10/2024. Assessment/Plan Diagnoses and all orders for this visit: 16 weeks gestation of - Vit-Fe Fumarate-FA ( Vitamins) 28-0.8 MG tablet; Take 1 tablet by mouth Daily - iron polysaccharides (ProFe) 391.3 (180 Fe) MG capsule; Take 1 capsule (391.3 mg) by mouth Daily Screening, , for anatomic survey - US OB 14+ weeks anatomy scan; Future Nausea - ondansetron (Zofran) 4 MG tablet; Take 1 tablet (4 mg) by mouth every 6 (six) hours if needed for nausea or vomiting for up to 30 doses Take 1 tablet by mouth every 6 hours as needed for nausea. Nurse Note: OB Intake: Patient presents today for first OB visit. Patients history has been reviewed in great detail including any potential risks. Patient signed consent forms and patient desires testing in both trimesters. Patient currently has no complaints and has been advised to drink 6-8 glasses of water a day, eat no raw or undercooked meat, and stay away from [facility]. Patient has also been advised to not change litter boxes and eat 6 small meals a day. Patient has been consulted regarding the do's and don'ts of . Patient was given labs and all questions and concerns were answered. Scripts sent for , iron and zofran for the patient. Patient was given Anatomy Scan to schedule prior to next appointment. Follow Up: Patient is to return in 4 weeks for routine OB appointment. Follow Up: Patient is to have labs drawn at directed and return to office for initial OB appointment with provider. Patient may call office as needed with any concerns or questions. Nurse Visit Completed by: Ritu Segura LPN documented in this encounter [facility] 05-27-2024 History of Presen t illness Narrative Reason for Appointment: Patient ID: Jojo Hackett is a 28 y.o. female who presents for Amenorrhea (Pt present today due not having a menstrual cycle since February. Pt was also given a US to have done prior to visit. Pt was found to be 15 weeks and 2 days . ) Patient presents today for Acute Visit. MEDICATIONS Current Outpatient Medications Medication Instructions docusate sodium (COLACE) 100 mg, Oral, 2 times daily PRN ibuprofen 800 mg, Oral, Every 6 hours PRN levothyroxine (SYNTHROID) 25 mcg, Oral, Daily before breakfast metoclopramide (REGLAN) 10 mg, Oral, 3 times daily before meals, Take 1 tablet by mouth 30 minutes prior to meals 3 times daily as needed for nausea. ondansetron ODT (ZOFRAN-ODT) 4 mg, Oral, Every 6 hours PRN sertraline (ZOLOFT) 50 mg, Oral, Daily ALLERGIES Allergies Allergen Reactions Bee Venom Hives Iodine Hives Nickel Hives Amoxicillin Unknown Bee Pollen Unknown Latex Unknown Penicillin G Unknown Shellfish-Derived Products Unknown PROBLEMS Active Ambulatory Problems Diagnosis Date Noted Acute asthma ([facility]) 12/03/2022 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 12/03/2022 Neck swelling 08/19/2022 Schizoaffective disorder ([facility]) 12/03/2022 Resolved Ambulatory Problems Diagnosis Date Noted No Resolved Ambulatory Problems Past Medical History: Diagnosis Date BMI 24.0-24.9, adult Depot contraception Encounter for IUD insertion Encounter for Papanicolaou cervical smear to confirm findings of recent normal smear following initial abnormal smear Intrauterine device surveillance Schizo-affective psychosis ([facility]) Urine test negative HISTORY PAST MEDICAL HISTORY SOCIAL HISTORY Past Medical History: Diagnosis Date Acute asthma ([facility]) BMI 24.0-24.9, adult Depot contraception Encounter for IUD insertion Encounter for Papanicolaou cervical smear to confirm findings of recent normal smear following initial abnormal smear Intrauterine device surveillance 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 OBJECTIVE Objective: Physical Exam Constitutional: Appearance: Normal [...] nursing note reviewed. Exam conducted with a box finisher present. Vitals: Estimated body mass index is 24.09 kg/m as calculated from the following: Height as of 06/04/22: 5' 3 . Weight as of this encounter: 136 lb. BP: 120/72 No LMP recorded. ASSESSMENT & PLAN ICD-10-CM 1. Amenorrhea N91.2 TSH GTT, 1 hour metoclopramide (Reglan) 10 MG tablet Ferritin Transferrin Type and screen ABO/Rh CBC and differential Hemoglobin A1c RPR Rubella antibody, IgG Hepatitis B surface antigen Hepatitis C antibody HIV-1 and HIV-2 antibodies Urine culture Rapid drug screen, urine Transferrin Type and screen ABO/Rh Rapid drug screen, urine 2. Nausea and vomiting in O21.9 ondansetron ODT (Zofran-ODT) 4 MG disintegrating tablet 3. Missed menses N92.6 TSH GTT, 1 hour metoclopramide (Reglan) 10 MG tablet Ferritin Transferrin Type and screen ABO/Rh CBC and differential Hemoglobin A1c RPR Rubella antibody, IgG Hepatitis B surface antigen Hepatitis C antibody HIV-1 and HIV-2 antibodies Urine culture Rapid drug screen, urine Transferrin Type and screen ABO/Rh Rapid drug screen, urine 4. , unspecified gestational age Z34.90 TSH GTT, 1 hour metoclopramide (Reglan) 10 MG tablet Ferritin Transferrin Type and screen ABO/Rh CBC and differential Hemoglobin A1c RPR Rubella antibody, IgG Hepatitis B surface antigen Hepatitis C antibody HIV-1 and HIV-2 antibodies Urine culture Rapid drug screen, urine Transferrin Type and screen ABO/Rh Rapid drug screen, urine 5. Encounter for supervision of normal first in first trimester Z34.01 TSH GTT, 1 hour metoclopramide (Reglan) 10 MG tablet Ferritin Transferrin Type and screen ABO/Rh CBC and differential Hemoglobin A1c RPR Rubella antibody, IgG Hepatitis B surface antigen Hepatitis C antibody HIV-1 and HIV-2 antibodies Urine culture Rapid drug screen, urine Transferrin Type and screen ABO/Rh Rapid drug screen, urine Patient presents to office for no cycle since February. Nursing had ordered ultrasound to be done prior to appointment today and was confirmed that patient was 14 weeks gestation. Patient has an ADEN of 11/25/24. Patient given all orders for labs and urine to be obtained and sent for testing. Patient given genetic testing as well. Patient to return to clinic in 2 weeks for OB intake. Patient will reach out to office with any further questions/concerns. Documented by Aida Strauss LPN on behalf of: Mary Robledo DO documented in this encounter [facility] 01-22-[address] er Note Dr. Santiago's office nurse called and asked if we sent patient to Jack's office because she could not be seen today? I advised her that we do not do that and no I have not sent anyone to Dr. Santiago's office today. Nurse stated pt just found out she is and was bleeding and was told that our office could not see her. Dr. Santiago did see pt and did a test on her in office was a small line and labs were drawn at [facility] today. I did advise the nurse that I will pull the labs and will let Venkat know of this matter and will reach out to the patient today. Pt did call our office on asking for HCG labs. And Nurse Molly sent labs over to [facility], however the labs have not been done as of 01/22/2024. Spoke with pt and asked who she spoke with at our office that advised her to go to jack's office because she couldn't be seen? Pt stated that she spoke to someone 2 days later and was told to get have her labs drawn so we can see her levels. I did advise pt that we have patients get their labs drawn on the day order is sent and repeat it again 2 days later to compare the numbers. This also helps us determine a miscarriage. I asked if she went and had them drawn on 01/14/2024? Pt denied having them drawn on 01/14/2024 she had her HCG along with other labs drawn today at her appt w/Dr. Santiago. I asked if pt is still bleeding? And pt said its so very light pink, like when its almost done with your period. I advised patient to please go back in 2 days to have the second HCG lab drawn. Pt verbally agreed to go on Friday. I advised pt I will let Dr. Robledo know. [facility] 01-22-2024 Miscellaneous Notes Formattin g of this note might be different from the original. Dr. Santiago's office nurse called and asked if we sent patient to Jack's office because she could not be seen today? I advised her that we do not do that and no I have not sent anyone to Dr. Santiago's office today. Nurse stated pt just found out she is and was bleeding and was told that our office could not see her. Dr. Santiago did see pt and did a test on her in office was a small line and labs were drawn at [facility] today. I did advise the nurse that I will pull the labs and will let Venkat know of this matter and will reach out to the patient today. Pt did call our office on asking for HCG labs. And Nurse Molly sent labs over to [facility], however the labs have not been done as of 01/22/2024. Spoke with pt and asked who she spoke with at our office that advised her to go to jack's office because she couldn't be seen? Pt stated that she spoke to someone 2 days later and was told to get have her labs drawn so we can see her levels. I did advise pt that we have patients get their labs drawn on the day order is sent and repeat it again 2 days later to compare the numbers. This also helps us determine a miscarriage. I asked if she went and had them drawn on 01/14/2024? Pt denied having them drawn on 01/14/2024 she had her HCG along with other labs drawn today at her appt w/Dr. Santiago. I asked if pt is still bleeding? And pt said its so very light pink, like when its almost done with your period. I advised patient to please go back in 2 days to have the second HCG lab drawn. Pt verbally agreed to go on Friday. I advised pt I will let Dr. Robledo know. documented in this encounter [facility] 06-12-2023 History of Presen t illness Narrative Reason for Appointment: Patient ID: Jojo Hackett is a 27 y.o. female who presents for Routine Visit Patient presents today for Return OB appointment. Current Medications: has a current medication list which includes the following prescription(s): advair diskus, citalopram, citalopram, levothyroxine, multivitamin, plus/iron, and ventolin hfa. 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 Exam conducted with a box finisher present. Vitals: Estimated body mass index is [...] Mary Robledo DO documented in this encounter [facility] Healthcare Evaluation note Diagnosis Third trimester state, incidental documented in this encounter [facility] HealthcareEvaluation noteNo assessment information [facility] [place] Work Phone: Evaluation note* Diagnosis Amenorrhea Absence of menstruation Nausea and vomiting in Unspecified vomiting of , unspecified as to episode of care Missed menses , unspecified gestational age Encounter for supervision of normal first in first trimester [facility]* Diagnosis 16 weeks gestation of Screening, , for anatomic survey Encounter for anatomic survey Nausea Nausea alone documented in this encounter [facility] HealthcareEvaluation note* Diagnosis Second trimester state, incidental 19 weeks gestation of Thyroid disease ([facility]) Unspecified disorder of thyroid Antepartum anemia documented in this encounter [facility]* Diagnosis Second trimester state, incidental 28 weeks gestation of Diabetes mellitus screening Screening for diabetes mellitus size inconsistent with dates documented in this encounter [facility]* Diagnosis 30 weeks gestation of Third trimester state, incidental Trichomonas infection Unspecified trichomoniasis Other specified hypothyroidism documented in this encounter [facility]* Diagnosis Third trimester state, incidental 32 weeks gestation of Herpes simplex Herpes simplex without mention of complication Mood changes Unspecified episodic mood disorder Thyroid disease (CMS/HCC) Unspecified disorder of thyroid documented [facility]* Diagnosis Third trimester (HHS-HCC) state, incidental 35 weeks gestation of (HHS-HCC) documented in this encounter [facility] Summary Purpose Family History No Family History Records FoundNo Family History Records FoundNo Family History Records FoundNo Family History Records Found Advance Directives No Advanced Directives Records FoundNo Advanced Directives Records FoundNo Advanced Directives Records FoundNo Advanced Directives Records Found Chief Complaint and Reason for Visit Chief Complaint fairlawn px Additional Source Comments INFORMATION SOURCE (unrecogn ized section and content) DATE CREATED AUTHOR 10/25/2020 Gilman Abdullahi [facility] DATE CREATED AUTHOR AUTHOR'S ORGANIZ ATION 06/11/2022 [facility] DATE CREATED AUTHOR AUTHOR'S ORGANIZ ATION 09/02/2024 [facility] DATE CREATED AUTHOR AUTHOR'S ORGANIZ ATION 10/07/2024 [facility] EPIC Reason for Visit (unrecogniz ed section and content) Reason Comments Routine Visit Reason Comments Amenorrhea Pt present today due not having a menstrual cycle since February. Pt was also given a US to have done prior to visit. Pt was found to be 15 weeks and 2 days . Reason Comments Amenorrhea Care Teams (unrecognized sec tion and content) Team Status: Inactive Member Role Status Dates JOANN Vicente Attending Provider Active Sta rt: November 27, 2023 End: November 27, 2023 Wood Machinist Relationship Specialty Start Date End Date Erika Chan PA [address] [place] [address] [place] [address] PCP - [facility] 05/05/24 Wood Machinist Relationship Specialty Start Date End Date Erika Chan PA [address] [place] [address] [facility] 05/05/24 Wood Machinist Relationship Specialty Start Date End Date Erika Chan PA [address] [place], [place] [address] [facility] 05/05/24 Wood Machinist Relationship Specialty Start Date End Date Erika Chan PA [address] [place] [address] Catie [place], [place] [address] [facility] 05/05/24 Wood Machinist Relationship Specialty Start Date End Date Erika Chan PA [address] [place] [address] Catie [place], [place] [address] [facility] 05/05/24 Wood Machinist Relationship Specialty Start Date End Date Erika Chan PA [address] [place] [address] Dr [place], [place] [address] [facility] 05/05/24 Wood Machinist Relationship Specialty Start Date End Date Erika Chan PA [address] [place] [address] Dr [place], [place] [address] [facility] 05/05/24 Wood Machinist Relationship Specialty Start Date End Date Erika Chan PA [address] [place], [place] [address]helne [place], [id number] 05/05/24 Goals (unrecognized section and content) Goals may [...] BE BASED ON THE PRIMARY CLINICAL RECORDS. [facility] [employer] [facility]. provides no warranty or guarantee of the accuracy or completeness of information in this document.
== END 2024-10-25 21:34 | disposition home or self-care (01) ==
LOC: LAB 21:33
PROVIDERS: PCP Family Medicine; Visit Provider Physician Assistant
DX: Z34.93 Encounter for supervision of normal pregnancy, unspecified, third trimester (principal); Z3A.35 35 weeks gestation of pregnancy
CPT/HCPCS: 87081

== ENCOUNTER 2024-11-04 15:17 | Outpatient (OUT) | payer OTHER, SELFPAY ==
--- OUTSIDE RECORDS SUMMARY | 2024-06-07 04:22 | XMS_ITS ---
Author Organization [facility] [place] Address [address] [place] [address] Care Team Providers Care Hand Laster Name Role Phone Parish Santiago Primary Care Provider REASON FOR VISIT holter denied Encounters Encounter Location Date Provider Diagnosis [address] [id number] 06/07/2024 Parish Santiago Plan Of Treatment No Information Progress Notes * Jojo LOPEZ RDOB: [birth year] (28 yo F)Acc No.[id number]:06/07/2024 Patient: Demetria Jojo LEES :1995 A ge:28 Y S ex:Female Address:[address] [place] [id number] * true * Date: Generated for Ehsan charles/Estefani/eTransmitting on: 0 11/04/2024 03:19 PM EDT
--- OUTSIDE RECORDS SUMMARY | 2024-08-09 09:27 | XMS_ITS ---
Author Organization [facility] [place] Address [address] [place] [address] Care Team Providers Care Cloth Stretcher Name Role Phone Parish Santiago Primary Care Provider REASON FOR VISIT test results Encounters Encounter Location Date Provider Diagnosis [facility] [address] [place] [address] 08/09/2024 Parish Santiago Plan Of Treatment No Information Progress Notes * Jojo LOPEZ RDOB: [birth year] (28 yo F)Acc No.[id number]:08/09/2024 Patient: Demetria Jojo LEES :1995 A ge:28 Y S ex:Female Address:[address] [place] [phone] * true * Date: Generated for Eshan charles/Estefani/eTransmitting on: 0 11/04/2024 03:19 PM EDT
--- OUTSIDE RECORDS SUMMARY | 2024-10-25 14:20 | XMS_ITS | Encounter Summary ---
Author Organization [facility] Address [address] [place] [address] Care Team Providers Care Marble Installer Supervisor Name Role Phone Erika Keith Unavailable Reason for Visit * Reason Comments Routine Visit Encounter Details Date Type Department Care Team (Late st Contact Info) Description 10/25/2024 2:20 PM EDT Routine [facility] [address] [place] [phone] Erika Keith PA [address] [place] [phone] Third trimester ([facility]); 35 weeks gestation of ([facility]); Anemia, unspecified type Social History Tobacco Use Types Packs/Day Years Used Date Smoking Tobacco: Never Smokeless Tobacco: Never Alcohol Use Standard Drinks/Week Comments Never 0 (1 standard drink = 0.6 oz pur e alcohol) Estimated Date of Delivery Comme nts Yes 11/25/2024 Based on Ultraso und Sex and Gender Information Value Date Recorded Sex Assigned at Female 10/20/2022 3:45 PM EDT Legal Sex Female 11:47 PM EDT Gender Identity Female 10/20/2022 3:45 PM EDT Sexual Orientation Bisexual 10/20/2022 3: 45 PM EDT documented as of this encounter Last Filed Vital Signs Vital Sign Reading Time Taken Comments Blood Pressure 122/68 10/25/2024 2:49 PM EDT Pulse - - Temperature - - Respiratory Rate - - Oxygen Saturation - - Inhaled Oxygen Concentration - - Weight 72.8 kg (160 lb 8 oz) 10/25/2024 2:49 PM EDT Height - - Body Mass Index 28.43 06/04/2022 12:00 PM EST documented in this encounter Progress Notes * BECKY Souza - 10/25/2024 2:20 PM EDT Reason for Appointment: Patient ID: Jojo Hackett is a 29 y.o. female who presents for Routine Visit Patient presents today for Return OB appointment. MEDICATIONS Current Outpatient Medications Medication Instructions levothyroxine (SYNTHROID) 100 mcg, Oral, Daily before breakfast metoclopramide (Reglan) 10 MG tablet TAKE 1 TABLET BY MOUTH 30 MINUTES PRIOR TO MEALS IN THE MORNING, AT NOON, AND IN THE EVENING NEEDED FOR NAUSEA ondansetron (ZOFRAN) 4 mg, Oral, Every 6 hours PRN, Take 1 tablet by mouth every 6 hours as needed for nausea. 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 12/03/2022 Neck swelling 08/19/2022 Schizoaffective disorder (HCC) 12/03/2022 Resolved Ambulatory Problems Diagnosis Date Noted No Resolved Ambulatory Problems Past Medical History: Diagnosis Date BMI 24.0-24.9, adult Depot contraception Encounter for IUD insertion Encounter for Papanicolaou cervical smear to confirm findings of recent normal smear following initial abnormal smear Hypothyroidism (acquired) Intrauterine device surveillance Schizo-affective psychosis (HCC) Urine test negative HISTORY PAST MEDICAL HISTORY SOCIAL HISTORY Past Medical History: Diagnosis Date Acute asthma (HCC) BMI 24.0-24.9, adult Depot contraception Encounter for IUD insertion Encounter for Papanicolaou cervical smear to confirm findings of recent normal smear following initial abnormal smear Hypothyroidism (acquired) Intrauterine device surveillance 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 Schizo-affective psychosis (HCC) Urine test negative Social History Tobacco Use Smoking status: Never Smokeless tobacco: Never Substance Use Topics Alcohol use: Never Drug use: Never FAMILY HISTORY Family History Problem Relation Name Age of Onset Heart disease Mother Mental illness Mother COPD Mother Multiple sclerosis Mother Multiple sclerosis Maternal Grandmother SURGICAL HISTORY Past Surgical History: Procedure Laterality Date SECTION, LOW TRANSVERSE 07/15/2023 PAP SMEAR 11/14/2021 negative TONSILLECTOMY 11/19/2022 REVIEW OF SYSTEMS Review of Systems: Review of Systems Constitutional: Negative. HENT: Negative. Eyes: Negative. Respiratory: Negative. Cardiovascular: Negative. Gastrointestinal: Negative. Genitourinary: Negative. Musculoskeletal: Negative. Skin: Negative. Neurological: Negative. All other systems reviewed and are negative. Hematological: Negative. Endocrine: Negative. Allergic/Immunologic: Negative. OBJECTIVE Objective: Physical Exam Constitutional: Appearance: Normal appearance. She is normal weight. HENT: Head: Normocephalic. Cardiovascular: Rate and Rhythm: Normal rate. Pulses: Normal pulses. Pulmonary: Effort: Pulmonary effort is normal. Breath sounds: Normal breath sounds. Abdominal: Palpations: Abdomen is soft. Musculoskeletal: General: Normal range of motion. Neurological: General: No focal deficit present. Mental Status: She is alert and oriented to person, place, and time. Psychiatric: Mood and Affect: Mood normal. Behavior: Behavior normal. Thought Content: Thought content normal. Judgment: Judgment normal. Vitals and nursing note reviewed. Vitals: Estimated body mass index is 28.43 kg/m² as calculated from the following: Height as of 06/04/22: 5' 3 . Weight as of this encounter: 160 lb 8 oz. BP: 122/68 Patient's last menstrual period was 02/10/2024. ASSESSMENT & PLAN ICD-10-CM 1. Third trimester ([facility]) Z34.93 CULTURE, GROUP B STREP WITH SUSCEPTIBLITY CULTURE, GROUP B STREP WITH SUSCEPTIBLITY POCT urinalysis dipstick manually resulted 2. 35 weeks gestation of ([facility]) Z3A.35 Return OB: Patient presents today for a routine obstetrics appointment. Patient is currently 35w4d . Patient states she is doing well but has complaints of being tired due to current . Patient has verbalizes frequent movement. labor precautions was discussed/given and patient was instructed to perform kick counts three times a day. Orders Placed This Encounter Procedures CULTURE, GROUP B STREP WITH SUSCEPTIBLITY POCT urinalysis dipstick manually resulted Follow Up: Patient is to return to office in 2 week for routine OB appointment. Documented by BECKY Souza on behalf of: BECKY Souza documented in this encounter Miscellaneous Notes * Addendum Note - Tiago Raman LPN - 10/25/2024 2:20 PM EDTAddended by: TIAGO RAMAN on: 10/25/2024 03:14 PM Modules accepted: Orders documented in this encounter Plan of Treatment Scheduled Orders Name Type Priority Associated Diagnoses Orde r Schedule CULTURE, GROUP B STREP WITH SUSCEPTIBLITY Lab Routine Third trimester ([facility]) Expected: 10/25/2024, Expires: 10/25/2025 CBC and differential Lab Routine Anemia, unspecified type Ordered: 10/25/2024 documented as of this encounter Goals Goal Patient Goal Type Associated Problems Recent Progress Patient-Stated? Author Reminders Care Plan OB Reminders No Open Scheduling, Background documented as of this encounter Procedures Procedure Name Priority Date/Time Associated Diagnosis Comments POCT URINALYSIS DIPSTICK Routine 10/25/2024 2:57 PM EDT Third trimester ([facility]) documented in this encounter Results * (ABNORMAL) POCT urinalysis dipstick manually resulted (10/25/2024 2:57 PM EDT) Color, UA Yellow Clarity, UA Clear Glucose, UA Negative Negative - 2000(110) ++++ mg/dL Bilirubin, UA Trace Negative - 4(70) +++ mg/dL Ketones, UA Negative Negative - 160(16) ++++ mg/dL Spec Grav, UA 1.020 1 - 1.03 Blood, UA Negative Negative - 50 Yovany/mcL pH, UA 7.0 5 - 9 Protein, UA Positive Negative - 2000(20) ++++ mg/dL Comment:30mg Urobilinogen, UA 0.2 0.2 - 12 mg/dL Leukocytes, UA Positive Negative - 500+++ Jamey/mcL Comment:small Nitrite, UA Negative Negative - Positive Urine 10/25/2024 2:57 PM EDT Erika PENA POINT OF CARE TEST ENTER/EDIT OR DERABLES Final Result documented in this encounter Visit Diagnoses Diagnosis Third trimester ([facility] state, incidental 35 weeks gestation of ([facility]) Anemia, unspecified type documented in this encounter Additional Health Concerns Active Problems Noted Date Diagnosed Date OB Reminders 06/10/2024 documented as of this encounter Care Teams Marble Installer Supervisor Relationship Specialty Start Date End Date Erika Keith PA [address] [place] [address] Dr [place] [phone] PCP - [facility] 05/05/24 documented as of this encounter
--- OUTSIDE RECORDS SUMMARY | 2024-11-01 14:00 | XMS_ITS | Encounter Summary ---
Author Organization [facility] Address [address] [place] [address] Care Team Providers Care Peoplesoft Fscm Developer Name Role Phone Erika Keith Unavailable Reason for Visit * Reason Comments Routine Visit Encounter Details Date Type Department Care Team (Late st Contact Info) Description 11/01/2024 2:00 PM EDT Routine [facility] [address] [place] [id number] Sarbjit Robledo, DO [address] [facility] [address] [place] [address] Third trimester ([facility]); 36 weeks gestation of ([facility]); Herpes simplex; Thyroid disease Social History Tobacco Use Types Packs/Day Years [...] Sign Reading Time Taken Comments Blood Pressure 102/62 11/01/2024 2:21 PM EDT Pulse - - Temperature - - Respiratory Rate - - Oxygen Saturation - - Inhaled Oxygen Concentration - - Weight 74.2 kg (163 lb 8 oz) 11/01/2024 2:21 PM EDT Height - - Body Mass Index 28.96 06/04/2022 12:00 PM EST documented in this encounter Progress Notes * Kay Johnnie, KATE - 11/01/2024 2:00 PM EDT Reason for Appointment: Patient ID: [...] nursing note reviewed. Exam conducted with a steward/stewardess present. Vitals: Estimated body mass index is 28.96 kg/m² as calculated from the following: Height as of 06/04/22: 5' 3 . Weight as of this encounter: 163 lb 8 oz. BP: 102/62 Patient's last menstrual period was 02/10/2024. ASSESSMENT & PLAN ICD-10-CM 1. Third trimester ([facility]) Z34.93 POCT urinalysis dipstick manually resulted CULTURE, GROUP B STREP WITH SUSCEPTIBLITY CULTURE, GROUP B STREP WITH SUSCEPTIBLITY 2. 36 weeks gestation of ([facility]) Z3A.36 3. Herpes simplex B00.9 4. Thyroid disease E07.9 Return OB: Patient presents today for a routine obstetrics appointment. Patient is currently 36w4d . Patient states she is doing well but has complaints of being tired due to current . Patient has verbalizes frequent movement. labor precautions was discussed/given and patient was instructed to perform kick counts three times a day. Orders Placed This Encounter Procedures CULTURE, GROUP B STREP WITH SUSCEPTIBLITY POCT urinalysis dipstick manually resulted Follow Up: Patient is to return to office in 1 week for routine OB appointment. Documented by Kay Blair LPN on behalf of: Sarbjit Robledo DO documented in this encounter Plan of Treatment Not on file documented as of this encounter Goals Goal Patient Goal Type Associated Problems Recent Progress Patient-Stated? Author Reminders Care Plan OB Reminders No Open Scheduling, Background documented as of this encounter Procedures Procedure Name Priority Date/Time Associated Diagnosis Comments POCT URINALYSIS DIPSTICK Routine 11/01/2024 2:25 PM EDT Third trimester ([facility]) documented in this encounter Results * (ABNORMAL) POCT urinalysis dipstick manually resulted (11/01/2024 2:25 PM EDT) Color, UA Yellow Clarity, UA Clear Glucose, UA Negative Negative - 2000(110) ++++ mg/dL Bilirubin, UA Negative Negative - 4(70) +++ mg/dL Ketones, UA Negative Negative - 160(16) ++++ mg/dL Spec Grav, UA 1.020 1 - 1.03 Blood, UA Negative Negative - 50 Yovany/mcL pH, UA 7.0 5 - 9 Protein, UA Trace Negative - 2000(20) ++++ mg/dL Urobilinogen, UA 1.0 0.2 - 12 mg/dL Leukocytes, UA Trace Negative - 500+++ Jamey/mcL Nitrite, UA Negative Negative - Positive Urine 11/01/2024 2:25 PM EDT Sarbjit Robledo DO POINT OF CARE TEST ENTER/EDIT OR DERABLES Final Result documented in this encounter Visit Diagnoses Diagnosis Third trimester ([facility]) state, incidental 36 weeks gestation of ([facility]) Herpes simplex Herpes simplex without mention of complication Thyroid disease Unspecified disorder of thyroid documented in this encounter Additional Health Concerns Active Problems Noted Date Diagnosed Date OB Reminders 06/10/2024 documented as of this encounter Care Teams Peoplesoft Fscm Developer Relationship Specialty Start Date End Date Erika Keith PA [address] [place] [id number] PCP - [facility] 05/05/24 documented as of this encounter
--- OUTSIDE RECORDS SUMMARY | 2024-11-04 15:19 | XMS_ITS | Encounter Summary ---
Author Organization [facility] Address [address] [facility] [place] [address] Care Team Providers Care Welder Explosion Name Role Phone Erika Keith Unavailable Encounter Details Date Type Department Care Team (Late st Contact Info) Description 08/10/2024 Orders Only [facility] [address] [place] [address] Ritu Segura LPN [address] [place] [address] Social History Tobacco Use Types Packs/Day Years [...] PM EDT documented as of this encounter Plan of Treatment Not on file documented as of this encounter Goals Goal Patient Goal Type Associated Problems Recent Progress Patient-Stated? Author Reminders Care Plan OB Reminders No Open Scheduling, Background documented as of this encounter Procedures Procedure Name Priority Date/Time Associated Diagnosis Comments PAP SMEAR Routine 08/04/2024 12:00 AM EDT documented in this encounter Results * Pap Smear (08/04/2024 12:00 AM EDT) Swab Cervical swab / Unknown us Venkat Nurse [facility] LAB CYTOLOGY ORDERABLES Final Result EXTERNAL LAB documented in this encounter Visit Diagnoses Not on filedocumented in this encounter Additional Health Concerns Active Problems Noted Date Diagnosed Date OB Reminders 06/10/2024 documented as of this encounter Care Teams Welder Explosion Relationship Specialty Start Date End Date Erika Keith PA [address] [place] [address] [place] [address] PCP - [facility] 05/05/24 documented as of this encounter
--- OUTSIDE RECORDS SUMMARY | 2024-11-04 15:19 | XMS_ITS | Encounter Summary ---
Author Organization [facility] Address [address] [facility] [place] [address] Care Team Providers Care Bench Hand Machine Name Role Phone Erika Keith Unavailable Encounter Details Date Type Department Care Team (Late st Contact Info) Description 03/24/2023 Abstract [facility] [address] [place] [phone] Ritu Segura LPN [address] [facility] Social History Tobacco Use Types Packs/Day Years Used Date Smoking Tobacco: Never Smokeless Tobacco: Never Alcohol Use Standard Drinks/Week Comments Never 0 (1 standard drink = 0.6 oz pur e alcohol) Comments Yes Sex and Gender Information Value Date Recorded Sex Assigned at Female 10/20/2022 3:45 PM EDT Legal Sex Female 11:47 PM EDT Gender Identity Female 10/20/2022 3:45 PM EDT Sexual Orientation Bisexual 10/20/2022 3: 45 PM EDT documented as of this encounter Plan of Treatment Not on file documented as of this encounter Visit Diagnoses Not on filedocumented in this encounter Care Teams Bench Hand Machine Relationship Specialty Start Date End Date Erika Keith PA [address] [place], [place] [id number] PCP - [facility] 05/05/24 documented as of this encounter
--- OUTSIDE RECORDS SUMMARY | 2024-11-04 15:19 | XMS_ITS | Encounter Summary ---
Author Organization [facility] Address [address] [facility] [place] [address] Care Team Providers Care Floor Refinisher Name Role Phone Erika Keith Unavailable Encounter Details Date Type Department Care Team (Late st Contact Info) Description 07/05/2024 Abstract [facility] OB [address] [place] [phone] Sarbjit Robledo, DO [address] [place] [address] Social History Tobacco Use Types Packs/Day Years [...] Scheduling, Background documented as of this encounter Visit Diagnoses Not on filedocumented in this encounter Additional Health Concerns Active Problems Noted Date Diagnosed Date OB Reminders 06/10/2024 documented as of this encounter Care Teams Floor Refinisher Relationship Specialty Start Date End Date Erika Keith PA [address] [facility] [address] [place], [facility]11 PCP - [facility] 05/05/24 documented as of this encounter
--- OUTSIDE RECORDS SUMMARY | 2024-11-04 15:19 | XMS_ITS | Encounter Summary ---
Author Organization [facility] Address [address] [facility] [place] [address] Care Team Providers Care Generating Plant Superintendent Name Role Phone Erika Keith Unavailable Encounter Details Date Type Department Care Team (Late st Contact Info) Description 01/23/2023 Abstract [facility] OB [address] [facility] [place] [address] Sarbjit Robledo, DO [address] [facility] [address] [place], [facility]11 Social History Tobacco Use Types Packs/Day [...] Orientation Bisexual 10/20/2022 3: 45 PM EDT COVID-19 Exposure Response Date Recorded In the last 10 days, have yo u been in contact with someone who was confirmed or suspected to have Coronavirus/COVID-19? No / Unsure 01/03/2023 11:07 AM EDT documented as of this encounter Plan of Treatment Not on file documented as of this encounter Visit Diagnoses Not on filedocumented in this encounter Care Teams Generating Plant Superintendent Relationship Specialty Start Date End Date Erika Keith PA [address] [place] [address] PCP - [facility] 05/05/24 documented as of this encounter
--- OUTSIDE RECORDS SUMMARY | 2024-11-04 15:19 | XMS_ITS | Encounter Summary ---
Author Organization [facility] Address [address] [place] [address] Care Team Providers Care Tape Maker Name Role Phone Erika Keith Unavailable Encounter Details Date Type Department Care Team (Late st Contact Info) Description 03/19/2023 Clinisync Result Encounter [facility] External Department Unsolicited Sarbjit Robledo, DO [address] [facility] [address] Tain[place], [place] [phone] Social History Tobacco Use Types Packs/Day Years [...] suspected to have Coronavirus/COVID-19? No / Unsure 02/18/2023 8:49 AM EDT documented as of this encounter Plan of Treatment Not on file documented as of this encounter Procedures Procedure Name Priority Date/Time Associated Diagnosis Comments US OB ANATOMY 03/19/2023 10:23 PM EST documented in this encounter Results * US OB ANATOMY (03/19/2023 10:23 PM EST) Anatomical Region Laterality Modality Other 03/19/2023 10:2 3 PM EST Narrative 03/19/2023 10:23 PM EST [address] [address] Ultrasound Report Signed Patient: JOJO LOPEZ MR#: [id number] : 1995 Acct:[id number] Age/Sex: 27 / F ADM Date: 03/19/23 Loc: US Attending Dr: Sarbjit Robledo D.O. Ordering Physician: Sarbjit Robledo D.O. Date of Service: 03/19/23 Procedure(s): US OB anatomy Accession Number(s): [id number] cc: Sarbjit Robledo D.O.; Jesu Santiago M.D. [place] [address] Patient Name: JOJO LOPEZ MRN: [id number] date: 1995 Sex: F Assigned Patient Location: US Current Patient Location: CARD Accession/Order Number: [id number] Exam Date: 03/19/2023 08:34 Report Date: 03/19/2023 22:23 At the request of: SARBJIT ROBLEDO Procedure: US OB anatomy EXAMINATION: US OB anatomy, US OB cervical length HISTORY: ANATOMY COMPARISON: No relevant comparison available. TECHNIQUE: Transabdominal sonographic examination was performed for obstetrical and evaluation. FINDINGS: Number: 1 Heart Rate: 151.0 bpm H.B. /min Amniotic Fluid Volume: Subjectively normal Placental Location: ANT/FUND with lower margin 4.9 cm from os. Cervix Length: 6.4 cm; closed. ANATOMY: Normal Structures -cerebellum, choroid plexus, cisterna magna, lateral cerebral ventricles, orbits, midline falx, hard palate, four-chamber heart, RVOT, LVOT, stomach, kidneys, bladder, umbilical cord insertion into abdomen, three-vessel cord, cervical spine, thoracic spine, lumbar spine, sacral spine, right upper extremity, left upper extremity, right lower extremity, left lower extremity. SUBOPTIMALLY SEEN: None ABNORMALITIES: None BIOMETRY: BPD: 4.7 cm 20 weeks 1 days HC: 18.5 cm 20 weeks 6 days AC: 15.9 cm 21 weeks 0 days FL: 3.5 cm 21 weeks 1 days EFW:392.6 grams; ; 84% FL/AC: 22.2 FL/BPD: 74.9 HC/AC: 1.2 GESTATIONAL AGE: Age by EDC: 20 weeks 2 days ADEN by EDC: 08/04/2023 Age by current US: 20 weeks 6 days ADEN by current US: 07/31/2023 US/US OB anatomy IMPRESSION: 1. Single live intrauterine with growth detailed above. 2. Cisterna magna is borderline prominent, 7 mm. Electronically authenticated by: ERNST SALES Date: 03/19/2023 22:23 Dictated By: Ernst Sales M.D. Signed By: 03/19/232225 DD/ 22 TD/TT: Business Architect: Procedure Note Radiology, Radiologist, MD - 03/19/2023 [place] [address] Ultrasound Report Signed Patient: JOJO LOPEZ RMR#: [id number] : 1995Acct:[id number] Age/Sex: 27 FADM Date: 03/19/23 Loc: US Attending Dr: Sarbjit Robledo D.O. Ordering Physician: Sarbjit Robledo D.O. Date of Service: 03/19/23 Procedure(s): US OB anatomy Accession Number(s): [id number] cc: Sarbjit Robledo D.O.; Jesu Santiago M.D. The [place] [id number] Patient Name: JOJO LOPEZ MRN: [id number] date: 1995 Sex: F Assigned Patient Location: US Current Patient Location: CARD Accession/Order Number: [id number] Exam Date: 03/19/2023 08:34 Report Date: 03/19/2023 22:23 At the request of: SARBJIT ROBLEDO Procedure: US OB anatomy EXAMINATION: US OB anatomy, US OB cervical length HISTORY: ANATOMY COMPARISON: No relevant comparison available. TECHNIQUE: Transabdominal sonographic examination was performed for obstetrical and evaluation. FINDINGS: Number: 1 Heart Rate: 151.0 bpm H.B. /min Amniotic Fluid Volume: Subjectively normal Placental Location: ANT/FUND with lower margin 4.9 cm from os. Cervix Length: 6.4 cm; closed. ANATOMY: Normal Structures -cerebellum, choroid plexus, cisterna magna, lateral cerebral ventricles, orbits, midline falx, hard palate, four-chamberheart, RVOT, LVOT, stomach, kidneys, bladder, umbilical cord insertion intoabdomen, three-vessel cord, cervical spine, thoracic spine, lumbar spine, sacralspine, right upper extremity, left upper extremity, right lower extremity, leftlower extremity. SUBOPTIMALLY SEEN: None ABNORMALITIES: None BIOMETRY: BPD: 4.7 cm 20 weeks 1 days HC: 18.5 cm 20 weeks 6 days AC: 15.9 cm 21 weeks 0 days FL: 3.5 cm 21 weeks 1 days EFW:392.6 grams; ; 84% FL/AC: 22.2 FL/BPD: 74.9 HC/AC: 1.2 GESTATIONAL AGE: Age by EDC: 20 weeks 2 days ADEN by EDC: 08/04/2023 Age by current US: 20 weeks 6 days ADEN by current US: 07/31/2023 US/US OB anatomy IMPRESSION: 1. Single live intrauterine with growth detailed above. 2. Cisterna magna is borderline prominent, 7 mm. Electronically authenticated by: ERNST SALES Date: 03/19/2023 22:23 Dictated By: Ernst Sales M.D. Signed By:03/19/232225 DD/ 22 TD/TT: Business Architect: us Sarbjit Venkat DO [facility] Final Result documented in this encounter Visit Diagnoses Not on filedocumented in this encounter Care Teams Tape Maker Relationship Specialty Start Date End Date Erika Keith PA [address] [place] [address] [place] [address] PCP - [facility] 05/05/24 documented as of this encounter
--- OUTSIDE RECORDS SUMMARY | 2024-11-04 15:19 | XMS_ITS | Encounter Summary ---
Author Organization [facility] Address [address] [place] [address] Care Team Providers Care Supervisor Baking Name Role Phone Erika Keith Unavailable Encounter Details Date Type Department Care Team (Late st Contact Info) Description 03/19/2023 Clinisync Result Encounter [facility] External Department Unsolicited Sarbjit Robledo, DO [address] [facility] [address] [place], [place] [phone] Social History Tobacco Use Types Packs/Day Years [...] Priority Date/Time Associated Diagnosis Comments US OB CERVICAL LENGTH 03/19/2023 10:23 PM EST documented in this encounter Results * US OB CERVICAL LENGTH (03/19/2023 10:23 PM EST) Anatomical Region Laterality Modality Other 03/19/2023 10:2 3 PM EST Narrative 03/19/2023 10:23 [place] [address] Ultrasound Report Signed Patient: JOJO LOPEZ MR#: [id number] : 1995 Acct:[id number] Age/Sex: 27 / F ADM Date: 03/19/23 Loc: US Attending Dr: Sarbjit Robledo D.O. Ordering Physician: Sarbjit Robledo D.O. Date of Service: 03/19/23 Procedure(s): US OB cervical length Accession Number(s): [id number] cc: Sarbjit Robledo D.O.; Jesu Santiago M.D. [place] [address] Patient Name: JOJO LOPEZ MRN: [id number] date: 1995 Sex: F Assigned Patient Location: US Current Patient Location: CARD Accession/Order Number: [id number] Exam Date: 03/19/2023 08:34 Report Date: 03/19/2023 22:23 At the request of: SARBJIT ROBLEDO Procedure: US OB cervical length EXAMINATION: US OB anatomy, US OB cervical [...] ADEN by current US: 07/31/2023 US/US OB cervical length IMPRESSION: 1. Single live intrauterine with growth detailed above. 2. Cisterna magna is borderline prominent, 7 mm. Electronically authenticated by: ERNST SALES Date: 03/19/2023 22:23 Dictated By: Ernst Sales M.D. Signed By: 03/19/232224 DD/ 22 TD/TT: Undergraduate Advisor: Procedure Note Radiology, Radiologist, MD - 03/19/2023 [place] [address] Ultrasound Report Signed Patient: JOJO LOPEZ RMR#: [id number] : 1995Acct:[id number] Age/Sex: 27 FADM Date: 03/19/23 Loc: US Attending Dr: Sarbjit Robledo D.O. Ordering Physician: Sarbjit Robledo D.O. Date of Service: 03/19/23 Procedure(s): US OB cervical length Accession Number(s): [id number] cc: Sarbjit Robledo D.O.; Jesu Santiago M.D. The [place] [address] Patient Name: JOJO LOPEZ MRN: [id number] date: 1995 Sex: F Assigned Patient Location: US Current Patient Location: CARD Accession/Order Number: [id number] Exam Date: 03/19/2023 08:34 Report Date: 03/19/2023 22:23 At the request of: SARBJIT ROBLEDO Procedure: US OB cervical length EXAMINATION: US OB anatomy, US OB cervical [...] ADEN by current US: 07/31/2023 US/US OB cervical length IMPRESSION: 1. Single live intrauterine with growth detailed above. 2. Cisterna magna is borderline prominent, 7 mm. Electronically authenticated by: ERNST SALES Date: 03/19/2023 22:23 Dictated By: Ernst Sales M.D. Signed By:03/19/232224 DD/ 22 TD/TT: Undergraduate Advisor: Sarbjit Venkat DO [facility] Final Result documented in this encounter Visit Diagnoses Not on filedocumented in this encounter Care Teams Supervisor Baking Relationship Specialty Start Date End Date Erika Keith PA [address] [place] [address] [place] [address] PCP - [facility] 05/05/24 documented as of this encounter
--- OUTSIDE RECORDS SUMMARY | 2024-11-04 15:19 | XMS_ITS | Encounter Summary ---
Author Organization [facility] Address [address] [place] [address] Care Team Providers Care American Board Certified Orthotist Name Role Phone Shiva Chan Unavailable Encounter Details Date Type Department Care Team (Late st Contact Info) Description 06/12/2023 Clinisync Result Encounter [facility] External Department Unsolicited Shiva Chan PA [address] [place] [address] [place] [address] Social History Tobacco Use Types [...] Priority Date/Time Associated Diagnosis Comments US OB GROWTH 06/12/2023 11:40 AM EST documented in this encounter Results * US OB GROWTH (06/12/2023 11:40 AM EST) Anatomical Region Laterality Modality Other 06/12/2023 11:4 0 AM EST Narrative 06/12/2023 11:42 AM EST The [address] [place] [address] Ultrasound Report Signed Patient: JOJO LOPEZ MR#: [id number] : 1995 Acct:[id number] Age/Sex: 27 / F ADM Date: 06/12/23 Loc: US Attending Dr: Shiva Chan Ordering Physician: Shiva Chan Date of Service: 06/12/23 Procedure(s): US OB growth Accession Number(s): [id number] cc: Shiva Chan; Jesu Santiago M.D. [place] [address] Patient Name: JOJO LOPEZ MRN: [id number] date: 1995 Sex: F Assigned Patient Location: US Current Patient Location: Accession/Order Number: [id number] Exam Date: 06/12/2023 10:29 Report Date: 06/12/2023 11:40 At the request of: SHIVA CHAN Procedure: US OB growth EXAMINATION: US OB growth HISTORY: SGA COMPARISON: No relevant comparison available. FINDINGS: Heart Rate: 151.0 bpm Amniotic Fluid Volume: 26.7 cm , polyhydramnios Number: 1.0 Position: CEPHALIC Maximum Vertical Pocket: 8.4 cm cm 5.5 cm cm 7.3 cm cm 5.4 cm cm BIOMETRY: BPD: 8.7 cm cm; 35 weeks 0 days; 96% HC: 31.8 cmcm; 35 weeks 6 days , 92% AC: 31.8 cm cm; 35 weeks 5 days, >97% FL: 6.5 cm cm; 33 weeks 3 days; 66.6 % % EFW: 2581.6 grams, 5lb 11oz, > 97% FL/AC: 20.4 FL/BPD: 74.9 HC/AC: 1.0 GESTATIONAL AGE: Age by EDC: 32 weeks 3 days ADEN by EDC: 08/04/2019 Age by US: 35 weeks 0 days ADEN by US: 07/17/23 US/US OB growth IMPRESSION: Large for gestational age, estimated weight 97th percentile Polyhydramnios Electronically authenticated by: HAMMAD FRAZIER Date: 06/12/2023 11:40 Dictated By: Hammad Frazier M.D. Signed By: 06/12/23 1142 DD/ 1140 TD/TT: Psychological Anthropologist: Procedure Note Radiology, Radiologist, - 06/12/[address] [address] Ultrasound Report Signed Patient: JOJO LOPEZ RMR#: [id number] : 1995Acct:[id number] Age/Sex: 27 / FADM Date: 06/12/23 Loc: US Attending Dr: Shiva Chan Ordering Physician: Shiva Chan Date of Service: 06/12/23 Procedure(s): US OB growth Accession Number(s): [id number] cc: Shiva Chan; Jesu Santiago M.D. The [place] [id number] Patient Name: JOJO LOPEZ MRN: [id number] date: 1995 Sex: F Assigned Patient Location: US Current Patient Location: US Accession/Order Number: [id number] Exam Date: 06/12/2023 10:29 Report Date: 06/12/2023 11:40 At the request of: SHIVA CHAN Procedure: US OB growth EXAMINATION: US OB growth HISTORY: SGA COMPARISON: No relevant comparison available. FINDINGS: Heart Rate: 151.0 bpm Amniotic Fluid Volume: 26.7 cm , polyhydramnios Number: 1.0 Position: CEPHALIC Maximum Vertical Pocket: 8.4 cm cm 5.5 cm cm 7.3 cm cm 5.4 cm cm BIOMETRY: BPD: 8.7 cm cm; 35 weeks 0 days; 96% HC: 31.8 cmcm; 35 weeks 6 days , 92% AC: 31.8 cm cm; 35 weeks 5 days, >97% FL: 6.5 cm cm; 33 weeks 3 days; 66.6 % % EFW: 2581.6 grams, 5lb 11oz, > 97% FL/AC: 20.4 FL/BPD: 74.9 HC/AC: 1.0 GESTATIONAL AGE: Age by EDC: 32 weeks 3 days ADEN by EDC: 08/04/2019 Age by US: 35 weeks 0 days ADEN by US: 3/14/24 US/US OB growth IMPRESSION: Large for gestational age, estimated weight 97th percentile Polyhydramnios Electronically authenticated by: HAMMDA FRAZIER Date: 06/12/2023 11:40 Dictated By: Hammad Frazier M.D. Signed By:06/12/23 1142 DD/ 1140 TD/TT: Psychological Anthropologist: Shiva PENA [facility] Final Result documented in this encounter Visit Diagnoses Not on filedocumented in this encounter Care Teams American Board Certified Orthotist Relationship Specialty Start Date End Date Shiva Chan PA [address] [place] [address] Dr [place], [facility]11 PCP - [facility] 05/05/24 documented as of this encounter
--- OUTSIDE RECORDS SUMMARY | 2024-11-04 15:19 | XMS_ITS | Encounter Summary ---
Author Organization [facility] Address [address] [facility] [place] [address] Care Team Providers Care Stock Supervisor Name Role Phone Erika Keith Unavailable Encounter Details Date Type Department Care Team (Late st Contact Info) Description 02/17/2023 Abstract [facility] BCP OB [address] [facility] [place] [phone] Erika Keiht PA [address] [facility] [address] [place], [place] [phone] Social History Tobacco Use Types Packs/Day Years [...] on filedocumented in this encounter Care Teams Stock Supervisor Relationship Specialty Start Date End Date Erika Keith PA [address] [place], [facility]11 PCP - [facility] 05/05/24 documented as of this encounter
--- OUTSIDE RECORDS SUMMARY | 2024-11-04 15:19 | XMS_ITS | Encounter Summary ---
Author Organization [facility] Address [address] [place] [address] Care Team Providers Care Surveyor Mine Name Role Phone Erika Keith Unavailable Encounter Details Date Type Department Care Team (Late st Contact Info) Description 03/25/2023 Abstract [facility] BCP OB [address] [place] [address] Ritu Segura LPN [address] [place] [address] [facility]11 Social History Tobacco Use Types Packs/Day [...] on filedocumented in this encounter Care Teams Surveyor Mine Relationship Specialty Start Date End Date Erika Keith PA [address] [place], [place] [phone] PCP - [facility] 05/05/24 documented as of this encounter
--- OUTSIDE RECORDS SUMMARY | 2024-11-04 15:19 | XMS_ITS | Encounter Summary ---
Author Organization [facility] Address [address] [place] [address] Care Team Providers Care Lightning Protection Installer Name Role Phone Erika Keith Unavailable Encounter Details Date Type Department Care Team (Late st Contact Info) Description 04/23/2023 Clinisync Result Encounter [facility] External Department Unsolicited Sarbjit Robledo, DO [address] [facility] [place] [address] Social History Tobacco Use Types Packs/Day Years [...] Procedure Name Priority Date/Time Associated Diagnosis Comments TBH GLUCOSE - 1HR Routine 04/23/2023 11: 52 AM EST ALL CBC WITH AUTO DIFF Routine 04/23/2023 11:52 AM EST US OB LIMITED 1+ FETUSES 04/23/2023 11:05 AM EST documented in this encounter Results * (ABNORMAL) ALL CBC WITH AUTO DIFF (04/23/2023 11:52 AM EST) [facility] Signature TBH WBC 11.2(H) 4.0 - 11.0 10 3/uL TBH TBH RBC 3.39(L) 4.20 - 5.40 10 6/uL TBH TBH HGB 8.3(L) 12.0 - 16.0 g/dL TBH TBH HCT 28.0(L) 36.0 - 48.0 % TBH TBH MCV 82.6 81.0 - 99.0 fL TBH TBH MCH 24.5(L) 26.7 - 34.0 pg TBH TBH MCHC 29.6(L) 29.9 - 35.2 g/dL TBH TBH RDW 14.0 11.0 - 15.0 % TBH TBH PLT 282 150 - 450 10 3/uL TBH TBH MPV 9.4(L) 9.5 - 13.5 fL TBH NEUTROPHILS PERCENT AUTO 75.6(H) 43.0 - 75.0 % TBH LYMPHOCYTES PERCENT AUTO 12.9(L) 20.5 - 60.0 % TBH MONOCYTES PERCENT AUTO 7.6 1.7 - 12.0 % TBH TBH EO % 1.8 0.9 - 7.0 % TBH BASOPHILS PERCENT AUTO 0.4 0.2 - 2.0 % TBH IMMATURE GRANULOCYTES PCT AUTO 1.7(H) 0.0 - 0.5 % TBH NEUTROPHILS ABSOLUTE AUTO 8.5(H) 1.4 - 6.5 10 3/uL TBH LYMPHOCYTES ABSOLUTE AUTO 1.5 1.2 - 3.8 10 3/uL TBH MONOCYTES ABSOLUTE AUTO 0.9(H) 0.3 - 0.8 10 3/uL TBH TBH EO # 0.2 0.0 - 0.7 10 3/uL TBH BASOPHILS ABSOLUTE AUTO 0.1 0.0 - 0.1 10 3/uL TBH IMMATURE GRANULOCYTES ABS AUTO 0.19(H) 0.00 - 0.03 10 3/uL TBH 04/23/2023 11:5 2 AM EST 04/23/2023 11:57 AM EST Narrative [facility] - 04/23/2023 12:29 PM EST us Sarbjit Venkat DO [facility] Final Result [facility] TB * TBH GLUCOSE - 1HR (04/23/2023 11:52 AM EST) GLUCOSE 1 HOUR 127 mg/dL TBH 04/23/2023 11:5 2 AM EST 04/23/2023 11:57 AM EST Narrative [facility] - 04/23/2023 12:17 PM EST us Sarbjit Venkat DO [facility] Final Result [facility] TB * US OB limited 1+ fetuses (04/23/2023 11:05 AM EST) Anatomical Region Laterality Modality Body Ultrasound 04/23/2023 11:0 5 AM EST Narrative 04/23/2023 11:08 [place] [address] Ultrasound Report Signed Patient: JOJO LOPEZ MR#: [id number] : 1995 Acct:[id number] Age/Sex: 27 / F ADM Date: 04/23/23 Loc: US Attending Dr: Sarbjit Robledo D.O. Ordering Physician: Sarbjit Robledo D.O. Date of Service: 04/23/23 Procedure(s): US OB limited Accession Number(s): [id number] cc: Sarbjit Robledo D.O.; Jesu Santiago M.D. The [address] [address] Patient Name: JOJO LOPEZ MRN: [id number] date: 1995 Sex: F Assigned Patient Location: US Current Patient Location: LAB Accession/Order Number: [id number] Exam Date: 04/23/2023 09:09 Report Date: 04/23/2023 11:05 At the request of: SARBJIT ROBLEDO Procedure: US OB limited EXAMINATION: US OB limited HISTORY: PROMINENT CISTERNA MAGNA COMPARISON: No relevant comparison available. FINDINGS: Placenta: anterior Amniotic fluid: subjectively normal Cisterna Magna: 4.7 mm Heart rate: 155 bpm US/US OB limited IMPRESSION: Normal cisterna magna measuring 4.7mm Electronically authenticated by: HAMMAD FRAZIER Date: 04/23/2023 11:05 Dictated By: Hammad Frazier M.D. Signed By: 04/23/23 1108 DD/ 1105 TD/TT: Paper Products Inspector: Procedure Note Radiology, Radiologist, MD - 04/23/2023 [place] [address] Ultrasound Report Signed Patient: JOJO LOPEZ RMR#: [id number] : 1995Acct:[id number] Age/Sex: 27 / FADM Date: 04/23/23 Loc: US Attending Dr: Sarbjit Robledo D.O. Ordering Physician: Sarbjit Robledo D.O. Date of Service: 04/23/23 Procedure(s): US OB limited Accession Number(s): [id number] cc: Sarbjit Robledo D.O.; Jesu Santiago M.D. The [place] [address] Patient Name: JOJO LOPEZ MRN: [id number] date: 1995 Sex: F Assigned Patient Location: US Current Patient Location: LAB Accession/Order Number: [id number] Exam Date: 04/23/2023 09:09 Report Date: 04/23/2023 11:05 At the request of: SARBJIT ROBLEDO Procedure: US OB limited EXAMINATION: US OB limited HISTORY: PROMINENT CISTERNA MAGNA COMPARISON: No relevant comparison available. FINDINGS: Placenta: anterior Amniotic fluid: subjectively normal Cisterna Magna: 4.7 mm Heart rate: 155 bpm US/US OB limited IMPRESSION: Normal cisterna magna measuring 4.7mm Electronically authenticated by: HAMMAD FRAZIER Date: 04/23/2023 11:05 Dictated By: Hammad Frazier M.D. Signed By:04/23/23 1108 DD/ 1105 TD/TT: Paper Products Inspector: us Sarbjit Venkat DO IMG OB US PROCEDURES Final Resul t documented in this encounter Visit Diagnoses Not on filedocumented in this encounter Care Teams Lightning Protection Installer Relationship Specialty Start Date End Date Erika Keith PA [address] [place] [address] Dr [place] [place] [phone] PCP - [facility] 05/05/24 documented as of this encounter
--- OUTSIDE RECORDS SUMMARY | 2024-11-04 15:19 | XMS_ITS | Encounter Summary ---
Author Organization [facility] Address [address] [facility] [place] [address] Care Team Providers Care Varnisher Plasticoater Name Role Phone Erika Keith Unavailable Encounter Details Date Type Department Care Team (Late st Contact Info) Description 04/25/2023 Abstract [facility] BCP OB [address] [place] [phone] Ritu Segura LPN [address] [place] [address] [facility]11 Social History Tobacco Use Types Packs/Day Years [...] on filedocumented in this encounter Care Teams Varnisher Plasticoater Relationship Specialty Start Date End Date Erika Keith PA [address] [facility] [address] [place], [place] [phone] PCP - [facility] 05/05/24 documented as of this encounter
--- OUTSIDE RECORDS SUMMARY | 2024-11-04 15:19 | XMS_ITS | Encounter Summary ---
Author Organization [facility] Address [address] [facility] [place] [address] Care Team Providers Care Night Worker Name Role Phone Erika Keith Unavailable Encounter Details Date Type Department Care Team (Late st Contact Info) Description 06/14/[address] [facility] OB [address] [place] [phone] Sarbjit Robledo, DO [address] [place] [address] Social History Tobacco Use Types Packs/Day Years [...] documented as of this encounter Care Teams Night Worker Relationship Specialty Start Date End Date Erika Keith PA [address] [facility] [address] [place], [facility]11 PCP - [facility] 05/05/24 documented as of this encounter
--- OUTSIDE RECORDS SUMMARY | 2024-11-04 15:19 | XMS_ITS | Encounter Summary ---
Author Organization [facility] Address [address] [place] [address] Care Team Providers Care E Merchant Name Role Phone Erika Keith Unavailable Encounter Details Date Type Department Care Team (Late st Contact Info) Description 03/19/2023 Clinisync Result Encounter [facility] External Department Unsolicited Sarbjit Robledo, DO [address] [address] [address] [place], [place] [id number] Social History Tobacco Use Types Packs/Day Years [...] Procedure Name Priority Date/Time Associated Diagnosis Comments ECG 12-LEAD 03/19/2023 12:41 PM EST AFP, SERUM, OPEN SPINA BIFIDA Routine 03/19/2023 10:43 AM EST documented in this encounter Results * ECG 12-LEAD (03/19/2023 12:41 PM EST) Anatomical Region Laterality Modality Other 03/19/2023 12:4 1 PM EST Narrative 03/19/2023 12:41 [place] [address] Electrocardiograph Report Signed Patient: JOJO LOPEZ MR#: [id number] : 1995 Acct:[id number] Age/Sex: 27 / F ADM Date: 03/19/23 Loc: CARD Attending Dr: Sarbjit Robledo D.O. Ordering Physician: Sarbjit Robledo D.O. Date of Service: 03/19/23 Procedure(s): ECG 12 lead Accession Number(s): [id number] cc: [facility] Test Date: 2023-03-19 Pat Name: JOJO LOPEZ Department: Room: - Gender: Female Geographic Area Intelligence Officer: : 1995 Requested By: SARBJIT RBOLEDO Order Number: [id number] Reading MD: DIONICIO MIMS Measurements Intervals [place] Rate: 99 P: 70 MS: 145 QRS: 71 QRSD: 91 T: 70 QT: 342 QTc: 439 Interpretive Statements SINUS RHYTHM POSSIBLE RIGHT VENTRICULAR CONDUCTION DELAY [RSR (QR) IN V1/V2] No previous ECG available for comparison Electronically Signed On 03-20-2023 6:56:48 EST by DIONICIO MIMS Dictated By: Dionicio Mims D.O. Signed By: 03/20/23 0656 03/20/23 0656 DD/ 1241 TD/TT: Associate Professor Of Communication: Procedure Note Radiology, Radiologist, MD - 03/20/2023 [facility] [place] [id number] Electrocardiograph Report Signed Patient: JOJO LOPEZ RMR#: [id number] : 1995Acct:[id number] Age/Sex: 27 / FADM Date: 03/19/23 Loc: CARD Attending Dr: Sarbjit Robledo D.O. Ordering Physician: Sarbjit Robledo D.O. Date of Service: 03/19/23 Procedure(s): ECG 12 lead Accession Number(s): [id number] cc: [facility] Test Date: 2023-03-19 Pat Name: JOJO LOPEZ Department: Room: - Gender: Female Geographic Area Intelligence Officer: : 1995 Requested By: SARBJIT ROBLEDO Order Number: [id number] Reading MD: DIONICIO MIMS Measurements Intervals [place] Rate: 99 P: 70 MS: 145 QRS: 71 QRSD: 91 T: 70 QT: 342 QTc: 439 Interpretive Statements SINUS RHYTHM POSSIBLE RIGHT VENTRICULAR CONDUCTION DELAY [RSR (QR) IN V1/V2] No previous ECG available for comparison Electronically Signed On 03-20-2023 6:56:48 EST by DIONICIO MIMS Dictated By: Dionicio Mims D.O. Signed By:03/20/23 0656 03/20/23 0656 DD/ 1241 TD/TT: Associate Professor Of Communication: us Sarbjit Robledo DO [facility] Final Result * AFP, SERUM, OPEN SPINA BIFIDA (03/19/2023 10:43 AM EST) Pathologist [facility] RESULTS Report . [facility] TEST RESULTS: See interpretati on. . [facility] GEST. AGE ON COLLECTION DATE 20.3 . weeks [facility] GESTAT. AGE BASED ON As provided . [facility] Comment: Recalculations are not recommended when gestational dating by LMP and ultrasound are within 10 days. [age] [facility] RACE . [facility] WEIGHT Comment . lbs [facility] Comment:Not provided. INSULIN DEP DIABETES No . [facility] MULTIPLE GESTATION No . [facility] AFP VALUE 58.8 . ng/mL [facility] AFP MOM See interpretati on. . TB OSBR RISK 1 IN See interpretati on. . TB INTERPRETATION Comment . [facility] Comment: Interpretation: An interpretation CANNOT be provided for this patient because necessary patient information was not provided (one or more of: gestational age, weight, or patient age). Please call us with new clinical information. Interpretation: Screen Negative This result is screen negative for OSB. The AFP MoM calculated is based on the gestational age provided. MS-AFP can identify up to 80% of open neural tube defects. Closed neural tube defects and some open defects may not be detected by this test. This test does not screen for Down Syndrome or Trisomy 18. If screening for Down Syndrome or Trisomy 18 is desired, contact [facility] to discuss available options. The [place] [employer] [place] [employer] recommends amniocentesis be offered to women age 35 and older. This is a corrected report. The previously reported result(s) were: Test Result Date First Reported Updates reported on: 04/23/2023 9:52 AM AFP MOM VALUE 03/21/2023 10:23 PM See interpretation. INTERP 03/21/2023 10:23 PM Interpretation: An interpretation CANNOT be provided for this patient because necessary patient information was not provided (one or more of: gestational age, weight, or patient age). Please call us with new clinical information. OSBR RISK 1 IN 03/21/2023 10:23 PM See interpretation. TEST RESULTS: SCREEN 03/21/2023 10:23 PM See interpretation. --- 04/23/23 1008 --- Interpretation previously reported as: Comment Interpretation: An interpretation CANNOT be provided for this patient because necessary patient information was not provided (one or more of: gestational age, weight, or patient age). Please call us with new clinical information. COMMENT: Comment . [facility] Comment: Berenice Dickens, Ph.D., [facility] Director References: Available Upon Request. Multiples Of Median Cutoffs For AFP Elevations [place] 2.5 Black 2.8 IDD 2.0 Twins 4.5 Abbreviation Definitions IDD - Insulin Dep Diabetes OSBR - Open Spina Bifida Risk For further inquiries contact [facility] at [phone]. This test was developed and its performance characteristics determined by [employer]. It has not been cleared or approved by the Food and Drug Administration. Performed at: [facility] [place], [place] [id number] Motor Lodge Clerk: Debby Cr [facility], Phone: [phone] 03/19/2023 10:4 3 AM EST 03/19/2023 10:45 AM EST Narrative [facility] - 04/23/2023 10:08 AM EST Specimen Comment: SEE END OF THIS REPORT FOR CORRECTED REPORT COMMENTS N N [id number] 2 16 N 1 Y N N N N White/ us Sarbjit Venkat DO LAB BLOOD ORDERABLES Edited Resu lt - Final [facility] documented in this encounter Visit Diagnoses Not on filedocumented in this encounter Care Teams E Merchant Relationship Specialty Start Date End Date Erika Keith PA [address] [place] [address] [place] [address] PCP - [facility] 05/05/24 documented as of this encounter
--- OUTSIDE RECORDS SUMMARY | 2024-11-04 15:19 | XMS_ITS | Encounter Summary ---
Author Organization [facility] Address [address] [place] [address] Care Team Providers Care Youth Corrections Officer Name Role Phone Erika Keith Unavailable Reason for Visit * Reason Comments Med Refill Encounter Details Date Type Department Care Team (Late st Contact Info) Description 08/05/2024 Refill [facility] [address] [place] [address] Sarbjit Robledo, DO [address] [facility] [address] [place]ain[place], [facility] Amenorrhea; Missed menses; , unspecified gestational age ([facility]); Encounter for supervision of normal first in first trimester ([facility]) Social History Tobacco Use Types Packs/Day Years [...] PM EDT documented as of this encounter Miscellaneous Notes * Telephone Encounter - Judy Barnes LPN - 08/06/2024 9:46 AM EDT Called pt to go over cx results and let her know that I would be sending in medication into her pharmacy. PVU * Telephone Encounter - Ritu Segura LPN - 08/06/2024 9:46 AM EDT Refill requested and script sent. documented in this encounter Plan of Treatment Not on file documented as of this encounter Goals Goal Patient Goal Type Associated Problems Recent Progress Patient-Stated? Author Reminders Care Plan OB Reminders No Open Scheduling, Background documented as of this encounter Visit Diagnoses Diagnosis Amenorrhea Absence of menstruation Missed menses , unspecified gestational age ([facility]) Encounter for supervision of normal first in first trimester ([facility]) documented in this encounter Additional Health Concerns Active Problems Noted Date Diagnosed Date OB Reminders 06/10/2024 documented as of this encounter Care Teams Youth Corrections Officer Relationship Specialty Start Date End Date Erika Keith PA [address] [place] [address] [place] [address] PCP - [facility] 05/05/24 documented as of this encounter
--- NOTE | 2024-11-04 15:20 | US_ITS ---
[address] [address] Patient Name: KRISSY LOPEZ MRN: [id number] date: 1995 Sex: F Assigned Patient Location: US Current Patient Location: Accession/Order Number: [id number] Exam Date: 11/04/2024 15:54 Report Date: 11/04/2024 15:56 At the request of: MARY MARIE DO Procedure: US OB growth Growth ultrasound. Reason for exam: Thyroid disease. COMPARISON: Growth ultrasound 08/04/2024. TECHNIQUE: Transabdominal imaging of the gravid uterus was obtained. FINDINGS: Single live intrauterine 37 weeks 5 days by anatomic measurements. Appropriate growth by dating. Estimated weight 3450 g which is the 86th percentile. EZEKIEL is normal at 15.23 cm. heart rate 171 bpm. position is cephalic at time of scanning. Next US/US OB growth IMPRESSION: Single live intrauterine 37 weeks 5 days by anatomic measurements. Appropriate growth by dating. Impression dictated by: Scottie Thompson Jr., D.O. 11/04/2024 3:56 PM Dictation Location: [place] [address] Electronically authenticated by: [id number] Y Date: 11/04/2024 15:56
--- OUTSIDE RECORDS SUMMARY | 2024-11-04 15:20 | XMS_ITS | Encounter Summary ---
Author Organization [facility] Address [address] [facility] [place] [address] Care Team Providers Care Pull Socket Assembler Name Role Phone Erika Keith Unavailable Encounter Details Date Type Department Care Team (Late st Contact Info) Description 01/22/2024 Abstract [facility] OB [address] [facility] [place] [phone] Sarbjit Robledo, DO [address] [facility] [place] [place], [place] [id number] Social History Tobacco Use Types Packs/Day Years Used Date Smoking Tobacco: Never Smokeless Tobacco: Never Alcohol Use Standard Drinks/Week Comments Never 0 (1 standard drink = 0.6 oz pur e alcohol) Comments No Sex and Gender Information Value Date Recorded Sex Assigned at Female 10/20/2022 3:45 PM EDT Legal Sex Female 11:47 PM EDT Gender Identity Female 10/20/2022 3:45 PM EDT Sexual Orientation Bisexual 10/20/2022 3: 45 PM EDT documented as of this encounter Plan of Treatment Not on file documented as of this encounter Visit Diagnoses Not on filedocumented in this encounter Care Teams Pull Socket Assembler Relationship Specialty Start Date End Date Erika Keith PA [address] [facility] [place], [place] [phone] PCP - [facility] 05/05/24 documented as of this encounter
--- OUTSIDE RECORDS SUMMARY | 2024-11-04 15:20 | XMS_ITS | Encounter Summary ---
Author Organization [facility] Address [address] [facility] [place] [address] Care Team Providers Care Superintendent Factory Name Role Phone Erika Keith Unavailable Encounter Details Date Type Department Care Team (Late st Contact Info) Description 07/15/2023 Abstract [facility] BCP OB [address] [place] [phone] Aida Strauss LPN Social History Tobacco Use Types Packs/Day Years [...] on filedocumented in this encounter Care Teams Superintendent Factory Relationship Specialty Start Date End Date Erika Keith PA [address] [place], [facility] PCP - [facility] 05/05/24 documented as of this encounter
--- OUTSIDE RECORDS SUMMARY | 2024-11-04 15:20 | XMS_ITS | Encounter Summary ---
Author Organization [facility] Address [address] [place] [address] Care Team Providers Care Middle School Band Teacher Name Role Phone Erika Keith Unavailable Encounter Details Date Type Department Care Team (Latest Contact Info) Description 11/01/2024 Travel Social History Tobacco Use Types Packs/Day Years [...] documented as of this encounter Care Teams Middle School Band Teacher Relationship Specialty Start Date End Date Erika Keith PA [address] [place] [address] [place] [address] PCP - [facility] 05/05/24 documented as of this encounter
--- OUTSIDE RECORDS SUMMARY | 2024-11-04 15:20 | XMS_ITS | Patient Health Record ---
Author Organization The [facility] in [place] Address [address] [place] [address] Care Team Providers Care Operating Room Technician Name Role Phone Parish Santiago Primary Care Provider Allergies Allergen (clinical drug ingredient) Drug/Non Drug Allergy documented on EMR Reaction Allergy Type Onset Date Status amoxicillin Amoxicillin hives Drug Allergy Act beatrice Latex Latex hives Allergy Active Results Component Value Reference Range Notes PREG ([facility]), URINE - IN OFFI CE Reviewed date:01/21/2024 01:40:23 PM Interpretation: Performing Lab: Notes/Report: PREG ([facility]), URINE - IN OFFICE Positive NEG - NEG Control Present Yes PROF 14(COMP METB) Reviewed date:01/21/2024 05:34:53 PM Interpretation: Performing Lab: Notes/Report: [facility] , Sodium 138 136-145 mmol/L Potassium 3.3 3.5-5.1 mmol/L Chloride 104 98-107 mmol/L Carbon Dioxide 31.7 21.0-32.0 mmol/L Anion Gap 5.6 Glucose 88 74-106 mg/dL Blood Urea Nitrogen 9.0 7.0-18.0 mg/dL Creatinine 0.68 0.55-1.02 mg/dL Estimated GFR ( Yue >60 >=60 Estimated GFR (Non- Suni >60 >=60 BUN Creatinine Ratio 13.2 Calcium 8.8 8.5-10.1 mg/dL Bilirubin Total 0.7 0.2-1.0 mg/dL Aspartate Amino Transferase 9 15-37 U/L Alanine Aminotransferase 15 14-59 U/L Alkaline Phosphatase 79 46-116 U/L Total Protein 7.6 6.4-8.2 g/dL Albumin Level 4.0 3.4-5.0 g/dL Globulin 3.6 Albumin Globulin Ratio 1.1 Performing Lab: see note ML - [facility] LB BNP Reviewed date:05/16/2024 10:07:57 AM Interpretation: Performing Lab: Notes/Report: [facility] , NT Pro B Type Natriuretic Pept 22.0 <=450.0 pg/mL Performing Lab: see note ML - [facility] LB PREG QUANT HCG Reviewed date:06/23/2024 06:58:56 PM Interpretation: Performing Lab: Notes/Report: [facility] , HCG Quantitative 866215 5-50 0.2-1 WEEK 50-500 1-2 WEEKS 100-5,000 2-3 WEEKS 500-10,000 3-4 WEEKS 1,000-50,000 4-5 WEEKS 10,000-100,000 5-6 WEEKS 15,000-200,000 6-8 WEEKS 10,000-100,000 2-3 MONTHS Performing Lab: see note ML - [facility] LB CBC AUTO DIFF Reviewed date:05/16/2024 10:07:57 AM Interpretation: Performing Lab: Notes/Report: [facility] , White Blood Count 5.9 4.0-11.0 10 3/uL Red Blood Count 4.12 4.20-5.40 10 6/uL Hemoglobin 12.4 12.0-16.0 g/dL Hematocrit 36.2 36.0-48.0 % Mean Corpuscular Volume 87.9 81.0-99.0 fL Mean Corpuscular Hemoglobin 30.1 26.7-34.0 pg Mean Corpuscular HGB Conc 34.3 29.9-35.2 g/dL Red Cell Distribution Width 12.8 11.0-15.0 % Platelet Count 263 150-450 10 3/uL Mean Platelet Volume 9.7 9.5-13.5 fL Neutrophils Percent Auto 61.4 43.0-75.0 % Lymphocytes Percent Auto 22.7 20.5-60.0 % Monocytes Percent Auto 12.1 1.7-12.0 % Eosinophils Percent Auto 3.2 0.9-7.0 % Basophils Percent Auto 0.3 0.2-2.0 % Immature Granulocytes Pct Auto 0.3 0.0-0.5 % Neutrophils Absolute Auto 3.6 1.4-6.5 10 3/uL Lymphocytes Absolute Auto 1.3 1.2-3.8 10 3/uL Monocytes Absolute Auto 0.7 0.3-0.8 10 3/uL Eosinophils Absolute Auto 0.2 0.0-0.7 10 3/uL Basophils Absolute Auto 0.0 0.0-0.1 10 3/uL Immature Granulocytes Abs Auto 0.02 0.00-0.03 10 3/uL Performing Lab: see note ML - [facility] FREE T3 Reviewed date:05/16/2024 10:07:57 AM Interpretation: Performing Lab: Notes/Report: [facility] , Free T3 2.51 2.18-3.98 pg/mL Performing Lab: see note - [facility] GLYCOHEMOGLOBIN A1C Reviewed date:05/16/2024 10:07:57 AM Interpretation: Performing Lab: Notes/Report: [facility] , Glycohemoglobin A1C 4.8 4.5-6.2 % ADA RECOMMENDED LIMIT 4.0 - 6.0 ADA THERAPEUTIC TARGET < 7.0 ACTION SUGGESTED > 7.0 Estimated Average Glucose 91 Performing Lab: see note - [facility] INSULIN Reviewed date:05/16/2024 10:07:57 AM Interpretation: Performing Lab: Notes/Report: [facility] , Insulin 4.4 2.6-24.9 uIU/mL Performed at: - [facility] [address] [id number] Laminating Machine Tender: John Leonard PhD, Phone: [phone] Performing Lab: see note - [facility] LB IRON Reviewed date:05/16/2024 10:07:57 AM Interpretation: Performing Lab: Notes/Report: [facility] , Iron 79.0 50.0-170.0 ug/dL Performing Lab: see note - [facility] LIPID PROFILE Reviewed date:05/16/2024 10:07:57 AM Interpretation: Performing Lab: Notes/Report: [facility] , Triglycerides 36 <=150 mg/dL Cholesterol 143 <=200 mg/dL HDL Cholesterol 45 40-60 mg/dL > or =60 mg/dl - LOW CARDIOVASCULAR RISK <40 mg/dl - HIGH CARDIOVASCULAR RISK LDL Cholesterol Calculated 90.8 <100 mg/dl OPTIMAL 100-129 mg/dl NEAR OR ABOVE OPTIMAL 130-159 mg/dl BORDERLINE HIGH 160-189 mg/dl HIGH >190 mg/dl VERY HIGH VLDL CHOLESTEROL 7.2 Chol HDL Ratio 3.2 3.3 - 4.4 LOW RISK 4.4 - 7.1 AVERAGE RISK 7.1 - 11.0 MODERATE RISK >11.0 HIGH RISK Performing Lab: see note - [facility] LB PROF 14(COMP METB) Reviewed date:05/16/2024 10:07:57 AM Interpretation: Performing Lab: Notes/Report: [facility] , Sodium 139 136-145 mmol/L Potassium 3.8 3.5-5.1 mmol/L Chloride 102 98-107 mmol/L Carbon Dioxide 28.4 21.0-32.0 mmol/L Anion Gap 12.4 Glucose 88 74-106 mg/dL Blood Urea Nitrogen 5.0 7.0-18.0 mg/dL Creatinine 0.58 0.55-1.02 mg/dL Estimated GFR ( Yue >60 >=60 mL/min/1.73m 2 Estimated GFR (Non- Suni >60 >=60 mL/min/1.73m 2 BUN Creatinine Ratio 8.6 Calcium 9.1 8.5-10.1 mg/dL Bilirubin Total 0.6 0.2-1.0 mg/dL Aspartate Amino Transferase 10 15-37 U/L Alanine Aminotransferase 12 14-59 U/L Alkaline Phosphatase 51 46-116 U/L Total Protein 7.5 6.4-8.2 g/dL Albumin Level 3.9 3.4-5.0 g/dL Globulin 3.6 Albumin Globulin Ratio 1.1 Performing Lab: see note ML - [facility] LB T4 Reviewed date:05/16/2024 10:07:57 AM Interpretation: Performing Lab: Notes/Report: [facility] , T4 Thyroxine 7.00 4.80-13.90 ug/dL Performing Lab: see note ML - [facility] LB TSH Reviewed date:05/16/2024 10:07:57 AM Interpretation: Performing Lab: Notes/Report: [facility] , Thyroid Stimulating Hormone 9.326 0.358-3.740 uIU/mL Performing Lab: see note ML - [facility] LB VITAMIN D 25 [place] Reviewed date:05/16/2024 10:07:57 AM Interpretation: Performing Lab: Notes/Report: [facility] , Vitamin D 7.6 <20 ng/mL Vit D deficient 20-<30 ng/mL Vit D insufficient 30-100 ng/mL Vit D sufficient >100 ng/mL Potential Toxicity Performing Lab: see note ML - [facility] LB Troponin I High Sensitivity Reviewed date:05/16/2024 10:07:57 AM Interpretation: Performing Lab: Notes/Report: [facility] , Troponin I High Sensitivity <4.0 4.0-51.3 pg/mL CUT-OFF POINTS HAVE BEEN ESTABLISHED BASED ON THE FOURTH UNIVERSAL DEFINITION OF MYOCARDIAL INFARCTION. THE UPPER REFERENCE LIMIT (URL) OF TROPONIN, DEFINED THE 99TH PERCENTILE OF cTnI DISTRIBUTION IN A REFERENCE POPULATION, HAS BEEN CONFIRMED THE DECISION THRESHOLD FOR SD DIAGNOSIS. 99TH PERCENTILE = 51.4 PG/ML NOTE: HIGH-SENSITIVITY TROPONIN ASSAY IS NOT INTENDED TO BE USED IN ISOLATION BUT SHOULD BE INTERPRETED IN CONJUNCTION WITH OTHER DIAGNOSTIC AND CLINICAL INFORMATION. Performing Lab: see note ML - [facility] LB CBC AUTO DIFF Reviewed date:05/27/2024 05:35:22 PM Interpretation: Performing Lab: Notes/Report: [facility] , White Blood Count 5.7 4.0-11.0 10 3/uL Red Blood Count 3.79 4.20-5.40 10 6/uL Hemoglobin 11.5 12.0-16.0 g/dL Hematocrit 34.1 36.0-48.0 % Mean Corpuscular Volume 90.0 81.0-99.0 fL Mean Corpuscular Hemoglobin 30.3 26.7-34.0 pg Mean Corpuscular HGB Conc 33.7 29.9-35.2 g/dL Red Cell Distribution Width 13.2 11.0-15.0 % Platelet Count 242 150-450 10 3/uL Mean Platelet Volume 9.7 9.5-13.5 fL Neutrophils Percent Auto 67.0 43.0-75.0 % Lymphocytes Percent Auto 19.8 20.5-60.0 % Monocytes Percent Auto 9.7 1.7-12.0 % Eosinophils Percent Auto 2.7 0.9-7.0 % Basophils Percent Auto 0.4 0.2-2.0 % Immature Granulocytes Pct Auto 0.4 0.0-0.5 % Neutrophils Absolute Auto 3.8 1.4-6.5 10 3/uL Lymphocytes Absolute Auto 1.1 1.2-3.8 10 3/uL Monocytes Absolute Auto 0.6 0.3-0.8 10 3/uL Eosinophils Absolute Auto 0.2 0.0-0.7 10 3/uL Basophils Absolute Auto 0.0 0.0-0.1 10 3/uL Immature Granulocytes Abs Auto 0.02 0.00-0.03 10 3/uL Performing Lab: see note ML - [facility] LB DRUG SCREEN RAPID (URINE) Reviewed date:05/27/2024 05:35:22 PM Interpretation: Performing Lab: Notes/Report: [facility] , Cannabinoid Screen Urine NEGATIVE NEGATIVE Phencyclidine Screen Urine NEGATIVE NEGATIVE Cocaine Screen Urine NEGATIVE NEGATIVE Methamphetamines Screen Urine NEGATIVE NEGATIVE Opiate Screen Urine NEGATIVE NEGATIVE Amphetamine Screen Urine NEGATIVE NEGATIVE Benzodiazepines Screen Urine NEGATIVE NEGATIVE Tricyclic Antidepressant Urine NEGATIVE NEGATIVE Methadone Screen Urine NEGATIVE NEGATIVE Barbiturates Screen Urine NEGATIVE NEGATIVE Oxycodone Screen Urine NEGATIVE NEGATIVE Buprenorphine Screen Urine NEGATIVE NEGATIVE DRUG CLASS TEST SYSTEM CUT-OFF CONCENTRATIONS ARE FOLLOWS: AMP (Amphetamine): 500 ng/mL BAR (Barbiturates): 200 ng/mL BZO (Benzodiazepines): 150 ng/mL BUP (Buprenorphine): 10 ng/mL PAXTON (Cocaine): 150 ng/mL mAMP (Methamphetamine): 500 ng/mL MTD (Methadone): 200 ng/mL OPI (Opiates): 100 ng/mL OXY (Oxycodone): 100 ng/mL PCP (Phencyclidine): 25 ng/mL THC (Cannabinoids): 50 ng/mL TCA (Trycyclic Antidepressants): 300 ng/mL Performing Lab: see note ML - [facility] LB FERRITIN Reviewed date:05/27/2024 05:35:22 PM Interpretation: Performing Lab: Notes/Report: [facility] , Ferritin 39.0 8.0-252.0 ng/mL Performing Lab: see note ML - [facility] LB GLYCOHEMOGLOBIN A1C Reviewed date:05/27/2024 05:35:22 PM Interpretation: Performing Lab: Notes/Report: [facility] , Glycohemoglobin A1C 4.8 4.5-6.2 % ADA RECOMMENDED LIMIT 4.0 - 6.0 ADA THERAPEUTIC TARGET < 7.0 ACTION SUGGESTED > 7.0 Estimated Average Glucose 91 Performing Lab: see note ML - [facility] LB TSH Reviewed date:05/27/2024 05:35:22 PM Interpretation: Performing Lab: Notes/Report: [facility] , Thyroid Stimulating Hormone 7.047 0.358-3.740 uIU/mL Performing Lab: see note ML - [facility] LB Type and Screen Reviewed date:05/27/2024 05:35:22 PM Interpretation: Performing Lab: Notes/Report: [facility] , Blood Type O Positive Antibody Screen NEGATIVE Rapid Plasma Reagin, Quant Reviewed date:05/30/2024 12:08:52 PM Interpretation: Performing Lab: Notes/Report: [facility] , Rapid Plasma Reagin, Quant Non Reactive NonRea<1:1 titer Please Note: This test does not meet current guidelines for screening and diagnosis of syphilis. This test is intended for following treatment response in patients being treated for syphilis infection. To screen for syphilis infection, a reflex cascade that includes both RPR and a treponema-specific assay should be utilized, such as Treponema pallidum (Syphilis) Screening [place] (079278) or Rapid Plasma Reagin (RPR) Test With Reflex to Quantitative RPR and Confirmatory Treponema pallidum Antibodies (893511). Performed at: [address] [id number] Laminating Machine Tender: John Leonard PhD, Phone: [phone] Performing Lab: see note - [facility] LB HBsAg Screen Reviewed date:05/30/2024 12:08:52 PM Interpretation: Performing Lab: Notes/Report: [facility] , HBsAg Screen Negative Negative Performed at: [address] [id number] Laminating Machine Tender: John Leonard PhD, Phone: [phone] Performing Lab: see note - [facility] LB Glucose 1 Hour Reviewed date:05/27/2024 05:35:22 PM Interpretation: Performing Lab: Notes/Report: [facility] , Glucose 1 Hour 83 <130 mg/dL Performing Lab: see note ML - [facility] LB Urine Culture, Routine Reviewed date:05/30/2024 12:08:52 PM Interpretation: Performing Lab: Notes/Report: [facility] , Urine Culture, Routine See Below For Report Urine Culture, Routine Urine Culture, Routine Culture shows les s than 10,000 colony forming units of bacteria per Urine Culture, Routine Urine Culture, Routine milliliter of uri ne. This colony count is not generally considered Urine Culture, Routine Urine Culture, Routine to be clinically significant. Urine Culture, Routine Urine Culture, Routine Performed at: [facility] Urine Culture, Routine Urine Culture, Routine [address] [place], [place] [id number] Urine Culture, Routine Urine Culture, Routine Laminating Machine Tender: Harshad Leonard PhD, Phone: [phone] Urine Culture, Routine Performing Lab: see note LC - [facility] LB SEE REPORT - Food Beverage Attendant Id information not found for OBX-specific digital content producer legend DRUG SCREEN RAPID (URINE) Reviewed date:08/04/2024 07:40:22 PM Interpretation: Performing Lab: Notes/Report: [facility] , Cannabinoid Screen Urine NEGATIVE NEGATIVE Phencyclidine Screen Urine NEGATIVE NEGATIVE Cocaine Screen Urine NEGATIVE NEGATIVE Methamphetamines Screen Urine NEGATIVE NEGATIVE Opiate Screen Urine NEGATIVE NEGATIVE Amphetamine Screen Urine NEGATIVE NEGATIVE Benzodiazepines Screen Urine NEGATIVE NEGATIVE Tricyclic Antidepressant Urine NEGATIVE NEGATIVE Methadone Screen Urine NEGATIVE NEGATIVE Barbiturates Screen Urine NEGATIVE NEGATIVE Oxycodone Screen Urine NEGATIVE NEGATIVE Buprenorphine Screen Urine NEGATIVE NEGATIVE DRUG CLASS TEST SYSTEM CUT-OFF CONCENTRATIONS ARE FOLLOWS: AMP (Amphetamine): 500 ng/mL BAR (Barbiturates): 200 ng/mL BZO (Benzodiazepines): 150 ng/mL BUP (Buprenorphine): 10 ng/mL PAXTON (Cocaine): 150 ng/mL mAMP (Methamphetamine): 500 ng/mL MTD (Methadone): 200 ng/mL OPI (Opiates): 100 ng/mL OXY (Oxycodone): 100 ng/mL PCP (Phencyclidine): 25 ng/mL THC (Cannabinoids): 50 ng/mL TCA (Trycyclic Antidepressants): 300 ng/mL Performing Lab: see note ML - [facility] LB TSH Reviewed date:08/04/2024 07:40:22 PM Interpretation: Performing Lab: Notes/Report: [facility] , Thyroid Stimulating Hormone 2.735 0.358-3.740 uIU/mL Performing Lab: see note ML - [facility] LB IGP,Aptima HPV,Age Gdln Reviewed date:08/10/2024 03:20:17 PM Interpretation: Performing Lab: Notes/Report: BRUSH-SPATULA CERVIX ENDOCERVIX [facility] , Age Gdln ACOG Testing Note . TESTS RESULT FLAG UNITS REF RANGE LAB Clinician Provided Cytology Information Source.............Cerv ix;Endocervix No. of containers..01 ThinPrep Vial Age Algo ACOG Mandy... FLAG LEGEND: L-Low Normal,H-High Normal,LL-Alert Low,HH-Alert High <-Panic Low,>-Panic High,A-Abnormal,AA-Crit ical Abnormal Performed at: 01 =G [facility] [address] [place] [address] Linda Patel MD, IGP, rfx Aptima HPV ASCU Note . TESTS RESULT FLAG UNITS REF RANGE LAB DIAGNOSIS: 02 NEGATIVE FOR INTRAEPITHELIAL LESION OR MALIGNANCY. Specimen adequacy: 02 Satisfactory for evaluation. No endocervical component is identified. Performed by: 02 Morena Leonard Linux Systems Analyst ([employer]) . 02 Note: Note 03 The Pap smear is a screening test designed to aid in the detection of premalignant and malignant conditions of the uterine cervix. It is not a diagnostic procedure and should not be used as the sole means of detecting cervical cancer. Both false-positive and false-negative reports do occur. Test Methodology: Note 03 This liquid based ThinPrep(R) pap test was screened with the use of an image guided system. . 02 The HPV DNA reflex criteria were not met with this specimen result therefore, no HPV testing was performed. FLAG LEGEND: L-Low Normal,H-High Normal,LL-Alert Low,HH-Alert High <-Panic Low,>-Panic High,A-Abnormal,AA-Crit ical Abnormal Performed at: 02 [facility] [address] [place] [address] Robert Zamudio MD, 03 WB [facility] [address] [address] Linda Patel MD, Performed at: =G - [facility] [address] [id number] Laminating Machine Tender: Linda Patel MD, Phone: [phone] Performed at: [facility] - [facility] [address] [place], [place] [id number] Laminating Machine Tender: Robert Zamudio MD, Phone: [phone] Performing Lab: see note LC - [facility] LB AFP, Serum, Open Spina Bifid a Reviewed date:08/08/2024 03:27:21 PM Interpretation: Performing Lab: Notes/Report: N N ULTRASOUND [id number] 6 23 N 1 Y 152 N N N N N White/ [facility] , Results Report . Test Results: *Screen Negative* . Gest. Age on Collection Date 23.9 . weeks Gestat. Age Based On Ultrasound . 23.9 on 08/04/2024 Recalculations are not recommended when gestational dating by LMP and ultrasound are within 10 days. [age] 29.1 [age] Race . Weight 152 . lbs Insulin Dep Diabetes No . Multiple Gestation No . AFP Value 81.3 . ng/mL AFP MoM 0.86 . OSBR Risk 1 [place] [address] . Interpretation Comment . Interpretation: Screen Negative This result is screen [...] Customer Services to discuss available options. The [place] [employer] recommends amniocentesis be offered to women age 35 and older. Comment: Comment . Berenice Dickens, Ph.D., [facility] Director References: Available Upon Request. Multiples Of Median Cutoffs For AFP Elevations Lina[place] 2.5 Black 2.8 IDD 2.0 Twins 4.5 Abbreviation Definitions IDD - Insulin Dep Diabetes OSBR - Open Spina Bifida Risk For further inquiries contact [employer] at [phone]. This test was developed and its performance characteristics determined by [employer] ([employer]). It has not been cleared or approved by the Food and Drug Administration. Performed at: [facility] [address] [place], [place] [id number] Laminating Machine Tender: Debby Cr [facility], Phone: [phone] Performing Lab: see note - [facility] LB QuantiFERON-TB Gold Plus Reviewed date:08/09/2024 01:28:24 PM Interpretation: Performing Lab: Notes/Report: [facility] , QuantiFERON Incubation . Incubation performed. Reference Range: . QuantiFERON-TB Gold Plus Negative Negative No response to M tuberculosis antigens detected. Infection with M tuberculosis is unlikely, but high risk individuals should be considered for additional testing (ATS/IDSA/CDC Clinical Practice Guidelines, 2017). The reference range is an Antigen minus Nil result of <0.35 IU/mL. Chemiluminescence immunoassay methodology Performed at: [facility] [id number] Laminating Machine Tender: John Leonard PhD, Phone: [phone] QuantiFERON Criteria Comment . QuantiFERON-TB Gold Plus is a qualitative indirect test for M tuberculosis infection (including disease) and is intended for use in conjunction with risk assessment, radiography, and other medical and diagnostic evaluations. The QuantiFERON-TB Gold Plus result is determined by subtracting the Nil value from either TB antigen (Ag) value. The Mitogen tube serves as a control for the test. QuantiFERON TB1 Ag Value 0.06 . IU/mL QuantiFERON TB2 Ag Value 0.07 . IU/mL QuantiFERON Nil Value 0.05 . IU/mL QuantiFERON Mitogen Value >10.00 . IU/mL Performing Lab: see note [facility] US OB growth Reviewed date:08/04/2024 07:40:22 PM Interpretation: Performing Lab: Notes/Report: Source Facility: [place] [address] Ultrasound Report Signed Patient: JOJO LOPEZ MR#: [id number] : 1995 Acct:[id number] Age/Sex: 28 / F ADM Date: 08/04/24 Loc: US Attending Dr: Mary Robledo D.O. Ordering Physician: Mary Robledo D.O. Date of Service: 08/04/24 Procedure(s): US OB growth Accession Number(s): [id number] cc: Mary Robledo D.O.; Jesu Santiago M.D. The [place] [address] Patient Name: JOJO LOPEZ MRN: [id number] date: 1995 Sex: F Assigned Patient Location: US Current Patient Location: US Accession/Order Number: [id number] Exam Date: 08/04/2024 14:32 Report Date: 08/04/2024 [...] Rhett Maurer M.D.08/04/2024 2:36 PM Dictation Location: [place] [address] Electronically authenticated by: [id number] Y Date: 08/04/2024 14:36 Dictated By: Rhett Maurer D.O. Signed By: 08/04/24 1439 DD/ 1436 TD/TT: Imaging Assistant: [place] [address] Ultrasound Report Signed Patient: JOJO LOPEZ MR#: [id number] : 1995 Acct:[id number] Age/Sex: 28 / F ADM Date: 08/04/24 Loc: US Attending Dr: Mary Robledo D.O. Ordering Physician: Mary Robledo D.O. Date of Service: 08/04/24 Procedure(s): US OB growth Accession Number(s): [id number] cc: Mary Robledo D.O. ; Jesu Santiago M.D. [address] [address] Patient Name: JOJO LOPEZ MRN: [id number] date: 1995 Sex: F Assigned Patient Location: US Current Patient Location: US Accession/Order Number: [id number] Exam Date: 08/04/2024 14:32 Report Date: 08/04/2024 14:36 At the request of: MARY ROBLEDO DO Procedure: US OB growth Ultrasound obstetric al growth examination HISTORY: Inconsisten t size and with dates. Atrophy is of the cephalic presentation. The lie is longitudinal. The amniotic fluid is subjectively normal. The heart rate is 158 bpm. The aspirated weig ht is 648 g with weight percentile of 47%. The biparietal diameter 5.7 cm consistent with 23 weeks 3 days. Head circumference 21.4 cm consistent with 23 weeks 3 days. Abdominal circumference 19.7 cm consistent with 24 weeks 2 days. Femur length 4.2 cm consistent wi th 23 weeks 5 days. The average gestational age with ultrasound is 23 wee ks 5 days. US/US OB growth IMPRESSION: Single live intrauterine gestation 23 weeks 5 days. Impression dictated by: Rhett Maurer M.D.08/04/2024 2:36 PM Dictation Location: Indexing Electronically authenticated by: [id number] Y Date: 08/04/2024 14:36 Dictated By: Rhett Maurer D.O. Signed By: 08/04/24 1439 DD/ 1436 TD/TT: Imaging Assistant: Glucose 1 Hour Reviewed date:09/08/2024 08:01:55 PM Interpretation: Performing Lab: Notes/Report: [facility] , Glucose 1 Hour 145 <130 mg/dL Performing Lab: see note ML - [facility] LB Strep Gp B Culture+Rflx Reviewed date:10/31/2024 01:25:18 PM Interpretation: Performing Lab: Notes/Report: [facility] , Strep Gp B Culture+Rflx See Below For Report Strep Gp B Culture+Rflx Strep Gp B Culture+Rflx Negative Strep Gp B Culture+Rflx Strep Gp B Culture+Rflx Centers for Dise ase Control and Prevention (CDC) and Strep Gp B Culture+Rflx Strep Gp B Culture+Rflx [employer] Strep Gp B Culture+Rflx Strep Gp B Culture+Rflx (ACOG) guideline s for prevention of group B Strep Gp B Culture+Rflx Strep Gp B Culture+Rflx streptococcal (G BS) disease specify co-collection of Strep Gp B Culture+Rflx Strep Gp B Culture+Rflx a vaginal and re ctal swab specimen to maximize Strep Gp B Culture+Rflx Strep Gp B Culture+Rflx sensitivity of G BS detection. Per the CDC and ACOG, Strep Gp B Culture+Rflx Strep Gp B Culture+Rflx swabbing both th e lower vagina and rectum Strep Gp B Culture+Rflx Strep Gp B Culture+Rflx substantially increases the yield of detection Strep Gp B Culture+Rflx Strep Gp B Culture+Rflx compared with sa mpling the vagina alone. Strep Gp B Culture+Rflx Strep Gp B Culture+Rflx Penicillin G, ampicillin, or cefazolin are indicated Strep Gp B Culture+Rflx Strep Gp B Culture+Rflx for intrapartum prophylaxis of GBS Strep Gp B Culture+Rflx Strep Gp B Culture+Rflx colonization. Re flex susceptibility testing should be Strep Gp B Culture+Rflx Strep Gp B Culture+Rflx performed prior to use of clindamycin only on GBS Strep Gp B Culture+Rflx Strep Gp B Culture+Rflx isolates from penicillin-allergic women who are Strep Gp B Culture+Rflx Strep Gp B Culture+Rflx considered a hig h risk for anaphylaxis. Treatment with Strep Gp B Culture+Rflx Strep Gp B Culture+Rflx vancomycin witho ut additional testing is warranted if Strep Gp B Culture+Rflx Strep Gp B Culture+Rflx resistance to clindamycin is noted. Strep Gp B Culture+Rflx Strep Gp B Culture+Rflx Performed at: - [facility] Strep Gp B Culture+Rflx Strep Gp B Culture+Rflx [address], [place] [id number] Strep Gp B Culture+Rflx Strep Gp B Culture+Rflx Laminating Machine Tender: Lia Leonard PhD, Phone: [phone] Strep Gp B Culture+Rflx Performing Lab: see note LC - [facility] LB SEE REPORT - Food Beverage Attendant Id information not found for OBX-specific digital content producer legend CBC AUTO DIFF Reviewed date:09/08/2024 08:01:55 PM Interpretation: Performing Lab: Notes/Report: [facility] , White Blood Count 10.4 4.0-11.0 10 3/uL Red Blood Count 3.33 4.20-5.40 10 6/uL Hemoglobin 9.9 12.0-16.0 g/dL Hematocrit 29.9 36.0-48.0 % Mean Corpuscular Volume 89.8 81.0-99.0 fL Mean Corpuscular Hemoglobin 29.7 26.7-34.0 pg Mean Corpuscular HGB Conc 33.1 29.9-35.2 g/dL Red Cell Distribution Width 13.8 11.0-15.0 % Platelet Count 238 150-450 10 3/uL Mean Platelet Volume 9.3 9.5-13.5 fL Neutrophils Percent Auto 73.1 43.0-75.0 % Lymphocytes Percent Auto 12.9 20.5-60.0 % Monocytes Percent Auto 9.0 1.7-12.0 % Eosinophils Percent Auto 2.0 0.9-7.0 % Basophils Percent Auto 0.3 0.2-2.0 % Immature Granulocytes Pct Auto 2.7 0.0-0.5 % Neutrophils Absolute Auto 7.6 1.4-6.5 10 3/uL Lymphocytes Absolute Auto 1.3 1.2-3.8 10 3/uL Monocytes Absolute Auto 0.9 0.3-0.8 10 3/uL Eosinophils Absolute Auto 0.2 0.0-0.7 10 3/uL Basophils Absolute Auto 0.0 0.0-0.1 10 3/uL Immature Granulocytes Abs Auto 0.28 0.00-0.03 10 3/uL Performing Lab: see note - [facility] LB Box Test Reviewed date:05/27/2024 05:35:22 PM Interpretation: Performing Lab: Notes/Report: [facility] , BOX Test Sent Out [facility] BOX Test Reference Lab [facility] BOX Test Date Sent 05/27/23 Performing Lab: see note - [facility] LB HCV Antibody RFX to Quant PC R Reviewed date:05/30/2024 12:08:52 PM Interpretation: Performing Lab: Notes/Report: [facility] , HCV Ab Non Reactive Non Reactive Interpretation: Comment . Not infected with HCV unless early or acute infection is suspected (which may be delayed in an immunocompromised individual), or other evidence exists to indicate HCV infection. Performing Lab: see note LC - [facility] LB HIV Ab/p24 Ag with Reflex Reviewed date:05/30/2024 12:08:51 PM Interpretation: Performing Lab: Notes/Report: [facility] , HIV Ab/p24 Ag Screen Non Reactive Non Reactive HIV-1/HIV-2 antibodies and HIV-1 p24 antigen were NOT detected. There is no laboratory evidence of HIV infection. HIV Negative Performed at: [address] [id number] Laminating Machine Tender: John Leonard PhD, Phone: [phone] Performing Lab: see note - [facility] LB RUBELLA AB IGG Reviewed date:05/30/2024 12:08:51 PM Interpretation: Performing Lab: Notes/Report: [facility] , Rubella Antibodies, IgG 1.25 Immune > 0.99 index Non-immune <0.90 Equivocal 0.90 - 0.99 Immune >0.99 Performing Lab: see note [facility] PREG QUANT HCG Reviewed date:01/26/2024 02:16:48 PM Interpretation: Performing Lab: Notes/Report: [facility] , HCG Quantitative <1 5-50 0.2-1 WEEK 50-500 1-2 WEEKS 100-5,000 2-3 WEEKS 500-10,000 3-4 WEEKS 1,000-50,000 4-5 WEEKS 10,000-100,000 5-6 WEEKS 15,000-200,000 6-8 WEEKS 10,000-100,000 2-3 MONTHS Performing Lab: see note ML - [facility] LB TSH Reviewed date:01/21/2024 05:34:53 PM Interpretation: Performing Lab: Notes/Report: [facility] , Thyroid Stimulating Hormone 24.798 0.358-3.740 uIU/mL Performing Lab: see note ML - [facility] LB FREE T4 Reviewed date:01/21/2024 05:34:53 PM Interpretation: Performing Lab: Notes/Report: [facility] , Free T4 0.62 0.76-1.46 ng/dL Performing Lab: see note ML - [facility] LB PREG QUANT HCG Reviewed date:01/21/2024 05:34:53 PM Interpretation: Performing Lab: Notes/Report: [facility] , HCG Quantitative 8 5-50 0.2-1 WEEK 50-500 1-2 WEEKS 100-5,000 2-3 WEEKS 500-10,000 3-4 WEEKS 1,000-50,000 4-5 WEEKS 10,000-100,000 5-6 WEEKS 15,000-200,000 6-8 WEEKS 10,000-100,000 2-3 MONTHS Performing Lab: see note ML - [facility] LB DRUG SCREEN RAPID (URINE) Reviewed date:01/26/2024 02:16:48 PM Interpretation: Performing Lab: Notes/Report: [facility] , Cannabinoid Screen Urine NEGATIVE NEGATIVE Phencyclidine Screen Urine NEGATIVE NEGATIVE Cocaine Screen Urine NEGATIVE NEGATIVE Methamphetamines Screen Urine NEGATIVE NEGATIVE Opiate Screen Urine NEGATIVE NEGATIVE Amphetamine Screen Urine NEGATIVE NEGATIVE Benzodiazepines Screen Urine NEGATIVE NEGATIVE Tricyclic Antidepressant Urine NEGATIVE NEGATIVE Methadone Screen Urine NEGATIVE NEGATIVE Barbiturates Screen Urine NEGATIVE NEGATIVE Oxycodone Screen Urine NEGATIVE NEGATIVE Buprenorphine Screen Urine NEGATIVE NEGATIVE DRUG CLASS TEST SYSTEM CUT-OFF CONCENTRATIONS ARE FOLLOWS: AMP (Amphetamine): 500 ng/mL BAR (Barbiturates): 200 ng/mL BZO (Benzodiazepines): 150 ng/mL BUP (Buprenorphine): 10 ng/mL PAXTON (Cocaine): 150 ng/mL mAMP (Methamphetamine): 500 ng/mL MTD (Methadone): 200 ng/mL OPI (Opiates): 100 ng/mL OXY (Oxycodone): 100 ng/mL PCP (Phencyclidine): 25 ng/mL THC (Cannabinoids): 50 ng/mL TCA (Trycyclic Antidepressants): 300 ng/mL Performing Lab: see note ML - [facility] LB CBC AUTO DIFF Reviewed date:01/21/2024 05:34:53 PM Interpretation: Performing Lab: Notes/Report: [facility] , White Blood Count 3.7 4.0-11.0 10 3/uL Red Blood Count 3.87 4.20-5.40 10 6/uL Hemoglobin 11.7 12.0-16.0 g/dL Hematocrit 35.3 36.0-48.0 % Mean Corpuscular Volume 91.2 81.0-99.0 fL Mean Corpuscular Hemoglobin 30.2 26.7-34.0 pg Mean Corpuscular HGB Conc 33.1 29.9-35.2 g/dL Red Cell Distribution Width 12.2 11.0-15.0 % Platelet Count 279 150-450 10 3/uL Mean Platelet Volume 10.2 9.5-13.5 fL Neutrophils Percent Auto 47.3 43.0-75.0 % Lymphocytes Percent Auto 35.8 20.5-60.0 % Monocytes Percent Auto 11.8 1.7-12.0 % Eosinophils Percent Auto 4.3 0.9-7.0 % Basophils Percent Auto 0.8 0.2-2.0 % Immature Granulocytes Pct Auto 0.0 0.0-0.5 % Neutrophils Absolute Auto 1.8 1.4-6.5 10 3/uL Lymphocytes Absolute Auto 1.3 1.2-3.8 10 3/uL Monocytes Absolute Auto 0.4 0.3-0.8 10 3/uL Eosinophils Absolute Auto 0.2 0.0-0.7 10 3/uL Basophils Absolute Auto 0.0 0.0-0.1 10 3/uL Immature Granulocytes Abs Auto 0.00 0.00-0.03 10 3/uL Performing Lab: see note ML - [facility] LB UA (CLEAN or CATCH) SENIOR DATABASE PROGRAMMER or M ICRO IF IND. Reviewed date:09/27/2024 03:26:34 PM Interpretation: Performing Lab: Notes/Report: [facility] , Color Urine LT. YELLOW YELLOW Clarity Urine CLEAR CLEAR Specific [place] Urine 1.010 1.005-1.025 pH Urine 7.0 5.0-9.0 Protein Urine NEGATIVE NEG/TRACE mg/dL Glucose Urine UA NEGATIVE NEGATIVE mg/dL Bilirubin Urine NEGATIVE NEGATIVE Ketones Urine NEGATIVE NEGATIVE mg/dL Blood Urine NEGATIVE NEGATIVE Nitrite Urine NEGATIVE NEGATIVE Urobilinogen Urine 0.2 0.2-1.0 EU/dL Leukocyte Esterase Urine NEGATIVE NEGATIVE Urine Microscopic Indicated NO Performing Lab: see note ML - [facility] LB PROF 14(COMP METB) Reviewed date:09/27/2024 03:26:34 PM Interpretation: Performing Lab: Notes/Report: [facility] , Sodium 139 136-145 mmol/L Potassium 3.8 3.5-5.1 mmol/L Chloride 103 98-107 mmol/L Carbon Dioxide 23.6 21.0-32.0 mmol/L Anion Gap 16.2 Glucose 96 74-106 mg/dL Blood Urea Nitrogen 12.0 7.0-18.0 mg/dL Creatinine 0.46 0.55-1.02 mg/dL Estimated GFR ( Yue >60 >=60 mL/min/1.73m 2 Estimated GFR (Non- Suni >60 >=60 mL/min/1.73m 2 BUN Creatinine Ratio 26.1 Calcium 9.0 8.5-10.1 mg/dL Bilirubin Total 0.4 0.2-1.0 mg/dL Aspartate Amino Transferase 12 15-37 U/L Alanine Aminotransferase 13 14-59 U/L Alkaline Phosphatase 83 46-116 U/L Total Protein 6.9 6.4-8.2 g/dL Albumin Level 2.8 3.4-5.0 g/dL Globulin 4.1 Albumin Globulin Ratio 0.7 Performing Lab: see note ML - [facility] LB LIPASE Reviewed date:09/27/2024 03:26:34 PM Interpretation: Performing Lab: Notes/Report: [facility] , Lipase 20.0 16.0-77.0 U/L Performing Lab: see note ML - [facility] LB CBC AUTO DIFF Reviewed date:09/27/2024 03:26:34 PM Interpretation: Performing Lab: Notes/Report: [facility] , White Blood Count 12.8 4.0-11.0 10 3/uL Red Blood Count 3.41 4.20-5.40 10 6/uL Hemoglobin 10.0 12.0-16.0 g/dL Hematocrit 29.6 36.0-48.0 % Mean Corpuscular Volume 86.8 81.0-99.0 fL Mean Corpuscular Hemoglobin 29.3 26.7-34.0 pg Mean Corpuscular HGB Conc 33.8 29.9-35.2 g/dL Red Cell Distribution Width 13.6 11.0-15.0 % Platelet Count 264 150-450 10 3/uL Mean Platelet Volume 9.7 9.5-13.5 fL Neutrophils Percent Auto 78.4 43.0-75.0 % Lymphocytes Percent Auto 9.9 20.5-60.0 % Monocytes Percent Auto 9.1 1.7-12.0 % Eosinophils Percent Auto 0.5 0.9-7.0 % Basophils Percent Auto 0.2 0.2-2.0 % Immature Granulocytes Pct Auto 1.9 0.0-0.5 % Neutrophils Absolute Auto 10.1 1.4-6.5 10 3/uL Lymphocytes Absolute Auto 1.3 1.2-3.8 10 3/uL Monocytes Absolute Auto 1.2 0.3-0.8 10 3/uL Eosinophils Absolute Auto 0.1 0.0-0.7 10 3/uL Basophils Absolute Auto 0.0 0.0-0.1 10 3/uL Immature Granulocytes Abs Auto 0.25 0.00-0.03 10 3/uL Performing Lab: see note ML - [facility] LB AMYLASE Reviewed date:09/27/2024 03:26:34 PM Interpretation: Performing Lab: Notes/Report: [facility] , Amylase 51 25-115 U/L Performing Lab: see note ML - [facility] LB Reason For Referral No Information Medications Medication SIG (Take, Route, Frequency, Duration) Notes Start Date End Date Status Vitamin D 50 MCG (1999) 1 capsule Ora lly Once a day for 30 days 05/17/2024 Active Ibuprofen 800 MG 1 tablet with food o r milk as needed Orally every 6 hrs 10/02/2023 Active Synthroid 75 MCG 1 tablet in the morn ing on an empty stomach Orally Once a day for 30 days 01/22/2024 Active Immunizations Vaccine Route Administration Date Status Comme nts DTap, Unspecified Unknown 06/15/1999 Administered DTap, Unspecified Unknown 01/06/2001 Administered DTP - historic Unknown 1995 Administered DTP - historic Unknown 01/30/1996 Administered DTP - historic Unknown 04/02/1996 Administered DTP - historic Unknown 03/02/2015 Administered Hep A, Ped/Adol, 2 Dose Unknown 02/24/2013 Administered Hep A, Ped/Adol, 2 Dose Unknown 03/02/2015 Administered Hep B, Ped/Adol, 3 Dose Unknown 1995 Administered Hep B, Ped/Adol, 3 Dose Unknown 1995 Administered Hep B, Ped/Adol, 3 Dose Unknown 04/02/1996 Administered HIB, unspecified formulation Unknown 1995 Adminis tered HIB, unspecified formulation Unknown 01/30/1996 Adminis tered HIB, unspecified formulation Unknown 04/02/1996 Adminis tered HIB, unspecified formulation Unknown 06/15/1999 Adminis tered HPV (Gardasil) Unknown 02/24/2013 Administered HPV (Gardasil) Unknown 06/03/2013 Administered MMR Unknown 06/15/1999 Administered MMR Unknown 01/06/2001 Administered MMR Unknown 03/02/2015 Administered Polio Virus, IPV Unknown 01/06/2001 Administered Polio Virus, OPV - historic Unknown 1995 Administ ered Polio Virus, OPV - historic Unknown 01/30/1996 Administ ered Polio Virus, OPV - historic Unknown 04/02/1996 Administ ered Polio, unspecified Unknown 03/02/2015 Administered PPD Test ID Intradermal 06/17/2023 Administered PPD Test ID Intradermal 06/24/2023 Administered Tdap Unknown 02/24/2013 Administered Tdap Unknown 10/16/2013 Administered Varicella Unknown 06/15/1999 Administered Varicella Unknown 06/03/2013 Administered Varicella Unknown 03/02/2015 Administered Social History Tobacco Use: Social History Observation Description Date Details (start date - stop date) Never Smoker NA - NA Tobacco Use/Smoking Question Answer Notes Patient is a nonsmoker Alcohol Screen (Audit-C) Question Answer Notes Did you have a drink containing alcohol in the p ast year? No Points 0 Interpretation Negative AUDIT-C (Standard) Question Answer Notes Did you have a drink containing alcohol in the p ast year? No Points 0 Interpretation Negative Problems Problem Type SNOMED Code ICD Code Onset Dates Problem Status W/U Status Risk Notes Problem 90285386 Amenorrhea, unspecified (N91.2) Active confirmed Problem 69819119 Other specified conditions associated with female genital organs and menstrual cycle (N94.89) Active confirmed Problem Palpitations (79469544) Palpitations (R00.2) Active confirmed Problem Asthma (484331366) Asthma (J45.909) Active confirmed Problem Hypothyroid (84856367) Hypothyroid (E03.9) Active confirmed Problem Depression (776791224) Depression (F32.9) Active confirmed Problem Well adult (825937565) Well adult (Z00.00) Active confirmed Problem Iron deficiency anemia (13192972) Iron deficiency anemia (D50.9) Active confirmed Problem Autism (67435579) Autism (F84.0) Active confirm ed Problem Near syncope (654721035) Near syncope (R55) Active confirmed Problem Vaginal bleeding (168964055) Vaginal bleeding (N93.9) Active confirmed Problem Attention deficit hyperactivity disorder (948080547) ADHD (F90.9) Active confirmed Vital Signs Blood pressure diastolic 56 mm Hg 08/04/2024 Height 65 in 08/04/2024 Blood pressure systolic 108 mm Hg 08/04/2024 Weight 152.4 lbs 08/04/2024 BMI 25.36 kg/m2 08/04/2024 Procedures Procedure Date Ordered Date Performed Result Body Sit e CARDIO Echocardiogram 05/14/2024 N/A Holter Monitor - 3 days up to 14 days 05/14/2024 N/A Encounters Encounter Location Date Provider Diagnosis [facility] [address] [facility] [place] [address] 11/25/2023 Parish Santiago [facility] [address] [facility] [place] [address] 05/06/2024 Parish Santiago [facility] [address] [facility] [place] [address] 05/16/2024 Parish Santiago Other specified abno rmal findings of blood chemistry R79.89 [facility] [address] [facility] [place] [address] 05/17/2024 Parish Santiago [facility] [address] [facility] [place] [address] 06/07/2024 Parish Santiago [facility] [address] [facility] [address] 08/09/2024 Parish Santiago [facility] [address] [facility] [place] [address] 11/25/2023 Parish Santiago [facility] [address] [place] [facility] [place] [place] [address] 12/11/2023 Parish Santiago [facility] [address] [facility] [place] [address] 01/21/2024 Parish Santiago [facility] [address] [facility] [place] [address] 01/21/2024 Parish Santiago [facility] [address] [facility] [address] 01/26/2024 Parish Santiago Encounter for pregna ncy test, result positive Z32.01 [facility] [address] [facility] [place] [address] 01/26/2024 Parish Santiago [facility] [address] [place] [address] 01/21/2024 Parish Santiago Encounter for pregna ncy test, result positive Z32.01 and Vaginal bleeding N93.9 [facility] [address] [place] [address] 05/14/2024 Aprish Hoy Well adult Z00.00 ; Palpitations R00.2 and Near syncope R55 [facility] [address] [place] [address] 08/04/2024 Parish Hoy Well adult Z00.00 Assessments Encounter Date Diagnosis (ICD Code) Assessment Notes Treatment Notes Treatment Clinical Notes Section Notes 01/21/2024 Encounter for test, result positive (ICD-10 - Z32.01) 01/21/2024 Vaginal bleeding (ICD-10 - N93.9) 05/14/2024 Well adult (ICD-10 - Z00.00) labs 05/14/2024 Palpitations (ICD-10 - R00.2) needs echo and holter 08/04/2024 Well adult (ICD-10 - Z00.00) 01/26/2024 Encounter for test, result positive (ICD-10 - Z32.01) 05/16/2024 Other specified abnormal findings of blood chemistry (ICD-10 - R79.89) 05/14/2024 Near syncope (ICD-10 - R55) Plan Of Treatment Pending Test Test Name Order Date HEMOGLOBIN A1C (GLYCO) 05/14/2024 IRON, TOTAL 05/14/2024 LIPID PANEL (CHOL/TRIG/HDL/LDL) 05/14/19 25 CBC WITH DIFF 05/14/2024 VITAMIN D, 25 LEVEL (TOTAL) 05/14/2024 CARDIO Echocardiogram 05/14/2024 Insulin Level 05/14/2024 High Sensitivity Troponin 05/14/2024 MMR IMMUNITY 10/06/2023 PROF CHEM 8 (BAS METB) 01/21/2024 QUANTIFERON TB GOLD PLUS 08/04/2024 QUANTIFERON TB GOLD PLUS 10/06/2023 THYROID PROFILE WITH TSH 01/21/2024 VARICELLA IGG AB 10/06/2023 THYROID PANEL (T4/TSH/FREE T3) THYROID PANEL (T4/TSH/FREE T3) 01/10/202 5 Holter Monitor - 3 days up to 14 days Hepatitis B Surf Ab Quant 10/06/2023 CMP (COMP MET GARCIA) w/eGFR CKD-EPI 2024 Insurance Providers Payer Name Payer Address Payer Phone Subscriber Number Group Number Insured Name Patient Relationship to Insured Coverage Start Date Coverage End Date [employer] [place] [employer] [address] [place] [address] [id number] Jojo Hodge Self - patient is the insured 3 Medical (General) History Medical History History ICD Code ADHD F90.9 Iron deficiency anemia D50.9 Asthma J45.909 Depression F32.9 amenorrhea Surgical History Surgery Date(Month/Year) Tonsillectomy 11/2022
--- OUTSIDE RECORDS SUMMARY | 2024-11-04 15:20 | XMS_ITS | Clinical Summary ---
Author Organization [facility] Address [address] [place] [address] Care Team Providers Care Lighting Director Name Role Phone Erika Keith Unavailable Allergies Active Allergy Reactions Criticality Noted Date Comments Amoxicillin Unknown 02/19/2023 Bee Pollen Unknown 10/18/2022 Bee Venom Hives High 08/08/2022 Iodine Hives High 08/08/2022 Latex Unknown 10/18/2022 Nickel Hives High 10/28/2022 Penicillin G Unknown 10/18/2022 Shellfish-Derived Products Unknown 3 Medications Vit-Fe Fumarate-FA ( Vitamins) 28-0.8 MG tabletIndication s:16 weeks gestation of ([facility]) Take 1 tablet by mouth Daily 30 tablet 3 5 06/10/19 26 Active ondansetron (Zofran) 4 MG tabletIndication s:Nausea Take 1 tablet (4 mg) by mouth every 6 (six) hours if needed for nausea or vomiting for up to 30 doses Take 1 tablet by mouth every 6 hours as needed for nausea. 30 tablet 3 5 Active levothyroxine (Synthroid) 100 MCG tabletIndication s:Thyroid disease Take 1 tablet (100 mcg) by mouth in the morning. Take before meals. 90 tablet 5 Active metoclopramide (Reglan) 10 MG tabletIndication s:Amenorrhea,Mis sed menses, , unspecified gestational age ([facility]),Encoun ter for supervision of normal first in first trimester ([facility]) TAKE 1 TABLET BY MOUTH 30 MINUTES PRIOR TO MEALS IN THE MORNING, AT NOON, AND IN THE EVENING NEEDED FOR NAUSEA 90 tablet 5 Active valACYclovir (Valtrex) 500 MG tabletIndication s:Herpes simplex Take 1 tablet (500 mg) by mouth Daily 30 tablet 2 5 01/05/20 25 Active sertraline (Zoloft) 50 MG tabletIndication s:Mood changes Take 1 tablet (50 mg) by mouth Daily 30 tablet 5 5 04/04/20 25 Active Active Problems Problem Noted Date Diagnosed Date Acute asthma 12/03/2022 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 12/03/2022 Schizoaffective disorder 12/03/2022 Neck swelling 08/19/2022 Estimated Date of Delivery Comme nts Yes 11/25/2024 Based on Ultraso und Encounters Date Type Department Care Team Description 11/01/2024 2:00 PM EDT Routine [facility] [address] [place] [address] Sarbjit Robledo DO Third trimester ([facility]); 36 weeks gestation of ([facility]); Herpes simplex; Thyroid disease 11/01/2024 Bamboo flowsheet [facility] [address] [place] [address] Sarbjit Robledo DO 11/01/2024 Travel 10/25/2024 2:20 PM EDT Routine [facility] [address] [place] [address] Erika Keith PA Third trimester ([facility]); 35 weeks gestation of ([facility]); Anemia, unspecified type 10/25/2024 Bamboo flowsheet [facility] [address] [place] [address] Erika Keith PA 10/06/2024 2:00 PM EDT Routine [facility] [address] [place] [address] Sarbjit Robledo DO Third trimester ([facility]); 32 weeks gestation of ([facility]); Herpes simplex; Mood changes; Thyroid disease 10/06/2024 Bamboo flowsheet [facility] [address] [place] [address] Sarbjit Robledo, DO 10/06/2024 Travel 09/27/2024 Clinisync Result Encounter [facility] External Department Unsolicited Sarbjit Robledo, DO 2024 2:40 PM EDT Routine [facility] [address] [place] [address] Erika Keith PA 30 weeks gestation of ([facility]); Third trimester ([facility]); Trichomonas infection; Other specified hypothyroidism 2024 2:00 PM EDT Ancillary Procedure [facility] [address] [place] [address] size inconsistent with dates ([facility]); H/O thyroid disease 09/09/2024 Telephone [facility] [address] [place] [address] Sarbjit Robledo, DO 09/08/2024 1:50 PM EDT Routine [facility] [address] [place] [address] Sarbjit Robledo, DO Second trimester ([facility]); 28 weeks gestation of ([facility]); Diabetes mellitus screening; size inconsistent with dates ([facility]) 09/08/2024 Clinisync Result Encounter [facility] External Department Unsolicited Sarbjit Robledo, DO 09/08/2024 Bamboo flowsheet [facility] [address] [place] [address] Sarbjit Robledo, DO 09/08/2024 Travel 09/03/2024 Tele[address] [facility] [address] [place] [address] Sarbjit Robledo, DO 08/10/2024 Orders Only [facility] [address] [place] [phone] ImeldaRitu murrayKATE 08/05/2024 Refill [facility] [address] [place] [address] Sarbjit Robledo, Amenorrhea; Missed menses; , unspecified gestational age ([facility]); Encounter for supervision of normal first in first trimester ([facility]) from Last 3 Months Family History Medical History Relation Name Comments Multiple sclerosis Maternal Grandmother COPD Mother Heart disease Mother Mental illness Mother Multiple sclerosis Mother Relation Name Status Comments Daughter Alive Maternal Grandmother Mother Son Alive Social History Tobacco Use Types Packs/Day Years Used Date Smoking Tobacco: Never Smokeless Tobacco: Never Tobacco Cessation:Counseling Given: Not Answered Alcohol Use Standard Drinks/Week Comments Never 0 [...] Orientation Bisexual 10/20/2022 3: 45 PM EDT Last Filed Vital Signs Vital Sign Reading Time Taken Comments Blood Pressure 102/62 11/01/2024 2:21 PM EDT Pulse - - Temperature - - Respiratory Rate - - Oxygen Saturation - - Inhaled Oxygen Concentration - - Weight 74.2 kg (163 lb 8 oz) 11/01/2024 2:21 PM EDT Height 160 cm (5' 3 ) 06/04/2022 12:00 PM EST Body Mass Index 28.96 06/04/2022 12:00 PM EST Plan of Treatment Health Maintenance Due Date Last Done Comments Influenza Vaccine (#1) 2025 03/02/2015 Goals Goal Patient Goal Type Associated Problems Recent Progress Patient-Stated? Author Reminders Care Plan OB Reminders No Open Scheduling, Background Procedures Procedure Name Priority Date/Time Associated Diagnosis Comments POCT URINALYSIS DIPSTICK Routine 11/01/2024 2:25 PM EDT Third trimester ([facility]) POCT URINALYSIS DIPSTICK Routine 10/25/2024 2:57 PM EDT Third trimester ([facility]) [facility] LIPASE Routine 09/27/2024 10:35 AM EDT ALL AMYLASE Routine 09/27/2024 10:35 AM EDT [facility] CMP (CMP) (FOR REMOTE [facility] USE) Routine 09/27/2024 10:35 AM EDT ALL CBC WITH AUTO DIFF Routine 10:35 AM EDT TBH UA (CLEAN/CATCH) PACKAGE YARNS DRYING MACHINE OPERATOR/MICRO IF IND. Routine 09/27/2024 9:15 AM EDT RECURRENT VAGINITIS (HTRX) Routine 2024 4:06 PM EDT POCT URINALYSIS DIPSTICK Routine 2024 3:32 PM EDT 30 weeks gestation of ([facility]) US OB FOLLOW UP TRANSABDOMINAL APPROACH Routine 2024 3:01 PM EDT size inconsistent with dates ([facility]) H/O thyroid disease GLUCOSE 1 HOUR Routine 09/08/2024 4:00 PM EDT ALL CBC WITH AUTO DIFF Routine 4:00 PM EDT from Last 3 Months Results * (ABNORMAL) POCT urinalysis dipstick manually resulted (11/01/2024 2:25 PM EDT) Only the most recent of3 resultswithin the time period is included. Color, UA Yellow Clarity, UA Clear Glucose, [...] Positive Urine 11/01/2024 2:25 PM EDT Sarbjit Venkat DO POINT OF CARE TEST ENTER/EDIT OR DERABLES Final Result * [facility] LIPASE (09/27/2024 10:35 AM EDT) LIPASE 20.0 16.0 - 77.0 U/L TB 09/27/2024 10:3 5 AM EDT 09/27/2024 10:42 AM EDT Narrative [facility] - 09/27/2024 11:06 AM EDT Sarbjit Venkat DO CLIN[facility] Final Result [facility] TB * (ABNORMAL) [facility] CMP (CMP) (FOR REMOTE [facility] USE) (09/27/2024 10:35 AM EDT) SODIUM 139 136 - 145 mmol/L TBH POTASSIUM 3.8 3.5 - 5.1 mmol/L TBH CHLORIDE 103 98 - 107 mmol/L TBH CARBON DIOXIDE 23.6 21.0 - 32.0 mmol/L TBH ANION GAP 16.2 TBH GLUCOSE 96 74 - 106 mg/dL TBH BLOOD UREA NITROGEN 12.0 7.0 - 18.0 mg/dL TBH CREATININE 0.46(L) 0.55 - 1.02 mg/dL TBH TBH EGFR-AF CYPRIOT >60 >=60 mL/min/1. 73m 2 TBH TBH EGFR-NON AF CYPRIOT >60 >=60 mL/min/1. 73m 2 TBH BUN CREATININE RATIO 26.1 TBH CALCIUM 9.0 8.5 - 10.1 mg/dL TBH BILIRUBIN TOTAL 0.4 0.2 - 1.0 mg/dL TBH ASPARTATE AMINO TRANSFERASE 12(L) 15 - 37 U/L TBH ALANINE AMINOTRANSFERASE 13(L) 14 - 59 U/L TBH ALKALINE PHOSPHATASE 83 46 - 116 U/L TBH TOTAL PROTEIN 6.9 6.4 - 8.2 g/dL TBH ALBUMIN LEVEL 2.8(L) 3.4 - 5.0 g/dL TBH GLOBULIN 4.1 g/dL TBH ALBUMIN GLOBULIN RATIO 0.7 TBH 09/27/2024 10:3 5 AM EDT 09/27/2024 10:42 AM EDT Narrative [facility] - 09/27/2024 11:05 AM EDT us Sarbjit Venkat DO CLINIS[facility]NC Final Result [facility] * (ABNORMAL) ALL CBC WITH AUTO DIFF (09/27/2024 10:35 AM EDT) Only the most recent of2 resultswithin the time period is included. TBH WBC 12.8(H) 4.0 - 11.0 10 3/uL TBH TBH RBC 3.41(L) 4.20 - 5.40 10 6/uL TBH TBH HGB 10.0(L) 12.0 - 16.0 g/dL TBH TBH HCT 29.6(L) 36.0 - 48.0 % TBH TBH MCV 86.8 81.0 - 99.0 fL TBH TBH MCH 29.3 26.7 - 34.0 pg TBH TBH MCHC 33.8 29.9 - 35.2 g/dL TBH TBH RDW 13.6 11.0 - 15.0 % TBH TBH PLT 264 150 - 450 10 3/uL TBH TBH MPV 9.7 9.5 - 13.5 fL TBH NEUTROPHILS PERCENT AUTO 78.4(H) 43.0 - 75.0 % TBH LYMPHOCYTES PERCENT AUTO 9.9(L) 20.5 - 60.0 % TBH MONOCYTES PERCENT AUTO 9.1 1.7 - 12.0 % TBH TBH EO % 0.5(L) 0.9 - 7.0 % TBH BASOPHILS PERCENT AUTO 0.2 0.2 - 2.0 % TBH IMMATURE GRANULOCYTES PCT AUTO 1.9(H) 0.0 - 0.5 % TBH NEUTROPHILS ABSOLUTE AUTO 10.1(H) 1.4 - 6.5 10 3/uL TBH LYMPHOCYTES ABSOLUTE AUTO 1.3 1.2 - 3.8 10 3/uL TBH MONOCYTES ABSOLUTE AUTO 1.2(H) 0.3 - 0.8 10 3/uL TBH TBH EO # 0.1 0.0 - 0.7 10 3/uL TBH BASOPHILS ABSOLUTE AUTO 0.0 0.0 - 0.1 10 3/uL TBH IMMATURE GRANULOCYTES ABS AUTO 0.25(H) 0.00 - 0.03 10 3/uL TBH 09/27/2024 10:3 5 AM EDT 09/27/2024 10:42 AM EDT Narrative CLINISYNC - 09/27/2024 10:46 AM EDT Sarbjit Venkat DO CLINISYNC Final Result Performing Organization Address [facility]/ZIP Co de Phone Number [facility] * ALL AMYLASE (09/27/2024 10:35 AM EDT) Pathologist [facility] AMYLASE 51 25 - 115 U/L TBH 09/27/2024 10:3 5 AM EDT 09/27/2024 10:42 AM EDT Narrative [facility]IN[facility] - 09/27/2024 11:06 AM EDT [facility] Venkat DO CLINISYNC Final Result Performing Organization Address [facility]/ZIP Co de Phone Number [facility] * [facility] UA (CLEAN/CATCH) PACKAGE YARNS DRYING MACHINE OPERATOR/MICRO IF IND. (09/27/2024 9:15 AM EDT) COLOR URINE LT. YELLOW YELLOW TBH CLARITY URINE CLEAR CLEAR TBH SPECIFIC GRAVITY URINE 1.010 1.005 - 1.025 TBH PH URINE 7.0 5.0 - 9.0 TBH PROTEIN URINE NEGATIVE NEG/TRACE mg/dL TBH GLUCOSE URINE UA NEGATIVE NEGATIVE mg/dL TBH BILIRUBIN URINE NEGATIVE NEGATIVE TBH KETONES URINE NEGATIVE NEGATIVE mg/dL TBH BLOOD URINE NEGATIVE NEGATIVE TBH NITRITE URINE NEGATIVE NEGATIVE TBH UROBILINOGEN URINE 0.2 0.2 - 1.0 EU/dL TBH LEUKOCYTE ESTERASE URINE NEGATIVE NEGATIVE TBH URINE MICROSCOPIC INDICATED NO TBH 09/27/2024 9:15 AM EDT 09/27/2024 9:48 AM EDT Narrative CLIN[facility] - 09/27/2024 10:05 AM EDT Sarbjit Venkat DO CLINISYNC Final Result [facility] * RECURRENT VAGINITIS (HTRX) (2024 4:06 PM EDT) Pathologist [facility] ATOPOBIUM VAGINAE 0.000 19.961 - 24.689 ppm 09/22/2024 6:16 AM EDT [facility] ATOPOBIUM VAGINAE Not Detected 19.961 - 24.689 ppm 09/22/2024 6:16 AM EDT [facility] BVAB 2,3 (BACTERIAL VAGINOSIS ASSOCIATED BACTERIA 2, 3); MOBILUNCUS SPP 0.000 19.961 - 24.689 ppm 09/22/2024 6:16 AM EDT [facility] BVAB 2,3 (BACTERIAL VAGINOSIS ASSOCIATED BACTERIA 2, 3); MOBILUNCUS SPP Not Detected 19.961 - 24.689 ppm 09/22/2024 6:16 AM EDT [facility] LISA ALBICANS, PARAPSILOSIS, TROPICALIS 0.000 19.961 - 30.770 ppm 09/22/2024 6:16 AM EDT [facility] LISA ALBICANS, PARAPSILOSIS, TROPICALIS Not Detected 19.961 - 30.770 ppm 09/22/2024 6:16 AM EDT [facility] LISA GLABRATA 0.000 23.000 - 32.138 ppm 09/22/2024 6:16 AM EDT [facility] LISA GLABRATA Not Detected 23.000 - 32.138 ppm 09/22/2024 6:16 AM EDT [facility] LISA KRUSEI 0.000 23.000 - 32.271 ppm 09/22/2024 6:16 AM EDT [facility] LISA KRUSEI Not Detected 23.000 - 32.271 ppm 09/22/2024 6:16 AM EDT [facility] CHLAMYDIA TRACHOMATIS 0.000 23.000 - 31.467 ppm 09/22/2024 6:16 AM EDT [facility] CHLAMYDIA TRACHOMATIS Not Detected 23.000 - 31.467 ppm 09/22/2024 6:16 AM EDT [facility] GARDNERELLA VAGINALIS 0.000 19.961 - 24.689 ppm 09/22/2024 6:16 AM EDT [facility] GARDNERELLA VAGINALIS Not Detected 19.961 - 24.689 ppm 09/22/2024 6:16 AM EDT [facility] MEGASPHAERA (TYPES 1, 2) 0.000 19.961 - 24.689 ppm 09/22/2024 6:16 AM EDT [facility] MEGASPHAERA (TYPES 1, 2) Not Detected 19.961 - 24.689 ppm 09/22/2024 6:16 AM EDT [facility] NEISSERIA GONORRHOEAE 0.000 23.000 - 32.117 ppm 09/22/2024 6:16 AM EDT [facility] NEISSERIA GONORRHOEAE Not Detected 23.000 - 32.117 ppm 09/22/2024 6:16 AM EDT [facility] TRICHOMONAS VAGINALIS 0.000 23.000 - 32.119 ppm 09/22/2024 6:16 AM EDT [facility] TRICHOMONAS VAGINALIS Not Detected 23.000 - 32.119 ppm 09/22/2024 6:16 AM EDT [facility] MYCOPLASMA GENITALIUM 0.000 19.961 - 24.689 ppm 09/22/2024 6:16 AM EDT [facility] MYCOPLASMA GENITALIUM Not Detected 19.961 - 24.689 ppm 09/22/2024 6:16 AM EDT [facility] Tissue 2024 4:06 PM EDT 09/22/2024 1:39 AM EDT us Sarbjit Robledo DO LAB BLOOD ORDERABLES Final Resul t [facility] StageALLEN [facility] HospitalWanderful [facility]Mc[facility] [place] [id number] * US OB follow up transabdominal approach (2024 3:01 PM EDT) Anatomical Region Laterality Modality Body Ultrasound 2024 11:0 1 PM EDT Narrative 2024 11:01 PM EDT EXAM: US OB FOLLOW UP TRANSABDOMINAL APPROACH [...] II, MD, PHD at 21-Sep-2024 11:00:15 PM [facility] Procedure Note Farheen Vela MD - 2024 EXAM: US OB FOLLOW UP TRANSABDOMINAL APPROACH HISTORY: No indication given. COMPARISON: Ob ultrasound 07/07/2024. TECHNIQUE: Two-dimensional transabdominal grayscale ultrasound imaging ofthe pelvis was performed. FINDINGS: Gestation: Single Presentation: Cephalic Cardiac Activity: 136 beats per minute Placental Location: Anterior with no sonographic abnormalitiesidentified. Amniotic Fluid Index: 17.7 cm MEASUREMENTS: BPD: 7.6 cm EGA: 30 weeks 2 days HC: 28.3 cm EGA: 31 weeks 0 days AC: 28.3 cm EGA: 32 weeks 2 days FL: 6.0 cm EGA: 31 weeks 2 days HC/AC Ratio: 1.00 The gestational age by today's ultrasound is 31 weeks 2 days (+/- 15 daysgestation). Estimated Weight: 1822 grams, +/- 273 grams ( 4 lb 0 oz). Weight Percentile for gestational age: 72 % IMPRESSION: 1. Single, live intrauterine gestation 30 weeks, 5 days by LMP. Today'sultrasound measurements correlate with a gestational age of 31 weeks 2days. Estimated weight is 1822 grams, +/- 273 grams ( 4 lb 0 oz)which correlates to 72 %. ADEN is 11/21/2024. Interpreted by: Electronically signed by FARHEEN VELA II, MD, PHD [id number] 11:00:15 PM [facility] us Sarbjit Venkat DO IMG OB US PROCEDURES Final Resul t * (ABNORMAL) GLUCOSE 1 HOUR (09/08/2024 4:00 PM EDT) GLUCOSE 1 HOUR 145(H) <130 mg/dL TBH 09/08/2024 4:00 PM EDT 09/08/2024 4:01 PM EDT Narrative [facility] - 09/08/2024 4:11 PM EDT us Sarbjit Venkat DO LAB BLOOD ORDERABLES Final Resul t [facility] from Last 3 Months Additional Health Concerns Active Problems Noted Date Diagnosed Date OB Reminders 06/10/2024 Insurance [employer] Care Teams Lighting Director Relationship Specialty Start Date End Date Erika Keith PA [address] [place] [address] [place] [address] PCP - [facility] 05/05/24
--- OUTSIDE RECORDS SUMMARY | 2024-11-04 15:20 | XMS_ITS | Encounter Summary ---
Author Organization [facility] Address [address] [place] [address] Care Team Providers Care Actuarial Technician Name Role Phone Erika Keith Unavailable Encounter Details Date Type Department Care Team (Late st Contact Info) Description 07/08/2023 Clinisync Result Encounter [facility] External Department Unsolicited Sarbjit Robledo, DO [address] [facility] [place], [place] [id number] Social History Tobacco Use Types Packs/Day Years [...] Priority Date/Time Associated Diagnosis Comments US OB BPP W NON-STRESS 07/08/2023 10:56 AM EST documented in this encounter Results * US OB BPP W NON-STRESS (07/08/2023 10:56 AM EST) Anatomical Region Laterality Modality Other 07/08/2023 10:5 6 AM EST Narrative 07/08/2023 10:59 [place] [address] Ultrasound Report Signed Patient: JOJO LOPEZ MR#: [id number] : 1995 Acct:[id number] Age/Sex: 27 / F ADM Date: 07/08/23 Loc: [facility] Attending Dr: Sarbjit Robledo D.O. Ordering Physician: Sarbjit Robledo D.O. Date of Service: 07/08/23 Procedure(s): US OB BPP w non-stress Accession Number(s): [id number] cc: Sarbjit Rboledo D.O.; Jesu Santiago M.D. [facility] [place] [address] Patient Name: JOJO LOPEZ MRN: [id number] date: 1995 Sex: F Assigned Patient Location: [facility] Current Patient Location: [facility] Accession/Order Number: [id number] Exam Date: 07/08/2023 10:07 Report Date: 07/08/2023 10:56 At the request of: SARBJIT ROBLEDO Procedure: US OB BPP w non-stress EXAMINATION: US OB BPP w non-stress HISTORY: LGA COMPARISON: No relevant comparison available. TECHNIQUE: Ultrasound biophysical profile was performed in the radiology department. non-reactive stress testing was performed by nursing staff in the birthing center. FINDINGS: BREATHING MOVEMENTS: 2 GROSS BODY MOVEMENTS: 2 TONE: 2 QUALITATIVE AMNIOTIC FLUID VOLUME: 2 PRESENTATION: TRANSVERSE HEART RATE: 147.0 bpm H.B./min AMNIOTIC FLUID VOLUME: 24.7 cm cm GESTATIONAL AGE: 36 weeks 1 days Polyhydramnios CONCLUSION: Total biophysical profile score: 8/8 Electronically authenticated by: HAMMAD FRAZIER Date: 07/08/2023 10:56 Dictated By: Hammad Frazier M.D. Signed By: 07/08/23 1059 DD/ 1056 TD/TT: Steel Die Printer: Procedure Note Radiology, Radiologist, - 07/08/2023 [facility] [place] [id number] Ultrasound Report Signed Patient: JOJO LOPEZ RMR#: [id number] : 1995Acct:[id number] Age/Sex: 27 / FADM Date: 07/08/23 Loc: [facility] Attending Dr: Sarbjit Robledo D.O. Ordering Physician: Sarbjit Robledo D.O. Date of Service: 07/08/23 Procedure(s): US OB BPP w non-stress Accession Number(s): [id number] cc: Sarbjit Robledo D.O.; Jesu Santiago M.D. [place] [address] Patient Name: JOJO LOPEZ MRN: [id number] date: 1995 Sex: F Assigned Patient Location: [facility] Current Patient Location: [facility] Accession/Order Number: [id number] Exam Date: 07/08/2023 10:07 Report Date: 07/08/2023 10:56 At the request of: SARBJIT ROBLEDO Procedure: US OB BPP w non-stress EXAMINATION: US OB BPP w non-stress HISTORY: LGA COMPARISON: No relevant comparison available. TECHNIQUE: Ultrasound biophysical profile was performed in the radiology department. non-reactive stress testing was performed by nursingstaff in the birthing center. FINDINGS: BREATHING MOVEMENTS: 2 GROSS BODY MOVEMENTS: 2 TONE: 2 QUALITATIVE AMNIOTIC FLUID VOLUME: 2 PRESENTATION: TRANSVERSE HEART RATE: 147.0 bpm H.B./min AMNIOTIC FLUID VOLUME: 24.7 cm cm GESTATIONAL AGE: 36 weeks 1 days Polyhydramnios CONCLUSION: Total biophysical profile score: 8/8 Electronically authenticated by: HAMMAD FRAZIER Date: 07/08/2023 10:56 Dictated By: Hammad Frazier M.D. Signed By:07/08/23 1059 DD/ 1056 TD/TT: Steel Die Printer: Sarbjit Robledo DO [facility] Final Result documented in this encounter Visit Diagnoses Not on filedocumented in this encounter Care Teams Actuarial Technician Relationship Specialty Start Date End Date Erika Keith PA [address] [place] [address] [place] [address] [facility] 05/05/24 documented as of this encounter
--- OUTSIDE RECORDS SUMMARY | 2024-11-04 15:20 | XMS_ITS | Encounter Summary ---
Author Organization [facility] Address [address] [place] [address] Care Team Providers Care Rest Room Matron Name Role Phone Erika Keith Unavailable Encounter Details Date Type Department Care Team (Late st Contact Info) Description 07/01/2023 Clinisync Result Encounter [facility] External Department Unsolicited Sarbjit Robledo, DO [address] [facility] Taina Baker [place], [place] [id number] Social History Tobacco Use Types Packs/Day Years [...] Diagnosis Comments US OB BPP W NON-STRESS 07/01/2023 12:10 PM EST documented in this encounter Results * US OB BPP W NON-STRESS (07/01/2023 12:10 PM EST) Anatomical Region Laterality Modality Other 07/01/2023 12:1 0 PM EST Narrative 07/01/2023 12:13 [place] [address] Ultrasound Report Signed Patient: JOJO LOPEZ MR#: [id number] : 1995 Acct:[id number] Age/Sex: 27 / F ADM Date: 07/01/23 Loc: [facility] 250-[address]: Sarbjit Robledo D.O. Ordering Physician: Sarbjit Robledo D.O. Date of Service: 07/01/23 Procedure(s): US OB BPP w non-stress Accession Number(s): [id number] cc: Sarbjit Robledo D.O.; Jesu Santiago M.D. The [place] [address] Patient Name: JOJO LOPEZ MRN: [id number] date: 1995 Sex: F Assigned Patient Location: [facility] Current Patient Location: [facility] Accession/Order Number: [id number] Exam Date: 07/01/2023 11:46 Report Date: 07/01/2023 12:10 At the request of: SARBJIT ROBLEDO Procedure: US OB BPP w non-stress EXAMINATION: US OB BPP w non-stress HISTORY: EXCESSIVE GROWTH COMPARISON: No relevant comparison available. TECHNIQUE: Ultrasound biophysical profile was performed in the radiology department. FINDINGS: BREATHING MOVEMENTS: 2.0 GROSS BODY MOVEMENTS: 2.0 TONE: 2.0 QUALITATIVE AMNIOTIC FLUID VOLUME: 2.0 PRESENTATION: TRANSVERSE HEART RATE: 136.4 bpm H.B./min AMNIOTIC FLUID VOLUME: 30.7 cm cm GESTATIONAL AGE: 35 weeks 1 days CONCLUSION: Total biophysical profile score: 8.0 Polyhydramnios Electronically authenticated by: HAMMAD FRAZIER Date: 07/01/2023 12:10 Dictated By: Hammad Frazier M.D. Signed By: 07/01/23 1213 DD/ 1210 TD/TT: Director Of Marketing Analytics: Procedure Note Radiology, Radiologist, - 07/09/2023 [place] [address] Ultrasound Report Signed Patient: JOJO LOPEZ RMR#: [id number] : 1995Acct:[id number] Age/Sex: 27 FADM Date: 07/01/23 Loc: [facility] 250-[address]: Sarbjit Robledo D.O. Ordering Physician: Sarbjit Robledo D.O. Date of Service: 07/01/23 Procedure(s): US OB BPP w non-stress Accession Number(s): [id number] cc: Sarbjit Robledo D.O.; Jesu Santiago M.D. [address] [address] Patient Name: JOJO LOPEZ MRN: [facility]:[id number] date: 1995 Sex: F Assigned Patient Location: [facility] Current Patient Location: [facility] Accession/Order Number: [id number] Exam Date: 07/01/2023 11:46 Report Date: 07/01/2023 12:10 At the request of: SARBJIT ROBLEDO Procedure: US OB BPP w non-stress EXAMINATION: US OB BPP w non-stress HISTORY: EXCESSIVE GROWTH COMPARISON: No relevant comparison available. TECHNIQUE: Ultrasound biophysical profile was performed in the radiology department. FINDINGS: BREATHING MOVEMENTS: 2.0 GROSS BODY MOVEMENTS: 2.0 TONE: 2.0 QUALITATIVE AMNIOTIC FLUID VOLUME: 2.0 PRESENTATION: TRANSVERSE HEART RATE: 136.4 bpm H.B./min AMNIOTIC FLUID VOLUME: 30.7 cm cm GESTATIONAL AGE: 35 weeks 1 days CONCLUSION: Total biophysical profile score: 8.0 Polyhydramnios Electronically authenticated by: HAMMAD FRAZIER Date: 07/01/2023 12:10 Dictated By: Hammad Frazier M.D. Signed By:07/01/23 1213 DD/ 1210 TD/TT: Director Of Marketing Analytics: Sarbjit Robledo DO [facility] Final Result documented in this encounter Visit Diagnoses Not on filedocumented in this encounter Care Teams Rest Room Matron Relationship Specialty Start Date End Date Erika Keith PA [address] [place] [address] Dr Arell[place] [phone] (work) PCP - [facility] 05/05/24 documented as of this encounter
--- OUTSIDE RECORDS SUMMARY | 2024-11-04 15:20 | XMS_ITS | Encounter Summary ---
Author Organization [facility] Address [address] [place] [address] Care Team Providers Care Financial Aid Officer Name Role Phone Erika Keith Unavailable Encounter Details Date Type Department Care Team (Late st Contact Info) Description 06/24/2023 Clinisync Result Encounter [facility] External Department Unsolicited Sarbjit Robledo, DO [address] [facility] [address] Taina Baker [place], [place] [phone] Social History Tobacco Use Types Packs/Day Years [...] Diagnosis Comments US OB BPP W NON-STRESS 06/24/2023 12:07 PM EST documented in this encounter Results * US OB BPP W NON-STRESS (06/24/2023 12:07 PM EST) Anatomical Region Laterality Modality Other 06/24/2023 12:0 7 PM EST Narrative 06/24/2023 12:09 PM EST The [address] [address] Ultrasound Report Signed Patient: JOJO LOPEZ MR#: [id number] : 1995 Acct:[id number] Age/Sex: 27 / F ADM Date: 06/24/23 Loc: US Attending Dr: Sarbjit Robledo D.O. Ordering Physician: Sarbjit Robledo D.O. Date of Service: 06/24/23 Procedure(s): US OB BPP w non-stress Accession Number(s): [id number] cc: Sarbjit Robledo D.O.; Jesu Santiago M.D. The [address] [address] Patient Name: JOJO LOPEZ MRN: [id number] date: 1995 Sex: F Assigned Patient Location: [facility] Current Patient Location: US Accession/Order Number: [id number] Exam Date: 06/24/2023 11:20 Report Date: 06/24/2023 12:07 At the request of: SARBJIT ROBLEDO Procedure: US OB BPP w non-stress EXAMINATION: US OB BPP w non-stress HISTORY: EXCESSIVE GROWTH O36.63X1 COMPARISON: Ultrasound OB biophysical 06/17/2023 TECHNIQUE: Ultrasound biophysical profile was performed in the radiology department. BREATHING MOVEMENTS: 2.0 GROSS BODY MOVEMENTS: 2.0 TONE: 2.0 QUALITATIVE AMNIOTIC FLUID VOLUME: 2.0 PRESENTATION: TRANSVERSE HEART RATE: 135.0 bpm bpm. AMNIOTIC FLUID VOLUME: 27.1 cm (95th percentile is 24.8 cm) GESTATIONAL AGE: 34 weeks 1 days CONCLUSION: 1. Total biophysical profile score 8.0. 2. Polyhydramnios. Electronically authenticated by: ERNST SALES Date: 06/24/2023 12:07 Dictated By: Ernst Sales M.D. Signed By: 06/24/23 1209 DD/ 120 TD/TT: Forging Press Setter Up: Procedure Note Radiology, Radiologist, - 07/09/2023 The [place] [id number] Ultrasound Report Signed Patient: JOJO LOPEZ RMR#: [id number] : 1995Acct:[id number] Age/Sex: 27 / FADM Date: 06/24/23 Loc: US Attending Dr: Sarbjit Robledo D.O. Ordering Physician: Sarbjit Robledo D.O. Date of Service: 06/24/23 Procedure(s): US OB BPP w non-stress Accession Number(s): [id number] cc: Sarbjit Robledo D.O.; Jesu Santiago M.D. [place] [address] Patient Name: JOJO LOPEZ MRN: [id number] date: 1995 Sex: F Assigned Patient Location: [facility] Current Patient Location: Accession/Order Number: [id number] Exam Date: 06/24/2023 11:20 Report Date: 06/24/2023 12:07 At the request of: SARBJIT ROBLEDO Procedure: US OB BPP w non-stress EXAMINATION: US OB BPP w non-stress HISTORY: EXCESSIVE GROWTH O36.63X1 COMPARISON: Ultrasound OB biophysical 06/17/2023 TECHNIQUE: Ultrasound biophysical profile was performed in the radiology department. BREATHING MOVEMENTS: 2.0 GROSS BODY MOVEMENTS: 2.0 TONE: 2.0 QUALITATIVE AMNIOTIC FLUID VOLUME: 2.0 PRESENTATION: TRANSVERSE HEART RATE: 135.0 bpm bpm. AMNIOTIC FLUID VOLUME: 27.1 cm (95th percentile is 24.8 cm) GESTATIONAL AGE: 34 weeks 1 days CONCLUSION: 1. Total biophysical profile score 8.0. 2. Polyhydramnios. Electronically authenticated by: ERNST SALES Date: 06/24/2023 12:07 Dictated By: Ernst Sales M.D. Signed By:06/24/23 1209 DD/ 06 TD/TT: Forging Press Setter Up: us Sarbjit Robledo DO [facility] Final Result documented in this encounter Visit Diagnoses Not on filedocumented in this encounter Care Teams Financial Aid Officer Relationship Specialty Start Date End Date Erika Keith PA [address] [place] [address] Dr Izquierdo, [facility]11 PCP - [facility] 05/05/24 documented as of this encounter
--- OUTSIDE RECORDS SUMMARY | 2024-11-04 15:20 | XMS_ITS | Clinical Summary ---
Author Organization [facility] Address [address] [place] [address] Care Team Providers Care Tape Maker Name Role Phone Unavailable Primary Care Provider Unavailabl e Allergies Active Allergy Reactions Criticality Noted Date Comments Iodine Hives High 08/08/2022 Latex Hives,Unknown Reaction 10/03/2015 Nickel Hives High 10/28/2022 Penicillins Unknown Reaction 06/06/1996 Shellfish Containing Products Hives,Unknown Reaction High 08/08/2022 Venom-Honey Bee Hives High 08/08/2022 Medications Ventolin HFA 90 mcg/actuation inhaler inhale 2 puffs by mouth and INTO THE LUNGS every 4 hours if needed 07/29/2022 Active dextroamphetamin e-amphetamine (ADDERALL) 10 mg tablet Take 1 tablet (10 mg total) by mouth daily. 07/04/2022 Active FeroSuL 325 mg (65 mg iron) tablet Take 1 tablet (325 mg total) by mouth. 06/26/2022 Active Advair Diskus 100-50 mcg/dose diskus inhaler inhale 1 puff by mouth and INTO THE LUNGS once daily 07/22/2022 Active ibuprofen (MOTRIN) 800 MG tablet 12/09/2022 Active Vitamin 27 mg iron- 0.8 mg Tab Take 1 tablet by mouth every morning. 12/04/2022 Active Active Problems Problem Noted Date Diagnosed Date Chronic tonsillitis 11/19/2022 Neck swelling 08/19/2022 Estimated Date of Delivery Comme nts Yes 11/25/2024 Encounters Date Type Department Care Team Description 08/30/2024 3:35 PM EDT - 08/30/2024 4:12 PM EDT Emergency [facility] [address] [place] [address] Markie Delaney DO Acute pain of left foot (Primary Dx) Discharge Disposition: Home or Self Care 08/30/2024 Travel from Last 3 Months Social History Tobacco Use Types Packs/Day Years Used Date Smoking Tobacco: Never Passive Smoke Exposure: Never Smokeless Tobacco: Never Tobacco Cessation:Counseling Given: Yes Alcohol Use Standard Drinks/Week Comments Not Currently 0 (1 standard drink = 0.6 oz pur e alcohol) Estimated Date of Delivery Comme nts Yes 11/25/2024 Sex and Gender Information Value Date Recorded Sex Assigned at Not on file Legal Sex Female 12:03 PM EDT Gender Identity Not on file Sexual Orientation Not on file Last Filed Vital Signs Vital Sign Reading Time Taken Comments Blood Pressure 119/77 08/30/2024 3:46 PM EDT Pulse 103 08/30/2024 3:46 PM EDT Temperature 36.8 C (98.2 F) 08/30/2024 3:46 PM EDT Respiratory Rate 16 12/10/2022 1:52 PM EDT Oxygen Saturation 99% 08/30/2024 3:46 PM EDT Inhaled Oxygen Concentration - - Weight 71.2 kg (157 lb) 08/30/2024 3:46 PM EDT Height 165.1 cm (5' 5 ) 08/30/2024 3:46 PM EDT Body Mass Index 26.13 08/30/2024 3:46 PM EDT Plan of Treatment Health Maintenance Due Date Last Done Comments Hepatitis B Vaccines (1 of 3 - 19+ 3-dose series) 09/20/2014 TDaP during 08/19/2024 Influenza Vaccine(s) (Season Ended) 2025 03/02/2015 Pap Smear 08/05/2027 08/04/2024, 11/14/2021 Shingles Vaccine (Non-Medicare; Age 50+ or All Ages Risk Series) (1 of 2) 09/20/2045 Hib Vaccines Aged Out No longer eligi ble based on patient's age to complete this topic Meningococcal (MCV4) Vaccines Aged Out No longer eligible based on patient's age to complete this topic Pneumococcal Vaccine (Pediatric Routine or All Ages Risk Series) Aged Out No longer eligible b ased on patient's age to complete this topic RSV for patients an d patients 60yrs or older (No Doses Required) Completed Procedures Procedure Name Priority Date/Time Associated Diagnosis Comments XRAY FOOT MINIMUM 3 VIEWS LEFT WILLIE 08/30/2024 3:59 PM EDT from Last 3 Months Results * Xray Foot Minimum 3 Views Left (08/30/2024 3:59 PM EDT) Anatomical Region Laterality Modality Foot Radiographic Elsi ging 08/30/2024 4:02 PM EDT Impressions 08/30/2024 4:04 PM EDT No acute finding. Interpretation by Markie Mckenzie M.D. Professional Interpretation by Radiology Reading Narrative 08/30/2024 4:04 PM EDT [facility] Diagnostic Imaging Report EXAM INFORMATION: Examination: [...] soft tissue swelling. No radiopaque foreign body. Procedure Note Markie Mckenzie MD - 08/30/2024 [facility] Diagnostic Imaging Report EXAM INFORMATION: Examination: [...] soft tissue swelling. No radiopaque foreign body. IMPRESSION: No acute finding. Interpretation by Markie Mckenzie M.D. Professional Interpretation by Radiology Reading [facility] O RDERABLES Final Result from Last 3 Months Insurance MEDICAID [place] [employer]
--- OUTSIDE RECORDS SUMMARY | 2024-11-04 15:20 | XMS_ITS | Encounter Summary ---
Author Organization [facility] Address [address] [place] [address] Care Team Providers Care Sde Name Role Phone Erika Keith Unavailable Encounter Details Date Type Department Care Team (Late st Contact Info) Description 07/08/2023 Clinisync Result Encounter [facility] External Department Unsolicited Sarbjit Robledo, DO [address] Taina Baker [place], [place] [id number] Social History Tobacco Use Types Packs/Day Years [...] Date/Time Associated Diagnosis Comments US OB GROWTH 07/08/2023 10:53 AM EST documented in this encounter Results * US OB GROWTH (07/08/2023 10:53 AM EST) Anatomical Region Laterality Modality Other 07/08/2023 10:5 3 AM EST Narrative 07/08/2023 10:56 [place] [address] Ultrasound Report Signed Patient: JOJO LOPEZ MR#: [id number] : 1995 Acct:[id number] Age/Sex: 27 / F ADM Date: 07/08/23 Loc: [facility] Attending Dr: Sarbjit Robledo D.O. Ordering Physician: Sarbjit Robledo D.O. Date of Service: 07/08/23 Procedure(s): US OB growth Accession Number(s): [id number] cc: Sarbjit Robledo D.O.; Jesu Santiago M.D. [place] [address] Patient Name: JOJO LOPEZ MRN: [id number] date: 1995 Sex: F Assigned [facility] Current [facility] Location: [facility] Accession/Order Number: [id number] Exam Date: 07/08/2023 10:07 Report Date: 07/08/2023 10:53 At the request of: SARBJIT ROBLEDO Procedure: US OB growth EXAMINATION: US OB growth HISTORY: LGA COMPARISON: 06/12/2023 FINDINGS: Heart Rate: 147.0 bpm Amniotic Fluid Volume: 24.7 cm , polyhydramnios Number: 1.0 Position: Transverse lie Maximum Vertical Pocket: 11.3 cm cm 1.6 cm cm 5.1 cm cm 6.7 cm cm BIOMETRY: BPD: 9.5 cm cm; 38 weeks 6 days; >97% HC: 33.9 cmcm; 39 weeks 0 days , 86% AC: 36.5 cm cm; 40 weeks 3 days, >97% FL: 7.2 cm cm; 37 weeks 0 days; 69.0 % % EFW: 3764.8 grams, 8 lbs. 5 oz., >97% FL/AC: 19.8 FL/BPD: 76.0 HC/AC: 0.9 GESTATIONAL AGE: Age by EDC: 36 weeks 1 days ADEN by EDC: 08/04/2023 Age by US: 38 weeks 6 days ADEN by US: 07/16/2023 US/US OB growth IMPRESSION: Large for gestational age Polyhydramnios Electronically authenticated by: HAMMAD FRAZIER Date: 07/08/2023 10:53 Dictated By: Hammad Frazier M.D. Signed By: 07/08/23 1056 DD/ 1053 TD/TT: Environmental Solutions Engineer: Procedure Note Radiology, Radiologist, - 07/08/2023 [place] [address] Ultrasound Report Signed Patient: JOJO LOPEZ RMR#: [id number] : 1995Acct:[id number] Age/Sex: 27 FADM Date: 07/08/23 Loc: [facility] Attending Dr: Sarbjit Robledo D.O. Ordering Physician: Sarbjit Robledo D.O. Date of Service: 07/08/23 Procedure(s): US OB growth Accession Number(s): [id number] cc: Sarbjit Robledo D.O.; Jesu Santiago M.D. The [place] [address] Patient Name: JOJO LOPEZ MRN: [id number] date: 1995 Sex: F Assigned Patient Location: [facility] Current Patient Location: [facility] Accession/Order Number: [id number] Exam Date: 07/08/2023 10:07 Report Date: 07/08/2023 10:53 At the request of: SARBJIT ROBLEDO Procedure: US OB growth EXAMINATION: US OB growth HISTORY: LGA COMPARISON: 06/12/2023 FINDINGS: Heart Rate: 147.0 bpm Amniotic Fluid Volume: 24.7 cm , polyhydramnios Number: 1.0 Position: Transverse lie Maximum Vertical Pocket: 11.3 cm cm 1.6 cm cm 5.1 cm cm 6.7 cm cm BIOMETRY: BPD: 9.5 cm cm; 38 weeks 6 days; >97% HC: 33.9 cmcm; 39 weeks 0 days , 86% AC: 36.5 cm cm; 40 weeks 3 days, >97% FL: 7.2 cm cm; 37 weeks 0 days; 69.0 % % EFW: 3764.8 grams, 8 lbs. 5 oz., >97% FL/AC: 19.8 FL/BPD: 76.0 HC/AC: 0.9 GESTATIONAL AGE: Age by EDC: 36 weeks 1 days ADEN by EDC: 08/04/2023 Age by US: 38 weeks 6 days ADEN by US: 07/16/2023 US/US OB growth IMPRESSION: Large for gestational age Polyhydramnios Electronically authenticated by: HAMMAD FRAZIER Date: 07/08/2023 10:53 Dictated By: Hammad Frazier M.D. Signed By:07/08/23 1056 DD/ 1053 TD/TT: Environmental Solutions Engineer: us Sarbjit Venkat DO [facility] Final Result documented in this encounter Visit Diagnoses Not on filedocumented in this encounter Care Teams Sde Relationship Specialty Start Date End Date Erika Keith PA [address] [place] [address] PCP - [facility] 05/05/24 documented as of this encounter
--- OUTSIDE RECORDS SUMMARY | 2024-11-04 15:20 | XMS_ITS ---
Author Organization [facility] Source Produ ction (ClinicalSummary Clone) Address Unknown Care Team Providers Care Db2 Dba Name Role Phone Unavailable Primary Care Physician Unavailab le Results * [UNITY] ANEUPLOIDY NIPT Performed by: [facility] Component Value Range Date Fraction 12.9% 06/03/2024 04 :16 am [facility] Sex Chromosome Aneuploidy NOT DETECTED 04:16 am UT Monosomy X LOW RISK <1 in 10,000 2024 04:16 am UT Trisomy 13 LOW RISK <1 in 10,000 2024 04:16 am UT Trisomy 18 LOW RISK <1 in 10,000 2024 04:16 am UT Trisomy 21 LOW RISK <1 in 10,000 2024 04:16 am UT Sex FEMALE 06/03/2024 04:1 6 am UT Gestation VIVAR 06/03/19 04:16 am [facility] For detailed report, see PDF See PDF 06/03/2024 04:16 am UTC 06/03/2024 04:1 6 am [facility] Social History Observation Value Start Date End Date
--- OUTSIDE RECORDS SUMMARY | 2024-11-04 15:20 | XMS_ITS | Encounter Summary ---
Author Organization [facility] Address [address] [place] [address] Care Team Providers Care Wet Process Miller Head Name Role Phone Erika Keith Unavailable Encounter Details Date Type Department Care Team (Late st Contact Info) Description 06/10/2023 Clinisync Result Encounter [facility] External Department Unsolicited Sarbjit Robledo, DO [address] Taina Baker [place], [place] [phone] Social History Tobacco Use Types Packs/Day Years [...] Diagnosis Comments US OB BPP W NON-STRESS 06/10/2023 11:52 AM EST documented in this encounter Results * US OB BPP W NON-STRESS (06/10/2023 11:52 AM EST) Anatomical Region Laterality Modality Other 06/10/2023 11:5 2 AM EST Narrative 06/10/2023 11:55 [place] [address] Ultrasound Report Signed Patient: JOJO LOPEZ MR#: [id number] : 1995 Acct:[id number] Age/Sex: 27 / F ADM Date: 06/10/23 Loc: [facility] 250-[address]: Sarbjit Robledo D.O. Ordering Physician: Sarbjit Robledo D.O. Date of Service: 06/10/23 Procedure(s): US OB BPP w non-stress Accession Number(s): [id number] cc: Sarbjit Robledo D.O.; Jesu Santiago M.D. The [place] [id number] Patient Name: JOJO LOPEZ MRN: [id number] date: 1995 Sex: F Assigned Patient Location: [facility] Current Patient Location: [facility] Accession/Order Number: [id number] Exam Date: 06/10/2023 11:21 Report Date: 06/10/2023 11:52 At the request of: SARBJIT ROBLEDO Procedure: US OB BPP w non-stress EXAMINATION: US OB BPP w non-stress HISTORY: EXCESSIVE GROWTH O36.63X1 COMPARISON: Ultrasound OB biophysical 06/03/2023 TECHNIQUE: Ultrasound biophysical profile was performed in the radiology department. BREATHING MOVEMENTS: 2.0 GROSS BODY MOVEMENTS: 2.0 TONE: 2.0 QUALITATIVE AMNIOTIC FLUID VOLUME: 2.0 PRESENTATION: BREECH HEART RATE: 150.8 bpm bpm. AMNIOTIC FLUID VOLUME: 27.2 cm (normal range <27.0 cm) GESTATIONAL AGE: 32 weeks 1 days CONCLUSION: 1. Total biophysical profile score 8.0. 2. Polyhydramnios. Electronically authenticated by: ERNST SALES Date: 06/10/2023 11:52 Dictated By: Ernst Sales M.D. Signed By: 06/10/23 1155 DD/ 1152 TD/TT: Director Of Retail Marketing: Procedure Note Radiology, Radiologist, - 07/09/2023 The [place] [id number] Ultrasound Report Signed Patient: JOJO LOPEZ RMR#: [id number] : 1995Acct:[id number] Age/Sex: 27 / FADM Date: 06/10/23 Loc: [facility] 250-[address]: Sarbjit Robledo D.O. Ordering Physician: Sarbjit Robledo D.O. Date of Service: 06/10/23 Procedure(s): US OB BPP w non-stress Accession Number(s): [id number] cc: Sarbjit Robledo D.O.; Jesu Santiago M.D. The [place] [address] Patient Name: JOJO LOPEZ MRN: [id number] date: 1995 Sex: F Assigned Patient Location: [facility] Current Patient Location: [facility] Accession/Order Number: [id number] Exam Date: 06/10/2023 11:21 Report Date: 06/10/2023 11:52 At the request of: SARBJIT ROBLEDO Procedure: US OB BPP w non-stress EXAMINATION: US OB BPP w non-stress HISTORY: EXCESSIVE GROWTH O36.63X1 COMPARISON: Ultrasound OB biophysical 06/03/2023 TECHNIQUE: Ultrasound biophysical profile was performed in the radiology department. BREATHING MOVEMENTS: 2.0 GROSS BODY MOVEMENTS: 2.0 TONE: 2.0 QUALITATIVE AMNIOTIC FLUID VOLUME: 2.0 PRESENTATION: BREECH HEART RATE: 150.8 bpm bpm. AMNIOTIC FLUID VOLUME: 27.2 cm (normal range <27.0 cm) GESTATIONAL AGE: 32 weeks 1 days CONCLUSION: 1. Total biophysical profile score 8.0. 2. Polyhydramnios. Electronically authenticated by: ERNST SALES Date: 06/10/2023 11:52 Dictated By: Ernst Sales M.D. Signed By:06/10/23 1155 DD/ 1152 TD/TT: Director Of Retail Marketing: us Sarbjit Robledo DO [facility] Final Result documented in this encounter Visit Diagnoses Not on filedocumented in this encounter Care Teams Wet Process Miller Head Relationship Specialty Start Date End Date Erika Keith PA [address] [place] [address] Dr Izquierdo, [facility] PCP - [facility] 05/05/24 documented as of this encounter
--- OUTSIDE RECORDS SUMMARY | 2024-11-04 15:20 | XMS_ITS | Encounter Summary ---
Author Organization [facility] Address [address] [place] [address] Care Team Providers Care Deputy Sheriff Generalist/Bailiff Name Role Phone Erika Keith Unavailable Encounter Details Date Type Department Care Team (Late st Contact Info) Description 06/17/2023 Clinisync Result Encounter [facility] External Department Unsolicited Sarbjit Robledo, DO [address] Taina Baker [place], [place] [id number] Social History Tobacco Use Types Packs/Day Years [...] Diagnosis Comments US OB BPP W NON-STRESS 06/17/2023 12:30 PM EST documented in this encounter Results * US OB BPP W NON-STRESS (06/17/2023 12:30 PM EST) Anatomical Region Laterality Modality Other 06/17/2023 12:3 0 PM EST Narrative 06/17/2023 12:33 [place] [address] Ultrasound Report Signed Patient: JOJO LOPEZ MR#: [id number] : 1995 Acct:[id number] Age/Sex: 27 / F ADM Date: 06/17/23 Loc: [facility] [address]: Sarbjit Robledo D.O. Ordering Physician: Sarbjit Robledo D.O. Date of Service: 06/17/23 Procedure(s): US OB BPP w non-stress Accession Number(s): [id number] cc: Sarbjit Robledo D.O.; Jesu Santiago M.D. The [place] [address] Patient Name: JOJO LOPEZ MRN: [id number] date: 1995 Sex: F Assigned Patient Location: US Current Patient Location: US Accession/Order Number: [id number] Exam Date: 06/17/2023 11:30 Report Date: 06/17/2023 12:30 At the request of: SARBJIT ROBLEDO Procedure: US OB BPP w non-stress EXAMINATION: US OB BPP w non-stress HISTORY: EXCESSIVE GROWTH COMPARISON: No relevant comparison available. TECHNIQUE: Ultrasound biophysical profile was performed in the radiology department. FINDINGS: BREATHING MOVEMENTS: 2.0 GROSS BODY MOVEMENTS: 2.0 TONE: 2.0 QUALITATIVE AMNIOTIC FLUID VOLUME: 2.0 PRESENTATION: TRANS RT HEART RATE: 148.4 bpm H.B./min AMNIOTIC FLUID VOLUME: 24.4 cm cm GESTATIONAL AGE: 33 weeks 1 days CONCLUSION: Total biophysical profile score: 8.0 Electronically authenticated by: HAMMAD FRAZIER Date: 06/17/2023 12:30 Dictated By: Hammad Frazier M.D. Signed By: 06/17/23 1233 DD/ 1230 TD/TT: Shredder Picker: Procedure Note Radiology, Radiologist, - 07/09/2023 [place] [address] Ultrasound Report Signed Patient: JOJO LOPEZ RMR#: [id number] : 1995Acct:[id number] Age/Sex: 27 / FADM Date: 06/17/23 Loc: [facility] 250-[address]: Sarbjit Robledo D.O. Ordering Physician: Sarbjit Robledo D.O. Date of Service: 06/17/23 Procedure(s): US OB BPP w non-stress Accession Number(s): [id number] cc: Sarbjit Robledo D.O.; Jesu Santiago M.D. [address] [id number] Patient Name: JOJO LOPEZ MRN: [facility]:[id number] date: 1995 Sex: F Assigned Patient Location: US Current Patient Location: US Accession/Order Number: [id number] Exam Date: 06/17/2023 11:30 Report Date: 06/17/2023 12:30 At the request of: SARBJIT ROBLEDO Procedure: US OB BPP w non-stress EXAMINATION: US OB BPP w non-stress HISTORY: EXCESSIVE GROWTH COMPARISON: No relevant comparison available. TECHNIQUE: Ultrasound biophysical profile was performed in the radiology department. FINDINGS: BREATHING MOVEMENTS: 2.0 GROSS BODY MOVEMENTS: 2.0 TONE: 2.0 QUALITATIVE AMNIOTIC FLUID VOLUME: 2.0 PRESENTATION: TRANS RT HEART RATE: 148.4 bpm H.B./min AMNIOTIC FLUID VOLUME: 24.4 cm cm GESTATIONAL AGE: 33 weeks 1 days CONCLUSION: Total biophysical profile score: 8.0 Electronically authenticated by: HAMMAD FRAZIER Date: 06/17/2023 12:30 Dictated By: Hammad Frazier M.D. Signed By:06/17/23 1233 DD/ 1230 TD/TT: Shredder Picker: Sarbjit Robledo DO [facility] Final Result documented in this encounter Visit Diagnoses Not on filedocumented in this encounter Care Teams Deputy Sheriff Generalist/Bailiff Relationship Specialty Start Date End Date Erika Keith PA [address] [place] [address] [place] [address] PCP - [facility] 05/05/24 documented as of this encounter
--- OUTSIDE RECORDS SUMMARY | 2024-11-04 15:20 | XMS_ITS | Referral Summary ---
Author Organization [facility] [employer] Address [address] [place] [address] Care Team Providers Care Electrical Controls Assembler Name Role Phone Unavailable Primary Care Provider Unavailabl e Encounters Date Type Department Care Team Description 08/30/2024 Travel 08/30/2024 3:35 PM EDT - 08/30/2024 4:12 PM EDT Emergency [facility] EMERGENCY DEPT [address] [place] [address] Markie Delaney DO Acute pain of left foot (Primary Dx) Discharge Disposition: Home or Self Care from Last 3 Months Allergies Active Allergy Reactions Criticality Noted Date [...] Date of Delivery Comme nts Yes 11/25/2024 Social History Tobacco Use Types Packs/Day Years [...] 08/30/2024 3:46 PM EDT Plan of Treatment Not on file Procedures Procedure Name Priority Date/Time Associated Diagnosis [...] Radiology Reading Narrative 08/30/2024 4:04 PM EDT Diagnostic Imaging Report EXAM INFORMATION: Examination: XRAY [...] Procedure Note Markie Mckenzie MD - 08/30/2024 Diagnostic Imaging Report EXAM INFORMATION: Examination: XRAY [...] Professional Interpretation by Radiology Reading Sivakumar [facility] DIAGNOSTIC IMAGING O [facility] Final Result from Last 3 Months Insurance [place] [employer] [place] [employer]
--- OUTSIDE RECORDS SUMMARY | 2024-11-04 15:20 | XMS_ITS | Encounter Summary ---
Author Organization [facility] Address [address] [facility]Note 2[facility] [address] Care Team Providers Care Dry Cleaning Manager Name Role Phone Erika Keith Unavailable Encounter Details Date Type Department Care Team (Late st Contact Info) Description 06/03/2024 Abstract [facility] BCP OB [address] [facility] [place] [address] Erika Keith PA [address] [place] [address] Dr [place], [facility] Social History Tobacco Use Types Packs/Day Years Used Date Smoking Tobacco: Never Smokeless Tobacco: Never Alcohol Use Standard Drinks/Week Comments Never 0 (1 standard drink = 0.6 oz pur e alcohol) Comments Unknown Sex and Gender Information Value Date Recorded Sex Assigned at Female 10/20/2022 3:45 PM EDT Legal Sex Female 11:47 PM EDT Gender Identity Female 10/20/2022 3:45 PM EDT Sexual Orientation Bisexual 10/20/2022 3: 45 PM EDT documented as of this encounter Plan of Treatment Not on file documented as of this encounter Visit Diagnoses Not on filedocumented in this encounter Care Teams Dry Cleaning Manager Relationship Specialty Start Date End Date Erika Keith PA [address] [place] [address] Dr [place], [place] [id number] PCP - [facility] 05/05/24 documented as of this encounter
--- OUTSIDE RECORDS SUMMARY | 2024-11-04 15:20 | XMS_ITS | Encounter Summary ---
Author Organization [facility] Address [address] [facility] [place] [address] Care Team Providers Care Rock Mason Name Role Phone Erika Keith Unavailable Encounter Details Date Type Department Care Team (Late st Contact Info) Description 05/27/2024 Abstract [facility] BCP OB [address] [facility] [place] [address] Sarbjit Robledo, DO [address] [facility] [address] Taina [place], [place] [id number] Social History Tobacco Use Types Packs/Day Years [...] on filedocumented in this encounter Care Teams Rock Mason Relationship Specialty Start Date End Date Erika Keith PA [address] [facility] [address] [place], [place] [phone] PCP - [facility] 05/05/24 documented as of this encounter
--- OUTSIDE RECORDS SUMMARY | 2024-11-04 15:20 | XMS_ITS | Encounter Summary ---
Author Organization [facility] Address [address] [facility] [place] [address] Care Team Providers Care Housekeeper Name Role Phone Erika Keith Unavailable Encounter Details Date Type Department Care Team (Late st Contact Info) Description 05/18/2024 Abstract [facility] BCP OB [address] [facility] [place] [address] Sarbjit Robledo, DO [address] [place]ain[place], [place] [id number] Social History Tobacco Use Types Packs/Day Years [...] on filedocumented in this encounter Care Teams Housekeeper Relationship Specialty Start Date End Date Erika Keith PA [address] [place], [place] [phone] PCP - [facility] 05/05/24 documented as of this encounter
--- OUTSIDE RECORDS SUMMARY | 2024-11-04 15:20 | XMS_ITS | Encounter Summary ---
Author Organization [facility] Address [address] [place] [address] Care Team Providers Care Customs Agent Name Role Phone Shiva Chan Unavailable Encounter Details Date Type Department Care Team (Late st Contact Info) Description 06/03/2023 Clinisync Result Encounter [facility] External Department Unsolicited Shiva Chan PA [address] [place] [address] [place], [place] [phone] Social History Tobacco Use Types Packs/Day Years [...] Diagnosis Comments US OB BPP W NON-STRESS 06/03/2023 11:51 AM EST documented in this encounter Results * US OB BPP W NON-STRESS (06/03/2023 11:51 AM EST) Anatomical Region Laterality Modality Other 06/03/2023 11:5 1 AM EST Narrative 06/03/2023 11:54 [place] [address] Ultrasound Report Signed Patient: JOJO LOPEZ MR#: [id number] : 1995 Acct:[id number] Age/Sex: 27 / F ADM Date: 06/03/23 Loc: [place] [address]- Attending Dr: Shiva Chan Ordering Physician: Shiva Chan Date of Service: 06/03/23 Procedure(s): US OB BPP w non-stress Accession Number(s): [id number] cc: Shiva Chan; Jesu Santiago M.D. The [place] [id number] Patient Name: JOJO LOPEZ MRN: [id number] date: 1995 Sex: F Assigned Patient Location: [facility] Current Patient Location: [facility] Accession/Order Number: [id number] Exam Date: 06/03/2023 11:08 Report Date: 06/03/2023 11:51 At the request of: SHIVA CHAN Procedure: US OB BPP w non-stress EXAMINATION: US OB BPP w non-stress HISTORY: Excessive growth COMPARISON: No relevant comparison available. TECHNIQUE: Ultrasound biophysical profile was performed in the radiology department. non-reactive stress testing was performed by nursing staff in the birthing center. FINDINGS: BREATHING MOVEMENTS: 2.0 GROSS BODY MOVEMENTS: 2.0 TONE: 2.0 QUALITATIVE AMNIOTIC FLUID VOLUME: 2.0 PRESENTATION: CEPHALIC HEART RATE: 159.8 bpm H.B./min AMNIOTIC FLUID VOLUME: 24.2 cm cm GESTATIONAL AGE: 31 weeks 1 days CONCLUSION: Total biophysical profile score: 8.0 Electronically authenticated by: HAMMAD FRAZIER Date: 06/03/2023 11:51 Dictated By: Hammad Frazier M.D. Signed By: 06/03/23 1154 DD/ 1151 TD/TT: Barrel Turner: Procedure Note Radiology, Radiologist, - 06/03/2023 The [place] [id number] Ultrasound Report Signed Patient: JOJO LOPEZ RMR#: [id number] : 1995Acct:[id number] Age/Sex: 27 / FADM Date: 06/03/23 Loc: [facility] 250-[address]: Shiva Chan Ordering Physician: Shiva Chan Date of Service: 06/03/23 Procedure(s): US OB BPP w non-stress Accession Number(s): [id number] cc: Shiva Chan; Jesu Santiago M.D. [address] [address] Patient Name: JOJO LOPEZ MRN: [id number] date: 1995 Sex: F Assigned Patient Location: [facility] Current Patient Location: [facility] Accession/Order Number: [id number] Exam Date: 06/03/2023 11:08 Report Date: 06/03/2023 11:51 At the request of: SHIVA CHAN Procedure: US OB BPP w non-stress EXAMINATION: US OB BPP w non-stress HISTORY: Excessive growth COMPARISON: No relevant comparison available. TECHNIQUE: Ultrasound biophysical profile was performed in the radiology department. non-reactive stress testing was performed by nursingstaff in the birthing center. FINDINGS: BREATHING MOVEMENTS: 2.0 GROSS BODY MOVEMENTS: 2.0 TONE: 2.0 QUALITATIVE AMNIOTIC FLUID VOLUME: 2.0 PRESENTATION: CEPHALIC HEART RATE: 159.8 bpm H.B./min AMNIOTIC FLUID VOLUME: 24.2 cm cm GESTATIONAL AGE: 31 weeks 1 days CONCLUSION: Total biophysical profile score: 8.0 Electronically authenticated by: HAMMAD FRAZIER Date: 06/03/2023 11:51 Dictated By: Hammad Frazier M.D. Signed By:06/03/23 1154 DD/ 1151 TD/TT: Barrel Turner: us Shiva PENA [facility] Final Result documented in this encounter Visit Diagnoses Not on filedocumented in this encounter Care Teams Customs Agent Relationship Specialty Start Date End Date Shiva Chan PA [address] [place], [place] [address] [address] [facility] 05/05/24 documented as of this encounter
--- OUTSIDE RECORDS SUMMARY | 2024-11-04 15:20 | XMS_ITS | Encounter Summary ---
Author Organization [facility] Address [address] [facility] [place] [address] Care Team Providers Care Zoology Technical Officer Name Role Phone Erika Keith Unavailable Encounter Details Date Type Department Care Team (Late st Contact Info) Description 11/01/[address] [facility] OB [address] [place] [address] Sarbjit Robledo, DO [address] [place], [place] [phone] Social History Tobacco Use Types Packs/Day Years [...] documented as of this encounter Care Teams Zoology Technical Officer Relationship Specialty Start Date End Date Erika Keith PA [address] [place] [address] Dr [place], [facility] PCP - [facility] 05/05/24 documented as of this encounter
--- OUTSIDE RECORDS SUMMARY | 2024-11-04 15:20 | XMS_ITS | Encounter Summary ---
Author Organization [facility] Address [address] [facility] [place] [address] Care Team Providers Care Cloth Boil Off Machine Operator Name Role Phone Erika Keith Unavailable Encounter Details Date Type Department Care Team (Late st Contact Info) Description 10/25/2024 Bamboo flowsheet [facility] OB [address] [facility] [place] [phone] Erika Keith PA [address] [facility] [place] [address] Social History Tobacco Use Types Packs/Day Years [...] documented as of this encounter Care Teams Cloth Boil Off Machine Operator Relationship Specialty Start Date End Date Erika Keith PA [address] [facility] [address] [place], [facility] PCP - [facility] 05/05/24 documented as of this encounter
== END 2024-11-04 15:18 | disposition home or self-care (01) ==
LOC: US 15:17
PROVIDERS: PCP Family Medicine; Visit Provider Obstetrics & Gynecology
DX: O99.283 Endocrine, nutritional and metabolic diseases complicating pregnancy, third trimester (principal); Z3A.37 37 weeks gestation of pregnancy; E07.9 Disorder of thyroid, unspecified
CPT/HCPCS: 76816

== ENCOUNTER 2024-11-08 10:25 | Inpatient (IN) | payer OTHER, SELFPAY ==
--- OUTSIDE RECORDS SUMMARY | 2024-11-01 13:48 | XMS_ITS ---
Author Name Auto Generated Organization OHIP Care Team Providers Care Acute Care Surgeon Name Role Phone MARY MARIE Attending Unavailable MARY MARIE Referring Unavailable MARY MARIE Attending Unavailable FRANK, MARY Attending Unavailable FRANK, MARY Attending Unavailable FRANK, MARY Referring Unavailable ROCIO, HSIVA Attending Unavailable FRANK, MARY Attending Unavailable ROCIO, SHIVA Attending Unavailable FRANK, MARY Attending Unavailable PROBLEMS DATE TYPE CONDITION / CODE ATTENDING STATUS MARTINEZ RCE 08/30/2024 Admitting Diagnosis Pain in left foot / M79.672(ICD-10) NA Active [facility] PROCEDURES No Procedure Records Found RESULTS US OB FOLLOW UP TRANSABDOMINAL APPROACH Observed: 2024 2:38 PM Status: F Source: [facility] EPIC Order Comment: US OB [...] II, MD, PHD at 21-Sep-2024 11:00:15 PM [facility] XRAY FOOT MINIMUM 3 VIEWS LEFT Observed: 08/30/2024 3:58 PM Status: F Source: [facility] Diagnostic Imaging Report EXAM INFORMATION: Examination: [...] 0 07/07/2024 2:31 PM Status: F Source: [facility] EPIC Order Comment: US OB [...] II, MD, PHD at 08-Jul-2024 10:38:23 AM [facility] US OB < 14 WEEKS EARLY Observed: 025 10:01 AM Status: F Source: [facility] EPIC Order Comment: US OB [...] age of 14 weeks. Dictated and transcribed 05/27/24/dpd This report has been electronically signed and approved by the interpreting radiologistGulshan SHAY Observed: 11/27/2023 2:34 PM Status: F Source: [facility] [place] [address] Office Visit Report Signed Patient Name: Jojo Lopez Medical Record #: [id number] Date of : 1995 Age/Sex: 28 / F Date of Service: Location: [facility] Urgent Care Attending physician: Arpita CASTROP-Olivia Intake Vital Signs 11/27/23 14:39 Height 5 [...] List - Last Reconciled 11/27/23 by Iris Baird ibuprofen 800 mg tablet 800 mg PO Q6H PRN quetiapine 50 mg tablet 50 mg PO BEDTIME sertraline 50 mg tablet 50 mg PO DAILY Is patient having pain: No Is last menstrual period known: Yes Patient : Yes (a chance) Do you need a note to return to daycare/school/sports/work: No Nurse's Note: Patient presents for work physical [facility] Medical History (Updated 11/27/23 @ 14:38 by [...] Yes Non-Prescribed Substance Use: Denies Use HPI fairlawn px HPI Details Type he sees Nessa nurse HPI Comments History of Present Illness Details 28-year-old female presents with request for [employer] work physical. 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 She has a history of ADHD and [...] Plan: 28-year-old female presents with request for [employer] work physical. 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 She has a history of ADHD and [...] By: <Electronically signed by JOANN Aguilar> 11/27/23 0696 Cosigned By (if applicable): [id number] cc: JOANN Vicente ALLERGIES DATE TYPE / CODE NAME / CODE REACTION SEVERITY SOURCE 10/28/2022 DRUG INGREDI/8552922 03(SNOMED CT) NICKEL [facility] 08/08/2022 DRUG INGREDI/[id number] 03(SNOMED CT) IODINE [facility] 08/08/2022 Drug Class/974668580 (SNOMED CT) SHELLFISH CONTAINING PRODUCTS [facility] 08/08/2022 DRUG INGREDI/5238477 03(SNOMED CT) VENOM-HONEY BEE [facility] 10/03/2015 DRUG INGREDI/7114392 03(SNOMED CT) LATEX [facility] and [facility] 06/06/1996 Drug Class/214649935 (SNOMED CT) PENICILLINS Unknown [facility] als and [facility] ENCOUNTERS ADMIT/DISCHARGE ACCOUNT NUMBER ADMITTING ENCOUNTER CLASS LOCATION SOURCE 11/01/2024/ 5 [id number] Ambulatory Building:[facility] EPIC 10/25/2024/ 5 [id number] Ambulatory Building:[facility] EPIC 10/06/2024/ 5 [id number] Ambulatory Building:[facility] EPIC 09/21/2024/ 5 [id number] Ambulatory Building:[facility] EPIC 09/21/2024/ 5 [id number] Ambulatory Building:[facility] EPIC 09/08/2024/ 5 [id number] Ambulatory Building:[facility] EPIC 08/30/2024/ 5 [id number] Emergency Building:[facility] HEDRoom: LJ61Sjt: ED05 [facility] 08/04/2024/ 5 [id number] Ambulatory Building:[facility] EPIC 07/07/2024/ 5 [id number] Ambulatory Building:[facility] EPIC 07/07/2024/ 5 [id number] Ambulatory Building:[facility] EPIC 06/10/2024/ 5 [id number] Ambulatory Building:[facility] EPIC 05/27/2024/ 5 [id number] Ambulatory Building:[facility] EPIC 05/27/2024/ 5 [id number] Ambulatory Building:[facility] PAYERS ENCOUNTER GUARANTOR PAYER SUBSCRIBER SOURCE 11/01/2024 JOJO BURGESSB: [id number] [address] [address]Lmy: (hp) Primary Insurance:[employer] MEDICAIDPolicy Number: [id number] Date:2022-01-14 JOJO LOPEZDOB: [id number] [address] [address] [facility] 10/25/2024 JOJO BURGESSB: [id number] [address] [address]Xzx: (HP) Primary Insurance:[facility] MEDICA[facility]Policy Number: [id number] Date:2022-01-14 ALEIAH GELDINEDOB: [id number] [address] [address] [facility] EPIC 10/06/2024 ALEIAH GELDINEDOB: [address] [address]Yjw: (HP) Primary Insurance:[facility] MEDICAIDPolicy Number: [id number] Date:2022-01-14 ALEIAH GELDINEDOB: [id number] [address] [address] [facility] EPIC 2024 ALEIAH GELDINEDOB: [address] [address]Pxn: (HP) Primary Insurance:[facility] MEDICAIDPolicy Number: [id number] Date:2022-01-14 ALEIAH GELDINEDOB: [id number] [address] [address] [facility] EPIC 2024 ALEIAH GELDINEDOB: [address] [address]Jxu: (HP) Primary Insurance:[facility] MEDICAIDPolicy Number: [id number] Date:2022-01-14 ALEIAH GELDINEDOB: [id number] [address] [place] [address] [facility] EPIC 09/08/2024 ALEIAH GELDINEDOB: [address] [address]Mgp: (HP) Primary Insurance:[employer] MEDICAIDPolicy Number: [id number] Date:2022-01-14 ALEIAH GELDINEDOB: [id number] [address] [address] [facility] EPIC 08/30/2024 ALEIAH R GELDINEDOB: [address] [place] [address]Hxb: (HP) Primary Insurance:MEDICAID OUT OF STATEPolicy Number: [id number] Date:2022-08-08 JOJO R GELDINEDOB: [id number] [address] [place] [address] [facility] 08/04/2024 ALEKATHLEEN GELDINEDOB: [address] [address]Avk: (HP) Primary Insurance:[facility] MEDICA[place]Policy Number: [id number] Date:2022-01-14 ALEIAH GELDINEDOB: [id number] [address] [address] [facility] EPIC 07/07/2024 ALEIAH GELDINEDOB: [address] [address]Gxa: (HP) Primary Insurance:[facility] MEDICAIDPolicy Number: [id number] Date:2022-01-14 ALEIAH GELDINEDOB: [id number] [address] [address] [facility] EPIC 07/07/2024 ALEIAH GELDINEDOB: [id number] [address] [address]Pur: (HP) Primary Insurance:[employer] MEDICAIDPolicy Number: [id number] Date:2022-01-14 ALEIAH GELDINEDOB: [id number] [address] [address] [facility] EPIC 06/10/2024 ALEIAH GELDINEDOB: [id number] [address] [address]Ivp: (HP) Primary Insurance:[employer] MEDICAIDPolicy Number: [id number] Date:2022-01-14 ALEIAH GELDINEDOB: [id number] [address] [address] [facility] EPIC 05/27/2024 ALEKATHLEEN GELDINEDOB: [id number] [address] [address]Rfy: (HP) Primary Insurance:[employer] MEDICAIDPolicy Number: [id number] Date:2022-01-14 FREDAIACaitlyn GELDINEDOB: [id number] [address] [address] [facility] EPIC 05/27/2024 JOJO GELDINEDOB: [id number] [address] [address]Tbm: (HP) Primary Insurance:[employer] MEDICAIDPolicy Number: [id number] Date:2022-01-14 JOJO GELDINEDOB: [id number] [address] [address] [facility] EPIC
[2024-11-08] VITALS (29 sets, daily range): BP systolic 99–128; BP diastolic 49–81; PULSE 78–110; TEMP 36.3–36.5; O2SAT 95–98
[2024-11-08] MEDS: 0.9 % SODIUM CHLORIDE 1,000 ML 1000 ML IV ×2 (10:53→11:33)
[2024-11-08 11:00] LABS: Hematocrit 27.0 % (36.0-48.0); Hemoglobin 8.8 g/dL (12.0-16.0); Immature Granulocytes Abs Auto 0.28 10^3/uL (0.00-0.03); Immature Granulocytes Pct Auto 2.6 % (0.0-0.5); Lymphocytes Absolute Auto 1.3 10^3/uL (1.2-3.8); Mean Corpuscular HGB Conc 32.6 g/dL (29.9-35.2); Mean Corpuscular Hemoglobin 27.8 pg (26.7-34.0); Mean Corpuscular Volume 85.2 fL (81.0-99.0); Platelet Count 291 10^3/uL (150-450); Red Blood Count 3.17 10^6/uL (4.20-5.40); White Blood Count 10.6 10^3/uL (4.0-11.0)
[2024-11-08 11:20] LABS: Cannabinoid Screen Urine NEGATIVE (NEGATIVE); Methamphetamines Screen Urine NEGATIVE (NEGATIVE); Tricyclic Antidepressant Urine NEGATIVE (NEGATIVE)
[2024-11-08] MEDS: 0.9 % SODIUM CHLORIDE 1,000 ML 125 ML IV (12:40)
[2024-11-08] MEDS: FAMOTIDINE/PF 20 MG/2 ML VIAL IV (12:48)
[2024-11-08] MEDS: METOCLOPRAMIDE HCL 10 MG/2 ML VIAL IVP (12:48)
[2024-11-08] MEDS: CITRIC ACID/SODIUM CITRATE 30 ML SOLUTION ORACIT SHOHL'S SOLN PO (13:26)
[2024-11-08] MEDS: CLINDAMYCIN PHOSPHATE/D5W 900 MG/50 ML PREMIX 100 MG IV ×2 (13:27→22:30)
--- NOTE | 2024-11-08 14:24 | PM.ONB ---
Brief Operative Note Date of procedure: 11/08/24 Pre-op diagnosis general: iup at term gestation, previous c/s, desires permanent sterilization Post-op diagnosis: same as pre-op Procedure: NAME OF PROCEDURE: [ section with bilateral salpingectomy ] PROCEDURE: Patient was taken back to the Operating Room where she was given a spinal anesthesia with Duramorph without difficulty. She was prepped and draped in the normal sterile fashion. A Pfannenstiel skin incision was then made 2?cm above the symphysis pubis and carried down to underlying rectus fascia using a Bovie. The fascia was incised in the midline and extended laterally using Castaneda scissors. Two Cuco clamps were placed on the superior aspect of the fascia and dissected off the underlying rectus muscles. The same was performed on the inferior aspect as well. The muscles were then in the midline. Peritoneum was identified and entered bluntly. The peritoneum was then extended superiorly and inferiorly with good visualization of the bladder. The bladder blade was inserted. Vesicouterine peritoneum was identified, tented up, and entered with Metzenbaum scissors. A bladder flap was then created digitally. The bladder blade was reinserted. A low transverse incision was made on the patient's uterus and extended laterally digitally. The infant was then delivered atraumatically after the bladder blade was removed in the cephalic position. The cord was clamped and cut. Cord blood was obtained. The was handed off to awaiting team. The patient's placenta was spontaneously delivered. The uterus was then exteriorized. The uterus was cleared of all clots and debris. The bladder blade was reinserted. The patient's uterine incision was closed using #0 Vicryl in a running lock fashion. Excellent hemostasis was assured.? The rt tube was identified and grasped with babock, the ligasure was used to transect and ligate the tube in its entirity, this was done on the contralateral side as well. The uterus was then returned to the patient's abdomen. The patient's abdomen was copiously irrigated using warm saline. Peritoneal gutters were cleared of all clots and debris. Again excellent hemostasis was assured. The patient's fascia was closed using #0 Vicryl in a running fashion. The patient's skin was closed using 4-0 Vicryl subcuticularly. The patient tolerated the procedure well. Sponge, lap, and needle counts were correct x2. The patient was taken to the Recovery Room in stable condition. Anesthesia: spinal Surgeon: Sarbjit Robledo Electrical Power Station Technician: Daylin Gonzalez Estimated blood loss (mL): 575 Pathology: other (bilateral tubes) Condition: stable Disposition: PACU Urinary Catheter Management Urinary Catheter Management Urethral: Cath placed during this visit: no
--- NOTE | 2024-11-08 14:25 | P.OBPRC_ITS ---
Procedure Pre-op/Post-op diagnoses: Pre-Op/Post-Op Diagnoses Operation Date: 11/08/24 12:30 <No data on this case meets the specified criteria> Procedure: Procedures Operation Date: 11/08/24 12:30 Actual Procedure Side Surgeon p Repeat , Bilateral Salpingectomy Bilateral Sarbjit Robledo DO Interior Systems Carpenter: Daylin Gonzalez Estimated blood loss (mL): 575 Disposition: PACU Anesthesia type: Spinal
[2024-11-08] MEDS: KETOROLAC TROMETHAMINE 30 MG/ML VIAL IVP (20:11)
[2024-11-08] MEDS: SERTRALINE HCL 50 MG TABLET PO (22:31)
[2024-11-09 00:41] VITALS: BP 119/69; TEMP 37.1; O2SAT 97
[2024-11-09] MEDS: ENOXAPARIN SODIUM 40 MG/0.4 ML SYRINGE SUBQ (02:24)
[2024-11-09] MEDS: KETOROLAC TROMETHAMINE 30 MG/ML VIAL IVP ×4 (02:25→22:50)
[2024-11-09 04:09] VITALS: BP 110/69; TEMP 37; O2SAT 97
[2024-11-09] MEDS: LEVOTHYROXINE SODIUM 100 MCG TABLET PO (06:21)
[2024-11-09 06:49] LABS: Mean Corpuscular HGB Conc 32.5 g/dL (29.9-35.2); Mean Corpuscular Hemoglobin 27.5 pg (26.7-34.0); Mean Corpuscular Volume 84.5 fL (81.0-99.0); Platelet Count 234 10^3/uL (150-450); Red Blood Count 2.51 10^6/uL (4.20-5.40); White Blood Count 14.9 10^3/uL (4.0-11.0)
[2024-11-09 07:02] LABS: Hematocrit 21.2 % (36.0-48.0); Hemoglobin 6.9 g/dL (12.0-16.0)
[2024-11-09 07:38] VITALS: BP 135/78; TEMP 36.6
[2024-11-09 07:49] LABS: Basophils Abs Manual 0.00 10^3/uL (0.00-0.10); Basophils Percent Manual 0.0 % (0.2-2.0); Eosinophils Absolute Manual 0.00 10^3/uL (0.00-0.70); Eosinophils Percent Manual 0.0 % (0.9-7.0); Lymphocytes Absolute Manual 2.08 10^3/uL (1.20-3.80); Lymphocytes Percent Manual 14.0 % (20.5-60.0); Monocytes Absolute Manual 0.74 10^3/uL (0.30-0.80); Monocytes Percent Manual 5.0 % (1.7-12.0); Segmented Neut Absolute Manual 12.06 10^3/uL (1.4-6.5); Segmented Neutrophils % Manual 81.0 (43.0-75.0)
--- NOTE | 2024-11-09 08:58 | P.OBPN_ITS ---
OB - PN: Subj Subjective Patient comments: no complaints [place] status: doing well [place] feeding status: exclusively Exam Constitutional Vital Signs, click to edit/add: Last Vital Signs Temp 98.6 F 11/09/24 04:09 Pulse 78 11/08/24 16:50 Resp 16 11/08/24 20:09 BP 110/69 11/09/24 04:09 Pulse Ox 97 11/09/24 04:09 O2 Del Method Room Air 11/08/24 16:25 Documenting provider has reviewed patient's vital signs: yes Common normals: no apparent distress General appearance: cooperative and comfortable Orientation/consciousness: Yes awake, Yes oriented to person, Yes oriented to place and Yes oriented to time HENMT Common normals: normocephalic Eye Common normals: EOMs intact bilaterally General eye: normal appearance of both eyes Neck & C-Spine Common normals: full ROM and no lymphadenopathy Lymph Lymphatic: no lymphadenopathy noted Chest Common normals: inspection of chest normal Respiratory Common normals: normal respiratory effort, no retractions, no use of accessory muscles and clear to auscultation bilaterally Effort & inspection: able to speak in complete sentences Auscultation: clear to auscultation bilaterally Cardio Common normals: regular rate and regular rhythm Rate: regular rate Rhythm: regular rhythm GI Common normals: Normal to inspection, nondistended, normoactive bowel sounds present, soft to palpation and non-tender Inspection: normal to inspection Auscultation: normoactive bowel sounds Palpation: soft Rectal Exam - Female: deferred Common normals: no CVA tenderness Back & Pelvis Common normals: no CVA tenderness Extremity Common normals: normal to inspection, full ROM and normal capillary refill Neuro Common normals: oriented x3 Sensorium/orientation: awake, alert, oriented to person, oriented to place and oriented to time Psych Common normals: mental status grossly normal, thought process normal, cooperative, affect normal, speech normal, activity/motor behavior normal, denies hallucinations, denies homicidal ideation and denies suicidal ideation Appearance: grossly normal and well kempt Attitude: calm Activity/motor behavior: appropriate eye contact Speech: normal speech Thought process: normal thought process Results Labs Labs: Short CBC 11/08/24 11/09/24 Range/Units 10:45 06:34 WBC 10.6 14.9 H (4.0-11.0) 10^3/uL Hgb 8.8 L 6.9 L* (12.0-16.0) g/dL Hct 27.0 L 21.2 L* (36.0-48.0) % Plt Count 291 234 (150-450) 10^3/uL Urinary Catheter Management Urinary Catheter Management Urethral: Cath placed during this visit: yes Urethral indwelling: No Insertion date: 11/08/24 Insertion time: 13:42 OB - PN: A/P Assessment and Plan (1) S/P repeat low transverse : Plan - Plan: routine postop care Time Spent with Patient Time: Total time spent is greater than 50% in coordination of care (as documented) at patient's floor/unit and/or counseling patient: Total time spent with greater than 50% in coordination of care (as documented) at patient's floor/unit and/or counseling patient: less than 15 minutes
[2024-11-09] MEDS: VALACYCLOVIR HCL 500 MG TABLET PO (09:39)
[2024-11-09] MEDS: DOCUSATE SODIUM 100 MG CAPSULE PO ×2 (09:39→22:48)
--- NOTE | 2024-11-09 13:27 | PC.NURSE ---
Jojo nye has breastfed all her children and does not have questions. States nipples are chapped. Offered lanolin and soothies for nipple care. States otherwise is doing well.
[2024-11-09 14:54] VITALS: BP 115/66; TEMP 36.6
[2024-11-09 15:25] VITALS: O2SAT 97
[2024-11-09] MEDS: SERTRALINE HCL 50 MG TABLET PO (22:48)
[2024-11-09 22:55] VITALS: BP 117/77; PULSE 79; TEMP 37.2
[2024-11-10] MEDS: ENOXAPARIN SODIUM 40 MG/0.4 ML SYRINGE SUBQ (05:08)
[2024-11-10] MEDS: KETOROLAC TROMETHAMINE 30 MG/ML VIAL IVP ×2 (05:08→11:16)
[2024-11-10] MEDS: LEVOTHYROXINE SODIUM 100 MCG TABLET PO (06:42)
[2024-11-10 07:23] VITALS: BP 135/79
[2024-11-10 07:31] VITALS: TEMP 36.7
--- NOTE | 2024-11-10 07:44 | PM.OBPN ---
OB - PN: Subj Subjective Patient comments: no complaints and pain well controlled [place] status: doing well Exam Constitutional Vital Signs, click to edit/add: Last Vital Signs Temp 98.1 F 11/10/24 07:31 Pulse 79 11/09/24 22:55 Resp 16 11/10/24 07:31 BP 135/79 11/10/24 07:23 Pulse Ox 97 11/09/24 15:25 O2 Del Method Room Air 11/10/24 07:31 Documenting provider has reviewed patient's vital signs: yes Common normals: no apparent distress Respiratory Common normals: clear to auscultation bilaterally Cardio Common normals: regular rate and regular rhythm GI Common normals: Normal to inspection, nondistended, normoactive bowel sounds present Extremity Common normals: no clubbing, cyanosis or edema and no calf tenderness Urinary Catheter Management Urinary Catheter Management Urethral: Cath placed during this visit: yes, but has since been removed by the nurse Urethral indwelling: No Insertion date: 11/08/24 Insertion time: 13:42 Removal date: 11/09/24 Removal time: 09:30 OB - PN: A/P Assessment and Plan (1) S/P repeat low transverse : Plan - day: 2 Plan: routine postop care, discharge home and other (fu 1wk) Time Spent with Patient Time: Total time spent is greater than 50% in coordination of care (as documented) at patient's floor/unit and/or counseling patient: Total time spent with greater than 50% in coordination of care (as documented) at patient's floor/unit and/or counseling patient: less than 15 minutes
[2024-11-10] MEDS: DOCUSATE SODIUM 100 MG CAPSULE PO (08:39)
[2024-11-10] MEDS: VALACYCLOVIR HCL 500 MG TABLET PO (08:39)
== END 2024-11-10 16:15 | disposition home or self-care (01) | DRG 539 ==
PROVIDERS: Admitting Provider Obstetrics & Gynecology; PCP Family Medicine; Visit Provider Obstetrics & Gynecology
PROC: 10D00Z1 Extraction of Products of Conception, Low, Open Approach (ICD-10-PCS; CPT 59514; principal; 2024-11-08 12:30)
DX: O34.211 Maternal care for low transverse scar from previous cesarean delivery (principal); Z37.0 Single live birth; Z30.2 Encounter for sterilization; O99.284 Endocrine, nutritional and metabolic diseases complicating childbirth; E03.9 Hypothyroidism, unspecified; Z79.890 Hormone replacement therapy; Z3A.37 37 weeks gestation of pregnancy
CPT/HCPCS: 36415; 51702; 64488; 80307; 85007; 85025; 85027; 85461; 86850; 86900; 86901; 88302; 94667; J0131; J0665; J0736; J1100; J1650; J1885; J2274; J2371; J2405; J2765; J3490